=== PATIENT | female | born 1945 | race Caucasian/White ===

== ENCOUNTER 2022-11-03 12:59 | Outpatient (OUT) | payer MEDICARE, SELFPAY ==
--- NOTE | 2022-11-03 16:26 | MISC_ITS ---
CONSULTATION DATE: ??11/03/2022 TO:? Heaven CalderonVICKIE CHIEF COMPLAINT:? Includes left lower back pain. HISTORY:? She reports the pain as being 5-7/10 pain, sharp in character, increased with activities such as standing, walking and performing transitioning maneuvers.? She feels most comfortable in the semi-recumbent position.? She denies any change in bowel and bladder habits or new sensorimotor changes in the lower extremities.? EXAMINATION:? Notable for patient having no clinical radiculopathy or myelopathy involving the lower extremities.? Patient had severe pain with lumbar facet joint loading maneuvers on the left side at L2-3 and L3-4, with associated myofascial spasm of the lumbar paravertebral muscles. IMPRESSION:? Our impression is patient appears to have chronic pain secondary to lumbosacral spondylosis with facet joint loading pain clinically, left greater than right, at L2-3, L3-4; post laminectomy syndrome and lastly myofascial spasm.? RECOMMENDATIONS:? I have recommended a diagnostic left sided L2-3, L3-4 facet joint injection.? Proceed with lumbar spine films, flexion/extension views to evaluate the integrity of the fusion construct.? Placed on baclofen 10 mg pills, half to one b.i.d. for myofascial spasm.? I have asked her to discontinue Lyrica secondary to ineffectiveness. As part of providing excellent, safe, comprehensive care, the following was completed at our patient's visit: 1. A medication reconciliation and review to ensure accurate knowledge of current/active medications, including asking our patients to inform us about any fgcw-pzk-ydoxzfy medications or herbal remedies/nutritional supplements/alternative remedies. 2. A review to specifically ensure our patients have had annual screening for: elevated body mass index (BMI, see intake chart for exact total), tobacco use, screening for depression, and screening for unhealthy alcohol use.? When screening is concerning, patients are provided with education and the specific recommendation to discuss the concerning health issue and treatment options with their primary care provider. BRANDON
== END 2022-11-03 13:00 ==
PROVIDERS: PCP Nurse Practitioner Family; Visit Provider Anesthesiology Pain Medicine
DX: M96.1 Postlaminectomy syndrome, not elsewhere classified (principal); Z98.1 Arthrodesis status; M51.36 Other intervertebral disc degeneration, lumbar region; M54.50 Low back pain, unspecified; M47.815 Spondylosis without myelopathy or radiculopathy, thoracolumbar region; G89.29 Other chronic pain
CPT/HCPCS: 72110; G0463

== ENCOUNTER 2022-11-03 13:56 | Outpatient (OUT) | payer MEDICARE, SELFPAY ==
--- NOTE | 2022-11-03 14:12 | XR_ITS ---
The [address] [address] Patient Name: SAUL GUTIÉRREZ MRN: [id number] date: 1945 Sex: F Assigned Patient Location: [facility] Current Patient Location: [facility] Accession/Order Number: [id number] Exam Date: 11/03/2022 14:15 Report Date: 11/04/2022 06:38 At the request of: MILIND OGDEN Procedure: XR lumbar spine min 4V EXAMINATION: XR lumbar spine min 4V HISTORY: Post Lami Syndrome ; chronic low back pain COMPARISON: CT abdomen pelvis 05/17/2022 min FINDINGS: BONES: Slight left convex curvature lumbar spine. Posterior mechanical fusion L3-4. Mild grade 1 anterolisthesis of L2 on 3, L3 on 4, L4 on 5. No significant change in alignment during flexion and extension. Moderate degenerative facet arthropathy L4-5, L5-S1. DISC SPACES: Moderate narrowing L2-3 through L4-5. Marked narrowing L5-S1. Intervertebral disc spacer L3-4. PARASPINOUS: Negative. No paraspinous abnormality is seen. OTHER: Negative. IMPRESSION: 1. Stable L3-4 posterior fusion without evidence of hardware failure. 2. Multilevel mild grade 1 anterior listhesis without appreciable change during flexion and extension. 3. Multilevel moderate marked degenerative disc disease; not appreciably changed. Electronically authenticated by: OSWALDO NUGENT Date: 11/04/2022 06:38
== END 2022-11-03 13:57 ==
PROVIDERS: PCP Nurse Practitioner Family; Visit Provider Anesthesiology Pain Medicine
DX: M96.1 Postlaminectomy syndrome, not elsewhere classified (principal); Z98.1 Arthrodesis status; M51.36 Other intervertebral disc degeneration, lumbar region
CPT/HCPCS: 72110

== ENCOUNTER 2022-11-24 07:23 | Day surgery (SDC) | payer MEDICARE, SELFPAY ==
[2022-11-24 07:45] VITALS: BP 131/78; PULSE 67; RESP 16; TEMP 36.2
--- NOTE | 2022-11-24 08:20 | W.PM.PROCNOT ---
Date of procedure: 11/24/22 Procedure: Left Lumbar 2/3 & 4/5 facet injection Preop diagnosis includes pain secondary to lumbar spondylosis, Postop diagnosis same Under fluoroscopic guidance Solution injected: 2milliliters Marcaine 0.25% Anesthesia :none Immediate complications none Time out process compliant After informed consent obtained from the patient placed in the Prone proposition . area was prepped and draped in a sterile fashion using betadine. 25 gauge spinal needle inserted over each of the above mentioned target areas . [place] were directed towards the target under fluoroscopic guidance . after encountering each of the targets , no indication of intravascular intraneuronal or intrathecal needle tip placement. Then 0 .5 to 1 Milliliter was injected at each level. [place] removed postoperatively. patient transferred to recovery in stable condition to be discharged home after meeting criteria Surgeon: Jeramie Roberts
[2022-11-24 08:46] VITALS: RESP 20
[2022-11-24] MEDS: BUPIVACAINE HCL 0.25% PF 25 MG/10 ML VIAL 4 ML INJ (08:47)
[2022-11-24 08:48] VITALS: BP 146/78; PULSE 76; O2SAT 96
[2022-11-24 08:49] VITALS: BP 144/65; PULSE 68; O2SAT 95
== END 2022-11-24 08:54 | disposition home or self-care (01) ==
PROVIDERS: PCP Nurse Practitioner Family; Visit Provider Anesthesiology Pain Medicine
DX: M47.816 Spondylosis without myelopathy or radiculopathy, lumbar region (principal)
CPT/HCPCS: 64493; 64494

== ENCOUNTER 2022-12-02 09:21 | Outpatient (OUT) | payer MEDICARE, SELFPAY ==
[2022-12-02 10:35] LABS: Anion Gap 14.7; BUN Creatinine Ratio 35.6; Calcium 9.1 mg/dL (8.5-10.1); Carbon Dioxide 21.7 mmol/L (21.0-32.0); Chloride 109 mmol/L (98-107); Estimated GFR (African America 46 (>=60); Estimated GFR (Non-African Ame 38 (>=60); Glucose 105 mg/dL (74-106); Potassium 4.4 mmol/L (3.5-5.1); Sodium 141 mmol/L (136-145)
== END 2022-12-02 09:22 | disposition home or self-care (01) ==
LOC: LAB 09:23
PROVIDERS: PCP Nurse Practitioner Family; Visit Provider Internal Medicine Interventional Cardiology
DX: I50.20 Unspecified systolic (congestive) heart failure (principal)
CPT/HCPCS: 36415; 80048

== ENCOUNTER 2022-12-10 11:26 | Outpatient (OUT) | payer MEDICARE, SELFPAY ==
--- NOTE | 2022-12-10 11:54 | PM.CN ---
Consult Note: HPI Data of Consult Patient: known to practice within the last 3 years Consult date: 12/10/22 Requesting Physician: JOSE BRAR NP Primary Care Provider: FIDELINA STALEY Consult Narrative Narrative: Here for f/u to left lumbar MBB L2,3,4 done 11/24/22. She received 80% relief of pain with increased fx for several hours post procedure. She would like to proceed with second MBB of same area. Pain is low back worse with standing and sitting. No new sensorimotor or bowel or bladder issues. No adverse med SE. Medications assist patient to be able to complete ADLs. No radicular sx. cc:: CC: JOSE BRAR NP Review of Systems ROS Status of ROS 10 or more systems reviewed and unremarkable except as noted in history and below Musculoskeletal Reports: back pain PFSH PFSH Medical History (Updated 12/10/22 @ 12:03 by JOSE BRAR NP) Surgical History Meds Home Medications and Allergies Home Medications Medication Instructions Recorded Confirmed Type acetaminophen 500 mg oral powder 1,000 mg PO Q6H 11/03/22 11/03/22 History packet baclofen 10 mg tablet 10 mg PO BID 11/03/22 11/03/22 History cholecalciferol (vitamin D3) 125 5,000 unit PO DAILY 11/03/22 11/03/22 History mcg (5,000 unit) capsule diclofenac sodium 50 mg 50 mg PO DAILY 11/03/22 11/03/22 History tablet,delayed release furosemide 40 mg tablet (Lasix) 40 mg PO BID 11/03/22 11/03/22 History krill 2 cap PO DAILY 11/03/22 11/03/22 History uiu-cz7-miy-yal-yc5-cpz-astax 1,500 mg-165 mg-67.5 mg capsule losartan 25 mg tablet 25 mg PO DAILY 11/03/22 11/03/22 History metoprolol succinate 25 mg 12.5 mg PO BID 11/03/22 11/03/22 History tablet,extended release 24 hr multivitamin 1 tab PO DAILY 11/03/22 11/03/22 History oxycodone-acetaminophen 5 mg-325 1 tab PO TID 11/03/22 11/03/22 History mg tablet (Percocet) pantoprazole 40 mg tablet,delayed 40 mg PO BID 11/03/22 11/03/22 History release (Protonix) pramipexole 1 mg tablet (Mirapex) 1 mg PO DAILY 11/03/22 11/03/22 History trazodone 50 mg tablet 50 mg PO DAILY 11/03/22 11/03/22 History vitamin B complex 1 cap PO DAILY 11/03/22 11/03/22 History Allergies Allergy/AdvReac Type Severity Reaction Status Date / Time codeine Allergy Mild Hives Verified 11/03/22 13:36 Exam Constitutional Documenting provider has reviewed patient's vital signs: yes Common normals: no apparent distress, oriented x3, no limitations, healthy appearing, alert and well nourished Orientation/consciousness: Yes awake, Yes oriented to person, Yes oriented to place and Yes oriented to time HENMT Common normals: normocephalic and moist oral mucous membranes Respiratory Common normals: normal respiratory effort, no retractions and no use of accessory muscles Effort & inspection: able to speak in complete sentences and symmetric chest movement Back & Pelvis Lumbar spine/lower back: normal to inspection, ROM limited, pain with ROM, paraspinal muscle tenderness, paraspinal muscle spasm and straight leg raise negative bilaterally Other: muscle strength 4/5 bilat LE with intact sensation positve facet loading left Extremity Common normals: normal to inspection, normal capillary refill and no pedal edema Assessment and Plan Assessment and Plan (1) Lumbar spondylosis: (2) Muscle spasm: Plan schedule repeat left lumbar MBB L2,3,4 under fluoroscopy
== END 2022-12-10 11:27 | disposition home or self-care (01) ==
LOC: PM 11:27
PROVIDERS: PCP Nurse Practitioner Family; Visit Provider Nurse Practitioner
DX: M47.816 Spondylosis without myelopathy or radiculopathy, lumbar region (principal); M62.838 Other muscle spasm
CPT/HCPCS: G0463

== ENCOUNTER 2022-12-15 07:28 | Outpatient (OUT) | payer MEDICARE, SELFPAY ==
--- NOTE | 2022-12-15 | PCN_ITS ---
CARDIAC STRESS TEST Requesting Physician:? Procedure Date:? 12/15/2022 This is a Lexiscan stress test performed at the [facility] on 12/15/2022.? Informed consent was obtained.? The patient was attached to electrocardiographic monitoring.? Baseline vital signs were obtained.? Lexiscan 0.4 mg was infused intravenously followed by administration of Cardiolite.? The patient then went on to obtain myocardial perfusion images. Resting heart rate was 69 BPM and maximum heart rate was 88 BPM. Resting blood pressure was 124/68 and maximum blood pressure was 124/68. Resting ECG showed atrial fibrillation with evidence of left bundle branch block. ECG following infusion of Lexiscan showed atrial fibrillation with left bundle branch block and occasional PVCs. SUMMARY OF THE FINDINGS: 1.? Uninterpretable stress test from an electrocardiographic perspective due to the presence of left bundle branch block.? 2.? Presence of atrial fibrillation throughout the test. 3.? Myocardial perfusion images will be reported separately. OSIELD
--- NOTE | 2022-12-15 07:45 | NM_ITS ---
Patient: SAUL GUTIÉRREZ Exam Date: 12/15/2022 : 1945 Gender:F Ordering : DR JRESON PANIAGUA M.D. Admission #: [id number] Family : DR. Jeramie Roberts . Order #: [id number] CLICK HERE TO VIEW EXAM RADIOLOGY REPORT PROCEDURE: NM WINTER PERF SPECT REST STR COMPARISON: None. INDICATIONS: Palpitations, atrial fibrillation TECHNIQUE: Exam Description: Stress/Rest one day protocol gated SPECT Rest Imagin.8 mCi Tc-99m Cardiolite IV on 12/15/2022 Stress Imaging 30.7 mCi Tc-99m Cardiolite IV on 12/15/2022 Exercise Protocol: 0.4 mg Lexiscan given IV Heart Rate (bpm): Rest: 69 Max: 88 PMHR: 61 Blood Pressure: Rest: 124/68 Max: 124/68 Symptoms: Rest and peak stress ECG findings were equivocal and the exercise portion of the study was Equivocal per attending physician Dr. Maurice . For more details please see separate cardiac stress test report. FINDINGS: QUALITY OF STUDY: Good. PERFUSION DEFECT: LOCATION: Basal anterior. Mid-anterior. Apical inferior. [place]. SIZE: Medium (3-4 segments). SEVERITY: Severe. TYPE: Mixed. WALL MOTION: Moderate hypokinesis: LV SIZE: Normal. 94 mL. TID / TCD: None; 0.9 LVEF: Abnormal. Calculated EF 35%. SUMMARY: Myocardial perfusion imaging study has ABNORMAL findings. CONCLUSION: 1. Moderate sized area of moderate to severe perfusion abnormality in the anterior wall, LAD distribution demonstrating partial redistribution. Partial reversible ischemia is suspected and further evaluation is recommended 2. 3. Low left ventricular ejection fraction of 35% 4. Equivocal exercise test Dictated by: Patrick Bravo MD on 12/16/2022 at 09:39 Approved by: Patrick Bravo MD on 12/16/2022 at 10:06
[2022-12-15] MEDS: REGADENOSON 0.4 MG/5 ML SYRINGE IV (09:33)
== END 2022-12-15 07:29 | disposition home or self-care (01) ==
LOC: NM 07:28
PROVIDERS: PCP Nurse Practitioner Family; Visit Provider Internal Medicine Interventional Cardiology
DX: I50.20 Unspecified systolic (congestive) heart failure (principal); I48.91 Unspecified atrial fibrillation; I44.7 Left bundle-branch block, unspecified; R00.2 Palpitations; R06.02 Shortness of breath
CPT/HCPCS: 78452; 93017; A9500; J2785

== ENCOUNTER 2022-12-15 11:05 | Outpatient (OUT) | payer MEDICARE, SELFPAY ==
[2022-12-15 11:43] LABS: Anion Gap 11.1; BUN Creatinine Ratio 23.3; Calcium 9.1 mg/dL (8.5-10.1); Carbon Dioxide 26.5 mmol/L (21.0-32.0); Chloride 110 mmol/L (98-107); Estimated GFR (African America 41 (>=60); Estimated GFR (Non-African Ame 34 (>=60); Glucose 100 mg/dL (74-106); Potassium 4.6 mmol/L (3.5-5.1); Sodium 143 mmol/L (136-145)
== END 2022-12-15 11:06 | disposition home or self-care (01) ==
LOC: LAB 11:07
PROVIDERS: PCP Nurse Practitioner Family; Visit Provider Internal Medicine Interventional Cardiology
DX: I11.0 Hypertensive heart disease with heart failure (principal); I50.9 Heart failure, unspecified
CPT/HCPCS: 36415; 80048

== ENCOUNTER 2022-12-24 09:24 | Outpatient (OUT) | payer MEDICARE, SELFPAY ==
[2022-12-24 10:17] LABS: BUN Creatinine Ratio 30.3; Calcium 9.1 mg/dL (8.5-10.1); Carbon Dioxide 23.4 mmol/L (21.0-32.0); Chloride 109 mmol/L (98-107); Estimated GFR (African America 47 (>=60); Estimated GFR (Non-African Ame 39 (>=60); Glucose 99 mg/dL (74-106); Potassium 4.4 mmol/L (3.5-5.1); Sodium 141 mmol/L (136-145)
== END 2022-12-24 09:25 | disposition home or self-care (01) ==
PROVIDERS: PCP Nurse Practitioner Family; Visit Provider Internal Medicine Interventional Cardiology
DX: I50.20 Unspecified systolic (congestive) heart failure (principal)
CPT/HCPCS: 36415; 80048

== ENCOUNTER 2023-02-02 06:57 | Day surgery (SDC) | payer MEDICARE, SELFPAY ==
[2023-02-02 07:26] VITALS: BP 95/60; PULSE 72; RESP 16; TEMP 36.2; O2SAT 98
[2023-02-02 08:00] VITALS: PULSE 63; RESP 18; O2SAT 94
[2023-02-02] MEDS: BUPIVACAINE HCL 0.25% PF 25 MG/10 ML VIAL INJ (08:00)
[2023-02-02 08:01] VITALS: BP 92/62
[2023-02-02 08:03] VITALS: BP 94/52; PULSE 70; RESP 18; O2SAT 93
--- NOTE | 2023-02-02 09:04 | P.ON_ITS ---
Date of procedure: 02/02/23 Pre-op diagnosis: lumbar spondylosis Post-op diagnosis: same as pre-op Procedure: Left lumbar 2/3, 4/5 facet injection Under fluoroscopic guidance Solution injected: 2millilitersMarcaine 0.25% Anesthesia :none Immediate complications none Time out process compliant After informed consent obtained from the patient placed in the Prone proposition . area was prepped and draped in a sterile fashion using betadine. 25 gauge spinal needle inserted over each of the above mentioned target areas . [place] were directed towards the target under fluoroscopic guidance . after encountering each of the targets , no indication of intravascular intraneuronal or intrathecal needle tip placement. Then 0 .5 to 1 Milliliter was injected at each level. [place] removed postoperatively. patient transferred to recovery in stable condition to be discharged home after meeting criteria Anesthesia: MAC Surgeon: Jeramie Roberts Condition: stable
== END 2023-02-02 08:08 | disposition home or self-care (01) ==
PROVIDERS: PCP Nurse Practitioner Family; Visit Provider Anesthesiology Pain Medicine
DX: M47.816 Spondylosis without myelopathy or radiculopathy, lumbar region (principal)
CPT/HCPCS: 64493; 64494

== ENCOUNTER 2023-02-11 08:39 | Outpatient (OUT) | payer MEDICARE, SELFPAY ==
--- NOTE | 2023-02-11 08:49 | P.CN_ITS ---
Consult Note: HPI Data of Consult Patient: known to practice within the last 3 years Requesting Physician: JOSE BRAR NP Primary Care Provider: FIDELINA STALEY Consult Narrative Reason for consult: procedure f/u Narrative: Radha Cornell a pleasant 77 year old female presents to office for evaluation of chronic low back pain. Recently underwent Left lumbar 2/3, 4/5 facet injection #2 with >80% functional improvement and pain relief immediately following and for hours after the procedure. Today rating pain 3/10 in left lower back. Alberto rodriguez would like to discuss thermal RFA under fluoroscopy. cc:: CC: JOSE BRAR NP Review of Systems ROS Status of ROS 10 or more systems reviewed and unremarkable except as noted in history and below Musculoskeletal Reports: back pain PFSH PFSH Medical History Surgical History Meds Home Medications and Allergies Home Medications Medication Instructions Recorded Confirmed Type acetaminophen 500 mg oral powder 1,000 mg PO Q6H 11/03/22 02/02/23 History packet baclofen 10 mg tablet 10 mg PO BID 11/03/22 02/02/23 History cholecalciferol (vitamin D3) 125 5,000 unit PO DAILY 11/03/22 02/02/23 History mcg (5,000 unit) capsule diclofenac sodium 50 mg 50 mg PO DAILY 11/03/22 02/02/23 History tablet,delayed release furosemide 40 mg tablet (Lasix) 40 mg PO BID 11/03/22 02/02/23 History krill 2 cap PO DAILY 11/03/22 02/02/23 History fsn-yo2-utj-omx-cl2-prl-astax 1,500 mg-165 mg-67.5 mg capsule losartan 25 mg tablet 25 mg PO DAILY 11/03/22 02/02/23 History metoprolol succinate 25 mg 12.5 mg PO BID 11/03/22 02/02/23 History tablet,extended release 24 hr multivitamin 1 tab PO DAILY 11/03/22 02/02/23 History oxycodone-acetaminophen 5 mg-325 1 tab PO TID 11/03/22 02/02/23 History mg tablet (Percocet) pantoprazole 40 mg tablet,delayed 40 mg PO BID 11/03/22 02/02/23 History release (Protonix) pramipexole 1 mg tablet (Mirapex) 1 mg PO DAILY 11/03/22 02/02/23 History trazodone 50 mg tablet 50 mg PO DAILY 11/03/22 02/02/23 History vitamin B complex 1 cap PO DAILY 11/03/22 02/02/23 History oxycodone-acetaminophen 5 mg-325 1 tab PO TID PRN pain #90 tabs 01/08/23 02/02/23 Rx mg tablet (Percocet) naloxone 4 mg/actuation nasal 4 mg intranasal Q3M PRN opioid 02/11/23 Rx spray (Narcan) overdose #2 ea oxycodone-acetaminophen 5 mg-325 1 tab PO TID PRN pain #90 tabs 02/11/23 Rx mg tablet (Percocet) Allergies Allergy/AdvReac Type Severity Reaction Status Date / Time codeine Allergy Mild Hives Verified 11/03/22 13:36 Exam Constitutional Documenting provider has reviewed patient's vital signs: yes Common normals: no apparent distress, oriented x3, healthy appearing, alert and well nourished General appearance: cooperative HENAR Common normals: normocephalic, hearing grossly normal bilaterally and moist oral mucous membranes Head and scalp: normocephalic Eye Common normals: PERRL Pupil: PERRL Neck & C-Spine Common normals: full ROM General: normal visual inspection Chest Common normals: inspection of chest normal Respiratory Common normals: normal respiratory effort, no retractions and no use of accessory muscles Back & Pelvis Lumbar spine/lower back: ROM limited, pain with ROM and straight leg raise negative bilaterally Other: positive facet loading left predominately axial low back pain without radiculopathy Extremity Common normals: normal to inspection and full ROM Neuro Common normals: oriented x3, CN's II-XII intact bilaterally, moves all extremities, no focal motor deficits, no sensory deficits noted, deep tendon reflexes 2+ bilaterally and gait normal Sensorium/orientation: alert Motor exam: strength 5/5 throughout and no movement abnormalities noted Psych Common normals: mental status grossly normal, thought process normal, cooperative, affect normal, speech normal and activity/motor behavior normal Speech: normal speech Thought process: normal thought process Results Additional Findings Additional findings: I have checked an OARRS report on this patient today and there are no aberrancies noted in the prescribing history.?? A drug screen was completed and reviewed within the last year, and if there has not been a drug screen completed we ordered one today to monitor higher risk, state monitored pain medication use. As part of providing excellent, safe, comprehensive care, the following was completed at our patient's visit: 1. A medication reconciliation and review to ensure accurate knowledge of current/active medications, including asking our patients to inform us about any rxnh-kxo-epiywmw medications or herbal remedies/nutritional supplements/alternative remedies. 2. A review to specifically ensure our patients have had annual screening for: elevated body mass index (BMI), tobacco use, screening for depression, and screening for unhealthy alcohol use. When screening is concerning, patients are provided with education and the specific recommendation to discuss the concerning health issue and treatment options with their primary care provider. Assessment and Plan Assessment and Plan (1) Lumbar spondylosis: Assessment and Plan: The patient has had over 3 months of moderate to severe low back pain with functional impairment and inadequate response to conservative care including NSAIDS (unless there are contraindication such as concurrent blood thinners), multiple oral or topical pain medications, and home exercise program/physical therapy.? Patient has completed >6 weeks of guided home exercise program and/or formal physical therapy program without relief of their symptoms.? I have reviewed the imaging of the lumbar spine and no red flags were identified.? The imaging reveals radiographic findings consistent with lumbar facet arthropathy The Oswestry Disability Index was completed, and the patient scored a 56%.? The patient noted the following:?? moderate pain, can only lift very light weights, pain prevents her from walking more than 0.5 miles, pain prevents her from sitting more than 30 minutes, pain prevents her from standing more than 30 minutes, pain interferes with sleep and social life. We discussed the risks and benefits of the procedure with the patient ?The procedure will be completed with fluoroscopic guidance.? (2) Muscle spasm: (3) Chronic prescription opiate use: Assessment and Plan: I feel these medications are improving the patient's quality of life and allow them to tolerate activities of daily living as well as participate in recreational activity.? The patient does not report intolerable side effects. The patient is NOT opioid naive and non-pharmacologic and non-opioid treatment has failed to significantly relieve the patient's pain and improve functionality. The patient has a diagnosis that is related to a somatic or visceral pain etiology. ? ?? I reviewed with the patient the potential risks and side effects with the use of? opioid medications including but not limited to respiratory depression,? sedation, and even . I verified the patient has access to naloxone should? these effects occur. I advised the patient to avoid the use of any other? sedation substances including alcohol, THC, and benzodiazepines while? taking opioid medications due to the risk of compounding side effects and? detrimental outcomes. I reviewed the [employer], pain treatment agreement, urine? drug screen, and opioid start talking forms. The patient was advised to let? their family know they had Naloxone in case they would need to administer? the medication.? Plan yearly CHAPERONE reviewed and signed UDS updated today proceed with thermal RFA at Left lumbar 2/3, 4/5 under fluoroscopy with IV sedation as previously tolerated with other RFAs in the past refill and continue percocet 5-325 TID PRN, discussed taking BID-TID as pain improves as a result of the procedure narcan discussed and prescribed continue current medication regimen, tolerating well without side effects f/u 1 month after
== END 2023-02-11 08:40 | disposition home or self-care (01) ==
PROVIDERS: PCP Nurse Practitioner Family; Visit Provider Nurse Practitioner
DX: M47.816 Spondylosis without myelopathy or radiculopathy, lumbar region (principal); M62.838 Other muscle spasm; Z79.891 Long term (current) use of opiate analgesic
CPT/HCPCS: G0463

== ENCOUNTER 2023-03-16 10:59 | Day surgery (SDC) | payer MEDICARE, SELFPAY ==
[2023-03-16 12:17] VITALS: BP 116/74; PULSE 70; RESP 16; TEMP 36; O2SAT 98
[2023-03-16] MEDS: 0.9 % SODIUM CHLORIDE 500 ML IV (12:23)
[2023-03-16] MEDS: BUPIVACAINE HCL 0.25% PF 25 MG/10 ML VIAL 4 ML INJ (13:35)
[2023-03-16] MEDS: METHYLPREDNISOLONE ACETATE 40 MG/ML VIAL INJ (13:36)
[2023-03-16] MEDS: LIDOCAINE HCL 2% 400 MG/20 ML MDV 10 ML INJ (13:36)
--- NOTE | 2023-03-16 13:50 | W.PM.PROCNOT ---
Date of procedure: 03/16/23 Pre-op diagnosis: Lumbar Spondylosis Post-op diagnosis: same as pre-op Procedure: Left Lumbar 2/3, 4/5 Radiofrequency ablation Under fluoroscopic guidance Rhizotomy was created using radio frequency ablation at 80?C for 90 seconds 1 to 2 lesions created at each site. Post lesioning injection of 2 mL each of 0.25% Marcaine and 2% lidocaine with Depo-Medrol 40mg. 0.5 to 1 mL injected at each site IV in place yes If Intravenous fluids: NS at KVO Anesthesia local 2% lidocaine for Anesthesia Other: MAC Timeout process compliant After informed consent obtained.Patient brought to the procedure room placed in the prone position skin overlying the area was prepped and draped in a sterile fashion using betadine. 25 gauge needle was used to create a skin wheal over each of the targeted areas utilizing 2% lidocaine. A rhizotomy needle with a 10 mm active tip was inserted over each of the anesthetized areas and directed towards each of the medial branches accomplished under fluoroscopic guidance. after encountering the same we had positive sensory stimulation, negative motor stimulation was noted. lesions were then created. Post lesioning, steroid solution was injected needles removed. Patient was transferred to recovery room in stable condition to be discharged home after meeting criteria. Anesthesia: MAC Surgeon: Jeramie Roberts Condition: stable
[2023-03-16 13:51] VITALS: BP 99/64; PULSE 71; RESP 16; TEMP 36.8; O2SAT 98
[2023-03-16 13:56] VITALS: BP 104/55; PULSE 67; RESP 16; TEMP 36.8; O2SAT 97
== END 2023-03-16 14:13 | disposition home or self-care (01) ==
LOC: SURGOUT 11:00
PROVIDERS: PCP Nurse Practitioner Family; Visit Provider Anesthesiology Pain Medicine
DX: M47.816 Spondylosis without myelopathy or radiculopathy, lumbar region (principal)
CPT/HCPCS: 64635; 64636; J1030; J2704

== ENCOUNTER 2023-04-15 08:52 | Outpatient (OUT) | payer MEDICARE, SELFPAY ==
--- NOTE | 2023-04-15 08:30 | NM_ITS ---
[address] [address] Patient Name: SAUL GUTIÉRREZ MRN: [id number] date: 1945 Sex: F Assigned Patient Location: [place] Current Patient Location: [place] Accession/Order Number: [id number] Exam Date: 04/15/2023 08:45 Report Date: 04/15/2023 11:02 At the request of: JERSON PANIAGUA Procedure: ND muga EXAMINATION: ND muga HISTORY: HEART FAILURE WITH REDUCED EJECTION FRACTION COMPARISON: No relevant comparison available. TECHNIQUE: After obtaining the patient's consent, Tc-99m pertechnetate labeled autologous red blood cells were injected intravenously using the in vivo method. Planar wall motion imaging was performed, followed by quantitative analysis and left ventricular ejection fraction determination. FINDINGS: WALL MOTION: Diffuse hypokinesis. Left ventricular ejection fraction calculated to be 32% VENTRICLES: Prominent size OTHER: 556 beats accepted. 400 beats rejected. Heart rate 68 bpm ND/ND muga IMPRESSION: Low left ventricular ejection fraction of 32% Electronically authenticated by: YVES JOHNSON Date: 04/15/2023 11:02
== END 2023-04-15 08:53 | disposition home or self-care (01) ==
LOC: NM 08:53
PROVIDERS: PCP Nurse Practitioner Family; Visit Provider Internal Medicine Interventional Cardiology
DX: I50.20 Unspecified systolic (congestive) heart failure (principal); I50.21 Acute systolic (congestive) heart failure
CPT/HCPCS: 78472; A9560

== ENCOUNTER 2023-04-29 07:53 | Outpatient (OUT) | payer MEDICARE, SELFPAY ==
--- NOTE | 2023-04-29 08:06 | PM.CN ---
Consult Note: HPI Data of Consult Patient: known to practice within the last 3 years Requesting Physician: Carmen Ramey NP Primary Care Provider: FIDELINA STALEY Consult Narrative Reason for consult: RFA f/u Narrative: Radha Cornell a pleasant 77 year old female presents for evaluation and management of chronic low back pain. Recently underwent Left Lumbar 2/3, 4/5 Radiofrequency ablation, noticing 30% improvement in symptoms at this time now noticing more pain over left superior gluteal nerve. Pain today 5/10 ache cc:: CC: Carmen Ramey NP Review of Systems ROS Status of ROS 10 or more systems reviewed and unremarkable except as noted in history and below PFSH [facility] Medical History Acid reflux ?K21.9 - Gastro-esophageal reflux disease without esophagitis (ICD-10) Anemia ?D64.9 - Anemia, unspecified (ICD-10) Atrial fibrillation ?I48.91 - Unspecified atrial fibrillation (ICD-10) Bruising ?T14.8XXA - Other injury of unspecified body region, initial encounter (ICD-10) Fibromyalgia ?M79.7 - Fibromyalgia (ICD-10) Heartburn ?R12 - Heartburn (ICD-10) Low back pain ?M54.50 - Low back pain, unspecified (ICD-10) Neck pain ?M54.2 - Cervicalgia (ICD-10) Rectocele ?N81.6 - Rectocele (ICD-10) Sleep apnea ?G47.30 - Sleep apnea, unspecified (ICD-10) Upper back pain ?M54.9 - Dorsalgia, unspecified (ICD-10) Surgical History H/O heart surgery ?Z98.890 - Other specified postprocedural states (ICD-10) H/O: hysterectomy ?Z90.710 - Acquired absence of both cervix and uterus (ICD-10) History of bariatric surgery ?Z98.84 - Bariatric surgery status (ICD-10) Hx of cholecystectomy ?Z90.49 - Acquired absence of other specified parts of digestive tract (ICD-10) S/P lumbar spine operation ?Z98.890 - Other specified postprocedural states (ICD-10) S/P shoulder surgery ?Z98.890 - Other specified postprocedural states (ICD-10) Meds Home Medications and Allergies Home Medications Medication Instructions Recorded Confirmed Type acetaminophen 500 mg oral powder 1,000 mg PO Q6H 11/03/22 03/16/23 History packet baclofen 10 mg tablet 10 mg PO BID 11/03/22 03/16/23 History cholecalciferol (vitamin D3) 125 5,000 unit PO DAILY 11/03/22 03/16/23 History mcg (5,000 unit) capsule diclofenac sodium 50 mg 50 mg PO DAILY 11/03/22 03/16/23 History tablet,delayed release furosemide 40 mg tablet (Lasix) 40 mg PO BID 11/03/22 03/16/23 History krill 2 cap PO DAILY 11/03/22 03/16/23 History [id number]-astax 1,500 mg-165 mg-67.5 mg capsule losartan 25 mg tablet 25 mg PO DAILY 11/03/22 03/16/23 History metoprolol succinate 25 mg 12.5 mg PO BID 11/03/22 03/16/23 History tablet,extended release 24 hr multivitamin 1 tab PO DAILY 11/03/22 03/16/23 History oxycodone-acetaminophen 5 mg-325 1 tab PO TID 11/03/22 03/16/23 History mg tablet (Percocet) pantoprazole 40 mg tablet,delayed 40 mg PO BID 11/03/22 03/16/23 History release (Protonix) pramipexole 1 mg tablet (Mirapex) 1 mg PO DAILY 11/03/22 03/16/23 History trazodone 50 mg tablet 50 mg PO DAILY 11/03/22 03/16/23 History vitamin B complex 1 cap PO DAILY 11/03/22 03/16/23 History oxycodone-acetaminophen 5 mg-325 1 tab PO TID PRN pain #90 tabs 01/08/23 03/16/23 Rx mg tablet (Percocet) naloxone 4 mg/actuation nasal 4 mg intranasal Q3M PRN opioid 02/11/23 03/16/23 Rx spray (Narcan) overdose #2 ea oxycodone-acetaminophen 5 mg-325 1 tab PO TID PRN pain #90 tabs 09/14/23 10/17/23 Rx mg tablet (Percocet) oxycodone-acetaminophen 5 mg-325 1 tab PO TID PRN pain #90 tabs 03/17/23 Rx mg tablet (Percocet) oxycodone-acetaminophen 5 mg-325 1 tab PO TID PRN pain #90 tabs 04/21/23 Rx mg tablet (Percocet) Allergies Allergy/AdvReac Type Severity Reaction Status Date / Time codeine Allergy Mild Hives Verified 03/16/23 12:14 Exam Constitutional Documenting provider has reviewed patient's vital signs: yes Common normals: no apparent distress, oriented x3, healthy appearing, alert and well nourished General appearance: cooperative HENMT Common normals: normocephalic, hearing grossly normal bilaterally and moist oral mucous membranes Head and scalp: normocephalic Eye Common normals: PERRL Pupil: PERRL Neck & C-Spine Common normals: full ROM General: normal visual inspection Chest Common normals: inspection of chest normal Respiratory Common normals: normal respiratory effort, no retractions and no use of accessory muscles Back & Pelvis Lumbar spine/lower back: ROM limited, pain with ROM and straight leg raise negative bilaterally Other: positive facet loading negative tender to touch and pain with activity and when laying on left side over area marked below positive fabers to left, pain with [place] and thigh thrust Back image (female): 1. Extremity Common normals: normal to inspection and full ROM Neuro Common normals: oriented x3, CN's II-XII intact bilaterally, moves all extremities, no focal motor deficits, no sensory deficits noted and deep tendon reflexes 2+ bilaterally Sensorium/orientation: alert Motor exam: strength 5/5 throughout and no movement abnormalities noted Psych Common normals: mental status grossly normal, thought process normal, cooperative, affect normal, speech normal and activity/motor behavior normal Speech: normal speech Thought process: normal thought process Results Additional Findings Additional findings: I have checked an [place] report on this patient today and there are no aberrancies noted in the prescribing history.?? A drug screen was completed and reviewed within the last year, and if there has not been a drug screen completed we ordered one today to monitor higher risk, state monitored pain medication use. As part of providing excellent, safe, comprehensive care, the following was completed at our patient's visit: 1. A medication reconciliation and review to ensure accurate knowledge of current/active medications, including asking our patients to inform us about any [id number] medications or herbal remedies/nutritional supplements/alternative remedies. 2. A review to specifically ensure our patients have had annual screening for: elevated body mass index (BMI), tobacco use, screening for depression, and screening for unhealthy alcohol use. When screening is concerning, patients are provided with education and the specific recommendation to discuss the concerning health issue and treatment options with their primary care provider. Assessment and Plan Assessment and Plan (1) Lumbar spondylosis: (2) Muscle spasm: (3) Chronic prescription opiate use: (4) Unspecified mononeuropathy of left lower limb: Assessment and Plan: consider left superior gluteal nerve block working towards thermal RFA for left superior gluteal neuritis if pain persists Plan continue current medications, can take baclofen 5-10mg BID PRN narcan previously prescribed and discussed f/u 3 months
== END 2023-04-29 07:54 | disposition home or self-care (01) ==
LOC: PM 07:53
PROVIDERS: PCP Nurse Practitioner Family; Visit Provider Nurse Practitioner
DX: M47.816 Spondylosis without myelopathy or radiculopathy, lumbar region (principal); M62.838 Other muscle spasm; Z79.891 Long term (current) use of opiate analgesic; G57.92 Unspecified mononeuropathy of left lower limb
CPT/HCPCS: G0463

== ENCOUNTER 2023-06-28 11:09 | Outpatient (OUT) | payer MEDICARE, SELFPAY ==
--- OUTSIDE RECORDS SUMMARY | 2023-06-28 11:13 | XMS_ITS | CCD ---
Author Name Unknown Address [address] [place] [address] Organization [facility] Care Team Providers Care Check Processor Name Role Phone JOHNSON ., DR JAYLON Ruelas Admitting Unavailable ORNELAS ., DR JAYLON Ruelas Attending Unavailable LUÍS, HEAVEN Primary Care Unavailable ORNELAS ., DR JAYLON Ruelas Consulting Unavailable MICHELINE MOLINA Consulting Unavailable ORNELAS ., DR JAYLON Ruelas Admitting Unavailable ORNELAS ., DR JAYLON Ruelas Attending Unavailable [facility], [facility] Primary Care Unavailable RODRIGUEZ ., SABRINA Consulting Unavailable ORNELAS ., DR JAYLON Ruelas Admitting Unavailable ORNELAS ., DR JAYLON Ruelas Attending Unavailable [facility], HEAVEN Primary Care Unavailable RODRIGUEZ ., SABRINA Consulting Unavailable LUÍS, HEAVEN Primary Care Unavailable LAKSHMIPATHY ., NARENDRANATH Admitting Charity vailable LAKSHMIPATHY ., NARENDRANATH Attending Charity vailable LAKSHMIPATHY ., NARENDRANATH Consulting Charity vailable LAKSHMIPATHY ., NARENDRANATH Admitting Charity vailable LAKSHMIPATHY ., NARENDRANATH Attending Charity vailable [facility], HEAVEN Primary Care Unavailable LUÍS, HEAVEN Admitting Unavailable LUÍS, HEAVEN Attending Unavailable LUÍS, HEAVEN Primary Care Unavailable DR SHAR VALENZUELA Consulting Unavailable LUÍS, HEAVEN Consulting Unavailable LUÍS, HEAVEN Primary Care Unavailable DAREK ., KEILY Admitting Unavailable DAREK ., KEILY Attending Unavailable DAREK Salmon, KEILY Consulting Unavailable KELSIE DEL ANGEL Consulting Unavailable VIRGIL FOLEY Attending Unavailable BIRD SHOEMAKER Attending Unavailable BIRD SHOEMAKER Attending Unavailable ELTAHAWY, EHAB Referring Unavailable ELTAHAWY, EHAB Attending Unavailable EL[place]HAWY, EHAB Admitting Unavailable ELTAHAWY, EHAB Attending Unavailable [place]WY, EHAB Attending Unavailable Luís IMPORT/EXPORT AGENT-MID LEVEL PRACTITIONER, Heaven S Primary Care Provider Allergies Allergy Classification Reported Allergen(s) Allergy Type Date of Onset Reaction(s) Facility (2 sources) Codeine; Translations: [CODEINE] Drug Allergy 06-06-2014 [facility] Repository (2 sources) Lisinopril; Translations: [LISINOPRIL] Drug Allergy 10-19-2014 [facility] Repository (1 source) Codeine Drug Allergy 06-06-[address] [facility] Medications Current Medications Medication Drug Class(es) Dates Sig (Normalized) Sig (Original) acetaminophen 325 mg / oxyCODONE hydrochloride 5 mg oral tablet (1 source) Opioid Agonist take 1 tablet by mouth every four hours as needed for pain oxyCODONE-acetamino phen (PERCOCET) 5-325 mg per tablet Take 1 tablet by mouth every 4 (four) hours as needed for pain. 0 Active b complex vitamins capsule (1 source) take 1 capsule by mouth in the morning b complex vitamins capsule Take 1 capsule by mouth in the morning. 0 Active Calcium Carbonate (1 source) calcium carbonat e (CALCIUM 500 ORAL) Take by mouth daily. 0 Active cholecalciferol 0.125 mg oral tablet (1 source) Vitamin D cholecalciferol, vitamin D3, 5,000 units tablet 1 tablet (5,000 Units total) in the morning. 0 Active diclofenac sodium 50 mg delayed release oral tablet (1 source) Nonsteroidal Anti-inflammatory Drug take 1 tablet by mouth in the morning diclofenac (VOLTAREN) 50 mg EC tablet Take 1 tablet (50 mg total) by mouth in the morning. 0 Active ferrous sulfate 325 mg oral tablet (1 source) take 1 tablet by mouth once daily at breakfast ferrous sulfate 325 (65 FE) mg tablet Take 1 tablet (325 mg total) by mouth daily with breakfast. 0 Active folic acid/multivit-min/lut ein (CENTRUM SILVER ORAL) (1 source) take 1 tablet by mouth once daily folic acid/multivit-min/l utein (CENTRUM SILVER ORAL) Take 1 tablet by mouth daily. 0 Active furosemide 40 mg oral tablet (2 sources) Loop Diuretic Start: 03-18-2023 End: 06-08-2023 take 1 tablet by mouth once daily furosemide (LASIX) 40 mg tablet Take 1 tablet (40 mg total) by mouth daily. PT NEEDS APPT AND LABS FOR FURTHER REFILLS 30 tablet 1 06/08/2023 Active lactobacillus acidophilus [id number] unt oral capsule (1 source) take 1 tablet by mouth once daily Lactobacillus acidophilus 10 billion cell capsule Take 1 tablet by mouth daily. 0 Active 24 hr metoprolol succinate 50 mg extended release oral tablet (1 source) beta-Adrenergic Minnie Start: 04-28-2023 take 1 tablet by mouth every twenty-four hours in the morning metoprolol succinate XL (TOPROL XL) 50 mg 24 hr tablet TAKE 1 TABLET (50 MG TOTAL) BY MOUTH IN THE MORNING. 90 tablet 0 04/28/2023 Active pantoprazole 40 mg oral granules (1 source) Proton Pump Inhibitor take 1 dose by mouth in the morning pantoprazole (PROTONIX) [address] for susp in packet Take 1 packet (40 mg total) by mouth in the morning. 0 Active pramipexole dihydrochloride 1 mg oral tablet (1 source) Nonergot Dopamine Agonist take 1.5 tablets by mouth in the morning pramipexole (MIRAPEX) 1 mg tablet Take 1.5 tablets (1.5 mg total) by mouth in the morning. 0 Active pregabalin 50 mg oral capsule (1 source) Start: 04-27-2022 pregabalin (LYRICA) 50 mg capsule 1 capsule (50 mg total) once daily at bedtime. 0 04/27/2022 Active spironolactone 25 mg oral tablet (1 source) Aldosterone Antagonist Start: 06-15-2022 take 1 tablet by mouth in the morning spironolactone (ALDACTONE) 25 mg tablet Indications: Chronic systolic CHF (congestive heart failure) ([facility]) Take 1 tablet (25 mg total) by mouth in the morning. 90 tablet 3 06/15/2022 Active sucralfate 1000 mg oral tablet (1 source) Aluminum Complex take 1 tablet by mouth at bedtime sucralfate (CARAFATE) 1 gram tablet Take 1 tablet (1 g total) by mouth in the morning and 1 tablet (1 g total) before bedtime. 0 Active traZODone hydrochloride 50 mg oral tablet (1 source) Serotonin Reuptake Inhibitor take 3 tablets by mouth once daily as needed traZODone (DESYREL) 50 mg tablet Take 3 tablets (150 mg total) by mouth nightly as needed. 0 Active ubidecarenone 100 mg oral capsule (1 source) take 1 capsule by mouth once in the morning coenzyme Q10 100 mg capsule Take 1 capsule (100 mg total) by mouth in the morning. 0 Active valsartan 40 mg oral tablet (1 source) Angiotensin 2 Receptor Minnie Start: 08-10-2022 take 0.5 tablet by mouth in the morning valsartan (DIOVAN) 40 mg tablet Take 0.5 tablets (20 mg total) by mouth in the morning. 45 tablet 3 08/10/2022 Active Problems Active Problems Problem Classification Problem Date Documented Da te Episodic/Chronic Anxiety disorders (1 source) Anxiety; Translations: [Anxiety disorder, unspecified] Onset: 06-05-2022 06-05-2022 Chronic Cardiac dysrhythmias (5 sources) Unspecified atrial fibrillation; Translations: [Persistent atrial fibrillation] Onset: 06-06-2014 Resolved: 10-11-2020 10-11-2020 Chronic Conduction disorders (2 sources) Left bundle branch block; Translations: [Left bundle-branch block, unspecified] Onset: 07-13-2014 Resolved: 02-24-2018 10-11-2020 Chronic Congestive heart failure; nonhypertensive (6 sources) Acute systolic (congestive) heart failure; Translations: [Unspecified systolic (congestive) heart failure] Onset: 08-25-2018 Chronic Deficiency and other anemia (1 source) Anemia, unspecified; Translations: [ANEMIA UNSPECIFIED] Onset: 09-26-2022 Episodic Diabetes mellitus without complication (1 source) Other abnormal glucose; Translations: [OTHER ABNORMAL GLUCOSE] Onset: 09-26-2022 Episodic Essential hypertension (6 sources) Essential (primary) hypertension; Translations: [Essential hypertension] Onset: 02-18-2022 Chronic Other circulatory disease (1 source) Presence of other cardiac implants and grafts; Translations: [Other specified cardiac device in situ] Onset: 11-03-2018 10-11-2020 Chronic Other hereditary and degenerative nervous system conditions (1 source) Restless legs; Translations: [Restless legs syndrome] Onset: 06-05-2022 06-05-2022 Chronic Other nervous system disorders (5 sources) Other chronic pain; Translations: [OTHER CHRONIC PAIN] Onset: 06-09-2022 Chronic Other nutritional; endocrine; and metabolic disorders (1 source) Obesity; Translations: [Obesity, unspecified] Onset: 10-11-2020 10-11-2020 Chronic Other nutritional; endocrine; and metabolic disorders (1 source) Body mass index 30+ - obesity; Translations: [Body mass index (BMI) 34.0-34.9, adult] Onset: 02-18-2022 02-18-2022 Chronic Darleen-; endo-; and myocarditis; cardiomyopathy (except that caused by tuberculosis or sexually transmitted disease) (4 sources) Dilated cardiomyopathy; Translations: [Cardiomyopathy] Onset: 06-06-2014 Resolved: 08-25-2018 Chronic Residual codes; unclassified (1 source) Sleep apnea, unspecified; Translations: [SLEEP APNEA UNSPECIFIED] Onset: 05-19-2022 Chronic Residual codes; unclassified (1 source) Obstructive sleep apnea of adult; Translations: [Obstructive sleep apnea (adult) (pediatric)] Onset: 07-02-2016 10-11-2020 Chronic Spondylosis; intervertebral disc disorders; other back problems (7 sources) Other spondylosis with radiculopathy, lumbar region; Translations: [Other intervertebral disc degeneration, lumbar region] Onset: 11-04-2021 Chronic Unclassified (1 source) LOW BACK PAIN, UNSPECIFIED; Translations: [LOW BACK PAIN, UNSPECIFIED] Onset: 11-06-2021 Unclassified (2 sources) Longstanding persistent atrial fibrillation; Translations: [Longstanding persistent atrial fibrillation] Onset: 01-25-2023 Unclassified (2 sources) Permanent atrial fibrillation; Translations: [Permanent atrial fibrillation] Onset: 01-18-2023 Past or Other Problems Problem Classification Problem Date Documented Da te Episodic/Chronic Abdominal hernia (2 sources) Ventral hernia without obstruction or gangrene; Translations: [Diaphragmatic hernia without obstruction or gangrene] Onset: 05-19-2022 Episodic Abdominal pain (4 sources) Unspecified abdominal pain; Translations: [UNSPECIFIED ABDOMINAL PAIN] Onset: 05-17-2022 Episodic Cardiac dysrhythmias (1 source) Bradycardia; Translations: [Bradycardia, unspecified] Resolved: 08-25-2018 08-25-2018 Episodic Malaise and fatigue (1 source) Fatigue; Translations: [Other fatigue] Onset: 11-03-2018 Resolved: 10-11-2020 10-11-2020 Episodic Other aftercare (1 source) Other mcfp (current) drug therapy; Translations: [OTH PHARMACEUTICAL OFFICER CURRENT DRUG THERAPY] Onset: 05-19-2022 Episodic Other connective tissue disease (1 source) Fibromyalgia; Translations: [FIBROMYALGIA] Onset: 05-19-2022 Episodic Other connective tissue disease (4 sources) Other muscle spasm; Translations: [OTHER MUSCLE SPASM] Onset: 12-24-2021 Episodic Other gastrointestinal disorders (1 source) Bariatric surgery status; Translations: [BARIATRIC SURGERY STATUS] Onset: 05-19-2022 Episodic Other lower respiratory disease (2 sources) Dyspnea; Translations: [Shortness of breath] Onset: 07-02-2016 Resolved: 08-25-2018 08-25-2018 Episodic Other screening for suspected conditions (not mental disorders or infectious disease) (3 sources) Encounter for screening mammogram for malignant neoplasm of breast; Translations: [Abnormal result of other cardiovascular function study] Onset: 09-26-2022 Episodic Residual codes; unclassified (1 source) Acquired absence of other specified parts of digestive tract; Translations: [ACQ ABSENCE OTH PART DIGESTV TRACT] Onset: 05-19-2022 Episodic Spondylosis; intervertebral disc disorders; other back problems (5 sources) Intervertebral disc disorders with radiculopathy, lumbar region; Translations: [Spinal stenosis, lumbar region without neurogenic claudication] Onset: 03-26-2022 Episodic Results Test Name Value Interpretation Reference Range Facility Office Visiton 05-18-2023 Follow-up visit [id number] GutiérrezSaul 1945 F Date Provider Department Center 05/18/2023 [place] Family History Problem Relation Age of Onset Heart failure Father Family Status - Relation Status Age at Father Level of Service:10761 [place] OFFICE/OUTPATIENT ESTABLISHED MOD MDM 30 MIN (GC) Normal [facility] Office Visiton 03-23-2023 Follow-up visit [id number] Saul Gutiérrez 1945 F Date Provider Department Center 03/23/2023 [place] Family History Problem Relation Age of Onset Heart failure Father Family Status - Relation Status Age at Father Level of Service:72215 [place] OFFICE/OUTPATIENT NEW MODERATE MDM 45-59 MINUTES Normal [facility] Office Visiton 01-25-2023 Follow-up visit [id number] Saul Gutiérrez 1945 Date Provider Department Center 01/25/2023 Nneka6-VIRGIL FOLEY MAGNUS [place] Family History Problem Relation Age of Onset Heart failure Father Family Status - Relation Status Age at Father Level of Service:87476 [place] OFFICE/OUTPATIENT ESTABLISHED MOD MDM 30-39 MIN Normal [facility] Office Visiton 01-18-2023 Follow-up visit [id number] [place] 1945 Date Provider Department Center 01/18/2023 271-MATT JEFFERSONevue Valorie Family History Problem Relation Age of Onset Heart failure Father Family Status - Relation Status Age at Father Level of Service:08251 [place] OFFICE/OUTPATIENT ESTABLISHED MOD MDM 30-39 MIN Normal [facility] ANETono 01-05-2023 ANES Attestation signed by Matt Jefferson MD at 01/05/2023 9:33 AM Matt Jefferson MD, MPH, [facility], [facility] Interventional Cardiology Pager Email: [email or web address] Patient: Saul Gutiérrez Procedure Information Date/Time: 01/05/23 0930 Procedure: Coronary angiography (Left) Location: [facility] ORTHODONTIC TECHNICIAN ASSISTANT 3 / [facility] (Cath) Providers: Matt Jefferson MD Clinical information reviewed: Tobacco Allergies Meds Med Hx Surg Hx OB Status Fam Hx Physical Exam Airway Mallampati: III Cardiovascular Rhythm: regular Rate: normal Dental Pulmonary Breath sounds clear to auscultation Abdominal Abdomen: soft Anesthesia Plan ASA 3 other (Conscious Sedation ) intravenous induction Anesthetic plan and risks discussed with patient. Use of blood products discussed with patient who consented to blood products. Plan discussed with attending. Additional Equipment Requests Normal [facility] CBCon 01-05-2023 Erythrocyte distribution width (RBC) [Ratio] 14.8 % Normal 11.5-15.0 [facility] Comment on above: Performed By: #### L [id number] ####[facility] ([facility])[address] [place] [address] ERYTHROCYTE MEAN CORPUSCULAR HEMOGLOBIN CONCENTRATION (G/DL) BY AUTOMATED 31.4 g/dL Low 32.0-35.0 [facility] Comment on above: Performed By: #### L [id number] ####[facility] ([facility])[address] [place] [address] Hematocrit (Bld) [Volume fraction] 42.0 % Normal 36.0-48.0 [facility] Comment on above: Performed By: #### L [id number] ####[facility] ([facility])[address] [place] [address] Hemoglobin (Bld) [Mass/Vol] 13.2 g/dL Normal 12.0-15.0 [facility] Comment on above: Performed By: #### L [id number] ####[facility] ([facility])[address] [place] [address] MCH (RBC) [Entitic mass] 30.3 pg Normal 27.0-33.0 [facility] Comment on above: Performed By: #### L [id number] ####[facility] ([facility])[address] [place] [address] MCV (RBC) [Entitic vol] 96.3 fL Normal 82.0-98.0 [facility] Comment on above: Performed By: #### L [id number] ####[facility] ([facility])[address] [place] [address] PLATELETS (10*3/UL) IN BLOOD AUTOMATED COUNT 231 10*3/uL Normal 150-400 [facility] Comment on above: Performed By: #### L [id number] ####[facility] ([facility])[address] [place] [address] RBC (Bld) [#/Vol] 4.36 10*6/uL Normal 3.80-5.00 [facility] Comment on above: Performed By: #### L [id number] ####[facility] ([facility])[address] [place] [address] WBC (Bld) [#/Vol] 8.83 10*3/uL Normal 4.00-10.60 [facility] Comment on above: Performed By: #### L [id number] ####[facility] ([facility])[address] [place] [address] HP 01-05-2023 HP Attestation signed by Matt Jefferson MD at 01/05/2023 9:33 AM By using the attestations below, the signing clinician agrees that I have read and verify that the documentation has been personally reviewed by me and ensure that the documentation accurately reflects the encounter. GC: I personally saw this patient on the day of the encounter, performed the [place] portion(s) of the service and participated in the management and confirm the resident's documentation. Please note there may be an additional personal documentation from me. Matt Jefferson MD, MPH, [facility], [facility] Interventional Cardiology Pager Email: [email or web address] History Of Present Illness Saul Gutiérrez is a 77 y.o. female with history of Afib, CKD III, nonischemic cardiomyopathy, with new drop of EF from 40-45% to 35% presenting for coronary angiography. Patient was evaluated in office in October 2022 for second opinion. She was referred for stress test which was reportedly positive (done in [facility]). Patient reports exertional shortness of breath and palpitation but no chest pain. She had cardiac catheterization in 2013 that revealed no significant stenoses. Past Medical History She has a past medical history of Abnormal ECG, Arrhythmia, Atrial fibrillation (CMS/HCC), CHF (congestive heart failure) (CMS/HCC), Hypertension, and Sleep apnea. Surgical History She has a past surgical history that includes Hernia repair (05/2022). Social History She reports that she has never smoked. She has never used smokeless tobacco. She reports that she does not drink alcohol. No history on file for drug use. Allergies Codeine and Lisinopril Medications Medications Prior to Admission Medication Sig Dispense Refill Last Dose aspirin 81 mg EC tablet Take 81 mg by mouth 3 (three) times a week. Past Week baclofen (Lioresal) 10 mg tablet Take 10 mg by mouth in the morning, at noon, and at bedtime. 01/04/2023 coenzyme Q-10 100 mg capsule Take 100 mg by mouth in the morning. 01/04/2023 diclofenac (Voltaren) 50 mg EC tablet Take 50 mg by mouth in the morning. 01/04/2023 empagliflozin (Jardiance) 25 mg Take 1 tablet (25 mg) by mouth in the morning. 30 tablet 11 01/04/2023 furosemide (Lasix) 40 mg tablet Take 40 mg by mouth in the morning. 01/04/2023 losartan (Cozaar) 25 mg tablet Take 1 tablet (25 mg) by mouth in the morning. 90 tablet 3 01/04/2023 metoprolol succinate XL (Toprol-XL) 50 mg 24 hr tablet Take 50 mg by mouth in the morning. 01/04/2023 oxyCODONE-acetaminop hen (Percocet) 5-325 mg tablet Take 1 tablet by mouth if needed in the morning, at noon, and at bedtime for moderate pain (4-7 pain score). Past Week pantoprazole (ProtoNix) 40 mg packet Take 40 mg by mouth in the morning. 01/04/2023 pramipexole (Mirapex) 1 mg tablet Take 1.5 mg by mouth in the morning. 01/04/2023 spironolactone (Aldactone) 25 mg tablet Take 25 mg by mouth in the morning. 01/04/2023 sucralfate (Carafate) 1 gram tablet Take 1 g by mouth in the morning, at noon, in the evening, and at bedtime. 01/04/2023 traZODone (Desyrel) 50 mg tablet Take 50 mg by mouth at bedtime. 01/04/2023 VITAMIN B COMPLEX ORAL Take 1 capsule by mouth in the morning. 01/04/2023 sacubitriL-valsartan (Entresto) 24-26 mg tablet Take 1 tablet by mouth in the morning and at bedtime. 180 tablet 3 Review of Systems 8 point ROS is negative except as mentioned. Physical Exam Vitals reviewed. Constitutional: General: She is not in acute distress. Appearance: Normal appearance. She is obese. HENT: Head: Normocephalic and atraumatic. Cardiovascular: Rate and Rhythm: Normal rate. Pulses: Normal pulses. Pulmonary: Effort: Pulmonary effort is normal. No respiratory distress. Neurological: Mental Status: She is alert and oriented to person, place, and time. Last Recorded Vitals Blood pressure 110/59, pulse 74, resp. rate 16, SpO2 100 %. Relevant Results HB 13.2 Cupola Tapper Helper 1.32 Assessment/Plan Principal Problem: Abnormal cardiovascular stress test 1- Abnormal Stress test 2- HFrEF with new reduction of EF (40-45% down to 35%) 3- History of NICM 4- Normal coronary angio in 2013 5- Exertional Dyspnea Plan to proceed with coronary angiography today. Normal [facility] NURSNOTEon 01-05-2023 NURSNOTE RN educated pt on d/c instructions. RN encouraged pt to voice any questions or concerns. Pt verbalizes no questions or concerns at this time. Pt was wheeled off of unit with all of belongings. Normal [facility] Orders Onlyon 12-18-2022 Orders Only [id number] Saul Gutiérrez 1945 F Provider Department Center 12/18/2022 928-CARIDAD LOVE CARD [facility] Family History Problem Relation Age of Onset Heart failure Father Family Status - Relation Status Age at Father Normal [facility] Office Visiton 11-23-2022 Follow-up visit [id number] Saul Gutiérrez 1945 F Date Provider Department Center 11/23/2022 271-MATT JEFFERSON CARD [facility] Family History Problem Relation Age of Onset Heart failure Father Family Status - Relation Status Age at Father Level of Service:[address]34 [place] OFFICE/OUTPATIENT [facility] MDM 60-74 MINUTES Normal [facility] INSULINon 09-23-2022 Insulin 7.9 uIU/mL Normal 2.6-24.9 [facility] Comment on above: Performed By: #### I NSULIN ####[facility] [address] [place] [address]Dr. Novalilliana Dior CBC AUTO DIFFon 09-22-2022 BASO # 0.0 103/ul Normal 0.0-0.1 [facility] Comment on above: Performed By: #### C BC ####[facility] [address] [place] [address]Dr. Novalilliana Dior Basophils/100 WBC (Bld) 0.4 % Normal 0.2-2.0 [facility] Comment on above: Performed By: #### C BC ####[facility] [address] [place] [address]Dr. Novalilliana Dior EO # 0.6 103/ul Normal 0.0-0.7 [facility] Comment on above: Performed By: #### C BC ####[facility] [address] [place] [address]Dr. Novalilliana Dior Eosinophils/100 WBC (Bld) 6.6 % Normal 0.9-7.0 [facility] Comment on above: Performed By: #### C BC ####[facility] [address] [place] [address]Dr. Ravin Dior Erythrocyte distribution width (RBC) [Ratio] 16.2 % Critically high 11.0-15.0 [facility] Comment on above: Performed By: #### C BC ####[facility] [address] [place] [address]Dr. Ravin Dior Hematocrit (Bld) [Volume fraction] 43.3 % Normal 36.0-48.0 [facility] Comment on above: Performed By: #### C BC ####[facility] [address] [place], [place] [address]Dr. Ravin Dior Hemoglobin (Bld) [Mass/Vol] 13.4 g/dL Normal 12.0-16.0 [facility] Comment on above: Performed By: #### C BC ####[facility] [address] [place], [place] [address]Dr. Ravin Dior IG # 0.05 10e3/ul Critically high 0.00-0.03 [facility] Comment on above: Performed By: #### C BC ####[facility] [address] [place], [place] [address]Dr. Ravin Dior IG % 0.5 % Normal 0.0-0.5 [facility] Comment on above: Performed By: #### C BC ####[facility] [address] [place], [place] [address]Dr. Ravin Dior LYMPH # 2.1 103/ul Normal 1.2-3.8 [facility] Comment on above: Performed By: #### C BC ####[facility] [address] [place], [place] [address]Dr. Ravin Dior Lymphocytes/100 WBC (Bld) 23.1 % Normal 20.5-60.0 [facility] Comment on above: Performed By: #### C BC ####[facility] [address] [place], [place] [address]Dr. Ravin Dior MANUAL DIFF REQ NO Normal [facility] Comment on above: Performed By: #### C BC ####[facility] [address] [place] [address]Dr. Ravin Dior MCH (RBC) [Entitic mass] 29.5 pg Normal 26.7-34.0 [facility] Comment on above: Performed By: #### C BC ####[facility] [address] [place] [address]Dr. Ravin Dior MCHC (RBC) [Mass/Vol] 30.9 g/dL Normal 29.9-35.2 [facility] Comment on above: Performed By: #### C BC ####[facility] [address] [place], [place] [address]Dr. Ravin Dior MCV (RBC) [Entitic vol] 95.4 fL Normal 81.0-99.0 [facility] Comment on above: Performed By: #### C BC ####[facility] [address]sl[address] [place], [place] [address]Dr. Ravin Ovi MONO # 0.5 103/ul Normal 0.3-0.8 [facility] Comment on above: Performed By: #### C BC ####[facility] Rim[address] [place], [place] [address]Dr. Ravin Ovi Monocytes/100 WBC (Bld) 5.8 % Normal 1.7-12.0 [facility] Comment on above: Performed By: #### C BC ####[facility] [address]uwkps[address] [place], [place] [address]Dr. Ravin Dior NEUT # 5.8 103/ul Normal 1.4-6.5 [facility] Comment on above: Performed By: #### C BC ####[facility] [address]ft[address]prlb[address] [place], [place] [address]Dr. Ravin Ovi Neutrophils/100 WBC (Bld) 63.6 % Normal 43.0-75.0 [facility] Comment on above: Performed By: #### C BC ####[facility] Xeracevcbm[address] [place], [place] [address]Dr. Ravin Ovi Platelet mean volume (Bld) [Entitic vol] 10.7 fL Normal 9.5-13.5 [facility] Comment on above: Performed By: #### C BC ####[facility] [address] [place], [place] [address]Zz. Ravin Dior PLT 223 103/ul Normal 150-450 [facility] Comment on above: Performed By: #### C BC ####[facility] [address] [place] [id number]. Ravin Dior RBC 4.54 106/ul Normal 4.20-5.40 [facility] Comment on above: Performed By: #### C BC ####[facility] [address]bcep40[address] [place] [address]Dr. Ravin Dior WBC 9.2 103/ul Normal 4.0-11.0 [facility] Comment on above: Performed By: #### C BC ####[facility] Z[address]hq[address] [place] [address]Dr. Ravin Dior FREE THYROXINE INDEX T7on FTI 2.44 Normal 1.30-4.50 [facility] Comment on above: Performed By: #### C MP, T7, TSH, LIPID #### [facility] [address] [place] [address] [address] Ravin Dior T3U 33.0 % Normal 30.0-39.0 [facility] Comment on above: Performed By: #### C MP, T7, TSH, LIPID #### [facility] [address] [address] [address] Ravin Dior T4 [Mass/Vol] 7.40 ug/dL Normal 4.80-13.90 [facility] Comment on above: Performed By: #### C MP, T7, TSH, LIPID #### [facility] [address] [place] [address] [address] Ravin Dior GLYCOHEMOGLOBIN A1Con 2022 ADA RECOMMENDATION SEE BELOW Normal [facility] Comment on above: Result Comment: ADA RECOMMENDED LIMIT 4.0 - 6.0 ADA THERAPEUTIC TARGET < 7.0 ACTION SUGGESTED > 7.0 Performed By: #### A 1C ####[facility] [address] [place] [address]Dr. Ravin Dior Glucose [Mass/Vol] 105 mg/dL Normal [facility] Comment on above: Performed By: #### A 1C ####[facility] [address]ffncn[address] [place] [address]Dr. Ravin Dior HbA1c (Bld) [Mass fraction] 5.3 % Normal 4.5-6.2 [facility] Comment on above: Performed By: #### A 1C ####[facility] [address]diau[address] [place] [address]Dr. Ravin Dior IRONon 09-22-2022 Iron [Mass/Vol] 81.0 ug/dL Normal 50.0-170.0 [facility] Comment on above: Performed By: #### I SEAMUS ####[facility] [address] [place] [address]Dr. Ravin Dior LIPID PROFILEon 09-22-2022 CHOL-HDL RATIO NORM SEE BELOW Normal [facility] Comment on above: Result Comment: 3.3 - 4.4 LOW RISK 4.4 - 7.1 AVERAGE RISK 7.1 - 11.0 MODERATE RISK >11.0 HIGH RISK Performed By: #### C MP, T7, TSH, LIPID ####[facility] [address]jm[address] [place] [address]Dr. Ravin Dior Cholesterol [Mass/Vol] 159 mg/dL Normal <=200 [facility] Comment on above: Performed By: #### C MP, T7, TSH, LIPID ####[facility] [address]rbrgs[address] [place] [address]Dr. Ravin Dior Cholesterol in HDL [Mass/Vol] 47 mg/dL Normal 40-60 [facility] Comment on above: Performed By: #### C MP, T7, TSH, LIPID ####[facility] [address] [place] [address]Dr. Ravin Dior Cholesterol in LDL [Mass/Vol] 96.4 mg/dL Normal [facility] Comment on above: Performed By: #### C MP, T7, TSH, LIPID ####[facility] [address]qya[address] [place] [address]Dr. Ravin Ovi Cholesterol.total/Cho lesterol in HDL [Mass ratio] 3.4 {ratio} Normal [facility] Comment on above: Performed By: #### C MP, T7, TSH, LIPID ####[facility] [address] [place] [address]Dr. Ravin Dior HDL NORMAL > or = 60 mg/dl - LOW CARDIOVASCULAR RISK <40 mg/dl - HIGH CARDIOVASCULAR RISK Normal [facility] Comment on above: Performed By: #### C MP, T7, TSH, LIPID ####[facility] Q[address]zrs[address] [place] [address]Dr. Ravin Dior LDL CALC NORMAL SEE BELOW Normal [facility] Comment on above: Result Comment: <100 mg/dl OPTIMAL 100 - 129 mg/dl NEAR OR ABOVE OPTIMAL 130 - 159 mg/dl BORDERLINE HIGH 160 - 189 mg/dl HIGH >190 mg/dl VERY HIGH Performed By: #### C MP, T7, TSH, LIPID ####[facility] [address]skhgj[address] [place] [id number]. Ravin Dior Triglyceride [Mass/Vol] 78 mg/dL Normal <=150 [facility] Comment on above: Performed By: #### C MP, T7, TSH, LIPID ####[facility] Xir[address]umaq[address] [place] [address]Dr. Ravin Dior VLDL CALC 15.6 mg/dL Normal [facility] Comment on above: Performed By: #### C MP, T7, TSH, LIPID ####[facility] [address] [place] [id number]. Ravin Dior MG MAMM SCREEN 3D NIKOS CADon 09-22-2022 MG MAMM SCREEN 3D NIKOS CAD Patient: SAUL GUTIÉRREZ Exam Date: 09/22/2022 : 1945 Gender:F Ordering : [facility] Admission #: [id number] Family : Order #: [id number] CLICK HERE TO VIEW EXAM RADIOLOGY REPORT PROCEDURE: MAMMOGRAM SCREENING 3D BILATERAL CAD COMPARISON: MG MAMM SCREEN 3D NIKOS CAD, 08/28/2021. MG MAMM SCREEN NIKOS W CAD, 07/29/2020. MG MAMM SCREEN NIKOS W CAD, 11/09/2019. MG MAMM SCREEN NIKOS W CAD, 06/08/2018. INDICATIONS: Screening mammography Calculator Name NCI Breast Cancer Risk Assessment Tool 5 Year Breast Cancer Risk 1.30% Lifetime Breast Cancer Risk 2.40% Personal Breast Cancer No Personal Ovarian Cancer No Treatments None Family Cancers None LOCATION: [facility] BREAST COMPOSITION: Almost entirely fatty. FINDINGS: DIAGNOSTIC CATEGORY 1--NEGATIVE. RIGHT BREAST: No significant suspicious finding. No significant change has occurred. LEFT BREAST: No significant suspicious finding. No significant change has occurred. RECOMMENDATIONS: ROUTINE MAMMOGRAM AND CLINICAL EVALUATION IN 12 MONTHS. PLEASE NOTE: A NORMAL MAMMOGRAM DOES NOT EXCLUDE THE POSSIBILITY OF BREAST CANCER. A CLINICALLY SUSPICIOUS PALPABLE LUMP SHOULD BE BIOPSIED. Dictated by: Shar Valenzuela M.D. on 09/22/2022 at 17:00 Approved by: Shar Valenzuela M.D. on 09/22/2022 at 17:02 Normal [facility] PROF 14(COMP METB)on 09-22- 023 Albumin [Mass/Vol] 3.3 g/dL Critically low 3.4-5.0 [facility] Comment on above: Performed By: #### C MP, T7, TSH, LIPID #### [facility] [address] [address] [address] Ravin Dior Albumin/Globulin [Mass ratio] 0.7 {ratio} Normal [facility] Comment on above: Performed By: #### C MP, T7, TSH, LIPID #### [facility] [address] [place] [address] [address] Ravin Dior ALP [Catalytic activity/Vol] 207 U/L Critically high 46-116 [facility] Comment on above: Performed By: #### C MP, T7, TSH, LIPID #### [facility] [address] [place] [address] [address] Ravin Dior ALT [Catalytic activity/Vol] 47 U/L Normal 14-59 [facility] Comment on above: Performed By: #### C MP, T7, TSH, LIPID #### [facility] [address] [place] [address] [address] Ravin Dior Anion gap [Moles/Vol] 11.5 mmol/L Normal [facility] Comment on above: Performed By: #### C MP, T7, TSH, LIPID #### [facility] [address] [place] [address] [address] Ravin Dior AST [Catalytic activity/Vol] 35 U/L Normal 15-37 [facility] Comment on above: Performed By: #### C MP, T7, TSH, LIPID #### [facility] [address] [place] [address] [address] Ravin Dior Bilirubin [Mass/Vol] 0.6 mg/dL Normal 0.2-1.0 [facility] Comment on above: Performed By: #### C MP, T7, TSH, LIPID #### [facility] [address] [place] [address] [address] Ravin Dior Calcium [Mass/Vol] 9.2 mg/dL Normal 8.5-10.1 [facility] Comment on above: Performed By: #### C MP, T7, TSH, LIPID #### [facility] [address] [place] [address] Dr. Ravin Dior Chloride [Moles/Vol] 109 mmol/L Critically high 98-107 [facility] Comment on above: Performed By: #### C MP, T7, TSH, LIPID #### [facility] [address] [place] [address] Dr. Ravin Dior CO2 [Moles/Vol] 27.7 mmol/L Normal 21.0-32.0 [facility] Comment on above: Performed By: #### C MP, T7, TSH, LIPID #### [facility] [address] [place] [address] Dr. Ravin Dior Creatinine [Mass/Vol] 0.94 mg/dL Normal 0.55-1.02 [facility] Comment on above: Performed By: #### C MP, T7, TSH, LIPID #### [facility] [address] [place] [address] Dr. Ravin Dior EGFR-AF SUDANESE >60 Normal >=60 [facility] Comment on above: Performed By: #### C MP, T7, TSH, LIPID #### [facility] [address] [place] [address] Dr. Ravin Dior EGFR-NON AF SUDANESE 58 mL/min/1.73m2 Critically low >=60 [facility] Comment on above: Performed By: #### C MP, T7, TSH, LIPID #### [facility] [address] [place] [address] [address] Ravin Dior Globulin (S) [Mass/Vol] 4.7 g/dL Normal [facility] Comment on above: Performed By: #### C MP, T7, TSH, LIPID #### [facility] [address] [place] [address] [address] Ravin Dior Glucose [Mass/Vol] 95 mg/dL Normal 74-106 [facility] Comment on above: Performed By: #### C MP, T7, TSH, LIPID #### [facility] [address] [place] [address] Dr. Ravin Dior Potassium [Moles/Vol] 4.2 mmol/L Normal 3.5-5.1 [facility] Comment on above: Performed By: #### C MP, T7, TSH, LIPID #### [facility] [address] [place] [address] Dr. Ravin Dior Protein [Mass/Vol] 8.0 g/dL Normal 6.4-8.2 [facility] Comment on above: Performed By: #### C MP, T7, TSH, LIPID #### [facility] [address] [place] [address] Dr. Ravin Dior Sodium [Moles/Vol] 144 mmol/L Normal 136-145 [facility] Comment on above: Performed By: #### C MP, T7, TSH, LIPID #### [facility] [address] [place] [address] Dr. Ravin Dior Urea nitrogen [Mass/Vol] 21.0 mg/dL Critically high 7.0-18.0 [facility] Comment on above: Performed By: #### C MP, T7, TSH, LIPID #### [facility] [address] [place] [address] Dr. Ravin Dior Urea nitrogen/Creatinine [Mass ratio] 22.3 mg/mg Normal [facility] Comment on above: Performed By: #### C MP, T7, TSH, LIPID #### [facility] [address] [place], [place] [address] Dr. Ravin Dior TSHon 09-22-2022 TSH 2.085 uIU/mL Normal 0.358-3.740 [facility] Comment on above: Performed By: #### C MP, T7, TSH, LIPID #### [facility] [address] [place], [place] [address] ABD/PELVIS WO CONon 06-06 CT ABD/PELVIS WO CON Begin Addendum #1 Addendum requested for measurements of the hernias. 1. Superior most ventral supraumbilical midline fat containing hernia with defect measuring 2.3 x 1.4 cm with fat-containing sac measuring approximately 7.9 x 9.3 cm -Contains mild stranding within the sac 2. Inferior most edge supraumbilical midline fat-containing hernia with defect measuring 1.3 x 0.9 cm with fat-containing sac measuring approximately 4.3 x 4.6 cm 3. Fat-containing umbilical hernia with defect measuring 1.8 x 0.9 cm with fat-containing sac measuring approximately 2.1 x 4.3 cm (extending inferior to the umbilicus) Original Report EXAMINATION: CT ABD/PELVIS WO CON, 05/17/2022 7:58 AM MST HISTORY: pain COMPARISON: 07/11/2014. TECHNIQUE: CT scan of the abdomen and pelvis was performed without IV contrast. CT dose reduction technique was used, including Automated Exposure Control. 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 Tubes/lines/drains: None. CHEST: Lungs: Clear. Cardiac and vascular: No cardiomegaly or significant pericardial effusion. ABDOMEN: Liver: Calcified granulomata. Gallbladder and Biliary Tree: Cholecystectomy. No ductal dilatation. Spleen: Calcified granulomata. Pancreas: Fatty atrophy more so affecting the head/uncinate. Adrenal Glands: Right adrenal 6 cm nodule normal left adrenal gland, unchanged. Normal left adrenal gland. Kidneys, Ureters, Bladder: Bilateral renal atrophy. No urolithiasis. No hydronephrosis or hydroureterosis. Unremarkable bladder. Gastrointestinal: Gastric bypass with small hiatal hernia. Left colonic diverticulosis. No mural thickening or inflammatory changes. No dilated loops of small or large bowel. Normal appendix. Reproductive organ(s): Presumed hysterectomy. Lymphatic: No concerning retroperitoneal, mesenteric, or inguinal adenopathy. Vessels: Mild atherosclerotic calcifications. BONES AND SOFT TISSUE: Bones: No acute fracture. No concerning osseous lesions. L3-L4 posterior spinal fixation and discectomy. Additional moderate to severe degenerative changes above and below the surgical levels. Soft Tissue: At least 3 fat-containing ventral hernias, largest sac measuring up to 7.9 cm (defect measuring 2 cm) within the supraumbilical abdominal wall, which also contains mild stranding. IMPRESSION: 1. No acute intra-abdominal/pelv ic findings. 2. Three fat-containing ventral hernias with mild stranding within the sac of the largest most superior hernia. Normal [facility] CBC AUTO DIFFon 05-17-2022 BASO # 0.0 103/ul Normal 0.0-0.1 [facility] Comment on above: Performed By: #### C BC ####[facility] [address] [place] [address]Dr. Ravin Dior Basophils/100 WBC (Bld) 0.2 % Normal 0.2-2.0 [facility] Comment on above: Performed By: #### C BC ####[facility] [address] [place], [place] [address]DrViky Dior EO # 0.1 103/ul Normal 0.0-0.7 [facility] Comment on above: Performed By: #### C BC ####[facility] [address]pdfps[address] [place] [address]DrViky Dior Eosinophils/100 WBC (Bld) 1.4 % Normal 0.9-7.0 [facility] Comment on above: Performed By: #### C BC ####[facility] [address] [place], [place] [address]DrViky Dior Erythrocyte distribution width (RBC) [Ratio] 13.7 % Normal 11.0-15.0 [facility] Comment on above: Performed By: #### C BC ####[facility] S[address] [place], [place] [address]DrViky Dior Hematocrit (Bld) [Volume fraction] 44.4 % Normal 36.0-48.0 [facility] Comment on above: Performed By: #### C BC ####[facility] [address]fw[address] [place] [address]DrViky Dior Hemoglobin (Bld) [Mass/Vol] 14.7 g/dL Normal 12.0-16.0 [facility] Comment on above: Performed By: #### C BC ####[facility] [address] [place] [address]DrViky Dior IG # 0.05 10e3/ul Critically high 0.00-0.03 [facility] Comment on above: Performed By: #### C BC ####[facility] [address] [place], [place] [address]DrViky Dior IG % 0.5 % Normal 0.0-0.5 [facility] Comment on above: Performed By: #### C BC ####[facility] [address]mj[address] [place], [place] [address]DrViky Dior LYMPH # 1.7 103/ul Normal 1.2-3.8 [facility] Comment on above: Performed By: #### C BC ####[facility] [address]zo[address] [place], [place] [address]DrViky Dior Lymphocytes/100 WBC (Bld) 17.1 % Critically low 20.5-60.0 [facility] Comment on above: Performed By: #### C BC ####[facility] [address]dtv[address] [place], [place] [address]DrViky Dior MANUAL DIFF REQ NO Normal [facility] Comment on above: Performed By: #### C BC ####[facility] Kr[address]xq[address] [place] [address]DrViky Dior MCH (RBC) [Entitic mass] 30.7 pg Normal 26.7-34.0 [facility] Comment on above: Performed By: #### C BC ####[facility] [address]mjvbma26[address] [place] [address]DrViky Dior MCHC (RBC) [Mass/Vol] 33.1 g/dL Normal 29.9-35.2 [facility] Comment on above: Performed By: #### C BC ####[facility] [address]es[address]fxuym[address] [place] [address]DrViky Dior MCV (RBC) [Entitic vol] 92.7 fL Normal 81.0-99.0 [facility] Comment on above: Performed By: #### C BC ####[facility] K[address]hlpxy[address] [place] [address]DrViky Dior MONO # 0.6 103/ul Normal 0.3-0.8 [facility] Comment on above: Performed By: #### C BC ####[facility] F[address]mxfafkr65[address] [place] [address]DrViky Dior Monocytes/100 WBC (Bld) 5.7 % Normal 1.7-12.0 [facility] Comment on above: Performed By: #### C BC ####[facility] Hzkwvkdzkz[address] [place], [place] [address]DrViky Dior NEUT # 7.7 103/ul Critically high 1.4-6.5 [facility] Comment on above: Performed By: #### C BC ####[facility] [address]fk[address] [place], [place] [address]DrViky Dior Neutrophils/100 WBC (Bld) 75.1 % Critically high 43.0-75.0 [facility] Comment on above: Performed By: #### C BC ####[facility] [address]ffuwmd[address] [place], [place] [address]DrViky Dior Platelet mean volume (Bld) [Entitic vol] 10.4 fL Normal 9.5-13.5 [facility] Comment on above: Performed By: #### C BC ####[facility] [address] [place], [place] [id number] Dior PLT 294 103/ul Normal 150-450 [facility] Comment on above: Performed By: #### C BC ####[facility] [address] [place], [place] [id number] Dior RBC 4.79 106/ul Normal 4.20-5.40 [facility] Comment on above: Performed By: #### C BC ####[facility] [address] [place] [address]Dr. Ravin Dior WBC 10.2 103/ul Normal 4.0-11.0 [facility] Comment on above: Performed By: #### C BC ####[facility] [address]yrgds[address] [place] [address]Dr. Ravin Dior ER URINE PROFILEon 2 Bilirubin Ql (U) Negative Normal NEGATIVE [facility] Comment on above: Performed By: #### Tammy RUR, UMICRO #### [facility] [address] [place] [address] Dr. Ravin Dior Clarity (U) CLEAR Normal CLEAR [facility] Comment on above: Performed By: #### Tammy SOUTH, UMICRO #### [facility] [address] [place] [address] Dr. Ravin Dior Color (U) LT. YELLOW Normal YELLOW [facility] Comment on above: Performed By: #### Tammy SOUTH UMICRO #### [facility] [address] [place] [address] [address] Ravin PARKER A micrscopic examination will be performed if indicated. Normal [facility] Comment on above: Performed By: #### Tammy SOUTH UMICRO #### [facility] [address] [place] [address] Dr. Ravin Dior Glucose Ql (U) Negative Normal NEGATIVE [facility] Comment on above: Performed By: #### Tammy RUR, UMICRO #### [facility] [address] [place] [address] [address] Ravin Dior Hemoglobin Ql (U) Negative Normal NEGATIVE [facility] Comment on above: Performed By: #### Tammy SOTUH UMICRO #### [facility] [address] [place] [address] [address] Ravin Dior Ketones Ql (U) TRACE Abnormal NEGATIVE [facility] Comment on above: Performed By: #### Tammy JORDANR UMICRO #### [facility] [address] [place] [address] Dr. Ravin Dior LEUKOCYTES SMALL Abnormal NEGATIVE [facility] Comment on above: Performed By: #### ALDA KAUFFMAN #### [facility] [address] [place] [address] Dr. Ravin Dior Nitrite Ql (U) Negative Normal NEGATIVE [facility] Comment on above: Performed By: #### ALDA KAUFFMAN #### [facility] [address] [place] [address] Dr. Ravin Dior pH (U) 6.0 [pH] Normal 5-9 [facility] Comment on above: Performed By: #### ALDA KAUFFMAN #### [facility] [address] [place] [address] Dr. Ravin Dior SPEC GRAVITY 1.010 Normal 1.005-<=1.025 [facility] Comment on above: Performed By: #### ALDA KAUFFMAN #### [facility] [address] [place] [address] Dr. Ravin Dior UA PROTEIN Negative Normal NEGATIVE/ TRACE [facility] Comment on above: Performed By: #### ALDA KAUFFMAN #### [facility] [address] [place] [address] Dr. Ravin Dior UR MICRO IND INDICATED Normal [facility] Comment on above: Performed By: #### ALDA KAUFFMAN #### [facility] [address] [place] [address] Dr. Ravin Dior Urobilinogen Qn (U) 0.2 {Chandler'U}/dL Normal 0.2 - 1. 0 [facility] Comment on above: Performed By: #### ALDA KAUFFMAN #### [facility] [address] [place] [address] Dr. Ravin Dior LACTATE/LACTIC ACIDon 2021 Lactate [Moles/Vol] 1.3 mmol/L Normal 0.4-1.9 [facility] Comment on above: Performed By: #### L ACT ####[facility] [address] [place], [place] [address]YnDr. Ravin Dior LIPASEon 05-17-2022 Lipase [Catalytic activity/Vol] 63.0 U/L Critically low 73.0-393.0 [facility] Comment on above: Performed By: #### C MP, LIPA #### [facility] [address] [place] [address] [address] Raivn Dior PROF 14(COMP METB)on 022 Albumin [Mass/Vol] 3.4 g/dL Normal 3.4-5.0 [facility] Comment on above: Performed By: #### C MP, LIPA #### [facility] [address] [place] [address] [address] Ravin Dior Albumin/Globulin [Mass ratio] 0.8 {ratio} Normal [facility] Comment on above: Performed By: #### C MP, LIPA #### [facility] [address] [place] [address] [address] Ravin Dior ALP [Catalytic activity/Vol] 143 U/L Critically high 46-116 [facility] Comment on above: Performed By: #### C MP, LIPA #### [facility] [address] [place] [address] [address] Ravin Dior ALT [Catalytic activity/Vol] 29 U/L Normal 14-59 [facility] Comment on above: Performed By: #### C MP, LIPA #### [facility] [address] [place] [address] [address] Ravin Dior Anion gap [Moles/Vol] 7.6 mmol/L Normal [facility] Comment on above: Performed By: #### C MP, LIPA #### [facility] [address] [place] [address] [address] Ravin Dior AST [Catalytic activity/Vol] 39 U/L Critically high 15-37 [facility] Comment on above: Performed By: #### C MP, LIPA #### [facility] [address] [place] [address] Dr. Ravin Dior Bilirubin [Mass/Vol] 0.7 mg/dL Normal 0.2-1.0 [facility] Comment on above: Performed By: #### C MP, LIPA #### [facility] [address] [place] [address] Dr. Ravin Dior Calcium [Mass/Vol] 9.1 mg/dL Normal 8.5-10.1 [facility] Comment on above: Performed By: #### C MP, LIPA #### [facility] [address] [place] [address] Dr. Ravin Dior Chloride [Moles/Vol] 102 mmol/L Normal 98-107 [facility] Comment on above: Performed By: #### C MP, LIPA #### [facility] [address] [place] [address] Dr. Ravin Dior CO2 [Moles/Vol] 31.1 mmol/L Normal 21.0-32.0 [facility] Comment on above: Performed By: #### C MP, LIPA #### [facility] [address] [place] [address] Dr. Ravin Dior Creatinine [Mass/Vol] 0.88 mg/dL Normal 0.55-1.02 [facility] Comment on above: Performed By: #### C MP, LIPA #### [facility] [address] [place] [address] Dr. Ravin Dior EGFR-AF SUDANESE >60 Normal >=60 [facility] Comment on above: Performed By: #### C MP, LIPA #### [facility] [address] [place] [address] Dr. Ravin Dior EGFR-NON AF SUDANESE >60 Normal >=60 [facility] Comment on above: Performed By: #### C MP, LIPA #### [facility] [address] [place] [address] Dr. Ravin Dior Globulin (S) [Mass/Vol] 4.5 g/dL Normal [facility] Comment on above: Performed By: #### C MP, LIPA #### [facility] [address] [place] [address] Dr. Ravin Dior Glucose [Mass/Vol] 100 mg/dL Normal 74-106 [facility] Comment on above: Performed By: #### C MP, LIPA #### [facility] [address] [place] [address] Dr. Ravin Dior Potassium [Moles/Vol] 3.7 mmol/L Normal 3.5-5.1 [facility] Comment on above: Performed By: #### C MP, LIPA #### [facility] [address] [place] [address] Dr. Ravin Dior Protein [Mass/Vol] 7.9 g/dL Normal 6.4-8.2 [facility] Comment on above: Performed By: #### C ROGELIO, LIPA #### [facility] [address] [place] [address] Dr. Ravin Dior Sodium [Moles/Vol] 137 mmol/L Normal 136-145 [facility] Comment on above: Performed By: #### C ROGELIO, LIPA #### [facility] [address] [place] [address] Dr. Ravin Dior Urea nitrogen [Mass/Vol] 12.0 mg/dL Normal 7.0-18.0 [facility] Comment on above: Performed By: #### C ROGELIO, LIPA #### [facility] [address] [place] [address] Dr. Ravin Dior Urea nitrogen/Creatinine [Mass ratio] 13.6 mg/mg Normal [facility] Comment on above: Performed By: #### C ROGELIO, LIPA #### [facility] [address] [place] [address] Dr. Ravin Dior URINE MICROSCOPIC ONLYon BACTERIA NONE SEEN Normal NONE SEEN [facility] Comment on above: Performed By: #### DENY KAUFFMANRO #### [facility] [address] [place] [address] Dr. Ravin Dior Bacteria identified Cx Nom (U) NOT INDICATED Normal [facility] Comment on above: Performed By: #### Tammy SOUTH UMICRO #### [facility] [address] [place] [address] Dr. Ravin Dior CAST NONE SEEN Normal NONE SEEN [facility] Comment on above: Performed By: #### E RUR, UMICRO #### [facility] [address] [address] [address] Ravin Dior Crystals LM Nom (Urine sed) NONE SEEN Normal NONE SEEN [facility] Comment on above: Performed By: #### E RUR, UMICRO #### [facility] [address] [address] [address] Ravin Dior Epithelial cells LM Ql (Urine sed) FEW Abnormal NONE SEEN /RARE [facility] Comment on above: Performed By: #### E RUR, UMICRO #### [facility] [address] [address] [address] Ravin Dior MUCOUS NONE SEEN Normal NONE SEEN [facility] Comment on above: Performed By: #### E RUR, UMICRO #### [facility] [address] [address] [address] Ravin Dior RBC NONE SEEN Abnormal 0-2 [facility] Comment on above: Performed By: #### E RUR, UMICRO #### [facility] [address] [address] [address] Ravin Dior WBC 0-2 Abnormal NONE SEEN [facility] Comment on above: Performed By: #### E RUR, UMICRO #### [facility] [address] [address] [address] Ravin Dior Ambulatory Clinical Summaryo n 07-24-2020 Ambulatory Clinical Summary {[id number] Normal [facility] Gastroenterology Office/Clin ic Noteon 07-24-2020 Gastroenterology Office/Clinic Note Chief Complaint 1 year follow up History of Present Illness This is a 75 year old female who presents today for follow up, Anastomotic ulcer, prescribed Carafate BID and decreased Protonix to daily, denies any abdominal pain Heartburn, occasionally Intestinal bacterial overgrowth, bloating and gas, 3-4 times a week, previously treated for SIBO with good response Constipation, uses as needed Percocet, on fiber and PRN stool softener, daily BM. Resolved. Colon polyp, repeat colonoscopy due 12/2023 Review of Systems Constitutional: no fever, no chills, no sweats, no weakness. ENMT: no ear pain, no sore throat, no congestion, no hoarseness. Respiratory: No shortness of breath , no cough, no orthopnea, no wheezing. Cardiovascular: no chest pain, no palpitations, no edema. Gastrointestinal: as in the HPI Musculoskeletal: no back pain, no trauma. Neurologic: no headache, no dizziness, no numbness, no weakness. Physical Exam Vitals & Measurements T: 36.3 ?C (Temporal Artery) HR: 77(Peripheral) RR: 14 BP: 120/72 HT: 165 cm HT: 165.0 cm WT: 95.9 kg WT: 95.9 kg BMI: 35.22 General: Well developed, well nourished, in no acute distress Eyes: extraocular movements intact. Non-Icteric Pulmonary/Respirator y: No cough noted during interview. Normal Respiratory efforts Abdomen: No abdominal distension Extremity: No clubbing, cyanosis, edema, or deformity in the exposed areas of the upper and lower extremities. Normal ROM. Neurologic: Grossly normal, no gross focal deficits Assessment/Plan 1. Anastomotic ulcer (K28.9: Gastrojejunal ulcer, unspecified as acute or chronic, without hemorrhage or perforation) Resolved EGD 12/2018 Refill Carafate twice daily Trial of cut down on Pantoprazole to 20 mg QD 2. Intestinal bacterial overgrowth (K63.89: Other specified diseases of intestine) Flagyl and Align Ordered: bifidobacterium infantis, 4 mg = 1 cap(s), Oral, Daily, Take after completing the Antibiotics course, # 28 cap(s), Refills(s) 0, Pharmacy: [facility]/pharmacy #[id number], 165, cm, 07/24/20 12:03:00 EST, Height/Length Dosing, 95.9, kg, 07/24/20 12:03:00 EST, Weight Dosing metronidazole, 250 mg = 1 tab(s), Oral, TID, X 7 day(s), # 21 tab(s), Refills(s) 0, Pharmacy: [facility]/pharmacy #[id number], 165, cm, 07/24/20 12:03:00 EST, Height/Length Dosing, 95.9, kg, 07/24/20 12:03:00 EST, Weight Dosing 3. Constipation (K59.00: Constipation, unspecified) On Percocet, with overflow, responding to Metamucil and PRN stool softener. Negative colon biopsies Refill Metamucil Ordered: psyllium, 1,050 mg = 2 cap(s), Oral, Daily, Take 2 hour apart from the other medications with at least 8 ounces of water, # 160 cap(s), Refills(s) 1, Pharmacy: [facility]/pharmacy #[id number], 165, cm, 07/24/20 12:03:00 EST, Height/Length Dosing, 95.9, kg, 07/24/20 12:03:... Orders: pantoprazole, 40 mg = 2 tab(s), Oral, Daily, X 90 day(s), # 180 tab(s), Refills(s) 3, Pharmacy: [facility]/pharmacy #[id number], 165, cm, 07/24/20 12:03:00 EST, Height/Length Dosing, 95.9, kg, 07/24/20 12:03:00 EST, Weight Dosing Follow-up With When Contact Information Taylor Mccauley MD, Isabelle In 12 months [address], [place] [address]- Additional Instructions: Problem List/Past Medical History Ongoing Anastomotic ulcer Arthritis Atrial fibrillation Back pain, chronic Cataracts, both eyes Constipation Diverticulosis Fibromyalgia Gallstone Heartburn Hemorrhoids History of stomach ulcers HTN (hypertension) Intestinal bacterial overgrowth Osteoporosis Historical No qualifying data Procedure/Surgical History back surgery, Cholecystectomy, Colonoscopy, Gastric bypass, Hysterectomy, RD procedure, Tubal ligation. Medications Align 4 mg oral capsule, 4 mg= 1 cap(s), Oral, Daily baclofen 10 mg Tab, 10 mg= 1 tab(s), Oral, Bedtime Carafate, Oral, QIDACHS Co Q-10, Oral, Daily ferrous sulfate, Oral Flagyl 250 mg Tab, 250 mg= 1 tab(s), Oral, TID losartan 25 mg Tab, 25 mg= 1 tab(s), Oral, Daily Metamucil 525 mg oral capsule, 1050 mg= 2 cap(s), Oral, Daily, 1 refills metoprolol 25 mg ER Tab, 25 mg= 1 tab(s), Oral, Daily Multi Vitamin+ pantoprazole 20 mg Oral EC Tab, 40 mg= 2 tab(s), Oral, Daily, 3 refills Percocet 325 mg-5 mg Tab, 1 tab(s), Oral, q4hr, PRN pramipexole, Oral traZODONE 50 mg Tab, 50 mg= 1 tab(s), Oral, TID vitamin A Vitamin C, Daily Vitamin D, Oral, Daily Zinc, Oral, Daily Allergies codeine (unknown) Social History Alcohol - Denies Alcohol Use, 12/16/2018 Exercise - Occasional exercise, 12/16/2018 Other Xpilfjfu-5-0 cups blair;y, 12/16/2018 Substance Abuse - Denies Substance Abuse, 12/16/2018 Tobacco Never (less than 100 in lifetime) Tobacco Use:., 07/24/2020 Never (less than 100 in lifetime) Tobacco Use:. Never Smokeless Tobacco Use:., 02/01/[address] [facility] Comment on above: Result Comment: Elec tronically Signed By: Taylor Mccauley MD, Isabelle\.br\Date and Time Signed: 07/24/20 13:13 EST Auth for Release of Medical Recordson 02-09-2020 Auth for Release of Medical Records [id number] #1.00CD:[address] [facility] Patient Letter FTon 2019 Patient Letter [facility] [place] [place] January 24, 2020 SAUL GUTIÉRREZ [address] [place] [address] SAUL GUTIÉRREZ 1945 Dear Saul, This is a reminder that you are due for an appointment with Dr. Garland or Dr. Mccauley. Please call [facility] at [phone] to schedule an appointment at your earliest convenience. 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 Work Phone: [facility] Comment on above: Med Refill Start: 05-18-2023 End: 05-18-2023 ambulatory [facility] Start: 03-23-2023 End: 03-26-2023 ambulatory [facility] Start: 01-25-2023 End: 01-25-2023 ambulatory VIRGIL [facility] Start: 01-18-2023 End: 01-18-2023 ambulatory [facility] Start: 01-05-2023 End: 01-05-2023 ambulatory [facility] Start: 11-23-2022 End: 11-23-2022 ambulatory [facility] Start: 09-22-2022 End: 09-23-2022 ambulatory HEAVEN STALEY Facility:[facility] Start: 07-23-2022 End: 07-24-2022 ambulatory HEAVEN STALEY Facility:[facility] Start: 05-17-2022 End: 05-17-2022 ambulatory HEAVEN STALEY Facility:[facility] Start: 03-26-2022 End: 03-27-[address] JAYLON ORNELAS . Facility:[facility] Start: 12-24-2021 End: 12-25-[address] JAYLON ORNELAS . Facility:[facility] Start: 11-04-2021 End: 11-04-[address] JAYLON ORNELAS . Facility:[facility] Plan of Treatment Date Care Activity Detail Author Start: 08-25-2023 Adult BMI Screening Adult BMI Screen ing [facility] Start: 08-25-2023 Tobacco Screening Tobacco Screening [facility] Start: 01-29-2023 COVID-19 Vaccine ( season) COVID-19 Vaccine ( season) [facility] Start: 01-29-2023 Influenza vaccination Influenza Vacc ine [facility] Start: 11-03-2022 ambulatory Ambulatory Facility:[facility] Start: 2010 Fall Risk Screening Fall Risk Screen ing [facility] Start: 1995 Administration of varicella zoster vaccine Zoster (Shingles) Vaccine (1 of 2) [facility] Start: 1964 DTaP,Tdap and Td Vac cines (1 - Tdap) DTaP,Tdap and Td Vaccines (1 - Tdap) [facility] Start: 1963 Adult BMI Follow Up Plan Adult BMI Follow Up Plan [facility] Start: 1957 Depression Screening Depression Scre ening [facility] Start: 1945 Medicare Annual Well ness Visit Medicare [facility] Well[facility] End: 06-08-2024 Basic metabolic 2000 panel - Serum or Plasma Basic Metabolic Panel Lab Routine Essential hypertension 1 Occurrences starting 06/08/2023 until 06/08/2024 [facility] Work Phone: Comment on above: 1 Occurrences starti ng 06/08/2023 until 06/08/2024 Immunizations Immunization Date Immunization Notes Care Provider Tutu rehman 05-08-2021 influenza virus vaccine, unspecified formulation Mac Erwin IMPORT/EXPORT AGENT-MID LEVEL PRACTITIONER [facility] Payers Date Payer Category Payer Medicare HU[employer]NA MEDICARE HU[employer] MEDICARE - [place] RESIDENT [id number] 2013-Present [phone] [address] [address] [place] [address] [id number] 1959 Medicare [id number] 1945 Unknown [id number] 1945 Unknown [id number] 1945 Unknown [id number] 1945 Unknown [id number] 1945 Unknown [id number] 1945 Unknown [id number] 1945 Unknown [id number] Social History Date Type Detail Facility Start: 05-26-2022 [facility] tobacco [facility] Start: 05-26-2022 Tobacco use and exposure Smoke less tobacco non-user 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 Start: 07-04-2020 End: 08-24-2022 History of Social function [facility] Start: 07-04-2020 End: 08-24-2022 Tobacco use panel [facility] Housing Instability Unknown [facility] Start: 1945 Sex Assigned At Not on file [facility] Medical Equipment Procedure Code Equipment Code Equipment Origin al Text Equipment Identifier Dates Mesh [id number] 3d Rect Plstr Clgn Symbotex 2 Sd Comp Mfl Babsr Rpl [id number] - Sna - [id number] Start: 06-30-2022 Dev Clsr 30fr Watchman 30mm - [id number] Start: 10-28-2018 Clinical Notes 12-24-2021 to 05-18-2023 Note Date & Type Note Facility 05-18-2023 Note [facility] Consult Note Reason for visit: Afib 05/18/23 Patient here for follow up muga scan per Dr. Jefferson. She denies chest pain, SOB, palpitations, and lightheadedness. MUGA scan is reportedly 32%. she is on optimal guideline directed medical therapy with beta-blockers, SGLT2 inhibitors, aldosterone blockers. she is not on RONDA inhibitor due to the fact that her blood pressure is on the lower side. 03/23/23 HPI: Saul Gutiérrez is a 77 y.o. year old with past medical history of HFrEF with EF of 35% as per an echocardiogram in May 2022, nonobstructive coronary artery disease as per cath on 01/05/2023 who previously had undergone a Watchman procedure in 2019 due to GI bleed. She was previously seen by [facility] cardiology. She was initially seen by Dr. CHUA for recent and had undergone a stress test that was positive and subsequently had a follow-up cardiac catheterization that revealed nonobstructive CAD. As well as a history of A-fib was concerned she has been known to have A-fib for quite some time and had previously been cardioverted twice with subsequent recurrence. as per the notes the longest time she has been in sinus rhythm is a year. She was seen by Virgil ADAMS in January 25, 2023 for A-fib and at that time a discussion regarding sinus rhythm maintenance with ablation was entertained but considered a poor candidate as she could not tolerate anticoagulation. Patient here for follow up event monitor and afib management per Virgil Foley DNP. She will be scheduled for muga scan per Dr. Jefferson next month. Says after her evening meal her stomach rolls and rolls and just sits there and she gets nauseous and throws up. She takes Jardiance in the morning and thinks it may be from that. Says at the end of the day her left thumb is very sore s/p heart cath. Left radial approach was used. Event monitor that was placed for 30 days notes that she is in chronic atrial fibrillation ventricular rate ranges anywhere from 50 on the lower side to a max of 100 -110bpm on the higher side. No significant AV blocks or VT seen. occasional PVCs were noted PMH: Past Medical History: Diagnosis Date Abnormal ECG Arrhythmia Atrial fibrillation (CMS/HCC) CHF (congestive heart failure) (CMS/HCC) Hypertension Sleep apnea PSH: Past Surgical History: Procedure Laterality Date HERNIA REPAIR 05/2022 SH: Social Determinants of Health Tobacco Use: Low Risk (12/28/2022) Patient History Smoking Tobacco Use: Never Smokeless Tobacco Use: Never Passive Exposure: Not on file Alcohol Use: Not on file Financial Resource Strain: Not on file Food Insecurity: Not on file Transportation Needs: Not on file Physical Activity: Not on file Stress: Not on file Social Connections: Not on file Intimate Partner Violence: Not on file Depression: Not on file Housing Stability: Not on file Allergies: Allergies Allergen Reactions Codeine Other reaction(s): Intolerance-unknown Lisinopril Other reaction(s): Dry cough Weight: 90.7kg Visit Vitals BP 112/70 (BP Location: Left arm, Patient Position: Sitting) Pulse 63 Ht 1.651 m (5' 5 ) Wt 90.7 kg (200 lb) SpO2 (!) 82% BMI 33.28 kg/m??? OB Status Postmenopausal Smoking Status Never BSA 2.04 m??? Meds: Current Outpatient Medications on File Prior to Visit Medication Sig Dispense Refill aspirin 81 mg EC tablet Take 81 mg by mouth 3 (three) times a week. baclofen (Lioresal) 10 mg tablet Take 10 mg by mouth in the morning, at noon, and at bedtime. coenzyme Q-10 100 mg capsule Take 100 mg by mouth in the morning. diclofenac (Voltaren) 50 mg EC tablet Take 50 mg by mouth if needed. empagliflozin (Jardiance) 25 mg Take 1 tablet (25 mg) by mouth in the morning. 30 tablet 11 furosemide (Lasix) 40 mg tablet Take 40 mg by mouth in the morning. losartan (Cozaar) 25 mg tablet Take 1 tablet (25 mg) by mouth in the morning. 90 tablet 3 metoprolol succinate XL (Toprol-XL) 50 mg 24 hr tablet Take 50 mg by mouth in the morning. oxyCODONE-acetaminophen (Percocet) 5-325 mg tablet Take 1 tablet by mouth if needed in the morning, at noon, and at bedtime for moderate pain (4-7 pain score). pantoprazole (ProtoNix) 40 mg packet Take 40 mg by mouth in the morning. pramipexole (Mirapex) 1 mg tablet Take 1.5 mg by mouth in the morning. spironolactone (Aldactone) 25 mg tablet Take 25 mg by mouth in the morning. sucralfate (Carafate) 1 gram tablet Take 1 g by mouth in the morning, at noon, in the evening, and at bedtime. traZODone (Desyrel) 50 mg tablet Take 50 mg by mouth at bedtime. VITAMIN B COMPLEX ORAL Take 1 capsule by mouth in the morning. No current facility-administered medications on file prior to visit. ROS: Review of Systems Musculoskeletal: Positive for arthritis, back pain and joint pain. All other systems reviewed and are negative. Physical Exam: Constitutional General Appearance: well-nourished, we (more content not included)... [facility] 03-23-2023 Note [facility] Consult Note Reason for visit: Afib HPI: Saul Gutiérrez is a 77 y.o. year old with past medical history of HFrEF with EF of 35% as per an echocardiogram in May 2022, nonobstructive coronary artery disease as per cath on 01/05/2023 who previously had undergone a Watchman procedure in 2019 due to GI bleed. She was previously seen by [facility] cardiology. She was initially seen by Dr. CHUA for recent and had undergone a stress test that was positive and subsequently had a follow-up cardiac catheterization that revealed nonobstructive CAD. As well as a history of A-fib was concerned she has been known to have A-fib for quite some time and had previously been cardioverted twice with subsequent recurrence. as per the notes the longest time she has been in sinus rhythm is a year. She was seen by Virgil ADAMS in January 25, 2023 for A-fib and at that time a discussion regarding sinus rhythm maintenance with ablation was entertained but considered a poor candidate as she could not tolerate anticoagulation. Patient here for follow up event monitor and afib management per Virgil Foley DNP. She will be scheduled for muga scan per Dr. Jefferson next month. Says after her evening meal her stomach rolls and rolls and just sits there and she gets nauseous and throws up. She takes Jardiance in the morning and thinks it may be from that. Says at the end of the day her left thumb is very sore s/p heart cath. Left radial approach was used. Event monitor that was placed for 30 days notes that she is in chronic atrial fibrillation ventricular rate ranges anywhere from 50 on the lower side to a max of 100 -110bpm on the higher side. No significant AV blocks or VT seen. occasional PVCs were noted PMH: Past Medical History: Diagnosis Date Abnormal ECG Arrhythmia Atrial fibrillation (CMS/HCC) CHF (congestive heart failure) (CMS/HCC) Hypertension Sleep apnea PSH: Past Surgical History: Procedure Laterality Date HERNIA REPAIR 05/2022 SH: Social Determinants of Health Tobacco Use: Low Risk (12/28/2022) Patient History Smoking Tobacco Use: Never Smokeless Tobacco Use: Never Passive Exposure: Not on file Alcohol Use: Not on file Financial Resource Strain: Not on file Food Insecurity: Not on file Transportation Needs: Not on file Physical Activity: Not on file Stress: Not on file Social Connections: Not on file Intimate Partner Violence: Not on file Depression: Not on file Housing Stability: Not on file Allergies: Allergies Allergen Reactions Codeine Other reaction(s): Intolerance-unknown Lisinopril Other reaction(s): Dry cough Weight: 91.2kg Visit Vitals Pulse 57 Ht 1.651 m (5' 5 ) Wt 91.2 kg (201 lb) SpO2 98% BMI 33.45 kg/m??? OB Status Postmenopausal Smoking Status Never BSA 2.05 m??? Meds: Current Outpatient Medications on File Prior to Visit Medication Sig Dispense Refill aspirin 81 mg EC tablet Take 81 mg by mouth 3 (three) times a week. baclofen (Lioresal) 10 mg tablet Take 10 mg by mouth in the morning, at noon, and at bedtime. coenzyme Q-10 100 mg capsule Take 100 mg by mouth in the morning. diclofenac (Voltaren) 50 mg EC tablet Take 50 mg by mouth in the morning. empagliflozin (Jardiance) 25 mg Take 1 tablet (25 mg) by mouth in the morning. 30 tablet 11 furosemide (Lasix) 40 mg tablet Take 40 mg by mouth in the morning. losartan (Cozaar) 25 mg tablet Take 1 tablet (25 mg) by mouth in the morning. 90 tablet 3 metoprolol succinate XL (Toprol-XL) 50 mg 24 hr tablet Take 50 mg by mouth in the morning. oxyCODONE-acetaminophen (Percocet) 5-325 mg tablet Take 1 tablet by mouth if needed in the morning, at noon, and at bedtime for moderate pain (4-7 pain score). pantoprazole (ProtoNix) 40 mg packet Take 40 mg by mouth in the morning. pramipexole (Mirapex) 1 mg tablet Take 1.5 mg by mouth in the morning. spironolactone (Aldactone) 25 mg tablet Take 25 mg by mouth in the morning. sucralfate (Carafate) 1 gram tablet Take 1 g by mouth in the morning, at noon, in the evening, and at bedtime. traZODone (Desyrel) 50 mg tablet Take 50 mg by mouth at bedtime. VITAMIN B COMPLEX ORAL Take 1 capsule by mouth in the morning. No current facility-administered medications on file prior to visit. ROS: Review of Systems Cardiovascular: Positive for dyspnea on exertion and palpitations ( sometimes, not often ). Gastrointestinal: Positive for nausea and vomiting. All other systems reviewed and are negative. Physical Exam: Constitutional General Appearance: well-nourished, well-developed, appears stated age Level of Distress: comfortable Psychiatric Mental Status: alert, normal affect Orientation: oriented to time, place, and person Insight: good judgement Eyes Lids and Conjunctivae: non-injected, no xanthelasma ENMT Ears: no lesions on external ear Nose: no lesions on external nose Oropharynx: no cyanosis, no (more content not included)... [facility] 02-04-2023 Note -s/p watchmen 2019[id number] for age x2, gender, hypertension, CHF, on aspirin s/p watchmen -she is in afib, rate is controlled - given longstanding history of A-fib and slow VR as well as having a Watchman device, we will do 30-day monitor to evaluate for RVR - at this time we will hold off on antiarrhythmic or cardioversion given that she is only on aspirin despite having Watchman due to unclear risk of stroke [facility] 02-04-2023 Note -will need BiV ICD if ICD indica halie [facility] 02-04-2023 Note -stable, [facility] 02-04-2023 Note -NYHA II, NICM, HFrE F EF 35%, pending MUGA scan in 2-3 months to reassess EF for ICD -nonobstruc cors 12/2022 -ct gdmt -she appears euvolemic and compensated [facility] 02-04-2023 Note -adv compliance with cpap [facility] 01-25-2023 Note [facility] Consult Note Reason for visit: new to EP, afib HPI: Saul Gutiérrez is a 77 y.o. year old with past medical history of Chronic HFrEF EF 35% per echo 05/2022, nonobstructive coronary arteries per cath 01/05/2023, chronic MORIN which is recently worsened, Watchman procedure 2019 due to high risk bleed related to GI bleed She was referred by Dr. Jefferson for her A-fib. She was following [facility] and self-referred to [facility] cardiology for second opinion. She recently underwent a stress test which was positive and then had a heart catheterization which showed nonobstructive coronary arteries. Patient is in A-fib for several years. She has been cardioverted at least twice which were only temporarily successful. The longest she has maintained sinus rhythm is a year. She has been experiencing worse MORIN is concerned about her A-fib. I discussed with her it appears her A-fib is not gone into rapid rate and given her longstanding history of A-fib we should consider a 30-day monitor to watch for RVR. Given her history of a Watchman device and intolerance of anticoagulation we are very limited to intervention due to risk of stroke with cardioversion whether chemical or electrical. We also discussed that she may not be a good candidate for an A-fib ablation if she cannot tolerate anticoagulation for minimum 3 months post ablation. Echo 05/2022 shows LA severely dilated Labs 12/24/2022 sodium 141, K4.4, BUN 40, creatinine 1.32, GFR 39 ECG/01/20 A-fib rate controlled PMH: Past Medical History: Diagnosis Date Abnormal ECG Arrhythmia Atrial fibrillation ([facility]/HCC) CHF (congestive heart failure) ([facility]) Hypertension Sleep apnea PSH: Past Surgical History: Procedure Laterality Date HERNIA REPAIR 05/2022 SH: Social Determinants of Health Tobacco Use: Low Risk (12/28/2022) Patient History Smoking Tobacco Use: Never Smokeless Tobacco Use: Never Passive Exposure: Not on file Alcohol Use: Not on file Financial Resource Strain: Not on file Food Insecurity: Not on file Transportation Needs: Not on file Physical Activity: Not on file Stress: Not on file Social Connections: Not on file Intimate Partner Violence: Not on file Depression: Not on file Housing Stability: Not on file Allergies: Allergies Allergen Reactions Codeine Other reaction(s): Intolerance-unknown Lisinopril Other reaction(s): Dry cough Weight: 86.6kg Visit Vitals BP 108/69 (BP Location: Left arm, Patient Position: Sitting) Pulse 67 Ht 1.651 m (5' 5 ) Wt 86.6 kg (191 lb) SpO2 97% BMI 31.78 kg/m??? OB Status Postmenopausal Smoking Status Never BSA 1.99 m??? Meds: Current Outpatient Medications on File Prior to Visit Medication Sig Dispense Refill aspirin 81 mg EC tablet Take 81 mg by mouth 3 (three) times a week. baclofen (Lioresal) 10 mg tablet Take 10 mg by mouth in the morning, at noon, and at bedtime. coenzyme Q-10 100 mg capsule Take 100 mg by mouth in the morning. diclofenac (Voltaren) 50 mg EC tablet Take 50 mg by mouth in the morning. empagliflozin (Jardiance) 25 mg Take 1 tablet (25 mg) by mouth in the morning. 30 tablet 11 furosemide (Lasix) 40 mg tablet Take 40 mg by mouth in the morning. losartan (Cozaar) 25 mg tablet Take 1 tablet (25 mg) by mouth in the morning. 90 tablet 3 metoprolol succinate XL (Toprol-XL) 50 mg 24 hr tablet Take 50 mg by mouth in the morning. oxyCODONE-acetaminophen (Percocet) 5-325 mg tablet Take 1 tablet by mouth if needed in the morning, at noon, and at bedtime for moderate pain (4-7 pain score). pantoprazole (ProtoNix) 40 mg packet Take 40 mg by mouth in the morning. pramipexole (Mirapex) 1 mg tablet Take 1.5 mg by mouth in the morning. spironolactone (Aldactone) 25 mg tablet Take 25 mg by mouth in the morning. sucralfate (Carafate) 1 gram tablet Take 1 g by mouth in the morning, at noon, in the evening, and at bedtime. traZODone (Desyrel) 50 mg tablet Take 50 mg by mouth at bedtime. VITAMIN B COMPLEX ORAL Take 1 capsule by mouth in the morning. No current facility-administered medications on file prior to visit. ROS: Cardio Basic Cardiovascular Symptoms: no lightheadedness, no leg edema, no syncope, no orthopnea, no PND, no claudication, Constitutional Constitutional: no fever, no night sweats, no significant weight gain, no significant weight loss, no exercise intolerance Eyes Eyes: no dry eyes, no irritation, no vision change ENMT Ears: no difficulty hearing, no ear pain Nose: no frequent nosebleeds, Mouth/Throat: no sore throat, no bleeding gums, no snoring, no dry mouth, no mouth ulcers, no oral abnormalities, no teeth problems Respiratory Respiratory: no cough, no wheezing, no coughing up blood, no sleep apnea Musculoskeletal Musculoskeletal: no muscle aches, no muscle weakness, joint pain+, no back pain, no swelling in the extremities Integumentary Skin no rash, no ulcer, (more content not included)... [facility] 01-25-2023 Note Patient here to disc uss possible afib ablation per Dr. Jefferson. She will be scheduled for muga scan in Mar 2023. Review of Systems Cardiovascular: Positive for dyspnea on exertion. All other systems reviewed and are negative. [facility] 01-18-2023 Note [facility] Note Chief Complaint: Patient here for follow up heart cath on 01/05/2023. HPI: Saul Gutiérrez is a 77 y.o. female With a history of heart failure with reduced ejection fraction; she is here in follow-up after recent cardiac catheterization. She seems to be doing well. She continues to have exertional shortness of breath. She denies chest pain. She had some mild tenderness over the left wrist after the procedure and bruising but this has improved. Cardiology ROS: Review of Systems Cardiovascular: Positive for chest pain (with exertion), dyspnea on exertion and palpitations. Respiratory: Positive for shortness of breath. All other systems reviewed and are negative. Past Medical History She has a past medical history of Abnormal ECG, Arrhythmia, Atrial fibrillation (CMS/HCC), CHF (congestive heart failure) (CMS/HCC), Hypertension, and Sleep apnea. Surgical History She has a past surgical history that includes Hernia repair (05/2022). Social History She reports that she has never smoked. She has never used smokeless tobacco. She reports that she does not drink alcohol. No history on file for drug use. Family History Family History Problem Relation Name Age of Onset Heart failure Father Allergies Codeine and Lisinopril Medications Current Outpatient Medications: aspirin 81 mg EC tablet, Take 81 mg by mouth 3 (three) times a week., Disp: , Rfl: baclofen (Lioresal) 10 mg tablet, Take 10 mg by mouth in the morning, at noon, and at bedtime., Disp: , Rfl: coenzyme Q-10 100 mg capsule, Take 100 mg by mouth in the morning., Disp: , Rfl: diclofenac (Voltaren) 50 mg EC tablet, Take 50 mg by mouth in the morning., Disp: , Rfl: empagliflozin (Jardiance) 25 mg, Take 1 tablet (25 mg) by mouth in the morning., Disp: 30 tablet, Rfl: 11 furosemide (Lasix) 40 mg tablet, Take 40 mg by mouth in the morning., Disp: , Rfl: losartan (Cozaar) 25 mg tablet, Take 1 tablet (25 mg) by mouth in the morning., Disp: 90 tablet, Rfl: 3 metoprolol succinate XL (Toprol-XL) 50 mg 24 hr tablet, Take 50 mg by mouth in the morning., Disp: , Rfl: oxyCODONE-acetaminophen (Percocet) 5-325 mg tablet, Take 1 tablet by mouth if needed in the morning, at noon, and at bedtime for moderate pain (4-7 pain score)., Disp: , Rfl: pantoprazole (ProtoNix) 40 mg packet, Take 40 mg by mouth in the morning., Disp: , Rfl: pramipexole (Mirapex) 1 mg tablet, Take 1.5 mg by mouth in the morning., Disp: , Rfl: spironolactone (Aldactone) 25 mg tablet, Take 25 mg by mouth in the morning., Disp: , Rfl: sucralfate (Carafate) 1 gram tablet, Take 1 g by mouth in the morning, at noon, in the evening, and at bedtime., Disp: , Rfl: traZODone (Desyrel) 50 mg tablet, Take 50 mg by mouth at bedtime., Disp: , Rfl: VITAMIN B COMPLEX ORAL, Take 1 capsule by mouth in the morning., Disp: , Rfl: Last Recorded Vitals BP 100/60 (BP Location: Left arm, Patient Position: Sitting) Pulse 68 Ht 1.651 m (5' 5 ) Wt 86.6 kg (191 lb) SpO2 99% BMI 31.78 kg/m??? Physical Examination: GENERAL: alert and oriented x3, well developed, in no acute distress. HEAD: atraumatic, normocephalic. EYES: TENA, EOMI. NECK: trachea midline, no JVD present, no carotid bruits present. CARDIAC: S1, S2 present. Irregular. No murmur, rubs, or gallops. RESPIRATORY: CTAB, no increased effort of breathing, no rales, rhonchi, or wheezing. ABDOMEN: soft, nontender, nondistended. EXTREMITIES: no lower extremity edema, peripheral pulses are 2+ bilaterally. No rash/skin discoloration present. NEURO: strength/sensation equal and symmetric in bilateral upper and lower extremities. PSYCH: appropriate mood, affect, and judgement. Investigations: Conclusion Cardiovascular Laboratory Report FINAL IMPRESSIONS: 1. Nonobstructive coronary arteries angiographically 2. Moderately reduced global left ventricular systolic function by noninvasive imaging RECOMMENDATIONS: 1. Aggressive cardiovascular factor modification 2. Optimal medical therapy for nonischemic cardiomyopathy; continue beta-minnie, angiotensin receptor minnie (as an ARNI was financially prohibitive), spironolactone and an SGLT2 inhibitor if affordable 3. The patient will need a MUGA scan in 90 days to evaluate her ejection fraction; if 35% or less will refer for possible implantable cardioverter defibrillator 4. In the interim, will refer to our electrophysiology colleagues for consideration of atrial fibrillation ablation given reduced ejection fraction and heart failure with reduced ejection fraction 5. Follow-up with Dr. Jefferson in the next 2 to 3 weeks Assessment: Chronic heart failure with reduced ejection fraction (HFrEF), recent worsening EF 35% by TTE 06/08/22 Nonischemic cardiomyopathy Normal coronaries by [facility] 2013 and 2022 Mitral regurgitation, moderate by TTE 05/2022 Persistent atrial fibrillation s/p repeat ca (more content not included)... [facility] 01-05-2023 Note Cardiovascular Labor atory Report FINAL IMPRESSIONS: Nonobstructive coronary arteries angiographically Moderately reduced global left ventricular systolic function by noninvasive imaging RECOMMENDATIONS: Aggressive cardiovascular factor modification Optimal medical therapy for nonischemic cardiomyopathy; continue beta-minnie, angiotensin receptor minnie (as an ARNI was financially prohibitive), spironolactone and an SGLT2 inhibitor if affordable The patient will need a MUGA scan in 90 days to evaluate her ejection fraction; if 35% or less will refer for possible implantable cardioverter defibrillator In the interim, will refer to our electrophysiology colleagues for consideration of atrial fibrillation ablation given reduced ejection fraction and heart failure with reduced ejection fraction Follow-up with Dr. Jefferson in the next 2 to 3 weeks PROCEDURES: Ultrasound-guided access to the left radial artery, bilateral selective coronary angiography via a left radial approach METHODS: After risks, benefits, and alternatives were explained, written informed consent was obtained. The patient was prepped and draped in usual sterile fashion over the left wrist. Local infiltration anesthesia was achieved of the left wrist. Using a micropuncture kit, access to the left radial artery was obtained. A 6 [place] glide sheath was inserted without difficulty. Bilateral selective coronary angiography was performed using JR 4.0 and JL 4.0 catheters. After reviewing the images, it was elected to conclude the procedure. The catheters were removed. The radial sheath was removed with application of a TR band per protocol to achieve optimal hemostasis. FINDINGS: Hemodynamics: AO 117/63 [91] LEFT VENTRICULOGRAPHY: This was not performed. Ejection fraction is 35% by noninvasive stress test. CORONARY ARTERIES: Left main coronary artery: This arises from the left coronary cusp, it bifurcates into the left anterior descending and left circumflex coronary arteries. It is free of significant stenosis. Left anterior descending coronary artery: This is angiographically nonobstructive. There is caliber reduction in the mid to distal portion of the vessel after giving rise to a long first diagonal. No discrete stenoses are seen. Left circumflex coronary artery: This is a dominant vessel giving rise to the posterior descending and posterolateral branches. It is angiographically nonobstructive. Right coronary artery: This arises from the right coronary cusp, it is a nondominant vessel that is nonobstructive. INDICATIONS: Newly reduced ejection fraction, heart failure with reduced ejection fraction [facility] 11-23-2022 Note [facility] Card[facility] Note Chief Complaint: Complains of shortness of breath, worse with exertion and heart fluttering at rest. HX of afib. HPI: Saul Gutiérrez is a 77 y.o. female presents for a second opinion. Currently seeing cardiology in [facility] she sees someone different at every visit and isn't very happy. Complains of shortness of breath, worse with exertion and heart fluttering at rest. HX of afib. The patient has had a longstanding history of atrial fibrillation; she underwent cardioversion at least twice. This was temporarily successful. The longest she was in sinus rhythm was a year. She was also on medications. She has not on the gone an ablation in the past. She had cardiac catheterization in 2013 that revealed no significant stenoses. Her ejection fraction has fluctuated between 40 to 45% and was most recently 35% by echocardiography. She has chronic shortness of breath that is worsened for the past month or so. She denies unintentional weight gain. She has had no orthopnea, paroxysmal external dyspnea or lower extremity edema. She denies significant chest pain. Cardiology ROS: Review of Systems Cardiovascular: Positive for chest pain (on occasion), dyspnea on exertion and palpitations. Respiratory: Positive for shortness of breath. All other systems reviewed and are negative. Past Medical History She has a past medical history of Abnormal ECG, Arrhythmia, Atrial fibrillation (CMS/HCC), CHF (congestive heart failure) (CMS/HCC), Hypertension, and Sleep apnea. Surgical History She has no past surgical history on file. Social History She has no history on file for tobacco use, alcohol use, and drug use. Family History No family history on file. Allergies Codeine and Lisinopril Medications No current outpatient medications on file. Last Recorded Vitals BP 132/78 (BP Location: Left arm, Patient Position: Sitting, BP Cuff Size: Adult) Pulse 57 Ht 1.651 m (5' 5 ) Wt 93.9 kg (207 lb) SpO2 96% BMI 34.45 kg/m??? Physical Examination: GENERAL: alert and oriented x3, well developed, in no acute distress. HEAD: atraumatic, normocephalic. EYES: TENA, EOMI. NECK: trachea midline, no JVD present, no carotid bruits present. CARDIAC: S1, S2 present. RRR. No murmur, rubs, or gallops. RESPIRATORY: CTAB, no increased effort of breathing, no rales, rhonchi, or wheezing. ABDOMEN: soft, nontender, nondistended. EXTREMITIES: no lower extremity edema, peripheral pulses are 2+ bilaterally. No rash/skin discoloration present. NEURO: strength/sensation equal and symmetric in bilateral upper and lower extremities. PSYCH: appropriate mood, affect, and judgement. Investigations Echo complete W/O contrast Order: [id number] Narrative Left Ventricle: Systolic function is moderately decreased with an ejection fraction of 35% visually. Global hypokinesis. Left Ventricle Left ventricle is moderately dilated. There is borderline increased wall thickness/hypertrophy. Systolic function is moderately decreased with an ejection fraction of 35% visually. The quantitative EF by 2D Arshad biplane is 36%. See wall score diagram for wall motion abnormalities. Unable to assess diastolic function due to atrial fibrillation/flutter. Lateral E' is 4.46 cm/s. Medial E' is 2.94 cm/s. Right Ventricle Right ventricular size appears normal. The right ventricular basal diameter is 29.0 mm. Systolic function is moderately reduced. Left Atrium Left atrium volume index is severely increased. The left atrial volume index is 66.2 mL/m2. Watchman left atrial appendage closure device 12/15/2018. Right Atrium Right atrium is mildly dilated. The right atrial area is 19.7 cm2. IVC/SVC The right atrial pressure is estimated at 8 mmHg. IVC appears dilated with increased right atrial pressure. There is partial collapse with deep inspiration. Mitral Valve The leaflets are mildly thickened. There is mild posterior annular calcification. There is moderate regurgitation with a posteriorly directed jet. There is no evidence of mitral valve stenosis. Tricuspid Valve The leaflets are mildly thickened. There is mild to moderate regurgitation. The tricuspid valve regurgitation jet is central. There is no evidence of tricuspid valve stenosis. The right ventricular systolic pressure is mildly elevated. RVSP calculated at 38 mmHg. RVSP is based on RA pressure of 8 mmHg. There is mild pulmonary hypertension. Aortic Valve The aortic valve is trileaflet. There is mild sclerosis. There is trace to mild regurgitation with centrally directed jet. Normal flow descending aorta. There is no evidence of aortic valve stenosis. Pulmonic Valve The pulmonic valve was not well visualized. There is trace regurgitation. There is no evidence of pulmonic valve stenosis. Ascending Aorta The aortic root is normal in size. Pericardium There is no pericardial effus (more content not included)... [facility] 07-23-2022 Note PAIN MANAGEMENT CONS ULTATION CONSULTATION DATE: 07/23/2022 TO: Larisa Staley CHIEF COMPLAINT: Left hip pain, left buttock pain. HISTORY OF PRESENT ILLNESS: She returns today complaining of 5-7/10 pain, sharp in nature, increased with activities such as standing, walking, performing transitioning maneuvers. Denied any change in bowel or bladder habits or new sensorimotor changes in the lower extremities. She recently underwent umbilical hernia surgery and reports she is recovery nicely from the same. EXAM: Her exam is notable for patient having no clinical radiculopathy or myelopathy involving the lower extremities. Patient did have dysesthesia and hypoesthesia along the distribution of the left iliohypogastric nerve. She also had tenderness along the left SI joint with equivocally positive left sided Gaenslen's maneuver, pelvic compression test and Monty's test. She had a moderate amount of myofascial spasm of the lumbar paravertebral muscles. IMPRESSION: Patient with chronic pain left iliohypogastric nerve, including the lateral branch; question the lateral cutaneous branch, as well as #2 left SI joint dysfunction and myofascial spasm. RECOMMENDATIONS: I have recommended she continue with the baclofen as prescribed. She is stable on her current dose of Percocet, the 5 mg t.i.d.; Lyrica 50 mg at h.s. I have asked her to continue with the same. Since she is stable, I have recommended to have her return to the office in three months' time or sooner if needed. [facility] 03-26-2022 Note CONSULTATION CONSULTATION DATE: 03/26/2022 This is a pleasant 76-year-old female who returns to the clinic status post right gluteal trigger point and three-month follow-up for chronic lower back pain. She was last seen on 12/24/2021 when she received a gluteal trigger point injection and she was afforded approximately 30% relief. The patient does have an old spinal canal stenosis. She consistently has bilateral lower extremity radicular pain and reports that after sitting for a long period of time, that she does have leg weakness. She feels it has been progressive. She has had multiple procedures in the past and has normally had long-term success with epidurals. Her last epidural which was completed on 12/24/2020 gave her short-term relief for a couple of days only. Activities such as housework, lifting, physical activity and ADLs aggravate her pain. She does use heat and ice intermittently which is helpful. Medications include Baclofen 10 mg q.h.s., Percocet 5/325 t.i.d., trazadone 50 mg q.h.s. and the multivitamin regimen. She also complains of bilateral leg cramps mainly through the night but occasionally throughout the day. She is on Mirapex 1 mg a day and takes 400 mg of magnesium daily. REVIEW OF SYSTEMS, PAST MEDICAL HISTORY, ALLERGIES AND IMAGES: Have been reviewed and noted in the chart. PHYSICAL EXAM: VITAL SIGNS: Blood pressure 126/77, heart rate is 75, temperature is 96.8. Height is 5'5 , weighs 96.7 kg. GENERAL APPEARANCE: Pleasant, appropriate, in no acute distress. BACK: Range of motion is functional lateral rotation and flexion/extension. Paravertebral muscles are non-spasmodic but taut. Kasey's point nontender bilaterally with negative Aubrey's and compression test. MUSCULOSKELETAL: Muscle atrophy noted bilateral lower extremities. She does not use an assistive device to ambulate. She walks with a steady, antalgic gait. Muscle weakness noted bilaterally to anterior tibialis. Extensors are intact. NEUROLOGICAL: Diffuse polyneuropathy bilateral lower extremities. Blunted patellar and Achilles reflexes. DIAGNOSIS: Lumbar spinal canal stenosis, lumbar spondylosis, lumbar degenerative disease and lumbar radiculitis. PLAN: We will trial Lyrica 50 mg q.h.s. I did instruct her to please call the clinic in two weeks' time to report efficacy and to see if adjustment is needed. She is to increase her magnesium to 800 mg q.h.s. She is to continue with her vitamin regimen as well. Will see her in three months' time unless otherwise indicated. The patient agrees with the plan of care. [facility] 12-24-2021 Note CONSULTATION PROCEDURE DATE: 12/24/2021 PREOPERATIVE DIAGNOSIS: Right gluteal spasm. POSTOPERATIVE DIAGNOSIS: Right gluteal spasm. PROCEDURE: Right gluteal trigger point injection. Subsequent to obtaining informed consent, the patient was placed in the upright standing forward flexion position. Alcohol prep was used to sterilize the site. A 25 gauge needle with 0.125% Marcaine and 40 mg of Kenalog was placed inside the trigger zone. Negative heme. Medication was injected in a fan-like pattern. The patient tolerated the procedure well with no complications. [facility] 12-24-2021 Note CONSULTATION CONSULTATION DATE: 12/24/2021 HISTORY OF PRESENT ILLNESS: This is a pleasant, 76-year-old female returning to the clinic status post RFA of left lumbar L3, L4, L5, which was completed on 11/04/2021. The patient states she received approximately 50-60% relief. Approximately three weeks ago, patient had an incident where she was standing at a desk and turned to the right and felt a sharp shooting pain and a pull that went down her right buttock to her leg. She has seen a chiropractor a couple times since then, which gave her just slight relief. She does report her pain is 7-8/10 today, which is dull and achy, in that region only. Activities that aggravate that pain are lifting, bending, stairs and physical activity. She does take Percocet 5/325 t.i.d., trazodone and she uses Voltaren gel. She does, today, have some numbness and tingling to the right leg that does not go below the knee. Patient's REVIEW OF SYSTEMS / PAST MEDICAL HISTORY / ALLERGIES and IMAGES have been reviewed and they are noted on the chart. PHYSICAL EXAM: VITAL SIGNS: Blood pressure is 123/76. Heart rate is 64. Temperature is 97.1. She is 5'5 and weighs 209 pounds. GENERAL APPEARANCE: Pleasant, appropriate, no acute distress, but uncomfortable in the chair. FOCUSED EXAM - BACK: Range of motion is functional in lateral rotation and flexion/extension. Reproduction of patient's pain pattern to right posterior gluteal muscle compression. Trigger point identified, positive jump response. MUSCULOSKELETAL: Motor is intact, 4/5 bilaterally. Patient does walk with a stable gait. Does not use an assistive device. NEUROLOGICAL: Patchy hypoesthesia noted along L4, L5 dermatome to the level of the knee to the right leg. +2 bilateral patellar reflexes. IMPRESSION: Right gluteal spasm, lumbar spondylosis, lumbar degenerative disc disease. PLAN: She will receive a right gluteal trigger point injection in the office today, which she does consent to. It was discussed to continue with her heat rub and stretches were shown in the office. Nutrition was stressed. Patient will be seen in the clinic in three months' time, unless otherwise indicated. [facility] Evaluation note Diagnosis Essential hypertension- Primary Unspecified essential hypertension documented in this encounter [facility] SystemInstructionsNot on filedocumented in this encounter [facility] Summary Purpose Family History No Family History Records FoundNo Family History Records FoundNo Family History Records Found Advance Directives No Advanced Directives Records FoundNo Advanced Directives Records FoundNo Advanced Directives Records Found Additional Source Comments INFORMATION SOURCE (unrecogn ized section and content) DATE CREATED AUTHOR 07/25/2020 [facility] DATE CREATED AUTHOR AUTHOR'S ORGANIZ ATION 10/12/2022 [facility] DATE CREATED AUTHOR AUTHOR'S ORGANIZ ATION 05/19/2023 [facility] Reason for Visit (unrecogniz ed section and content) Reason Comments Med Refill Care Teams (unrecognized sec tion and content) Check Processor Relationship Specialty Start Date End Date Heaven Staley APRN-VICKIE [address] [facility] [id number] PCP - General Family Medicine 10/30/21 FOR RECORDS PERTAINING TO PATIENTS WHO ARE OR HAVE BEEN ENROLLED IN A CHEMICAL DEPENDENCY/SUBSTANCEABUSE PROGRAM, SOME INFORMATION MAY BE OMITTED. This clinical summary was aggregated from multiple sources. Caution should be exercised in using it in the provision of clinical care. This summary normalizes information from multiple sources, and as a consequence, information in this document may materially change the coding, format and clinical context of patient data. In addition, data may be omitted in some cases. CLINICAL DECISIONS SHOULD BE BASED ON THE PRIMARY CLINICAL RECORDS. [employer] provides no warranty or guarantee of the accuracy or completeness of information in this document.
[2023-06-28 11:32] LABS: Basophils Percent Auto 0.4 % (0.2-2.0); Eosinophils Absolute Auto 0.3 10^3/uL (0.0-0.7); Hematocrit 43.1 % (36.0-48.0); Hemoglobin 13.5 g/dL (12.0-16.0); Immature Granulocytes Abs Auto 0.05 10^3/uL (0.00-0.03); Immature Granulocytes Pct Auto 0.5 % (0.0-0.5); Lymphocytes Absolute Auto 2.3 10^3/uL (1.2-3.8); Lymphocytes Percent Auto 22.3 % (20.5-60.0); Mean Corpuscular HGB Conc 31.3 g/dL (29.9-35.2); Mean Corpuscular Hemoglobin 31.3 pg (26.7-34.0); Mean Platelet Volume 10.8 fL (9.5-13.5); Monocytes Absolute Auto 0.6 10^3/uL (0.3-0.8); Monocytes Percent Auto 5.3 % (1.7-12.0); Neutrophils Absolute Auto 7.2 10^3/uL (1.4-6.5); Neutrophils Percent Auto 68.5 % (43.0-75.0); Platelet Count 277 10^3/uL (150-450); Red Blood Count 4.31 10^6/uL (4.20-5.40); Red Cell Distribution Width 13.9 % (11.0-15.0); White Blood Count 10.5 10^3/uL (4.0-11.0)
[2023-06-28 12:18] LABS: Alanine Aminotransferase 34 U/L (14-59); Albumin Globulin Ratio 0.8; Albumin Level 3.4 g/dL (3.4-5.0); Alkaline Phosphatase 181 U/L (46-116); Anion Gap 12.4; Aspartate Amino Transferase 25 U/L (15-37); BUN Creatinine Ratio 24.1; Bilirubin Total 0.5 mg/dL (0.2-1.0); Calcium 9.1 mg/dL (8.5-10.1); Carbon Dioxide 26.7 mmol/L (21.0-32.0); Chloride 108 mmol/L (98-107); Estimated GFR (African America 42 (>=60); Estimated GFR (Non-African Ame 35 (>=60); Globulin 4.4 g/dL; Glucose 100 mg/dL (74-106); Potassium 5.1 mmol/L (3.5-5.1); Sodium 142 mmol/L (136-145); Total Protein 7.8 g/dL (6.4-8.2)
== END 2023-06-28 11:10 | disposition home or self-care (01) ==
LOC: LAB 11:10
PROVIDERS: PCP Nurse Practitioner Family; Visit Provider Internal Medicine Cardiovascular Disease
DX: I42.0 Dilated cardiomyopathy (principal)
CPT/HCPCS: 36415; 80053; 85025

== ENCOUNTER 2023-07-06 11:09 | Outpatient (OUT) | payer MEDICARE, SELFPAY ==
--- NOTE | 2023-07-06 11:15 | XR_ITS ---
The [address] [address] Patient Name: SAUL GUTIÉRREZ MRN: [id number] date: 1945 Sex: F Assigned Patient Location: [facility] Current Patient Location: [facility] Accession/Order Number: [id number] Exam Date: 07/06/2023 11:25 Report Date: 07/06/2023 11:46 At the request of: [employer] Procedure: XR chest 2V EXAM: XR chest 2V HISTORY: dilated Cardiomyopathy I42.0 COMPARISON: None. TECHNIQUE: PA and lateral views of the chest. FINDINGS: The cardiomediastinal silhouette is enlarged. Left-sided cardiac pacemaker with atrial and ventricular leads. No focal consolidation is identified. There is no pneumothorax. No pleural effusion is noted. The osseous structures are intact. XR/XR chest 2V IMPRESSION: Cardiomegaly. Electronically authenticated by: YARITZA MOREL Date: 07/06/2023 11:46
== END 2023-07-06 11:10 | disposition home or self-care (01) ==
LOC: RAD 11:11
PROVIDERS: PCP Nurse Practitioner Family; Visit Provider Internal Medicine Cardiovascular Disease
DX: I42.0 Dilated cardiomyopathy (principal)
CPT/HCPCS: 71046

== ENCOUNTER 2023-07-28 07:44 | Outpatient (OUT) | payer MEDICARE, SELFPAY ==
--- OUTSIDE RECORDS SUMMARY | 2023-07-28 07:47 | XMS_ITS | CCD ---
Author Name Unknown Address [address] [place] [address] Organization [facility] Care Team Providers Care Mill Helper Name Role Phone JOHNSON ., DR JAYLON Ruelas Admitting Unavailable ORNELAS ., DR JAYLON Ruelas Attending [facility]available [facility] Unavailable ORNELAS ., DR JAYLON Ruelas Consulting Unavailable MICHELINE MOLINA Consulting Unavailable ORNELAS ., DR JAYLON Ruelas Admitting Unavailable ORNELAS ., DR JAYLON Ruelas Attending Unavailable [facility] Primary Care Unavailable RODRIGUEZ ., SABRINA Consulting Unavailable ORNELAS ., DR JAYLON Ruelas Admitting Unavailable ORNELAS ., DR JAYLON Ruelas Attending Unavailable [facility] Primary Care Unavailable RODRIGUEZ ., SABRINA Consulting Unavailable [facility] Primary Care Unavailable LAKSHMIPATHY ., NARENDRANATH Admitting Charity vailable LAKSHMIPATHY ., NARENDRANATH Attending Charity vailable LAKSHMIPATHY ., NARENDRANATH Consulting Charity vailable LAKSHMIPATHY ., NARENDRANATH Admitting Charity vailable LAKSHMIPATHY ., NARENDRANATH Attending Charity vailable [facility] Primary Care Unavailable LUÍS, HEAVEN Admitting Unavailable LUÍS HEAVEN Attending Unavailable [facility] Primary Care Unavailable DR OSWALDO VALENZUELA Consulting Unavailable HEAVEN STALEY Consulting Unavailable [facility] Primary Care Unavailable DAREK Salmon, KEILY Admitting Unavailable KEILY DO Attending Unavailable KEILY DO Consulting Unavailable KELSIE DEL ANGEL Consulting Unavailable Heaven Steven Primary Care Provider MATT JEFFERSON Attending Unavailable ROBERT MADDEN Referring Unavailable MATT JEFFERSON Admitting Unavailable MATT JEFFERSON Attending Unavailable ROBERT MADDEN Admitting Unavailable ROBERT MADDEN Attending Unavailable ROBERT MADDEN Referring Unavailable ROBERT MADDEN Attending Unavailable ROBERT MADDEN Attending Unavailable ADELAIDA RIZO Attending Unavailable MATT JEFFERSON Attending Unavailable VIRGIL FOLEY Attending Unavailable SIVA Referring Unavailable Allergies Allergy Classification Reported Allergen(s) Allergy Type Date of Onset Reaction(s) Facility (2 sources) Codeine; Translations: [CODEINE] Drug Allergy 06-06-2014 [facility] Repository (1 source) Codeine Drug Allergy 06-06-2014 [facility] (2 sources) Lisinopril; Translations: [LISINOPRIL] Drug Allergy 10-19-2014 [facility] Medications Current Medications Medication Drug Class(es) [...] 30 tablet 1 06/08/2023 Active lactobacillus acidophilus [id number] unt oral capsule (1 source) take 1 tablet by mouth once daily Lactobacillus acidophilus 10 billion cell capsule Take 1 tablet by mouth daily. 0 Active 24 hr metoprolol succinate 50 mg extended release oral tablet (1 source) beta-Adrenergic Андрей Start: 04-28-2023 take 1 tablet by mouth [...] Indications: Chronic systolic CHF (congestive heart failure) ([facility]) Take 1 tablet (25 mg total) by [...] oral tablet (1 source) Angiotensin 2 Receptor Андрей Start: 08-10-2022 take 0.5 tablet by mouth [...] 06-06-2014 Resolved: 10-11-2020 10-11-2020 Chronic Conduction disorders (4 sources) Left bundle branch block; Translations: [Left bundle-branch block, unspecified] Onset: 07-13-2014 Resolved: 02-24-2018 10-11-2020 Chronic Congestive heart failure; nonhypertensive (6 sources) Chronic systolic heart failure; Translations: [Chronic systolic (congestive) heart failure] Onset: 08-25-2018 10-11-2020 Chronic Deficiency and other anemia (1 source) Anemia, unspecified; Translations: [ANEMIA UNSPECIFIED] Onset: 09-26-2022 Episodic Diabetes mellitus without complication (1 source) Other abnormal glucose; Translations: [OTHER ABNORMAL GLUCOSE] Onset: 09-26-2022 Episodic Essential hypertension (6 sources) Essential (primary) hypertension; Translations: [Essential hypertension] Onset: 02-18-2022 Chronic Other circulatory disease (3 sources) Presence of other cardiac implants and grafts; Translations: [Other specified cardiac device in situ] Onset: 11-03-2018 10-11-2020 Chronic Other hereditary and degenerative nervous system conditions (1 source) Restless legs; Translations: [Restless legs syndrome] Onset: 06-05-2022 06-05-2022 Chronic Other nervous system disorders (5 sources) Other chronic pain; Translations: [OTHER CHRONIC PAIN] Onset: 11-06-2021 Chronic Other nutritional; endocrine; and metabolic disorders (1 source) Obesity; Translations: [Obesity, unspecified] Onset: 10-11-2020 10-11-2020 Chronic Other nutritional; endocrine; and metabolic disorders (1 source) Body mass index 30+ - obesity; Translations: [Body mass index (BMI) 34.0-34.9, adult] Onset: 02-18-2022 02-18-2022 Chronic Darleen-; endo-; and myocarditis; cardiomyopathy (except that caused by tuberculosis or sexually transmitted disease) (4 sources) Cardiomyopathy; Translations: [Other cardiomyopathies] Onset: 06-06-2014 Resolved: 08-25-2018 10-11-2020 Chronic Residual codes; unclassified (1 source) Sleep [...] PAIN, UNSPECIFIED] Onset: 11-06-2021 Unclassified (2 sources) Other persistent atrial fibrillation; Translations: [Other persistent atrial fibrillation] Onset: 07-14-2023 Unclassified (2 sources) Longstanding persistent atrial fibrillation; Translations: [Longstanding persistent atrial fibrillation] Onset: 03-23-2023 Unclassified (2 sources) Permanent atrial fibrillation; Translations: [...] 10-11-2020 Episodic Other aftercare (1 source) Other intermission coordinator (current) drug therapy; Translations: [OTH SKILLED NURSING CURRENT DRUG THERAPY] Onset: 05-19-2022 Episodic Other [...] Value Interpretation Reference Range Facility Office Visiton 07-14-2023 Follow-up visit [id number] Radha Gutiérrez 1945 F Date Provider Department Center 07/14/2023 ADELAIDA VALENCIA Family History Problem Relation Age of Onset Heart failure Father Family Status - Relation Status Age at Father Level of Service:05705 [place] POSTOP FOLLOW UP VISIT RELATED TO ORIGINAL PX Normal [facility] HPon 07-05-2023 [facility] Electrophysiology Consult Note Reason for visit: Afib [...] is on the lower side. 03/23/23 HPI: Radha Gutiérrez is a 77 y.o. year old with past medical history of HFrEF with EF of 35% as per an echocardiogram in May 2022, nonobstructive coronary artery disease as per cath on 01/05/2023 who previously had undergone a Watchman procedure in 2019 due to GI bleed. She was previously seen by [facility] cardiology. She was initially seen by Dr. [...] 50 mg by mouth in the morning. oxyCODONE-acetaminoph en (Percocet) 5-325 mg tablet Take 1 tablet [...] Appearance: well-nourished, we (more content not included)... [facility] NURSNOTEon 07-05-2023 NURSNOTE RN educated pt on d/ c instructions. RN encouraged pt to voice any questions or concerns. Pt verbalizes no questions or concerns at this time. Pt was wheeled off of unit with all of belongings. [facility] NURSNOTE CHG wipes and betadine nasal swabs completed. [facility] Orders Onlyon 07-05-2023 Orders Only [id number] Radha Gutiérrez 1945 F Date Provider Department Center 07/05/2023 ELENA ATWOOD [facility] VASC LAB [place] HeartVAS Family History Problem Relation Age of Onset Heart failure Father Family Status - Relation Status Age at Father [facility] Office Visiton 05-18-2023 Follow-up visit [id number] Radha Gutiérrez 1945 Provider Department Center 05/18/2023 ROBERT GEE Family History Problem Relation Age of Onset Heart failure Father Family Status - Relation Status Age at Father Level of Service:97062 [place] OFFICE/OUTPATIENT ESTABLISHED MOD MDM 30 MIN (GC) [facility] Office Visiton 03-23-2023 Follow-up visit [id number] Radha Gutiérrez 1945 F Date Provider Department Center 03/23/2023 ROBERT GEE Family History Problem Relation Age of Onset Heart failure Father Family Status - Relation Status Age at Father Level of Service:10794 [place] OFFICE/OUTPATIENT NEW MODERATE MDM 45-59 MINUTES Normal [facility] Office Visiton 01-25-2023 Follow-up visit [id number] Radha Gutiérrez 1945 Provider Department Center 01/25/2023 Nneka6-NALLELY FOLEYNY RAQUEL MAGNUS [place] Family History Problem Relation Age of Onset Heart failure Father Family Status - Relation Status Age at Father Level of Service:65606 [place] OFFICE/OUTPATIENT ESTABLISHED MOD MDM 30-39 MIN Normal [facility] Office Visiton 01-18-2023 Follow-up visit [id number] Radha Gutiérrez 1945 Provider Department Center 01/18/2023 271-MATT JEFFERSON Family History Problem Relation Age of Onset Heart failure Father Family Status - Relation Status Age at Father Level of Service:47836 [place] OFFICE/OUTPATIENT ESTABLISHED MOD MDM 30-39 MIN Normal [facility] Marlene 01-05-2023 ANES - Attestation signed by Matt Jefferson MD at 01/05/2023 9:33 AM Matt Jefferson MD, MPH, [facility], PSYCHI[facility]IC, [facility] Interventional Cardiology Pager Email: [email or web address] Patient: Radha Gutiérrez Procedure Information Date/Time: 01/05/2330 Procedure: Coronary angiography (Left) Location: [facility] ACREAGE REPORTER 3 / [facility] VASCULAR LAB (Cath) Providers: Matt Jefferson [...] discussed with attending. Additional Equipment Requests Normal [facility] CBCon 01-05-2023 Erythrocyte distribution width (RBC) [Ratio] 14.8 % Normal 11.5-15.0 [facility] Comment on above: Performed By: #### L [id number] ####[facility] ([facility])[address] [place] [address] ERYTHROCYTE MEAN CORPUSCULAR HEMOGLOBIN CONCENTRATION (G/DL) BY AUTOMATED 31.4 g/dL Low 32.0-35.0 [facility] Comment on above: Performed By: #### L [id number] ####[facility] ([facility])[address] [place] [address] Hematocrit (Bld) [Volume fraction] 42.0 % Normal 36.0-48.0 [facility] Comment on above: Performed By: #### L [id number] ####[facility] ([facility])[address] [place] [address] Hemoglobin (Bld) [Mass/Vol] 13.2 g/dL Normal 12.0-15.0 [facility] Comment on above: Performed By: #### L [id number] ####[facility] ([facility])[address] [place] [address] MCH (RBC) [Entitic mass] 30.3 pg Normal 27.0-33.0 [facility] Comment on above: Performed By: #### L [id number] ####[facility] ([employer])[address] [place] [address] MCV (RBC) [Entitic vol] 96.3 fL Normal 82.0-98.0 [facility] Comment on above: Performed By: #### L [id number] ####[facility] ([facility] [place] [address] PLATELETS (10*3/UL) IN BLOOD AUTOMATED COUNT 231 10*3/uL Normal 150-400 [facility] Comment on above: Performed By: #### L [id number] ####[facility] ([facility])[address] [place] [address] RBC (Bld) [#/Vol] 4.36 10*6/uL Normal 3.80-5.00 [facility] Comment on above: Performed By: #### L [id number] ####[facility] ([facility])[address] [place] [address] WBC (Bld) [#/Vol] 8.83 10*3/uL Normal 4.00-10.60 [facility] Comment on above: Performed By: #### L [id number] ####[facility] ([facility])[address] [place] [address] HPon 01-05-2023 HP - Attestation signed by Matt Jefferson MD at [...] documentation from me. Matt Jefferson MD, MPH, [facility], [facility] Interventional Cardiology Pager Email: [email or web address] History Of Present Illness Radha Gutiérrez is a 77 y.o. female with history of Afib, CKD III, nonischemic cardiomyopathy, with new drop of EF from 40-45% to 35% presenting for coronary angiography. Patient was evaluated in office in October 2022 for second opinion. She was referred for stress test which was reportedly positive (done in [facility] Patient reports exertional shortness of breath and [...] mg by mouth in the morning. 01/04/2023 oxyCODONE-acetaminoph en (Percocet) 5-325 mg tablet Take 1 tablet [...] SpO2 100 %. Relevant Results HB 13.2 Executive Candidate Developer 1.32 Assessment/Plan Principal Problem: Abnormal cardiovascular stress test 1- Abnormal Stress test 2- HFrEF with new reduction of EF (40-45% down to 35%) 3- History of NICM 4- Normal coronary angio in 2013 5- Exertional Dyspnea Plan to proceed with coronary angiography today. Normal [facility] NURSNOTEon 01-05-2023 RENETTA RN educated pt on d/ c instructions. RN encouraged pt to voice any questions or concerns. Pt verbalizes no questions or concerns at this time. Pt was wheeled off of unit with all of belongings. Normal [facility] Orders Onlyon 12-18-2022 Orders Only [id number] Radha Gutiérrez 1945 Provider Department Center 12/18/2022 928-CARIDAD LOVE CARD [facility] Family History Problem Relation Age of Onset Heart failure Father Family Status - Relation Status Age at Father Normal [facility] Office Visiton 11-23-2022 Follow-up visit [id number] Radha Gutiérrez 1945 Provider Department Center 11/23/2022 271-PEGGYShelleyMATT CARD [facility] Family History Problem Relation Age of Onset Heart failure Father Family Status - Relation Status Age at Father Level of Service:24887 [place] OFFICE/OUTPATIENT [facility] MDM 60-74 MINUTES Normal [facility] INSULINon 09-23-2022 Insulin 7.9 uIU/mL Normal 2.6-24.9 [facility] Comment on above: Performed By: #### I NSULIN ####[facility] [address] [place], [place] [address]Dr. Novalilliana Dior CBC AUTO DIFFon 09-22-2022 BASO # 0.0 103/ul Normal 0.0-0.1 [facility] Comment on above: Performed By: #### C BC ####[facility] [address] [place] [address]Dr. Ravin Dior Basophils/100 WBC (Bld) 0.4 % Normal 0.2-2.0 [facility] Comment on above: Performed By: #### C BC ####[facility] [address] [place] [address]Dr. Ravin iDor EO # 0.6 103/ul Normal 0.0-0.7 [facility] Comment on above: Performed By: #### C BC ####[facility] [address] [place], [place] [address]Dr. Novalilliana Dior Eosinophils/100 WBC (Bld) 6.6 % Normal 0.9-7.0 [facility] Comment on above: Performed By: #### C BC ####[facility] [address] [place] [address]Dr. Ravin Dior Erythrocyte distribution width (RBC) [Ratio] 16.2 % Critically high 11.0-15.0 [facility] Comment on above: Performed By: #### C BC ####[facility] [address] [place], [place] [address]Dr. Ravin Dior Hematocrit (Bld) [Volume fraction] 43.3 % Normal 36.0-48.0 [facility] Comment on above: Performed By: #### C BC ####[facility] [address] [place], [place] [address]Dr. Ravin Dior Hemoglobin (Bld) [Mass/Vol] 13.4 g/dL Normal 12.0-16.0 [facility] Comment on above: Performed By: #### C BC ####[facility] [address] [place], [place] [address]Dr. Ravin Dior IG # 0.05 10e3/ul Critically high 0.00-0.03 [facility] Comment on above: Performed By: #### C BC ####[facility] [address] [place], [place] [address]Dr. Ravin Dior IG % 0.5 % Normal 0.0-0.5 [facility] Comment on above: Performed By: #### C BC ####[facility] [address] [place], [place] [address]Dr. Ravin Dior LYMPH # 2.1 103/ul Normal 1.2-3.8 [facility] Comment on above: Performed By: #### C BC ####[facility] [address] [place], [place] [address]Dr. Ravin Dior Lymphocytes/100 WBC (Bld) 23.1 % Normal 20.5-60.0 [facility] Comment on above: Performed By: #### C BC ####[facility] [address] [place], [place] [address]Dr. Ravin Dior MANUAL DIFF REQ NO Normal [facility] Comment on above: Performed By: #### C BC ####[facility] [address] [place] [id number]. Ravin Dior MCH (RBC) [Entitic mass] 29.5 pg Normal 26.7-34.0 [facility] Comment on above: Performed By: #### C BC ####[facility] [address] [place] [id number]. Ravin Dior MCHC (RBC) [Mass/Vol] 30.9 g/dL Normal 29.9-35.2 [facility] Comment on above: Performed By: #### C BC ####[facility] [address] [place] [id number]. Ravin Ovi MCV (RBC) [Entitic vol] 95.4 fL Normal 81.0-99.0 [facility] Comment on above: Performed By: #### C BC ####[facility] [address] [place], [place] [address]Dr. Ravin Dior MONO # 0.5 103/ul Normal 0.3-0.8 [facility] Comment on above: Performed By: #### C BC ####[facility] [address] [place], [place] [address]Dr. Novalilliana Dior Monocytes/100 WBC (Bld) 5.8 % Normal 1.7-12.0 [facility] Comment on above: Performed By: #### C BC ####[facility] [address] [place], [place] [address]Dr. Ravin Dior NEUT # 5.8 103/ul Normal 1.4-6.5 [facility] Comment on above: Performed By: #### C BC ####[facility] [address] [place], [place] [id number]. Ravin Dior Neutrophils/100 WBC (Bld) 63.6 % Normal 43.0-75.0 [facility] Comment on above: Performed By: #### C BC ####[facility] [address] [place], [place] [address]Dr. Ravin Dior Platelet mean volume (Bld) [Entitic vol] 10.7 fL Normal 9.5-13.5 [facility] Comment on above: Performed By: #### C BC ####[facility] [address] [place], [place] [address]Gr. Ravin Dior PLT 223 103/ul Normal 150-450 [facility] Comment on above: Performed By: #### C BC ####[facility] [address] [place], [place] [address]Bc. Ravin Dior RBC 4.54 106/ul Normal 4.20-5.40 [facility] Comment on above: Performed By: #### C BC ####[facility] [address] [place], [place] [address]Mr. Ravin Dior WBC 9.2 103/ul Normal 4.0-11.0 [facility] Comment on above: Performed By: #### C BC ####[facility] [address] [place] [id number]. Ravin Dior FREE THYROXINE INDEX T7on FTI 2.44 Normal 1.30-4.50 [facility] Comment on above: Performed By: #### C MP, T7, TSH, LIPID #### [facility] [address] [place] [address] [address] Ravin Dior T3U 33.0 % Normal 30.0-39.0 [facility] Comment on above: Performed By: #### C MP, T7, TSH, LIPID #### [facility] [address] [place], [place] [address] Dr. Ravin Dior T4 [Mass/Vol] 7.40 ug/dL Normal 4.80-13.90 [facility] Comment on above: Performed By: #### C MP, T7, TSH, LIPID #### [facility] [address] [place] [address] [address] Ravin Dior GLYCOHEMOGLOBIN A1Con 2022 ADA RECOMMENDATION SEE BELOW Normal [facility] Comment on above: Result Comment: ADA RECOMMENDED LIMIT 4.0 - 6.0 ADA THERAPEUTIC TARGET < 7.0 ACTION SUGGESTED > 7.0 Performed By: #### A 1C ####[facility] [address] [place] [address]Dr. Ravin Dior Glucose [Mass/Vol] 105 mg/dL Normal [facility] Comment on above: Performed By: #### A 1C ####[facility] [address] [place] [id number]. Ravin Dior HbA1c (Bld) [Mass fraction] 5.3 % Normal 4.5-6.2 [facility] Comment on above: Performed By: #### A 1C ####[facility] [address] [place] [id number]. Ravin Dior IRONon 09-22-2022 Iron [Mass/Vol] 81.0 ug/dL Normal 50.0-170.0 [facility] Comment on above: Performed By: #### I SEAMUS ####[facility] [address] [place], [place] [address]Dr. Ravin Dior LIPID PROFILEon 09-22-2022 CHOL-HDL RATIO NORM SEE BELOW Normal [facility] Comment on above: Result Comment: 3.3 - 4.4 LOW RISK 4.4 - 7.1 AVERAGE RISK 7.1 - 11.0 MODERATE RISK >11.0 HIGH RISK Performed By: #### C MP, T7, TSH, LIPID ####[facility] [address] [place] [address]Dr. Ravin Dior Cholesterol [Mass/Vol] 159 mg/dL Normal <=200 [facility] Comment on above: Performed By: #### C MP, T7, TSH, LIPID ####[facility] [address] [place] [id number]. Ravin Dior Cholesterol in HDL [Mass/Vol] 47 mg/dL Normal 40-60 [facility] Comment on above: Performed By: #### C MP, T7, TSH, LIPID ####[facility] [address] [place] [id number]. Ravin Dior Cholesterol in LDL [Mass/Vol] 96.4 mg/dL Normal [facility] Comment on above: Performed By: #### C MP, T7, TSH, LIPID ####[facility] [address] [place] [id number]. Ravin Ovi Cholesterol.total/Cho lesterol in HDL [Mass ratio] 3.4 {ratio} Normal [facility] Comment on above: Performed By: #### C MP, T7, TSH, LIPID ####[facility] [address] [place] [id number]. Ravin Dior HDL NORMAL > or = 60 mg/dl - LO W CARDIOVASCULAR RISK <40 mg/dl - HIGH CARDIOVASCULAR RISK Normal [facility] Comment on above: Performed By: #### C MP, T7, TSH, LIPID ####[facility] [address] [place] [id number]. Ravin Dior LDL CALC NORMAL SEE BELOW Normal [facility] Comment on above: Result Comment: <100 mg/dl OPTIMAL 100 - 129 mg/dl NEAR OR ABOVE OPTIMAL 130 - 159 mg/dl BORDERLINE HIGH 160 - 189 mg/dl HIGH >190 mg/dl VERY HIGH Performed By: #### C MP, T7, TSH, LIPID ####[facility] [address] [place] [address]Dr. Ravin Dior Triglyceride [Mass/Vol] 78 mg/dL Normal <=150 [facility] Comment on above: Performed By: #### C MP, T7, TSH, LIPID ####[facility] [address] [place] [address]Dr. Ravin Dior VLDL CALC 15.6 mg/dL Normal [facility] Comment on above: Performed By: #### C MP, T7, TSH, LIPID ####[facility] [address] [place] [id number]. Ravin Dior MG MAMM SCREEN 3D NIKOS CADon 09-22-2022 MG MAMM SCREEN 3D NIKOS CAD Patient: RADHA GUTIÉRREZ Exam Date: 09/22/2022 : 1945 Gender:F Ordering : [facility] Admission #: [id number] Family : Order #: [id number] CLICK HERE TO VIEW EXAM RADIOLOGY REPORT [...] No Treatments None Family Cancers None LOCATION: [facility] BREAST COMPOSITION: Almost entirely fatty. FINDINGS: [...] PALPABLE LUMP SHOULD BE BIOPSIED. Dictated by: Oswaldo Valenzuela M.D. on 09/22/2022 at 17:00 Approved by: Oswaldo Valenzuela M.D. on 09/22/2022 at 17:02 Normal [facility] PROF 14(COMP METB)on 09-22- 023 Albumin [Mass/Vol] 3.3 g/dL Critically low 3.4-5.0 [facility] Comment on above: Performed By: #### C MP, T7, TSH, LIPID #### [facility] [address] [place] [address] [address] Ravin Dior Albumin/Globulin [Mass ratio] 0.7 {ratio} Normal [facility] Comment on above: Performed By: #### C MP, T7, TSH, LIPID #### [facility] [address] [place] [address] [address] Ravin Dior ALP [Catalytic activity/Vol] 207 U/L Critically high 46-116 [facility] Comment on above: Performed By: #### C MP, T7, TSH, LIPID #### [facility] [address] [place], [place] [address] Dr. Ravin Dior ALT [Catalytic activity/Vol] 47 U/L Normal 14-59 [facility] Comment on above: Performed By: #### C MP, T7, TSH, LIPID #### [facility] [address] [place] [address] [address] Ravin Dior Anion gap [Moles/Vol] 11.5 mmol/L Normal [facility] Comment on above: Performed By: #### C MP, T7, TSH, LIPID #### [facility] [address] [address] [address] Ravin Dior AST [Catalytic activity/Vol] 35 U/L Normal 15-37 [facility] Comment on above: Performed By: #### C MP, T7, TSH, LIPID #### [facility] [address] [address] [address] Ravin Dior Bilirubin [Mass/Vol] 0.6 mg/dL Normal 0.2-1.0 [facility] Comment on above: Performed By: #### C MP, T7, TSH, LIPID #### [facility] [address] [address] [address] Ravin Dior Calcium [Mass/Vol] 9.2 mg/dL Normal 8.5-10.1 [facility] Comment on above: Performed By: #### C MP, T7, TSH, LIPID #### [facility] [address] [address] [address] Ravin Dior Chloride [Moles/Vol] 109 mmol/L Critically high 98-107 [facility] Comment on above: Performed By: #### C MP, T7, TSH, LIPID #### [facility] [address] [place] [address] Dr. Ravin Dior CO2 [Moles/Vol] 27.7 mmol/L Normal 21.0-32.0 [facility] Comment on above: Performed By: #### C MP, T7, TSH, LIPID #### [facility] [address] [address] [address] Ravin Dior Creatinine [Mass/Vol] 0.94 mg/dL Normal 0.55-1.02 [facility] Comment on above: Performed By: #### C MP, T7, TSH, LIPID #### [facility] [address] [place] [address] Dr. Ravin Dior EGFR-AF ZAMBIAN >60 Normal >=60 [facility] Comment on above: Performed By: #### C MP, T7, TSH, LIPID #### [facility] [address] [place] [address] Dr. Ravin Dior EGFR-NON AF ZAMBIAN 58 mL/min/1.73m2 Critically low >=60 [facility] Comment on above: Performed By: #### C MP, T7, TSH, LIPID #### [facility] [address] [place] [address] Dr. Ravin Dior Globulin (S) [Mass/Vol] 4.7 g/dL Normal [facility] Comment on above: Performed By: #### C MP, T7, TSH, LIPID #### [facility] [address] [place] [address] Dr. Ravin Dior Glucose [Mass/Vol] 95 mg/dL Normal 74-106 [facility] Comment on above: Performed By: #### C MP, T7, TSH, LIPID #### [facility] [address] [place] [address] Dr. Ravin Dior Potassium [Moles/Vol] 4.2 mmol/L Normal 3.5-5.1 [facility] Comment on above: Performed By: #### C MP, T7, TSH, LIPID #### [facility] [address] [place] [address] Dr. Ravin Dior Protein [Mass/Vol] 8.0 g/dL Normal 6.4-8.2 [facility] Comment on above: Performed By: #### C MP, T7, TSH, LIPID #### [facility] [address] [place] [address] Dr. Ravin Dior Sodium [Moles/Vol] 144 mmol/L Normal 136-145 [facility] Comment on above: Performed By: #### C MP, T7, TSH, LIPID #### [facility] [address] [place] [address] Dr. Ravin Doir Urea nitrogen [Mass/Vol] 21.0 mg/dL Critically high 7.0-18.0 [facility] Comment on above: Performed By: #### C MP, T7, TSH, LIPID #### [facility] [address] [place] [address] Dr. Ravin Dior Urea nitrogen/Creatinine [Mass ratio] 22.3 mg/mg Normal [facility] Comment on above: Performed By: #### C MP, T7, TSH, LIPID #### [facility] [address] [place], [place] [address] Dr. Ravin Dior TSHon 09-22-2022 TSH 2.085 uIU/mL Normal 0.358-3.740 [facility] Comment on above: Performed By: #### C MP, T7, TSH, LIPID #### [facility] [id number] Ravin Dior CT ABD/PELVIS WO CONon [...] was used, including Automated Exposure Control. FINDINGS: Butt [place]yer: No pertinent findings, which are not already [...] contains mild stranding. IMPRESSION: 1. No acute intra-abdominal/pelvi c findings. 2. Three fat-containing ventral hernias with mild stranding within the sac of the largest most superior hernia. Normal [facility] CBC AUTO DIFFon 05-17-2022 BASO # 0.0 103/ul Normal 0.0-0.1 [facility] Comment on above: Performed By: #### C BC ####[facility] [address] [address]DrViky Dior Basophils/100 WBC (Bld) 0.2 % Normal 0.2-2.0 [facility] Comment on above: Performed By: #### C BC ####[facility] [address] [place], [place] [address]DrViky Dior EO # 0.1 103/ul Normal 0.0-0.7 [facility] Comment on above: Performed By: #### C BC ####[facility] [address] [address]DrViky Dior Eosinophils/100 WBC (Bld) 1.4 % Normal 0.9-7.0 [facility] Comment on above: Performed By: #### C BC ####[facility] [address] [address]DrViky Dior Erythrocyte distribution width (RBC) [Ratio] 13.7 % Normal 11.0-15.0 [facility] Comment on above: Performed By: #### C BC ####[facility] [address] [place], [place] [address]Dr. Ravin Dior Hematocrit (Bld) [Volume fraction] 44.4 % Normal 36.0-48.0 [facility] Comment on above: Performed By: #### C BC ####[facility] [address] [address]Dr. Ravin Dior Hemoglobin (Bld) [Mass/Vol] 14.7 g/dL Normal 12.0-16.0 [facility] Comment on above: Performed By: #### C BC ####[facility] [address] [address]Dr. Ravin Dior IG # 0.05 10e3/ul Critically high 0.00-0.03 [facility] Comment on above: Performed By: #### C BC ####[facility] [address] [address]Dr. Ravin Dior IG % 0.5 % Normal 0.0-0.5 [facility] Comment on above: Performed By: #### C BC ####[facility] [address] [place], [place] [address]Dr. Ravin Dior LYMPH # 1.7 103/ul Normal 1.2-3.8 [facility] Comment on above: Performed By: #### C BC ####[facility] [address] [place], [place] [address]DrViky Dior Lymphocytes/100 WBC (Bld) 17.1 % Critically low 20.5-60.0 [facility] Comment on above: Performed By: #### C BC ####[facility] [address] [address]DrViky Dior MANUAL DIFF REQ NO Normal [facility] Comment on above: Performed By: #### C BC ####[facility] [address] [address]Dr. Ravin Dior MCH (RBC) [Entitic mass] 30.7 pg Normal 26.7-34.0 [facility] Comment on above: Performed By: #### C BC ####[facility] [address] [address]Dr. Ravin Dior MCHC (RBC) [Mass/Vol] 33.1 g/dL Normal 29.9-35.2 [facility] Comment on above: Performed By: #### C BC ####[facility] [address] [id number] Bhattlilliana Ovi MCV (RBC) [Entitic vol] 92.7 fL Normal 81.0-99.0 [facility] Comment on above: Performed By: #### C BC ####[facility] [address] [place], [place] [address]DrViky Dior MONO # 0.6 103/ul Normal 0.3-0.8 [facility] Comment on above: Performed By: #### C BC ####[facility] [address] [place], [place] [address]DrViky Dior Monocytes/100 WBC (Bld) 5.7 % Normal 1.7-12.0 [facility] Comment on above: Performed By: #### C BC ####[facility] [address] [place], [place] [address]Dr. Ravin Dior NEUT # 7.7 103/ul Critically high 1.4-6.5 [facility] Comment on above: Performed By: #### C BC ####[facility] [address] [place], [place] [address]Dr. Ravin Dior Neutrophils/100 WBC (Bld) 75.1 % Critically high 43.0-75.0 [facility] Comment on above: Performed By: #### C BC ####[facility] [address] [place], [place] [address]Dr. Ravin Dior Platelet mean volume (Bld) [Entitic vol] 10.4 fL Normal 9.5-13.5 [facility] Comment on above: Performed By: #### C BC ####[facility] [address] [place], [place] [address]DrViky Dior PLT 294 103/ul Normal 150-450 [facility] Comment on above: Performed By: #### C BC ####[facility] [address] [place], [place] [id number] Dior RBC 4.79 106/ul Normal 4.20-5.40 [facility] Comment on above: Performed By: #### C BC ####[facility] [address] [address]Dr. Ravin Dior WBC 10.2 103/ul Normal 4.0-11.0 [facility] Comment on above: Performed By: #### C BC ####[facility] [address] [address]Dr. Ravin Dior ER URINE PROFILEon 2 Bilirubin Ql (U) Negative Normal NEGATIVE [facility] Comment on above: Performed By: #### Tammy SOUTH UMICRO #### [facility] [address] [place] [address] Dr. Ravin Dior Clarity (U) CLEAR Normal CLEAR [facility] Comment on above: Performed By: #### Tammy SOUTH UMICRO #### [facility] [address] [place] [address] Dr. Ravin Dior Color (U) LT. YELLOW Normal YELLOW [facility] Comment on above: Performed By: #### Tammy SOUTH UMICRO #### [facility] [address] [place] [address] Dr. Ravin PARKER A micrscopic examination will be performed if indicated. Normal [facility] Comment on above: Performed By: #### Tammy SOUTH UMICRO #### [facility] [address] [place] [address] Dr. Ravin Dior Glucose Ql (U) Negative Normal NEGATIVE The [facility] Comment on above: Performed By: #### Tammy SOUTH UMICRO #### [facility] [address] [place] [address] Dr. Ravin Dior Hemoglobin Ql (U) Negative Normal NEGATIVE [facility] Comment on above: Performed By: #### Tammy SOUTH UMICRO #### [facility] [address] [place] [address] Dr. Ravin Dior Ketones Ql (U) TRACE Abnormal NEGATIVE [facility] Comment on above: Performed By: #### ALDA KAUFFMAN #### [facility] [address] [place] [address] Dr. Ravin Dior LEUKOCYTES SMALL Abnormal NEGATIVE [facility] Comment on above: Performed By: #### DENY KAUFFMANRO #### [facility] [address] [place] [address] Dr. Ravin Dior Nitrite Ql (U) Negative Normal NEGATIVE [facility] Comment on above: Performed By: #### DENY KAUFFMANRO #### [facility] [address] [place] [address] Dr. Ravin Dior pH (U) 6.0 [pH] Normal 5-9 [facility] Comment on above: Performed By: #### DENY KAUFFMANRO #### [facility] [address] [place] [address] Dr. Ravin Dior SPEC GRAVITY 1.010 Normal 1.005-<=1.025 [facility] Comment on above: Performed By: #### DENY KAUFFMANRO #### [facility] [address] [place] [address] Dr. Ravin Dior UA PROTEIN Negative Normal NEGATIVE/ TRACE [facility] Comment on above: Performed By: #### ALDA KAUFFMAN #### [facility] [address] [place] [address] Dr. Ravin Dior UR MICRO IND INDICATED Normal [facility] Comment on above: Performed By: #### DENY KAUFFMANRO #### [facility] [address] [place] [address] Dr. Ravin Dior Urobilinogen Qn (U) 0.2 {Chandler'U}/dL Normal 0.2 - 1. 0 [facility] Comment on above: Performed By: #### DENY KAUFFMANRO #### [facility] [address] [place] [address] Dr. Ravin Dior LACTATE/LACTIC ACIDon 2021 Lactate [Moles/Vol] 1.3 mmol/L Normal 0.4-1.9 [facility] Comment on above: Performed By: #### L NICOLLE ####[facility] [address] [place], [place] [address]BzDr. Ravin Dior LIPASEon 05-17-2022 Lipase [Catalytic activity/Vol] 63.0 U/L Critically low 73.0-393.0 [facility] Comment on above: Performed By: #### C MP, LIPA #### [facility] [address] [address] [address] Ravin Dior PROF 14(COMP METB)on 022 Albumin [Mass/Vol] 3.4 g/dL Normal 3.4-5.0 [facility] Comment on above: Performed By: #### C MP, LIPA #### [facility] [address] [address] [address] Ravin Dior Albumin/Globulin [Mass ratio] 0.8 {ratio} Normal [facility] Comment on above: Performed By: #### C MP, LIPA #### [facility] [address] [place] [address] Dr. Raivn Dior ALP [Catalytic activity/Vol] 143 U/L Critically high 46-116 [facility] Comment on above: Performed By: #### C MP, LIPA #### [facility] [address] [address] [address] Ravin Dior ALT [Catalytic activity/Vol] 29 U/L Normal 14-59 [facility] Comment on above: Performed By: #### C MP, LIPA #### [facility] [address] [address] [address] Ravin Dior Anion gap [Moles/Vol] 7.6 mmol/L Normal [facility] Comment on above: Performed By: #### C MP, LIPA #### [facility] [address] [place] [address] Dr. Ravin Dior AST [Catalytic activity/Vol] 39 U/L Critically high 15-37 [facility] Comment on above: Performed By: #### C MP, LIPA #### [facility] [address] [address] [address] Ravin Dior Bilirubin [Mass/Vol] 0.7 mg/dL Normal 0.2-1.0 [facility] Comment on above: Performed By: #### C MP, LIPA #### [facility] [address] [place] [address] Dr. Ravin Dior Calcium [Mass/Vol] 9.1 mg/dL Normal 8.5-10.1 [facility] Comment on above: Performed By: #### C MP, LIPA #### [facility] [address] [place] [address] Dr. Ravin Dior Chloride [Moles/Vol] 102 mmol/L Normal 98-107 [facility] Comment on above: Performed By: #### C MP, LIPA #### [facility] [address] [place] [address] Dr. Ravin Dior CO2 [Moles/Vol] 31.1 mmol/L Normal 21.0-32.0 [facility] Comment on above: Performed By: #### C MP, LIPA #### [facility] [address] [place] [address] Dr. Ravin Dior Creatinine [Mass/Vol] 0.88 mg/dL Normal 0.55-1.02 [facility] Comment on above: Performed By: #### C MP, LIPA #### [facility] [address] [place] [address] Dr. Ravin Dior EGFR-AF ZAMBIAN >60 Normal >=60 [facility] Comment on above: Performed By: #### C MP, LIPA #### [facility] [address] [place] [address] Dr. Ravin Dior EGFR-NON AF ZAMBIAN >60 Normal >=60 [facility] Comment on above: Performed By: #### C MP, LIPA #### [facility] [address] [place] [address] Dr. Ravin Dior Globulin (S) [Mass/Vol] 4.5 g/dL Normal [facility] Comment on above: Performed By: #### C MP, LIPA #### [facility] [address] [place] [address] Dr. Ravin Dior Glucose [Mass/Vol] 100 mg/dL Normal 74-106 [facility] Comment on above: Performed By: #### C ROGELIO, LIPA #### [facility] [address] [place] [address] Dr. Ravin Dior Potassium [Moles/Vol] 3.7 mmol/L Normal 3.5-5.1 [facility] Comment on above: Performed By: #### C ROGELIO, LIPA #### [facility] [address] [place] [address] Dr. Ravin Dior Protein [Mass/Vol] 7.9 g/dL Normal 6.4-8.2 [facility] Comment on above: Performed By: #### C ROGELIO, LIPA #### [facility] [address] [place] [address] Dr. Ravin Dior Sodium [Moles/Vol] 137 mmol/L Normal 136-145 [facility] Comment on above: Performed By: #### C ROGELIO, LIPA #### [facility] [address] [place] [address] Dr. Ravin Dior Urea nitrogen [Mass/Vol] 12.0 mg/dL Normal 7.0-18.0 [facility] Comment on above: Performed By: #### C ROGELIO, LIPA #### [facility] [address] [place] [address] Dr. Ravin Dior Urea nitrogen/Creatinine [Mass ratio] 13.6 mg/mg Normal [facility] Comment on above: Performed By: #### C ROGELIO, LIPA #### [facility] [address] [place] [address] Dr. Ravin Dior URINE MICROSCOPIC ONLYon BACTERIA NONE SEEN Normal NONE SEEN [facility] Comment on above: Performed By: #### ALDA KAUFFMAN #### [facility] [address] [place] [address] Dr. Ravin Dior Bacteria identified Cx Nom (U) NOT INDICATED Normal [facility] Comment on above: Performed By: #### ALDA KAUFFMAN #### [facility] [address] [place] [address] Dr. Ravin Dior CAST NONE SEEN Normal NONE SEEN [facility] Comment on above: Performed By: #### E RUR, UMICRO #### [facility] [address] [place] [address] Dr. Ravin Dior Crystals LM Nom (Urine sed) NONE SEEN Normal NONE SEEN [facility] Comment on above: Performed By: #### E RUR, UMICRO #### [facility] [address] [place] [address] Dr. Ravin Dior Epithelial cells LM Ql (Urine sed) FEW Abnormal NONE SEEN /RARE [facility] Comment on above: Performed By: #### E RUR, UMICRO #### [facility] [address] [place] [address] Dr. Ravin Dior MUCOUS NONE SEEN Normal NONE SEEN [facility] Comment on above: Performed By: #### E RUR, UMICRO #### [facility] [address] [place] [address] Dr. Ravin Dior RBC NONE SEEN Abnormal 0-2 [facility] Comment on above: Performed By: #### E RUR, UMICRO #### [facility] [address] [place] [address] Dr. Ravin Dior WBC 0-2 Abnormal NONE SEEN [facility] Comment on above: Performed By: #### E RUR, UMICRO #### [facility] [address] [place] [address] Dr. Ravin Dior Ambulatory Clinical Summaryo n 07-24-2020 Ambulatory Clinical Summary {[id number] Normal [facility] Gastroenterology Office/Clin ic Noteon 07-24-2020 Gastroenterology Office/Clinic [...] acute distress Eyes: extraocular movements intact. Non-Icteric Pulmonary/Respiratory : No cough noted during interview. Normal Respiratory [...] course, # 28 cap(s), Refills(s) 0, Pharmacy: [facility]/pharmacy #[id number], 165, cm, 07/24/20 12:03:00 EST, Height/Length Dosing, 95.9, kg, 07/24/20 12:03:00 EST, Weight Dosing metronidazole, 250 mg = 1 tab(s), Oral, TID, X 7 day(s), # 21 tab(s), Refills(s) 0, Pharmacy: [facility]/pharmacy #[id number], 165, cm, 07/24/20 12:03:00 EST, Height/Length [...] water, # 160 cap(s), Refills(s) 1, Pharmacy: [facility]/pharmacy #[id number], 165, cm, 07/24/20 12:03:00 EST, Height/Length Dosing, 95.9, kg, 07/24/20 12:03:... Orders: pantoprazole, 40 mg = 2 tab(s), Oral, Daily, X 90 day(s), # 180 tab(s), Refills(s) 3, Pharmacy: [facility]/pharmacy #[id number], 165, cm, 07/24/20 12:03:00 EST, Height/Length Dosing, 95.9, kg, 07/24/20 12:03:00 EST, Weight Dosing Follow-up With When Contact Information Isabelle Ramirez MD In 12 months [address], [place] [address]- Additional Instructions: Problem List/Past Medical [...] 12/16/2018 Exercise - Occasional exercise, 12/16/2018 Other Slprltsv-8-4 cups blair;y, 12/16/2018 Substance Abuse - Denies Substance Abuse, 12/16/2018 Tobacco Never (less than 100 in lifetime) Tobacco Use:., 07/24/2020 Never (less than 100 in lifetime) Tobacco Use:. Never Smokeless Tobacco Use:., 02/01/2019 [facility] Comment on above: Result Comment: Elec tronically Signed By: Taylor Mccauley MD, Isabelle\.br\Date and Time Signed: 07/24/20 13:13 EST Auth for Release of Medical Recordson 02-09-2020 Auth for Release of Medical Records [id number] [facility] Patient Letter FTon 2019 Patient Letter [facility] January 24, 2020 RADHA GUTIÉRREZ [address] [place] [address] RADHA GUTIÉRREZ 1945 Dear Radha, This is a reminder that you are due for an appointment with Dr. Garland or Dr. Mccauley. Please call [facility] at [phone] to schedule an appointment at your earliest convenience. Thank you, [facility] Encounters Encounter Date Encounter Type Care Provider Facility Start: 07-14-2023 End: 07-14-2023 ambulatory ADELAIDA RIZO [facility] Start: 07-05-2023 ambulatory ROBERT MADDEN [facility] Start: 07-05-2023 End: 07-05-[address] 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 Start: 03-23-2023 End: 03-26-[address] [facility] Start: 01-25-2023 End: 01-25-2023 ambulatory [facility] Start: 01-18-2023 End: 01-18-2023 ambulatory [facility] Start: 01-05-2023 End: 01-05-2023 ambulatory [facility] Start: 11-23-2022 End: 11-23-2022 ambulatory [facility] Start: 09-22-2022 End: 09-23-2022 ambulatory HEAVEN [...] Adult BMI Screening Adult BMI Screen ing [facility] Start: 08-25-2023 Tobacco Screening Tobacco Screening [facility] Start: 01-29-2023 COVID-19 Vaccine ( season) COVID-19 Vaccine () [facility] Start: 01-29-2023 Influenza vaccination Influenza Vacc ine [facility] Start: 11-03-2022 ambulatory Ambulatory Facility:H 1 Start: 2010 Fall Risk Screening Fall Risk Screen ing [facility] Start: 1995 Administration of varicella zoster vaccine Zoster (Shingles) [facility] 2[facility]: 1964 DTaP,Tdap and Td Vac cines (1 - Tdap) DTaP,Tdap and Td Vaccines (1 - Tdap) [facility] Start: 1963 Adult BMI Follow Up Plan Adult BMI Follow Up Plan [facility] Start: 1957 Depression Screening [facility]ing [facility] Start: 1945 Medicare Annual Well ness Visit Medicare Annual Wellness Visit [facility] End: 06-08-2024 Basic metabolic 2000 panel - Serum or Plasma Basic Metabolic Panel Lab Routine Essential hypertension 1 Occurrences starting 06/08/2023 until 06/08/2024 [employer] Work Phone: Comment on above: 1 Occurrences starti ng 06/08/2023 until 06/08/2024 Immunizations Immunization Date Immunization Notes Care Provider Tutu rehman 05-08-2021 influenza virus vaccine, unspecified formulation 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 Payers Date Payer Category Payer Medicare [employer] MEDICARE [employer] [place] [id number] 2013-Present [id number] [place] [id number] 1959 Medicare [id number] 1945 Unknown [id number] 1945 Unknown [id number] 1945 Unknown [id number] 1945 Unknown [id number] 1945 Unknown [id number] 1945 Unknown [id number] 1945 Unknown [id number] Social History Date Type Detail Facility Start: 05-26-2022 Tobacco smoking stat [facility] Never smoked tobacco [facility] Start: 05-26-2022 Tobacco use and exposure Smoke less tobacco non-user [facility] Start: 08-24-2022 Alcohol intake Current non-dr vat skimmer of alcohol (finding) [facility] Start: 07-04-2020 End: 08-24-2022 History of Social function [facility] Start: 07-04-2020 End: 08-24-2022 Tobacco use panel [facility] Housing Instability Unknown [facility] Start: 1945 Sex Assigned At Not on file P [facility] Medical Equipment Procedure Code Equipment Code Equipment Origin al Text Equipment Identifier Dates Mesh [id number] 3d Rect Plstr Clgn Symbotex 2 Sd Comp Mfl Babsr Rpl [id number] - Sna - [id number] Start: 06-30-2022 Dev Clsr 30fr Watchman 30mm - [id number] Start: 10-28-2018 Clinical Notes 12-24-2021 to 07-14-2023 Note Date & Type Note Facility 07-14-2023 Note stable [facility] 07-14-2023 Note Patient here for wou nd check s/p BiV ICD implant on 07/05/[address] Madden. [facility] 07-14-2023 Note UTP CARDIOLOGY PROGR ESS NOTE HPI: Radha Gutiérrez is a 77 y.o. female here for 1 week wound/ incision evaluation Previous HPI 05/18/23 Patient here for follow up muga scan per Dr. Jefferson. She denies chest pain, SOB, palpitations, and lightheadedness. MUGA scan is reportedly 32%. she is on optimal guideline directed medical therapy with beta-blockers, SGLT2 inhibitors, aldosterone blockers. she is not on RONDA inhibitor due to the fact that her blood pressure is on the lower side. 03/23/23 HPI: Radha Gutiérrez is a 77 y.o. year old with past medical history of HFrEF with EF of 35% as per an echocardiogram in May 2022, nonobstructive coronary artery disease as per cath on 01/05/2023 who previously had undergone a Watchman procedure in 2019 due to GI bleed. She was previously seen by [facility] cardiology. She was initially seen by Dr. [...] or VT seen. occasional PVCs were noted Visit Vitals OB Status Postmenopausal Smoking Status Never Allergies Allergen Reactions Codeine Other reaction(s): Intolerance-unknown Lisinopril Other reaction(s): Dry cough Medications: Current Outpatient Medications on File Prior to [...] Take 50 mg by mouth if needed. doxycycline (Vibramycin) 100 mg capsule Take 1 capsule (100 mg) by mouth in the morning and at bedtime for 10 days. Take with at least 8 ounces (large glass) of water, do not lie down for 30 minutes after 20 capsule 0 empagliflozin (Jardiance) 25 mg Take 1 tablet [...] facility-administered medications on file prior to visit. Physical Exam: Constitutional: Appearance: Normal appearance. Without apparent distress HENT: Head: Normocephalic and atraumatic. Nose: Nose normal. Mouth/Throat: Mouth: Mucous membranes are moist. Eyes: Extraocular Movements: Extraocular movements intact. Conjunctiva/sclera: Conjunctivae normal. Neck: Vascular: No JVD. Cardiovascular: Rate and Rhythm: Normal rate and regular rhythm. Pulses: Heart sounds: Normal heart sounds, S1 normal and S2 normal. Pulmonary: Effort: Pulmonary effort is normal. Breath sounds: Normal breath sounds. Musculoskeletal: Right lower leg: No edema. Left lower leg: No edema. Skin: General: Skin is warm and dry. Site well approximated and healing well No s/s of infection or hematoma, + ecchymosis noted Capillary Refill: Capillary refill takes less than 2 seconds. Neurological: General: No (more content not included)... [facility] 07-14-2023 Note Site well approximat ed and healing well No s/s of infection or hematoma, + ecchymosis noted [facility] 07-14-2023 Note -[id number] for age x2, gender, hypertension, CHF, on aspirin s/p watchmen Continue meds as prescribed [facility] 07-05-2023 Note LAB RN-D IMPLANT PROCED URE NOTE DATE OF PROCEDURE: 07/05/2023 PERFORMING PHYSICIAN: Dr. 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 Implantation of Biventricular ICD ([employer]). 2. U/S venous access 3. Coronary sinus venogram 4. Conscious sedation 5. Fluroscopy INDICATIONS: Ischemic cardiomyopathy LBBB Chronic AF PROCEDURAL SEDATION: Versed and Fentanyl. Moderate sedation was administered by the sedation nurse under my supervision and noted in the CVL log. Intraprocedural face to face sedation time: 104min. Monitoring: Cardiac telemetry, Blood pressure, continuous pulse oxymetry. FLUROSCOPY: 10.3minutes/ 64 mGy. EBL: 25cc SPECIMEN REMOVED: None INDICATION: 77year old with past medical history of HFrEF with EF of 35% as per an echocardiogram in May 2022, nonobstructive coronary artery disease as per cath on 01/05/2023 who previously had undergone a Watchman procedure in 2019 due to GI bleed. [facility] She was initially seen by Dr. CHUA and had undergone a stress test that was positive and a follow-up cardiac catheterization that revealed nonobstructive CAD. She has been known to have A-fib for quite some time and had previously been cardioverted twice with subsequent recurrence. As per the notes the longest time she has been in sinus rhythm is a year. She was seen by Virgil ADAMS in January 25, 2023 for A-fib and at that time a discussion regarding sinus rhythm maintenance with ablation was entertained but considered a poor candidate as she could not tolerate anticoagulation due to GI bleed. Event monitor that was placed for 30 days notes that she is in chronic atrial fibrillation ventricular rate ranges anywhere from 50 on the lower side to a max of 100 -110bpm on the higher side. She has come for BiV ICD with the intent of AV node ablation for RVR. PROCEDURAL DETAILS: Patient was brought to the EP lab in the post absorptive state. A procedural pause was performed identifying the patient, the precedure to be performed and the site of implant. The left chest was prepped and draped in the usual sterile fashion. Preoperative antibiotics IV was administered. Patient was placed in trendelenberg position and ultrasound was used to evaluate the patency of left axillary vein. Left axillary venous access was obtained on 2 occasions using seldinger technique using a 5 Qatari micropunture needle and exchanged for 0.034 wire. I decided to proceed with opening of the pocket. Localinfiltration of 1% Lidocaine was performed and an incision was created in the left upper chest. Dissection was then performed using cautery down. An active fixation [employer] ICD lead was then delivered through the 8F sheath to the right ventricle. After confirmation of lead position on orthogonal views (BECK and SHANNEN) to confirm position in the septal aspect, the screw was activated. After confirmation of good sensing parameters, injury pattern and pacing thresholds, 10V pacing was done and no diaphragmatic stimulation was noted. It was then secured in the pocket using three 1-0 Silk sutures. I then proceeded to perform the LV lead placement. A [place] sheath was advanced into the RV over the wire. The dilator was then removed and EZ steer EP catheter was then advanced. With manipulation, EP catheter could be advanced into CS body and following which the outer sheath was advanced into the CS body. Amplatz wire was used for maintaining support. Thereafter, coronary sinus venogram was performed using a Swanz-Josse catheter, which revealed a nice lateral branch and a larger posterolateral branch. I decided to target the lateral branch. The 0.014 wire was placed via a 90degree inner cannula and the lead tracked into the lateral vein. It was clear that the more distal, there was diaphragm stimulation and proximal ones had poor thresholds. so I positioned the lead in such a way that I could get the good captured in the LV1 as well as LV2 pole. Once the guiding sheaths were removed, the lead was secured in the pocket using three 0- Silk sutures. The leads were then attached to a [employer] LAB RN-D device with atrial ort capped and the leads tug tested. Pocket hemostasis was secured and it was then copiously and vigorously irrigated with antiobiotic solution. The leads were wrapped under the device and the device was placed in the pocket and the device tacked to the underlying muscle. The pocket was closed in layers: subcutaneous layer using 2-0 Vicryl and skin using 3-0 Monocryl. Occlusive dressing was placed on top. Lead parameters were then rechecked through the device as noted below. The patient was returned to the short stay room for post procedural observation. No immediate procedural complications were noted. The QRS was noted on BiV pacing (LV2-3) was 106ms. POST PROCEDURE EXAM: Patient was hemodynamically (more content not included)... [facility] 07-05-2023 Note Patient: Radha mcghee Procedure Information Date/Time: 07/05/23 1400 Procedure: Implant ICD - biventricular Location: [facility] ACREAGE REPORTER 1 EP / [facility] HV VASCULAR LAB (Cath) Providers: Robert Madden MD Clinical information reviewed: Allergies Meds Physical Exam Airway Mallampati: II TM distance: >3 FB Neck ROM: full Cardiovascular Dental Pulmonary Abdominal Anesthesia Plan ASA 2 CSE Anesthetic plan and risks discussed with patient. Use of blood products discussed with patient who. Additional Equipment Requests [facility] 05-18-2023 Note MI Electrophysiology Consult Note Reason for visit: Afib [...] is on the lower side. 03/23/23 HPI: Radha Gutiérrez is a 77 y.o. year old with past medical history of HFrEF with EF of 35% as per an echocardiogram in May 2022, nonobstructive coronary artery disease as per cath on 01/05/2023 who previously had undergone a Watchman procedure in 2019 due to GI bleed. She was previously seen by [facility] cardiology. She was initially seen by Dr. [...] Appearance: well-nourished, we (more content not included)... [facility] 03-23-2023 Note MI Electrophysiology Consult Note Reason for visit: Afib HPI: Radha Gutiérrez is a 77 y.o. year old with past medical history of HFrEF with EF of 35% as per an echocardiogram in May 2022, nonobstructive coronary artery disease as per cath on 01/05/2023 who previously had undergone a Watchman procedure in 2019 due to GI bleed. [facility] She was initially seen by Dr. [...] no cyanosis, no (more content not included)... [facility] 02-04-2023 Note [facility] watchmen 2019[id number] for age x2, gender, hypertension, CHF, [...] Watchman due to unclear risk of stroke [facility] 02-04-2023 Note -will need BiV ICD if ICD indica halie [facility] 02-04-2023 Note -stable, ct [facility] 02-04-2023 Note -NYHA II, NICM, HFrE F EF 35%, pending MUGA scan in 2-3 months to reassess EF for ICD -nonobstruc cors 12/2022 -ct gdmt -she appears euvolemic and compensated [facility] 02-04-2023 Note [facility] [place] Electrophysiology Consult Note Reason for visit: new to EP, afib HPI: Radha Gutiérrez is a 77 y.o. year old with past medical history of Chronic HFrEF EF 35% per echo 05/2022, nonobstructive coronary arteries per cath 01/05/2023, chronic MORIN which is recently worsened, Watchman procedure 2019 due to high risk bleed related to GI bleed She was referred by Dr. Jefferson for her A-fib. She was following [facility] and self-referred to [facility] cardiology for second opinion. She recently [...] K4.4, BUN 40, creatinine 1.32, GFR 39 A-fib rate controlled PMH: Past Medical History: [...] rash, no ulcer, (more content not included)... [facility] 01-25-2023 Note Patient here to disc uss possible afib ablation per Dr. Jefferson. She will be scheduled for muga scan in Mar 2023. Review of Systems Cardiovascular: Positive for dyspnea on exertion. All other systems reviewed and are negative. [facility] 01-18-2023 Note [facility] Cardiology Clinic Note Chief Complaint: Patient here for follow up heart cath on 01/05/2023. HPI: Radha Gutiérrez is a 77 y.o. female With [...] Optimal medical therapy for nonischemic cardiomyopathy; continue beta-андрей, angiotensin receptor андрей (as an ARNI was financially prohibitive), spironolactone [...] TTE 06/08/22 Nonischemic cardiomyopathy Normal coronaries by [facility] 2013 and 2022 Mitral regurgitation, moderate by TTE 05/2022 Persistent atrial fibrillation s/p repeat ca (more content not included)... [facility] 01-05-2023 Note Cardiovascular Labor atory Report FINAL IMPRESSIONS: Nonobstructive coronary arteries angiographically Moderately reduced global left ventricular systolic function by noninvasive imaging RECOMMENDATIONS: Aggressive cardiovascular factor modification Optimal medical therapy for nonischemic cardiomyopathy; continue beta-андрей, angiotensin receptor андрей (as an ARNI was financially prohibitive), spironolactone [...] left radial artery was obtained. A 6 Qatari glide sheath was inserted without difficulty. Bilateral [...] fraction, heart failure with reduced ejection fraction [facility] 11-23-2022 Note [facility] Cardiology Clinic Note Chief Complaint: Complains of shortness of breath, worse with exertion and heart fluttering at rest. HX of afib. HPI: Radha Gutiérrez is a 77 y.o. female presents for a second opinion. Currently seeing cardiology in [place], states she sees someone different at every visit [...] the past. She had cardiac catheterization in 2014 that revealed no significant stenoses. Her ejection [...] judgement. Investigations Echo complete W/O contrast Order: [id number] Narrative Left Ventricle: Systolic function is moderately [...] no pericardial effus (more content not included)... [facility] 07-23-2022 Note PAIN MANAGEMENT CONS ULTATION [...] months' time or sooner if needed. [facility] 03-26-2022 Note CONSULTATION CONSULTATION DATE: 03/26/2022 [...] agrees with the plan of care. [facility] 12-24-2021 Note CONSULTATION PROCEDURE DATE: 12/24/2021 [...] the procedure well with no complications. [facility] 12-24-2021 Note CONSULTATION CONSULTATION DATE: 12/24/2021 [...] three months' time, unless otherwise indicated. [facility] Evaluation note Diagnosis Essential hypertension- Primary Unspecified essential hypertension documented in this encounter [facility] [employer] SystemInstructionsNot on filedocumented in this encounter [facility] Summary Purpose Family History No Family History Records FoundNo Family History Records FoundNo Family History Records Found Advance Directives No Advanced Directives Records FoundNo Advanced Directives Records FoundNo Advanced Directives Records Found Additional Source Comments INFORMATION SOURCE (unrecogn ized section and content) DATE CREATED AUTHOR 07/25/2020 [facility] DATE CREATED AUTHOR AUTHOR'S ORGANIZ ATION 10/12/2022 [facility] DATE CREATED AUTHOR AUTHOR'S ORGANIZ ATION 07/15/2023 [facility] Reason for Visit (unrecogniz ed section and content) Reason Comments Med Refill Care Teams (unrecognized sec tion and content) Mill Helper Relationship Specialty Start Date End Date Heaven Staley, FINANCE ADMIN-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 [address] [facility]. provides no warranty or guarantee of the accuracy or completeness of information in this document.
--- NOTE | 2023-07-28 08:16 | P.CN_ITS ---
Consult Note: HPI Data of Consult Patient: known to practice within the last 3 years Requesting Physician: Carmen Ramey NP Primary Care Provider: FIDELINA STALEY Consult Narrative Reason for consult: RFA f/u Narrative: Radha Cornell a pleasant 77 year old female presents for evaluation and management of chronic low back pain. Recently underwent Left Lumbar 2/3, 4/5 Radiofrequency ablation, noticing <500% improvement in symptoms at this time now noticing more pain over left superior gluteal nerve and pain radiating down left leg following l5/s1. Pain today 5/10 ache which numbness tingling of left leg increased with all activity and decreased with lying down and heat. cc:: CC: Carmen Ramey NP Review of Systems ROS Status of ROS 10 or more systems reviewed and unremark able except as noted in history and below Musculoskeletal Reports: back pain PFSH PFSH Medical History Rectocele ?N81.6 - Rectocele (ICD-10) Bruising ?T14.8XXA - Other injury of unspecified body region, initial encounter (ICD- 10) Anemia ?D64.9 - Anemia, unspecified (ICD-10) Upper back pain ?M54.9 - Dorsalgia, unspecified (ICD-10) Neck pain ?M54.2 - Cervicalgia (ICD-10) Low back pain ?M54.50 - Low back pain, unspecified (ICD-10) Fibromyalgia ?M79.7 - Fibromyalgia (ICD-10) Heartburn ?R12 - Heartburn (ICD-10) Acid reflux ?K21.9 - Gastro-esophageal reflux disease without esophagitis (ICD-10) Sleep apnea ?G47.30 - Sleep apnea, unspecified (ICD-10) Atrial fibrillation ?I48.91 - Unspecified atrial fibrillation (ICD-10) Surgical History S/P lumbar spine operation ?Z98.890 - Other specified postprocedural states (ICD-10) S/P shoulder surgery ?Z98.890 - Other specified postprocedural states (ICD-10) History of bariatric surgery ?Z98.84 - Bariatric surgery status (ICD-10) H/O heart surgery ?Z98.890 - Other specified postprocedural states (ICD-10) H/O: hysterectomy ?Z90.710 - Acquired absence of both cervix and uterus (ICD-10) Hx of cholecystectomy ?Z90.49 - Acquired absence of other specified parts of digestive tract (ICD- 10) Meds Home Medications and Allergies Home Medications Medication Instructions Recorded Confirmed Type acetaminophen 500 mg oral powder 1,000 mg PO Q6H 11/03/22 03/16/23 History packet baclofen 10 mg tablet 10 mg PO BID 11/03/22 03/16/23 History cholecalciferol (vitamin D3) 125 5,000 unit PO DAILY 11/03/22 03/16/23 History mcg (5,000 unit) capsule diclofenac sodium 50 mg 50 mg PO DAILY 11/03/22 03/16/23 History tablet,delayed release furosemide 40 mg tablet (Lasix) 40 mg PO BID 11/03/22 03/16/23 History krill 2 cap PO DAILY 11/03/22 03/16/23 History [id number] 1,500 mg-165 mg-67.5 mg capsule losartan 25 mg tablet 25 mg PO DAILY 11/03/22 03/16/23 History metoprolol succinate 25 mg 12.5 mg PO BID 11/03/22 03/16/23 History tablet,extended release 24 hr multivitamin 1 tab PO DAILY 11/03/22 03/16/23 History oxycodone-acetaminophen 5 mg-325 1 tab PO TID 11/03/22 03/16/23 History mg tablet (Percocet) pantoprazole 40 mg tablet,delayed 40 mg PO BID 11/03/22 03/16/23 History release (Protonix) pramipexole 1 mg tablet (Mirapex) 1 mg PO DAILY 11/03/22 03/16/23 History trazodone 50 mg tablet 50 mg PO DAILY 11/03/22 03/16/23 History vitamin B complex 1 cap PO DAILY 11/03/22 03/16/23 History oxycodone-acetaminophen 5 mg-325 1 tab PO TID PRN pain #90 tabs 01/08/23 03/16/23 Rx mg tablet (Percocet) naloxone 4 mg/actuation nasal 4 mg intranasal Q3M PRN opioid 02/11/23 03/16/23 Rx spray (Narcan) overdose #2 ea oxycodone-acetaminophen 5 mg-325 1 tab PO TID PRN pain #90 tabs 02/11/23 03/16/23 Rx mg tablet (Percocet) oxycodone-acetaminophen 5 mg-325 1 tab PO TID PRN pain #90 tabs 03/17/23 Rx mg tablet (Percocet) oxycodone-acetaminophen 5 mg-325 1 tab PO TID PRN pain #90 tabs 04/21/23 Rx mg tablet (Percocet) oxycodone-acetaminophen 5 mg-325 1 tab PO TID PRN pain #90 tabs 05/28/23 Rx mg tablet (Percocet) oxycodone-acetaminophen 5 mg-325 1 tab PO TID PRN pain #90 tabs 07/05/23 Rx mg tablet (Percocet) Allergies Allergy/AdvReac Type Severity Reaction Status Date / Time codeine Allergy Mild Hives Verified 03/16/23 12:14 Exam Constitutional Documenting provider has reviewed patient's vital signs: yes Common normals: no apparent distress, oriented x3, healthy appearing, alert and well nourished General appearance: cooperative [facility] Common normals: normocephalic, hearing grossly normal bilaterally and moist oral mucous membranes Head and scalp: normocephalic Eye Common normals: PERRL Pupil: PERRL Neck & C-Spine Common normals: full ROM General: normal visual inspection Chest Common normals: inspection of chest normal Respiratory Common normals: normal respiratory effort, no retractions and no use of accessory muscles Back & Pelvis Lumbar spine/lower back: ROM limited, pain with ROM and straight leg raise positive left Other: facet loading negative tender to touch and pain with activity over left superior gluteal nerve positive fabers to left, pain with [place] and thigh thrust pain following l5/s1 dermatomal pattern on left, decreased sensation noted Extremity Common normals: normal to inspection and full ROM Neuro Common normals: oriented x3, CN's II-XII intact bilaterally, moves all extremities, no focal motor deficits, no sensory deficits noted and deep tendon reflexes 2+ bilaterally Sensorium/orientation: alert Motor exam: strength 5/5 throughout and no movement abnormalities noted Psych Common normals: mental status grossly normal, thought process normal, cooperative, affect normal, speech normal and activity/motor behavior normal Speech: normal speech Thought process: normal thought process Results Additional Findings Additional findings: I have checked an [place] report on this patient today and there are no aberrancies noted in the prescribing history.?? A drug screen was completed and reviewed within the last year, and if there has not been a drug screen completed we ordered one today to monitor higher risk, state monitored pain medication use. As part of providing excellent, safe, comprehensive care, the following was completed at our patient's visit: 1. A medication reconciliation and review to ensure accurate knowledge of current/active medications, including asking our patients to inform us about any [id number] medications or herbal remedies/nutritional supplements/alternative remedies. 2. A review to specifically ensure our patients have had annual screening for: elevated body mass index (BMI), tobacco use, screening for depression, and screening for unhealthy alcohol use. When screening is concerning, patients are provided with education and the specific recommendation to discuss the concernin g health issue and treatment options with their primary care provider. Assessment and Plan Assessment and Plan (1) Lumbar spondylosis: (2) Muscle spasm: (3) Chronic prescription opiate use: Assessment and Plan: I feel these medications are improving the patient's quality of life and allow them to tolerate activities of daily living as well as participate in recreational activity.? The patient does not report intolerable side effects. The patient is NOT opioid naive and non-pharmacologic and non-opioid treatment has failed to significantly relieve the patient's pain and improve functionality. The patient has a diagnosis that is related to a somatic or visceral pain etiology. ? ?? I reviewed with the patient the potential risks and side effects with the use of? opioid medications including but not limited to respiratory depression,? sedation, and even . I verified the patient has access to naloxone should? these effects occur. I advised the patient to avoid the use of any other? sedation substances including alcohol, THC, and benzodiazepines while? taking opioid medications due to the risk of compounding side effects and? detrimental outcomes. I reviewed the [employer], pain treatment agreement, urine? drug screen, and opioid start talking forms. The patient was advised to let? their family know they had Naloxone in case they would need to administer? the medication.? ?? A drug screen was completed within the last year, and no aberrancies were noted regarding their use of controlled substances. The patient understands they are subject to the terms and conditions of the pain contract that they have signed. ? ?? I have checked an [place]AR[place] report on this patient today and there are no aberrancies noted in the prescribing history.? (4) Unspecified mononeuropathy of left lower limb: Assessment and Plan: consider left superior gluteal nerve block working towards thermal RFA for left superior gluteal neuritis if pain persists (5) Post laminectomy syndrome: (6) Lumbar radiculopathy: Assessment and Plan: caudal thuy discussed, defer at this time Plan continue current medications, can take baclofen 5-10mg BID PRN narcan previously prescribed and discussed continue f/u with cardiology, recently had defibrillator placed f/u 3 months
== END 2023-07-28 07:45 | disposition home or self-care (01) ==
PROVIDERS: PCP Nurse Practitioner Family; Visit Provider Nurse Practitioner
DX: M47.816 Spondylosis without myelopathy or radiculopathy, lumbar region (principal); M62.838 Other muscle spasm; Z79.891 Long term (current) use of opiate analgesic; G57.92 Unspecified mononeuropathy of left lower limb; M96.1 Postlaminectomy syndrome, not elsewhere classified; M54.16 Radiculopathy, lumbar region
CPT/HCPCS: G0463

== ENCOUNTER 2023-10-22 11:34 | Outpatient (OUT) | payer MEDICARE, SELFPAY ==
--- OUTSIDE RECORDS SUMMARY | 2023-10-22 11:46 | XMS_ITS | CCD ---
Author Organization [facility] Care Team Providers Care Dowel Maker Name Role Phone JOHNSON ., DR JAYLON Ruelas Admitting Unavailable ORNELAS ., DR JAYLON Ruelas Attending Unavailable [facility] Care Unavailable ORNELAS ., DR JAYLON Ruelas Consulting Unavailable MICHELINE MOLINA Consulting Unavailable ORNELAS ., DR JAYLON Ruelas Admitting Unavailable ORNELAS ., DR JAYLON Ruelas Attending Unavailable [facility] Primary Care Unavailable RODRIGUEZ ., SABRINA Consulting Unavailable ORNELAS ., DR JAYLON Ruelas Admitting Unavailable ORNELAS ., DR JAYLON Ruelas Attending Unavailable [facility] Primary Care Unavailable RODRIGUEZ ., SABRINA Consulting Unavailable [facility] Primary Care Unavailable LAKSHMIPATHY ., NARENDRANATH Admitting Charity vailable LAKSHMIPATHY ., NARENDRANATH Attending Charity vailable LAKSHMIPATHY ., NARENDRANATH Consulting Charity vailable LAKSHMIPATHY ., NARENDRANATH Admitting Charity vailable LAKSHMIPATHY ., NARENDRANATH Attending Charity vailable [facility] Primary Care Unavailable LUÍS, HEAVEN Admitting Unavailable HEAVEN STALEY Attending Unavailable [facility] Primary Care Unavailable DR SHAR VALENZUELA Consulting Unavailable [facility] Consulting Unavailable [facility], [facility] Primary Care Unavailable DAREK ., KEILY Admitting Unavailable DAREK ., KEILY Attending Unavailable DESIRE DOID Consulting Unavailable KELSIE DEL ANGEL Consulting Unavailable [facility] Primary Care Provider ROBERT MADDEN Admitting Unavailable ROBERT MADDEN Attending Unavailable SIVA, MATT Attending Unavailable VIRGIL FOLEY Attending Unavailable ROBERT MADDEN Attending Unavailable ROBERT MADDEN Referring Unavailable SIVA, EH Attending Unavailable ROBERT MADDEN Referring Unavailable SIVA Referring Unavailable ROBERT MADDEN Attending Unavailable ADELAIDA RIZO Attending Unavailable ROBERT MADDEN Referring Unavailable SIVA Admitting Unavailable MATT JEFFERSON Attending Unavailable Allergies Allergy Classification Reported Allergen(s) Allergy Type Date of Onset Reaction(s) Facility (2 sources) Codeine; Translations: [CODEINE] Drug Allergy 06-06-2014 [facility] Repository (1 source) Codeine Drug Allergy 06-06-2014 [facility] (2 sources) Lisinopril; Translations: [LISINOPRIL] Drug Allergy 10-19-2014 [facility] Medications Current Medications Medication Drug Class(es) Dates [...] 30 tablet 1 06/08/2023 Active lactobacillus acidophilus [id number] unt oral capsule (1 source) take 1 [...] Indications: Chronic systolic CHF (congestive heart failure) ([facility]) Take 1 tablet (25 mg total) by [...] 10-11-2020 Episodic Other aftercare (1 source) 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; Translations: [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 THERAPY] Onset: 05-19-2022 Episodic Other [...] Test Name Value Interpretation Reference Range Facility Orders Onlyon 08-27-2023 Orders Only [id number] Saul Gutiérrez 1945 F Date Provider Department Center 08/27/2023 LEATHA BAHENA MAGNUS [place] Family History Problem Relation Age of Onset Heart failure Father Family Status - Relation Status Age at Father Normal [facility] Office Visiton 07-14-2023 Follow-up visit [id number] Saul Gutiérrez 1945 F Date Provider Department Center 07/14/2023 ADELAIDA VALENCIA CARD [facility] Family History Problem Relation Age of Onset Heart failure Father Family Status - Relation Status Age at Father Level of Service:49090 [place] POSTOP FOLLOW UP VISIT RELATED TO ORIGINAL PX Normal [facility] HPon 07-05-2023 [facility] Electrophysiology Consult Note Reason for visit: Afib [...] GI bleed. She was previously seen by [facility] cardiology. She was initially seen by Dr. [...] Appearance: well-nourished, we (more content not included)... [facility] NURSNOTEon 07-05-2023 NURSNOTE RN educated pt on d/ c instructions. RN encouraged pt to voice any questions or concerns. Pt verbalizes no questions or concerns at this time. Pt was wheeled off of unit with all of belongings. [facility] NURSNOTE CHG wipes and betadine nasal swabs completed. [facility] Orders Onlyon 07-05-2023 Orders Only [id number] Saul Gutiérrez 1945 F Date Provider Department Center 07/05/2023 ELENA ATWOOD [facility] LAB [place] HeartVAS Family History Problem Relation Age of Onset Heart failure Father Family Status - Relation Status Age at Father [facility] Office Visiton 05-18-2023 Follow-up visit [id number] Saul Gutiérrez 1945 F Date Provider Department Center 05/18/2023 ROBERT GEE MAGNUS [place] Family History Problem Relation Age of Onset Heart failure Father Family Status - Relation Status Age at Father Level of Service:85182 [place] OFFICE/OUTPATIENT ESTABLISHED MOD MDM 30 MIN (GC) [facility] Office Visiton 03-23-2023 Follow-up visit [id number] Saul Gutiérrez 1945 Provider Department Center 03/23/2023 AntoniettaROBERT SHELBY CARD [facility] Family History Problem Relation Age of Onset Heart failure Father Family Status - Relation Status Age at Father Level of Service:88256 [place] OFFICE/OUTPATIENT NEW MODERATE MDM 45-59 MINUTES Normal [facility] Office Visiton 01-25-2023 Follow-up visit [id number] Saul Gutiérrez 1945 Provider Department Center 01/25/2023 JAMELTITAAiadn VIRGIL CARD [facility] Family History Problem Relation Age of Onset Heart failure Father Family Status - Relation Status Age at Father Level of Service:68047 [place] OFFICE/OUTPATIENT ESTABLISHED MOD MDM 30-39 MIN Normal [facility] Office Visiton 01-18-2023 Follow-up visit [id number] Saul Gutiérrez 1945 Provider Department Center 01/18/2023 MATT BARRERA MAGNUS [facility] Family History Problem Relation Age of Onset Heart failure Father Family Status - Relation Status Age at Father Level of Service:31859 [place] OFFICE/OUTPATIENT ESTABLISHED MOD MDM 30-39 MIN Normal [facility] Marlene 01-05-2023 ANES - Attestation signed by Matt Jefferson MD at 01/05/2023 9:33 AM Matt Jefferson MD, MPH, FACC, [facility], [facility] Interventional Cardiology Pager Email: [email or web address] Patient: Saul Gutiérrez Procedure Information Date/Time: 01/05/23929 Procedure: Coronary angiography (Left) Location: [facility] ANALYSIS SPECIALIST 3 / [facility] VASCULAR [facility] (Cath) Providers: Matt Jefferson [...] discussed with attending. Additional Equipment Requests Normal [facility] CBCon 01-05-2023 Erythrocyte distribution width (RBC) [Ratio] 14.8 % Normal 11.5-15.0 [facility] Comment on above: Performed By: #### L [id number] ####[facility] ([employer])[address] [place] [address] ERYTHROCYTE MEAN CORPUSCULAR HEMOGLOBIN CONCENTRATION (G/DL) BY AUTOMATED 31.4 g/dL Low 32.0-35.0 [facility] Comment on above: Performed By: #### L [id number] ####[facility] ([employer])[address] [place] [address] Hematocrit (Bld) [Volume fraction] 42.0 % Normal 36.0-48.0 [facility] Comment on above: Performed By: #### L [id number] ####[facility] ([employer])[address] [place] [address] Hemoglobin (Bld) [Mass/Vol] 13.2 g/dL Normal 12.0-15.0 [facility] Comment on above: Performed By: #### L [id number] ####[facility] ([employer])[address] [place] [address] MCH (RBC) [Entitic mass] 30.3 pg Normal 27.0-33.0 [facility] Comment on above: Performed By: #### L [id number] ####[facility] (BEAKER)[address] [place] [address] MCV (RBC) [Entitic vol] 96.3 fL Normal 82.0-98.0 [facility] Comment on above: Performed By: #### L [id number] ####[facility] ([facility] [place] [address] PLATELETS (10*3/UL) IN BLOOD AUTOMATED COUNT 231 10*3/uL Normal 150-400 [facility] Comment on above: Performed By: #### L [id number] ####[facility] ([facility])[address] [place] [address] RBC (Bld) [#/Vol] 4.36 10*6/uL Normal 3.80-5.00 [facility] Comment on above: Performed By: #### L [id number] ####[facility] ([facility])[address] [place] [address] WBC (Bld) [#/Vol] 8.83 10*3/uL Normal 4.00-10.60 [facility] Comment on above: Performed By: #### L [id number] ####[facility] ([facility])[address] [place] [address] HPon 01-05-2023 - Attestation signed by Matt Jefferson MD [...] documentation from me. Matt Jefferson MD, MPH, [facility], [facility], [facility] Interventional Cardiology Pager Email: [email or web address] History Of Present Illness Saul Gutiérrez is a 77 y.o. female with history of Afib, CKD III, nonischemic cardiomyopathy, with new drop of EF from 40-45% to 35% presenting for coronary angiography. Patient was evaluated in office in October 2022 for second opinion. She was referred for stress test which was reportedly positive (done in [facility]). Patient reports exertional shortness of breath and [...] SpO2 100 %. Relevant Results HB 13.2 [employer] 1.32 Assessment/Plan Principal Problem: Abnormal cardiovascular stress test 1- Abnormal Stress test 2- HFrEF with new reduction of EF (40-45% down to 35%) 3- History of NICM 4- Normal coronary angio in 2013 5- Exertional Dyspnea Plan to proceed with coronary angiography today. [facility] NURSNOTEon 01-05-2023 NURSNOTE RN educated pt on d/ c instructions. RN encouraged pt to voice any questions or concerns. Pt verbalizes no questions or concerns at this time. Pt was wheeled off of unit with all of belongings. [facility] Orders Onlyon 12-18-2022 Orders Only [id number] Saul Gutiérrez 1945 F Date Provider Department Center 12/18/2022 928-CARIDAD LOVE CARD [facility] Family History Problem Relation Age of Onset Heart failure Father Family Status - Relation Status Age at Father [facility] Office Visiton 11-23-2022 Follow-up visit [id number] Saul Gutiérrez 1945 Provider Department Center 11/23/2022 271-MATT JEFFERSON CARD [facility] Family History Problem Relation Age of Onset Heart failure Father Family Status - Relation Status Age at Father Level of Service:09731 [place] OFFICE/OUTPATIENT NEW HIGH MDM 60-74 MINUTES [facility] INSULINon 09-23-2022 Insulin 7.9 uIU/mL Normal 2.6-24.9 [facility] Comment on above: Performed By: #### I NSULIN ####[facility] [address] [place] [address]Dr. Ravin Dior CBC AUTO DIFFon 09-22-2022 BASO # 0.0 103/ul Normal 0.0-0.1 [facility] Comment on above: Performed By: #### C BC ####[facility] [address] [place] [address]Dr. Ravin Dior Basophils/100 WBC (Bld) 0.4 % Normal 0.2-2.0 [facility] Comment on above: Performed By: #### C BC ####[facility] [address] [place] [address]Dr. Ravin Dior EO # 0.6 103/ul Normal 0.0-0.7 [facility] Comment on above: Performed By: #### C BC ####[facility] [address] [place] [address]Dr. Ravin Dior Eosinophils/100 WBC (Bld) 6.6 % Normal 0.9-7.0 [facility] Comment on above: Performed By: #### C BC ####[facility] [address] [place] [address]Dr. Ravin Dior Erythrocyte distribution width (RBC) [Ratio] 16.2 % Critically high 11.0-15.0 [facility] Comment on above: Performed By: #### C BC ####[facility] [address] [place], [place] [address]Dr. Ravin Dior Hematocrit (Bld) [Volume fraction] 43.3 % Normal 36.0-48.0 [facility] Comment on above: Performed By: #### C BC ####[facility] [address] [place], [place] [address]Dr. Ravin Dior Hemoglobin (Bld) [Mass/Vol] 13.4 g/dL Normal 12.0-16.0 [facility] Comment on above: Performed By: #### C BC ####[facility] [address] [place], [place] [address]Dr. Ravin Dior IG # 0.05 10e3/ul Critically high 0.00-0.03 [facility] Comment on above: Performed By: #### C BC ####[facility] [address] [place], [place] [address]Dr. Ravin Dior IG % 0.5 % Normal 0.0-0.5 [facility] Comment on above: Performed By: #### C BC ####[facility] [address] [place], [place] [address]Dr. Ravin Dior LYMPH # 2.1 103/ul Normal 1.2-3.8 [facility] Comment on above: Performed By: #### C BC ####[facility] [address] [place], [place] [address]Dr. Ravin Dior Lymphocytes/100 WBC (Bld) 23.1 % Normal 20.5-60.0 [facility] Comment on above: Performed By: #### C BC ####[facility] [address] [place] [id number]. Ravin Dior MANUAL DIFF REQ NO Normal [facility] Comment on above: Performed By: #### C BC ####[facility] [address] [place] [phone]. Ravin Dior MCH (RBC) [Entitic mass] 29.5 pg Normal 26.7-34.0 [facility] Comment on above: Performed By: #### C BC ####[facility] [address] [place] [id number]. Ravin Dior MCHC (RBC) [Mass/Vol] 30.9 g/dL Normal 29.9-35.2 [facility] Comment on above: Performed By: #### C BC ####[facility] [address] [place], [place] [address]Dr. Ravin Dior MCV (RBC) [Entitic vol] 95.4 fL Normal 81.0-99.0 [facility] Comment on above: Performed By: #### C BC ####[facility] [address] [place], [place] [address]Dr. Ravin Dior MONO # 0.5 103/ul Normal 0.3-0.8 [facility] Comment on above: Performed By: #### C BC ####[facility] [address] [place], [place] [address]Dr. Ravin Dior Monocytes/100 WBC (Bld) 5.8 % Normal 1.7-12.0 [facility] Comment on above: Performed By: #### C BC ####[facility] [address] [place], [place] [address]Dr. Ravin Dior NEUT # 5.8 103/ul Normal 1.4-6.5 [facility] Comment on above: Performed By: #### C BC ####[facility] [address] [place], [place] [address]Dr. Ravin Dior Neutrophils/100 WBC (Bld) 63.6 % Normal 43.0-75.0 [facility] Comment on above: Performed By: #### C BC ####[facility] [address] [place], [place] [address]Fz. Ravin Dior Platelet mean volume (Bld) [Entitic vol] 10.7 fL Normal 9.5-13.5 [facility] Comment on above: Performed By: #### C BC ####[facility] [address] [place] [phone]. Ravin Dior PLT 223 103/ul Normal 150-450 [facility] Comment on above: Performed By: #### C BC ####[facility] [address] [place] [phone]. Ravin Dior RBC 4.54 106/ul Normal 4.20-5.40 [facility] Comment on above: Performed By: #### C BC ####[facility] [address] [place] [phone]. Ravin Dior WBC 9.2 103/ul Normal 4.0-11.0 [facility] Comment on above: Performed By: #### C BC ####[facility] [address] [place] [phone] Dior FREE THYROXINE INDEX T7on FTI 2.44 Normal 1.30-4.50 [facility] Comment on above: Performed By: #### C MP, T7, TSH, LIPID #### [facility] [address] [place] [address] [address] Ravin Dior T3U 33.0 % Normal 30.0-39.0 [facility] Comment on above: Performed By: #### C MP, T7, TSH, LIPID #### [facility] [address] [place], [place] [address] Dr. Ravin Dior T4 [Mass/Vol] 7.40 ug/dL Normal 4.80-13.90 [facility] Comment on above: Performed By: #### C MP, T7, TSH, LIPID #### [facility] [address] [place] [id number] Ravin Dior GLYCOHEMOGLOBIN A1Con 2022 ADA RECOMMENDATION SEE BELOW Normal [facility] Comment on above: Result Comment: ADA RECOMMENDED LIMIT 4.0 - 6.0 ADA THERAPEUTIC TARGET < 7.0 ACTION SUGGESTED > 7.0 Performed By: #### A 1C ####[facility] [address] [place] [address]Dr. Ravin Dior Glucose [Mass/Vol] 105 mg/dL Normal [facility] Comment on above: Performed By: #### A 1C ####[facility] [address] [place], [place] [address]Dr. Ravin Dior HbA1c (Bld) [Mass fraction] 5.3 % Normal 4.5-6.2 [facility] Comment on above: Performed By: #### A 1C ####[facility] [address] [place], [place] [address]Dr. Ravin Dior IRONon 09-22-2022 Iron [Mass/Vol] 81.0 ug/dL Normal 50.0-170.0 [facility] Comment on above: Performed By: #### I SEAMUS ####[facility] [address] [place], [place] [address]Dr. Ravin Dior LIPID PROFILEon 09-22-2022 CHOL-HDL RATIO NORM SEE BELOW Normal [facility] Comment on above: Result Comment: 3.3 - 4.4 LOW RISK 4.4 - 7.1 AVERAGE RISK 7.1 - 11.0 MODERATE RISK >11.0 HIGH RISK Performed By: #### C MP, T7, TSH, LIPID ####[facility] [address] [place], [place] [address]Dr. Ravin Dior Cholesterol [Mass/Vol] 159 mg/dL Normal <=200 [facility] Comment on above: Performed By: #### C MP, T7, TSH, LIPID ####[facility] [address] [place] [address]Dr. Ravin Dior Cholesterol in HDL [Mass/Vol] 47 mg/dL Normal 40-60 [facility] Comment on above: Performed By: #### C MP, T7, TSH, LIPID ####[facility] [address] [place] [address]Dr. Yililliana Dior Cholesterol in LDL [Mass/Vol] 96.4 mg/dL Normal [facility] Comment on above: Performed By: #### C MP, T7, TSH, LIPID ####[facility] [address] [place] [phone]. Ravin Dior Cholesterol.total/Cho lesterol in HDL [Mass ratio] 3.4 {ratio} Normal [facility] Comment on above: Performed By: #### C MP, T7, TSH, LIPID ####[facility] [address] [place] [phone]. Ravin Dior HDL NORMAL > or = 60 mg/dl - LO W CARDIOVASCULAR RISK <40 mg/dl - HIGH CARDIOVASCULAR RISK Normal [facility] Comment on above: Performed By: #### C MP, T7, TSH, LIPID ####[facility] [address] [place] [address]Dr. Ravin Dior LDL CALC NORMAL SEE BELOW Normal [facility] Comment on above: Result Comment: <100 mg/dl OPTIMAL 100 - 129 mg/dl NEAR OR ABOVE OPTIMAL 130 - 159 mg/dl BORDERLINE HIGH 160 - 189 mg/dl HIGH >190 mg/dl VERY HIGH Performed By: #### C MP, T7, TSH, LIPID ####[facility] [address] [place] [address]Dr. Ravin Dior Triglyceride [Mass/Vol] 78 mg/dL Normal <=150 [facility] Comment on above: Performed By: #### C MP, T7, TSH, LIPID ####[facility] [address] [place] [phone]. Ravin Dior VLDL CALC 15.6 mg/dL Normal [facility] Comment on above: Performed By: #### C MP, T7, TSH, LIPID ####[facility] [address] [place] [phone]. Ravin Dior MG MAMM SCREEN 3D NIKOS CADon 09-22-2022 MG MAMM SCREEN 3D NIKOS CAD Patient: SAUL GUTIÉRREZ Exam Date: 09/22/2022 : 1945 Gender:F [facility]ing : [facility] Admission #: [id number] Family : Order #: [id number] CLICK HERE TO VIEW EXAM RADIOLOGY REPORT [...] No Treatments None Family Cancers None LOCATION: [facility] BREAST COMPOSITION: Almost entirely fatty. FINDINGS: DIAGNOSTIC [...] Valenzuela M.D. on 09/22/2022 at 17:02 Normal [facility] PROF 14(COMP METB)on 09-22- 023 Albumin [Mass/Vol] 3.3 g/dL Critically low 3.4-5.[address] [facility] Comment on above: Performed By: #### C MP, T7, TSH, LIPID #### [facility] [address] [place] [address] [address] Ravin Dior Albumin/Globulin [Mass ratio] 0.7 {ratio} Normal [facility] Comment on above: Performed By: #### C MP, T7, TSH, LIPID #### [facility] [address] [place], [place] [address] Dr. Ravin Dior ALP [Catalytic activity/Vol] 207 U/L Critically high 46-116 [facility] Comment on above: Performed By: #### C MP, T7, TSH, LIPID #### [facility] [address] [place], [place] [address] Dr. Ravin Dior ALT [Catalytic activity/Vol] 47 U/L Normal 14-59 [facility] Comment on above: Performed By: #### C MP, T7, TSH, LIPID #### [facility] [address] [place] [address] [address] Ravin Dior Anion gap [Moles/Vol] 11.5 mmol/L Normal Th [facility] Comment on above: Performed By: #### C MP, T7, TSH, LIPID #### [facility] [address] [place] [address] [address] Ravin Dior AST [Catalytic activity/Vol] 35 U/L Normal 15-37 [facility] Comment on above: Performed By: #### C MP, T7, TSH, LIPID #### [facility] [address] [place] [address] [address] Ravin Dior Bilirubin [Mass/Vol] 0.6 mg/dL Normal 0.2-1.0 [facility] Comment on above: Performed By: #### C MP, T7, TSH, LIPID #### [facility] [address] [place] [address] Dr. Ravin Dior Calcium [Mass/Vol] 9.2 mg/dL Normal 8.5-10.1 [facility] Comment on above: Performed By: #### C MP, T7, TSH, LIPID #### [facility] [address] [address] [address] Ravin Dior Chloride [Moles/Vol] 109 mmol/L Critically high 98-107 [facility] Comment on above: Performed By: #### C MP, T7, TSH, LIPID #### [facility] [address] [place] [address] [address] Ravin Dior CO2 [Moles/Vol] 27.7 mmol/L Normal 21.0-32.0 [facility] Comment on above: Performed By: #### C MP, T7, TSH, LIPID #### [facility] [address] [address] [address] Ravin Dior Creatinine [Mass/Vol] 0.94 mg/dL Normal 0.55-1.02 [facility] Comment on above: Performed By: #### C MP, T7, TSH, LIPID #### [facility] [address] [place] [address] [address] Ravin Dior EGFR-AF MALDIVIAN >60 Normal >=60 [facility] Comment on above: Performed By: #### C MP, T7, TSH, LIPID #### [facility] [address] [place] [address] [address] Ravin Dior EGFR-NON AF MALDIVIAN 58 mL/min/1.73m2 Critically low >=60 [facility] Comment on above: Performed By: #### C MP, T7, TSH, LIPID #### [facility] [address] [place] [address] Dr. Ravin Dior Globulin (S) [Mass/Vol] 4.7 g/dL Normal [facility] Comment on above: Performed By: #### C MP, T7, TSH, LIPID #### [facility] [address] [place] [address] Dr. Ravin Dior Glucose [Mass/Vol] 95 mg/dL Normal 74-106 [facility] Comment on above: Performed By: #### C MP, T7, TSH, LIPID #### [facility] [address] [place] [address] Dr. Ravin Dior Potassium [Moles/Vol] 4.2 mmol/L Normal 3.5-5.1 [facility] Comment on above: Performed By: #### C MP, T7, TSH, LIPID #### [facility] [address] [place] [address] Dr. Ravin Dior Protein [Mass/Vol] 8.0 g/dL Normal 6.4-8.2 [facility] Comment on above: Performed By: #### C MP, T7, TSH, LIPID #### [facility] [address] [place] [address] Dr. Rvain Dior Sodium [Moles/Vol] 144 mmol/L Normal 136-145 [facility] Comment on above: Performed By: #### C MP, T7, TSH, LIPID #### [facility] [address] [place] [address] Dr. Ravin Dior Urea nitrogen [Mass/Vol] 21.0 mg/dL Critically high 7.0-18.0 [facility] Comment on above: Performed By: #### C MP, T7, TSH, LIPID #### [facility] [address], [place] [address] Dr. Ravin Dior Urea nitrogen/Creatinine [Mass ratio] 22.3 mg/mg Normal [facility] Comment on above: Performed By: #### C MP, T7, TSH, LIPID #### [facility] [address] [address] [address] Ravin Dior TSHon 09-22-2022 TSH 2.085 uIU/mL Normal 0.358-3.740 [facility] Comment on above: Performed By: #### C MP, T7, TSH, LIPID #### [facility] [address] ABD/PELVIS WO CONon [...] was used, including Automated Exposure Control. FINDINGS: Garment Inspector: No pertinent findings, which are not already [...] the largest most superior hernia. Normal [facility] CBC AUTO DIFFon 05-17-2022 BASO # 0.0 103/ul Normal 0.0-0.1 [facility] Comment on above: Performed By: #### C BC ####[facility] [address] [address]Dr. Ravin Dior Basophils/100 WBC (Bld) 0.2 % Normal 0.2-2.0 [facility] Comment on above: Performed By: #### C BC ####[facility] [address] [address]Dr. Ravin Dior EO # 0.1 103/ul Normal 0.0-0.7 [facility] Comment on above: Performed By: #### C BC ####[facility] [address] [id number]. Ravin Dior Eosinophils/100 WBC (Bld) 1.4 % Normal 0.9-7.0 [facility] Comment on above: Performed By: #### C BC ####[facility] [address] [id number]. Ravin Dior Erythrocyte distribution width (RBC) [Ratio] 13.7 % Normal 11.0-15.0 [facility] Comment on above: Performed By: #### C BC ####[facility] [address] [address]Dr. Ravin Dior Hematocrit (Bld) [Volume fraction] 44.4 % Normal 36.0-48.0 [facility] Comment on above: Performed By: #### C BC ####[facility] [address] [address]Dr. Ravin Dior Hemoglobin (Bld) [Mass/Vol] 14.7 g/dL Normal 12.0-16.0 [facility] Comment on above: Performed By: #### C BC ####[facility] [address] [address]Dr. Ravin Dior IG # 0.05 10e3/ul Critically high 0.00-0.03 [facility] Comment on above: Performed By: #### C BC ####[facility] [address] [place], [place] [address]Dr. Novalilliana Dior IG % 0.5 % Normal 0.0-0.5 [facility] Comment on above: Performed By: #### C BC ####[facility] [address] [address]Dr. Novalilliana Dior LYMPH # 1.7 103/ul Normal 1.2-3.8 [facility] Comment on above: Performed By: #### C BC ####[facility] [address] [place], [place] [address]Dr. Novalilliana Dior Lymphocytes/100 WBC (Bld) 17.1 % Critically low 20.5-60.0 [facility] Comment on above: Performed By: #### C BC ####[facility] [address] [place], [place] [address]Dr. Ravin Dior MANUAL DIFF REQ NO Normal [facility] Comment on above: Performed By: #### C BC ####[facility] [address] [address]Dr. Ravin Dior MCH (RBC) [Entitic mass] 30.7 pg Normal 26.7-34.0 [facility] Comment on above: Performed By: #### C BC ####[facility] [address] [id number]. Ravin Dior MCHC (RBC) [Mass/Vol] 33.1 g/dL Normal 29.9-35.2 [facility] Comment on above: Performed By: #### C BC ####[facility] [address] [id number]. Ravin Dior MCV (RBC) [Entitic vol] 92.7 fL Normal 81.0-99.0 [facility] Comment on above: Performed By: #### C BC ####[facility] [address] [place], [place] [address]DrViky Ravin Dior MONO # 0.6 103/ul Normal 0.3-0.8 [facility] Comment on above: Performed By: #### C BC ####[facility] [address] [place], [place] [address]Dr. Ravin Dior Monocytes/100 WBC (Bld) 5.7 % Normal 1.7-12.0 [facility] Comment on above: Performed By: #### C BC ####[facility] [address] [place], [place] [address]Dr. Ravin Dior NEUT # 7.7 103/ul Critically high 1.4-6.5 [facility] Comment on above: Performed By: #### C BC ####[facility] [address] [place], [place] [address]DrViky Ravin Ovi Neutrophils/100 WBC (Bld) 75.1 % Critically high 43.0-75.0 [facility] Comment on above: Performed By: #### C BC ####[facility] [address] [place], [place] [id number]. Ravin Dior Platelet mean volume (Bld) [Entitic vol] 10.4 fL Normal 9.5-13.5 [facility] Comment on above: Performed By: #### C BC ####[facility] [address] [id number]. Ravin Dior PLT 294 103/ul Normal 150-450 [facility] Comment on above: Performed By: #### C BC ####[facility] [address] [address]Dr. Novalilliana Dior RBC 4.79 106/ul Normal 4.20-5.40 [facility] Comment on above: Performed By: #### C BC ####[facility] [address] [address]Dr. Ravin Dior WBC 10.2 103/ul Normal 4.0-11.0 [facility] Comment on above: Performed By: #### C BC ####[facility] [address] [address]DrViky Dior ER URINE PROFILEon 2 Bilirubin Ql (U) Negative Normal NEGATIVE [facility] Comment on above: Performed By: #### DENY KAUFFMANRO #### [facility] [address] [place] [address] Dr. Ravin Dior Clarity (U) CLEAR Normal CLEAR [facility] Comment on above: Performed By: #### DENY KAUFFMANRO #### [facility] [address] [place] [address] Dr. Ravin Dior Color (U) LT. YELLOW Normal YELLOW [facility] Comment on above: Performed By: #### DENY KAUFFMANRO #### [facility] [address] [place] [address] Dr. Ravin PARKER A micrscopic examination will be performed if indicated. Normal [facility] Comment on above: Performed By: #### DENY KAUFFMANRO #### [facility] [address] [place] [address] Dr. Ravin Dior Glucose Ql (U) Negative Normal NEGATIVE [facility] Comment on above: Performed By: #### DENY KAUFFMANRO #### [facility] [address] [place] [address] Dr. Ravin Dior Hemoglobin Ql (U) Negative Normal NEGATIVE [facility] Comment on above: Performed By: #### Tammy SOUTH UMICRO #### [facility] [address] [address] [address] Ravin Dior Ketones Ql (U) TRACE Abnormal NEGATIVE [facility] Comment on above: Performed By: #### Tammy SOUTH UMICRO #### [facility] [address] [place] [address] Dr. Ravin Dior LEUKOCYTES SMALL Abnormal NEGATIVE [facility] Comment on above: Performed By: #### Tammy SOUTH UMICRO #### [facility] [address] [address] [address] Ravin Dior Nitrite Ql (U) Negative Normal NEGATIVE [facility] Comment on above: Performed By: #### Tammy SOUTH UMICRO #### [facility] [address] [place] [address] Dr. Ravin Dior pH (U) 6.0 [pH] Normal 5-9 [facility] Comment on above: Performed By: #### Tammy SOUTH UMICRO #### [facility] [address] [place] [address] Dr. Ravin Dior SPEC GRAVITY 1.010 Normal 1.005-<=1.025 [facility] Comment on above: Performed By: #### Tammy SOUTH UMICRO #### [facility] [address] [place] [address] Dr. Ravin Dior UA PROTEIN Negative Normal NEGATIVE/ TRACE [facility] Comment on above: Performed By: #### Tammy SOUTH UMICRO #### [facility] [address] [place] [address] Dr. Ravin Dior UR MICRO IND INDICATED Normal [facility] Comment on above: Performed By: #### Tammy SOUTH UMICRO #### [facility] [address] [place] [address] Dr. Ravin Dior Urobilinogen Qn (U) 0.2 {Chandler'U}/dL Normal 0.2 - 1. 0 [facility] Comment on above: Performed By: #### Tammy SOUTH UMICRO #### [facility] [address] [address] [address] Ravin Dior LACTATE/LACTIC ACIDon 2021 Lactate [Moles/Vol] 1.3 mmol/L Normal 0.4-1.9 [facility] Comment on above: Performed By: #### L ACT ####[facility] [address] [address]Dr. Ravin Dior LIPASEon 05-17-2022 Lipase [Catalytic activity/Vol] 63.0 U/L Critically low 73.0-393.0 [facility] Comment on above: Performed By: #### C MP, LIPA #### [facility] [address] [address] [address] Ravin Dior PROF 14(COMP METB)on 022 Albumin [Mass/Vol] 3.4 g/dL Normal 3.4-5.0 [facility] Comment on above: Performed By: #### C MP, LIPA #### [facility] [address] [place] [address] Dr. Ravin Dior Albumin/Globulin [Mass ratio] 0.8 {ratio} Normal [facility] Comment on above: Performed By: #### C MP, LIPA #### [facility] [address] [place] [address] Dr. Ravin Dior ALP [Catalytic activity/Vol] 143 U/L Critically high 46-116 [facility] Comment on above: Performed By: #### C MP, LIPA #### [facility] [address] [address] [address] Ravin Dior ALT [Catalytic activity/Vol] 29 U/L Normal 14-59 [facility] Comment on above: Performed By: #### C MP, LIPA #### [facility] [address] [place] [address] Dr. Ravin Dior Anion gap [Moles/Vol] 7.6 mmol/L Normal [facility] Comment on above: Performed By: #### C MP, LIPA #### [facility] [address] [place] [address] Dr. Ravin Dior AST [Catalytic activity/Vol] 39 U/L Critically high 15-37 [facility] Comment on above: Performed By: #### C MP, LIPA #### [facility] [address] [place] [address] Dr. Ravin Dior Bilirubin [Mass/Vol] 0.7 mg/dL Normal 0.2-1.0 [facility] Comment on above: Performed By: #### C MP, LIPA #### [facility] [address] [place] [address] Dr. Ravin Dior Calcium [Mass/Vol] 9.1 mg/dL Normal 8.5-10.1 [facility] Comment on above: Performed By: #### C MP, LIPA #### [facility] [address] [place] [address] Dr. Ravin Dior Chloride [Moles/Vol] 102 mmol/L Normal 98-107 [facility] Comment on above: Performed By: #### C MP, LIPA #### [facility] [address] [place] [address] Dr. Ravin Dior CO2 [Moles/Vol] 31.1 mmol/L Normal 21.0-32.0 [facility] Comment on above: Performed By: #### C MP, LIPA #### [facility] [address] [place] [address] Dr. Ravin Dior Creatinine [Mass/Vol] 0.88 mg/dL Normal 0.55-1.02 [facility] Comment on above: Performed By: #### C MP, LIPA #### [facility] [address] [place] [address] Dr. Ravin Dior EGFR-AF MALDIVIAN >60 Normal >=60 [facility] Comment on above: Performed By: #### C MP, LIPA #### [facility] [address] [place] [address] Dr. Ravin Dior EGFR-NON AF MALDIVIAN >60 Normal >=60 [facility] Comment on above: Performed By: #### C MP, LIPA #### [facility] [address] [place] [address] Dr. Ravin Dior Globulin (S) [Mass/Vol] 4.5 g/dL Normal [facility] Comment on above: Performed By: #### C MP, LIPA #### [facility] [address] [place] [address] Dr. Ravin Dior Glucose [Mass/Vol] 100 mg/dL Normal 74-106 [facility] Comment on above: Performed By: #### C MP, LIPA #### [facility] [address] [place] [address] Dr. Ravin Dior Potassium [Moles/Vol] 3.7 mmol/L Normal 3.5-5.1 [facility] Comment on above: Performed By: #### C MP, LIPA #### [facility] [address] [place] [address] Dr. Ravin Dior Protein [Mass/Vol] 7.9 g/dL Normal 6.4-8.2 [facility] Comment on above: Performed By: #### C MP, LIPA #### [facility] [address] [place] [address] Dr. Ravin Dior Sodium [Moles/Vol] 137 mmol/L Normal 136-145 [facility] Comment on above: Performed By: #### C ROGELIO, LIPA #### [facility] [address] [place] [address] Dr. Ravin Dior Urea nitrogen [Mass/Vol] 12.0 mg/dL Normal 7.0-18.0 [facility] Comment on above: Performed By: #### C MP, LIPA #### [facility] [address] [place] [address] Dr. Ravin Dior Urea nitrogen/Creatinine [Mass ratio] 13.6 mg/mg Normal [facility] Comment on above: Performed By: #### C MP, LIPA #### [facility] [address] [place] [address] Dr. Ravin Dior URINE MICROSCOPIC ONLYon BACTERIA NONE SEEN Normal NONE SEEN [facility] Comment on above: Performed By: #### ALDA KAUFFMAN #### [facility] [address] [place], [place] [id number] Dr. Ravin Dior Bacteria identified Cx Nom (U) NOT INDICATED Normal [facility] Comment on above: Performed By: #### E NIKKIR, UMICRO #### [facility] [address] [place] [address] Dr. Ravin Dior CAST NONE SEEN Normal NONE SEEN [facility] Comment on above: Performed By: #### E RUR, UMICRO #### [facility] [address] [place] [address] Dr. Ravin Dior Crystals LM Nom (Urine sed) NONE SEEN Normal NONE SEEN [facility] Comment on above: Performed By: #### E RUR, UMICRO #### [facility] [address] [place] [address] Dr. Ravin Dior Epithelial cells LM Ql (Urine sed) FEW Abnormal NONE SEEN /RARE [facility] Comment on above: Performed By: #### E BRANNON, UMICRO #### [facility] [address] [place] [address] Dr. Ravin Dior MUCOUS NONE SEEN Normal NONE SEEN [facility] Comment on above: Performed By: #### Tammy SOUTH, UMICRO #### [facility] [address] [place] [address] Dr. Ravin Dior RBC NONE SEEN Abnormal 0-2 [facility] Comment on above: Performed By: #### E BRANNON, UMICRO #### [facility] [address] [place] [address] Dr. Ravin Dior WBC 0-2 Abnormal NONE SEEN [facility] Comment on above: Performed By: #### E NIKKIR, UMICRO #### [facility] [address] [place] [address] Dr. Ravin Dior Ambulatory Clinical Summaryo n 07-24-2020 Ambulatory Clinical Summary {[id number] Normal [facility] Gastroenterology Office/Clin ic Noteon 07-24-2020 Gastroenterology [...] course, # 28 cap(s), Refills(s) 0, Pharmacy: [id number], 165, cm, 07/24/20 12:03:00 EST, Height/Length Dosing, 95.9, kg, 07/24/20 12:03:00 EST, Weight Dosing metronidazole, 250 mg = 1 tab(s), Oral, TID, X 7 day(s), # 21 tab(s), Refills(s) 0, [id number], 165, cm, 07/24/20 12:03:00 EST, Height/Length [...] water, # 160 cap(s), Refills(s) 1, [id number], 165, cm, 07/24/20 12:03:00 EST, Height/Length Dosing, 95.9, kg, 07/24/20 12:03:... Orders: pantoprazole, 40 mg = 2 tab(s), Oral, Daily, X 90 day(s), # 180 tab(s), Refills(s) 3, [id number], 165, cm, 07/24/20 12:03:00 EST, Height/Length Dosing, 95.9, kg, 07/24/20 12:03:00 EST, Weight Dosing Follow-up With When Contact Information Isabelle Ramirez MD In 12 months [address], [place] [address]- Additional Instructions: Problem List/Past Medical [...] 12/16/2018 Exercise - Occasional exercise, 12/16/2018 Other Iwvtthtv-6-5 cups blair;y, 12/16/2018 Substance Abuse - Denies Substance Abuse, 12/16/2018 Tobacco Never (less than 100 in lifetime) Tobacco Use:., 07/24/2020 Never (less than 100 in lifetime) Tobacco Use:. Never Smokeless Tobacco Use:., 02/01/2019 [facility] Comment on above: Result Comment: Elec tronically Signed By: Taylor Mccauley MD, Isabelle\.br\Date and Time Signed: 07/24/20 13:13 EST Auth for Release of Medical Recordson 02-09-2020 Auth for Release of Medical Records [id number] [facility] Patient Letter [facility] January 24, 2020 [place] [address] SAUL GUTIÉRREZ 1945 Dear Saul, This is a reminder that you are due for an appointment with Dr. Garland or Dr. Mccauley. Please call [facility] at [phone] to schedule an appointment at your earliest convenience. Thank you, [facility] Encounters Encounter Date Encounter Type Care Provider Facility Start: 08-10-2023 End: 08-10-2023 ambulatory [facility] Start: 07-14-2023 End: [facility]: 07-05-2023 ambulatory [facility] Start: 07-05-2023 End: 07-05-2023 ambulatory [facility] Start: 06-05-2023 Refill Mac Lujan sser VENEER SLICING MACHINE OPERATOR-BIOMEDICAL INSTRUMENT TECHNICIAN Work Phone: [facility] Comment on above: Med Refill Start: 05-18-2023 End: 05-18-2023 ambulatory [facility] Start: 03-23-2023 End: 03-26-2023 ambulatory [facility] Start: 01-25-2023 End: 01-25-2023 ambulatory [facility] Start: 01-18-2023 End: 01-18-2023 ambulatory [facility] Start: 01-05-2023 End: 01-05-2023 ambulatory [facility] Start: 11-23-2022 End: 11-23-2022 ambulatory [facility] Start: 09-22-2022 End: 09-23-2022 ambulatory HEAVEN STALEY [...] Adult BMI Screening Adult BMI Screen ing [facility] Start: 08-25-2023 Tobacco Screening Tobacco Screening [facility] Start: 01-29-2023 COVID-19 Vaccine ( season) COVID-19 Vaccine ( season) [facility] Start: 01-29-2023 Influenza vaccination Influenza Vacc ine [facility] Start: 11-03-2022 ambulatory Ambulatory Facility:H 1 Start: 2010 Fall Risk Screening Fall Risk Screen ing [facility] Start: 1995 Administration of varicella zoster vaccine Zoster (Shingles) Vaccine (1 of 2) [facility] Start: 1964 DTaP,Tdap and Td Vac cines (1 - Tdap) DTaP,Tdap and Td Vaccines (1 - Tdap) [facility] Start: 1963 Adult BMI Follow Up Plan Adult BMI Follow Up Plan [facility] Start: 1957 Depression Screening Depression Scre ening [facility] Start: 1945 Medicare Annual Well ness Visit Medicare Annual Wellness Visit [facility] End: 06-08-2024 Basic metabolic 2000 panel - Serum or Plasma Basic Metabolic Panel Lab Routine Essential hypertension 1 Occurrences starting 06/08/2023 until 06/08/2024 [facility] Work Phone: Comment on above: 1 Occurrences starti ng 06/08/2023 until 06/08/2024 Immunizations Immunization Date Immunization Notes Care Provider Tutu rehman 05-08-2021 influenza virus vaccine, unspecified formulation Mac Erwin VENEER SLICING MACHINE OPERATOR-BIOMEDICAL INSTRUMENT TECHNICIAN Work Phone: [facility] Payers Date Payer Category Payer Medicare [employer] MEDICARE [place] [id number] 2013-Present [phone] [address] [address] [place] [address] [id number] 1959 Medicare [id number] 1945 Unknown [id number] 1945 Unknown [id number] 1945 Unknown [id number] 1945 Unknown [id number] 1945 Unknown [id number] 1945 Unknown [id number] 1945 Unknown [id number] Social History Date Type Detail Facility Start: 05-26-2022 Tobacco smoking stat [facility] Never smoked tobacco [facility] Start: 05-26-2022 Tobacco use and exposure Smoke less tobacco non-user [facility] Start: 08-24-2022 Alcohol intake 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 (finding) [facility] Start: 07-04-2020 End: 08-24-2022 History of Social function [facility] Start: 07-04-2020 End: 08-24-2022 Tobacco use panel [facility] Housing Instability Unknown [facility] Start: 1945 Sex Assigned At Not on file P [facility] Medical Equipment Procedure Code Equipment Code Equipment Origin al Text Equipment Identifier Dates Mesh [id number] 3d Rect Plstr Clgn Symbotex 2 Sd Comp Mfl Babsr Rpl [id number] - Sna - [id number] Start: 06-30-2022 Dev Clsr 30fr Watchman 30mm - [id number] Start: 10-28-2018 Clinical Notes 12-24-2021 to 08-27-2023 Note Date & Type Note Facility 08-27-[address] [facility] 07-14-[address] [facility] 07-14-2023 Note Patient here for wou nd check s/p BiV ICD implant on 07/05/[address] Madden. [facility] 07-14-2023 Note [facility] CARDIOLOGY PROGR ESS NOTE HPI: Saul Gutiérrez is a 77 y.o. female here [...] GI bleed. She was previously seen by [facility] cardiology. She was initially seen by Dr. [...] Neurological: General: No (more content not included)... [facility] 07-14-2023 Note Site well approximat ed and healing well No s/s of infection or hematoma, + ecchymosis noted [facility] 07-14-2023 Note -[id number] at [facility] 5 for age x2, gender, hypertension, CHF, on aspirin s/p watchmen Continue meds as prescribed [facility] 07-05-2023 Note DIRECTOR OF STATE-D IMPLANT PROCED URE NOTE DATE OF PROCEDURE: 07/05/2023 PERFORMING PHYSICIAN: Dr. Robert Madden DEVELOPMENTAL ELECTRONICS ASSEMBLER: TOÑA CONSENT: Patient LOCATION: [facility] PROCEDURE PERFORMED: 1. Implantation of Biventricular ICD ([employer]). 2. U/S venous access 3. Coronary [...] GI bleed. She was previously seen by [facility] cardiology. She was initially seen by Dr. [...] occasions using seldinger technique using a 5 Sami micropunture needle and exchanged for 0.034 wire. I decided to proceed with opening of the pocket. Localinfiltration of 1% Lidocaine was performed and an incision was created in the left upper chest. Dissection was then performed using cautery down. An active fixation [employer] ICD lead was then delivered through the 8F sheath to the right ventricle. After confirmation of lead position on orthogonal views (BECK and KAZAKH) to confirm position in the septal aspect, the screw was activated. After confirmation of good sensing parameters, injury pattern and pacing thresholds, 10V pacing was done and no diaphragmatic stimulation was noted. It was then secured in the pocket using three 1-0 Silk sutures. I then proceeded to perform the LV lead placement. A [place] sheath was advanced into the RV over [...] The leads were then attached to a COM DEV DIRECTOR OF STATE-D device with atrial ort capped and the [...] Patient was hemodynamically (more content not included)... [facility] 07-05-2023 Note Patient: Saul mcghee Procedure Information Date/Time: 07/05/23 1400 Procedure: Implant ICD - biventricular Location: [facility] ANALYSIS SPECIALIST 1 EP / [facility] VASCULAR LAB (Cath) Providers: Robert Madden MD Clinical information reviewed: Allergies Meds Physical Exam Airway Mallampati: II TM distance: >3 FB Neck ROM: full Cardiovascular Dental Pulmonary Abdominal Anesthesia Plan ASA 2 CSE Anesthetic plan and risks discussed with patient. Use of blood products discussed with patient who. Additional Equipment Requests [facility] 05-18-2023 Note [place] Electrophysiology Consult Note Reason for visit: Afib [...] GI bleed. She was previously seen by [facility] cardiology. She was initially seen by Dr. [...] Appearance: well-nourished, we (more content not included)... [facility] 03-23-2023 Note [place] Electrophysiology Consult Note Reason for visit: Afib HPI: Saul Gutiérrez is a 77 y.o. year old with past medical history of HFrEF with EF of 35% as per an echocardiogram in May 2022, nonobstructive coronary artery disease as per cath on 01/05/2023 who previously had undergone a Watchman procedure in 2019 due to GI bleed. She was previously seen by [facility] cardiology. She was initially seen by Dr. [...] no cyanosis, no (more content not included)... [facility] 02-04-2023 Note -s/p watchmen 2019[facility] -[id number] at [facility] 5 for age x2, gender, hypertension, [...] Watchman due to unclear risk of stroke [facility] 02-04-2023 Note -will need BiV ICD if ICD indica halie [facility] 02-04-2023 Note -stable, ct medications [facility] 02-04-2023 Note -NYHA II, NICM, HFrE F EF 35%, pending MUGA scan in 2-3 months to reassess EF for ICD -nonobstruc cors 12/2022 -ct gdmt -she appears euvolemic and compensated [facility] 02-04-2023 Note -adv compliance with cpap [facility] 01-25-2023 Note [place] Electrophysiology Consult Note [...] was following [facility] and self-referred to [facility] cardiology for second opinion. She recently underwent [...] rash, no ulcer, (more content not included)... [facility] 01-25-2023 Note Patient here to disc uss possible afib ablation per Dr. Jefferson. She will be scheduled for muga scan in Mar 2023. Review of Systems Cardiovascular: Positive for dyspnea on exertion. All other systems reviewed and are negative. [facility] 01-18-2023 Note [facility] Cardiology Clinic Note Chief Complaint: Patient [...] TTE 06/08/22 Nonischemic cardiomyopathy Normal coronaries by [facility] 2013 and 2022 Mitral regurgitation, moderate by TTE 05/2022 Persistent atrial fibrillation s/p repeat ca (more content not included)... [facility] 01-05-2023 Note Cardiovascular Labor atory [...] left radial artery was obtained. A 6 Sami glide sheath was inserted without difficulty. Bilateral [...] fraction, heart failure with reduced ejection fraction [facility] 11-23-2022 Note [facility] Cardiology Clinic Note Chief Complaint: Complains of shortness of breath, worse with exertion and heart fluttering at rest. HX of afib. HPI: Saul Gutiérrez is a 77 y.o. female presents for a second opinion. Currently seeing cardiology in [place], [facility] she sees someone different at every visit [...] judgement. Investigations Echo complete W/O contrast Order: [id number] Narrative Left Ventricle: Systolic function is moderately [...] no pericardial effus (more content not included)... [facility] 07-23-2022 Note PAIN MANAGEMENT CONS [...] months' time or sooner if needed. [facility] 03-26-2022 Note CONSULTATION CONSULTATION DATE: 03/26/2022 This [...] agrees with the plan of care. [facility] 12-24-2021 Note CONSULTATION PROCEDURE DATE: 12/24/2021 PREOPERATIVE [...] the procedure well with no complications. [facility] 12-24-2021 Note CONSULTATION CONSULTATION DATE: 12/24/2021 HISTORY [...] three months' time, unless otherwise indicated. [facility] Evaluation note Diagnosis Essential hypertension- Primary Unspecified essential hypertension documented in this encounter [facility]ubble[facility] Media SystemInstructionsNot on filedocumented in this encounter [facility] [employer] Summary Purpose Family History No Family History Records FoundNo Family History Records FoundNo Family History Records Found Advance Directives No Advanced Directives Records FoundNo Advanced Directives Records FoundNo Advanced Directives Records Found Additional Source Comments INFORMATION SOURCE (unrecogn ized section and content) DATE CREATED AUTHOR 07/25/2020 [facility] DATE CREATED AUTHOR AUTHOR'S ORGANIZ ATION 10/12/2022 [facility] DATE CREATED AUTHOR AUTHOR'S ORGANIZ ATION 09/09/[address] [facility] Reason for Visit (unrecogniz ed section and content) Reason Comments Med Refill Care Teams (unrecognized sec tion and content) Dow[employer] Maker Relationship Specialty Start Date End Date Heaven Staley, VENEER SLICING MACHINE OPERATOR-BIOMEDICAL INSTRUMENT TECHNICIAN [address] [place] [id number] PCP - General Family Medicine 10/30/21 FOR [...] BE BASED ON THE PRIMARY CLINICAL RECORDS. [facility] [facility]. provides no warranty or guarantee of the accuracy or completeness of information in this document.
[2023-10-22 11:55] LABS: Basophils Absolute Auto 0.1 10^3/uL (0.0-0.1); Basophils Percent Auto 0.5 % (0.2-2.0); Eosinophils Absolute Auto 0.4 10^3/uL (0.0-0.7); Eosinophils Percent Auto 3.2 % (0.9-7.0); Hematocrit 38.5 % (36.0-48.0); Hemoglobin 12.1 g/dL (12.0-16.0); Immature Granulocytes Abs Auto 0.03 10^3/uL (0.00-0.03); Immature Granulocytes Pct Auto 0.3 % (0.0-0.5); Lymphocytes Absolute Auto 2.1 10^3/uL (1.2-3.8); Lymphocytes Percent Auto 18.9 % (20.5-60.0); Mean Corpuscular HGB Conc 31.4 g/dL (29.9-35.2); Mean Corpuscular Volume 98.7 fL (81.0-99.0); Mean Platelet Volume 10.6 fL (9.5-13.5); Monocytes Absolute Auto 0.6 10^3/uL (0.3-0.8); Neutrophils Percent Auto 72.1 % (43.0-75.0); Platelet Count 240 10^3/uL (150-450); Red Cell Distribution Width 14.2 % (11.0-15.0)
[2023-10-22 14:09] LABS: Anion Gap 16.3; Calcium 9.5 mg/dL (8.5-10.1); Carbon Dioxide 22.2 mmol/L (21.0-32.0); Chloride 107 mmol/L (98-107); Estimated GFR (African America 38 (>=60); Estimated GFR (Non-African Ame 31 (>=60); Glucose 82 mg/dL (74-106); Potassium 4.5 mmol/L (3.5-5.1); Sodium 141 mmol/L (136-145)
[2023-10-22 14:19] LABS: BUN Creatinine Ratio 31.3
== END 2023-10-22 11:35 | disposition home or self-care (01) ==
LOC: LAB 11:37
PROVIDERS: PCP Nurse Practitioner Family; Visit Provider Internal Medicine Cardiovascular Disease
DX: I48.0 Paroxysmal atrial fibrillation (principal)
CPT/HCPCS: 36415; 80048; 85025

== ENCOUNTER 2023-10-27 08:21 | Outpatient (OUT) | payer MEDICARE, SELFPAY ==
--- OUTSIDE RECORDS SUMMARY | 2023-10-27 08:36 | XMS_ITS | CCD ---
Author Organization [facility] Care Team Providers Care Silk Winding Machine Operator Name Role Phone JOHNSON ., DR JAYLON Ruelas Admitting Unavailable ORNELAS ., DR JAYLON Ruelas Attending [facility]available [facility] Care Unavailable ORNELAS ., DR JAYLON Ruelas Consulting Unavailable MICHELINE MOLINA Consulting Unavailable ORNELAS ., DR JAYLON Ruelas Admitting Unavailable ORNELAS ., DR JAYLON Ruelas Attending Unavailable [facility] Primary Care Unavailable RODRIGUEZ ., SABRINA Consulting Unavailable ORNELAS ., DR JAYLON Ruelas Admitting Unavailable ORNELAS ., DR JAYLON Ruelas Attending Unavailable [facility] Primary Care Unavailable RODRIGUEZ ., SABRINA Consulting Unavailable [facility] Primary Care Unavailable LAKSHMIPATHY ., NARENDRANATH Admitting Charity vailable LAKSHMIPATHY ., NARENDRANATH Attending Charity vailable LAKSHMIPATHY ., NARENDRANATH Consulting Charity vailable LAKSHMIPATHY ., NARENDRANATH Admitting Charity vailable LAKSHMIPATHY ., NARENDRANATH Attending Charity vailable [facility] Primary Care Unavailable LUÍS, HEAVEN Admitting Unavailable HEAVEN STALEY Attending Unavailable [facility] Primary Care Unavailable DR SHAR VALENZUELA Consulting Unavailable LUÍS, HEAVEN Consulting Unavailable [facility] Primary Care Unavailable DAREK ., KEILY Admitting Unavailable DAREK ., KEILY Attending Unavailable DAREK ., KEILY Consulting Unavailable EKLSIE DEL ANGEL Consulting Unavailable Heaven Steven Primary Care Provider ROBERT MADDEN Admitting Unavailable ROBERT MADDEN Attending Unavailable ADELAIDA RIZO Attending Unavailable ROBERT MADDEN Attending Unavailable ROBERT MADDEN Attending Unavailable ROBERT MADDEN Referring Unavailable EL[facility]WY, EHAB Attending Unavailable ROBERT MADDEN Referring Unavailable [facility] Referring Unavailable VIRGIL FOLEY Attending Unavailable [facility] Attending Unavailable ROBERT MADDEN Referring Unavailable [facility] Admitting Unavailable [facility] Attending Unavailable Allergies Allergy Classification Reported Allergen(s) Allergy Type Date of Onset Reaction(s) Facility (2 sources) Codeine; Translations: [CODEINE] Drug Allergy 06-06-2014 [facility] Repository (1 source) Codeine Drug Allergy 06-06-2014 [facility] (2 sources) Lisinopril; Translations: [LISINOPRIL] Drug Allergy 10-19-2014 [facility] Medications Current Medications Medication Drug Class(es) [...] 30 tablet 1 06/08/2023 Active lactobacillus acidophilus [id number] unt oral capsule (1 source) take 1 [...] Indications: Chronic systolic CHF (congestive heart failure) ([facility]) Take 1 tablet (25 mg total) by [...] 10-11-2020 Episodic Other aftercare (1 source) Other half-way (current) drug therapy; Translations: [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 THERAPY] Onset: 05-19-2022 Episodic Other [...] Value Interpretation Reference Range Facility Orders Onlyon 10-22-2023 Orders Only [id number] Saul Gutiérrez 1945 F Date Provider Department Center 10/22/2023 DEMOND RAMOS [facility] Family History Problem Relation Age of Onset Heart failure Father Family Status - Relation Status Age at Father Normal [facility] Orders Onlyon 08-27-2023 Orders Only [id number] Saul Gutiérrez 1945 F Date Provider Department Center 08/27/2023 LEATHA BAHENA [facility] Family History Problem Relation Age of Onset Heart failure Father Family Status - Relation Status Age at Father Normal [facility] Office Visiton 07-14-2023 Follow-up visit [id number] Saul Gutiérrez 1945 F Date Provider Department Center 07/14/2023 Jonna-ADELAIDA RIZO MAGNUS [place] Family History Problem Relation Age of Onset Heart failure Father Family Status - Relation Status Age at Father Level of Service:26837 [place] POSTOP FOLLOW UP VISIT RELATED TO ORIGINAL PX [facility] HPon 07-05-[address] [facility] Electrophysiology Consult Note Reason for visit: Afib 05/18/23 Patient here for follow up muga scan per Dr. Paniagua. She denies chest pain, SOB, palpitations, and [...] GI bleed. [facility]. [facility] [...] be scheduled for muga scan per Dr. Paniagua next month. Says after her evening meal [...] Appearance: well-nourished, we (more content not included)... [facility] NURSNOTEon 07-05-2023 NURSNOTE RN educated pt on d/ c instructions. RN encouraged pt to voice any questions or concerns. Pt verbalizes no questions or concerns at this time. Pt was wheeled off of unit with all of belongings. [facility] NURSNOTE CHG wipes and betadine nasal swabs completed. [facility] Orders Onlyon 07-05-2023 Orders Only [id number] Saul Gutiérrez 1945 F Date Provider Department Center 07/05/2023 ELENA ATWOOD [facility] Family History Problem Relation Age of Onset Heart failure Father Family Status - Relation Status Age at Father [facility] Office Visiton 05-18-2023 Follow-up visit [id number] Saul Gutiérrez 1945 F Date Provider Department Center 05/18/2023 ROBERT GEE BH [facility] Family History Problem Relation Age of Onset Heart failure Father Family Status - Relation Status Age at Father Level of Service:92797 [place] OFFICE/OUTPATIENT ESTABLISHED MOD MDM 30 MIN (GC) Normal [facility] Office Visiton 03-23-2023 Follow-up visit [id number] Saul Gutiérrez 1945 F Date Provider Department Center 03/23/2023 Antonietta-ROBERT MADDEN CARD [facility] Family History Problem Relation Age of Onset Heart failure Father Family Status - Relation Status Age at Father Level of Service:71566 [place] OFFICE/OUTPATIENT NEW MODERATE MDM 45-59 MINUTES Normal [facility] Office Visiton 01-25-2023 Follow-up visit [id number] Saul Gutiérrez 1945 Provider Department Center 01/25/2023 VIRGIL RODNEY [facility] Family History Problem Relation Age of Onset Heart failure Father Family Status - Relation Status Age at Father Level of Service:19424 [place] OFFICE/OUTPATIENT ESTABLISHED MOD MDM 30-39 MIN Normal [facility] Office Visiton 01-18-2023 Follow-up visit [id number] Saul Gutiérrez 1945 Provider Department Center 01/18/2023 MATT BARRERA [facility] Family History Problem Relation Age of Onset Heart failure Father Family Status - Relation Status Age at Father Level of Service:24558 [place] OFFICE/OUTPATIENT ESTABLISHED MOD MDM 30-39 MIN Normal [facility] Marlene 01-05-2023 ANES - Attestation signed by Matt Paniagua MD at 01/05/2023 9:33 AM Matt Paniagua MD, MPH, FACC, [facility], [facility] Interventional Cardiology Pager Email: [email or web address] Patient: Saul Gutiérrez Procedure Information Date/Time: 01/05/23929 Procedure: Coronary angiography (Left) Location: [facility] DOCUMENT CLERK 3 / [facility] (Cath) Providers: Matt Paniagua MD Clinical information reviewed: Tobacco Allergies Meds [...] discussed with attending. Additional Equipment Requests Normal [facility] CBCon 01-05-2023 Erythrocyte distribution width (RBC) [Ratio] 14.8 % Normal 11.5-15.0 [facility] Comment on above: Performed By: #### L [id number] ####[facility] ([facility])[address] [place] [address] ERYTHROCYTE MEAN CORPUSCULAR HEMOGLOBIN CONCENTRATION (G/DL) BY AUTOMATED 31.4 g/dL Low 32.0-35.0 [facility] Comment on above: Performed By: #### L [id number] ####[facility] ([facility])[address] [place] [address] Hematocrit (Bld) [Volume fraction] 42.0 % Normal 36.0-48.0 [facility] Comment on above: Performed By: #### L [id number] ####[facility] ([facility])[address] [place] [address] Hemoglobin (Bld) [Mass/Vol] 13.2 g/dL Normal 12.0-15.0 [facility] Comment on above: Performed By: #### L [id number] ####[facility] ([facility])[address] [place] [address] MCH (RBC) [Entitic mass] 30.3 pg Normal 27.0-33.0 [facility] Comment on above: Performed By: #### L [id number] ####[facility] ([facility])[address] [place] [address] MCV (RBC) [Entitic vol] 96.3 fL Normal 82.0-98.0 [facility] Comment on above: Performed By: #### L [id number] ####[facility] ([facility])[address] [place] [address] PLATELETS (10*3/UL) IN BLOOD AUTOMATED COUNT 231 10*3/uL Normal 150-400 [facility] Comment on above: Performed By: #### L [id number] ####[facility] ([facility])[address] [place] [address] RBC (Bld) [#/Vol] 4.36 10*6/uL Normal 3.80-5.00 [facility] Comment on above: Performed By: #### L [id number] ####[facility] ([facility])[address], [place] [address] WBC (Bld) [#/Vol] 8.83 10*3/uL Normal 4.00-10.60 [facility] Comment on above: Performed By: #### L [id number] ####[facility] ([facility])[address] [place] [address] [facility] 01-05-2023 - Attestation signed by Matt Paniagua MD at 01/05/2023 9:33 AM By using [...] an additional personal documentation from me. Matt Paniagua MD, MPH, [facility], [facility], [facility] Interventional Cardiology Pager Email: [email or web address] History Of Present Illness Saul Gutiérrez is a 77 y.o. female with history of Afib, CKD III, nonischemic cardiomyopathy, with new drop of EF from 40-45% to 35% presenting for coronary angiography. Patient was evaluated in office in October 2022 for second opinion. She was referred for stress test which was reportedly positive (done in [facility]). Patient reports exertional shortness of breath and [...] SpO2 100 %. Relevant Results HB 13.2 Sanitarian Inspector 1.32 Assessment/Plan Principal Problem: Abnormal cardiovascular stress test 1- Abnormal Stress test 2- HFrEF with new reduction of EF (40-45% down to 35%) 3- History of NICM 4- Normal coronary angio in 2013 5- Exertional Dyspnea Plan to proceed with coronary angiography today. [facility] NURSNOTEon 01-05-2023 NURSNOTE RN educated pt on d/ c instructions. RN encouraged pt to voice any questions or concerns. Pt verbalizes no questions or concerns at this time. Pt was wheeled off of unit with all of belongings. [facility] Orders Onlyon 12-18-2022 Orders Only [id number] Sual Gutiérrez 1945 Provider Department Center 12/18/2022 928-CARIDAD LOVE MAGNUS [facility] Family History Problem Relation Age of Onset Heart failure Father Family Status - Relation Status Age at Father [facility] Office Visiton 11-23-2022 Follow-up visit [id number] Saul Gutiérrez Barry 1945 F Provider Department Center 11/23/2022 271-MATT PANIAGUA [facility] Family History Problem Relation Age of Onset Heart failure Father Family Status - Relation Status Age at Father Level of Service:97080 [place] OFFICE/OUTPATIENT NEW HIGH MDM 60-74 MINUTES [facility] INSULINon 09-23-2022 Insulin 7.9 uIU/mL Normal 2.6-24.9 [facility] Comment on above: Performed By: #### I NSULIN ####[facility] [address] [place] [address]Dr. Ravin Dior CBC AUTO DIFFon 09-22-2022 BASO # 0.0 103/ul Normal 0.0-0.1 [facility] Comment on above: Performed By: #### C BC ####[facility] [address] [place] [address]Dr. Ravin Dior Basophils/100 WBC (Bld) 0.4 % Normal 0.2-2.0 [facility] Comment on above: Performed By: #### C BC ####[facility] [address] [place] [id number]. Ravin Dior EO # 0.6 103/ul Normal 0.0-0.7 [facility] Comment on above: Performed By: #### C BC ####[facility] [address] [place] [address]Dr. Ravin Dior Eosinophils/100 WBC (Bld) 6.6 % Normal 0.9-7.0 [facility] Comment on above: Performed By: #### C BC ####[facility] [address] [place] [address]Dr. Ravin Dior Erythrocyte distribution width (RBC) [Ratio] 16.2 % Critically high 11.0-15.0 [facility] Comment on above: Performed By: #### C BC ####[facility] [address] [place], [place] [address]Dr. Ravin Dior Hematocrit (Bld) [Volume fraction] 43.3 % Normal 36.0-48.0 [facility] Comment on above: Performed By: #### C BC ####[facility] [address] [place], [place] [address]Dr. Ravin Dior Hemoglobin (Bld) [Mass/Vol] 13.4 g/dL Normal 12.0-16.0 [facility] Comment on above: Performed By: #### C BC ####[facility] [address] [place], [place] [address]Dr. Ravin Dior IG # 0.05 10e3/ul Critically high 0.00-0.03 [facility] Comment on above: Performed By: #### C BC ####[facility] [address] [place], [place] [address]Dr. Ravin Dior IG % 0.5 % Normal 0.0-0.5 [facility] Comment on above: Performed By: #### C BC ####[facility] [address] [place], [place] [address]Dr. Novalilliana Dior LYMPH # 2.1 103/ul Normal 1.2-3.8 [facility] Comment on above: Performed By: #### C BC ####[facility] [address] [place] [id number]. Ravin Dior Lymphocytes/100 WBC (Bld) 23.1 % Normal 20.5-60.0 [facility] Comment on above: Performed By: #### C BC ####[facility] [address] [place] [id number]. Ravin Dior MANUAL DIFF REQ NO Normal [facility] Comment on above: Performed By: #### C BC ####[facility] [address] [place] [id number]. Ravin Dior MCH (RBC) [Entitic mass] 29.5 pg Normal 26.7-34.0 [facility] Comment on above: Performed By: #### C BC ####[facility] [address] [place] [address]Dr. Ravin Dior MCHC (RBC) [Mass/Vol] 30.9 g/dL Normal 29.9-35.2 [facility] Comment on above: Performed By: #### C BC ####[facility] [address] [place] [phone]. Ravin Dior MCV (RBC) [Entitic vol] 95.4 fL Normal 81.0-99.0 [facility] Comment on above: Performed By: #### C BC ####[facility] [address] [place], [place] [address]Dr. Ravin Dior MONO # 0.5 103/ul Normal 0.3-0.8 [facility] Comment on above: Performed By: #### C BC ####[facility] [address] [place] [id number]. Ravin Dior Monocytes/100 WBC (Bld) 5.8 % Normal 1.7-12.0 [facility] Comment on above: Performed By: #### C BC ####[facility] [address] [place], [place] [address]Dr. Ravin Dior NEUT # 5.8 103/ul Normal 1.4-6.5 [facility] Comment on above: Performed By: #### C BC ####[facility] [address] [place] [id number]. Ravin Dior Neutrophils/100 WBC (Bld) 63.6 % Normal 43.0-75.0 [facility] Comment on above: Performed By: #### C BC ####[facility] [address] [place] [phone]. Ravin Dior Platelet mean volume (Bld) [Entitic vol] 10.7 fL Normal 9.5-13.5 [facility] Comment on above: Performed By: #### C BC ####[facility] [address] [place] [id number]. Ravin Dior PLT 223 103/ul Normal 150-450 [facility] Comment on above: Performed By: #### C BC ####[facility] [address] [place] [id number]. Ravin Dior RBC 4.54 106/ul Normal 4.20-5.40 [facility] Comment on above: Performed By: #### C BC ####[facility] [address] [place] [id number]. Ravin Dior WBC 9.2 103/ul Normal 4.0-11.0 [facility] Comment on above: Performed By: #### C BC ####[facility] [address] [place] [phone]. Ravin Dior FREE THYROXINE INDEX T7on FTI 2.44 Normal 1.30-4.50 [facility] Comment on above: Performed By: #### C MP, T7, TSH, LIPID #### [facility] [address] [place] [address] [address] Ravin Dior T3U 33.0 % Normal 30.0-39.0 [facility] Comment on above: Performed By: #### C MP, T7, TSH, LIPID #### [facility] [address] [place] [address] [address] Ravin Dior T4 [Mass/Vol] 7.40 ug/dL Normal 4.80-13.90 [facility] Comment on above: Performed By: #### C MP, T7, TSH, LIPID #### [facility] [address] [place], [place] [address] Dr. Ravin Dior GLYCOHEMOGLOBIN A1Con 2022 ADA RECOMMENDATION SEE BELOW Normal [facility] Comment on above: Result Comment: ADA RECOMMENDED LIMIT 4.0 - 6.0 ADA THERAPEUTIC TARGET < 7.0 ACTION SUGGESTED > 7.0 Performed By: #### A 1C ####[facility] [address] [place] [address]Dr. Ravin Dior Glucose [Mass/Vol] 105 mg/dL Normal [facility] Comment on above: Performed By: #### A 1C ####[facility] [address] [place] [address]DrViky Dior HbA1c (Bld) [Mass fraction] 5.3 % Normal 4.5-6.2 [facility] Comment on above: Performed By: #### A 1C ####[facility] [address] [place] [address]DrViky Dior IRONon 09-22-2022 Iron [Mass/Vol] 81.0 ug/dL Normal 50.0-170.0 [facility] Comment on above: Performed By: #### I SEAMUS ####[facility] [address] [place] [address]DrViky Dior LIPID PROFILEon 09-22-2022 CHOL-HDL RATIO NORM SEE BELOW Normal [facility] Comment on above: Result Comment: 3.3 - 4.4 LOW RISK 4.4 - 7.1 AVERAGE RISK 7.1 - 11.0 MODERATE RISK >11.0 HIGH RISK Performed By: #### C MP, T7, TSH, LIPID ####[facility] [address] [place] [address]DrViky Dior Cholesterol [Mass/Vol] 159 mg/dL Normal <=200 [facility] Comment on above: Performed By: #### C MP, T7, TSH, LIPID ####[facility] [address] [place] [address]DrViky Dior Cholesterol in HDL [Mass/Vol] 47 mg/dL Normal 40-60 [facility] Comment on above: Performed By: #### C MP, T7, TSH, LIPID ####[facility] [address] [place] [phone]. Ravin Dior Cholesterol in LDL [Mass/Vol] 96.4 mg/dL Normal [facility] Comment on above: Performed By: #### C MP, T7, TSH, LIPID ####[facility] [address] [place] [phone]. Ravin Dior Cholesterol.total/Cho lesterol in HDL [Mass ratio] 3.4 {ratio} Normal [facility] Comment on above: Performed By: #### C MP, T7, TSH, LIPID ####[facility] [address] [place] [address]Dr. Ravin Dior HDL NORMAL > or = 60 mg/dl - LO W CARDIOVASCULAR RISK <40 mg/dl - HIGH CARDIOVASCULAR RISK Normal [facility] Comment on above: Performed By: #### C MP, T7, TSH, LIPID ####[facility] [address] [place] [address]Dr. Ravin Dior LDL CALC NORMAL SEE BELOW Normal [facility] Comment on above: Result Comment: <100 mg/dl OPTIMAL 100 - 129 mg/dl NEAR OR ABOVE OPTIMAL 130 - 159 mg/dl BORDERLINE HIGH 160 - 189 mg/dl HIGH >190 mg/dl VERY HIGH Performed By: #### C MP, T7, TSH, LIPID ####[facility] [address] [place] [address]Dr. Ravin Dior Triglyceride [Mass/Vol] 78 mg/dL Normal <=150 [facility] Comment on above: Performed By: #### C MP, T7, TSH, LIPID ####[facility] [address] [place] [address]Dr. Ravin Dior VLDL CALC 15.6 mg/dL Normal [facility] Comment on above: Performed By: #### C MP, T7, TSH, LIPID ####[facility] [address] [place] [phone]. Ravin Dior MG MAMM SCREEN 3D NIKOS CADon 09-22-2022 MG MAMM SCREEN 3D NIKOS CAD Patient: SAUL GUTIÉRREZ Exam Date: 09/22/2022 : 1945 Gender:F Ordering : HEAVEN STALEY [facility] Admission #: [id number] Family : Order #: [id number] CLICK HERE TO VIEW EXAM RADIOLOGY REPORT [...] Treatments None Family Cancers None LOCATION: [facility] BREAST COMPOSITION: Almost entirely fatty. FINDINGS: [...] Valenzuela M.D. on 09/22/2022 at 17:02 Normal [facility] PROF 14(COMP METB)on 023 Albumin [Mass/Vol] 3.3 g/dL Critically low 3.4-5.0 Th [facility] Comment on above: Performed By: #### C MP, T7, TSH, LIPID #### [facility] [address], [place] [address] Dr. Ravin Dior Albumin/Globulin [Mass ratio] 0.7 {ratio} Normal [facility] Comment on above: Performed By: #### C MP, T7, TSH, LIPID #### [facility] [address] [place], [place] [address] Dr. Ravin Dior ALP [Catalytic activity/Vol] 207 U/L Critically high 46-116 [facility] Comment on above: Performed By: #### C MP, T7, TSH, LIPID #### [facility] [address] [place] [address] [address] Ravin Dior ALT [Catalytic activity/Vol] 47 U/L Normal 14-59 [facility] Comment on above: Performed By: #### C MP, T7, TSH, LIPID #### [facility] [address] [place] [address] [address] Ravin Dior Anion gap [Moles/Vol] 11.5 mmol/L Normal Th [facility] Comment on above: Performed By: #### C MP, T7, TSH, LIPID #### [facility] [address] [place] [address] Dr. Ravin Dior AST [Catalytic activity/Vol] 35 U/L Normal 15-37 [facility] Comment on above: Performed By: #### C MP, T7, TSH, LIPID #### [facility] [address] [place] [address] Dr. Ravin Dior Bilirubin [Mass/Vol] 0.6 mg/dL Normal 0.2-1.0 [facility] Comment on above: Performed By: #### C MP, T7, TSH, LIPID #### [facility] [address] [place] [address] Dr. Ravin Dior Calcium [Mass/Vol] 9.2 mg/dL Normal 8.5-10.1 [facility] Comment on above: Performed By: #### C MP, T7, TSH, LIPID #### [facility] [address] [place] [address] Dr. Ravin Dior Chloride [Moles/Vol] 109 mmol/L Critically high 98-107 [facility] Comment on above: Performed By: #### C MP, T7, TSH, LIPID #### [facility] [address] [place] [address] Dr. Ravin Dior CO2 [Moles/Vol] 27.7 mmol/L Normal 21.0-32.0 [facility] Comment on above: Performed By: #### C MP, T7, TSH, LIPID #### [facility] [address] [place], [place] [id number] Dr. Ravin Dior Creatinine [Mass/Vol] 0.94 mg/dL Normal 0.55-1.02 [facility] Comment on above: Performed By: #### C MP, T7, TSH, LIPID #### [facility] [address] [place] [address] Dr. Ravin Dior EGFR-AF SINGAPOREAN >60 Normal >=60 [facility] Comment on above: Performed By: #### C MP, T7, TSH, LIPID #### [facility] [address] [place] [address] Dr. Ravin Dior EGFR-NON AF SINGAPOREAN 58 mL/min/1.73m2 Critically low >=60 [facility] Comment on above: Performed By: #### C MP, T7, TSH, LIPID #### [facility] [address] [place] [address] Dr. Ravin Dior Globulin (S) [Mass/Vol] 4.7 g/dL Normal [facility] Comment on above: Performed By: #### C MP, T7, TSH, LIPID #### [facility] [address] [place] [address] Dr. Ravin Dior Glucose [Mass/Vol] 95 mg/dL Normal 74-106 [facility] Comment on above: Performed By: #### C MP, T7, TSH, LIPID #### [facility] [address] [place] [address] Dr. Ravin Dior Potassium [Moles/Vol] 4.2 mmol/L Normal 3.5-5.1 [facility] Comment on above: Performed By: #### C MP, T7, TSH, LIPID #### [facility] [address] [place] [address] Dr. Ravin Dior Protein [Mass/Vol] 8.0 g/dL Normal 6.4-8.2 [facility] Comment on above: Performed By: #### C MP, T7, TSH, LIPID #### [facility] [address] [place] [address] Dr. Ravin Dior Sodium [Moles/Vol] 144 mmol/L Normal 136-145 [facility] Comment on above: Performed By: #### C MP, T7, TSH, LIPID #### [facility] [address] [address] [address] Ravin Dior Urea nitrogen [Mass/Vol] 21.0 mg/dL Critically high 7.0-18.0 [facility] Comment on above: Performed By: #### C MP, T7, TSH, LIPID #### [facility] [address] [address] [address] Ravin Dior Urea nitrogen/Creatinine [Mass ratio] 22.3 mg/mg Normal [facility] Comment on above: Performed By: #### C MP, T7, TSH, LIPID #### [facility] [address] [address] [address] Ravin Dior TSHon 09-22-2022 TSH 2.085 uIU/mL Normal 0.358-3.740 [facility] Comment on above: Performed By: #### C MP, T7, TSH, LIPID #### [facility] [address] [address] [address] ABD/PELVIS WO CONon [...] was used, including Automated Exposure Control. FINDINGS: Doughnut Fryer: No pertinent findings, which are not already [...] the largest most superior hernia. Normal [facility] CBC AUTO DIFFon 05-17-2022 BASO # 0.0 103/ul Normal 0.0-0.1 [facility] Comment on above: Performed By: #### C BC ####[facility] [address] [address]Dr. Ravin Dior Basophils/100 WBC (Bld) 0.2 % Normal 0.2-2.0 [facility] Comment on above: Performed By: #### C BC ####[facility] [address] [id number] Dior EO # 0.1 103/ul Normal 0.0-0.7 [facility] Comment on above: Performed By: #### C BC ####[facility] [address] [address]Dr. Ravin Dior Eosinophils/100 WBC (Bld) 1.4 % Normal 0.9-7.0 [facility] Comment on above: Performed By: #### C BC ####[facility] [address] [address]Dr. Ravin Dior Erythrocyte distribution width (RBC) [Ratio] 13.7 % Normal 11.0-15.0 [facility] Comment on above: Performed By: #### C BC ####[facility] [address] [place], [place] [address]Dr. Ravin Dior Hematocrit (Bld) [Volume fraction] 44.4 % Normal 36.0-48.0 [facility] Comment on above: Performed By: #### C BC ####[facility] [address] [place], [place] [address]Dr. Ravin Dior Hemoglobin (Bld) [Mass/Vol] 14.7 g/dL Normal 12.0-16.0 [facility] Comment on above: Performed By: #### C BC ####[facility] [address] [place], [place] [address]Dr. Ravin Dior IG # 0.05 10e3/ul Critically high 0.00-0.03 [facility] Comment on above: Performed By: #### C BC ####[facility] [address] [place], [place] [address]Dr. Ravin Dior IG % 0.5 % Normal 0.0-0.5 [facility] Comment on above: Performed By: #### C BC ####[facility] [address] [place], [place] [address]Dr. Ravin Dior LYMPH # 1.7 103/ul Normal 1.2-3.8 [facility] Comment on above: Performed By: #### C BC ####[facility] [address] [place], [place] [address]Dr. Ravin Dior Lymphocytes/100 WBC (Bld) 17.1 % Critically low 20.5-60.0 [facility] Comment on above: Performed By: #### C BC ####[facility] [address] [address]Dr. Ravin Ovi MANUAL DIFF REQ NO Normal [facility] Comment on above: Performed By: #### C BC ####[facility] [address] [address]Dr. Ravin Dior MCH (RBC) [Entitic mass] 30.7 pg Normal 26.7-34.0 [facility] Comment on above: Performed By: #### C BC ####[facility] [address] [address]Dr. Ravin Ovi MCHC (RBC) [Mass/Vol] 33.1 g/dL Normal 29.9-35.2 [facility] Comment on above: Performed By: #### C BC ####[facility] [address] [address]Dr. Ravin Ovi MCV (RBC) [Entitic vol] 92.7 fL Normal 81.0-99.0 [facility] Comment on above: Performed By: #### C BC ####[facility] [address] [place], [place] [address]Dr. Ravin Ovi MONO # 0.6 103/ul Normal 0.3-0.8 [facility] Comment on above: Performed By: #### C BC ####[facility] [address] [place], [place] [address]Dr. Novalilliana Dior Monocytes/100 WBC (Bld) 5.7 % Normal 1.7-12.0 [facility] Comment on above: Performed By: #### C BC ####[facility] [address] [address]Dr. Novalilliana Ovi NEUT # 7.7 103/ul Critically high 1.4-6.5 [facility] Comment on above: Performed By: #### C BC ####[facility] [address] [place], [place] [address]Dr. Ravin Dior Neutrophils/100 WBC (Bld) 75.1 % Critically high 43.0-75.0 [facility] Comment on above: Performed By: #### C BC ####[facility] [address] [address]Dr. Ravin Dior Platelet mean volume (Bld) [Entitic vol] 10.4 fL Normal 9.5-13.5 [facility] Comment on above: Performed By: #### C BC ####[facility] [address] [address]Dr. Ravin Dior PLT 294 103/ul Normal 150-450 [facility] Comment on above: Performed By: #### C BC ####[facility] [address] [address]Dr. Ravin Dior RBC 4.79 106/ul Normal 4.20-5.40 [facility] Comment on above: Performed By: #### C BC ####[facility] [address] [place], [place] [address]Dr. Ravin Dior WBC 10.2 103/ul Normal 4.0-11.0 [facility] Comment on above: Performed By: #### C BC ####[facility] [address] [place], [place] [address]DrViky Dior ER URINE PROFILEon 2 Bilirubin Ql (U) Negative Normal NEGATIVE [facility] Comment on above: Performed By: #### DENY KAUFFMANRO #### [facility] [address] [place] [address] Dr. Ravin Dior Clarity (U) CLEAR Normal CLEAR [facility] Comment on above: Performed By: #### DENY KAUFFMANRO #### [facility] [address] [place] [address] Dr. Ravin Dior Color (U) LT. YELLOW Normal YELLOW [facility] Comment on above: Performed By: #### DENY KAUFFMANRO #### [facility] [address] [place] [address] Dr. Ravin PARKER A micrscopic examination will be performed if indicated. Normal [facility] Comment on above: Performed By: #### DENY KAUFFMANRO #### [facility] [address] [place] [address] Dr. Ravin Dior Glucose Ql (U) Negative Normal NEGATIVE [facility] Comment on above: Performed By: #### Tammy SOUTH UMICRO #### [facility] [address] [place] [address] Dr. Ravin Dior Hemoglobin Ql (U) Negative Normal NEGATIVE [facility] Comment on above: Performed By: #### Tammy SOUTH UMICRO #### [facility] [address] [address] [address] Ravin Dior Ketones Ql (U) TRACE Abnormal NEGATIVE [facility] Comment on above: Performed By: #### Tammy SOUTH UMICRO #### [facility] [address] [place] [address] Dr. Ravin Dior LEUKOCYTES SMALL Abnormal NEGATIVE [facility] Comment on above: Performed By: #### Tammy SOUTH UMICRO #### [facility] [address] [place] [address] Dr. aRvin Dior Nitrite Ql (U) Negative Normal NEGATIVE [facility] Comment on above: Performed By: #### Tammy SOUTH UMICRO #### [facility] [address] [place] [address] Dr. Ravin Dior pH (U) 6.0 [pH] Normal 5-9 [facility] Comment on above: Performed By: #### Tammy SOUTH UMICRO #### [facility] [address] [place] [address] Dr. Ravin Dior SPEC GRAVITY 1.010 Normal 1.005-<=1.025 [facility] Comment on above: Performed By: #### Tammy SOUTH UMICRO #### [facility] [address] [place] [address] Dr. Ravin Dior UA PROTEIN Negative Normal NEGATIVE/ TRACE [facility] Comment on above: Performed By: #### Tammy SOUTH UMICRO #### [facility] [address] [place] [address] Dr. Ravin Dior UR MICRO IND INDICATED Normal [facility] Comment on above: Performed By: #### Tammy SOUTH UMICRO #### [facility] [address] [place] [address] Dr. Ravin Dior Urobilinogen Qn (U) 0.2 {Chandler'U}/dL Normal 0.2 - 1. 0 [facility] Comment on above: Performed By: #### E ALDA SOUTH #### [facility] [address] [address] [address] Ravin Dior LACTATE/LACTIC ACIDon 2021 Lactate [Moles/Vol] 1.3 mmol/L Normal 0.4-1.9 [facility] Comment on above: Performed By: #### L ACT ####[facility] [address] [address]Dr. Ravin Dior LIPASEon 05-17-2022 Lipase [Catalytic activity/Vol] 63.0 U/L Critically low 73.0-393.0 [facility] Comment on above: Performed By: #### C MP, LIPA #### [facility] [address] [place] [address] Dr. Ravin Dior PROF 14(COMP METB)on 022 Albumin [Mass/Vol] 3.4 g/dL Normal 3.4-5.0 [facility] Comment on above: Performed By: #### C MP, LIPA #### [facility] [address] [place] [address] Dr. Ravin Dior Albumin/Globulin [Mass ratio] 0.8 {ratio} Normal [facility] Comment on above: Performed By: #### C MP, LIPA #### [facility] [address] [address] [address] Ravin Dior ALP [Catalytic activity/Vol] 143 U/L Critically high 46-116 [facility] Comment on above: Performed By: #### C MP, LIPA #### [facility] [address] [place] [address] Dr. Ravin Dior ALT [Catalytic activity/Vol] 29 U/L Normal 14-59 [facility] Comment on above: Performed By: #### C MP, LIPA #### [facility] [address] [place] [address] Dr. Ravin Dior Anion gap [Moles/Vol] 7.6 mmol/L Normal [facility] Comment on above: Performed By: #### C MP, LIPA #### [facility] [address] [place] [address] Dr. Ravin Dior AST [Catalytic activity/Vol] 39 U/L Critically high 15-37 [facility] Comment on above: Performed By: #### C MP, LIPA #### [facility] [address] [place] [address] Dr. Ravin Dior Bilirubin [Mass/Vol] 0.7 mg/dL Normal 0.2-1.0 [facility] Comment on above: Performed By: #### C MP, LIPA #### [facility] [address] [place] [address] Dr. Ravin Dior Calcium [Mass/Vol] 9.1 mg/dL Normal 8.5-10.1 [facility] Comment on above: Performed By: #### C MP, LIPA #### [facility] [address] [place] [address] Dr. Ravin Dior Chloride [Moles/Vol] 102 mmol/L Normal 98-107 [facility] Comment on above: Performed By: #### C MP, LIPA #### [facility] [address] [place] [address] Dr. Ravin Dior CO2 [Moles/Vol] 31.1 mmol/L Normal 21.0-32.0 [facility] Comment on above: Performed By: #### C MP, LIPA #### [facility] [address] [place] [address] Dr. Ravin Dior Creatinine [Mass/Vol] 0.88 mg/dL Normal 0.55-1.02 [facility] Comment on above: Performed By: #### C MP, LIPA #### [facility] [address] [place] [address] Dr. Ravin Dior EGFR-AF SINGAPOREAN >60 Normal >=60 [facility] Comment on above: Performed By: #### C MP, LIPA #### [facility] [address] [place] [address] Dr. Ravin Dior EGFR-NON AF SINGAPOREAN >60 Normal >=60 [facility] Comment on above: Performed By: #### C MP, LIPA #### [facility] [address] [place] [address] Dr. Ravin Dior Globulin (S) [Mass/Vol] 4.5 g/dL Normal [facility] Comment on above: Performed By: #### C MP, LIPA #### [facility] [address] [place] [address] Dr. Ravin Dior Glucose [Mass/Vol] 100 mg/dL Normal 74-106 [facility] Comment on above: Performed By: #### C MP, LIPA #### [facility] [address] [place] [address] Dr. Ravin Dior Potassium [Moles/Vol] 3.7 mmol/L Normal 3.5-5.1 [facility] Comment on above: Performed By: #### C MP, LIPA #### [facility] [address] [place] [address] Dr. Ravin Dior Protein [Mass/Vol] 7.9 g/dL Normal 6.4-8.2 [facility] Comment on above: Performed By: #### C MP, LIPA #### [facility] [address] [place] [address] Dr. Ravin Dior Sodium [Moles/Vol] 137 mmol/L Normal 136-145 [facility] Comment on above: Performed By: #### C MP, LIPA #### [facility] [address] [place] [address] Dr. Ravin Dior Urea nitrogen [Mass/Vol] 12.0 mg/dL Normal 7.0-18.0 [facility] Comment on above: Performed By: #### C MP, LIPA #### [facility] [address] [place] [address] Dr. Ravin Dior Urea nitrogen/Creatinine [Mass ratio] 13.6 mg/mg Normal [facility] Comment on above: Performed By: #### C MP, LIPA #### [facility] [address] [place] [address] Dr. Ravin Dior URINE MICROSCOPIC ONLYon BACTERIA NONE SEEN Normal NONE SEEN [facility] Comment on above: Performed By: #### Tammy SOUTH UMICRO #### [facility] [address] [place] [address] Dr. Ravin Dior Bacteria identified Cx Nom (U) NOT INDICATED Normal [facility] Comment on above: Performed By: #### Tammy SOUTH UMICRO #### [facility] [address] [place] [address] Dr. Ravin Dior CAST NONE SEEN Normal NONE SEEN [facility] Comment on above: Performed By: #### Tammy SOUTH UMICRO #### [facility] [address] [place] [address] Dr. Ravin Dior Crystals LM Nom (Urine sed) NONE SEEN Normal NONE SEEN [facility] Comment on above: Performed By: #### Tammy SOUTH UMICRO #### [facility] [address] [place] [address] Dr. Ravin Dior Epithelial cells LM Ql (Urine sed) FEW Abnormal NONE SEEN /RARE [facility] Comment on above: Performed By: #### Tammy SOUTH UMICRO #### [facility] [address] [place] [address] Dr. Ravin Dior MUCOUS NONE SEEN Normal NONE SEEN [facility] Comment on above: Performed By: #### Tammy SOUTH UMICRO #### [facility] [address] [place] [address] Dr. Ravin Dior RBC NONE SEEN Abnormal 0-2 [facility] Comment on above: Performed By: #### Tammy SOUTH UMICRO #### [facility] [address] [place] [address] Dr. Ravin Dior WBC 0-2 Abnormal NONE SEEN [facility] Comment on above: Performed By: #### Tammy SOUTH UMICRO #### [facility] [address] [place] [address] Dr. Ravin Dior Ambulatory Clinical Summaryo n 07-24-2020 Ambulatory Clinical Summary {[id number] Normal [facility] Gastroenterology Office/Clin ic Noteon 07-24-2020 Gastroenterology Office/Clinic [...] course, # 28 cap(s), Refills(s) 0, [id number], 165, cm, 07/24/20 12:03:00 EST, Height/Length Dosing, 95.9, kg, 07/24/20 12:03:00 EST, Weight Dosing metronidazole, 250 mg = 1 tab(s), Oral, TID, X 7 day(s), # 21 tab(s), Refills(s) 0, [id number], 165, cm, 07/24/20 12:03:00 EST, Height/Length [...] water, # 160 cap(s), Refills(s) 1, Pharmacy: [facility]/pharmacy #[id number], 165, cm, 07/24/20 12:03:00 EST, Height/Length Dosing, 95.9, kg, 07/24/20 12:03:... Orders: pantoprazole, 40 mg = 2 tab(s), Oral, Daily, X 90 day(s), # 180 tab(s), Refills(s) 3, [id number], 165, cm, 07/24/20 12:03:00 EST, Height/Length Dosing, 95.9, kg, 07/24/20 12:03:00 EST, Weight Dosing Follow-up With When Contact Information Isabelle Ramirez MD In 12 months [address] [place] [address]- Additional Instructions: Problem List/Past Medical [...] 12/16/2018 Exercise - Occasional exercise, 12/16/2018 Other Sqfxwnoh-0-2 cups blair;y, 12/16/2018 Substance Abuse - Denies Substance Abuse, 12/16/2018 Tobacco Never (less than 100 in lifetime) Tobacco Use:., 07/24/2020 Never (less than 100 in lifetime) Tobacco Use:. Never Smokeless Tobacco Use:., 02/01/2019 [facility] Comment on above: Result Comment: Elec tronically Signed By: Taylor Mccauley MD, Isabelle\.br\Date and Time Signed: 07/24/20 13:13 EST Auth for Release of Medical Recordson 02-09-2020 Auth for Release of Medical Records [id number]:[id number] [facility] Patient Letter FTon 2019 Patient Letter [facility] January 24, 2020 SAUL GUTIÉRREZ [address] [place] [address] SAUL GUTIÉRREZ 1945 Dear Saul, This is a reminder that you are due for an appointment with Dr. Garland or Dr. Mccauley. Please call [facility] at [phone] to schedule an appointment at your earliest convenience. 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 Phone: [facility] Comment on above: Med Refill Start: 05-18-2023 End: 05-18-2023 ambulatory [facility] Start: 03-23-2023 End: 03-26-2023 ambulatory [facility] Start: 01-25-2023 End: 01-25-2023 ambulatory [facility] Start: 01-18-2023 End: 01-18-2023 ambulatory [facility] Start: 01-05-2023 End: 01-05-2023 ambulatory [facility] Start: 11-23-2022 End: 11-23-2022 ambulatory [facility] Start: 09-22-2022 End: 09-23-2022 ambulatory HEAVEN STALEY Facility:H1 Start: 07-23-2022 End: 07-24-2022 ambulatory HEAVEN STALEY Facility:[facility]1 Start: 05-17-2022 End: 05-17-2022 ambulatory HEAVEN STALEY Facility:[facility]1 Start: 03-26-2022 End: 03-27-[address] JAYLON ORNELAS . Facility:[facility] Start: 12-24-2021 End: 12-25-[address] JAYLON ORNELAS . Facility:[facility] Start: 11-04-2021 End: 11-04-[address] JAYLON ORNELAS . Facility: Plan of Treatment Date Care Activity Detail Author Start: 08-25-2023 Adult BMI Screening [facility] Start: 08-25-2023 Tobacco Screening Tobacco Screening [facility] Start: 01-29-2023 COVID-19 Vaccine ( season) COVID-19 Vaccine ( season) [facility] Start: 01-29-2023 Influenza vaccination Influenza Vacc ine [facility] [facility] Start: 11-03-2022 ambulatory Ambulatory Facility:H 1 Start: 2010 Fall Risk Screening Fall Risk Screen ing [facility] [employer] [facility] Start: 1995 Administration of varicella zoster vaccine Zoster (Shingles) Vaccine (1 of 2) [facility] Start: 1964 DTaP,Tdap and Td Vac cines (1 - Tdap) DTaP,Tdap and Td Vaccines (1 - Tdap) [facility] Start: 1963 Adult BMI Follow Up Plan Adult BMI Follow Up Plan [facility] Start: 1957 Depression Screening [facility]ing [facility] Start: 1945 Medicare Annual Well ness Visit Medicare Annual Wellness Visit [facility] End: 06-08-2024 Basic metabolic 2000 panel - Serum or Plasma Basic Metabolic Panel Lab Routine Essential hypertension 1 Occurrences starting 06/08/2023 until 06/08/2024 [facility]: Comment on above: 1 Occurrences starti ng 06/08/2023 until 06/08/2024 Immunizations Immunization Date Immunization Notes Care Provider Tutu rehman 05-08-2021 influenza virus vaccine, unspecified formulation Mac Erwin APRN-ROAD TRAIN DRIVER Work Phone: [facility] Payers Date Payer Category Payer Medicare HUMANA MEDICARE [place] [id number] 2013-Present [phone] [address] [place] [id number] 1959 Medicare [id number] 1945 Unknown [id number] 1945 Unknown [id number] 1945 Unknown [id number] 1945 Unknown [id number] 1945 Unknown [id number] 1945 Unknown [id number] 1945 Unknown [id number] Social History Date Type Detail Facility Start: 05-26-2022 Tobacco smoking stat [facility] Never smoked tobacco [facility] Start: 05-26-2022 Tobacco use and exposure Smoke less tobacco non-user [facility] Start: 08-24-2022 Alcohol intake 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) [facility] Start: 07-04-2020 End: 08-24-2022 History of Social function [facility] Start: 07-04-2020 End: 08-24-2022 Tobacco use panel [facility] Housing Instability Unknown [facility] Start: 1945 Sex Assigned At Not on file P [facility] Medical Equipment Procedure Code Equipment Code Equipment Origin al Text Equipment Identifier Dates Mesh [id number] 3d Rect Plstr Clgn Symbotex 2 Sd Comp Mfl Babsr Rpl [id number] - Sna - [id number] Start: 06-30-2022 Dev Clsr 30fr Watchman 30mm - [id number] Start: 10-28-2018 Clinical Notes 12-24-2021 to 08-27-2023 Note Date & Type Note Facility 08-27-2023 Note ca [facility] 07-14-2023 Note stable [facility] 07-14-2023 Note Patient here for wou nd check s/p BiV ICD implant on 07/05/[address] Madden. [facility] 07-14-2023 Note UTP CARDIOLOGY PROGR ESS NOTE HPI: Saul Gutiérrez is a 77 y.o. female here for 1 week wound/ incision evaluation Previous HPI 05/18/23 Patient here for follow up muga scan per Dr. Paniagua. She denies chest pain, SOB, palpitations, and [...] GI bleed. She was previously seen by [facility] cardiology. She was initially seen by Dr. [...] be scheduled for muga scan per Dr. Paniagua next month. Says after her evening meal [...] Neurological: General: No (more content not included)... [facility] 07-14-2023 Note Site well approximat ed and healing well No s/s of infection or hematoma, + ecchymosis noted [facility] 07-14-2023 Note -[id number] at [facility] 5 for age x2, gender, hypertension, CHF, on aspirin s/p watchmen Continue meds as prescribed [facility] 07-05-2023 Note DRILL RUNNER-D IMPLANT PROCED URE NOTE DATE OF PROCEDURE: 07/05/2023 PERFORMING PHYSICIAN: Dr. Robert Madden APPLICATION TECHNICIAN: TOÑA CONSENT: Patient LOCATION: [facility] PROCEDURE PERFORMED: 1. Implantation of Biventricular ICD ([employer]). 2. U/S venous access 3. Coronary [...] GI bleed. She was previously seen by [facility] cardiology. She was initially seen by Dr. [...] occasions using seldinger technique using a 5 [place] micropunture needle and exchanged for 0.034 wire. I decided to proceed with opening of the pocket. Localinfiltration of 1% Lidocaine was performed and an incision was created in the left upper chest. Dissection was then performed using cautery down. An active fixation [employer] ICD lead was then delivered through the 8F sheath to the right ventricle. After confirmation of lead position on orthogonal views (BECK and SENEGALESE) to confirm position in the septal aspect, the screw was activated. After confirmation of good sensing parameters, injury pattern and pacing thresholds, 10V pacing was done and no diaphragmatic stimulation was noted. It was then secured in the pocket using three 1-0 Silk sutures. I then proceeded to perform the LV lead placement. A Ida sheath was advanced into the RV over [...] The leads were then attached to a [employer] DRILL RUNNER-D device with atrial ort capped and the [...] Patient was hemodynamically (more content not included)... [facility] 07-05-2023 Note Patient: Saul mcghee Procedure Information Date/Time: 07/05/23 1400 Procedure: Implant ICD - biventricular Location: [facility] DOCUMENT CLERK 1 EP / [facility] VASCULAR [facility] (Cath) Providers: Robert Madden MD Clinical information reviewed: Allergies Meds Physical Exam Airway Mallampati: II TM distance: >3 FB Neck ROM: full Cardiovascular Dental Pulmonary Abdominal Anesthesia Plan ASA 2 CSE Anesthetic plan and risks discussed with patient. Use of blood products discussed with patient who. Additional Equipment Requests [facility] 05-18-2023 Note PA Electrophysiology Consult Note Reason for visit: Afib 05/18/23 Patient here for follow up muga scan per Dr. Paniagua. She denies chest pain, SOB, palpitations, and [...] GI bleed. She was previously seen by [facility] cardiology. She was initially seen by Dr. [...] be scheduled for muga scan per Dr. Paniagua next month. Says after her evening meal [...] Appearance: well-nourished, we (more content not included)... [facility] 03-23-2023 Note [facility] Electrophysiology Consult Note [...] GI bleed. [facility] She was initially seen by [...] be scheduled for muga scan per Dr. Paniagua next month. Says after her evening meal [...] no cyanosis, no (more content not included)... [facility] 02-04-2023 Note -s/p watchmen 2019[facility] -[id number] at [facility] for age x2, gender, hypertension, [...] Watchman due to unclear risk of stroke [facility] 02-04-2023 Note -will need BiV ICD if ICD indica halie [facility] 02-04-2023 Note -stable, ct medications [facility] 02-04-2023 Note -NYHA II, NICM, HFrE F EF 35%, pending MUGA scan in 2-3 months to reassess EF for ICD -nonobstruc cors 12/2022 -ct gdmt -she appears euvolemic and compensated [facility] 02-04-2023 Note -adv compliance with cpap Kush anthony [facility] 01-25-2023 Note [facility] Electrophysiology Consult Note Reason for visit: new to EP, afib HPI: Saul Gutiérrez is a 77 y.o. year old with past medical history of Chronic HFrEF EF 35% per echo 05/2022, nonobstructive coronary arteries per cath 01/05/2023, chronic MORIN which is recently worsened, Watchman procedure 2018 due to high risk bleed related to GI bleed She was referred by Dr. Paniagua for her A-fib. [facility] to [facility] cardiology for second opinion. She recently underwent [...] rash, no ulcer, (more content not included)... [facility] 01-25-2023 Note Patient here to disc uss possible afib ablation per Dr. Paniagua. She will be scheduled for muga scan in Mar 2023. Review of Systems Cardiovascular: Positive for dyspnea on exertion. All other systems reviewed and are negative. [facility] 01-18-2023 Note [facility] Chief Complaint: Patient here [...] reduced ejection fraction 5. Follow-up with Dr. Paniagua in the next 2 to 3 weeks Assessment: Chronic heart failure with reduced ejection fraction (HFrEF), recent worsening EF 35% by TTE 06/08/22 Nonischemic cardiomyopathy Normal coronaries by [facility] 2013 and 2022 Mitral regurgitation, moderate by TTE 05/2022 Persistent atrial fibrillation s/p repeat ca (more content not included)... [facility] 01-05-2023 Note Cardiovascular Labor atory Report [...] with reduced ejection fraction Follow-up with Dr. Paniagua in the next 2 to 3 weeks [...] left radial artery was obtained. A 6 [place] glide sheath was inserted without difficulty. Bilateral [...] fraction, heart failure with reduced ejection fraction [facility] 11-23-2022 Note [facility] Note Chief Complaint: Complains of shortness of breath, worse with exertion and heart fluttering at rest. HX of afib. HPI: Saul Gutiérrez is a 77 y.o. female presents for a second opinion. Currently seeing cardiology in [place] she sees someone different at every [...] judgement. Investigations Echo complete W/O contrast Order: [id number] Narrative Left Ventricle: Systolic function is moderately [...] no pericardial effus (more content not included)... [facility] 07-23-2022 Note PAIN MANAGEMENT CONS ULTATION CONSULTATION DATE: 07/23/2022 TO: Larisa Luís CHIEF COMPLAINT: Left hip pain, left buttock [...] months' time or sooner if needed. [facility] 03-26-2022 Note CONSULTATION CONSULTATION DATE: 03/26/2022 [...] agrees with the plan of care. [facility] 12-24-2021 Note CONSULTATION PROCEDURE DATE: 12/24/2021 [...] the procedure well with no complications. [facility] 12-24-2021 Note CONSULTATION CONSULTATION DATE: 12/24/2021 [...] three months' time, unless otherwise indicated. [facility] Evaluation note Diagnosis Essential hypertension- Primary Unspecified essential hypertension documented in this encounter [employer] SystemInstructionsNot on filedocumented in this encounter [facility] Summary Purpose Family History No Family History Records FoundNo Family History Records FoundNo Family History Records Found Advance Directives No Advanced Directives Records FoundNo Advanced Directives Records FoundNo Advanced Directives Records Found Additional Source Comments INFORMATION SOURCE (unrecogn ized section and content) DATE CREATED AUTHOR 07/25/2020 [facility] DATE CREATED AUTHOR AUTHOR'S ORGANIZ ATION 10/12/2022 [facility] DATE CREATED AUTHOR AUTHOR'S ORGANIZ ATION 10/25/2023 [facility] Reason for Visit (unrecogniz ed section and content) Reason Comments Med Refill Care Teams (unrecognized sec tion and content) Sil[employer] 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 [employer] [facility]. provides no warranty or guarantee of the accuracy or completeness of information in this document.
--- NOTE | 2023-10-27 08:43 | P.CN_ITS ---
Consult Note: HPI Data of Consult Patient: known to practice within the last 3 years Requesting Physician: Carmen Ramey NP Primary Care Provider: FIDELINA STALEY Consult Narrative Reason for consult: f/u Narrative: Radha Cornell a pleasant 78 year old female presents for evaluation and management of chronic low back pain. Recently underwent Left Lumbar 2/3, 4/5 Radiofrequency ablation, noticing <50% improvement in symptoms at this time now noticing more pain over left superior gluteal nerve and pain radiating down left leg following l5/s1. Pain today 8/10 ache which numbness tingling of bilateral legs, left greater than right, increased with all activity and decreased with lying down and heat. Patient has found benefit to current medication regimen without side effects. cc:: CC: Carmen Ramey NP Review of Systems ROS Status of ROS 10 or more systems reviewed and unremark able except as noted in history and below Musculoskeletal Reports: back pain PFSH PFSH Medical History Rectocele ?N81.6 - Rectocele (ICD-10) Bruising ?T14.8XXA - Other injury of unspecified body region, initial encounter (ICD- 10) Anemia ?D64.9 - Anemia, unspecified (ICD-10) Upper back pain ?M54.9 - Dorsalgia, unspecified (ICD-10) Neck pain ?M54.2 - Cervicalgia (ICD-10) Low back pain ?M54.50 - Low back pain, unspecified (ICD-10) Fibromyalgia ?M79.7 - Fibromyalgia (ICD-10) Heartburn ?R12 - Heartburn (ICD-10) Acid reflux ?K21.9 - Gastro-esophageal reflux disease without esophagitis (ICD-10) Sleep apnea ?G47.30 - Sleep apnea, unspecified (ICD-10) Atrial fibrillation ?I48.91 - Unspecified atrial fibrillation (ICD-10) Surgical History S/P lumbar spine operation ?Z98.890 - Other specified postprocedural states (ICD-10) S/P shoulder surgery ?Z98.890 - Other specified postprocedural states (ICD-10) History of bariatric surgery ?Z98.84 - Bariatric surgery status (ICD-10) H/O heart surgery ?Z98.890 - Other specified postprocedural states (ICD-10) H/O: hysterectomy ?Z90.710 - Acquired absence of both cervix and uterus (ICD-10) Hx of cholecystectomy ?Z90.49 - Acquired absence of other specified parts of digestive tract (ICD- 10) Meds Home Medications and Allergies Home Medications ?Medication ?Instructions ?Recorded ?Confirmed ?Type baclofen 10 mg tablet 10 mg PO BID 11/03/22 03/16/23 History cholecalciferol (vitamin D3) 125 5,000 unit PO DAILY 11/03/22 03/16/23 History mcg (5,000 unit) capsule furosemide 40 mg tablet (Lasix) 40 mg PO BID 11/03/22 03/16/23 History krill 2 cap PO DAILY 11/03/22 03/16/23 History ced-wg9-mzw-kyf-tr0-fra-astax 1,500 mg-165 mg-67.5 mg capsule losartan 25 mg tablet 25 mg PO DAILY 11/03/22 03/16/23 History metoprolol succinate 25 mg 12.5 mg PO BID 11/03/22 03/16/23 History tablet,extended release 24 hr multivitamin 1 tab PO DAILY 11/03/22 03/16/23 History pantoprazole 40 mg tablet,delayed 40 mg PO BID 11/03/22 03/16/23 History release (Protonix) pramipexole 1 mg tablet (Mirapex) 1 mg PO DAILY 11/03/22 03/16/23 History trazodone 50 mg tablet 50 mg PO DAILY 11/03/22 03/16/23 History vitamin B complex 1 cap PO DAILY 11/03/22 03/16/23 History naloxone 4 mg/actuation nasal 4 mg intranasal Q3M PRN opioid 02/11/23 03/16/23 Rx spray (Narcan) overdose #2 ea baclofen 10 mg tablet 10 mg PO BID PRN muscle spasm #60 07/28/23 Rx tabs empagliflozin 25 mg tablet 25 mg PO DAILY 07/28/23 07/28/23 History (Jardiance) oxycodone-acetaminophen 5 mg-325 1 tab PO TID PRN pain #90 tabs 07/28/23 Rx mg tablet (Percocet) oxycodone-acetaminophen 5 mg-325 1 tab PO TID PRN pain #90 tabs 09/09/23 Rx mg tablet (Percocet) oxycodone-acetaminophen 5 mg-325 1 tab PO TID PRN pain #90 tabs 10/12/23 Rx mg tablet (Percocet) Allergies Allergy/AdvReac Type Severity Reaction Status Date / Time codeine Allergy Mild Hives Verified 03/16/23 12:14 Exam Constitutional Documenting provider has reviewed patient's vital signs: yes Common normals: no apparent distress, oriented x3, healthy appearing, alert and well nourished General appearance: cooperative HENMT Common normals: normocephalic, hearing grossly normal bilaterally and moist oral mucous membranes Head and scalp: normocephalic Eye Common normals: PERRL Pupil: PERRL Neck & C-Spine Common normals: full ROM General: normal visual inspection Chest Common normals: inspection of chest normal Respiratory Common normals: normal respiratory effort, no retractions and no use of accessory muscles Back & Pelvis Lumbar spine/lower back: ROM limited, pain with ROM and straight leg raise positive left Other: facet loading negative tender to touch and pain with activity over left superior gluteal nerve positive fabers to left, pain with gaenslen and thigh thrust pain following l4/5 l5/s1 dermatomal pattern on left, decreased sensation noted Extremity Common normals: normal to inspection and full ROM Neuro Common normals: oriented x3, CN's II-XII intact bilaterally, moves all extremities, no focal motor deficits, no sensory deficits noted and deep tendon reflexes 2+ bilaterally Sensorium/orientation: alert Motor exam: strength 5/5 throughout and no movement abnormalities noted Psych Common normals: mental status grossly normal, thought process normal, cooperative, affect normal, speech normal and activity/motor behavior normal Speech: normal speech Thought process: normal thought process Results Additional Findings Additional findings: If on a controlled substance or opioids, I have checked an OARRS report on this patient and there are no aberrancies noted in the prescribing history.??If on a controlled substance or opioid a drug screen was completed and reviewed within the last year, and if there has not been a drug screen completed we ordered one today to monitor higher risk, state monitored pain medication use. As part of providing excellent, safe, comprehensive care, the following was completed at our patient's visit: 1. A medication reconciliation and review to ensure accurate knowledge of current/active medications, including asking our patients to inform us about any mfyq-twn-wzftqjf medications or herbal remedies/nutritional supplements /alternative remedies. 2. A review to specifically ensure our patients have had annual screening for screening for depression, screening for tobacco use, and screening for unhealthy alcohol use. For concerning screenings had a discussion with the patient, provided patient education, and recommended follow-up with primary care provider when appropriate. If patient noted with a risk of falling, they received education on strength, gait, and balance training to prevent future risk of falling. Assessment and Plan Assessment and Plan (1) Lumbar radiculopathy: (2) Post laminectomy syndrome: (3) Lumbar spondylosis: (4) Muscle spasm: (5) Chronic prescription opiate use: Assessment and Plan: I feel these medications are improving the patient's quality of life and allow them to tolerate activities of daily living as well as participate in recreational activity.? The patient does not report intolerable side effects. The patient is NOT opioid naive and non-pharmacologic and non-opioid treatment has failed to significantly relieve the patient's pain and improve functionalit y. The patient has a diagnosis that is related to a somatic or visceral pain etiology. ? ?? I reviewed with the patient the potential risks and side effects with the use of? opioid medications including but not limited to respiratory depression,? sedation, and even . I verified the patient has access to naloxone should? these effects occur. I advised the patient to avoid the use of any other? sedation substances including alcohol, THC, and benzodiazepines while? taking opioid medications due to the risk of compounding side effects and? detrimental outcomes. I reviewed the SHEET COMBINING OPERATOR, pain treatment agreement, urine? drug screen, and opioid start talking forms. The patient was advised to let? their family know they had Naloxone in case they would need to administer? the medication.? ?? A drug screen was completed within the last year, and no aberrancies were noted regarding their use of controlled substances. The patient understands they are subject to the terms and conditions of the pain contract that they have signed. ? ?? I have checked an OARRS report on this patient today and there are no aberrancies noted in the prescribing history.? (6) Unspecified mononeuropathy of left lower limb: Assessment and Plan: consider left superior gluteal nerve block working towards thermal RFA for left superior gluteal neuritis if pain persists Plan caudal thuy under fluoroscopy, risks vs benefits reviewed restart pregabalin 50 mg HS, previously found benefit continue current medications, can take baclofen 5-10mg BID PRN narcan previously prescribed and discussed continue f/u with cardiology, recently had defibrillator placed f/u 2 weeks after THUY
== END 2023-10-27 08:22 | disposition home or self-care (01) ==
LOC: PM 08:23
PROVIDERS: PCP Nurse Practitioner Family; Visit Provider Nurse Practitioner
DX: M54.16 Radiculopathy, lumbar region (principal); M96.1 Postlaminectomy syndrome, not elsewhere classified; M47.816 Spondylosis without myelopathy or radiculopathy, lumbar region; M62.838 Other muscle spasm; Z79.891 Long term (current) use of opiate analgesic
CPT/HCPCS: G0463

== ENCOUNTER 2023-12-14 09:47 | Day surgery (SDC) | payer MEDICARE, SELFPAY ==
[2023-12-14 10:27] VITALS: BP 114/75; PULSE 54; TEMP 36.2; O2SAT 100
[2023-12-14 11:16] VITALS: BP 114/57; BP 119/60; PULSE 78; PULSE 80; O2SAT 91; O2SAT 92
[2023-12-14] MEDS: 0.9 % SODIUM CHLORIDE 10 ML SYRINGE - SALINE FLUSH 2 ML INJ (11:19)
[2023-12-14] MEDS: METHYLPREDNISOLONE ACETATE 80 MG/ML VIAL INJ (11:20)
[2023-12-14] MEDS: LIDOCAINE HCL 2% 400 MG/20 ML MDV INJ (11:20)
[2023-12-14] MEDS: BUPIVACAINE HCL 0.25% PF 25 MG/10 ML VIAL 2 ML INJ (11:20)
[2023-12-14] MEDS: IOHEXOL 240 MG/ML - 10 ML VIAL 36 MG IV (11:20)
--- NOTE | 2023-12-14 11:36 | W.PM.PROCNOT ---
Date of procedure: 12/14/23 Pre-op diagnosis: Lumbar radiculopathy Post-op diagnosis: same as pre-op Procedure: Caudal Epidural Steroid Injection With catheter advancement Pre-operative diagnosis includes Radiculopathy, Postoperative diagnosis same, Under fluoroscopic guidance Solution used for the injection is Marcaine 0.25% Depo-Medrol 80 mg total of 5ml Omnipaque 3cc,3ml total, 1ml was used for injection to confirm needle tip placement and catheter tip placement within the epidural space. catheter was removed with the tip intact. Anesthesia: local anesthesia using 2% lidocaine, total no more than 5 mL. Timeout process compliant After obtaining informed consent .the patient was brought to the procedure room .placed in the prone position . the area was prepped and draped in a sterile fashion utilizing betadine. 25 gauge needle was used to create a skin wheal over the sacral hiatus identified under fluoroscopy. 17 gauge touhy needle was inserted over the anesthetized area and directed to the [place] hiatus under fluoroscopic guidance. after piercing the sacrococcygeal ligament. Confirmation of needle tip placement within the epidural space was accomplished with injection of contrast solution in AP and Lateral views. Epidural catheter was advanced to the L5 level .catheter placement confirmed with injection of contrast solution . the steroid solution was then injected .needle and catheter was removed post procedurally. patient transferred to recovery area in stable condition. Discharged home after meeting criteria. Anesthesia: Local Surgeon: Jeramie Roberts Condition: stable
== END 2023-12-14 11:22 | disposition home or self-care (01) ==
LOC: SURGOUT 09:48
PROVIDERS: PCP Nurse Practitioner Family; Visit Provider Anesthesiology Pain Medicine
DX: M54.16 Radiculopathy, lumbar region (principal)
CPT/HCPCS: 62323; J0665; J1010; Q9966

== ENCOUNTER 2023-12-20 11:23 | Outpatient (OUT) | payer MEDICARE, SELFPAY ==
--- OUTSIDE RECORDS SUMMARY | 2023-12-20 11:48 | XMS_ITS | CCD ---
Author Organization [facility] Care Team Providers Care Financial Services Assistant Name Role Phone JOHNSON ., DR JAYLON Ruelas Admitting Unavailable ORNELAS ., DR JAYLON Ruelas Attending [facility]available [facility] Care Unavailable ORNELAS ., DR JAYLON Ruelas Consulting Unavailable MICHELINE MOLINA Consulting Unavailable ORNELAS ., DR JAYLON Ruelas Admitting Unavailable ORNELAS ., DR JAYLON Ruelas Attending Unavailable [facility] Primary Care Unavailable RODRIGUEZ ., SABRINA Consulting Unavailable ORNELAS ., DR JAYLON Ruelas Admitting Unavailable ORNELAS ., DR JAYLON Ruelas Attending Unavailable [facility] Primary Care Unavailable RODRIGUEZ ., SABRINA Consulting Unavailable [facility] Primary Care Unavailable LAKSHMIPATHY ., NARENDRANATH Admitting Charity vailable LAKSHMIPATHY ., NARENDRANATH Attending Charity vailable LAKSHMIPATHY ., NARENDRANATH Consulting Charity vailable LAKSHMIPATHY ., NARENDRANATH Admitting Charity vailable LAKSHMIPATHY ., NARENDRANATH Attending Charity vailable [facility] Primary Care Unavailable LUÍS, HEAVEN Admitting Unavailable LUÍS, HEAVEN Attending Unavailable [facility] Primary Care Unavailable DR OSWALDO VALENZUELA Consulting Unavailable LUÍS, HEAVEN Consulting Unavailable [facility] Primary Care Unavailable DAREK ., KEILY Admitting Unavailable DAREK ., KEILY Attending Unavailable DAREK ., KEILY Consulting Unavailable KELSIE DEL ANGEL Consulting Unavailable Luís [facility] Primary Care Provider OSWALDO GARCÍA Attending Unavailable ROBERT MADDEN Attending Unavailable ROBERT MADDEN Referring Unavailable ROBERT MADDEN Referring Unavailable DIANA, SHAYY Referring Unavailable ROBERT MADDEN Referring Unavailable ROBERT MADDEN Referring Unavailable DIANA, SHAYY Referring Unavailable ROBERT MADDEN Admitting Unavailable ROBERT MADDEN Attending Unavailable ROBERT MADDEN Referring Unavailable ROBERT MADDEN Referring Unavailable ADELAIDA RIZO Attending Unavailable [facility] Referring Unavailable ROBERT MADDEN Referring Unavailable ADELAIDA RIZO Attending Unavailable ROBERT MADDEN Attending Unavailable ROBERT MADDEN Referring Unavailable [facility] Attending Unavailable NALLELY FOLEYNY Attending Unavailable ROBERT MADDEN Referring Unavailable ROBERT MADDEN Admitting Unavailable ROBERT MADDEN Attending Unavailable [facility] Admitting Unavailable [facility] Attending Unavailable Allergies Allergy Classification Reported Allergen(s) Allergy Type Date of Onset Reaction(s) Facility (2 sources) Codeine; Translations: [CODEINE] Drug Allergy 06-06-2014 [facility] Repository (1 source) Codeine Drug Allergy 06-06-2014 [facility] (2 sources) Lisinopril; Translations: [LISINOPRIL] Drug Allergy 10-19-2014 [facility] (1 source) pregabalin; Translations: [PREGABALIN] Drug Allergy 12-01-2023 [facility] Repository Medications Current Medications Medication Drug Class(es) Dates [...] 30 tablet 1 06/08/2023 Active lactobacillus acidophilus [id number] unt oral capsule (1 source) take 1 [...] Indications: Chronic systolic CHF (congestive heart failure) (CMS-HCC) Take 1 tablet (25 mg total) by [...] unspecified] Onset: 06-05-2022 06-05-2022 Chronic Cardiac dysrhythmias (7 sources) Unspecified atrial fibrillation; Translations: [Persistent atrial [...] fibrillation; Translations: [Other persistent atrial fibrillation] Onset: 12-01-2023 Unclassified (2 sources) Longstanding persistent atrial fibrillation; [...] 10-11-2020 Episodic Other aftercare (1 source) 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 HPon 11-01-2023 [facility] Electrophysiology Consult Note Reason for visit: Afib 11/01/23 Pt here for AVN ablation. She underwent biv ICD on 07/05/23 05/18/23 Patient here for follow up muga scan per Dr. Jefferson. She denies chest pain, SOB, palpitations, and lightheadedness. MUGA scan is reportedly 32%. she is on optimal guideline directed medical therapy with beta-blockers, SGLT2 inhibitors, aldosterone blockers. she is not on RONDA inhibitor due to the fact that her blood pressure is on the lower side. 03/23/23 HPI: Radha Gutiérrez is a 78 y.o. year old with past medical history of HFrEF with EF of 35% as per an echocardiogram in May 2022, nonobstructive coronary artery disease as per cath on 01/05/2023 who previously had undergone a Watchman procedure in 2019 due to GI bleed. She was previously seen by [facility] cardiology. She was initially seen by [...] Determinants of Health Tobacco Use: Low Risk (10/22/2023) Patient History Smoking Tobacco Use: Never Smokeless Tobacco Use: Never Passive Exposure: Not on file Alcohol Use: Not on file Financial Resource Strain: Not on file Food Insecurity: Not on file Transportation Needs: Not on file Physical Activity: Not on file Stress: Not on file Social Connections: Not on file Intimate Partner Violence: Unknown (07/23/2023) [place] Safety & Environment Fear of Current or Ex-Partner: Not on file Emotionally Abused: Not on file Physically Abused: Not on file Sexually Abused: Not on file Physically or Sexually Abused: Not on file Depression: Not on file Housing Stability: Not on file Utilities: Not on file Allergies: Allergies Allergen Reactions Codeine Other reaction(s): Intolerance-unknown Lisinopril Other reaction(s): Dry cough Weight: 90.7kg Visit Vitals BP 103/67 Pulse 80 Resp 15 Ht 1.651 m (5' 5 ) Wt 81.6 kg (180 lb) SpO2 100% BMI 29.95 kg/m??? OB Status Postmenopausal Smoking Status Never BSA 1.93 m??? Meds: No current facility-administered medications on file prior to encounter. Current Outpatient Medications on File Prior to Encounter Medication Sig Dispense Refill aspirin 81 mg EC tablet Take 81 mg by mouth 3 (three) times a week. baclofen (Lioresal) 10 mg tablet Take 10 mg by mouth in the morning, at noon, and at bedtime. coenzyme Q-10 100 mg capsule Take 100 mg by mouth in the morning. diclofenac (Voltaren) 50 mg EC tablet Take 50 mg by mouth if needed. furosemide (Lasix) 40 mg tablet Take 1 tablet (40 mg) by mouth once daily as directed. 90 tablet 3 losartan (Cozaar) 25 mg tablet Take 1 [...] 1.5 mg by mouth in the morning. pregabalin (Lyrica) 50 mg capsule Take 50 mg by mouth at bedtime. spironolactone (Aldactone) 25 mg tablet Take 1 tablet (25 mg) by mouth once daily as directed. 90 tablet 3 sucralfate (Carafate) 1 gram tablet Take 1 g by mouth in the morning, at noon, in the evening, and at bedtime. traZODone (Desyrel) 50 mg tab (more content not included)... [facility] NURSNOTEon 11-01-2023 NURSNOTE RN educated pt on d/ c instructions. RN encouraged pt to voice any questions or concerns. Pt verbalizes no questions or concerns at this time. [facility] Orders Onlyon 10-22-2023 Orders Only [id number] Radha Gutiérrez 1945 F Date Provider Department Center 10/22/2023 Haider-DEMOND BERG [facility] [place] [facility] Family History Problem Relation Age of Onset Heart failure Father Family Status - Relation Status Age at Father [facility] Orders Onlyon 08-27-2023 Orders Only [id number] Radha Gutiérrez 1945 F Date Provider Department Center 08/27/2023 Anupama-LEATHA BORDEN Family History Problem Relation Age of Onset Heart failure Father Family Status - Relation Status Age at Father [facility] Office Visiton 07-14-2023 Follow-up visit [id number] Radha Gutiérrez 1945 Date Provider Department Center 07/14/2023 ADELAIDA VALENCIA [facility] Family History Problem Relation Age of Onset Heart failure Father Family Status - Relation Status Age at Father Level of Service:48137 [place] POSTOP FOLLOW UP VISIT RELATED TO ORIGINAL PX Normal [facility] HPon 07-05-2023 [facility] Electrophysiology Consult Note Reason for visit: [...] GI bleed. She was previously seen by [facility] cardiology. She was initially seen by [...] Appearance: well-nourished, we (more content not included)... [facility] NURSNOTEon 07-05-2023 NURSNOTE RN educated pt on d/ c instructions. RN encouraged pt to voice any questions or concerns. Pt verbalizes no questions or concerns at this time. Pt was wheeled off of unit with all of belongings. [facility] NURSNOTE CHG wipes and betadine nasal swabs completed. [facility] Orders Onlyon 07-05-2023 Orders Only [id number] Radha Gutiérrez 1945 Date Provider Department Center 07/05/2023 ELENA ATWOOD [facility] [place] HeartVAS Family History Problem Relation Age of Onset Heart failure Father Family Status - Relation Status Age at Father [facility] Office Visiton 05-18-2023 Follow-up visit [id number] Radha Gutiérrez 1945 Date Provider Department Center 05/18/2023 Antonietta-ROBERT MADDEN [facility] Family History Problem Relation Age of Onset Heart failure Father Family Status - Relation Status Age at Father Level of Service:74312 [place] OFFICE/OUTPATIENT ESTABLISHED MOD MDM 30 MIN (GC) [facility] Office Visiton 03-23-2023 Follow-up visit [id number] Radha Gutiérrez 1945 Provider Department Center 03/23/2023 AntoniettaROBERT SHELBY [facility] Family History Problem Relation Age of Onset Heart failure Father Family Status - Relation Status Age at Father Level of Service:14937 [place] OFFICE/OUTPATIENT NEW MODERATE MDM 45-[address] [facility] Office Visiton 01-25-2023 Follow-up visit [id number] Radha Gutiérrez 1945 Provider Department Center 01/25/2023 Star-RUDDYNATHANIEL VIRGIL [facility] Family History Problem Relation Age of Onset Heart failure Father Family Status - Relation Status Age at Father Level of Service:72234 [place] OFFICE/OUTPATIENT ESTABLISHED MOD MDM 30-[address] [facility] Office Visiton 01-18-2023 Follow-up visit [id number] Radha Gutiérrez 1945 Provider Department Center 01/18/2023 MATT BARRERA [facility] Family History Problem Relation Age of Onset Heart failure Father Family Status - Relation Status Age at Father Level of Service:02756 [place] OFFICE/OUTPATIENT ESTABLISHED MOD MDM 30-[address] [facility] Marlene 01-05-2023 ANES - Attestation signed by Matt Jefferson MD at 01/05/2023 9:33 AM Matt Jefferson MD, MPH, [facility], [facility], [facility] Interventional Cardiology Pager Email: [email or web address] Patient: Radha Gutiérrez Procedure Information Date/Time: 01/05/23929 Procedure: Coronary angiography (Left) Location: [facility] / [facility] (Cath) Providers: Matt Jefferson MD [...] discussed with attending. Additional Equipment Requests Normal [facility] CBCon 01-05-2023 Erythrocyte distribution width (RBC) [Ratio] 14.8 % Normal 11.5-15.0 [facility] Comment on above: Performed By: #### L [id number] ####[facility] (AKER)[address] [place] [address] ERYTHROCYTE MEAN CORPUSCULAR HEMOGLOBIN CONCENTRATION (G/DL) BY AUTOMATED 31.4 g/dL Low 32.0-35.0 [facility] Comment on above: Performed By: #### L [id number] ####[facility] (BEAKER)[address] [place] [address] Hematocrit (Bld) [Volume fraction] 42.0 % Normal 36.0-48.0 [facility] Comment on above: Performed By: #### L [id number] ####[facility] (BEAKER)[address] [place] [address] Hemoglobin (Bld) [Mass/Vol] 13.2 g/dL Normal 12.0-15.0 [facility] Comment on above: Performed By: #### L [id number] ####[facility] (BEAKER)[address] [place] [address] MCH (RBC) [Entitic mass] 30.3 pg Normal 27.0-33.0 [facility] Comment on above: Performed By: #### L [id number] ####[facility] (BEAKER)[address] [place] [address] MCV (RBC) [Entitic vol] 96.3 fL Normal 82.0-98.0 [facility] Comment on above: Performed By: #### L [id number] ####[facility] ([facility] [place] [address] PLATELETS (10*3/UL) IN BLOOD AUTOMATED COUNT 231 10*3/uL Normal 150-400 [facility] Comment on above: Performed By: #### L [id number] ####[facility] ([facility])[address] [place] [address] RBC (Bld) [#/Vol] 4.36 10*6/uL Normal 3.80-5.00 [facility] Comment on above: Performed By: #### L [id number] ####[facility] ([facility])[address] [place] [address] WBC (Bld) [#/Vol] 8.83 10*3/uL Normal 4.00-10.60 [facility] Comment on above: Performed By: #### L [id number] ####[facility] ([facility])[address] [place] [address] HPon 01-05-2023 HP - Attestation signed by [...] documentation from me. Matt Jefferson MD, MPH, [facility], [facility], [facility] Interventional Cardiology Pager Email: [email or web address] History Of Present Illness Radha Gutiérrez is a 77 y.o. female with history of Afib, CKD III, nonischemic cardiomyopathy, with new drop of EF from 40-45% to 35% presenting for coronary angiography. Patient was evaluated in office in October 2022 for second opinion. She was referred for stress test which was reportedly positive (done in [facility]). Patient reports exertional shortness of breath [...] SpO2 100 %. Relevant Results HB 13.2 Schedule Announcer 1.32 Assessment/Plan Principal Problem: Abnormal cardiovascular stress test 1- Abnormal Stress test 2- HFrEF with new reduction of EF (40-45% down to 35%) 3- History of NICM 4- Normal coronary angio in 2013 5- Exertional Dyspnea Plan to proceed with coronary angiography today. [facility] NURSNOTEon 01-05-2023 NURSNOTE RN educated pt on d/ c instructions. RN encouraged pt to voice any questions or concerns. Pt verbalizes no questions or concerns at this time. Pt was wheeled off of unit with all of belongings. [facility] INSULINon 09-23-2022 Insulin 7.9 uIU/mL Normal 2.6-24.9 [facility] Comment on above: Performed By: #### I NSULIN ####[facility] [address] [place], [place] [address]DrViky Dior CBC AUTO DIFFon 09-22-2022 BASO # 0.0 103/ul Normal 0.0-0.1 [facility] Comment on above: Performed By: #### C BC ####[facility] Xcx[address] [place], [place] [address]DrViky Dior Basophils/100 WBC (Bld) 0.4 % Normal 0.2-2.0 [facility] Comment on above: Performed By: #### C BC ####[facility] Q[address] [place], [place] [address]DrViky Dior EO # 0.6 103/ul Normal 0.0-0.7 [facility] Comment on above: Performed By: #### C BC ####[facility] Idusdqghsx[address] [place], [place] [address]DrViky Dior Eosinophils/100 WBC (Bld) 6.6 % Normal 0.9-7.0 [facility] Comment on above: Performed By: #### C BC ####[facility] Ouddiayigh[address] [place], [place] [address]DrViky Dior Erythrocyte distribution width (RBC) [Ratio] 16.2 % Critically high 11.0-15.0 [facility] Comment on above: Performed By: #### C BC ####[facility] [address] [place], [place] [address]DrViky Dior Hematocrit (Bld) [Volume fraction] 43.3 % Normal 36.0-48.0 [facility] Comment on above: Performed By: #### C BC ####[facility] [address] [place] [address]DrViky Ravin Ovi Hemoglobin (Bld) [Mass/Vol] 13.4 g/dL Normal 12.0-16.0 [facility] Comment on above: Performed By: #### C BC ####[facility] Veui[address]ux[address] [place], [place] [address]DrViky Dior IG # 0.05 10e3/ul Critically high 0.00-0.03 [facility] Comment on above: Performed By: #### C BC ####[facility] Jrqftdvdmw[address] [place], [place] [address]DrViky Dior IG % 0.5 % Normal 0.0-0.5 [facility] Comment on above: Performed By: #### C BC ####[facility] Ru[address]inom[address] [place], [place] [address]DrViky Dior LYMPH # 2.1 103/ul Normal 1.2-3.8 [facility] Comment on above: Performed By: #### C BC ####[facility] J[address]ypyzqze[address] [place], [place] [address]DrViky Dior Lymphocytes/100 WBC (Bld) 23.1 % Normal 20.5-60.0 [facility] Comment on above: Performed By: #### C BC ####[facility] Mkyrmpwayw[address] [place], [place] [address]DrViky Dior MANUAL DIFF REQ NO Normal [facility] Comment on above: Performed By: #### C BC ####[facility] C[address]xw[address]kwp[address] [place], [place] [address]DrViky Dior MCH (RBC) [Entitic mass] 29.5 pg Normal 26.7-34.0 [facility] Comment on above: Performed By: #### C BC ####[facility] Rpbhirhtwr[address] [place], [place] [address]DrViky Dior MCHC (RBC) [Mass/Vol] 30.9 g/dL Normal 29.9-35.2 [facility] Comment on above: Performed By: #### C BC ####[facility] [address] [place] [address]DrViky Novalilliana Dior MCV (RBC) [Entitic vol] 95.4 fL Normal 81.0-99.0 [facility] Comment on above: Performed By: #### C BC ####[facility] [address] [place], [place] [address]DrViky Dior MONO # 0.5 103/ul Normal 0.3-0.8 [facility] Comment on above: Performed By: #### C BC ####[facility] Izkix[address]pms[address] [place], [place] [address]DrViky Dior Monocytes/100 WBC (Bld) 5.8 % Normal 1.7-12.0 [facility] Comment on above: Performed By: #### C BC ####[facility] Yvq[address] [place], [place] [address]DrViky Dior NEUT # 5.8 103/ul Normal 1.4-6.5 [facility] Comment on above: Performed By: #### C BC ####[facility] K[address] [place], [place] [address]DrViky Dior Neutrophils/100 WBC (Bld) 63.6 % Normal 43.0-75.0 [facility] Comment on above: Performed By: #### C BC ####[facility] Rud[address]ib[address] [place], [place] [address]DrViky Dior Platelet mean volume (Bld) [Entitic vol] 10.7 fL Normal 9.5-13.5 [facility] Comment on above: Performed By: #### C BC ####[facility] [address] [place], [place] [address]DrViky Dior PLT 223 103/ul Normal 150-450 [facility] Comment on above: Performed By: #### C BC ####[facility] [address] [place], [place] [address]Dr. Ravin Dior RBC 4.54 106/ul Normal 4.20-5.40 [facility] Comment on above: Performed By: #### C BC ####[facility] [address] [place] [address]Dr. Ravin Dior WBC 9.2 103/ul Normal 4.0-11.0 [facility] Comment on above: Performed By: #### C BC ####[facility] [address] [place] [address]Dr. Ravin Dior FREE THYROXINE INDEX T7on FTI 2.44 Normal 1.30-4.50 [facility] Comment on above: Performed By: #### C MP, T7, TSH, LIPID #### [facility] [address] [place] [address] [address] Ravin Dior T3U 33.0 % Normal 30.0-39.0 [facility] Comment on above: Performed By: #### C MP, T7, TSH, LIPID #### [facility] [address] [address] [address] Ravin Dior T4 [Mass/Vol] 7.40 ug/dL Normal 4.80-13.90 [facility] Comment on above: Performed By: #### C MP, T7, TSH, LIPID #### [facility] [address] [address] [address] Ravin Dior GLYCOHEMOGLOBIN A1Con 2022 ADA RECOMMENDATION SEE BELOW Normal [facility] Comment on above: Result Comment: ADA RECOMMENDED LIMIT 4.0 - 6.0 ADA THERAPEUTIC TARGET < 7.0 ACTION SUGGESTED > 7.0 Performed By: #### A 1C ####[facility] [address] [place] [address]Dr. Ravin Dior Glucose [Mass/Vol] 105 mg/dL Normal [facility] Comment on above: Performed By: #### A 1C ####[facility] [address] [place] [address]Dr. Ravin Dior HbA1c (Bld) [Mass fraction] 5.3 % Normal 4.5-6.2 [facility] Comment on above: Performed By: #### A 1C ####[facility] [address] [place] [id number]. Ravin Dior IRONon 09-22-2022 Iron [Mass/Vol] 81.0 ug/dL Normal 50.0-170.0 [facility] Comment on above: Performed By: #### I SEAMUS ####[facility] [address] [place] [id number]. Ravin Dior LIPID PROFILEon 09-22-2022 CHOL-HDL RATIO NORM SEE BELOW Normal [facility] Comment on above: Result Comment: 3.3 - 4.4 LOW RISK 4.4 - 7.1 AVERAGE RISK 7.1 - 11.0 MODERATE RISK >11.0 HIGH RISK Performed By: #### C MP, T7, TSH, LIPID ####[facility] [address] [place] [address]Dr. Ravin Dior Cholesterol [Mass/Vol] 159 mg/dL Normal <=200 [facility] Comment on above: Performed By: #### C MP, T7, TSH, LIPID ####[facility] [address] [place] [id number]. Ravin Dior Cholesterol in HDL [Mass/Vol] 47 mg/dL Normal 40-60 [facility] Comment on above: Performed By: #### C MP, T7, TSH, LIPID ####[facility] [address] [place] [id number]. Ravin Dior Cholesterol in LDL [Mass/Vol] 96.4 mg/dL Normal [facility] Comment on above: Performed By: #### C MP, T7, TSH, LIPID ####[facility] [address] [place] [id number]. Ravin Dior Cholesterol.total/Cho lesterol in HDL [Mass ratio] 3.4 {ratio} Normal [facility] Comment on above: Performed By: #### C MP, T7, TSH, LIPID ####[facility] [address] [place] [id number]. Ravin Dior HDL NORMAL > or = 60 mg/dl - LO W CARDIOVASCULAR RISK <40 mg/dl - HIGH CARDIOVASCULAR RISK Normal [facility] Comment on above: Performed By: #### C MP, T7, TSH, LIPID ####[facility] [address] [place], [place] [address]Ws. Ravin Dior LDL CALC NORMAL SEE BELOW Normal [facility] Comment on above: Result Comment: <100 mg/dl OPTIMAL 100 - 129 mg/dl NEAR OR ABOVE OPTIMAL 130 - 159 mg/dl BORDERLINE HIGH 160 - 189 mg/dl HIGH >190 mg/dl VERY HIGH Performed By: #### C MP, T7, TSH, LIPID ####[facility] [address] [place], [place] [address]Xh. Ravin Dior Triglyceride [Mass/Vol] 78 mg/dL Normal <=150 [facility] Comment on above: Performed By: #### C MP, T7, TSH, LIPID ####[facility] [address] [place], [place] [address]Aq. Ravin Dior VLDL CALC 15.6 mg/dL Normal [facility] Comment on above: Performed By: #### C MP, T7, TSH, LIPID ####[facility] [address] [place], [place] [address]Re. Ravin Ovi MG MAMM SCREEN 3D NIKOS CADon 09-22-2022 MG MAMM SCREEN 3D NIKOS CAD Patient: RADHA GUTIÉRREZ Exam Date: 09/22/2022 : 1945 Gender:F Ordering : [facility] Admission #: [id number] Family : Order #: [id number] CLICK HERE TO VIEW EXAM RADIOLOGY REPORT [...] Treatments None Family Cancers None LOCATION: The [facility] BREAST COMPOSITION: Almost entirely fatty. FINDINGS: [...] Valenzuela M.D. on 09/22/2022 at 17:02 Normal [facility] PROF 14(COMP METB)on 09-22- 023 Albumin [Mass/Vol] 3.3 g/dL Critically low 3.4-5.0 [facility] Comment on above: Performed By: #### C MP, T7, TSH, LIPID #### [facility] [address] [address] [address] Ravin Dior Albumin/Globulin [Mass ratio] 0.7 {ratio} Normal [facility] Comment on above: Performed By: #### C MP, T7, TSH, LIPID #### [facility] [address] [address] [address] Ravin Dior ALP [Catalytic activity/Vol] 207 U/L Critically high 46-116 [facility] Comment on above: Performed By: #### C MP, T7, TSH, LIPID #### [facility] [address] [address] [address] Ravin Dior ALT [Catalytic activity/Vol] 47 U/L Normal 14-59 [facility] Comment on above: Performed By: #### C MP, T7, TSH, LIPID #### [facility] [address] [address] [address] Ravin Dior Anion gap [Moles/Vol] 11.5 mmol/L Normal [facility] Comment on above: Performed By: #### C MP, T7, TSH, LIPID #### [facility] [address] [address] [address] Ravin Dior AST [Catalytic activity/Vol] 35 U/L Normal 15-37 [facility] Comment on above: Performed By: #### C MP, T7, TSH, LIPID #### [facility] [address] [place], [place] [id number] Dr. Ravin Dior Bilirubin [Mass/Vol] 0.6 mg/dL Normal 0.2-1.0 [facility] Comment on above: Performed By: #### C MP, T7, TSH, LIPID #### [facility] [address] [address] [address] Ravin Dior Calcium [Mass/Vol] 9.2 mg/dL Normal 8.5-10.1 [facility] Comment on above: Performed By: #### C MP, T7, TSH, LIPID #### [facility] [address] [address] [address] Ravin Dior Chloride [Moles/Vol] 109 mmol/L Critically high 98-107 [facility] Comment on above: Performed By: #### C MP, T7, TSH, LIPID #### [facility] [address] [place] [address] Dr. Ravin Dior CO2 [Moles/Vol] 27.7 mmol/L Normal 21.0-32.0 [facility] Comment on above: Performed By: #### C MP, T7, TSH, LIPID #### [facility] [address] [address] [address] Ravin Dior Creatinine [Mass/Vol] 0.94 mg/dL Normal 0.55-1.02 [facility] Comment on above: Performed By: #### C MP, T7, TSH, LIPID #### [facility] [address] [address] [address] Ravin Dior EGFR-AF MAURITANIAN >60 Normal >=60 [facility] Comment on above: Performed By: #### C MP, T7, TSH, LIPID #### [facility] [address] [address] [address] Ravin Dior EGFR-NON AF MAURITANIAN 58 mL/min/1.73m2 Critically low >=60 [facility] Comment on above: Performed By: #### C MP, T7, TSH, LIPID #### [facility] [address] [address] [address] Ravin Dior Globulin (S) [Mass/Vol] 4.7 g/dL Normal [facility] Comment on above: Performed By: #### C MP, T7, TSH, LIPID #### [facility] [address] [address] [address] Ravin Dior Glucose [Mass/Vol] 95 mg/dL Normal 74-106 [facility] Comment on above: Performed By: #### C MP, T7, TSH, LIPID #### [facility] [address] [address] [address] Ravin Dior Potassium [Moles/Vol] 4.2 mmol/L Normal 3.5-5.1 [facility] Comment on above: Performed By: #### C MP, T7, TSH, LIPID #### [facility] [address] [place] [address] Dr. Ravin Dior Protein [Mass/Vol] 8.0 g/dL Normal 6.4-8.2 [facility] Comment on above: Performed By: #### C MP, T7, TSH, LIPID #### [facility] [address] [place] [address] Dr. Ravin Dior Sodium [Moles/Vol] 144 mmol/L Normal 136-145 [facility] Comment on above: Performed By: #### C MP, T7, TSH, LIPID #### [facility] [address] [place] [address] Dr. Ravin Dior Urea nitrogen [Mass/Vol] 21.0 mg/dL Critically high 7.0-18.0 [facility] Comment on above: Performed By: #### C MP, T7, TSH, LIPID #### [facility] [address] [place] [address] Dr. Ravin Dior Urea nitrogen/Creatinine [Mass ratio] 22.3 mg/mg Normal [facility] Comment on above: Performed By: #### C MP, T7, TSH, LIPID #### [facility] [address] [place] [address] Dr. Ravin Dior TSHon 09-22-2022 TSH 2.085 uIU/mL Normal 0.358-3.740 The [facility] Comment on above: Performed By: #### C MP, T7, TSH, LIPID #### [facility] [address] [address] [address] ABD/PELVIS WO CONon [...] was used, including Automated Exposure Control. FINDINGS: [employer] Supervisor: No pertinent findings, which are not already [...] the largest most superior hernia. Normal [facility] CBC AUTO DIFFon 05-17-2022 BASO # 0.0 103/ul Normal 0.0-0.1 [facility] Comment on above: Performed By: #### C BC ####[facility] [address] [address]Dr. Ravin Dior Basophils/100 WBC (Bld) 0.2 % Normal 0.2-2.0 [facility] Comment on above: Performed By: #### C BC ####[facility] [address] [place], [place] [address]Dr. Ravin Dior EO # 0.1 103/ul Normal 0.0-0.7 [facility] Comment on above: Performed By: #### C BC ####[facility] [address] [place], [place] [address]Dr. Ravin Dior Eosinophils/100 WBC (Bld) 1.4 % Normal 0.9-7.0 [facility] Comment on above: Performed By: #### C BC ####[facility] [address] [place], [place] [address]Dr. Ravin Dior Erythrocyte distribution width (RBC) [Ratio] 13.7 % Normal 11.0-15.0 [facility] Comment on above: Performed By: #### C BC ####[facility] [address] [place], [place] [address]Dr. Ravin Dior Hematocrit (Bld) [Volume fraction] 44.4 % Normal 36.0-48.0 [facility] Comment on above: Performed By: #### C BC ####[facility] [address] [place], [place] [address]Dr. Ravin Dior Hemoglobin (Bld) [Mass/Vol] 14.7 g/dL Normal 12.0-16.0 [facility] Comment on above: Performed By: #### C BC ####[facility] [address] [id number]. Ravin Dior IG # 0.05 10e3/ul Critically high 0.00-0.03 [facility] Comment on above: Performed By: #### C BC ####[facility] [address] [id number]. Ravin Dior IG % 0.5 % Normal 0.0-0.5 [facility] Comment on above: Performed By: #### C BC ####[facility] [address] [address]Dr. Ravin Dior LYMPH # 1.7 103/ul Normal 1.2-3.8 [facility] Comment on above: Performed By: #### C BC ####[facility] [address] [address]Dr. Ravin Dior Lymphocytes/100 WBC (Bld) 17.1 % Critically low 20.5-60.0 [facility] Comment on above: Performed By: #### C BC ####[facility] [address] [address]Dr. Ravin Dior MANUAL DIFF REQ NO Normal [facility] Comment on above: Performed By: #### C BC ####[facility] [address] [id number]. Ravin Dior MCH (RBC) [Entitic mass] 30.7 pg Normal 26.7-34.0 [facility] Comment on above: Performed By: #### C BC ####[facility] [address] [id number]. Ravin Dior MCHC (RBC) [Mass/Vol] 33.1 g/dL Normal 29.9-35.2 [facility] Comment on above: Performed By: #### C BC ####[facility] [address] [address]Dr. Ravin Dior MCV (RBC) [Entitic vol] 92.7 fL Normal 81.0-99.0 [facility] Comment on above: Performed By: #### C BC ####[facility] [address] [id number]. Ravin Dior MONO # 0.6 103/ul Normal 0.3-0.8 [facility] Comment on above: Performed By: #### C BC ####[facility] [address] [id number]. Ravin Dior Monocytes/100 WBC (Bld) 5.7 % Normal 1.7-12.0 [facility] Comment on above: Performed By: #### C BC ####[facility] [address] [id number]. Ravin Dior NEUT # 7.7 103/ul Critically high 1.4-6.5 [facility] Comment on above: Performed By: #### C BC ####[facility] [address] [address]Dr. Ravin Dior Neutrophils/100 WBC (Bld) 75.1 % Critically high 43.0-75.0 [facility] Comment on above: Performed By: #### C BC ####[facility] Rd[address] [place], [place] [address]Dr. Ravin Dior Platelet mean volume (Bld) [Entitic vol] 10.4 fL Normal 9.5-13.5 [facility] Comment on above: Performed By: #### C BC ####[facility] [address] [id number]. Ravin Dior PLT 294 103/ul Normal 150-450 [facility] Comment on above: Performed By: #### C BC ####[facility] [address] [place], [place] [address]Dr. Ravin Dior RBC 4.79 106/ul Normal 4.20-5.40 [facility] Comment on above: Performed By: #### C BC ####[facility] [address] [id number]. Ravin Dior WBC 10.2 103/ul Normal 4.0-11.0 [facility] Comment on above: Performed By: #### C BC ####[facility] [address] [address]Dr. Ravin Dior ER URINE PROFILEon 2 Bilirubin Ql (U) Negative Normal NEGATIVE [facility] Comment on above: Performed By: #### Tammy SOUTH UMICRO #### [facility] [address] [address] [address] Ravin Dior Clarity (U) CLEAR Normal CLEAR [facility] Comment on above: Performed By: #### Tammy SOUTH UMICRO #### [facility] [address] [address] [address] Ravin Dior Color (U) LT. YELLOW Normal YELLOW [facility] Comment on above: Performed By: #### DENY KAUFFMANRO #### [facility] [address] [place] [address] Dr. Ravin PARKER A micrscopic examination will be performed if indicated. Normal [facility] Comment on above: Performed By: #### JAZ KAUFFMANICRO #### [facility] [address] [address] [address] Ravin Dior Glucose Ql (U) Negative Normal NEGATIVE [facility] Comment on above: Performed By: #### DENY KAUFFMANRO #### [facility] [address] [place] [address] Dr. Ravin Dior Hemoglobin Ql (U) Negative Normal NEGATIVE [facility] Comment on above: Performed By: #### JAZ KAUFFMANICRO #### [facility] [address] [address] [address] Ravin Dior Ketones Ql (U) TRACE Abnormal NEGATIVE [facility] Comment on above: Performed By: #### DENY KAUFFMANRO #### [facility] [address] [place] [address] Dr. Ravin Dior LEUKOCYTES SMALL Abnormal NEGATIVE [facility] Comment on above: Performed By: #### JAZ KAUFFMANICRO #### [facility] [address] [address] [address] Ravin Dior Nitrite Ql (U) Negative Normal NEGATIVE [facility] Comment on above: Performed By: #### E RUR, UMICRO #### [facility] [address] [address] [address] Ravin Dior pH (U) 6.0 [pH] Normal 5-9 [facility] Comment on above: Performed By: #### E BRANNON, UMICRO #### [facility] [address] [address] [address] Ravin Dior SPEC GRAVITY 1.010 Normal 1.005-<=1.025 [facility] Comment on above: Performed By: #### E RUR, UMICRO #### [facility] [address] [place] [address] Dr. Ravin Dior UA PROTEIN Negative Normal NEGATIVE/ TRACE [facility] Comment on above: Performed By: #### E BRANNON, UMICRO #### [facility] [address] [place] [address] Dr. Ravin Dior UR MICRO IND INDICATED Normal [facility] Comment on above: Performed By: #### E BRANNON, UMICRO #### [facility] [address] [place] [address] Dr. Ravin Dior Urobilinogen Qn (U) 0.2 {Chandler'U}/dL Normal 0.2 - 1. 0 [facility] Comment on above: Performed By: #### E BRANNON, UMICRO #### [facility] [address] [place] [address] Dr. Ravin Dior LACTATE/LACTIC ACIDon 2021 Lactate [Moles/Vol] 1.3 mmol/L Normal 0.4-1.9 [facility] Comment on above: Performed By: #### L ACT ####[facility] [address] [place], [place] [address]Dr. Ravin Dior LIPASEon 05-17-2022 Lipase [Catalytic activity/Vol] 63.0 U/L Critically low 73.0-393.0 [facility] Comment on above: Performed By: #### C MP, LIPA #### [facility] [address] [address] [address] Ravin Dior PROF 14(COMP METB)on 022 Albumin [Mass/Vol] 3.4 g/dL Normal 3.4-5.0 [facility] Comment on above: Performed By: #### C MP, LIPA #### [facility] [address] [place] [address] Dr. Ravin Dior Albumin/Globulin [Mass ratio] 0.8 {ratio} Normal [facility] Comment on above: Performed By: #### C MP, LIPA #### [facility] [address] [place] [address] Dr. Ravin Dior ALP [Catalytic activity/Vol] 143 U/L Critically high 46-116 [facility] Comment on above: Performed By: #### C MP, LIPA #### [facility] [address] [place] [address] Dr. Ravin Dior ALT [Catalytic activity/Vol] 29 U/L Normal 14-59 [facility] Comment on above: Performed By: #### C MP, LIPA #### [facility] [address] [place] [address] Dr. Ravin Dior Anion gap [Moles/Vol] 7.6 mmol/L Normal [facility] Comment on above: Performed By: #### C MP, LIPA #### [facility] [address] [place] [address] Dr. aRvin Dior AST [Catalytic activity/Vol] 39 U/L Critically high 15-37 [facility] Comment on above: Performed By: #### C MP, LIPA #### [facility] [address] [place] [address] Dr. Ravin Dior Bilirubin [Mass/Vol] 0.7 mg/dL Normal 0.2-1.0 [facility] Comment on above: Performed By: #### C MP, LIPA #### [facility] [address] [place] [address] Dr. Ravin Dior Calcium [Mass/Vol] 9.1 mg/dL Normal 8.5-10.1 [facility] Comment on above: Performed By: #### C MP, LIPA #### [facility] [address] [address] [address] Ravin Dior Chloride [Moles/Vol] 102 mmol/L Normal 98-107 [facility] Comment on above: Performed By: #### C MP, LIPA #### [facility] [address] [address] [address] Ravin Dior CO2 [Moles/Vol] 31.1 mmol/L Normal 21.0-32.0 [facility] Comment on above: Performed By: #### C MP, LIPA #### [facility] [address] [address] [address] Ravin Dior Creatinine [Mass/Vol] 0.88 mg/dL Normal 0.55-1.02 [facility] Comment on above: Performed By: #### C MP, LIPA #### [facility] [address] [address] [address] Ravin Dior EGFR-AF MAURITANIAN >60 Normal >=60 [facility] Comment on above: Performed By: #### C MP, LIPA #### [facility] [address] [address] [address] Ravin Dior EGFR-NON AF MAURITANIAN >60 Normal >=60 [facility] Comment on above: Performed By: #### C MP, LIPA #### [facility] [address] [address] [address] Ravin Dior Globulin (S) [Mass/Vol] 4.5 g/dL Normal [facility] Comment on above: Performed By: #### C MP, LIPA #### [facility] [address] [address] [address] Ravin Dior Glucose [Mass/Vol] 100 mg/dL Normal 74-106 [facility] Comment on above: Performed By: #### C MP, LIPA #### [facility] [address] [address] [address] Ravin Dior Potassium [Moles/Vol] 3.7 mmol/L Normal 3.5-5.1 [facility] Comment on above: Performed By: #### C MP, LIPA #### [facility] [address] [address] [address] Ravin Dior Protein [Mass/Vol] 7.9 g/dL Normal 6.4-8.2 [facility] Comment on above: Performed By: #### C MP, LIPA #### [facility] [address] [place] [address] Dr. Ravin Dior Sodium [Moles/Vol] 137 mmol/L Normal 136-145 [facility] Comment on above: Performed By: #### C MP, LIPA #### [facility] [address] [place] [address] Dr. Ravin Dior Urea nitrogen [Mass/Vol] 12.0 mg/dL Normal 7.0-18.0 [facility] Comment on above: Performed By: #### C MP, LIPA #### [facility] [address] [place] [address] Dr. Ravin Dior Urea nitrogen/Creatinine [Mass ratio] 13.6 mg/mg Normal [facility] Comment on above: Performed By: #### C MP, LIPA #### [facility] [address] [place] [address] Dr. Ravin Dior URINE MICROSCOPIC ONLYon BACTERIA NONE SEEN Normal NONE SEEN [facility] Comment on above: Performed By: #### Tammy SOUTH UMICRO #### [facility] [address] [place] [address] Dr. Ravin Dior Bacteria identified Cx Nom (U) NOT INDICATED Normal [facility] Comment on above: Performed By: #### E RUNavin, UMICRO #### [facility] [address] [place] [address] Dr. Ravin Dior CAST NONE SEEN Normal NONE SEEN [facility] Comment on above: Performed By: #### E BRANNON UMICRO #### [facility] [address] [place] [address] Dr. Ravin Dior Crystals LM Nom (Urine sed) NONE SEEN Normal NONE SEEN [facility] Comment on above: Performed By: #### Tammy SOUTH UMICRO #### [facility] [address] [address] [address] Ravin Dior Epithelial cells LM Ql (Urine sed) FEW Abnormal NONE SEEN /RARE [facility] Comment on above: Performed By: #### E RUR, UMICRO #### [facility] [address] [address] [address] Ravin Dior MUCOUS NONE SEEN Normal NONE SEEN [facility] Comment on above: Performed By: #### E RUR, UMICRO #### [facility] [address] [address] [address] Ravin Dior RBC NONE SEEN Abnormal 0-2 [facility] Comment on above: Performed By: #### E RUR, UMICRO #### [facility] [address] [address] [address] Ravin Dior WBC 0-2 Abnormal NONE SEEN [facility] Comment on above: Performed By: #### E RUR, UMICRO #### [facility] [address] [address] [address] Ravin Dior Ambulatory Clinical Summaryo n 07-24-2020 Ambulatory Clinical Summary {[id number] Normal [facility] Gastroenterology Office/Clin ic Noteon 07-24-2020 Gastroenterology [...] course, # 28 cap(s), Refills(s) 0, Pharmacy: [facility]/pharmacy #[id number], 165, cm, 07/24/20 12:03:00 EST, Height/Length Dosing, 95.9, kg, 07/24/20 12:03:00 EST, Weight Dosing metronidazole, 250 mg = 1 tab(s), Oral, TID, X 7 day(s), # 21 tab(s), Refills(s) 0, Pharmacy: [facility]/pharmacy #[id number], 165, cm, 07/24/20 12:03:00 EST, Height/Length [...] water, # 160 cap(s), Refills(s) 1, Pharmacy: [facility]/pharmacy #[id number], 165, cm, 07/24/20 12:03:00 EST, Height/Length Dosing, 95.9, kg, 07/24/20 12:03:... Orders: pantoprazole, 40 mg = 2 tab(s), Oral, Daily, X 90 day(s), # 180 tab(s), Refills(s) 3, Pharmacy: [facility]/pharmacy #[id number], 165, cm, 07/24/20 12:03:00 EST, Height/Length Dosing, 95.9, kg, 07/24/20 12:03:00 EST, Weight Dosing Follow-up With When Contact Information Isabelle Ramirez MD In 12 months [address], [place] [address]- Additional Instructions: Problem List/Past Medical History Ongoing [...] 12/16/2018 Exercise - Occasional exercise, 12/16/2018 Other Lghkwrqn-0-6 cups blair;y, 12/16/2018 Substance Abuse - Denies Substance Abuse, 12/16/2018 Tobacco Never (less than 100 in lifetime) Tobacco Use:., 07/24/2020 Never (less than 100 in lifetime) Tobacco Use:. Never Smokeless Tobacco Use:., 02/01/2019 [facility] Comment on above: Result Comment: Elec tronically Signed By: Taylor Mccauley MD, Isabelle\.br\Date and Time Signed: 07/24/20 13:13 EST Auth for Release of Medical Recordson 02-09-2020 Auth for Release of Medical Records [id number] [facility] Patient Letter FTon 2019 Patient Letter [facility] January 24, 2020 RADHA GUTIÉRREZ [address] [place] [address] RADHA GUTIÉRREZ 1945 Dear Radha, This is a reminder that you are due for an appointment with Dr. Garland or Dr. Mccauley. Please call [facility] at [phone] to schedule an appointment at your earliest convenience. Thank you, [facility] Encounters Encounter Date Encounter Type Care Provider Facility Start: 12-16-2023 ambulatory ROBERT [facility] Start: 12-01-2023 End: 12-01-[address] [facility] Start: 11-25-[address] [facility] Start: 11-25-2023 Encounter for preprocedural cardiovascular examination SHAYY ORTIZ [facility] Start: 11-24-2023 ambulatory [facility] Start: 11-23-2023 ambulatory [facility] Start: 11-11-2023 End: 11-11-2023 ambulatory OSWALDO GARCÍA Not Available Start: 11-01-2023 ambulatory [facility] Start: 11-01-2023 End: 11-01-2023 ambulatory [facility] Start: 08-10-2023 End: 08-10-2023 ambulatory [facility] Start: 07-14-2023 End: 07-14-[address] [facility] Start: 07-05-2023 ambulatory [facility] Start: 07-05-2023 End: 07-05-2023 ambulatory [facility] Start: 06-05-2023 Refill Mac Lujan sser [employer] Work Phone: [facility] Comment on above: Med Refill Start: 05-18-2023 End: 05-18-2023 ambulatory [facility] Start: 03-23-2023 End: 03-26-2023 ambulatory [facility] Start: 01-25-2023 End: 01-25-2023 ambulatory VIRGIL [facility] Start: 01-18-2023 End: 01-18-2023 ambulatory [facility] Start: 01-05-2023 End: 01-05-2023 ambulatory [facility] Start: 09-22-2022 End: 09-23-2022 ambulatory HEAVEN [...] Adult BMI Screening [facility] Start: 08-25-2023 Tobacco Screening [facility] Start: 01-29-2023 COVID-19 Vaccine ( season) COVID-19 Vaccine ( season) [facility] Start: 01-29-2023 Influenza vaccination Influenza Vacc ine [facility] Start: 11-03-2022 ambulatory Ambulatory Facility:H 1 Start: 2010 Fall Risk Screening Fall [facility] Start: 1995 Administration of varicella zoster vaccine Zoster (Shingles) Vaccine (1 of 2) [facility] Start: 1964 DTaP,Tdap and Td Vac cines (1 - Tdap) DTaP,Tdap and Td Vaccines (1 - Tdap) [facility] Start: 1963 Adult BMI Follow Up Plan Adult BMI Follow Up Plan [facility] Start: 1957 Depression Screening Depression [facility]ing [facility] Start: 1945 Medicare Annual Well ness Visit Medicare Annual Wellness [facility] End: 06-08-2024 Basic metabolic 2000 panel - Serum or Plasma Basic Metabolic Panel Lab Routine Essential hypertension 1 Occurrences starting 06/08/2023 until 06/08/2024 [employer] Work Phone: Comment on above: 1 Occurrences starti ng 06/08/2023 until 06/08/2024 Immunizations Immunization Date Immunization Notes Care Provider Tutu rehman 05-08-2021 influenza virus vaccine, unspecified formulation Mac Erwin [employer] [facility] Payers Date Payer Category Payer Medicare HU[employer] MEDICARE [place] [id number] 2013-Present [phone] [address] [address] [place] [address] [id number] 1959 Medicare [id number] 1945 Unknown [id number] 1945 Unknown [id number] 1945 Unknown [id number] 1945 Unknown [id number] 1945 Unknown [id number] 1945 Unknown [id number] 1945 Unknown [id number] 1945 Unknown [id number] 9 Social History Date Type Detail Facility Start: 05-26-2022 Tobacco smoking stat [facility] Never smoked tobacco [facility] Start: 05-26-2022 Tobacco use and exposure Smoke less tobacco non-user [facility] Start: 08-24-2022 Alcohol intake Current non-dr misdraw hand of alcohol (finding) [facility] Start: 07-04-2020 End: 08-24-2022 History of Social function [facility] Start: 07-04-2020 End: 08-24-2022 Tobacco use panel [facility] Housing Instability Unknown [facility] Start: 1945 Sex Assigned At Not on file P [facility] Medical Equipment Procedure Code Equipment Code Equipment Origin al Text Equipment Identifier Dates Mesh [id number] 3d Rect Plstr Clgn Symbotex 2 Sd Comp Mfl Babsr Rpl [id number] - Sna - [id number] Start: 06-30-2022 Dev Clsr 30fr Watchman 30mm - [id number] Start: 05-31-2019 Clinical Notes 12-24-2021 to 12-01-2023 Note Date & Type Note Facility 12-01-2023 Note Currently pt is doin g quite well s/p recent AV node ablation Remains V paced with BI-V AICd [facility] 12-01-2023 Note No anticoagulation currently [facility] 12-01-2023 Note [facility]TP CARDIOLOGY PROGR ESS NOTE HPI: Radha Gutiérrez is a 78 y.o. female here for F/U ablation HPI 78 yo female presents today s/p recent AV node ablation. She underwent biv ICD on 07/05/[address] Madden. Patient here for follow up AV node ablation performed on 11/01/[address] Madden. She denies chest pain, SOB, palpitations, and lightheadedness/syncope. Denied chest pain, SOB, Palpitations, fever/chills, N/v/D Overall states she feels well since ablation C/O Sciatic nerve/back pain and has upcoming appointment for that soon. Review of Systems Musculoskeletal: Positive for arthritis and back pain. All other systems reviewed and are negative. 11/01/23 Update 05/18/23 Patient here for follow up muga scan per Dr. Jefferson. She denies chest pain, SOB, palpitations, and lightheadedness. MUGA scan is reportedly 32%. she is on optimal guideline directed medical therapy with beta-blockers, SGLT2 inhibitors, aldosterone blockers. she is not on RONDA inhibitor due to the fact that her blood pressure is on the lower side. 03/23/23 HPI: Radha Gutiérrez is a 78 y.o. year old with past medical history of HFrEF with EF of 35% as per an echocardiogram in May 2022, nonobstructive coronary artery disease as per cath on 01/05/2023 who previously had undergone a Watchman procedure in 2019 due to GI bleed. She was previously seen by [facility] cardiology. She was initially seen by [...] seen. occasional PVCs were noted Visit Vitals BP 114/70 (BP Location: Right arm, Patient Position: Sitting) Pulse 80 Ht 1.651 m (5' 5 ) Wt 83 kg (183 lb) SpO2 97% BMI 30.45 kg/m??? OB Status Postmenopausal Smoking Status Never BSA 1.95 m??? Allergies Allergen Reactions Codeine Other reaction(s): Intolerance-unknown Lisinopril Other reaction(s): Dry cough Lyrica [Pregabalin] Other Medications: Current Outpatient Medications on File Prior [...] Take 50 mg by mouth if needed. furosemide (Lasix) 40 mg tablet Take 1 tablet (40 mg) by mouth once daily as directed. 90 tablet 3 losartan (Cozaar) 25 mg tablet TAKE 1 TABLET BY MOUTH EVERY DAY IN THE MORNING 90 tablet 3 metoprolol succinate XL (Toprol-XL) [...] morning. spironolactone (Aldactone) 25 mg tablet Take 1 tablet (25 mg) by mouth once daily as directed. 90 tablet 3 sucralfate (Carafate) 1 gram tablet Take 1 g by mouth in the morning, at noon, in the evening, and at bedtime. traZODone (Desyrel) 50 mg tablet Take 50 mg by mouth at bedtime. VITAMIN B COMPLEX ORAL Take 1 capsule by mouth in the morning. pregabalin (Lyrica) 50 mg capsule Take 50 mg by mouth at bedtime. No current facility-administered medications on file prior to visit. Physical Exam: Constitutional: Appearance: Normal appearance. Without apparent distress HENT: Head: Normocephalic and atraumatic. Nose: Nose normal. Mouth/Throat: Mouth: Mucous membranes are moist. Eyes: Extraocular Movements: Extraocular movements intact. Conjunctiva/sclera: Conjunctivae normal. (more content not included)... [facility] 12-01-2023 Note Patient here for fol low up AV node ablation performed on 11/01/[address] Madden. She denies chest pain, SOB, palpitations, and lightheadedness/syncope. Review of Systems Musculoskeletal: Positive for arthritis and back pain. All other systems reviewed and are negative. [facility] 11-01-2023 Note AV NODE ABLATION PRO CEDURE REPORT DATE OF PROCEDURE: 11/01/2023 PERFORMING PHYSICIAN: Dr. Robert Madden WHEEL GRINDER: TOÑA CONSENT: Patient NAME OF THE PROCEDURE: AV node ablation LOCATION: EP Lab INDICATIONS FOR PROCEDURE: 1. Atrial fibrillation with RVR. PROCEDURAL SEDATION: Versed and Fentanyl. Moderate sedation was administered by the sedation nurse under my supervision and noted in the CVL log. Intraprocedural face to face sedation time: 19 min. Monitoring: Cardiac telemetry, Blood pressure, continuous pulse oxymetry. FLUROSCOPY: NA EBL: 5cc SPECIMEN REMOVED: None PROCEDURE PERFORMED: 1. Comprehensive EP study. 2. Pre and post ablation device testing. 3. AV node ablation. 4. U/S guided venous access INDICATIONS: 78year old with past medical history of HFrEF with EF of 35% as per an echocardiogram in May 2022, nonobstructive coronary artery disease as per cath on 01/05/2023 who previously had undergone a Watchman procedure in 2019 due to GI bleed. She was previously seen by [facility] cardiology. She was initially seen by [...] 100 -110bpm on the higher side. She underwent BiV ICD implant and now has come for AV node ablation. PROCEDURAL DETAILS: The patient was brought to the electrophysiology laboratory and continuous electrocardiographic monitoring was instituted. After a procedural pause identifying the patient, the procedure I decided to proceed following administration of antibiotics. Patient was placed in supine position. The right groin was prepped and draped. Using ultrasound guidance, the right femoral vein was identified and noted to be patent and image stored. Venous access was obtained and a short 8F sheath was placed in the right femoral vein. Irrigated 4mm thermoccol ablation catheter was then advanced to the His location. HV was 57s. At this point, I decided to just proceed with AV node ablation. The catheter was advanced to His location. His area was tagged. The catheter was advanced to the His location. I went on to perform ablation at 40watts. The catheter was flexed and ablation was performed leading to a complete heart block with ventricular pacing at 41bpm. At this time, I decided to stop the ablation. The device was re-programmed and thresholds were noted to have unchanged. The device was programmed VVIR at 80 beats per minute. Sheaths and catheters were removed and hemostasis was achieved. POST PROCEDURE EXAM: Patient was hemodynamically stable. COMPLICATIONS: None. IMPRESSION: 1. Successful AV Node ablation. 2. Device thresholds pre and post ablation. RECOMMENDATIONS: 1. No heavy lifting for 1 week. 2. Follow up in EP clinic in 1 month. 3. Continue anticoagulation. Robert Madden MD Cardiac Electrophysiology. [facility] 11-01-2023 Note Patient: Radha mcghee Procedure Information Date/Time: 11/01/23 0830 Procedure: AV node ablation Location: [facility] SNA[facility]ER DRIV[facility] HORSES 1 EP / [facility] HV VASCULAR LAB (Cath) Providers: Robert Madden MD Clinical information reviewed: Tobacco Allergies Meds Med Hx Surg Hx OB Status Fam Hx Physical Exam Airway Mallampati: II TM distance: >3 FB Neck ROM: full Cardiovascular Dental Pulmonary Abdominal Anesthesia Plan ASA 2 CSE Anesthetic plan and risks discussed with patient. Use of blood products discussed with patient who. Additional Equipment Requests [facility] 11-01-2023 Note SD Electrophysiology Consult Note Reason for visit: Afib 11/01/23 Pt here for AVN ablation. She underwent biv ICD on 07/05/23 05/18/23 Patient here for follow up muga scan per Dr. Jefferson. She denies chest pain, SOB, palpitations, and lightheadedness. MUGA scan is reportedly 32%. she is on optimal guideline directed medical therapy with beta-blockers, SGLT2 inhibitors, aldosterone blockers. she is not on RONDA inhibitor due to the fact that her blood pressure is on the lower side. 03/23/23 HPI: Radha Gutiérrez is a 78 y.o. year old with past medical history of HFrEF with EF of 35% as per an echocardiogram in May 2022, nonobstructive coronary artery disease as per cath on 01/05/2023 who previously had undergone a Watchman procedure in 2019 due to GI bleed. [facility] She was initially seen [...] Determinants of Health Tobacco Use: Low Risk (10/22/2023) Patient History Smoking Tobacco Use: Never Smokeless Tobacco Use: Never Passive Exposure: Not on file Alcohol Use: Not on file Financial Resource Strain: Not on file Food Insecurity: Not on file Transportation Needs: Not on file Physical Activity: Not on file Stress: Not on file Social Connections: Not on file Intimate Partner Violence: Unknown (07/23/2023) SD Safety & Environment Fear of Current or Ex-Partner: Not on file Emotionally Abused: Not on file Physically Abused: Not on file Sexually Abused: Not on file Physically or Sexually Abused: Not on file Depression: Not on file Housing Stability: Not on file Utilities: Not on file Allergies: Allergies Allergen Reactions Codeine Other reaction(s): Intolerance-unknown Lisinopril Other reaction(s): Dry cough Weight: 90.7kg Visit Vitals BP 101/80 Pulse 62 Resp 17 Ht 1.651 m (5' 5 ) Wt 81.6 kg (180 lb) SpO2 100% BMI 29.95 kg/m??? OB Status Postmenopausal Smoking Status Never BSA 1.93 m??? Meds: No current facility-administered medications on file prior to encounter. Current Outpatient Medications on File Prior to Encounter Medication Sig Dispense Refill aspirin 81 mg EC tablet Take 81 mg by mouth 3 (three) times a week. baclofen (Lioresal) 10 mg tablet Take 10 mg by mouth in the morning, at noon, and at bedtime. coenzyme Q-10 100 mg capsule Take 100 mg by mouth in the morning. diclofenac (Voltaren) 50 mg EC tablet Take 50 mg by mouth if needed. furosemide (Lasix) 40 mg tablet Take 1 tablet (40 mg) by mouth once daily as directed. 90 tablet 3 losartan (Cozaar) 25 mg tablet Take 1 [...] 1.5 mg by mouth in the morning. pregabalin (Lyrica) 50 mg capsule Take 50 mg by mouth at bedtime. spironolactone (Aldactone) 25 mg tablet Take 1 tablet (25 mg) by mouth once daily as directed. 90 tablet 3 sucralfate (Carafate) 1 gram tablet Take 1 g by mouth in the morning, at noon, in the evening, and at bedtime. traZODone (Desyrel) 50 mg tab (more content not included)... [facility] 08-27-2023 Note ca [facility] 07-14-2023 Note stable [facility] 07-14-2023 Note Patient here for wou nd check s/p BiV ICD implant on 07/05/[address] [facility] 07-14-2023 Note UTP CARDIOLOGY PROGR ESS NOTE HPI: Radha Gutiérrez is a 77 y.o. female here for 1 week wound/ incision evaluation Previous HPI 12/19/23 Patient here for follow up muga scan [...] GI bleed. She was previously seen by [facility] cardiology. She was initially seen by [...] Neurological: General: No (more content not included)... [facility] 07-14-2023 Note Site well approximat ed and healing well No s/s of infection or hematoma, + ecchymosis noted [facility] 07-14-2023 Note -[id number] at [address] 5 for age x2, gender, hypertension, CHF, on aspirin s/p watchmen Continue meds as prescribed [facility] 07-05-2023 Note TELETYPEWRITER INSTALLER-D IMPLANT PROCED URE NOTE DATE OF PROCEDURE: 07/05/2023 PERFORMING PHYSICIAN: Dr. Robert Madden WHEEL GRINDER: NA CONSENT: Patient LOCATION: [facility] PROCEDURE PERFORMED: 1. Implantation of Biventricular ICD ([employer]). 2. U/S venous access 3. Coronary [...] GI bleed. She was previously seen by [facility] cardiology. She was initially seen by [...] occasions using seldinger technique using a 5 Indonesian micropunture needle and exchanged for 0.034 wire. I decided to proceed with opening of the pocket. Localinfiltration of 1% Lidocaine was performed and an incision was created in the left upper chest. Dissection was then performed using cautery down. An active fixation [employer] ICD lead was then delivered through [...] to perform the LV lead placement. A Pocahontas sheath was advanced into the RV over [...] The leads were then attached to a [employer] TELETYPEWRITER INSTALLER-D device with atrial ort capped and the [...] Patient was hemodynamically (more content not included)... [facility] 07-05-2023 Note Patient: Radha mcghee Procedure Information Date/Time: 07/05/23 1400 Procedure: Implant ICD - biventricular Location: [facility] SNAKER DRIV[facility] HORSES 1 EP / [facility] (Cath) Providers: Robert Madden MD Clinical information reviewed: Allergies Meds Physical Exam Airway Mallampati: II TM distance: >3 FB Neck ROM: full Cardiovascular Dental Pulmonary Abdominal Anesthesia Plan ASA 2 CSE Anesthetic plan and risks discussed with patient. Use of blood products discussed with patient who. Additional Equipment Requests [facility] 05-18-2023 Note SD Electrophysiology Consult Note Reason for visit: Afib [...] GI bleed. She was previously seen by [facility] cardiology. She was initially seen by [...] Appearance: well-nourished, we (more content not included)... [facility] 03-23-2023 Note [place] Electrophysiology Consult Note [...] GI bleed. She was previously seen by [facility] cardiology. She was initially seen by [...] no cyanosis, no (more content not included)... [facility] 02-04-2023 Note -s/[facility] watchmen 2019[facility] -[id number] at [facility] 5 for age x2, gender, hypertension, [...] Watchman due to unclear risk of stroke [facility] 02-04-2023 Note -will need BiV ICD if ICD indica halie [facility] 02-04-2023 Note -stable, [facility] 02-04-2023 Note -NYHA II, NICM, HFrE F EF 35%, pending MUGA scan in 2-3 months to reassess EF for ICD -nonobstruc cors 12/2022 -ct gdmt -she appears euvolemic and compensated [facility] 02-04-2023 Note -adv compliance with cpap Kush anthony [facility] 01-25-2023 Note Patient here to disc uss possible afib ablation per Dr. Jefferson. She will be scheduled for muga scan in Mar 2023. Review of Systems Cardiovascular: Positive for dyspnea on exertion. All other systems reviewed and are negative. [facility] 01-25-2023 Note [facility] Electrophysiology Consult Note Reason for visit: new to SAADIA, ariadne HPI: Radha Gutiérrez is a 77 y.o. year old with past medical history of Chronic HFrEF EF 35% per echo 05/2022, nonobstructive coronary arteries per cath 01/05/2023, chronic MORIN which is recently worsened, Watchman procedure 2018 due to high risk bleed related to GI bleed She was referred by Dr. Jefferson for her A-fib. She was following [facility] and self-referred to [facility] cardiology for second opinion. She recently [...] rash, no ulcer, (more content not included)... [facility] 01-18-2023 Note [facility] Clinic Note Chief Complaint: Patient [...] TTE 06/08/22 Nonischemic cardiomyopathy Normal coronaries by [facility] 2013 and 2022 Mitral regurgitation, moderate by TTE 05/2022 Persistent atrial fibrillation s/p repeat ca (more content not included)... [facility] 01-05-2023 Note Cardiovascular Labor atory Report [...] left radial artery was obtained. A 6 Indonesian glide sheath was inserted without difficulty. Bilateral [...] fraction, heart failure with reduced ejection fraction [facility] 07-23-2022 Note PAIN MANAGEMENT CONS ULTATION [...] months' time or sooner if needed. [facility] 03-26-2022 Note CONSULTATION CONSULTATION DATE: [...] agrees with the plan of care. [facility] 12-24-2021 Note CONSULTATION PROCEDURE DATE: [...] the procedure well with no complications. [facility] 12-24-2021 Note CONSULTATION CONSULTATION DATE: [...] three months' time, unless otherwise indicated. [facility] Evaluation note Diagnosis Essential hypertension- Primary Unspecified essential hypertension documented in this encounter [facility] SystemInstructionsNot on filedocumented in this encounter [facility] Summary Purpose Family History No Family History Records FoundNo Family History Records FoundNo Family History Records FoundNo Family History Records Found Advance Directives No Advanced Directives Records FoundNo Advanced Directives Records FoundNo Advanced Directives Records FoundNo Advanced Directives Records Found Additional Source Comments INFORMATION SOURCE (unrecogn ized section and content) DATE CREATED AUTHOR 07/25/2020 Travis Cordova [facility] DATE CREATED AUTHOR AUTHOR'S ORGANIZ ATION 10/12/2022 [facility] DATE CREATED AUTHOR AUTHOR'S ORGANIZ ATION 11/12/2023 [facility] EPIC DATE CREATED AUTHOR AUTHOR'S ORGANIZ ATION 12/19/2023 [facility] Reason for Visit (unrecogniz ed section and content) Reason Comments Med Refill Care Teams (unrecognized sec tion and content) Financial Services Assistant Relationship Specialty Start Date End Date Heaven Staley, JIG AND FIXTURE BUILDER-LABORER RAGS [address] [facility] [place] [address] PCP - General Family Medicine 10/30/21 FOR [...] BE BASED ON THE PRIMARY CLINICAL RECORDS. [employer]. provides no warranty or guarantee of the accuracy or completeness of information in this document.
== END 2023-12-20 11:24 | disposition home or self-care (01) ==
LOC: LAB 11:26
PROVIDERS: PCP Nurse Practitioner Family; Visit Provider Psychiatry & Neurology Neurology
DX: R20.2 Paresthesia of skin (principal); G25.81 Restless legs syndrome
CPT/HCPCS: 36415; 82728

== ENCOUNTER 2023-12-23 08:26 | Outpatient (OUT) | payer MEDICARE, SELFPAY ==
--- NOTE | 2023-12-23 08:32 | P.CN_ITS ---
Consult Note: HPI Data of Consult Patient: known to practice within the last 3 years Requesting Physician: Carmen Ramey NP Primary Care Provider: FIDELINA STALEY Consult Narrative Reason for consult: f/u Narrative: Radha Cornell a pleasant 78 year old female presents for evaluation and management of chronic low back pain. Pain today 10/10 ache which numbness tingling of bilateral legs, left greater than right, increased with all activity and decreased with lying down and heat. Patient has found mild benefit to current medication regimen, however she had to stop pregabalin 50mg due to drowsiness brain fog and severe shaking. No recent advanced imaging available. Recent caudal FARIBA providing no relief. cc:: CC: Carmen Ramey NP Review of Systems ROS Status of ROS 10 or more systems reviewed and unremark able except as noted in history and below Musculoskeletal Reports: back pain and extremity pain PFSH PFSH Medical History Rectocele ?N81.6 - Rectocele (ICD-10) Bruising ?T14.8XXA - Other injury of unspecified body region, initial encounter (ICD- 10) Anemia ?D64.9 - Anemia, unspecified (ICD-10) Upper back pain ?M54.9 - Dorsalgia, unspecified (ICD-10) Neck pain ?M54.2 - Cervicalgia (ICD-10) Low back pain ?M54.50 - Low back pain, unspecified (ICD-10) Fibromyalgia ?M79.7 - Fibromyalgia (ICD-10) Heartburn ?R12 - Heartburn (ICD-10) Acid reflux ?K21.9 - Gastro-esophageal reflux disease without esophagitis (ICD-10) Sleep apnea ?G47.30 - Sleep apnea, unspecified (ICD-10) Atrial fibrillation ?I48.91 - Unspecified atrial fibrillation (ICD-10) Surgical History S/P lumbar spine operation ?Z98.890 - Other specified postprocedural states (ICD-10) S/P shoulder surgery ?Z98.890 - Other specified postprocedural states (ICD-10) History of bariatric surgery ?Z98.84 - Bariatric surgery status (ICD-10) H/O heart surgery ?Z98.890 - Other specified postprocedural states (ICD-10) H/O: hysterectomy ?Z90.710 - Acquired absence of both cervix and uterus (ICD-10) Hx of cholecystectomy ?Z90.49 - Acquired absence of other specified parts of digestive tract (ICD- 10) Meds Home Medications and Allergies Home Medications ?Medication ?Instructions ?Recorded ?Confirmed ?Type cholecalciferol (vitamin D3) 125 5,000 unit PO DAILY 11/03/22 12/14/23 History mcg (5,000 unit) capsule furosemide 40 mg tablet (Lasix) 40 mg PO BID 11/03/22 12/14/23 History krill 2 cap PO DAILY 11/03/22 12/14/23 History cqy-ab0-evz-wmp-xo3-adk-astax 1,500 mg-165 mg-67.5 mg capsule losartan 25 mg tablet 25 mg PO DAILY 11/03/22 12/14/23 History metoprolol succinate 25 mg 12.5 mg PO BID 11/03/22 12/14/23 History tablet,extended release 24 hr multivitamin 1 tab PO DAILY 11/03/22 12/14/23 History pantoprazole 40 mg tablet,delayed 40 mg PO BID 11/03/22 12/14/23 History release (Protonix) pramipexole 1 mg tablet (Mirapex) 1 mg PO DAILY 11/03/22 12/14/23 History trazodone 50 mg tablet 50 mg PO DAILY 11/03/22 12/14/23 History vitamin B complex 1 cap PO DAILY 11/03/22 12/14/23 History naloxone 4 mg/actuation nasal 4 mg intranasal Q3M PRN opioid 02/11/23 12/14/23 Rx spray (Narcan) overdose #2 ea baclofen 10 mg tablet 10 mg PO BID PRN muscle spasm #60 07/28/23 12/14/23 Rx tabs oxycodone-acetaminophen 5 mg-325 1 tab PO TID PRN pain #90 tabs 09/09/23 12/14/23 Rx mg tablet (Percocet) pregabalin 50 mg capsule (Lyrica) 50 mg PO DAILY 10/27/23 12/14/23 History oxycodone-acetaminophen 5 mg-325 1 tab PO TID PRN pain #90 tabs 11/15/23 12/14/23 Rx mg tablet (Percocet) baclofen 10 mg tablet See Rx Instructions .Route 12/15/23 Rx .COMPLEX #60 tabs oxycodone-acetaminophen 5 mg-325 1 tab PO TID PRN pain #90 tabs 12/15/23 Rx mg tablet (Percocet) Allergies Allergy/AdvReac Type Severity Reaction Status Date / Time codeine Allergy Mild Hives Verified 12/14/23 10:23 pregabalin [From Lyrica] Allergy Shakiness Verified 12/14/23 10:23 Exam Constitutional Documenting provider has reviewed patient's vital signs: yes Common normals: no apparent distress, oriented x3, healthy appearing, alert and well nourished General appearance: cooperative HENMT Common normals: normocephalic, hearing grossly normal bilaterally and moist oral mucous membranes Head and scalp: normocephalic Eye Common normals: PERRL Pupil: PERRL Neck & C-Spine Common normals: full ROM General: normal visual inspection Chest Common normals: inspection of chest normal Respiratory Common normals: normal respiratory effort, no retractions and no use of accessory muscles Back & Pelvis Lumbar spine/lower back: ROM limited, pain with ROM and straight leg raise positive left Other: facet loading negative tender to touch and pain with activity over left superior gluteal nerve positive fabers to left, pain with gaenslen and thigh thrust pain following l4/5 l5/s1 dermatomal pattern on left, decreased sensation noted Extremity Common normals: normal to inspection and full ROM Neuro Common normals: oriented x3, CN's II-XII intact bilaterally, moves all extremities, no focal motor deficits, no sensory deficits noted and deep tendon reflexes 2+ bilaterally Sensorium/orientation: alert Motor exam: strength 5/5 throughout and no movement abnormalities noted Psych Common normals: mental status grossly normal, thought process normal, cooperative, affect normal, speech normal and activity/motor behavior normal Speech: normal speech Thought process: normal thought process Results Additional Findings Additional findings: If on a controlled substance or opioids, I have checked an [place] report on this patient and there are no aberrancies noted in the prescribing history.??If on a controlled substance or opioid a drug screen was completed and reviewed within the last year, and if there has not been a drug screen completed we ordered one today to monitor higher risk, state monitored pain medication use. As part of providing excellent, safe, comprehensive care, the following was completed at our patient's visit: 1. A medication reconciliation and review to ensure accurate knowledge of current/active medications, including asking our patients to inform us about any [id number] medications or herbal remedies/nutritional supplements/alternative remedies. 2. A review to specifically ensure our patients have had annual screening for screening for depression, screening for tobacco use, and screening for unhealthy alcohol use. For concerning screenings had a discussion with the patient, provided patient education, and recommended follow-up with primary care provider when appropriate. If patient noted with a risk of falling, they received education on strength, gait, and balance training to prevent future risk of falling. Assessment and Plan Assessment and Plan (1) Lumbar radiculopathy: (2) Post laminectomy syndrome: (3) Lumbar spondylosis: (4) Muscle spasm: (5) Chronic prescription opiate use: Assessment and Plan: I feel these medications are improving the patient's quality of life and allow them to tolerate activities of daily living as well as participate in recreational activity.? The patient does not report intolerable side effects. The patient is NOT opioid naive and non-pharmacologic and non-opioid treatment has failed to significantly relieve the patient's pain and improve functionality. The patient has a diagnosis that is related to a somatic or visceral pain etiology. ? ?? I reviewed with the patient the potential risks and side effects with the use of? opioid medications including but not limited to respiratory depression,? sedation, and even . I verified the patient has access to naloxone should? these effects occur. I advised the patient to avoid the use of any other? sedation substances including alcohol, THC, and benzodiazepines while? taking opioid medications due to the risk of compounding side effects and? detrimental outcomes. I reviewed the SUSTAINABLE DESIGN COORDINATOR, pain treatment agreement, urine? drug screen, and opioid start talking forms. The patient was advised to let? their family know they had Naloxone in case they would need to administer? the medication.? ?? A drug screen was completed within the last year, and no aberrancies were noted regarding their use of controlled substances. The patient understands they are subject to the terms and conditions of the pain contract that they have signed. ? ?? I have checked an [place] report on this patient today and there are no aberrancies noted in the prescribing history.? (6) Unspecified mononeuropathy of left lower limb: Assessment and Plan: consider left superior gluteal nerve block working towards thermal RFA for left superior gluteal neuritis if pain persists Plan update CT of lumbar spine stopped pregabalin, start zonegran 50mg HS. risks vs benefits reviewed continue current medications, can take baclofen 5-10mg BID PRN narcan previously prescribed and discussed continue f/u with cardiology, pacemaker f/u to review CT
--- OUTSIDE RECORDS SUMMARY | 2023-12-23 08:32 | XMS_ITS ---
Patient Summarization (C-CDA 2.1 CCD) Created on: December 23, 2023 RADHA GUTIÉRREZ : 1945 Sex: Female Author Organization Sample organization Care Team Providers Care Leather Sprayer Name Role Phone JOHNSON ., DR JAYLON Ruelas Admitting Unavailable ORNELAS ., DR JAYLON Ruelas Attending Unavailable [facility] Primary Care Unavailable ORNELAS ., DR JAYLON Ruelas Consulting Unavailable MICHELINE MOLINA Consulting Unavailable ORNELAS ., DR JAYLON Ruelas Admitting Unavailable ORNELAS ., DR JAYLON Ruelas Attending Unavailable [facility] Care Unavailable RODRIGUEZ ., SABRINA Consulting Unavailable ORNELAS ., DR JAYLON Ruelas Admitting Unavailable ORNELAS ., DR JAYLON Ruelas Attending Unavailable [facility] Primary Care Unavailable RODRIGUEZ ., SABRINA Consulting Unavailable [facility] Primary Care Unavailable LAKSHMIPATHY ., NARENDRANATH Admitting Charity vailable LAKSHMIPATHY ., NARENDRANATH Attending Charity vailable LAKSHMIPATHY ., NARENDRANATH Consulting Charity vailable LAKSHMIPATHY ., NARENDRANATH Admitting Charity vailable LAKSHMIPATHY ., NARENDRANATH Attending Charity vailable [facility] Primary Care Unavailable [facility] Admitting Unavailable LUÍS, HEAVEN Attending Unavailable [facility] Primary Care Unavailable DR OSWALDO VALENZUELA Consulting Unavailable LUÍS, HEAVEN Consulting Unavailable [facility] Primary Care Unavailable DAREK ., KEILY Admitting Unavailable DAREK ., KELIY Attending Unavailable DAREK ., KEILY Consulting Unavailable KELSIE DEL ANGEL Consulting Unavailable [facility] Steven Primary Care Provider ROBERT MADDEN Attending Unavailable ROBERT MADDEN Referring Unavailable ROBERT MADDEN Referring Unavailable DIANA, SHAYY Referring Unavailable ROBERT MADDEN Referring Unavailable ROBERT MADDEN Referring Unavailable DIANA, SHAYY Referring Unavailable ROBERT MADDEN Admitting Unavailable ROBERT MADDEN Attending Unavailable ROBERT MADDEN Referring Unavailable ROBERT MADDEN Referring Unavailable ADELAIDA RIZO Attending Unavailable [facility]AB Referring Unavailable NAVID, ROBERT Referring Unavailable ADELAIDA RIZO Attending Unavailable NAVID, ROBERT Attending Unavailable NAVID, ROBERT Referring Unavailable ELTAHAWY, EHAB Attending Unavailable VIRGIL FOLEY Attending Unavailable NAVID, ROBERT Referring Unavailable NAVID, ROBERT Admitting Unavailable NAVID, ROBERT Attending Unavailable ELTAHAWY, EHAB Admitting Unavailable [facility], EHAB Attending Unavailable OSWALDO GARCÍA Attending Unavailable SANDIE PAGE Attending Unavailable HEAVEN STALEY Referring Unavailable Allergies Allergy Classification Reported Allergen(s) Allergy Type Date of Onset Reaction(s) Facility (2 sources) Codeine; Translations: [CODEINE] Drug Allergy 06-06-2014 [facility] (1 source) Codeine Drug Allergy 06-06-2014 [facility] (2 sources) Lisinopril; Translations: [LISINOPRIL] Drug Allergy 10-19-2014 [facility] (1 source) pregabalin; Translations: [PREGABALIN] Drug Allergy 12-01-2023 [facility] Encounters Encounter Date Encounter Type Care Provider Facility Start: 12-20-2023 End: 12-20-2023 ambulatory SANDIE PAGE Not Available Start: 12-16-2023 ambulatory ROBETR [facility] Start: 12-01-2023 End: 12-01-2023 ambulatory ADELAIDA RIZO [facility] Start: 11-25-2023 ambulatory [facility] Start: 11-25-2023 Encounter for preprocedural cardiovascular examination [facility] Start: 11-24-2023 ambulatory [facility] Start: 11-23-2023 ambulatory [facility] Start: 11-11-2023 End: 11-11-2023 ambulatory OSWALDO GARCÍA Not Available Start: 11-01-2023 ambulatory [facility] Start: 11-01-2023 End: 11-01-2023 ambulatory [facility] Start: 08-10-2023 End: 08-10-2023 ambulatory [facility] Start: 07-14-2023 End: 07-14-2023 ambulatory ADELAIDA RIZO [facility] Start: 07-05-2023 ambulatory [facility] Start: 07-05-2023 End: 07-05-2023 ambulatory [facility] Start: 06-05-2023 Refill Mac 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 Comment on above: Med Refill Start: 05-18-2023 End: 05-18-2023 ambulatory [facility] Start: 03-23-2023 End: 03-26-2023 ambulatory [facility] Start: 01-25-2023 End: 01-25-2023 ambulatory [facility] Start: 01-18-2023 End: 01-18-2023 ambulatory [facility] Start: 01-05-2023 End: 01-05-2023 ambulatory [facility] Start: 09-22-2022 End: 09-23-2022 ambulatory HEAVEN STALEY Facility:H1 Start: 07-23-2022 End: 07-24-2022 ambulatory HEAVEN STALEY Facility:[facility] Start: 05-17-2022 End: 05-17-2022 ambulatory HEAVEN STALEY Facility:[facility] Start: 03-26-2022 End: 03-27-[address] JAYLON ORNELAS . Facility:[facility] Start: 12-24-2021 End: 12-25-[address] JAYLON ORNELAS . Facility:[facility] Start: 11-04-2021 End: 11-04-[address] JAYLON ORNELAS . Facility:[facility]1 Medical Equipment Procedure Code Equipment Code Equipment Origin al Text Equipment Identifier Dates Mesh [id number] 3d Rect Plstr Clgn Symbotex 2 Sd Comp Mfl Babsr Rpl [id number] - Sna - [id number] Start: 06-30-2022 Dev Clsr 30fr Watchman 30mm - [id number] Start: 10-28-2018 Immunizations Immunization Date Immunization Notes Care Provider Tutu rehman 05-08-2021 influenza virus vaccine, unspecified formulation Mac Erwin APRN-VICKIE Work Phone: [employer] Medications Current Medications Medication Drug Class(es) Dates [...] 30 tablet 1 06/08/2023 Active lactobacillus acidophilus [id number] unt oral capsule (1 source) take 1 [...] Indications: Chronic systolic CHF (congestive heart failure) ([facility]) Take 1 tablet (25 mg total) [...] the morning. 45 tablet 3 08/10/2022 Active Payers Date Payer Category Payer Medicare HUMANA MEDICARE HUMANA MEDICARE - [place] [id number] 2013-Present [phone] [address] [address] [place] [address] [id number] 1959 Medicare [id number] 1945 Unknown [id number] 1945 Unknown [id number] 1945 Unknown [id number] 1945 Unknown [id number] 1945 Unknown [id number] 1945 Unknown [id number] 1945 Unknown [id number] 1945 Unknown [id number] 9 1945 Unknown [id number] 9 Plan of Treatment Date Care Activity Detail Author Start: 08-25-2023 Adult BMI Screening Adult BMI Screen [facility] Start: 08-25-2023 Tobacco Screening Tobacco Screening [facility] Start: 01-29-2023 COVID-19 Vaccine ( season) COVID-19 Vaccine () [facility] Start: 01-29-2023 Influenza vaccination Influenza Vacc ine [facility] Start: 11-03-2022 ambulatory Ambulatory Facility:H 1 Start: 2010 Fall Risk Screening Fall Risk Screen ing [facility] Start: 1995 Administration of varicella zoster vaccine Zoster (Shingles) Vaccine (1 of 2) [facility] Start: 1964 DTaP,Tdap and Td Vac cines (1 - Tdap) DTaP,Tdap and Td Vaccines (1 - Tdap) [facility] Start: 1963 Adult BMI Follow Up Plan Adult BMI Follow Up Plan [facility] Start: 1957 Depression Screening Depression Scre ening [facility] Start: 1945 Medicare Annual Well ness Visit Medicare Annual Wellness Visit [facility] End: 06-08-2024 Basic metabolic 2000 panel - Serum or Plasma Basic Metabolic Panel Lab Routine Essential hypertension 1 Occurrences starting 06/08/2023 until 06/08/2024 [facility] Work Phone: Comment on above: 1 Occurrences starti ng 06/08/2023 until 06/08/2024 Problems Active Problems Problem Classification Problem Date [...] 10-11-2020 Episodic Other aftercare (1 source) Other senior care (current) drug therapy; Translations: [OTH RESIDENTIAL CURRENT DRUG THERAPY] Onset: 05-19-2022 Episodic Other [...] Range Facility Office Visiton 12-01-2023 Follow-up visit [id number] Radha Gutiérrez 1945 F Date Provider Department Center 12/01/2023 Jonna-ADELAIDA RIZO [facility] Family History Problem Relation Age of Onset Heart failure Father Family Status - Relation Status Age at Father Level of Service:61796 [place] POSTOP FOLLOW UP VISIT RELATED TO ORIGINAL PX Normal [facility] HPon 11-01-2023 [facility] Electrophysiology Consult Note Reason for visit: [...] GI bleed. [facility] She was initially seen by Dr. [...] on file Intimate Partner Violence: Unknown (07/23/2023) [place] Fear of Current or [...] 50 mg tab (more content not included)... [facility] NURSNOTEwill 11-01-2023 NURSNOTE RN educated pt on d/ c instructions. RN encouraged pt to voice any questions or concerns. Pt verbalizes no questions or concerns at this time. Normal [facility] Orders Onlyon 10-22-2023 Orders Only [id number] Radha Gutiérrez 1945 F Date Provider Department Center 10/22/2023 DEMOND RAMOS [facility] [place] [facility] Family History Problem Relation Age of Onset Heart failure Father Family Status - Relation Status Age at Father Normal [facility] Orders Onlyon 08-27-2023 Orders Only [id number] Radha Gutiérrez 1945 F Date Provider Department Center 08/27/2023 LEATHA BAHENA MAGNUS [place] Family History Problem Relation Age of Onset Heart failure Father Family Status - Relation Status Age at Father [facility] Office Visiton 07-14-2023 Follow-up visit [id number] Radha Gutiérrez 1945 F Date Provider Department Center 07/14/2023 JonnaHenriettaADELAIDA RIZO MAGNUS [place] Family History Problem Relation Age of Onset Heart failure Father Family Status - Relation Status Age at Father Level of Service:80381 [place] POSTOP FOLLOW UP VISIT RELATED TO ORIGINAL PX [facility] HPon 07-05-2023 [facility] Electrophysiology Consult Note Reason for visit: [...] GI bleed. [facility] was [facility]. She was initially seen by Dr. [...] Appearance: well-nourished, we (more content not included)... [facility] NURSNOTEon 07-05-2023 NURSNOTE CHG wipes and betadine nasal swabs completed. [facility] NURSNOTE RN educated pt on d/ c instructions. RN encouraged pt to voice any questions or concerns. Pt verbalizes no questions or concerns at this time. Pt was wheeled off of unit with all of belongings. [facility] Orders Onlyon 07-05-2023 Orders Only [id number] Radha Gutiérrez 1945 F Date Provider Department Center 07/05/2023 ELENA ATWOOD [facility] [place] [facility] Family History Problem Relation Age of Onset Heart failure Father Family Status - Relation Status Age at Father [facility] Office Visiton 05-18-2023 Follow-up visit [id number] Radha Gutiérrez 1945 F Date Provider Department Center 05/18/2023 MonyNAVIDROBERT LAFLEUR [facility] Family History Problem Relation Age of Onset Heart failure Father Family Status - Relation Status Age at Father Level of Service:83232 [place] OFFICE/OUTPATIENT ESTABLISHED MOD MDM 30 MIN (GC) Normal [facility] Office Visiton 03-23-2023 Follow-up visit [id number] Radha Gutiérrez 1945 Provider Department Center 03/23/2023 ROBERT GEE [facility] Family History Problem Relation Age of Onset Heart failure Father Family Status - Relation Status Age at Father Level of Service:49941 [place] OFFICE/OUTPATIENT NEW MODERATE MDM 45-59 MINUTES Normal [facility] Office Visiton 01-25-2023 Follow-up visit [id number] Radha Gutiérrez 1945 Provider Department Center 01/25/2023 VIRGIL RODNEY MAGNUS [facility] Family History Problem Relation Age of Onset Heart failure Father Family Status - Relation Status Age at Father Level of Service:74266 [place] OFFICE/OUTPATIENT ESTABLISHED MOD MDM 30-39 MIN Normal [facility] Office Visiton 01-18-2023 Follow-up visit [id number] Radha Gutiérrez 1945 Provider Department Center 01/18/2023 MATT BARRERA RAQUEL [facility] Family History Problem Relation Age of Onset Heart failure Father Family Status - Relation Status Age at Father Level of Service:66761 [place] OFFICE/OUTPATIENT ESTABLISHED MOD MDM 30-39 MIN Normal [facility] Marlene 01-05-2023 ANES - Attestation signed by Matt Jefferson MD at 01/05/2023 9:33 AM Matt Jefferson MD, MPH, FACC, [facility], FSVM Interventional Cardiology Pager Email: [email or web address] Patient: Radha Gutiérrez Procedure Information Date/Time: 01/05/23929 Procedure: Coronary angiography (Left) Location: [facility] FABRICATION SUPERVISOR 3 / [facility] (Cath) Providers: Matt Jefferson [...] discussed with attending. Additional Equipment Requests Normal [facility] CBCon 01-05-2023 Erythrocyte distribution width (RBC) [Ratio] 14.8 % Normal 11.5-15.0 [facility] Comment on above: Performed By: #### L [id number] ####[facility] (BEAKER)[address] [place] [address] ERYTHROCYTE MEAN CORPUSCULAR HEMOGLOBIN CONCENTRATION (G/DL) BY AUTOMATED 31.4 g/dL Low 32.0-35.0 [facility] Comment on above: Performed By: #### L [id number] ####[facility] (BEAKER)[address] [place] [address] Hematocrit (Bld) [Volume fraction] 42.0 % Normal 36.0-48.0 [facility] Comment on above: Performed By: #### L [id number] ####[facility] (BEAKER)[address] [place] [address] Hemoglobin (Bld) [Mass/Vol] 13.2 g/dL Normal 12.0-15.0 [facility] Comment on above: Performed By: #### L [id number] ####[facility] (BEAKER)[address] [place] [address] MCH (RBC) [Entitic mass] 30.3 pg Normal 27.0-33.0 [facility] Comment on above: Performed By: #### L [id number] ####[facility] ([facility])[address] [place] [address] MCV (RBC) [Entitic vol] 96.3 fL Normal 82.0-98.0 [facility] Comment on above: Performed By: #### L [id number] ####[facility] ([facility])[address] [place] [address] PLATELETS (10*3/UL) IN BLOOD AUTOMATED COUNT 231 10*3/uL Normal 150-400 [facility] Comment on above: Performed By: #### L [id number] ####[facility] ([facility])[address] [place] [address] RBC (Bld) [#/Vol] 4.36 10*6/uL Normal 3.80-5.00 [facility] Comment on above: Performed By: #### L [id number] ####[facility] ([facility])[address] [place] [address] WBC (Bld) [#/Vol] 8.83 10*3/uL Normal 4.00-10.60 [facility] Comment on above: Performed By: #### L [id number] ####[facility] ([facility])[address] [place] [address] HPon 01-05-2023 HP - Attestation signed by [...] documentation from me. Matt Jefferson MD, MPH, [facility], [facility], [facility] Interventional Cardiology Pager Email: [email or web address] History Of Present Illness Radha Gutiérrez is a 77 y.o. female with history of Afib, CKD III, nonischemic cardiomyopathy, with new drop of EF from 40-45% to 35% presenting for coronary angiography. Patient was evaluated in office in October 2022 for second opinion. She was referred for stress test which was reportedly positive (done in [facility]). Patient reports exertional shortness of breath and [...] SpO2 100 %. 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 Normal [facility] NURSNOTEon 01-05-2023 NURSNOTE RN educated pt on d/ c instructions. RN encouraged pt to voice any questions or concerns. Pt verbalizes no questions or concerns at this time. Pt was wheeled off of unit with all of belongings. Normal [facility] INSULINon 09-23-2022 Insulin 7.9 uIU/mL Normal 2.6-24.9 [facility] Comment on above: Performed By: #### I NSULIN ####[facility] [address] [place], [place] [address]DrViky Dior CBC AUTO DIFFon 09-22-2022 BASO # 0.0 103/ul Normal 0.0-0.1 [facility] Comment on above: Performed By: #### C BC ####[facility] [address] [place], [place] [address]Dr. Ravin Dior Basophils/100 WBC (Bld) 0.4 % Normal 0.2-2.0 [facility] Comment on above: Performed By: #### C BC ####[facility] [address] [place], [place] [address]Dr. Ravin Dior EO # 0.6 103/ul Normal 0.0-0.7 [facility] Comment on above: Performed By: #### C BC ####[facility] [address] [place], [place] [address]DrViky Dior Eosinophils/100 WBC (Bld) 6.6 % Normal 0.9-7.0 [facility] Comment on above: Performed By: #### C BC ####[facility] [address] [place], [place] [address]DrViky Dior Erythrocyte distribution width (RBC) [Ratio] 16.2 % Critically high 11.0-15.0 [facility] Comment on above: Performed By: #### C BC ####[facility] [address] [place] [address]Dr. Ravin Dior Hematocrit (Bld) [Volume fraction] 43.3 % Normal 36.0-48.0 [facility] Comment on above: Performed By: #### C BC ####[facility] [address] [place], [place] [address]Dr. Ravin Dior Hemoglobin (Bld) [Mass/Vol] 13.4 g/dL Normal 12.0-16.0 [facility] Comment on above: Performed By: #### C BC ####[facility] [address] [place], [place] [address]Dr. Novalilliana Dior IG # 0.05 10e3/ul Critically high 0.00-0.03 [facility] Comment on above: Performed By: #### C BC ####[facility] [address] [place], [place] [address]Dr. Ravin Dior IG % 0.5 % Normal 0.0-0.5 [facility] Comment on above: Performed By: #### C BC ####[facility] [address] [place], [place] [address]Dr. Ravin Ovi LYMPH # 2.1 103/ul Normal 1.2-3.8 [facility] Comment on above: Performed By: #### C BC ####[facility] [address] [place], [place] [address]Dr. Ravin Ovi Lymphocytes/100 WBC (Bld) 23.1 % Normal 20.5-60.0 [facility] Comment on above: Performed By: #### C BC ####[facility] [address] [place], [place] [address]Dr. Novalilliana Dior MANUAL DIFF REQ NO Normal [facility] Comment on above: Performed By: #### C BC ####[facility] [address] [place], [place] [address]Dr. Ravin Dior MCH (RBC) [Entitic mass] 29.5 pg Normal 26.7-34.0 [facility] Comment on above: Performed By: #### C BC ####[facility] [address] [place] [address]Dr. Ravin Dior MCHC (RBC) [Mass/Vol] 30.9 g/dL Normal 29.9-35.2 [facility] Comment on above: Performed By: #### C BC ####[facility] [address] [place], [place] [address]Dr. Ravin Ovi MCV (RBC) [Entitic vol] 95.4 fL Normal 81.0-99.0 [facility] Comment on above: Performed By: #### C BC ####[facility] [address] [place], [place] [address]Dr. Ravin Dior MONO # 0.5 103/ul Normal 0.3-0.8 [facility] Comment on above: Performed By: #### C BC ####[facility] [address] [place], [place] [address]Dr. Ravin Dior Monocytes/100 WBC (Bld) 5.8 % Normal 1.7-12.0 [facility] Comment on above: Performed By: #### C BC ####[facility] [address] [place], [place] [address]Dr. Novalilliana Dior NEUT # 5.8 103/ul Normal 1.4-6.5 [facility] Comment on above: Performed By: #### C BC ####[facility] [address] [place], [place] [address]Dr. Ravin Dior Neutrophils/100 WBC (Bld) 63.6 % Normal 43.0-75.0 [facility] Comment on above: Performed By: #### C BC ####[facility] [address] [place], [place] [address]Dr. Ravin Dior Platelet mean volume (Bld) [Entitic vol] 10.7 fL Normal 9.5-13.5 [facility] Comment on above: Performed By: #### C BC ####[facility] [address] [place] [address]Bo. Ravin Dior PLT 223 103/ul Normal 150-450 [facility] Comment on above: Performed By: #### C BC ####[facility] [address] [place] [address]Dr. Ravin Doir RBC 4.54 106/ul Normal 4.20-5.40 [facility] Comment on above: Performed By: #### C BC ####[facility] [address] [place] [address]Dr. Ravin Dior WBC 9.2 103/ul Normal 4.0-11.0 [facility] Comment on above: Performed By: #### C BC ####[facility] [address] [place] [address]DrViky Dior FREE THYROXINE INDEX T7on FTI 2.44 Normal 1.30-4.50 [facility] Comment on above: Performed By: #### C MP, T7, TSH, LIPID #### [facility] [address] [place] [address] [address] Ravin Dior T3U 33.0 % Normal 30.0-39.0 [facility] Comment on above: Performed By: #### C MP, T7, TSH, LIPID #### [facility] [address] [place] [address] [address] Ravin Dior T4 [Mass/Vol] 7.40 ug/dL Normal 4.80-13.90 [facility] Comment on above: Performed By: #### C MP, T7, TSH, LIPID #### [facility] [address] [place] [address] [address] Ravin Dior GLYCOHEMOGLOBIN A1Con 2022 ADA RECOMMENDATION SEE BELOW Normal [facility] Comment on above: Result Comment: ADA RECOMMENDED LIMIT 4.0 - 6.0 ADA THERAPEUTIC TARGET < 7.0 ACTION SUGGESTED > 7.0 Performed By: #### A 1C ####[facility] [address] [place] [address]Dr. Ravin Dior Glucose [Mass/Vol] 105 mg/dL Normal [facility] Comment on above: Performed By: #### A 1C ####[facility] [address] [place] [id number]. Ravin Dior HbA1c (Bld) [Mass fraction] 5.3 % Normal 4.5-6.2 [facility] Comment on above: Performed By: #### A 1C ####[facility] [address] [place] [id number]. Ravin Dior IRONon 09-22-2022 Iron [Mass/Vol] 81.0 ug/dL Normal 50.0-170.[address] [facility] Comment on above: Performed By: #### I SEAMUS ####[facility] [address] [place] [id number]. Ravin Dior LIPID PROFILEon 09-22-2022 CHOL-HDL RATIO NORM SEE BELOW Normal [facility] Comment on above: Result Comment: 3.3 - 4.4 LOW RISK 4.4 - 7.1 AVERAGE RISK 7.1 - 11.0 MODERATE RISK >11.0 HIGH RISK Performed By: #### C MP, T7, TSH, LIPID ####[facility] [address] [place] [id number]. Ravin Dior Cholesterol [Mass/Vol] 159 mg/dL Normal <=200 [facility] Comment on above: Performed By: #### C MP, T7, TSH, LIPID ####[facility] [address] [place] [id number]. Ravin Dior Cholesterol in HDL [Mass/Vol] 47 mg/dL Normal 40-60 [facility] Comment on above: Performed By: #### C MP, T7, TSH, LIPID ####[facility] [address] [place] [id number]. Ravin Dior Cholesterol in LDL [Mass/Vol] 96.4 mg/dL Normal [facility] Comment on above: Performed By: #### C MP, T7, TSH, LIPID ####[facility] [address] [place] [id number]. Ravin Dior Cholesterol.total/Cho lesterol in HDL [Mass ratio] 3.4 {ratio} Normal [facility] Comment on above: Performed By: #### C MP, T7, TSH, LIPID ####[facility] [address] [place] [id number]. Ravin Dior HDL NORMAL > or = 60 mg/dl - LO W CARDIOVASCULAR RISK <40 mg/dl - HIGH CARDIOVASCULAR RISK Normal [facility] Comment on above: Performed By: #### C MP, T7, TSH, LIPID ####[facility] [address] [place] [id number]. Ravin Dior LDL CALC NORMAL SEE BELOW Normal [facility] Comment on above: Result Comment: <100 mg/dl OPTIMAL 100 - 129 mg/dl NEAR OR ABOVE OPTIMAL 130 - 159 mg/dl BORDERLINE HIGH 160 - 189 mg/dl HIGH >190 mg/dl VERY HIGH Performed By: #### C MP, T7, TSH, LIPID ####[facility] [id number] [place] [id number]. Ravin Dior Triglyceride [Mass/Vol] 78 mg/dL Normal <=150 [facility] Comment on above: Performed By: #### C MP, T7, TSH, LIPID ####[facility] [address] [id number]. Ravin Dior VLDL CALC 15.6 mg/dL Normal [facility] Comment on above: Performed By: #### C MP, T7, TSH, LIPID ####[facility] [address] [id number]. Ravin Dior MG MAMM SCREEN 3D NIKOS CADon 09-22-2022 MG MAMM SCREEN 3D NIKOS CAD Patient: RADHA GUTIÉRREZ Exam Date: 09/22/2022 : 1945 Gender:F Ordering : [facility] Admission #: [id number] Family : Order #: [id number] CLICK HERE TO VIEW EXAM RADIOLOGY REPORT [...] Treatments None Family Cancers None LOCATION: [facility] BREAST COMPOSITION: Almost entirely fatty. FINDINGS: DIAGNOSTIC [...] Valenzuela M.D. on 09/22/2022 at 17:02 Normal [facility] PROF 14(COMP METB)on 023 Albumin [Mass/Vol] 3.3 g/dL Critically low 3.4-5.0 [facility] Comment on above: Performed By: #### C MP, T7, TSH, LIPID #### [facility] [address] [address] [address] Ravin Dior Albumin/Globulin [Mass ratio] 0.7 {ratio} Normal [facility] Comment on above: Performed By: #### C MP, T7, TSH, LIPID #### [facility] [address] [address] [address] Ravin Dior ALP [Catalytic activity/Vol] 207 U/L Critically high 46-116 [facility] Comment on above: Performed By: #### C MP, T7, TSH, LIPID #### [facility] [address] [address] [address] Ravin Dior ALT [Catalytic activity/Vol] 47 U/L Normal 14-59 [facility] Comment on above: Performed By: #### C MP, T7, TSH, LIPID #### [facility] [address] [address] [address] Ravin Dior Anion gap [Moles/Vol] 11.5 mmol/L Normal [facility] Comment on above: Performed By: #### C MP, T7, TSH, LIPID #### [facility] [address] [address] [address] Ravin Dior AST [Catalytic activity/Vol] 35 U/L Normal 15-37 [facility] Comment on above: Performed By: #### C MP, T7, TSH, LIPID #### [facility] [address] [address] [address] Ravin Dior Bilirubin [Mass/Vol] 0.6 mg/dL Normal 0.2-1.0 [facility] Comment on above: Performed By: #### C MP, T7, TSH, LIPID #### [facility] [address] [address] [address] Ravin Dior Calcium [Mass/Vol] 9.2 mg/dL Normal 8.5-10.1 [facility] Comment on above: Performed By: #### C MP, T7, TSH, LIPID #### [facility] [address] [place] [address] Dr. Ravin Dior Chloride [Moles/Vol] 109 mmol/L Critically high 98-107 [facility] Comment on above: Performed By: #### C MP, T7, TSH, LIPID #### [facility] [address] [address] [address] Ravin Dior CO2 [Moles/Vol] 27.7 mmol/L Normal 21.0-32.[address] [facility] Comment on above: Performed By: #### C MP, T7, TSH, LIPID #### [facility] [address] [address] [address] Ravin Dior Creatinine [Mass/Vol] 0.94 mg/dL Normal 0.55-1.02 [facility] Comment on above: Performed By: #### C MP, T7, TSH, LIPID #### [facility] [address] [address] [address] Ravin Dior EGFR-AF MARSHALLESE >60 Normal >=[address] [facility] Comment on above: Performed By: #### C MP, T7, TSH, LIPID #### [facility] [address] [address] [address] Ravin Dior EGFR-NON AF MARSHALLESE 58 mL/min/1.73m2 Critically low >=60 [facility] Comment on above: Performed By: #### C MP, T7, TSH, LIPID #### [facility] [address] [address] [address] Ravin Dior Globulin (S) [Mass/Vol] 4.7 g/dL Normal [facility] Comment on above: Performed By: #### C MP, T7, TSH, LIPID #### [facility] [address] [address] [address] Ravin Dior Glucose [Mass/Vol] 95 mg/dL Normal 74-106 [facility] Comment on above: Performed By: #### C MP, T7, TSH, LIPID #### [facility] [address] [place] [address] Dr. Ravin Dior Potassium [Moles/Vol] 4.2 mmol/L Normal 3.5-5.1 [facility] Comment on above: Performed By: #### C MP, T7, TSH, LIPID #### [facility] [address] [place] [address] Dr. Ravin Dior Protein [Mass/Vol] 8.0 g/dL Normal 6.4-8.2 [facility] Comment on above: Performed By: #### C MP, T7, TSH, LIPID #### [facility] [address] [place] [address] Dr. Ravin Dior Sodium [Moles/Vol] 144 mmol/L Normal 136-145 [facility] Comment on above: Performed By: #### C MP, T7, TSH, LIPID #### [facility] [address] [place] [address] Dr. Ravin Dior Urea nitrogen [Mass/Vol] 21.0 mg/dL Critically high 7.0-18.0 [facility] Comment on above: Performed By: #### C MP, T7, TSH, LIPID #### [facility] [address] [place] [address] Dr. Ravin Dior Urea nitrogen/Creatinine [Mass ratio] 22.3 mg/mg Normal [facility] Comment on above: Performed By: #### C MP, T7, TSH, LIPID #### [facility] [address] [place], [place] [address] Dr. Ravin Dior TSHon 09-22-2022 TSH 2.085 uIU/mL Normal 0.358-3.740 [facility] Comment on above: Performed By: #### C MP, T7, TSH, LIPID #### [facility] [address] [place], [place] [address] ABD/PELVIS WO CONon [...] was used, including Automated Exposure Control. 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 Normal [facility] CBC AUTO DIFFon 05-17-2022 BASO # 0.0 103/ul Normal 0.0-0.1 [facility] Comment on above: Performed By: #### C BC ####[facility] [address] [place] [address]DrViky Dior Basophils/100 WBC (Bld) 0.2 % Normal 0.2-2.0 [facility] Comment on above: Performed By: #### C BC ####[facility] [address] [place] [address]DrViky Dior EO # 0.1 103/ul Normal 0.0-0.7 [facility] Comment on above: Performed By: #### C BC ####[facility] [address] [place] [id number] Dior Eosinophils/100 WBC (Bld) 1.4 % Normal 0.9-7.0 [facility] Comment on above: Performed By: #### C BC ####[facility] [address] [place] [id number] Dior Erythrocyte distribution width (RBC) [Ratio] 13.7 % Normal 11.0-15.0 [facility] Comment on above: Performed By: #### C BC ####[facility] [address] [place], [place] [address]DrViky Dior Hematocrit (Bld) [Volume fraction] 44.4 % Normal 36.0-48.0 [facility] Comment on above: Performed By: #### C BC ####[facility] [address] [place] [address]Dr. Ravin Dior Hemoglobin (Bld) [Mass/Vol] 14.7 g/dL Normal 12.0-16.0 [facility] Comment on above: Performed By: #### C BC ####[facility] [address] [place] [address]Dr. Ravin Dior IG # 0.05 10e3/ul Critically high 0.00-0.03 [facility] Comment on above: Performed By: #### C BC ####[facility] [address] [place] [address]Dr. Ravin Dior IG % 0.5 % Normal 0.0-0.5 [facility] Comment on above: Performed By: #### C BC ####[facility] [address] [place], [place] [address]Dr. Ravin Dior LYMPH # 1.7 103/ul Normal 1.2-3.8 [facility] Comment on above: Performed By: #### C BC ####[facility] [address] [place], [place] [address]Dr. Ravin Dior Lymphocytes/100 WBC (Bld) 17.1 % Critically low 20.5-60.0 [facility] Comment on above: Performed By: #### C BC ####[facility] [address] [place] [address]Dr. Ravin Dior MANUAL DIFF REQ NO Normal [facility] Comment on above: Performed By: #### C BC ####[facility] [address] [place] [address]Dr. Ravin Dior MCH (RBC) [Entitic mass] 30.7 pg Normal 26.7-34.0 [facility] Comment on above: Performed By: #### C BC ####[facility] [address] [place] [address]Dr. Ravin Dior MCHC (RBC) [Mass/Vol] 33.1 g/dL Normal 29.9-35.2 [facility] Comment on above: Performed By: #### C BC ####[facility] [address] [place] [id number]. Ravin Dior MCV (RBC) [Entitic vol] 92.7 fL Normal 81.0-99.0 [facility] Comment on above: Performed By: #### C BC ####[facility] [address] [place] [id number]. Ravin Dior MONO # 0.6 103/ul Normal 0.3-0.8 [facility] Comment on above: Performed By: #### C BC ####[facility] [address] [place] [id number]. Ravin Ovi Monocytes/100 WBC (Bld) 5.7 % Normal 1.7-12.0 [facility] Comment on above: Performed By: #### C BC ####[facility] [address] [place], [place] [address]Dr. Ravin Dior NEUT # 7.7 103/ul Critically high 1.4-6.[address] [facility] Comment on above: Performed By: #### C BC ####[facility] [address] [place], [place] [address]Dr. Ravin Ovi Neutrophils/100 WBC (Bld) 75.1 % Critically high 43.0-75.0 [facility] Comment on above: Performed By: #### C BC ####[facility] [address] [place] [id number]. Ravin Ovi Platelet mean volume (Bld) [Entitic vol] 10.4 fL Normal 9.5-13.5 [facility] Comment on above: Performed By: #### C BC ####[facility] [address] [place] [id number]. Novalilliana Ovi PLT 294 103/ul Normal 150-450 [facility] Comment on above: Performed By: #### C BC ####[facility] [address] [place] [id number]. Ravin Dior RBC 4.79 106/ul Normal 4.20-5.40 [facility] Comment on above: Performed By: #### C BC ####[facility] [address] [place] [address]Dr. Ravin Dior WBC 10.2 103/ul Normal 4.0-11.0 [facility] Comment on above: Performed By: #### C BC ####[facility] [address] [place] [address]Dr. Ravin Dior ER URINE PROFILEon 2 Bilirubin Ql (U) Negative Normal NEGATIVE [facility] Comment on above: Performed By: #### Tammy SOUTH UMICRO #### [facility] [address] [place] [address] Dr. Ravin Dior Clarity (U) CLEAR Normal CLEAR [facility] Comment on above: Performed By: #### Tammy SOUTH UMICRO #### [facility] [address] [place] [address] Dr. Ravin Dior Color (U) LT. YELLOW Normal YELLOW [facility] Comment on above: Performed By: #### Tammy SOUTH UMICRO #### [facility] [address] [place] [address] Dr. Ravin PARKER A micrscopic examination will be performed if indicated. Normal [facility] Comment on above: Performed By: #### Tammy SOUTH UMICRO #### [facility] [address] [place] [address] Dr. Ravin Dior Glucose Ql (U) Negative Normal NEGATIVE [facility] Comment on above: Performed By: #### Tammy SOUTH UMICRO #### [facility] [address] [place] [address] Dr. Ravin Dior Hemoglobin Ql (U) Negative Normal NEGATIVE The [facility] Comment on above: Performed By: #### Tammy SOUTH UMICRO #### [facility] [address] [place] [address] Dr. Ravin Dior Ketones Ql (U) TRACE Abnormal NEGATIVE [facility] Comment on above: Performed By: #### Tammy SOUTH UMICRO #### [facility] [address] [place] [address] Dr. Ravin Dior LEUKOCYTES SMALL Abnormal NEGATIVE [facility] Comment on above: Performed By: #### Tammy SOUTH UMICRO #### [facility] [address] [place] [address] Dr. Ravin Dior Nitrite Ql (U) Negative Normal NEGATIVE [facility] Comment on above: Performed By: #### Tammy SOUTH UMICRO #### [facility] [address] [place] [address] Dr. Ravin Dior pH (U) 6.0 [pH] Normal 5-9 [facility] Comment on above: Performed By: #### Tammy SOUTH UMICRO #### [facility] [address] [place] [address] Dr. Ravin Dior SPEC GRAVITY 1.010 Normal 1.005-<=1.[address] [facility] Comment on above: Performed By: #### Tammy SOUTH UMICRO #### [facility] [address] [place] [address] Dr. Ravin Dior UA PROTEIN Negative Normal NEGATIVE/ TRACE [facility] Comment on above: Performed By: #### Tammy SOUTH UMICRO #### [facility] [address] [place] [address] Dr. Ravin Dior UR MICRO IND INDICATED Normal [facility] Comment on above: Performed By: #### Tammy SOUTH UMICRO #### [facility] [address] [place] [address] Dr. Ravin Dior Urobilinogen Qn (U) 0.2 {Chandler'U}/dL Normal 0.2 - 1. 0 [facility] Comment on above: Performed By: #### Tammy SOUTH UMICRO #### [facility] [address] [place] [address] Dr. Ravin Dior LACTATE/LACTIC ACIDon 2021 Lactate [Moles/Vol] 1.3 mmol/L Normal 0.4-1.9 [facility] Comment on above: Performed By: #### L ACT ####[facility] [address] [place], [place] [address]Dr. Ravin Dior LIPASEon 05-17-2022 Lipase [Catalytic activity/Vol] 63.0 U/L Critically low 73.0-393.0 [facility] Comment on above: Performed By: #### C MP, LIPA #### [facility] [address] [address] [address] Ravin Dior PROF 14(COMP METB)on 022 Albumin [Mass/Vol] 3.4 g/dL Normal 3.4-5.0 [facility] Comment on above: Performed By: #### C MP, LIPA #### [facility] [address] [address] [address] Ravin Dior Albumin/Globulin [Mass ratio] 0.8 {ratio} Normal [facility] Comment on above: Performed By: #### C MP, LIPA #### [facility] [address] [address] [address] Ravin Dior ALP [Catalytic activity/Vol] 143 U/L Critically high 46-116 [facility] Comment on above: Performed By: #### C MP, LIPA #### [facility] [address] [address] [address] Ravin Dior ALT [Catalytic activity/Vol] 29 U/L Normal 14-59 [facility] Comment on above: Performed By: #### C MP, LIPA #### [facility] [address] [address] [address] Ravin Dior Anion gap [Moles/Vol] 7.6 mmol/L Normal [facility] Comment on above: Performed By: #### C MP, LIPA #### [facility] [address] [address] [address] Ravin Dior AST [Catalytic activity/Vol] 39 U/L Critically high 15-37 [facility] Comment on above: Performed By: #### C MP, LIPA #### [facility] [address] [address] [address] Ravin Dior Bilirubin [Mass/Vol] 0.7 mg/dL Normal 0.2-1.0 [facility] Comment on above: Performed By: #### C MP, LIPA #### [facility] [address] [address] [address] Ravin Dior Calcium [Mass/Vol] 9.1 mg/dL Normal 8.5-10.1 [facility] Comment on above: Performed By: #### C MP, LIPA #### [facility] [address] [place] [address] Dr. Ravin Dior Chloride [Moles/Vol] 102 mmol/L Normal 98-107 [facility] Comment on above: Performed By: #### C MP, LIPA #### [facility] [address] [address] [address] Ravin Dior CO2 [Moles/Vol] 31.1 mmol/L Normal 21.0-32.0 [facility] Comment on above: Performed By: #### C MP, LIPA #### [facility] [address] [place] [address] Dr. Ravin Dior Creatinine [Mass/Vol] 0.88 mg/dL Normal 0.55-1.02 [facility] Comment on above: Performed By: #### C MP, LIPA #### [facility] [address] [place] [address] Dr. Ravin Dior EGFR-AF MARSHALLESE >60 Normal >=60 [facility] Comment on above: Performed By: #### C MP, LIPA #### [facility] [address] [place] [address] Dr. Ravin Dior EGFR-NON AF MARSHALLESE >60 Normal >=60 [facility] Comment on above: Performed By: #### C MP, LIPA #### [facility] [address] [place] [address] Dr. Ravin Dior Globulin (S) [Mass/Vol] 4.5 g/dL Normal [facility] Comment on above: Performed By: #### C MP, LIPA #### [facility] [address] [place] [address] Dr. Ravin Dior Glucose [Mass/Vol] 100 mg/dL Normal 74-106 [facility] Comment on above: Performed By: #### C MP, LIPA #### [facility] [address] [place] [address] Dr. Ravin Dior Potassium [Moles/Vol] 3.7 mmol/L Normal 3.5-5.1 [facility] Comment on above: Performed By: #### C MP, LIPA #### [facility] [address] [place] [address] Dr. Ravin Dior Protein [Mass/Vol] 7.9 g/dL Normal 6.4-8.2 [facility] Comment on above: Performed By: #### C MP, LIPA #### [facility] [address] [place] [address] Dr. Ravin Dior Sodium [Moles/Vol] 137 mmol/L Normal 136-145 [facility] Comment on above: Performed By: #### C MP, LIPA #### [facility] [address] [place] [address] Dr. Ravin Dior Urea nitrogen [Mass/Vol] 12.0 mg/dL Normal 7.0-18.0 [facility] Comment on above: Performed By: #### C MP, LIPA #### [facility] [address] [place] [address] Dr. Ravin Dior Urea nitrogen/Creatinine [Mass ratio] 13.6 mg/mg Normal [facility] Comment on above: Performed By: #### C MP, LIPA #### [facility] [address] [place] [address] Dr. Ravin Dior URINE MICROSCOPIC ONLYon BACTERIA NONE SEEN Normal NONE SEEN [facility] Comment on above: Performed By: #### Tammy SOUTH UMICRO #### [facility] [address] [place] [address] Dr. Ravin Dior Bacteria identified Cx Nom (U) NOT INDICATED Normal [facility] Comment on above: Performed By: #### E BRANNON UMICRO #### [facility] [address] [place] [address] Dr. Ravin Dior CAST NONE SEEN Normal NONE SEEN [facility] Comment on above: Performed By: #### E JAZ SOUTHICRO #### [facility] [address] [address] [address] Ravin Dior Crystals LM Nom (Urine sed) NONE SEEN Normal NONE SEEN [facility] Comment on above: Performed By: #### E RUR, UMICRO #### [facility] [address] [address] [address] Ravin Dior Epithelial cells LM Ql (Urine sed) FEW Abnormal NONE SEEN /RARE [facility] Comment on above: Performed By: #### E RUR, UMICRO #### [facility] [address] [address] [address] Ravin Dior MUCOUS NONE SEEN Normal NONE SEEN [facility] Comment on above: Performed By: #### E RUR, UMICRO #### [facility] [address] [address] [address] Ravin Dior RBC NONE SEEN Abnormal 0-2 [facility] Comment on above: Performed By: #### E RUR, UMICRO #### [facility] [address] [address] [address] Ravin Dior WBC 0-2 Abnormal NONE SEEN [facility] Comment on above: Performed By: #### E RUR, UMICRO #### [facility] [address] [address] [address] Ravin Dior Ambulatory Clinical Summaryo n 07-24-2020 Ambulatory Clinical Summary {[id number]}[id number] Normal [facility] Gastroenterology Office/Clin ic Noteon 07-24-2020 Gastroenterology [...] course, # 28 cap(s), Refills(s) 0, Pharmacy: [facility]/pharmacy #[id number], 165, cm, 07/24/20 12:03:00 EST, Height/Length Dosing, 95.9, kg, 07/24/20 12:03:00 EST, Weight Dosing metronidazole, 250 mg = 1 tab(s), Oral, TID, X 7 day(s), # 21 tab(s), Refills(s) 0, Pharmacy: [facility]/pharmacy #[id number], 165, cm, 07/24/20 12:03:00 EST, [...] water, # 160 cap(s), Refills(s) 1, Pharmacy: [facility]/pharmacy #[id number], 165, cm, 07/24/20 12:03:00 EST, Height/Length Dosing, 95.9, kg, 07/24/20 12:03:... Orders: pantoprazole, 40 mg = 2 tab(s), Oral, Daily, X 90 day(s), # 180 tab(s), Refills(s) 3, Pharmacy: [facility]/pharmacy #[id number], 165, cm, 07/24/20 12:03:00 EST, Height/Length Dosing, 95.9, kg, 07/24/20 12:03:00 EST, Weight Dosing Follow-up With When Contact Information Isabelle Ramirez MD In 12 months [address], [place] [address]- Additional Instructions: Problem List/Past Medical [...] 12/16/2018 Exercise - Occasional exercise, 12/16/2018 Other Vnvhkkoa-2-3 cups blair;y, 12/16/2018 Substance Abuse - Denies Substance Abuse, 12/16/2018 Tobacco Never (less than 100 in lifetime) Tobacco Use:., 07/24/2020 Never (less than 100 in lifetime) Tobacco Use:. Never Smokeless Tobacco Use:., 02/01/2019 [facility] Comment on above: Result Comment: Elec tronically Signed By: Taylor Mccauley MD, Isabelle\.br\Date and Time Signed: 07/24/20 13:13 EST Auth for Release of Medical Recordson 02-09-2020 Auth for Release of Medical Records [id number] [facility] Patient Letter FTon 2019 Patient Letter [facility] January 24, 2020 RADHA GUTIÉRREZ [address] [place] [address] RADHA GUTIÉRREZ 1945 Dear Radha, This is a reminder that you are due for an appointment with Dr. Garland or Dr. Mccauley. Please call [facility] at [phone] to schedule an appointment at your earliest convenience. 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) [facility] Start: 07-04-2020 End: 08-24-2022 History of Social function [facility] Start: 07-04-2020 End: 08-24-2022 Tobacco use panel [facility] Start: 12-27-2022 Tobacco smoking stat us ILIS Never smoked tobacco [facility] Start: 05-26-2022 Tobacco use and exposure Smoke less tobacco non-user [facility] Start: 1945 Sex Assigned At Not on file P [facility] Housing Instability Unknown [facility] Clinical Notes 12-24-2021 to 12-01-2023 Note Date & Type Note Facility 12-01-2023 Note Currently pt is doin g quite well s/p recent AV node ablation Remains V paced with BI-V AICd [facility] 12-01-2023 Note No anticoagulation currently [facility] 12-01-2023 Note [facility]TP CARDIOLOGY PROGR ESS NOTE [...] GI bleed. She was previously seen by [facility] cardiology. She was initially seen by Dr. [...] Conjunctiva/sclera: Conjunctivae normal. (more content not included)... [facility] 12-01-2023 Note Patient here for fol low up AV node ablation performed on 11/01/[address] Madden. She denies chest pain, SOB, palpitations, and lightheadedness/syncope. Review of Systems Musculoskeletal: Positive for arthritis and back pain. All other systems reviewed and are negative. [facility] 11-01-2023 Note AV NODE ABLATION PRO CEDURE REPORT DATE OF PROCEDURE: 11/01/2023 PERFORMING PHYSICIAN: Dr. Robert Madden KNOTTING MACHINE OPERATOR: TOÑA CONSENT: Patient NAME OF THE PROCEDURE: [...] GI bleed. She was previously seen by [facility] cardiology. She was initially seen by Dr. [...] Continue anticoagulation. Robert Madden MD Cardiac Electrophysiology. [facility] 11-01-2023 Note Patient: Radha mcghee Procedure Information Date/Time: 11/01/23829 Procedure: AV node ablation Location: [facility] FABRICATION SUPERVISOR 1 EP / [facility] (Cath) Providers: Robert Madden MD Clinical information reviewed: Tobacco Allergies Meds Med Hx Surg Hx OB Status Fam Hx Physical Exam Airway Mallampati: II TM distance: >3 FB Neck ROM: full Cardiovascular Dental Pulmonary Abdominal Anesthesia Plan ASA 2 CSE Anesthetic plan and risks discussed with patient. Use of blood products discussed with patient who. Additional Equipment Requests [facility] 11-01-2023 Note [place] Electrophys[facility] Consult Note Reason for visit: Afib [...] GI bleed. [facility] She was initially seen by Dr. [...] on file Intimate Partner Violence: Unknown (07/23/2023) [place] [employer] [facility] Fear of Current or [...] 50 mg tab (more content not included)... [facility] 08-27-2023 Note ca [facility] 07-14-2023 Note stable [facility] 07-14-2023 Note Patient here for wou nd check s/p BiV ICD implant on 07/05/[address] Madden. [facility] 07-14-2023 Note [facility]TP CARDIOLOGY PROGR ESS NOTE [...] GI bleed. She was previously seen by [facility] cardiology. She was initially seen by Dr. [...] Neurological: General: No (more content not included)... [facility] 07-14-2023 Note Site well approximat ed and healing well No s/s of infection or hematoma, + ecchymosis noted [facility] 07-14-2023 Note -[id number] at [facility] [facility] for age x2, gender, hypertension, CHF, on aspirin s/p watchmen Continue meds as prescribed [facility] 07-05-2023 Note ACCIDENT REPORT CLERK-D IMPLANT PROCED URE NOTE DATE OF PROCEDURE: 07/05/2023 PERFORMING PHYSICIAN: Dr. Robert Madden KNOTTING MACHINE OPERATOR: TOÑA CONSENT: Patient LOCATION: [place] [place] PROCEDURE PERFORMED: 1. Implantation of Biventricular ICD ([employer]). 2. U/S venous access 3. Coronary [...] GI bleed. She was previously seen by [facility] cardiology. She was initially seen by Dr. [...] occasions using seldinger technique using a 5 Martiniquais micropunture needle and exchanged for 0.034 wire. I decided to proceed with opening of the pocket. Localinfiltration of 1% Lidocaine was performed and an incision was created in the left upper chest. Dissection was then performed using cautery down. An active fixation [employer] ICD lead was then delivered through [...] to perform the LV lead placement. A [place] sheath was advanced into the RV over [...] The leads were then attached to a [employer] ACCIDENT REPORT CLERK-D device with atrial ort capped and the [...] Patient was hemodynamically (more content not included)... [facility] 07-05-2023 Note Patient: Radha mcghee Procedure Information Date/Time: 07/05/23 1400 Procedure: Implant ICD - biventricular Location: [facility]ABRICATION SUPERVISOR 1 EP / [facility] (Cath) Providers: Robert Madden MD Clinical information reviewed: Allergies Meds Physical Exam Airway Mallampati: II TM distance: >3 FB Neck ROM: full Cardiovascular Dental Pulmonary Abdominal Anesthesia Plan ASA 2 CSE Anesthetic plan and risks discussed with patient. Use of blood products discussed with patient who. Additional Equipment Requests [facility] 05-18-2023 Note [place] [facility] Consult Note Reason for visit: Afib [...] GI bleed. She was previously seen by [facility] cardiology. She was initially seen by Dr. [...] Appearance: well-nourished, we (more content not included)... [facility] 03-23-2023 Note [place] [facility] Consult Note Reason for visit: Afib HPI: Radha Gutiérrez is a 77 y.o. year old with past medical history of HFrEF with EF of 35% as per an echocardiogram in May 2022, nonobstructive coronary artery disease as per cath on 01/05/2023 who previously had undergone a Watchman procedure in 2019 due to GI bleed. She was previously seen by [facility] cardiology. She was initially seen by Dr. [...] no cyanosis, no (more content not included)... [facility] 02-04-2023 Note -s/p watchmen 2019[facility] -[id number] at [facility] age x2, gender, hypertension, CHF, [...] Watchman due to unclear risk of stroke [facility] 02-04-2023 Note -will need BiV ICD if ICD indica halie [facility] 02-04-2023 Note -stable, ct medications [facility] 02-04-2023 Note -NYHA II, NICM, HFrE F EF 35%, pending MUGA scan in 2-3 months to reassess EF for ICD -nonobstruc cors 12/2022 -ct gdmt -she appears euvolemic and compensated [facility] 02-04-2023 Note -adv compliance with cpap Kush anthony [facility] 01-25-2023 Note Patient here to disc uss possible afib ablation per Dr. Jefferson. She will be scheduled for muga scan in Mar 2023. Review of Systems Cardiovascular: Positive for dyspnea on exertion. All other systems reviewed and are negative. [facility] 01-25-2023 Note [place] [facility] Consult Note Reason [...] Jefferson for her A-fib. [facility] self[facility]referred to [facility] cardiology for second opinion. She recently [...] rash, no ulcer, (more content not included)... [facility] 01-18-2023 Note [facility] Card[facility] Clinic Note Chief Complaint: Patient [...] TTE 06/08/22 Nonischemic cardiomyopathy Normal coronaries by [facility] 2013 and 2022 Mitral regurgitation, moderate by TTE 05/2022 Persistent atrial fibrillation s/p repeat ca (more content not included)... [facility] 01-05-2023 Note Cardiovascular Labor atory Report FINAL [...] left radial artery was obtained. A 6 Martiniquais glide sheath was inserted without difficulty. Bilateral [...] fraction, heart failure with reduced ejection fraction [facility] 07-23-2022 Note PAIN MANAGEMENT CONS ULTATION CONSULTATION [...] months' time or sooner if needed. [facility] 03-26-2022 Note CONSULTATION CONSULTATION DATE: 03/26/2022 This [...] agrees with the plan of care. [facility] 12-24-2021 Note CONSULTATION PROCEDURE DATE: 12/24/2021 PREOPERATIVE [...] the procedure well with no complications. [facility] 12-24-2021 Note CONSULTATION CONSULTATION DATE: 12/24/2021 HISTORY [...] three months' time, unless otherwise indicated. [facility] Evaluation note Diagnosis Essential hypertension- Primary Unspecified essential hypertension [facility] filed[facility] Summary Purpose Family History No Family History Records FoundNo Family History Records FoundNo Family History Records FoundNo Family History Records Found Advance Directives No Advanced Directives Records FoundNo Advanced Directives Records FoundNo Advanced Directives Records FoundNo Advanced Directives Records Found Additional Source Comments INFORMATION SOURCE (unrecogn ized section and content) DATE CREATED AUTHOR 07/25/2020 [facility] DATE CREATED AUTHOR AUTHOR'S ORGANIZ ATION 10/12/2022 [facility] DATE CREATED AUTHOR AUTHOR'S ORGANIZ ATION 12/19/2023 [facility] DATE CREATED AUTHOR AUTHOR'S ORGANIZ ATION 12/22/2023 [facility] Specialists EPIC Reason for Visit (unrecogniz ed section and content) Reason Comments Med Refill Care Teams (unrecognized sec tion and content) Leather Sprayer Relationship Specialty Start Date End Date Heaven Staley, GREEN HOUSE MANAGER-LIBRARY MANAGER [address] [place] [id number] PCP - General Family Medicine 10/30/21 FOR [...] BE BASED ON THE PRIMARY CLINICAL RECORDS. [facility] APR [facility]. provides no warranty or guarantee of the accuracy or completeness of information in this document.
== END 2023-12-23 08:27 | disposition home or self-care (01) ==
PROVIDERS: PCP Nurse Practitioner Family; Visit Provider Nurse Practitioner
DX: M54.16 Radiculopathy, lumbar region (principal); M96.1 Postlaminectomy syndrome, not elsewhere classified; M47.816 Spondylosis without myelopathy or radiculopathy, lumbar region; M62.838 Other muscle spasm; Z79.891 Long term (current) use of opiate analgesic
CPT/HCPCS: G0463

== ENCOUNTER 2023-12-27 13:14 | Outpatient (OUT) | payer MEDICARE, SELFPAY ==
--- NOTE | 2023-12-27 13:22 | CT_ITS ---
[address] [address] Patient Name: SAUL GUTIÉRREZ MRN: [id number] date: 1945 Sex: F Assigned Patient Location: CT Current Patient Location: Accession/Order Number: [id number] Exam Date: 12/27/2023 13:30 Report Date: 12/28/2023 08:53 At the request of: KURTIS ESPOSITO Procedure: CT lumbar spine wo con EXAMINATION: CT lumbar spine wo con HISTORY: lumbar stenosis with neuroclaudication COMPARISON: No relevant comparison available. TECHNIQUE: Axial, Coronal, and Sagittal CT images were created without I.V. contrast material. Dose reduction techniques were achieved by using automated exposure control and/or adjustment of mA and/or kV according to patient size and/or use of iterative reconstruction technique. FINDINGS: PARASPINAL AREA: Normal with no visible mass. Mild vascular calcifications BONES: 5 mm anterolisthesis of L4 in relation L5. Posterior decompression bilateral transpedicular fusion L3-L4 with no mechanical failure. Moderate diffuse degenerative spondylosis and facet osteoarthropathy DISC LEVELS: 12-L1: No significant disc/facet abnormality, spinal stenosis, or foraminal stenosis. L1-L2: No significant disc/facet abnormality, spinal stenosis, or foraminal stenosis. L2-L3: Moderate to severe disc space narrowing with endplate sclerosis and vacuum disc. Mild diffuse disc/osteophyte complex and facet osteoarthropathy. Moderate right foraminal stenosis. No central canal or left foraminal stenosis L3-L4: Bilateral transpedicular fusion. Anterior body spacer. No central or foraminal stenosis L4-L5: Bilateral transpedicular fusion. 5 mm anterolisthesis of L4 on L5. Severe disc space narrowing with endplate sclerosis and vacuum disc. Moderate diffuse disc/osteophyte complex. No central canal stenosis. Moderate bilateral foraminal stenosis L5-S1: Disc collapse with endplate sclerosis and vacuum disc. Bilateral facet osteoarthropathy. No central canal stenosis or right foraminal stenosis. Moderate narrowing of the left neural foramen CT/CT lumbar spine wo con IMPRESSION: Degenerative changes with posterior L3-L4 fusion Multilevel foraminal stenosis detailed above Electronically authenticated by: YVES JOHNSON Date: 12/28/2023 08:53
--- OUTSIDE RECORDS SUMMARY | 2023-12-27 13:32 | XMS_ITS | CCD ---
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 Role Phone JOHNSON ., DR JAYLON Ruelas Admitting Unavailable ORNELAS ., DR JAYLON Ruelas Attending [facility]available [facility] Primary Care Unavailable ORNELAS ., DR JAYLON Ruelas Consulting Unavailable MICHELINE MOLINA Consulting Unavailable ORNELAS ., DR JAYLON Ruelas Admitting Unavailable ORNELAS ., DR JAYLON Ruelas Attending Unavailable [facility] Primary Care Unavailable RODRIGUEZ ., SABRINA Consulting Unavailable ORNELAS ., DR JAYLON Ruelas Admitting Unavailable ORNELAS ., DR JAYLON Ruelas Attending Unavailable [facility] Primary Care Unavailable RODRIGUEZ ., SABRINA Consulting Unavailable [facility] Primary Care Unavailable LAKSHMIPATHY ., NARENDRANATH Admitting Charity vailable LAKSHMIPATHY ., NARENDRANATH Attending Charity vailable LAKSHMIPATHY ., NARENDRANATH Consulting Charity vailable LAKSHMIPATHY ., NARENDRANATH Admitting Charity vailable LAKSHMIPATHY ., NARENDRANATH Attending Charity vailable [facility] Primary Care Unavailable LUÍS, HEAVEN Admitting Unavailable LUÍS, HEAVEN Attending Unavailable [facility] Primary Care Unavailable DR OSWALDO VALENZUELA Consulting Unavailable LUÍS, HEAVEN Consulting Unavailable [facility] Primary Care Unavailable DAREK ., [...] MADDEN Referring Unavailable ROBERT MADDEN Referring Unavailable DARRIUS, ADELAIDA Attending Unavailable [facility]AB Referring Unavailable ROBERT MADDEN Referring Unavailable ADELAIDA RIZO Attending Unavailable ROBERT MADDEN Attending Unavailable ROBERT MADDEN Referring Unavailable ELTAHAWY, EHAB Attending Unavailable VIRGIL FOLEY Attending Unavailable ROBERT MADDEN Referring Unavailable ROBERT MADDEN Admitting Unavailable ROBERT MADDEN Attending Unavailable ELTAHAWY, EHAB Admitting Unavailable [facility]AB Attending Unavailable OSWALDO GARCÍA Attending Unavailable SANDIE PAGE Attending Unavailable HEAVEN STALEY Referring Unavailable Allergies Allergy Classification Reported Allergen(s) Allergy Type Date of Onset Reaction(s) Facility (2 sources) Codeine; Translations: [CODEINE] Drug Allergy 06-06-2014 [facility] (1 source) Codeine Drug Allergy 06-06-2014 [facility] (2 sources) Lisinopril; Translations: [LISINOPRIL] Drug Allergy 10-19-2014 [facility] (1 source) pregabalin; Translations: [PREGABALIN] Drug Allergy 12-01-2023 [facility] Rep[facility] Medications Current Medications Medication Drug [...] 30 tablet 1 06/08/2023 Active lactobacillus acidophilus [id number] unt oral capsule (1 source) take 1 [...] Indications: Chronic systolic CHF (congestive heart failure) ([facility]) Take 1 tablet (25 mg total) [...] 10-11-2020 Episodic Other aftercare (1 source) Other fdc (current) drug therapy; Translations: [OTH ALF CURRENT DRUG THERAPY] Onset: 05-19-2022 Episodic Other [...] Range Facility Office Visiton 12-01-2023 Follow-up visit [id number] Radha Gutiérrez 1945 F Date Provider Department Center 12/01/2023 Jonna-DARRIUSADELAIDA Ruelas CARD [facility] Family History Problem Relation Age of Onset Heart failure Father Family Status - Relation Status Age at Father Level of Service:04748 [place] POSTOP FOLLOW UP VISIT RELATED TO ORIGINAL PX Normal [facility] HPon 11-01-2023 [facility] Electrophysiology Consult Note Reason for [...] [facility]. [facility] [...] on file Intimate Partner Violence: Unknown (07/23/2023) ID Safety & Environment Fear of Current or [...] 50 mg tab (more content not included)... [facility] NURSNOTEon 11-01-2023 NURSNOTE RN educated pt on d/ c instructions. RN encouraged pt to voice any questions or concerns. Pt verbalizes no questions or concerns at this time. [facility] Orders Onlyon 10-22-2023 Orders Only [id number] Radha Gutiérrez 1945 F Date Provider Department Center 10/22/2023 DEMOND [facility]OS [facility] Family History Problem Relation Age of Onset Heart failure Father Family Status - Relation Status Age at Father [facility] Orders Onlyon 08-27-2023 Orders Only [id number] Radha Gutiérrez 1945 Date Provider Department Center 08/27/2023 LEATHA BAHENA MAGNUS [place] Family History Problem Relation Age of Onset Heart failure Father Family Status - Relation Status Age at Father [facility] Office Visiton 07-14-2023 Follow-up visit [id number] Radha Gutiérrez 1945 F Date Provider Department Center 07/14/2023 BRIDGETADELAIDA Ruelas CARD [facility] Family History Problem Relation Age of Onset Heart failure Father Family Status - Relation Status Age at Father Level of Service:21145 MT POSTOP FOLLOW UP VISIT RELATED TO ORIGINAL PX Normal [facility] HPon 07-05-2023 [facility] Electrophysiology Consult Note Reason for [...] [facility]. She was [facility] seen by [...] Appearance: well-nourished, we (more content not included)... [facility] NURSNOTEon 07-05-2023 NURSNOTE RN educated pt on d/ c instructions. RN encouraged pt to voice any questions or concerns. Pt verbalizes no questions or concerns at this time. Pt was wheeled off of unit with all of belongings. [facility] NURSNOTE CHG wipes and betadine nasal swabs completed. [facility] Orders Onlyon 07-05-2023 Orders Only [id number] Radha Gutiérrez 1945 Provider Department Center 07/05/2023 ELENA ATWOOD [facility] Family History Problem Relation Age of Onset Heart failure Father Family Status - Relation Status Age at Father [facility] Office Visiton 05-18-2023 Follow-up visit [id number] Radha Gutiérrez 1945 Date Provider Department Center 05/18/2023 241-ROBERT MADDEN [facility] Family History Problem Relation Age of Onset Heart failure Father Family Status - Relation Status Age at Father Level of Service:42613 MT OFFICE/OUTPATIENT ESTABLISHED MOD MDM 30 MIN (GC) Normal [facility] Office Visiton 03-23-2023 Follow-up visit [id number] Radha Gutiérrez 1945 Provider Department Center 03/23/2023 Antonietta-NAVIDROBERT Cherry MAGNUS [facility] Family History Problem Relation Age of Onset Heart failure Father Family Status - Relation Status Age at Father Level of Service:33085 MT OFFICE/OUTPATIENT NEW MODERATE MDM 45-59 MINUTES Normal [facility] Office Visiton 01-25-2023 Follow-up visit [id number] Radha Gutiérrez 1945 Provider Department Center 01/25/2023 1596-VIRGIL FOLEY MAGNUS [facility] Family History Problem Relation Age of Onset Heart failure Father Family Status - Relation Status Age at Father Level of Service:72172 MT OFFICE/OUTPATIENT ESTABLISHED MOD MDM 30-39 MIN Normal [facility] Office Visiton 01-18-2023 Follow-up visit [id number] Radha Gutiérrez 1945 Provider Department [place] 01/18/2023 [facility] Family History Problem Relation Age of Onset Heart failure Father Family Status - Relation Status Age at Father Level of Service:45353 MT OFFICE/OUTPATIENT ESTABLISHED MOD MDM 30-39 MIN Normal [facility] Marlene 01-05-2023 ANES - Attestation signed by Matt Jefferson MD at 01/05/2023 9:33 AM Matt Jefferson MD, MPH, FACC, [facility] Interventional Cardiology Pager Email: [email or web address] Patient: Radha Gutiérrez Procedure Information Date/Time: 01/05/23929 Procedure: Coronary angiography (Left) Location: [facility] [address] / [facility] VASCULAR LAB (Cath) Providers: Matt Jefferson [...] with attending. Additional Equipment Requests Normal [facility] CBCon 01-05-2023 Erythrocyte distribution width (RBC) [Ratio] 14.8 % Normal 11.5-15.0 [facility] Comment on above: Performed By: #### L [id number] ####[facility] LAB (BEAKER)[address] [facility] [place] [id number] ERYTHROCYTE MEAN CORPUSCULAR HEMOGLOBIN CONCENTRATION (G/DL) BY AUTOMATED 31.4 g/dL Low 32.0-35.0 [facility] Comment on above: Performed By: #### L [id number] ####[facility] (BEAKER)[address] [place] [place] [id number] Hematocrit (Bld) [Volume fraction] 42.0 % Normal 36.0-48.0 [facility] Comment on above: Performed By: #### L [id number] ####[facility] (BEAKER)[address] [place] [address] Hemoglobin (Bld) [Mass/Vol] 13.2 g/dL Normal 12.0-15.0 [facility] Comment on above: Performed By: #### L [id number] ####[facility] (BEAKER)[address] [place] [place] [address] MCH (RBC) [Entitic mass] 30.3 pg Normal 27.0-33.0 [facility] Comment on above: Performed By: #### L [id number] ####[facility] ([facility])[address] [place] [id number] MCV (RBC) [Entitic vol] 96.3 fL Normal 82.0-98.0 [facility] Comment on above: Performed By: #### L [id number] ####[facility] ([facility])[address] [place] [id number] PLATELETS (10*3/UL) IN BLOOD AUTOMATED COUNT 231 10*3/uL Normal 150-400 [facility] Comment on above: Performed By: #### L [id number] ####[facility] ([facility])[address] [place] [id number] RBC (Bld) [#/Vol] 4.36 10*6/uL Normal 3.80-5.00 [facility] Comment on above: Performed By: #### L [id number] ####[facility] ([facility])[address] [place] [id number] WBC (Bld) [#/Vol] 8.83 10*3/uL Normal 4.00-10.60 [facility] Comment on above: Performed By: #### L [id number] ####[facility] ([facility])[address] [place] [id number] HPon 01-05-2023 HP - Attestation signed by [...] documentation from me. Matt Jefferson MD, MPH, [facility], [facility], [facility] Interventional Cardiology Pager Email: [email or web address] History Of Present Illness Radha Gutiérrez is a 77 y.o. female with history of Afib, CKD III, nonischemic cardiomyopathy, with new drop of EF from 40-45% to 35% presenting for coronary angiography. Patient was evaluated in office in October 2022 for second opinion. She was referred for stress test which was reportedly positive (done in [facility]). Patient reports exertional shortness of breath [...] SpO2 100 %. 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 Normal [facility] NURSNOTEon 01-05-2023 NURSNOTE RN educated pt on d/ c instructions. RN encouraged pt to voice any questions or concerns. Pt verbalizes no questions or concerns at this time. Pt was wheeled off of unit with all of belongings. Normal [facility] INSULINon 09-23-2022 Insulin 7.9 uIU/mL Normal 2.6-24.9 [facility] Comment on above: Performed By: #### I NSULIN ####[facility] [address] [place], [place] [address]Dr. Ravin Dior CBC AUTO DIFFon 09-22-2022 BASO # 0.0 103/ul Normal 0.0-0.1 [facility] Comment on above: Performed By: #### C BC ####[facility] [address] [place], [place] [address]Dr. Ravin Dior Basophils/100 WBC (Bld) 0.4 % Normal 0.2-2.0 [facility] Comment on above: Performed By: #### C BC ####[facility] [address] [place], [place] [address]Dr. Ravin Dior EO # 0.6 103/ul Normal 0.0-0.7 [facility] Comment on above: Performed By: #### C BC ####[facility] [address] [place], [place] [address]Dr. Ravin Dior Eosinophils/100 WBC (Bld) 6.6 % Normal 0.9-7.0 [facility] Comment on above: Performed By: #### C BC ####[facility] [address] [place], [place] [address]Dr. Ravin Dior Erythrocyte distribution width (RBC) [Ratio] 16.2 % Critically high 11.0-15.0 [facility] Comment on above: Performed By: #### C BC ####[facility] [address] [place] [address]Dr. Ravin Dior Hematocrit (Bld) [Volume fraction] 43.3 % Normal 36.0-48.0 [facility] Comment on above: Performed By: #### C BC ####[facility] [address] [place] [address]Dr. Ravin Dior Hemoglobin (Bld) [Mass/Vol] 13.4 g/dL Normal 12.0-16.0 [facility] Comment on above: Performed By: #### C BC ####[facility] [address] [place] [address]Dr. Ravin vOi IG # 0.05 10e3/ul Critically high 0.00-0.03 [facility] Comment on above: Performed By: #### C BC ####[facility] [address] [place] [address]Dr. Ravin Dior IG % 0.5 % Normal 0.0-0.5 [facility] Comment on above: Performed By: #### C BC ####[facility] [address] [place] [address]Dr. Ravin Ovi LYMPH # 2.1 103/ul Normal 1.2-3.8 [facility] Comment on above: Performed By: #### C BC ####[facility] [address] [place] [address]Dr. Novalilliana Dior Lymphocytes/100 WBC (Bld) 23.1 % Normal 20.5-60.0 [facility] Comment on above: Performed By: #### C BC ####[facility] [address] [place] [address]Dr. Novalilliana Dior MANUAL DIFF REQ NO Normal [facility] Comment on above: Performed By: #### C BC ####[facility] [address] [place] [address]Dr. Ravin Ovi MCH (RBC) [Entitic mass] 29.5 pg Normal 26.7-34.0 [facility] Comment on above: Performed By: #### C BC ####[facility] [address] [place], [place] [address]Dr. Ravin Dior MCHC (RBC) [Mass/Vol] 30.9 g/dL Normal 29.9-35.2 [facility] Comment on above: Performed By: #### C BC ####[facility] [address] [place] [address]Dr. Ravin Dior MCV (RBC) [Entitic vol] 95.4 fL Normal 81.0-99.0 [facility] Comment on above: Performed By: #### C BC ####[facility] [address] [place] [address]Dr. Ravin Ovi MONO # 0.5 103/ul Normal 0.3-0.8 [facility] Comment on above: Performed By: #### C BC ####[facility] [address] [place] [address]Dr. Ravin Dior Monocytes/100 WBC (Bld) 5.8 % Normal 1.7-12.0 [facility] Comment on above: Performed By: #### C BC ####[facility] [address] [place] [address]Dr. Ravin Ovi NEUT # 5.8 103/ul Normal 1.4-6.5 [facility] Comment on above: Performed By: #### C BC ####[facility] [address] [place] [address]Dr. Ravin Ovi Neutrophils/100 WBC (Bld) 63.6 % Normal 43.0-75.0 [facility] Comment on above: Performed By: #### C BC ####[facility] [address] [place] [address]Dr. Ravin Ovi Platelet mean volume (Bld) [Entitic vol] 10.7 fL Normal 9.5-13.5 [facility] Comment on above: Performed By: #### C BC ####[facility] [address] [place] [address]Dr. Novalilliana Ovi PLT 223 103/ul Normal 150-450 [facility] Comment on above: Performed By: #### C BC ####[facility] [address] [place] [address]DrViky Dior RBC 4.54 106/ul Normal 4.20-5.40 [facility] Comment on above: Performed By: #### C BC ####[facility] [address] [place] [address]DrViky Dior WBC 9.2 103/ul Normal 4.0-11.0 [facility] Comment on above: Performed By: #### C BC ####[facility] [address] [place] [address]Dr. Ravin Dior FREE THYROXINE INDEX T7on FTI 2.44 Normal 1.30-4.50 [facility] Comment on above: Performed By: #### C MP, T7, TSH, LIPID #### [facility] Laboratory [address] [address] [address] Ravin Dior T3U 33.0 % Normal 30.0-39.0 [facility] Comment on above: Performed By: #### C MP, T7, TSH, LIPID #### [facility] Laboratory [address] [address] [address] Ravin Dior T4 [Mass/Vol] 7.40 ug/dL Normal 4.80-13.90 [facility] Comment on above: Performed By: #### C MP, T7, TSH, LIPID #### [facility] Laboratory [address] [address] [address] Ravin Dior GLYCOHEMOGLOBIN A1Con 2022 ADA RECOMMENDATION SEE BELOW Normal [facility] Comment on above: Result Comment: ADA RECOMMENDED LIMIT 4.0 - 6.0 ADA THERAPEUTIC TARGET < 7.0 ACTION SUGGESTED > 7.0 Performed By: #### A 1C ####[facility] [address] [place] [address]Dr. Ravin Dior Glucose [Mass/Vol] 105 mg/dL Normal [facility] Comment on above: Performed By: #### A 1C ####[facility] [address] [place] [address]Dr. Ravin Dior HbA1c (Bld) [Mass fraction] 5.3 % Normal 4.5-6.2 [facility] Comment on above: Performed By: #### A 1C ####[facility] [address] [place] [address]Dr. Ravin Dior IRONon 09-22-2022 Iron [Mass/Vol] 81.0 ug/dL Normal 50.0-170.0 [facility] Comment on above: Performed By: #### I SEAMUS ####[facility] [address] [place] [address]Dr. Ravin Dior LIPID PROFILEon 09-22-2022 CHOL-HDL RATIO NORM SEE BELOW Normal [facility] Comment on above: Result Comment: 3.3 - 4.4 LOW RISK 4.4 - 7.1 AVERAGE RISK 7.1 - 11.0 MODERATE RISK >11.0 HIGH RISK Performed By: #### C MP, T7, TSH, LIPID ####[facility] [address] [place] [address]Dr. Ravin Dior Cholesterol [Mass/Vol] 159 mg/dL Normal <=200 [facility] Comment on above: Performed By: #### C MP, T7, TSH, LIPID ####[facility] [address] [place] [address]Dr. Ravin Dior Cholesterol in HDL [Mass/Vol] 47 mg/dL Normal 40-60 [facility] Comment on above: Performed By: #### C MP, T7, TSH, LIPID ####[facility] [address] [place] [address]Dr. Ravin Dior Cholesterol in LDL [Mass/Vol] 96.4 mg/dL Normal [facility] Comment on above: Performed By: #### C MP, T7, TSH, LIPID ####[facility] [address] [place] [address]Dr. Ravin Dior Cholesterol.total/Cho lesterol in HDL [Mass ratio] 3.4 {ratio} Normal [facility] Comment on above: Performed By: #### C MP, T7, TSH, LIPID ####[facility] [address] [place] [address]Dr. Ravin Dior HDL NORMAL > or = 60 mg/dl - LO W CARDIOVASCULAR RISK <40 mg/dl - HIGH CARDIOVASCULAR RISK Normal [facility] Comment on above: Performed By: #### C MP, T7, TSH, LIPID ####[facility] [address] [place], [place] [address]Jm. Ravin Dior LDL CALC NORMAL SEE BELOW Normal [facility] Comment on above: Result Comment: <100 mg/dl OPTIMAL 100 - 129 mg/dl NEAR OR ABOVE OPTIMAL 130 - 159 mg/dl BORDERLINE HIGH 160 - 189 mg/dl HIGH >190 mg/dl VERY HIGH Performed By: #### C MP, T7, TSH, LIPID ####[facility] [address] [place], [place] [address]In. Ravin Dior Triglyceride [Mass/Vol] 78 mg/dL Normal <=150 [facility] Comment on above: Performed By: #### C MP, T7, TSH, LIPID ####[facility] [address] [place], [place] [address]No. Ravin Dior VLDL CALC 15.6 mg/dL Normal [facility] Comment on above: Performed By: #### C MP, T7, TSH, LIPID ####[facility] [address] [place], [place] [address]Nx. Ravin Dior MG MAMM SCREEN 3D NIKOS CADon 09-22-2022 MG MAMM SCREEN 3D NIKOS CAD Patient: RADHA GUTIÉRREZ Exam Date: 09/22/2022 : 1945 Gender:F Ordering : HEAVEN STALEY [facility] Admission #: [id number] Family : Order #: [id number] CLICK HERE TO VIEW EXAM RADIOLOGY REPORT [...] Treatments None Family Cancers None LOCATION: [facility] BREAST COMPOSITION: Almost entirely fatty. FINDINGS: DIAGNOSTIC [...] Valenzuela M.D. on 09/22/2022 at 17:02 Normal [facility] PROF 14(COMP METB)on 023 Albumin [Mass/Vol] 3.3 g/dL Critically low 3.4-5.0 [facility] Comment on above: Performed By: #### C MP, T7, TSH, LIPID #### [facility] Laboratory [address] [address] [address] Ravin Dior Albumin/Globulin [Mass ratio] 0.7 {ratio} Normal [facility] Comment on above: Performed By: #### C MP, T7, TSH, LIPID #### [facility] [facility] [address] [address] [address] Ravin Dior ALP [Catalytic activity/Vol] 207 U/L Critically high 46-116 [facility] Comment on above: Performed By: #### C MP, T7, TSH, LIPID #### [facility] [address] [address] [address] Ravin Dior ALT [Catalytic activity/Vol] 47 U/L Normal 14-59 [facility] Comment on above: Performed By: #### C MP, T7, TSH, LIPID #### [facility] [address] [address] [address] Ravin Dior Anion gap [Moles/Vol] 11.5 mmol/L Normal [facility] Comment on above: Performed By: #### C MP, T7, TSH, LIPID #### [facility] [address] [address] [address] Ravin Dior AST [Catalytic activity/Vol] 35 U/L Normal 15-37 [facility] Comment on above: Performed By: #### C MP, T7, TSH, LIPID #### [facility] [address] [address] [address] Ravin Dior Bilirubin [Mass/Vol] 0.6 mg/dL Normal 0.2-1.0 [facility] Comment on above: Performed By: #### C MP, T7, TSH, LIPID #### [facility] [address] [place] [address] Dr. Ravin Dior Calcium [Mass/Vol] 9.2 mg/dL Normal 8.5-10.1 [facility] Comment on above: Performed By: #### C MP, T7, TSH, LIPID #### [facility] [address] [place] [address] Dr. Ravin Dior Chloride [Moles/Vol] 109 mmol/L Critically high 98-107 [facility] Comment on above: Performed By: #### C MP, T7, TSH, LIPID #### [facility] [address] [place] [address] Dr. Ravin Dior CO2 [Moles/Vol] 27.7 mmol/L Normal 21.0-32.[address] [facility] Comment on above: Performed By: #### C MP, T7, TSH, LIPID #### [facility] [address] [place] [address] Dr. Ravin Dior Creatinine [Mass/Vol] 0.94 mg/dL Normal 0.55-1.02 [facility] Comment on above: Performed By: #### C MP, T7, TSH, LIPID #### [facility] [address] [place] [address] Dr. Ravin Dior EGFR-AF [facility] >60 Normal >=[address] [facility] Comment on above: Performed By: #### C MP, T7, TSH, LIPID #### [facility] [address] [place] [address] Dr. Ravin Dior EGFR-NON AF [facility] 58 mL/min/1.73m2 Critically low >=60 [facility] Comment on above: Performed By: #### C MP, T7, TSH, LIPID #### [facility] [address] [place] [address] Dr. Ravin Dior Globulin (S) [Mass/Vol] 4.7 g/dL Normal [facility] Comment on above: Performed By: #### C MP, T7, TSH, LIPID #### [facility] [address] [address] [address] Ravin Dior Glucose [Mass/Vol] 95 mg/dL Normal 74-106 [facility] Comment on above: Performed By: #### C MP, T7, TSH, LIPID #### [facility] [address] [address] [address] Ravin Dior Potassium [Moles/Vol] 4.2 mmol/L Normal 3.5-5.1 [facility] Comment on above: Performed By: #### C MP, T7, TSH, LIPID #### [facility] [address] [place] [address] Dr. Ravin Dior Protein [Mass/Vol] 8.0 g/dL Normal 6.4-8.2 [facility] Comment on above: Performed By: #### C MP, T7, TSH, LIPID #### [facility] [address] [place] [address] Dr. Ravin Dior Sodium [Moles/Vol] 144 mmol/L Normal 136-145 [facility] Comment on above: Performed By: #### C MP, T7, TSH, LIPID #### [facility] [address] [place] [address] Dr. Ravin Dior Urea nitrogen [Mass/Vol] 21.0 mg/dL Critically high 7.0-18.0 [facility] Comment on above: Performed By: #### C MP, T7, TSH, LIPID #### [facility] [address] [place] [address] Dr. Ravin Dior Urea nitrogen/Creatinine [Mass ratio] 22.3 mg/mg Normal [facility] Comment on above: Performed By: #### C MP, T7, TSH, LIPID #### [facility] [address] [address] [address] Ravin Dior TSHon 09-22-2022 TSH 2.085 uIU/mL Normal 0.358-3.740 [facility] Comment on above: Performed By: #### C MP, T7, TSH, LIPID #### [facility] [address] [address] [address] ABD/PELVIS WO CONon [...] was used, including Automated Exposure Control. FINDINGS: Director Of Field Service: No pertinent findings, which are not already [...] the largest most superior hernia. Normal [facility] CBC AUTO DIFFon 05-17-2022 BASO # 0.0 103/ul Normal 0.0-0.1 [facility] Comment on above: Performed By: #### C BC ####[facility] [address] [place], [place] [address]Dr. Ravin Dior Basophils/100 WBC (Bld) 0.2 % Normal 0.2-2.0 [facility] Comment on above: Performed By: #### C BC ####[facility] [address] [place], [place] [address]Dr. Ravin Dior EO # 0.1 103/ul Normal 0.0-0.7 [facility] Comment on above: Performed By: #### C BC ####[facility] [address] [place], [place] [address]Dr. Ravin Dior Eosinophils/100 WBC (Bld) 1.4 % Normal 0.9-7.0 [facility] Comment on above: Performed By: #### C BC ####[facility] [address] [place], [place] [address]Dr. Ravin Dior Erythrocyte distribution width (RBC) [Ratio] 13.7 % Normal 11.0-15.0 [facility] Comment on above: Performed By: #### C BC ####[facility] [address] [place], [place] [address]Dr. Ravin Dior Hematocrit (Bld) [Volume fraction] 44.4 % Normal 36.0-48.0 [facility] Comment on above: Performed By: #### C BC ####[facility] [address] [place], [place] [address]Dr. Ravin Dior Hemoglobin (Bld) [Mass/Vol] 14.7 g/dL Normal 12.0-16.0 [facility] Comment on above: Performed By: #### C BC ####[facility] [address] [address]DrViky Dior IG # 0.05 10e3/ul Critically high 0.00-0.03 [facility] Comment on above: Performed By: #### C BC ####[facility] [address] [address]DrViky Dior IG % 0.5 % Normal 0.0-0.5 [facility] Comment on above: Performed By: #### C BC ####[facility] [address] [address]DrViky Dior LYMPH # 1.7 103/ul Normal 1.2-3.8 [facility] Comment on above: Performed By: #### C BC ####[facility] [address] [address]DrViky Dior Lymphocytes/100 WBC (Bld) 17.1 % Critically low 20.5-60.0 [facility] Comment on above: Performed By: #### C BC ####[facility] [address] [address]DrViky Dior MANUAL DIFF REQ NO Normal [facility] Comment on above: Performed By: #### C BC ####[facility] [address] [address]DrViky Dior MCH (RBC) [Entitic mass] 30.7 pg Normal 26.7-34.0 [facility] Comment on above: Performed By: #### C BC ####[facility] [address] [id number] Dior MCHC (RBC) [Mass/Vol] 33.1 g/dL Normal 29.9-35.2 [facility] Comment on above: Performed By: #### C BC ####[facility] [address] [id number] Dior MCV (RBC) [Entitic vol] 92.7 fL Normal 81.0-99.0 [facility] Comment on above: Performed By: #### C BC ####[facility] [address] [id number]. Ravin Dior MONO # 0.6 103/ul Normal 0.3-0.8 [facility] Comment on above: Performed By: #### C BC ####[facility] [address] [id number]. Ravin Ovi Monocytes/100 WBC (Bld) 5.7 % Normal 1.7-12.0 [facility] Comment on above: Performed By: #### C BC ####[facility] [address] [address]Dr. Ravin Dior NEUT # 7.7 103/ul Critically high 1.4-6.5 [facility] Comment on above: Performed By: #### C BC ####[facility] [address] [address]Dr. Ravin Dior Neutrophils/100 WBC (Bld) 75.1 % Critically high 43.0-75.0 [facility] Comment on above: Performed By: #### C BC ####[facility] [address] [place], [place] [address]Dr. Ravin Dior Platelet mean volume (Bld) [Entitic vol] 10.4 fL Normal 9.5-13.5 [facility] Comment on above: Performed By: #### C BC ####[facility] [address] [id number]. Ravin Dior PLT 294 103/ul Normal 150-450 [facility] Comment on above: Performed By: #### C BC ####[facility] [address] [id number]. Novalilliana Ovi RBC 4.79 106/ul Normal 4.20-5.40 [facility] Comment on above: Performed By: #### C BC ####[facility] [address] [id number]. Novalilliana Ovi WBC 10.2 103/ul Normal 4.0-11.0 The [facility] Comment on above: Performed By: #### C BC ####[facility] [address] [address]Dr. Ravin Dior ER URINE PROFILEon 2 Bilirubin Ql (U) Negative Normal NEGATIVE [facility] Comment on above: Performed By: #### Tammy SOUTH UMICRO #### [facility] [address] [address] [address] Ravin Dior Clarity (U) CLEAR Normal CLEAR [facility] Comment on above: Performed By: #### Tammy SOUTH UMICRO #### [facility] [address] [address] [address] Ravin Dior Color (U) LT. YELLOW Normal YELLOW [facility] Comment on above: Performed By: #### Tammy SOUTH UMICRO #### [facility] [address] [place] [address] Dr. Ravin PARKER A micrscopic examination will be performed if indicated. Normal [facility] Comment on above: Performed By: #### Tammy SOUTH UMICRO #### [facility] [address] [place] [address] Dr. Ravin Dior Glucose Ql (U) Negative Normal NEGATIVE [facility] Comment on above: Performed By: #### Tammy SOUTH UMICRO #### [facility] [address] [place] [address] Dr. Ravin Dior Hemoglobin Ql (U) Negative Normal NEGATIVE [facility] Comment on above: Performed By: #### Tammy SOUTH UMICRO #### [facility] [address] [address] [address] Ravin Dior Ketones Ql (U) TRACE Abnormal NEGATIVE [facility] Comment on above: Performed By: #### Tammy SOUTH UMICRO #### [facility] [address] [place] [address] Dr. Ravin Dior LEUKOCYTES SMALL Abnormal NEGATIVE [facility] Comment on above: Performed By: #### Tammy SOUTH UMICRO #### [facility] [address] [address] [address] Ravin Dior Nitrite Ql (U) Negative Normal NEGATIVE [facility] Comment on above: Performed By: #### ALDA KAUFFMAN #### [facility] [address] [place] [address] Dr. Ravin Dior pH (U) 6.0 [pH] Normal 5-9 [facility] Comment on above: Performed By: #### DENY KAUFFMANRO #### [facility] [address] [address] [address] Ravin Dior SPEC GRAVITY 1.010 Normal 1.005-<=1.025 [facility] Comment on above: Performed By: #### ALDA KAUFFMAN #### [facility] [address] [place] [address] Dr. Ravin Dior UA PROTEIN Negative Normal NEGATIVE/ TRACE [facility] Comment on above: Performed By: #### ALDA KAUFFMAN #### [facility] [address] [place] [address] Dr. Ravin Dior UR MICRO IND INDICATED Normal [facility] Comment on above: Performed By: #### DENY KAUFFMANRO #### [facility] [address] [place] [address] Dr. Ravin Dior Urobilinogen Qn (U) 0.2 {Chandler'U}/dL Normal 0.2 - 1. 0 [facility] Comment on above: Performed By: #### DENY KAUFFMANRO #### [facility] [address] [place] [address] Dr. Ravin Dior LACTATE/LACTIC ACIDon 2021 Lactate [Moles/Vol] 1.3 mmol/L Normal 0.4-1.9 [facility] Comment on above: Performed By: #### L ACT ####[facility] [address] [address]Dr. Ravin Dior LIPASEon 05-17-2022 Lipase [Catalytic activity/Vol] 63.0 U/L Critically low 73.0-393.0 [facility] Comment on above: Performed By: #### C MP, LIPA #### [facility] [address] [address] [address] Ravin Dior PROF 14(COMP METB)on 022 Albumin [Mass/Vol] 3.4 g/dL Normal 3.4-5.0 [facility] Comment on above: Performed By: #### C MP, LIPA #### [facility] [address] [address] [address] Ravin Dior Albumin/Globulin [Mass ratio] 0.8 {ratio} Normal [facility] Comment on above: Performed By: #### C MP, LIPA #### [facility] [address] [address] [address] Ravin Dior ALP [Catalytic activity/Vol] 143 U/L Critically high 46-116 [facility] Comment on above: Performed By: #### C MP, LIPA #### [facility] [address] [address] [address] Ravin Dior ALT [Catalytic activity/Vol] 29 U/L Normal 14-59 [facility] Comment on above: Performed By: #### C MP, LIPA #### [facility] [address] [address] [address] Ravin Dior Anion gap [Moles/Vol] 7.6 mmol/L Normal [facility] Comment on above: Performed By: #### C MP, LIPA #### [facility] [address] [address] [address] Ravin Dior AST [Catalytic activity/Vol] 39 U/L Critically high 15-37 [facility] Comment on above: Performed By: #### C MP, LIPA #### [facility] [address] [address] [address] Ravin Dior Bilirubin [Mass/Vol] 0.7 mg/dL Normal 0.2-1.0 [facility] Comment on above: Performed By: #### C MP, LIPA #### [facility] [address] [address] [address] Ravin Dior Calcium [Mass/Vol] 9.1 mg/dL Normal 8.5-10.1 [facility] Comment on above: Performed By: #### C MP, LIPA #### [facility] [address] [address] [address] Ravin Dior Chloride [Moles/Vol] 102 mmol/L Normal 98-107 [facility] Comment on above: Performed By: #### C MP, LIPA #### [facility] [address] [address] [address] Ravin Dior CO2 [Moles/Vol] 31.1 mmol/L Normal 21.0-32.0 [facility] Comment on above: Performed By: #### C MP, LIPA #### [facility] [address] [address] [address] Ravin Dior Creatinine [Mass/Vol] 0.88 mg/dL Normal 0.55-1.02 [facility] Comment on above: Performed By: #### C MP, LIPA #### [facility] [address] [place] [address] Dr. Ravin Dior EGFR-AF [facility] >60 Normal >=[address] [facility] Comment on above: Performed By: #### C MP, LIPA #### [facility] [address] [place] [address] Dr. Ravni Dior EGFR-NON AF [facility] >60 Normal >=60 [facility] Comment on above: Performed By: #### C MP, LIPA #### [facility] [address] [address] [address] Ravin Dior Globulin (S) [Mass/Vol] 4.5 g/dL Normal [facility] Comment on above: Performed By: #### C MP, LIPA #### [facility] [address] [address] [address] Ravin Dior Glucose [Mass/Vol] 100 mg/dL Normal 74-106 [facility] Comment on above: Performed By: #### C MP, LIPA #### [facility] [address] [place] [address] Dr. Ravin Dior Potassium [Moles/Vol] 3.7 mmol/L Normal 3.5-5.1 [facility] Comment on above: Performed By: #### C MP, LIPA #### [facility] [address] [place] [address] Dr. Ravin Dior Protein [Mass/Vol] 7.9 g/dL Normal 6.4-8.2 [facility] Comment on above: Performed By: #### C MP, LIPA #### [facility] [address] [place] [address] Dr. Ravin Dior Sodium [Moles/Vol] 137 mmol/L Normal 136-145 [facility] Comment on above: Performed By: #### C MP, LIPA #### [facility] [address] [place] [address] Dr. Ravin Dior Urea nitrogen [Mass/Vol] 12.0 mg/dL Normal 7.0-18.0 [facility] Comment on above: Performed By: #### C ROGELIO, LIPA #### [facility] [address] [place] [address] Dr. Ravin Dior Urea nitrogen/Creatinine [Mass ratio] 13.6 mg/mg Normal [facility] Comment on above: Performed By: #### C ROGELIO, LIPA #### [facility] [address] [place] [address] Dr. Ravin Dior URINE MICROSCOPIC ONLYon BACTERIA NONE SEEN Normal NONE SEEN [facility] Comment on above: Performed By: #### Tammy SOUTH UMICRO #### [facility] [address] [place] [address] Dr. Ravin Dior Bacteria identified Cx Nom (U) NOT INDICATED Normal [facility] Comment on above: Performed By: #### Tammy SOUTH UMICRO #### [facility] [address] [place] [address] Dr. Ravin Dior CAST NONE SEEN Normal NONE SEEN [facility] Comment on above: Performed By: #### E BRANNON UMICRO #### [facility] [address] [place] [address] Dr. Ravin Dior Crystals LM Nom (Urine sed) NONE SEEN Normal NONE SEEN [facility] Comment on above: Performed By: #### E RUR, UMICRO #### [facility] [address] [address] [address] Ravin Dior Epithelial cells LM Ql (Urine sed) FEW Abnormal NONE SEEN /RARE [facility] Comment on above: Performed By: #### E RUR, UMICRO #### [facility] [address] [address] [address] Ravin Dior MUCOUS NONE SEEN Normal NONE SEEN [facility] Comment on above: Performed By: #### E RUR, UMICRO #### [facility] [address] [address] [address] Ravin Dior RBC NONE SEEN Abnormal 0-2 [facility] Comment on above: Performed By: #### E RUR, UMICRO #### [facility] [address] [address] [address] Ravin Dior WBC 0-2 Abnormal NONE SEEN [facility] Comment on above: Performed By: #### E RUR, UMICRO #### [facility] [address] [address] [address] Ravin Dior Ambulatory Clinical Summaryo n 07-24-2020 Ambulatory Clinical Summary {[id number]}CD:[id number] Normal [facility] Gastroenterology Office/Clin ic Noteon 07-24-2020 Gastroenterology Office/Clinic [...] course, # 28 cap(s), Refills(s) 0, Pharmacy: [facility]/pharmacy #[id number], 165, cm, 07/24/20 12:03:00 EST, Height/Length Dosing, 95.9, kg, 07/24/20 12:03:00 EST, Weight Dosing metronidazole, 250 mg = 1 tab(s), Oral, TID, X 7 day(s), # 21 tab(s), Refills(s) 0, Pharmacy: [facility]/pharmacy #[id number], 165, cm, 07/24/20 12:03:00 EST, [...] water, # 160 cap(s), Refills(s) 1, Pharmacy: [facility]/pharmacy #[id number], 165, cm, 07/24/20 12:03:00 EST, Height/Length Dosing, 95.9, kg, 07/24/20 12:03:... Orders: pantoprazole, 40 mg = 2 tab(s), Oral, Daily, X 90 day(s), # 180 tab(s), Refills(s) 3, Pharmacy: [facility]/pharmacy #[id number], 165, cm, 07/24/20 12:03:00 EST, Height/Length Dosing, 95.9, kg, 07/24/20 12:03:00 EST, Weight Dosing Follow-up With When Contact Information Isabelle Ramirez MD In 12 months [address], [place] [address]- Additional Instructions: Problem List/Past Medical [...] 12/16/2018 Exercise - Occasional exercise, 12/16/2018 Other Tkmjpqwr-8-7 cups blair;y, 12/16/2018 Substance Abuse - Denies Substance Abuse, 12/16/2018 Tobacco Never (less than 100 in lifetime) Tobacco Use:., 07/24/2020 Never (less than 100 in lifetime) Tobacco Use:. Never Smokeless Tobacco Use:., 02/01/2019 [facility] Comment on above: Result Comment: Elec tronically Signed By: Taylor Mccauley MD, Isabelle\.br\Date and Time Signed: 07/24/20 13:13 EST Auth for Release of Medical Recordson 02-09-2020 Auth for Release of Medical Records [id number] [facility] Patient Letter FTon 2019 Patient Letter [facility] January 24, 2020 RADHA GUTIÉRREZ [address] [place] [address] RADHA GUTIÉRREZ 1945 Dear Radha, This is a reminder that you are due for an appointment with Dr. Garland or Dr. Mccauley. Please call [facility] at [phone] to schedule an appointment at your earliest convenience. Thank you, [facility] Encounters Encounter Date Encounter Type Care Provider Facility Start: 12-20-2023 End: 12-20-2023 ambulatory SANDIE PAGE Not Available Start: 12-16-2023 ambulatory ROBERT [facility] Start: 12-01-2023 End: 12-01-2023 ambulatory ADELAIDA RIZO [facility] Start: 11-25-2023 ambulatory SHAYY [facility] Start: 11-25-2023 Encounter for preprocedural cardiovascular examination SHAYY [facility] Start: 11-24-2023 ambulatory ROBERT [facility] Start: 11-23-2023 ambulatory [facility] Start: 11-11-2023 End: 11-11-2023 ambulatory OSWALDO ELIZALDEHA Not Available Start: 11-01-2023 ambulatory [facility] Start: 11-01-2023 End: 11-01-2023 ambulatory [facility] Start: 08-10-2023 End: 08-10-2023 ambulatory [facility] Start: 07-14-2023 End: 07-14-2023 ambulatory ADELAIDA [facility] Start: 07-05-2023 ambulatory [facility] Start: 07-05-2023 End: 07-05-2023 ambulatory [facility] Start: 06-05-2023 Refill Mac Lujan sser LAND MOBILE RADIO TECHNICIAN-CHAINSTITCH HEMMER Work Phone: [facility] Comment on above: Med Refill Start: 05-18-2023 End: 05-18-2023 ambulatory [facility] Start: 03-23-2023 End: 03-26-2023 ambulatory [facility] Start: 01-25-2023 End: 01-25-2023 ambulatory VIRGIL [facility] Start: 01-18-2023 End: 01-18-2023 ambulatory [facility] Start: 01-05-2023 End: 01-05-2023 ambulatory [facility] Start: 09-22-2022 End: 09-23-2022 ambulatory HEAVEN STALEY Facility:[facility]1 Start: 07-23-2022 End: 07-24-2022 ambulatory HEAVEN STALEY Facility:[facility] Start: 05-17-2022 End: 05-17-2022 ambulatory HEAVEN STALEY Facility:[facility] Start: 03-26-2022 End: 03-27-[address] JAYLON Salmon Facility:[facility] Start: 12-24-2021 End: 12-25-[address] JAYLON ORNELAS . Facility:[facility] Start: 11-04-2021 End: 11-04-[address] JAYLON ORNELAS . Facility: Plan of Treatment Date Care Activity Detail Author Start: 08-25-2023 Adult BMI Screening Adult BMI Screen ing [facility] [employer] [facility] Start: 08-25-2023 Tobacco Screening Tobacco Screening [facility] Start: 01-29-2023 COVID-19 Vaccine ( season) COVID-19 Vaccine ( season) [facility] [employer] [facility] Start: 01-29-2023 Influenza vaccination Influenza Vacc ine [facility] Start: 11-03-2022 ambulatory Ambulatory Facility:H 1 Start: 2010 Fall Risk Screening Fall Risk Screen ing [facility] [employer] [facility] Start: 1995 Administration of varicella zoster vaccine Zoster (Shingles) Vaccine (1 of 2) [facility] [employer] Start: 1964 DTaP,Tdap and Td Vac cines (1 - Tdap) DTaP,Tdap and Td Vaccines (1 - Tdap) [facility] Start: 1963 Adult BMI Follow Up Plan Adult BMI Follow Up Plan [facility] [employer] [facility] Start: 1957 Depression Screening Depression Scre ening [facility] [employer] [facility] Start: 1945 Medicare Annual Well ness Visit Medicare Annual Wellness Visit [facility] [employer] [facility] End: 06-08-2024 Basic metabolic 2000 panel - Serum or Plasma Basic Metabolic Panel Lab Routine Essential hypertension 1 Occurrences starting 06/08/2023 until 06/08/2024 [facility] Work Phone: Comment on above: 1 Occurrences starti ng 06/08/2023 until 06/08/2024 Immunizations Immunization Date Immunization Notes Care Provider Fa sherie 05-08-2021 influenza virus vaccine, unspecified formulation Mac Erwin LAND MOBILE RADIO TECHNICIAN-CHAINSTITCH HEMMER Work Phone: [facility] [employer] [facility] Payers Date Payer Category Payer Medicare HUMANA MEDICARE HU[employer]NA MEDICARE - ID RESIDENT [id number] 2013-Present [phone] [place] [id number] 1959 Medicare [id number] 1945 Unknown [id number] 1945 Unknown [id number] 1945 Unknown [id number] 1945 Unknown [id number] 1945 Unknown [id number] 1945 Unknown [id number] 1945 Unknown [id number] 1945 Unknown [id number] 9 1945 Unknown [id number] 9 Social History Date Type Detail Facility Start: 05-26-2022 Tobacco smoking stat [facility] Never smoked tobacco [facility] Start: 05-26-2022 Tobacco use and exposure Smoke less tobacco non-user [facility] Start: 08-24-2022 Alcohol intake 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 Medical Equipment Procedure Code Equipment Code Equipment Origin al Text Equipment Identifier Dates Mesh [id number] 3d Rect Plstr Clgn Symbotex 2 Sd Comp Mfl Babsr Rpl [id number] - [facility] - [id number] Start: 06-30-2022 Dev Clsr 30fr Watchman 30mm - [id number] Start: 10-28-2018 Clinical Notes 12-24-2021 to 12-01-2023 Note Date & Type Note Facility 12-01-2023 Note Currently pt is doin g quite well s/p recent AV node ablation Remains V paced with BI-V AICd [facility] 12-01-2023 Note No anticoagulation currently [facility] 12-01-2023 Note UTP CARDIOLOGY PROGR ESS [...] GI bleed. She was previously seen by [facility] cardiology. She was initially seen by [...] Conjunctivae normal. (more content not included)... [facility] 12-01-2023 Note Patient here for fol low up AV node ablation performed on 11/01/[address] Madden. She denies chest pain, SOB, palpitations, and lightheadedness/syncope. Review of Systems Musculoskeletal: Positive for arthritis and back pain. All other systems reviewed and are negative. [facility] 11-01-2023 Note AV NODE ABLATION PRO CEDURE REPORT DATE OF PROCEDURE: 11/01/2023 PERFORMING PHYSICIAN: Dr. Robert Madden NON CLINICAL ADVISOR: TOÑA CONSENT: Patient NAME OF THE PROCEDURE: [...] GI bleed. She was previously seen by [facility] cardiology. She was initially seen by [...] anticoagulation. Robert Madden MD Cardiac Electrophysiology. [facility] 11-01-2023 Note Patient: Radha mcghee Procedure Information Date/Time: 11/01/23829 Procedure: AV node ablation Location: [facility] 1 EP / [facility] (Cath) [...] with patient who. Additional Equipment Requests [facility] 11-01-2023 Note ID Electrophysiology Consult Note Reason for visit: Afib [...] [facility]. [facility] [...] on file Intimate Partner Violence: Unknown (07/23/2023) ID Safety & Environment Fear of Current or [...] mg tab (more content not included)... [facility] 08-27-2023 Note ca [facility] 07-14-2023 Note stable [facility] 07-14-2023 Note Patient here for wou nd check s/p BiV ICD implant on 07/05/[address] Madden. [facility] 07-14-2023 Note UTP CARDIOLOGY PROGR ESS [...] GI bleed. She was previously seen by [facility] cardiology. She was initially seen by [...] General: No (more content not included)... [facility] 07-14-2023 Note Site well approximat ed and healing well No s/s of infection or hematoma, + ecchymosis noted [facility] 07-14-2023 Note -[id number] at [facility] 5 for age x2, gender, hypertension, CHF, on aspirin s/p watchmen Continue meds as prescribed [facility] 07-05-2023 Note PIPE LINE GAUGER-D IMPLANT PROCED URE NOTE DATE OF PROCEDURE: 07/05/2023 PERFORMING PHYSICIAN: Dr. Robert Madden NON CLINICAL ADVISOR: TOÑA CONSENT: Patient LOCATION: Insurance Service Representative PROCEDURE PERFORMED: 1. Implantation of Biventricular ICD ([employer]). 2. U/S venous access 3. Coronary [...] GI bleed. She was previously seen by [facility] cardiology. She was initially seen by [...] occasions using seldinger technique using a 5 English micropunture needle and exchanged for 0.034 wire. I decided to proceed with opening of the pocket. Localinfiltration of 1% Lidocaine was performed and an incision was created in the left upper chest. Dissection was then performed using cautery down. An active fixation [employer] ICD lead was then delivered through [...] to perform the LV lead placement. A [place] sheath was advanced into the RV over [...] The leads were then attached to a [employer] PIPE LINE GAUGER-D device with atrial ort capped and the [...] was hemodynamically (more content not included)... [facility] 07-05-2023 Note Patient: Radha mcghee Procedure Information Date/Time: 07/05/23 1400 Procedure: Implant ICD - biventricular Location: [facility] 1 EP / [facility] VASCULAR LAB (Cath) Providers: Robert Madden MD Clinical information reviewed: Allergies Meds Physical Exam Airway Mallampati: II TM distance: >3 FB Neck ROM: full Cardiovascular Dental Pulmonary Abdominal Anesthesia Plan ASA 2 CSE Anesthetic plan and risks discussed with patient. Use of blood products discussed with patient who. Additional Equipment Requests [facility] 05-18-2023 Note ID Electrophysiology Consult Note Reason for visit: Afib [...] GI bleed. She was previously seen by [facility] cardiology. She was initially seen by [...] well-nourished, we (more content not included)... [facility] 03-23-2023 Note ID Electrophysiology Consult Note Reason for visit: Afib HPI: Radha Gutiérrez is a 77 y.o. year old with past medical history of HFrEF with EF of 35% as per an echocardiogram in May 2022, nonobstructive coronary artery disease as per cath on 01/05/2023 who previously had undergone a Watchman procedure in 2019 due to GI bleed. She was previously seen by [facility] cardiology. She was initially seen by [...] cyanosis, no (more content not included)... [facility] 02-04-2023 Note -s/p watchmen 2019[facility] Note -[id number] at [facility] 5 for age x2, gender, hypertension, CHF, [...] due to unclear risk of stroke [facility] 02-04-2023 Note -will need BiV ICD if ICD indica halie [facility] 02-04-2023 [facility] Note -NYHA II, NICM, HFrE F EF 35%, pending MUGA scan in 2-3 months to reassess EF for ICD -nonobstruc cors 12/2022 -ct gdmt -she appears euvolemic and compensated [facility] 02-04-2023 Note -adv compliance with cpap Kush masseyzenon [facility] 01-25-2023 Note Patient here to disc uss possible afib ablation per Dr. Jefferson. She will be scheduled for muga scan in Mar 2023. Review of Systems Cardiovascular: Positive for dyspnea on exertion. All other systems reviewed and are negative. [facility] 01-25-2023 Note [facility] Electrophysiology Consult Note [...] Jefferson for her A-fib. She was following [facility] and self-referred to [facility] cardiology for second opinion. She recently [...] no ulcer, (more content not included)... [facility] 01-18-2023 Note [facility] Note Chief Complaint: Patient here [...] TTE 06/08/22 Nonischemic cardiomyopathy Normal coronaries by [facility] 2013 and 2022 Mitral regurgitation, moderate by TTE 05/2022 Persistent atrial fibrillation s/p repeat ca (more content not included)... [facility] 01-05-2023 Note Cardiovascular Labor atory Report [...] left radial artery was obtained. A 6 English glide sheath was inserted without difficulty. Bilateral [...] heart failure with reduced ejection fraction [facility] 07-23-2022 Note PAIN MANAGEMENT CONS ULTATION [...] months' time or sooner if needed. [facility] 03-26-2022 Note CONSULTATION CONSULTATION DATE: 03/26/2022 This [...] agrees with the plan of care. [facility] 12-24-2021 Note CONSULTATION PROCEDURE DATE: 12/24/2021 PREOPERATIVE [...] the procedure well with no complications. [facility] 12-24-2021 Note CONSULTATION CONSULTATION DATE: 12/24/2021 HISTORY [...] three months' time, unless otherwise indicated. [facility] Evaluation note Diagnosis Essential hypertension- Primary Unspecified essential hypertension documented in this encounter [facility] System[facility]ructionsNot on filedocumented in this encounter [facility] Summary Purpose Family History No Family History Records FoundNo Family History Records FoundNo Family History Records FoundNo Family History Records Found Advance Directives No Advanced Directives Records FoundNo Advanced Directives Records FoundNo Advanced Directives Records FoundNo Advanced Directives Records Found Additional Source Comments INFORMATION SOURCE (unrecogn ized section and content) DATE CREATED AUTHOR 07/25/2020 [facility] DATE CREATED AUTHOR AUTHOR'S ORGANIZ ATION 10/12/2022 [facility] DATE CREATED AUTHOR AUTHOR'S ORGANIZ ATION 12/19/2023 [facility] DATE CREATED AUTHOR AUTHOR'S ORGANIZ ATION 12/22/2023 [facility] d[facility] Specialists EPIC Reason for Visit (unrecogniz ed section and content) Reason Comments Med Refill Care Teams (unrecognized sec tion and content) 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 [facility]. provides no warranty or guarantee of the accuracy or completeness of information in this document.
== END 2023-12-27 13:15 | disposition home or self-care (01) ==
LOC: CT 13:16
PROVIDERS: PCP Nurse Practitioner Family; Visit Provider Nurse Practitioner
DX: M48.062 Spinal stenosis, lumbar region with neurogenic claudication (principal); M51.36 Other intervertebral disc degeneration, lumbar region
CPT/HCPCS: 72131

== ENCOUNTER 2024-01-13 07:33 | Outpatient (OUT) | payer MEDICARE, SELFPAY ==
--- OUTSIDE RECORDS SUMMARY | 2024-01-13 07:37 | XMS_ITS | CCD ---
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 Primary Care Unavailable RODRIGUEZ ., SABRINA Consulting Unavailable ORNELAS ., DR JAYLON Ruelas Admitting Unavailable ORNELAS ., DR JAYLON Ruelas Attending Unavailable [facility] Care Unavailable RODRIGUEZ ., SABRINA Consulting Unavailable [facility] Primary Care Unavailable LAKSHMIPATHY ., NARENDRANATH Admitting Charity vailable LAKSHMIPATHY ., NARENDRANATH Attending Charity vailable LAKSHMIPATHY ., NARENDRANATH Consulting Charity vailable LAKSHMIPATHY ., NARENDRANATH Admitting Charity vailable LAKSHMIPATHY ., NARENDRANATH Attending Charity vailable [facility] Primary Care Unavailable LUÍS, HEAVEN Admitting Unavailable HEAVEN STALEY Attending Unavailable [facility] Primary Care Unavailable DR SHAR VALENZUELA Consulting Unavailable LUÍS, HEAVEN Consulting Unavailable [facility] Primary Care Unavailable DAREK ., KEILY Admitting Unavailable DAREK ., KEILY Attending Unavailable DAREK ., KEILY Consulting Unavailable KELSIE DEL ANGEL Consulting Unavailable Heaven Steven Primary Care Provider ROBERT MADDEN Attending Unavailable SHAYY ORTIZ Referring Unavailable ROBERT MADDEN Referring Unavailable ROBERT MADDEN Referring Unavailable ROBERT MADDEN Referring Unavailable ROBERT MADDEN Referring Unavailable ROBERT MADDEN Referring Unavailable ROBERT MADDEN Admitting Unavailable ROBERT MADDEN Attending Unavailable ROBERT MADDEN Referring Unavailable ROBERT MADDEN Admitting Unavailable NAVID, ROBERT Attending Unavailable ROBERT MADDEN Referring Unavailable HSAYY ORTIZ Referring Unavailable VIRGIL FOLEY Attending Unavailable JERSON JEFFERSON Attending Unavailable ROBERT MADDEN Referring Unavailable ADELAIDA RIZO Attending Unavailable ROBERT MADDEN Attending Unavailable ADELAIDA RIZO Attending Unavailable ROBERT MADDEN Referring Unavailable ROBERT MADDEN Referring Unavailable SHAR GARCÍA Attending Unavailable SANDIE PAGE Attending Unavailable HEAVEN STALEY Referring Unavailable SANDIE PAGE Attending Unavailable Allergies Allergy Classification Reported Allergen(s) Allergy Type Date of Onset Reaction(s) Facility (2 sources) Codeine; Translations: [CODEINE] Drug Allergy 06-06-2014 [facility] Repository (1 source) Codeine Drug Allergy 06-06-2014 [facility] (2 sources) Lisinopril; Translations: [LISINOPRIL] Drug Allergy 10-19-2014 [facility] (1 source) pregabalin; Translations: [PREGABALIN] Drug Allergy 12-01-2023 [facility] Repository Medications Current Medications Medication Drug [...] 30 tablet 1 06/08/2023 Active lactobacillus acidophilus [id number] unt oral capsule (1 source) take 1 [...] heart failure) ([facility]) Take 1 tablet (25 mg total) by [...] (BMI) 34.0-34.9, adult] Onset: 02-18-2022 02-18-2022 Chronic Other screening for suspected conditions (not mental disorders or infectious disease) (1 source) Encounter for screening mammogram for malignant neoplasm of breast; Translations: [ENC SCR MAMMO MALIG NEOPLASM BREAST] Onset: 09-26-2022 Episodic Darleen-; endo-; and myocarditis; cardiomyopathy (except that [...] senior care (current) drug therapy; Translations: [OTH SENIOR CARE MANAGER CURRENT DRUG THERAPY] Onset: 05-19-2022 Episodic [...] breath] Onset: 07-02-2016 Resolved: 08-25-2018 08-25-2018 Episodic Residual codes; unclassified (1 source) Acquired [...] Range Facility Office Visiton 12-01-2023 Follow-up visit [id number] Saul Gutiérrez 1945 F Date Provider Department Center 12/01/2023 [facility] VALENCIA [facility] Family History Problem Relation Age of Onset Heart failure Father Family Status - Relation Status Age at Father Level of Service:58890 [place] POSTOP FOLLOW UP VISIT RELATED TO ORIGINAL PX Normal [facility] HPon 11-01-2023 [facility] Electrophysiology Consult Note Reason for visit: [...] side. 03/23/23 HPI: Saul Gutiérrez is a 78 y.o. year old with past medical history of HFrEF with EF of 35% as per an echocardiogram in May 2022, nonobstructive coronary artery disease as per cath on 01/05/2023 who previously had undergone a Watchman procedure in 2019 due to GI bleed. She was previously seen by [facility] cardiology. She was initially seen by [...] on file Intimate Partner Violence: Unknown (07/23/2023) [place] Safety & Environment Fear of Current or [...] 50 mg tab (more content not included)... Normal [facility] NURSNOTEon 11-01-2023 NURSNOTE RN educated pt on d/ c instructions. RN encouraged pt to voice any questions or concerns. Pt verbalizes no questions or concerns at this time. Normal [facility] Orders Onlyon 10-22-2023 Orders Only [id number] Saul Gutiérrez 1945 F Date Provider Department Center 10/22/2023 DEMOND RAMOS [facility] [place] [facility] Family History Problem Relation Age of Onset Heart failure Father Family Status - Relation Status Age at Father [facility] Orders Onlyon 08-27-2023 Orders Only [id number] Saul Gutiérrez 1945 F Date Provider Department Center 08/27/2023 LEATHA BAHENA Family History Problem Relation Age of Onset Heart failure Father Family Status - Relation Status Age at Father Normal [facility] Office Visiton 07-14-2023 Follow-up visit [id number] Saul Gutiérrez 1945 F Date Provider Department Center 07/14/2023 ADELAIDA VALENCIA MAGNUS [facility] Family History Problem Relation Age of Onset Heart failure Father Family Status - Relation Status Age at Father Level of Service:37097 [place] POSTOP FOLLOW UP VISIT RELATED TO ORIGINAL PX Normal [facility] HPon 07-05-2023 [facility] Electrophysiology Consult Note Reason for visit: [...] GI bleed. She was previously seen by [facility] cardiology. She was initially seen by [...] Appearance: well-nourished, we (more content not included)... [facility] NURSNOTEon 07-05-2023 NURSNOTE RN educated pt on d/ c instructions. RN encouraged pt to voice any questions or concerns. Pt verbalizes no questions or concerns at this time. Pt was wheeled off of unit with all of belongings. [facility] NURSNOTE CHG wipes and betadine nasal swabs completed. [facility] Orders Onlyon 07-05-2023 Orders Only [id number] Saul Gutirérez 1945 Provider Department Center 07/05/2023 ELENA ATWOOD [facility] [place] [facility] Family History Problem Relation Age of Onset Heart failure Father Family Status - Relation Status Age at Father [facility] Office Visiton 05-18-2023 Follow-up visit [id number] Saul Gutiérrez 1945 Provider Department Center 05/18/2023 Antonietta-ROBERT MADDEN MAGNUS [place] Family History Problem Relation Age of Onset Heart failure Father Family Status - Relation Status Age at Father Level of Service:27146 [place] OFFICE/OUTPATIENT ESTABLISHED MOD MDM 30 MIN (GC) [facility] Office Visiton 03-23-2023 Follow-up visit [id number] Saul Gutiérrez 1945 F Date Provider Department Center 03/23/2023 AntoniettaROBERT SHELBY CARD [facility] Family History Problem Relation Age of Onset Heart failure Father Family Status - Relation Status Age at Father Level of Service:45484 [place] OFFICE/OUTPATIENT NEW MODERATE MDM 45-59 MINUTES Normal [facility] Office Visiton 01-25-2023 Follow-up visit [id number] Saul Gutiérrez 1945 F Date Provider Department Center 01/25/2023 Nneka6-VIRGIL FOLEY CARD [facility] Family History Problem Relation Age of Onset Heart failure Father Family Status - Relation Status Age at Father Level of Service:26043 [place] OFFICE/OUTPATIENT ESTABLISHED MOD MDM 30-39 MIN Normal [facility] Office Visiton 01-18-2023 Follow-up visit [id number] Saul Gutiérrez 1945 F Date Provider Department Center 01/18/2023 271-JERSON JEFFERSON CARD [facility] Family History Problem Relation Age of Onset Heart failure Father Family Status - Relation Status Age at Father Level of Service:23786 [place] OFFICE/OUTPATIENT ESTABLISHED MOD MDM 30-39 MIN Normal [facility] INSULINon 09-23-2022 Insulin 7.9 uIU/mL Normal 2.6-24.9 [facility] Comment on above: Performed By: #### I NSULIN ####[facility] [address] [address]Dr. Ravin Dior CBC AUTO DIFFon 09-22-2022 BASO # 0.0 103/ul Normal 0.0-0.1 [facility] Comment on above: Performed By: #### C BC ####[facility] [address] [address]DrViky Dior Basophils/100 WBC (Bld) 0.4 % Normal 0.2-2.0 [facility] Comment on above: Performed By: #### C BC ####[facility] [address] [address]Dr. Ravin Dior EO # 0.6 103/ul Normal 0.0-0.7 [facility] Comment on above: Performed By: #### C BC ####[facility] [address] [address]Dr. Ravin Ovi Eosinophils/100 WBC (Bld) 6.6 % Normal 0.9-7.0 [facility] Comment on above: Performed By: #### C BC ####[facility] [address] [place], [place] [address]Dr. Ravin Ovi Erythrocyte distribution width (RBC) [Ratio] 16.2 % Critically high 11.0-15.0 [facility] Comment on above: Performed By: #### C BC ####[facility] [address] [place], [place] [address]Dr. Novalilliana Dior Hematocrit (Bld) [Volume fraction] 43.3 % Normal 36.0-48.0 [facility] Comment on above: Performed By: #### C BC ####[facility] [address] [place], [place] [address]Dr. Ravin Ovi Hemoglobin (Bld) [Mass/Vol] 13.4 g/dL Normal 12.0-16.0 [facility] Comment on above: Performed By: #### C BC ####[facility] [address] [place], [place] [address]Dr. Ravin Dior IG # 0.05 10e3/ul Critically high 0.00-0.[address] [facility] Comment on above: Performed By: #### C BC ####[facility] [address] [place], [place] [address]Dr. Ravin Dior IG % 0.5 % Normal 0.0-0.5 [facility] Comment on above: Performed By: #### C BC ####[facility] G[address] [place], [place] [address]DrViky Dior LYMPH # 2.1 103/ul Normal 1.2-3.8 [facility] Comment on above: Performed By: #### C BC ####[facility] Cqortvb[address]bz[address] [place], [place] [address]Dr. Ravin Dior Lymphocytes/100 WBC (Bld) 23.1 % Normal 20.5-60.0 [facility] Comment on above: Performed By: #### C BC ####[facility] [address] [address]DrViky Dior MANUAL DIFF REQ NO Normal [facility] Comment on above: Performed By: #### C BC ####[facility] [address] [address]Dr. Ravin Dior MCH (RBC) [Entitic mass] 29.5 pg Normal 26.7-34.0 [facility] Comment on above: Performed By: #### C BC ####[facility] H[address] [place], [place] [address]Dr. Ravin Dior MCHC (RBC) [Mass/Vol] 30.9 g/dL Normal 29.9-35.2 [facility] Comment on above: Performed By: #### C BC ####[facility] [address] [place], [place] [address]Dr. Ravin Dior MCV (RBC) [Entitic vol] 95.4 fL Normal 81.0-99.0 [facility] Comment on above: Performed By: #### C BC ####[facility] [address] [place], [place] [address]DrViky Dior MONO # 0.5 103/ul Normal 0.3-0.8 [facility] Comment on above: Performed By: #### C BC ####[facility] [address] [place], [place] [address]Dr. Ravin Dior Monocytes/100 WBC (Bld) 5.8 % Normal 1.7-12.0 [facility] Comment on above: Performed By: #### C BC ####[facility] [address] [place], [place] [address]DrViky Dior NEUT # 5.8 103/ul Normal 1.4-6.5 [facility] Comment on above: Performed By: #### C BC ####[facility] [address] [place], [place] [address]DrViky Dior Neutrophils/100 WBC (Bld) 63.6 % Normal 43.0-75.0 [facility] Comment on above: Performed By: #### C BC ####[facility] [address] [place] [id number] Ravin Dior Platelet mean volume (Bld) [Entitic vol] 10.7 fL Normal 9.5-13.5 [facility] Comment on above: Performed By: #### C BC ####[facility] [address] [id number]. Ravin Ovi PLT 223 103/ul Normal 150-450 [facility] Comment on above: Performed By: #### C BC ####[facility] [address] [id number] Ravin Ovi RBC 4.54 106/ul Normal 4.20-5.40 [facility] Comment on above: Performed By: #### C BC ####[facility] [address] [place] [id number] Ravin Ovi WBC 9.2 103/ul Normal 4.0-11.0 [facility] Comment on above: Performed By: #### C BC ####[facility] [address] [place] [id number]. Bhattlilliana Ovi FREE THYROXINE INDEX T7on FTI 2.44 Normal 1.30-4.50 [facility] Comment on above: Performed By: #### C MP, T7, TSH, LIPID #### [facility] [address] [address] [address] Ravin Dior T3U 33.0 % Normal 30.0-39.0 [facility] Comment on above: Performed By: #### C MP, T7, TSH, LIPID #### [facility] [address] [address] [address] Ravin Dior T4 [Mass/Vol] 7.40 ug/dL Normal 4.80-13.90 [facility] Comment on above: Performed By: #### C MP, T7, TSH, LIPID #### [facility] [address] [address] [address] Ravin Dior GLYCOHEMOGLOBIN A1Con 2022 ADA RECOMMENDATION SEE BELOW Normal [facility] Comment on above: Result Comment: ADA RECOMMENDED LIMIT 4.0 - 6.0 ADA THERAPEUTIC TARGET < 7.0 ACTION SUGGESTED > 7.0 Performed By: #### A 1C ####[facility] [address] [address]Dr. Ravin Dior Glucose [Mass/Vol] 105 mg/dL Normal [facility] Comment on above: Performed By: #### A 1C ####[facility] [address] [address]Dr. Ravin Dior HbA1c (Bld) [Mass fraction] 5.3 % Normal 4.5-6.2 [facility] Comment on above: Performed By: #### A 1C ####[facility] [address] [address]Dr. Ravin Dior IRONon 09-22-2022 Iron [Mass/Vol] 81.0 ug/dL Normal 50.0-170.0 [facility] Comment on above: Performed By: #### I SEAMUS ####[facility] [address] [address]Dr. Ravin Dior LIPID PROFILEon 09-22-2022 CHOL-HDL RATIO NORM SEE BELOW Normal [facility] Comment on above: Result Comment: 3.3 - 4.4 LOW RISK 4.4 - 7.1 AVERAGE RISK 7.1 - 11.0 MODERATE RISK >11.0 HIGH RISK Performed By: #### C MP, T7, TSH, LIPID ####[facility] [address] [address]Dr. Ravin Dior Cholesterol [Mass/Vol] 159 mg/dL Normal <=200 [facility] Comment on above: Performed By: #### C MP, T7, TSH, LIPID ####[facility] [address] [id number]. Ravin Dior Cholesterol in HDL [Mass/Vol] 47 mg/dL Normal 40-60 [facility] Comment on above: Performed By: #### C MP, T7, TSH, LIPID ####[facility] [address] [place] [id number]. Ravin Dior Cholesterol in LDL [Mass/Vol] 96.4 mg/dL Normal [facility] Comment on above: Performed By: #### C MP, T7, TSH, LIPID ####[facility] [address] [id number]. Ravin Dior Cholesterol.total/Cho lesterol in HDL [Mass ratio] 3.4 {ratio} Normal [facility] Comment on above: Performed By: #### C MP, T7, TSH, LIPID ####[facility] [address] [id number]. Ravin Dior HDL NORMAL > or = 60 mg/dl - LO W CARDIOVASCULAR RISK <40 mg/dl - HIGH CARDIOVASCULAR RISK Normal [facility] Comment on above: Performed By: #### C MP, T7, TSH, LIPID ####[facility] [address] [address]Dr. Ravin Dior LDL CALC NORMAL SEE BELOW Normal [facility] Comment on above: Result Comment: <100 mg/dl OPTIMAL 100 - 129 mg/dl NEAR OR ABOVE OPTIMAL 130 - 159 mg/dl BORDERLINE HIGH 160 - 189 mg/dl HIGH >190 mg/dl VERY HIGH Performed By: #### C MP, T7, TSH, LIPID ####[facility] [address] [place] [id number]. Ravin Dior Triglyceride [Mass/Vol] 78 mg/dL Normal <=150 [facility] Comment on above: Performed By: #### C MP, T7, TSH, LIPID ####[facility] [address] [place] [id number]. Ravin Dior VLDL CALC 15.6 mg/dL Normal [facility] Comment on above: Performed By: #### C MP, T7, TSH, LIPID ####[facility] [address] [place] [id number]. Ravin Dior MG MAMM SCREEN 3D NIKOS CADon 09-22-2022 MG MAMM SCREEN 3D NIKOS CAD Patient: SAUL GUTIÉRREZViky Exam Date: 09/22/2022 : 1945 Gender:F Ordering : HEAVEN STALEY [facility] Admission #: [id number] Family : Order #: [id number] CLICK HERE TO VIEW EXAM RADIOLOGY REPORT [...] Treatments None Family Cancers None LOCATION: [facility] BREAST COMPOSITION: Almost entirely fatty. [...] Valenzuela M.D. on 09/22/2022 at 17:02 Normal [facility] PROF 14(COMP METB)on 023 Albumin [Mass/Vol] 3.3 g/dL Critically low 3.4-5.0 Th e [facility] Comment on above: Performed By: #### C MP, T7, TSH, LIPID #### [facility] [address] [address] [address] Ravin Dior Albumin/Globulin [Mass ratio] 0.7 {ratio} Normal [facility] Comment on above: Performed By: #### C MP, T7, TSH, LIPID #### [facility] [address] [address] [address] Ravin Dior ALP [Catalytic activity/Vol] 207 U/L Critically high 46-116 [facility] Comment on above: Performed By: #### C MP, T7, TSH, LIPID #### [facility] [address] [address] [address] Ravin Dior ALT [Catalytic activity/Vol] 47 U/L Normal 14-59 [facility] Comment on above: Performed By: #### C MP, T7, TSH, LIPID #### [facility] [address] [address] [address] Ravin Dior Anion gap [Moles/Vol] 11.5 mmol/L Normal [facility] Comment on above: Performed By: #### C MP, T7, TSH, LIPID #### [facility] [address] [place] [address] Dr. Ravin Dior AST [Catalytic activity/Vol] 35 U/L Normal 15-37 [facility] Comment on above: Performed By: #### C MP, T7, TSH, LIPID #### [facility] [address] [place] [address] Dr. Ravin Dior Bilirubin [Mass/Vol] 0.6 mg/dL Normal 0.2-1.0 [facility] Comment on above: Performed By: #### C MP, T7, TSH, LIPID #### [facility] [address] [place] [address] Dr. Ravin Dior Calcium [Mass/Vol] 9.2 mg/dL Normal 8.5-10.1 [facility] Comment on above: Performed By: #### C MP, T7, TSH, LIPID #### [facility] [address] [place] [address] Dr. Ravin Dior Chloride [Moles/Vol] 109 mmol/L Critically high 98-107 [facility] Comment on above: Performed By: #### C MP, T7, TSH, LIPID #### [facility] [address] [place] [address] Dr. Ravin Dior CO2 [Moles/Vol] 27.7 mmol/L Normal 21.0-32.0 [facility] Comment on above: Performed By: #### C MP, T7, TSH, LIPID #### [facility] [address] [place] [address] Dr. Ravin Dior Creatinine [Mass/Vol] 0.94 mg/dL Normal 0.55-1.02 [facility] Comment on above: Performed By: #### C MP, T7, TSH, LIPID #### [facility] [address] [address] [address] Ravin Dior EGFR-AF [place] >60 Normal >=60 [facility] Comment on above: Performed By: #### C MP, T7, TSH, LIPID #### [facility] [address] [address] [address] Ravin Dior EGFR-NON AF [place] 58 mL/min/1.73m2 Critically low >=60 [facility] Comment on above: Performed By: #### C MP, T7, TSH, LIPID #### [facility] [address] [address] [address] Ravin Dior Globulin (S) [Mass/Vol] 4.7 g/dL Normal [facility] Comment on above: Performed By: #### C MP, T7, TSH, LIPID #### [facility] [address] [place] [address] Dr. Ravin Dior Glucose [Mass/Vol] 95 mg/dL Normal 74-106 [facility] Comment on above: Performed By: #### C MP, T7, TSH, LIPID #### [facility] [address] [place] [address] Dr. Ravin Dior Potassium [Moles/Vol] 4.2 mmol/L Normal 3.5-5.1 [facility] Comment on above: Performed By: #### C MP, T7, TSH, LIPID #### [facility] [address] [place] [address] Dr. Ravin Dior Protein [Mass/Vol] 8.0 g/dL Normal 6.4-8.2 [facility] Comment on above: Performed By: #### C MP, T7, TSH, LIPID #### [facility] [address] [place] [address] Dr. Ravin Dior Sodium [Moles/Vol] 144 mmol/L Normal 136-145 [facility] Comment on above: Performed By: #### C MP, T7, TSH, LIPID #### [facility] [address] [place] [address] Dr. Ravin Dior Urea nitrogen [Mass/Vol] 21.0 mg/dL Critically high 7.0-18.0 [facility] Comment on above: Performed By: #### C MP, T7, TSH, LIPID #### [facility] [address] [address] [address] Ravin Dior Urea nitrogen/Creatinine [Mass ratio] 22.3 mg/mg Normal [facility] Comment on above: Performed By: #### C MP, T7, TSH, LIPID #### [facility] [address] [address] [address] Ravin Dior TSHon 09-22-2022 TSH 2.085 uIU/mL Normal 0.358-3.740 [facility] Comment on above: Performed By: #### C MP, T7, TSH, LIPID #### [facility] [address] [address] [address] ABD/PELVIS WO CONon [...] was used, including Automated Exposure Control. FINDINGS: Machine Stuffer: No pertinent findings, which are not already [...] the largest most superior hernia. Normal [facility] CBC AUTO DIFFon 05-17-2022 BASO # 0.0 103/ul Normal 0.0-0.1 [facility] Comment on above: Performed By: #### C BC ####[facility] [address] [id number]. Ravin Dior Basophils/100 WBC (Bld) 0.2 % Normal 0.2-2.0 [facility] Comment on above: Performed By: #### C BC ####[facility] [address] [place], [place] [address]ZfViky Dior EO # 0.1 103/ul Normal 0.0-0.7 [facility] [facility] Comment on above: Performed By: #### C BC ####[facility] [address] [place], [place] [address]EjViky Dior Eosinophils/100 WBC (Bld) 1.4 % Normal 0.9-7.0 [facility] Comment on above: Performed By: #### C BC ####[facility] [address] [place] [address]Dr. Ravin Dior Erythrocyte distribution width (RBC) [Ratio] 13.7 % Normal 11.0-15.0 [facility] Comment on above: Performed By: #### C BC ####[facility] [address] [place] [address]Dr. Ravin Dior Hematocrit (Bld) [Volume fraction] 44.4 % Normal 36.0-48.0 [facility] Comment on above: Performed By: #### C BC ####[facility] Os[address] [place], [place] [address]Dr. Ravin Dior Hemoglobin (Bld) [Mass/Vol] 14.7 g/dL Normal 12.0-16.0 [facility] Comment on above: Performed By: #### C BC ####[facility] B[address] [place], [place] [address]Dr. Ravin Dior IG # 0.05 10e3/ul Critically high 0.00-0.03 [facility] Comment on above: Performed By: #### C BC ####[facility] Il[address] [place], [place] [address]Dr. Ravin Dior IG % 0.5 % Normal 0.0-0.5 [facility] Comment on above: Performed By: #### C BC ####[facility] [address] [place], [place] [address]Dr. Ravin Dior LYMPH # 1.7 103/ul Normal 1.2-3.8 [facility] Comment on above: Performed By: #### C BC ####[facility] Vtor[address] [place], [place] [address]Dr. Ravin Dior Lymphocytes/100 WBC (Bld) 17.1 % Critically low 20.5-60.0 [facility] Comment on above: Performed By: #### C BC ####[facility] Y[address] [place], [place] [address]Dr. Ravin Dior MANUAL DIFF REQ NO Normal [facility] Comment on above: Performed By: #### C BC ####[facility] [address] [place] [id number]. Ravin Ovi MCH (RBC) [Entitic mass] 30.7 pg Normal 26.7-34.0 [facility] Comment on above: Performed By: #### C BC ####[facility] [address] [place] [id number]. Ravin Ovi MCHC (RBC) [Mass/Vol] 33.1 g/dL Normal 29.9-35.2 [facility] Comment on above: Performed By: #### C BC ####[facility] [address] [place] [address]Dr. Novalilliana Dior MCV (RBC) [Entitic vol] 92.7 fL Normal 81.0-99.0 [facility] Comment on above: Performed By: #### C BC ####[facility] K[address] [place], [place] [address]Dr. Ravin Dior MONO # 0.6 103/ul Normal 0.3-0.8 [facility] Comment on above: Performed By: #### C BC ####[facility] [address] [place] [address]Dr. Ravin Dior Monocytes/100 WBC (Bld) 5.7 % Normal 1.7-12.0 [facility] Comment on above: Performed By: #### C BC ####[facility] [address] [place], [place] [address]Dr. Ravin Dior NEUT # 7.7 103/ul Critically high 1.4-6.5 [facility] Comment on above: Performed By: #### C BC ####[facility] [address] [place], [place] [id number]. Ravin Dior Neutrophils/100 WBC (Bld) 75.1 % Critically high 43.0-75.0 [facility] Comment on above: Performed By: #### C BC ####[facility] [address] [place] [id number]. Ravin Dior Platelet mean volume (Bld) [Entitic vol] 10.4 fL Normal 9.5-13.5 [facility] Comment on above: Performed By: #### C BC ####[facility] [address] [place] [address]Dr. Ravni Dior PLT 294 103/ul Normal 150-450 [facility] Comment on above: Performed By: #### C BC ####[facility] [address] [place] [address]Dr. Ravin Dior RBC 4.79 106/ul Normal 4.20-5.40 [facility] Comment on above: Performed By: #### C BC ####[facility] [address] [place] [address]Dr. Ravin Dior WBC 10.2 103/ul Normal 4.0-11.0 [facility] Comment on above: Performed By: #### C BC ####[facility] [address] [place] [address]Dr. Ravin Dior ER URINE PROFILEon 2 Bilirubin Ql (U) Negative Normal NEGATIVE [facility] Comment on above: Performed By: #### DENY KAUFFMANRO #### [facility] [address] [place] [address] Dr. Ravin Dior Clarity (U) CLEAR Normal CLEAR [facility] Comment on above: Performed By: #### Tammy SOUTH UMICRO #### [facility] [address] [place] [address] Dr. Ravin Dior Color (U) LT. YELLOW Normal YELLOW [facility] Comment on above: Performed By: #### Tammy SOUTH UMICRO #### [facility] [address] [place] [address] Dr. Ravin PARKER A micrscopic examination will be performed if indicated. Normal [facility] Comment on above: Performed By: #### JAZ KAUFFMANICRO #### [facility] [address] [place] [address] Dr. Ravin Dior Glucose Ql (U) Negative Normal NEGATIVE [facility] Comment on above: Performed By: #### JAZ KAUFFMANICRO #### [facility] [address] [place] [address] Dr. Ravin Dior Hemoglobin Ql (U) Negative Normal NEGATIVE [facility] Comment on above: Performed By: #### DENY KAUFFMANRO #### [facility] [address] [place] [address] Dr. Ravin Dior Ketones Ql (U) TRACE Abnormal NEGATIVE [facility] Comment on above: Performed By: #### Tammy SOUTH UMICRO #### [facility] [address] [place] [address] Dr. Ravin Dior LEUKOCYTES SMALL Abnormal NEGATIVE [facility] Comment on above: Performed By: #### JAZ KAUFFMANICRO #### [facility] [address] [place] [address] Dr. Ravin Dior Nitrite Ql (U) Negative Normal NEGATIVE [facility] Comment on above: Performed By: #### DENY KAUFFMANRO #### [facility] [address] [place] [address] Dr. Ravin Dior pH (U) 6.0 [pH] Normal 5-9 [facility] Comment on above: Performed By: #### DENY KAUFFMANRO #### [facility] [address] [place] [address] Dr. Ravin Dior SPEC GRAVITY 1.010 Normal 1.005-<=1.025 [facility] Comment on above: Performed By: #### JAZ KAUFFMANICRO #### [facility] [address] [place] [address] Dr. Ravin Dior UA PROTEIN Negative Normal NEGATIVE/ TRACE [facility] Comment on above: Performed By: #### JAZ KAUFFMANICRO #### [facility] [address] [place] [address] Dr. Ravin Dior UR MICRO IND INDICATED Normal [facility] Comment on above: Performed By: #### Tammy SOUTH UMICRO #### [facility] [address] [place] [address] Dr. Ravin Dior Urobilinogen Qn (U) 0.2 {Chandler'U}/dL Normal 0.2 - 1. 0 [facility] Comment on above: Performed By: #### E ALDA SOUTH #### [facility] [address] [address] [address] Ravin Dior LACTATE/LACTIC ACIDon 2021 Lactate [Moles/Vol] 1.3 mmol/L Normal 0.4-1.9 [facility] Comment on above: Performed By: #### L ACT ####[facility] [address] [place] [address]Dr. Ravin Dior LIPASEon 05-17-2022 Lipase [Catalytic activity/Vol] 63.0 U/L Critically low 73.0-393.0 [facility] Comment on above: Performed By: #### C MP, LIPA #### [facility] [address] [place] [address] Dr. Ravin Dior PROF 14(COMP METB)on 022 Albumin [Mass/Vol] 3.4 g/dL Normal 3.4-5.0 [facility] Comment on above: Performed By: #### C MP, LIPA #### [facility] [address] [address] [address] Ravin Dior Albumin/Globulin [Mass ratio] 0.8 {ratio} Normal [facility] Comment on above: Performed By: #### C MP, LIPA #### [facility] [address] [place] [address] Dr. Ravin Dior ALP [Catalytic activity/Vol] 143 U/L Critically high 46-116 [facility] Comment on above: Performed By: #### C MP, LIPA #### [facility] [address] [address] [address] Ravin Dior ALT [Catalytic activity/Vol] 29 U/L Normal 14-59 [facility] Comment on above: Performed By: #### C MP, LIPA #### [facility] [address] [address] [address] Ravin Dior Anion gap [Moles/Vol] 7.6 mmol/L Normal [facility] Comment on above: Performed By: #### C MP, LIPA #### [facility] [address] [address] [address] Ravin Dior AST [Catalytic activity/Vol] 39 U/L Critically high 15-37 [facility] Comment on above: Performed By: #### C MP, LIPA #### [facility] [address] [address] [address] Ravin Dior Bilirubin [Mass/Vol] 0.7 mg/dL Normal 0.2-1.0 [facility] Comment on above: Performed By: #### C MP, LIPA #### [facility] [address] [address] [address] Ravin Dior Calcium [Mass/Vol] 9.1 mg/dL Normal 8.5-10.1 [facility] Comment on above: Performed By: #### C MP, LIPA #### [facility] [address] [place] [address] Dr. Ravin Dior Chloride [Moles/Vol] 102 mmol/L Normal 98-107 [facility] Comment on above: Performed By: #### C MP, LIPA #### [facility] [address] [address] [address] Ravin Dior CO2 [Moles/Vol] 31.1 mmol/L Normal 21.0-32.0 [facility] Comment on above: Performed By: #### C MP, LIPA #### [facility] [address] [address] [address] Ravin Dior Creatinine [Mass/Vol] 0.88 mg/dL Normal 0.55-1.02 [facility] Comment on above: Performed By: #### C MP, LIPA #### [facility] [address] [address] [address] Ravin Dior EGFR-AF [place]IZ[place] >60 Normal >=[address] [facility] Comment on above: Performed By: #### C MP, LIPA #### [facility] [address] [address] [address] Ravin Dior EGFR-NON AF [place]IZ[place] >60 Normal >=60 [facility] Comment on above: Performed By: #### C MP, LIPA #### [facility] [address] [address] [address] Ravin Dior Globulin (S) [Mass/Vol] 4.5 g/dL Normal [facility] Comment on above: Performed By: #### C MP, LIPA #### [facility] [address] [address] [address] Ravin Dior Glucose [Mass/Vol] 100 mg/dL Normal 74-106 [facility] Comment on above: Performed By: #### C MP, LIPA #### [facility] [address] [place] [address] Dr. Ravin Dior Potassium [Moles/Vol] 3.7 mmol/L Normal 3.5-5.1 [facility] Comment on above: Performed By: #### C MP, LIPA #### [facility] [address] [place] [address] Dr. Ravin Dior Protein [Mass/Vol] 7.9 g/dL Normal 6.4-8.2 [facility] Comment on above: Performed By: #### C MP, LIPA #### [facility] [address] [place] [address] Dr. Ravin Dior Sodium [Moles/Vol] 137 mmol/L Normal 136-145 [facility] Comment on above: Performed By: #### C MP, LIPA #### [facility] [address] [place] [address] Dr. Ravin Dior Urea nitrogen [Mass/Vol] 12.0 mg/dL Normal 7.0-18.0 [facility] Comment on above: Performed By: #### C MP, LIPA #### [facility] [address] [place] [address] Dr. Ravin Dior Urea nitrogen/Creatinine [Mass ratio] 13.6 mg/mg Normal [facility] Comment on above: Performed By: #### C MP, LIPA #### [facility] [address] [place] [address] Dr. Ravin Dior URINE MICROSCOPIC ONLYon BACTERIA NONE SEEN Normal NONE SEEN [facility] Comment on above: Performed By: #### Tammy SOUTH UMICRO #### [facility] [address] [place] [address] Dr. Ravin Dior Bacteria identified Cx Nom (U) NOT INDICATED Normal [facility] Comment on above: Performed By: #### E BRANNON, UMICRO #### [facility] [address] [place] [address] Dr. Ravin Dior CAST NONE SEEN Normal NONE SEEN [facility] Comment on above: Performed By: #### E BRANNON, UMICRO #### [facility] [address] [place] [address] Dr. Ravin Dior Crystals LM Nom (Urine sed) NONE SEEN Normal NONE SEEN [facility] Comment on above: Performed By: #### Tammy SOUTH UMICRO #### [facility] [address] [place] [address] Dr. Ravin Dior Epithelial cells LM Ql (Urine sed) FEW Abnormal NONE SEEN /RARE [facility] Comment on above: Performed By: #### Tammy SOUTH UMICRO #### [facility] [address] [place] [address] Dr. Ravin Dior MUCOUS NONE SEEN Normal NONE SEEN [facility] Comment on above: Performed By: #### Tammy SOUTH UMICRO #### [facility] [address] [place] [address] Dr. Ravin Dior RBC NONE SEEN Abnormal 0-2 [facility] Comment on above: Performed By: #### Tammy SOUTH UMICRO #### [facility] [address] [place] [address] Dr. Ravin Dior WBC 0-2 Abnormal NONE SEEN [facility] Comment on above: Performed By: #### Tammy SOUTH UMICRO #### [facility] [address] [place] [address] Dr. Ravin Dior Ambulatory Clinical Summaryo n 07-24-2020 Ambulatory Clinical Summary {[id number] Normal [facility] Gastroenterology Office/Clin ic Noteon 07-24-2020 Gastroenterology [...] course, # 28 cap(s), Refills(s) 0, Pharmacy: [facility]/pharmacy #[id number], 165, cm, 07/24/20 12:03:00 EST, Height/Length Dosing, 95.9, kg, 07/24/20 12:03:00 EST, Weight Dosing metronidazole, 250 mg = 1 tab(s), Oral, TID, X 7 day(s), # 21 tab(s), Refills(s) 0, [id number], 165, cm, 07/24/20 12:03:00 EST, Height/Length [...] water, # 160 cap(s), Refills(s) 1, [id number], 165, cm, 07/24/20 12:03:00 EST, Height/Length Dosing, 95.9, kg, 07/24/20 12:03:... Orders: pantoprazole, 40 mg = 2 tab(s), Oral, Daily, X 90 day(s), # 180 tab(s), Refills(s) 3, [id number], 165, cm, 07/24/20 12:03:00 EST, Height/Length Dosing, 95.9, kg, 07/24/20 12:03:00 EST, Weight Dosing Follow-up With When Contact Information Isabelle Ramirez MD In 12 months [address] [place] [address]- Additional Instructions: Problem List/Past Medical [...] 12/16/2018 Exercise - Occasional exercise, 12/16/2018 Other Zuhduzxm-0-5 cups blair;y, 12/16/2018 Substance Abuse - Denies Substance Abuse, 12/16/2018 Tobacco Never (less than 100 in lifetime) Tobacco Use:., 07/24/2020 Never (less than 100 in lifetime) Tobacco Use:. Never Smokeless Tobacco Use:., 02/01/2019 [facility] Comment on above: Result Comment: Elec tronically Signed By: Taylor Mccauley MD, Isabelle\.br\Date and Time Signed: 07/24/20 13:13 EST Auth for Release of Medical Recordson 02-09-2020 Auth for Release of Medical Records [id number]:127 [facility] Patient Letter FTon 2019 Patient Letter [facility] January 24, 2020 SAUL GUT[place] [address] SAUL GUTIÉRREZ 1945 Dear Saul, This is a reminder that you are due for an appointment with Dr. Garland or Dr. Mccauley. Please call [facility] at [phone] to schedule an appointment at your earliest convenience. Thank you, [facility] Normal [facility] Encounters Encounter Date Encounter Type Care Provider Facility Start: 01-11-2024 End: 01-11-2024 ambulatory SANDIE PAGE Not Available Start: 01-05-2024 ambulatory [facility] Start: 12-20-2023 End: 12-20-2023 ambulatory SANDIE PAGE Not Available Start: 12-16-2023 ambulatory [facility] Start: 12-01-2023 End: 12-01-2023 ambulatory [facility] Start: 11-25-2023 ambulatory [facility] Start: 11-25-2023 Encounter for preprocedural cardiovascular examination [facility] Start: 11-24-2023 ambulatory [facility] Start: 11-23-2023 ambulatory [facility] Start: 11-11-2023 End: 11-11-2023 ambulatory SHAR GARCÍA Not Available Start: 11-01-2023 ambulatory [facility] Start: 11-01-2023 End: 11-01-2023 ambulatory [facility] Start: 08-10-2023 End: 08-10-2023 ambulatory [facility] Start: 07-14-2023 End: 07-14-2023 ambulatory [facility] Start: 07-05-2023 ambulatory [facility] Start: 07-05-2023 End: 07-05-2023 ambulatory [facility] Start: 06-05-2023 Refill Mac 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 [employer] Work Phone: [facility] Comment on above: Med Refill Start: 05-18-2023 End: 05-18-2023 ambulatory [facility] Start: 03-23-2023 End: 03-26-2023 ambulatory ROBERT MADDEN [facility] Start: 01-25-2023 End: 01-25-2023 ambulatory VIRGIL FOLEY [facility] Start: 01-18-2023 End: 01-18-2023 ambulatory JERSON JEFFERSON [facility] Start: 09-22-2022 End: 09-23-2022 ambulatory HEAVEN STALEY Facility:[facility] Start: 07-23-2022 End: 07-24-2022 ambulatory HEAVEN KELLYMER Facility:[facility] Start: 05-17-2022 End: 05-17-2022 ambulatory HEAVEN STALEY Facility:[facility] Start: 03-26-2022 End: 03-27-[address] JAYLON ORNELAS . Facility:[facility] Start: 12-24-2021 End: 12-25-[address] JAYLON ORNELAS . Facility:[facility] Start: 11-04-2021 End: 11-04-[address] JAYLON ORNELAS . Facility:[facility] Plan of Treatment Date Care Activity Detail Author Start: 08-25-2023 Adult BMI Screening Adult BMI Screen ing [facility] Flare Code [facility] Start: 08-25-2023 Tobacco Screening Tobacco Screening [facility] Flare Code [facility] Start: 01-29-2023 COVID-19 Vaccine ( season) COVID-19 Vaccine ( season) [facility] Start: 01-29-2023 Influenza vaccination Influenza Vacc ine [facility] Start: 11-03-2022 ambulatory Ambulatory Facility:H 1 Start: 2010 Fall Risk Screening Fall Risk Screen ing [facility] Flare Code [facility] Start: 1995 Administration of varicella zoster vaccine Zoster (Shingles) Vaccine (1 of 2) [facility] Start: 1964 DTaP,Tdap and Td Vac cines (1 - Tdap) DTaP,Tdap and Td Vaccines (1 - Tdap) [facility] Flare Code [facility] Start: 1963 Adult BMI Follow Up Plan [facility] Start: 1957 Depression Screening [facility] Scre [facility] Start: 1945 Medicare Annual Well ness Visit Medicare Annual Wellness Visit [facility] Flare Code [facility] End: 06-08-2024 Basic metabolic 2000 panel - Serum or Plasma Basic Metabolic Panel Lab Routine Essential hypertension 1 Occurrences starting 06/08/2023 until 06/08/2024 [facility]: Comment on above: 1 Occurrences starti ng 06/08/2023 until 06/08/2024 Immunizations Immunization Date Immunization Notes Care Provider Fa sherie 05-08-2021 influenza virus vaccine, unspecified formulation Mac Erwin 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 [facility] Payers Date Payer Category Payer Medicare HU[employer] MEDICARE [place]IC[place] RES[place] [id number] 2013-Present [phone] [place] [id number] 1959 Medicare [id number] 1945 Unknown [id number] 1945 Unknown [id number] 1945 Unknown [id number] 1945 Unknown [id number] 1945 Unknown [id number] 1945 Unknown [id number] 1945 Unknown [id number] 1945 Unknown [id number] 9 1945 Unknown [id number] 9 1945 Unknown [id number] 9 Social History Date Type Detail Facility Start: 05-26-2022 Tobacco smoking stat [email or web address]IS Never smoked tobacco [facility] Start: 05-26-2022 Tobacco use and exposure Smoke less tobacco non-user [facility] Start: 08-24-2022 Alcohol intake 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 alcohol (finding) [facility] Start: 07-04-2020 End: 08-24-2022 History of Social function [facility] Start: 07-04-2020 End: 08-24-2022 Tobacco use panel [facility] Housing Instability Unknown [facility] Start: 1945 Sex Assigned At Not on file P [facility] Medical Equipment Procedure Code Equipment Code Equipment Origin al Text Equipment Identifier Dates Mesh [id number] 3d Rect Plstr Clgn Symbotex 2 Sd Comp Mfl Babsr Rpl [id number] - Sna - [id number] Start: 06-30-2022 Dev Clsr 30fr Watchman 30mm - [id number] Start: 10-28-2018 Clinical Notes 12-24-2021 to 12-01-2023 Note Date & Type Note Facility 12-01-2023 Note Currently pt is doin g quite well s/p recent AV node ablation Remains V paced with BI-V AICd [facility] 12-01-2023 Note No anticoagulation currently [facility] 12-01-2023 Note [facility]TP CARDIOLOGY PROGR ESS NOTE HPI: Saul Gutiérrez is a 78 y.o. female here [...] side. 03/23/23 HPI: Saul Gutiérrez is a 78 y.o. year old with past medical history of HFrEF with EF of 35% as per an echocardiogram in May 2022, nonobstructive coronary artery disease as per cath on 01/05/2023 who previously had undergone a Watchman procedure in 2019 due to GI bleed. She was previously seen by [facility] cardiology. She was initially seen by [...] be scheduled for muga scan per Dr. Jefefrson next month. Says after her evening meal [...] Conjunctiva/sclera: Conjunctivae normal. (more content not included)... [facility] 12-01-2023 Note Patient here for fol low up AV node ablation performed on 11/01/[address] Madden. She denies chest pain, SOB, palpitations, and lightheadedness/syncope. Review of Systems Musculoskeletal: Positive for arthritis and back pain. All other systems reviewed and are negative. [facility] 11-01-2023 Note AV NODE ABLATION PRO CEDURE REPORT DATE OF PROCEDURE: 11/01/2023 PERFORMING PHYSICIAN: Dr. Robert Madden PRESS CLIPPINGS CUTTER AND PASTER: TOÑA CONSENT: Patient NAME OF THE PROCEDURE: [...] She was previously seen by [facility]. She was initially seen by Dr. [...] Continue anticoagulation. Robert Madden MD Cardiac Electrophysiology. [facility] 11-01-2023 Note Patient: Saul mcghee Procedure Information Date/Time: 11/01/23829 Procedure: AV node ablation Location: [facility] TAG MAKER 1 EP / [facility] (Cath) Providers: Robert Madden MD Clinical information reviewed: Tobacco Allergies Meds Med Hx Surg Hx OB Status Fam Hx Physical Exam Airway Mallampati: II TM distance: >3 FB Neck ROM: full Cardiovascular Dental Pulmonary Abdominal Anesthesia Plan ASA 2 CSE Anesthetic plan and risks discussed with patient. Use of blood products discussed with patient who. Additional Equipment Requests [facility] 11-01-2023 Note [place] Electrophysiology Consult Note Reason for visit: Afib [...] side. 03/23/23 HPI: Saul Gutiérrez is a 78 y.o. year old with past medical history of HFrEF with EF of 35% as per an echocardiogram in May 2022, nonobstructive coronary artery disease as per cath on 01/05/2023 who previously had undergone a Watchman procedure in 2019 due to GI bleed. She was previously seen by [facility] cardiology. She was initially seen by [...] on file Intimate Partner Violence: Unknown (07/23/2023) [place] Safety & Environment Fear of Current or [...] 50 mg tab (more content not included)... [facility] 08-27-2023 Note ca [facility] 07-14-2023 Note stable [facility] 07-14-2023 Note Patient here for wou nd check s/p BiV ICD implant on 07/05/[address] Madden. [facility] 07-14-2023 Note [facility] CARDIOLOGY PROGR ESS [...] GI bleed. She was previously seen by [facility] cardiology. She was initially seen by [...] Neurological: General: No (more content not included)... [facility] 07-14-2023 Note Site well approximat ed and healing well No s/s of infection or hematoma, + ecchymosis noted [facility] 07-14-2023 Note -[id number] at [address] for age x2, gender, hypertension, CHF, on aspirin s/p watchmen Continue meds as prescribed [facility] 07-05-2023 Note MANAGER INVESTIGATIONS-D IMPLANT PROCED URE NOTE DATE OF PROCEDURE: 07/05/2023 PERFORMING PHYSICIAN: Dr. Robert Madden PRESS CLIPPINGS CUTTER AND PASTER: TOÑA CONSENT: Patient LOCATION: Copy Chief PROCEDURE PERFORMED: 1. Implantation of Biventricular ICD ([employer]). 2. U/S venous access 3. Coronary [...] GI bleed. She was previously seen by [facility] cardiology. She was initially seen by [...] occasions using seldinger technique using a 5 Nepalese micropunture needle and exchanged for 0.034 wire. I decided to proceed with opening of the pocket. Localinfiltration of 1% Lidocaine was performed and an incision was created in the left upper chest. Dissection was then performed using cautery down. An active fixation [employer] ICD lead was then delivered through the 8F sheath to the right ventricle. After confirmation of lead position on orthogonal views (BECK and YORUBA) to confirm position in the septal aspect, the screw was activated. After confirmation of good sensing parameters, injury pattern and pacing thresholds, 10V pacing was done and no diaphragmatic stimulation was noted. It was then secured in the pocket using three 1-0 Silk sutures. I then proceeded to perform the LV lead placement. A [place] sheath was advanced into the RV over [...] The leads were then attached to a [employer] MANAGER INVESTIGATIONS-D device with atrial ort capped and the [...] Patient was hemodynamically (more content not included)... [facility] 07-05-2023 Note Patient: Saul mcghee Procedure Information Date/Time: 07/05/23 1400 Procedure: Implant ICD - biventricular Location: [facility] TAG MAKER 1 EP / [facility] VASCULAR LAB (Cath) Providers: Robert Madden MD Clinical information reviewed: Allergies Meds Physical Exam Airway Mallampati: II TM distance: >3 FB Neck ROM: full Cardiovascular Dental Pulmonary Abdominal Anesthesia Plan ASA 2 CSE Anesthetic plan and risks discussed with patient. Use of blood products discussed with patient who. Additional Equipment Requests [facility] 05-18-2023 Note [place] Electrophysiology Consult Note Reason for visit: Afib [...] [facility] She was initially seen by Dr. [...] Appearance: well-nourished, we (more content not included)... [facility] 03-23-2023 Note [place] Electrophysiology Consult Note [...] GI bleed. She was previously seen by [facility] cardiology. She was initially seen by Dr. [...] no cyanosis, no (more content not included)... [facility] 02-04-2023 Note -s/p watchmen 2019, [facility] aspirin [facility] 02-04-2023 Note -[id number] at [address] for age x2, [...] Watchman due to unclear risk of stroke [facility] 02-04-2023 Note -will need BiV ICD if ICD indica halie [facility] 02-04-2023 Note -stable, ct medications [facility] 02-04-2023 Note -NYHA II, NICM, HFrE F EF 35%, pending MUGA scan in 2-3 months to reassess EF for ICD -nonobstruc cors 12/2022 -ct gdmt -she appears euvolemic and compensated [facility] 02-04-2023 Note -adv compliance with cpap [facility] 01-25-2023 Note [place] Electrophysiology Consult Note [...] was following [facility] and self-referred to [facility]ology for second opinion. She recently underwent [...] K4.4, BUN 40, creatinine 1.32, GFR 39 /01/20 A-fib rate controlled PMH: Past Medical History: [...] rash, no ulcer, (more content not included)... [facility] 01-25-2023 Note Patient here to disc uss possible afib ablation per Dr. Jefferson. She will be scheduled for muga scan in Mar 2023. Review of Systems Cardiovascular: Positive for dyspnea on exertion. All other systems reviewed and are negative. [facility] 01-18-2023 Note [facility] Note Chief Complaint: Patient here [...] TTE 06/08/22 Nonischemic cardiomyopathy Normal coronaries by [facility] 2013 and 2022 Mitral regurgitation, moderate by TTE 05/2022 Persistent atrial fibrillation s/p repeat ca (more content not included)... [facility] 07-23-2022 Note PAIN MANAGEMENT CONS ULTATION [...] months' time or sooner if needed. [facility] 03-26-2022 Note CONSULTATION CONSULTATION DATE: [...] agrees with the plan of care. [facility] 12-24-2021 Note CONSULTATION PROCEDURE DATE: [...] the procedure well with no complications. [facility] 12-24-2021 Note CONSULTATION CONSULTATION DATE: [...] three months' time, unless otherwise indicated. [facility] Evaluation note Diagnosis Essential hypertension- Primary Unspecified essential hypertension documented in this encounter [facility] Flare Code SystemInstructionsNot on filedocumented in this encounter [facility] System Summary Purpose Family History No Family History Records FoundNo Family History Records FoundNo Family History Records FoundNo Family History Records Found Advance Directives No Advanced Directives Records FoundNo Advanced Directives Records FoundNo Advanced Directives Records FoundNo Advanced Directives Records Found Additional Source Comments INFORMATION SOURCE (unrecogn ized section and content) DATE CREATED AUTHOR 07/25/2020 Travis Cordova [facility] DATE CREATED AUTHOR AUTHOR'S ORGANIZ ATION 10/12/2022 [facility] DATE CREATED AUTHOR AUTHOR'S ORGANIZ ATION 01/07/2024 [facility] DATE CREATED AUTHOR AUTHOR'S ORGANIZ ATION 01/12/2024 [facility] dical Specialists EPIC Reason for Visit (unrecogniz ed section and content) Reason Comments Med Refill Care Teams (unrecognized sec tion and content) Concrete Saw Operator Relationship Specialty Start Date End Date Heaven Staley, 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 STONE GRADER [address] [facility] [place] [address] PCP - General Family Medicine 10/30/21 FOR [...] BE BASED ON THE PRIMARY CLINICAL RECORDS. [facility], [facility]. provides no warranty or guarantee of the accuracy or completeness of information in this document.
--- NOTE | 2024-01-13 07:53 | P.CN_ITS ---
Consult Note: HPI Data of Consult Patient: known to practice within the last 3 years Requesting Physician: Carmen Ramey NP Primary Care Provider: FIDELINA STALEY Consult Narrative Reason for consult: f/u Narrative: Radha Cornell a pleasant 78 year old female presents for evaluation and management of chronic low back pain. Pain today 10/10 ache which numbness tingling of left leg, increased with all activity and decreased with lying down and heat. Patient has found mild benefit to current medication regimen, did not start zonegran due to concerns of side effects. Recent caudal FARIBA providing no relief. Lumbar CT completed and consistent with L4-5 listhesis with moderate multilevel degenerative changes. cc:: CC: Carmen Ramey NP Review of Systems ROS Status of ROS 10 or more systems reviewed and unremark able except as noted in history and below Musculoskeletal Reports: back pain and extremity pain PFSH PFSH Medical History Rectocele ?N81.6 - Rectocele (ICD-10) Bruising ?T14.8XXA - Other injury of unspecified body region, initial encounter (ICD- 10) Anemia ?D64.9 - Anemia, unspecified (ICD-10) Upper back pain ?M54.9 - Dorsalgia, unspecified (ICD-10) Neck pain ?M54.2 - Cervicalgia (ICD-10) Low back pain ?M54.50 - Low back pain, unspecified (ICD-10) Fibromyalgia ?M79.7 - Fibromyalgia (ICD-10) Heartburn ?R12 - Heartburn (ICD-10) Acid reflux ?K21.9 - Gastro-esophageal reflux disease without esophagitis (ICD-10) Sleep apnea ?G47.30 - Sleep apnea, unspecified (ICD-10) Atrial fibrillation ?I48.91 - Unspecified atrial fibrillation (ICD-10) Surgical History S/P lumbar spine operation ?Z98.890 - Other specified postprocedural states (ICD-10) S/P shoulder surgery ?Z98.890 - Other specified postprocedural states (ICD-10) History of bariatric surgery ?Z98.84 - Bariatric surgery status (ICD-10) H/O heart surgery ?Z98.890 - Other specified postprocedural states (ICD-10) H/O: hysterectomy ?Z90.710 - Acquired absence of both cervix and uterus (ICD-10) Hx of cholecystectomy ?Z90.49 - Acquired absence of other specified parts of digestive tract (ICD- 10) Meds Home Medications and Allergies Home Medications ?Medication ?Instructions ?Recorded ?Confirmed ?Type cholecalciferol (vitamin D3) 125 5,000 unit PO DAILY 11/03/22 12/14/23 History mcg (5,000 unit) capsule furosemide 40 mg tablet (Lasix) 40 mg PO BID 11/03/22 12/14/23 History krill 2 cap PO DAILY 11/03/22 12/14/23 History gic-ev1-fem-zav-mp3-sxc-astax 1,500 mg-165 mg-67.5 mg capsule losartan 25 mg tablet 25 mg PO DAILY 11/03/22 12/14/23 History metoprolol succinate 25 mg 12.5 mg PO BID 11/03/22 12/14/23 History tablet,extended release 24 hr multivitamin 1 tab PO DAILY 11/03/22 12/14/23 History pantoprazole 40 mg tablet,delayed 40 mg PO BID 11/03/22 12/14/23 History release (Protonix) pramipexole 1 mg tablet (Mirapex) 1 mg PO DAILY 11/03/22 12/14/23 History trazodone 50 mg tablet 50 mg PO DAILY 11/03/22 12/14/23 History vitamin B complex 1 cap PO DAILY 11/03/22 12/14/23 History naloxone 4 mg/actuation nasal 4 mg intranasal Q3M PRN opioid 02/11/23 12/14/23 Rx spray (Narcan) overdose #2 ea baclofen 10 mg tablet 10 mg PO BID PRN muscle spasm #60 07/28/23 12/14/23 Rx tabs oxycodone-acetaminophen 5 mg-325 1 tab PO TID PRN pain #90 tabs 12/15/23 Rx mg tablet (Percocet) zonisamide 50 mg capsule 50 mg PO DAILY #30 caps 12/23/23 Rx Allergies Allergy/AdvReac Type Severity Reaction Status Date / Time codeine Allergy Mild Hives Verified 12/14/23 10:23 pregabalin [From Lyrica] Allergy Shakiness Verified 12/14/23 10:23 Exam Constitutional Documenting provider has reviewed patient's vital signs: yes Common normals: no apparent distress, oriented x3, healthy appearing, alert and well nourished General appearance: cooperative HENMT Common normals: normocephalic, hearing grossly normal bilaterally and moist oral mucous membranes Head and scalp: normocephalic Eye Common normals: PERRL Pupil: PERRL Neck & C-Spine Common normals: full ROM General: normal visual inspection Chest Common normals: inspection of chest normal Respiratory Common normals: normal respiratory effort, no retractions and no use of accessory muscles Back & Pelvis Lumbar spine/lower back: ROM limited, pain with ROM and straight leg raise positive left Other: facet loading negative tender to touch and pain with activity over left superior gluteal nerve positive fabers to left, pain with gaenslen and thigh thrust pain following l4/5 l5/s1 dermatomal pattern on left, decreased sensation noted Extremity Common normals: normal to inspection and full ROM Neuro Common normals: oriented x3, CN's II-XII intact bilaterally, moves all extremities, no focal motor deficits, no sensory deficits noted and deep tendon reflexes 2+ bilaterally Sensorium/orientation: alert Motor exam: no movement abnormalities noted and strength abnormal (4/5 in BLE) Psych Common normals: mental status grossly normal, thought process normal, cooperative, affect normal, speech normal and activity/motor behavior normal Speech: normal speech Thought process: normal thought process Results Additional Findings Additional findings: If on a controlled substance or opioids, I have checked an [place]ARRS report on this patient and there are no aberrancies noted in the prescribing history.??If on a controlled substance or opioid a drug screen was completed and reviewed within the last year, and if there has not been a drug screen completed we ordered one today to monitor higher risk, state monitored pain medication use. As part of providing excellent, safe, comprehensive care, the following was completed at our patient's visit: 1. A medication reconciliation and review to ensure accurate knowledge of current/active medications, including asking our patients to inform us about any [id number] medications or herbal remedies/nutritional supplements/alternative remedies. 2. A review to specifically ensure our patients have had annual screening for screening for depression, screening for tobacco use, and screening for unhealthy alcohol use. For concerning screenings had a discussion with the patient, provided patient education, and recommended follow-up with primary care provider when appropriate. If patient noted with a risk of falling, they received education on strength, gait, and balance training to prevent future risk of falling. Assessment and Plan Assessment and Plan (1) Lumbar radiculopathy: (2) Lumbar spine instability: (3) Failed back syndrome: (4) Lumbar spondylosis: (5) Muscle spasm: (6) Chronic prescription opiate use: Assessment and Plan: I feel these medications are improving the patient's quality of life and allow them to tolerate activities of daily living as well as participate in recreational activity.? The patient does not report intolerable side effects. The patient is NOT opioid naive and non-pharmacologic and non-opioid treatment has failed to significantly relieve the patient's pain and improve functionality. The patient has a diagnosis that is related to a somatic or visceral pain etiology. ? ?? I reviewed with the patient the potential risks and side effects with the use of? opioid medications including but not limited to respiratory depression,? sedation, and even . I verified the patient has access to naloxone should? these effects occur. I advised the patient to avoid the use of any other? sedation substances including alcohol, THC, and benzodiazepines while? taking opioid medications due to the risk of compounding side effects and? detrimental outcomes. I reviewed the DEPUTY CORONER INVESTIGATOR, pain treatment agreement, urine? drug screen, and opioid start talking forms. The patient was advised to let? their family know they had Naloxone in case they would need to administer? the medication.? ?? A drug screen was completed within the last year, and no aberrancies were noted regarding their use of controlled substances. The patient understands they are subject to the terms and conditions of the pain contract that they have signed. ? ?? I have checked an OARRS report on this patient today and there are no aberrancies noted in the prescribing history.? (7) Status post lumbar spinal fusion: Plan defer L4/5 or L5/S1 FARIBA at this time, refer to Dr Ramírez for evaluation continue current medications, can take baclofen 5-10mg BID PRN narcan previously prescribed and discussed continue f/u with cardiology, pacemaker f/u after NS consult. can consider alternative FARIBA if nonsurgical
== END 2024-01-13 07:34 | disposition home or self-care (01) ==
LOC: PM 07:34
PROVIDERS: PCP Nurse Practitioner Family; Visit Provider Nurse Practitioner
DX: M54.16 Radiculopathy, lumbar region (principal); M53.2X6 Spinal instabilities, lumbar region; M96.1 Postlaminectomy syndrome, not elsewhere classified; M47.816 Spondylosis without myelopathy or radiculopathy, lumbar region; M62.838 Other muscle spasm; Z79.891 Long term (current) use of opiate analgesic; M43.26 Fusion of spine, lumbar region
CPT/HCPCS: G0463

== ENCOUNTER 2024-02-10 13:22 | Outpatient (OUT) | payer MEDICARE, SELFPAY ==
--- NOTE | 2024-02-10 | XR_ITS ---
The [address] [address] Patient Name: SAUL GUTIÉRREZ MRN: [id number] date: 1945 Sex: F Assigned Patient Location: [facility] Current Patient Location: Accession/Order Number: [id number] Exam Date: 02/10/2024 13:30 Report Date: 02/12/2024 07:55 At the request of: AVANI BURROWS Procedure: XR lumbar spine min 4V EXAMINATION: XR lumbar spine min 4V HISTORY: LUMBAR SPINE PAIN COMPARISON: XR lumbar spine 11/03/2022 FINDINGS: BONES: Mechanical fusion L3-L4 via bilateral pedicle screws and rods; no appreciable hardware fracture loosening. Grade 1 anterior listhesis of L4 on 5; no change in alignment during flexion and extension. Mild left convex curvature lumbar spine. Multilevel moderate degenerative facet arthropathy. DISC SPACES: Intervertebral disc spacer L3-L4. Moderate narrowing L2-L3, L4-L5. Marked narrowing L5-S1. PARASPINOUS: Negative. No paraspinous abnormality is seen. OTHER: Negative. XR/XR lumbar spine min 4V IMPRESSION: 1. Stable surgical changes without evidence of hardware failure or change in alignment. 2. Grade 1 anterior listhesis of L4 on 5; slightly progressed compared to prior study. 3. Multilevel degenerative disc disease and facet arthropathy detailed above. Electronically authenticated by: OSWALDO NUGENT Date: 02/12/2024 07:55
== END 2024-02-10 13:23 | disposition home or self-care (01) ==
LOC: RAD 13:22
PROVIDERS: PCP Nurse Practitioner Family; Visit Provider Orthopaedic Surgery Orthopaedic Surgery of the Spine
DX: M54.50 Low back pain, unspecified (principal); Z98.890 Other specified postprocedural states; M51.36 Other intervertebral disc degeneration, lumbar region
CPT/HCPCS: 72110

== ENCOUNTER 2024-02-17 07:47 | Outpatient (OUT) | payer MEDICARE, SELFPAY ==
--- OUTSIDE RECORDS SUMMARY | 2024-02-17 07:50 | XMS_ITS | CCD ---
Author Organization [facility] Care Team Providers Care Flight Nurse Name Role Phone JOHNSON ., DR JAYLON Ruelas Admitting Unavailable ORNELAS ., DR JAYLON Ruelas Attending Unavailable LUÍS HEAVEN Primary Care Unavailable ORNELAS ., DR JAYLON Ruelas Consulting Unavailable MICHELINE MOLINA Consulting Unavailable ORNELAS ., DR JAYLON Ruelas Admitting Unavailable ORNELAS ., DR JAYLON Ruelas Attending Unavailable [facility] Primary Care Unavailable RODRIGUEZ ., SABRINA Consulting Unavailable ORNELAS ., DR JAYLON Ruelas Admitting Unavailable ORNELAS ., DR JAYLON Ruelas Attending Unavailable [facility] Primary Care Unavailable RODRIGUEZ ., SABRINA Consulting Unavailable [facility] Primary Care Unavailable LAKSHMIPATHY ., NARENDRANATH Admitting Charity vailable LAKSHMIPATHY ., NARENDRANATH Attending Charity vailable LAKSHMIPATHY ., NARENDRANATH Consulting Charity vailable LAKSHMIPATHY ., NARENDRANATH Admitting Charity vailable LAKSHMIPATHY ., NARENDRANATH Attending Charity vailable [facility] Primary Care Unavailable LUÍS, HEAVEN Admitting Unavailable HEAVEN STALEY Attending Unavailable [facility] Care Unavailable DR SHAR VALENZUELA Consulting Unavailable LUÍS, HEAVEN Consulting Unavailable [facility] Primary Care Unavailable DAREK ., KEILY Admitting Unavailable DAREK ., KEILY Attending Unavailable DAREK ., KEILY Consulting Unavailable KELSIE DEL ANGEL Consulting Unavailable Luís [facility] Primary Care Provider SHAR GARCÍA Attending Unavailable SANDIE PAGE Attending Unavailable HEAVEN STALEY Referring Unavailable SANDIE PAGE Attending Unavailable CARIDAD GARNER Attending Unavailable ROBERT MADDEN Referring Unavailable ROBERT MADDEN Referring Unavailable ROBERT MADDEN Referring Unavailable ROBERT MADDEN Referring Unavailable ROBERT MADDEN Referring Unavailable ROBERT MADDEN Referring Unavailable NAVID, ROBERT Referring Unavailable NAVID, ROBERT Referring Unavailable NAVID, ROBERT Referring Unavailable DARRIUS, ADELAIDA Attending Unavailable DIANA, SHAYY Referring Unavailable NAVID, ROBERT Referring Unavailable DARRIUS, ADELAIDA Attending Unavailable NAVID, ROBERT Attending Unavailable NAVID, ROBERT Attending Unavailable DIANA, SHAYY Referring Unavailable NAVID, ROBERT Referring Unavailable NAVID, ROBERT Admitting Unavailable NAVID, ROBERT Attending Unavailable NAVID, ROBERT Referring Unavailable NAVID, ROBERT Admitting Unavailable NAVID, ROBERT Attending Unavailable Allergies Allergy Classification Reported Allergen(s) Allergy Type Date of Onset Reaction(s) Facility (2 sources) Codeine; Translations: [CODEINE] Drug Allergy 06-06-2014 [facility] Repository (1 source) Codeine Drug Allergy 06-06-2014 [facility] (2 sources) Lisinopril; Translations: [LISINOPRIL] Drug Allergy 10-19-2014 [facility] (1 source) pregabalin; Translations: [PREGABALIN] Drug Allergy 12-01-[address] [facility] Repository Medications Current Medications Medication Drug [...] 30 tablet 1 06/08/2023 Active lactobacillus acidophilus [id number] unt oral capsule (1 source) take 1 [...] Indications: Chronic systolic CHF (congestive heart failure) ([facility]) Take 1 tablet (25 mg total) by [...] 06-06-2014 Resolved: 10-11-2020 10-11-2020 Chronic Conduction disorders (6 sources) Left bundle branch block; Translations: [Left bundle-branch block, unspecified] Onset: 07-13-2014 Resolved: 02-24-2018 10-11-2020 Chronic Congestive heart failure; nonhypertensive (2 sources) Chronic systolic heart failure; Translations: [Chronic [...] Translations: [Longstanding persistent atrial fibrillation] Onset: 03-23-2023 Past or Other Problems Problem Classification Problem [...] 10-11-2020 Episodic Other aftercare (1 source) Other group home (current) drug therapy; Translations: [OTH CARE HOME CURRENT DRUG THERAPY] Onset: 05-19-2022 Episodic Other [...] Test Name Value Interpretation Reference Range Facility 36on 02-11-2024 36 Tried to contact patient and she has no set up. Will try again on Wednesday morning. [facility] Documentationon 02-11-2024 Documentation [id number] Saul Gutiérrez 1945 F Date Provider Department Center 02/11/2024 ADELAIDA VALENCIA MAGNUS Gonzales Family History Problem Relation Age of Onset Heart failure Father Family Status - Relation Status Age at Father [facility] 36on 02-08-2024 36 Patient had her device checked today in the office. She stopped by my desk to see if she was ever supposed to resume Jardiance. She says it was stopped because it was giving her stomach issues, but that her PCP didn't think it was from Jardiance. She wants to know if she should resume it. She doesn't have an apt with Dr. Madden until 03/21. Please advise. Thanks. [facility] Telephoneon 02-08-2024 Telephone [id number] Saul Gutiérrez 1945 F Date Provider Department Center 02/08/2024 Jarrett-CARIDAD LOVE Family History Problem Relation Age of Onset Heart failure Father Family Status - Relation Status Age at Father [facility] Office Visiton 12-01-2023 Follow-up visit [id number] Saul Gutiérrez 1945 F Date Provider Department Center 12/01/2023 ADELAIDA VALENCIA MAGNUS Eugene Family History Problem Relation Age of Onset Heart failure Father Family Status - Relation Status Age at Father Level of Service:02426 [place] POSTOP FOLLOW UP VISIT RELATED TO ORIGINAL PX [facility] HPon [facility] Consult Note Reason for visit: Afib [...] GI bleed. She was previously seen by [facility] cardiology. She was initially seen by Dr. [...] is a year. She was seen by Angel ADAMS in January 25, 2023 for A-fib and at that time a discussion regarding sinus rhythm maintenance with ablation was entertained but considered a poor candidate as she could not tolerate anticoagulation. Patient here for follow up event monitor and afib management per Angel Foley DNP. She will be scheduled for [...] on file Intimate Partner Violence: Unknown (07/23/2023) [place] Safety & Environment Fear of Current or [...] 50 mg tab (more content not included)... [facility] NURSNOTEon 11-01-2023 NURSNOTE RN educated pt on d/ c instructions. RN encouraged pt to voice any questions or concerns. Pt verbalizes no questions or concerns at this time. [facility] Orders Onlyon 10-22-2023 Orders Only [id number] Saul Gutiérrez 1945 F Date Provider Department Center 10/22/2023 DEMOND RAMOS [facility] [place] [facility] Family History Problem Relation Age of Onset Heart failure Father Family Status - Relation Status Age at Father [facility] Orders Onlyon 08-27-2023 Orders Only [id number] Saul Gutiérrez 1945 F Date Provider Department Center 08/27/2023 LEATHA BAHENA MAGNUS [facility] Family History Problem Relation Age of Onset Heart failure Father Family Status - Relation Status Age at Father [facility] Office Visiton 07-14-2023 Follow-up visit [id number] Saul Gutiérrez 1945 F Date Provider Department Center 07/14/2023 ADELAIDA VALENCIA MAGNUS [facility] Family History Problem Relation Age of Onset Heart failure Father Family Status - Relation Status Age at Father Level of Service:35926 [place] POSTOP FOLLOW UP VISIT RELATED TO ORIGINAL PX [facility] HPon 07-05-2023 [facility] Elect[facility] Consult Note Reason for visit: Afib [...] GI bleed. She was previously seen by [facility] cardiology. She was initially seen by Dr. [...] is a year. She was seen by Angel ADAMS in January 25, 2023 for A-fib and at that time a discussion regarding sinus rhythm maintenance with ablation was entertained but considered a poor candidate as she could not tolerate anticoagulation. Patient here for follow up event monitor and afib management per Angel Foley DNP. She will be scheduled for [...] Appearance: well-nourished, we (more content not included)... Normal [facility] NURSNOTEon 07-05-2023 NURSNOTE RN educated pt on d/ c instructions. RN encouraged pt to voice any questions or concerns. Pt verbalizes no questions or concerns at this time. Pt was wheeled off of unit with all of belongings. Normal [facility] NURSNOTE CHG wipes and betadine nasal swabs completed. [facility] Orders Onlyon 07-05-2023 Orders Only [id number] Saul Gutiérrez 1945 Provider Department Center 07/05/2023 ELENA ATWOOD [facility] [place] Heart[facility] Family History Problem Relation Age of Onset Heart failure Father Family Status - Relation Status Age at Father [facility] Office Visiton 05-18-2023 Follow-up visit [id number] Saul Gutiérrez 1945 Provider Department Center 05/18/2023 ROBERT GEE Family History Problem Relation Age of Onset Heart failure Father Family Status - Relation Status Age at Father Level of Service:59263 MA OFFICE/OUTPATIENT ESTABLISHED MOD MDM 30 MIN (GC) [facility] Office Visiton 03-23-2023 Follow-up visit [id number] Saul Gutiérrez 1945 Provider Department Center 03/23/2023 ROBERT GEE Family History Problem Relation Age of Onset Heart failure Father Family Status - Relation Status Age at Father Level of Service:23959 MA OFFICE/OUTPATIENT NEW MODERATE MDM 45-59 MINUTES [facility] INSULINon 09-23-2022 Insulin 7.9 uIU/mL Normal 2.6-24.9 [facility] Comment on above: Performed By: #### I NSULIN ####[facility] [address] [place], [place] [address]FlViky Ravin Ovi CBC AUTO DIFFon 09-22-2022 BASO # 0.0 103/ul Normal 0.0-0.1 [facility] Comment on above: Performed By: #### C BC ####[facility] [address] [place] [id number]. Ravin Dior Basophils/100 WBC (Bld) 0.4 % Normal 0.2-2.0 [facility] Comment on above: Performed By: #### C BC ####[facility] [address] [place] [id number]. Ravin Dior EO # 0.6 103/ul Normal 0.0-0.7 [facility] Comment on above: Performed By: #### C BC ####[facility] [address] [place], [place] [address]Dr. Ravin Dior Eosinophils/100 WBC (Bld) 6.6 % Normal 0.9-7.0 The [facility] Comment on above: Performed By: #### C BC ####[facility] [address] [place], [place] [address]Dr. Ravin Dior Erythrocyte distribution width (RBC) [Ratio] 16.2 % Critically high 11.0-15.0 [facility] Comment on above: Performed By: #### C BC ####[facility] [address] [place] [id number]. Ravin Dior Hematocrit (Bld) [Volume fraction] 43.3 % Normal 36.0-48.0 [facility] Comment on above: Performed By: #### C BC ####[facility] [address] [place] [id number]. Ravin Dior Hemoglobin (Bld) [Mass/Vol] 13.4 g/dL Normal 12.0-16.0 [facility] Comment on above: Performed By: #### C BC ####[facility] [address] [place] [id number]. Ravin Dior IG # 0.05 10e3/ul Critically high 0.00-0.03 [facility] Comment on above: Performed By: #### C BC ####[facility] [address] [place], [place] [id number]. Ravin Dior IG % 0.5 % Normal 0.0-0.5 [facility] Comment on above: Performed By: #### C BC ####[facility] [address] [place] [address]Dr. Ravin Ovi LYMPH # 2.1 103/ul Normal 1.2-3.8 [facility] Comment on above: Performed By: #### C BC ####[facility] [address] [place] [id number]. Ravin Ovi Lymphocytes/100 WBC (Bld) 23.1 % Normal 20.5-60.0 [facility] Comment on above: Performed By: #### C BC ####[facility] [address] [place] [id number]. Novalilliana Dior MANUAL DIFF REQ NO Normal [facility] Comment on above: Performed By: #### C BC ####[facility] [address] [place] [id number]. Ravin Ovi MCH (RBC) [Entitic mass] 29.5 pg Normal 26.7-34.0 [facility] Comment on above: Performed By: #### C BC ####[facility] [address] [place] [address]Dr. Ravin Dior MCHC (RBC) [Mass/Vol] 30.9 g/dL Normal 29.9-35.2 [facility] Comment on above: Performed By: #### C BC ####[facility] [address] [place] [address]Dr. Ravin Ovi MCV (RBC) [Entitic vol] 95.4 fL Normal 81.0-99.0 [facility] Comment on above: Performed By: #### C BC ####[facility] [address] [place] [address]Dr. Ravin Ovi MONO # 0.5 103/ul Normal 0.3-0.8 [facility] Comment on above: Performed By: #### C BC ####[facility] [address] [place] [address]Dr. Ravin Ovi Monocytes/100 WBC (Bld) 5.8 % Normal 1.7-12.0 [facility] Comment on above: Performed By: #### C BC ####[facility] [address] [place], [place] [address]Yl. Ravin Dior NEUT # 5.8 103/ul Normal 1.4-6.5 The [facility] Comment on above: Performed By: #### C BC ####[facility] [address]jbflb[address] [place] [id number]. Ravin Ovi Neutrophils/100 WBC (Bld) 63.6 % Normal 43.0-75.0 [facility] Comment on above: Performed By: #### C BC ####[facility] [address] [place] [id number]. Ravin Dior Platelet mean volume (Bld) [Entitic vol] 10.7 fL Normal 9.5-13.5 [facility] Comment on above: Performed By: #### C BC ####[facility] [address] [place] [id number]. Ravin Dior PLT 223 103/ul Normal 150-450 [facility] Comment on above: Performed By: #### C BC ####[facility] [address] [place] [id number]. Novalilliana Dior RBC 4.54 106/ul Normal 4.20-5.40 [facility] Comment on above: Performed By: #### C BC ####[facility] [address] [place] [address]Dr. Ravin Ovi WBC 9.2 103/ul Normal 4.0-11.0 The [facility] Comment on above: Performed By: #### C BC ####[facility] [address] [place] [id number] Novalilliana Dior FREE THYROXINE INDEX T7on FTI 2.44 Normal 1.30-4.50 [facility] Comment on above: Performed By: #### C MP, T7, TSH, LIPID #### [facility] Laboratory [address] [place], [place] [address] Dr. Ravin Dior T3U 33.0 % Normal 30.0-39.0 [facility] Comment on above: Performed By: #### C MP, T7, TSH, LIPID #### [facility] Laboratory [address] [place] [id number] [address]. Ravin Dior T4 [Mass/Vol] 7.40 ug/dL Normal 4.80-13.90 [facility] Comment on above: Performed By: #### C MP, T7, TSH, LIPID #### [facility] [address] [place], [place] [address] Dr. Ravin Dior GLYCOHEMOGLOBIN A1Con 2022 ADA RECOMMENDATION SEE BELOW Normal [facility] Comment on above: Result Comment: ADA RECOMMENDED LIMIT 4.0 - 6.0 ADA THERAPEUTIC TARGET < 7.0 ACTION SUGGESTED > 7.0 Performed By: #### A 1C ####[facility] [address] [place] [address]Dr. Ravin Dior Glucose [Mass/Vol] 105 mg/dL Normal [facility] Comment on above: Performed By: #### A 1C ####[facility] [address] [place] [address]Dr. Ravin Dior HbA1c (Bld) [Mass fraction] 5.3 % Normal 4.5-6.2 [facility] Comment on above: Performed By: #### A 1C ####[facility] [address] [place] [address]Dr. Ravin Dior IRONon 09-22-2022 Iron [Mass/Vol] 81.0 ug/dL Normal 50.0-170.0 [facility] Comment on above: Performed By: #### I SEAMUS ####[facility] [address] [place], [place] [address]DrViky Dior LIPID PROFILEon 09-22-2022 CHOL-HDL RATIO NORM SEE BELOW Normal [facility] Comment on above: Result Comment: 3.3 - 4.4 LOW RISK 4.4 - 7.1 AVERAGE RISK 7.1 - 11.0 MODERATE RISK >11.0 HIGH RISK Performed By: #### C MP, T7, TSH, LIPID ####[facility] [address] [place] [address]DrViky Dior Cholesterol [Mass/Vol] 159 mg/dL Normal <=200 [facility] Comment on above: Performed By: #### C MP, T7, TSH, LIPID ####[facility] [address] [place] [id number]. Ravin Dior Cholesterol in HDL [Mass/Vol] 47 mg/dL Normal 40-60 [facility] Comment on above: Performed By: #### C MP, T7, TSH, LIPID ####[facility] [address] [place] [id number]. Ravin Dior Cholesterol in LDL [Mass/Vol] 96.4 mg/dL Normal [facility] Comment on above: Performed By: #### C MP, T7, TSH, LIPID ####[facility] [address] [place] [id number]. Ravin Dior Cholesterol.total/Cho lesterol in HDL [Mass ratio] 3.4 {ratio} Normal [facility] Comment on above: Performed By: #### C MP, T7, TSH, LIPID ####[facility] [address] [place] [address]Dr. Ravin Dior HDL NORMAL > or = 60 mg/dl - LO W CARDIOVASCULAR RISK <40 mg/dl - HIGH CARDIOVASCULAR RISK Normal [facility] Comment on above: Performed By: #### C MP, T7, TSH, LIPID ####[facility] [address] [place] [address]Dr. Ravin Dior LDL CALC NORMAL SEE BELOW Normal [facility] Comment on above: Result Comment: <100 mg/dl OPTIMAL 100 - 129 mg/dl NEAR OR ABOVE OPTIMAL 130 - 159 mg/dl BORDERLINE HIGH 160 - 189 mg/dl HIGH >190 mg/dl VERY HIGH Performed By: #### C MP, T7, TSH, LIPID ####[facility] [address] [place] [id number]. Ravin Dior Triglyceride [Mass/Vol] 78 mg/dL Normal <=150 [facility] Comment on above: Performed By: #### C MP, T7, TSH, LIPID ####[facility] [address] [place] [id number]. Ravin Dior VLDL CALC 15.6 mg/dL Normal [facility] Comment on above: Performed By: #### C MP, T7, TSH, LIPID ####[facility] [address] [place], [place] [address]YqDr. Ravin Dior MG MAMM SCREEN 3D NIKOS CADon 09-22-2022 MG MAMM SCREEN 3D NIKOS CAD Patient: SAUL GUTIÉRREZ Exam Date: 09/22/2022 : 1945 Gender:F Ordering : HEAVEN STALEY [facility] Admission #: [id number] Family : Order #: [id number] CLICK HERE TO VIEW EXAM RADIOLOGY REPORT [...] Treatments None Family Cancers None LOCATION: The [facility] BREAST COMPOSITION: Almost entirely fatty. [...] Valenzuela M.D. on 09/22/2022 at 17:02 Normal [facility] PROF 14(COMP METB)on 09-22- 023 Albumin [Mass/Vol] 3.3 g/dL Critically low 3.4-5.0 Th e [facility] Comment on above: Performed By: #### C MP, T7, TSH, LIPID #### [facility] Laboratory [address] [place], [place] [address] Dr. Ravin Dior Albumin/Globulin [Mass ratio] 0.7 {ratio} Normal [facility] Comment on above: Performed By: #### C MP, T7, TSH, LIPID #### [facility] [address] [place] [address] [address] Ravin Dior ALP [Catalytic activity/Vol] 207 U/L Critically high 46-116 [facility] Comment on above: Performed By: #### C MP, T7, TSH, LIPID #### [facility] [address] [place] [address] [address] Ravin Dior ALT [Catalytic activity/Vol] 47 U/L Normal 14-59 [facility] Comment on above: Performed By: #### C MP, T7, TSH, LIPID #### [facility] [address] [place] [address] [address] Ravin Dior Anion gap [Moles/Vol] 11.5 mmol/L Normal [facility] Comment on above: Performed By: #### C MP, T7, TSH, LIPID #### [facility] [address] [place] [address] Dr. Ravin Dior AST [Catalytic activity/Vol] 35 U/L Normal 15-37 [facility] Comment on above: Performed By: #### C MP, T7, TSH, LIPID #### [facility] [address] [place] [address] [address] Ravin Dior Bilirubin [Mass/Vol] 0.6 mg/dL Normal 0.2-1.0 [facility] Comment on above: Performed By: #### C MP, T7, TSH, LIPID #### [facility] [address] [place] [address] [address] Ravin Dior Calcium [Mass/Vol] 9.2 mg/dL Normal 8.5-10.1 [facility] Comment on above: Performed By: #### C MP, T7, TSH, LIPID #### [facility] [address] [place] [address] [address] Ravin Dior Chloride [Moles/Vol] 109 mmol/L Critically high 98-107 [facility] Comment on above: Performed By: #### C MP, T7, TSH, LIPID #### [facility] [address] [place] [address] [address] Ravin Dior CO2 [Moles/Vol] 27.7 mmol/L Normal 21.0-32.0 [facility] Comment on above: Performed By: #### C MP, T7, TSH, LIPID #### [facility] [address] [place] [address] Dr. Ravin Dior Creatinine [Mass/Vol] 0.94 mg/dL Normal 0.55-1.02 The [facility] Comment on above: Performed By: #### C MP, T7, TSH, LIPID #### [facility] [address] [place] [address] Dr. Ravin Dior EGFR-AF CITIZEN [place] >60 Normal >=60 [facility] Comment on above: Performed By: #### C MP, T7, TSH, LIPID #### [facility] [address] [place] [address] Dr. Ravin Dior EGFR-NON AF CITIZEN OF [place] 58 mL/min/1.73m2 Critically low >=60 [facility] Comment on above: Performed By: #### C MP, T7, TSH, LIPID #### [facility] [address] [place] [address] Dr. Ravin Dior Globulin (S) [Mass/Vol] 4.7 g/dL Normal [facility] Comment on above: Performed By: #### C MP, T7, TSH, LIPID #### [facility] [address] [place] [address] Dr. Ravin Dior Glucose [Mass/Vol] 95 mg/dL Normal 74-106 [facility] Comment on above: Performed By: #### C MP, T7, TSH, LIPID #### [facility] [address] [place] [address] Dr. Ravin Dior Potassium [Moles/Vol] 4.2 mmol/L Normal 3.5-5.1 The [facility] Comment on above: Performed By: #### C MP, T7, TSH, LIPID #### [facility] [address] [place] [address] Dr. Ravin Dior Protein [Mass/Vol] 8.0 g/dL Normal 6.4-8.2 [facility] Comment on above: Performed By: #### C MP, T7, TSH, LIPID #### [facility] [address] [place] [address] [address] Ravin Dior Sodium [Moles/Vol] 144 mmol/L Normal 136-145 [facility] Comment on above: Performed By: #### C MP, T7, TSH, LIPID #### [facility] [address] [place] [address] [address] Ravin Dior Urea nitrogen [Mass/Vol] 21.0 mg/dL Critically high 7.0-18.0 [facility] Comment on above: Performed By: #### C MP, T7, TSH, LIPID #### [facility] [address] [address] [address] Ravin Dior Urea nitrogen/Creatinine [Mass ratio] 22.3 mg/mg Normal [facility] Comment on above: Performed By: #### C MP, T7, TSH, LIPID #### [facility] [address] [address] [address] Ravin Dior TSHon 09-22-2022 TSH 2.085 uIU/mL Normal 0.358-3.740 [facility] Comment on above: Performed By: #### C MP, T7, TSH, LIPID #### [facility] [address] [address] ABD/PELVIS WO CONon [...] was used, including Automated Exposure Control. FINDINGS: Transplanter Orchid: No pertinent findings, which are not already [...] the largest most superior hernia. Normal The [facility] CBC AUTO DIFFon 05-17-2022 BASO # 0.0 103/ul Normal 0.0-0.1 [facility] Comment on above: Performed By: #### C BC ####[facility] [address] [place], [place] [address]OyViky Dior Basophils/100 WBC (Bld) 0.2 % Normal 0.2-2.0 [facility] Comment on above: Performed By: #### C BC ####[facility] [address] [place], [place] [address]BvViky Dior EO # 0.1 103/ul Normal 0.0-0.7 [facility] Comment on above: Performed By: #### C BC ####[facility] [address] [address]Dr. Ravin Ovi Eosinophils/100 WBC (Bld) 1.4 % Normal 0.9-7.0 [facility] Comment on above: Performed By: #### C BC ####[facility] K[address] [place], [place] [address]Dr. Ravin Dior Erythrocyte distribution width (RBC) [Ratio] 13.7 % Normal 11.0-15.0 [facility] Comment on above: Performed By: #### C BC ####[facility] [address] [place], [place] [address]Dr. Ravin Dior Hematocrit (Bld) [Volume fraction] 44.4 % Normal 36.0-48.0 [facility] Comment on above: Performed By: #### C BC ####[facility] [address] [place], [place] [address]Dr. Ravin Dior Hemoglobin (Bld) [Mass/Vol] 14.7 g/dL Normal 12.0-16.0 The [facility] Comment on above: Performed By: #### C BC ####[facility] [address] [place], [place] [address]Dr. Ravin Dior IG # 0.05 10e3/ul Critically high 0.00-0.03 [facility] Comment on above: Performed By: #### C BC ####[facility] [address] [place], [place] [address]Dr. Ravin Dior IG % 0.5 % Normal 0.0-0.5 The [facility] Comment on above: Performed By: #### C BC ####[facility] [address] [place], [place] [address]DrViky Dior LYMPH # 1.7 103/ul Normal 1.2-3.8 [facility] Comment on above: Performed By: #### C BC ####[facility] [address] [place], [place] [address]Dr. Ravin Dior Lymphocytes/100 WBC (Bld) 17.1 % Critically low 20.5-60.0 [facility] Comment on above: Performed By: #### C BC ####[facility] [address] [address]DrViky Dior MANUAL DIFF REQ NO Normal The [facility] Comment on above: Performed By: #### C BC ####[facility] [address] [address]Dr. Ravin Dior MCH (RBC) [Entitic mass] 30.7 pg Normal 26.7-34.0 [facility] Comment on above: Performed By: #### C BC ####[facility] [address] [place], [place] [address]DrViky Dior MCHC (RBC) [Mass/Vol] 33.1 g/dL Normal 29.9-35.2 The [facility] Comment on above: Performed By: #### C BC ####[facility] [address] [place], [place] [address]DrViky Dior MCV (RBC) [Entitic vol] 92.7 fL Normal 81.0-99.0 The [facility] Comment on above: Performed By: #### C BC ####[facility] [address] [place], [place] [address]DrViky Dior MONO # 0.6 103/ul Normal 0.3-0.8 [facility] Comment on above: Performed By: #### C BC ####[facility] [address] [place], [place] [address]DrViky Dior Monocytes/100 WBC (Bld) 5.7 % Normal 1.7-12.0 The [facility] Comment on above: Performed By: #### C BC ####[facility] [address] [place], [place] [address]DrViky Dior NEUT # 7.7 103/ul Critically high 1.4-6.5 The [facility] Comment on above: Performed By: #### C BC ####[facility] Y[address] [place], [place] [address]DrViky Dior Neutrophils/100 WBC (Bld) 75.1 % Critically high 43.0-75.0 [facility] Comment on above: Performed By: #### C BC ####[facility] [address] [address]DrViky Dior Platelet mean volume (Bld) [Entitic vol] 10.4 fL Normal 9.5-13.5 [facility] Comment on above: Performed By: #### C BC ####[facility] [address] [place], [place] [address]Dr. Ravin Dior PLT 294 103/ul Normal 150-450 The [facility] Comment on above: Performed By: #### C BC ####[facility] Z[address] [place], [place] [address]Dr. Ravin Dior RBC 4.79 106/ul Normal 4.20-5.40 [facility] Comment on above: Performed By: #### C BC ####[facility] [address] [place], [place] [address]DrViky Dior WBC 10.2 103/ul Normal 4.0-11.0 [facility] Comment on above: Performed By: #### C BC ####[facility] [address] [place], [place] [address]Dr. Ravin Dior ER URINE PROFILEon 2 Bilirubin Ql (U) Negative Normal NEGATIVE The [facility] Comment on above: Performed By: #### DENY KAUFFMANRO #### [facility] [address] [place] [address] Dr. Ravin Dior Clarity (U) CLEAR Normal CLEAR The [facility] Comment on above: Performed By: #### DENY KAUFFMANRO #### [facility] [address] [place] [address] Dr. Ravin Dior Color (U) LT. YELLOW Normal YELLOW The [facility] Comment on above: Performed By: #### JAZ KAUFFMANICRO #### [facility] [address] [place] [address] Dr. Ravin Dior ERUAHD A micrscopic examination will be performed if indicated. Normal The [facility] Comment on above: Performed By: #### DENY KAUFFMANRO #### [facility] [address] [place] [address] Dr. Ravin Dior Glucose Ql (U) Negative Normal NEGATIVE [facility] Comment on above: Performed By: #### DENY KAUFFMANRO #### [facility] [address] [place] [address] Dr. Ravin Dior Hemoglobin Ql (U) Negative Normal NEGATIVE [facility] Comment on above: Performed By: #### Tammy SOUTH UMICRO #### [facility] [address] [place] [address] Dr. Ravin Dior Ketones Ql (U) TRACE Abnormal NEGATIVE [facility] Comment on above: Performed By: #### Tammy SOUTH UMICRO #### [facility] [address] [place] [address] Dr. Ravin Dior LEUKOCYTES SMALL Abnormal NEGATIVE [facility] Comment on above: Performed By: #### DENY KAUFFMANRO #### [facility] [address] [place] [address] Dr. Ravin Dior Nitrite Ql (U) Negative Normal NEGATIVE The [facility] Comment on above: Performed By: #### DENY KAUFFMANRO #### [facility] [address] [place] [address] Dr. Ravin Dior pH (U) 6.0 [pH] Normal 5-9 [facility] Comment on above: Performed By: #### DENY KAUFFMANRO #### [facility] [address] [place] [address] Dr. Ravin Dior SPEC GRAVITY 1.010 Normal 1.005-<=1.025 The [facility] Comment on above: Performed By: #### DENY KAUFFMANRO #### [facility] [address] [place] [address] Dr. Ravin Dior UA PROTEIN Negative Normal NEGATIVE/ TRACE The [facility] Comment on above: Performed By: #### DENY KAUFFMANRO #### [facility] [address] [place] [address] Dr. Ravin Dior UR MICRO IND INDICATED Normal [facility] Comment on above: Performed By: #### E JAZ SOUTHICRO #### [facility] [address] [address] [address] Ravin Dior Urobilinogen Qn (U) 0.2 {Chandler'U}/dL Normal 0.2 - 1. 0 The [facility] Comment on above: Performed By: #### E DENY SOUTHRO #### [facility] [address] [address] [address] Ravin Dior LACTATE/LACTIC ACIDon 2021 Lactate [Moles/Vol] 1.3 mmol/L Normal 0.4-1.9 [facility] Comment on above: Performed By: #### L ACT ####[facility] [address] [address]Dr. Ravin Dior LIPASEon 05-17-2022 Lipase [Catalytic activity/Vol] 63.0 U/L Critically low 73.0-393.0 [facility] Comment on above: Performed By: #### C MP, LIPA #### [facility] [address] [address] [address] Ravin Dior PROF 14(COMP METB)on 022 Albumin [Mass/Vol] 3.4 g/dL Normal 3.4-5.0 [facility] Comment on above: Performed By: #### C MP, LIPA #### [facility] [address] [place] [address] Dr. Ravin Dior Albumin/Globulin [Mass ratio] 0.8 {ratio} Normal [facility] Comment on above: Performed By: #### C MP, LIPA #### [facility] [address] [address] [address] Ravin Dior ALP [Catalytic activity/Vol] 143 U/L Critically high 46-116 [facility] Comment on above: Performed By: #### C MP, LIPA #### [facility] [address] [address] [address] Ravin Dior ALT [Catalytic activity/Vol] 29 U/L Normal 14-59 The [facility] Comment on above: Performed By: #### C MP, LIPA #### [facility] [address] [address] [address] Ravin Dior Anion gap [Moles/Vol] 7.6 mmol/L Normal [facility] Comment on above: Performed By: #### C MP, LIPA #### [facility] [address] [place] [address] Dr. Ravin Dior AST [Catalytic activity/Vol] 39 U/L Critically high 15-37 [facility] Comment on above: Performed By: #### C MP, LIPA #### [facility] [address] [place] [address] Dr. Ravin Dior Bilirubin [Mass/Vol] 0.7 mg/dL Normal 0.2-1.0 [facility] Comment on above: Performed By: #### C MP, LIPA #### [facility] [address] [place] [address] Dr. Ravin Dior Calcium [Mass/Vol] 9.1 mg/dL Normal 8.5-10.1 [facility] Comment on above: Performed By: #### C MP, LIPA #### [facility] [address] [place] [address] Dr. Ravin Dior Chloride [Moles/Vol] 102 mmol/L Normal 98-107 [facility] Comment on above: Performed By: #### C MP, LIPA #### [facility] [address] [place] [address] Dr. Ravin Dior CO2 [Moles/Vol] 31.1 mmol/L Normal 21.0-32.0 [facility] Comment on above: Performed By: #### C MP, LIPA #### [facility] [address] [place] [address] Dr. Ravin Dior Creatinine [Mass/Vol] 0.88 mg/dL Normal 0.55-1.02 [facility] Comment on above: Performed By: #### C MP, LIPA #### [facility] [address] [place] [address] Dr. Ravin Dior EGFR-AF CITIZEN OF [place] >60 Normal >=60 [facility] Comment on above: Performed By: #### C MP, LIPA #### [facility] [address] [place] [address] Dr. Ravin Dior EGFR-NON AF CITIZEN OF [place] >60 Normal >=60 [facility] Comment on above: Performed By: #### C MP, LIPA #### [facility] [address] [address] [address] Ravin Dior Globulin (S) [Mass/Vol] 4.5 g/dL Normal [facility] Comment on above: Performed By: #### C MP, LIPA #### [facility] [address] [place] [address] Dr. Ravin Dior Glucose [Mass/Vol] 100 mg/dL Normal 74-106 [facility] Comment on above: Performed By: #### C MP, LIPA #### [facility] [address] [place] [address] Dr. Ravin Dior Potassium [Moles/Vol] 3.7 mmol/L Normal 3.5-5.1 [facility] Comment on above: Performed By: #### C MP, LIPA #### [facility] [address] [place] [address] Dr. Ravin Dior Protein [Mass/Vol] 7.9 g/dL Normal 6.4-8.2 [facility] Comment on above: Performed By: #### C MP, LIPA #### [facility] [address] [place] [address] Dr. Ravin Dior Sodium [Moles/Vol] 137 mmol/L Normal 136-145 [facility] Comment on above: Performed By: #### C MP, LIPA #### [facility] [address] [place] [address] Dr. Ravin Dior Urea nitrogen [Mass/Vol] 12.0 mg/dL Normal 7.0-18.0 [facility] Comment on above: Performed By: #### C MP, LIPA #### [facility] [address] [place] [address] Dr. Ravin Dior Urea nitrogen/Creatinine [Mass ratio] 13.6 mg/mg Normal [facility] Comment on above: Performed By: #### C MP LIPA #### [facility] [address] [place] [address] Dr. Ravin Dior URINE MICROSCOPIC ONLYon BACTERIA NONE SEEN Normal NONE SEEN The [facility] Comment on above: Performed By: #### E RUR, UMICRO #### [facility] [address] [place] [address] Dr. Ravin Dior Bacteria identified Cx Nom (U) NOT INDICATED Normal [facility] Comment on above: Performed By: #### E RUR, UMICRO #### [facility] [address] [place] [address] Dr. Ravin Dior CAST NONE SEEN Normal NONE SEEN The [facility] Comment on above: Performed By: #### E RUR, UMICRO #### [facility] [address] [place] [address] Dr. Ravin Dior Crystals LM Nom (Urine sed) NONE SEEN Normal NONE SEEN The [facility] Comment on above: Performed By: #### E RUR, UMICRO #### [facility] [address] [place] [address] Dr. Ravin Dior Epithelial cells LM Ql (Urine sed) FEW Abnormal NONE SEEN /RARE The [facility] Comment on above: Performed By: #### E RUR, UMICRO #### [facility] [address] [place] [address] Dr. Ravin Dior MUCOUS NONE SEEN Normal NONE SEEN The [facility] Comment on above: Performed By: #### E RUR, UMICRO #### [facility] [address] [place] [address] Dr. Ravin Dior RBC NONE SEEN Abnormal 0-2 [facility] Comment on above: Performed By: #### E RUR, UMICRO #### [facility] [address] [place] [address] Dr. Ravin Dior WBC 0-2 Abnormal NONE SEEN The [facility] Comment on above: Performed By: #### E RUR, UMICRO #### [facility] [address] [address] [address] Ravin Dior Ambulatory Clinical Summaryo n 07-24-2020 Ambulatory Clinical Summary {[id number] Normal [facility] Gastroenterology Office/Clin ic Noteon 07-24-2020 [...] course, # 28 cap(s), Refills(s) 0, Pharmacy: [facility]/pharmacy #[id number], 165, cm, 07/24/20 12:03:00 EST, Height/Length Dosing, 95.9, kg, 07/24/20 12:03:00 EST, Weight Dosing metronidazole, 250 mg = 1 tab(s), Oral, TID, X 7 day(s), # 21 tab(s), Refills(s) 0, Pharmacy: [facility]/pharmacy #[id number], 165, cm, 07/24/20 12:03:00 [...] water, # 160 cap(s), Refills(s) 1, Pharmacy: [facility]/pharmacy #[id number], 165, cm, 07/24/20 12:03:00 EST, Height/Length Dosing, 95.9, kg, 07/24/20 12:03:... Orders: pantoprazole, 40 mg = 2 tab(s), Oral, Daily, X 90 day(s), # 180 tab(s), Refills(s) 3, Pharmacy: [facility]/pharmacy #[id number], 165, cm, 07/24/20 12:03:00 EST, Height/Length Dosing, 95.9, kg, 07/24/20 12:03:00 EST, Weight Dosing Follow-up With When Contact Information Isabelle Ramirez MD In 12 months [address] [address]- Additional Instructions: Problem List/Past Medical [...] 12/16/2018 Exercise - Occasional exercise, 12/16/2018 Other Qfuplkox-5-4 cups blair;y, 12/16/2018 Substance Abuse - Denies Substance Abuse, 12/16/2018 Tobacco Never (less than 100 in lifetime) Tobacco Use:., 07/24/2020 Never (less than 100 in lifetime) Tobacco Use:. Never Smokeless Tobacco Use:., 02/01/2019 [facility] Comment on above: Result Comment: Elec tronically Signed By: Taylor Mccauley MD, Isabelle\.bernie\Date and Time Signed: 07/24/20 13:13 EST Auth for Release of Medical Recordson 02-09-2020 Auth for Release of Medical Records [id number] [facility] January 24, 2020 SAUL GUTIÉRREZ [address] [place] [address] SAUL GUTIÉRREZ 1945 Dear Saul, This is a reminder that you are due for an appointment with Dr. Garland or Dr. Mccauley. Please call [facility] at [phone] to schedule an appointment at your earliest convenience. Thank you, [facility] Encounters Encounter Date Encounter Type Care Provider Facility Start: 02-08-2024 End: 02-08-2024 ambulatory [facility] Start: 01-18-2024 ambulatory [facility] Start: 01-17-2024 End: 01-17-2024 ambulatory CARIDAD GARNER Not Available Start: 01-11-2024 End: 01-11-2024 ambulatory SANDIE PAGE Not Available Start: 01-05-2024 ambulatory [facility] Start: 12-20-2023 End: 12-20-2023 ambulatory SANDIE PAGE Not Available Start: 12-16-2023 ambulatory [facility] Start: 12-01-2023 End: 12-01-2023 ambulatory ADELAIDA RIZO [facility] Start: 11-25-2023 ambulatory SHAYY ORTIZ [facility] Start: 11-24-2023 ambulatory [facility] Start: 11-23-2023 ambulatory [facility] Start: 11-23-2023 Encounter for preprocedural cardiovascular examination [facility] Start: 11-11-2023 End: 11-11-2023 ambulatory SHAR GARCÍA Not Available Start: 11-01-2023 ambulatory [facility] Start: 11-01-2023 End: 11-01-2023 ambulatory [facility] Start: 08-10-2023 End: 08-10-2023 ambulatory [facility] Start: 07-14-2023 End: 07-14-2023 ambulatory ADELAIDA RIZO [facility] Start: 07-05-2023 ambulatory [facility] Start: 07-05-2023 End: 07-05-2023 ambulatory [facility] Start: 06-05-2023 Refill Mac Lujan sser BUSINESS LAW INSTRUCTOR-ROTARY DRILLER Work Phone: [facility] Comment on above: Med Refill Start: 05-18-2023 End: 05-18-2023 ambulatory [facility] Start: 03-23-2023 End: 03-26-2023 ambulatory [facility] Start: 09-22-2022 End: 09-23-2022 ambulatory HEAVEN STALEY [...] Adult BMI Screening Adult BMI Screen ing [facility] Start: 08-25-2023 Tobacco Screening Tobacco Screening [facility] Start: 01-29-2023 COVID-19 Vaccine ( season) COVID-19 Vaccine ( season) [facility] Start: 01-29-2023 Influenza vaccination Influenza Vacc ine [facility] Start: 11-03-2022 ambulatory Ambulatory Facility:H 1 Start: 2010 Fall Risk Screening Fall Risk Screen ing [facility] Start: 1995 Administration of varicella zoster vaccine Zoster (Shingles) Vaccine (1 of 2) [facility] Start: 1964 DTaP,Tdap and Td Vac cines (1 - Tdap) DTaP,Tdap and Td Vaccines (1 - Tdap) [facility] Start: 1963 Adult BMI Follow Up Plan Adult BMI Follow Up Plan [facility] Start: 1957 Depression Screening Depression Scre laura [facility] Start: 1945 Medicare Annual Well ness Visit Medicare Annual Wellness Visit [facility] End: 06-08-2024 Basic metabolic 2000 panel - Serum or Plasma Basic Metabolic Panel Lab Routine Essential hypertension 1 Occurrences starting 06/08/2023 until 06/08/2024 [employer] Work Phone: Comment on above: 1 Occurrences starti ng 06/08/2023 until 06/08/2024 Immunizations Immunization Date Immunization Notes Care Provider Tutu rehman 05-08-2021 influenza virus vaccine, unspecified formulation Mac Erwin BUSINESS LAW INSTRUCTOR-ROTARY DRILLER [facility] Payers Date Payer Category Payer Medicare [employer] MEDICARE [employer] [id number] 2013-Present [phone] [address] [address] [place] [address] [id number] 1959 Medicare [id number] 1945 Unknown [id number] 1945 Unknown [id number] 1945 Unknown [id number] 1945 Unknown [id number] 1945 Unknown [id number] 1945 Unknown [id number] 1945 Unknown [id number] 1945 Unknown [id number] 9 1945 Unknown [id number] 9 1945 Unknown [id number] 9 1945 Unknown [id number] 9 Social History Date Type Detail Facility Start: 05-26-2022 Tobacco smoking stat [facility] Never smoked tobacco [facility] Start: 05-26-2022 Tobacco use and exposure Smoke less tobacco non-user [facility] Start: 08-24-2022 Alcohol intake Current non-dr division chief of alcohol (finding) [facility] Start: 07-04-2020 End: 08-24-2022 History of Social function [facility] Start: 07-04-2020 End: 08-24-2022 Tobacco use panel [facility] Housing Instability Unknown [facility] Start: 1945 Sex Assigned At Not on file P [facility] Medical Equipment Procedure Code Equipment Code Equipment Origin al Text Equipment Identifier Dates Mesh [id number] 3d Rect Plstr Clgn Symbotex 2 Sd Comp Mfl Babsr Rpl [id number] - Sna - [id number] Start: 06-30-2022 Dev Clsr 30fr Watchman 30mm - [id number] Start: 10-28-2018 Clinical Notes 12-24-2021 to 02-14-2024 Note Date & Type Note Facility 02-14-2024 Note [facility]= [facility] 02-11-2024 Note RCRI= 2 points Class III Risk 10.1 % 30-day risk of , NM, or cardiac arrest From a cardiac perspective pt may proceed with planned surgery, she is a moderate risk for a moderate risk orthopedic surgery. She may hold Aspirin 5-7 days prior and resume post op. Please monitor hemodynamics carefully and prevent any major fluid shifts. Adelaida Darrius [facility] Cardiology Available 7a-5pm via [employer] Chat Pager [phone] [facility] 12-01-2023 Note Currently pt is doin g quite well s/p recent AV node ablation Remains V paced with BI-V AICd [facility] 12-01-2023 Note [facility] UTP CARDIOLOGY PROGR ESS [...] GI bleed. [facility] She was initially seen [...] is a year. She was seen by Angel ADAMS in January 25, 2023 for A-fib and at that time a discussion regarding sinus rhythm maintenance with ablation was entertained but considered a poor candidate as she could not tolerate anticoagulation. Patient here for follow up event monitor and afib management per Angel Foley DNP. She will be scheduled for [...] normal. (more content not included)... [facility] 12-01-2023 Note Patient here for fol low up AV node ablation performed on 11/01/[address] Madden. She denies chest pain, SOB, palpitations, and lightheadedness/syncope. Review of Systems Musculoskeletal: Positive for arthritis and back pain. All other systems reviewed and are negative. [facility] 11-01-2023 Note AV NODE ABLATION PRO CEDURE REPORT DATE OF PROCEDURE: 11/01/2023 PERFORMING PHYSICIAN: Dr. Robert Madden CORK MIXER: TOÑA CONSENT: Patient NAME OF THE PROCEDURE: [...] GI bleed. She was previously seen by [facility] cardiology. She was initially seen by Dr. [...] is a year. She was seen by Angel ADAMS in January 25, 2023 for A-fib [...] Robert Madden MD Cardiac Electrophysiology. [facility] 11-01-2023 Note Patient: Saul mcghee Procedure Information Date/Time: 11/01/23829 Procedure: AV node ablation Location: [facility] 1 EP / [facility] HV VASCULAR LAB (Cath) [...] patient who. Additional Equipment Requests [facility] 11-01-2023 Note SC Electrophysiology Consult Note Reason for visit: Afib [...] GI bleed. [facility] She was initially seen [...] is a year. She was seen by Angel ADAMS in January 25, 2023 for A-fib and at that time a discussion regarding sinus rhythm maintenance with ablation was entertained but considered a poor candidate as she could not tolerate anticoagulation. Patient here for follow up event monitor and afib management per Angel Foley DNP. She will be scheduled for [...] on file Intimate Partner Violence: Unknown (07/23/2023) [place] Safety & Environment Fear of Current or [...] tab (more content not included)... [facility] 08-27-2023 Note ca [facility] 07-14-2023 Note stable [facility] 07-14-2023 Note Patient here for wou nd check s/p BiV ICD implant on 07/05/[address] Madden. [facility] 07-14-2023 Note UTP CARDIOLOGY PROGR ESS [...] GI bleed. She was previously seen by [facility] cardiology. She was initially seen by Dr. [...] is a year. She was seen by Angel ADAMS in January 25, 2023 for A-fib and at that time a discussion regarding sinus rhythm maintenance with ablation was entertained but considered a poor candidate as she could not tolerate anticoagulation. Patient here for follow up event monitor and afib management per Angel Foley DNP. She will be scheduled for [...] No (more content not included)... [facility] 07-14-2023 Note Site well approximat ed and healing well No s/s of infection or hematoma, + ecchymosis noted [facility] 07-14-2023 Note -[id number] at [facility] 5 for age x2, gender, hypertension, CHF, on aspirin s/p watchmen Continue meds as prescribed [facility] 07-05-2023 Note BRASS PLATER-D IMPLANT PROCED URE NOTE DATE OF PROCEDURE: 07/05/2023 PERFORMING PHYSICIAN: Dr. Robert Madden CORK MIXER: TOÑA CONSENT: Patient LOCATION: [employer] PROCEDURE PERFORMED: 1. Implantation of Biventricular ICD ([employer]). 2. U/S venous access 3. Coronary [...] GI bleed. She was [facility]. She was initially seen by Dr. [...] is a year. She was seen by Angel ADAMS in January 25, 2023 for A-fib [...] occasions using seldinger technique using a 5 Latvian micropunture needle and exchanged for 0.034 wire. I decided to proceed with opening of the pocket. Localinfiltration of 1% Lidocaine was performed and an incision was created in the left upper chest. Dissection was then performed using cautery down. An active fixation [employer] ICD lead was then delivered through the 8F sheath to the right ventricle. After confirmation of lead position on orthogonal views (BECK and TRISTANIAN) to confirm position in the septal aspect, [...] The leads were then attached to a [employer] BRASS PLATER-D device with atrial ort capped and the [...] hemodynamically (more content not included)... [facility] 07-05-2023 Note Patient: Saul mcghee Procedure Information Date/Time: 07/05/23 1400 Procedure: Implant ICD - biventricular Location: [facility] / [facility] HV VASCULAR LAB (Cath) Providers: Robert Madden MD Clinical information reviewed: Allergies Meds Physical Exam Airway Mallampati: II TM distance: >3 FB Neck ROM: full Cardiovascular Dental Pulmonary Abdominal Anesthesia Plan ASA 2 CSE Anesthetic plan and risks discussed with patient. Use of blood products discussed with patient who. Additional Equipment Requests [facility] 05-18-2023 Note SC Electrophysiology Consult Note Reason for visit: Afib [...] GI bleed. She was previously seen by [facility] cardiology. She was initially seen by Dr. [...] is a year. She was seen by Angel ADAMS in January 25, 2023 for A-fib and at that time a discussion regarding sinus rhythm maintenance with ablation was entertained but considered a poor candidate as she could not tolerate anticoagulation. Patient here for follow up event monitor and afib management per Angel Foley DNP. She will be scheduled for [...] we (more content not included)... [facility] 03-23-2023 Note SC Electrophysiology Consult Note Reason for visit: Afib HPI: Saul Gutiérrez is a 77 y.o. year old with past medical history of HFrEF with EF of 35% as per an echocardiogram in May 2022, nonobstructive coronary artery disease as per cath on 01/05/2023 who previously had undergone a Watchman procedure in 2019 due to GI bleed. She was previously seen by [facility] cardiology. She was initially seen by Dr. [...] is a year. She was seen by Angel ADAMS in January 25, 2023 for A-fib and at that time a discussion regarding sinus rhythm maintenance with ablation was entertained but considered a poor candidate as she could not tolerate anticoagulation. Patient here for follow up event monitor and afib management per Angel Foley DNP. She will be scheduled for [...] no (more content not included)... [facility] 07-23-2022 Note PAIN MANAGEMENT CONS ULTATION [...] months' time or sooner if needed. [facility] 03-26-2022 Note CONSULTATION CONSULTATION DATE: [...] agrees with the plan of care. [facility] 12-24-2021 Note CONSULTATION PROCEDURE DATE: [...] the procedure well with no complications. [facility] 12-24-2021 Note CONSULTATION CONSULTATION DATE: [...] three months' time, unless otherwise indicated. [facility] Evaluation note Diagnosis Essential hypertension- Primary Unspecified essential hypertension documented in this encounter [facility] filed[facility] in [facility] encounter [facility] Summary Purpose Family History No Family History Records FoundNo Family History Records FoundNo Family History Records FoundNo Family History Records Found Advance Directives No Advanced Directives Records FoundNo Advanced Directives Records FoundNo Advanced Directives Records FoundNo Advanced Directives Records Found Additional Source Comments INFORMATION SOURCE (unrecogn ized section and content) DATE CREATED AUTHOR 07/25/2020 Travis Cordova [facility] DATE CREATED AUTHOR AUTHOR'S ORGANIZ ATION 10/12/2022 [facility] DATE CREATED AUTHOR AUTHOR'S ORGANIZ ATION 01/17/2024 [facility] EPIC DATE CREATED AUTHOR AUTHOR'S ORGANIZ ATION 02/16/2024 [facility] Reason for Visit (unrecogniz ed section and content) Reason Comments Med Refill Care Teams (unrecognized sec tion and content) Flight Nurse Relationship Specialty Start Date End Date Heaven Staley, BUSINESS LAW INSTRUCTOR-ROTARY DRILLER [address] [place] [address] PCP - General Family Medicine 10/30/21 FOR [...] BE BASED ON THE PRIMARY CLINICAL RECORDS. [employer] provides no warranty or guarantee of the accuracy or completeness of information in this document.
--- NOTE | 2024-02-17 08:13 | PM.CN ---
Consult Note: HPI Data of Consult Patient: known to practice within the last 3 years Requesting Physician: Carmen Ramey NP Primary Care Provider: FIDELINA STALEY Consult Narrative Reason for consult: f/u Narrative: Radha Cornell a pleasant 78 year old female presents for evaluation and management of chronic low back pain. Pain today 8/10 ache which numbness tingling of left leg, increased with all activity and decreased with lying down and heat. Patient has found mild benefit to current medication regimen, did not start zonegran due to concerns of side effects. Recent caudal FARIBA providing no relief. Lumbar CT completed and consistent with L4-5 listhesis with moderate multilevel degenerative changes. Following with ETHAN Ramírez, upcoming additional level fusion february 27. cc:: CC: Carmen Ramey NP Review of Systems ROS Status of ROS 10 or more systems reviewed and unremarkable except as noted in history and below Musculoskeletal Reports: back pain and extremity pain PFSH PFSH Medical History Rectocele ?N81.6 - Rectocele (ICD-10) Bruising ?T14.8XXA - Other injury of unspecified body region, initial encounter (ICD-10) Anemia ?D64.9 - Anemia, unspecified (ICD-10) Upper back pain ?M54.9 - Dorsalgia, unspecified (ICD-10) Neck pain ?M54.2 - Cervicalgia (ICD-10) Low back pain ?M54.50 - Low back pain, unspecified (ICD-10) Fibromyalgia ?M79.7 - Fibromyalgia (ICD-10) Heartburn ?R12 - Heartburn (ICD-10) Acid reflux ?K21.9 - Gastro-esophageal reflux disease without esophagitis (ICD-10) Sleep apnea ?G47.30 - Sleep apnea, unspecified (ICD-10) Atrial fibrillation ?I48.91 - Unspecified atrial fibrillation (ICD-10) Surgical History S/P lumbar spine operation ?Z98.890 - Other specified postprocedural states (ICD-10) S/P shoulder surgery ?Z98.890 - Other specified postprocedural states (ICD-10) History of bariatric surgery ?Z98.84 - Bariatric surgery status (ICD-10) H/O heart surgery ?Z98.890 - Other specified postprocedural states (ICD-10) H/O: hysterectomy ?Z90.710 - Acquired absence of both cervix and uterus (ICD-10) Hx of cholecystectomy ?Z90.49 - Acquired absence of other specified parts of digestive tract (ICD-10) Meds Home Medications and Allergies Home Medications ?Medication ?Instructions ?Recorded ?Confirmed ?Type cholecalciferol (vitamin D3) 125 5,000 unit PO DAILY 11/03/22 12/14/23 History mcg (5,000 unit) capsule furosemide 40 mg tablet (Lasix) 40 mg PO BID 11/03/22 12/14/23 History krill 2 cap PO DAILY 11/03/22 12/14/23 History [id number]-[id number]-eri-icu-mj7-lyy-astax 1,500 mg-165 mg-67.5 mg capsule losartan 25 mg tablet 25 mg PO DAILY 11/03/22 12/14/23 History metoprolol succinate 25 mg 12.5 mg PO BID 11/03/22 12/14/23 History tablet,extended release 24 hr multivitamin 1 tab PO DAILY 11/03/22 12/14/23 History pantoprazole 40 mg tablet,delayed 40 mg PO BID 11/03/22 12/14/23 History release (Protonix) pramipexole 1 mg tablet (Mirapex) 1 mg PO DAILY 11/03/22 12/14/23 History trazodone 50 mg tablet 50 mg PO DAILY 11/03/22 12/14/23 History vitamin B complex 1 cap PO DAILY 11/03/22 12/14/23 History naloxone 4 mg/actuation nasal 4 mg intranasal Q3M PRN opioid 02/11/23 12/14/23 Rx spray (Narcan) overdose #2 ea baclofen 10 mg tablet 10 mg PO BID PRN muscle spasm #60 07/28/23 12/14/23 Rx tabs oxycodone-acetaminophen 5 mg-325 1 tab PO TID PRN pain #90 tabs 12/15/23 Rx mg tablet (Percocet) zonisamide 50 mg capsule 50 mg PO DAILY #30 caps 12/23/23 Rx oxycodone-acetaminophen 5 mg-325 1 tab PO TID PRN pain #90 tabs 01/19/24 Rx mg tablet (Percocet) oxycodone-acetaminophen 5 mg-325 1 tab PO TID PRN pain #90 tabs 02/14/24 Rx mg tablet (Percocet) Allergies Allergy/AdvReac Type Severity Reaction Status Date / Time codeine Allergy Mild Hives Verified 12/14/23 10:23 pregabalin [From Lyrica] Allergy Shakiness Verified 12/14/23 10:23 Exam Constitutional Documenting provider has reviewed patient's vital signs: yes Common normals: no apparent distress, oriented x3, healthy appearing, alert and well nourished General appearance: cooperative HENNV Common normals: normocephalic, hearing grossly normal bilaterally and moist oral mucous membranes Head and scalp: normocephalic Eye Common normals: PERRL Pupil: PERRL Neck & C-Spine Common normals: full ROM General: normal visual inspection Chest Common normals: inspection of chest normal Respiratory Common normals: normal respiratory effort, no retractions and no use of accessory muscles Back & Pelvis Lumbar spine/lower back: ROM limited, pain with ROM and straight leg raise positive left Other: facet loading negative tender to touch and pain with activity over left superior gluteal nerve positive fabers to left, pain with gaenslen and thigh thrust pain following l4/5 l5/s1 dermatomal pattern on left, decreased sensation noted Extremity Common normals: normal to inspection and full ROM Neuro Common normals: oriented x3, CN's II-XII intact bilaterally, moves all extremities, no focal motor deficits, no sensory deficits noted and deep tendon reflexes 2+ bilaterally Sensorium/orientation: alert Motor exam: strength 5/5 throughout and no movement abnormalities noted Psych Common normals: mental status grossly normal, thought process normal, cooperative, affect normal, speech normal and activity/motor behavior normal Speech: normal speech Thought process: normal thought process Results Additional Findings Additional findings: If on a controlled substance or opioids, I have checked an [place]ARRS report on this patient and there are no aberrancies noted in the prescribing history.??If on a controlled substance or opioid a drug screen was completed and reviewed within the last year, and if there has not been a drug screen completed we ordered one today to monitor higher risk, state monitored pain medication use. As part of providing excellent, safe, comprehensive care, the following was completed at our patient's visit: 1. A medication reconciliation and review to ensure accurate knowledge of current/active medications, including asking our patients to inform us about any ujgk-qke-firtehj medications or herbal remedies/nutritional supplements/alternative remedies. 2. A review to specifically ensure our patients have had annual screening for screening for depression, screening for tobacco use, and screening for unhealthy alcohol use. For concerning screenings had a discussion with the patient, provided patient education, and recommended follow-up with primary care provider when appropriate. If patient noted with a risk of falling, they received education on strength, gait, and balance training to prevent future risk of falling. Assessment and Plan Assessment and Plan (1) Lumbar radiculopathy: (2) Lumbar spine instability: (3) Failed back syndrome: (4) Lumbar spondylosis: (5) Muscle spasm: (6) Chronic prescription opiate use: Assessment and Plan: I feel these medications are improving the patient's quality of life and allow them to tolerate activities of daily living as well as participate in recreational activity.? The patient does not report intolerable side effects. The patient is NOT opioid naive and non-pharmacologic and non-opioid treatment has failed to significantly relieve the patient's pain and improve functionality. The patient has a diagnosis that is related to a somatic or visceral pain etiology. ? ?? I reviewed with the patient the potential risks and side effects with the use of? opioid medications including but not limited to respiratory depression,? sedation, and even . I verified the patient has access to naloxone should? these effects occur. I advised the patient to avoid the use of any other? sedation substances including alcohol, THC, and benzodiazepines while? taking opioid medications due to the risk of compounding side effects and? detrimental outcomes. I reviewed the [facility], pain treatment agreement, urine? drug screen, and opioid start talking forms. The patient was advised to let? their family know they had Naloxone in case they would need to administer? the medication.? ?? A drug screen was completed within the last year, and no aberrancies were noted regarding their use of controlled substances. The patient understands they are subject to the terms and conditions of the pain contract that they have signed. ? ?? I have checked an OARRS report on this patient today and there are no aberrancies noted in the prescribing history.? (7) Status post lumbar spinal fusion: Plan continue f/u with Dr Ramírez, we discussed post-op pain medication to be managed by Dr Ramírez and she can call to resume her medications when released continue current medications, can take baclofen 5-10mg BID PRN narcan discussed and prescribed update UDS today continue f/u with cardiology, pacemaker f/u 3 months, sooner if needed
== END 2024-02-17 07:48 | disposition home or self-care (01) ==
LOC: PM 07:47
PROVIDERS: PCP Nurse Practitioner Family; Visit Provider Nurse Practitioner
DX: M47.26 Other spondylosis with radiculopathy, lumbar region (principal); M62.838 Other muscle spasm; Z79.891 Long term (current) use of opiate analgesic; M96.1 Postlaminectomy syndrome, not elsewhere classified; M53.2X9 Spinal instabilities, site unspecified
CPT/HCPCS: G0463

== ENCOUNTER 2024-02-18 09:59 | Outpatient (OUT) | payer MEDICARE, SELFPAY ==
--- NOTE | 2024-02-18 | ECG_ITS ---
[facility] Test Date: 2024-02-18 Pat Name: SAUL GUTIÉRREZ Department: Room: - Gender: Female Space [employer] Faculty Member: : 1945 Requested By: Order Number: [id number] Reading MD: JAMIE PAPPAS Measurements Intervals [place] Rate: 80 P: CT: QRS: 91 QRSD: 124 T: 91 QT: 424 QTc: 489 Interpretive Statements ELECTRONIC VENTRICULAR PACEMAKER ABNORMAL RHYTHM ECG Compared to ECG 04/20/2018 16:36:54 Atrial fibrillation no longer present Myocardial infarct finding no longer present Electronically Signed On 02-18-2024 18:35:22 EDT by JAMIE PAPPAS
--- OUTSIDE RECORDS SUMMARY | 2024-02-18 10:19 | XMS_ITS | CCD ---
Author Organization [facility] Care Team Providers Care Front Desk Manager Name Role Phone JOHNSON ., DR JAYLON Ruelas Admitting Unavailable ORNELAS ., DR JAYLON Ruelas Attending Unavailable LUÍS HEAVEN Primary Care Unavailable ORNELAS ., DR JAYLON Ruelas Consulting Unavailable MICHELINE MOLINA Consulting Unavailable ORNELAS ., DR JAYLON Ruelas Admitting Unavailable ORNELAS ., DR JAYLON Ruelas Attending Unavailable [facility] Primary Care Unavailable RODRIGUEZ ., SABRINA Consulting Unavailable ORNELAS ., DR JAYLON Ruelas Admitting Unavailable ORNELAS ., DR JAYLON Ruelas Attending Unavailable [facility] Primary Care Unavailable RODRIGUEZ ., SABRINA Consulting Unavailable [facility] Primary Care Unavailable LAKSHMIPATHY ., NARENDRANATH Admitting Charity vailable LAKSHMIPATHY ., NARENDRANATH Attending Charity vailable LAKSHMIPATHY ., NARENDRANATH Consulting Charity vailable LAKSHMIPATHY ., NARENDRANATH Admitting Charity vailable LAKSHMIPATHY ., NARENDRANATH Attending Charity vailable [facility] Primary Care Unavailable LUÍS, HEAVEN Admitting Unavailable HEAVEN STALEY Attending Unavailable [facility] Primary Care Unavailable DR SHAR VALENZUELA Consulting Unavailable LUÍS, HEAVEN Consulting Unavailable [facility] Primary Care Unavailable DAREK ., KEILY Admitting [...] sources) Codeine; Translations: [CODEINE] Drug Allergy 06-06-2014 [facility] Repository (1 source) Codeine Drug Allergy 06-06-2014 [facility] (2 sources) Lisinopril; Translations: [LISINOPRIL] Drug Allergy 10-19-2014 [facility] (1 source) pregabalin; Translations: [PREGABALIN] Drug Allergy [...] 30 tablet 1 06/08/2023 Active lactobacillus acidophilus [id number] unt oral capsule (1 source) take 1 [...] Indications: Chronic systolic CHF (congestive heart failure) ([facility]) Take 1 tablet (25 mg total) by [...] 10-11-2020 Episodic Other aftercare (1 source) Other prison (current) drug therapy; Translations: [OTH [facility] CURRENT DRUG THERAPY] Onset: 05-19-2022 Episodic Other [...] Will try again on Wednesday morning. [facility] Documentationon 02-11-2024 Documentation [id number] Saul Gutiérrez 1945 F Date Provider Department Center 02/11/2024 ADELAIDA VALENCIA MAGNUS Gonzales Family History Problem Relation Age of Onset Heart failure Father Family Status - Relation Status Age at Father [facility] 36on 02-08-2024 36 Patient had her [...] Madden until 03/21. Please advise. Thanks. [facility] Telephoneon 02-08-2024 Telephone [id number] Saul Gutiérrez 1945 F Date Provider Department Center 02/08/2024 Jarrett-CARIDAD LOVE Family History Problem Relation Age of Onset Heart failure Father Family Status - Relation Status Age at Father [facility] Office Visiton 12-01-2023 Follow-up visit [id number] Saul Gutiérrez 1945 F Date Provider Department Center 12/01/2023 ADELAIDA VALENCIA MAGNUS Eugene Family History Problem Relation Age of Onset Heart failure Father Family Status - Relation Status Age at Father Level of Service:42403 OR POSTOP FOLLOW UP VISIT RELATED TO ORIGINAL PX [facility] HPon 11-01-2023 [facility] Electrophysiology Consult Note Reason for [...] GI bleed. She was previously seen by [facility] cardiology. She was initially seen by Dr. [...] on file Intimate Partner Violence: Unknown (07/23/2023) [place] Safety & Environment Fear of Current or [...] mg tab (more content not included)... [facility] NURSNOTEon 11-01-2023 NURSNOTE RN educated pt on d/ c instructions. RN encouraged pt to voice any questions or concerns. Pt verbalizes no questions or concerns at this time. [facility] Orders Onlyon 10-22-2023 Orders Only [id number] Saul Gutiérrez 1945 F Date Provider Department Center 10/22/2023 DEMOND RAMOS [facility] HeartVAS Family History Problem Relation Age of Onset Heart failure Father Family Status - Relation Status Age at Father [facility] Orders Onlyon 08-27-2023 Orders Only [id number] Saul Gutiérrez 1945 F Date Provider Department Center 08/27/2023 LEATHA BAHENA MAGNUS [facility] Family History Problem Relation Age of Onset Heart failure Father Family Status - Relation Status Age at Father [facility] Office Visiton 07-14-2023 Follow-up visit [id number] Saul Gutiérrez 1945 F Date Provider Department Center 07/14/2023 ADELAIDA VALENCIA MAGNUS [facility] Family History Problem Relation Age of Onset Heart failure Father Family Status - Relation Status Age at Father Level of Service:60154 OR POSTOP FOLLOW UP VISIT RELATED TO ORIGINAL PX [facility] HPon 07-05-2023 [facility] Electrophysiology Consult Note Reason for [...] GI bleed. She was previously seen by [facility] cardiology. She was initially seen by Dr. [...] we (more content not included)... Normal [facility] NURSNOTEon 07-05-2023 NURSNOTE RN educated pt on d/ c instructions. RN encouraged pt to voice any questions or concerns. Pt verbalizes no questions or concerns at this time. Pt was wheeled off of unit with all of belongings. Normal [facility] NURSNOTE CHG wipes and betadine nasal swabs completed. [facility] Orders Onlyon 07-05-2023 Orders Only [id number] Saul Gutiérrez 1945 Provider Department Center 07/05/2023 ELENA ATWOOD [facility] [place] HeartVAS Family History Problem Relation Age of Onset Heart failure Father Family Status - Relation Status Age at Father [facility] Office Visiton 05-18-2023 Follow-up visit [id number] Saul Gutiérrez 1945 Provider Department Center 05/18/2023 ROBERT GEE Family History Problem Relation Age of Onset Heart failure Father Family Status - Relation Status Age at Father Level of Service:36932 OR OFFICE/OUTPATIENT ESTABLISHED MOD MDM 30 MIN (GC) [facility] Office Visiton 03-23-2023 Follow-up visit [id number] Saul Gutiérrez 1945 Provider Department Center 03/23/2023 ROBERT GEE Family History Problem Relation Age of Onset Heart failure Father Family Status - Relation Status Age at Father Level of Service:79409 OR OFFICE/OUTPATIENT NEW MODERATE MDM 45-59 MINUTES [facility] INSULINon 09-23-2022 Insulin 7.9 uIU/mL Normal 2.6-24.9 [facility] Comment on above: Performed By: #### I NSULIN ####[facility] T[address] [place], [place] [address]HwViky Ravin vOi CBC AUTO DIFFon 09-22-2022 BASO # 0.0 103/ul Normal 0.0-0.1 [facility] Comment on above: Performed By: #### C BC ####[facility] [address] [place] [id number]. Ravin Dior Basophils/100 WBC (Bld) 0.4 % Normal 0.2-2.0 [facility] Comment on above: Performed By: #### C BC ####[facility] C[address] [place] [id number]. Ravin Dior EO # 0.6 103/ul Normal 0.0-0.7 [facility] Comment on above: Performed By: #### C BC ####[facility] [address] [place], [place] [address]Dr. Ravin Dior Eosinophils/100 WBC (Bld) 6.6 % Normal 0.9-7.0 [facility] Comment on above: Performed By: #### C BC ####[facility] Qnhs[address] [place], [place] [address]Dr. Ravin Dior Erythrocyte distribution width (RBC) [Ratio] 16.2 % Critically high 11.0-15.0 [facility] Comment on above: Performed By: #### C BC ####[facility] Bxlsxzpfbu[address] [place] [id number]. Ravin Dior Hematocrit (Bld) [Volume fraction] 43.3 % Normal 36.0-48.0 [facility] Comment on above: Performed By: #### C BC ####[facility] Aehmmwkgft64[address] [place] [id number]. Ravin Dior Hemoglobin (Bld) [Mass/Vol] 13.4 g/dL Normal 12.0-16.0 [facility] Comment on above: Performed By: #### C BC ####[facility] Uexzgt[address]ubt[address] [place] [id number]. Ravin Dior IG # 0.05 10e3/ul Critically high 0.00-0.[address] [facility] Comment on above: Performed By: #### C BC ####[facility] [address] [place], [place] [address]Dr. Ravin Dior IG % 0.5 % Normal 0.0-0.5 [facility] Comment on above: Performed By: #### C BC ####[facility] X[address]wjt[address] [place] [address]Dr. Ravin Ovi LYMPH # 2.1 103/ul Normal 1.2-3.8 [facility] Comment on above: Performed By: #### C BC ####[facility] Sivdlxcisd[address] [place] [address]Dr. Ravin Ovi Lymphocytes/100 WBC (Bld) 23.1 % Normal 20.5-60.0 [facility] Comment on above: Performed By: #### C BC ####[facility] Wnddxotbnp1389 [place] [id number]. Novalilliana Dior MANUAL DIFF REQ NO Normal [facility] Comment on above: Performed By: #### C BC ####[facility] Ffjceuhsgm[address] [place] [id number]. Ravin Ovi MCH (RBC) [Entitic mass] 29.5 pg Normal 26.7-34.0 [facility] Comment on above: Performed By: #### C BC ####[facility] Ncqrbck[address]c35[address] [place] [id number]. Ravin Dior MCHC (RBC) [Mass/Vol] 30.9 g/dL Normal 29.9-35.2 [facility] Comment on above: Performed By: #### C BC ####[facility] [address] [place] [address]Dr. Ravin Ovi MCV (RBC) [Entitic vol] 95.4 fL Normal 81.0-99.0 [facility] Comment on above: Performed By: #### C BC ####[facility] [address]rbyrh[address] [place] [id number]. Ravin Ovi MONO # 0.5 103/ul Normal 0.3-0.8 [facility] Comment on above: Performed By: #### C BC ####[facility] Vewvtdgrxj18[address] [place] [address]Dr. Ravin Ovi Monocytes/100 WBC (Bld) 5.8 % Normal 1.7-12.0 [facility] Comment on above: Performed By: #### C BC ####[facility] [address] [place], [place] [address]Oc. Ravin Dior NEUT # 5.8 103/ul Normal 1.4-6.5 [facility] Comment on above: Performed By: #### C BC ####[facility] [address]wr[address] [place] [id number]. Ravin Ovi Neutrophils/100 WBC (Bld) 63.6 % Normal 43.0-75.0 [facility] Comment on above: Performed By: #### C BC ####[facility] [address] [place] [id number]. Ravin Dior Platelet mean volume (Bld) [Entitic vol] 10.7 fL Normal 9.5-13.5 [facility] Comment on above: Performed By: #### C BC ####[facility] [address] [place] [id number]. Ravin Dior PLT 223 103/ul Normal 150-450 [facility] Comment on above: Performed By: #### C BC ####[facility] Is[address] [place] [id number]. Novalilliana Dior RBC 4.54 106/ul Normal 4.20-5.40 [facility] Comment on above: Performed By: #### C BC ####[facility] Udxloxbe[address] [place] [id number]. Ravin Ovi WBC 9.2 103/ul Normal 4.0-11.0 [facility] Comment on above: Performed By: #### C BC ####[facility] Ujswyyhibp[address] [place] [id number] Novalilliana Dior FREE THYROXINE INDEX T7on FTI 2.44 Normal 1.30-4.50 [facility] Comment on above: Performed By: #### C MP, T7, TSH, LIPID #### [facility] [address] [place], [place] [address] Dr. Ravin Dior T3U 33.0 % Normal 30.0-39.0 [facility] Comment on above: Performed By: #### C MP, T7, TSH, LIPID #### [facility] [address] [place] [id number] [address] Ravin Dior T4 [Mass/Vol] 7.40 ug/dL Normal 4.80-13.90 [facility] Comment on above: Performed By: #### C MP, T7, TSH, LIPID #### [facility] [address] [place], [place] [address] Dr. Ravin Dior GLYCOHEMOGLOBIN A1Con 2022 ADA RECOMMENDATION SEE BELOW Normal [facility] Comment on above: Result Comment: ADA RECOMMENDED LIMIT 4.0 - 6.0 ADA THERAPEUTIC TARGET < 7.0 ACTION SUGGESTED > 7.0 Performed By: #### A 1C ####[facility] [address] [place] [address]Dr. Ravin Dior Glucose [Mass/Vol] 105 mg/dL Normal [facility] Comment on above: Performed By: #### A 1C ####[facility] [address] [place] [address]Dr. Ravin Dior HbA1c (Bld) [Mass fraction] 5.3 % Normal 4.5-6.2 [facility] Comment on above: Performed By: #### A 1C ####[facility] [address] [place] [address]Dr. Ravin Dior IRONon 09-22-2022 Iron [Mass/Vol] 81.0 ug/dL Normal 50.0-170.0 [facility] Comment on above: Performed By: #### I SEAMUS ####[facility] [address] [place], [place] [address]DrViky Dior LIPID PROFILEon 09-22-2022 CHOL-HDL RATIO NORM SEE BELOW Normal [facility] Comment on above: Result Comment: 3.3 - 4.4 LOW RISK 4.4 - 7.1 AVERAGE RISK 7.1 - 11.0 MODERATE RISK >11.0 HIGH RISK Performed By: #### C MP, T7, TSH, LIPID ####[facility] [address] [place] [address]DrViky Dior Cholesterol [Mass/Vol] 159 mg/dL Normal <=200 [facility] Comment on above: Performed By: #### C MP, T7, TSH, LIPID ####[facility] Vbffeqtyat[address] [place] [id number]. Ravin Dior Cholesterol in HDL [Mass/Vol] 47 mg/dL Normal 40-60 [facility] Comment on above: Performed By: #### C MP, T7, TSH, LIPID ####[facility] [address]kg[address] [place] [id number]. Ravin Dior Cholesterol in LDL [Mass/Vol] 96.4 mg/dL Normal [facility] Comment on above: Performed By: #### C MP, T7, TSH, LIPID ####[facility] [address]fr[address]xcj[address] [place] [id number]. Ravin Dior Cholesterol.total/Cho lesterol in HDL [Mass ratio] 3.4 {ratio} Normal [facility] Comment on above: Performed By: #### C MP, T7, TSH, LIPID ####[facility] [address] [place] [address]Dr. Ravin Dior HDL NORMAL > or = 60 mg/dl - LO W CARDIOVASCULAR RISK <40 mg/dl - HIGH CARDIOVASCULAR RISK Normal [facility] Comment on above: Performed By: #### C MP, T7, TSH, LIPID ####[facility] [address] [place] [address]Dr. Ravin Dior LDL CALC NORMAL SEE BELOW Normal [facility] Comment on above: Result Comment: <100 mg/dl OPTIMAL 100 - 129 mg/dl NEAR OR ABOVE OPTIMAL 130 - 159 mg/dl BORDERLINE HIGH 160 - 189 mg/dl HIGH >190 mg/dl VERY HIGH Performed By: #### C MP, T7, TSH, LIPID ####[facility] [address] [place] [id number]. Ravin Dior Triglyceride [Mass/Vol] 78 mg/dL Normal <=150 [facility] Comment on above: Performed By: #### C MP, T7, TSH, LIPID ####[facility] [address] [place] [id number]. Ravin Dior VLDL CALC 15.6 mg/dL Normal [facility] Comment on above: Performed By: #### C MP, T7, TSH, LIPID ####[facility] [address] [place], [place] [address]Dr. Ravin Dior MG MAMM SCREEN 3D NIKOS CADon 09-22-2022 MG MAMM SCREEN 3D NIKOS CAD Patient: SAUL GUTIÉRREZ Exam Date: 09/22/2022 : 1945 Gender:F Ordering : HEAVEN STALEY [facility] Admission #: [id number] Family : Order #: [id number] CLICK HERE TO VIEW EXAM RADIOLOGY REPORT [...] Treatments None Family Cancers None LOCATION: [facility] BREAST COMPOSITION: Almost entirely fatty. FINDINGS: [...] Valenzuela M.D. on 09/22/2022 at 17:02 Normal [facility] PROF 14(COMP METB)on 09-22- 023 Albumin [Mass/Vol] 3.3 g/dL Critically low 3.4-5.0 [facility] Comment on above: Performed By: #### C MP, T7, TSH, LIPID #### [facility] [address] [place], [place] [address] Dr. Ravin Dior Albumin/Globulin [Mass ratio] 0.7 {ratio} Normal [facility] Comment on above: Performed By: #### C MP, T7, TSH, LIPID #### [facility] [address] [place] [address] [address] Ravin Dior ALP [Catalytic activity/Vol] 207 U/L Critically high 46-116 [facility] Comment on above: Performed By: #### C MP, T7, TSH, LIPID #### [facility] [address] [place] [address] [address] Ravin Dior ALT [Catalytic activity/Vol] 47 U/L Normal 14-59 [facility] Comment on above: Performed By: #### C MP, T7, TSH, LIPID #### [facility] [address] [place] [address] [address] Ravin Dior Anion gap [Moles/Vol] 11.5 mmol/L Normal [facility] Comment on above: Performed By: #### C MP, T7, TSH, LIPID #### [facility] [address] [place] [address] Dr. Ravin Dior AST [Catalytic activity/Vol] 35 U/L Normal 15-37 [facility] Comment on above: Performed By: #### C MP, T7, TSH, LIPID #### [facility] [address] [place] [address] [address] Ravin Dior Bilirubin [Mass/Vol] 0.6 mg/dL Normal 0.2-1.0 [facility] Comment on above: Performed By: #### C MP, T7, TSH, LIPID #### [facility] [address] [place] [address] [address] Ravin Dior Calcium [Mass/Vol] 9.2 mg/dL Normal 8.5-10.1 [facility] Comment on above: Performed By: #### C MP, T7, TSH, LIPID #### [facility] [address] [place] [address] [address] Ravin Dior Chloride [Moles/Vol] 109 mmol/L Critically high 98-107 [facility] Comment on above: Performed By: #### C MP, T7, TSH, LIPID #### [facility] [address] [place] [address] [address] Ravin Dior CO2 [Moles/Vol] 27.7 mmol/L Normal 21.0-32.0 [facility] Comment on above: Performed By: #### C MP, T7, TSH, LIPID #### [facility] [address] [place] [address] Dr. Ravin Dior Creatinine [Mass/Vol] 0.94 mg/dL Normal 0.55-1.02 [facility] Comment on above: Performed By: #### C MP, T7, TSH, LIPID #### [facility] [address] [place] [address] Dr. Ravin Dior EGFR-AF P[place] >60 Normal >=60 [facility] Comment on above: Performed By: #### C MP, T7, TSH, LIPID #### [facility] [address] [place] [address] Dr. Ravin Dior EGFR-NON AF [place] 58 mL/min/1.73m2 Critically low >=60 [facility] Comment on above: Performed By: #### C MP, T7, TSH, LIPID #### [facility] [address] [place] [address] Dr. Ravin Dior Globulin (S) [Mass/Vol] 4.7 g/dL Normal [facility] Comment on above: Performed By: #### C MP, T7, TSH, LIPID #### [facility] [address] [place] [address] Dr. Ravin Dior Glucose [Mass/Vol] 95 mg/dL Normal 74-106 [facility] Comment on above: Performed By: #### C MP, T7, TSH, LIPID #### [facility] [address] [place] [address] Dr. Ravin Dior Potassium [Moles/Vol] 4.2 mmol/L Normal 3.5-5.1 [facility] Comment on above: Performed By: #### C MP, T7, TSH, LIPID #### [facility] [address] [place] [address] Dr. Ravin Dior Protein [Mass/Vol] 8.0 g/dL Normal 6.4-8.2 [facility] Comment on above: Performed By: #### C MP, T7, TSH, LIPID #### [facility] [address] [place] [address] [address] Ravin Dior Sodium [Moles/Vol] 144 mmol/L Normal 136-145 [facility] Comment on above: Performed By: #### C MP, T7, TSH, LIPID #### [facility] [address] [place] [address] [address] Ravin Dior Urea nitrogen [Mass/Vol] 21.0 mg/dL Critically high 7.0-18.0 [facility] Comment on above: Performed By: #### C MP, T7, TSH, LIPID #### [facility] [address] [place] [address] [address] Ravin Dior Urea nitrogen/Creatinine [Mass ratio] 22.3 mg/mg Normal [facility] Comment on above: Performed By: #### C MP, T7, TSH, LIPID #### [facility] [address] [place] [address] [address] Ravin Dior TSHon 09-22-2022 TSH 2.085 uIU/mL Normal 0.358-3.740 [facility] Comment on above: Performed By: #### C MP, T7, TSH, LIPID #### [facility] [address] [place] [address] [address] ABD/PELVIS WO CONon [...] was used, including Automated Exposure Control. FINDINGS: Commissary Assistant: No pertinent findings, which are not already [...] the largest most superior hernia. Normal [facility] CBC AUTO DIFFon 05-17-2022 BASO # 0.0 103/ul Normal 0.0-0.1 [facility] Comment on above: Performed By: #### C BC ####[facility] [address] [place], [place] [address]XaViky Dior Basophils/100 WBC (Bld) 0.2 % Normal 0.2-2.0 [facility] Comment on above: Performed By: #### C BC ####[facility] [address] [place], [place] [address]BeViky Dior EO # 0.1 103/ul Normal 0.0-0.7 [facility] Comment on above: Performed By: #### C BC ####[facility] [address] [place] [address]Dr. Ravin Ovi Eosinophils/100 WBC (Bld) 1.4 % Normal 0.9-7.0 [facility] Comment on above: Performed By: #### C BC ####[facility] [address] [place], [place] [address]Dr. Ravin Dior Erythrocyte distribution width (RBC) [Ratio] 13.7 % Normal 11.0-15.0 [facility] Comment on above: Performed By: #### C BC ####[facility] [address] [place], [place] [address]Dr. Ravin Dior Hematocrit (Bld) [Volume fraction] 44.4 % Normal 36.0-48.0 [facility] Comment on above: Performed By: #### C BC ####[facility] [address] [place], [place] [address]Dr. Ravin Dior Hemoglobin (Bld) [Mass/Vol] 14.7 g/dL Normal 12.0-16.0 [facility] Comment on above: Performed By: #### C BC ####[facility] Ep[address]oreux[address] [place], [place] [address]Dr. Ravin Dior IG # 0.05 10e3/ul Critically high 0.00-0.[address] [facility] Comment on above: Performed By: #### C BC ####[facility] [address] [place], [place] [address]Dr. Ravin Dior IG % 0.5 % Normal 0.0-0.5 [facility] Comment on above: Performed By: #### C BC ####[facility] [address] [place], [place] [address]DrViky Dior LYMPH # 1.7 103/ul Normal 1.2-3.8 [facility] Comment on above: Performed By: #### C BC ####[facility] [address] [place], [place] [address]Dr. Ravin Dior Lymphocytes/100 WBC (Bld) 17.1 % Critically low 20.5-60.0 [facility] Comment on above: Performed By: #### C BC ####[facility] [address] [place] [address]DrViky Dior MANUAL DIFF REQ NO Normal [facility] Comment on above: Performed By: #### C BC ####[facility] Qrx[address]jksp[address] [place] [address]Dr. Ravin Dior MCH (RBC) [Entitic mass] 30.7 pg Normal 26.7-34.0 [facility] Comment on above: Performed By: #### C BC ####[facility] [address] [place], [place] [address]DrViky Dior MCHC (RBC) [Mass/Vol] 33.1 g/dL Normal 29.9-35.2 [facility] Comment on above: Performed By: #### C BC ####[facility] [address]ids[address] [place], [place] [address]DrViky Dior MCV (RBC) [Entitic vol] 92.7 fL Normal 81.0-99.0 [facility] Comment on above: Performed By: #### C BC ####[facility] [address] [place], [place] [address]DrViky Dior MONO # 0.6 103/ul Normal 0.3-0.8 [facility] Comment on above: Performed By: #### C BC ####[facility] [address] [place], [place] [address]DrViky Dior Monocytes/100 WBC (Bld) 5.7 % Normal 1.7-12.0 [facility] Comment on above: Performed By: #### C BC ####[facility] [address] [place], [place] [address]DrViky Dior NEUT # 7.7 103/ul Critically high 1.4-6.5 [facility] Comment on above: Performed By: #### C BC ####[facility] L[address] [place], [place] [address]DrViky Dior Neutrophils/100 WBC (Bld) 75.1 % Critically high 43.0-75.0 [facility] Comment on above: Performed By: #### C BC ####[facility] [address] [address]DrViky Dior Platelet mean volume (Bld) [Entitic vol] 10.4 fL Normal 9.5-13.5 [facility] Comment on above: Performed By: #### C BC ####[facility] Nivtrs[address] [place], [place] [address]Dr. Ravin Dior PLT 294 103/ul Normal 150-450 [facility] Comment on above: Performed By: #### C BC ####[facility] Euekej[address] [place], [place] [address]Dr. Ravin Dior RBC 4.79 106/ul Normal 4.20-5.40 [facility] Comment on above: Performed By: #### C BC ####[facility] Q[address] [place], [place] [address]DrViky Dior WBC 10.2 103/ul Normal 4.0-11.0 [facility] Comment on above: Performed By: #### C BC ####[facility] I[address] [place], [place] [address]Dr. Ravin Dior ER URINE PROFILEon 2 Bilirubin Ql (U) Negative Normal NEGATIVE [facility] Comment on above: Performed By: #### DENY KAUFFMANRO #### [facility] [address] [place] [address] Dr. Ravin Dior Clarity (U) CLEAR Normal CLEAR [facility] Comment on above: Performed By: #### DENY KAUFFMANRO #### [facility] [address] [place] [address] Dr. Ravin Dior Color (U) LT. YELLOW Normal YELLOW [facility] Comment on above: Performed By: #### JAZ KAUFFMANICRO #### [facility] [address] [place] [address] Dr. Ravin Dior ERUAHD A micrscopic examination will be performed if indicated. Normal [facility] Comment on above: Performed By: #### DENY KAUFFMANRO #### [facility] [address] [place] [address] Dr. Ravin Dior Glucose Ql (U) Negative Normal NEGATIVE [facility] Comment on above: Performed By: #### DENY KAUFFMANRO #### [facility] [address] [place] [address] Dr. Ravin Dior Hemoglobin Ql (U) Negative Normal NEGATIVE [facility] Comment on above: Performed By: #### Tammy SOUTH UMICRO #### [facility] [address] [place] [address] Dr. Ravin Dior Ketones Ql (U) TRACE Abnormal NEGATIVE [facility] Comment on above: Performed By: #### Tammy SOUTH UMICRO #### [facility] [address] [place] [address] Dr. Ravin Dior LEUKOCYTES SMALL Abnormal NEGATIVE [facility] Comment on above: Performed By: #### DENY KAUFFMANRO #### [facility] [address] [place] [address] Dr. Ravin Dior Nitrite Ql (U) Negative Normal NEGATIVE [facility] Comment on above: Performed By: #### DENY KAUFFMANRO #### [facility] [address] [place] [address] Dr. Ravin Dior pH (U) 6.0 [pH] Normal 5-9 [facility] Comment on above: Performed By: #### DENY KAUFFMANRO #### [facility] [address] [place] [address] Dr. Ravin Dior SPEC GRAVITY 1.010 Normal 1.005-<=1.025 [facility] Comment on above: Performed By: #### DENY KAUFFMANRO #### [facility] [address] [place] [address] Dr. Ravin Dior UA PROTEIN Negative Normal NEGATIVE/ TRACE [facility] Comment on above: Performed By: #### DENY KAUFFMANRO #### [facility] [address] [place] [address] Dr. Ravin Dior UR MICRO IND INDICATED Normal [facility] Comment on above: Performed By: #### E JAZ SOUTHICRO #### [facility] [address] [address] [address] Ravin Dior Urobilinogen Qn (U) 0.2 {Chandler'U}/dL Normal 0.2 - 1. 0 [facility] Comment on above: Performed By: #### E DENY SOUTHRO #### [facility] [address] [address] [address] Ravin Dior LACTATE/LACTIC ACIDon 2021 Lactate [Moles/Vol] 1.3 mmol/L Normal 0.4-1.9 [facility] Comment on above: Performed By: #### L ACT ####[facility] [address] [address]Dr. Ravin Dior LIPASEon 05-17-2022 Lipase [Catalytic activity/Vol] 63.0 U/L Critically low 73.0-393.0 [facility] Comment on above: Performed By: #### C MP, LIPA #### [facility] [address] [address] [address] Ravin Dior PROF 14(COMP METB)on 022 Albumin [Mass/Vol] 3.4 g/dL Normal 3.4-5.0 [facility] Comment on above: Performed By: #### C MP, LIPA #### [facility] [address] [place] [address] Dr. Ravin Dior Albumin/Globulin [Mass ratio] 0.8 {ratio} Normal [facility] Comment on above: Performed By: #### C MP, LIPA #### [facility] [address] [address] [address] Ravin Dior ALP [Catalytic activity/Vol] 143 U/L Critically high 46-116 [facility] Comment on above: Performed By: #### C MP, LIPA #### [facility] [address] [address] [address] Ravin Dior ALT [Catalytic activity/Vol] 29 U/L Normal 14-59 [facility] Comment on above: Performed By: #### C MP, LIPA #### [facility] [address] [address] [address] Ravin Dior Anion gap [Moles/Vol] 7.6 mmol/L Normal [facility] Comment on above: Performed By: #### C MP, LIPA #### [facility] [address] [place] [address] Dr. Ravin Dior AST [Catalytic activity/Vol] 39 U/L Critically high 15-37 [facility] Comment on above: Performed By: #### C MP, LIPA #### [facility] [address] [place] [address] Dr. Ravin Dior Bilirubin [Mass/Vol] 0.7 mg/dL Normal 0.2-1.0 [facility] Comment on above: Performed By: #### C MP, LIPA #### [facility] [address] [place] [address] Dr. Ravin Dior Calcium [Mass/Vol] 9.1 mg/dL Normal 8.5-10.1 [facility] Comment on above: Performed By: #### C MP, LIPA #### [facility] [address] [place] [address] Dr. Ravin Dior Chloride [Moles/Vol] 102 mmol/L Normal 98-107 [facility] Comment on above: Performed By: #### C MP, LIPA #### [facility] [address] [place] [address] Dr. Ravin Dior CO2 [Moles/Vol] 31.1 mmol/L Normal 21.0-32.0 [facility] Comment on above: Performed By: #### C MP, LIPA #### [facility] [address] [place] [address] Dr. Ravin Dior Creatinine [Mass/Vol] 0.88 mg/dL Normal 0.55-1.02 [facility] Comment on above: Performed By: #### C MP, LIPA #### [facility] [address] [place] [address] Dr. Ravin Dior EGFR-AF [place] >60 Normal >=60 [facility] Comment on above: Performed By: #### C MP, LIPA #### [facility] [address] [place] [address] Dr. Ravin Dior EGFR-NON AF [place] >60 Normal >=60 [facility] Comment on above: Performed By: #### C MP, LIPA #### [facility] [address] [address] [address] Ravin Dior Globulin (S) [Mass/Vol] 4.5 g/dL Normal [facility] Comment on above: Performed By: #### C MP, LIPA #### [facility] [address] [place] [address] Dr. Ravin Dior Glucose [Mass/Vol] 100 mg/dL Normal 74-106 [facility] Comment on above: Performed By: #### C MP, LIPA #### [facility] [address] [place] [address] Dr. Ravin Dior Potassium [Moles/Vol] 3.7 mmol/L Normal 3.5-5.1 [facility] Comment on above: Performed By: #### C MP, LIPA #### [facility] [address] [place] [address] Dr. Ravin Dior Protein [Mass/Vol] 7.9 g/dL Normal 6.4-8.2 [facility] Comment on above: Performed By: #### C MP, LIPA #### [facility] [address] [place] [address] Dr. Ravin Dior Sodium [Moles/Vol] 137 mmol/L Normal 136-145 [facility] Comment on above: Performed By: #### C MP, LIPA #### [facility] [address] [place] [address] Dr. Ravin Dior Urea nitrogen [Mass/Vol] 12.0 mg/dL Normal 7.0-18.0 [facility] Comment on above: Performed By: #### C MP, LIPA #### [facility] [address] [place] [address] Dr. Ravin Dior Urea nitrogen/Creatinine [Mass ratio] 13.6 mg/mg Normal [facility] Comment on above: Performed By: #### C MP LIPA #### [facility] [address] [place] [address] Dr. Ravin Dior URINE MICROSCOPIC ONLYon BACTERIA NONE SEEN Normal NONE SEEN [facility] Comment on above: Performed By: #### E RUR, UMICRO #### [facility] [address] [place] [address] Dr. Ravin Dior Bacteria identified Cx Nom (U) NOT INDICATED Normal [facility] Comment on above: Performed By: #### E RUR, UMICRO #### [facility] [address] [place] [address] Dr. Ravin Dior CAST NONE SEEN Normal NONE SEEN [facility] Comment on above: Performed By: #### E RUR, UMICRO #### [facility] [address] [place] [address] Dr. Ravin Dior Crystals LM Nom (Urine sed) NONE SEEN Normal NONE SEEN [facility] Comment on above: Performed By: #### E RUR, UMICRO #### [facility] [address] [place] [address] Dr. Ravin Dior Epithelial cells LM Ql (Urine sed) FEW Abnormal NONE SEEN /RARE [facility] Comment on above: Performed By: #### E RUR, UMICRO #### [facility] [address] [place] [address] Dr. Ravin Dior MUCOUS NONE SEEN Normal NONE SEEN [facility] Comment on above: Performed By: #### E RUR, UMICRO #### [facility] [address] [place] [address] Dr. Ravin Dior RBC NONE SEEN Abnormal 0-2 [facility] Comment on above: Performed By: #### E RUR, UMICRO #### [facility] [address] [place] [address] Dr. Ravin Dior WBC 0-2 Abnormal NONE SEEN [facility] Comment on above: Performed By: #### E RUR, UMICRO #### [facility] [address] [address] [address] Ravin Dior Ambulatory Clinical Summaryo n 07-24-2020 Ambulatory Clinical Summary {[id number] Normal [facility] G[facility]ology Office/Clin ic Noteon 07-24-2020 Gastroenterology Office/Clinic [...] course, # 28 cap(s), Refills(s) 0, Pharmacy: [facility]/pharmacy #[id number], 165, cm, 07/24/20 12:03:00 EST, Height/Length Dosing, 95.9, kg, 07/24/20 12:03:00 EST, Weight Dosing metronidazole, 250 mg = 1 tab(s), Oral, TID, X 7 day(s), # 21 tab(s), Refills(s) 0, Pharmacy: [facility]/pharmacy #[id number], 165, cm, 07/24/20 12:03:00 EST, Height/Length [...] water, # 160 cap(s), Refills(s) 1, Pharmacy: [facility]/pharmacy #[id number], 165, cm, 07/24/20 12:03:00 EST, Height/Length Dosing, 95.9, kg, 07/24/20 12:03:... Orders: pantoprazole, 40 mg = 2 tab(s), Oral, Daily, X 90 day(s), # 180 tab(s), Refills(s) 3, Pharmacy: [facility]/pharmacy #[id number], 165, cm, 07/24/20 12:03:00 EST, Height/Length Dosing, 95.9, kg, 07/24/20 12:03:00 EST, Weight Dosing Follow-up With When Contact Information Isabelle Ramirez MD In 12 months [address] [place] [address]- Additional Instructions: Problem List/Past Medical [...] 12/16/2018 Exercise - Occasional exercise, 12/16/2018 Other Mbpxhlpz-3-7 cups blair;y, 12/16/2018 Substance Abuse - Denies Substance Abuse, 12/16/2018 Tobacco Never (less than 100 in lifetime) Tobacco Use:., 07/24/2020 Never (less than 100 in lifetime) Tobacco Use:. Never Smokeless Tobacco Use:., 02/01/2019 [facility] Comment on above: Result Comment: Elec tronically Signed By: Taylor Mccauley MD, Isabelle\.bernie\Date and Time Signed: 07/24/20 13:13 EST Auth for Release of Medical Recordson 02-09-2020 Auth for Release of Medical Records [id number]:[id number] [facility] January 24, 2020 SAUL GUTIÉRREZ [address] [place] [address] SAUL GUTIÉRREZ 1945 Dear Saul, This is a reminder that you are due for an appointment with Dr. Garland or Dr. Mccauley. Please call [facility] at [phone] to schedule an appointment at your earliest convenience. Thank you, [facility] Encounters Encounter Date Encounter Type Care Provider Facility Start: 02-08-2024 End: 02-08-2024 ambulatory [facility] Start: 01-18-2024 ambulatory [facility] Start: 01-17-2024 End: 01-17-2024 ambulatory CARIDAD GARNER Not Available Start: 01-11-2024 End: 01-11-2024 ambulatory SANDIE PAGE Not Available Start: 01-05-2024 ambulatory [facility] Start: 12-20-2023 End: 12-20-2023 ambulatory SANDIE PAGE Not Available Start: 12-16-2023 ambulatory [facility] Start: 12-01-2023 End: 12-01-2023 ambulatory ADELAIDA RIZO [facility] Start: 11-25-2023 ambulatory SHAYY ORTIZ [facility] Start: 11-24-2023 ambulatory [facility] Start: 11-23-2023 ambulatory [facility] Start: 11-23-2023 Encounter for preprocedural cardiovascular examination [facility] Start: 11-11-2023 End: 11-11-2023 ambulatory SHAR GARCÍA Not Available Start: 11-01-2023 ambulatory [facility] Start: 11-01-2023 End: 11-01-2023 ambulatory [facility] Start: 08-10-2023 End: 08-10-2023 ambulatory [facility] Start: 07-14-2023 End: 07-14-2023 ambulatory ADELAIDA RIZO [facility] Start: 07-05-2023 ambulatory [facility] Start: 07-05-2023 End: 07-05-2023 ambulatory [facility] Start: 06-05-2023 Refill Mac Lujan sser STRIPPING MACHINE OPERATOR-MDS COORDINATOR Work Phone: [facility] Comment on above: Med Refill Start: 05-18-2023 End: 05-18-2023 ambulatory [facility] Start: 03-23-2023 End: 03-26-2023 ambulatory [facility] Start: 09-22-2022 End: 09-23-2022 ambulatory HEAVEN STALEY [...] Adult BMI Screening Adult BMI Screen ing [facility] Start: 08-25-2023 Tobacco Screening Tobacco Screening [facility] Start: 01-29-2023 COVID-19 Vaccine ( season) COVID-19 Vaccine ( season) [facility] Start: 01-29-2023 Influenza vaccination Influenza Vacc ine [facility] Start: 11-03-2022 ambulatory Ambulatory Facility:H 1 Start: 2010 Fall Risk Screening Fall Risk Screen ing [facility] Start: 1995 Administration of varicella zoster vaccine Zoster (Shingles) Vaccine (1 of 2) [facility] Start: 1964 DTaP,Tdap and Td Vac cines (1 - Tdap) DTaP,Tdap and Td Vaccines (1 - Tdap) [facility] Start: 1963 Adult BMI Follow Up Plan Adult BMI Follow Up Plan [facility] Start: 1957 Depression Screening Depression Scre laura [facility] Start: 1945 Medicare Annual Well ness Visit Medicare Annual Wellness Visit [facility] End: 06-08-2024 Basic metabolic 2000 panel - Serum or Plasma Basic Metabolic Panel Lab Routine Essential hypertension 1 Occurrences starting 06/08/2023 until 06/08/2024 [employer] Work Phone: Comment on above: 1 Occurrences starti ng 06/08/2023 until 06/08/2024 Immunizations Immunization Date Immunization Notes Care Provider Tutu rehman 05-08-2021 influenza virus vaccine, unspecified formulation Mac Erwin STRIPPING MACHINE OPERATOR-MDS COORDINATOR [facility] Payers Date Payer Category Payer Medicare [employer] MEDICARE [place] [id number] 2013-Present [phone] [address] [address] [place] [address] [id number] 1959 Medicare [id number] 1945 Unknown [id number] 1945 Unknown [id number] 1945 Unknown [id number] 1945 Unknown [id number] 1945 Unknown [id number] 1945 Unknown [id number] 1945 Unknown [id number] 1945 Unknown [id number] [id number] 9 1945 Unknown [id number] [id number] 9 1945 Unknown [id number] [id number] 9 1945 Unknown [id number] 9 Social History Date Type Detail Facility Start: 05-26-2022 Tobacco smoking stat [facility] Never smoked tobacco [facility] Start: 05-26-2022 Tobacco use and exposure Smoke less tobacco non-user [facility] Start: 08-24-2022 Alcohol intake Current non-dr communications lead of alcohol (finding) [facility] Start: 07-04-2020 End: 08-24-2022 History of Social function [facility] Start: 07-04-2020 End: 08-24-2022 Tobacco use panel [facility] Housing Instability Unknown [facility] Start: 1945 Sex Assigned At Not on file [facility] Medical Equipment Procedure Code Equipment Code Equipment Origin al Text Equipment Identifier Dates Mesh [id number] 3d Rect Plstr Clgn Symbotex 2 Sd Comp Mfl Babsr Rpl [id number] - Sna - [id number] Start: 06-30-2022 Dev Clsr 30fr Watchman 30mm - [id number] Start: 10-28-2018 Clinical Notes 12-24-2021 to 02-14-2024 Note Date & Type Note Facility 02-14-2024 Note [facility] 02-11-2024 Note RCRI= 2 points Class III Risk 10.1 % 30-day risk of , CA, or cardiac arrest From a cardiac perspective pt may proceed with planned surgery, she is a moderate risk for a moderate risk orthopedic surgery. She may hold Aspirin 5-7 days prior and resume post op. Please monitor hemodynamics carefully and prevent any major fluid shifts. Adelaida Darrius [facility] Cardiology Available 7a-5pm via [employer] Chat Pager [phone] [facility] 12-01-2023 Note Currently pt is doin g quite well s/p recent AV node ablation Remains V paced with BI-V AICd [facility] 12-01-2023 Note [facility] CARDIOLOGY PROGR [...] [facility] She was initially seen [...] PROCEDURE: 11/01/2023 PERFORMING PHYSICIAN: Dr. Robert Madden COSTUME TECHNICIAN: TOÑA CONSENT: Patient NAME OF THE PROCEDURE: [...] GI bleed. She was previously seen by [facility] cardiology. She was initially seen by Dr. [...] Cardiac Electrophysiology. [facility] 11-01-2023 Note Patient: Saul mcghee Procedure Information Date/Time: 11/01/23829 Procedure: AV node ablation Location: [facility] FILL MANAGER 1 EP / [facility] HV VASCULAR LAB (Cath) Providers: [...] Additional Equipment Requests [facility] 11-01-2023 Note [place] Electrophysiology Consult Note Reason for visit: Afib [...] [facility]. She was initially seen [...] on file Intimate Partner Violence: Unknown (07/23/2023) [place] Safety & Environment Fear of Current or [...] not included)... [facility] 08-27-2023 Note ca [facility] 07-14-2023 Note stable [facility] 07-14-2023 Note Patient here for wou [...] GI bleed. She was previously seen by [facility] cardiology. She was initially seen by Dr. [...] + ecchymosis noted [facility] 07-14-2023 Note -[id number] 5 for age x2, gender, hypertension, CHF, on aspirin s/p watchmen Continue meds as prescribed [facility] 07-05-2023 Note CHEMICAL INSPECTOR-D IMPLANT PROCED URE NOTE DATE OF PROCEDURE: 07/05/2023 PERFORMING PHYSICIAN: Dr. Robert Madden COSTUME TECHNICIAN: TOÑA CONSENT: Patient LOCATION: [facility] PROCEDURE PERFORMED: 1. Implantation of Biventricular ICD ([employer]). 2. U/S venous access 3. Coronary [...] [facility]. She was initially seen [...] occasions using seldinger technique using a 5 Armenian micropunture needle and exchanged for 0.034 wire. I decided to proceed with opening of the pocket. Localinfiltration of 1% Lidocaine was performed and an incision was created in the left upper chest. Dissection was then performed using cautery down. An active fixation [employer] ICD lead was then delivered through the 8F sheath to the right ventricle. After confirmation of lead position on orthogonal views (BECK and [place]) to confirm position in the septal aspect, [...] The leads were then attached to a [employer] CHEMICAL INSPECTOR-D device with atrial ort capped and the [...] not included)... [facility] 07-05-2023 Note Patient: Saul mcghee Procedure Information Date/Time: 07/05/23 1400 Procedure: Implant ICD - biventricular Location: [facility] FILL MANAGER 1 / [facility] HV VASCULAR LAB (Cath) Providers: Robert Madden MD Clinical information reviewed: Allergies Meds Physical Exam Airway Mallampati: II TM distance: >3 FB Neck ROM: full Cardiovascular Dental Pulmonary Abdominal Anesthesia Plan ASA 2 CSE Anesthetic plan and risks discussed with patient. Use of blood products discussed with patient who. Additional Equipment Requests [facility] 05-18-2023 Note MA Electrophysiology Consult Note Reason for visit: Afib [...] GI bleed. She was previously seen by [facility] cardiology. She was initially seen by Dr. [...] content not included)... [facility] 03-23-2023 Note MA Electrophysiology Consult Note Reason for visit: Afib HPI: Saul Gutiérrez is a 77 y.o. year old with past medical history of HFrEF with EF of 35% as per an echocardiogram in May 2022, nonobstructive coronary artery disease as per cath on 01/05/2023 who previously had undergone a Watchman procedure in 2019 due to GI bleed. She was previously seen by [facility] cardiology. She was initially seen by Dr. [...] no (more content not included)... [facility] 07-23-2022 Note PAIN MANAGEMENT CONS [...] months' time or sooner if needed. [facility] 03-26-2022 Note CONSULTATION CONSULTATION DATE: 03/26/2022 [...] agrees with the plan of care. [facility] 12-24-2021 Note CONSULTATION PROCEDURE DATE: 12/24/2021 [...] the procedure well with no complications. [facility] 12-24-2021 Note CONSULTATION CONSULTATION DATE: 12/24/2021 [...] three months' time, unless otherwise indicated. [facility] Evaluation note Diagnosis Essential hypertension- Primary Unspecified essential hypertension documented [facility] this encounter [facility] filed[facility] Summary Purpose Family History No Family History Records FoundNo Family History Records FoundNo Family History Records FoundNo Family History Records Found Advance Directives No Advanced Directives Records FoundNo Advanced Directives Records FoundNo Advanced Directives Records FoundNo Advanced Directives Records Found Additional Source Comments INFORMATION SOURCE (unrecogn ized section and content) DATE CREATED AUTHOR 07/25/2020 Travis Cordova [facility] DATE CREATED AUTHOR AUTHOR'S ORGANIZ ATION [facility]/12/2022 [facility] DATE CREATED AUTHOR AUTHOR'S ORGANIZ ATION 01/17/2024 [facility] EPIC DATE CREATED AUTHOR AUTHOR'S ORGANIZ ATION 02/16/2024 [facility] Reason for Visit (unrecogniz ed section and content) Reason Comments Med Refill Care Teams (unrecognized sec tion and content) Front Desk Manager Relationship Specialty Start Date End Date Heaven Staley, STRIPPING MACHINE OPERATOR-MDS COORDINATOR [address] [address] PCP - General Family Medicine 10/30/21 FOR [...] BE BASED ON THE PRIMARY CLINICAL RECORDS. [employer] provides no warranty or guarantee of the accuracy or completeness of information in this document.
--- NOTE | 2024-02-18 10:35 | XR_ITS ---
The [address] [address] Patient Name: SAUL GUTIÉRREZ MRN: [id number] date: 1945 Sex: F Assigned Patient Location: LAB Current Patient Location: LAB Accession/Order Number: [id number] Exam Date: 02/18/2024 10:23 Report Date: 02/21/2024 08:30 At the request of: RAUDEL SANCHEZ Procedure: XR chest 2V EXAM: XR chest 2V HISTORY: Lumbar pain. M54.50. COMPARISON: 07/06/2023. TECHNIQUE: 2 views. FINDINGS: Redemonstration of cardiac pacemaker. Lungs are clear. No focal infiltrates are seen. Continued mild cardiomegaly. XR/XR chest 2V IMPRESSION: Stable examination. No acute findings. Electronically authenticated by: Jean-Pierre WEINER Date: 02/21/2024 08:30
[2024-02-18 10:58] LABS: Basophils Percent Auto 0.4 % (0.2-2.0); Eosinophils Absolute Auto 0.3 10^3/uL (0.0-0.7); Eosinophils Percent Auto 3.5 % (0.9-7.0); Hematocrit 36.1 % (36.0-48.0); Immature Granulocytes Abs Auto 0.03 10^3/uL (0.00-0.03); Immature Granulocytes Pct Auto 0.3 % (0.0-0.5); Lymphocytes Absolute Auto 2.3 10^3/uL (1.2-3.8); Lymphocytes Percent Auto 25.6 % (20.5-60.0); Mean Corpuscular HGB Conc 30.5 g/dL (29.9-35.2); Mean Corpuscular Hemoglobin 31.3 pg (26.7-34.0); Mean Corpuscular Volume 102.8 fL (81.0-99.0); Mean Platelet Volume 10.5 fL (9.5-13.5); Monocytes Absolute Auto 0.5 10^3/uL (0.3-0.8); Monocytes Percent Auto 5.7 % (1.7-12.0); Neutrophils Absolute Auto 5.8 10^3/uL (1.4-6.5); Neutrophils Percent Auto 64.5 % (43.0-75.0); Platelet Count 213 10^3/uL (150-450); Red Blood Count 3.51 10^6/uL (4.20-5.40); Red Cell Distribution Width 13.9 % (11.0-15.0); White Blood Count 9.1 10^3/uL (4.0-11.0)
[2024-02-18 11:44] LABS: Partial Thromboplastin Time 25.6 sec (22.3-36.2); Prothrombin Time 10.6 sec (9.0-11.6)
[2024-02-18 13:14] LABS: Anion Gap 12.5; BUN Creatinine Ratio 35.8; Calcium 9.3 mg/dL (8.5-10.1); Carbon Dioxide 25.3 mmol/L (21.0-32.0); Chloride 110 mmol/L (98-107); Estimated GFR (African America 37 (>=60); Estimated GFR (Non-African Ame 31 (>=60); Glucose 98 mg/dL (74-106); Potassium 5.8 mmol/L (3.5-5.1); Sodium 142 mmol/L (136-145)
== END 2024-02-18 10:00 | disposition home or self-care (01) ==
LOC: LAB 10:05
PROVIDERS: PCP Nurse Practitioner Family; Visit Provider Physician Assistant
DX: Z01.812 Encounter for preprocedural laboratory examination (principal); M54.50 Low back pain, unspecified; I10 Essential (primary) hypertension
CPT/HCPCS: 36415; 71046; 80048; 85025; 85610; 85730; 87081; 93005

== ENCOUNTER 2024-02-22 08:20 | Outpatient (OUT) | payer MEDICARE, SELFPAY ==
--- OUTSIDE RECORDS SUMMARY | 2024-02-22 08:31 | XMS_ITS | CCD ---
Author Organization [facility] Care Team Providers Care Sales Branch Manager Name Role Phone JOHNSON ., DR [...] Care Unavailable RODRIGUEZ ., SABRINA Consulting Unavailable [facility] Primary Care Unavailable LAKSHMIPATHY ., NARENDRANATH Admitting Charity vailable LAKSHMIPATHY ., NARENDRANATH Attending Charity vailable LAKSHMIPATHY ., NARENDRANATH Consulting Charity vailable LAKSHMIPATHY ., NARENDRANATH Admitting Charity vailable LAKSHMIPATHY ., NARENDRANATH Attending Charity vailable [facility] Primary Care Unavailable LUÍS, HEAVEN Admitting Unavailable HEAVEN STALEY Attending Unavailable [facility] Care Unavailable DR SHAR VALENZUELA Consulting Unavailable LUÍS, HEAVEN Consulting Unavailable [facility] Primary Care Unavailable DAREK ., KEILY [...] sources) Codeine; Translations: [CODEINE] Drug Allergy 06-06-2014 [facility] Repository (1 source) Codeine Drug Allergy 06-06-2014 [facility] (2 sources) Lisinopril; Translations: [LISINOPRIL] Drug Allergy 10-19-2014 [facility] (1 source) pregabalin; Translations: [PREGABALIN] Drug Allergy 12-01-2023 [facility] Repository Medications Current Medications Medication Drug [...] 30 tablet 1 06/08/2023 Active lactobacillus acidophilus [id number] unt oral capsule (1 source) take 1 [...] Indications: Chronic systolic CHF (congestive heart failure) ([facility]) Take 1 tablet (25 mg total) by [...] Other mcfp (current) drug therapy; Translations: [OTH SHELTER CURRENT DRUG THERAPY] Onset: 05-19-2022 Episodic Other [...] up. Will try again on Wednesday morning. [facility] Documentationon 02-11-2024 Documentation [id number] Saul Gutiérrez 1945 F Date Provider Department Center 02/11/2024 ADELAIDA VALENCIA MAGNUS Gonzales Family History Problem Relation Age of Onset Heart failure Father Family Status - Relation Status Age at Father [facility] 36on 02-08-2024 36 Patient had her device [...] Dr. Madden until 03/21. Please advise. Thanks. [facility] Telephoneon 02-08-2024 Telephone [id number] Saul Gutiérrez 1945 F Date Provider Department Center 02/08/2024 Jarrett-CARIDAD LOVE Family History Problem Relation Age of Onset Heart failure Father Family Status - Relation Status Age at Father [facility] Office Visiton 12-01-2023 Follow-up visit [id number] Saul Gutiérrez 1945 F Date Provider Department Center 12/01/2023 ADELAIDA VALENCIA MAGNUS Eugene Family History Problem Relation Age of Onset Heart failure Father Family Status - Relation Status Age at Father Level of Service:89779 ID POSTOP FOLLOW UP VISIT RELATED TO ORIGINAL PX [facility] HPon 11-01-2023 [facility] Electrophysiology Consult Note Reason for visit: [...] GI bleed. She was previously seen by [facility] cardiology. She was initially seen by [...] on file Intimate Partner Violence: Unknown (07/23/2023) [place] Safety & Environment Fear of Current or [...] 50 mg tab (more content not included)... [facility] NURSNOTEon 11-01-2023 NURSNOTE RN educated pt on d/ c instructions. RN encouraged pt to voice any questions or concerns. Pt verbalizes no questions or concerns at this time. [facility] Orders Onlyon 10-22-2023 Orders Only [id number] Saul Gutiérrez 1945 F Date Provider Department Center 10/22/2023 DEMOND RAMOS [facility] [place] HeartVAS Family History Problem Relation Age of Onset Heart failure Father Family Status - Relation Status Age at Father [facility] Orders Onlyon 08-27-2023 Orders Only [id number] Saul Gutiérrez 1945 F Date Provider Department Center 08/27/2023 LEATHA BAHENA MAGNUS [facility] Family History Problem Relation Age of Onset Heart failure Father Family Status - Relation Status Age at Father [facility] Office Visiton 07-14-2023 Follow-up visit [id number] Saul Gutiérrez 1945 F Date Provider Department Center 07/14/2023 ADELAIDA VALENCIA MAGNUS [facility] Family History Problem Relation Age of Onset Heart failure Father Family Status - Relation Status Age at Father Level of Service:[id number] ID POSTOP FOLLOW UP VISIT RELATED TO ORIGINAL PX [facility] HPon 07-05-2023 [facility] Electrophysiology Consult Note Reason for visit: [...] GI bleed. She was previously seen by [facility] cardiology. She was initially seen by [...] well-nourished, we (more content not included)... Normal [facility] NURSNOTEon 07-05-2023 NURSNOTE RN educated pt on d/ c instructions. RN encouraged pt to voice any questions or concerns. Pt verbalizes no questions or concerns at this time. Pt was wheeled off of unit with all of belongings. Normal [facility] NURSNOTE CHG wipes and betadine nasal swabs completed. [facility] Orders Onlyon 07-05-2023 Orders Only [id number] Saul Gutiérrez 1945 Provider Department Center 07/05/2023 ELENA ATWOOD [facility] [place] HeartVAS Family History Problem Relation Age of Onset Heart failure Father Family Status - Relation Status Age at Father [facility] Office Visiton 05-18-2023 Follow-up visit [id number] Saul Gutiérrez 1945 Provider Department Center 05/18/2023 ROBERT GEE Family History Problem Relation Age of Onset Heart failure Father Family Status - Relation Status Age at Father Level of Service:[id number] ID OFFICE/OUTPATIENT ESTABLISHED MOD MDM 30 MIN (GC) [facility] Office Visiton 03-23-2023 Follow-up visit [id number] Saul Gutiérrez 1945 Provider Department Center 03/23/2023 ROBERT GEE Family History Problem Relation Age of Onset Heart failure Father Family Status - Relation Status Age at Father Level of Service:82286 ID OFFICE/OUTPATIENT NEW MODERATE MDM 45-59 MINUTES [facility] INSULINon 09-23-2022 Insulin 7.9 uIU/mL Normal 2.6-24.9 [facility] Comment on above: Performed By: #### I NSULIN ####[facility] [address] [place], [place] [address]HfViky Ravin Ovi CBC AUTO DIFFon 09-22-2022 BASO # 0.0 103/ul Normal 0.0-0.1 [facility] Comment on above: Performed By: #### C BC ####[facility] [address]sc[address]fm[address] [place] [id number]. Ravin Dior Basophils/100 WBC (Bld) 0.4 % Normal 0.2-2.0 [facility] Comment on above: Performed By: #### C BC ####[facility] Enlpcukpyp[address] [place] [id number]. Ravin Dior EO # 0.6 103/ul Normal 0.0-0.7 [facility] Comment on above: Performed By: #### C BC ####[facility] Gvcct[address] [place], [place] [address]Dr. Ravin Dior Eosinophils/100 WBC (Bld) 6.6 % Normal 0.9-7.0 [facility] Comment on above: Performed By: #### C BC ####[facility] Qrce[address] [place], [place] [address]Dr. Ravin Dior Erythrocyte distribution width (RBC) [Ratio] 16.2 % Critically high 11.0-15.0 [facility] Comment on above: Performed By: #### C BC ####[facility] Tdphuxankd[address] [place] [id number]. Ravin Dior Hematocrit (Bld) [Volume fraction] 43.3 % Normal 36.0-48.0 [facility] Comment on above: Performed By: #### C BC ####[facility] Dmfxfdhfvb[address] [place] [id number]. Ravin Dior Hemoglobin (Bld) [Mass/Vol] 13.4 g/dL Normal 12.0-16.0 [facility] Comment on above: Performed By: #### C BC ####[facility] H[address]spyxf[address] [place] [id number]. Ravin Dior IG # 0.05 10e3/ul Critically high 0.00-0.03 [facility] Comment on above: Performed By: #### C BC ####[facility] X[address] [place], [place] [address]Dr. Ravin Dior IG % 0.5 % Normal 0.0-0.5 [facility] Comment on above: Performed By: #### C BC ####[facility] [address]ugkbi[address]ru[address] [place] [id number]. Ravin Ovi LYMPH # 2.1 103/ul Normal 1.2-3.8 [facility] Comment on above: Performed By: #### C BC ####[facility] Mkfexdwpjx07[address] [place] [id number]. Ravin Ovi Lymphocytes/100 WBC (Bld) 23.1 % Normal 20.5-60.0 [facility] Comment on above: Performed By: #### C BC ####[facility] Tvfaicuobo[address] [place] [id number]. Novalilliana Dior MANUAL DIFF REQ NO Normal [facility] Comment on above: Performed By: #### C BC ####[facility] Ieiszooeea[address] [place] [id number]. Ravin Ovi MCH (RBC) [Entitic mass] 29.5 pg Normal 26.7-34.0 [facility] Comment on above: Performed By: #### C BC ####[facility] Abjeqikuda[address] [place] [id number]. Ravin Dior MCHC (RBC) [Mass/Vol] 30.9 g/dL Normal 29.9-35.2 [facility] Comment on above: Performed By: #### C BC ####[facility] [address]pfnfhfpdw[address] [place] [id number]. Ravin Ovi MCV (RBC) [Entitic vol] 95.4 fL Normal 81.0-99.0 [facility] Comment on above: Performed By: #### C BC ####[facility] Cktnfoqzmo[address] [place] [id number]. Ravin Ovi MONO # 0.5 103/ul Normal 0.3-0.8 [facility] Comment on above: Performed By: #### C BC ####[facility] Nqbiofhman[address] [place] [id number]. Ravin Ovi Monocytes/100 WBC (Bld) 5.8 % Normal 1.7-12.0 [facility] Comment on above: Performed By: #### C BC ####[facility] [address] [place], [place] [address]Bl. Ravin Dior NEUT # 5.8 103/ul Normal 1.4-6.5 [facility] Comment on above: Performed By: #### C BC ####[facility] [address]kgdgr[address] [place] [id number]. Ravin Ovi Neutrophils/100 WBC (Bld) 63.6 % Normal 43.0-75.0 [facility] Comment on above: Performed By: #### C BC ####[facility] Chve[address]rtv[address] [place] [id number]. Ravin Dior Platelet mean volume (Bld) [Entitic vol] 10.7 fL Normal 9.5-13.5 [facility] Comment on above: Performed By: #### C BC ####[facility] Yxpaxgrhvh[address] [place] [id number]. Ravin Dior PLT 223 103/ul Normal 150-450 [facility] Comment on above: Performed By: #### C BC ####[facility] Hgwdnczusz[address] [place] [id number]. Novalilliana Dior RBC 4.54 106/ul Normal 4.20-5.40 [facility] Comment on above: Performed By: #### C BC ####[facility] Xyadnscixm[address] [place] [id number]. Ravin Ovi WBC 9.2 103/ul Normal 4.0-11.0 [facility] Comment on above: Performed By: #### C BC ####[facility] [address]yqb[address]hewc[address] [place] [id number] Novalilliana Dior FREE THYROXINE INDEX T7on FTI 2.44 Normal 1.30-4.50 [facility] Comment on above: Performed By: #### C MP, T7, TSH, LIPID #### [facility] [address] [place], [place] [address] Dr. Ravin Dior T3U 33.0 % Normal 30.0-39.0 [facility] Comment on above: Performed By: #### C MP, T7, TSH, LIPID #### [facility] [address] [place] [id number] Ravin Dior T4 [Mass/Vol] 7.40 ug/dL Normal 4.80-13.90 [facility] Comment on above: Performed By: #### C MP, T7, TSH, LIPID #### [facility] [address] [place], [place] [address] Dr. Ravin Dior GLYCOHEMOGLOBIN A1Con 2022 ADA RECOMMENDATION SEE BELOW Normal [facility] Comment on above: Result Comment: ADA RECOMMENDED LIMIT 4.0 - 6.0 ADA THERAPEUTIC TARGET < 7.0 ACTION SUGGESTED > 7.0 Performed By: #### A 1C ####[facility] [address] [place] [address]Dr. Ravin Dior Glucose [Mass/Vol] 105 mg/dL Normal [facility] Comment on above: Performed By: #### A 1C ####[facility] [address]osxpss[address] [place] [address]Dr. Ravin Dior HbA1c (Bld) [Mass fraction] 5.3 % Normal 4.5-6.2 [facility] Comment on above: Performed By: #### A 1C ####[facility] [address] [place] [address]Dr. Ravin Dior IRONon 09-22-2022 Iron [Mass/Vol] 81.0 ug/dL Normal 50.0-170.0 [facility] Comment on above: Performed By: #### I SEAMUS ####[facility] [address] [place], [place] [address]DrViky Dior LIPID PROFILEon 09-22-2022 CHOL-HDL RATIO NORM SEE BELOW Normal [facility] Comment on above: Result Comment: 3.3 - 4.4 LOW RISK 4.4 - 7.1 AVERAGE RISK 7.1 - 11.0 MODERATE RISK >11.0 HIGH RISK Performed By: #### C MP, T7, TSH, LIPID ####[facility] [address]zhf[address] [place] [address]DrViky Dior Cholesterol [Mass/Vol] 159 mg/dL Normal <=200 [facility] Comment on above: Performed By: #### C MP, T7, TSH, LIPID ####[facility] [address]maiwcwx[address] [place] [id number]. Ravin Dior Cholesterol in HDL [Mass/Vol] 47 mg/dL Normal 40-60 [facility] Comment on above: Performed By: #### C MP, T7, TSH, LIPID ####[facility] [address]jtmh[address] [place] [id number]. Ravin Dior Cholesterol in LDL [Mass/Vol] 96.4 mg/dL Normal [facility] Comment on above: Performed By: #### C MP, T7, TSH, LIPID ####[facility] Sbuv[address]bsf[address] [place] [id number]. Ravin Dior Cholesterol.total/Cho lesterol in HDL [Mass ratio] 3.4 {ratio} Normal [facility] Comment on above: Performed By: #### C MP, T7, TSH, LIPID ####[facility] [address] [place] [address]Dr. Ravin Dior HDL NORMAL > or = 60 mg/dl - LO W CARDIOVASCULAR RISK <40 mg/dl - HIGH CARDIOVASCULAR RISK Normal [facility] Comment on above: Performed By: #### C MP, T7, TSH, LIPID ####[facility] [address] [place] [address]Dr. Ravin Dior LDL CALC NORMAL SEE BELOW Normal [facility] Comment on above: Result Comment: <100 mg/dl OPTIMAL 100 - 129 mg/dl NEAR OR ABOVE OPTIMAL 130 - 159 mg/dl BORDERLINE HIGH 160 - 189 mg/dl HIGH >190 mg/dl VERY HIGH Performed By: #### C MP, T7, TSH, LIPID ####[facility] [address]chze[address] [place] [id number]. Ravin Dior Triglyceride [Mass/Vol] 78 mg/dL Normal <=150 [facility] Comment on above: Performed By: #### C MP, T7, TSH, LIPID ####[facility] [address]lieph[address] [place] [id number]. Ravin Dior VLDL CALC 15.6 mg/dL Normal [facility] Comment on above: Performed By: #### C MP, T7, TSH, LIPID ####[facility] Z[address] [place], [place] [address]JwDr. Ravin Dior MG MAMM SCREEN 3D NIKOS CADon 09-22-2022 MG MAMM SCREEN 3D NIKOS CAD Patient: SAUL GUTIÉRREZ Exam Date: 09/22/2022 : 1945 Gender:F Ordering : HEAVEN STALEY [facility] Admission #: [id number] Family : Order #: [id number] CLICK HERE TO VIEW EXAM RADIOLOGY REPORT [...] Treatments None Family Cancers None LOCATION: The [facility] BREAST COMPOSITION: Almost entirely fatty. [...] Valenzuela M.D. on 09/22/2022 at 17:02 Normal [facility] PROF 14(COMP METB)on 09-22- 023 Albumin [Mass/Vol] 3.3 g/dL Critically low 3.4-5.0 Th e [facility] Comment on above: Performed By: #### C MP, T7, TSH, LIPID #### [facility] [address] [place], [place] [address] Dr. Ravin Dior Albumin/Globulin [Mass ratio] 0.7 {ratio} Normal [facility] Comment on above: Performed By: #### C MP, T7, TSH, LIPID #### [facility] [address] [place] [address] [address] Ravin Dior ALP [Catalytic activity/Vol] 207 U/L Critically high 46-116 [facility] Comment on above: Performed By: #### C MP, T7, TSH, LIPID #### [facility] [address] [place] [address] [address] Ravin Dior ALT [Catalytic activity/Vol] 47 U/L Normal 14-59 [facility] Comment on above: Performed By: #### C MP, T7, TSH, LIPID #### [facility] [address] [place] [address] [address] Ravin Dior Anion gap [Moles/Vol] 11.5 mmol/L Normal [facility] Comment on above: Performed By: #### C MP, T7, TSH, LIPID #### [facility] [address] [place] [address] Dr. Ravin Dior AST [Catalytic activity/Vol] 35 U/L Normal 15-37 [facility] Comment on above: Performed By: #### C MP, T7, TSH, LIPID #### [facility] [address] [place] [address] [address] Ravin Dior Bilirubin [Mass/Vol] 0.6 mg/dL Normal 0.2-1.0 [facility] Comment on above: Performed By: #### C MP, T7, TSH, LIPID #### [facility] [address] [place] [address] [address] Ravin Dior Calcium [Mass/Vol] 9.2 mg/dL Normal 8.5-10.1 [facility] Comment on above: Performed By: #### C MP, T7, TSH, LIPID #### [facility] [address] [place] [address] [address] Ravin Dior Chloride [Moles/Vol] 109 mmol/L Critically high 98-107 [facility] Comment on above: Performed By: #### C MP, T7, TSH, LIPID #### [facility] [address] [place] [address] [address] Ravin Dior CO2 [Moles/Vol] 27.7 mmol/L Normal 21.0-32.0 [facility] Comment on above: Performed By: #### C MP, T7, TSH, LIPID #### [facility] [address] [place] [address] Dr. Ravin Dior Creatinine [Mass/Vol] 0.94 mg/dL Normal 0.55-1.02 [facility] Comment on above: Performed By: #### C MP, T7, TSH, LIPID #### [facility] [address] [place] [address] Dr. Ravin Dior EGFR-AF MACEDONIAN >60 Normal >=60 [facility] Comment on above: Performed By: #### C MP, T7, TSH, LIPID #### [facility] [address] [place] [address] Dr. Ravin Dior EGFR-NON AF MACEDONIAN 58 mL/min/1.73m2 Critically low >=60 [facility] Comment on above: Performed By: #### C MP, T7, TSH, LIPID #### [facility] [address] [place] [address] Dr. Ravin Dior Globulin (S) [Mass/Vol] 4.7 g/dL Normal [facility] Comment on above: Performed By: #### C MP, T7, TSH, LIPID #### [facility] [address] [place] [address] Dr. Ravin Dior Glucose [Mass/Vol] 95 mg/dL Normal 74-106 [facility] Comment on above: Performed By: #### C MP, T7, TSH, LIPID #### [facility] [address] [place] [address] Dr. Ravin Dior Potassium [Moles/Vol] 4.2 mmol/L Normal 3.5-5.1 [facility] Comment on above: Performed By: #### C MP, T7, TSH, LIPID #### [facility] [address] [place] [address] Dr. Ravin Dior Protein [Mass/Vol] 8.0 g/dL Normal 6.4-8.2 [facility] Comment on above: Performed By: #### C MP, T7, TSH, LIPID #### [facility] [address] [place] [address] [address] Ravin Dior Sodium [Moles/Vol] 144 mmol/L Normal 136-145 [facility] Comment on above: Performed By: #### C MP, T7, TSH, LIPID #### [facility] [address] [place] [address] [address] Ravin Dior Urea nitrogen [Mass/Vol] 21.0 mg/dL Critically high 7.0-18.0 [facility] Comment on above: Performed By: #### C MP, T7, TSH, LIPID #### [facility] [address] [place] [address] [address] Ravin Dior Urea nitrogen/Creatinine [Mass ratio] 22.3 mg/mg Normal [facility] Comment on above: Performed By: #### C MP, T7, TSH, LIPID #### [facility] [address] [place] [address] [address] Ravin Dior TSHon 09-22-2022 TSH 2.085 uIU/mL Normal 0.358-3.740 [facility] Comment on above: Performed By: #### C MP, T7, TSH, LIPID #### [facility] [address] [place] [address] ABD/PELVIS WO CONon [...] was used, including Automated Exposure Control. FINDINGS: Cut Off Tender Glass: No pertinent findings, which are not already [...] the largest most superior hernia. Normal The [facility] CBC AUTO DIFFon 05-17-2022 BASO # 0.0 103/ul Normal 0.0-0.1 [facility] Comment on above: Performed By: #### C BC ####[facility] [address] [place], [place] [address]CpViky Dior Basophils/100 WBC (Bld) 0.2 % Normal 0.2-2.0 [facility] Comment on above: Performed By: #### C BC ####[facility] [address] [place], [place] [address]KsViky Dior EO # 0.1 103/ul Normal 0.0-0.7 [facility] Comment on above: Performed By: #### C BC ####[facility] [address]rt[address] [place] [address]Dr. Ravin Ovi Eosinophils/100 WBC (Bld) 1.4 % Normal 0.9-7.0 [facility] Comment on above: Performed By: #### C BC ####[facility] [address]we[address] [place], [place] [address]Dr. Ravin Dior Erythrocyte distribution width (RBC) [Ratio] 13.7 % Normal 11.0-15.0 [facility] Comment on above: Performed By: #### C BC ####[facility] [address] [place], [place] [address]Dr. Ravin Dior Hematocrit (Bld) [Volume fraction] 44.4 % Normal 36.0-48.0 [facility] Comment on above: Performed By: #### C BC ####[facility] [address] [place], [place] [address]Dr. Ravin Dior Hemoglobin (Bld) [Mass/Vol] 14.7 g/dL Normal 12.0-16.0 [facility] Comment on above: Performed By: #### C BC ####[facility] [address] [place], [place] [address]Dr. Ravin Dior IG # 0.05 10e3/ul Critically high 0.00-0.03 [facility] Comment on above: Performed By: #### C BC ####[facility] [address] [place], [place] [address]Dr. Ravin Dior IG % 0.5 % Normal 0.0-0.5 [facility] Comment on above: Performed By: #### C BC ####[facility] [address] [place], [place] [address]DrViky Dior LYMPH # 1.7 103/ul Normal 1.2-3.8 [facility] Comment on above: Performed By: #### C BC ####[facility] [address] [place], [place] [address]Dr. Ravin Dior Lymphocytes/100 WBC (Bld) 17.1 % Critically low 20.5-60.0 [facility] Comment on above: Performed By: #### C BC ####[facility] [address]gbx[address] [place] [address]DrViky Dior MANUAL DIFF REQ NO Normal [facility] Comment on above: Performed By: #### C BC ####[facility] [address]tht[address]uj[address] [place] [address]Dr. Ravin Dior MCH (RBC) [Entitic mass] 30.7 pg Normal 26.7-34.0 [facility] Comment on above: Performed By: #### C BC ####[facility] [address]fx[address] [place], [place] [address]DrViky Dior MCHC (RBC) [Mass/Vol] 33.1 g/dL Normal 29.9-35.2 [facility] Comment on above: Performed By: #### C BC ####[facility] [address]uz[address] [place], [place] [address]DrViky Dior MCV (RBC) [Entitic vol] 92.7 fL Normal 81.0-99.0 [facility] Comment on above: Performed By: #### C BC ####[facility] [address] [place], [place] [address]DrViky Dior MONO # 0.6 103/ul Normal 0.3-0.8 [facility] Comment on above: Performed By: #### C BC ####[facility] M[address] [place], [place] [address]DrViky Dior Monocytes/100 WBC (Bld) 5.7 % Normal 1.7-12.0 The [facility] Comment on above: Performed By: #### C BC ####[facility] [address] [place], [place] [address]DrViky Dior NEUT # 7.7 103/ul Critically high 1.4-6.[address] [facility] Comment on above: Performed By: #### C BC ####[facility] O[address] [place], [place] [address]DrViky Dior Neutrophils/100 WBC (Bld) 75.1 % Critically high 43.0-75.0 [facility] Comment on above: Performed By: #### C BC ####[facility] [address] [address]DrViky Dior Platelet mean volume (Bld) [Entitic vol] 10.4 fL Normal 9.5-13.5 [facility] Comment on above: Performed By: #### C BC ####[facility] [address] [place], [place] [address]Dr. Ravin Dior PLT 294 103/ul Normal 150-450 [facility] Comment on above: Performed By: #### C BC ####[facility] P[address] [place], [place] [address]Dr. Ravin Dior RBC 4.79 106/ul Normal 4.20-5.40 [facility] Comment on above: Performed By: #### C BC ####[facility] [address] [place], [place] [address]DrViky Dior WBC 10.2 103/ul Normal 4.0-11.0 [facility] Comment on above: Performed By: #### C BC ####[facility] L[address]rg[address] [place], [place] [address]Dr. Ravin Dior ER URINE PROFILEon 2 Bilirubin Ql (U) Negative Normal NEGATIVE The [facility] Comment on above: Performed By: #### DENY KAUFFMANRO #### [facility] [address] [place] [address] Dr. Ravin Dior Clarity (U) CLEAR Normal CLEAR The [facility] Comment on above: Performed By: #### DENY KAUFFMANRO #### [facility] [address] [place] [address] Dr. Ravin Dior Color (U) LT. YELLOW Normal YELLOW The [facility] Comment on above: Performed By: #### JAZ KAUFFMANICRO #### [facility] [address] [place] [address] Dr. Ravin Dior ERUAHD A micrscopic examination will be performed if indicated. Normal The [facility] Comment on above: Performed By: #### DENY KAUFFMANRO #### [facility] [address] [place] [address] Dr. Ravin Dior Glucose Ql (U) Negative Normal NEGATIVE [facility] Comment on above: Performed By: #### DENY KAUFFMANRO #### [facility] [address] [place] [address] Dr. Ravin Dior Hemoglobin Ql (U) Negative Normal NEGATIVE [facility] Comment on above: Performed By: #### Tammy SOUTH UMICRO #### [facility] [address] [place] [address] Dr. Ravin Dior Ketones Ql (U) TRACE Abnormal NEGATIVE [facility] Comment on above: Performed By: #### Tammy SOUTH UMICRO #### [facility] [address] [place] [address] Dr. Ravin Dior LEUKOCYTES SMALL Abnormal NEGATIVE [facility] Comment on above: Performed By: #### DENY KAUFFMANRO #### [facility] [address] [place] [address] Dr. Ravin Dior Nitrite Ql (U) Negative Normal NEGATIVE [facility] Comment on above: Performed By: #### DENY KAUFFMANRO #### [facility] [address] [place] [address] Dr. Ravin Dior pH (U) 6.0 [pH] Normal 5-9 [facility] Comment on above: Performed By: #### DENY KAUFFMANRO #### [facility] [address] [place] [address] Dr. Ravin Dior SPEC GRAVITY 1.010 Normal 1.005-<=1.[address] [facility] Comment on above: Performed By: #### DENY KAUFFMANRO #### [facility] [address] [place] [address] Dr. Ravin iDor UA PROTEIN Negative Normal NEGATIVE/ TRACE The [facility] Comment on above: Performed By: #### DENY KAUFFMANRO #### [facility] [address] [place] [address] Dr. Ravin Dior UR MICRO IND INDICATED Normal [facility] Comment on above: Performed By: #### E JAZ SOUTHICRO #### [facility] [address] [address] [address] Ravin Dior Urobilinogen Qn (U) 0.2 {Chandler'U}/dL Normal 0.2 - 1. 0 The [facility] Comment on above: Performed By: #### E DENY SOUTHRO #### [facility] [address] [address] [address] Ravin Dior LACTATE/LACTIC ACIDon 2021 Lactate [Moles/Vol] 1.3 mmol/L Normal 0.4-1.9 [facility] Comment on above: Performed By: #### L ACT ####[facility] [address] [address]Dr. Ravin Dior LIPASEon 05-17-2022 Lipase [Catalytic activity/Vol] 63.0 U/L Critically low 73.0-393.0 [facility] Comment on above: Performed By: #### C MP, LIPA #### [facility] [address] [address] [address] Ravin Dior PROF 14(COMP METB)on 022 Albumin [Mass/Vol] 3.4 g/dL Normal 3.4-5.0 [facility] Comment on above: Performed By: #### C MP, LIPA #### [facility] [address] [place] [address] Dr. Ravin Dior Albumin/Globulin [Mass ratio] 0.8 {ratio} Normal [facility] Comment on above: Performed By: #### C MP, LIPA #### [facility] [address] [address] [address] Ravin Dior ALP [Catalytic activity/Vol] 143 U/L Critically high 46-116 [facility] Comment on above: Performed By: #### C MP, LIPA #### [facility] [address] [address] [address] Ravin Dior ALT [Catalytic activity/Vol] 29 U/L Normal 14-59 [facility] Comment on above: Performed By: #### C MP, LIPA #### [facility] [address] [address] [address] Ravin Dior Anion gap [Moles/Vol] 7.6 mmol/L Normal [facility] Comment on above: Performed By: #### C MP, LIPA #### [facility] [address] [place] [address] Dr. Ravin Dior AST [Catalytic activity/Vol] 39 U/L Critically high 15-37 [facility] Comment on above: Performed By: #### C MP, LIPA #### [facility] [address] [place] [address] Dr. Ravin Dior Bilirubin [Mass/Vol] 0.7 mg/dL Normal 0.2-1.0 [facility] Comment on above: Performed By: #### C MP, LIPA #### [facility] [address] [place] [address] Dr. Ravin Dior Calcium [Mass/Vol] 9.1 mg/dL Normal 8.5-10.1 [facility] Comment on above: Performed By: #### C MP, LIPA #### [facility] [address] [place] [address] Dr. Ravin Dior Chloride [Moles/Vol] 102 mmol/L Normal 98-107 [facility] Comment on above: Performed By: #### C MP, LIPA #### [facility] [address] [place] [address] Dr. Ravin Dior CO2 [Moles/Vol] 31.1 mmol/L Normal 21.0-32.0 [facility] Comment on above: Performed By: #### C MP, LIPA #### [facility] [address] [place] [address] Dr. Ravin Dior Creatinine [Mass/Vol] 0.88 mg/dL Normal 0.55-1.02 [facility] Comment on above: Performed By: #### C MP, LIPA #### [facility] [address] [place] [address] Dr. Ravin Dior EGFR-AF MACEDONIAN >60 Normal >=60 [facility] Comment on above: Performed By: #### C MP, LIPA #### [facility] [address] [place] [address] Dr. Ravin Dior EGFR-NON AF MACEDONIAN >60 Normal >=60 [facility] Comment on above: Performed By: #### C MP, LIPA #### [facility] [address] [address] [address] Ravin Dior Globulin (S) [Mass/Vol] 4.5 g/dL Normal [facility] Comment on above: Performed By: #### C MP, LIPA #### [facility] [address] [place] [address] Dr. Ravin Dior Glucose [Mass/Vol] 100 mg/dL Normal 74-106 [facility] Comment on above: Performed By: #### C MP, LIPA #### [facility] [address] [place] [address] Dr. Ravin Dior Potassium [Moles/Vol] 3.7 mmol/L Normal 3.5-5.1 [facility] Comment on above: Performed By: #### C MP, LIPA #### [facility] [address] [place] [address] Dr. Ravin Dior Protein [Mass/Vol] 7.9 g/dL Normal 6.4-8.2 [facility] Comment on above: Performed By: #### C MP, LIPA #### [facility] [address] [place] [address] Dr. Ravin Dior Sodium [Moles/Vol] 137 mmol/L Normal 136-145 [facility] Comment on above: Performed By: #### C MP, LIPA #### [facility] [address] [place] [address] Dr. Ravin Dior Urea nitrogen [Mass/Vol] 12.0 mg/dL Normal 7.0-18.0 [facility] Comment on above: Performed By: #### C MP, LIPA #### [facility] [address] [place] [address] Dr. Ravin Dior Urea nitrogen/Creatinine [Mass ratio] 13.6 mg/mg Normal [facility] Comment on above: Performed By: #### C MP LIPA #### [facility] [address] [place] [address] Dr. Ravin Dior URINE MICROSCOPIC ONLYon BACTERIA NONE SEEN Normal NONE SEEN [facility] Comment on above: Performed By: #### E RUR, UMICRO #### [facility] [address] [place] [address] Dr. Ravin Dior Bacteria identified Cx Nom (U) NOT INDICATED Normal [facility] Comment on above: Performed By: #### E RUR, UMICRO #### [facility] [address] [place] [address] Dr. Ravin Dior CAST NONE SEEN Normal NONE SEEN [facility] Comment on above: Performed By: #### E RUR, UMICRO #### [facility] [address] [place] [address] Dr. Ravin Dior Crystals LM Nom (Urine sed) NONE SEEN Normal NONE SEEN [facility] Comment on above: Performed By: #### E RUR, UMICRO #### [facility] [address] [place] [address] Dr. Ravin Dior Epithelial cells LM Ql (Urine sed) FEW Abnormal NONE SEEN /RARE [facility] Comment on above: Performed By: #### E RUR, UMICRO #### [facility] [address] [place] [address] Dr. Ravin Dior MUCOUS NONE SEEN Normal NONE SEEN [facility] Comment on above: Performed By: #### E RUR, UMICRO #### [facility] [address] [place] [address] Dr. Ravin Dior RBC NONE SEEN Abnormal 0-2 [facility] Comment on above: Performed By: #### E RUR, UMICRO #### [facility] [address] [place] [address] Dr. Ravin Dior WBC 0-2 Abnormal NONE SEEN [facility] Comment on above: Performed By: #### E RUR, UMICRO #### [facility] [address] [address] [address] Ravin Dior Ambulatory Clinical Summaryo n 07-24-2020 Ambulatory Clinical Summary {[id number] Normal [facility] Gastroenterology Office/Clin ic Noteon 07-24-2020 Gastroenterology [...] course, # 28 cap(s), Refills(s) 0, Pharmacy: [facility]/pharmacy #[id number], 165, cm, 07/24/20 12:03:00 EST, Height/Length Dosing, 95.9, kg, 07/24/20 12:03:00 EST, Weight Dosing metronidazole, 250 mg = 1 tab(s), Oral, TID, X 7 day(s), # 21 tab(s), Refills(s) 0, Pharmacy: [facility]/pharmacy #[id number], 165, cm, 07/24/20 12:03:00 [...] water, # 160 cap(s), Refills(s) 1, Pharmacy: [facility]/pharmacy #[id number], 165, cm, 07/24/20 12:03:00 EST, Height/Length Dosing, 95.9, kg, 07/24/20 12:03:... Orders: pantoprazole, 40 mg = 2 tab(s), Oral, Daily, X 90 day(s), # 180 tab(s), Refills(s) 3, Pharmacy: [facility]/pharmacy #[id number], 165, cm, 07/24/20 12:03:00 EST, Height/Length Dosing, 95.9, kg, 07/24/20 12:03:00 EST, Weight Dosing Follow-up With When Contact Information Isabelle Ramirez MD In 12 months [address] [place] [address]- Additional Instructions: Problem List/Past Medical [...] 12/16/2018 Exercise - Occasional exercise, 12/16/2018 Other Ofirbszp-5-8 cups blair;y, 12/16/2018 Substance Abuse - Denies Substance Abuse, 12/16/2018 Tobacco Never (less than 100 in lifetime) Tobacco Use:., 07/24/2020 Never (less than 100 in lifetime) Tobacco Use:. Never Smokeless Tobacco Use:., 02/01/2019 [facility] Comment on above: Result Comment: Elec tronically Signed By: Taylor Mccauley MD, Isabelle\.bernie\Date and Time Signed: 07/24/20 13:13 EST Auth for Release of Medical Recordson 02-09-2020 Auth for Release of Medical Records [id number] [facility] January 24, 2020 SAUL GUTIÉRREZ [address] [place] [address] SAUL GUTIÉRREZ 1945 Dear Saul, This is a reminder that you are due for an appointment with Dr. Garland or Dr. Mccauley. Please call [facility] at [phone] to schedule an appointment at your earliest convenience. Thank you, [facility] Encounters Encounter Date Encounter Type Care Provider Facility Start: 02-08-2024 End: 02-08-2024 ambulatory [facility] Start: 01-18-2024 ambulatory [facility] Start: 01-17-2024 End: 01-17-2024 ambulatory CARIDAD GARNER Not Available Start: 01-11-2024 End: 01-11-2024 ambulatory SANDIE PAGE Not Available Start: 01-05-2024 ambulatory [facility] Start: 12-20-2023 End: 12-20-2023 ambulatory SANDIE PAGE Not Available Start: 12-16-2023 ambulatory [facility] Start: 12-01-2023 End: 12-01-2023 ambulatory ADELAIDA RIZO [facility] Start: 11-25-2023 ambulatory SHAYY ORTIZ [facility] Start: 11-24-2023 ambulatory [facility] Start: 11-23-2023 ambulatory [facility] Start: 11-23-2023 Encounter for preprocedural cardiovascular examination [facility] Start: 11-11-2023 End: 11-11-2023 ambulatory SHAR GARCÍA Not Available Start: 11-01-2023 ambulatory [facility] Start: 11-01-2023 End: 11-01-2023 ambulatory [facility] Start: 08-10-2023 End: 08-10-2023 ambulatory [facility] Start: 07-14-2023 End: 07-14-2023 ambulatory ADELAIDA RIZO [facility] Start: 07-05-2023 ambulatory [facility] Start: 07-05-2023 End: 07-05-2023 ambulatory [facility] Start: 06-05-2023 Refill 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: [facility] Comment on above: Med Refill Start: 05-18-2023 End: 05-18-2023 ambulatory [facility] Start: 03-23-2023 End: 03-26-2023 ambulatory [facility] Start: 09-22-2022 End: 09-23-2022 ambulatory [...] Adult BMI Screening Adult BMI Screen ing [facility] Start: 08-25-2023 Tobacco Screening Tobacco Screening [facility] Start: 01-29-2023 COVID-19 Vaccine ( season) COVID-19 Vaccine ( season) [facility] Start: 01-29-2023 Influenza vaccination Influenza Vacc ine [facility] Start: 11-03-2022 ambulatory Ambulatory Facility:H 1 Start: 2010 Fall Risk Screening Fall Risk Screen ing [facility] Start: 1995 Administration of varicella zoster vaccine Zoster (Shingles) Vaccine (1 of 2) [facility] Start: 1964 DTaP,Tdap and Td Vac cines (1 - Tdap) DTaP,Tdap and Td Vaccines (1 - Tdap) [facility] Start: 1963 Adult BMI Follow Up Plan Adult BMI Follow Up Plan [facility] Start: 1957 Depression Screening Depression Scre laura [facility] Start: 1945 Medicare Annual Well ness Visit Medicare Annual Wellness Visit [facility] End: 06-08-2024 Basic metabolic 2000 panel - Serum or Plasma Basic Metabolic Panel Lab Routine Essential hypertension 1 Occurrences starting 06/08/2023 until 06/08/2024 [employer] Work Phone: Comment on above: 1 Occurrences starti ng 06/08/2023 until 06/08/2024 Immunizations Immunization Date Immunization Notes Care Provider Tutu rehman 05-08-2021 influenza virus vaccine, unspecified formulation Mac Erwin 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 [facility] Payers Date Payer Category Payer Medicare HU[employer]NA MEDICARE [place] [id number] 2013-Present [phone] [address] [address] [place] [address] [id number] 1959 Medicare [id number] 1945 Unknown [id number] 1945 Unknown [id number] 1945 Unknown [id number] 1945 Unknown [id number] 1945 Unknown [id number] 1945 Unknown [id number] 1945 Unknown [id number] 1945 Unknown [id number] [id number] 9 1945 Unknown [id number] [id number] 9 1945 Unknown [id number] [id number] 9 1945 Unknown [id number] 9 Social History Date Type Detail Facility Start: 05-26-2022 Tobacco smoking stat [facility] Never smoked tobacco [facility] Start: 05-26-2022 Tobacco use and exposure Smoke less tobacco non-user [facility] Start: 08-24-2022 Alcohol intake 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 (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) [facility] Start: 07-04-2020 End: 08-24-2022 History of Social function [facility] Start: 07-04-2020 End: 08-24-2022 Tobacco use panel [facility] Housing Instability Unknown [facility] Start: 1945 Sex Assigned At Not on file P [facility] Medical Equipment Procedure Code Equipment Code Equipment Origin al Text Equipment Identifier Dates Mesh [id number] 3d Rect Plstr Clgn Symbotex 2 Sd Comp Mfl Babsr Rpl [id number] - Sna - [id number] Start: 06-30-2022 Dev Clsr 30fr Watchman 30mm - [id number] Start: 10-28-2018 Clinical Notes 12-24-2021 to 02-14-2024 Note Date & Type Note Facility 02-14-2024 Note [facility]= [facility] 02-11-2024 Note RCRI= 2 points Class III Risk 10.1 % 30-day risk of , [place], or cardiac arrest From a cardiac perspective pt may proceed with planned surgery, she is a moderate risk for a moderate risk orthopedic surgery. She may hold Aspirin 5-7 days prior and resume post op. Please monitor hemodynamics carefully and prevent any major fluid shifts. Adelaida Darrius [facility] Cardiology Available 7a-5pm via [employer] Chat Pager [phone] [facility] 12-01-2023 Note Currently pt is doin g quite well s/p recent AV node ablation Remains V paced with BI-V AICd [facility] 12-01-2023 Note No anticoagulation [facility] Note [facility]TP CARDIOLOGY PROGR [...] [facility] She was initially seen by [...] Conjunctiva/sclera: Conjunctivae normal. (more content not included)... [facility] 12-01-2023 Note Patient here for fol low up AV node ablation performed on 11/01/[address] Madden. She denies chest pain, SOB, palpitations, and lightheadedness/syncope. Review of Systems Musculoskeletal: Positive for arthritis and back pain. All other systems reviewed and are negative. [facility] 11-01-2023 Note AV NODE ABLATION PRO CEDURE REPORT DATE OF PROCEDURE: 11/01/2023 PERFORMING PHYSICIAN: Dr. Robert Madden CARE DIRECTOR: TOÑA CONSENT: Patient NAME OF THE PROCEDURE: [...] GI bleed. She was previously seen by [facility] cardiology. She was initially seen by [...] Continue anticoagulation. Robert Madden MD Cardiac Electrophysiology. [facility] 11-01-2023 Note Patient: Saul mcghee Procedure Information Date/Time: 11/01/23829 Procedure: AV node ablation Location: [facility] 1 EP / [facility] HV VASCULAR LAB (Cath) Providers: Robert Madden MD Clinical information reviewed: Tobacco Allergies Meds Med Hx Surg Hx OB Status Fam Hx Physical Exam Airway Mallampati: II TM distance: >3 FB Neck ROM: full Cardiovascular Dental Pulmonary Abdominal Anesthesia Plan ASA 2 CSE Anesthetic plan and risks discussed with patient. Use of blood products discussed with patient who. Additional Equipment Requests [facility] 11-01-2023 Note [place] Electrophysiology Consult Note Reason for visit: Afib [...] [facility]. She was initially seen by [...] on file Intimate Partner Violence: Unknown (07/23/2023) [place] Safety & Environment Fear of Current or [...] 50 mg tab (more content not included)... [facility] 08-27-2023 Note ca [facility] 07-14-2023 Note stable [facility] 07-14-2023 Note Patient here for wou nd check s/p BiV ICD implant on 07/05/[address] Madden. [facility] 07-14-2023 Note UTP CARDIOLOGY PROGR ESS [...] GI bleed. She was previously seen by [facility] cardiology. She was initially seen by [...] Neurological: General: No (more content not included)... [facility] 07-14-2023 Note Site well approximat ed and healing well No s/s of infection or hematoma, + ecchymosis noted [facility] 07-14-2023 Note -[id number] at [facility] 5 for age x2, gender, hypertension, CHF, on aspirin s/p watchmen Continue meds as prescribed [facility] 07-05-2023 Note [employer]IST-D IMPLANT PROCED URE NOTE DATE OF PROCEDURE: 07/05/2023 PERFORMING PHYSICIAN: Dr. 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 Implantation of Biventricular ICD ([employer]). 2. U/S venous access 3. Coronary [...] [facility]. She was initially seen by Dr. [...] occasions using seldinger technique using a 5 Amharic micropunture needle and exchanged for 0.034 wire. I decided to proceed with opening of the pocket. Localinfiltration of 1% Lidocaine was performed and an incision was created in the left upper chest. Dissection was then performed using cautery down. An active fixation [employer] ICD lead was then delivered through the 8F sheath to the right ventricle. After confirmation of lead position on orthogonal views (BECK and KYRGYZ) to confirm position in the septal aspect, [...] The leads were then attached to a [employer] WAGE AND SALARY SPECIALIST-D device with atrial ort capped and the [...] Patient was hemodynamically (more content not included)... [facility] 07-05-2023 Note Patient: Saul [email or web address] Procedure Information Date/Time: 07/05/23 1400 Procedure: Implant ICD - biventricular Location: [facility] [address] / [facility] HV VASCULAR LAB (Cath) Providers: Robert Madden MD Clinical information reviewed: Allergies Meds Physical Exam Airway Mallampati: II TM distance: >3 FB Neck ROM: full Cardiovascular Dental Pulmonary Abdominal Anesthesia Plan ASA 2 CSE Anesthetic plan and risks discussed with patient. Use of blood products discussed with patient who. Additional Equipment Requests [facility] 05-18-2023 Note [place] Electrophysiology Consult Note Reason for visit: Afib [...] GI bleed. She was previously seen by [facility] cardiology. She was initially seen by [...] Appearance: well-nourished, we (more content not included)... [facility] 03-23-2023 Note [place] Electrophysiology Consult Note Reason for visit: Afib HPI: Saul Gutiérrez is a 77 y.o. year old with past medical history of HFrEF with EF of 35% as per an echocardiogram in May 2022, nonobstructive coronary artery disease as per cath on 01/05/2023 who previously had undergone a Watchman procedure in 2019 due to GI bleed. She was previously seen by [facility] cardiology. She was initially seen by [...] no cyanosis, no (more content not included)... [facility] 07-23-2022 Note PAIN MANAGEMENT CONS ULTATION CONSULTATION DATE: 07/23/2022 TO: Larias Staley CHIEF COMPLAINT: Left hip pain, left [...] months' time or sooner if needed. [facility] 03-26-2022 Note CONSULTATION CONSULTATION DATE: [...] agrees with the plan of care. [facility] 12-24-2021 Note CONSULTATION PROCEDURE DATE: [...] the procedure well with no complications. [facility] 12-24-2021 Note CONSULTATION CONSULTATION DATE: [...] three months' time, unless otherwise indicated. [facility] Evaluation note Diagnosis Essential hypertension- Primary Unspecified essential hypertension [facility] filed[facility] Summary Purpose Family History No Family History Records FoundNo Family History Records FoundNo Family History Records FoundNo Family History Records Found Advance Directives No Advanced Directives Records FoundNo Advanced Directives Records FoundNo Advanced Directives Records FoundNo Advanced Directives Records Found Additional Source Comments INFORMATION SOURCE (unrecogn ized section and content) DATE CREATED AUTHOR 07/25/[address] 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 [employer] provides no warranty or guarantee of the accuracy or completeness of information in this document.
== END 2024-02-22 08:21 | disposition home or self-care (01) ==
LOC: LAB 08:23
PROVIDERS: PCP Nurse Practitioner Family; Visit Provider Physician Assistant
DX: M54.50 Low back pain, unspecified (principal)
CPT/HCPCS: 36415; 80323

== ENCOUNTER 2024-02-22 08:32 | Outpatient (OUT) | payer MEDICARE, SELFPAY ==
--- OUTSIDE RECORDS SUMMARY | 2024-02-22 08:37 | XMS_ITS | CCD ---
Author Organization [facility] Care Team Providers Care Director Of Rehabilitation And Wellness Name Role Phone JOHNSON ., DR JAYLON [...] vailable LAKSHMIPATHY ., NARENDRANATH Attending Charity vailable [facility], [facility] Primary Care Unavailable LUÍS, HEAVEN Admitting Unavailable HEAVEN STALEY Attending [facility] Care Unavailable DR SHAR [...] sources) Codeine; Translations: [CODEINE] Drug Allergy 06-06-2014 [facility] Repository (1 source) Codeine Drug Allergy 06-06-2014 [facility] (2 sources) Lisinopril; Translations: [LISINOPRIL] Drug Allergy 10-19-2014 [facility] (1 source) pregabalin; Translations: [PREGABALIN] Drug Allergy 12-01-2023 [facility] Repository Medications Current Medications Medication Drug [...] 30 tablet 1 06/08/2023 Active lactobacillus acidophilus [id number] unt oral capsule (1 source) take 1 [...] Indications: Chronic systolic CHF (congestive heart failure) ([facility]) Take 1 tablet (25 mg total) [...] 10-11-2020 Episodic Other aftercare (1 source) Other intermediate (current) drug therapy; Translations: [OTH HALF-WAY CURRENT DRUG THERAPY] Onset: 05-19-2022 Episodic Other [...] up. Will try again on Wednesday morning. [facility] Documentationon 02-11-2024 Documentation [id number] Saul Gutiérrez 1945 F Date Provider Department Center 02/11/2024 ADELAIDA VALENCIA MAGNUS Gonzales Family History Problem Relation Age of Onset Heart failure Father Family Status - Relation Status Age at Father [facility] 36on 02-08-2024 36 Patient had [...] Dr. Madden until 03/21. Please advise. Thanks. [facility] Telephoneon 02-08-2024 Telephone [id number] Saul Gutiérrez 1945 F Date Provider Department Center 02/08/2024 Jarrett-CARIDAD LOVE Family History Problem Relation Age of Onset Heart failure Father Family Status - Relation Status Age at Father [facility] Office Visiton 12-01-2023 Follow-up visit [id number] Saul Gutiérrez 1945 F Date Provider Department Center 12/01/2023 ADELAIDA VALENCIA MAGNUS [place] Family History Problem Relation Age of Onset Heart failure Father Family Status - Relation Status Age at Father Level of Service:25229 HI POSTOP FOLLOW UP VISIT RELATED TO ORIGINAL PX [facility] HPon 11-01-2023 [facility] Electrophysiology Consult Note Reason for visit: [...] She was previously seen by [facility] cardiology. She was initially seen by [...] on file Intimate Partner Violence: Unknown (07/23/2023) [facility] Fear of Current or [...] 50 mg tab (more content not included)... [facility] NURSNOTEon 11-01-2023 NURSNOTE RN educated pt on d/ c instructions. RN encouraged pt to voice any questions or concerns. Pt verbalizes no questions or concerns at this time. [facility] Orders Onlyon 10-22-2023 Orders Only [id number] Saul Gutiérrez 1945 F Date Provider Department Center 10/22/2023 DEMOND RAMOS [facility] Family History Problem Relation Age of Onset Heart failure Father Family Status - Relation Status Age at Father [facility] Orders Onlyon 08-27-2023 Orders Only [id number] Saul Gutiérrez 1945 F Date Provider Department Center 08/27/2023 LEATHA BAHENA MAGNUS [facility] Family History Problem Relation Age of Onset Heart failure Father Family Status - Relation Status Age at Father [facility] Office Visiton 07-14-2023 Follow-up visit [id number] Saul Gutiérrez 1945 F Date Provider Department Center 07/14/2023 ADELAIDA VALENCIA MAGNUS [facility] Family History Problem Relation Age of Onset Heart failure Father Family Status - Relation Status Age at Father Level of Service:94341 HI POSTOP FOLLOW UP VISIT RELATED TO ORIGINAL PX [facility] HPon 07-05-2023 [facility] Electrophysiology Consult Note Reason for visit: [...] She was previously seen by [facility] cardiology. She was initially seen by [...] well-nourished, we (more content not included)... Normal [facility] NURSNOTEon 07-05-2023 NURSNOTE RN educated pt on d/ c instructions. RN encouraged pt to voice any questions or concerns. Pt verbalizes no questions or concerns at this time. Pt was wheeled off of unit with all of belongings. Normal [facility] NURSNOTE CHG wipes and betadine nasal swabs completed. [facility] Orders Onlyon 07-05-2023 Orders Only [id number] Saul Gutiérrez 1945 Provider Department Center 07/05/2023 ELENA ATWOOD [facility] Family History Problem Relation Age of Onset Heart failure Father Family Status - Relation Status Age at Father [facility] Office Visiton 05-18-2023 Follow-up visit [id number] Saul Gutiérrez 1945 Provider Department Center 05/18/2023 ROBERT GEE Family History Problem Relation Age of Onset Heart failure Father Family Status - Relation Status Age at Father Level of Service:48227 HI OFFICE/OUTPATIENT ESTABLISHED MOD MDM 30 MIN (GC) [facility] Office Visiton 03-23-2023 Follow-up visit [id number] Saul Gutiérrez 1945 Provider Department Center 03/23/2023 ROBERT GEE Family History Problem Relation Age of Onset Heart failure Father Family Status - Relation Status Age at Father Level of Service:38790 HI OFFICE/OUTPATIENT NEW MODERATE MDM 45-59 MINUTES [facility] INSULINon 09-23-2022 Insulin 7.9 uIU/mL Normal 2.6-24.9 [facility] Comment on above: Performed By: #### I NSULIN ####[facility] [address] [place], [place] [address]VdViky Ravin Ovi CBC AUTO DIFFon 09-22-2022 BASO # 0.0 103/ul Normal 0.0-0.1 [facility] Comment on above: Performed By: #### C BC ####[facility] [address] [place] [id number]. Ravin Dior Basophils/100 WBC (Bld) 0.4 % Normal 0.2-2.0 [facility] Comment on above: Performed By: #### C BC ####[facility] [address] [place] [id number]. Ravin Dior EO # 0.6 103/ul Normal 0.0-0.7 [facility] Comment on above: Performed By: #### C BC ####[facility] [address] [place], [place] [address]Dr. Ravin Dior Eosinophils/100 WBC (Bld) 6.6 % Normal 0.9-7.0 [facility] Comment on above: Performed By: #### C BC ####[facility] Jjbfe[address] [place], [place] [address]Dr. Ravin Dior Erythrocyte distribution width (RBC) [Ratio] 16.2 % Critically high 11.0-15.0 [facility] Comment on above: Performed By: #### C BC ####[facility] [address]kndp[address] [place] [id number]. Ravin Dior Hematocrit (Bld) [Volume fraction] 43.3 % Normal 36.0-48.0 [facility] Comment on above: Performed By: #### C BC ####[facility] [address] [place] [id number]. Ravin Dior Hemoglobin (Bld) [Mass/Vol] 13.4 g/dL Normal 12.0-16.0 [facility] Comment on above: Performed By: #### C BC ####[facility] [address] [place] [id number]. Ravin Dior IG # 0.05 10e3/ul Critically high 0.00-0.03 [facility] Comment on above: Performed By: #### C BC ####[facility] [address] [place], [place] [address]Dr. Ravin Dior IG % 0.5 % Normal 0.0-0.5 [facility] Comment on above: Performed By: #### C BC ####[facility] [address] [place] [id number]. Ravin Ovi LYMPH # 2.1 103/ul Normal 1.2-3.8 [facility] Comment on above: Performed By: #### C BC ####[facility] [address] [place] [id number]. Ravin Ovi Lymphocytes/100 WBC (Bld) 23.1 % Normal 20.5-60.0 [facility] Comment on above: Performed By: #### C BC ####[facility] [address]fs[address] [place] [id number]. Novalilliana Dior MANUAL DIFF REQ NO Normal [facility] Comment on above: Performed By: #### C BC ####[facility] [address]jx[address] [place] [id number]. Ravin Ovi MCH (RBC) [Entitic mass] 29.5 pg Normal 26.7-34.0 [facility] Comment on above: Performed By: #### C BC ####[facility] [address] [place] [id number]. Ravin Dior MCHC (RBC) [Mass/Vol] 30.9 g/dL Normal 29.9-35.2 [facility] Comment on above: Performed By: #### C BC ####[facility] [address] [place] [id number]. Ravin Ovi MCV (RBC) [Entitic vol] 95.4 fL Normal 81.0-99.0 [facility] Comment on above: Performed By: #### C BC ####[facility] [address] [place] [id number]. Ravin Ovi MONO # 0.5 103/ul Normal 0.3-0.8 [facility] Comment on above: Performed By: #### C BC ####[facility] [address]nx[address] [place] [id number]. Ravin Ovi Monocytes/100 WBC (Bld) 5.8 % Normal 1.7-12.0 [facility] Comment on above: Performed By: #### C BC ####[facility] [address] [place], [place] [address]Ks. Ravin Dior NEUT # 5.8 103/ul Normal 1.4-6.5 [facility] Comment on above: Performed By: #### C BC ####[facility] [address] [place] [phone]. Ravin Ovi Neutrophils/100 WBC (Bld) 63.6 % Normal 43.0-75.0 [facility] Comment on above: Performed By: #### C BC ####[facility] [address] [place] [phone]. Ravin Dior Platelet mean volume (Bld) [Entitic vol] 10.7 fL Normal 9.5-13.5 [facility] Comment on above: Performed By: #### C BC ####[facility] [address] [place] [id number]. Ravin Dior PLT 223 103/ul Normal 150-450 [facility] Comment on above: Performed By: #### C BC ####[facility] [address]tila[address] [place] [id number]. Novalilliana Dior RBC 4.54 106/ul Normal 4.20-5.40 [facility] Comment on above: Performed By: #### C BC ####[facility] [address] [place] [id number]. Ravin Ovi WBC 9.2 103/ul Normal 4.0-11.0 [facility] Comment on above: Performed By: #### C BC ####[facility] [address] [place] [phone] Novalilliana Dior FREE THYROXINE INDEX T7on FTI 2.44 Normal 1.30-4.50 [facility] Comment on above: Performed By: #### C MP, T7, TSH, LIPID #### [facility] [address] [place], [place] [address] Dr. Ravin Dior T3U 33.0 % Normal 30.0-39.0 [facility] Comment on above: Performed By: #### C MP, T7, TSH, LIPID #### [facility] [address] [place] [id number] [address] Ravin Dior T4 [Mass/Vol] 7.40 ug/dL Normal 4.80-13.90 [facility] Comment on above: Performed By: #### C MP, T7, TSH, LIPID #### [facility] [address] [place], [place] [address] Dr. Ravin Dior GLYCOHEMOGLOBIN A1Con 2022 ADA RECOMMENDATION SEE BELOW Normal [facility] Comment on above: Result Comment: ADA RECOMMENDED LIMIT 4.0 - 6.0 ADA THERAPEUTIC TARGET < 7.0 ACTION SUGGESTED > 7.0 Performed By: #### A 1C ####[facility] [address] [place] [address]Dr. Ravin Dior Glucose [Mass/Vol] 105 mg/dL Normal [facility] Comment on above: Performed By: #### A 1C ####[facility] [address] [place] [address]Dr. Ravin Dior HbA1c (Bld) [Mass fraction] 5.3 % Normal 4.5-6.2 [facility] Comment on above: Performed By: #### A 1C ####[facility] [address] [place] [address]Dr. Ravin Dior IRONon 09-22-2022 Iron [Mass/Vol] 81.0 ug/dL Normal 50.0-170.0 [facility] Comment on above: Performed By: #### I SEAMUS ####[facility] [address] [place] [address] [place], [place] [address]DrViky Dior LIPID PROFILEon 09-22-2022 CHOL-HDL RATIO NORM SEE BELOW Normal [facility] Comment on above: Result Comment: 3.3 - 4.4 LOW RISK 4.4 - 7.1 AVERAGE RISK 7.1 - 11.0 MODERATE RISK >11.0 HIGH RISK Performed By: #### C MP, T7, TSH, LIPID ####[facility] [address] [place] [address]DrViky Dior Cholesterol [Mass/Vol] 159 mg/dL Normal <=200 [facility] Comment on above: Performed By: #### C MP, T7, TSH, LIPID ####[facility] [address] [place] [phone]. Ravin Dior Cholesterol in HDL [Mass/Vol] 47 mg/dL Normal 40-60 [facility] Comment on above: Performed By: #### C MP, T7, TSH, LIPID ####[facility] [address] [place] [phone]. Ravin Dior Cholesterol in LDL [Mass/Vol] 96.4 mg/dL Normal [facility] Comment on above: Performed By: #### C MP, T7, TSH, LIPID ####[facility] [address] [place] [phone]. Ravin Dior Cholesterol.total/Cho lesterol in HDL [Mass ratio] 3.4 {ratio} Normal [facility] Comment on above: Performed By: #### C MP, T7, TSH, LIPID ####[facility] [address] [place] [address]Dr. Ravin Dior HDL NORMAL > or = 60 mg/dl - LO W CARDIOVASCULAR RISK <40 mg/dl - HIGH CARDIOVASCULAR RISK Normal [facility] Comment on above: Performed By: #### C MP, T7, TSH, LIPID ####[facility] [address] [place] [address]Dr. Ravin Dior LDL CALC NORMAL SEE BELOW Normal [facility] Comment on above: Result Comment: <100 mg/dl OPTIMAL 100 - 129 mg/dl NEAR OR ABOVE OPTIMAL 130 - 159 mg/dl BORDERLINE HIGH 160 - 189 mg/dl HIGH >190 mg/dl VERY HIGH Performed By: #### C MP, T7, TSH, LIPID ####[facility] [address] [place] [phone]. Ravin Dior Triglyceride [Mass/Vol] 78 mg/dL Normal <=150 [facility] Comment on above: Performed By: #### C MP, T7, TSH, LIPID ####[facility] [address] [place] [phone]. Ravin Dior VLDL CALC 15.6 mg/dL Normal [facility] Comment on above: Performed By: #### C MP, T7, TSH, LIPID ####[facility] [address] [place], [place] [address]Dr. Ravin Dior MG MAMM SCREEN 3D NIKOS CADon 09-22-2022 MG MAMM SCREEN 3D NIKOS CAD Patient: SAUL GUTIÉRREZ Exam Date: 09/22/2022 : 1945 Gender:F Ordering : [facility]EN [facility] Admission #: [id number] Family : Order #: [id number] CLICK HERE TO VIEW EXAM RADIOLOGY REPORT [...] Treatments None Family Cancers None LOCATION: [facility] BREAST COMPOSITION: Almost entirely fatty. FINDINGS: [...] Valenzuela M.D. on 09/22/2022 at 17:02 Normal [facility] PROF 14(COMP METB)on 09-22- 023 Albumin [Mass/Vol] 3.3 g/dL Critically low 3.4-5.0 [facility] Comment on above: Performed By: #### C MP, T7, TSH, LIPID #### [facility] [address] [place], [place] [address] Dr. Ravin Dior Albumin/Globulin [Mass ratio] 0.7 {ratio} Normal [facility] Comment on above: Performed By: #### C MP, T7, TSH, LIPID #### [facility] [address] [place] [address] [address] Ravin Dior ALP [Catalytic activity/Vol] 207 U/L Critically high 46-116 [facility] Comment on above: Performed By: #### C MP, T7, TSH, LIPID #### [facility] [address] [place] [address] [address] Ravin Dior ALT [Catalytic activity/Vol] 47 U/L Normal 14-59 [facility] Comment on above: Performed By: #### C MP, T7, TSH, LIPID #### [facility] [address] [place] [address] [address] Ravin Dior Anion gap [Moles/Vol] 11.5 mmol/L Normal [facility] Comment on above: Performed By: #### C MP, T7, TSH, LIPID #### [facility] [address] [place] [address] Dr. Ravin Dior AST [Catalytic activity/Vol] 35 U/L Normal 15-37 [facility] Comment on above: Performed By: #### C MP, T7, TSH, LIPID #### [facility] [address] [place] [address] [address] Ravin Dior Bilirubin [Mass/Vol] 0.6 mg/dL Normal 0.2-1.0 [facility] Comment on above: Performed By: #### C MP, T7, TSH, LIPID #### [facility] [address] [place] [address] [address] Ravin Dior Calcium [Mass/Vol] 9.2 mg/dL Normal 8.5-10.1 [facility] Comment on above: Performed By: #### C MP, T7, TSH, LIPID #### [facility] [address] [place] [address] [address] Ravin Dior Chloride [Moles/Vol] 109 mmol/L Critically high 98-107 [facility] Comment on above: Performed By: #### C MP, T7, TSH, LIPID #### [facility] [address] [place] [address] [address] Ravin Dior CO2 [Moles/Vol] 27.7 mmol/L Normal 21.0-32.0 [facility] Comment on above: Performed By: #### C MP, T7, TSH, LIPID #### [facility] [address] [place] [address] Dr. Ravin Dior Creatinine [Mass/Vol] 0.94 mg/dL Normal 0.55-1.02 [facility] Comment on above: Performed By: #### C MP, T7, TSH, LIPID #### [facility] [address] [place] [address] Dr. Ravin Dior EGFR-AF ANGOLAN >60 Normal >=60 [facility] Comment on above: Performed By: #### C MP, T7, TSH, LIPID #### [facility] [address] [place] [address] Dr. Ravin Dior EGFR-NON AF ANGOLAN 58 mL/min/1.73m2 Critically low >=60 [facility] Comment on above: Performed By: #### C MP, T7, TSH, LIPID #### [facility] [address] [place] [address] Dr. Ravin Dior Globulin (S) [Mass/Vol] 4.7 g/dL Normal [facility] Comment on above: Performed By: #### C MP, T7, TSH, LIPID #### [facility] [address] [place] [address] Dr. Ravin Dior Glucose [Mass/Vol] 95 mg/dL Normal 74-106 [facility] Comment on above: Performed By: #### C MP, T7, TSH, LIPID #### [facility] [address] [place] [address] Dr. Ravin Dior Potassium [Moles/Vol] 4.2 mmol/L Normal 3.5-5.1 [facility] Comment on above: Performed By: #### C MP, T7, TSH, LIPID #### [facility] [address] [place] [address] Dr. Ravin Dior Protein [Mass/Vol] 8.0 g/dL Normal 6.4-8.2 [facility] Comment on above: Performed By: #### C MP, T7, TSH, LIPID #### [facility] [address] [place] [address] [address] Ravin Dior Sodium [Moles/Vol] 144 mmol/L Normal 136-145 [facility] Comment on above: Performed By: #### C MP, T7, TSH, LIPID #### [facility] [address] [place] [address] [address] Ravin Dior Urea nitrogen [Mass/Vol] 21.0 mg/dL Critically high 7.0-18.0 [facility] Comment on above: Performed By: #### C MP, T7, TSH, LIPID #### [facility] [address] [place] [address] [address] Ravin Dior Urea nitrogen/Creatinine [Mass ratio] 22.3 mg/mg Normal [facility] Comment on above: Performed By: #### C MP, T7, TSH, LIPID #### [facility] [address] [place] [address] [address] Ravin Dior TSHon 09-22-2022 TSH 2.085 uIU/mL Normal 0.358-3.740 [facility] Comment on above: Performed By: #### C MP, T7, TSH, LIPID #### [facility] [address] [place] [address] ABD/PELVIS WO CONon [...] was used, including Automated Exposure Control. FINDINGS: Cook Supervisor: No pertinent findings, which are not [...] the largest most superior hernia. Normal [facility] CBC AUTO DIFFon 05-17-2022 BASO # 0.0 103/ul Normal 0.0-0.1 [facility] Comment on above: Performed By: #### C BC ####[facility] [address] [place], [place] [address]QdViky Dior Basophils/100 WBC (Bld) 0.2 % Normal 0.2-2.0 [facility] Comment on above: Performed By: #### C BC ####[facility] [address] [place], [place] [address]HlViky Dior EO # 0.1 103/ul Normal 0.0-0.7 [facility] Comment on above: Performed By: #### C BC ####[facility] [address] [place] [address]Dr. Ravin Ovi Eosinophils/100 WBC (Bld) 1.4 % Normal 0.9-7.0 [facility] Comment on above: Performed By: #### C BC ####[facility] [address] [place], [place] [address]Dr. Ravin Dior Erythrocyte distribution width (RBC) [Ratio] 13.7 % Normal 11.0-15.0 [facility] Comment on above: Performed By: #### C BC ####[facility] [address] [place], [place] [address]Dr. Ravin Dior Hematocrit (Bld) [Volume fraction] 44.4 % Normal 36.0-48.0 [facility] Comment on above: Performed By: #### C BC ####[facility] [address] [place], [place] [address]Dr. Ravin Dior Hemoglobin (Bld) [Mass/Vol] 14.7 g/dL Normal 12.0-16.0 [facility] Comment on above: Performed By: #### C BC ####[facility] [address] [place], [place] [address]Dr. Ravin Dior IG # 0.05 10e3/ul Critically high 0.00-0.03 [facility] Comment on above: Performed By: #### C BC ####[facility] [address] [place], [place] [address]Dr. Ravin Dior IG % 0.5 % Normal 0.0-0.5 [facility] Comment on above: Performed By: #### C BC ####[facility] [address] [place], [place] [address]DrViky Dior LYMPH # 1.7 103/ul Normal 1.2-3.8 [facility] Comment on above: Performed By: #### C BC ####[facility] [address] [place], [place] [address]Dr. Ravin Dior Lymphocytes/100 WBC (Bld) 17.1 % Critically low 20.5-60.0 [facility] Comment on above: Performed By: #### C BC ####[facility] [address] [place] [address]DrViky Dior MANUAL DIFF REQ NO Normal [facility] Comment on above: Performed By: #### C BC ####[facility] [address] [place] [address]Dr. Ravin Dior MCH (RBC) [Entitic mass] 30.7 pg Normal 26.7-34.0 [facility] Comment on above: Performed By: #### C BC ####[facility] [address] [place], [place] [address]DrViky Dior MCHC (RBC) [Mass/Vol] 33.1 g/dL Normal 29.9-35.2 [facility] Comment on above: Performed By: #### C BC ####[facility] [address] [place], [place] [address]DrViky Dior MCV (RBC) [Entitic vol] 92.7 fL Normal 81.0-99.0 [facility] Comment on above: Performed By: #### C BC ####[facility] [address] [place], [place] [address]DrViky Dior MONO # 0.6 103/ul Normal 0.3-0.8 [facility] Comment on above: Performed By: #### C BC ####[facility] [address] [place], [place] [address]DrViky Dior Monocytes/100 WBC (Bld) 5.7 % Normal 1.7-12.0 [facility] Comment on above: Performed By: #### C BC ####[facility] [address] [place], [place] [address]DrViky Dior NEUT # 7.7 103/ul Critically high 1.4-6.5 [facility] Comment on above: Performed By: #### C BC ####[facility] [address] [place], [place] [address]DrViky Dior Neutrophils/100 WBC (Bld) 75.1 % Critically high 43.0-75.0 [facility] Comment on above: Performed By: #### C BC ####[facility] [address] [place] [address]DrViky Dior Platelet mean volume (Bld) [Entitic vol] 10.4 fL Normal 9.5-13.5 [facility] Comment on above: Performed By: #### C BC ####[facility] [address] [place], [place] [address]Dr. Ravin Dior PLT 294 103/ul Normal 150-450 [facility] Comment on above: Performed By: #### C BC ####[facility] [address] [place], [place] [address]Dr. Ravin Dior RBC 4.79 106/ul Normal 4.20-5.40 [facility] Comment on above: Performed By: #### C BC ####[facility] [address]xs[address] [place], [place] [address]DrViky Dior WBC 10.2 103/ul Normal 4.0-11.0 [facility] Comment on above: Performed By: #### C BC ####[facility] [address] [place], [place] [address]Dr. Ravin Dior ER URINE PROFILEon 2 Bilirubin Ql (U) Negative Normal NEGATIVE [facility] Comment on above: Performed By: #### DENY KAUFFMANRO #### [facility] [address] [place] [address] Dr. Ravin Dior Clarity (U) CLEAR Normal CLEAR [facility] Comment on above: Performed By: #### DENY KAUFFMANRO #### [facility] [address] [place] [address] Dr. Ravin Dior Color (U) LT. YELLOW Normal YELLOW [facility] Comment on above: Performed By: #### JAZ KAUFFMANICRO #### [facility] [address] [place] [address] Dr. Ravin Dior ERUAHD A micrscopic examination will be performed if indicated. Normal [facility] Comment on above: Performed By: #### DENY KAUFFMANRO #### [facility] [address] [place] [address] Dr. Ravin Dior Glucose Ql (U) Negative Normal NEGATIVE [facility] Comment on above: Performed By: #### DENY KAUFFMANRO #### [facility] [address] [place] [address] Dr. Ravin Dior Hemoglobin Ql (U) Negative Normal NEGATIVE [facility] Comment on above: Performed By: #### Tammy SUOTH UMICRO #### [facility] [address] [place] [address] Dr. Ravin Dior Ketones Ql (U) TRACE Abnormal NEGATIVE [facility] Comment on above: Performed By: #### Tammy SOUTH UMICRO #### [facility] [address] [place] [address] Dr. Ravin Dior LEUKOCYTES SMALL Abnormal NEGATIVE [facility] Comment on above: Performed By: #### DENY KAUFFMANRO #### [facility] [address] [place] [address] Dr. Ravin Dior Nitrite Ql (U) Negative Normal NEGATIVE [facility] Comment on above: Performed By: #### DENY KAUFFMANRO #### [facility] [address] [place] [address] Dr. Ravin Dior pH (U) 6.0 [pH] Normal 5-9 [facility] Comment on above: Performed By: #### DENY KAUFFMANRO #### [facility] [address] [place] [address] Dr. Ravin Dior SPEC GRAVITY 1.010 Normal 1.005-<=1.025 [facility] Comment on above: Performed By: #### DENY KAUFFMANRO #### [facility] [address] [place] [address] Dr. Ravin Dior UA PROTEIN Negative Normal NEGATIVE/ TRACE [facility] Comment on above: Performed By: #### DENY KAUFFMANRO #### [facility] [address] [place] [address] Dr. Ravin Dior UR MICRO IND INDICATED Normal [facility] Comment on above: Performed By: #### E JAZ SOUTHICRO #### [facility] [address] [address] [address] Ravin Dior Urobilinogen Qn (U) 0.2 {Chandler'U}/dL Normal 0.2 - 1. 0 [facility] Comment on above: Performed By: #### E DENY SOUTHRO #### [facility] [address] [address] [address] Ravin Dior LACTATE/LACTIC ACIDon 2021 Lactate [Moles/Vol] 1.3 mmol/L Normal 0.4-1.9 [facility] Comment on above: Performed By: #### L ACT ####[facility] [id number] [address]Dr. Ravin Dior LIPASEon 05-17-2022 Lipase [Catalytic activity/Vol] 63.0 U/L Critically low 73.0-393.0 [facility] Comment on above: Performed By: #### C MP, LIPA #### [facility] [address] [address] [address] Ravin Dior PROF 14(COMP METB)on 022 Albumin [Mass/Vol] 3.4 g/dL Normal 3.4-5.0 [facility] Comment on above: Performed By: #### C MP, LIPA #### [facility] [address] [place] [address] Dr. Ravin Dior Albumin/Globulin [Mass ratio] 0.8 {ratio} Normal [facility] Comment on above: Performed By: #### C MP, LIPA #### [facility] [address] [address] [address] Ravin Dior ALP [Catalytic activity/Vol] 143 U/L Critically high 46-116 [facility] Comment on above: Performed By: #### C MP, LIPA #### [facility] [address] [address] [address] Ravin Dior ALT [Catalytic activity/Vol] 29 U/L Normal 14-59 [facility] Comment on above: Performed By: #### C MP, LIPA #### [facility] [address] [address] [address] Ravin Dior Anion gap [Moles/Vol] 7.6 mmol/L Normal [facility] Comment on above: Performed By: #### C MP, LIPA #### [facility] [address] [place] [address] Dr. Ravin Dior AST [Catalytic activity/Vol] 39 U/L Critically high 15-37 [facility] Comment on above: Performed By: #### C MP, LIPA #### [facility] [address] [place] [address] Dr. Ravin Dior Bilirubin [Mass/Vol] 0.7 mg/dL Normal 0.2-1.0 [facility] Comment on above: Performed By: #### C MP, LIPA #### [facility] [address] [place] [address] Dr. Ravin Dior Calcium [Mass/Vol] 9.1 mg/dL Normal 8.5-10.1 [facility] Comment on above: Performed By: #### C MP, LIPA #### [facility] [address] [place] [address] Dr. Ravin Dior Chloride [Moles/Vol] 102 mmol/L Normal 98-107 [facility] Comment on above: Performed By: #### C MP, LIPA #### [facility] [address] [place] [address] Dr. Ravin Dior CO2 [Moles/Vol] 31.1 mmol/L Normal 21.0-32.0 [facility] Comment on above: Performed By: #### C MP, LIPA #### [facility] [address] [place] [address] Dr. Ravin Dior Creatinine [Mass/Vol] 0.88 mg/dL Normal 0.55-1.02 [facility] Comment on above: Performed By: #### C MP, LIPA #### [facility] [address] [place] [address] Dr. Ravin Dior EGFR-AF ANGOLAN >60 Normal >=60 [facility] Comment on above: Performed By: #### C MP, LIPA #### [facility] [address] [place] [address] Dr. Ravin Dior EGFR-NON AF ANGOLAN >60 Normal >=60 [facility] Comment on above: Performed By: #### C MP, LIPA #### [facility] [address] [address] [address] Ravin Dior Globulin (S) [Mass/Vol] 4.5 g/dL Normal [facility] Comment on above: Performed By: #### C MP, LIPA #### [facility] [address] [place] [address] Dr. Ravin Dior Glucose [Mass/Vol] 100 mg/dL Normal 74-106 [facility] Comment on above: Performed By: #### C MP, LIPA #### [facility] [address] [place] [address] Dr. Ravin Dior Potassium [Moles/Vol] 3.7 mmol/L Normal 3.5-5.1 [facility] Comment on above: Performed By: #### C MP, LIPA #### [facility] [address] [place] [address] Dr. Ravin Dior Protein [Mass/Vol] 7.9 g/dL Normal 6.4-8.2 [facility] Comment on above: Performed By: #### C MP, LIPA #### [facility] [address] [place] [address] Dr. Ravin Dior Sodium [Moles/Vol] 137 mmol/L Normal 136-145 [facility] Comment on above: Performed By: #### C MP, LIPA #### [facility] [address] [place] [address] Dr. Ravin Dior Urea nitrogen [Mass/Vol] 12.0 mg/dL Normal 7.0-18.0 [facility] Comment on above: Performed By: #### C MP, LIPA #### [facility] [address] [place] [address] Dr. Ravin Dior Urea nitrogen/Creatinine [Mass ratio] 13.6 mg/mg Normal [facility] Comment on above: Performed By: #### C MP LIPA #### [facility] [address] [place] [address] Dr. Ravin Dior URINE MICROSCOPIC ONLYon BACTERIA NONE SEEN Normal NONE SEEN [facility] Comment on above: Performed By: #### E RUR, UMICRO #### [facility] [address] [place] [address] Dr. Ravin Dior Bacteria identified Cx Nom (U) NOT INDICATED Normal [facility] Comment on above: Performed By: #### E RUR, UMICRO #### [facility] [address] [place] [address] Dr. Ravin Dior CAST NONE SEEN Normal NONE SEEN [facility] Comment on above: Performed By: #### E RUR, UMICRO #### [facility] [address] [place] [address] Dr. Ravin Dior Crystals LM Nom (Urine sed) NONE SEEN Normal NONE SEEN [facility] Comment on above: Performed By: #### E RUR, UMICRO #### [facility] [address] [place] [address] Dr. Ravin Dior Epithelial cells LM Ql (Urine sed) FEW Abnormal NONE SEEN /RARE [facility] Comment on above: Performed By: #### E RUR, UMICRO #### [facility] [address] [place] [address] Dr. Ravin Dior MUCOUS NONE SEEN Normal NONE SEEN [facility] Comment on above: Performed By: #### E RUR, UMICRO #### [facility] [address] [place] [address] Dr. Ravin Dior RBC NONE SEEN Abnormal 0-2 [facility] Comment on above: Performed By: #### E RUR, UMICRO #### [facility] [address] [place] [address] Dr. Ravin Dior WBC 0-2 Abnormal NONE SEEN [facility] Comment on above: Performed By: #### E RUR, UMICRO #### [facility] [address] [address] [address] Ravin Dior Ambulatory Clinical Summaryo n 07-24-2020 Ambulatory Clinical Summary {[id number] Normal Travis [facility] G[facility]ology Office/Clin ic Noteon 07-24-2020 Gastroenterology Office/Clinic [...] # 28 cap(s), Refills(s) 0, Pharmacy: [facility]/pharmacy #[id number], 165, cm, 07/24/20 12:03:00 EST, Height/Length Dosing, 95.9, kg, 07/24/20 12:03:00 EST, Weight Dosing metronidazole, 250 mg = 1 tab(s), Oral, TID, X 7 day(s), # 21 tab(s), Refills(s) 0, Pharmacy: [facility]/pharmacy #[id number], 165, cm, 07/24/20 12:03:00 EST, [...] # 160 cap(s), Refills(s) 1, Pharmacy: [facility]/pharmacy #[id number], 165, cm, 07/24/20 12:03:00 EST, Height/Length Dosing, 95.9, kg, 07/24/20 12:03:... Orders: pantoprazole, 40 mg = 2 tab(s), Oral, Daily, X 90 day(s), # 180 tab(s), Refills(s) 3, Pharmacy: [facility]/pharmacy #[id number], 165, cm, 07/24/20 12:03:00 EST, Height/Length Dosing, 95.9, kg, 07/24/20 12:03:00 EST, Weight Dosing Follow-up With When Contact Information Isabelle Ramirez MD In 12 months [address] [place] [address]- Additional Instructions: Problem List/Past Medical [...] 12/16/2018 Exercise - Occasional exercise, 12/16/2018 Other Vujbtmlj-1-4 cups blair;y, 12/16/2018 Substance Abuse - Denies Substance Abuse, 12/16/2018 Tobacco Never (less than 100 in lifetime) Tobacco Use:., 07/24/2020 Never (less than 100 in lifetime) Tobacco Use:. Never Smokeless Tobacco Use:., 02/01/2019 [facility] Comment on above: Result Comment: Elec tronically Signed By: [place] Mccauley MD, Isabelle\.benrie\Date and Time Signed: 07/24/20 13:13 EST Auth for Release of Medical Recordson 02-09-2020 Auth for Release of Medical Records [id number]:127 [facility] January 24, 2020 SAUL GUTIÉRREZ [address] [place] [address] SAUL GUTIÉRREZ 1945 Dear Saul, This is a reminder that you are due for an appointment with Dr. Garland or Dr. Mccauley. Please call [facility] at [phone] to schedule an appointment at your earliest convenience. Thank you, [facility] Encounters Encounter Date Encounter Type Care Provider Facility Start: 02-08-2024 End: 02-08-2024 ambulatory [facility] Start: 01-18-2024 ambulatory [facility] Start: 01-17-2024 End: 01-17-2024 ambulatory CARIDAD GARNER Not Available Start: 01-11-2024 End: 01-11-2024 ambulatory SANDIE PAGE Not Available Start: 01-05-2024 ambulatory [facility] Start: 12-20-2023 End: 12-20-2023 ambulatory SANDIE PAGE Not Available Start: 12-16-2023 ambulatory [facility] Start: 12-01-2023 End: 12-01-2023 ambulatory ADELAIDA RIZO [facility] Start: 11-25-2023 ambulatory SHAYY ORTIZ [facility] Start: 11-24-2023 ambulatory [facility] Start: 11-23-2023 ambulatory [facility] Start: 11-23-2023 Encounter for preprocedural cardiovascular examination [facility] Start: 11-11-2023 End: 11-11-2023 ambulatory SHAR GARCÍA Not Available Start: 11-01-2023 ambulatory [facility] Start: 11-01-2023 End: 11-01-2023 ambulatory [facility] Start: 08-10-2023 End: 08-10-2023 ambulatory [facility] Start: 07-14-2023 End: 07-14-2023 ambulatory ADELAIDA RIZO [facility] Start: 07-05-2023 ambulatory [facility] Start: 07-05-2023 End: 07-05-2023 ambulatory [facility] Start: 06-05-2023 Refill Mac Lujan sser GAMING ASSOCIATE-GEOSPATIAL TECHNOLOGIST Work Phone: [facility] Comment on above: Med Refill Start: 05-18-2023 End: 05-18-2023 ambulatory [facility] Start: 03-23-2023 End: 03-26-2023 ambulatory [facility] Start: 09-22-2022 End: 09-23-2022 ambulatory HEAVEN [...] Adult BMI Screening Adult BMI Screen ing [facility] Start: 08-25-2023 Tobacco Screening Tobacco Screening [facility] Start: 01-29-2023 COVID-19 Vaccine ( season) COVID-19 Vaccine ( season) [facility] Start: 01-29-2023 Influenza vaccination Influenza Vacc ine [facility] Start: 11-03-2022 ambulatory Ambulatory Facility:H 1 Start: 2010 Fall Risk Screening Fall Risk Screen ing [facility] Start: 1995 Administration of varicella zoster vaccine Zoster (Shingles) Vaccine (1 of 2) [facility] Start: 1964 DTaP,Tdap and Td Vac cines (1 - Tdap) DTaP,Tdap and Td Vaccines (1 - Tdap) [employer] Start: 1963 Adult BMI Follow Up Plan Adult BMI Follow Up Plan [employer] Start: 1957 Depression Screening Depression Scre laura [employer] Start: 1945 Medicare Annual Well ness Visit Medicare Annual Wellness Visit [employer] End: 06-08-2024 Basic metabolic 2000 panel - Serum or Plasma Basic Metabolic Panel Lab Routine Essential hypertension 1 Occurrences starting 06/08/2023 until 06/08/2024 [employer] Work Phone: Comment on above: 1 Occurrences starti ng 06/08/2023 until 06/08/2024 Immunizations Immunization Date Immunization Notes Care Provider Tutu rehman 05-08-2021 influenza virus vaccine, unspecified formulation Mac Erwin GAMING ASSOCIATE-GEOSPATIAL TECHNOLOGIST [facility] Payers Date Payer Category Payer Medicare HUMANA MEDICARE HU[place] [id number] 2013-Present [phone] [address] [address] [place] [address] [id number] 1959 Medicare [id number] 1945 Unknown [id number] 1945 Unknown [id number] 1945 Unknown [id number] 1945 Unknown [id number] 1945 Unknown [id number] 1945 Unknown [id number] 1945 Unknown [id number] 1945 Unknown [id number] [id number] 9 1945 Unknown [id number] [id number] 9 1945 Unknown [id number] 9 1945 Unknown [id number] 9 Social History Date Type Detail Facility Start: 05-26-2022 Tobacco smoking stat [facility] Never smoked tobacco [facility] Start: 05-26-2022 Tobacco use and exposure Smoke less tobacco non-user [facility] Start: 08-24-2022 Alcohol intake 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) [facility] Start: 07-04-2020 End: 08-24-2022 History of Social function [facility] Start: 07-04-2020 End: 08-24-2022 Tobacco use panel [facility] Housing Instability Unknown [facility] Start: 1945 Sex Assigned At Not on file [facility] Medical Equipment Procedure Code Equipment Code Equipment Origin al Text Equipment Identifier Dates Mesh [id number] 3d Rect Plstr Clgn Symbotex 2 Sd Comp Mfl Babsr Rpl [id number] - Sna - [id number] Start: 06-30-2022 Dev Clsr 30fr Watchman 30mm - [id number] Start: 10-28-2018 Clinical Notes 12-24-2021 to 02-14-2024 Note Date & Type Note Facility 02-14-2024 Note [facility]= [facility] 02-11-2024 Note RCRI= 2 points Class III Risk 10.1 % 30-day risk of , AL, or cardiac arrest From a cardiac perspective pt may proceed with planned surgery, she is a moderate risk for a moderate risk orthopedic surgery. She may hold Aspirin 5-7 days prior and resume post op. Please monitor hemodynamics carefully and prevent any major fluid shifts. Adelaida Darrius [facility] Cardiology Available 7a-5pm via [employer] Chat Pager [phone] [facility] 12-01-2023 Note Currently pt is doin g quite well s/p recent AV node ablation Remains V paced with BI-V AICd [facility] 12-01-2023 Note [facility]TP CARDIOLOGY PROGR ESS [...] [facility]. She was initially seen by Dr. [...] Conjunctiva/sclera: Conjunctivae normal. (more content not included)... [facility] 12-01-2023 Note Patient here for fol low up AV node ablation performed on 11/01/[address] Madden. She denies chest pain, SOB, palpitations, and lightheadedness/syncope. Review of Systems Musculoskeletal: Positive for arthritis and back pain. All other systems reviewed and are negative. [facility] 11-01-2023 Note AV NODE ABLATION PRO CEDURE REPORT DATE OF PROCEDURE: 11/01/2023 PERFORMING PHYSICIAN: Dr. Robert Madden SHOE DRESSER: TOÑA CONSENT: Patient NAME OF THE PROCEDURE: [...] She was previously seen by [facility] cardiology. She was initially seen by [...] Continue anticoagulation. Robert Madden MD Cardiac Electrophysiology. [facility] 11-01-2023 Note Patient: Saul mcghee Procedure Information Date/Time: 11/01/23829 Procedure: AV node ablation Location: [facility] PROFESSOR OF RELIGION 1 EP / [facility] HV VASCULAR LAB (Cath) Providers: Robert Madden MD Clinical information reviewed: Tobacco Allergies Meds Med Hx Surg Hx OB Status Fam Hx Physical Exam Airway Mallampati: II TM distance: >3 FB Neck ROM: full Cardiovascular Dental Pulmonary Abdominal Anesthesia Plan ASA 2 CSE Anesthetic plan and risks discussed with patient. Use of blood products discussed with patient who. Additional Equipment Requests [facility] 11-01-2023 Note [facility] Consult Note Reason for visit: Afib [...] [facility] She was initially seen by Dr. [...] on file Intimate Partner Violence: Unknown (07/23/2023) [facility] Fear of Current or [...] 50 mg tab (more content not included)... [facility] 08-27-2023 Note ca [facility] 07-14-2023 Note stable [facility] 07-14-2023 Note Patient here for wou nd check s/p BiV ICD implant on 07/05/[address] Madden. [facility] 07-14-2023 Note UTP CARDIOLOGY PROGR ESS [...] She was previously seen by [facility] cardiology. She was initially seen by [...] Neurological: General: No (more content not included)... [facility] 07-14-2023 Note Site well approximat ed and healing well No s/s of infection or hematoma, + ecchymosis noted [facility] 07-14-2023 Note -[id number]-K[facility] at [facility] 5 for age x2, gender, hypertension, CHF, on aspirin s/p watchmen Continue meds as prescribed [facility] 07-05-2023 Note REAL ESTATE ASSISTANT-D IMPLANT PROCED URE NOTE DATE OF PROCEDURE: 07/05/2023 PERFORMING PHYSICIAN: Dr. Robert Madden SHOE DRESSER: TOÑA CONSENT: Patient LOCATION: [employer] PROCEDURE PERFORMED: 1. Implantation of Biventricular ICD ([employer]). 2. U/S venous access 3. Coronary [...] [facility]. She was initially seen by Dr. [...] occasions using seldinger technique using a 5 Greek micropunture needle and exchanged for 0.034 wire. I decided to proceed with opening of the pocket. Localinfiltration of 1% Lidocaine was performed and an incision was created in the left upper chest. Dissection was then performed using cautery down. An active fixation [employer] ICD lead was then delivered through the 8F sheath to the right ventricle. After confirmation of lead position on orthogonal views (BECK and SLOVENIAN) to confirm position in the septal aspect, [...] The leads were then attached to a [employer] REAL ESTATE ASSISTANT-D device with atrial ort capped and the [...] Patient was hemodynamically (more content not included)... [facility] 07-05-2023 Note Patient: Saul mcghee Procedure Information Date/Time: 07/05/23 1400 Procedure: Implant ICD - biventricular Location: [facility] PROFESSOR OF RELIGION 1 / [facility] HV VASCULAR LAB (Cath) Providers: Robert Madden MD Clinical information reviewed: Allergies Meds Physical Exam Airway Mallampati: II TM distance: >3 FB Neck ROM: full Cardiovascular Dental Pulmonary Abdominal Anesthesia Plan ASA 2 CSE Anesthetic plan and risks discussed with patient. Use of blood products discussed with patient who. Additional Equipment Requests [facility] 05-18-2023 Note [facility] Consult Note Reason for visit: Afib [...] She was previously seen by [facility] cardiology. She was initially seen by [...] Appearance: well-nourished, we (more content not included)... [facility] 03-23-2023 Note [facility] Consult Note Reason for visit: Afib HPI: Saul Gutiérrez is a 77 y.o. year old with past medical history of HFrEF with EF of 35% as per an echocardiogram in May 2022, nonobstructive coronary artery disease as per cath on 01/05/2023 who previously had undergone a Watchman procedure in 2019 due to GI bleed. She was previously seen by [facility] cardiology. She was initially seen by [...] no cyanosis, no (more content not included)... [facility] 07-23-2022 Note PAIN MANAGEMENT CONS ULTATION [...] months' time or sooner if needed. [facility] 03-26-2022 Note CONSULTATION CONSULTATION DATE: 03/26/2022 [...] agrees with the plan of care. [facility] 12-24-2021 Note CONSULTATION PROCEDURE DATE: 12/24/2021 [...] the procedure well with no complications. [facility] 12-24-2021 Note CONSULTATION CONSULTATION DATE: 12/24/2021 [...] three months' time, unless otherwise indicated. [facility] Evaluation note Diagnosis Essential hypertension- Primary Unspecified essential hypertension documented [facility] this encounter [facility] filed[facility] in [facility] Summary Purpose Family History No Family History Records FoundNo Family History Records FoundNo Family History Records FoundNo Family History Records Found Advance Directives No Advanced Directives Records FoundNo Advanced Directives Records FoundNo Advanced Directives Records FoundNo Advanced Directives Records Found Additional Source Comments INFORMATION SOURCE (unrecogn ized section and content) DATE CREATED AUTHOR 07/25/2020 Travis Cordova [facility] DATE CREATED AUTHOR AUTHOR'S ORGANIZ ATION [facility]/12/2022 [facility] DATE CREATED AUTHOR AUTHOR'S ORGANIZ ATION 01/17/2024 [facility] EPIC DATE CREATED AUTHOR AUTHOR'S ORGANIZ ATION 02/16/2024 [facility] Reason for Visit (unrecogniz ed section and content) Reason Comments Med Refill Care Teams (unrecognized sec tion and content) Director Of Rehabilitation And Wellness Relationship Specialty Start Date End Date Heaven Staley, GAMING ASSOCIATE-GEOSPATIAL TECHNOLOGIST [address] [place] [id number] PCP - General Family Medicine 10/30/21 FOR [...] BE BASED ON THE PRIMARY CLINICAL RECORDS. [employer] provides no warranty or guarantee of the accuracy or completeness of information in this document.
[2024-02-22 09:18] LABS: Alanine Aminotransferase 26 U/L (14-59); Albumin Globulin Ratio 0.9; Albumin Level 3.2 g/dL (3.4-5.0); Alkaline Phosphatase 117 U/L (46-116); Anion Gap 10.6; Aspartate Amino Transferase 20 U/L (15-37); BUN Creatinine Ratio 34.6; Bilirubin Total 0.6 mg/dL (0.2-1.0); Calcium 8.9 mg/dL (8.5-10.1); Chloride 108 mmol/L (98-107); Estimated GFR (African America 37 (>=60); Estimated GFR (Non-African Ame 31 (>=60); Globulin 3.6 g/dL; Glucose 84 mg/dL (74-106); Potassium 4.6 mmol/L (3.5-5.1); Sodium 141 mmol/L (136-145); Total Protein 6.8 g/dL (6.4-8.2)
== END 2024-02-22 08:33 | disposition home or self-care (01) ==
LOC: LAB 08:33
PROVIDERS: PCP Nurse Practitioner Family; Visit Provider Nurse Practitioner Family
DX: M54.50 Low back pain, unspecified (principal); N28.9 Disorder of kidney and ureter, unspecified
CPT/HCPCS: 36415; 80053; 80323

== ENCOUNTER 2024-04-03 07:47 | Outpatient (OUT) | payer MEDICARE, SELFPAY ==
--- NOTE | 2024-04-03 08:35 | CA_ITS ---
Patient Name: SAUL GUTIÉRREZ MR#: [id number] : 1945 Exam Date: 04/03/2024 Ordering Doctor: BIRD SHOEMAKER ECHOCARDIOGRAM REPORT PROCEDURE: CA ECHO DOPPLER COMPLETE INDICATIONS: Atrial fibrillation/flutter I48.19 COMPARISON: None. DESCRIPTION: COMPLETE ECHOCARDIOGRAM Real-time transthoracic echocardiography with 2D, M-mode, spectral and color flow Doppler performed. QUALITY: Technical quality was good. LEFT VENTRICLE: Normal chamber size. Mild concentric left ventricular hypertrophy. Left ventricular ejection fraction is lower limits of normal. LV EF: Ejection fraction is estimated at 50 to 55%. DIASTOLIC: Not adequately assessed due to heart rhythm. ATRIAL SEPTUM: LEFT ATRIUM: Severe dilatation. RIGHT ATRIUM: Moderate dilatation. RIGHT VENTRICLE: Normal chamber size. Normal right ventricular systolic function. Pacer wire present. TRICUSPID VALVE: Normal mobility and thickness. No stenosis with trivial regurgitation. No evidence of pulmonary hypertension. RVSP 33 mmHg MITRAL VALVE: Normal mobility and thickness. No evidence of mitral valve stenosis. Mild mitral annular calcification. Mild mitral regurgitation. AORTIC VALVE: Normal trileaflet appearance. Mildly calcified aortic valve. Normal leaflet mobility. No evidence of aortic valve stenosis. Trivial aortic regurgitation. AORTIC ROOT: Normal diameter and appearance. Mild dilatation of the ascending aorta measuring 3.8 cm. PULMONIC VALVE: Normal thickness and mobility. No stenosis. No regurgitation. PERICARDIUM: No evidence of pericardial effusion. IVC: Collapses with inspirations. Normal size. PLEURA: CONCLUSION: 1. Mild concentric left regular hypertrophy with low normal systolic function. LVEF is estimated at 50 to 55%. 2. The right ventricle is normal in size and systolic function. 3. Moderate severe biatrial dilatation. 4. Mild mitral regurgitation. 5. Normal right-sided pressures. 6. Mildly dilated ascending aorta. Adult Echocardiography Procedure Report Left Ventricle LVEDD (3.7 - 5.6 cm): 4.79 cm LVESD (2.2 - 4.0 cm): 4.06 cm LVIVS thickness (0.6 - 1.2 cm): 1.17 cm LVPW thickness (0.5 - 1.0 cm): 1.21 cm e': 0.09 m/s E - e': 11.98 LVOT Max Gradient: 1.93 mm[Hg], 2.18 mm[Hg] LVOT Area (cm2): 0.72 m/s Peak Velocity (LVOT): 0.70 m/s, 0.74 m/s Mean Velocity (LVOT): 0.57 m/s LVOT Diameter 2.13 cm Left Ventricular Ejection Fraction: 50-55 % Left Atrium LA Volume Index (2D A2C): 83.81 ml/m2 Left Atrium Systolic Dimension: 4.95 cm Mitral Valve Mitral Valve E-Wave Peak Velocity: 1.10 m/s Right Ventricle RV Internal Diastolic Dimension: 4.10 cm Aorta AO Root Diam: 3.62 cm Ascending Ao Diam: 3.77 cm Aortic Valve AoV Area (Peak Rob): 1.99 cm2, 1.93 cm2 AoV Area (VTI): 1.89 cm2, 2.01 cm2 Peak Velocity(Antegrade Flow): 1.29 m/s Peak Gradient(Antegrade Flow): 6.64 mm[Hg] Mean Velocity(Antegrade Flow): 0.86 m/s Mean Gradient(Antegrade Flow): 3.39 mm[Hg] Velocity Time Integral: 30.85 cm Tricuspid Valve Peak Velocity (Regurgitant Flow): 2.18 m/s, 2.67 m/s, 2.74 m/s Pulmonic Valve Mean Gradient: 1.99 mm[Hg] Mean Velocity: 0.65 m/s Peak Velocity: 1.09 m/s Peak Gradient: 4.74 mm[Hg] Right Atrium Right Atrium Systolic Pressure: 79.46 ml, 79.46 ml Dictated by: Óscar Maurice M.D. on 04/04/2024 at 18:35 Approved by: Óscar Maurice M.D. on 04/04/2024 at 18:39
== END 2024-04-03 07:48 | disposition home or self-care (01) ==
LOC: CARD 07:48
PROVIDERS: PCP Nurse Practitioner Family; Visit Provider Internal Medicine Cardiovascular Disease
DX: I48.19 Other persistent atrial fibrillation (principal)
CPT/HCPCS: 93306; 93356

== ENCOUNTER 2024-04-14 10:15 | Outpatient (OUT) | payer MEDICARE, SELFPAY ==
--- NOTE | 2024-04-14 | XR_ITS ---
The [address] [address] Patient Name: SAUL GUTIÉRREZ MRN: [id number] date: 1945 Sex: F Assigned Patient Location: Current Patient Location: Accession/Order Number: [id number] Exam Date: 04/14/2024 10:17 Report Date: 04/18/2024 09:12 At the request of: AVANI BURROWS Procedure: XR lumbar spine 2-3V EXAMINATION: XR lumbar spine 2-3V HISTORY: LUMBAR SPINE PAIN COMPARISON: XR lumbar spine 02/10/2024 FINDINGS: BONES: Mechanical fusion of L3-S1 via bilateral pedicle screws and rods; no appreciable hardware fracture loosening. Posterior decompression L3, L4, and L5. Minimal left convex curvature. No significant anterior-posterior listhesis. DISC SPACES: Moderate narrowing and intervertebral disc spacer L3-4. Moderate narrowing L4-5. Marked narrowing L5-S1. PARASPINOUS: Negative. No paraspinous abnormality is seen. OTHER: Negative. XR/XR lumbar spine 2-3V IMPRESSION: 1. Surgical revision since prior study with posterior mechanical fusion L3-S1. No appreciable hardware failure. 2. Multilevel degenerative changes; grossly stable. Electronically authenticated by: OSWALDO NUGENT Date: 04/18/2024 09:12
--- OUTSIDE RECORDS SUMMARY | 2024-04-14 10:39 | XMS_ITS | CCD ---
Author Organization [facility] CliniSynd Care Team Providers Care Pecan Cleaner Name Role Phone JOHNSON ., DR JAYLON Ruelas Admitting Unavailable ORNELAS ., DR JAYLON Ruelas Attending Unavailable LUÍS, HEAVEN Primary Care Unavailable ORNELAS ., DR JAYLON Ruelas Consulting Unavailable MICHELINE MOLINA Consulting Unavailable JONHSON ., DR JAYLON Ruelas Admitting Unavailable ORNELAS ., DR JAYLON Ruelas Attending Unavailable [facility] Primary Care Unavailable RODRIGUEZ ., SABRINA Consulting Unavailable ORNELAS ., DR JAYLON Ruelas Admitting Unavailable ORNELAS ., DR JAYLON Ruelas Attending Unavailable [facility] Primary Care Unavailable RODRIGUEZ ., SABRINA Consulting Unavailable [facility] Primary Care Unavailable LAKSHMIPATHY ., NARENDRANATH Admitting Charity vailable LAKSHMIPATHY ., NARENDRANATH Attending Charity vailable LAKSHMIPATHY ., NARENDRANATH Consulting Charity vailable LAKSHMIPATHY ., NARENDRANATH Admitting Charity vailable LAKSHMIPATHY ., NARENDRANATH Attending Charity vailable [facility] Primary Care Unavailable LUÍS, HEAVEN Admitting Unavailable LUÍS, HEAVEN Attending Unavailable [facility] Primary Care Unavailable DR SHAR VALENZUELA Consulting Unavailable LUÍS, HEAVEN Consulting Unavailable [facility] Primary Care Unavailable DAREK ., KEILY Admitting Unavailable DAREK ., KEILY Attending Unavailable DAREK ., KEILY Consulting Unavailable KELSIE DEL ANGEL Consulting Unavailable Luís BURGER-Heaven JOHNSTON Primary Care Provider SHAR GARCÍA Attending Unavailable SANDIE PAGE Attending Unavailable HEAVEN STALEY Referring Unavailable SANDIE PAGE Attending Unavailable CARIDAD GARNER Attending Unavailable ROBERT MADDEN Referring Unavailable ROBERT MADDEN Attending Unavailable ROBERT MADDEN Admitting Unavailable SHAYY ORTIZ Referring Unavailable ROBERT MADDEN Referring Unavailable ROBERT MADDEN Referring Unavailable ROBERT MADDEN Referring Unavailable NAVID, ROBERT Referring Unavailable NAVID, ROBERT Referring Unavailable NAVID, ROBERT Attending Unavailable NAVID, ROBERT Admitting Unavailable NAVID, ROBERT Referring Unavailable NAVID, ROBERT Attending Unavailable NAVID, ROBERT Attending Unavailable DARRIUS, ADELAIDA Attending Unavailable NAVID, ROBERT Referring Unavailable NAVID, ROBERT Referring Unavailable NAVID, ROBERT Referring Unavailable NAVID, ROBERT Referring Unavailable DARRIUS, ADELAIDA Attending Unavailable DIANA, SHAYY Referring Unavailable NAVID, ROBERT Referring Unavailable NAVID, ROBERT Referring Unavailable NAVID, ROBERT Referring Unavailable Allergies Allergy Classification Reported Allergen(s) Allergy Type Date of Onset Reaction(s) Facility (2 sources) Codeine; Translations: [CODEINE] Drug Allergy 06-06-2014 [facility] Repository (1 source) Codeine Drug Allergy 06-06-2014 [facility] (2 sources) Lisinopril; Translations: [LISINOPRIL] Drug Allergy 10-19-2014 [facility] (1 source) pregabalin; Translations: [PREGABALIN] Drug Allergy 12-01-2023 [facility] Repository Medications Current Medications Medication Drug [...] 30 tablet 1 06/08/2023 Active lactobacillus acidophilus [id number] unt oral capsule (1 source) take 1 [...] Translations: [Other persistent atrial fibrillation] Onset: 12-01-2023 Past or Other Problems Problem Classification Problem [...] 10-11-2020 Episodic Other aftercare (1 source) 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 Will try again on Wednesday morning. [facility] Documentationon 02-11-2024 Documentation [id number] Saul Gutiérrez 1945 F Date Provider Department Center 02/11/2024 ADELAIDA VALENCIA MAGNUS [place] Family History Problem Relation Age of Onset Heart failure Father Family Status - Relation Status Age at Father [facility] 36on 02-08-2024 36 Patient had her [...] until 03/21. Please advise. Thanks. [facility] Telephoneon 02-08-2024 Telephone [id number] Saul Gutiérrez 1945 F Date Provider Department [place] 02/08/2024 CARIDAD HENAO MAGNUS [place] Family History Problem Relation Age of Onset Heart failure Father Family Status - Relation Status Age at Father [facility] Office Visiton 12-01-2023 Follow-up visit [id number] Saul Gutiérrez 1945 Date Provider Department Center 12/01/2023 ADELAIDA VALENCIA Family History Problem Relation Age of Onset Heart failure Father Family Status - Relation Status Age at Father Level of Service:49390 SD POSTOP FOLLOW UP VISIT RELATED TO ORIGINAL PX [facility] HPon 11-01-2023 [facility] Electrophysiology Consult Note Reason for visit: [...] GI bleed. She was previously seen by [facility] cardiology. She was initially seen by [...] on file Intimate Partner Violence: Unknown (07/23/2023) [place] Safety & Environment Fear of Current or [...] tab (more content not included)... [facility] NURSNOTEon 11-01-2023 NURSNOTE RN educated pt on d/ c instructions. RN encouraged pt to voice any questions or concerns. Pt verbalizes no questions or concerns at this time. [facility] Orders Onlyon 10-22-2023 Orders Only [id number] Saul Gutiérrez 1945 F Date Provider Department Center 10/22/2023 DEMOND RAMOS [facility] [place] [facility] Family History Problem Relation Age of Onset Heart failure Father Family Status - Relation Status Age at Father [facility] Orders Onlyon 08-27-2023 Orders Only [id number] Saul Gutiérrez 1945 F Date Provider Department Center 08/27/2023 LEATHA BAHENA MAGNUS [place] Family History Problem Relation Age of Onset Heart failure Father Family Status - Relation Status Age at Father [facility] Office Visiton 07-14-2023 Follow-up visit [id number] Saul Gutiérrez 1945 F Date Provider Department Center 07/14/2023 ADELAIDA VALENCIA [facility] Family History Problem Relation Age of Onset Heart failure Father Family Status - Relation Status Age at Father Level of Service:19726 [place] POSTOP FOLLOW UP VISIT RELATED TO ORIGINAL PX [facility] HPon 07-05-2023 [facility] Electrophysiology Consult Note Reason for visit: [...] GI bleed. [facility] She was initially seen by Dr. [...] Appearance: well-nourished, we (more content not included)... [facility] NURSNOTEon 07-05-2023 NURSNOTE RN educated pt on d/ c instructions. RN encouraged pt to voice any questions or concerns. Pt verbalizes no questions or concerns at this time. Pt was wheeled off of unit with all of belongings. [facility] NURSNOTE CHG wipes and betadine nasal swabs completed. [facility] Orders Onlyon 07-05-2023 Orders Only [id number] Saul Gutiérrez 1945 F Date Provider Department Center 07/05/2023 ELENA ATWOOD [facility] [place] [facility] Family History Problem Relation Age of Onset Heart failure Father Family Status - Relation Status Age at Father [facility] Office Visiton 05-18-2023 Follow-up visit [id number] Saul Gutiérrez 1945 F Provider Department Center 05/18/2023 [facility] Family History Problem Relation Age of Onset Heart failure Father Family Status - Relation Status Age at Father Level of Service:66744 SD OFFICE/OUTPATIENT ESTABLISHED MOD MDM 30 MIN (GC) [facility] INSULINon 09-23-2022 Insulin 7.9 uIU/mL Normal 2.6-24.9 [facility] Comment on above: Performed By: #### I NSULIN ####[facility] [address] [place] [address]DrViky Dior CBC AUTO DIFFon 09-22-2022 BASO # 0.0 103/ul Normal 0.0-0.1 [facility] Comment on above: Performed By: #### C BC ####[facility] [address] [place] [address]DrViky Dior Basophils/100 WBC (Bld) 0.4 % Normal 0.2-2.0 [facility] Comment on above: Performed By: #### C BC ####[facility] [address] [place], [place] [address]DrViky Dior EO # 0.6 103/ul Normal 0.0-0.7 [facility] Comment on above: Performed By: #### C BC ####[facility] [address] [place], [place] [address]Dr. Ravin Dior Eosinophils/100 WBC (Bld) 6.6 % Normal 0.9-7.0 [facility] Comment on above: Performed By: #### C BC ####[facility] [address] [place], [place] [address]Dr. Ravin Dior Erythrocyte distribution width (RBC) [Ratio] 16.2 % Critically high 11.0-15.0 [facility] Comment on above: Performed By: #### C BC ####[facility] [address] [place], [place] [address]Dr. Ravin Dior Hematocrit (Bld) [Volume fraction] 43.3 % Normal 36.0-48.0 [facility] Comment on above: Performed By: #### C BC ####[facility] [address] [place], [place] [address]Dr. Ravin Dior Hemoglobin (Bld) [Mass/Vol] 13.4 g/dL Normal 12.0-16.0 [facility] Comment on above: Performed By: #### C BC ####[facility] [address] [place], [place] [address]DrViky Dior IG # 0.05 10e3/ul Critically high 0.00-0.03 [facility] Comment on above: Performed By: #### C BC ####[facility] [address] [place], [place] [address]Dr. Ravin Dior IG % 0.5 % Normal 0.0-0.5 [facility] Comment on above: Performed By: #### C BC ####[facility] [address] [place], [place] [address]Dr. Ravin Dior LYMPH # 2.1 103/ul Normal 1.2-3.8 [facility] Comment on above: Performed By: #### C BC ####[facility] [address] [place] [address]DrViky Dior Lymphocytes/100 WBC (Bld) 23.1 % Normal 20.5-60.0 [facility] Comment on above: Performed By: #### C BC ####[facility] C[address] [place], [place] [address]DrViky Dior MANUAL DIFF REQ NO Normal [facility] Comment on above: Performed By: #### C BC ####[facility] [address] [place], [place] [address]DrViky Dior MCH (RBC) [Entitic mass] 29.5 pg Normal 26.7-34.0 [facility] Comment on above: Performed By: #### C BC ####[facility] [address] [place], [place] [address]Dr. Ravin Dior MCHC (RBC) [Mass/Vol] 30.9 g/dL Normal 29.9-35.2 [facility] Comment on above: Performed By: #### C BC ####[facility] [address] [place], [place] [address]DrViky Dior MCV (RBC) [Entitic vol] 95.4 fL Normal 81.0-99.0 [facility] Comment on above: Performed By: #### C BC ####[facility] [address] [place], [place] [address]DrViky Dior MONO # 0.5 103/ul Normal 0.3-0.8 [facility] Comment on above: Performed By: #### C BC ####[facility] [address] [place], [place] [address]DrViky Dior Monocytes/100 WBC (Bld) 5.8 % Normal 1.7-12.0 [facility] Comment on above: Performed By: #### C BC ####[facility] [address] [place], [place] [address]DrViky Dior NEUT # 5.8 103/ul Normal 1.4-6.5 [facility] Comment on above: Performed By: #### C BC ####[facility] [address] [place] [address]Dr. Ravin Dior Neutrophils/100 WBC (Bld) 63.6 % Normal 43.0-75.0 [facility] Comment on above: Performed By: #### C BC ####[facility] [address] [place] [address]Dr. Ravin Dior Platelet mean volume (Bld) [Entitic vol] 10.7 fL Normal 9.5-13.5 [facility] Comment on above: Performed By: #### C BC ####[facility] [address] [place] [address]DrViky Dior PLT 223 103/ul Normal 150-450 [facility] Comment on above: Performed By: #### C BC ####[facility] [address] [place] [address]DrViky Dior RBC 4.54 106/ul Normal 4.20-5.40 [facility] Comment on above: Performed By: #### C BC ####[facility] [address] [place] [address]DrViky Dior WBC 9.2 103/ul Normal 4.0-11.0 [facility] Comment on above: Performed By: #### C BC ####[facility] [address] [place] [address]DrViky Dior FREE THYROXINE INDEX T7on FTI 2.44 Normal 1.30-4.50 [facility] Comment on above: Performed By: #### C MP, T7, TSH, LIPID #### [facility] [address] [place] [address] [address] Ravin Dior T3U 33.0 % Normal 30.0-39.0 [facility] Comment on above: Performed By: #### C MP, T7, TSH, LIPID #### [facility] [address] [place] [address] [address] Ravin Dior T4 [Mass/Vol] 7.40 ug/dL Normal 4.80-13.90 [facility] Comment on above: Performed By: #### C MP, T7, TSH, LIPID #### [facility] [address] [place], [place] [address] Dr. Ravin Dior GLYCOHEMOGLOBIN A1Con 2022 ADA RECOMMENDATION SEE BELOW Normal [facility] Comment on above: Result Comment: ADA RECOMMENDED LIMIT 4.0 - 6.0 ADA THERAPEUTIC TARGET < 7.0 ACTION SUGGESTED > 7.0 Performed By: #### A 1C ####[facility] [address] [place] [id number]. Ravin Dior Glucose [Mass/Vol] 105 mg/dL Normal [facility] Comment on above: Performed By: #### A 1C ####[facility] [address] [place] [address]DrViky Dior HbA1c (Bld) [Mass fraction] 5.3 % Normal 4.5-6.2 [facility] Comment on above: Performed By: #### A 1C ####[facility] [address] [place] [id number] Dior IRONon 09-22-2022 Iron [Mass/Vol] 81.0 ug/dL Normal 50.0-170.0 [facility] Comment on above: Performed By: #### I SEAMUS ####[facility] [address] [place] [address]DrViky Dior LIPID PROFILEon 09-22-2022 CHOL-HDL RATIO NORM SEE BELOW Normal [facility] Comment on above: Result Comment: 3.3 - 4.4 LOW RISK 4.4 - 7.1 AVERAGE RISK 7.1 - 11.0 MODERATE RISK >11.0 HIGH RISK Performed By: #### C MP, T7, TSH, LIPID ####[facility] [address] [place] [id number]. Ravin Dior Cholesterol [Mass/Vol] 159 mg/dL Normal <=200 [facility] Comment on above: Performed By: #### C MP, T7, TSH, LIPID ####[facility] [address] [place] [id number]. Ravin Dior Cholesterol in HDL [Mass/Vol] 47 mg/dL Normal 40-60 [facility] Comment on above: Performed By: #### C MP, T7, TSH, LIPID ####[facility] [address] [place], [place] [address]Hs. Ravin Dior Cholesterol in LDL [Mass/Vol] 96.4 mg/dL Normal [facility] Comment on above: Performed By: #### C MP, T7, TSH, LIPID ####[facility] [address] [place], [place] [address]Jb. Ravin Dior Cholesterol.total/Cho lesterol in HDL [Mass ratio] 3.4 {ratio} Normal [facility] Comment on above: Performed By: #### C MP, T7, TSH, LIPID ####[facility] [address] [place] [id number]. Novalilliana Dior HDL NORMAL > or = 60 mg/dl - LO W CARDIOVASCULAR RISK <40 mg/dl - HIGH CARDIOVASCULAR RISK Normal [facility] Comment on above: Performed By: #### C MP, T7, TSH, LIPID ####[facility] [address] [place] [id number]. Ravin Dior LDL CALC NORMAL SEE BELOW Normal [facility] Comment on above: Result Comment: <100 mg/dl OPTIMAL 100 - 129 mg/dl NEAR OR ABOVE OPTIMAL 130 - 159 mg/dl BORDERLINE HIGH 160 - 189 mg/dl HIGH >190 mg/dl VERY HIGH Performed By: #### C MP, T7, TSH, LIPID ####[facility] [address] [place] [id number]. Ravin Dior Triglyceride [Mass/Vol] 78 mg/dL Normal <=150 [facility] Comment on above: Performed By: #### C MP, T7, TSH, LIPID ####[facility] [address] [place] [id number]. Ravin Dior VLDL CALC 15.6 mg/dL Normal [facility] Comment on above: Performed By: #### C MP, T7, TSH, LIPID ####[facility] [address] [place], [place] [address]MvDr. Ravin Dior MG MAMM SCREEN 3D NIKOS CADon 09-22-2022 MG MAMM SCREEN 3D NIKOS CAD Patient: SAUL GUTIÉRREZ Exam Date: 09/22/2022 : 1945 Gender:F Ordering : [facility] Admission #: [id number] Family : Order #: [id number] CLICK HERE TO VIEW EXAM RADIOLOGY REPORT [...] Treatments None Family Cancers None LOCATION: [facility] BREAST COMPOSITION: Almost entirely fatty. [...] Valenzuela M.D. on 09/22/2022 at 17:02 Normal [facility] PROF 14(COMP METB)on 023 Albumin [Mass/Vol] 3.3 g/dL Critically low 3.4-5.0 [facility] Comment on above: Performed By: #### C MP, T7, TSH, LIPID #### [facility] [address] [place] [address] [address] Ravin Dior Albumin/Globulin [Mass ratio] 0.7 {ratio} Normal [facility] Comment on above: Performed By: #### C MP, T7, TSH, LIPID #### [facility] [address] [place] [address] [address] Ravin Dior ALP [Catalytic activity/Vol] 207 U/L Critically high 46-116 [facility] Comment on above: Performed By: #### C MP, T7, TSH, LIPID #### [facility] [address] [place] [address] Dr. Ravin Dior ALT [Catalytic activity/Vol] 47 U/L Normal 14-59 [facility] Comment on above: Performed By: #### C MP, T7, TSH, LIPID #### [facility] [address] [place] [address] [address] Ravin Dior Anion gap [Moles/Vol] 11.5 mmol/L Normal [facility] Comment on above: Performed By: #### C MP, T7, TSH, LIPID #### [facility] [address] [place] [address] Dr. Ravin Dior AST [Catalytic activity/Vol] 35 U/L Normal 15-37 [facility] Comment on above: Performed By: #### C MP, T7, TSH, LIPID #### [facility] [address] [place] [address] Dr. Ravin Dior Bilirubin [Mass/Vol] 0.6 mg/dL Normal 0.2-1.0 [facility] Comment on above: Performed By: #### C MP, T7, TSH, LIPID #### [facility] [address] [place] [address] Dr. Ravin Dior Calcium [Mass/Vol] 9.2 mg/dL Normal 8.5-10.1 [facility] Comment on above: Performed By: #### C MP, T7, TSH, LIPID #### [facility] [address] [place] [address] Dr. Ravin Dior Chloride [Moles/Vol] 109 mmol/L Critically high 98-107 [facility] Comment on above: Performed By: #### C MP, T7, TSH, LIPID #### [facility] [address] [place] [address] Dr. Ravin Dior CO2 [Moles/Vol] 27.7 mmol/L Normal 21.0-32.0 [facility] Comment on above: Performed By: #### C MP, T7, TSH, LIPID #### [facility] [address] [place] [address] [address] Ravin Dior Creatinine [Mass/Vol] 0.94 mg/dL Normal 0.55-1.02 [facility] Comment on above: Performed By: #### C MP, T7, TSH, LIPID #### [facility] [address] [place] [address] Dr. Ravin Dior EGFR-AF CROATIAN >60 Normal >=60 [facility] Comment on above: Performed By: #### C MP, T7, TSH, LIPID #### [facility] [address] [place] [address] Dr. Ravin Dior EGFR-NON AF CROATIAN 58 mL/min/1.73m2 Critically low >=60 [facility] Comment on above: Performed By: #### C MP, T7, TSH, LIPID #### [facility] [address] [place] [address] Dr. Ravin Dior Globulin (S) [Mass/Vol] 4.7 g/dL Normal [facility] Comment on above: Performed By: #### C MP, T7, TSH, LIPID #### [facility] [address] [place] [address] Dr. Ravin Dior Glucose [Mass/Vol] 95 mg/dL Normal 74-106 [facility] Comment on above: Performed By: #### C MP, T7, TSH, LIPID #### [facility] [address] [place] [address] [address] Ravin Dior Potassium [Moles/Vol] 4.2 mmol/L Normal 3.5-5.1 [facility] Comment on above: Performed By: #### C MP, T7, TSH, LIPID #### [facility] [address] [place] [address] [address] Ravin Dior Protein [Mass/Vol] 8.0 g/dL Normal 6.4-8.2 [facility] Comment on above: Performed By: #### C MP, T7, TSH, LIPID #### [facility] [address] [place] [address] Dr. Ravin Dior Sodium [Moles/Vol] 144 mmol/L Normal 136-145 [facility] Comment on above: Performed By: #### C MP, T7, TSH, LIPID #### [facility] [address] [address] [address] Ravin Dior Urea nitrogen [Mass/Vol] 21.0 mg/dL Critically high 7.0-18.0 [facility] Comment on above: Performed By: #### C MP, T7, TSH, LIPID #### [facility] [address] [place] [address] [address] Ravin Dior Urea nitrogen/Creatinine [Mass ratio] 22.3 mg/mg Normal [facility] Comment on above: Performed By: #### C MP, T7, TSH, LIPID #### [facility] [address] [place] [address] [address] Ravin Dior TSHon 09-22-2022 TSH 2.085 uIU/mL Normal 0.358-3.740 [facility] Comment on above: Performed By: #### C MP, T7, TSH, LIPID #### [facility] [address] [address] ABD/PELVIS WO CONon [...] was used, including Automated Exposure Control. FINDINGS: Beer Merchant: No pertinent findings, which are not already [...] the largest most superior hernia. Normal [facility] CBC AUTO DIFFon 05-17-2022 BASO # 0.0 103/ul Normal 0.0-0.1 [facility] Comment on above: Performed By: #### C BC ####[facility] [address] [place], [place] [address]Mn. Ravin Dior Basophils/100 WBC (Bld) 0.2 % Normal 0.2-2.0 [facility] Comment on above: Performed By: #### C BC ####[facility] [address] [place], [place] [address]XwViky Dior EO # 0.1 103/ul Normal 0.0-0.7 [facility] Comment on above: Performed By: #### C BC ####[facility] [address] [place] [id number]. Ravin Dior Eosinophils/100 WBC (Bld) 1.4 % Normal 0.9-7.0 [facility] Comment on above: Performed By: #### C BC ####[facility] [address] [place] [address]Dr. Ravin Dior Erythrocyte distribution width (RBC) [Ratio] 13.7 % Normal 11.0-15.0 [facility] Comment on above: Performed By: #### C BC ####[facility] [address] [place], [place] [address]Dr. Ravin Dior Hematocrit (Bld) [Volume fraction] 44.4 % Normal 36.0-48.0 [facility] Comment on above: Performed By: #### C BC ####[facility] [address] [place], [place] [address]Dr. Ravin Dior Hemoglobin (Bld) [Mass/Vol] 14.7 g/dL Normal 12.0-16.0 [facility] Comment on above: Performed By: #### C BC ####[facility] [address] [place], [place] [address]Dr. Ravin Dior IG # 0.05 10e3/ul Critically high 0.00-0.03 [facility] [facility] Comment on above: Performed By: #### C BC ####[facility] [address] [place], [place] [address]Dr. Ravin Dior IG % 0.5 % Normal 0.0-0.5 [facility] Comment on above: Performed By: #### C BC ####[facility] [address] [place], [place] [address]Dr. Ravin Dior LYMPH # 1.7 103/ul Normal 1.2-3.8 [facility] Comment on above: Performed By: #### C BC ####[facility] K[address] [place], [place] [address]Dr. Ravin Dior Lymphocytes/100 WBC (Bld) 17.1 % Critically low 20.5-60.0 [facility] Comment on above: Performed By: #### C BC ####[facility] [address] [id number]. Ravin Dior MANUAL DIFF REQ NO Normal [facility] Comment on above: Performed By: #### C BC ####[facility] [address] [id number]. Ravin Ovi MCH (RBC) [Entitic mass] 30.7 pg Normal 26.7-34.0 [facility] Comment on above: Performed By: #### C BC ####[facility] [address] [id number]. Ravin Ovi MCHC (RBC) [Mass/Vol] 33.1 g/dL Normal 29.9-35.2 [facility] Comment on above: Performed By: #### C BC ####[facility] [address] [place], [place] [address]Dr. Ravin Dior MCV (RBC) [Entitic vol] 92.7 fL Normal 81.0-99.0 [facility] Comment on above: Performed By: #### C BC ####[facility] [address] [place], [place] [address]Dr. Ravin Ovi MONO # 0.6 103/ul Normal 0.3-0.8 [facility] Comment on above: Performed By: #### C BC ####[facility] [address] [address] [address]Dr. Ravin Dior Monocytes/100 WBC (Bld) 5.7 % Normal 1.7-12.0 [facility] Comment on above: Performed By: #### C BC ####[facility] [address] [place], [place] [id number]. Ravin Dior NEUT # 7.7 103/ul Critically high 1.4-6.5 [facility] Comment on above: Performed By: #### C BC ####[facility] [address] [place], [place] [id number]. Ravin Dior Neutrophils/100 WBC (Bld) 75.1 % Critically high 43.0-75.0 [facility] Comment on above: Performed By: #### C BC ####[facility] [address] [address]Dr. Ravin Dior Platelet mean volume (Bld) [Entitic vol] 10.4 fL Normal 9.5-13.5 [facility] Comment on above: Performed By: #### C BC ####[facility] [address] [address]Dr. Ravin Dior PLT 294 103/ul Normal 150-450 [facility] Comment on above: Performed By: #### C BC ####[facility] [address] [address]Dr. Ravin Dior RBC 4.79 106/ul Normal 4.20-5.40 [facility] Comment on above: Performed By: #### C BC ####[facility] [address] [address]Dr. Ravin Dior WBC 10.2 103/ul Normal 4.0-11.0 [facility] Comment on above: Performed By: #### C BC ####[facility] [address] [address]Dr. Ravin Dior ER URINE PROFILEon 2 Bilirubin Ql (U) Negative Normal NEGATIVE [facility] Comment on above: Performed By: #### DENY KAUFFMANRO #### [facility] [address] [place] [address] Dr. Ravin Dior Clarity (U) CLEAR Normal CLEAR [facility] Comment on above: Performed By: #### DENY KAUFFMANRO #### [facility] [address] [place] [address] Dr. Ravin Dior Color (U) LT. YELLOW Normal YELLOW [facility] Comment on above: Performed By: #### DENY KAUFFMANRO #### [facility] [address] [place] [address] Dr. Ravin PARKER A micrscopic examination will be performed if indicated. Normal [facility] Comment on above: Performed By: #### DENY KAUFFMANRO #### [facility] [address] [place] [address] Dr. Ravin Dior Glucose Ql (U) Negative Normal NEGATIVE [facility] Comment on above: Performed By: #### Tammy SOUTH UMICRO #### [facility] [address] [place] [address] Dr. Ravin Dior Hemoglobin Ql (U) Negative Normal NEGATIVE [facility] Comment on above: Performed By: #### Tammy SOUTH UMICRO #### [facility] [address] [place] [address] Dr. Ravin Dior Ketones Ql (U) TRACE Abnormal NEGATIVE [facility] Comment on above: Performed By: #### Tammy SOUTH UMICRO #### [facility] [address] [place] [address] Dr. Ravin Dior LEUKOCYTES SMALL Abnormal NEGATIVE [facility] Comment on above: Performed By: #### Tammy SOUTH UMICRO #### [facility] [address] [place] [address] Dr. Ravin Dior Nitrite Ql (U) Negative Normal NEGATIVE [facility] Comment on above: Performed By: #### Tammy SOUTH UMICRO #### [facility] [address] [place] [address] Dr. Ravin Dior pH (U) 6.0 [pH] Normal 5-9 [facility] Comment on above: Performed By: #### Tammy SOUTH UMICRO #### [facility] [address] [place] [address] Dr. Ravin Dior SPEC GRAVITY 1.010 Normal 1.005-<=1.025 [facility] Comment on above: Performed By: #### Tammy SOUTH UMICRO #### [facility] [address] [place] [address] Dr. Ravin Dior UA PROTEIN Negative Normal NEGATIVE/ TRACE [facility] Comment on above: Performed By: #### Tammy SOUTH UMICRO #### [facility] [address] [place] [address] Dr. Ravin Dior UR MICRO IND INDICATED Normal [facility] Comment on above: Performed By: #### E DENY SOUTHRO #### [facility] [address] [address] [address] Ravin Dior Urobilinogen Qn (U) 0.2 {Chandler'U}/dL Normal 0.2 - 1. 0 [facility] Comment on above: Performed By: #### E DENY SOUTHRO #### [facility] [address] [address] [address] Ravin Dior LACTATE/LACTIC ACIDon 2021 Lactate [Moles/Vol] 1.3 mmol/L Normal 0.4-1.9 [facility] Comment on above: Performed By: #### L ACT ####[facility] [address] [address]Dr. Ravin Dior LIPASEon 05-17-2022 Lipase [Catalytic activity/Vol] 63.0 U/L Critically low 73.0-393.0 [facility] Comment on above: Performed By: #### C MP, LIPA #### [facility] [address] [address] [address] Ravin Dior PROF 14(COMP METB)on 022 Albumin [Mass/Vol] 3.4 g/dL Normal 3.4-5.0 [facility] Comment on above: Performed By: #### C MP, LIPA #### [facility] [address] [address] [address] Ravin Dior Albumin/Globulin [Mass ratio] 0.8 {ratio} Normal [facility] Comment on above: Performed By: #### C MP, LIPA #### [facility] [address] [address] [address] Ravin Dior ALP [Catalytic activity/Vol] 143 U/L Critically high 46-116 [facility] Comment on above: Performed By: #### C MP, LIPA #### [facility] [address] [address] [address] Ravin Dior ALT [Catalytic activity/Vol] 29 U/L Normal 14-59 [facility] Comment on above: Performed By: #### C MP, LIPA #### [facility] [address] [address] [address] Ravin Dior Anion gap [Moles/Vol] 7.6 mmol/L Normal [facility] Comment on above: Performed By: #### C MP, LIPA #### [facility] [address] [address] [address] Ravin Dior AST [Catalytic activity/Vol] 39 U/L Critically high 15-37 [facility] Comment on above: Performed By: #### C MP, LIPA #### [facility] [address] [place] [address] Dr. Ravin Dior Bilirubin [Mass/Vol] 0.7 mg/dL Normal 0.2-1.0 [facility] Comment on above: Performed By: #### C MP, LIPA #### [facility] [address] [place] [address] Dr. Ravin Dior Calcium [Mass/Vol] 9.1 mg/dL Normal 8.5-10.1 [facility] Comment on above: Performed By: #### C MP, LIPA #### [facility] [address] [place] [address] Dr. Ravin Dior Chloride [Moles/Vol] 102 mmol/L Normal 98-107 [facility] Comment on above: Performed By: #### C MP, LIPA #### [facility] [address] [place] [address] Dr. Ravin Dior CO2 [Moles/Vol] 31.1 mmol/L Normal 21.0-32.0 [facility] Comment on above: Performed By: #### C MP, LIPA #### [facility] [address] [place] [address] Dr. Ravin Dior Creatinine [Mass/Vol] 0.88 mg/dL Normal 0.55-1.02 [facility] Comment on above: Performed By: #### C MP, LIPA #### [facility] [address] [address] [address] Ravin Dior EGFR-AF CROATIAN >60 Normal >=60 [facility] Comment on above: Performed By: #### C MP, LIPA #### [facility] [address] [address] [address] Ravin Dior EGFR-NON AF CROATIAN >60 Normal >=60 [facility] Comment on above: Performed By: #### C MP, LIPA #### [facility] [address] [address] [address] Ravin Dior Globulin (S) [Mass/Vol] 4.5 g/dL Normal [facility] Comment on above: Performed By: #### C MP, LIPA #### [facility] [address] [place] [address] Dr. Ravin Dior Glucose [Mass/Vol] 100 mg/dL Normal 74-106 [facility] Comment on above: Performed By: #### C MP, LIPA #### [facility] [address] [place] [address] Dr. Ravin Dior Potassium [Moles/Vol] 3.7 mmol/L Normal 3.5-5.1 [facility] Comment on above: Performed By: #### C MP, LIPA #### [facility] [address] [place] [address] Dr. Ravin Dior Protein [Mass/Vol] 7.9 g/dL Normal 6.4-8.2 [facility] Comment on above: Performed By: #### C MP, LIPA #### [facility] [address] [place] [address] Dr. Ravin Dior Sodium [Moles/Vol] 137 mmol/L Normal 136-145 [facility] Comment on above: Performed By: #### C MP, LIPA #### [facility] [address] [place] [address] Dr. Ravin Dior Urea nitrogen [Mass/Vol] 12.0 mg/dL Normal 7.0-18.0 [facility] Comment on above: Performed By: #### C MP, LIPA #### [facility] [address] [place] [address] Dr. Ravin Dior Urea nitrogen/Creatinine [Mass ratio] 13.6 mg/mg Normal [facility] Comment on above: Performed By: #### C MP, LIPA #### [facility] [address] [place] [address] Dr. Ravin Dior URINE MICROSCOPIC ONLYon BACTERIA NONE SEEN Normal NONE SEEN [facility] Comment on above: Performed By: #### E RUR, UMICRO #### [facility] [address] [place] [address] Dr. Ravin Dior Bacteria identified Cx Nom (U) NOT INDICATED Normal [facility] Comment on above: Performed By: #### E RUR, UMICRO #### [facility] [address] [place] [address] Dr. Ravin Dior CAST NONE SEEN Normal NONE SEEN [facility] Comment on above: Performed By: #### E BRANNON, UMICRO #### [facility] [address] [place] [address] Dr. Ravin Dior Crystals LM Nom (Urine sed) NONE SEEN Normal NONE SEEN [facility] Comment on above: Performed By: #### E BRANNON UMICRO #### [facility] [address] [place] [address] Dr. Ravin Dior Epithelial cells LM Ql (Urine sed) FEW Abnormal NONE SEEN /RARE [facility] Comment on above: Performed By: #### Tammy SOUTH UMICRO #### [facility] [address] [place] [address] Dr. Ravin Dior MUCOUS NONE SEEN Normal NONE SEEN [facility] Comment on above: Performed By: #### Tammy SOUTH UMICRO #### [facility] [address] [place] [address] Dr. Ravin Dior RBC NONE SEEN Abnormal 0-2 [facility] Comment on above: Performed By: #### Tammy SOUTH UMICRO #### [facility] [address] [place] [address] Dr. Ravin Dior WBC 0-2 Abnormal NONE SEEN [facility] Comment on above: Performed By: #### Tammy SOUTH, UMICRO #### [facility] [address] [place] [address] Dr. Ravin Dior Ambulatory Clinical Summaryo n 07-24-2020 Ambulatory Clinical Summary {[id number] Normal [facility] Gastroenterology Office/Clin ic Noteon 07-24-2020 Gastroenterology [...] course, # 28 cap(s), Refills(s) 0, [id number], 165, cm, 07/24/20 12:03:00 EST, Height/Length Dosing, 95.9, kg, 07/24/20 12:03:00 EST, Weight Dosing metronidazole, 250 mg = 1 tab(s), Oral, TID, X 7 day(s), # 21 tab(s), Refills(s) 0, [id number], 165, cm, 07/24/20 12:03:00 EST, [...] water, # 160 cap(s), Refills(s) 1, [id number], 165, cm, 07/24/20 12:03:00 EST, Height/Length Dosing, 95.9, kg, 07/24/20 12:03:... Orders: pantoprazole, 40 mg = 2 tab(s), Oral, Daily, X 90 day(s), # 180 tab(s), Refills(s) 3, [id number], 165, cm, 07/24/20 12:03:00 EST, Height/Length Dosing, 95.9, kg, 07/24/20 12:03:00 EST, Weight Dosing Follow-up With When Contact Information Isabelle Ramirez MD In 12 months [address] [place] [address]- Additional Instructions: Problem List/Past Medical [...] 12/16/2018 Exercise - Occasional exercise, 12/16/2018 Other Hodfjqzd-2-8 cups blair;y, 12/16/2018 Substance Abuse - Denies Substance Abuse, 12/16/2018 Tobacco Never (less than 100 in lifetime) Tobacco Use:., 07/24/2020 Never (less than 100 in lifetime) Tobacco Use:. Never Smokeless Tobacco Use:., 02/01/2019 [facility] Comment on above: Result Comment: Elec tronically Signed By: Taylor Mccauley MD, Isabelle\.bernie\Date and Time Signed: 07/24/20 13:13 EST Auth for Release of Medical Recordson 02-09-2020 Auth for Release of Medical Records [id number]:[id number] [facility] Patient Letter FTon 2019 Patient Letter [facility] January 24, [address] [place] [address] SAUL GUTIÉRREZ 1945 Dear Saul, This is a reminder that you are due for an appointment with Dr. Garland or Dr. Mccauley. Please call [facility] at [phone] to schedule an appointment at your earliest convenience. Thank you, [facility] Normal [facility] Encounters Encounter Date Encounter Type Care Provider Facility Start: 03-27-2024 ambulatory [facility] Start: 03-21-2024 End: 03-21-2024 ambulatory [facility] Start: 03-17-2024 ambulatory [facility] Start: 02-08-2024 End: 02-08-2024 ambulatory [facility] Start: 01-18-2024 ambulatory [facility] Start: 01-17-2024 End: 01-17-2024 ambulatory CARIDAD GARNER Not Available Start: 01-11-2024 End: 01-11-2024 ambulatory SANDIE PAEG Not Available Start: 01-05-2024 ambulatory [facility] Start: 12-20-2023 End: 12-20-2023 ambulatory SANDIE PAGE Not Available Start: 12-16-2023 ambulatory [facility] Start: 12-01-2023 End: 12-01-2023 ambulatory ADELAIDA RIZO [facility] Start: 11-25-2023 Encounter for preprocedural cardiovascular examination SHAYY [facility] Start: 11-25-2023 ambulatory SHAYY [facility] Start: 11-24-2023 ambulatory [facility] Start: 11-23-2023 ambulatory [facility] Start: 11-11-2023 End: 11-11-2023 ambulatory SHAR GARCÍA Not Available Start: 11-01-2023 ambulatory [facility] Start: 11-01-2023 End: 11-01-2023 ambulatory [facility] Start: 08-10-2023 End: 08-10-2023 ambulatory [facility] Start: 07-14-2023 End: 07-14-2023 ambulatory ADELAIDA RIZO [facility] Start: 07-05-2023 ambulatory [facility] Start: 07-05-2023 End: 07-05-2023 ambulatory [facility] Start: 06-05-2023 Refill Mac Velásquezvelvet sser [employer] Work Phone: [facility] Comment on above: Med Refill Start: 05-18-2023 End: 05-18-2023 ambulatory [facility] Start: 09-22-2022 End: 09-23-2022 ambulatory [...] Adult BMI Screening Adult BMI Screen ing [facility] Start: 08-25-2023 Tobacco Screening Tobacco Screening [facility] Start: 01-29-2023 COVID-19 Vaccine ( season) COVID-19 Vaccine ( season) [facility] Start: 01-29-2023 Influenza vaccination Influenza Vacc ine [facility] Start: 11-03-2022 ambulatory Ambulatory Facility:H 1 Start: 2010 Fall Risk Screening Fall Risk Screen ing [facility] Start: 1995 Administration of varicella zoster vaccine Zoster (Shingles) Vaccine (1 of 2) [facility] Start: 1964 DTaP,Tdap and Td Vac cines (1 - Tdap) DTaP,Tdap and Td Vaccines (1 - Tdap) [facility] Start: 1963 Adult BMI Follow Up Plan [facility] Start: 1957 Depression Screening [facility]ing [facility] Start: 1945 Medicare Annual Well ness Visit Medicare Annual Wellness Visit [facility] End: 06-08-2024 Basic metabolic 2000 panel - Serum or Plasma Basic Metabolic Panel Lab Routine Essential hypertension 1 Occurrences starting 06/08/2023 until 06/08/2024 [facility] Work Phone: Comment on above: 1 Occurrences starti ng 06/08/2023 until 06/08/2024 Immunizations Immunization Date Immunization Notes Care Provider Tutu rehman 05-08-2021 influenza virus vaccine, unspecified formulation Mac Erwin [employer] [facility] Phone[facility] Payers Date Payer Category Payer Medicare [employer] MEDICARE [place] [id number] 2013-Present [phone] [address] [address] [place] [address] [id number] 1959 Medicare [id number] 1945 Unknown [id number] 1945 Unknown [id number] 1945 Unknown [id number] 1945 Unknown [id number] 1945 Unknown [id number] 1945 Unknown [id number] 1945 Unknown [id number] 1945 Unknown [id number] 9 1945 Unknown [id number] 9 1945 Unknown [id number] 9 1945 Unknown [id number] 9 Social History Date Type Detail Facility Start: 05-26-2022 Tobacco smoking stat [facility] Never smoked tobacco [facility] Start: 05-26-2022 Tobacco use and exposure Smoke less tobacco non-user [facility] Start: 08-24-2022 Alcohol intake 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 (finding) [facility] Start: 07-04-2020 End: 08-24-2022 History of Social function [facility] Start: 07-04-2020 End: 08-24-2022 Tobacco use panel [facility] Housing Instability Unknown [facility] Start: 1945 Sex Assigned At Not on file P [facility] Medical Equipment Procedure Code Equipment Code Equipment Origin al Text Equipment Identifier Dates Mesh [id number] 3d Rect Plstr Clgn Symbotex 2 Sd Comp Mfl Babsr Rpl [id number] - Sna - [id number] Start: 06-30-2022 Dev Clsr 30fr Watchman 30mm - [id number] Start: 10-28-2018 Clinical Notes 12-24-2021 to 03-21-2024 Note Date & Type Note Facility 03-21-2024 Note [facility] Consult Note Reason for visit: Afib 03/21/24 Patient here for 3 mo follow up persistent afib, CHF, and hypertension. She is now 4 mo s/p AV node ablation. She is 3 weeks s/p back surgery. She's been off of aspirin since surgery, and is supposed to resume in another 3 weeks. Has felt less fatigue since device changes. Denies chest pain, SOB, and palpitations. EKG: Afib with V pacing 11/01/23 Pt here for AVN ablation. She [...] GI bleed. She was previously seen by [facility] cardiology. She was initially seen by [...] on file Intimate Partner Violence: Unknown (07/23/2023) [place] Safety & Environment Fear of Current or Ex-Partner: Not on file Emotionally Abused: Not on file Physically Abused: Not on file Sexually Abused: Not on file Physically or Sexually Abused: Not on file Depression: Not on file Housing Stability: Not on file Utilities: Not on file Allergies: Allergies Allergen Reactions Codeine Other reaction(s): Intolerance-unknown Lisinopril Other reaction(s): Dry cough Lyrica [Pregabalin] Other Weight: 90.7kg Visit Vitals BP 120/72 (BP Location: Left arm, Patient Position: Sitting) Pulse 82 Ht 1.651 m (5' 5 ) Wt 82.6 kg (182 lb) SpO2 97% BMI 30.29 kg/m??? OB Status Postmenopausal Smoking Status Never BSA 1.95 m??? Meds: Current Outpatient Medications on File Prior to Visit Medication Sig Dispense Refill baclofen (Lioresal) 10 mg tablet Take 10 [...] the morning. spironolactone (Aldactone) 25 mg tablet Ta (more content not included)... [facility] 02-14-2024 Note This report has been cancelled. [facility] 02-11-2024 Note RCRI= 2 points Class III Risk 10.1 % 30-day risk of , [place], or cardiac arrest From a cardiac perspective pt may proceed with planned surgery, she is a moderate risk for a moderate risk orthopedic surgery. She may hold Aspirin 5-7 days prior and resume post op. Please monitor hemodynamics carefully and prevent any major fluid shifts. Adelaida Rizo [facility] Card[facility] Available 7a-5pm via [employer] Chat Pager [phone] [facility] 12-01-2023 Note Currently pt is doin g quite well s/p recent AV node ablation Remains V paced with BI-V AICd [facility] 12-01-2023 Note No anticoagulation currently [facility] 12-01-2023 Note Patient here for fol low up AV node ablation performed on 11/01/[address] Madden. She denies chest pain, SOB, palpitations, and lightheadedness/syncope. Review of Systems Musculoskeletal: Positive for arthritis and back pain. All other systems reviewed and are negative. [facility] 12-01-2023 Note [facility] CARDIOLOGY PROGR ESS [...] GI bleed. She was previously seen by [facility] cardiology. She was initially seen by [...] normal. (more content not included)... [facility] 11-01-2023 Note AV NODE ABLATION PRO CEDURE REPORT DATE OF PROCEDURE: 11/01/2023 PERFORMING PHYSICIAN: Dr. Robert Madden OIL WELL DIRECTIONAL SURVEYOR: TOÑA CONSENT: Patient NAME OF THE PROCEDURE: [...] GI bleed. She was previously seen by [facility] cardiology. She was initially seen by [...] Robert Madden MD Cardiac Electrophysiology. [facility] 11-01-2023 Note Patient: Saul mcghee Procedure Information Date/Time: 11/01/23 0830 Procedure: AV node ablation Location: [facility] 1 EP / [facility] (Cath) Providers: Robert Madden MD Clinical information reviewed: Tobacco Allergies Meds Med Hx Surg Hx OB Status Fam Hx Physical Exam Airway Mallampati: II TM distance: >3 FB Neck ROM: full Cardiovascular Dental Pulmonary Abdominal Anesthesia Plan ASA 2 CSE Anesthetic plan and risks discussed with patient. Use of blood products discussed with patient who. Additional Equipment Requests [facility] 11-01-2023 Note [place] Electrophysiology Consult Note Reason for [...] GI bleed. She was previously seen by [facility] cardiology. She was initially seen by [...] on file Intimate Partner Violence: Unknown (07/23/2023) [place] Safety & Environment Fear of Current or [...] tab (more content not included)... [facility] 08-27-2023 Note ca [facility] 07-14-2023 Note stable [facility] 07-14-2023 Note UTP CARDIOLOGY PROGR ESS [...] GI bleed. She was previously seen by [facility] cardiology. She was initially seen by [...] No (more content not included)... [facility] 07-14-2023 Note Patient here for wou nd check s/p BiV ICD implant on 07/05/[address] Madden. [facility] 07-14-2023 Note Site well approximat ed and healing well No s/s of infection or hematoma, + ecchymosis noted [facility] 07-14-2023 Note -[id number] at [address] 5 for age x2, gender, hypertension, CHF, on aspirin s/p watchmen Continue meds as prescribed [facility] 07-05-2023 Note HYDRAULIC SPECIALIST-D IMPLANT PROCED URE NOTE DATE OF PROCEDURE: 07/05/2023 PERFORMING PHYSICIAN: Dr. 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 Implantation of Biventricular ICD ([employer]). 2. U/S venous access 3. Coronary [...] GI bleed. She was previously seen by [facility] cardiology. She was initially seen by [...] occasions using seldinger technique using a 5 German micropunture needle and exchanged for 0.034 wire. I decided to proceed with opening of the pocket. Localinfiltration of 1% Lidocaine was performed and an incision was created in the left upper chest. Dissection was then performed using cautery down. An active fixation [employer] ICD lead was then delivered through the 8F sheath to the right ventricle. After confirmation of lead position on orthogonal views (BECK and WOLOF) to confirm position in the septal aspect, the screw was activated. After confirmation of good sensing parameters, injury pattern and pacing thresholds, 10V pacing was done and no diaphragmatic stimulation was noted. It was then secured in the pocket using three 1-0 Silk sutures. I then proceeded to perform the LV lead placement. A Brockway sheath was advanced into the RV over [...] The leads were then attached to a [employer] HYDRAULIC SPECIALIST-D device with atrial ort capped and [...] hemodynamically (more content not included)... [facility] 07-05-2023 Note Patient: Saul mcghee Procedure Information Date/Time: 07/05/23 1400 Procedure: Implant ICD - biventricular Location: [facility] 1 / [facility] (Cath) Providers: Robert Madden MD Clinical information reviewed: Allergies Meds Physical Exam Airway Mallampati: II TM distance: >3 FB Neck ROM: full Cardiovascular Dental Pulmonary Abdominal Anesthesia Plan ASA 2 CSE Anesthetic plan and risks discussed with patient. Use of blood products discussed with patient who. Additional Equipment Requests [facility] 05-18-2023 Note [place] Electrophysiology Consult Note [...] GI bleed. [facility] She was initially seen by Dr. [...] we (more content not included)... [facility] 07-23-2022 Note PAIN MANAGEMENT CONS ULTATION [...] months' time or sooner if needed. [facility] 03-26-2022 Note CONSULTATION CONSULTATION DATE: [...] agrees with the plan of care. [facility] 12-24-2021 Note CONSULTATION PROCEDURE DATE: [...] the procedure well with no complications. [facility] 12-24-2021 Note CONSULTATION CONSULTATION DATE: [...] three months' time, unless otherwise indicated. [facility] Evaluation note Diagnosis Essential hypertension- Primary Unspecified essential hypertension documented [facility] this encounter [facility] filed[facility] in [facility] Summary Purpose Family History No Family History Records FoundNo Family History Records FoundNo Family History Records FoundNo Family History Records Found Advance Directives No Advanced Directives Records FoundNo Advanced Directives Records FoundNo Advanced Directives Records FoundNo Advanced Directives Records Found Additional Source Comments INFORMATION SOURCE (unrecogn ized section and content) DATE CREATED AUTHOR 07/25/[address] [facility] DATE CREATED AUTHOR AUTHOR'S ORGANIZ ATION 10/12/2022 [facility] DATE CREATED AUTHOR AUTHOR'S ORGANIZ ATION 01/17/2024 [facility] DATE CREATED AUTHOR AUTHOR'S ORGANIZ ATION 03/29/2024 [facility] Reason for Visit (unrecogniz ed section and content) Reason Comments Med Refill Care Teams (unrecognized sec tion and content) Pecan Cleaner Relationship Specialty Start Date End Date Heaven Staley, TAO-VICKIE [address] [address] PCP - General Family Medicine 10/30/21 FOR [...] BE BASED ON THE PRIMARY CLINICAL RECORDS. [employer] [facility]. provides no warranty or guarantee of the accuracy or completeness of information in this document.
== END 2024-04-14 10:16 | disposition home or self-care (01) ==
LOC: EC 10:15
PROVIDERS: PCP Nurse Practitioner Family; Visit Provider Orthopaedic Surgery Orthopaedic Surgery of the Spine
DX: M54.50 Low back pain, unspecified (principal); M43.26 Fusion of spine, lumbar region
CPT/HCPCS: 72100

== ENCOUNTER 2024-05-17 09:07 | Outpatient (OUT) | payer MEDICARE, SELFPAY ==
--- NOTE | 2024-05-17 09:17 | PM.CN ---
Consult Note: HPI Data of Consult Patient: known to practice within the last 3 years Requesting Physician: Carmen Ramey NP Primary Care Provider: FIDELINA STALEY Consult Narrative Reason for consult: f/u Narrative: Radha Cornell a pleasant 78 year old female presents for evaluation and management of chronic low back pain. Pain today 4/10 ache increased with all activity and decreased with lying down and heat. Patient has found moderate benefit to current medication regimen, did not start zonegran due to concerns of side effects. Recently underwent L3-S1 fusion and decompression at L3,4,[address] Ramírez with significant improvement ongoing. cc:: CC: Carmen Ramey NP Review of Systems ROS Status of ROS 10 or more systems reviewed and unremarkable except as noted in history and below Musculoskeletal Reports: back pain PFSH PFSH Medical History Rectocele ?N81.6 - Rectocele (ICD-10) Bruising ?T14.8XXA - Other injury of unspecified body region, initial encounter (ICD-10) Anemia ?D64.9 - Anemia, unspecified (ICD-10) Upper back pain ?M54.9 - Dorsalgia, unspecified (ICD-10) Neck pain ?M54.2 - Cervicalgia (ICD-10) Low back pain ?M54.50 - Low back pain, unspecified (ICD-10) Fibromyalgia ?M79.7 - Fibromyalgia (ICD-10) Heartburn ?R12 - Heartburn (ICD-10) Acid reflux ?K21.9 - Gastro-esophageal reflux disease without esophagitis (ICD-10) Sleep apnea ?G47.30 - Sleep apnea, unspecified (ICD-10) Atrial fibrillation ?I48.91 - Unspecified atrial fibrillation (ICD-10) Surgical History S/P lumbar spine operation ?Z98.890 - Other specified postprocedural states (ICD-10) S/P shoulder surgery ?Z98.890 - Other specified postprocedural states (ICD-10) History of bariatric surgery ?Z98.84 - Bariatric surgery status (ICD-10) H/O heart surgery ?Z98.890 - Other specified postprocedural states (ICD-10) H/O: hysterectomy ?Z90.710 - Acquired absence of both cervix and uterus (ICD-10) Hx of cholecystectomy ?Z90.49 - Acquired absence of other specified parts of digestive tract (ICD-10) Meds Home Medications and Allergies Home Medications ?Medication ?Instructions ?Recorded ?Confirmed ?Type cholecalciferol (vitamin D3) 125 5,000 unit PO DAILY 11/03/22 12/14/23 History mcg (5,000 unit) capsule furosemide 40 mg tablet (Lasix) 40 mg PO BID 11/03/22 12/14/23 History krill 2 cap PO DAILY 11/03/22 12/14/23 History sxo-un3-nuu-zuo-le2-ubz-astax 1,500 mg-165 mg-67.5 mg capsule losartan 25 mg tablet 25 mg PO DAILY 11/03/22 12/14/23 History metoprolol succinate 25 mg 12.5 mg PO BID 11/03/22 12/14/23 History tablet,extended release 24 hr multivitamin 1 tab PO DAILY 11/03/22 12/14/23 History pantoprazole 40 mg tablet,delayed 40 mg PO BID 11/03/22 12/14/23 History release (Protonix) pramipexole 1 mg tablet (Mirapex) 1 mg PO DAILY 11/03/22 12/14/23 History trazodone 50 mg tablet 50 mg PO DAILY 11/03/22 12/14/23 History vitamin B complex 1 cap PO DAILY 11/03/22 12/14/23 History naloxone 4 mg/actuation nasal 4 mg intranasal Q3M PRN opioid 02/11/23 12/14/23 Rx spray (Narcan) overdose #2 ea baclofen 10 mg tablet 10 mg PO BID PRN muscle spasm #60 07/28/23 12/14/23 Rx tabs oxycodone-acetaminophen 5 mg-325 1 tab PO TID PRN pain #90 tabs 12/15/23 Rx mg tablet (Percocet) zonisamide 50 mg capsule 50 mg PO DAILY #30 caps 12/23/23 Rx oxycodone-acetaminophen 5 mg-325 1 tab PO TID PRN pain #90 tabs 01/19/24 Rx mg tablet (Percocet) oxycodone-acetaminophen 5 mg-325 1 tab PO TID PRN pain #90 tabs 02/14/24 Rx mg tablet (Percocet) oxycodone-acetaminophen 5 mg-325 1 tab PO TID PRN pain #90 tabs 03/24/24 Rx mg tablet (Percocet) oxycodone-acetaminophen 5 mg-325 1 tab PO TID PRN pain #90 tabs 04/25/24 Rx mg tablet (Percocet) Allergies Allergy/AdvReac Type Severity Reaction Status Date / Time codeine Allergy Mild Hives Verified 12/14/23 10:23 pregabalin (From Lyrica) Allergy Shakiness Verified 12/14/23 10:23 Exam Constitutional Documenting provider has reviewed patient's vital signs: yes Common normals: no apparent distress, oriented x3, healthy appearing, alert and well nourished General appearance: cooperative HENMT Common normals: normocephalic, hearing grossly normal bilaterally and moist oral mucous membranes Head and scalp: normocephalic Eye Common normals: PERRL Pupil: PERRL Neck & C-Spine Common normals: full ROM General: normal visual inspection Chest Common normals: inspection of chest normal Respiratory Common normals: normal respiratory effort, no retractions and no use of accessory muscles Back & Pelvis Lumbar spine/lower back: ROM limited, pain with ROM and straight leg raise negative bilaterally Other: facet loading negative tender to touch and pain with activity over left superior gluteal nerve positive fabers to left, pain with gaenslen and thigh thrust Extremity Common normals: normal to inspection and full ROM Neuro Common normals: oriented x3, CN's II-XII intact bilaterally, moves all extremities, no focal motor deficits, no sensory deficits noted and deep tendon reflexes 2+ bilaterally Sensorium/orientation: alert Motor exam: strength 5/5 throughout and no movement abnormalities noted Psych Common normals: mental status grossly normal, thought process normal, cooperative, affect normal, speech normal and activity/motor behavior normal Speech: normal speech Thought process: normal thought process Results Additional Findings Additional findings: If on a controlled substance or opioids, I have checked an OARRS report on this patient and there are no aberrancies noted in the prescribing history.??If on a controlled substance or opioid a drug screen was completed and reviewed within the last year, and if there has not been a drug screen completed we ordered one today to monitor higher risk, state monitored pain medication use. As part of providing excellent, safe, comprehensive care, the following was completed at our patient's visit: 1. A medication reconciliation and review to ensure accurate knowledge of current/active medications, including asking our patients to inform us about any eaiv-lhu-woewkwj medications or herbal remedies/nutritional supplements/alternative remedies. 2. A review to specifically ensure our patients have had annual screening for screening for depression, screening for tobacco use, and screening for unhealthy alcohol use. For concerning screenings had a discussion with the patient, provided patient education, and recommended follow-up with primary care provider when appropriate. If patient noted with a risk of falling, they received education on strength, gait, and balance training to prevent future risk of falling. Assessment and Plan Assessment and Plan (1) Lumbar radiculopathy: (2) Lumbar spine instability: (3) Failed back syndrome: (4) Lumbar spondylosis: (5) Muscle spasm: (6) Chronic prescription opiate use: Assessment and Plan: I feel these medications are improving the patient's quality of life and allow them to tolerate activities of daily living as well as participate in recreational activity.? The patient does not report intolerable side effects. The patient is NOT opioid naive and non-pharmacologic and non-opioid treatment has failed to significantly relieve the patient's pain and improve functionality. The patient has a diagnosis that is related to a somatic or visceral pain etiology. ? ?? I reviewed with the patient the potential risks and side effects with the use of? opioid medications including but not limited to respiratory depression,? sedation, and even . I verified the patient has access to naloxone should? these effects occur. I advised the patient to avoid the use of any other? sedation substances including alcohol, THC, and benzodiazepines while? taking opioid medications due to the risk of compounding side effects and? detrimental outcomes. 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 drug screen, and opioid start talking forms. The patient was advised to let? their family know they had Naloxone in case they would need to administer? the medication.? ?? A drug screen was completed within the last year, and no aberrancies were noted regarding their use of controlled substances. The patient understands they are subject to the terms and conditions of the pain contract that they have signed. ? ?? I have checked an OARRS report on this patient today and there are no aberrancies noted in the prescribing history.? (7) Status post lumbar spinal fusion: Plan decrease percocet 5-325mg BID-TID PRN 75/month next fill, risks vs benefits reviewed continue baclofen 5-10mg BID PRN pain/spasms continue PT and f/u with NS as planned continue f/u with cardiology, pacemaker f/u 3 months, sooner if needed
== END 2024-05-17 09:08 | disposition home or self-care (01) ==
LOC: PM 09:07
PROVIDERS: PCP Nurse Practitioner Family; Visit Provider Nurse Practitioner
DX: M54.16 Radiculopathy, lumbar region (principal); M53.2X6 Spinal instabilities, lumbar region; M96.1 Postlaminectomy syndrome, not elsewhere classified; M47.816 Spondylosis without myelopathy or radiculopathy, lumbar region; M62.838 Other muscle spasm; Z79.891 Long term (current) use of opiate analgesic
CPT/HCPCS: G0463

== ENCOUNTER 2024-06-02 10:13 | Outpatient (OUT) | payer MEDICARE, SELFPAY ==
--- NOTE | 2024-06-02 | XR_ITS ---
The [address] [address] Patient Name: SAUL GUTIÉRREZ MRN: [id number] date: 1945 Sex: F Assigned Patient Location: Current Patient Location: Accession/Order Number: [id number] Exam Date: 06/02/2024 10:14 Report Date: 06/05/2024 07:18 At the request of: AVANI BURROWS Procedure: XR lumbar spine 2-3V EXAMINATION: XR lumbar spine 2-3V HISTORY: LUMBAR SPINE PAIN COMPARISON: 04/14/2024 FINDINGS: BONES: Normal alignment with no acute fracture or spondylolisthesis. Posterior decompression bilateral transpedicular fusion L3-S1. Mild to moderate spondylosis and facet osteoarthropathy DISC SPACES: Multilevel disc space narrowing PARASPINOUS: Negative. No paraspinous abnormality is seen. OTHER: Negative. XR/XR lumbar spine 2-3V IMPRESSION: Degenerative and postsurgical changes. Electronically authenticated by: YVES JOHNSON Date: 06/05/2024 07:18
--- OUTSIDE RECORDS SUMMARY | 2024-06-02 10:18 | XMS_ITS | CCD ---
Author Organization [facility] Care Team Providers Care Electromechanical Inspector Name Role Phone JOHNSON ., DR JAYLON Ruelas Admitting Unavailable ORNELAS ., DR JAYLON Ruelas Attending Unavailable LUÍS, HEAVEN Primary Care Unavailable ORNELAS ., DR JAYLON Ruelas Consulting Unavailable MICHELINE MOLINA Consulting Unavailable ORNELAS ., DR JAYLON Ruelas Admitting Unavailable ORNELAS ., DR JAYLON Ruelas Attending Unavailable [facility] Primary Care Unavailable RODRIGUEZ ., SABRINA Consulting Unavailable ORNELAS ., DR JAYLON Ruelas Admitting Unavailable ORNELAS ., DR JAYLON Ruelas Attending Unavailable [facility] Primary Care Unavailable RODRIGUEZ ., SABRINA Consulting Unavailable [facility] Primary Care Unavailable LAKSHMIPATHY ., NARENDRANATH Admitting Charity vailable LAKSHMIPATHY ., NARENDRANATH Attending Charity vailable LAKSHMIPATHY ., NARENDRANATH Consulting Charity vailable LAKSHMIPATHY ., NARENDRANATH Admitting Charity vailable LAKSHMIPATHY ., NARENDRANATH Attending Charity vailable [facility] Primary Care Unavailable LUÍS, HEAVEN Admitting Unavailable LUÍS, HEAVEN Attending Unavailable [facility] Primary Care Unavailable DR SHAR VALENZUELA Consulting Unavailable LUÍS, HEAVEN Consulting Unavailable [facility] Primary Care Unavailable DAREK ., KEILY Admitting Unavailable DAREK ., KEILY Attending Unavailable DAREK ., KEILY Consulting Unavailable KELSIE DEL ANGEL Consulting Unavailable Luís POCKET SETTER-Heaven JOHNSTON S Primary Care Provider SHAR GARCÍA Attending Unavailable SANDIE PAGE Attending Unavailable HEAVEN STALEY Referring Unavailable SANDIE PAGE Attending Unavailable CARIDAD GARNER Attending Unavailable ROBERT MADDEN Attending Unavailable ROBERT MADDEN Admitting Unavailable ROBERT MADDEN Attending Unavailable ROBERT MADDEN Admitting Unavailable ROBERT MADDEN Referring Unavailable SHAYY ORTIZ Referring Unavailable NAVID, ROBERT Referring Unavailable NAVID, ROBERT Referring Unavailable DIANA, SHAYY Referring Unavailable NAVID, ROBERT Referring Unavailable NAVID, ROBERT Referring Unavailable NAVID, ROBERT Attending Unavailable DARRIUS, ADELAIDA Attending Unavailable DARRIUS, ADELAIDA Attending Unavailable NAVID, [...] Codeine; Translations: [CODEINE] Drug Allergy 06-06-2014 [facility] Repository (1 source) Codeine Drug Allergy 06-06-2014 [facility] (2 sources) Lisinopril; Translations: [LISINOPRIL] Drug Allergy 10-19-2014 [facility] (1 source) pregabalin; Translations: [PREGABALIN] Drug Allergy 12-01-2023 [facility] Repository Medications Current Medications Medication Drug Class(es) [...] 30 tablet 1 06/08/2023 Active lactobacillus acidophilus [id number] unt oral capsule (1 source) take 1 [...] Indications: Chronic systolic CHF (congestive heart failure) ([facility]) Take 1 tablet (25 mg total) by [...] 10-11-2020 Episodic Other aftercare (1 source) Other ocean transportation intermediary (current) drug therapy; Translations: [OTH INSTRUMENTATION MANAGER CURRENT DRUG THERAPY] Onset: 05-19-2022 Episodic [...] Range Facility Office Visiton 03-21-2024 Follow-up visit [id number] Saul Gutiérrez 1945 F Date Provider Department Center 03/21/2024 ROBERT GEE MAGNUS [place] Family History Problem Relation Age of Onset Heart failure Father Family Status - Relation Status Age at Father Level of Service:27632 [place] OFFICE/OUTPATIENT ESTABLISHED LOW MDM 20 MIN [facility] 36on 02-11-2024 36 Tried to contact patient and she has no VM set up. Will try again on Wednesday morning. [facility] Documentationon 02-11-2024 Documentation [id number] Saul Gutiérrez 1945 F Date Provider Department [place] 02/11/2024 ADELAIDA VALENCIA MAGNUS [facility] Family History Problem Relation Age of Onset Heart failure Father Family Status - Relation Status Age at Father [facility] 36on 02-08-2024 36 Patient had her [...] Dr. Madden until 03/21. Please advise. Thanks. [facility] Telephoneon 02-08-2024 Telephone [id number] Saul Gutiérrez 1945 Provider Department [place] 02/08/2024 Aletha-CARIDAD LOVE MAGNUS [place] Family History Problem Relation Age of Onset Heart failure Father Family Status - Relation Status Age at Father [facility] Office Visiton 12-01-2023 Follow-up visit [id number] Saul Gutiérrez 1945 Date Provider Department [place] 12/01/2023 ADELAIDA VALENCIA MAGNUS [place] Family History Problem Relation Age of Onset Heart failure Father Family Status - Relation Status Age at Father Level of Service:45970 NM POSTOP FOLLOW UP VISIT RELATED TO ORIGINAL PX [facility] HPon 11-01-2023 [facility] Electrophysiology Consult Note Reason for visit: Afib 11/01/23 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 She was previously seen by [facility] cardiology. She was initially seen by Dr. [...] on file Intimate Partner Violence: Unknown (07/23/2023) [place] Safety & Environment Fear of Current or [...] 50 mg tab (more content not included)... [facility] NURSNOTEon 11-01-2023 NURSNOTE RN educated pt on d/ c instructions. RN encouraged pt to voice any questions or concerns. Pt verbalizes no questions or concerns at this time. [facility] Orders Onlyon 10-22-2023 Orders Only [id number] Saul Gutiérrez 1945 F [facility] Provider Department Center 10/22/2023 DEMODN RAMOS [facility] [place] [facility] Family History Problem Relation Age of Onset Heart failure Father Family Status - Relation Status Age at Father [facility] Orders Onlyon 08-27-2023 Orders Only [id number] Saul Gutiérrez 1945 F Date Provider Department Center 08/27/2023 LEATHA BAHENA [facility] Family History Problem Relation Age of Onset Heart failure Father Family Status - Relation Status Age at Father [facility] Office Visiton 07-14-2023 Follow-up visit [id number] Saul Gutiérrez 1945 F Date Provider Department Center 07/14/2023 ADELADIA VALENCIA [facility]ARD [facility] Family History Problem Relation Age of Onset Heart failure Father Family Status - Relation Status Age at Father Level of Service:13176 [place] POSTOP FOLLOW UP VISIT RELATED TO ORIGINAL PX [facility] HPon 07-05-2023 [facility] Electrophysiology Consult Note Reason for [...] bleed. She was previously seen by [facility] cardiology. She was initially seen by Dr. [...] Appearance: well-nourished, we (more content not included)... [facility] NURSNOTEon 07-05-2023 NURSNOTE RN educated pt on d/ c instructions. RN encouraged pt to voice any questions or concerns. Pt verbalizes no questions or concerns at this time. Pt was wheeled off of unit with all of belongings. [facility] NURSNOTE CHG wipes and betadine nasal swabs completed. [facility] Orders Onlyon 07-05-2023 Orders Only [id number] Saul Gutiérrez 1945 F Date Provider Department Center 07/05/2023 ELENA ATWOOD [facility] [place] [facility] Family History Problem Relation Age of Onset Heart failure Father Family Status - Relation Status Age at Father [facility] INSULINon 09-23-2022 Insulin 7.9 uIU/mL Normal 2.6-24.9 [facility] Comment on above: Performed By: #### I NSULIN ####[facility] [address] [place], [place] [address]Dr. Ravin Dior CBC AUTO DIFFon 09-22-2022 BASO # 0.0 103/ul Normal 0.0-0.1 [facility] Comment on above: Performed By: #### C BC ####[facility] [address] [place] [address]DrViky Dior Basophils/100 WBC (Bld) 0.4 % Normal 0.2-2.0 [facility] Comment on above: Performed By: #### C BC ####[facility] Tg[address] [place], [place] [address]DrViky Dior EO # 0.6 103/ul Normal 0.0-0.7 [facility] Comment on above: Performed By: #### C BC ####[facility] L[address] [place], [place] [address]Dr. Ravin Ovi Eosinophils/100 WBC (Bld) 6.6 % Normal 0.9-7.0 [facility] Comment on above: Performed By: #### C BC ####[facility] [address] [place], [place] [address]Dr. Ravin Dior Erythrocyte distribution width (RBC) [Ratio] 16.2 % Critically high 11.0-15.0 [facility] Comment on above: Performed By: #### C BC ####[facility] Of[address] [place], [place] [address]Dr. Ravin Dior Hematocrit (Bld) [Volume fraction] 43.3 % Normal 36.0-48.0 [facility] Comment on above: Performed By: #### C BC ####[facility] [address] [place], [place] [address]Dr. Ravin Dior Hemoglobin (Bld) [Mass/Vol] 13.4 g/dL Normal 12.0-16.0 [facility] Comment on above: Performed By: #### C BC ####[facility] [address] [place], [place] [address]Dr. Ravin Dior IG # 0.05 10e3/ul Critically high 0.00-0.[address] [facility] Comment on above: Performed By: #### C BC ####[facility] [address] [place], [place] [address]Dr. Ravin Dior IG % 0.5 % Normal 0.0-0.5 [facility] Comment on above: Performed By: #### C BC ####[facility] [address] [place], [place] [address]Dr. Ravin Dior LYMPH # 2.1 103/ul Normal 1.2-3.8 [facility] Comment on above: Performed By: #### C BC ####[facility] [address] [place], [place] [address]Dr. Ravin Dior Lymphocytes/100 WBC (Bld) 23.1 % Normal 20.5-60.0 [facility] Comment on above: Performed By: #### C BC ####[facility] [address] [place] [address]DrViky Dior MANUAL DIFF REQ NO Normal [facility] Comment on above: Performed By: #### C BC ####[facility] [address] [place] [address]Dr. Ravin Dior MCH (RBC) [Entitic mass] 29.5 pg Normal 26.7-34.0 [facility] Comment on above: Performed By: #### C BC ####[facility] [address] [place], [place] [address]Dr. Ravin Dior MCHC (RBC) [Mass/Vol] 30.9 g/dL Normal 29.9-35.2 [facility] Comment on above: Performed By: #### C BC ####[facility] E[address] [place], [place] [address]DrViky Dior MCV (RBC) [Entitic vol] 95.4 fL Normal 81.0-99.0 [facility] Comment on above: Performed By: #### C BC ####[facility] [address] [place], [place] [address]DrViky Dior MONO # 0.5 103/ul Normal 0.3-0.8 [facility] Comment on above: Performed By: #### C BC ####[facility] [address] [place], [place] [address]DrViky Dior Monocytes/100 WBC (Bld) 5.8 % Normal 1.7-12.0 [facility] Comment on above: Performed By: #### C BC ####[facility] Ol[address] [place], [place] [address]DrViky Dior NEUT # 5.8 103/ul Normal 1.4-6.5 [facility] Comment on above: Performed By: #### C BC ####[facility] [address] [place], [place] [address]DrViky Dior Neutrophils/100 WBC (Bld) 63.6 % Normal 43.0-75.0 [facility] Comment on above: Performed By: #### C BC ####[facility] [address] [place] [address]Dr. Ravin Dior Platelet mean volume (Bld) [Entitic vol] 10.7 fL Normal 9.5-13.5 [facility] Comment on above: Performed By: #### C BC ####[facility] [address] [place] [address]DrViky Dior PLT 223 103/ul Normal 150-450 [facility] Comment on above: Performed By: #### C BC ####[facility] [address] [place] [address]DrViky Dior RBC 4.54 106/ul Normal 4.20-5.40 [facility] Comment on above: Performed By: #### C BC ####[facility] [address] [place] [address]DrViky Dior WBC 9.2 103/ul Normal 4.0-11.0 [facility] Comment on above: Performed By: #### C BC ####[facility] [address] [place] [address]Dr. Ravin Dior FREE THYROXINE INDEX T7on FTI 2.44 Normal 1.30-4.50 [facility] Comment on above: Performed By: #### C MP, T7, TSH, LIPID #### [facility] [address] [place] [address] [address] Ravin Dior T3U 33.0 % Normal 30.0-39.0 [facility] Comment on above: Performed By: #### C MP, T7, TSH, LIPID #### [facility] [address] [address] [address] Ravin Dior T4 [Mass/Vol] 7.40 ug/dL Normal 4.80-13.90 [facility] Comment on above: Performed By: #### C MP, T7, TSH, LIPID #### [facility] [address] [place] [address] Dr. Ravin Dior GLYCOHEMOGLOBIN A1Con 2022 ADA RECOMMENDATION SEE BELOW Normal [facility] Comment on above: Result Comment: ADA RECOMMENDED LIMIT 4.0 - 6.0 ADA THERAPEUTIC TARGET < 7.0 ACTION SUGGESTED > 7.0 Performed By: #### A 1C ####[facility] [address] [place] [address]Dr. Ravin Dior Glucose [Mass/Vol] 105 mg/dL Normal [facility] Comment on above: Performed By: #### A 1C ####[facility] [address] [place], [place] [address]Dr. Ravin Dior HbA1c (Bld) [Mass fraction] 5.3 % Normal 4.5-6.2 [facility] Comment on above: Performed By: #### A 1C ####[facility] [address] [place], [place] [address]DrViky Diro IRONon 09-22-2022 Iron [Mass/Vol] 81.0 ug/dL Normal 50.0-170.0 [facility] Comment on above: Performed By: #### I SEAMUS ####[facility] [address] [place], [place] [address]Dr. Ravin Dior LIPID PROFILEon 09-22-2022 CHOL-HDL RATIO NORM SEE BELOW Normal [facility] Comment on above: Result Comment: 3.3 - 4.4 LOW RISK 4.4 - 7.1 AVERAGE RISK 7.1 - 11.0 MODERATE RISK >11.0 HIGH RISK Performed By: #### C MP, T7, TSH, LIPID ####[facility] [address] [place] [address]Dr. Ravin Dior Cholesterol [Mass/Vol] 159 mg/dL Normal <=200 [facility] Comment on above: Performed By: #### C MP, T7, TSH, LIPID ####[facility] [address] [place] [address]Dr. Ravin Dior Cholesterol in HDL [Mass/Vol] 47 mg/dL Normal 40-60 [facility] Comment on above: Performed By: #### C MP, T7, TSH, LIPID ####[facility] [address] [place] [id number]. Ravin Dior Cholesterol in LDL [Mass/Vol] 96.4 mg/dL Normal [facility] Comment on above: Performed By: #### C MP, T7, TSH, LIPID ####[facility] [address] [place], [place] [address]Sr. Ravin Dior Cholesterol.total/Cho lesterol in HDL [Mass ratio] 3.4 {ratio} Normal [facility] Comment on above: Performed By: #### C MP, T7, TSH, LIPID ####[facility] [address] [place] [id number]. Ravin Dior HDL NORMAL > or = 60 mg/dl - LO W CARDIOVASCULAR RISK <40 mg/dl - HIGH CARDIOVASCULAR RISK Normal [facility] Comment on above: Performed By: #### C MP, T7, TSH, LIPID ####[facility] [address] [place] [address]Dr. Ravin Dior LDL CALC NORMAL SEE BELOW Normal [facility] Comment on above: Result Comment: <100 mg/dl OPTIMAL 100 - 129 mg/dl NEAR OR ABOVE OPTIMAL 130 - 159 mg/dl BORDERLINE HIGH 160 - 189 mg/dl HIGH >190 mg/dl VERY HIGH Performed By: #### C MP, T7, TSH, LIPID ####[facility] [address] [place] [id number]. Ravin Dior Triglyceride [Mass/Vol] 78 mg/dL Normal <=150 [facility] Comment on above: Performed By: #### C MP, T7, TSH, LIPID ####[facility] [address] [place] [id number]. Ravin Dior VLDL CALC 15.6 mg/dL Normal [facility] Comment on above: Performed By: #### C MP, T7, TSH, LIPID ####[facility] [address] [place] [id number]. Ravin Dior MG MAMM SCREEN 3D NIKOS CADon 09-22-2022 MG MAMM SCREEN 3D NIKOS CAD Patient: SAUL GUTIÉRREZ Exam Date: 09/22/2022 : 1945 Gender:F Ordering : HEAVEN STALEY [facility] Admission #: [id number] Family : Order #: [id number] CLICK HERE TO VIEW EXAM RADIOLOGY REPORT [...] Treatments None Family Cancers None LOCATION: [facility] BREAST COMPOSITION: Almost entirely fatty. FINDINGS: DIAGNOSTIC [...] Valenzuela M.D. on 09/22/2022 at 17:02 Normal [facility] PROF 14(COMP METB)on 023 Albumin [Mass/Vol] 3.3 g/dL Critically low 3.4-5.0 [facility] Comment on above: Performed By: #### C MP, T7, TSH, LIPID #### [facility] [address] [address] [address] Ravin Dior Albumin/Globulin [Mass ratio] 0.7 {ratio} Normal [facility] Comment on above: Performed By: #### C MP, T7, TSH, LIPID #### [facility] [address] [address] [address] Ravin Dior ALP [Catalytic activity/Vol] 207 U/L Critically high 46-116 [facility] Comment on above: Performed By: #### C MP, T7, TSH, LIPID #### [facility] [address] [address] [address] Ravin Dior ALT [Catalytic activity/Vol] 47 U/L Normal 14-59 [facility] Comment on above: Performed By: #### C MP, T7, TSH, LIPID #### [facility] [address] [address] [address] Ravin Dior Anion gap [Moles/Vol] 11.5 mmol/L Normal [facility] Comment on above: Performed By: #### C MP, T7, TSH, LIPID #### [facility] [address] [address] [address] Ravin Dior AST [Catalytic activity/Vol] 35 U/L Normal 15-37 [facility] Comment on above: Performed By: #### C MP, T7, TSH, LIPID #### [facility] [address] [place] [address] Dr. Ravin Dior Bilirubin [Mass/Vol] 0.6 mg/dL Normal 0.2-1.0 [facility] Comment on above: Performed By: #### C MP, T7, TSH, LIPID #### [facility] [address] [place] [address] Dr. Ravin Dior Calcium [Mass/Vol] 9.2 mg/dL Normal 8.5-10.1 [facility] Comment on above: Performed By: #### C MP, T7, TSH, LIPID #### [facility] [address] [place] [address] Dr. Ravin Dior Chloride [Moles/Vol] 109 mmol/L Critically high 98-107 [facility] Comment on above: Performed By: #### C MP, T7, TSH, LIPID #### [facility] [address] [place] [address] Dr. Ravin Dior CO2 [Moles/Vol] 27.7 mmol/L Normal 21.0-32.0 [facility] Comment on above: Performed By: #### C MP, T7, TSH, LIPID #### [facility] [address] [place] [address] Dr. Ravin Dior Creatinine [Mass/Vol] 0.94 mg/dL Normal 0.55-1.02 [facility] Comment on above: Performed By: #### C MP, T7, TSH, LIPID #### [facility] [address] [address] [address] Ravin Dior EGFR-AF JAPANESE >60 Normal >=60 [facility] Comment on above: Performed By: #### C MP, T7, TSH, LIPID #### [facility] [address] [address] [address] Ravin Dior EGFR-NON AF JAPANESE 58 mL/min/1.73m2 Critically low >=60 [facility] Comment on above: Performed By: #### C MP, T7, TSH, LIPID #### [facility] [address] [place] [address] Dr. Ravin Dior Globulin (S) [Mass/Vol] 4.7 g/dL Normal [facility] Comment on above: Performed By: #### C MP, T7, TSH, LIPID #### [facility] [address] [place] [address] Dr. Ravin Dior Glucose [Mass/Vol] 95 mg/dL Normal 74-106 [facility] Comment on above: Performed By: #### C MP, T7, TSH, LIPID #### [facility] [address] [place] [address] Dr. Ravin Dior Potassium [Moles/Vol] 4.2 mmol/L Normal 3.5-5.1 [facility] Comment on above: Performed By: #### C MP, T7, TSH, LIPID #### [facility] [address] [place] [address] Dr. Ravin Dior Protein [Mass/Vol] 8.0 g/dL Normal 6.4-8.2 [facility] Comment on above: Performed By: #### C MP, T7, TSH, LIPID #### [facility] [address] [place] [address] Dr. Ravin Dior Sodium [Moles/Vol] 144 mmol/L Normal 136-145 [facility] Comment on above: Performed By: #### C MP, T7, TSH, LIPID #### [facility] [address] [place] [address] Dr. Ravin Dior Urea nitrogen [Mass/Vol] 21.0 mg/dL Critically high 7.0-18.0 [facility] Comment on above: Performed By: #### C MP, T7, TSH, LIPID #### [facility] [address] [place], [place] [address] Dr. Ravin Dior Urea nitrogen/Creatinine [Mass ratio] 22.3 mg/mg Normal [facility] Comment on above: Performed By: #### C MP, T7, TSH, LIPID #### [facility] [address] [place], [place] [address] Dr. Ravin Dior TSHon 09-22-2022 TSH 2.085 uIU/mL Normal 0.358-3.740 [facility] Comment on above: Performed By: #### C MP, T7, TSH, LIPID #### [facility] [address] [place], [place] [address] ABD/PELVIS WO CONon [...] was used, including Automated Exposure Control. FINDINGS: Accessibility Lift Technician: No pertinent findings, which are not already [...] the largest most superior hernia. Normal [facility] CBC AUTO DIFFon 05-17-2022 BASO # 0.0 103/ul Normal 0.0-0.1 [facility] Comment on above: Performed By: #### C BC ####[facility] [address] [place] [id number]. Ravin Dior Basophils/100 WBC (Bld) 0.2 % Normal 0.2-2.0 [facility] Comment on above: Performed By: #### C BC ####[facility] [address] [place], [place] [address]So. Ravin Dior EO # 0.1 103/ul Normal 0.0-0.7 [facility] Comment on above: Performed By: #### C BC ####[facility] [address] [place] [id number]. Ravin Dior Eosinophils/100 WBC (Bld) 1.4 % Normal 0.9-7.0 [facility] Comment on above: Performed By: #### C BC ####[facility] [address] [place] [address]Dr. Ravin Dior Erythrocyte distribution width (RBC) [Ratio] 13.7 % Normal 11.0-15.0 [facility] Comment on above: Performed By: #### C BC ####[facility] [address] [place] [address]Dr. Ravin Dior Hematocrit (Bld) [Volume fraction] 44.4 % Normal 36.0-48.0 [facility] Comment on above: Performed By: #### C BC ####[facility] [address] [place], [place] [address]Dr. Ravin Dior Hemoglobin (Bld) [Mass/Vol] 14.7 g/dL Normal 12.0-16.0 [facility] Comment on above: Performed By: #### C BC ####[facility] [address] [place], [place] [address]Dr. Ravin Dior IG # 0.05 10e3/ul Critically high 0.00-0.[address] [facility] Comment on above: Performed By: #### C BC ####[facility] Kxagnmssiq[address] [place], [place] [address]Dr. Ravin Dior IG % 0.5 % Normal 0.0-0.5 [facility] Comment on above: Performed By: #### C BC ####[facility] Nuq[address] [place], [place] [address]Dr. Ravin Dior LYMPH # 1.7 103/ul Normal 1.2-3.8 [facility] Comment on above: Performed By: #### C BC ####[facility] Xetazw[address] [place], [place] [address]Dr. Ravin Dior Lymphocytes/100 WBC (Bld) 17.1 % Critically low 20.5-60.0 [facility] Comment on above: Performed By: #### C BC ####[facility] Zylxb[address] [place], [place] [address]Dr. Ravin Dior MANUAL DIFF REQ NO Normal [facility] Comment on above: Performed By: #### C BC ####[facility] [address] [place] [id number]. Ravin Ovi MCH (RBC) [Entitic mass] 30.7 pg Normal 26.7-34.0 [facility] Comment on above: Performed By: #### C BC ####[facility] [address] [place] [id number]. Ravin Ovi MCHC (RBC) [Mass/Vol] 33.1 g/dL Normal 29.9-35.2 [facility] Comment on above: Performed By: #### C BC ####[facility] [address] [place] [id number]. Ravin Ovi MCV (RBC) [Entitic vol] 92.7 fL Normal 81.0-99.0 [facility] Comment on above: Performed By: #### C BC ####[facility] Vln[address]ij[address] [place], [place] [address]Dr. Ravin Dior MONO # 0.6 103/ul Normal 0.3-0.8 [facility] Comment on above: Performed By: #### C BC ####[facility] [address] [place] [address]Dr. Ravin Dior Monocytes/100 WBC (Bld) 5.7 % Normal 1.7-12.0 [facility] Comment on above: Performed By: #### C BC ####[facility] Powazcov[address] [place], [place] [address]Dr. Ravin Dior NEUT # 7.7 103/ul Critically high 1.4-6.5 [facility] Comment on above: Performed By: #### C BC ####[facility] [address] [place] [id number]. Ravin Dior Neutrophils/100 WBC (Bld) 75.1 % Critically high 43.0-75.0 [facility] Comment on above: Performed By: #### C BC ####[facility] [address] [place], [place] [address]Dr. Ravin Dior Platelet mean volume (Bld) [Entitic vol] 10.4 fL Normal 9.5-13.5 [facility] Comment on above: Performed By: #### C BC ####[facility] [address] [place] [address]Dr. Ravin Dior PLT 294 103/ul Normal 150-450 [facility] Comment on above: Performed By: #### C BC ####[facility] [address] [place] [address]Dr. Ravin Dior RBC 4.79 106/ul Normal 4.20-5.40 [facility] Comment on above: Performed By: #### C BC ####[facility] [address] [place] [address]Dr. Ravin Dior WBC 10.2 103/ul Normal 4.0-11.0 [facility] Comment on above: Performed By: #### C BC ####[facility] [address] [place] [address]Dr. Ravin Dior ER URINE PROFILEon 2 Bilirubin Ql (U) Negative Normal NEGATIVE [facility] Comment on above: Performed By: #### DENY KAUFFMANRO #### [facility] [address] [place] [address] Dr. Ravin Dior Clarity (U) CLEAR Normal CLEAR [facility] Comment on above: Performed By: #### DENY KAUFFMANRO #### [facility] [address] [place] [address] Dr. Ravin Dior Color (U) LT. YELLOW Normal YELLOW [facility] Comment on above: Performed By: #### DENY KAUFFMANRO #### [facility] [address] [place] [address] Dr. Ravin PARKER A micrscopic examination will be performed if indicated. Normal [facility] Comment on above: Performed By: #### DENY KAUFFMANRO #### [facility] [address] [place] [address] Dr. Ravin Dior Glucose Ql (U) Negative Normal NEGATIVE [facility] Comment on above: Performed By: #### DENY KAUFFMANRO #### [facility] [address] [place] [address] Dr. Ravin Dior Hemoglobin Ql (U) Negative Normal NEGATIVE [facility] Comment on above: Performed By: #### Tammy SOUTH UMICRO #### [facility] [address] [place] [address] Dr. Ravin Dior Ketones Ql (U) TRACE Abnormal NEGATIVE [facility] Comment on above: Performed By: #### Tammy SOUTH UMICRO #### [facility] [address] [place] [address] Dr. Ravin Dior LEUKOCYTES SMALL Abnormal NEGATIVE [facility] Comment on above: Performed By: #### Tammy SOUTH UMICRO #### [facility] [address] [place] [address] Dr. Ravin Dior Nitrite Ql (U) Negative Normal NEGATIVE [facility] Comment on above: Performed By: #### Tammy SOUTH UMICRO #### [facility] [address] [place] [address] Dr. Ravin Dior pH (U) 6.0 [pH] Normal 5-9 [facility] Comment on above: Performed By: #### Tammy SOUTH UMICRO #### [facility] [address] [place] [address] Dr. Ravin Dior SPEC GRAVITY 1.010 Normal 1.005-<=1.025 [facility] Comment on above: Performed By: #### Tammy SOUTH UMICRO #### [facility] [address] [place] [address] Dr. Ravin Dior UA PROTEIN Negative Normal NEGATIVE/ TRACE [facility] Comment on above: Performed By: #### Tammy SOUTH UMICRO #### [facility] [address] [place] [address] Dr. Ravin Dior UR MICRO IND INDICATED Normal [facility] Comment on above: Performed By: #### Tammy SOUTH UMICRO #### [facility] [address] [place] [address] Dr. Ravin Dior Urobilinogen Qn (U) 0.2 {Chandler'U}/dL Normal 0.2 - 1. 0 [facility] Comment on above: Performed By: #### E RUDENY HoldenRO #### [facility] [address] [address] [address] Ravin Dior LACTATE/LACTIC ACIDon 2021 Lactate [Moles/Vol] 1.3 mmol/L Normal 0.4-1.9 [facility] Comment on above: Performed By: #### L ACT ####[facility] [address] [place] [address]Dr. Ravin Dior LIPASEon 05-17-2022 Lipase [Catalytic activity/Vol] 63.0 U/L Critically low 73.0-393.0 [facility] Comment on above: Performed By: #### C MP, LIPA #### [facility] [address] [address] [address] Ravin Dior PROF 14(COMP METB)on 022 Albumin [Mass/Vol] 3.4 g/dL Normal 3.4-5.0 [facility] Comment on above: Performed By: #### C MP, LIPA #### [facility] [address] [address] [address] Ravin Dior Albumin/Globulin [Mass ratio] 0.8 {ratio} Normal [facility] Comment on above: Performed By: #### C MP, LIPA #### [facility] [address] [address] [address] Ravin Dior ALP [Catalytic activity/Vol] 143 U/L Critically high 46-116 [facility] Comment on above: Performed By: #### C MP, LIPA #### [facility] [address] [address] [address] Ravin Dior ALT [Catalytic activity/Vol] 29 U/L Normal 14-59 [facility] Comment on above: Performed By: #### C MP, LIPA #### [facility] [address] [address] [address] Ravin Dior Anion gap [Moles/Vol] 7.6 mmol/L Normal [facility] Comment on above: Performed By: #### C MP, LIPA #### [facility] [address] [address] [address] Ravin Dior AST [Catalytic activity/Vol] 39 U/L Critically high 15-37 [facility] Comment on above: Performed By: #### C MP, LIPA #### [facility] [address] [address] [address] Ravin Dior Bilirubin [Mass/Vol] 0.7 mg/dL Normal 0.2-1.0 [facility] Comment on above: Performed By: #### C MP, LIPA #### [facility] [address] [address] [address] Ravin Dior Calcium [Mass/Vol] 9.1 mg/dL Normal 8.5-10.1 [facility] Comment on above: Performed By: #### C MP, LIPA #### [facility] [address] [place] [address] Dr. Ravin Dior Chloride [Moles/Vol] 102 mmol/L Normal 98-107 [facility] Comment on above: Performed By: #### C MP, LIPA #### [facility] [address] [address] [address] Ravin Dior CO2 [Moles/Vol] 31.1 mmol/L Normal 21.0-32.0 [facility] Comment on above: Performed By: #### C MP, LIPA #### [facility] [address] [place] [address] Dr. Ravin Dior Creatinine [Mass/Vol] 0.88 mg/dL Normal 0.55-1.02 [facility] Comment on above: Performed By: #### C MP, LIPA #### [facility] [address] [place] [address] Dr. Ravin Dior EGFR-AF JAPANESE >60 Normal >=60 [facility] Comment on above: Performed By: #### C MP, LIPA #### [facility] [address] [place] [address] Dr. Ravin Dior EGFR-NON AF JAPANESE >60 Normal >=60 [facility] Comment on above: Performed By: #### C MP, LIPA #### [facility] [address] [place] [address] Dr. Ravin Dior Globulin (S) [Mass/Vol] 4.5 g/dL Normal [facility] Comment on above: Performed By: #### C MP, LIPA #### [facility] [address] [place] [address] Dr. Ravin Dior Glucose [Mass/Vol] 100 mg/dL Normal 74-106 [facility] Comment on above: Performed By: #### C MP, LIPA #### [facility] [address] [place] [address] Dr. Ravin Dior Potassium [Moles/Vol] 3.7 mmol/L Normal 3.5-5.1 [facility] Comment on above: Performed By: #### C MP, LIPA #### [facility] [address] [place] [address] Dr. Ravin Dior Protein [Mass/Vol] 7.9 g/dL Normal 6.4-8.2 [facility] Comment on above: Performed By: #### C MP, LIPA #### [facility] [address] [place] [address] Dr. Ravin Dior Sodium [Moles/Vol] 137 mmol/L Normal 136-145 [facility] Comment on above: Performed By: #### C MP, LIPA #### [facility] [address] [place] [address] Dr. Ravin Dior Urea nitrogen [Mass/Vol] 12.0 mg/dL Normal 7.0-18.0 [facility] Comment on above: Performed By: #### C MP, LIPA #### [facility] [address] [place] [address] Dr. Ravin Dior Urea nitrogen/Creatinine [Mass ratio] 13.6 mg/mg Normal [facility] Comment on above: Performed By: #### C MP, LIPA #### [facility] [address] [place] [address] Dr. Ravin Dior URINE MICROSCOPIC ONLYon BACTERIA NONE SEEN Normal NONE SEEN [facility] Comment on above: Performed By: #### E BRANNON UMICRO #### [facility] [address] [place] [address] Dr. Ravin Dior Bacteria identified Cx Nom (U) NOT INDICATED Normal [facility] Comment on above: Performed By: #### Tammy SOUTH UMICRO #### [facility] [address] [place] [address] Dr. Ravin Dior CAST NONE SEEN Normal NONE SEEN [facility] Comment on above: Performed By: #### Tammy SOUTH UMICRO #### [facility] [address] [place] [address] Dr. Ravin Dior Crystals LM Nom (Urine sed) NONE SEEN Normal NONE SEEN [facility] Comment on above: Performed By: #### Tammy SOUTH UMICRO #### [facility] [address] [place] [address] Dr. Ravin Dior Epithelial cells LM Ql (Urine sed) FEW Abnormal NONE SEEN /RARE [facility] Comment on above: Performed By: #### Tammy SOUTH UMICRO #### [facility] [address] [place] [address] Dr. Ravin Dior MUCOUS NONE SEEN Normal NONE SEEN [facility] Comment on above: Performed By: #### Tammy SOUTH UMICRO #### [facility] [address] [place] [address] Dr. Ravin Dior RBC NONE SEEN Abnormal 0-2 [facility] Comment on above: Performed By: #### Tammy SOUTH UMICRO #### [facility] [address] [place] [address] Dr. Ravin Dior WBC 0-2 Abnormal NONE SEEN [facility] Comment on above: Performed By: #### Tammy SOUTH UMICRO #### [facility] [address] [place] [address] Dr. Ravin Dior Ambulatory Clinical Summaryo n 07-24-2020 Ambulatory Clinical Summary {[id number] Normal [facility] Gastroenterology Office/Clin ic Noteon 07-24-2020 Gastroenterology [...] course, # 28 cap(s), Refills(s) 0, Pharmacy: [facility]/pharmacy #[id number], 165, cm, 07/24/20 12:03:00 EST, Height/Length Dosing, 95.9, kg, 07/24/20 12:03:00 EST, Weight Dosing metronidazole, 250 mg = 1 tab(s), Oral, TID, X 7 day(s), # 21 tab(s), Refills(s) 0, [id number], 165, cm, 07/24/20 12:03:00 EST, [...] water, # 160 cap(s), Refills(s) 1, [id number], 165, cm, 07/24/20 12:03:00 EST, Height/Length Dosing, 95.9, kg, 07/24/20 12:03:... Orders: pantoprazole, 40 mg = 2 tab(s), Oral, Daily, X 90 day(s), # 180 tab(s), Refills(s) 3, [id number], 165, cm, 07/24/20 12:03:00 EST, Height/Length Dosing, 95.9, kg, 07/24/20 12:03:00 EST, Weight Dosing Follow-up With When Contact Information Isabelle Ramirez MD In 12 months [address] [place] [address]- Additional Instructions: Problem List/Past Medical [...] 12/16/2018 Exercise - Occasional exercise, 12/16/2018 Other Ootxjekj-5-9 cups blair;y, 12/16/2018 Substance Abuse - Denies [...] 02-09-2020 Auth for Release of Medical Records [id number]:[id number] [facility] Patient Letter FTon 2019 Patient Letter [facility] January 24, 2020 SAUL [place] [address] SAUL GUTIÉRREZ 1945 Dear Saul, This is a reminder that you are due for an appointment with Dr. Garland or Dr. Mccauley. Please call [facility] at [phone] to schedule an appointment at your earliest convenience. Thank you, [facility] Encounters Encounter Date Encounter Type Care Provider Facility Start: 05-22-2024 ambulatory [facility] Start: 05-18-2024 ambulatory [facility] Start: 05-16-2024 ambulatory [facility] Start: 05-15-2024 ambulatory [facility] Start: 05-04-2024 ambulatory [facility] Start: 04-20-2024 ambulatory [facility] Start: 03-27-2024 ambulatory [facility] Start: 03-21-2024 End: 03-21-2024 ambulatory [facility] Start: 03-17-2024 ambulatory [facility] Start: 02-08-2024 End: 02-08-2024 ambulatory [facility] Start: 01-18-2024 ambulatory [facility] Start: 01-18-2024 Encounter for preprocedural cardiovascular examination [facility] Start: 01-17-2024 End: 01-17-2024 ambulatory CARIDAD GARNER Not Available Start: 01-11-2024 End: 01-11-2024 ambulatory SANDIE PAGE Not Available Start: 01-05-2024 ambulatory [facility] Start: 12-20-2023 End: 12-20-2023 ambulatory SANDIE PAGE Not Available Start: 12-16-2023 ambulatory [facility] Start: 12-01-2023 End: 12-01-2023 ambulatory ADELAIDA RIZO [facility] Start: 11-25-2023 ambulatory SHAYY ORTIZ [facility] Start: 11-24-2023 ambulatory [facility] Start: 11-23-2023 ambulatory [facility] Start: 11-11-2023 End: 11-11-2023 ambulatory SHAR RAQUEL Not Available Start: 11-01-2023 ambulatory [facility] Start: 11-01-2023 End: 11-01-2023 ambulatory [facility] Start: 08-10-2023 End: 08-10-2023 ambulatory [facility] Start: 07-14-2023 End: 07-14-2023 ambulatory ADELAIDA RIZO [facility] Start: 07-05-2023 ambulatory [facility] Start: 07-05-2023 End: 07-05-2023 ambulatory [facility] Start: 06-05-2023 Refill Mac Lujan sser 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 Phone: [facility] Comment on above: Med Refill Start: 09-22-2022 End: 09-23-2022 ambulatory HEAVEN STALEY [...] BMI Screening Adult BMI Screen ing [facility] Start: 08-25-2023 Tobacco Screening Tobacco Screening [facility] Start: 01-29-2023 COVID-19 Vaccine ( season) COVID-19 Vaccine ( season) [facility] Start: 01-29-2023 Influenza vaccination Influenza Vacc ine [facility] Start: 11-03-2022 ambulatory Ambulatory Facility:H 1 Start: 2010 Fall Risk Screening Fall Risk Screen ing [facility] Start: 1995 Administration of varicella zoster vaccine Zoster (Shingles) [facility]: 1964 DTaP,Tdap and Td Vac cines (1 - Tdap) DTaP,Tdap and Td Vaccines (1 - Tdap) [facility] Start: 1963 Adult BMI Follow Up Plan Adult BMI Follow Up Plan [facility] Start: 1957 Depression Screening Depression Scre ening [facility] Start: 1945 Medicare Annual Well ness Visit Medicare Annual Wellness Visit [facility] End: 06-08-2024 Basic metabolic 2000 panel - Serum or Plasma Basic Metabolic Panel Lab Routine Essential hypertension 1 Occurrences starting 06/08/2023 until 06/08/2024 [facility] Work Phone: Comment on above: 1 Occurrences starti ng 06/08/2023 until 06/08/2024 Immunizations Immunization Date Immunization Notes Care Provider Tutu rehman 05-08-2021 influenza virus vaccine, unspecified formulation Mac Erwin 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 Phone: [facility] [employer] Payers Date Payer Category Payer Medicare [employer] MEDICARE [place] [id number] 2013-Present [id number] [place] [id number] 1959 Medicare [id number] 1945 Unknown [id number] 1945 Unknown [id number] 1945 Unknown [id number] 1945 Unknown [id number] 1945 Unknown [id number] [id number] 1945 Unknown [id number] 1945 Unknown [id number] 1945 Unknown [id number] [id number] 9 1945 Unknown [id number] [id number] 9 1945 Unknown [id number] 9 1945 Unknown [id number] 9 Social History Date Type Detail Facility Start: 05-26-2022 Tobacco smoking stat [facility] Never smoked tobacco [facility] Start: 05-26-2022 Tobacco use and exposure Smoke less tobacco non-user [facility] Start: 08-24-2022 Alcohol intake 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 (finding) [facility] Start: 07-04-2020 End: 08-24-2022 History of Social function [facility] Start: 07-04-2020 End: 08-24-2022 Tobacco use panel [facility] Housing Instability Unknown [facility] Start: 1945 Sex Assigned At Not on file [facility] Medical Equipment Procedure Code Equipment Code Equipment Origin al Text Equipment Identifier Dates Mesh [id number] 3d Rect Plstr Clgn Symbotex 2 Sd Comp Mfl Babsr Rpl [id number] - Sna - [id number] Start: 06-30-2022 Dev Clsr 30fr Watchman 30mm - [id number] Start: 10-28-2018 Clinical Notes 12-24-2021 to [...] bleed. She was previously seen by [facility] cardiology. She was initially seen by Dr. [...] on file Intimate Partner Violence: Unknown (07/23/2023) [place] [employer] [place] Fear of Current or [...] mg tablet Ta (more content not included)... [facility] 02-14-2024 Note This report has been cancelled. [facility] 02-11-2024 Note RCRI= 2 points Class III Risk 10.1 % 30-day risk of , [place], or cardiac arrest From a cardiac perspective pt may proceed with planned surgery, she is a moderate risk for a moderate risk orthopedic surgery. She may hold Aspirin 5-7 days prior and resume post op. Please monitor hemodynamics carefully and prevent any major fluid shifts. Adelaida Rizo [facility] Cardiology Available 7a-5pm via Private Outlet Chat Pager [phone] [facility] 12-01-2023 Note Currently pt is doin g quite well s/p recent AV node ablation Remains V paced with BI-V AICd [facility] 12-01-2023 Note [facility] Patient here for fol low up AV node ablation performed on 11/01/[address] Madden. She denies chest pain, SOB, palpitations, and lightheadedness/syncope. Review of Systems Musculoskeletal: Positive for arthritis and back pain. All other systems reviewed and are negative. [facility] 12-01-2023 Note [facility] CARDIOLOGY PROGR ESS NOTE [...] bleed. She was previously seen by [facility] cardiology. She was initially seen by Dr. [...] Conjunctiva/sclera: Conjunctivae normal. (more content not included)... [facility] 11-01-2023 Note AV NODE ABLATION PRO CEDURE REPORT DATE OF PROCEDURE: 11/01/2023 PERFORMING PHYSICIAN: Dr. Robert Madden SERVICE SPECIALIST: TOÑA CONSENT: Patient NAME OF THE PROCEDURE: [...] [facility] bleed. [facility] [...] Continue anticoagulation. Robert Madden MD Cardiac Electrophysiology. 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 Use of blood products discussed with patient who. Additional Equipment Requests [facility] 11-01-2023 Note [place] Electrophysiology Consult Note Reason for visit: Afib [...] bleed. She was previously seen by [facility] cardiology. She was initially seen by Dr. [...] on file Intimate Partner Violence: Unknown (07/23/2023) [place] Safety & Environment Fear of Current or [...] 50 mg tab (more content not included)... [facility] 08-27-2023 Note ca [facility] 07-14-2023 Note stable [facility] 07-14-2023 Note UTP CARDIOLOGY PROGR ESS [...] bleed. She was previously seen by [facility] cardiology. She was initially seen by Dr. [...] Neurological: General: No (more content not included)... [facility] 07-14-2023 Note Patient here for wou nd check s/p BiV ICD implant on 07/05/[address] Madden. [facility] 07-14-2023 Note Site well approximat ed and healing well No s/s of infection or hematoma, + ecchymosis noted [facility] 07-14-2023 Note -[id number] at [address] 5 for age x2, gender, hypertension, CHF, on aspirin s/p watchmen Continue meds as prescribed [facility] 07-05-2023 Note SUPERINTENDENT PLANT-D IMPLANT PROCED URE NOTE DATE OF PROCEDURE: 07/05/2023 PERFORMING PHYSICIAN: Dr. Robert Madden SERVICE SPECIALIST: TOÑA CONSENT: Patient LOCATION: Contact Center Team Lead PROCEDURE PERFORMED: 1. Implantation of Biventricular ICD ([employer]). 2. U/S venous access 3. Coronary [...] bleed. She was previously seen by [facility] cardiology. She was initially seen by Dr. [...] occasions using seldinger technique using a 5 [place] micropunture needle and exchanged for 0.034 wire. I decided to proceed with opening of the pocket. Localinfiltration of 1% Lidocaine was performed and an incision was created in the left upper chest. Dissection was then performed using cautery down. An active fixation [employer] ICD lead was then delivered through the 8F sheath to the right ventricle. After confirmation of lead position on orthogonal views (BECK and BHUTANESE) to confirm position in the septal aspect, the screw was activated. After confirmation of good sensing parameters, injury pattern and pacing thresholds, 10V pacing was done and no diaphragmatic stimulation was noted. It was then secured in the pocket using three 1-0 Silk sutures. I then proceeded to perform the LV lead placement. A [place] sheath was advanced into the RV over [...] The leads were then attached to a [employer] SUPERINTENDENT PLANT-D device with atrial ort capped and the [...] Patient was hemodynamically (more content not included)... 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 Use of blood products discussed with patient who. Additional Equipment Requests [facility] 07-23-2022 Note PAIN MANAGEMENT CONS ULTATION CONSULTATION [...] months' time or sooner if needed. [facility] 03-26-2022 Note CONSULTATION CONSULTATION DATE: 03/26/2022 This [...] agrees with the plan of care. [facility] 12-24-2021 Note CONSULTATION PROCEDURE DATE: 12/24/2021 PREOPERATIVE [...] the procedure well with no complications. [facility] 12-24-2021 Note CONSULTATION CONSULTATION DATE: 12/24/2021 HISTORY [...] three months' time, unless otherwise indicated. [facility] Evaluation note Diagnosis Essential hypertension- Primary Unspecified essential hypertension documented in this encounter [employer] SystemInstructionsNot on filedocumented in this encounter [facility] Summary Purpose Family History No Family History Records FoundNo Family History Records FoundNo Family History Records FoundNo Family History Records Found Advance Directives No Advanced Directives Records FoundNo Advanced Directives Records FoundNo Advanced Directives Records FoundNo Advanced Directives Records Found Additional Source Comments INFORMATION SOURCE (unrecogn ized section and content) DATE CREATED AUTHOR 07/25/2020 Travis Cordova [facility] DATE CREATED AUTHOR AUTHOR'S ORGANIZ ATION 10/12/[address] [facility] DATE CREATED AUTHOR AUTHOR'S ORGANIZ ATION 01/17/2024 [facility] DATE CREATED AUTHOR AUTHOR'S ORGANIZ ATION 05/24/2024 [facility] Reason for Visit (unrecogniz ed section and content) Reason Comments Med Refill Care Teams (unrecognized sec tion and content) Electromechanical Inspector Relationship Specialty Start Date End Date Heaven Staley, POCKET SETTER-CAREER REPRESENTATIVE [address] [facility], [place] [address] PCP - General Family Medicine 10/30/21 FOR [...] BE BASED ON THE PRIMARY CLINICAL RECORDS. [facility]. provides no warranty or guarantee of the accuracy or completeness of information in this document.
== END 2024-06-02 10:14 | disposition home or self-care (01) ==
LOC: EC 10:14
PROVIDERS: PCP Nurse Practitioner Family; Visit Provider Orthopaedic Surgery Orthopaedic Surgery of the Spine
DX: M54.50 Low back pain, unspecified (principal); M43.27 Fusion of spine, lumbosacral region
CPT/HCPCS: 72100

== ENCOUNTER 2024-08-10 09:00 | Outpatient (OUT) | payer MEDICARE, SELFPAY ==
--- OUTSIDE RECORDS SUMMARY | 2024-08-10 09:17 | XMS_ITS | CCD ---
Author Organization [facility] CliniSynd Care Team Providers Care Catering And Events Manager Name Role Phone JOHNSON ., DR JAYLON Ruelas Admitting Unavailable ORNELAS ., DR JAYLON Ruelas Attending Unavailable [facility] Primary Care Unavailable ORNELAS ., DR JAYLON Ruelas Consulting Unavailable MICHELINE MOLINA Consulting Unavailable JOHNSON ., DR JAYLON Ruelas Admitting Unavailable ORNELAS ., DR JAYLON Ruelas Attending Unavailable [facility] Primary Care Unavailable RODRIGUEZ ., SABRINA Consulting Unavailable ORNELAS ., DR JAYLON Ruelas Admitting Unavailable ORNELAS ., DR JAYLON Ruelas Attending Unavailable [facility] Primary Care Unavailable RODRIGUEZ ., SABRINA Consulting Unavailable [facility] Primary Care Unavailable LAKSHMIPATHY ., NARENDRANATH Admitting Charity vailable LAKSHMIPATHY ., NARENDRANATH Attending Charity vailable LAKSHMIPATHY ., NARENDRANATH Consulting Charity vailable LAKSHMIPATHY ., NARENDRANATH Admitting Charity vailable LAKSHMIPATHY ., NARENDRANATH Attending Charity vailable [facility] Primary Care Unavailable LUÍS, HEAVEN Admitting Unavailable HEAVEN STALEY Attending [facility]available [facility] Care Unavailable DR SHAR VALENZUELA Consulting Unavailable HEAVEN STALEY Consulting Unavailable [facility] Primary Care Unavailable DAREK ., KEILY Admitting Unavailable DAREK ., KEILY Attending Unavailable DAREK ., KEILY Consulting Unavailable KELSIE DEL ANGEL Consulting Unavailable SHAR GARCÍA Attending Unavailable SANDIE PAGE Attending Unavailable HEAEVN STALEY Referring Unavailable SANDIE PAGE Attending Unavailable CARIDAD GARNER Attending Unavailable Heaven Steven Primary Care Provider ROBERT MADDEN Referring Unavailable ROBERT MADDEN Referring Unavailable ROBERT MADDEN Referring Unavailable ROBERT MADDEN Referring Unavailable ROBERT MADDEN Referring Unavailable ROBERT MADDEN Referring Unavailable ROBERT MADDEN Referring Unavailable NAVID, ROBERT Admitting Unavailable NAVID, [...] SHAYY Referring Unavailable NAVID, ROBERT Referring Unavailable Allergies Allergy Classification Reported Allergen(s) Allergy Type Date of Onset Reaction(s) Facility (3 sources) Codeine; Translations: [CODEINE] Drug Allergy 06-06-2014 [facility] Repository (5 sources) Codeine Drug Allergy 06-06-2014 [facility] (6 sources) Lisinopril; Translations: [LISINOPRIL] Drug Allergy 10-19-2014 [facility] (2 sources) pregabalin; Translations: [PREGABALIN] Drug Allergy 12-01-2023 [facility] Repository Medications Current Medications Medication Drug Class(es) Dates Sig (Normalized) Sig (Original) acetaminophen 325 mg / oxyCODONE hydrochloride 5 mg oral tablet (6 sources) Opioid Agonist Start: 07-27-2024 take 1 tablet by mouth every eight hours as needed Oxycodone-Acetami nophen (Percocet) 5-325 mg tablet Active 1 TAB PO Every 8 hours as needed July 27, 2024 12:00am take 1 tablet by amanda th every four hours as needed for pain oxyCODONE-acetaminophen (PERCOCET) 5-325 mg per tablet Take 1 tablet by mouth every 4 (four) hours as needed for pain. Active b complex vitamins capsule (5 sources) take 1 capsule by mo uth in the morning b complex vitamins capsule Take 1 capsule by mouth in the morning. Active take 1 capsule by mouth in the m orning b complex vitamins capsule Take 1 capsule by mouth in the morning. 0 Active baclofen 10 mg oral tablet (1 source) gamma-Aminobutyric Acid-ergic Agonist Start: 07-27-2024 take 1 tablet by mouth once daily at bedtime Baclofen 10 mg tablet Active 10 MG PO Daily at bedtime July 27, 2024 12:00am Calcium Carbonate (5 sources) calcium carbonate (CALCIUM 500 ORAL) Take by mouth daily. Active calcium carbonat e (CALCIUM 500 ORAL) Take by mouth daily. 0 Active Calcium Carbonate 260 mg calcium (648 mg) tablet (1 source) Start: 07-27-2024 take 1 tablet by mouth once daily Calcium Carbonate 260 mg calcium (648 mg) tablet Active 500 MG PO Daily July 27, 2024 12:00am cholecalciferol 0.025 mg oral capsule (6 sources) Vitamin D Start: 07-27-2024 take 1 capsule by mouth once daily Cholecalciferol (Vitamin D3) 25 mcg (1,000 unit) capsule Active 25 MCG PO Daily July 27, 2024 12:00am cholecalciferol, vitamin D3, 5,000 units tablet 1 tablet (5,000 Units total) in the morning. Active diclofenac sodium 50 mg delayed release oral tablet (5 sources) Nonsteroidal Anti-inflammatory Drug take 1 tablet by mouth in the morning diclofenac (VOLTAREN) 50 mg EC tablet Take 1 tablet (50 mg total) by mouth in the morning. Active ferrous sulfate (6 sources) Start: 07-27-19 25 Ferrous Sulfate 325 mg (65 mg iron)/5 mL solution Active MG PO July 27, 2024 12:00am take 1 tablet by amanda th once daily at breakfast ferrous sulfate 325 (65 FE) mg tablet Ta ke 1 tablet (325 mg total) by mouth daily with breakfast. Active folic acid/multivit-min/lute in (CENTRUM SILVER ORAL) (5 sources) take 1 tablet by mouth once daily folic acid/multivit-min/lutein (CENTRUM SILVER ORAL) Take 1 tablet by mouth daily. Active take 1 tablet by mouth once blair y folic acid/multivit-min/lutein (CENTRUM SILVER ORAL) Take 1 tablet by mouth daily. 0 Active furosemide 40 mg oral tablet (7 sources) Loop Diuretic Start: 07-27-2024 take 1 tablet by mouth once daily Furosemide 40 mg tablet Active 40 MG PO Daily July 27, 2024 12:00am Start: 03-18-2023 End: 06-08-2023 take 1 tablet by mouth once daily furosemide (LASIX) 40 mg tablet Take 1 tablet (40 mg total) by mouth daily. PT NEEDS APPT AND LABS FOR FURTHER REFILLS 30 tablet 1 06/08/2023 Active lactobacillus acidophilus [id number] unt oral capsule (5 sources) take 1 tablet by mouth once daily Lactobacillus acidophilus 10 billion cell capsule Take 1 tablet by mouth daily. Active losartan potassium 25 mg oral tablet (1 source) Angiotensin 2 Receptor Minnie Start: 07-27-19 take 1 tablet by mouth once daily Losartan 25 mg tablet Active 25 MG PO Daily July 27, 2024 12:00am 24 hr metoprolol succinate 50 mg extended release oral tablet (8 sources) beta-Adrenergic Minnie Start: 07-27-19 take 1 tablet by mouth once daily Metoprolol Succinate 50 mg tablet extended release 24 hr Active 50 MG PO Daily July 27, 2024 12:00am Start: 09-10-2023 take 1 tablet by amanda th every twenty-four hours in the morning metoprolol succinate XL (TOPROL XL) 50 mg 24 hr tablet TAKE 1 TABLET (50 MG TOTAL) BY MOUTH IN THE MORNING 90 tablet 09/10/2023 Active Start: 04-28-2023 End: 12-06-2023 take 1 tablet by mouth every twenty-four hours in the morning metoprolol succinate XL (TOPROL XL) 50 mg 24 hr tablet Take 1 tablet (50 mg total) by mouth in the morning. 90 tablet 12/06/2023 Active Multivitamin (Daily Multi-Vitamin) tablet (1 source) Start: 07-27-2024 take 1 tablet by mouth once daily Multivitamin (Daily Multi-Vitamin) tablet Active 1 TAB PO Daily July 27, 2024 12:00am pantoprazole 40 mg delayed release oral tablet (6 sources) Proton Pump Inhibitor Start: 07-27-2024 take 1 tablet by mouth once daily Pantoprazole (Protonix) 40 mg tablet,delayed release (DR/EC) Active 40 MG PO Daily July 27, 2024 12:00am take 1 dose by mouth in the morn ing pantoprazole (PROTONIX) [address] for susp in packet Take 1 packet (40 mg total) by mouth in the morning. Active 24 hr pramipexole dihydrochloride 1.5 mg extended release oral tablet (6 sources) Nonergot Dopamine Agonist Start: 07-27-2024 take 1 tablet by mouth once daily at bedtime Pramipexole (Mirapex Er) 1.5 mg tablet extended release 24 hr Active 1.5 MG PO Daily at bedtime July 27, 2024 12:00am take 1.5 tablets by mouth in the morning pramipexole (MIRAPEX) 1 mg tablet Take 1.5 tablets (1.5 mg total) by mouth in the morning. Active pregabalin 50 mg oral capsule (5 sources) Start: 04-27-2022 pregabalin (LYRICA) 50 mg capsule 1 capsule (50 mg total) once daily at bedtime. 04/27/2022 Active spironolactone 25 mg oral tablet (7 sources) Aldosterone Antagonist Start: 07-27-2024 take 1 tablet by mouth once daily Spironolactone 25 mg tablet Active 25 MG PO Daily July 27, 2024 12:00am Start: 06-15-2022 End: 06-15-2023 take 1 tablet by mouth in the morning spironolactone (ALDACTONE) 25 mg tablet Indications: Chronic systolic CHF (congestive heart failure) ([facility]) Take 1 tablet (25 mg total) by mouth in the morning. Need labs and appt for more refills. 90 tablet 06/15/2023 Active sucralfate 1000 mg oral tablet (6 sources) Aluminum Complex Start: 07-27-2024 take 1 tablet by mouth four times daily as needed Sucralfate (Carafate) 1 gram tablet Active 1 GM PO Four times daily as needed July 27, 2024 12:00am take 1 tablet by mouth at bedtim e sucralfate (CARAFATE) 1 gram tablet Take 1 tablet (1 g total) by mouth in the morning and 1 tablet (1 g total) before bedtime. Active traZODone hydrochloride 150 mg oral tablet (6 sources) Serotonin Reuptake Inhibitor Start: 07-27-2024 take 1 tablet by mouth once daily at bedtime as needed Trazodone 150 mg tablet Active 150 MG PO Daily at bedtime as needed July 27, 2024 12:00am take 3 tablets by mo ut once daily as needed traZODone (DESYREL) 50 mg tablet Take 3 tablets (150 mg total) by mouth nightly as needed. Active ubidecarenone 100 mg oral capsule (6 sources) Start: 07-27-2024 take 10 capsules by mouth once daily Coenzyme Q10 100 mg capsule Active 100 MG PO Daily July 27, 2024 12:00am take 1 capsule by mo uth once in the morning coenzyme Q10 100 mg capsule Take 1 capsu le (100 mg total) by mouth in the morning. Active valsartan 40 mg oral tablet (5 sources) Angiotensin 2 Receptor Minnie Start: 08-10-2022 take 0.5 tablet by mouth in the morning valsartan (DIOVAN) 40 mg tablet Take 0.5 tablets (20 mg total) by mouth in the morning. 45 tablet 3 08/10/2022 Active vitamin k1 5 mg oral tablet (1 source) Warfarin Reversal Agent, Vitamin K Start: 07-27-2024 take 1 tablet by mouth once daily Phytonadione (Vitamin K1) 5 mg tablet Active 5 MG PO Daily July 27, 2024 12:00am Problems Active Problems Problem Classification Problem Date Documented Da te Episodic/Chronic Anxiety disorders (5 sources) Anxiety; Translations: [Anxiety disorder, unspecified] Onset: 06-05-2022 06-05-2022 Chronic Cardiac dysrhythmias (20 sources) Unspecified atrial fibrillation; Translations: [Persistent atrial fibrillation] Onset: 06-06-2014 Resolved: 10-11-2020 10-11-2020 Chronic Chronic kidney disease (2 sources) Chronic kidney disease stage 3; Translations: [Stage 3 chronic kidney disease] 07-27-2024 Chronic Conduction disorders (14 sources) Left bundle branch block; Translations: [Left bundle-branch block, unspecified] Onset: 07-13-2014 Resolved: 02-24-2018 10-11-2020 Chronic Congestive heart failure; nonhypertensive (13 sources) Chronic systolic heart failure; Translations: [Chronic systolic (congestive) heart failure] Onset: 08-25-2018 10-11-2020 Chronic Deficiency and other anemia (1 source) Anemia, unspecified; Translations: [ANEMIA UNSPECIFIED] Onset: 09-26-2022 Episodic Diabetes mellitus without complication (1 source) Other abnormal glucose; Translations: [OTHER ABNORMAL GLUCOSE] Onset: 09-26-2022 Episodic Disorders of lipid metabolism (2 sources) Hyperlipidemia; Translations: [Hyperlipidemia, unspecified] 07-27-2024 Chronic Essential hypertension (10 sources) Essential (primary) hypertension; Translations: [Essential hypertension] Onset: 02-18-2022 Chronic Hypertension with complications and secondary hypertension (2 sources) Chronic kidney disease due to hypertension; Translations: [Hypertensive chronic kidney disease with stage 1 through stage 4 chronic kidney disease, or unspecified chronic kidney disease] 07-27-2024 Chronic Nutritional deficiencies (2 sources) Iron deficiency; Translations: [Iron deficiency] 07-27-2024 Episodic Other circulatory disease (7 sources) Presence of other cardiac implants and grafts; Translations: [Other specified cardiac device in situ] Onset: 11-03-2018 10-11-2020 Chronic Other hereditary and degenerative nervous system conditions (5 sources) Restless legs; Translations: [Restless legs syndrome] Onset: 06-05-2022 06-05-2022 Chronic Other nervous system disorders (5 sources) Other chronic pain; Translations: [OTHER CHRONIC PAIN] Onset: 11-06-2021 Chronic Other nutritional; endocrine; and metabolic disorders (5 sources) Obesity; Translations: [Obesity, unspecified] Onset: 10-11-2020 10-11-2020 Chronic Other nutritional; endocrine; and metabolic disorders (5 sources) Body mass index 30+ - obesity; Translations: [Body mass index (BMI) 34.0-34.9, adult] Onset: 02-18-2022 02-18-2022 Chronic Other screening for suspected conditions (not mental disorders or infectious disease) (1 source) Encounter for screening mammogram for malignant neoplasm of breast; Translations: [ENC SCR MAMMO MALIG NEOPLASM BREAST] Onset: 09-26-2022 Episodic Darleen-; endo-; and myocarditis; cardiomyopathy (except that caused by tuberculosis or sexually transmitted disease) (10 sources) Cardiomyopathy; Translations: [Other cardiomyopathies] Onset: 06-06-2014 Resolved: 08-25-2018 10-11-2020 Chronic Residual codes; unclassified (1 source) Sleep apnea, unspecified; Translations: [SLEEP APNEA UNSPECIFIED] Onset: 05-19-2022 Chronic Residual codes; unclassified (5 sources) Obstructive sleep apnea of adult; Translations: [Obstructive [...] ABDOMINAL PAIN] Onset: 05-17-2022 Episodic Cardiac dysrhythmias (5 sources) Bradycardia; Translations: [Bradycardia, unspecified] Resolved: 08-25-2018 08-25-2018 Episodic Malaise and fatigue (5 sources) Fatigue; Translations: [Other fatigue] Onset: 11-03-2018 Resolved: 10-11-2020 10-11-2020 Episodic Other aftercare (1 source) Other fpc (current) drug therapy; Translations: [OTH SUPERVISOR FILLING AND PACKING CURRENT DRUG THERAPY] Onset: 05-19-2022 Episodic Other connective tissue disease (1 source) Fibromyalgia; Translations: [FIBROMYALGIA] Onset: 05-19-2022 Episodic Other connective tissue disease (4 sources) Other muscle spasm; Translations: [OTHER MUSCLE SPASM] Onset: 12-24-2021 Episodic Other gastrointestinal disorders (1 source) Bariatric surgery status; Translations: [BARIATRIC SURGERY STATUS] Onset: 05-19-2022 Episodic Other lower respiratory disease (10 sources) Dyspnea; Translations: [Shortness of breath] Onset: [...] [facility] Office Visiton 03-21-2024 Follow-up visit [id number] Saul Gutiérrez 1945 F Date Provider Department Center 03/21/2024 ROBERT GEE MAGNUS [place] Family History Problem Relation Age of Onset Heart failure Father Family Status - Relation Status Age at Father Level of Service:[id number] [place] OFFICE/OUTPATIENT ESTABLISHED LOW MDM 20 MIN [facility] 36on 02-11-2024 36 Tried to contact patient and she has no VM set up. Will try again on Wednesday. [facility] Documentationon 02-11-2024 Documentation [id number] Saul Gutiérrez 1945 F Date Provider Department [place] 02/11/2024 ADELAIDA VALENCIA Family History Problem Relation Age of Onset Heart failure Father Family Status - Relation Status Age at Father [facility] 36on 02-08-2024 36 Patient had her [...] Dr. Madden until 03/21. Please advise. Thanks. [facility] Telephoneon 02-08-2024 Telephone [id number] Saul Gutiérrez 1945 Date Provider Department [place] 02/08/2024 CARIDAD HENAO MAGNUS [place] Family History Problem Relation Age of Onset Heart failure Father Family Status - Relation Status Age at Father [facility] Office Visiton 12-01-2023 Follow-up visit [id number] Saul Gutiérrez 1945 F Date Provider Department Center 12/01/2023 ADELAIDA VALENCIA Family History Problem Relation Age of Onset Heart failure Father Family Status - Relation Status Age at Father Level of Service:[id number] [place] POSTOP FOLLOW UP VISIT RELATED TO ORIGINAL PX [facility] HPon 11-01-2023 [facility] Electrophysiology Consult Note Reason for visit: [...] was previously seen by [facility] cardiology. She was initially seen by [...] Atrial fibrillation (CMS/HCC) CHF (congestive heart failure) ([facility]) Hypertension Sleep apnea PSH: Past Surgical History: [...] on file Intimate Partner Violence: Unknown (07/23/2023) [place] Safety & Environment Fear of Current or [...] 50 mg tab (more content not included)... [facility] NURSNOTEon 11-01-2023 NURSNOTE RN educated pt on d/ c instructions. RN encouraged pt to voice any questions or concerns. Pt verbalizes no questions or concerns at this time. [facility] Orders Onlyon 10-22-2023 Orders Only [id number] Saul Gutiérrez 1945 F Date Provider Department Center 10/22/2023 [facility] Family History Problem Relation Age of Onset Heart failure Father Family Status - Relation Status Age at Father Normal [facility] Orders Onlyon 08-27-2023 Orders Only [id number] Saul Gutiérrez 1945 F Date Provider Department Center 08/27/2023 LEATHA BAHENA MAGNUS [facility] Family History Problem Relation Age of Onset Heart failure Father Family Status - Relation Status Age at Father Normal [facility] INSULINon 09-23-2022 Insulin 7.9 uIU/mL Normal 2.6-24.9 [facility] Comment on above: Performed By: #### I NSULIN ####[facility] [address] [place], [place] [address]PkViky Ravin Dior CBC AUTO DIFFon 09-22-2022 BASO # 0.0 103/ul Normal 0.0-0.1 [facility] Comment on above: Performed By: #### C BC ####[facility] [address] [place] [address]Dr. Ravin Dior Basophils/100 WBC (Bld) 0.4 % Normal 0.2-2.0 [facility] Comment on above: Performed By: #### C BC ####[facility] [address] [place] [address]Dr. Ravin Dior EO # 0.6 103/ul Normal 0.0-0.7 [facility] Comment on above: Performed By: #### C BC ####[facility] [address] [place] [address]Dr. Ravin Dior Eosinophils/100 WBC (Bld) 6.6 % Normal 0.9-7.0 [facility] Comment on above: Performed By: #### C BC ####[facility] [address] [place], [place] [address]Dr. Ravin Dior Erythrocyte distribution width (RBC) [Ratio] 16.2 % Critically high 11.0-15.0 [facility] Comment on above: Performed By: #### C BC ####[facility] [address] [place], [place] [address]Dr. Ravin Dior Hematocrit (Bld) [Volume fraction] 43.3 % Normal 36.0-48.0 [facility] Comment on above: Performed By: #### C BC ####[facility] [address] [place], [place] [address]Dr. Ravin Dior Hemoglobin (Bld) [Mass/Vol] 13.4 g/dL Normal 12.0-16.0 [facility] Comment on above: Performed By: #### C BC ####[facility] [address] [place] [address]Dr. Ravin Dior IG # 0.05 10e3/ul Critically high 0.00-0.03 [facility] Comment on above: Performed By: #### C BC ####[facility] [address] [place] [id number]. Ravin Dior IG % 0.5 % Normal 0.0-0.5 [facility] Comment on above: Performed By: #### C BC ####[facility] [address] [place] [id number]. Ravin Ovi LYMPH # 2.1 103/ul Normal 1.2-3.8 [facility] Comment on above: Performed By: #### C BC ####[facility] [address] [place] [id number]. Ravin Ovi Lymphocytes/100 WBC (Bld) 23.1 % Normal 20.5-60.0 [facility] Comment on above: Performed By: #### C BC ####[facility] [address] [place] [id number]. Ravin Ovi MANUAL DIFF REQ NO Normal [facility] Comment on above: Performed By: #### C BC ####[facility] [address] [place] [id number]. Ravin Ovi MCH (RBC) [Entitic mass] 29.5 pg Normal 26.7-34.0 [facility] Comment on above: Performed By: #### C BC ####[facility] [address] [place] [address]Dr. Ravin Dior MCHC (RBC) [Mass/Vol] 30.9 g/dL Normal 29.9-35.2 [facility] Comment on above: Performed By: #### C BC ####[facility] [address] [place] [id number]. Ravin Ovi MCV (RBC) [Entitic vol] 95.4 fL Normal 81.0-99.0 [facility] Comment on above: Performed By: #### C BC ####[facility] [address] [place] [id number]. Ravin Ovi MONO # 0.5 103/ul Normal 0.3-0.8 [facility] Comment on above: Performed By: #### C BC ####[facility] [address] [place] [address]Dr. Ravin Ovi Monocytes/100 WBC (Bld) 5.8 % Normal 1.7-12.0 [facility] Comment on above: Performed By: #### C BC ####[facility] [address] [place] [id number]. Ravin Dior NEUT # 5.8 103/ul Normal 1.4-6.5 [facility] Comment on above: Performed By: #### C BC ####[facility] [address] [place] [id number]. Ravin Ovi Neutrophils/100 WBC (Bld) 63.6 % Normal 43.0-75.0 [facility] Comment on above: Performed By: #### C BC ####[facility] [address] [place] [id number]. Ravin Ovi Platelet mean volume (Bld) [Entitic vol] 10.7 fL Normal 9.5-13.5 [facility] Comment on above: Performed By: #### C BC ####[facility] [address] [place] [id number]. Ravni iDor PLT 223 103/ul Normal 150-450 [facility] Comment on above: Performed By: #### C BC ####[facility] [address] [place] [id number]. Novalilliana Dior RBC 4.54 106/ul Normal 4.20-5.40 [facility] Comment on above: Performed By: #### C BC ####[facility] [address] [place] [id number]. Ravin Ovi WBC 9.2 103/ul Normal 4.0-11.0 [facility] Comment on above: Performed By: #### C BC ####[facility] [address] [place] [id number]. Ravin Ovi FREE THYROXINE INDEX T7on FTI 2.44 Normal 1.30-4.50 [facility] Comment on above: Performed By: #### C MP, T7, TSH, LIPID #### [facility] [address] [place] [id number] [address] Ravin Dior T3U 33.0 % Normal 30.0-39.0 [facility] Comment on above: Performed By: #### C MP, T7, TSH, LIPID #### [facility] [address] [place], [place] [address] Dr. Ravin Dior T4 [Mass/Vol] 7.40 ug/dL Normal 4.80-13.90 [facility] Comment on above: Performed By: #### C MP, T7, TSH, LIPID #### [facility] [address] [place], [place] [address] Dr. Ravin Dior GLYCOHEMOGLOBIN A1Con 2022 ADA RECOMMENDATION SEE BELOW Normal [facility] Comment on above: Result Comment: ADA RECOMMENDED LIMIT 4.0 - 6.0 ADA THERAPEUTIC TARGET < 7.0 ACTION SUGGESTED > 7.0 Performed By: #### A 1C ####[facility] [address] [place] [address]DrViky Dior Glucose [Mass/Vol] 105 mg/dL Normal [facility] Comment on above: Performed By: #### A 1C ####[facility] [address] [place] [address]DrViky Dior HbA1c (Bld) [Mass fraction] 5.3 % Normal 4.5-6.2 [facility] Comment on above: Performed By: #### A 1C ####[facility] [address] [place] [address]Dr. Ravin Dior IRONon 09-22-2022 Iron [Mass/Vol] 81.0 ug/dL Normal 50.0-170.0 [facility] Comment on above: Performed By: #### I SEAMUS ####[facility] [address] [place] [address]DrViky Dior LIPID PROFILEon 09-22-2022 CHOL-HDL RATIO NORM SEE BELOW Normal [facility] Comment on above: Result Comment: 3.3 - 4.4 LOW RISK 4.4 - 7.1 AVERAGE RISK 7.1 - 11.0 MODERATE RISK >11.0 HIGH RISK Performed By: #### C MP, T7, TSH, LIPID ####[facility] [address] [place] [id number] Dior Cholesterol [Mass/Vol] 159 mg/dL Normal <=200 [facility] Comment on above: Performed By: #### C MP, T7, TSH, LIPID ####[facility] [address] [place] [id number]. Ravin Dior Cholesterol in HDL [Mass/Vol] 47 mg/dL Normal 40-60 [facility] Comment on above: Performed By: #### C MP, T7, TSH, LIPID ####[facility] [address] [place] [id number]. Ravin Dior Cholesterol in LDL [Mass/Vol] 96.4 mg/dL Normal [facility] Comment on above: Performed By: #### C MP, T7, TSH, LIPID ####[facility] [address] [place] [id number]. Ravin Dior Cholesterol.total/Cho lesterol in HDL [Mass ratio] 3.4 {ratio} Normal [facility] Comment on above: Performed By: #### C MP, T7, TSH, LIPID ####[facility] [address] [place] [address]Dr. Ravin Dior HDL NORMAL > or = 60 mg/dl - LO W CARDIOVASCULAR RISK <40 mg/dl - HIGH CARDIOVASCULAR RISK Normal [facility] Comment on above: Performed By: #### C MP, T7, TSH, LIPID ####[facility] [address] [place] [address]Dr. Ravin Dior LDL CALC NORMAL SEE BELOW Normal [facility] Comment on above: Result Comment: <100 mg/dl OPTIMAL 100 - 129 mg/dl NEAR OR ABOVE OPTIMAL 130 - 159 mg/dl BORDERLINE HIGH 160 - 189 mg/dl HIGH >190 mg/dl VERY HIGH Performed By: #### C MP, T7, TSH, LIPID ####[facility] [address] [place] [id number]. Ravin Dior Triglyceride [Mass/Vol] 78 mg/dL Normal <=150 [facility] Comment on above: Performed By: #### C MP, T7, TSH, LIPID ####[facility] [address] [place] [id number]. Novalilliana Dior VLDL CALC 15.6 mg/dL Normal [facility] Comment on above: Performed By: #### C MP, T7, TSH, LIPID ####[facility] [address] [place], [place] [address]WlDr. Ravin Dior MG MAMM SCREEN 3D NIKOS CADon 09-22-2022 MG MAMM SCREEN 3D NIKOS CAD Patient: SAUL GUTIÉRREZ Exam Date: 09/22/2022 : 1945 Gender:F Ordering : [facility] STALEY [facility] Admission #: [id number] Family : Order #: [id number] CLICK HERE TO VIEW EXAM RADIOLOGY REPORT [...] Treatments None Family Cancers None LOCATION: [facility] BREAST COMPOSITION: Almost entirely fatty. FINDINGS: DIAGNOSTIC [...] on 09/22/2022 at 17:02 Normal [facility] PROF 14(COMP METB)on 023 Albumin [Mass/Vol] 3.3 g/dL Critically low 3.4-5.0 Th e [facility] Comment on above: Performed By: #### C MP, T7, TSH, LIPID #### [facility] Laboratory [address] [place], [place] [address] Dr. Ravin Dior Albumin/Globulin [Mass ratio] 0.7 {ratio} Normal [facility] Comment on above: Performed By: #### C MP, T7, TSH, LIPID #### [facility] Laboratory [address] [place] [address] [address] Ravin Dior ALP [Catalytic activity/Vol] 207 U/L Critically high 46-116 [facility] Comment on above: Performed By: #### C MP, T7, TSH, LIPID #### [facility] Laboratory [address] [place] [address] [address] Ravin Dior ALT [Catalytic activity/Vol] 47 U/L Normal 14-59 [facility] Comment on above: Performed By: #### C MP, T7, TSH, LIPID #### [facility] [address] [place] [address] [address] Ravin Dior Anion gap [Moles/Vol] 11.5 mmol/L Normal [facility] Comment on above: Performed By: #### C MP, T7, TSH, LIPID #### [facility] Laboratory [address] [place] [address] Dr. Ravin Dior AST [Catalytic activity/Vol] 35 U/L Normal 15-37 [facility] Comment on above: Performed By: #### C MP, T7, TSH, LIPID #### [facility] Laboratory [address] [place] [address] [address] Ravin Dior Bilirubin [Mass/Vol] 0.6 mg/dL Normal 0.2-1.0 [facility] Comment on above: Performed By: #### C MP, T7, TSH, LIPID #### [facility] [address] [place] [address] [address] Ravin Dior Calcium [Mass/Vol] 9.2 mg/dL Normal 8.5-10.1 [facility] Comment on above: Performed By: #### C MP, T7, TSH, LIPID #### [facility] Laboratory [address] [place] [address] [address] Ravin Dior Chloride [Moles/Vol] 109 mmol/L Critically high 98-107 [facility] Comment on above: Performed By: #### C MP, T7, TSH, LIPID #### [facility] Laboratory [address] [place] [address] [address] Ravin Dior CO2 [Moles/Vol] 27.7 mmol/L Normal 21.0-32.0 [facility] Comment on above: Performed By: #### C MP, T7, TSH, LIPID #### [facility] Laboratory [address] [place] [address] Dr. Ravin Dior Creatinine [Mass/Vol] 0.94 mg/dL Normal 0.55-1.02 [facility] Comment on above: Performed By: #### C MP, T7, TSH, LIPID #### [facility] Laboratory [address] [place] [address] Dr. Ravin Dior EGFR-AF SOUTH AFRICAN >60 Normal >=60 [facility] Comment on above: Performed By: #### C MP, T7, TSH, LIPID #### [facility] Laboratory [address] [place] [address] Dr. Ravin Dior EGFR-NON AF SOUTH AFRICAN 58 mL/min/1.73m2 Critically low >=60 [facility] Comment on above: Performed By: #### C MP, T7, TSH, LIPID #### [facility] Laboratory [address] [place] [address] Dr. Ravin Dior Globulin (S) [Mass/Vol] 4.7 g/dL Normal [facility] Comment on above: Performed By: #### C MP, T7, TSH, LIPID #### [facility] Laboratory [address] [place] [address] Dr. Ravin Dior Glucose [Mass/Vol] 95 mg/dL Normal 74-106 [facility] Comment on above: Performed By: #### C MP, T7, TSH, LIPID #### [facility] Laboratory [address] [place] [address] Dr. Ravin Dior Potassium [Moles/Vol] 4.2 mmol/L Normal 3.5-5.1 [facility] Comment on above: Performed By: #### C MP, T7, TSH, LIPID #### [facility] Laboratory [address] [place] [address] Dr. Ravin Dior Protein [Mass/Vol] 8.0 g/dL Normal 6.4-8.2 [facility] Comment on above: Performed By: #### C MP, T7, TSH, LIPID #### [facility] Laboratory [address] [place] [address] [address] Ravin Dior Sodium [Moles/Vol] 144 mmol/L Normal 136-145 [facility] Comment on above: Performed By: #### C MP, T7, TSH, LIPID #### [facility] [address] [place] [address] [address] Ravin Dior Urea nitrogen [Mass/Vol] 21.0 mg/dL Critically high 7.0-18.0 [facility] Comment on above: Performed By: #### C MP, T7, TSH, LIPID #### [facility] [address] [place] [address] [address] Ravin Dior Urea nitrogen/Creatinine [Mass ratio] 22.3 mg/mg Normal [facility] Comment on above: Performed By: #### C MP, T7, TSH, LIPID #### [facility] [address] [place] [address] [address] Ravin Dior TSHon 09-22-2022 TSH 2.085 uIU/mL Normal 0.358-3.740 [facility] Comment on above: Performed By: #### C MP, T7, TSH, LIPID #### [facility] [address] [place] [address] [address] ABD/PELVIS WO CONon [...] was used, including Automated Exposure Control. FINDINGS: Pipelines Supervisor: No pertinent findings, which are not [...] the largest most superior hernia. Normal [facility] CBC AUTO DIFFon 05-17-2022 BASO # 0.0 103/ul Normal 0.0-0.1 [facility] Comment on above: Performed By: #### C BC ####[facility] [address] [place], [place] [address]LvViky Dior Basophils/100 WBC (Bld) 0.2 % Normal 0.2-2.0 [facility] Comment on above: Performed By: #### C BC ####[facility] [address] [place], [place] [address]WmViky Dior EO # 0.1 103/ul Normal 0.0-0.7 [facility] Comment on above: Performed By: #### C BC ####[facility] [address] [place] [address]Dr. Ravin Dior Eosinophils/100 WBC (Bld) 1.4 % Normal 0.9-7.0 [facility] Comment on above: Performed By: #### C BC ####[facility] [address] [place], [place] [address]Dr. Ravin Dior Erythrocyte distribution width (RBC) [Ratio] 13.7 % Normal 11.0-15.0 [facility] Comment on above: Performed By: #### C BC ####[facility] [address] [place], [place] [address]Dr. Ravin Dior Hematocrit (Bld) [Volume fraction] 44.4 % Normal 36.0-48.0 [facility] Comment on above: Performed By: #### C BC ####[facility] [address] [place], [place] [address]Dr. Ravin Dior Hemoglobin (Bld) [Mass/Vol] 14.7 g/dL Normal 12.0-16.0 [facility] Comment on above: Performed By: #### C BC ####[facility] [address] [place], [place] [address]Dr. Ravin Dior IG # 0.05 10e3/ul Critically high 0.00-0.03 [facility] Comment on above: Performed By: #### C BC ####[facility] [address] [place], [place] [address]Dr. Ravin Dior IG % 0.5 % Normal 0.0-0.5 [facility] Comment on above: Performed By: #### C BC ####[facility] [address] [place], [place] [address]DrViky Ravin Ovi LYMPH # 1.7 103/ul Normal 1.2-3.8 [facility] Comment on above: Performed By: #### C BC ####[facility] [address] [place], [place] [address]Dr. Ravin Ovi Lymphocytes/100 WBC (Bld) 17.1 % Critically low 20.5-60.0 [facility] Comment on above: Performed By: #### C BC ####[facility] [address] [place] [address]DrViky Dior MANUAL DIFF REQ NO Normal [facility] Comment on above: Performed By: #### C BC ####[facility] [address] [place] [id number]. Ravin Dior MCH (RBC) [Entitic mass] 30.7 pg Normal 26.7-34.0 [facility] Comment on above: Performed By: #### C BC ####[facility] [address] [place] [address]Dr. Ravin Dior MCHC (RBC) [Mass/Vol] 33.1 g/dL Normal 29.9-35.2 [facility] Comment on above: Performed By: #### C BC ####[facility] [address] [place], [place] [address]DrViky Dior MCV (RBC) [Entitic vol] 92.7 fL Normal 81.0-99.0 [facility] Comment on above: Performed By: #### C BC ####[facility] [address] [place], [place] [address]DrViky Dior MONO # 0.6 103/ul Normal 0.3-0.8 [facility] Comment on above: Performed By: #### C BC ####[facility] [address] [place], [place] [address]DrViky Dior Monocytes/100 WBC (Bld) 5.7 % Normal 1.7-12.0 [facility] Comment on above: Performed By: #### C BC ####[facility] [address] [place], [place] [address]DrViky Dior NEUT # 7.7 103/ul Critically high 1.4-6.5 [facility] Comment on above: Performed By: #### C BC ####[facility] [address] [place], [place] [address]DrViky Dior Neutrophils/100 WBC (Bld) 75.1 % Critically high 43.0-75.0 [facility] Comment on above: Performed By: #### C BC ####[facility] [address] [place] [address]Dr. Ravin Dior Platelet mean volume (Bld) [Entitic vol] 10.4 fL Normal 9.5-13.5 [facility] Comment on above: Performed By: #### C BC ####[facility] [address] [place], [place] [address]Dr. Ravin Dior PLT 294 103/ul Normal 150-450 [facility] Comment on above: Performed By: #### C BC ####[facility] [address] [place], [place] [address]Dr. Ravin Dior RBC 4.79 106/ul Normal 4.20-5.40 [facility] Comment on above: Performed By: #### C BC ####[facility] [address] [place], [place] [address]Dr. Ravin Dior WBC 10.2 103/ul Normal 4.0-11.0 [facility] Comment on above: Performed By: #### C BC ####[facility] [address] [place], [place] [address]DrViky Dior ER URINE PROFILEon 2 Bilirubin Ql (U) Negative Normal NEGATIVE [facility] Comment on above: Performed By: #### Tammy SOUTH ICRO #### [facility] Laboratory [address] [place] [address] Dr. Ravin Dior Clarity (U) CLEAR Normal CLEAR [facility] Comment on above: Performed By: #### Tammy SOUTH UMICRO #### [facility] Laboratory [address] [place] [address] Dr. Ravin Dior Color (U) LT. YELLOW Normal YELLOW [facility] Comment on above: Performed By: #### Tammy SOUTH UMICRO #### [facility] Laboratory [address] [place] [address] Dr. Ravin Dior ERUAHD A micrscopic examination will be performed if indicated. Normal [facility] Comment on above: Performed By: #### E RUR, UMICRO #### [facility] Laboratory [address] [place] [address] Dr. Ravin Dior Glucose Ql (U) Negative Normal NEGATIVE [facility] Comment on above: Performed By: #### Tammy SOUTH UMICRO #### [facility] Laboratory [address] [place] [address] Dr. Ravin Dior Hemoglobin Ql (U) Negative Normal NEGATIVE [facility] Comment on above: Performed By: #### Tammy SOUTH UMICRO #### [facility] Laboratory [address] [place] [address] Dr. Ravin Dior Ketones Ql (U) TRACE Abnormal NEGATIVE [facility] Comment on above: Performed By: #### JAZ KAUFFMANICRO #### [facility] Laboratory [address] [place] [address] Dr. Ravin Dior LEUKOCYTES SMALL Abnormal NEGATIVE [facility] Comment on above: Performed By: #### DENY KAUFFMANRO #### [facility] Laboratory [address] [place] [address] Dr. Ravin Dior Nitrite Ql (U) Negative Normal NEGATIVE [facility] Comment on above: Performed By: #### DENY KAUFFMANRO #### [facility] Laboratory [address] [place] [address] Dr. Ravin Dior pH (U) 6.0 [pH] Normal 5-9 [facility] Comment on above: Performed By: #### DENY KAUFFMANRO #### [facility] Laboratory [address] [place] [address] Dr. Ravin Dior SPEC GRAVITY 1.010 Normal 1.005-<=1.025 [facility] Comment on above: Performed By: #### JAZ KAUFFMANICRO #### [facility] Laboratory [address] [place] [address] Dr. Ravin Dior UA PROTEIN Negative Normal NEGATIVE/ TRACE [facility] Comment on above: Performed By: #### JAZ KAUFFMANICRO #### [facility] Laboratory [address] [place] [address] Dr. Ravin Dior UR MICRO IND INDICATED Normal [facility] Comment on above: Performed By: #### E BRANNON, UMICRO #### [facility] [address] [place] [address] [address] Ravin Dior Urobilinogen Qn (U) 0.2 {Chandler'U}/dL Normal 0.2 - 1. 0 [facility] Comment on above: Performed By: #### E DENY SOUTHRO #### [facility] Laboratory [address] [place] [address] [address] Ravin Dior LACTATE/LACTIC ACIDon 2021 Lactate [Moles/Vol] 1.3 mmol/L Normal 0.4-1.9 [facility] Comment on above: Performed By: #### L ACT ####[facility] [address] [place] [address]Dr. Ravin Dior LIPASEon 05-17-2022 Lipase [Catalytic activity/Vol] 63.0 U/L Critically low 73.0-393.0 [facility] Comment on above: Performed By: #### C MP, LIPA #### [facility] Laboratory [address] [place] [address] Dr. Ravin Dior PROF 14(COMP METB)on 022 Albumin [Mass/Vol] 3.4 g/dL Normal 3.4-5.0 [facility] Comment on above: Performed By: #### C MP, LIPA #### [facility] Laboratory [address] [place] [address] Dr. Ravin Dior Albumin/Globulin [Mass ratio] 0.8 {ratio} Normal [facility] Comment on above: Performed By: #### C MP, LIPA #### [facility] [address] [place] [address] [address] Ravin Dior ALP [Catalytic activity/Vol] 143 U/L Critically high 46-116 [facility] Comment on above: Performed By: #### C MP, LIPA #### [facility] [address] [place] [address] [address] Ravin Dior ALT [Catalytic activity/Vol] 29 U/L Normal 14-59 [facility] Comment on above: Performed By: #### C MP, LIPA #### [facility] [address] [place] [address] [address] Ravin Dior Anion gap [Moles/Vol] 7.6 mmol/L Normal [facility] Comment on above: Performed By: #### C MP, LIPA #### [facility] [address] [place] [address] [address] Ravin Dior AST [Catalytic activity/Vol] 39 U/L Critically high 15-37 [facility] Comment on above: Performed By: #### C MP, LIPA #### [facility] [address] [place] [address] [address] Ravin Dior Bilirubin [Mass/Vol] 0.7 mg/dL Normal 0.2-1.0 [facility] Comment on above: Performed By: #### C MP, LIPA #### [facility] [address] [place] [address] [address] Ravin Dior Calcium [Mass/Vol] 9.1 mg/dL Normal 8.5-10.1 [facility] Comment on above: Performed By: #### C MP, LIPA #### [facility] [address] [place] [address] [address] Ravin Dior Chloride [Moles/Vol] 102 mmol/L Normal 98-107 [facility] Comment on above: Performed By: #### C MP, LIPA #### [facility] [address] [place] [address] [address] Ravin Dior CO2 [Moles/Vol] 31.1 mmol/L Normal 21.0-32.0 [facility] Comment on above: Performed By: #### C MP, LIPA #### [facility] [address] [place] [address] [address] Ravin Dior Creatinine [Mass/Vol] 0.88 mg/dL Normal 0.55-1.02 [facility] Comment on above: Performed By: #### C MP, LIPA #### [facility] [address] [place] [address] [address] Ravin Dior EGFR-AF SOUTH AFRICAN >60 Normal >=60 [facility] Comment on above: Performed By: #### C MP, LIPA #### [facility] [address] [place] [address] [address] Ravin Dior EGFR-NON AF SOU[place] AFRICAN >60 Normal >=60 [facility] Comment on above: Performed By: #### C MP, LIPA #### [facility] [address] [place] [address] [address] Ravin Dior Globulin (S) [Mass/Vol] 4.5 g/dL Normal [facility] Comment on above: Performed By: #### C MP, LIPA #### [facility] [address] [place] [address] [address] Ravin Dior Glucose [Mass/Vol] 100 mg/dL Normal 74-106 [facility] Comment on above: Performed By: #### C MP, LIPA #### [facility] Laboratory [address] [place] [address] Dr. Ravin Dior Potassium [Moles/Vol] 3.7 mmol/L Normal 3.5-5.1 [facility] Comment on above: Performed By: #### C MP, LIPA #### [facility] [address] [place] [address] [address] Ravin Dior Protein [Mass/Vol] 7.9 g/dL Normal 6.4-8.2 [facility] Comment on above: Performed By: #### C MP, LIPA #### [facility] [address] [place] [address] [address] Ravin Dior Sodium [Moles/Vol] 137 mmol/L Normal 136-145 [facility] Comment on above: Performed By: #### C MP, LIPA #### [facility] [address] [place] [address] [address] Ravin Dior Urea nitrogen [Mass/Vol] 12.0 mg/dL Normal 7.0-18.0 [facility] Comment on above: Performed By: #### C MP, LIPA #### [facility] [address] [address] [address] Ravin Dior Urea nitrogen/Creatinine [Mass ratio] 13.6 mg/mg Normal [facility] Comment on above: Performed By: #### C MP, LIPA #### [facility] [address] [place] [address] Dr. Ravin Dior URINE MICROSCOPIC ONLYon BACTERIA NONE SEEN Normal NONE SEEN [facility] Comment on above: Performed By: #### E RUR, UMICRO #### [facility] [address] [place] [address] Dr. Ravin Dior Bacteria identified Cx Nom (U) NOT INDICATED Normal [facility] Comment on above: Performed By: #### E RUR, UMICRO #### [facility] [address] [place] [address] Dr. Ravin Dior CAST NONE SEEN Normal NONE SEEN [facility] Comment on above: Performed By: #### E RUR, UMICRO #### [facility] [address] [place] [address] Dr. Ravin Dior Crystals LM Nom (Urine sed) NONE SEEN Normal NONE SEEN [facility] Comment on above: Performed By: #### E RUR, UMICRO #### [facility] [address] [place] [address] Dr. Ravin Dior Epithelial cells LM Ql (Urine sed) FEW Abnormal NONE SEEN /RARE [facility] Comment on above: Performed By: #### E RUR, UMICRO #### [facility] [address] [place] [address] Dr. Ravin Dior MUCOUS NONE SEEN Normal NONE SEEN [facility] Comment on above: Performed By: #### E RUR, UMICRO #### [facility] [address] [place] [address] Dr. Ravin Dior RBC NONE SEEN Abnormal 0-2 [facility] Comment on above: Performed By: #### E RUR, UMICRO #### [facility] [address] [place] [address] Dr. Ravin Dior WBC 0-2 Abnormal NONE SEEN [facility] Comment on above: Performed By: #### E RUR, UMICRO #### [facility] [address] [address] [address] Ravin Dior Ambulatory Clinical Summaryo n 07-24-2020 Ambulatory Clinical Summary {[id number]}CD:[id number] Normal [facility] [...] course, # 28 cap(s), Refills(s) 0, Pharmacy: [facility]/pharmacy #[id number], 165, cm, 07/24/20 12:03:00 EST, Height/Length Dosing, 95.9, kg, 07/24/20 12:03:00 EST, Weight Dosing metronidazole, 250 mg = 1 tab(s), Oral, TID, X 7 day(s), # 21 tab(s), Refills(s) 0, Pharmacy: [facility]/pharmacy #[id number], 165, cm, 07/24/20 12:03:00 EST, [...] water, # 160 cap(s), Refills(s) 1, Pharmacy: [facility]/pharmacy #[id number], 165, cm, 07/24/20 12:03:00 EST, Height/Length Dosing, 95.9, kg, 07/24/20 12:03:... Orders: pantoprazole, 40 mg = 2 tab(s), Oral, Daily, X 90 day(s), # 180 tab(s), Refills(s) 3, Pharmacy: [facility]/pharmacy #[id number], 165, cm, 07/24/20 12:03:00 EST, Height/Length Dosing, 95.9, kg, 07/24/20 12:03:00 EST, Weight Dosing Follow-up With When Contact Information Isabelle Ramirez MD In 12 months [address] [place] [address]- Additional Instructions: Problem List/Past Medical History Ongoing [...] 12/16/2018 Exercise - Occasional exercise, 12/16/2018 Other Ehyjyyzv-4-7 cups blair;y, 12/16/2018 Substance Abuse - Denies Substance Abuse, 12/16/2018 Tobacco Never (less than 100 in lifetime) Tobacco Use:., 07/24/2020 Never (less than 100 in lifetime) Tobacco Use:. Never Smokeless Tobacco Use:., 02/01/2019 [facility] Comment on above: Result Comment: Elec tronically Signed By: Taylor Mccauley MD, Isabelle\.bernie\Date and Time Signed: 07/24/20 13:13 EST Auth for Release of Medical Recordson 02-09-2020 Auth for Release of Medical Records [id number]:127 [facility] [address] [facility] January 24, 2020 SAUL GUTIÉRREZ [address] [place] [address] SAUL GUTIÉRREZ 1945 Dear Saul, This is a reminder that you are due for an appointment with Dr. Garland or Dr. Mccauley. Please call [facility] at [phone] to schedule an appointment at your earliest convenience. Thank you, [facility] Vital Signs Date Time Vital Sign Value Performing Clinician Chuckie osborne 07-27-2024 10:30-0500 Diastolic blood pressure 68 mm[Hg] [facility] 07-27-2024 10:30-0500 Systolic blood pressure 96 mm[Hg] [facility] 07-27-2024 10:13-0500 Body height 165.1 cm [facility] 07-27-2024 10:13-0500 Body mass index (BMI) [Ratio] 31.3 kg/m2 [facility] 07-27-2024 10:13-0500 Body weight 85.33 kg [facility] 07-27-2024 10:13-0500 Heart rate 85 /min [facility] 07-27-2024 10:13-0500 Respiratory rate 16 /min [facility] 07-27-2024 10:13-0500 SaO2% (BldA) [Mass fraction] 98 % [facility] Encounters Encounter Date Encounter Type Care Provider Facility Start: 07-27-2024 End: 07-27-2024 ambulatory [facility] Work Phone: Start: 07-27-2024 End: 07-27-2024 Patient encounter procedure [facility] Ne[facility] Kevin Work Phone: Start: 07-11-2024 ambulatory [facility] Start: 06-15-2024 ambulatory [facility] Start: 05-22-2024 ambulatory [facility] Start: 05-18-2024 ambulatory [facility] Start: 05-16-2024 ambulatory [facility] Start: 05-15-2024 ambulatory [facility] Start: 05-04-2024 ambulatory [facility] Start: 05-04-2024 Encounter for preprocedural cardiovascular examination [facility] Start: 04-20-2024 ambulatory [facility] Start: 03-27-2024 ambulatory [facility] Start: 03-21-2024 End: 03-21-2024 ambulatory [facility] Start: 03-17-2024 ambulatory [facility] Start: 02-08-2024 End: 02-08-2024 ambulatory [facility] Start: 01-18-2024 ambulatory [facility] Start: 01-17-2024 End: 01-17-2024 ambulatory CARIDAD GARNER Not Available Start: 01-11-2024 End: 01-11-2024 ambulatory SANDIE PAGE Not Available Start: 01-05-2024 ambulatory [facility] Start: 12-28-2023 End: 12-28-2023 Telephone encounter [facility] Start: 12-20-2023 End: 12-20-2023 ambulatory SANDIE PAGE Not Available Start: 12-16-2023 ambulatory [facility] Start: 12-06-2023 End: 12-06-2023 Refill Sonia Tenorio RN [facility] Comment on above: Med Refill Start: 12-01-2023 End: 12-01-2023 ambulatory ADELAIDA RIZO [facility] Start: 11-25-2023 ambulatory SHAYY ORTIZ [facility] Start: 11-24-2023 ambulatory [facility] Start: 11-23-2023 ambulatory [facility] Start: 11-11-2023 End: 11-11-2023 ambulatory SHAR GARCÍA Not Available Start: 11-01-2023 ambulatory [facility] Start: 11-01-2023 End: 11-01-2023 ambulatory [facility] Start: 09-10-2023 End: 09-10-2023 Refill Mac Yaima [employer] Work Phone: [facility] Comment on above: Med Refill Start: 08-10-2023 End: 08-10-2023 ambulatory [facility] Start: 06-11-2023 Refill Mike means MD Work Phone: [facility] Comment on above: Med Refill Start: 06-05-2023 Refill Mac Velásquezvelvet horne [employer] Work Phone: [facility] Comment on [...] Treatment Date Care Activity Detail Author Start: 01-30-2024 Influenza vaccination Influenza Vacc ine [facility] Start: 08-25-2023 Adult BMI Screening Adult BMI Screen ing [facility] Start: 08-25-2023 Tobacco Screening Tobacco Screening [facility] Start: 01-29-2023 COVID-19 Vaccine ( season) COVID-19 Vaccine ( season) [facility] Start: 01-29-2023 Influenza vaccination Influenza Vacc ine [facility] Start: 11-03-2022 ambulatory Ambulatory Facility:H 1 Start: 2010 Fall Risk Screening [facility] Start: 1995 Administration of varicella zoster vaccine Zoster (Shingles) [facility]: 1964 DTaP,Tdap and Td Vac cines (1 - Tdap) DTaP,Tdap and Td Vaccines (1 - Tdap) [facility] Start: 1963 Adult BMI Follow Up Plan [facility] Start: 1957 [facility] Start: 1945 Medicare Annual Well ness Visit Medicare [facility] Well[facility] End: 06-08-2024 Basic metabolic 2000 panel - Serum or Plasma Basic Metabolic Panel Lab Routine Essential hypertension 1 Occurrences starting 06/08/2023 until 06/08/2024 [facility] Work Phone: Comment on above: 1 Occurrences starti ng 06/08/2023 until 06/08/2024 Renal function 2000 panel - Serum or Plasma [facility] US Kidney - [facility] Immunizations Immunization Date Immunization Notes Care Provider Fa cility 05-08-2021 influenza virus vaccine, unspecified formulation Mac Erwin [employer] Work Phone: [facility] [employer] [facility] Payers Date Payer Category Payer Medicare [employer] MEDICARE [place] [id number] 2013-Present [phone] [address] [address] [place] [address] [id number] 1959 Medicare [id number] 1945 Unknown [id number] 1945 Unknown [id number] 1945 Unknown [id number] 1945 Unknown [id number] 1945 Unknown [id number] 1945 Unknown [id number] 1945 Unknown [id number] 1945 Unknown [id number] 1945 Unknown [id number] 1945 Unknown [id number] 1945 Unknown [id number] Medicare Medicare [id number] Social History Date Type Detail Facility Start: 05-26-2022 End: 07-27-2024 Tobacco smoking status NHIS Never smoked tobacco [facility] Start: 05-26-2022 Tobacco use and exposure Smoke less tobacco non-user [facility] Start: 08-24-2022 Alcohol intake 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) [facility] Start: 07-04-2020 End: 08-24-2022 History of Social function [facility] Start: 07-04-2020 End: 08-24-2022 Tobacco use panel [facility] Housing Instability Unknown [facility] Start: 1945 Sex Assigned At Not on file P [facility] Start: 07-27-2024 Sex Female (finding) [facility] Start: 1945 Sex Assigned At Female F [facility] Medical Equipment Procedure Code Equipment Code Equipment Origin al Text Equipment Identifier Dates Mesh [id number] 3d Rect Plstr Clgn Symbotex 2 Sd Comp Mfl Babsr Rpl [id number] - [facility] - [id number] Start: 06-30-2022 Dev Clsr 30fr Watchman 30mm - [id number] Start: 10-28-2018 Clinical Notes 12-24-2021 to 03-21-2024 Telephone Encounter - Vera Spears - 12/28/2023 9:01 AM EDTTelephone Encounter - Vera Spears - 12/28/2023 9:01 AM EDTTelephone Encounter - Sonia Tenorio RN - 12/06/2023 10:37 AM EDT Note Date & Type Note Facility 03-21-2024 [...] GI bleed. [facility]. She was [facility] seen [...] on file Intimate Partner Violence: Unknown (07/23/2023) [place] Safety & [place] Fear of Current or [...] mg tablet Ta (more content not included)... [facility] 02-14-2024 Note This report has been cancelled. [facility] 02-11-2024 Note RCRI= 2 points Class III Risk 10.1 % 30-day risk of , [place], or cardiac arrest From a cardiac perspective pt may proceed with planned surgery, she is a moderate risk for a moderate risk orthopedic surgery. She may hold Aspirin 5-7 days prior and resume post op. Please monitor hemodynamics carefully and prevent any major fluid shifts. Adelaida Rizo [facility] Available 7a-5pm via [employer] Chat Pager [phone] [facility] 12-28-2023 Miscellaneous Notes Rec'd letter from patient stating that she no longer sees [facility], uses a doctor in [place]. documented in this encounter [facility] 12-28-2023 Telephone encounter Note Rec'd letter from patient stating that she no longer sees [facility], uses a doctor in [place]. [facility] 12-06-2023 Miscellaneous Notes Last OV 06/15/22.slm T/C to pt to sched [facility] f/u appt. No answer and mailbox is full. documented in this encounter [facility] 12-06-2023 Telephone encounter Note Last OV 06/15/22.slm [facility] 12-06-2023 Telephone encounter Note T/C to pt to sched [facility] f/u appt. No answer and mailbox is full. [facility] 12-01-2023 Note Currently pt is doin g quite well s/p recent AV node ablation Remains V paced with BI-V AICd [facility] 12-01-2023 Note No anticoagulation currently [facility] 12-01-2023 Note Patient here for fol low up AV node ablation performed on 11/01/[address] Madden. She denies chest pain, SOB, palpitations, and lightheadedness/syncope. Review of Systems Musculoskeletal: Positive for arthritis and back pain. All other systems reviewed and are negative. [facility] 12-01-2023 Note [facility] CARDIOLOGY PROGR [...] was previously seen by [facility] cardiology. She was initially seen by [...] Conjunctiva/sclera: Conjunctivae normal. (more content not included)... [facility] 11-01-2023 Note AV NODE ABLATION PRO CEDURE REPORT DATE OF PROCEDURE: 11/01/2023 PERFORMING PHYSICIAN: Dr. Robert Madden SUPERVISOR FILLING AND PACKING: TOÑA CONSENT: Patient NAME OF THE PROCEDURE: [...] GI bleed. [facility] She was initially seen [...] Continue anticoagulation. Robert Madden MD Cardiac Electrophysiology. [facility] 11-01-2023 Note Patient: Saul mcghee Procedure Information Date/Time: 11/01/23 0830 Procedure: AV node ablation Location: [facility] OIL PUMPER 1 EP / [facility] (Cath) Providers: Robert Madden MD Clinical information reviewed: Tobacco Allergies Meds Med Hx Surg Hx OB Status Fam Hx Physical Exam Airway Mallampati: II TM distance: >3 FB Neck ROM: full Cardiovascular Dental Pulmonary Abdominal Anesthesia Plan ASA 2 CSE Anesthetic plan and risks discussed with patient. Use of blood products discussed with patient who. Additional Equipment Requests [facility] 11-01-2023 Note [facility] Electrophysiology Consult Note Reason for [...] was previously seen by [facility] cardiology. She was initially seen by [...] on file Intimate Partner Violence: Unknown (07/23/2023) [place] Safety [place] Fear of Current or [...] 50 mg tab (more content not included)... [facility] 09-10-2023 Miscellaneous Notes Please sign and route if you agree. Thank you HODAN 06/22/22 Pt needs annual appt schedule please, thank you. Letter mailed. LMOM for the patient to call and schedule their next appointment with [facility]. documented in this encounter [facility] 09-10-2023 Telephone encounter Note Please sign and route if you agree. Thank you HODAN 06/22/22 Pt needs annual appt schedule please, thank you. Letter mailed. [facility] 09-10-2023 Telephone encounter Note LMOM for the patient to call and schedule their next appointment with [facility]. [facility] 08-27-2023 Note ca [facility] 06-11-2023 Miscellaneous Notes Last OV 06/15/22, sent to [facility] front office specialist for yearly visit to be scheduled. CMP 06/22/22. BMP ordered from refill encounter 06/08/23. Letter has been mailed, but will attempt to send letter via [facility] as last login was 05/07/23. documented in this encounter [facility] 06-11-2023 Telephone encounter Note Last OV 06/15/22, sent to [facility] front office specialist for yearly visit to be scheduled. CMP 06/22/22. BMP ordered from refill encounter 06/08/23. Letter has been mailed, but will attempt to send letter via [facility] as last login was 05/07/23. [facility] 07-23-2022 Note PAIN MANAGEMENT CONS ULTATION CONSULTATION [...] months' time or sooner if needed. [facility] 03-26-2022 Note CONSULTATION CONSULTATION DATE: 03/26/2022 This [...] agrees with the plan of care. [facility] 12-24-2021 Note CONSULTATION PROCEDURE DATE: 12/24/2021 PREOPERATIVE [...] the procedure well with no complications. [facility] 12-24-2021 Note CONSULTATION CONSULTATION DATE: 12/24/2021 HISTORY [...] three months' time, unless otherwise indicated. [facility] Evaluation note Diagnosis Essential hypertension- Primary Unspecified essential hypertension [facility] Chronic systolic CHF (congestive heart failure) ([facility] Diagnosis Onset Date Resolution Status Admit Date Atrial fibrillation acute Febru sahil 2024 10:10am Chronic systolic (congestive ) heart failure acute July 27, 025 10:10am CKD (chronic kidney disease) stage 3, GFR 30-59 ml/min acute Februa ry 2024 10:10am Hyperlipidemia acute July 022024 10:10am Hypertensive chronic kidney disease with stage 1 through stage 4 chronic ki acute July 10:10am Iron deficiency acute July 27, 2024 10:10am [facility] Work Phone: InstructionsNot on filedocumented in this encounter [facility] filed[facility]ed [facility] filedocumented in this encounter [facility] filedocumented in this encounter [facility] Summary Purpose Family History No Family History Records FoundNo Family History Records FoundNo Family History Records FoundNo Family History Records Found Advance Directives Advance Directive Response Recorded Date/ Time Advance Directives Yes March 31, 2024 9:48am Chief Complaint and Reason for Visit Chief Complaint Admit Date RENAL CKD 3 July 27, 2024 10:10am Reason for Visit Admit Date Atrial fibrillation July 27, 2024 10:10am Chronic systolic (congestive) heart fail ure July 27, 2024 10:10am CKD (chronic kidney disease) stage 3, GF R 30-59 ml/min July 27, 2024 10:10am Hyperlipidemia July 27, 2024 10:10am Hypertensive chronic kidney disease with stage 1 through stage 4 chronic ki July 27, 2024 10:10am Iron deficiency July 27, 2024 10:10am Additional Source Comments INFORMATION SOURCE (unrecogn ized section and content) DATE CREATED AUTHOR 07/25/2020 [facility] DATE CREATED AUTHOR AUTHOR'S ORGANIZ ATION 10/12/2022 [facility] DATE CREATED AUTHOR AUTHOR'S ORGANIZ ATION 01/17/2024 [facility] EPIC DATE CREATED AUTHOR AUTHOR'S ORGANIZ ATION 07/17/2024 [facility] Reason for Visit (unrecogniz ed section and content) Reason Comments Med Refill Reason Onset Date Comments Med Refill 12/06/2023 Care Teams (unrecognized sec tion and content) Catering And Events Manager Relationship Specialty Start Date End Date Heaven Staley APRN-CNP [address] [facility] [place] [address] PCP - General Family Medicine 10/30/21 Catering And Events Manager Relationship Specialty Start Date End Date Heaven Staley APRN-CNP [address] [facility] [place] [address] PCP - General Family Medicine 10/30/21 Catering And Events Manager Relationship Specialty Start Date End Date Heaven Staley APRN-CNP [address] [facility] [place] [address] PCP - General Family Medicine 10/30/21 Catering And Events Manager Relationship Specialty Start Date End Date Heaven Staley APRN-CNP [address] [facility] [place] [address] PCP - General Family Medicine 10/30/21 Team Status: Active Member Role Status Dates WANDA Rich Primary Care Provider Active Team Status: Inactive Member Role Status Dates Juliana Landeros MD Attending Provider Active Start : July 27, 2024 End: July 27, 2024 WANDA Rich Primary Care Pr kirsten, Referring Provider Active Start: July 27, 2024 End: July 27, 2024 Goals (unrecognized section and content) Goals may be documented in a n alternate section FOR RECORDS PERTAINING TO PATIENTS WHO ARE [...] BE BASED ON THE PRIMARY CLINICAL RECORDS. [facility] [employer], [facility]. provides no warranty or guarantee of the accuracy or completeness of information in this document.
--- NOTE | 2024-08-10 09:28 | P.CN_ITS ---
Consult Note: HPI Data of Consult Patient: known to practice within the last 3 years Requesting Physician: Carmen Ramey NP Primary Care Provider: FIDELINA STALEY Consult Narrative Reason for consult: f/u Narrative: Radha Cornell a pleasant 79 year old female presents for evaluation and management of chronic low back pain. Pain today 6/10 ache increased with all activity and decreased with lying down and heat. Patient has found moderate benefit to current medication regimen. January 2024 underwent L3-S1 fusion and decompression at L3,4,[address] Ramírez with significant improvement ongoing. Patient continues to have moderate to severe low back and bilateral leg pain impacting sleep, social life, ADLS, and ability to stand and walk. RENATO 42%. Pt is optimistic her pain will continue to improve post surgical intervention. denies falls or injury since last visit. continues to utilize cane. cc:: CC: Carmen Ramey NP Review of Systems ROS Status of ROS 10 or more systems reviewed and unremark able except as noted in history and below Musculoskeletal Reports: back pain PFSH PFSH Medical History Rectocele ?N81.6 - Rectocele (ICD-10) Bruising ?T14.8XXA - Other injury of unspecified body region, initial encounter (ICD- 10) Anemia ?D64.9 - Anemia, unspecified (ICD-10) Upper back pain ?M54.9 - Dorsalgia, unspecified (ICD-10) Neck pain ?M54.2 - Cervicalgia (ICD-10) Low back pain ?M54.50 - Low back pain, unspecified (ICD-10) Fibromyalgia ?M79.7 - Fibromyalgia (ICD-10) Heartburn ?R12 - Heartburn (ICD-10) Acid reflux ?K21.9 - Gastro-esophageal reflux disease without esophagitis (ICD-10) Sleep apnea ?G47.30 - Sleep apnea, unspecified (ICD-10) Atrial fibrillation ?I48.91 - Unspecified atrial fibrillation (ICD-10) Surgical History S/P lumbar spine operation ?Z98.890 - Other specified postprocedural states (ICD-10) S/P shoulder surgery ?Z98.890 - Other specified postprocedural states (ICD-10) History of bariatric surgery ?Z98.84 - Bariatric surgery status (ICD-10) H/O heart surgery ?Z98.890 - Other specified postprocedural states (ICD-10) H/O: hysterectomy ?Z90.710 - Acquired absence of both cervix and uterus (ICD-10) Hx of cholecystectomy ?Z90.49 - Acquired absence of other specified parts of digestive tract (ICD- 10) Meds Home Medications and Allergies Home Medications ?Medication ?Instructions ?Recorded ?Confirmed ?Type cholecalciferol (vitamin D3) 125 5,000 unit PO DAILY 11/03/22 12/14/23 History mcg (5,000 unit) capsule furosemide 40 mg tablet (Lasix) 40 mg PO BID 11/03/22 12/14/23 History krill 2 cap PO DAILY 11/03/22 12/14/23 History yuu-tz1-gwb-rep-rv2-qyk-astax 1,500 mg-165 mg-67.5 mg capsule losartan 25 mg tablet 25 mg PO DAILY 11/03/22 12/14/23 History metoprolol succinate 25 mg 12.5 mg PO BID 11/03/22 12/14/23 History tablet,extended release 24 hr multivitamin 1 tab PO DAILY 11/03/22 12/14/23 History pantoprazole 40 mg tablet,delayed 40 mg PO BID 11/03/22 12/14/23 History release (Protonix) pramipexole 1 mg tablet (Mirapex) 1 mg PO DAILY 11/03/22 12/14/23 History trazodone 50 mg tablet 50 mg PO DAILY 11/03/22 12/14/23 History vitamin B complex 1 cap PO DAILY 11/03/22 12/14/23 History naloxone 4 mg/actuation nasal 4 mg intranasal Q3M PRN opioid 02/11/23 12/14/23 Rx spray (Narcan) overdose #2 ea baclofen 10 mg tablet 10 mg PO BID PRN muscle spasm #60 07/28/23 12/14/23 Rx tabs oxycodone-acetaminophen 5 mg-325 1 tab PO TID PRN pain #90 tabs 12/15/23 Rx mg tablet (Percocet) zonisamide 50 mg capsule 50 mg PO DAILY #30 caps 12/23/23 Rx oxycodone-acetaminophen 5 mg-325 1 tab PO TID PRN pain #90 tabs 01/19/24 Rx mg tablet (Percocet) oxycodone-acetaminophen 5 mg-325 1 tab PO TID PRN pain #90 tabs 02/14/24 Rx mg tablet (Percocet) oxycodone-acetaminophen 5 mg-325 1 tab PO TID PRN pain #90 tabs 03/24/24 Rx mg tablet (Percocet) oxycodone-acetaminophen 5 mg-325 1 tab PO TID PRN pain #90 tabs 04/25/24 Rx mg tablet (Percocet) oxycodone-acetaminophen 5 mg-325 See Rx Instructions .Route 05/30/24 Rx mg tablet (Percocet) .COMPLEX PRN pain #75 tabs oxycodone-acetaminophen 5 mg-325 See Rx Instructions .Route 07/04/24 Rx mg tablet (Percocet) .COMPLEX PRN pain #75 tabs oxycodone-acetaminophen 5 mg-325 See Rx Instructions .Route 08/04/24 Rx mg tablet (Percocet) .COMPLEX PRN pain #75 tabs Allergies Allergy/AdvReac Type Severity Reaction Status Date / Time codeine Allergy Mild Hives Verified 12/14/23 10:23 pregabalin (From Lyrica) Allergy Shakiness Verified 12/14/23 10:23 Exam Constitutional Documenting provider has reviewed patient's vital signs: yes Common normals: no apparent distress, oriented x3, healthy appearing, alert and well nourished General appearance: cooperative [facility] Common normals: normocephalic, hearing grossly normal bilaterally and moist oral mucous membranes Head and scalp: normocephalic Eye Common normals: PERRL Pupil: PERRL Neck & C-Spine Common normals: full ROM General: normal visual inspection Chest Common normals: inspection of chest normal Respiratory Common normals: normal respiratory effort, no retractions and no use of accessory muscles Back & Pelvis Lumbar spine/lower back: ROM limited, pain with ROM, straight leg raise positive right and straight leg raise positive left Other: decreased sensation bilateral L4,5,S1 Extremity Common normals: normal to inspection and full ROM Neuro Common normals: oriented x3, CN's II-XII intact bilaterally, moves all extremities, no focal motor deficits, no sensory deficits noted and deep tendon reflexes 2+ bilaterally Sensorium/orientation: alert Gait (neuro): assistive device used cane Motor exam: strength 5/5 throughout and no movement abnormalities noted Psych Common normals: mental status grossly normal, thought process normal, cooperative, affect normal, speech normal and activity/motor behavior normal Speech: normal speech Thought process: normal thought process Results Additional Findings Additional findings: If on a controlled substance or opioids, I have checked an [place]AR[place] report on this patient and there are no aberrancies noted in the prescribing history.??If on a controlled substance or opioid a drug screen was completed and reviewed within the last year, and if there has not been a drug screen completed we ordered one today to monitor higher risk, state monitored pain medication use. As part of providing excellent, safe, comprehensive care, the following was completed at our patient's visit: 1. A medication reconciliation and review to ensure accurate knowledge of current/active medications, including asking our patients to inform us about any uyar-vwz-tmvzxzj medications or herbal remedies/nutritional supple ments/alternative remedies. 2. A review to specifically ensure our patients have had annual screening for screening for depression, screening for tobacco use, and screening for unhealthy alcohol use. For concerning screenings had a discussion with the patient, provided patient education, and recommended follow-up with primary care provider when appropriate. If patient noted with a risk of falling, they received education on strength, gait, and balance training to prevent future risk of falling. Assessment and Plan Assessment and Plan (1) Lumbar radiculopathy: (2) Failed back syndrome: (3) Lumbar spondylosis: (4) Muscle spasm: (5) Chronic prescription opiate use: Assessment and Plan: I feel these medications are improving the patient's quality of life and allow them to tolerate activities of daily living as well as participate in recreational activity.? The patient does not report intolerable side effects. The patient is NOT opioid naive and non-pharmacologic and non-opioid treatment has failed to significantly relieve the patient's pain and improve functionalit y. The patient has a diagnosis that is related to a somatic or visceral pain etiology. ? ?? I reviewed with the patient the potential risks and side effects with the use of? opioid medications including but not limited to respiratory depression,? sedation, and even . I verified the patient has access to naloxone should? these effects occur. I advised the patient to avoid the use of any other? sedation substances including alcohol, THC, and benzodiazepines while? taking opioid medications due to the risk of compounding side effects and? detrimental outcomes. I reviewed the CLASS[employer], pain treatment agreement, urine? drug screen, and opioid start talking forms. The patient was advised to let? their family know they had Naloxone in case they would need to administer? the medication.? ?? A drug screen was completed within the last year, and no aberrancies were noted regarding their use of controlled substances. The patient understands they are subject to the terms and conditions of the pain contract that they have signed. ? ?? I have checked an [place]ARRS report on this patient today and there are no aberrancies noted in the prescribing history.? (6) Status post lumbar spinal fusion: Plan briefly discussed [employer] spinal cord stimulation trial for future consideration as pt continues to have moderate to severe neuropathic pain and low back pain continue percocet 5-325mg BID-TID PRN 75/month next fill, risks vs benefits reviewed continue baclofen 5-10mg BID PRN pain/spasms continue HEP as tolerated and f/u with NS as planned continue f/u with cardiology, pacemaker f/u 3 months, sooner if needed
== END 2024-08-10 09:01 | disposition home or self-care (01) ==
LOC: PM 09:01
PROVIDERS: PCP Nurse Practitioner Family; Visit Provider Nurse Practitioner
DX: M54.16 Radiculopathy, lumbar region (principal); M96.1 Postlaminectomy syndrome, not elsewhere classified; M47.816 Spondylosis without myelopathy or radiculopathy, lumbar region; M62.838 Other muscle spasm; Z79.891 Long term (current) use of opiate analgesic; M43.26 Fusion of spine, lumbar region
CPT/HCPCS: G0463

== ENCOUNTER 2024-08-18 08:52 | Outpatient (OUT) | payer MEDICARE, SELFPAY ==
[2024-08-18 09:38] LABS: Hematocrit 35.1 % (36.0-48.0); Hemoglobin 10.9 g/dL (12.0-16.0); Mean Corpuscular HGB Conc 31.1 g/dL (29.9-35.2); Mean Corpuscular Hemoglobin 27.4 pg (26.7-34.0); Mean Corpuscular Volume 88.2 fL (81.0-99.0); Mean Platelet Volume 10.4 fL (9.5-13.5); Platelet Count 254 10^3/uL (150-450); Red Blood Count 3.98 10^6/uL (4.20-5.40); Red Cell Distribution Width 16.1 % (11.0-15.0); White Blood Count 9.1 10^3/uL (4.0-11.0)
[2024-08-18 09:49] LABS: Creatinine Urine Random 36.44 mg/dL (20.00-300.00); Total Protein Urine Random <6.0 mg/dL (<=11.9)
[2024-08-18 09:58] LABS: Bilirubin Urine NEGATIVE (NEGATIVE); Blood Urine NEGATIVE (NEGATIVE); Clarity Urine CLEAR (CLEAR); Color Urine LT. YELLOW (YELLOW); Glucose Urine UA 250 mg/dL (NEGATIVE); Ketones Urine NEGATIVE (NEGATIVE); Leukocyte Esterase Urine NEGATIVE (NEGATIVE); Nitrite Urine NEGATIVE (NEGATIVE); Protein Urine NEGATIVE (NEG/TRACE); Urobilinogen Urine 0.2 EU/dL (0.2-1.0); pH Urine 5.5 (5.0-9.0)
[2024-08-18 10:12] LABS: Bacteria Urine TRACE #/HPF (NONE SEEN); Crystals Seen? None Seen #/HPF (None Seen); Mucus Urine NONE SEEN (NONE SEEN); RBC Urine 0-2 #/HPF (0-2); Squamous Epithelial Cell Urine FEW #/LPF (NONE/RARE); WBC Urine NONE SEEN #/HPF (NONE SEEN)
[2024-08-18 10:13] LABS: Cast Seen? NONE SEEN #/LPF (NONE SEEN)
[2024-08-18 10:14] LABS: Albumin Level 3.4 g/dL (3.4-5.0); Anion Gap 10.2; BUN Creatinine Ratio 26.5; Carbon Dioxide 26.5 mmol/L (21.0-32.0); Chloride 108 mmol/L (98-107); Estimated GFR (African America 45 (>=60 mL/min/1.73m^2); Estimated GFR (Non-African Ame 38 (>=60 mL/min/1.73m^2); Glucose 96 mg/dL (74-106); Magnesium 2.4 mg/dL (1.8-2.4); Phosphorus 3.7 mg/dL (2.6-4.7); Potassium 4.7 mmol/L (3.5-5.1); Sodium 140 mmol/L (136-145); Uric Acid 6.5 mg/dL (2.6-6.0)
[2024-08-18 10:25] LABS: Percent Iron Saturation 19.7 %
[2024-08-20 11:08] LABS: PTH, Intact 106 pg/mL (15-65)
== END 2024-08-18 08:53 | disposition home or self-care (01) ==
PROVIDERS: PCP Nurse Practitioner Family; Visit Provider Internal Medicine
DX: I50.22 Chronic systolic (congestive) heart failure (principal); E78.5 Hyperlipidemia, unspecified; I48.91 Unspecified atrial fibrillation; I12.9 Hypertensive chronic kidney disease with stage 1 through stage 4 chronic kidney disease, or unspecified chronic kidney disease; N18.30 Chronic kidney disease, stage 3 unspecified; E61.1 Iron deficiency
CPT/HCPCS: 36415; 80069; 81001; 82306; 82570; 82728; 83540; 83550; 83735; 83970; 84156; 84550; 85027

== ENCOUNTER 2024-09-01 10:59 | Outpatient (OUT) | payer MEDICARE, SELFPAY ==
--- NOTE | 2024-09-01 | XR_ITS ---
The [address] [address] Patient Name: SAUL GUTIÉRREZ MRN: [id number] date: 1945 Sex: F Assigned Patient Location: Current Patient Location: [place] Accession/Order Number: [id number] Exam Date: 09/01/2024 12:21 Report Date: 09/01/2024 12:24 At the request of: AVANI BURROWS MD Procedure: XR lumbar spine min 4V LUMBAR SPINE WITH FLEXION AND EXTENSION VIEWS - 4 views: CLINICAL HISTORY: BACK PAIN M54.50 Follow-up after lumbar surgery. COMPARISON: 06/02/2024 Standing AP as well as lateral views in neutral, flexion and extension were obtained. There is osteopenia. 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 There is prior laminectomy and fusion with posterior rods and pedicle screws extending from L3 through S1. An interbody fusion device is again seen at L3-4. The hardware appears intact and unchanged from the prior. There is still approximately 4 mm of anterolisthesis of L4 and L5. There is also minor anterolisthesis of L3 on L4. Alignment does not change significantly with flexion or extension. Multilevel disc space narrowing is again seen. There is endplate spurring and some facet hypertrophy. The SI joints are intact. No paraspinal soft tissue abnormalities are noted. XR/XR lumbar spine min 4V IMPRESSION: OSTEOPENIA, SCOLIOSIS, POSTOPERATIVE AND DEGENERATIVE CHANGES, SIMILAR TO THE PRIOR. Impression dictated by: Adelaida Davis M.D.09/01/2024 12:24 PM Dictation Location: [place] [address] Electronically authenticated by: [id number] Y Date: 09/01/2024 12:24
== END 2024-09-01 11:00 | disposition home or self-care (01) ==
LOC: EC 10:59
PROVIDERS: PCP Nurse Practitioner Family; Visit Provider Orthopaedic Surgery Orthopaedic Surgery of the Spine
DX: M54.50 Low back pain, unspecified (principal); M51.369 Other intervertebral disc degeneration, lumbar region without mention of lumbar back pain or lower extremity pain
CPT/HCPCS: 72110

== ENCOUNTER 2024-09-11 09:51 | Outpatient (OUT) | payer MEDICARE, SELFPAY ==
--- OUTSIDE RECORDS SUMMARY | 2024-09-11 10:12 | XMS_ITS | CCD ---
Author Organization [facility] Care Team Providers Care Senior Marketing Specialist Name Role Phone JOHNSON ., DR JAYLON Ruelas Admitting Unavailable ORNELAS ., DR JAYLON Ruelas Attending Unavailable [facility] Unavailable ORNELAS ., DR JAYLON Ruelas Consulting Unavailable MICHELINE MOLINA Consulting Unavailable JOHNSON ., DR JAYLON Ruelas Admitting Unavailable ORNELAS ., DR JAYLON Ruelas Attending Unavailable [facility] Primary Care Unavailable RODRIGUEZ ., SABRINA Consulting Unavailable ORNELAS ., DR JAYLON Ruelas Admitting Unavailable ORNELAS ., DR JAYLON Ruelas Attending Unavailable [facility] Primary Care Unavailable RODRIGUEZ ., SABRINA Consulting Unavailable [facility] Primary Care Unavailable LAKSHMIPATHY ., NARENDRANATH Admitting Charity vailable LAKSHMIPATHY ., NARENDRANATH Attending Charity vailable LAKSHMIPATHY ., NARENDRANATH Consulting Charity vailable LAKSHMIPATHY ., NARENDRANATH Admitting Charity vailable LAKSHMIPATHY ., NARENDRANATH Attending Charity vailable [facility] Primary Care Unavailable LUÍS, HEAVEN Admitting Unavailable HEAVEN STALEY Attending Unavailable [facility] Primary Care Unavailable DR OSWALDO VALENZUELA Consulting Unavailable HEAVEN STALEY Consulting Unavailable [facility], [facility] Primary Care Unavailable DAREK .KEILY Admitting Unavailable DAREK ., KEILY Attending Unavailable DAREK ., KEILY Consulting Unavailable KELSIE DEL ANGEL Consulting Unavailable OSWALDO GARCÍA Attending Unavailable SANDIE PAGE Attending Unavailable HEAVEN SATLEY Referring Unavailable SANDIE PAGE Attending Unavailable CARIDAD GARNER Attending Unavailable Heaven Steven Primary Care Provider ROBERT MADDEN Referring Unavailable ROBERT MADDEN Admitting Unavailable ROBERT MADDEN Attending Unavailable ROBERT MADDEN Referring Unavailable ROBERT MADDEN Referring Unavailable NAVID, ROBERT Referring Unavailable DIANA, SHAYY Referring Unavailable NAVID, ROBERT Referring Unavailable NAVID, ROBERT Referring Unavailable NAVID, ROBERT Referring Unavailable NAVID, ROBERT Referring Unavailable DARRIUS, TOYA Attending Unavailable DANIEL, DANII Attending Unavailable NAVID, ROBERT Referring Unavailable NAVID, [...] ROBERT Referring Unavailable DIANA, SHAYY Referring Unavailable Allergies Allergy Classification Reported Allergen(s) Allergy Type Date of Onset Reaction(s) Facility (3 sources) Codeine; Translations: [CODEINE] Drug Allergy 06-06-2014 [facility] Repository (5 sources) Codeine Drug Allergy 06-06-2014 [facility] (6 sources) Lisinopril; Translations: [LISINOPRIL] Drug [facility] pregabalin; Translations: [PREGABALIN] Drug Allergy 12-01-2023 [facility] Medications Current Medications Medication Drug Class(es) [...] 30 tablet 1 06/08/2023 Active lactobacillus acidophilus [id number] unt oral capsule (5 sources) take 1 [...] Indications: Chronic systolic CHF (congestive heart failure) ([facility]) Take 1 tablet (25 mg total) by [...] 2024 12:00am take 1 capsule by mo ut once in the morning coenzyme Q10 100 [...] Active Problems Problem Classification Problem Date Documented Date Episodic/Chronic Anxiety disorders (5 sources) Anxiety; Translations: [...] 02-24-2018 10-11-2020 Chronic Congestive heart failure; nonhypertensive (15 sources) Chronic systolic heart failure; Translations: [Chronic systolic (congestive) heart failure] Onset: 08-25-2018 10-11-2020 Chronic Coronary atherosclerosis and other heart disease (2 sources) Atherosclerotic heart disease of [place] coronary artery without angina pectoris; Translations: [Atherosclerotic heart disease of [place] coronary artery without angina pectoris] Onset: 08-18-2024 Chronic Deficiency and other anemia (1 source) Anemia, unspecified; Translations: [ANEMIA UNSPECIFIED] Onset: 09-26-2022 Episodic Diabetes mellitus without complication (1 source) Other abnormal glucose; Translations: [OTHER ABNORMAL GLUCOSE] Onset: 09-26-2022 Episodic Disorders of lipid metabolism (4 sources) Hyperlipidemia; Translations: [Hyperlipidemia, unspecified] Onset: 08-18-2024 07-27-2024 Chronic Essential hypertension (12 sources) Essential (primary) hypertension; Translations: [Essential hypertension] [...] caused by tuberculosis or sexually transmitted disease) (12 sources) Cardiomyopathy; Translations: [Other cardiomyopathies] Onset: 06-06-2014 [...] fibrillation; Translations: [Longstanding persistent atrial fibrillation] Onset: 08-18-2024 Unclassified (2 sources) Other persistent atrial fibrillation; [...] Episodic Other aftercare (1 source) Other senior living (current) drug therapy; Translations: [OTH SNF CURRENT DRUG THERAPY] Onset: 05-19-2022 Episodic Other [...] Value Interpretation Reference Range Facility Office Visiton 08-18-2024 Follow-up visit [id number] Radha Gutiérrez 1945 F Date Provider Department Center 08/18/2024 [id number] FREEDMAN MAGNUS [facility] Family History Problem Relation Age of Onset Heart failure Father Family Status - Relation Status Age at Father Level of Service:45334 ND OFFICE/OUTPATIENT ESTABLISHED LOW MDM 20 MIN [facility] Office Visiton 03-21-2024 Follow-up visit [id number] Radha Gutiérrez 1945 F Date Provider Department Center 03/21/2024 ROBERT GEE MAGNUS [facility] Family History Problem Relation Age of Onset Heart failure Father Family Status - Relation Status Age at Father Level of Service:95916 ND OFFICE/OUTPATIENT ESTABLISHED LOW MDM 20 MIN [facility] 36on 02-11-2024 36 Tried to contact patient and she has no VM set up. Will try again on Wednesday. [facility] Documentationon 02-11-2024 Documentation [id number] Radha Gutiérrez 1945 Provider Department Center 02/11/2024 TOYA VALENCIA Viky Family History Problem Relation Age of Onset Heart failure Father Family Status - Relation Status Age at Father [facility] 36on 02-08-2024 36 Patient had her [...] Dr. Madden until 03/21. Please advise. Thanks. [facility] Telephoneon 02-08-2024 Telephone [id number] Radha Gutiérrez 1945 F Date Provider Department Center 02/08/2024 928-CARIDAD LOVE MAGNUS [facility] Family History Problem Relation Age of Onset Heart failure Father Family Status - Relation Status Age at Father [facility] Office Visiton 12-01-2023 Follow-up visit [id number] Radha Gutiérrez 1945 F Date Provider Department Center 12/01/2023 120-DARRIUS TOYA MAGNUS [facility] Family History Problem Relation Age of Onset Heart failure Father Family Status - Relation Status Age at Father Level of Service:47317 ND POSTOP FOLLOW UP VISIT RELATED TO ORIGINAL PX [facility] HPon [facility]01[facility]2023 [facility] on file Intimate Partner Violence: Unknown (07/23/2023) [place] Safety & Environment Fear of Current or [...] 50 mg tab (more content not included)... [facility] NURSNOTEon 11-01-2023 NURSNOTE RN educated pt on d/ c instructions. RN encouraged pt to voice any questions or concerns. Pt verbalizes no questions or concerns at this time. [facility] Orders Onlyon 10-22-2023 Orders Only [id number] Radha Gutiérrez 1945 F Date Provider Department Center 10/22/2023 DEMOND RAMOS [facility] [place] [facility] Family History Problem Relation Age of Onset Heart failure Father Family Status - Relation Status Age at Father [facility] Orders Onlyon 08-27-2023 Orders Only [id number] Radha Gutiérrez 1945 F Date Provider Department Center 08/27/2023 LEATHA BAHENA [place] Valorie Family History Problem Relation Age of Onset Heart failure Father Family Status - Relation Status Age at Father Normal [facility] INSULINon 09-23-2022 Insulin 7.9 uIU/mL Normal 2.6-24.9 [facility] Comment on above: Performed By: #### I NSULIN ####[facility] [address] [place], [place] [address]Dr. Ravin Dior CBC AUTO DIFFon 09-22-2022 BASO # 0.0 103/ul Normal 0.0-0.1 [facility] Comment on above: Performed By: #### C BC ####[facility] M[address] [place], [place] [address]Dr. Ravin Dior Basophils/100 WBC (Bld) 0.4 % Normal 0.2-2.0 [facility] Comment on above: Performed By: #### C BC ####[facility] [address] [place], [place] [address]Dr. Ravin Dior EO # 0.6 103/ul Normal 0.0-0.7 [facility] Comment on above: Performed By: #### C BC ####[facility] [address] [place], [place] [address]Dr. Ravin Dior Eosinophils/100 WBC (Bld) 6.6 % Normal 0.9-7.[address] [facility] Comment on above: Performed By: #### C BC ####[facility] [address] [place], [place] [address]Dr. Ravin Dior Erythrocyte distribution width (RBC) [Ratio] 16.2 % Critically high 11.0-15.[address] [facility] Comment on above: Performed By: #### C BC ####[facility] F[address] [place], [place] [address]Dr. Ravin Dior Hematocrit (Bld) [Volume fraction] 43.3 % Normal 36.0-48.[address] [facility] Comment on above: Performed By: #### C BC ####[facility] [address] [place] [id number]. Ravin Dior Hemoglobin (Bld) [Mass/Vol] 13.4 g/dL Normal 12.0-16.0 [facility] Comment on above: Performed By: #### C BC ####[facility] [address] [place] [id number]. Ravin Ovi IG # 0.05 10e3/ul Critically high 0.00-0.03 [facility] Comment on above: Performed By: #### C BC ####[facility] [address] [place] [id number]. Novalilliana Dior IG % 0.5 % Normal 0.0-0.5 [facility] Comment on above: Performed By: #### C BC ####[facility] [address] [place] [address]Dr. Ravin Dior LYMPH # 2.1 103/ul Normal 1.2-3.[address] [facility] Comment on above: Performed By: #### C BC ####[facility] [address] [place] [id number]. Novalilliana Dior Lymphocytes/100 WBC (Bld) 23.1 % Normal 20.5-60.0 [facility] Comment on above: Performed By: #### C BC ####[facility] [address] [place] [id number]. Ravin Dior MANUAL DIFF REQ NO Normal [facility] Comment on above: Performed By: #### C BC ####[facility] [address] [place] [id number]. Ravin Ovi MCH (RBC) [Entitic mass] 29.5 pg Normal 26.7-34.[address] [facility] Comment on above: Performed By: #### C BC ####[facility] [address] [place] [id number]. Novalilliana Dior MCHC (RBC) [Mass/Vol] 30.9 g/dL Normal 29.9-35.2 [facility] Comment on above: Performed By: #### C BC ####[facility] [address] [place] [id number]. Ravin Dior MCV (RBC) [Entitic vol] 95.4 fL Normal 81.0-99.[address] [facility] Comment on above: Performed By: #### C BC ####[facility] [address] [place] [id number]. Ravin Dior MONO # 0.5 103/ul Normal 0.3-0.[address] [facility] Comment on above: Performed By: #### C BC ####[facility] [address] [place] [id number]. Ravin Ovi Monocytes/100 WBC (Bld) 5.8 % Normal 1.7-12.[address] [facility] Comment on above: Performed By: #### C BC ####[facility] [address] [place], [place] [id number]. Ravin Dior NEUT # 5.8 103/ul Normal 1.4-6.[address] [facility] Comment on above: Performed By: #### C BC ####[facility] C[address] [place], [place] [id number]. Ravin Ovi Neutrophils/100 WBC (Bld) 63.6 % Normal 43.0-75.[address] [facility] Comment on above: Performed By: #### C BC ####[facility] [address] [place], [place] [id number]. Ravin Ovi Platelet mean volume (Bld) [Entitic vol] 10.7 fL Normal 9.5-13.[address] [facility] Comment on above: Performed By: #### C BC ####[facility] [address] [place], [place] [id number]. Ravin Ovi PLT 223 103/ul Normal 150-[address] [facility] Comment on above: Performed By: #### C BC ####[facility] [address] [place] [id number]. Ravin Dior RBC 4.54 106/ul Normal 4.20-5.[address] [facility] Comment on above: Performed By: #### C BC ####[facility] [address] [place] [id number] Dior WBC 9.2 103/ul Normal 4.0-11.0 [facility] Comment on above: Performed By: #### C BC ####[facility] [address] [place] [phone] Dior FREE THYROXINE INDEX T7on FTI 2.44 Normal 1.30-4.50 [facility] Comment on above: Performed By: #### C MP, T7, TSH, LIPID #### [facility] [address] [place] [address] [address] Ravin Dior T3U 33.0 % Normal 30.0-39.0 [facility] Comment on above: Performed By: #### C MP, T7, TSH, LIPID #### [facility] [address] [address] [address] Ravin Dior T4 [Mass/Vol] 7.40 ug/dL Normal 4.80-13.90 [facility] Comment on above: Performed By: #### C MP, T7, TSH, LIPID #### [facility] [address] [address] [address] Ravin Dior GLYCOHEMOGLOBIN A1Con 2022 ADA RECOMMENDATION SEE BELOW Normal [facility] Comment on above: Result Comment: ADA RECOMMENDED LIMIT 4.0 - 6.0 ADA THERAPEUTIC TARGET < 7.0 ACTION SUGGESTED > 7.0 Performed By: #### A 1C ####[facility] [address] [place] [address]DrViky Dior Glucose [Mass/Vol] 105 mg/dL Normal [facility] Comment on above: Performed By: #### A 1C ####[facility] [address] [place] [address]Dr. Ravin Dior HbA1c (Bld) [Mass fraction] 5.3 % Normal 4.5-6.2 [facility] Comment on above: Performed By: #### A 1C ####[facility] [address] [place] [address]Dr. Ravin Dior IRONon 09-22-2022 Iron [Mass/Vol] 81.0 ug/dL Normal 50.0-170.0 [facility] Comment on above: Performed By: #### I SEAMUS ####[facility] [address] [place] [address]Dr. Ravin Dior LIPID PROFILEon 09-22-2022 CHOL-HDL RATIO NORM SEE BELOW Normal [facility] Comment on above: Result Comment: 3.3 - 4.4 LOW RISK 4.4 - 7.1 AVERAGE RISK 7.1 - 11.0 MODERATE RISK >11.0 HIGH RISK Performed By: #### C MP, T7, TSH, LIPID ####[facility] [address] [place] [address]Dr. Ravin Dior Cholesterol [Mass/Vol] 159 mg/dL Normal <=200 [facility] Comment on above: Performed By: #### C MP, T7, TSH, LIPID ####[facility] [address] [place] [address]Dr. Ravin Dior Cholesterol in HDL [Mass/Vol] 47 mg/dL Normal 40-60 [facility] Comment on above: Performed By: #### C MP, T7, TSH, LIPID ####[facility] [address] [place] [address]Dr. Ravin Dior Cholesterol in LDL [Mass/Vol] 96.4 mg/dL Normal [facility] Comment on above: Performed By: #### C MP, T7, TSH, LIPID ####[facility] [address] [place] [address]Dr. Ravin Dior Cholesterol.total/Cho lesterol in HDL [Mass ratio] 3.4 {ratio} Normal [facility] Comment on above: Performed By: #### C MP, T7, TSH, LIPID ####[facility] [address] [place] [phone]. Ravin Dior HDL NORMAL > or = 60 mg/dl - LO W CARDIOVASCULAR RISK <40 mg/dl - HIGH CARDIOVASCULAR RISK Normal [facility] Comment on above: Performed By: #### C MP, T7, TSH, LIPID ####[facility] [address] [place], [place] [address]Es. Ravin Dior LDL CALC NORMAL SEE BELOW Normal [facility] Comment on above: Result Comment: <100 mg/dl OPTIMAL 100 - 129 mg/dl NEAR OR ABOVE OPTIMAL 130 - 159 mg/dl BORDERLINE HIGH 160 - 189 mg/dl HIGH >190 mg/dl VERY HIGH Performed By: #### C MP, T7, TSH, LIPID ####[facility] [address] [place], [place] [address]Qf. Ravin Ovi Triglyceride [Mass/Vol] 78 mg/dL Normal <=150 [facility] Comment on above: Performed By: #### C MP, T7, TSH, LIPID ####[facility] [address] [place], [place] [address]Un. Ravin Dior VLDL CALC 15.6 mg/dL Normal [facility] Comment on above: Performed By: #### C MP, T7, TSH, LIPID ####[facility] [address] [place], [place] [address]Kc. Ravin Dior MG MAMM SCREEN 3D NIKOS CADon 09-22-2022 MG MAMM SCREEN 3D NIKOS CAD Patient: RADHA GUTIÉRREZ Exam Date: 09/22/2022 : 1945 Gender:F Ordering : [facility]Y [facility] Admission #: [id number] Family : Order #: [id number] CLICK HERE TO VIEW EXAM RADIOLOGY REPORT [...] Treatments None Family Cancers None LOCATION: [facility] BREAST COMPOSITION: Almost entirely fatty. [...] Valenzuela M.D. on 09/22/2022 at 17:02 Normal [facility] PROF 14(COMP METB)on 023 Albumin [Mass/Vol] 3.3 g/dL Critically low 3.4-5.0 [facility] Comment on above: Performed By: #### C MP, T7, TSH, LIPID #### [facility] [address] [address] [address] Ravin Dior Albumin/Globulin [Mass ratio] 0.7 {ratio} Normal [facility] Comment on above: Performed By: #### C MP, T7, TSH, LIPID #### [facility] [address] [address] [address] Ravin Dior ALP [Catalytic activity/Vol] 207 U/L Critically high 46-116 [facility] Comment on above: Performed By: #### C MP, T7, TSH, LIPID #### [facility] [address] [address] [address] Ravin Dior ALT [Catalytic activity/Vol] 47 U/L Normal 14-59 [facility] Comment on above: Performed By: #### C MP, T7, TSH, LIPID #### [facility] [address] [place] [address] [address] Ravin Dior Anion gap [Moles/Vol] 11.5 mmol/L Normal [facility] Comment on above: Performed By: #### C MP, T7, TSH, LIPID #### [facility] [address] [place] [address] [address] Ravin Dior AST [Catalytic activity/Vol] 35 U/L Normal 15-37 [facility] Comment on above: Performed By: #### C MP, T7, TSH, LIPID #### [facility] [address] [address] [address] Ravin Dior Bilirubin [Mass/Vol] 0.6 mg/dL Normal 0.2-1.0 [facility] Comment on above: Performed By: #### C MP, T7, TSH, LIPID #### [facility] [address] [place] [address] Dr. Ravin Dior Calcium [Mass/Vol] 9.2 mg/dL Normal 8.5-10.1 [facility] Comment on above: Performed By: #### C MP, T7, TSH, LIPID #### [facility] [address] [place] [address] Dr. Ravin Dior Chloride [Moles/Vol] 109 mmol/L Critically high 98-[address] [facility] Comment on above: Performed By: #### C MP, T7, TSH, LIPID #### [facility] [address] [place] [address] Dr. Ravin Dior CO2 [Moles/Vol] 27.7 mmol/L Normal 21.0-32.0 [facility] Comment on above: Performed By: #### C MP, T7, TSH, LIPID #### [facility] [address] [place] [address] Dr. Ravin Dior Creatinine [Mass/Vol] 0.94 mg/dL Normal 0.55-1.02 [facility] Comment on above: Performed By: #### C MP, T7, TSH, LIPID #### [facility] [address] [place] [address] Dr. Ravin Dior EGFR-AF TOGOLESE >60 Normal >=60 [facility] Comment on above: Performed By: #### C MP, T7, TSH, LIPID #### [facility] [address] [place] [address] Dr. Ravin Dior EGFR-NON AF TOGOLESE 58 mL/min/1.73m2 Critically low >=[address] [facility] Comment on above: Performed By: #### C MP, T7, TSH, LIPID #### [facility] [address] [place] [address] Dr. Ravin Dior Globulin (S) [Mass/Vol] 4.7 g/dL Normal [facility] Comment on above: Performed By: #### C MP, T7, TSH, LIPID #### [facility] [address] [address] [address] Ravin Dior Glucose [Mass/Vol] 95 mg/dL Normal 74-106 [facility] Comment on above: Performed By: #### C MP, T7, TSH, LIPID #### [facility] [address] [place] [address] [address] Ravin Dior Potassium [Moles/Vol] 4.2 mmol/L Normal 3.5-5.1 [facility] Comment on above: Performed By: #### C MP, T7, TSH, LIPID #### [facility] [address] [place] [address] [address] Ravin Dior Protein [Mass/Vol] 8.0 g/dL Normal 6.4-8.2 [facility] Comment on above: Performed By: #### C MP, T7, TSH, LIPID #### [facility] [address] [place] [address] Dr. Ravin Dior Sodium [Moles/Vol] 144 mmol/L Normal 136-145 [facility] Comment on above: Performed By: #### C MP, T7, TSH, LIPID #### [facility] [address] [address] [address] Ravin Dior Urea nitrogen [Mass/Vol] 21.0 mg/dL Critically high 7.0-18.0 [facility] Comment on above: Performed By: #### C MP, T7, TSH, LIPID #### [facility] [address] [place] [address] [address] Ravin Dior Urea nitrogen/Creatinine [Mass ratio] 22.3 mg/mg Normal [facility] Comment on above: Performed By: #### C MP, T7, TSH, LIPID #### [facility] [address] [address] [address] Ravin Dior TSHon 09-22-2022 TSH 2.085 uIU/mL Normal 0.358-3.740 [facility] Comment on above: Performed By: #### C MP, T7, TSH, LIPID #### [facility] [address] [place] [address] ABD/PELVIS WO CONon [...] was used, including Automated Exposure Control. FINDINGS: Operater: No pertinent findings, which are not already [...] the largest most superior hernia. Normal [facility] CBC AUTO DIFFon 05-17-2022 BASO # 0.0 103/ul Normal 0.0-0.[address] [facility] Comment on above: Performed By: #### C BC ####[facility] [address] [place] [address]Dr. Ravin Dior Basophils/100 WBC (Bld) 0.2 % Normal 0.2-2.[address] [facility] Comment on above: Performed By: #### C BC ####[facility] [address] [place], [place] [address]Dr. Ravin Dior EO # 0.1 103/ul Normal 0.0-0.[address] [facility] Comment on above: Performed By: #### C BC ####[facility] [address] [place], [place] [address]Dr. Ravin Dior Eosinophils/100 WBC (Bld) 1.4 % Normal 0.9-7.[address] [facility] Comment on above: Performed By: #### C BC ####[facility] [address] [place], [place] [address]Dr. Ravin Dior Erythrocyte distribution width (RBC) [Ratio] 13.7 % Normal 11.0-15.[address] [facility] Comment on above: Performed By: #### C BC ####[facility] [address] [place], [place] [address]Dr. Ravin Dior Hematocrit (Bld) [Volume fraction] 44.4 % Normal 36.0-48.[address] [facility] Comment on above: Performed By: #### C BC ####[facility] [address] [place], [place] [address]Dr. Ravin Dior Hemoglobin (Bld) [Mass/Vol] 14.7 g/dL Normal 12.0-16.[address] [facility] Comment on above: Performed By: #### C BC ####[facility] [address] [place] [id number]. Ravin Dior IG # 0.05 10e3/ul Critically high 0.00-0.03 [facility] Comment on above: Performed By: #### C BC ####[facility] [address] [place] [address]Dr. Ravin Ovi IG % 0.5 % Normal 0.0-0.[address] [facility] Comment on above: Performed By: #### C BC ####[facility] [address] [place] [address]Dr. Ravin Ovi LYMPH # 1.7 103/ul Normal 1.2-3.[address] [facility] Comment on above: Performed By: #### C BC ####[facility] [address] [place] [address]Dr. Novalilliana Dior Lymphocytes/100 WBC (Bld) 17.1 % Critically low 20.5-60.[address] [facility] Comment on above: Performed By: #### C BC ####[facility] [address] [place] [address]Dr. Novalilliana Dior MANUAL DIFF REQ NO Normal [facility] Comment on above: Performed By: #### C BC ####[facility] [address] [place] [address]Dr. Ravin Dior MCH (RBC) [Entitic mass] 30.7 pg Normal 26.7-34.[address] [facility] Comment on above: Performed By: #### C BC ####[facility] [address] [place] [address]Dr. Ravin Dior MCHC (RBC) [Mass/Vol] 33.1 g/dL Normal 29.9-35.[address] [facility] Comment on above: Performed By: #### C BC ####[facility] [address] [place] [address]Dr. Ravin Dior MCV (RBC) [Entitic vol] 92.7 fL Normal 81.0-99.[address] [facility] Comment on above: Performed By: #### C BC ####[facility] [address] [place] [id number]. Ravin Dior MONO # 0.6 103/ul Normal 0.3-0.[address] [facility] Comment on above: Performed By: #### C BC ####[facility] [address] [place] [address]Dr. Ravin Dior Monocytes/100 WBC (Bld) 5.7 % Normal 1.7-12.[address] [facility] Comment on above: Performed By: #### C BC ####[facility] [address] [place], [place] [address]Dr. Ravin Dior NEUT # 7.7 103/ul Critically high 1.4-6.5 [facility] Comment on above: Performed By: #### C BC ####[facility] [address] [place], [place] [address]Dr. Ravin Dior Neutrophils/100 WBC (Bld) 75.1 % Critically high 43.0-75.[address] [facility] Comment on above: Performed By: #### C BC ####[facility] [address] [place], [place] [address]Dr. Ravin Dior Platelet mean volume (Bld) [Entitic vol] 10.4 fL Normal 9.5-13.[address] [facility] Comment on above: Performed By: #### C BC ####[facility] [address] [place], [place] [address]Dr. Ravin Dior PLT 294 103/ul Normal 150-[address] [facility] Comment on above: Performed By: #### C BC ####[facility] [address] [place], [place] [address]Dr. Ravin Dior RBC 4.79 106/ul Normal 4.20-5.[address] [facility] Comment on above: Performed By: #### C BC ####[facility] [address] [place], [place] [address]Dr. Ravin Dior WBC 10.2 103/ul Normal 4.0-11.[address] [facility] Comment on above: Performed By: #### C BC ####[facility] [address] [place], [place] [address]Dr. Ravin Dior ER URINE PROFILEon 2 Bilirubin Ql (U) Negative Normal NEGATIVE [facility] Comment on above: Performed By: #### Tammy SOUTH UMICRO #### [facility] [address] [place] [address] Dr. Ravin Dior Clarity (U) CLEAR Normal CLEAR [facility] Comment on above: Performed By: #### Tammy SOUTH UMICRO #### [facility] [address] [place] [address] Dr. Ravin Dior Color (U) LT. YELLOW Normal YELLOW [facility] Comment on above: Performed By: #### Tammy SOUTH UMICRO #### [facility] [address] [place] [address] Dr. Ravin PARKER A micrscopic examination will be performed if indicated. Normal [facility] Comment on above: Performed By: #### Tammy SOUTH UMICRO #### [facility] [address] [place] [address] Dr. Ravin Dior Glucose Ql (U) Negative Normal NEGATIVE [facility] Comment on above: Performed By: #### Tammy SOUTH UMICRO #### [facility] [address] [place] [address] Dr. Ravin Dior Hemoglobin Ql (U) Negative Normal NEGATIVE [facility] Comment on above: Performed By: #### Tammy SOUTH UMICRO #### [facility] [address] [place] [address] Dr. Ravin Dior Ketones Ql (U) TRACE Abnormal NEGATIVE [facility] Comment on above: Performed By: #### Tammy SOUTH UMICRO #### [facility] [address] [place] [address] Dr. Ravin Dior LEUKOCYTES SMALL Abnormal NEGATIVE [facility] Comment on above: Performed By: #### Tammy SOUTH UMICRO #### [facility] [address] [place] [address] Dr. Ravin Dior Nitrite Ql (U) Negative Normal NEGATIVE [facility] Comment on above: Performed By: #### Tammy RUR UMICRO #### [facility] [address] [address] [address] Ravin Dior pH (U) 6.0 [pH] Normal 5-9 [facility] Comment on above: Performed By: #### DENY KAUFFMANRO #### [facility] [address] [address] [address] Ravin Dior SPEC GRAVITY 1.010 Normal 1.005-<=1.025 [facility] Comment on above: Performed By: #### DENY KAUFFMANRO #### [facility] [address] [place] [address] [address] Ravin Dior UA PROTEIN Negative Normal NEGATIVE/ TRACE [facility] Comment on above: Performed By: #### DENY KAUFFMANRO #### [facility] [address] [place] [address] [address] Ravin Dior UR MICRO IND INDICATED Normal [facility] Comment on above: Performed By: #### DENY KAUFFMANRO #### [facility] [address] [address] [address] Ravin Dior Urobilinogen Qn (U) 0.2 {Chandler'U}/dL Normal 0.2 - 1. 0 [facility] Comment on above: Performed By: #### DENY KAUFFMANRO #### [facility] [address] [address] [address] Ravin Dior LACTATE/LACTIC ACIDon 2021 Lactate [Moles/Vol] 1.3 mmol/L Normal 0.4-1.9 [facility] Comment on above: Performed By: #### L ACT ####[facility] [address] [place] [address]Dr. Ravin Dior LIPASEon 05-17-2022 Lipase [Catalytic activity/Vol] 63.0 U/L Critically low 73.0-393.0 [facility] Comment on above: Performed By: #### C MP, LIPA #### [facility] [address] [address] [address] Ravin Dior PROF 14(COMP METB)on 12-18-2 022 Albumin [Mass/Vol] 3.4 g/dL Normal 3.4-5.0 [facility] Comment on above: Performed By: #### C MP, LIPA #### [facility] [address] [address] [address] Ravin Dior Albumin/Globulin [Mass ratio] 0.8 {ratio} Normal [facility] Comment on above: Performed By: #### C MP, LIPA #### [facility] [address] [address] [address] Ravin Dior ALP [Catalytic activity/Vol] 143 U/L Critically high 46-116 [facility] Comment on above: Performed By: #### C ROGELIO, LIPA #### [facility] [address] [place] [address] Dr. Ravin Dior ALT [Catalytic activity/Vol] 29 U/L Normal 14-59 [facility] Comment on above: Performed By: #### C MP, LIPA #### [facility] [address] [place] [address] [address] Ravin Dior Anion gap [Moles/Vol] 7.6 mmol/L Normal [facility] Comment on above: Performed By: #### C ROGELIO, LIPA #### [facility] [address] [place] [address] [address] Ravin Dior AST [Catalytic activity/Vol] 39 U/L Critically high 15-37 [facility] Comment on above: Performed By: #### C MP, LIPA #### [facility] [address] [address] [address] Ravin Dior Bilirubin [Mass/Vol] 0.7 mg/dL Normal 0.2-1.0 [facility] Comment on above: Performed By: #### C MP, LIPA #### [facility] [address] [address] [address] Ravin Dior Calcium [Mass/Vol] 9.1 mg/dL Normal 8.5-10.1 [facility] Comment on above: Performed By: #### C MP, LIPA #### [facility] [address] [place] [address] Dr. Ravin Dior Chloride [Moles/Vol] 102 mmol/L Normal 98-107 [facility] Comment on above: Performed By: #### C MP, LIPA #### [facility] [address] [place] [address] Dr. Ravin Dior CO2 [Moles/Vol] 31.1 mmol/L Normal 21.0-32.0 [facility] Comment on above: Performed By: #### C MP, LIPA #### [facility] [address] [place] [address] Dr. Ravin Dior Creatinine [Mass/Vol] 0.88 mg/dL Normal 0.55-1.02 [facility] Comment on above: Performed By: #### C MP, LIPA #### [facility] [address] [place] [address] Dr. Ravin Dior EGFR-AF TOGOLESE >60 Normal >=60 [facility] Comment on above: Performed By: #### C MP, LIPA #### [facility] [address] [place] [address] Dr. Ravin Dior EGFR-NON AF TOGOLESE >60 Normal >=60 [facility] Comment on above: Performed By: #### C MP, LIPA #### [facility] [address] [place] [address] Dr. Ravin Dior Globulin (S) [Mass/Vol] 4.5 g/dL Normal [facility] Comment on above: Performed By: #### C MP, LIPA #### [facility] [address] [place] [address] Dr. Ravin Dior Glucose [Mass/Vol] 100 mg/dL Normal 74-106 [facility] Comment on above: Performed By: #### C MP, LIPA #### [facility] [address] [place] [address] Dr. Ravin Dior Potassium [Moles/Vol] 3.7 mmol/L Normal 3.5-5.1 [facility] Comment on above: Performed By: #### C MP, LIPA #### [facility] [address] [place] [address] Dr. Ravin Dior Protein [Mass/Vol] 7.9 g/dL Normal 6.4-8.2 [facility] Comment on above: Performed By: #### C ROGELIO, LIPA #### [facility] [address] [place] [address] Dr. Ravin Dior Sodium [Moles/Vol] 137 mmol/L Normal 136-145 [facility] Comment on above: Performed By: #### C ROGELIO, LIPA #### [facility] [address] [place] [address] Dr. Ravin Dior Urea nitrogen [Mass/Vol] 12.0 mg/dL Normal 7.0-18.0 [facility] Comment on above: Performed By: #### C ROGELIO, LIPA #### [facility] [address] [place] [address] Dr. Ravin Dior Urea nitrogen/Creatinine [Mass ratio] 13.6 mg/mg Normal [facility] Comment on above: Performed By: #### C ROGELIO, LIPA #### [facility] [address] [place] [address] Dr. Ravin Dior URINE MICROSCOPIC ONLYon BACTERIA NONE SEEN Normal NONE SEEN [facility] Comment on above: Performed By: #### JAZ KAUFFMANICRO #### [facility] [address] [place] [address] Dr. Ravin Dior Bacteria identified Cx Nom (U) NOT INDICATED Normal [facility] Comment on above: Performed By: #### Tammy SOUTH UMICRO #### [facility] [address] [place] [address] Dr. Ravin Dior CAST NONE SEEN Normal NONE SEEN [facility] Comment on above: Performed By: #### Tammy SOUTH UMICRO #### [facility] [address] [place] [address] Dr. Ravin Dior Crystals LM Nom (Urine sed) NONE SEEN Normal NONE SEEN [facility] Comment on above: Performed By: #### Tammy SOUTH UMICRO #### [facility] [address] [place] [address] Dr. Ravin Dior Epithelial cells LM Ql (Urine sed) FEW Abnormal NONE SEEN /RARE [facility] Comment on above: Performed By: #### E RUR, UMICRO #### [facility] [address] [place] [address] [address] Ravin Dior MUCOUS NONE SEEN Normal NONE SEEN [facility] Comment on above: Performed By: #### E RUR, UMICRO #### [facility] [address] [place], [place] [address] Dr. Ravin Dior RBC NONE SEEN Abnormal 0-[address] [facility] Comment on above: Performed By: #### E RUR, UMICRO #### [facility] [address] [place], [place] [address] Dr. Ravin Dior WBC 0-2 Abnormal NONE SEEN [facility] Comment on above: Performed By: #### E RUR, UMICRO #### [facility] [address] [place], [place] [address] Dr. Ravin Dior Ambulatory Clinical Summaryo n 07-24-2020 Ambulatory Clinical Summary {[id number] Normal [facility] [place] [facility] Gastroenterology Office/Clin ic Noteon 07-24-2020 [...] course, # 28 cap(s), Refills(s) 0, Pharmacy: [facility]/pharmacy #[id number], 165, cm, 07/24/20 12:03:00 EST, Height/Length Dosing, 95.9, kg, 07/24/20 12:03:00 EST, Weight Dosing metronidazole, 250 mg = 1 tab(s), Oral, TID, X 7 day(s), # 21 tab(s), Refills(s) 0, Pharmacy: [facility]/pharmacy #[id number], 165, cm, 07/24/20 12:03:00 EST, [...] # 160 cap(s), Refills(s) 1, Pharmacy: [facility]/pharmacy #[id number], 165, cm, 07/24/20 12:03:00 EST, Height/Length Dosing, 95.9, kg, 07/24/20 12:03:... Orders: pantoprazole, 40 mg = 2 tab(s), Oral, Daily, X 90 day(s), # 180 tab(s), Refills(s) 3, Pharmacy: [facility]/pharmacy #[id number], 165, cm, 07/24/20 12:03:00 EST, Height/Length Dosing, 95.9, kg, 07/24/20 12:03:00 EST, Weight Dosing Follow-up With When Contact Information Isabelle Ramirez MD In 12 months [address], [place] [address]- Additional Instructions: Problem List/Past Medical [...] 12/16/2018 Exercise - Occasional exercise, 12/16/2018 Other Fjoluwwb-8-8 cups blair;y, 12/16/2018 Substance Abuse - Denies Substance Abuse, 12/16/2018 Tobacco Never (less than 100 in lifetime) Tobacco Use:., 07/24/2020 Never (less than 100 in lifetime) Tobacco Use:. Never Smokeless Tobacco Use:., 02/01/2019 [facility] Comment on above: Result Comment: Elec tronically Signed By: Taylor Mccauley MD, Isabelle\.bernie\Date and Time Signed: 07/24/20 13:13 EST Auth for Release of Medical Recordson 02-09-2020 Auth for Release of Medical Records [id number]:127 [facility] Patient Letter FTon 2019 Patient Letter [facility] 24, [place] RADHA GUTIÉRREZ [address] [place] [address] RADHA GUTIÉRREZ 1945 Dear Radha, This is a reminder that you are due for an appointment with Dr. Garland or Dr. Mccauley. Please call [facility] at [phone] to schedule an appointment at your earliest convenience. Thank you, [facility] Vital Signs Date Time Vital Sign Value Performing Clinician Chuckie osborne 07-27-2024 10:30-0500 Diastolic blood pressure 68 mm[Hg] [facility] 07-27-2024 10:30-0500 Systolic blood pressure 96 mm[Hg] [facility] 07-27-2024 10:13-0500 Body height 165.1 cm [facility] 07-27-2024 10:13-0500 Body mass index (BMI) [Ratio] 31.3 kg/m2 [facility] 07-27-2024 10:13-0500 Body weight 85.33 kg [facility] 07-27-2024 10:13-0500 Heart rate 85 /min [facility] 07-27-2024 10:13-0500 Respiratory rate 16 /min [facility] 07-27-2024 10:13-0500 SaO2% (BldA) [Mass fraction] 98 % [facility] Encounters Encounter Date Encounter Type Care Provider Facility Start: 08-18-2024 End: 08-18-2024 ambulatory DANII SANCHEZ [facility] Start: 08-15-2024 ambulatory [facility] Start: 08-14-2024 End: 08-14-2024 ambulatory [facility] Start: 08-09-2024 ambulatory [facility] Start: 07-27-2024 End: 07-27-2024 ambulatory [facility] Work Phone: Start: 07-27-2024 End: 07-27-2024 Patient encounter procedure [facility] Kevin Work Phone: Start: 07-11-2024 ambulatory [facility] Start: 06-15-2024 ambulatory [facility] Start: 05-22-2024 ambulatory [facility] Start: 05-18-2024 ambulatory [facility] Start: 05-16-2024 ambulatory [facility] Start: 05-15-2024 ambulatory [facility] Start: 05-04-2024 ambulatory [facility] Start: 04-20-2024 ambulatory [facility] Start: 03-27-2024 ambulatory [facility] Start: 03-21-2024 End: 03-21-2024 ambulatory [facility] Start: 03-17-2024 ambulatory [facility] Start: 02-08-2024 End: 02-08-2024 ambulatory [facility] Start: 01-18-2024 ambulatory [facility] Start: 01-17-2024 End: 01-17-2024 ambulatory CARIDAD PASCUAL Not Available Start: 01-11-2024 End: 01-11-2024 ambulatory SANDIE PAGE Not Available Start: 01-05-2024 ambulatory [facility] Start: 12-28-2023 End: 12-28-2023 Telephone encounter Vera Spears [facility] Start: 12-20-2023 End: 12-20-2023 ambulatory SANDIE PAGE Not Available Start: 12-16-2023 ambulatory [facility] Start: 12-06-2023 End: 12-06-2023 Refill Sonia Tenorio RN [facility] Comment on above: Med Refill Start: 12-01-2023 End: 12-01-2023 ambulatory TOYA RIZO [facility] Start: 11-25-2023 ambulatory SHAYY ORTIZ [facility] Start: 11-24-2023 ambulatory [facility] Start: 11-24-2023 Encounter for preprocedural cardiovascular examination [facility] Start: 11-23-2023 ambulatory [facility] Start: 11-11-2023 End: 11-11-2023 ambulatory OSWALDO GARCÍA Not Available Start: 11-01-2023 ambulatory [facility] Start: 11-01-2023 End: 11-01-2023 ambulatory [facility] Start: 09-10-2023 End: 09-10-2023 Refill Mischenisa Erwin [employer] Work Phone: [facility] Comment on above: Med Refill Start: 06-11-2023 Refill Mike means MD Work Phone: [facility] Comment on above: Med Refill Start: 06-05-2023 Refill Mischell Le horne [employer] Work Phone: [facility] Comment on above: Med Refill Start: 09-22-2022 End: 09-23-2022 ambulatory HEAVEN Hagen:[facility] Start: 07-23-2022 End: 07-24-2022 ambulatory HEAVEN STALEY Facility:[facility] Start: 05-17-2022 End: 05-17-2022 ambulatory HEAVEN STALEY Facility:[facility] Start: 03-26-2022 End: 03-27-[address] JAYLON ORNELAS . Facility:[facility] Start: 12-24-2021 End: 12-25-[address] JAYLON ORNELAS . Facility:[facility] Start: 11-04-2021 End: 11-04-[address] JAYLON ORNELAS . Facility:[facility] Plan of Treatment Date Care Activity Detail Author Start: 01-30-2024 Influenza vaccination Influenza Vacc ine [facility] Start: 08-25-2023 Adult BMI Screening Adult BMI Screen ing [facility] Start: 08-25-2023 Tobacco Screening Tobacco Screening [facility] Start: 01-29-2023 COVID-19 Vaccine ( season) COVID-19 Vaccine () [facility] Start: 01-29-2023 Influenza vaccination Influenza Vacc ine [facility] Start: 11-03-2022 ambulatory Ambulatory Facility:H 1 Start: 2010 Fall Risk Screening Fall Risk Screen ing [facility] Start: 1995 Administration of varicella zoster vaccine Zoster (Shingles) Vaccine (1 of 2) [facility] Start: 1964 DTaP,Tdap and Td Vac cines (1 - Tdap) DTaP,Tdap and Td Vaccines (1 - Tdap) [facility] Start: 1963 Adult BMI Follow Up Plan Adult BMI Follow Up Plan [facility] Start: 1957 Depression Screening Depression Scre ening [facility] Start: 1945 Medicare Annual Well ness Visit Medicare Annual Wellness Visit [facility] [employer] [facility] End: 06-08-2024 Basic metabolic 2000 panel - Serum or Plasma Basic Metabolic Panel Lab Routine Essential hypertension 1 Occurrences starting 06/08/2023 until 06/08/2024 [facility]: Comment on above: 1 Occurrences starti ng 06/08/2023 until 06/08/2024 Renal function 2000 panel - Serum or Plasma [facility] US Kidney - bilateral [facility] Immunizations Immunization Date Immunization Notes Care Provider Tutu rehman 05-08-2021 influenza virus vaccine, unspecified formulation Mac Erwin [employer] ATT[employer] Work Phone: [employer] Payers Date Payer Category Payer Medicare [employer] MEDICARE [place] [id number] 2013-Present [phone] [address] [address] [place] [address] [id number] 1959 Medicare [id number] 1945 Unknown [id number] 1945 Unknown [id number] 1945 Unknown [id number] 1945 Unknown [id number] 1945 Unknown [id number] 1945 Unknown [id number] [id number] 1945 Unknown [id number] [id number] 1945 Unknown [id number] [id number] 1945 Unknown [id number] [id number] 1945 Unknown [id number] 1945 Unknown [id number] Medicare Medicare [id number] Social History Date Type Detail Facility Start: 05-26-2022 End: 07-27-2024 Tobacco smoking status NHIS Never smoked tobacco [facility] Start: 05-26-2022 Tobacco use and exposure Smoke less tobacco non-user [facility] Start: 08-24-2022 Alcohol intake 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) [facility] Start: 07-04-2020 End: 08-24-2022 History of Social function [facility] Start: 07-04-2020 End: 08-24-2022 Tobacco use panel [facility] Housing Instability Unknown [facility] [place] Start: 1945 Sex Assigned At Not on file P [facility] Start: 07-27-2024 Sex Female (finding) [facility] Start: 1945 Sex Assigned At Female F [facility] Medical Equipment Procedure Code Equipment Code Equipment Origin al Text Equipment Identifier Dates Mesh [id number] 3d Rect Plstr Clgn Symbotex 2 Sd Comp Mfl Babsr Rpl [id number] - Sna - [id number] Start: 06-30-2022 Dev Clsr 30fr Watchman 30mm - [id number] Start: 10-28-2018 Clinical Notes 12-24-2021 to 08-18-2024 Telephone Encounter - Vera Spears - 12/28/2023 9:01 AM EDTTelephone Encounter - Vera Spears - 12/28/2023 9:01 AM EDTTelephone Encounter - Sonia Tenorio RN - 12/06/2023 10:37 AM EDT Note Date & Type Note Facility 08-18-2024 Note SUBJECTIVE Reason for Visit: Radha Gutiérrez is a 79 y.o. year old female patient being seen for follow-up visit. HPI: Radha Gutiérrez is a 79 y.o. year old female with past medical history of persistent A-fib, CHF, hypertension, Watchman device successfully placed by Dr. Hines 2019, implantation of Biventricular ICD ([employer]) 07/05/2023, status post AV node ablation 11/01/[address] Madden. 08/18/2024 office visit: The patient was seen and evaluated in the office today. Overall, she reports feeling well. Abnormal kidney function was incidentally noted on presurgical labs for a planned back surgery, including a potassium of 5.8 and creatinine of 1.62. She has since established care with a cripple cutter, whom she saw for the first time three weeks ago, and had follow-up labs drawn prior to this visit. She denies chest pain, shortness of breath, palpitations, lightheadedness, or dizziness 03/21/2024 office visit (Dr. Madden): Patient here for 3 mo follow up persistent afib, CHF, and hypertension. She is now 4 mo s/p AV node ablation. She is 3 weeks s/p back surgery. She's been off of aspirin since surgery, and is supposed to resume in another 3 weeks. Has felt less fatigue since device changes. Denies chest pain, SOB, and palpitations. 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) CHF (congestive heart failure) (CMS/HCC) Left bundle branch block (LBBB) Obstructive sleep apnea syndrome in adult Persistent atrial fibrillation (CMS/HCC) Presence of Watchman left atrial appendage closure device RLS (restless legs syndrome) Sinoatrial node dysfunction (CMS/HCC) Abnormal cardiovascular stress test Dilated cardiomyopathy (CMS/HCC) Presence of biventricular AICD Paroxysmal atrial fibrillation (CMS/HCC) Paresthesia Sciatica Hx of atrioventricular node ablation DDD (degenerative disc disease), lumbar Pre-operative cardiovascular examination Abnormal findings on diagnostic imaging of heart and coronary circulation Acquired spondylolisthesis Allergic rhinitis Arthritis Arthrodesis status Cataract of both eyes Chronic back pain Encounter for other orthopedic aftercare Folliculitis Gastroesophageal reflux disease Heartburn Hemorrhoids History of gastric ulcer Hypertension Insomnia Lumbar radiculopathy Osteoporosis Overweight Presence of other cardiac implants and grafts Sleep apnea Spinal stenosis of lumbar region Stage 3 chronic kidney disease (CMS/HCC) Ventral hernia family history includes Heart failure in her father. Social History Tobacco Use Smoking status: Never Smokeless tobacco: Never Substance Use Topics Alcohol use: Never OBJECTIVE Visit Vitals BP 116/70 (BP Location: Right arm, Patient Position: Sitting) Pulse 70 Ht 1.651 m (5' 5 ) Wt 86.2 kg (190 lb) SpO2 96% BMI 31.62 kg/m??? OB Status Postmenopausal Smoking Status Never BSA 1.99 m??? Physical Exam Constitutional: General Appearance: well-developed, appears stated age. Level of Distress: no acute distress. Neck: Jugular Veins: normal jugular venous pressure. Lungs: Auscultation: no rales or rhonchi and normal breath sounds. Cardiovascular: Rate And Rhythm: regular Heart Sounds: normal S1 and s2; Systolic Murmur: not heard. Diastolic Murmur: not heard. Extremities: no edema Peripheral Pulses: Pulses: full and equal in all extremities except if noted. Abdomen: Inspection and Palpation: non distended or tender and soft. Musculoskeletal: Inspection: no joint tenderness or swelling. Neurologic: Gait: normal gait. Psychiatric: Mental Status: alert and normal affect. Skin: Inspection and Palpation: warm and dry. Allergies: Allergies Allergen Reactions Codeine Other reaction(s): Intolerance-unknown Lisinopril Other reaction(s): Dry cough Lyrica [Pregabalin] Other Outpatient Medications: Current Outpatient Medications Medication Instructions aspirin 81 mg, oral, 3 times weekly baclofen (LIORESAL) 10 mg, oral, 3 times daily coenzyme Q-10 100 mg, oral, Daily diclofenac (VOLTAREN) 50 mg, oral, As needed furosemide (LASIX) 40 mg, oral, Once Daily losartan (COZAAR) 25 mg, Every morning metoprolol succinate XL (TOPROL-XL) 50 mg, oral, Daily oxyCODONE-acetaminophen (Percocet) 5-325 mg tablet 1 tablet, oral, 3 times daily PRN pantoprazole (PROTONIX) 40 mg, oral, Daily pramipexole (MIRAPEX) 1.5 mg, oral, Daily pregabalin (LYRICA) 50 mg, oral, Nightly sp (more content not included)... [facility] 03-21-2024 Note NM Electrophysiology Consult Note Reason for visit: Afib [...] GI bleed. [facility] She was initially seen by [...] on file Intimate Partner Violence: Unknown (07/23/2023) NM Safety & Environment Fear of Current or [...] mg tablet Ta (more content not included)... [facility] 02-14-2024 Note This report has been cancelled. [facility] 02-11-2024 Note RCRI= 2 points Class III Risk 10.1 % 30-day risk of , IA, or cardiac arrest From a cardiac perspective pt may proceed with planned surgery, she is a moderate risk for a moderate risk orthopedic surgery. She may hold Aspirin 5-7 days prior and resume post op. Please monitor hemodynamics carefully and prevent any major fluid shifts. Toya SULTANA [place] Cardiology Available 7a-5pm via [employer] Chat Pager [phone] [facility] 12-28-2023 Miscellaneous Notes Rec'd letter from patient stating that she no longer sees [facility], uses a doctor in [place]. documented in this encounter [facility] 12-28-2023 Telephone encounter Note Rec'd letter from patient stating that she no longer sees [facility], uses a doctor in [place]. [facility] 12-06-2023 Miscellaneous Notes Last OV 06/15/22.slm T/C to pt to sched [facility] f/u appt. No answer and mailbox is full. documented in this encounter [facility] 12-06-2023 Telephone encounter Note Last OV 06/15/22.slm [facility] 12-06-2023 Telephone encounter Note T/C to pt to sched [facility] f/u appt. No answer and mailbox is full. [facility] 12-01-2023 Note Currently pt is doin g quite well s/p recent AV node ablation Remains V paced with BI-V AICd [facility] 12-01-2023 Note No anticoagulation currently [facility] 12-01-2023 Note Patient here for fol low up AV node ablation performed on 11/01/[address] Madden. She denies chest pain, SOB, palpitations, and lightheadedness/syncope. Review of Systems Musculoskeletal: Positive for arthritis and back pain. All other systems reviewed and are negative. [facility] 12-01-2023 Note [facility] CARDIOLOGY PROGR [...] GI bleed. She was previously seen by [facility] cardiology. She was initially seen [...] Conjunctiva/sclera: Conjunctivae normal. (more content not included)... [facility] 11-01-2023 Note AV NODE ABLATION PRO CEDURE REPORT DATE OF PROCEDURE: 11/01/2023 PERFORMING PHYSICIAN: Dr. Robert Madden WATER TRUCK DRIVER: TOÑA CONSENT: Patient NAME OF THE PROCEDURE: [...] GI bleed. She was previously seen by [facility] cardiology. She was initially seen [...] Continue anticoagulation. Robert Madden MD Cardiac Electrophysiology. [facility] 11-01-2023 Note Patient: Radha mcghee Procedure Information Date/Time: 11/01/23829 Procedure: AV node ablation Location: [facility] 1 EP / [facility] (Cath) Providers: Robert Madden MD Clinical information reviewed: Tobacco Allergies Meds Med Hx Surg Hx OB Status Fam Hx Physical Exam Airway Mallampati: II TM distance: >3 FB Neck ROM: full Cardiovascular Dental Pulmonary Abdominal Anesthesia Plan ASA 2 CSE Anesthetic plan and risks discussed with patient. Use of blood products discussed with patient who. Additional Equipment Requests [facility] 11-01-2023 Note NM Electrophysiology Consult Note Reason for visit: Afib [...] GI bleed. She was previously seen by [facility] cardiology. She was initially seen [...] on file Intimate Partner Violence: Unknown (07/23/2023) NM Safety & Environment Fear of Current or [...] 50 mg tab (more content not included)... [facility] 09-10-2023 Miscellaneous Notes Please sign and route if you agree. Thank you HODAN 06/22/22 Pt needs annual appt schedule please, thank you. Letter mailed. LMOM for the patient to call and schedule their next appointment with [facility]. documented in this encounter [facility] 09-10-2023 Telephone encounter Note Please sign and route if you agree. Thank you HODAN 06/22/22 Pt needs annual appt schedule please, thank you. Letter mailed. [facility] 09-10-2023 Telephone encounter Note LMOM for the patient to call and schedule their next appointment with [facility] 08-27-2023 Note ca [facility] 06-11-2023 Miscellaneous Notes Last OV 06/15/22, sent to [facility] commercial front load operator for yearly visit to be scheduled. CMP 06/22/22. BMP ordered from refill encounter 06/08/23. Letter has been mailed, but will attempt to send letter via as last login was 05/07/23. 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 CMP 06/22/22. BMP ordered from refill encounter 06/08/23. Letter has been mailed, but will attempt to send letter via as last login was 05/07/23. [facility] 07-23-2022 Note PAIN MANAGEMENT CONS ULTATION CONSULTATION [...] sided Gaenslen's maneuver, pelvic compression test and Mnoty's test. She had a moderate amount of [...] months' time or sooner if needed. [facility] 03-26-2022 Note CONSULTATION CONSULTATION DATE: [...] agrees with the plan of care. [facility] 12-24-2021 Note CONSULTATION PROCEDURE DATE: [...] the procedure well with no complications. [facility] 12-24-2021 Note CONSULTATION CONSULTATION DATE: [...] three months' time, unless otherwise indicated. [facility] Evaluation note Diagnosis Essential hypertension- Primary Unspecified essential hypertension documented [facility] Diagnosis Chronic systolic CHF (congestive heart failure) ([facility]) [facility]* Diagnosis Onset Date Resolution Status [...] Iron deficiency acute July 27, 2024 10:10am [facility] Work Phone: InstructionsNot on filedocumented in this encounter [facility]Not on filedocumented in this encounter [facility] SystemInstructionsNot on filedocumented in this encounter [facility] SystemInstructionsNot on filedocumented in this encounter [facility] Summary Purpose Family History No Family History Records FoundNo Family History Records FoundNo Family History Records FoundNo Family History Records Found Advance Directives No Advanced Directives Records Found Advance Directive Response Recorded Date/ Time Advance [...] content) DATE CREATED AUTHOR 07/25/2020 [facility] DATE CREATED AUTHOR AUTHOR'S ORGANIZ ATION 10/12/2022 [facility] [place] [facility] DATE CREATED AUTHOR AUTHOR'S ORGANIZ ATION 01/17/2024 [facility] EPIC DATE CREATED AUTHOR AUTHOR'S ORGANIZ ATION 08/20/2024 [facility] Reason for Visit (unrecogniz ed section and content) Reason Comments Med Refill Reason Onset Date Comments Med Refill 12/06/2023 Care Teams (unrecognized sec tion and content) Senior Marketing Specialist Relationship Specialty Start Date End Date Heaven Staley APRN-CNP [address] [facility], [place] [address] PCP - General Family Medicine 10/30/21 Senior Marketing Specialist Relationship Specialty Start Date End Date Heaven Staley APRN-CNP [address] [facility], [place] [address] PCP - General Family Medicine 10/30/21 Senior Marketing Specialist Relationship Specialty Start Date End Date Heaven Staley APRN-CNP [address] [place] [address] PCP - General Family Medicine 10/30/21 Senior Marketing Specialist Relationship Specialty Start Date End Date Heaven Staley APRN-CNP [address] [place] [address] PCP - General Family Medicine 10/30/21 Team Status: Active Member Role Status Dates WANDA Rich Primary Care Provider Active Team Status: Inactive Member Role Status Dates Juliana Landeros MD Attending Provider Active Start : July 27, 2024 End: July 27, 2024 WANDA Rich Primary Care Pr ovider, Referring Provider Active Start: July 27, 2024 [...] BE BASED ON THE PRIMARY CLINICAL RECORDS. [employer] provides no warranty or guarantee of the accuracy or completeness of information in this document.
[2024-09-11 11:16] LABS: Chol HDL Ratio 2.3; Cholesterol 125 mg/dL (<=200); HDL Cholesterol 54 mg/dL (40-60); LDL Cholesterol Calculated 57.8 mg/dL; Triglycerides 66 mg/dL (<=150); VLDL CHOLESTEROL 13.2 mg/dL
== END 2024-09-11 09:52 | disposition home or self-care (01) ==
LOC: LAB 09:57
PROVIDERS: PCP Nurse Practitioner Family
DX: E78.2 Mixed hyperlipidemia (principal)
CPT/HCPCS: 36415; 80061

== ENCOUNTER 2024-09-11 10:01 | Outpatient (OUT) | payer MEDICARE, SELFPAY ==
--- NOTE | 2024-09-11 10:06 | US_ITS ---
The [address] [address] Patient Name: SAUL GUTIÉRREZ MRN: [id number] date: 1945 Sex: F Assigned Patient Location: [place] Current Patient Location: [place] Accession/Order Number: [id number] Exam Date: 09/11/2024 11:20 Report Date: 09/11/2024 11:30 At the request of: TREVOR TIMMONS Procedure: US renal BI BILATERAL RENAL AND BLADDER ULTRASOUND CLINICAL HISTORY: Stage 3 Chronic Kidney Disease, Hypertensive Renal Disease COMPARISON: CT 06/16/2022 Estimation of renal size is approximately 10.7 cm on the right and 10.2 cm on the left. No shadowing calculi or hydronephrosis are identified. There are cysts bilaterally, largest at the upper pole on the right measuring 18 x 16 x 16 mm. There is no perinephric fluid. The urinary bladder is partially distended with a volume of 98 mL. No contour or intraluminal abnormalities are seen. US/US renal BI IMPRESSION: SMALL RENAL CYSTS. NO OBSTRUCTIVE UROPATHY. Impression dictated by: Adelaida Davis M.D.09/11/2024 11:30 AM Dictation Location: [place] [address] Electronically authenticated by: [id number] Y Date: 09/11/2024 11:30
== END 2024-09-11 10:02 | disposition home or self-care (01) ==
LOC: US 10:01
PROVIDERS: PCP Nurse Practitioner Family; Visit Provider Internal Medicine
DX: I50.22 Chronic systolic (congestive) heart failure (principal); E78.5 Hyperlipidemia, unspecified; I48.91 Unspecified atrial fibrillation; I12.9 Hypertensive chronic kidney disease with stage 1 through stage 4 chronic kidney disease, or unspecified chronic kidney disease; N18.30 Chronic kidney disease, stage 3 unspecified; N28.9 Disorder of kidney and ureter, unspecified
CPT/HCPCS: 76775

== ENCOUNTER 2024-09-25 09:35 | Outpatient (OUT) | payer MEDICARE, SELFPAY ==
--- NOTE | 2024-09-25 09:40 | MM_ITS ---
Patient Name: SAUL GUTIÉRREZ MR#: [id number] : 1945 Exam Date: 09/25/2024 Ordering Doctor: FIDELINA STALEY CNP RADIOLOGY REPORT PROCEDURE: MM TOMOSYNTHESIS SCREENING BI COMPARISON: MG MAMM SCREEN 3D NIKOS CAD, 09/22/2022. MG MAMM SCREEN 3D NIKOS CAD, 08/28/2021. MG MAMM SCREEN NIKOS W CAD, 07/29/2020. MG MAMM SCREEN NIKOS W CAD, 06/08/2018. INDICATIONS: Screening Calculator Name NCI Breast Cancer Risk Assessment Tool 5 Year Breast Cancer Risk 1.20% Lifetime Breast Cancer Risk 2.00% Personal Breast Cancer No Personal Ovarian Cancer No Treatments None Family Cancers None LOCATION: [facility] BREAST COMPOSITION: The breasts are almost entirely fatty. FINDINGS: DIAGNOSTIC CATEGORY 1--NEGATIVE. RIGHT BREAST: No significant suspicious finding. LEFT BREAST: No significant suspicious finding. RECOMMENDATIONS: ROUTINE MAMMOGRAM AND CLINICAL EVALUATION IN 12 MONTHS. PLEASE NOTE: A NORMAL MAMMOGRAM DOES NOT EXCLUDE THE POSSIBILITY OF BREAST CANCER. A CLINICALLY SUSPICIOUS PALPABLE LUMP SHOULD BE BIOPSIED. Dictated by: Clifton Barber DO on 09/25/2024 at 16:49 Approved by: Clifton Barber DO on 09/25/2024 at 16:52
== END 2024-09-25 09:36 | disposition home or self-care (01) ==
LOC: RAD 09:36
PROVIDERS: PCP Nurse Practitioner Family; Visit Provider Nurse Practitioner Family
DX: Z12.31 Encounter for screening mammogram for malignant neoplasm of breast (principal); M81.0 Age-related osteoporosis without current pathological fracture; M85.80 Other specified disorders of bone density and structure, unspecified site
CPT/HCPCS: 77063; 77067; 77080

== ENCOUNTER 2024-10-09 08:26 | Outpatient (OUT) | payer MEDICARE, SELFPAY ==
--- OUTSIDE RECORDS SUMMARY | 2024-10-09 08:40 | XMS_ITS | CCD ---
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 Role Phone JOHNSON ., DR JAYLON Ruelas Admitting Unavailable ORNELAS ., DR JAYLON Ruelas Attending Unavailable LUÍS, HEAVEN Primary Care Unavailable ORNELAS ., DR JAYLON Ruelas Consulting Unavailable MICHELINE MOLINA Consulting Unavailable ORNELAS ., DR JAYLON Ruelas Admitting Unavailable ORNELAS ., DR JAYLON Ruelas Attending Unavailable [facility] Primary Care Unavailable RODRIGUEZ ., SABRINA Consulting Unavailable ORNELAS ., DR JAYLON Ruelas Admitting Unavailable ORNELAS ., DR JAYLON Ruelas Attending Unavailable [facility] Primary Care Unavailable RODRIGUEZ ., SABRINA Consulting Unavailable [facility] Primary Care Unavailable LAKSHMIPATHY ., NARENDRANATH Admitting Charity vailable LAKSHMIPATHY ., NARENDRANATH Attending Charity vailable LAKSHMIPATHY ., NARENDRANATH Consulting Charity vailable LAKSHMIPATHY ., NARENDRANATH Admitting Charity vailable LAKSHMIPATHY ., NARENDRANATH Attending Charity vailable [facility] Primary Care Unavailable LUÍS, HEAVEN Admitting Unavailable HEAVEN STALEY Attending [facility]available [facility] Primary Care Unavailable DR OSWALDO VALENZUELA Consulting Unavailable HEAVEN STALEY Consulting Unavailable LUÍS, [facility] Primary Care Unavailable DAREK .KEILY Admitting Unavailable DAREK ., KEILY Attending Unavailable DAREK ., KEILY Consulting Unavailable KELSIE DEL ANGEL Consulting Unavailable OSWALDO GARCÍA Attending Unavailable SANDIE PAGE Attending Unavailable HEAVEN STALEY Referring Unavailable SANDIE PAGE Attending Unavailable CARIDAD GARNER Attending Unavailable Heaven Steven Primary Care Provider SHAYY ORTIZ Referring Unavailable ROBERT MADDEN Referring Unavailable ROBERT MADDEN Admitting Unavailable ROBERT MADDEN Attending Unavailable ROBERT AMDDEN Referring Unavailable NAVID, ROBERT Referring Unavailable NAVID, [...] sources) Codeine; Translations: [CODEINE] Drug Allergy 06-06-2014 [facility] (5 sources) Codeine Drug Allergy 06-06-2014 [facility] (6 sources) Lisinopril; Translations: [LISINOPRIL] Drug Allergy 10-19-2014 [facility] (2 sources) pregabalin; Translations: [PREGABALIN] Drug Allergy 12-01-2023 [facility] Medications Current Medications Medication Drug Class(es) [...] 30 tablet 1 06/08/2023 Active lactobacillus acidophilus [id number] unt oral capsule (5 sources) take 1 [...] 27, 2024 12:00am take 3 tablets by [facility] once daily as needed traZODone (DESYREL) 50 mg tablet Take 3 tablets (150 mg total) by mouth nightly as needed. 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 Office Visiton 03-21-2024 Follow-up visit [id number] Radha Gutiérrez 1945 Provider Department Center 03/21/2024 ROBERT GEE MAGNUS Herrera [facility] Family History Problem Relation Age of Onset Heart failure Father Family Status - Relation Status Age at Father Level of Service:73408 [place] OFFICE/OUTPATIENT ESTABLISHED LOW MDM [address] [facility] 36on 02-11-2024 36 Tried to contact patient and she has no VM set up. Will try again on Wednesday morning. [facility] Documentationon 02-11-2024 Documentation [id number] Radha Gutiérrez 1945 Provider Department Center 02/11/2024 TOYA VALENCIA MAGNUS Scott . Family History Problem Relation Age of Onset Heart failure Father Family Status - Relation Status Age at Father [facility] 36on 02-08-2024 36 Patient had her [...] Dr. Madden until 03/21. Please advise. Thanks. [facility] Telephoneon 02-08-2024 Telephone [id number] Radha Gutiérrez 1945 F Date Provider Department Center 02/08/2024 928-CARIDAD LOVE MAGNUS [facility] Family History Problem Relation Age of Onset Heart failure Father Family Status - Relation Status Age at Father [facility] Office Visiton 12-01-2023 Follow-up visit [id number] Radha Gutiérrez 1945 F Date Provider Department Center 12/01/2023 120-DARRIUSTOYA Ruelas MAGNUS [facility] Family History Problem Relation Age of Onset Heart failure Father Family Status - Relation Status Age at Father Level of Service:41238 [place] POSTOP FOLLOW UP VISIT RELATED TO ORIGINAL PX [facility] HPon 11-01-2023 [facility] Electrophysiology Consult Note Reason for visit: [...] [facility] She was initially seen by [...] a year. She was seen by [facility] in January 25, 2023 for A-fib and [...] on file Intimate Partner Violence: Unknown (07/23/2023) [place] Safety & Environment Fear of Current or [...] mg tab (more content not included)... Normal [facility] NURSNOTEon 11-01-2023 NURSNOTTammy RN educated pt on d/ c instructions. RN encouraged pt to voice any questions or concerns. Pt verbalizes no questions or concerns at this time. Normal [facility] Orders Onlyon 10-22-2023 Orders Only [id number] Radha Gutiérrez 1945 F Date Provider Department Center 10/22/2023 DEMOND RAM[facility] Family History Problem Relation Age of Onset Heart failure Father Family Status - Relation Status Age at Father Normal [facility] INSULINon 09-23-2022 Insulin 7.9 uIU/mL Normal 2.6-24.9 [facility] Comment on above: Performed By: #### I NSULIN ####[facility] [address] [place] [address]Dr. Ravin Dior CBC AUTO DIFFon 09-22-2022 BASO # 0.0 103/ul Normal 0.0-0.1 [facility] Comment on above: Performed By: #### C BC ####[facility] [address] [place], [place] [address]Dr. Ravin Dior Basophils/100 WBC (Bld) 0.4 % Normal 0.2-2.0 [facility] Comment on above: Performed By: #### C BC ####[facility] [address] [place], [place] [address]Dr. Ravin Dior EO # 0.6 103/ul Normal 0.0-0.7 [facility] Comment on above: Performed By: #### C BC ####[facility] Os[address] [place], [place] [address]Dr. Ravin Dior Eosinophils/100 WBC (Bld) 6.6 % Normal 0.9-7.0 [facility] Comment on above: Performed By: #### C BC ####[facility] Lingwktcic[address] [place], [place] [address]Dr. Ravin Dior Erythrocyte distribution width (RBC) [Ratio] 16.2 % Critically high 11.0-15.0 [facility] Comment on above: Performed By: #### C BC ####[facility] Qygtkfvqfr[address] [place], [place] [address]Dr. Ravin Dior Hematocrit (Bld) [Volume fraction] 43.3 % Normal 36.0-48.0 [facility] Comment on above: Performed By: #### C BC ####[facility] R[address] [place], [place] [address]Dr. Ravin Dior Hemoglobin (Bld) [Mass/Vol] 13.4 g/dL Normal 12.0-16.0 [facility] Comment on above: Performed By: #### C BC ####[facility] [address] [place] [address]Dr. Ravin Dior IG # 0.05 10e3/ul Critically high 0.00-0.03 [facility] Comment on above: Performed By: #### C BC ####[facility] [address] [place] [address]Dr. Novalilliana Dior IG % 0.5 % Normal 0.0-0.5 [facility] Comment on above: Performed By: #### C BC ####[facility] [address] [place] [address]Dr. Ravin Dior LYMPH # 2.1 103/ul Normal 1.2-3.8 [facility] Comment on above: Performed By: #### C BC ####[facility] [address] [place] [address]Dr. Ravin Dior Lymphocytes/100 WBC (Bld) 23.1 % Normal 20.5-60.0 [facility] Comment on above: Performed By: #### C BC ####[facility] [address] [place] [address]Dr. Novalilliana Dior MANUAL DIFF REQ NO Normal [facility] Comment on above: Performed By: #### C BC ####[facility] [address] [place] [address]Dr. Novalilliana Dior MCH (RBC) [Entitic mass] 29.5 pg Normal 26.7-34.0 [facility] Comment on above: Performed By: #### C BC ####[facility] [address] [place] [address]Dr. Ravin Ovi MCHC (RBC) [Mass/Vol] 30.9 g/dL Normal 29.9-35.2 [facility] Comment on above: Performed By: #### C BC ####[facility] [address] [place] [address]Dr. Novalilliana Dior MCV (RBC) [Entitic vol] 95.4 fL Normal 81.0-99.0 [facility] Comment on above: Performed By: #### C BC ####[facility] [address] [place] [address]Dr. Ravin Dior MONO # 0.5 103/ul Normal 0.3-0.8 [facility] Comment on above: Performed By: #### C BC ####[facility] [address]fs[address] [place] [address]Dr. Ravin Dior Monocytes/100 WBC (Bld) 5.8 % Normal 1.7-12.0 [facility] Comment on above: Performed By: #### C BC ####[facility] [address] [place] [address]Dr. Ravin Dior NEUT # 5.8 103/ul Normal 1.4-6.5 [facility] Comment on above: Performed By: #### C BC ####[facility] [address] [place], [place] [address]Dr. Ravin Dior Neutrophils/100 WBC (Bld) 63.6 % Normal 43.0-75.0 [facility] Comment on above: Performed By: #### C BC ####[facility] K[address] [place], [place] [address]Dr. Ravin Dior Platelet mean volume (Bld) [Entitic vol] 10.7 fL Normal 9.5-13.5 [facility] Comment on above: Performed By: #### C BC ####[facility] [address] [place], [place] [address]Dr. Ravin Dior PLT 223 103/ul Normal 150-450 [facility] Comment on above: Performed By: #### C BC ####[facility] [address] [place], [place] [address]Dr. Ravin Dior RBC 4.54 106/ul Normal 4.20-5.40 [facility] Comment on above: Performed By: #### C BC ####[facility] [address] [place] [address]Dr. Ravin Dior WBC 9.2 103/ul Normal 4.0-11.0 [facility] Comment on above: Performed By: #### C BC ####[facility] [address] [place] [id number]. Ravin Dior FREE THYROXINE INDEX T7on FTI 2.44 Normal 1.30-4.50 [facility] Comment on above: Performed By: #### C MP, T7, TSH, LIPID #### [facility] [address] [place] [address] [address] Ravin Dior T3U 33.0 % Normal 30.0-39.0 [facility] Comment on above: Performed By: #### C MP, T7, TSH, LIPID #### [facility] [address] [address] [address] Ravin Dior T4 [Mass/Vol] 7.40 ug/dL Normal 4.80-13.90 [facility] Comment on above: Performed By: #### C MP, T7, TSH, LIPID #### [facility] [address] [address] [address] Ravin Dior GLYCOHEMOGLOBIN A1Con 2022 ADA RECOMMENDATION SEE BELOW Normal [facility] Comment on above: Result Comment: ADA RECOMMENDED LIMIT 4.0 - 6.0 ADA THERAPEUTIC TARGET < 7.0 ACTION SUGGESTED > 7.0 Performed By: #### A 1C ####[facility] [address] [place] [address]DrViky Dior Glucose [Mass/Vol] 105 mg/dL Normal [facility] Comment on above: Performed By: #### A 1C ####[facility] [address] [place] [address]Dr. Ravin Dior HbA1c (Bld) [Mass fraction] 5.3 % Normal 4.5-6.2 [facility] Comment on above: Performed By: #### A 1C ####[facility] [address] [place] [address]Dr. Ravin Dior IRONon 09-22-2022 Iron [Mass/Vol] 81.0 ug/dL Normal 50.0-170.0 [facility] Comment on above: Performed By: #### I SEAMUS ####[facility] [address] [place] [address]Dr. Bhattlan Dior LIPID PROFILEon 09-22-2022 CHOL-HDL RATIO NORM SEE BELOW Normal [facility] Comment on above: Result Comment: 3.3 - 4.4 LOW RISK 4.4 - 7.1 AVERAGE RISK 7.1 - 11.0 MODERATE RISK >11.0 HIGH RISK Performed By: #### C MP, T7, TSH, LIPID ####[facility] [address] [place] [address]Dr. Novalilliana Dior Cholesterol [Mass/Vol] 159 mg/dL Normal <=200 [facility] Comment on above: Performed By: #### C MP, T7, TSH, LIPID ####[facility] [address] [place] [address]Dr. Ravin Dior Cholesterol in HDL [Mass/Vol] 47 mg/dL Normal 40-60 [facility] Comment on above: Performed By: #### C MP, T7, TSH, LIPID ####[facility] [address] [place] [address]Dr. Ravin Dior Cholesterol in LDL [Mass/Vol] 96.4 mg/dL Normal [facility] Comment on above: Performed By: #### C MP, T7, TSH, LIPID ####[facility] [address] [place] [address]Dr. Ravin Dior Cholesterol.total/Cho lesterol in HDL [Mass ratio] 3.4 {ratio} Normal [facility] Comment on above: Performed By: #### C MP, T7, TSH, LIPID ####[facility] [address] [place] [phone]. Novalilliana Dior HDL NORMAL > or = 60 mg/dl - LO W CARDIOVASCULAR RISK <40 mg/dl - HIGH CARDIOVASCULAR RISK Normal [facility] Comment on above: Performed By: #### C MP, T7, TSH, LIPID ####[facility] [address] [place] [id number]. Novalilliana Dior LDL CALC NORMAL SEE BELOW Normal [facility] Comment on above: Result Comment: <100 mg/dl OPTIMAL 100 - 129 mg/dl NEAR OR ABOVE OPTIMAL 130 - 159 mg/dl BORDERLINE HIGH 160 - 189 mg/dl HIGH >190 mg/dl VERY HIGH Performed By: #### C MP, T7, TSH, LIPID ####[facility] [address] [place], [place] [address]Bk. Ravin Dior Triglyceride [Mass/Vol] 78 mg/dL Normal <=150 [facility] Comment on above: Performed By: #### C MP, T7, TSH, LIPID ####[facility] [address] [place], [place] [address]Gi. Ravin Dior VLDL CALC 15.6 mg/dL Normal [facility] Comment on above: Performed By: #### C MP, T7, TSH, LIPID ####[facility] [address] [place], [place] [address]Eq. Ravin Dior MG MAMM SCREEN 3D NIKOS CADon 09-22-2022 MG MAMM SCREEN 3D NIKOS CAD Patient: RADHA GUTIÉRREZ Exam Date: 09/22/2022 : 1945 Gender:F Ordering : [facility] Admission #: [id number] Family : Order #: [id number] CLICK HERE TO VIEW EXAM RADIOLOGY REPORT [...] Treatments None Family Cancers None LOCATION: The [facility] BREAST COMPOSITION: Almost entirely fatty. FINDINGS: [...] Valenzuela M.D. on 09/22/2022 at 17:02 Normal [facility] PROF 14(COMP METB)on 023 Albumin [Mass/Vol] 3.3 g/dL Critically low 3.4-5.0 [facility] Comment on above: Performed By: #### C MP, T7, TSH, LIPID #### [facility] [address] [address] [address] Ravin Dior Albumin/Globulin [Mass ratio] 0.7 {ratio} Normal [facility] Comment on above: Performed By: #### C MP, T7, TSH, LIPID #### [facility] [address] [place] [address] [address] Ravin Dior ALP [Catalytic activity/Vol] 207 U/L Critically high 46-116 [facility] Comment on above: Performed By: #### C MP, T7, TSH, LIPID #### [facility] [address] [place] [address] Dr. Ravin Dior ALT [Catalytic activity/Vol] 47 U/L Normal 14-59 [facility] Comment on above: Performed By: #### C MP, T7, TSH, LIPID #### [facility] [address] [address] [address] Ravin iDor Anion gap [Moles/Vol] 11.5 mmol/L Normal [facility] Comment on above: Performed By: #### C MP, T7, TSH, LIPID #### [facility] [address] [address] [address] Ravin Dior AST [Catalytic activity/Vol] 35 U/L Normal 15-37 [facility] Comment on above: Performed By: #### C MP, T7, TSH, LIPID #### [facility] [address] [address] [address] Ravin Dior Bilirubin [Mass/Vol] 0.6 mg/dL Normal 0.2-1.0 [facility] Comment on above: Performed By: #### C MP, T7, TSH, LIPID #### [facility] [address] [address] [address] Ravin Dior Calcium [Mass/Vol] 9.2 mg/dL Normal 8.5-10.1 [facility] Comment on above: Performed By: #### C MP, T7, TSH, LIPID #### [facility] [address] [address] [address] Ravin Dior Chloride [Moles/Vol] 109 mmol/L Critically high 98-107 [facility] Comment on above: Performed By: #### C MP, T7, TSH, LIPID #### [facility] [address] [place] [address] Dr. Ravin Dior CO2 [Moles/Vol] 27.7 mmol/L Normal 21.0-32.0 [facility] Comment on above: Performed By: #### C MP, T7, TSH, LIPID #### [facility] [address] [place] [address] Dr. Ravin Dior Creatinine [Mass/Vol] 0.94 mg/dL Normal 0.55-1.02 [facility] Comment on above: Performed By: #### C MP, T7, TSH, LIPID #### [facility] [address] [place] [address] Dr. Ravin Dior EGFR-AF VENEZUELAN >60 Normal >=60 [facility] Comment on above: Performed By: #### C MP, T7, TSH, LIPID #### [facility] [address] [place] [address] Dr. Ravin Dior EGFR-NON AF VENEZUELAN 58 mL/min/1.73m2 Critically low >=60 [facility] Comment on above: Performed By: #### C MP, T7, TSH, LIPID #### [facility] [address] [place] [address] Dr. Ravin Dior Globulin (S) [Mass/Vol] 4.7 g/dL Normal [facility] Comment on above: Performed By: #### C MP, T7, TSH, LIPID #### [facility] [address] [place] [address] Dr. Ravin Dior Glucose [Mass/Vol] 95 mg/dL Normal 74-106 [facility] Comment on above: Performed By: #### C MP, T7, TSH, LIPID #### [facility] [address] [place] [address] Dr. Ravin Dior Potassium [Moles/Vol] 4.2 mmol/L Normal 3.5-5.1 [facility] Comment on above: Performed By: #### C MP, T7, TSH, LIPID #### [facility] [address] [place] [address] Dr. Ravin Dior Protein [Mass/Vol] 8.0 g/dL Normal 6.4-8.2 [facility] Comment on above: Performed By: #### C MP, T7, TSH, LIPID #### [facility] [address] [place] [address] Dr. Ravin Dior Sodium [Moles/Vol] 144 mmol/L Normal 136-145 [facility] Comment on above: Performed By: #### C MP, T7, TSH, LIPID #### [facility] [address] [place] [address] Dr. Ravin Dior Urea nitrogen [Mass/Vol] 21.0 mg/dL Critically high 7.0-18.0 [facility] Comment on above: Performed By: #### C MP, T7, TSH, LIPID #### [facility] [address] [place] [address] Dr. Ravin Dior Urea nitrogen/Creatinine [Mass ratio] 22.3 mg/mg Normal [facility] Comment on above: Performed By: #### C MP, T7, TSH, LIPID #### [facility] [address] [place] [address] Dr. Ravin Dior TSHon 09-22-2022 TSH 2.085 uIU/mL Normal 0.358-3.740 [facility] Comment on above: Performed By: #### C MP, T7, TSH, LIPID #### [facility] [address] [place] [address] ABD/PELVIS WO CONon [...] was used, including Automated Exposure Control. 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 Normal [facility] CBC AUTO DIFFon 05-17-2022 BASO # 0.0 103/ul Normal 0.0-0.1 [facility] Comment on above: Performed By: #### C BC ####[facility] [address] [place] [address]Dr. Ravin Dior Basophils/100 WBC (Bld) 0.2 % Normal 0.2-2.0 [facility] Comment on above: Performed By: #### C BC ####[facility] [address] [place] [address]Dr. Ravin Dior EO # 0.1 103/ul Normal 0.0-0.7 [facility] Comment on above: Performed By: #### C BC ####[facility] [address] [place], [place] [address]Dr. Ravin Dior Eosinophils/100 WBC (Bld) 1.4 % Normal 0.9-7.0 [facility] Comment on above: Performed By: #### C BC ####[facility] [address] [place], [place] [address]Dr. Ravin Dior Erythrocyte distribution width (RBC) [Ratio] 13.7 % Normal 11.0-15.0 [facility] Comment on above: Performed By: #### C BC ####[facility] [address] [place], [place] [address]Dr. Ravin Dior Hematocrit (Bld) [Volume fraction] 44.4 % Normal 36.0-48.0 [facility] Comment on above: Performed By: #### C BC ####[facility] [address] [place], [place] [address]Dr. Ravin Dior Hemoglobin (Bld) [Mass/Vol] 14.7 g/dL Normal 12.0-16.0 [facility] Comment on above: Performed By: #### C BC ####[facility] [address] [place], [place] [address]Dr. Ravin Dior IG # 0.05 10e3/ul Critically high 0.00-0.03 [facility] Comment on above: Performed By: #### C BC ####[facility] [address] [place], [place] [address]Dr. Ravin Dior IG % 0.5 % Normal 0.0-0.5 [facility] Comment on above: Performed By: #### C BC ####[facility] [address] [place] [address]DrViky Dior LYMPH # 1.7 103/ul Normal 1.2-3.8 [facility] Comment on above: Performed By: #### C BC ####[facility] [address] [place] [address]DrViky Dior Lymphocytes/100 WBC (Bld) 17.1 % Critically low 20.5-60.0 [facility] Comment on above: Performed By: #### C BC ####[facility] [address] [place], [place] [address]DrViky Dior MANUAL DIFF REQ NO Normal [facility] Comment on above: Performed By: #### C BC ####[facility] [address] [place], [place] [address]Dr. Ravin Dior MCH (RBC) [Entitic mass] 30.7 pg Normal 26.7-34.0 [facility] Comment on above: Performed By: #### C BC ####[facility] [address] [place], [place] [address]DrViky Dior MCHC (RBC) [Mass/Vol] 33.1 g/dL Normal 29.9-35.2 [facility] Comment on above: Performed By: #### C BC ####[facility] [address]fw[address] [place], [place] [address]DrViky Dior MCV (RBC) [Entitic vol] 92.7 fL Normal 81.0-99.0 [facility] Comment on above: Performed By: #### C BC ####[facility] [address]jxnw[address] [place], [place] [address]DrViky Dior MONO # 0.6 103/ul Normal 0.3-0.8 [facility] Comment on above: Performed By: #### C BC ####[facility] [address]vmnrp[address] [place], [place] [address]DrViky Dior Monocytes/100 WBC (Bld) 5.7 % Normal 1.7-12.0 [facility] Comment on above: Performed By: #### C BC ####[facility] [address] [place] [address]Dr. Novalilliana Dior NEUT # 7.7 103/ul Critically high 1.4-6.5 [facility] Comment on above: Performed By: #### C BC ####[facility] [address] [place] [address]Dr. Ravin Dior Neutrophils/100 WBC (Bld) 75.1 % Critically high 43.0-75.0 [facility] Comment on above: Performed By: #### C BC ####[facility] [id number] [place] [address]DrViky Dior Platelet mean volume (Bld) [Entitic vol] 10.4 fL Normal 9.5-13.5 The [facility] Comment on above: Performed By: #### C BC ####[facility] [address] [place] [address]Dr. Ravin Dior PLT 294 103/ul Normal 150-450 The [facility] Comment on above: Performed By: #### C BC ####[facility] [id number] [place] [id number] Dior RBC 4.79 106/ul Normal 4.20-5.40 The [facility] Comment on above: Performed By: #### C BC ####[facility] [id number] [place] [id number] Dior WBC 10.2 103/ul Normal 4.0-11.0 The [facility] Comment on above: Performed By: #### C BC ####[facility] [address] [place] [id number]. Ravin Dior ER URINE PROFILEon 2 Bilirubin Ql (U) Negative Normal NEGATIVE The [facility] Comment on above: Performed By: #### E ALDA SOUTH #### [facility] [id number] Ravin Dior Clarity (U) CLEAR Normal CLEAR The [facility] Comment on above: Performed By: #### Tammy SOUTH UMICRO #### [facility] [address] [place] [address] Dr. Ravin Dior Color (U) LT. YELLOW Normal YELLOW The [facility] Comment on above: Performed By: #### Tammy SOUTH UMICRO #### [facility] [address] [place] [address] Dr. Ravin PARKER A micrscopic examination will be performed if indicated. Normal The [facility] Comment on above: Performed By: #### Tammy SOUTH UMICRO #### [facility] [address] [place] [address] Dr. Ravin Dior Glucose Ql (U) Negative Normal NEGATIVE The [facility] Comment on above: Performed By: #### Tammy SOUTH UMICRO #### [facility] [address] [place] [address] Dr. Ravin Dior Hemoglobin Ql (U) Negative Normal NEGATIVE [facility] Comment on above: Performed By: #### Tammy SOUTH UMICRO #### [facility] [address] [place] [address] Dr. Ravin Dior Ketones Ql (U) TRACE Abnormal NEGATIVE The [facility] Comment on above: Performed By: #### Tammy SOUTH UMICRO #### [facility] [address] [place] [address] Dr. Ravin Dior LEUKOCYTES SMALL Abnormal NEGATIVE The [facility] Comment on above: Performed By: #### Tammy SOUTH UMICRO #### [facility] [address] [place] [address] Dr. Ravin Dior Nitrite Ql (U) Negative Normal NEGATIVE The [facility] Comment on above: Performed By: #### Tammy SOUTH UMICRO #### [facility] [address] [place] [address] Dr. Ravin Dior pH (U) 6.0 [pH] Normal 5-9 The [facility] Comment on above: Performed By: #### Tammy SOUTH UMICRO #### [facility] [address] [place] [address] Dr. Ravin Dior SPEC GRAVITY 1.010 Normal 1.005-<=1.025 The [facility] Comment on above: Performed By: #### ALDA KAUFFMAN #### [facility] [address] [place] [address] Dr. Ravin Dior UA PROTEIN Negative Normal NEGATIVE/ TRACE The [facility] Comment on above: Performed By: #### DENY KAUFFMANRO #### [facility] [address] [place] [address] Dr. Ravin Dior UR MICRO IND INDICATED Normal [facility] Comment on above: Performed By: #### DENY KAUFFMANRO #### [facility] [address] [place] [address] Dr. Ravin Dior Urobilinogen Qn (U) 0.2 {Chandler'U}/dL Normal 0.2 - 1. 0 [facility] Comment on above: Performed By: #### DENY KAUFFMANRO #### [facility] [address] [place] [address] Dr. Ravin Dior LACTATE/LACTIC ACIDon 2021 Lactate [Moles/Vol] 1.3 mmol/L Normal 0.4-1.9 [facility] Comment on above: Performed By: #### L ACT ####[facility] [address] [address]Dr. Ravin Dior LIPASEon 05-17-2022 Lipase [Catalytic activity/Vol] 63.0 U/L Critically low 73.0-393.0 [facility] Comment on above: Performed By: #### C MP, LIPA #### [facility] [address] [place] [address] Dr. Ravin Dior PROF 14(COMP METB)on 022 Albumin [Mass/Vol] 3.4 g/dL Normal 3.4-5.0 [facility] Comment on above: Performed By: #### C MP, LIPA #### [facility] [address] [place] [address] Dr. Ravin Dior Albumin/Globulin [Mass ratio] 0.8 {ratio} Normal [facility] Comment on above: Performed By: #### C MP, LIPA #### [facility] [address] [address] [address] Ravin Dior ALP [Catalytic activity/Vol] 143 U/L Critically high 46-116 [facility] Comment on above: Performed By: #### C MP, LIPA #### [facility] [address] [address] [address] Ravin Dior ALT [Catalytic activity/Vol] 29 U/L Normal 14-59 [facility] Comment on above: Performed By: #### C MP, LIPA #### [facility] [address] [place] [address] Dr. Ravin Dior Anion gap [Moles/Vol] 7.6 mmol/L Normal [facility] Comment on above: Performed By: #### C MP, LIPA #### [facility] [address] [place] [address] Dr. Ravin Dior AST [Catalytic activity/Vol] 39 U/L Critically high 15-37 [facility] Comment on above: Performed By: #### C MP, LIPA #### [facility] [address] [place] [address] Dr. Ravin Dior Bilirubin [Mass/Vol] 0.7 mg/dL Normal 0.2-1.0 [facility] Comment on above: Performed By: #### C MP, LIPA #### [facility] [address] [place] [address] Dr. Ravin Dior Calcium [Mass/Vol] 9.1 mg/dL Normal 8.5-10.1 [facility] Comment on above: Performed By: #### C MP, LIPA #### [facility] [address] [place] [address] Dr. Ravin Dior Chloride [Moles/Vol] 102 mmol/L Normal 98-107 [facility] Comment on above: Performed By: #### C MP, LIPA #### [facility] [address] [place] [address] Dr. Ravin Dior CO2 [Moles/Vol] 31.1 mmol/L Normal 21.0-32.0 [facility] Comment on above: Performed By: #### C MP, LIPA #### [facility] [address] [place] [address] Dr. Ravin Dior Creatinine [Mass/Vol] 0.88 mg/dL Normal 0.55-1.02 The [facility] Comment on above: Performed By: #### C MP, LIPA #### [facility] [address] [address] [address] Ravin Dior EGFR-AF VENEZUELAN >60 Normal >=60 [facility] Comment on above: Performed By: #### C MP, LIPA #### [facility] [address] [place] [address] Dr. Ravin Dior EGFR-NON AF VENEZUELAN >60 Normal >=60 [facility] Comment on above: Performed By: #### C MP, LIPA #### [facility] [address] [place] [address] Dr. Ravin Dior Globulin (S) [Mass/Vol] 4.5 g/dL Normal [facility] Comment on above: Performed By: #### C MP, LIPA #### [facility] [address] [place] [address] Dr. Ravin Dior Glucose [Mass/Vol] 100 mg/dL Normal 74-106 [facility] Comment on above: Performed By: #### C MP, LIPA #### [facility] [address] [place] [address] Dr. Ravin Dior Potassium [Moles/Vol] 3.7 mmol/L Normal 3.5-5.1 The [facility] Comment on above: Performed By: #### C MP, LIPA #### [facility] [address] [place] [address] Dr. Ravin Dior Protein [Mass/Vol] 7.9 g/dL Normal 6.4-8.2 [facility] Comment on above: Performed By: #### C MP, LIPA #### [facility] [address] [place] [address] Dr. Ravin Dior Sodium [Moles/Vol] 137 mmol/L Normal 136-145 [facility] Comment on above: Performed By: #### C ROGELIO, LIPA #### [facility] [address] [place] [address] Dr. Ravin Dior Urea nitrogen [Mass/Vol] 12.0 mg/dL Normal 7.0-18.0 [facility] Comment on above: Performed By: #### C ROGELIO, LIPA #### [facility] [address] [place] [address] Dr. Ravin Dior Urea nitrogen/Creatinine [Mass ratio] 13.6 mg/mg Normal [facility] Comment on above: Performed By: #### C ROGELIO, LIPA #### [facility] [address] [place] [address] Dr. Ravin Dior URINE MICROSCOPIC ONLYon BACTERIA NONE SEEN Normal NONE SEEN [facility] Comment on above: Performed By: #### Tammy SOUTH UMICRO #### [facility] [address] [place] [address] Dr. Ravin Dior Bacteria identified Cx Nom (U) NOT INDICATED Normal [facility] Comment on above: Performed By: #### Tammy SOUTH UMICRO #### [facility] [address] [place] [address] Dr. Ravin Dior CAST NONE SEEN Normal NONE SEEN [facility] Comment on above: Performed By: #### Tammy SOUTH UMICRO #### [facility] [address] [place] [address] Dr. Ravin Dior Crystals LM Nom (Urine sed) NONE SEEN Normal NONE SEEN The [facility] Comment on above: Performed By: #### Tammy SOUTH, UMICRO #### [facility] [address] [place] [address] Dr. Ravin Dior Epithelial cells LM Ql (Urine sed) FEW Abnormal NONE SEEN /RARE The [facility] Comment on above: Performed By: #### E BRANNON, UMICRO #### [facility] [address] [place] [address] Dr. Ravin Dior MUCOUS NONE SEEN Normal NONE SEEN The [facility] Comment on above: Performed By: #### E RUR, UMICRO #### [facility] [address], [place] [address] Dr. Ravin Dior RBC NONE SEEN Abnormal 0-2 The [facility] Comment on above: Performed By: #### E RUR, UMICRO #### [facility] [address], [place] [address] Dr. Ravin Dior WBC 0-2 Abnormal NONE SEEN The [facility] Comment on above: Performed By: #### E RUR, UMICRO #### [facility] [address], [place] [address] Dr. Ravin Dior Ambulatory Clinical Summaryo n 07-24-2020 Ambulatory Clinical Summary {[id number] Normal [facility] Gastroenterology Office/Clin ic Noteon 07-24-2020 [...] course, # 28 cap(s), Refills(s) 0, Pharmacy: [facility]/pharmacy #[id number], 165, cm, 07/24/20 12:03:00 EST, Height/Length Dosing, 95.9, kg, 07/24/20 12:03:00 EST, Weight Dosing metronidazole, 250 mg = 1 tab(s), Oral, TID, X 7 day(s), # 21 tab(s), Refills(s) 0, Pharmacy: [facility]/pharmacy #[id number], 165, cm, 07/24/20 12:03:00 EST, Height/Length [...] water, # 160 cap(s), Refills(s) 1, Pharmacy: [facility]/pharmacy #[id number], 165, cm, 07/24/20 12:03:00 EST, Height/Length Dosing, 95.9, kg, 07/24/20 12:03:... Orders: pantoprazole, 40 mg = 2 tab(s), Oral, Daily, X 90 day(s), # 180 tab(s), Refills(s) 3, Pharmacy: [facility]/pharmacy #[id number], 165, cm, 07/24/20 12:03:00 EST, Height/Length Dosing, 95.9, kg, 07/24/20 12:03:00 EST, Weight Dosing Follow-up With When Contact Information Taylor Mccauley MD, Isabelle In 12 months [address], [place] [address]- Additional Instructions: Problem List/Past Medical History Ongoing [...] 12/16/2018 Exercise - Occasional exercise, 12/16/2018 Other Jjegwgfk-4-2 cups blair;y, 12/16/2018 Substance Abuse - Denies Substance Abuse, 12/16/2018 Tobacco Never (less than 100 in lifetime) Tobacco Use:., 07/24/2020 Never (less than 100 in lifetime) Tobacco Use:. Never Smokeless Tobacco Use:., 02/01/2019 [facility] Comment on above: Result Comment: Elec tronically Signed By: Taylor Mccauley MD, Isabelle\.bernie\Date and Time Signed: 07/24/20 13:13 EST Auth for Release of Medical Recordson 02-09-2020 Auth for Release of Medical Records [id number]:127 [facility] Patient Letter FTon 2019 Patient [place] [facility] [place] RADHA GUTIÉRREZ [address] [place] [address] RADHA GUTIÉRREZ 1945 Dear Radha, This is a reminder that you are due for an appointment with Dr. Garland or Dr. Mccauley. Please call [facility] at [phone] to schedule an appointment at your earliest convenience. Thank you, [facility] Vital Signs Date Time Vital Sign Value Performing Clinician Faci lity 07-27-2024 10:30-0500 Diastolic blood pressure 68 mm[Hg] [facility] 07-27-2024 10:30-0500 Systolic blood pressure 96 mm[Hg] [facility] 07-27-2024 10:13-0500 Body height 165.1 cm [facility] 07-27-2024 10:13-0500 Body mass index (BMI) [Ratio] 31.3 kg/m2 [facility] 07-27-2024 10:13-0500 Body weight 85.33 kg [facility] 07-27-2024 10:13-0500 Heart rate 85 /min [facility] 07-27-2024 10:13-0500 Respiratory rate 16 /min [facility] 07-27-2024 10:13-0500 SaO2% (BldA) [Mass fraction] 98 % [facility] Encounters Encounter Date Encounter Type Care Provider Facility Start: 09-11-2024 [facility] Start: 08-18-2024 End: 08-18-2024 ambulatory DANII SANCHEZ [facility] Start: 08-15-[address] [facility] Start: 08-14-2024 End: 08-14-[address] [facility] Start: 08-09-[address] [facility] Start: 07-27-2024 End: 07-27-2024 ambulatory [facility] Work Phone: Start: 07-27-2024 End: 07-27-2024 Patient encounter procedure [facility] Physician [facility] Neph[facility] Kevin Work Phone: Start: 07-11-[address] [facility] Start: 06-15-[address] [facility] Start: 05-22-[address] [facility] Start: 05-18-[address] [facility] Start: 05-16-[address] [facility] Start: 05-15-[address] [facility] Start: 05-04-[address] [facility] Start: 04-20-[address] [facility] Start: 03-27-[address] [facility] Start: 03-21-2024 End: 03-21-[address] [facility] Start: 03-17-[address] [facility] Start: 02-08-2024 End: 02-08-[address] [facility] Start: 01-18-[address] [facility] Start: 01-17-2024 End: 01-17-2024 ambulatory CARIDAD GARNER Not Available Start: 01-11-2024 End: 01-11-2024 ambulatory SANDIE PAGE Not Available Start: 01-05-[address] [facility] Start: 12-28-2023 End: 12-28-2023 Telephone encounter Vera Spears [facility] Start: 12-20-2023 End: 12-20-2023 ambulatory SANDIE PAGE Not Available Start: 12-16-[address] [facility] Start: 12-06-2023 End: 12-06-2023 Refill Sonia Tenorio RN [facility] Comment on above: Med Refill Start: 12-01-2023 End: 12-01-2023 ambulatory TOYA RIZO [facility] Start: 11-25-2023 ambulatory [facility] Start: 11-25-2023 Encounter for preprocedural cardiovascular examination [facility] Start: 11-24-[address] [facility] Start: 11-23-[address] [facility] Start: 11-11-2023 End: 11-11-2023 ambulatory OSWALDO GARCÍA Not Available Start: 11-01-[address] [facility] Start: 11-01-2023 End: 11-01-[address] [facility] Start: 09-10-2023 End: 09-10-2023 Refill Mac Erwin [employer] Work Phone: [facility] Comment on above: Med Refill Start: 06-11-2023 Refill Mike means MD Work Phone: [facility] Comment on above: Med Refill Start: 06-05-2023 Refill Mischell Le horne [employer] Work Phone: [facility] Comment on [...] Start: 01-30-2024 Influenza vaccination Influenza Vacc ine [facility] Start: 08-25-2023 Adult BMI Screening Adult [...] DTaP,Tdap and Td Vaccines (1 - Tdap) [facility] Start: 1963 Adult BMI Follow Up Plan Adult BMI Follow Up Plan [facility] Start: 1957 Depression Screening Depression Scre ening [facility] Start: 1945 Medicare Annual Well ness Visit Medicare Annual Wellness Visit [facility] End: 06-08-2024 Basic metabolic 2000 panel - Serum or Plasma Basic Metabolic Panel Lab Routine Essential hypertension 1 Occurrences starting 06/08/2023 until 06/08/2024 [facility]: Comment on above: 1 Occurrences starti ng 06/08/2023 until 06/08/2024 Renal function 2000 panel - Serum or Plasma [facility] Immunizations Immunization Date Immunization Notes Care Provider Fa cility 05-08-2021 influenza virus vaccine, unspecified formulation Mac Erwin [employer] Work Phone: [employer] Payers Date Payer Category Payer Medicare [employer] MEDICARE [place] [id number] 2013-Present [phone] [address] [address] [place] [address] [id number] 1959 Medicare [id number] 1945 Unknown [id number] 1945 Unknown [id number] 1945 Unknown [id number] 1945 Unknown [id number] 1945 Unknown [id number] 1945 Unknown [id number] 1945 Unknown [id number] 1945 Unknown [id number] 1945 Unknown [id number] 1945 Unknown [id number] 1945 Unknown [id number] Medicare Medicare [id number] Social History Date Type Detail Facility Start: 05-26-2022 End: 07-27-2024 Tobacco smoking status NHIS Never smoked tobacco [facility] Start: 05-26-2022 Tobacco use and exposure Smoke less tobacco non-user [facility] Start: 08-24-2022 Alcohol intake Current non-dr pulverizer feeder of alcohol (finding) [facility] Start: 07-04-2020 End: 08-24-2022 History of Social function [facility] Start: 07-04-2020 End: 08-24-2022 Tobacco use panel [facility] Housing Instability Unknown [facility] Start: 1945 Sex Assigned At Not on file [facility] Start: 07-27-2024 Sex Female (finding) [facility] Start: 1945 Sex Assigned At Female F [facility] Medical Equipment Procedure Code Equipment Code Equipment Origin al Text Equipment Identifier Dates Mesh [id number] 3d Rect Plstr Clgn Symbotex 2 Sd Comp Mfl Babsr Rpl [id number] - Sna - [id number] Start: 06-30-2022 Dev Clsr 30fr Watchman 30mm - [id number] Start: 10-28-2018 Clinical Notes 12-24-2021 to [...] Dr. Hines 2019, implantation of Biventricular ICD ([employer]) 07/05/2023, status post AV node ablation 11/01/[address] Madden. 08/18/2024 office visit: The patient was seen and evaluated in the office today. Overall, she reports feeling well. Abnormal kidney function was incidentally noted on presurgical labs for a planned back surgery, including a potassium of 5.8 and creatinine of 1.62. She has since established care with a brief writer, whom she saw for the first time [...] oral, Nightly sp (more content not included)... [facility] 03-21-2024 Note [place] Electrophysiology Consult Note Reason [...] GI bleed. She was previously seen by [facility] cardiology. She was initially seen by Dr. [...] on file Intimate Partner Violence: Unknown (07/23/2023) [place] Safety & [place] Fear of Current or [...] mg tablet Ta (more content not included)... [facility] 02-14-2024 Note This report has been cancelled. [facility] 02-11-2024 Note RCRI= 2 points Class III Risk 10.1 % 30-day risk of , [place], or cardiac arrest From a cardiac perspective pt may proceed with planned surgery, she is a moderate risk for a moderate risk orthopedic surgery. She may hold Aspirin 5-7 days prior and resume post op. Please monitor hemodynamics carefully and prevent any major fluid shifts. Toya Rizo [facility] Cardiology Available 7a-5pm via [employer] Chat Pager [phone] [facility] 12-28-2023 Miscellaneous Notes Rec'd letter from patient stating that she no longer sees [facility], uses a doctor in [place]. documented in this encounter [facility] 12-28-2023 Telephone encounter Note Rec'd letter from patient stating that she no longer sees [facility], uses a doctor in [place]. [facility] 12-06-2023 Miscellaneous Notes Last OV 06/15/22.slm T/C to pt to sched [facility] f/u appt. No answer and mailbox is full. documented in this encounter [facility] 12-06-2023 Telephone encounter Note Last OV 06/15/22.slm [facility] 12-06-2023 Telephone encounter Note T/C to pt to sched [facility] f/u appt. No answer and mailbox is full. [facility] 12-01-2023 Note Currently pt is doin g quite well s/p recent AV node ablation Remains V paced with BI-V AICd [facility] 12-01-2023 Note No anticoagulation currently [facility] Note Patient here for fol low up AV node ablation performed on 11/01/[address] Madden. She denies chest pain, SOB, palpitations, and lightheadedness/syncope. Review of Systems Musculoskeletal: Positive for arthritis and back pain. All other systems reviewed and are negative. [facility] 12-01-2023 Note [facility] CARDIOLOGY [...] GI bleed. She was previously seen by [facility] cardiology. She was initially seen by Dr. [...] Conjunctiva/sclera: Conjunctivae normal. (more content not included)... [facility] 11-01-2023 Note AV NODE ABLATION PRO CEDURE REPORT DATE OF PROCEDURE: 11/01/2023 PERFORMING PHYSICIAN: Dr. Robert Madden WOOD MILLER: TOÑA CONSENT: Patient NAME OF THE PROCEDURE: [...] GI bleed. She was previously seen by [facility] cardiology. She was initially seen by Dr. [...] Continue anticoagulation. Robert Madden MD Cardiac Electrophysiology. [facility] 11-01-2023 Note Patient: Radha mcghee Procedure Information Date/Time: 11/01/2330 Procedure: AV node ablation Location: [facility] LICENSED SURVEYOR 1 EP / [facility] (Cath) Providers: Robert Madden MD Clinical information reviewed: Tobacco Allergies Meds Med Hx Surg Hx OB Status Fam Hx Physical Exam Airway Mallampati: II TM distance: >3 FB Neck ROM: full Cardiovascular Dental Pulmonary Abdominal Anesthesia Plan ASA 2 CSE Anesthetic plan and risks discussed with patient. Use of blood products discussed with patient who. Additional Equipment Requests [facility] 11-01-2023 Note [place] Electrophysiology Consult Note Reason for visit: Afib [...] GI bleed. She was previously seen by [facility] cardiology. She was initially seen by Dr. [...] is a year. She was seen by [facility] in January 25, 2023 for A-fib [...] on file Intimate Partner Violence: Unknown (07/23/2023) [place] Safety [place] Fear of Current or [...] 50 mg tab (more content not included)... [facility] 09-10-2023 Miscellaneous Notes Please sign and route if you agree. Thank you HODAN 06/22/22 Pt needs annual appt schedule please, thank you. Letter mailed. LMOM for the patient to call and schedule their next appointment with [facility]. documented in this encounter [facility] 09-10-2023 Telephone encounter Note Please sign and route if you agree. Thank you HODAN 06/22/22 Pt needs annual appt schedule please, thank you. Letter mailed. [facility] 09-10-2023 Telephone encounter Note LMOM for the patient to call and schedule their next appointment with [facility]. [facility] 06-11-2023 Miscellaneous Notes Last OV 06/15/22, sent to [facility] front desk lead for yearly visit to be scheduled. CMP 06/22/22. BMP ordered from refill encounter 06/08/23. Letter has been mailed, but will attempt to send letter via as last login was 05/07/23. documented in this encounter [facility] 06-11-2023 Telephone encounter Note Last OV 06/15/22, sent to [facility] front desk lead for yearly visit to be scheduled. CMP 06/22/22. BMP ordered from refill encounter 06/08/23. Letter has been mailed, but will attempt to send letter via as last login was 05/07/23. [facility] 07-23-2022 Note PAIN MANAGEMENT CONS ULTATION [...] months' time or sooner if needed. The [facility] 03-26-2022 Note CONSULTATION CONSULTATION DATE: 03/26/2022 [...] agrees with the plan of care. The [facility] 12-24-2021 Note CONSULTATION PROCEDURE DATE: 12/24/2021 [...] the procedure well with no complications. The [facility] 12-24-2021 Note CONSULTATION CONSULTATION DATE: 12/24/2021 [...] three months' time, unless otherwise indicated. The [facility] Evaluation note Diagnosis Essential hypertension- Primary Unspecified essential hypertension documented in this encounter [facility] Diagnosis Chronic systolic CHF (congestive heart failure) ([facility]) documented [facility] this encounter [facility] Diagnosis Onset Date Resolution Status Admit Date Atrial fibrillation acute Febru sahil 2024 10:10am Chronic systolic (congestive ) heart failure acute July 27, 10:10am CKD (chronic kidney disease) stage 3, GFR 30-59 ml/min acute Februa ry 2024 10:10am Hyperlipidemia acute July 022024 10:10am Hypertensive chronic kidney disease with stage 1 through stage 4 chronic ki acute July 10:10am Iron deficiency acute July 27, 2024 10:10am [facility] Work Phone: InstructionsNot on filedocumented in this encounter [facility] on filedocumented in this encounter [facility] System[facility]ructions[facility] on filedocumented in this encounter [facility] filedocumented in this encounter [facility] [...] DATE CREATED AUTHOR 07/25/2020 [facility] DATE CREATED AUTHOR AUTHOR'S ORGANIZ ATION 10/12/2022 [facility] DATE CREATED AUTHOR AUTHOR'S ORGANIZ ATION 01/17/2024 [facility] EPIC DATE CREATED AUTHOR AUTHOR'S ORGANIZ ATION 09/17/2024 [facility] Reason for Visit (unrecogniz ed section and content) Reason Comments Med Refill Reason Onset Date Comments Med Refill 12/06/2023 Care Teams (unrecognized sec tion and content) Garage Laborer Relationship Specialty Start Date End Date Heaven Staley APRN-CNP [address] [facility], [place] [id number] PCP - General Family Medicine 10/30/21 Garage Laborer Relationship Specialty Start Date End Date Heaven Staley APRN-CNP [address] [facility], [place] [address] PCP - General Family Medicine 10/30/21 Garage Laborer Relationship Specialty Start Date End Date Heaven Staley APRN-BOX CUTTER [address] [facility], [place] [address] PCP - General Family Medicine 10/30/21 Garage Laborer Relationship Specialty Start Date End Date Heaven Staley APRN-CNP [address] [facility] [facility], [place] [address] PCP - General Family Medicine 10/30/21 Team Status: Active Member Role Status Dates JAZLYN RichC Primary Care Provider Active Team Status: Inactive Member Role Status Dates Juliana Landeros MD Attending Provider Active Start : July 27, 2024 End: July 27, 2024 WANDA Rich Primary Care Pr rafaeler, Referring Provider Active Start: July 27, 2024 [...] BE BASED ON THE PRIMARY CLINICAL RECORDS. [employer] provides no warranty or guarantee of the accuracy or completeness of information in this document.
[2024-10-09 09:02] LABS: Hematocrit 35.4 % (36.0-48.0); Hemoglobin 11.1 g/dL (12.0-16.0); Mean Corpuscular HGB Conc 31.4 g/dL (29.9-35.2); Mean Corpuscular Hemoglobin 27.8 pg (26.7-34.0); Mean Corpuscular Volume 88.5 fL (81.0-99.0); Platelet Count 272 10^3/uL (150-450); Red Cell Distribution Width 15.2 % (11.0-15.0); White Blood Count 10.1 10^3/uL (4.0-11.0)
[2024-10-09 09:13] LABS: Creatinine Urine Random 82.53 mg/dL (20.00-300.00); Protein Creatinine Ratio Urine 0.19; Total Protein Urine Random 15.7 mg/dL (<=11.9)
[2024-10-09 09:15] LABS: Albumin Level 3.2 g/dL (3.4-5.0); Anion Gap 10.2; BUN Creatinine Ratio 22.6; Calcium 8.9 mg/dL (8.5-10.1); Carbon Dioxide 28.4 mmol/L (21.0-32.0); Chloride 105 mmol/L (98-107); Estimated GFR (African America 47 (>=60 mL/min/1.73m^2); Estimated GFR (Non-African Ame 38 (>=60 mL/min/1.73m^2); Glucose 85 mg/dL (74-106); Magnesium 2.1 mg/dL (1.8-2.4); Phosphorus 3.9 mg/dL (2.6-4.7); Potassium 4.6 mmol/L (3.5-5.1); Sodium 139 mmol/L (136-145); Uric Acid 6.1 mg/dL (2.6-6.0)
[2024-10-09 09:28] LABS: Bilirubin Urine NEGATIVE (NEGATIVE); Blood Urine NEGATIVE (NEGATIVE); Clarity Urine CLEAR (CLEAR); Color Urine YELLOW (YELLOW); Glucose Urine UA 500 mg/dL (NEGATIVE); Ketones Urine NEGATIVE (NEGATIVE); Leukocyte Esterase Urine NEGATIVE (NEGATIVE); Nitrite Urine NEGATIVE (NEGATIVE); Protein Urine NEGATIVE (NEG/TRACE); Specific Gravity Urine 1.015 (1.005-1.025); Urobilinogen Urine 0.2 EU/dL (0.2-1.0)
[2024-10-09 09:38] LABS: Percent Iron Saturation 8.8 %
[2024-10-09 09:42] LABS: Bacteria Urine NONE SEEN #/HPF (NONE SEEN); Cast Seen? NONE SEEN #/LPF (NONE SEEN); Crystals Seen? None Seen #/HPF (None Seen); Mucus Urine NONE SEEN (NONE SEEN); RBC Urine 0-2 #/HPF (0-2); Squamous Epithelial Cell Urine RARE #/LPF (NONE/RARE); WBC Urine 0-2 #/HPF (NONE SEEN)
[2024-10-10 12:08] LABS: PTH, Intact 76 pg/mL (15-65)
== END 2024-10-09 08:27 | disposition home or self-care (01) ==
LOC: LAB 08:36
PROVIDERS: PCP Nurse Practitioner Family; Visit Provider Internal Medicine
DX: E78.5 Hyperlipidemia, unspecified (principal); I50.22 Chronic systolic (congestive) heart failure; I48.91 Unspecified atrial fibrillation; I12.9 Hypertensive chronic kidney disease with stage 1 through stage 4 chronic kidney disease, or unspecified chronic kidney disease; N18.30 Chronic kidney disease, stage 3 unspecified; E61.1 Iron deficiency
CPT/HCPCS: 36415; 80069; 81001; 82306; 82570; 82728; 83540; 83550; 83735; 83970; 84156; 84550; 85027

== ENCOUNTER 2024-11-09 09:13 | Outpatient (OUT) | payer MEDICARE, SELFPAY ==
--- NOTE | 2024-11-09 09:53 | P.CN_ITS ---
Consult Note: HPI Data of Consult Patient: known to practice within the last 3 years Requesting Physician: Carmen Ramey NP Primary Care Provider: FIDELINA STALEY Consult Narrative Reason for consult: f/u Narrative: Radha Cornell a pleasant 79 year old female presents for evaluation and management of chronic low back pain and neck pain. Pain today 4/10 ache increased with all activity and decreased with lying down and heat. Patient has found moderate benefit to current medication regimen. January 2024 underwent L3-S1 fusion and decompression at L3,4,[address] Ramírez with significant improvement ongoing. Patient continues to have moderate to severe low back and right leg pain impacting sleep, social life, ADLS, and ability to stand and walk. RENATO 52%. denies falls or injury since last visit. continues to utilize cane. since last visit has noted increased neck and radicular pain to RUE. cc:: CC: Carmen Ramey NP Review of Systems ROS Status of ROS 10 or more systems reviewed and unremark able except as noted in history and below [facility] Medical History Rectocele ?N81.6 - Rectocele (ICD-10) Bruising ?T14.8XXA - Other injury of unspecified body region, initial encounter (ICD- 10) Anemia ?D64.9 - Anemia, unspecified (ICD-10) Upper back pain ?M54.9 - Dorsalgia, unspecified (ICD-10) Neck pain ?M54.2 - Cervicalgia (ICD-10) Low back pain ?M54.50 - Low back pain, unspecified (ICD-10) Fibromyalgia ?M79.7 - Fibromyalgia (ICD-10) Heartburn ?R12 - Heartburn (ICD-10) Acid reflux ?K21.9 - Gastro-esophageal reflux disease without esophagitis (ICD-10) Sleep apnea ?G47.30 - Sleep apnea, unspecified (ICD-10) Atrial fibrillation ?I48.91 - Unspecified atrial fibrillation (ICD-10) Surgical History S/P lumbar spine operation ?Z98.890 - Other specified postprocedural states (ICD-10) S/P shoulder surgery ?Z98.890 - Other specified postprocedural states (ICD-10) History of bariatric surgery ?Z98.84 - Bariatric surgery status (ICD-10) H/O heart surgery ?Z98.890 - Other specified postprocedural states (ICD-10) H/O: hysterectomy ?Z90.710 - Acquired absence of both cervix and uterus (ICD-10) Hx of cholecystectomy ?Z90.49 - Acquired absence of other specified parts of digestive tract (ICD- 10) Meds Home Medications and Allergies Home Medications ?Medication ?Instructions ?Recorded ?Confirmed ?Type cholecalciferol (vitamin D3) 125 5,000 unit PO DAILY 0 11/03/22 12/14/23 History mcg (5,000 unit) capsule furosemide 40 mg tablet (Lasix) 40 mg PO BID 11/03/22 12/14/23 History krill 2 cap PO DAILY 11/03/2211/28 History bqi-jv4-ifb-kdy-mg6-qya-astax 1,500 mg-165 mg-67.5 mg capsule losartan 25 mg tablet 25 mg PO DAILY 11/03/2211/28 History metoprolol succinate 25 mg 12.5 mg PO BID 11/03/22 History tablet,extended release 24 hr multivitamin 1 tab PO DAILY 11/03/2211/28 History pantoprazole 40 mg tablet,delayed 40 mg PO BID 3 12/14/23 History release (Protonix) pramipexole 1 mg tablet (Mirapex) 1 mg PO DAILY 12/14/23 History trazodone 50 mg tablet 50 mg PO DAILY 11/03/2211/28 History vitamin B complex 1 cap PO DAILY 11/03/2211/28 History naloxone 4 mg/actuation nasal 4 mg intranasal Q3M PRN opioid 02/11/23 12/14/23 Rx spray (Narcan) overdose #2 ea baclofen 10 mg tablet 10 mg PO BID PRN muscle spas m #60 07/28/23 12/14/23 Rx tabs zonisamide 50 mg capsule 50 mg PO DAILY #30 caps 11/29 10/21 Rx oxycodone-acetaminophen 5 mg-325 See Rx Instructions . Route 09/07/24 Rx mg tablet (Percocet) .COMPLEX PRN pain #75 tabs oxycodone-acetaminophen 5 mg-325 1 tab PO .BID-TID PRN pain #75 tabs 10/11/24 Rx mg tablet (Percocet) Allergies Allergy/AdvReac Type Severity Reaction Status Date / Time codeine Allergy Mild Hives Verified 12/14/23 10:23 pregabalin (From Lyrica) Allergy Shakiness Verified 12/14/23 10:23 Exam Constitutional Documenting provider has reviewed patient's vital signs: yes Common normals: no apparent distress, oriented x3, healthy appearing, alert and well nourished General appearance: cooperative [facility] Common normals: normocephalic, hearing grossly normal bilaterally and moist oral mucous membranes Head and scalp: normocephalic Eye Common normals: PERRL Pupil: PERRL Neck & C-Spine Common normals: full ROM General: normal visual inspection Cervical spine: cervical ROM abnormal, pain with cervical ROM and cervical spine tenderness Other: positive spurlings, decreased sensation right C5,6,7 strength 4/5 in RUE and 5/5 in LUE Chest Common normals: inspection of chest normal Respiratory Common normals: normal respiratory effort, no retractions and no use of accessory muscles Back & Pelvis Lumbar spine/lower back: ROM limited, pain with ROM and straight leg raise positive right; no lumbar spinal tenderness and straight leg raise negative left Sacroiliac joints: SI joint(s) abnormal Other: right sij positive angelo(patricks), gaenslens, thigh thrust, compression test decreased sensation right L4,5,S1 strength 4/5 in RLE and 5/5 in LLE Neuro Common normals: oriented x3 Sensorium/orientation: alert Psych Common normals: mental status grossly normal, thought process normal, cooperative, affect normal, speech normal and activity/motor behavior normal Speech: normal speech Thought process: normal thought process Results Additional Findings Additional findings: If on a controlled substance or opioids, I have checked an [place] report on this patient and there are no aberrancies noted in the prescribing history.??If on a controlled substance or opioid a drug screen was completed and reviewed within the last year, and if there has not been a drug screen completed we ordered one today to monitor higher risk, state monitored pain medication use. As part of providing excellent, safe, comprehensive care, the following was completed at our patient's visit: 1. A medication reconciliation and review to ensure accurate knowledge of current/active medications, including asking our patients to inform us about any [id number] medications or herbal remedies/nutritional supplements/alternative remedies. 2. A review to specifically ensure our patients have had annual screening for screening for depression, screening for tobacco use, and screening for unhealthy alcohol use. For concerning screenings had a discussion with the patient, provided patient education, and recommended follow-up with primary care provider when appropriate. If patient noted with a risk of falling, they received education on strength, gait, and balance training to prevent future risk of falling. Portions of this note may have been carried over from the previous visit and updated as appropriate. Please note this office utilizes paper charting in addition to the electronic medical record. A list of current medications, vitals, and PMH is available there as the clinical staff outside of myself do not have access to [employer] charting during the clinic day operations. As part of providing quality comprehensive care the current medications, vitals, and PMH were reviewed in the paper chart. Assessment and Plan Assessment and Plan (1) Lumbar stenosis with neurogenic claudication: Assessment and Plan: The patient has had over 3 months of moderate to severe low back and RLE pain with functional impairment and inadequate response to conservative care including NSAIDS (unless there are contraindication such as concurrent blood thinners), multiple oral or topical pain medications, and home exercise program/physical therapy.? Patient has completed >6 weeks of guided home exercise program and/or formal physical therapy program without relief of their symptoms.? We discussed the risks and benefits of the procedure with the patient, and we are NOT planning on using sedation as outlined in the guidelines from Medicare unless there is a documented reason that sedation would be strongly recommended.?? ?The procedure will be completed with fluoroscopic guidance.? (2) Cervical radiculopathy: (3) Failed back syndrome: (4) Status post lumbar spinal fusion: (5) Lumbar radiculopathy: (6) Chronic prescription opiate use: (7) Muscle spasm: (8) Lumbar spondylosis: Plan update cervical xray to assess chronic pain and radiculopathy, consider cervical CT if pain persists right L4-5 L5-S1 TFESI under fluoroscopy for lumbar stenosis with NC, risks vs benefits reviewed continue HEP as tolerated continue current medications, risks vs benefits reviewed f/u 2 weeks after TFESI, consider right SIJ injection if symptoms persist
== END 2024-11-09 09:14 | disposition home or self-care (01) ==
PROVIDERS: PCP Nurse Practitioner Family; Visit Provider Nurse Practitioner
DX: M48.062 Spinal stenosis, lumbar region with neurogenic claudication (principal); M54.12 Radiculopathy, cervical region; M96.1 Postlaminectomy syndrome, not elsewhere classified; M43.26 Fusion of spine, lumbar region; M54.16 Radiculopathy, lumbar region; Z79.891 Long term (current) use of opiate analgesic; M47.816 Spondylosis without myelopathy or radiculopathy, lumbar region; M62.838 Other muscle spasm
CPT/HCPCS: G0463

== ENCOUNTER 2024-11-13 09:26 | Outpatient (OUT) | payer MEDICARE, SELFPAY ==
--- NOTE | 2024-11-13 09:43 | XR_ITS ---
The [address] [address] Patient Name: SAUL GUTIÉRREZ MRN: [id number] date: 1945 Sex: F Assigned Patient Location: [facility] Current Patient Location: [facility] Accession/Order Number: [id number] Exam Date: 11/13/2024 10:22 Report Date: 11/13/2024 10:27 At the request of: KURTIS ESPOSITO NP Procedure: XR cervical spine 5V CERVICAL SPINE - 5 views: CLINICAL HISTORY: Right neck pain and arm numbness AP, lateral, both oblique and odontoid views were obtained. There is osteopenia. There is straightening of the normal cervical curvature. No acute compression fractures are seen. There is slight anterolisthesis of C2 on C3 and 3 mm of anterolisthesis of C3 on C4. Mild disc space narrowing is present at C3-4, moderate at C4-5 and severe at C5-6 and C6-7. There is endplate sclerosis at C5-6. Endplate spurring is present throughout and there is also facet disease. There is potential moderate bony foraminal encroachment at C3-4 and mild to moderate at C4-5 and C5-6 on the left. On the right, there is moderate bony foraminal encroachment at C5-6. The atlantoaxial relationship is maintained. There is no prevertebral soft tissue swelling. XR/XR cervical spine 5V IMPRESSION: OSTEOPENIA. LOSS OF NORMAL CERVICAL CURVATURE AND MULTILEVEL DEGENERATIVE CHANGES. Impression dictated by: Adelaida Davis M.D. 11/13/2024 10:27 AM Dictation Location: [place] [address] Electronically authenticated by: [id number] Y Date: 11/13/2024 10:27
--- OUTSIDE RECORDS SUMMARY | 2024-11-13 09:51 | XMS_ITS | CCD ---
Author Organization [facility] Care Team Providers Care Bobcat Operator Name Role Phone JOHNSON ., DR JAYLON Ruelas Admitting Unavailable ORNELAS ., DR JAYLON Ruelas Attending Unavailable LUÍS, HEAVEN Primary Care Unavailable ORNELAS ., DR JAYLON Ruelas Consulting Unavailable MICHELINE MOLINA Consulting Unavailable ORNELAS ., DR JAYLON Ruelas Admitting Unavailable ORNELAS ., DR JAYLON Ruelas Attending Unavailable [facility] Primary Care Unavailable RODRIGUEZ ., SABRINA Consulting Unavailable ORNELAS ., DR JAYLON Ruelas Admitting Unavailable ORNELAS ., DR JAYLON Ruelas Attending Unavailable [facility] Primary Care Unavailable RODRIGUEZ ., SABRINA Consulting Unavailable [facility] Primary Care Unavailable LAKSHMIPATHY ., NARENDRANATH Admitting Charity vailable LAKSHMIPATHY ., NARENDRANATH Attending Charity vailable LAKSHMIPATHY ., NARENDRANATH Consulting Charity vailable LAKSHMIPATHY ., NARENDRANATH Admitting Charity vailable LAKSHMIPATHY ., NARENDRANATH Attending Charity vailable [facility], [facility] Primary Care Unavailable LUÍS, HEAVEN Admitting Unavailable HEAVEN STALEY Attending Unavailable [facility] Care Unavailable DR OSWALDO VALENZUELA Consulting Unavailable HEAVEN STALEY Consulting Unavailable LUÍS, HEAVEN Primary Care Unavailable DAREK .KEILY Admitting Unavailable DAREK ., KEILY Attending Unavailable DAREK ., KEILY Consulting Unavailable KELSIE DEL ANGEL Consulting Unavailable OSWALDO GARCÍA Attending Unavailable SANDIE PAGE Attending Unavailable HEAVEN STALEY Referring Unavailable SANDIE PAGE Attending Unavailable CARIDAD GARNER Attending Unavailable Heaven Steven Primary Care Provider SHAYY ORTIZ Referring Unavailable ROBERT MADDEN Admitting Unavailable ROBERT MADDEN Attending Unavailable ROBERT MADDEN Referring Unavailable ROBERT MADDEN Referring Unavailable NAVID, ORBERT Referring Unavailable NAVID, ROBERT Referring Unavailable NAVID, ROBERT Referring Unavailable NAVID, ROBERT Referring Unavailable NAVID, ROBERT Referring Unavailable NAVID, ROBERT Referring Unavailable NAVID, ROBERT Referring Unavailable NAVID, ROBERT Referring Unavailable NAVID, ROBERT Referring Unavailable DANIEL, DANII Attending Unavailable DARRIUS, TOYA Attending Unavailable NAVID, ROBERT Referring Unavailable NAVID, [...] Allergy Type Date of Onset Reaction(s) Facility (4 sources) Codeine; Translations: [CODEINE] Drug Allergy 06-06-2014 [facility] (5 sources) Codeine [facility] Lisinopril; Translations: [LISINOPRIL] [facility] pregabalin; Translations: [PREGABALIN] Drug Allergy 12-01-2023 [facility] Medications Current Medications Medication Drug Class(es) Dates Sig (Normalized) Sig (Original) acetaminophen 325 mg / oxyCODONE hydrochloride 5 mg oral tablet (7 sources) Opioid Agonist Start: 07-27-2024 take 1 tablet by mouth every eight hours as needed Oxycodone-Acetami nophen (Percocet) 5-325 mg tablet Active 1 TAB PO Every 8 hours as needed July 27, 2024 1:00am take 1 tablet by amanda th every [...] 0 Active baclofen 10 mg oral tablet (2 sources) gamma-Aminobutyric Acid-ergic Agonist Start: 07-27-2024 take 1 tablet by mouth once daily at bedtime Baclofen 10 mg tablet Active 10 MG PO Daily at bedtime July 27, 2024 1:00am Calcium Carbonate (5 sources) calcium carbonate (CALCIUM 500 ORAL) Take by mouth daily. Active calcium carbonat e (CALCIUM 500 ORAL) Take by mouth daily. 0 Active Calcium Carbonate 260 mg calcium (648 mg) tablet (2 sources) Start: 07-27-2024 take 1 tablet by mouth once daily Calcium Carbonate 260 mg calcium (648 mg) tablet Active 500 MG PO Daily July 27, 2024 1:00am Start: 07-27-2024 take 1 tablet by amanda th once daily Calcium Carbonate 260 mg calcium (648 mg) tablet Active 500 MG PO Daily July 27, 2024 12:00am cholecalciferol 0.025 mg oral capsule (7 sources) Vitamin D Start: 07-27-2024 take 1 capsule by mouth once daily Cholecalciferol (Vitamin D3) 25 mcg (1,000 unit) capsule Active 25 MCG PO Daily July 27, 2024 1:00am cholecalciferol, vitamin D3, 5,000 units tablet 1 tablet (5,000 Units total) in the morning. Active diclofenac sodium 50 mg delayed release oral tablet (5 sources) Nonsteroidal Anti-inflammatory Drug take 1 tablet by mouth in the morning diclofenac (VOLTAREN) 50 mg EC tablet Take 1 tablet (50 mg total) by mouth in the morning. Active ferrous sulfate 325 mg delayed release oral tablet (9 sources) Start: 10-20-19 take 1 tablet by mouth once daily Ferrous Sulfate 325 mg (65 mg iron) tablet,delayed release (DR/EC) Active 325 MG PO Daily October 19, 2024 12:00am Start: 10-19-2024 take 1 tablet by amanda th every other day Ferrous Sulfate 325 mg (65 mg iron) tablet Active 325 MG PO .QOD 45 October 19, 2024 12:00am Start: 07-27-2024 End: 10-19-2024 Ferrous Sulfate 325 mg (65 m g iron)/5 mL solution Discontinued MG PO July 27, 2024 1:00am October 19, 2024 1:18pm Start: 07-27-2024 Ferrous Sulfat e 325 mg (65 mg iron)/5 mL solution [...] 0 Active furosemide 40 mg oral tablet (8 sources) Loop Diuretic Start: 07-27-2024 take 1 tablet by mouth once daily Furosemide 40 mg tablet Active 40 MG PO Daily July 27, 2024 1:00am Start: 03-18-2023 End: 06-08-2023 take 1 tablet by mouth once daily furosemide (LASIX) 40 mg tablet Take 1 tablet (40 mg total) by mouth daily. PT NEEDS APPT AND LABS FOR FURTHER REFILLS 30 tablet 1 06/08/2023 Active lactobacillus acidophilus [id number] unt oral capsule (5 sources) take 1 tablet by mouth once daily Lactobacillus acidophilus 10 billion cell capsule Take 1 tablet by mouth daily. Active losartan potassium 25 mg oral tablet (2 sources) Angiotensin 2 Receptor Minnie Start: 07-27-19 25 take 1 tablet by mouth once daily Losartan 25 mg tablet Active 25 MG PO Daily July 27, 2024 1:00am 24 hr metoprolol succinate 50 mg extended release oral tablet (9 sources) beta-Adrenergic Minnie Start: 07-27-19 25 take 1 tablet by mouth once daily Metoprolol Succinate 50 mg tablet extended release 24 hr Active 50 MG PO Daily July 27, 2024 1:00am Start: 09-10-2023 take 1 tablet by amanda [...] tablet 12/06/2023 Active Multivitamin (Daily Multi-Vitamin) tablet (2 sources) Start: 07-27-2024 take 1 tablet by mouth once daily Multivitamin (Daily Multi-Vitamin) tablet Active 1 TAB PO Daily July 27, 2024 1:00am Start: 07-27-2024 take 1 tablet by amanda th once daily Multivitamin (Daily Multi-Vitamin) tablet Active 1 TAB PO Daily July 27, 2024 12:00am pantoprazole 40 mg delayed release oral tablet (7 sources) Proton Pump Inhibitor Start: 07-27-2024 take 1 tablet by mouth once daily Pantoprazole (Protonix) 40 mg tablet,delayed release (DR/EC) Active 40 MG PO Daily July 27, 2024 1:00am take 1 dose by mouth in the morn ing pantoprazole (PROTONIX) [address] for susp in packet Take 1 packet (40 mg total) by mouth in the morning. Active 24 hr pramipexole dihydrochloride 1.5 mg extended release oral tablet (7 sources) Nonergot Dopamine Agonist Start: 07-27-2024 take 1 tablet by mouth once daily at bedtime Pramipexole (Mirapex Er) 1.5 mg tablet extended release 24 hr Active 1.5 MG PO Daily at bedtime July 27, 2024 1:00am take 1.5 tablets by mouth in the morning pramipexole (MIRAPEX) 1 mg tablet Take 1.5 tablets (1.5 mg total) by mouth in the morning. Active pregabalin 50 mg oral capsule (5 sources) Start: 04-27-2022 pregabalin (LYRICA) 50 mg capsule 1 capsule (50 mg total) once daily at bedtime. 04/27/2022 Active spironolactone 25 mg oral tablet (8 sources) Aldosterone Antagonist Start: 07-27-2024 take 1 tablet by mouth once daily Spironolactone 25 mg tablet Active 25 MG PO Daily July 27, 2024 1:00am Start: 06-15-2022 End: 06-15-2023 take 1 tablet by mouth in the morning spironolactone (ALDACTONE) 25 mg tablet Indications: Chronic systolic CHF (congestive heart failure) ([facility]) Take 1 tablet (25 mg total) by mouth in the morning. Need labs and appt for more refills. 90 tablet 06/15/2023 Active sucralfate 1000 mg oral tablet (7 sources) Aluminum Complex Start: 07-27-2024 take 1 tablet by mouth four times daily as needed Sucralfate (Carafate) 1 gram tablet Active 1 GM PO Four times daily as needed July 27, 2024 1:00am take 1 tablet by mouth at bedtim e sucralfate (CARAFATE) 1 gram tablet Take 1 tablet (1 g total) by mouth in the morning and 1 tablet (1 g total) before bedtime. Active traZODone hydrochloride 150 mg oral tablet (7 sources) Serotonin Reuptake Inhibitor Start: 07-27-2024 take 1 tablet by mouth once daily at bedtime as needed Trazodone 150 mg tablet Active 150 MG PO Daily at bedtime as needed July 27, 2024 1:00am take 3 tablets by mo uth once daily as needed traZODone (DESYREL) 50 mg tablet Take 3 tablets (150 mg total) by mouth nightly as needed. Active ubidecarenone 100 mg oral capsule (7 sources) Start: 07-27-2024 take 10 capsules by mouth once daily Coenzyme Q10 100 mg capsule Active 100 MG PO Daily July 27, 2024 1:00am take 1 capsule by mo uth once [...] Active vitamin k1 5 mg oral tablet (2 sources) Warfarin Reversal Agent, Vitamin K Start: 07-27-2024 take 1 tablet by mouth once daily Phytonadione (Vitamin K1) 5 mg tablet Active 5 MG PO Daily July 27, 2024 1:00am Problems Active Problems Problem Classification Problem Date Documented Date Episodic/Chronic Anxiety disorders (5 sources) Anxiety; Translations: [Anxiety disorder, unspecified] Onset: 06-05-2022 06-05-2022 Chronic Cardiac dysrhythmias (20 sources) Unspecified atrial fibrillation; Translations: [Persistent atrial fibrillation] Onset: 06-06-2014 Resolved: 10-11-2020 10-11-2020 Chronic Chronic kidney disease (4 sources) Chronic kidney disease stage 3; Translations: [Stage 3 chronic kidney disease] 07-27-2024 Chronic Conduction disorders (14 sources) Left bundle branch block; Translations: [Left bundle-branch block, unspecified] Onset: 07-13-2014 Resolved: 02-24-2018 10-11-2020 Chronic Congestive heart failure; nonhypertensive (17 sources) Chronic systolic heart failure; Translations: [Chronic systolic (congestive) heart failure] Onset: 08-25-2018 10-11-2020 Chronic Coronary atherosclerosis and other heart disease (2 sources) Atherosclerotic heart disease of [place] coronary artery without angina pectoris; Translations: [Atherosclerotic heart disease of [place] coronary artery without angina pectoris] Onset: 08-18-2024 Chronic Deficiency and other anemia (1 source) Anemia, unspecified; Translations: [ANEMIA UNSPECIFIED] Onset: 09-26-2022 Episodic Diabetes mellitus without complication (1 source) Other abnormal glucose; Translations: [OTHER ABNORMAL GLUCOSE] Onset: 09-26-2022 Episodic Disorders of lipid metabolism (6 sources) Hyperlipidemia; Translations: [Hyperlipidemia, unspecified] Onset: 08-18-2024 07-27-2024 Chronic Essential hypertension (12 sources) Essential (primary) hypertension; Translations: [Essential hypertension] Onset: 02-18-2022 Chronic Hypertension with complications and secondary hypertension (4 sources) Chronic kidney disease due to hypertension; Translations: [Hypertensive chronic kidney disease with stage 1 through stage 4 chronic kidney disease, or unspecified chronic kidney disease] 07-27-2024 Chronic Nutritional deficiencies (4 sources) Iron deficiency; Translations: [Iron deficiency] 07-27-2024 [...] 10-11-2020 Episodic Other aftercare (1 source) Other residential (current) drug therapy; Translations: [OTH HALF-WAY CURRENT [...] Test Name Value Interpretation Reference Range Facility Erythrocyte distribution wid th Auto (RBC) [Ratio]on 10-09-2024 Erythrocyte distribution width (RBC) [Ratio] Erythrocyte distribution width [Ratio] by Automated count High 11.0-15.0 [facility] Estimated glomerular filtrat ion rate (GFR) non- Americanon 10-09-2024 GFR/1.73 sq M.predicted among non-blacks MDRD (S/P/Bld) [Vol rate/Area] Estimated glomerular filtration rate (GFR) non- Low >=60 mL/min/1.73m 2 [facility] Hematocrit Auto (Bld) [Volum e fraction]on 10-09-2024 Hematocrit (Bld) [Volume fraction] Hematocrit [Volume Fraction] of Blood by Automated count Low 36.0-48.0 [facility] Hemoglobin [Mass/volume] in Bloodon 10-09-2024 Hemoglobin (Bld) [Mass/Vol] Hemoglobin [Mass/volume] in Blood Low 12.0-16.0 [facility] Iron binding capacity [Mass/ volume] in Serum or Plasmaon 10-09-2024 Iron binding capacity [Mass/Vol] Iron binding capacity [Mass/volume] in Serum or Plasma 250.0-450.0 [facility] Iron saturation [Mass Fracti on] in Serum or Plasmaon 10-09-2024 Iron saturation [Mass fraction] Iron saturation [Mass Fraction] in Serum or Plasma [facility] Laboratory - Chemistry and C hemistry - challengeon 10-09-2024 Albumin [Mass/Vol] 3.2 g/dL Low 3.4-5.0 [facility] Calcium [Mass/Vol] 8.9 mg/dL 8.5-10.1 [facility] Chloride [Moles/Vol] 105 mmol/L 98-107 [facility] CO2 [Moles/Vol] 28.4 mmol/L 21.0-32.[address] [facility] Creatinine [Mass/Vol] 1.33 mg/dL High 0.55-1.02 [facility] Ferritin [Mass/Vol] 13.0 ng/mL 8.0-252.0 [facility] GFR/1.73 sq M.predicted MDRD (S/P/Bld) [Vol rate/Area] 47 mL/min/{1.73_m2} Low >=60 mL/min/1.73m 2 [facility] Glucose [Mass/Vol] 85 mg/dL 74-106 [facility] Iron [Mass/Vol] 33.0 ug/dL Low 50.0-170.0 [facility] Magnesium [Mass/Vol] 2.1 mg/dL 1.8-2.4 [facility] Potassium [Moles/Vol] 4.6 mmol/L 3.5-5.1 [facility] Sodium [Moles/Vol] 139 mmol/L 136-145 [facility] Urate [Mass/Vol] 6.1 mg/dL High 2.6-6.[address] [facility] Urea nitrogen [Mass/Vol] 30.0 mg/dL High 7.0-18.0 [facility] Urea nitrogen/Creatinine [Mass ratio] 22.6 mg/mg [facility] Laboratory - Urinalysison Protein (U) [Mass/Vol] 15.7 mg/dL High <=11.9 [facility] Leukocytes [#/volume] correc halie for nucleated erythrocytes in Blood by Automated counon 10-09-2024 WBC corrected for nucl RBC Auto (Bld) [#/Vol] Leukocytes [#/volume] corrected for nucleated erythrocytes in Blood by Automated coun 4.0-11.0 [facility] MCH Auto (RBC) [Entitic mass ]on 10-09-2024 MCH (RBC) [Entitic mass] MCH [Entitic mass] by Automated count 26.7-34.0 [facility] MCHC Auto (RBC) [Mass/Vol]on 10-09-2024 MCHC (RBC) [Mass/Vol] MCHC [Mass/volume] by Automated count 29.9-35.2 [facility] MCV Auto (RBC) [Entitic vol] on 10-09-2024 MCV (RBC) [Entitic vol] MCV [Entitic volume] by Automated count 81.0-99.0 [facility] No Panel Informationon 10-09 25-Hydroxy Vitamin D Total 46.5 ng/mL [facility] Comment on above: <20 ng/mL Vit D defi cient20-<30 ng/mL Vit D [id number] ng/mL Vit D sufficient>100 ng/mL Potential Toxicity Parathyroid Hormone (Intact) 76 pg/mL Abnormal 15-65 [facility] Comment on above: Performed at: [address] [id number] Director: Ra Gonzalez PhD, Phone: [phone] Phosphorus Level 3.9 mg/dL 2.6-4.[address] [facility] Urine Random Creatinine 82.53 mg/dL 20.00-300.00 [facility] Platelet mean volume Auto (B ld) [Entitic vol]on 10-09-2024 Platelet mean volume (Bld) [Entitic vol] Platelet mean volume [Entitic volume] in Blood by Automated count 9.5-13.5 [facility] Platelets Auto (Bld) [#/Vol] on 10-09-2024 Platelets (Bld) [#/Vol] Platelets [#/volume] in Blood by Automated count 150-450 [facility] RBC Auto (Bld) [#/Vol]on RBC (Bld) [#/Vol] Erythrocytes [#/volume] in Blood by Automated count Low 4.20-5.40 [facility] Serum or plasma anion gap de terminationon 10-09-2024 Anion gap [Moles/Vol] Serum or plasma an ion gap determination [facility] Urine protein/creatinine rat ioon 10-09-2024 Protein/Creatinine (U) [Ratio] Urine protein/creatinine ratio [facility] Erythrocyte distribution wid th Auto (RBC) [Ratio]on 08-18-2024 Erythrocyte distribution width (RBC) [Ratio] Erythrocyte distribution width [Ratio] by Automated count High 11.0-15.0 [facility] Estimated glomerular filtrat ion rate (GFR) non- Americanon 08-18-2024 GFR/1.73 sq M.predicted among non-blacks MDRD (S/P/Bld) [Vol rate/Area] Estimated glomerular filtration rate (GFR) non- Low >=60 mL/min/1.73m 2 [facility] Hematocrit Auto (Bld) [Volum e fraction]on 08-18-2024 Hematocrit (Bld) [Volume fraction] Hematocrit [Volume Fraction] of Blood by Automated count Low 36.0-48.0 [facility] Hemoglobin [Mass/volume] in Bloodon 08-18-2024 Hemoglobin (Bld) [Mass/Vol] Hemoglobin [Mass/volume] in Blood Low 12.0-16.0 [facility] Iron binding capacity [Mass/ volume] in Serum or Plasmaon 08-18-2024 Iron binding capacity [Mass/Vol] Iron binding capacity [Mass/volume] in Serum or Plasma 250.0-450.0 [facility] Iron saturation [Mass Fracti on] in Serum or Plasmaon 08-18-2024 Iron saturation [Mass fraction] Iron saturation [Mass Fraction] in Serum or Plasma [facility] Laboratory - Chemistry and C hemistry - challengeon 08-18-2024 Albumin [Mass/Vol] 3.4 g/dL 3.4-5.0 [facility] Calcium [Mass/Vol] 9.0 mg/dL 8.5-10.1 [facility] Chloride [Moles/Vol] 108 mmol/L High 98-107 [facility] CO2 [Moles/Vol] 26.5 mmol/L 21.0-32.[address] [facility] Creatinine [Mass/Vol] 1.36 mg/dL High 0.55-1.02 [facility] Ferritin [Mass/Vol] 17.0 ng/mL 8.0-252.0 [facility] GFR/1.73 sq M.predicted MDRD (S/P/Bld) [Vol rate/Area] 45 mL/min/{1.73_m2} Low >=60 mL/min/1.73m 2 [facility] Glucose [Mass/Vol] 96 mg/dL 74-106 [facility] Iron [Mass/Vol] 71.0 ug/dL 50.0-170.0 [facility] Magnesium [Mass/Vol] 2.4 mg/dL 1.8-2.4 [facility] Potassium [Moles/Vol] 4.7 mmol/L 3.5-5.1 [facility] Sodium [Moles/Vol] 140 mmol/L 136-145 [facility] Urate [Mass/Vol] 6.5 mg/dL High 2.6-6.[address] [facility] Urea nitrogen [Mass/Vol] 36.0 mg/dL High 7.0-18.0 [facility] Urea nitrogen/Creatinine [Mass ratio] 26.5 mg/mg [facility] Leukocytes [#/volume] correc halie for nucleated erythrocytes in Blood by Automated counon 08-18-2024 WBC corrected for nucl RBC Auto (Bld) [#/Vol] Leukocytes [#/volume] corrected for nucleated erythrocytes in Blood by Automated coun 4.0-11.0 [facility] MCH Auto (RBC) [Entitic mass ]on 08-18-2024 MCH (RBC) [Entitic mass] MCH [Entitic mass] by Automated count 26.7-34.0 [facility] MCHC Auto (RBC) [Mass/Vol]on 08-18-2024 MCHC (RBC) [Mass/Vol] MCHC [Mass/volume] by Automated count 29.9-35.2 [facility] MCV Auto (RBC) [Entitic vol] on 08-18-2024 MCV (RBC) [Entitic vol] MCV [Entitic volume] by Automated count 81.0-99.0 [facility] No Panel Informationon 08-18 25-Hydroxy Vitamin D Total 45.3 ng/mL [facility] Comment on above: <20 ng/mL Vit D defi cient20-<30 ng/mL Vit D [id number] ng/mL Vit D sufficient>100 ng/mL Potential Toxicity Parathyroid Hormone (Intact) 106 pg/mL Abnormal 15-65 [facility] Comment on above: Performed at: [facility] [address] [id number] Director: Ra Gonzalez PhD, Phone: [phone] Phosphorus Level 3.7 mg/dL 2.6-4.[address] [facility] Urine Random Creatinine 36.44 mg/dL 20.00-300.00 [facility] Urine Random Total Protein <6.0 mg/dL <=11.9 [facility] Office Visiton 08-18-2024 Follow-up visit [id number] Radha Gutiérrez 1945 F Date Provider Department Center 08/18/2024 [id number] FREEDMAN MAGNUS [place] Family History Problem Relation Age of Onset Heart failure Father Family Status - Relation Status Age at Father Level of Service:68507 [place] OFFICE/OUTPATIENT ESTABLISHED LOW MDM 20 MIN Normal [facility] Platelet mean volume Auto (B ld) [Entitic vol]on 08-18-2024 Platelet mean volume (Bld) [Entitic vol] Platelet mean volume [Entitic volume] in Blood by Automated count 9.5-13.5 [facility] Platelets Auto (Bld) [#/Vol] on 08-18-2024 Platelets (Bld) [#/Vol] Platelets [#/volume] in Blood by Automated count 150-450 [facility] RBC Auto (Bld) [#/Vol]on RBC (Bld) [#/Vol] Erythrocytes [#/volume] in Blood by Automated count Low 4.20-5.40 [facility] Serum or plasma anion gap de terminationon 08-18-2024 Anion gap [Moles/Vol] Serum or plasma an ion gap determination [facility] Office Visiton 03-21-2024 Follow-up visit [id number] Radha Gutiérrez 1945 F Date Provider Department [place] 03/21/2024 ROBERT GEE Family History Problem Relation Age of Onset Heart failure Father Family Status - Relation Status Age at Father Level of Service:26239 [place] OFFICE/OUTPATIENT ESTABLISHED LOW MDM 20 MIN [facility] 36on 02-11-2024 36 Tried to contact patient and she has no VM set up. Will try again on Wednesday morning. [facility] Documentationon 02-11-2024 Documentation [id number] Radha Gutiérrez 1945 Provider Department [place] 02/11/2024 TOYA VALENCIA Viky Family History Problem Relation Age of Onset Heart failure Father Family Status - Relation Status Age at Father [facility] 36on 02-08-2024 36 Patient had her device [...] Dr. Madden until 03/21. Please advise. Thanks. [facility] Telephoneon 02-08-2024 Telephone [id number] Radha Gutiérrez 1945 F Date Provider Department Center 02/08/2024 [id number], CARIDAD BH CARD [facility] Family History Problem Relation Age of Onset Heart failure Father Family Status - Relation Status Age at Father [facility] Office [place] 12-01-2023 Follow-up visit [id number] Radha Gutiérrez 1945 F Date Provider Department Center 12/01/2023 JonnaTOYA HUBBARD [facility] Family History Problem Relation Age of Onset Heart failure Father Family Status - Relation Status Age at Father Level of Service:29866 [place] POSTOP FOLLOW UP VISIT RELATED TO ORIGINAL PX [facility] HPon 11-01-2023 [facility] Electrophysiology Consult Note Reason for visit: Afib [...] GI bleed. [facility] [...] on file Intimate Partner Violence: Unknown (07/23/2023) [place] Safety & Environment Fear of Current or [...] mg tab (more content not included)... Normal [facility] NURSNOTEon 11-01-2023 NURSNOTE RN educated pt on d/ c instructions. RN encouraged pt to voice any questions or concerns. Pt verbalizes no questions or concerns at this time. Normal [facility] INSULINon 09-23-2022 Insulin 7.9 uIU/mL Normal 2.6-24.9 [facility] Comment on above: Performed By: #### I NSULIN ####[facility] [address] [place], [place] [address]Dr. Ravin Dior CBC AUTO DIFFon 09-22-2022 BASO # 0.0 103/ul Normal 0.0-0.1 [facility] Comment on above: Performed By: #### C BC ####[facility] [id number] [address]DrViky Dior Basophils/100 WBC (Bld) 0.4 % Normal 0.2-2.0 [facility] Comment on above: Performed By: #### C BC ####[facility] [id number] [address]Dr. Ravin Dior EO # 0.6 103/ul Normal 0.0-0.7 [facility] Comment on above: Performed By: #### C BC ####[facility] [id number] [place], [place] [address]Dr. Ravin Dior Eosinophils/100 WBC (Bld) 6.6 % Normal 0.9-7.0 [facility] Comment on above: Performed By: #### C BC ####[facility] [facility] [address] [place], [place] [address]Dr. Ravin Dior Erythrocyte distribution width (RBC) [Ratio] 16.2 % Critically high 11.0-15.0 [facility] Comment on above: Performed By: #### C BC ####[facility] [address] [place], [place] [address]Dr. Ravin Dior Hematocrit (Bld) [Volume fraction] 43.3 % Normal 36.0-48.0 [facility] Comment on above: Performed By: #### C BC ####[facility] [address] [place], [place] [address]Dr. Ravin Dior Hemoglobin (Bld) [Mass/Vol] 13.4 g/dL Normal 12.0-16.0 [facility] Comment on above: Performed By: #### C BC ####[facility] [address] [place], [place] [address]Dr. Ravin Dior IG # 0.05 10e3/ul Critically high 0.00-0.03 [facility] Comment on above: Performed By: #### C BC ####[facility] [address] [place], [place] [address]Dr. Ravin Dior IG % 0.5 % Normal 0.0-0.5 [facility] Comment on above: Performed By: #### C BC ####[facility] [address] [place], [place] [id number]. Ravin Dior LYMPH # 2.1 103/ul Normal 1.2-3.8 [facility] Comment on above: Performed By: #### C BC ####[facility] [address] [place] [address]Dr. Ravin Dior Lymphocytes/100 WBC (Bld) 23.1 % Normal 20.5-60.0 [facility] Comment on above: Performed By: #### C BC ####[facility] [address] [place] [address]Dr. Ravin Dior MANUAL DIFF REQ NO Normal [facility] Comment on above: Performed By: #### C BC ####[facility] [address] [place] [address]Dr. Ravin Dior MCH (RBC) [Entitic mass] 29.5 pg Normal 26.7-34.0 [facility] Comment on above: Performed By: #### C BC ####[facility] [address] [place], [place] [address]Dr. Novalilliana Dior MCHC (RBC) [Mass/Vol] 30.9 g/dL Normal 29.9-35.2 [facility] Comment on above: Performed By: #### C BC ####[facility] [address] [place], [place] [address]Dr. Ravin Dior MCV (RBC) [Entitic vol] 95.4 fL Normal 81.0-99.0 [facility] Comment on above: Performed By: #### C BC ####[facility] [address] [place] [address]Dr. Ravin Dior MONO # 0.5 103/ul Normal 0.3-0.8 [facility] Comment on above: Performed By: #### C BC ####[facility] [address] [place], [place] [address]Dr. Ravin Dior Monocytes/100 WBC (Bld) 5.8 % Normal 1.7-12.0 [facility] Comment on above: Performed By: #### C BC ####[facility] [address] [place], [place] [address]Dr. Novalilliana Ovi NEUT # 5.8 103/ul Normal 1.4-6.5 [facility] Comment on above: Performed By: #### C BC ####[facility] [address] [place] [address]Dr. Ravin Ovi Neutrophils/100 WBC (Bld) 63.6 % Normal 43.0-75.0 [facility] Comment on above: Performed By: #### C BC ####[facility] [address] [place] [address]Dr. Novalilliana Ovi Platelet mean volume (Bld) [Entitic vol] 10.7 fL Normal 9.5-13.5 [facility] Comment on above: Performed By: #### C BC ####[facility] [address] [place] [address]DrViky Dior PLT 223 103/ul Normal 150-450 [facility] Comment on above: Performed By: #### C BC ####[facility] [address] [place] [address]Dr. Ravin Dior RBC 4.54 106/ul Normal 4.20-5.40 [facility] Comment on above: Performed By: #### C BC ####[facility] [address] [place] [address]DrViky Dior WBC 9.2 103/ul Normal 4.0-11.0 [facility] Comment on above: Performed By: #### C BC ####[facility] [address] [place] [address]DrViky Dior FREE THYROXINE INDEX T7on FTI 2.44 Normal 1.30-4.50 [facility] Comment on above: Performed By: #### C MP, T7, TSH, LIPID #### [facility] [address] [place] [address] [address] Ravin Dior T3U 33.0 % Normal 30.0-39.0 [facility] Comment on above: Performed By: #### C MP, T7, TSH, LIPID #### [facility] [address] [address] [address] Ravin Dior T4 [Mass/Vol] 7.40 ug/dL Normal 4.80-13.90 [facility] Comment on above: Performed By: #### C MP, T7, TSH, LIPID #### [facility] [address] [place], [place] [address] Dr. Ravin Dior GLYCOHEMOGLOBIN A1Con 2022 ADA RECOMMENDATION SEE BELOW Normal [facility] Comment on above: Result Comment: ADA RECOMMENDED LIMIT 4.0 - 6.0 ADA THERAPEUTIC TARGET < 7.0 ACTION SUGGESTED > 7.0 Performed By: #### A 1C ####[facility] [address] [place] [address]DrViky Dior Glucose [Mass/Vol] 105 mg/dL Normal [facility] Comment on above: Performed By: #### A 1C ####[facility] [address] [place] [address]DrViky Dior HbA1c (Bld) [Mass fraction] 5.3 % Normal 4.5-6.2 [facility] Comment on above: Performed By: #### A 1C ####[facility] [address] [place] [id number] Dior IRONon 09-22-2022 Iron [Mass/Vol] 81.0 ug/dL Normal 50.0-170.0 [facility] Comment on above: Performed By: #### I SEAMUS ####[facility] [address] [place] [address]DrViky Dior LIPID PROFILEon 09-22-2022 CHOL-HDL RATIO NORM SEE BELOW Normal [facility] Comment on above: Result Comment: 3.3 - 4.4 LOW RISK 4.4 - 7.1 AVERAGE RISK 7.1 - 11.0 MODERATE RISK >11.0 HIGH RISK Performed By: #### C MP, T7, TSH, LIPID ####[facility] [address] [place] [id number] Dior Cholesterol [Mass/Vol] 159 mg/dL Normal <=200 [facility] Comment on above: Performed By: #### C MP, T7, TSH, LIPID ####[facility] [address] [place], [place] [address]Ez. Ravin Dior Cholesterol in HDL [Mass/Vol] 47 mg/dL Normal 40-60 [facility] Comment on above: Performed By: #### C MP, T7, TSH, LIPID ####[facility] [address] [place] [id number]. Ravin Dior Cholesterol in LDL [Mass/Vol] 96.4 mg/dL Normal [facility] Comment on above: Performed By: #### C MP, T7, TSH, LIPID ####[facility] [address] [place] [id number]. Ravin Dior Cholesterol.total/Cho lesterol in HDL [Mass ratio] 3.4 {ratio} Normal [facility] Comment on above: Performed By: #### C MP, T7, TSH, LIPID ####[facility] [address] [place] [id number]. Ravin Dior HDL NORMAL > or = 60 mg/dl - LO W CARDIOVASCULAR RISK <40 mg/dl - HIGH CARDIOVASCULAR RISK Normal [facility] Comment on above: Performed By: #### C MP, T7, TSH, LIPID ####[facility] [address] [place] [address]Dr. Ravin Dior LDL CALC NORMAL SEE BELOW Normal [facility] Comment on above: Result Comment: <100 mg/dl OPTIMAL 100 - 129 mg/dl NEAR OR ABOVE OPTIMAL 130 - 159 mg/dl BORDERLINE HIGH 160 - 189 mg/dl HIGH >190 mg/dl VERY HIGH Performed By: #### C MP, T7, TSH, LIPID ####[facility] [address] [place] [id number]. Ravin Dior Triglyceride [Mass/Vol] 78 mg/dL Normal <=150 [facility] Comment on above: Performed By: #### C MP, T7, TSH, LIPID ####[facility] [address] [place] [phone]. Ravin Dior VLDL CALC 15.6 mg/dL Normal [facility] Comment on above: Performed By: #### C MP, T7, TSH, LIPID ####[facility] [address] [place], [place] [address]VtDr. Ravin Dior MG MAMM SCREEN 3D NIKOS CADon 09-22-2022 MG MAMM SCREEN 3D NIKOS CAD Patient: RADHA GUTIÉRREZ Exam Date: 09/22/2022 : 1945 Gender:F Ordering : HEAVEN STALEY [facility] Admission #: [id number] Family : Order #: [id number] CLICK HERE TO VIEW EXAM RADIOLOGY REPORT [...] Treatments None Family Cancers None LOCATION: [facility] BREAST COMPOSITION: Almost entirely fatty. FINDINGS: DIAGNOSTIC [...] Valenzuela M.D. on 09/22/2022 at 17:02 Normal [facility] PROF 14(COMP METB)on 023 Albumin [Mass/Vol] 3.3 g/dL Critically low 3.4-5.0 Th e [facility] Comment on above: Performed By: #### C MP, T7, TSH, LIPID #### [facility] [address] [place] [address] [address] Ravin Dior Albumin/Globulin [Mass ratio] 0.7 {ratio} Normal [facility] Comment on above: Performed By: #### C MP, T7, TSH, LIPID #### [facility] [address] [place] [address] [address] Ravin Dior ALP [Catalytic activity/Vol] 207 U/L Critically high 46-116 [facility] Comment on above: Performed By: #### C MP, T7, TSH, LIPID #### [facility] [address] [place] [address] [address] Ravin Dior ALT [Catalytic activity/Vol] 47 U/L Normal 14-59 [facility] Comment on above: Performed By: #### C MP, T7, TSH, LIPID #### [facility] [address] [place] [address] Dr. Ravin Dior Anion gap [Moles/Vol] 11.5 mmol/L Normal [facility] Comment on above: Performed By: #### C MP, T7, TSH, LIPID #### [facility] [address] [place] [address] Dr. Ravin Dior AST [Catalytic activity/Vol] 35 U/L Normal 15-37 [facility] Comment on above: Performed By: #### C MP, T7, TSH, LIPID #### [facility] [address] [place] [address] Dr. Ravin Dior Bilirubin [Mass/Vol] 0.6 mg/dL Normal 0.2-1.0 [facility] Comment on above: Performed By: #### C MP, T7, TSH, LIPID #### [facility] [address] [place] [address] Dr. Ravin Dior Calcium [Mass/Vol] 9.2 mg/dL Normal 8.5-10.1 [facility] Comment on above: Performed By: #### C MP, T7, TSH, LIPID #### [facility] [address] [place] [address] Dr. Ravin Dior Chloride [Moles/Vol] 109 mmol/L Critically high 98-107 [facility] Comment on above: Performed By: #### C MP, T7, TSH, LIPID #### [facility] [address] [place] [address] [address] Ravin Dior CO2 [Moles/Vol] 27.7 mmol/L Normal 21.0-32.0 [facility] Comment on above: Performed By: #### C MP, T7, TSH, LIPID #### [facility] [address] [place] [address] [address] Ravin Dior Creatinine [Mass/Vol] 0.94 mg/dL Normal 0.55-1.02 [facility] Comment on above: Performed By: #### C MP, T7, TSH, LIPID #### [facility] [address] [place] [address] Dr. Ravin Dior EGFR-AF DUTCH >60 Normal >=60 [facility] Comment on above: Performed By: #### C MP, T7, TSH, LIPID #### [facility] [address] [place] [address] Dr. Ravin Dior EGFR-NON AF DUTCH 58 mL/min/1.73m2 Critically low >=60 [facility] Comment on above: Performed By: #### C MP, T7, TSH, LIPID #### [facility] [address] [place] [address] Dr. Ravin Dior Globulin (S) [Mass/Vol] 4.7 g/dL Normal [facility] Comment on above: Performed By: #### C MP, T7, TSH, LIPID #### [facility] [address] [place] [address] Dr. Ravin Dior Glucose [Mass/Vol] 95 mg/dL Normal 74-106 [facility] Comment on above: Performed By: #### C MP, T7, TSH, LIPID #### [facility] [address] [place] [address] Dr. Ravin Dior Potassium [Moles/Vol] 4.2 mmol/L Normal 3.5-5.1 [facility] Comment on above: Performed By: #### C MP, T7, TSH, LIPID #### [facility] [address] [place] [address] Dr. Ravin Dior Protein [Mass/Vol] 8.0 g/dL Normal 6.4-8.2 [facility] Comment on above: Performed By: #### C MP, T7, TSH, LIPID #### [facility] [address] [place] [address] Dr. Ravin Dior Sodium [Moles/Vol] 144 mmol/L Normal 136-145 [facility] Comment on above: Performed By: #### C MP, T7, TSH, LIPID #### [facility] [address] [place] [address] [address] Ravin Dior Urea nitrogen [Mass/Vol] 21.0 mg/dL Critically high 7.0-18.0 [facility] Comment on above: Performed By: #### C MP, T7, TSH, LIPID #### [facility] [address] [place] [address] [address] Ravin Dior Urea nitrogen/Creatinine [Mass ratio] 22.3 mg/mg Normal [facility] Comment on above: Performed By: #### C MP, T7, TSH, LIPID #### [facility] [address] [place] [address] [address] Ravin Dior TSHon 09-22-2022 TSH 2.085 uIU/mL Normal 0.358-3.740 [facility] Comment on above: Performed By: #### C MP, T7, TSH, LIPID #### [facility] [address] [place] [address] ABD/PELVIS WO CONon [...] was used, including Automated Exposure Control. FINDINGS: Deployment Specialist: No pertinent findings, which are not already [...] the largest most superior hernia. Normal [facility] CBC AUTO DIFFon 05-17-2022 BASO # 0.0 103/ul Normal 0.0-0.1 [facility] Comment on above: Performed By: #### C BC ####[facility] [address] [place], [place] [address]YpViky Dior Basophils/100 WBC (Bld) 0.2 % Normal 0.2-2.0 [facility] Comment on above: Performed By: #### C BC ####[facility] [address] [place], [place] [address]MrViky Dior EO # 0.1 103/ul Normal 0.0-0.7 [facility] Comment on above: Performed By: #### C BC ####[facility] [address] [place] [id number]. Ravin Dior Eosinophils/100 WBC (Bld) 1.4 % Normal 0.9-7.0 [facility] Comment on above: Performed By: #### C BC ####[facility] [address] [place] [address]Dr. Ravin Dior Erythrocyte distribution width (RBC) [Ratio] 13.7 % Normal 11.0-15.0 [facility] Comment on above: Performed By: #### C BC ####[facility] [address] [place], [place] [address]Dr. Ravin Dior Hematocrit (Bld) [Volume fraction] 44.4 % Normal 36.0-48.0 [facility] Comment on above: Performed By: #### C BC ####[facility] [address] [place], [place] [address]Dr. Ravin Dior Hemoglobin (Bld) [Mass/Vol] 14.7 g/dL Normal 12.0-16.0 [facility] Comment on above: Performed By: #### C BC ####[facility] [address] [place], [place] [address]Dr. Ravin Dior IG # 0.05 10e3/ul Critically high 0.00-0.03 [facility] Comment on above: Performed By: #### C BC ####[facility] [address] [place], [place] [address]Dr. Ravin Dior IG % 0.5 % Normal 0.0-0.5 [facility] Comment on above: Performed By: #### C BC ####[facility] [address] [place], [place] [address]Dr. Ravin Dior LYMPH # 1.7 103/ul Normal 1.2-3.8 [facility] Comment on above: Performed By: #### C BC ####[facility] [address] [place], [place] [address]Dr. Ravin Dior Lymphocytes/100 WBC (Bld) 17.1 % Critically low 20.5-60.0 [facility] Comment on above: Performed By: #### C BC ####[facility] [address] [place] [address]Dr. Ravin Dior MANUAL DIFF REQ NO Normal [facility] Comment on above: Performed By: #### C BC ####[facility] [address] [place] [id number]. Ravin Dior MCH (RBC) [Entitic mass] 30.7 pg Normal 26.7-34.0 [facility] Comment on above: Performed By: #### C BC ####[facility] [address] [place] [address]Dr. Ravin Dior MCHC (RBC) [Mass/Vol] 33.1 g/dL Normal 29.9-35.2 [facility] Comment on above: Performed By: #### C BC ####[facility] [address] [place], [place] [address]Dr. Ravin Dior MCV (RBC) [Entitic vol] 92.7 fL Normal 81.0-99.0 [facility] Comment on above: Performed By: #### C BC ####[facility] [address] [place], [place] [address]Dr. Ravin Dior MONO # 0.6 103/ul Normal 0.3-0.8 [facility] Comment on above: Performed By: #### C BC ####[facility] [address] [place] [address]Dr. Ravin Dior Monocytes/100 WBC (Bld) 5.7 % Normal 1.7-12.0 [facility] Comment on above: Performed By: #### C BC ####[facility] [address] [place], [place] [address]DrViky Dior NEUT # 7.7 103/ul Critically high 1.4-6.5 [facility] Comment on above: Performed By: #### C BC ####[facility] [address] [place] [address]Dr. Ravin Dior Neutrophils/100 WBC (Bld) 75.1 % Critically high 43.0-75.0 [facility] Comment on above: Performed By: #### C BC ####[facility] [address] [place] [address]Dr. Ravin Dior Platelet mean volume (Bld) [Entitic vol] 10.4 fL Normal 9.5-13.5 [facility] Comment on above: Performed By: #### C BC ####[facility] [address] [place] [address]Dr. Ravin Dior PLT 294 103/ul Normal 150-450 [facility] Comment on above: Performed By: #### C BC ####[facility] [address] [place] [address]Dr. Ravin Dior RBC 4.79 106/ul Normal 4.20-5.40 [facility] Comment on above: Performed By: #### C BC ####[facility] [address] [place] [address]Dr. Ravin Dior WBC 10.2 103/ul Normal 4.0-11.0 [facility] Comment on above: Performed By: #### C BC ####[facility] [address] [place], [place] [address]DrViky Dior ER URINE PROFILEon 2 Bilirubin Ql (U) Negative Normal NEGATIVE [facility] Comment on above: Performed By: #### DENY KAUFFMANRO #### [facility] [address] [place] [address] Dr. Ravin Dior Clarity (U) CLEAR Normal CLEAR [facility] Comment on above: Performed By: #### DENY KAUFFMANRO #### [facility] [address] [place] [address] Dr. Ravin Dior Color (U) LT. YELLOW Normal YELLOW [facility] Comment on above: Performed By: #### DENY KAUFFMANRO #### [facility] [address] [place] [address] Dr. Ravin PARKER A micrscopic examination will be performed if indicated. Normal [facility] Comment on above: Performed By: #### DENY KAUFFMANRO #### [facility] [address] [place] [address] Dr. Ravin Dior Glucose Ql (U) Negative Normal NEGATIVE [facility] Comment on above: Performed By: #### DENY KAUFFMANRO #### [facility] [address] [place] [address] Dr. Ravin Dior Hemoglobin Ql (U) Negative Normal NEGATIVE [facility] Comment on above: Performed By: #### DENY KAUFFMANRO #### [facility] [address] [place] [address] Dr. Ravin Dior Ketones Ql (U) TRACE Abnormal NEGATIVE [facility] Comment on above: Performed By: #### DENY KAUFFMANRO #### [facility] [address] [place] [address] Dr. Ravin Dior LEUKOCYTES SMALL Abnormal NEGATIVE [facility] Comment on above: Performed By: #### DENY KAUFFMANRO #### [facility] [address] [place] [address] Dr. Ravin Dior Nitrite Ql (U) Negative Normal NEGATIVE [facility] Comment on above: Performed By: #### DENY KAUFFMANRO #### [facility] [address] [place] [address] Dr. Ravin Dior pH (U) 6.0 [pH] Normal 5-9 [facility] Comment on above: Performed By: #### DENY KAUFFMANRO #### [facility] [address] [place] [address] Dr. Ravin Dior SPEC GRAVITY 1.010 Normal 1.005-<=1.025 [facility] Comment on above: Performed By: #### DENY KAUFFMANRO #### [facility] [address] [place] [address] Dr. Ravin Dior UA PROTEIN Negative Normal NEGATIVE/ TRACE [facility] Comment on above: Performed By: #### DENY KAUFFMANRO #### [facility] [address] [place] [address] Dr. Ravin Dior UR MICRO IND INDICATED Normal [facility] Comment on above: Performed By: #### E DENY SOUTHRO #### [facility] [address] [place] [address] [address] Ravin Dior Urobilinogen Qn (U) 0.2 {Chandler'U}/dL Normal 0.2 - 1. 0 [facility] Comment on above: Performed By: #### DENY KAUFFMANRO #### [facility] [address] [place] [address] [address] Ravin Dior LACTATE/LACTIC ACIDon 2021 Lactate [Moles/Vol] 1.3 mmol/L Normal 0.4-1.[address] [facility] Comment on above: Performed By: #### L ACT ####[facility] [address] [place] [address]Dr. Ravin Dior LIPASEon 05-17-2022 Lipase [Catalytic activity/Vol] 63.0 U/L Critically low 73.0-393.0 [facility] Comment on above: Performed By: #### C MP, LIPA #### [facility] [address] [place] [address] [address] Ravin Dior PROF 14(COMP METB)on 022 Albumin [Mass/Vol] 3.4 g/dL Normal 3.4-5.0 [facility] Comment on above: Performed By: #### C MP, LIPA #### [facility] [address] [place] [address] [address] Ravin Dior Albumin/Globulin [Mass ratio] 0.8 {ratio} Normal [facility] Comment on above: Performed By: #### C MP, LIPA #### [facility] [address] [place] [address] [address] Ravin Dior ALP [Catalytic activity/Vol] 143 U/L Critically high 46-116 [facility] Comment on above: Performed By: #### C MP, LIPA #### [facility] [address] [place] [address] [address] Ravin Dior ALT [Catalytic activity/Vol] 29 U/L Normal 14-59 [facility] Comment on above: Performed By: #### C MP, LIPA #### [facility] [address] [place] [address] [address] Ravin Dior Anion gap [Moles/Vol] 7.6 mmol/L Normal [facility] Comment on above: Performed By: #### C MP, LIPA #### [facility] [address] [place] [address] [address] Ravin Dior AST [Catalytic activity/Vol] 39 U/L Critically high 15-37 [facility] Comment on above: Performed By: #### C MP, LIPA #### [facility] [address] [place] [address] [address] Ravin Dior Bilirubin [Mass/Vol] 0.7 mg/dL Normal 0.2-1.0 [facility] Comment on above: Performed By: #### C MP, LIPA #### [facility] [address] [place] [address] Dr. Ravin Dior Calcium [Mass/Vol] 9.1 mg/dL Normal 8.5-10.1 [facility] Comment on above: Performed By: #### C MP, LIPA #### [facility] [address] [place] [address] [address] Ravin Dior Chloride [Moles/Vol] 102 mmol/L Normal 98-107 [facility] Comment on above: Performed By: #### C MP, LIPA #### [facility] [address] [place] [address] [address] Ravin Dior CO2 [Moles/Vol] 31.1 mmol/L Normal 21.0-32.0 [facility] Comment on above: Performed By: #### C MP, LIPA #### [facility] [address] [place] [address] [address] Ravin Dior Creatinine [Mass/Vol] 0.88 mg/dL Normal 0.55-1.02 [facility] Comment on above: Performed By: #### C MP, LIPA #### [facility] [address] [place] [address] [address] Ravin Dior EGFR-AF DUTCH >60 Normal >=60 [facility] Comment on above: Performed By: #### C MP, LIPA #### [facility] [address] [place] [address] [address] Ravin Dior EGFR-NON AF DUTCH >60 Normal >=60 [facility] Comment on above: Performed By: #### C MP, LIPA #### [facility] [address] [place] [address] [address] Ravin Dior Globulin (S) [Mass/Vol] 4.5 g/dL Normal [facility] Comment on above: Performed By: #### C MP, LIPA #### [facility] [address] [place] [address] [address] Ravin Dior Glucose [Mass/Vol] 100 mg/dL Normal 74-106 [facility] Comment on above: Performed By: #### C MP, LIPA #### [facility] [address] [place] [address] [address] Ravin Dior Potassium [Moles/Vol] 3.7 mmol/L Normal 3.5-5.1 [facility] Comment on above: Performed By: #### C MP, LIPA #### [facility] [address] [address] [address] Ravin Dior Protein [Mass/Vol] 7.9 g/dL Normal 6.4-8.2 [facility] Comment on above: Performed By: #### C MP, LIPA #### [facility] [address] [address] [address] Ravin Dior Sodium [Moles/Vol] 137 mmol/L Normal 136-145 [facility] Comment on above: Performed By: #### C MP, LIPA #### [facility] [address] [address] [address] Ravin Dior Urea nitrogen [Mass/Vol] 12.0 mg/dL Normal 7.0-18.0 [facility] Comment on above: Performed By: #### C MP, LIPA #### [facility] [address] [address] [address] Ravin Dior Urea nitrogen/Creatinine [Mass ratio] 13.6 mg/mg Normal [facility] Comment on above: Performed By: #### C MP, LIPA #### [facility] [address] [address] [address] Ravin Dior URINE MICROSCOPIC ONLYon BACTERIA NONE SEEN Normal NONE SEEN [facility] Comment on above: Performed By: #### E RUR, UMICRO #### [facility] [address] [place] [address] Dr. Ravin Dior Bacteria identified Cx Nom (U) NOT INDICATED Normal [facility] Comment on above: Performed By: #### E RUR, UMICRO #### [facility] [address] [place] [address] Dr. Ravin Dior CAST NONE SEEN Normal NONE SEEN [facility] Comment on above: Performed By: #### E RUR, UMICRO #### [facility] [address] [place] [address] Dr. Ravin Dior Crystals LM Nom (Urine sed) NONE SEEN Normal NONE SEEN [facility] Comment on above: Performed By: #### E RUR, UMICRO #### [facility] [address] [place] [address] Dr. Ravin Dior Epithelial cells LM Ql (Urine sed) FEW Abnormal NONE SEEN /RARE [facility] Comment on above: Performed By: #### E RUR, UMICRO #### [facility] [address] [place] [address] Dr. Ravin Dior MUCOUS NONE SEEN Normal NONE SEEN [facility] Comment on above: Performed By: #### E RUR, UMICRO #### [facility] [address] [place] [address] Dr. Ravin Dior RBC NONE SEEN Abnormal 0-2 [facility] Comment on above: Performed By: #### E RUR, UMICRO #### [facility] [address] [place] [address] Dr. Ravin Dior WBC 0-2 Abnormal NONE SEEN [facility] Comment on above: Performed By: #### E RUR, UMICRO #### [facility] [address] [place] [address] Dr. Ravin Dior Ambulatory Clinical Summaryo n 07-24-2020 Ambulatory Clinical Summary {[id number] Normal [facility] Gastroenterology Office/Clin ic Noteon 07-24-2020 [...] course, # 28 cap(s), Refills(s) 0, [id number], 165, cm, 07/24/20 12:03:00 EST, Height/Length Dosing, 95.9, kg, 07/24/20 12:03:00 EST, Weight Dosing metronidazole, 250 mg = 1 tab(s), Oral, TID, X 7 day(s), # 21 tab(s), Refills(s) 0, Pharmacy: [facility]/pharmacy #[id number], 165, cm, 07/24/20 [...] water, # 160 cap(s), Refills(s) 1, Pharmacy: [facility]/pharmacy #[id number], 165, cm, 07/24/20 12:03:00 EST, Height/Length Dosing, 95.9, kg, 07/24/20 12:03:... Orders: pantoprazole, 40 mg = 2 tab(s), Oral, Daily, X 90 day(s), # 180 tab(s), Refills(s) 3, Pharmacy: [facility]/pharmacy #[id number], 165, cm, 07/24/20 12:03:00 EST, Height/Length Dosing, 95.9, kg, 07/24/20 12:03:00 EST, Weight Dosing Follow-up With When Contact Information Isabelle Ramirez MD In 12 months [address] [address]- Additional Instructions: Problem List/Past Medical [...] 12/16/2018 Exercise - Occasional exercise, 12/16/2018 Other Pkpktcnn-3-4 cups blair;y, 12/16/2018 Substance Abuse - Denies Substance Abuse, 12/16/2018 Tobacco Never (less than 100 in lifetime) Tobacco Use:., 07/24/2020 Never (less than 100 in lifetime) Tobacco Use:. Never Smokeless Tobacco Use:., 02/01/2019 [facility] Comment on above: Result Comment: Elec tronically Signed By: Taylor Mccauley MD, Isabelle\.br\Date and Time Signed: 07/24/20 13:13 EST Auth for Release of Medical Recordson 02-09-2020 Auth for Release of Medical Records [id number] [facility] Patient Letter FTon 2019 Patient Letter [facility] January 24, 2020 RADHA GUTIÉRREZ [address] [place] [address] BROCKRADHA 1945 Dear Radha, This is a reminder that you are due for an appointment with Dr. Garland or Dr. Mccauley. Please call [facility] at [phone] to schedule an appointment at your earliest convenience. Thank you, [facility] Normal [facility] Vital Signs Date Time Vital Sign Value Performing Clinician Chuckie osborne 10-19-2024 13:15-0400 Body height 165.1 cm [facility] 10-19-2024 13:15-0400 Body mass index (BMI) [Ratio] 32.3 kg/m2 [facility] 10-19-2024 13:15-0400 Body temperature 97.5 [degF] [facility] 10-19-2024 13:15-0400 Body weight 88.11 kg [facility] 10-19-2024 13:15-0400 Diastolic blood pressure 64 mm[Hg] [facility] 10-19-2024 13:15-0400 Heart rate 75 /min [facility] 10-19-2024 13:15-0400 Respiratory rate 18 /min [facility] 10-19-2024 13:15-0400 SaO2% (BldA) [Mass fraction] 97 % [facility] 10-19-2024 13:15-0400 Systolic blood pressure 99 mm[Hg] [facility] 07-27-2024 10:30-0500 Diastolic blood pressure 68 mm[Hg] [facility] 07-27-2024 10:30-0500 Systolic blood pressure 96 mm[Hg] [facility] 07-27-2024 10:13-0500 Body height 165.1 cm [facility] 07-27-2024 10:13-0500 Body mass index (BMI) [Ratio] 31.3 kg/m2 [facility] 07-27-2024 10:13-0500 Body weight 85.33 kg [facility] 07-27-2024 10:13-0500 Heart rate 85 /min [facility] 07-27-2024 10:13-0500 Respiratory rate 16 /min [facility] 07-27-2024 10:13-0500 SaO2% (BldA) [Mass fraction] 98 % [facility] Encounters Encounter Date Encounter Type Care Provider Facility Start: 10-20-2024 ambulatory [facility] Start: 10-19-2024 End: 10-19-2024 ambulatory [facility] Work Phone: Start: 10-19-2024 End: 10-19-2024 Patient encounter procedure [facility] Work Phone: Start: 10-09-2024 Non-patient / Non-visit [facility] Work Phone: Start: 09-11-2024 ambulatory [facility] Start: 08-18-2024 End: 08-18-2024 [facility] Start: 08-18-2024 Non-patient / Non-visit [facility] Work Phone: Start: 08-15-2024 ambulatory [facility] Start: 08-14-2024 End: 08-14-2024 ambulatory [facility] Start: 08-09-2024 ambulatory [facility] Start: 07-27-2024 End: 07-27-2024 ambulatory [facility] Work Phone: Start: 07-27-2024 End: 07-27-2024 Patient encounter procedure [facility] Kevin Work Phone: Start: 07-11-2024 ambulatory [facility] Start: 06-15-2024 ambulatory [facility] Start: 05-22-2024 ambulatory [facility] Start: 05-18-2024 ambulatory [facility] Start: 05-16-2024 ambulatory [facility] Start: 05-15-2024 ambulatory [facility] Start: 05-04-2024 ambulatory [facility] Start: 04-20-2024 ambulatory [facility] Start: 03-27-2024 ambulatory [facility] Start: 03-21-2024 End: 03-21-2024 ambulatory [facility] Start: 03-17-2024 ambulatory [facility] Start: 02-08-2024 End: 02-08-2024 ambulatory [facility] Start: 01-18-2024 ambulatory [facility] Start: 01-17-2024 End: 01-17-2024 ambulatory CARIDAD GARNER Not Available Start: 01-11-2024 End: 01-11-2024 ambulatory SANDIE PAGE Not Available Start: 01-05-2024 ambulatory [facility] Start: 12-28-2023 End: 12-28-2023 Telephone encounter [facility] Start: 12-20-2023 End: 12-20-2023 ambulatory SANDIE PAGE Not Available Start: 12-16-2023 ambulatory [facility] Start: 12-06-2023 End: 12-06-2023 Refill Sonia Tenorio RN [facility] Comment on above: Med Refill Start: 12-01-2023 End: 12-01-2023 ambulatory TOYA RIZO [facility] Start: 11-25-[address] [facility] Start: 11-25-2023 Encounter for preprocedural cardiovascular examination 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 Work Phone: [facility] Comment on above: Med Refill Start: 06-11-2023 Refill Mike means MD Work Phone: [facility] Comment on above: Med Refill Start: 06-05-2023 Refill Vickitej horne 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 Work Phone: [facility] Comment on above: Med Refill [...] Start: 01-30-2024 Influenza vaccination Influenza Vacc ine [facility] Start: 08-25-2023 Adult BMI Screening Adult BMI Screen ing [facility] Start: 08-25-2023 Tobacco Screening Tobacco Screening [facility] Start: 01-29-2023 COVID-19 Vaccine ( season) COVID-19 Vaccine ( season) [facility] Start: 01-29-2023 Influenza vaccination Influenza Vacc ine [facility] Start: 11-03-2022 ambulatory Ambulatory Facility:H 1 Start: 2010 Fall Risk Screening Fall Risk Screen ing [facility] Start: 1995 Administration of varicella zoster vaccine Zoster (Shingles) [facility] Start: 1964 DTaP,Tdap and Td Vac cines (1 - Tdap) DTaP,Tdap and Td Vaccines (1 - Tdap) [facility] Start: 1963 Adult BMI Follow Up Plan Adult BMI Follow Up Plan [facility] Start: 1957 Depression Screening [facility] Start: 1945 Medicare Annual Well ness Visit Medicare Annual Wellness Visit [facility] End: 06-08-2024 Basic metabolic 2000 panel - Serum or Plasma Basic Metabolic Panel Lab Routine Essential hypertension 1 Occurrences starting 06/08/2023 until 06/08/2024 [facility] [employer] [facility] Work Phone: Comment on above: 1 Occurrences starti ng 06/08/2023 until 06/08/2024 Renal function 1999 panel - Serum or Plasma [facility] Renal function 1999 panel - Serum or Plasma [facility] US Kidney - bilateral Firela nds [facility] Immunizations Immunization Date Immunization Notes Care Provider Fa sherie 05-08-2021 influenza virus vaccine, unspecified formulation Mac Erwin APRN-VICKIE Work Phone: [facility] Payers Date Payer Category Payer Medicare [employer] MEDICARE [place] [id number] 2013-Present [phone] [address] [address] [place] [address] [id number] 1959 Medicare [id number] 1945 Unknown [id number] 1945 Unknown [id number] 1945 Unknown [id number] 1945 Unknown [id number] 1945 Unknown [id number] 1945 Unknown [id number] 1945 Unknown [id number] 1945 Unknown [id number] 1945 Unknown [id number] 1945 Unknown [id number] 1945 Unknown [id number] Medicare Medicare [id number] Social History Date Type Detail Facility Start: 05-26-2022 End: 10-19-2024 Tobacco smoking status NHIS Never smoked tobacco [facility] Start: 05-26-2022 Tobacco use and exposure Smoke less tobacco non-user [facility] Start: 08-24-2022 Alcohol intake Current non-dr ham boner of alcohol (finding) [facility] Start: 07-04-2020 End: 08-24-2022 History of Social function [facility] Start: 07-04-2020 End: 08-24-2022 Tobacco use panel [facility] Housing Instability Unknown [facility] Start: 1945 Sex Assigned At Not on file P [facility] Start: 07-27-2024 End: 10-19-2024 Sex Female (finding) [facility] Start: 1945 Sex Assigned At Female F [facility] Medical Equipment Procedure Code Equipment Code Equipment Origin al Text Equipment Identifier Dates Mesh [id number] 3d Rect Plstr Clgn Symbotex 2 Sd Comp Mfl Babsr Rpl [id number] - [facility] - [id number] Start: 06-30-2022 Dev Clsr 30fr Watchman 30mm - [id number] Start: 10-28-2018 Clinical Notes 12-24-2021 to [...] Watchman device successfully placed by Dr. Hines 2018, implantation of Biventricular ICD ([employer]) 07/05/2023, status post AV node ablation 11/01/[address] Madden. 08/18/2024 office visit: The patient was seen and evaluated in the office today. Overall, she reports feeling well. Abnormal kidney function was incidentally noted on presurgical labs for a planned back surgery, including a potassium of 5.8 and creatinine of 1.62. 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 [facility] 03-21-2024 Note [place] Electrophysiology Consult Note Reason for visit: Afib [...] on file Intimate Partner Violence: Unknown (07/23/2023) [place] Safety & Environment Fear of Current or [...] mg tablet Ta (more content not included)... [facility] 02-14-2024 Note This report has been cancelled. [facility] 02-11-2024 Note RCRI= 2 points Class III Risk 10.1 % 30-day risk of , [place], or cardiac arrest From a cardiac perspective pt may proceed with planned surgery, she is a moderate risk for a moderate risk orthopedic surgery. She may hold Aspirin 5-7 days prior and resume post op. Please monitor hemodynamics carefully and prevent any major fluid shifts. Toya Rizo [facility] Card[facility] Available 7a-5pm via [employer] Chat Pager [phone] [facility] 12-28-2023 Miscellaneous Notes Rec'd letter from patient stating that she no longer sees [facility], uses a doctor in [place]. documented in this encounter [facility] 12-28-2023 Telephone encounter Note Rec'd letter from patient stating that she no longer sees [facility], uses a doctor in [place]. [facility] 12-06-2023 Miscellaneous Notes Last OV 06/15/22.slm T/C to pt to sched [facility] f/u appt. No answer and mailbox is full. documented in this encounter [facility] 12-06-2023 Telephone encounter Note Last OV 06/15/22.slm [facility] 12-06-2023 Telephone encounter Note T/C to pt to sched [facility] f/u appt. No answer and mailbox is full. [facility] 12-01-2023 Note Currently pt is doin g quite well s/p recent AV node ablation Remains V paced with BI-V AICd [facility] 12-01-2023 Note No anticoagulation currently Uni [facility] 12-01-2023 Note Patient here for fol low up AV node ablation performed on 11/01/[address] Madden. She denies chest pain, SOB, palpitations, and lightheadedness/syncope. Review of Systems Musculoskeletal: Positive for arthritis and back pain. All other systems reviewed and are negative. [facility] 12-01-2023 Note UTP CARDIOLOGY PROGR ESS [...] GI bleed. [facility] She was initially seen by Dr. [...] Conjunctiva/sclera: Conjunctivae normal. (more content not included)... [facility] 11-01-2023 Note AV NODE ABLATION PRO CEDURE REPORT DATE OF PROCEDURE: 11/01/2023 PERFORMING PHYSICIAN: Dr. Robert Madden TRUSS DESIGNER: NA CONSENT: Patient NAME OF THE PROCEDURE: AV [...] Continue anticoagulation. Robert Madden MD Cardiac Electrophysiology. [facility] 11-01-2023 Note Patient: Radha mcghee Procedure Information Date/Time: 11/01/23829 Procedure: AV node ablation Location: [facility] OPHTHALMOLOGIST 1 EP / [facility] HV VASCULAR LAB (Cath) Providers: Robert Madden MD Clinical information reviewed: Tobacco Allergies Meds Med Hx Surg Hx OB Status Fam Hx Physical Exam Airway Mallampati: II TM distance: >3 FB Neck ROM: full Cardiovascular Dental Pulmonary Abdominal Anesthesia Plan ASA 2 CSE Anesthetic plan and risks discussed with patient. Use of blood products discussed with patient who. Additional Equipment Requests [facility] 11-01-2023 Note [place] Electrophysiology Consult Note Reason for visit: Afib [...] GI bleed. [facility] She was initially seen by [...] on file Intimate Partner Violence: Unknown (07/23/2023) [place] Safety & Environment Fear of Current or [...] 50 mg tab (more content not included)... [facility] 09-10-2023 Miscellaneous Notes Please sign and route if you agree. Thank you HODAN 06/22/22 Pt needs annual appt schedule please, thank you. Letter mailed. LMOM for the patient to call and schedule their next appointment with [facility]. documented in this encounter [facility] 09-10-2023 Telephone encounter Note Please sign and route if you agree. Thank you HODAN 06/22/22 Pt needs annual appt schedule please, thank you. Letter mailed. [facility] 09-10-2023 Telephone encounter Note LMOM for the patient to call and schedule their next appointment with [facility]. [facility] 06-11-2023 Miscellaneous Notes Last OV 06/15/22, sent to [facility] front maker lockstitch for yearly visit to be scheduled. CMP 06/22/22. BMP ordered from refill encounter 06/08/23. Letter has been mailed, but will attempt to send letter via [facility] as last login was 05/07/23. documented in this encounter [facility] 06-11-2023 Telephone encounter Note Last OV 06/15/22, sent to [facility] front maker lockstitch for yearly visit to be scheduled. CMP 06/22/22. BMP ordered from refill encounter 06/08/23. Letter has been mailed, but will attempt to send letter via [facility] as last login was 05/07/23. [facility] 07-23-2022 Note PAIN MANAGEMENT CONS ULTATION CONSULTATION [...] months' time or sooner if needed. [facility] 03-26-2022 Note CONSULTATION CONSULTATION DATE: 03/26/2022 This [...] agrees with the plan of care. [facility] 12-24-2021 Note CONSULTATION PROCEDURE DATE: 12/24/2021 PREOPERATIVE [...] the procedure well with no complications. [facility] 12-24-2021 Note CONSULTATION CONSULTATION DATE: 12/24/2021 HISTORY [...] three months' time, unless otherwise indicated. [facility] Evaluation note Diagnosis Essential hypertension- Primary Unspecified essential hypertension [facility] Diagnosis Chronic systolic CHF (congestive heart failure) ([facility] documented in this [facility]* Diagnosis Onset Date Resolution Status Admit Date Atrial fibrillation acute Febru sahil 2024 10:10am Chronic systolic (congestive ) heart failure acute July 27, 2 025 10:10am CKD (chronic kidney disease) stage 3, GFR 30-59 ml/min acute Februa ry 2024 10:10am Hyperlipidemia acute July 022024 10:10am Hypertensive chronic kidney disease with stage 1 through stage 4 chronic ki acute July 10:10am Iron deficiency acute July 27, 2024 10:10am [facility] Work Phone: Evaluation note* Diagnosis Onset Date Resolution Status Admit Date Atrial fibrillation acute September 292024 12:46pm Chronic systolic (congestive ) heart failure acute October 19, 2024 1 2:46pm CKD (chronic kidney disease) stage 3, GFR 30-59 ml/min acute October 192024 12:46pm Hyperlipidemia acute October 19, 2024 12:46pm Hypertensive chronic kidney disease with stage 1 through stage 4 chronic ki acute October 19 12:46pm Iron deficiency acute October 19, 2024 12:46pm [facility] Work Phone: InstructionsNot on filedocumented in this encounter [facility] filedocumented in this encounter [facility] on filedocumented in this encounter [facility] on filedocumented in this encounter [facility] Summary Purpose Family History No Family History Records FoundNo Family History Records FoundNo Family History Records FoundNo Family History Records Found Advance Directives No Advanced Directives Records Found Advance Directive Response Recorded Date/ Time Advance Directives Yes March 31, 2024 9:48am Advance Directive Response Recorded Date/ Time Advance Directives Yes March 31, 2024 10:48am Chief Complaint and Reason for Visit Chief [...] 10:10am Iron deficiency July 27, 2024 10:10am Chief Complaint Admit Date renal 2 month f/u October 19, 2024 12:46 pm Reason for Visit Admit Date Atrial fibrillation October 19, 2024 12:46 pm Chronic systolic (congestive) heart fail ure October 19, 2024 12:46pm CKD (chronic kidney disease) stage 3, GF R 30-59 ml/min October 19, 2024 12:46pm Hyperlipidemia October 19, 2024 12:46 pm Hypertensive chronic kidney disease with stage 1 through stage 4 chronic ki October 19, 2024 12:46pm Iron deficiency October 19, 2024 12:46 pm Additional Source Comments INFORMATION SOURCE (unrecogn ized section and content) DATE CREATED AUTHOR 07/25/2020 [facility] DATE CREATED AUTHOR AUTHOR'S ORGANIZ ATION 10/12/2022 [facility] DATE CREATED AUTHOR AUTHOR'S ORGANIZ ATION 01/17/2024 [facility] EPIC DATE CREATED AUTHOR AUTHOR'S ORGANIZ ATION 10/26/2024 [facility] Reason for Visit (unrecogniz ed section and content) Reason Comments Med Refill Reason Onset Date Comments Med Refill 12/06/2023 Care Teams (unrecognized sec tion and content) Team Status: Active Member Role Status Dates WANDA Rich Primary Care Provider Active Team Status: Active Member Role Status Dates WANDA Rich Primary Care Provider Active Start: August 18, 2024 Juliana Landeros MD Attending Provider Active Start : August 18, 2024 Team Status: Active Member Role Status Dates WANDA Rich Primary Care Provider Active Start: October 09, 2024 Juliana Landeros MD Attending Provider Active Start : October 09, 2024 Team Status: Inactive Member Role Status Dates WANDA Rich Primary Care Provider Active Start: October 19, 2024 End: October 19, 2024 Juliana Landeros MD Attending Provider Active Start : October 19, 2024 End: October 19, 2024 Bobcat Operator Relationship Specialty Start Date End Date Heaven Staley APRN-CNP [facility] [place] [address] PCP - General Family Medicine 10/30/21 Bobcat Operator Relationship Specialty Start Date End Date Heaven Staley APRN-CNP [address] [facility] [place] [address] PCP - General Family Medicine 10/30/21 Bobcat Operator Relationship Specialty Start Date End Date Heaven Staley APRN-CNP [address] [facility], [place] [address] PCP - General Family Medicine 10/30/21 Bobcat Operator Relationship Specialty Start Date End Date Heaven Staley APRN-CNP [address] [facility], [place] [address] PCP - General Family Medicine 10/30/21 Team Status: Inactive Member Role Status Dates Juliana Landeros MD Attending Provider Active Start : July 27, 2024 End: July 27, 2024 Heaven Staley NP-C Primary Care Pr kirsten, Referring Provider Active [...] BE BASED ON THE PRIMARY CLINICAL RECORDS. [employer] [facility] provides no warranty or guarantee of the accuracy or completeness of information in this document.
== END 2024-11-13 09:27 | disposition home or self-care (01) ==
PROVIDERS: PCP Nurse Practitioner Family; Visit Provider Nurse Practitioner
DX: M47.812 Spondylosis without myelopathy or radiculopathy, cervical region (principal); M50.30 Other cervical disc degeneration, unspecified cervical region
CPT/HCPCS: 72050

== ENCOUNTER 2024-11-20 06:17 | Day surgery (SDC) | payer MEDICARE, SELFPAY ==
--- OUTSIDE RECORDS SUMMARY | 2024-11-20 06:21 | XMS_ITS | CCD ---
Author Organization [facility] Care Team Providers Care Patient Intake Coordinator Name Role Phone JOHNSON ., DR JAYLON Ruelas Admitting Unavailable ORNELAS ., DR JAYLON Ruelas Attending Unavailable LUÍS, HEAVEN Primary Care Unavailable ORNELAS ., DR JAYLON Ruelas Consulting Unavailable MICHELINE MOLINA Consulting Unavailable ORNELAS ., DR JAYLON Ruelas Admitting Unavailable ORNELAS ., DR JAYLON Ruelas Attending Unavailable [facility] Primary Care Unavailable RODRIGUEZ ., SABRINA Consulting Unavailable ORNELAS ., DR JAYLON Ruelas Admitting Unavailable ORNELAS ., DR JAYLON Ruelas Attending Unavailable [facility] Primary Care Unavailable RODRIGUEZ ., SABRINA Consulting Unavailable [facility] Primary Care Unavailable LAKSHMIPATHY ., NARENDRANATH Admitting Charity vailable LAKSHMIPATHY ., NARENDRANATH Attending Charity vailable LAKSHMIPATHY ., NARENDRANATH Consulting Charity vailable LAKSHMIPATHY ., NARENDRANATH Admitting Charity vailable LAKSHMIPATHY ., NARENDRANATH Attending Charity vailable [facility] Primary Care Unavailable LUÍS, HEAVEN Admitting Unavailable HEAVEN STALEY Attending Unavailable [facility] Primary Care Unavailable DR OSWALDO VALENZUELA [...] Referring Unavailable NAVID, ROBERT Referring Unavailable NAVID, ROEBRT Referring Unavailable NAVID, ROBERT Referring Unavailable NAVID, ROBERT Referring Unavailable NAVID, ROBERT Referring Unavailable DANIEL, DANII Attending Unavailable DARRIUS, TOAY Attending Unavailable NAVID, ROBERT Referring Unavailable NAVID, [...] sources) Codeine; Translations: [CODEINE] Drug Allergy 06-06-2014 [facility] Repository (5 sources) Codeine Drug Allergy 06-06-[address] [facility] (6 sources) Lisinopril; Translations: [LISINOPRIL] Drug Allergy 10-19-[address] [facility] (3 sources) pregabalin; Translations: [PREGABALIN] Drug Allergy 12-01-2023 [facility] Medications Current Medications Medication Drug Class(es) Dates [...] 30 tablet 1 06/08/2023 Active lactobacillus acidophilus [id number] unt oral capsule (5 sources) take 1 [...] Indications: Chronic systolic CHF (congestive heart failure) ([facility]) Take 1 tablet (25 mg total) [...] disease (2 sources) Atherosclerotic heart disease of [place] coronary artery without angina pectoris; Translations: [Atherosclerotic heart disease of [place] coronary artery without angina pectoris] Onset: 08-18-2024 [...] 10-11-2020 Episodic Other aftercare (1 source) Other correction (current) drug therapy; Translations: [OTH LONG-TERM CURRENT DRUG THERAPY] Onset: 05-19-2022 Episodic Other [...] width [Ratio] by Automated count High 11.0-15.0 [facility] Estimated glomerular filtrat ion rate (GFR) non- Americanon 10-09-2024 GFR/1.73 sq M.predicted among non-blacks MDRD (S/P/Bld) [Vol rate/Area] Estimated glomerular filtration rate (GFR) non- Low >=60 mL/min/1.73m 2 [facility] Hematocrit Auto (Bld) [Volum e fraction]on 10-09-2024 Hematocrit (Bld) [Volume fraction] Hematocrit [Volume Fraction] of Blood by Automated count Low 36.0-48.0 [facility] Hemoglobin [Mass/volume] in Bloodon 10-09-2024 Hemoglobin (Bld) [Mass/Vol] Hemoglobin [Mass/volume] in Blood Low 12.0-16.0 [facility] Iron binding capacity [Mass/ volume] in Serum or Plasmaon 10-09-2024 Iron binding capacity [Mass/Vol] Iron binding capacity [Mass/volume] in Serum or Plasma 250.0-450.0 [facility] Iron saturation [Mass Fracti on] in Serum or Plasmaon 10-09-2024 Iron saturation [Mass fraction] Iron saturation [Mass Fraction] in Serum or Plasma [facility] Laboratory - Chemistry and C hemistry - challengeon 10-09-2024 Albumin [Mass/Vol] 3.2 g/dL Low 3.4-5.0 [facility] Calcium [Mass/Vol] 8.9 mg/dL 8.5-10.1 [facility] Chloride [Moles/Vol] 105 mmol/L 98-107 [facility] CO2 [Moles/Vol] 28.4 mmol/L 21.0-32.0 [facility] Creatinine [Mass/Vol] 1.33 mg/dL High 0.55-1.02 [facility] Ferritin [Mass/Vol] 13.0 ng/mL 8.0-252.0 [facility] GFR/1.73 sq M.predicted MDRD (S/P/Bld) [Vol rate/Area] 47 mL/min/{1.73_m2} Low >=60 mL/min/1.73m 2 [facility] Glucose [Mass/Vol] 85 mg/dL 74-106 [facility] Iron [Mass/Vol] 33.0 ug/dL Low 50.0-170.0 [facility] Magnesium [Mass/Vol] 2.1 mg/dL 1.8-2.4 [facility] Potassium [Moles/Vol] 4.6 mmol/L 3.5-5.1 [facility] Sodium [Moles/Vol] 139 mmol/L 136-145 [facility] Urate [Mass/Vol] 6.1 mg/dL High 2.6-6.0 [facility] Urea nitrogen [Mass/Vol] 30.0 mg/dL High 7.0-18.0 [facility] Urea nitrogen/Creatinine [Mass ratio] 22.6 mg/mg [facility] Laboratory - Urinalysison Protein (U) [Mass/Vol] 15.7 mg/dL High <=11.9 [facility] Leukocytes [#/volume] correc halie for nucleated erythrocytes in Blood by Automated counon 10-09-2024 WBC corrected for nucl RBC Auto (Bld) [#/Vol] Leukocytes [#/volume] corrected for nucleated erythrocytes in Blood by Automated coun 4.0-11.0 [facility] MCH Auto (RBC) [Entitic mass ]on 10-09-2024 MCH (RBC) [Entitic mass] MCH [Entitic mass] by Automated count 26.7-34.0 [facility] MCHC Auto (RBC) [Mass/Vol]on 10-09-2024 MCHC (RBC) [Mass/Vol] MCHC [Mass/volume] by Automated count 29.9-35.2 [facility] MCV Auto (RBC) [Entitic vol] on 10-09-2024 MCV (RBC) [Entitic vol] MCV [Entitic volume] by Automated count 81.0-99.0 [facility] No Panel Informationon 10-09 25-Hydroxy Vitamin D Total 46.5 ng/mL [facility] Comment on above: <20 ng/mL Vit D defi cient20-<30 ng/mL Vit D inekphfexijc22-016 ng/mL Vit D sufficient>100 ng/mL Potential Toxicity Parathyroid Hormone (Intact) 76 pg/mL Abnormal 15-65 [facility] Comment on above: Performed at: [address] [id number] Director: Ra Gonzalez PhD, Phone: [phone] Phosphorus Level 3.9 mg/dL 2.6-4.7 [facility] Urine Random Creatinine 82.53 mg/dL 20.00-300.00 [facility] Platelet mean volume Auto (B ld) [Entitic vol]on 10-09-2024 Platelet mean volume (Bld) [Entitic vol] Platelet mean volume [Entitic volume] in Blood by Automated count 9.5-13.5 [facility] Platelets Auto (Bld) [#/Vol] on 10-09-2024 Platelets (Bld) [#/Vol] Platelets [#/volume] in Blood by Automated count 150-450 [facility] RBC Auto (Bld) [#/Vol]on RBC (Bld) [#/Vol] Erythrocytes [#/volume] in Blood by Automated count Low 4.20-5.40 [facility] Serum or plasma anion gap de terminationon 10-09-2024 Anion gap [Moles/Vol] Serum or plasma an ion gap determination [facility] Urine protein/creatinine rat ioon 10-09-2024 Protein/Creatinine (U) [Ratio] Urine protein/creatinine ratio [facility] Erythrocyte distribution wid th Auto (RBC) [Ratio]on 08-18-2024 Erythrocyte distribution width (RBC) [Ratio] Erythrocyte distribution width [Ratio] by Automated count High 11.0-15.0 [facility] Estimated glomerular filtrat ion rate (GFR) non- Americanon 08-18-2024 GFR/1.73 sq M.predicted among non-blacks MDRD (S/P/Bld) [Vol rate/Area] Estimated glomerular filtration rate (GFR) non- Low >=60 mL/min/1.73m 2 [facility] Hematocrit Auto (Bld) [Volum e fraction]on 08-18-2024 Hematocrit (Bld) [Volume fraction] Hematocrit [Volume Fraction] of Blood by Automated count Low 36.0-48.0 [facility] Hemoglobin [Mass/volume] in Bloodon 08-18-2024 Hemoglobin (Bld) [Mass/Vol] Hemoglobin [Mass/volume] in Blood Low 12.0-16.0 [facility] Iron binding capacity [Mass/ volume] in Serum or Plasmaon 08-18-2024 Iron binding capacity [Mass/Vol] Iron binding capacity [Mass/volume] in Serum or Plasma 250.0-450.0 [facility] Iron saturation [Mass Fracti on] in Serum or Plasmaon 08-18-2024 Iron saturation [Mass fraction] Iron saturation [Mass Fraction] in Serum or Plasma [facility] Laboratory - Chemistry and C hemistry - challengeon 08-18-2024 Albumin [Mass/Vol] 3.4 g/dL 3.4-5.0 [facility] Calcium [Mass/Vol] 9.0 mg/dL 8.5-10.1 [facility] Chloride [Moles/Vol] 108 mmol/L High 98-107 [facility] CO2 [Moles/Vol] 26.5 mmol/L 21.0-32.0 [facility] Creatinine [Mass/Vol] 1.36 mg/dL High 0.55-1.02 [facility] Ferritin [Mass/Vol] 17.0 ng/mL 8.0-252.0 [facility] GFR/1.73 sq M.predicted MDRD (S/P/Bld) [Vol rate/Area] 45 mL/min/{1.73_m2} Low >=60 mL/min/1.73m 2 [facility] Glucose [Mass/Vol] 96 mg/dL 74-106 [facility] Iron [Mass/Vol] 71.0 ug/dL 50.0-170.0 [facility] Magnesium [Mass/Vol] 2.4 mg/dL 1.8-2.4 [facility] Potassium [Moles/Vol] 4.7 mmol/L 3.5-5.1 [facility] Sodium [Moles/Vol] 140 mmol/L 136-145 [facility] Urate [Mass/Vol] 6.5 mg/dL High 2.6-6.0 [facility] Urea nitrogen [Mass/Vol] 36.0 mg/dL High 7.0-18.0 [facility] Urea nitrogen/Creatinine [Mass ratio] 26.5 mg/mg [facility] Leukocytes [#/volume] correc halie for nucleated erythrocytes in Blood by Automated counon 08-18-2024 WBC corrected for nucl RBC Auto (Bld) [#/Vol] Leukocytes [#/volume] corrected for nucleated erythrocytes in Blood by Automated coun 4.0-11.0 [facility] MCH Auto (RBC) [Entitic mass ]on 08-18-2024 MCH (RBC) [Entitic mass] MCH [Entitic mass] by Automated count 26.7-34.0 [facility] MCHC Auto (RBC) [Mass/Vol]on 08-18-2024 MCHC (RBC) [Mass/Vol] MCHC [Mass/volume] by Automated count 29.9-35.2 [facility] MCV Auto (RBC) [Entitic vol] on 08-18-2024 MCV (RBC) [Entitic vol] MCV [Entitic volume] by Automated count 81.0-99.0 [facility] No Panel Informationon 08-18 25-Hydroxy Vitamin D Total 45.3 ng/mL [facility] Comment on above: <20 ng/mL Vit D defi cient20-<30 ng/mL Vit D xgqpiaqmlmco02-985 ng/mL Vit D sufficient>100 ng/mL Potential Toxicity Parathyroid Hormone (Intact) 106 pg/mL Abnormal 15-65 [facility] Comment on above: Performed at: [facility] [address] [id number] Director: Ra Gonzalez PhD, Phone: [phone] Phosphorus Level 3.7 mg/dL 2.6-4.7 [facility] Urine Random Creatinine 36.44 mg/dL 20.00-300.00 [facility] Urine Random Total Protein <6.0 mg/dL <=11.9 [facility] Office Visiton 08-18-2024 Follow-up visit [id number] Radha Gutiérrez 1945 F Date Provider Department Center 08/18/2024 [id number] FREEDMAN MAGNUS [place] Family History Problem Relation Age of Onset Heart failure Father Family Status - Relation Status Age at Father Level of Service:85364 SD OFFICE/OUTPATIENT ESTABLISHED LOW MDM 20 MIN Normal [facility] Platelet mean volume Auto (B ld) [Entitic vol]on 08-18-2024 Platelet mean volume (Bld) [Entitic vol] Platelet mean volume [Entitic volume] in Blood by Automated count 9.5-13.5 [facility] Platelets Auto (Bld) [#/Vol] on 08-18-2024 Platelets (Bld) [#/Vol] Platelets [#/volume] in Blood by Automated count 150-450 [facility] RBC Auto (Bld) [#/Vol]on RBC (Bld) [#/Vol] Erythrocytes [#/volume] in Blood by Automated count Low 4.20-5.40 [facility] Serum or plasma anion gap de terminationon 08-18-2024 Anion gap [Moles/Vol] Serum or plasma an ion gap determination [facility] Office Visiton 03-21-2024 Follow-up visit [id number] Radha Gutiérrez 1945 F Date Provider Department [place] 03/21/2024 ROBERT GEE Family History Problem Relation Age of Onset Heart failure Father Family Status - Relation Status Age at Father Level of Service:03138 SD OFFICE/OUTPATIENT ESTABLISHED LOW MDM 20 MIN [facility] 36on 02-11-2024 36 Tried to contact patient and she has no VM set up. Will try again on Wednesday morning. [facility] Documentationon 02-11-2024 Documentation [id number] Radha Gutiérrez 1945 Provider Department [place] 02/11/2024 TOYA VALENCIA Viky Family History Problem Relation Age of Onset Heart failure Father Family Status - Relation Status Age at Father [facility] 36on 02-08-2024 36 Patient had her [...] Dr. Madden until 03/21. Please advise. Thanks. [facility] Telephoneon 02-08-2024 Telephone [id number] Radha Gutiérrez 1945 F Date Provider Department Center 02/08/2024 [id number], CARIDAD BH CARD [facility] Family History Problem Relation Age of Onset Heart failure Father Family Status - Relation Status Age at Father [facility] Office Visiton 12-01-2023 Follow-up visit [id number] Radha Gutiérrez 1945 F Date Provider Department Center 12/01/2023 [facility] Family History Problem Relation Age of Onset Heart failure Father Family Status - Relation Status Age at Father Level of Service:88798 SD POSTOP FOLLOW UP VISIT RELATED TO ORIGINAL PX [facility] HPon 11-01-2023 [facility] Electrophysiology Consult Note Reason for [...] [facility] bleed. [facility] [...] mg tab (more content not included)... Normal [facility] NURSNOTEon 11-01-2023 NURSNOTE RN educated pt on d/ c instructions. RN encouraged pt to voice any questions or concerns. Pt verbalizes no questions or concerns at this time. Normal [facility] INSULINon 09-23-2022 Insulin 7.9 uIU/mL Normal 2.6-24.[address] [facility] Comment on above: Performed By: #### I NSULIN ####[facility] [address] [place], [place] [address]Dr. Ravin Dior CBC AUTO DIFFon 09-22-2022 BASO # 0.0 103/ul Normal 0.0-0.[address] [facility] Comment on above: Performed By: #### C BC ####[facility] [address] [place] [address]DrViky Dior Basophils/100 WBC (Bld) 0.4 % Normal 0.2-2.0 [facility] Comment on above: Performed By: #### C BC ####[facility] [address] [place] [address]Dr. Ravin Dior EO # 0.6 103/ul Normal 0.0-0.7 [facility] Comment on above: Performed By: #### C BC ####[facility] [address] [place], [place] [address]Dr. Ravin Dior Eosinophils/100 WBC (Bld) 6.6 % Normal 0.9-7.0 [facility] Comment on above: Performed By: #### C BC ####[facility] I[address] [place], [place] [address]Dr. Ravin Dior Erythrocyte distribution width (RBC) [Ratio] 16.2 % Critically high 11.0-15.[address] [facility] Comment on above: Performed By: #### C BC ####[facility] Tipmxdoyji[address] [place], [place] [address]Dr. Ravin Dior Hematocrit (Bld) [Volume fraction] 43.3 % Normal 36.0-48.0 [facility] Comment on above: Performed By: #### C BC ####[facility] [address] [place], [place] [address]Dr. Ravin Dior Hemoglobin (Bld) [Mass/Vol] 13.4 g/dL Normal 12.0-16.0 [facility] Comment on above: Performed By: #### C BC ####[facility] [address] [place], [place] [address]Dr. Ravin Dior IG # 0.05 10e3/ul Critically high 0.00-0.03 [facility] Comment on above: Performed By: #### C BC ####[facility] W[address]co[address] [place], [place] [address]Dr. Ravin Dior IG % 0.5 % Normal 0.0-0.5 [facility] Comment on above: Performed By: #### C BC ####[facility] [address] [place], [place] [address]Dr. Ravin Dior LYMPH # 2.1 103/ul Normal 1.2-3.8 [facility] Comment on above: Performed By: #### C BC ####[facility] [address] [place] [address]Dr. Ravin Dior Lymphocytes/100 WBC (Bld) 23.1 % Normal 20.5-60.0 [facility] Comment on above: Performed By: #### C BC ####[facility] [address] [place] [address]Dr. Ravin Dior MANUAL DIFF REQ NO Normal [facility] Comment on above: Performed By: #### C BC ####[facility] [address] [place] [address]Dr. Ravin Dior MCH (RBC) [Entitic mass] 29.5 pg Normal 26.7-34.0 [facility] Comment on above: Performed By: #### C BC ####[facility] Hom[address]wvn[address] [place], [place] [address]Dr. Novalilliana Dior MCHC (RBC) [Mass/Vol] 30.9 g/dL Normal 29.9-35.2 [facility] Comment on above: Performed By: #### C BC ####[facility] [address] [place], [place] [address]Dr. Ravin Dior MCV (RBC) [Entitic vol] 95.4 fL Normal 81.0-99.0 [facility] Comment on above: Performed By: #### C BC ####[facility] [address] [place] [address]Dr. Ravin Dior MONO # 0.5 103/ul Normal 0.3-0.8 [facility] Comment on above: Performed By: #### C BC ####[facility] I[address] [place], [place] [address]Dr. Ravin Dior Monocytes/100 WBC (Bld) 5.8 % Normal 1.7-12.0 [facility] Comment on above: Performed By: #### C BC ####[facility] Cov[address]ouju[address] [place], [place] [address]Dr. Novalilliana Ovi NEUT # 5.8 103/ul Normal 1.4-6.5 [facility] Comment on above: Performed By: #### C BC ####[facility] [address] [place] [address]Dr. Ravin Ovi Neutrophils/100 WBC (Bld) 63.6 % Normal 43.0-75.0 [facility] Comment on above: Performed By: #### C BC ####[facility] [address] [place] [address]Dr. Novalilliana Ovi Platelet mean volume (Bld) [Entitic vol] 10.7 fL Normal 9.5-13.5 [facility] Comment on above: Performed By: #### C BC ####[facility] [address] [place] [address]DrViky Dior PLT 223 103/ul Normal 150-450 [facility] Comment on above: Performed By: #### C BC ####[facility] [address] [place] [address]Dr. Ravin Dior RBC 4.54 106/ul Normal 4.20-5.40 [facility] Comment on above: Performed By: #### C BC ####[facility] [address] [place] [address]DrViky Dior WBC 9.2 103/ul Normal 4.0-11.0 [facility] Comment on above: Performed By: #### C BC ####[facility] [address] [place] [address]DrViky Dior FREE THYROXINE INDEX T7on FTI 2.44 Normal 1.30-4.50 [facility] Comment on above: Performed By: #### C MP, T7, TSH, LIPID #### [facility] [address] [place] [address] [address] Ravin Dior T3U 33.0 % Normal 30.0-39.0 [facility] Comment on above: Performed By: #### C MP, T7, TSH, LIPID #### [facility] [address] [place] [address] [address] Ravin Dior T4 [Mass/Vol] 7.40 ug/dL Normal 4.80-13.90 [facility] Comment on above: Performed By: #### C MP, T7, TSH, LIPID #### [facility] [address] [place], [place] [address] Dr. Ravin Dior GLYCOHEMOGLOBIN A1Con 2022 ADA RECOMMENDATION SEE BELOW Normal [facility] Comment on above: Result Comment: ADA RECOMMENDED LIMIT 4.0 - 6.0 ADA THERAPEUTIC TARGET < 7.0 ACTION SUGGESTED > 7.0 Performed By: #### A 1C ####[facility] [address] [place] [address]DrViky Dior Glucose [Mass/Vol] 105 mg/dL Normal [facility] Comment on above: Performed By: #### A 1C ####[facility] [address] [place] [address]DrViky Dior HbA1c (Bld) [Mass fraction] 5.3 % Normal 4.5-6.[address] [facility] Comment on above: Performed By: #### A 1C ####[facility] [address] [place] [id number] Dior IRONon 09-22-2022 Iron [Mass/Vol] 81.0 ug/dL Normal 50.0-170.0 [facility] Comment on above: Performed By: #### I SEAMUS ####[facility] [address] [place] [address]DrViky Dior LIPID PROFILEon 09-22-2022 CHOL-HDL RATIO NORM SEE BELOW Normal [facility] Comment on above: Result Comment: 3.3 - 4.4 LOW RISK 4.4 - 7.1 AVERAGE RISK 7.1 - 11.0 MODERATE RISK >11.0 HIGH RISK Performed By: #### C MP, T7, TSH, LIPID ####[facility] [address] [place] [id number] Dior Cholesterol [Mass/Vol] 159 mg/dL Normal <=[address] [facility] Comment on above: Performed By: #### C MP, T7, TSH, LIPID ####[facility] [address] [place], [place] [address]Pn. Ravin Dior Cholesterol in HDL [Mass/Vol] 47 mg/dL Normal 40-60 [facility] Comment on above: Performed By: #### C MP, T7, TSH, LIPID ####[facility] [address] [place] [id number]. Ravin Dior Cholesterol in LDL [Mass/Vol] 96.4 mg/dL Normal [facility] Comment on above: Performed By: #### C MP, T7, TSH, LIPID ####[facility] [address] [place] [id number]. Ravin Dior Cholesterol.total/Cho lesterol in HDL [Mass ratio] 3.4 {ratio} Normal [facility] Comment on above: Performed By: #### C MP, T7, TSH, LIPID ####[facility] [address] [place] [id number]. Ravin Dior HDL NORMAL > or = 60 mg/dl - LO W CARDIOVASCULAR RISK <40 mg/dl - HIGH CARDIOVASCULAR RISK Normal [facility] Comment on above: Performed By: #### C MP, T7, TSH, LIPID ####[facility] [address] [place] [address]Dr. Ravin Dior LDL CALC NORMAL SEE BELOW Normal [facility] Comment on above: Result Comment: <100 mg/dl OPTIMAL 100 - 129 mg/dl NEAR OR ABOVE OPTIMAL 130 - 159 mg/dl BORDERLINE HIGH 160 - 189 mg/dl HIGH >190 mg/dl VERY HIGH Performed By: #### C MP, T7, TSH, LIPID ####[facility] [address] [place] [id number]. Ravin Dior Triglyceride [Mass/Vol] 78 mg/dL Normal <=150 [facility] Comment on above: Performed By: #### C MP, T7, TSH, LIPID ####[facility] [address] [place] [id number]. Ravin Dior VLDL CALC 15.6 mg/dL Normal [facility] Comment on above: Performed By: #### C MP, T7, TSH, LIPID ####[facility] [address] [place], [place] [address]UbDr. Ravin Dior MG MAMM SCREEN 3D NIKOS CADon 09-22-2022 MG MAMM SCREEN 3D NIKOS CAD Patient: RADHA GUTIÉRREZ Exam Date: 09/22/2022 : 1945 Gender:F Ordering : [facility] ST[facility]Y [facility] Admission #: [id number] Family : Order #: [id number] CLICK HERE TO VIEW EXAM RADIOLOGY REPORT [...] Treatments None Family Cancers None LOCATION: [facility] BREAST COMPOSITION: Almost entirely fatty. [...] Valenzuela M.D. on 09/22/2022 at 17:[address] [facility] PROF 14(COMP METB)on 023 Albumin [Mass/Vol] 3.3 g/dL Critically low 3.4-5.0 [facility] Comment on above: Performed By: #### C MP, T7, TSH, LIPID #### [facility] [address] [place] [address] [address] Ravin Dior Albumin/Globulin [Mass ratio] 0.7 {ratio} Normal [facility] Comment on above: Performed By: #### C MP, T7, TSH, LIPID #### [facility] [address] [place] [address] [address] Ravin Dior ALP [Catalytic activity/Vol] 207 U/L Critically high 46-[address] [facility] Comment on above: Performed By: #### C MP, T7, TSH, LIPID #### [facility] [address] [address] [address] Ravin Dior ALT [Catalytic activity/Vol] 47 U/L Normal 14-[address] [facility] Comment on above: Performed By: #### C MP, T7, TSH, LIPID #### [facility] [address] [place] [address] Dr. Ravin Dior Anion gap [Moles/Vol] 11.5 mmol/L Normal [facility] Comment on above: Performed By: #### C MP, T7, TSH, LIPID #### [facility] [address] [place] [address] Dr. Ravin Dior AST [Catalytic activity/Vol] 35 U/L Normal 15-[address] [facility] Comment on above: Performed By: #### C MP, T7, TSH, LIPID #### [facility] [address] [place] [address] Dr. Ravin Dior Bilirubin [Mass/Vol] 0.6 mg/dL Normal 0.2-1.[address] [facility] Comment on above: Performed By: #### C MP, T7, TSH, LIPID #### [facility] [address] [place] [address] Dr. Ravin Dior Calcium [Mass/Vol] 9.2 mg/dL Normal 8.5-10.1 [facility] Comment on above: Performed By: #### C MP, T7, TSH, LIPID #### [facility] [address] [place] [address] Dr. Ravin Dior Chloride [Moles/Vol] 109 mmol/L Critically high 98-[address] [facility] Comment on above: Performed By: #### C MP, T7, TSH, LIPID #### [facility] [address] [address] [address] Ravin Dior CO2 [Moles/Vol] 27.7 mmol/L Normal 21.0-32.0 [facility] Comment on above: Performed By: #### C MP, T7, TSH, LIPID #### [facility] [address] [address] [address] Ravin Dior Creatinine [Mass/Vol] 0.94 mg/dL Normal 0.55-1.[address] [facility] Comment on above: Performed By: #### C MP, T7, TSH, LIPID #### [facility] [address] [place] [address] Dr. Ravin Dior EGFR-AF SIERRA LEONEAN >60 Normal >=60 [facility] Comment on above: Performed By: #### C MP, T7, TSH, LIPID #### [facility] [address] [place] [address] Dr. Ravin Dior EGFR-NON AF SIERRA LEONEAN 58 mL/min/1.73m2 Critically low >=[address] [facility] Comment on above: Performed By: #### C MP, T7, TSH, LIPID #### [facility] [address] [place] [address] Dr. Ravin Dior Globulin (S) [Mass/Vol] 4.7 g/dL Normal [facility] Comment on above: Performed By: #### C MP, T7, TSH, LIPID #### [facility] [address] [place] [address] Dr. Ravin iDor Glucose [Mass/Vol] 95 mg/dL Normal 74-106 [facility] Comment on above: Performed By: #### C MP, T7, TSH, LIPID #### [facility] [address] [place] [address] Dr. Ravin Dior Potassium [Moles/Vol] 4.2 mmol/L Normal 3.5-5.[address] [facility] Comment on above: Performed By: #### C MP, T7, TSH, LIPID #### [facility] [address] [place] [address] Dr. Ravin Dior Protein [Mass/Vol] 8.0 g/dL Normal 6.4-8.2 [facility] Comment on above: Performed By: #### C MP, T7, TSH, LIPID #### [facility] [address] [place] [address] Dr. Ravin Dior Sodium [Moles/Vol] 144 mmol/L Normal 136-145 [facility] Comment on above: Performed By: #### C MP, T7, TSH, LIPID #### [facility] [address] [address] [address] Ravin Dior Urea nitrogen [Mass/Vol] 21.0 mg/dL Critically high 7.0-18.[address] [facility] Comment on above: Performed By: #### C MP, T7, TSH, LIPID #### [facility] [address] [address] [address] Ravin Dior Urea nitrogen/Creatinine [Mass ratio] 22.3 mg/mg Normal [facility] Comment on above: Performed By: #### C MP, T7, TSH, LIPID #### [facility] [address] [address] [address] Ravin Dior TSHon 09-22-2022 TSH 2.085 uIU/mL Normal 0.358-3.740 [facility] Comment on above: Performed By: #### C MP, T7, TSH, LIPID #### [facility] [address] [address] ABD/PELVIS WO CONon [...] was used, including Automated Exposure Control. FINDINGS: Slot Router: No pertinent findings, which are not already [...] the largest most superior hernia. Normal [facility] CBC AUTO DIFFon 05-17-2022 BASO # 0.0 103/ul Normal 0.0-0.1 [facility] Comment on above: Performed By: #### C BC ####[facility] [address] [place], [place] [address]TwViky Dior Basophils/100 WBC (Bld) 0.2 % Normal 0.2-2.0 [facility] Comment on above: Performed By: #### C BC ####[facility] [address] [place], [place] [address]UhViky Dior EO # 0.1 103/ul Normal 0.0-0.7 [facility] Comment on above: Performed By: #### C BC ####[facility] [address] [id number]. Ravin Dior Eosinophils/100 WBC (Bld) 1.4 % Normal 0.9-7.0 [facility] Comment on above: Performed By: #### C BC ####[facility] [address] [address]Dr. Ravin Dior Erythrocyte distribution width (RBC) [Ratio] 13.7 % Normal 11.0-15.[address] [facility] Comment on above: Performed By: #### C BC ####[facility] [address] [place], [place] [address]Dr. Ravin Dior Hematocrit (Bld) [Volume fraction] 44.4 % Normal 36.0-48.[address] [facility] Comment on above: Performed By: #### C BC ####[facility] [address] [place], [place] [address]Dr. Ravin Dior Hemoglobin (Bld) [Mass/Vol] 14.7 g/dL Normal 12.0-16.[address] [facility] Comment on above: Performed By: #### C BC ####[facility] [address] [place], [place] [address]Dr. Ravin Dior IG # 0.05 10e3/ul Critically high 0.00-0.03 [facility] Comment on above: Performed By: #### C BC ####[facility] [address] [place], [place] [address]Dr. Ravin Dior IG % 0.5 % Normal 0.0-0.5 [facility] Comment on above: Performed By: #### C BC ####[facility] [address] [place], [place] [address]Dr. Ravin Dior LYMPH # 1.7 103/ul Normal 1.2-3.8 [facility] Comment on above: Performed By: #### C BC ####[facility] [address] [place], [place] [address]Dr. Ravin Dior Lymphocytes/100 WBC (Bld) 17.1 % Critically low 20.5-60.0 [facility] Comment on above: Performed By: #### C BC ####[facility] [address] [address]Dr. Ravin Dior MANUAL DIFF REQ NO Normal [facility] Comment on above: Performed By: #### C BC ####[facility] [address] [id number]. Ravin Dior MCH (RBC) [Entitic mass] 30.7 pg Normal 26.7-34.[address] [facility] Comment on above: Performed By: #### C BC ####[facility] [address] [address]Dr. Ravin Dior MCHC (RBC) [Mass/Vol] 33.1 g/dL Normal 29.9-35.2 [facility] Comment on above: Performed By: #### C BC ####[facility] [address] [place], [place] [address]Dr. Ravin Dior MCV (RBC) [Entitic vol] 92.7 fL Normal 81.0-99.[address] [facility] Comment on above: Performed By: #### C BC ####[facility] [address] [place], [place] [address]Dr. Ravin Dior MONO # 0.6 103/ul Normal 0.3-0.8 [facility] Comment on above: Performed By: #### C BC ####[facility] [address] [address]Dr. Ravin Dior Monocytes/100 WBC (Bld) 5.7 % Normal 1.7-12.0 [facility] Comment on above: Performed By: #### C BC ####[facility] [address] [place], [place] [address]DrViky Dior NEUT # 7.7 103/ul Critically high 1.4-6.5 [facility] Comment on above: Performed By: #### C BC ####[facility] [address] [address]Dr. Ravin Dior Neutrophils/100 WBC (Bld) 75.1 % Critically high 43.0-75.0 [facility] Comment on above: Performed By: #### C BC ####[facility] [address] [address]Dr. Ravin Dior Platelet mean volume (Bld) [Entitic vol] 10.4 fL Normal 9.5-13.[address] [facility] Comment on above: Performed By: #### C BC ####[facility] [address] [address]Dr. Ravin Dior PLT 294 103/ul Normal 150-[address] [facility] Comment on above: Performed By: #### C BC ####[facility] [address] [address]Dr. Ravin Dior RBC 4.79 106/ul Normal 4.20-5.[address] [facility] Comment on above: Performed By: #### C BC ####[facility] [address] [address]Dr. Ravin Dior WBC 10.2 103/ul Normal 4.0-11.[address] [facility] Comment on above: Performed By: #### C BC ####[facility] [address] [place], [place] [address]DrViky Dior ER URINE PROFILEon 2 Bilirubin Ql (U) Negative Normal NEGATIVE [facility] Comment on above: Performed By: #### DENY KAUFFMANRO #### [facility] [address] [place] [address] Dr. Ravin Dior Clarity (U) CLEAR Normal CLEAR [facility] Comment on above: Performed By: #### DENY KAUFFMANRO #### [facility] [address] [place] [address] Dr. Ravin Dior Color (U) LT. YELLOW Normal YELLOW [facility] Comment on above: Performed By: #### DENY KAUFFMANRO #### [facility] [address] [place] [address] Dr. Ravin PARKER A micrscopic examination will be performed if indicated. Normal [facility] Comment on above: Performed By: #### DENY KAUFFMANRO #### [facility] [address] [place] [address] Dr. Ravin Dior Glucose Ql (U) Negative Normal NEGATIVE [facility] Comment on above: Performed By: #### DENY KAUFFMANRO #### [facility] [address] [place] [address] Dr. Ravin Dior Hemoglobin Ql (U) Negative Normal NEGATIVE [facility] Comment on above: Performed By: #### DENY KAUFFMANRO #### [facility] [address] [place] [address] Dr. Ravin Dior Ketones Ql (U) TRACE Abnormal NEGATIVE [facility] Comment on above: Performed By: #### DENY KAUFFMANRO #### [facility] [address] [place] [address] Dr. Ravin Dior LEUKOCYTES SMALL Abnormal NEGATIVE [facility] Comment on above: Performed By: #### DENY KAUFFMANRO #### [facility] [address] [place] [address] Dr. Ravin Dior Nitrite Ql (U) Negative Normal NEGATIVE [facility] Comment on above: Performed By: #### DENY KAUFFMANRO #### [facility] [address] [place] [address] Dr. Ravin Dior pH (U) 6.0 [pH] Normal 5-[address] [facility] Comment on above: Performed By: #### DENY KAUFFMANRO #### [facility] [address] [place] [address] Dr. Ravin Dior SPEC GRAVITY 1.010 Normal 1.005-<=1.025 [facility] Comment on above: Performed By: #### DENY KAUFFMANRO #### [facility] [address] [place] [address] Dr. Ravin Dior UA PROTEIN Negative Normal NEGATIVE/ TRACE [facility] Comment on above: Performed By: #### DENY KAUFFMANRO #### [facility] [address] [place] [address] Dr. Ravin Dior UR MICRO IND INDICATED Normal [facility] Comment on above: Performed By: #### E DENY SOUTHRO #### [facility] [address] [address] [address] Ravin Dior Urobilinogen Qn (U) 0.2 {Chandler'U}/dL Normal 0.2 - 1. [address] [facility] Comment on above: Performed By: #### DENY KAUFFMANRO #### [facility] [address] [address] [address] Ravin Dior LACTATE/LACTIC ACIDon 2021 Lactate [Moles/Vol] 1.3 mmol/L Normal 0.4-1.9 [facility] Comment on above: Performed By: #### L ACT ####[facility] [address] [address]Dr. Ravin Dior LIPASEon 05-17-2022 Lipase [Catalytic activity/Vol] 63.0 U/L Critically low 73.0-393.[address] [facility] Comment on above: Performed By: #### C MP, LIPA #### [facility] [address] [address] [address] Ravin Dior PROF 14(COMP METB)on 022 Albumin [Mass/Vol] 3.4 g/dL Normal 3.4-5.0 [facility] Comment on above: Performed By: #### C MP, LIPA #### [facility] [address] [address] [address] Ravin Dior Albumin/Globulin [Mass ratio] 0.8 {ratio} Normal [facility] Comment on above: Performed By: #### C MP, LIPA #### [facility] [address] [address] [address] Ravin Dior ALP [Catalytic activity/Vol] 143 U/L Critically high 46-116 [facility] Comment on above: Performed By: #### C MP, LIPA #### [facility] [address] [address] [address] Ravin Dior ALT [Catalytic activity/Vol] 29 U/L Normal 14-59 [facility] Comment on above: Performed By: #### C MP, LIPA #### [facility] [address] [address] [address] Ravin Dior Anion gap [Moles/Vol] 7.6 mmol/L Normal [facility] Comment on above: Performed By: #### C MP, LIPA #### [facility] [address] [address] [address] Ravin Dior AST [Catalytic activity/Vol] 39 U/L Critically high 15-[address] [facility] Comment on above: Performed By: #### C MP, LIPA #### [facility] [address] [address] [address] Ravin Dior Bilirubin [Mass/Vol] 0.7 mg/dL Normal 0.2-1.[address] [facility] Comment on above: Performed By: #### C MP, LIPA #### [facility] [address] [place] [address] Dr. Ravin Dior Calcium [Mass/Vol] 9.1 mg/dL Normal 8.5-10.1 [facility] Comment on above: Performed By: #### C MP, LIPA #### [facility] [address] [address] [address] Ravin Dior Chloride [Moles/Vol] 102 mmol/L Normal 98-[address] [facility] Comment on above: Performed By: #### C MP, LIPA #### [facility] [address] [address] [address] Ravin Dior CO2 [Moles/Vol] 31.1 mmol/L Normal 21.0-32.0 [facility] Comment on above: Performed By: #### C MP, LIPA #### [facility] [address] [address] [address] Ravin Dior Creatinine [Mass/Vol] 0.88 mg/dL Normal 0.55-1.[address] [facility] Comment on above: Performed By: #### C MP, LIPA #### [facility] [address] [address] [address] Ravin Dior EGFR-AF SIERRA LEONEAN >60 Normal >=60 [facility] Comment on above: Performed By: #### C MP, LIPA #### [facility] [address] [address] [address] Ravin Dior EGFR-NON AF SIERRA LEONEAN >60 Normal >=[address] [facility] Comment on above: Performed By: #### C MP, LIPA #### [facility] [address] [address] [address] Ravin Dior Globulin (S) [Mass/Vol] 4.5 g/dL Normal [facility] Comment on above: Performed By: #### C MP, LIPA #### [facility] [address] [address] [address] Ravin Dior Glucose [Mass/Vol] 100 mg/dL Normal 74-106 [facility] Comment on above: Performed By: #### C MP, LIPA #### [facility] [address] [address] [address] Ravin Dior Potassium [Moles/Vol] 3.7 mmol/L Normal 3.5-5.[address] [facility] Comment on above: Performed By: #### C MP, LIPA #### [facility] [address] [address] [address] Ravin Dior Protein [Mass/Vol] 7.9 g/dL Normal 6.4-8.2 [facility] Comment on above: Performed By: #### C MP, LIPA #### [facility] [address] [address] [address] Ravin Dior Sodium [Moles/Vol] 137 mmol/L Normal 136-145 [facility] Comment on above: Performed By: #### C MP, LIPA #### [facility] [address] [address] [address] Ravin Dior Urea nitrogen [Mass/Vol] 12.0 mg/dL Normal 7.0-18.[address] [facility] Comment on above: Performed By: #### C MP, LIPA #### [facility] [address] [address] [address] Ravin Dior Urea nitrogen/Creatinine [Mass ratio] 13.6 mg/mg Normal [facility] Comment on above: Performed By: #### C MP, LIPA #### [facility] [address] [address] [address] Ravin Dior URINE MICROSCOPIC ONLYon BACTERIA NONE SEEN Normal NONE SEEN [facility] Comment on above: Performed By: #### E RUR, UMICRO #### [facility] [address] [place] [address] Dr. Ravin Dior Bacteria identified Cx Nom (U) NOT INDICATED Normal [facility] Comment on above: Performed By: #### E RUR, UMICRO #### [facility] [address] [place] [address] Dr. Ravin Dior CAST NONE SEEN Normal NONE SEEN [facility] Comment on above: Performed By: #### E RUR, UMICRO #### [facility] [address] [place] [address] Dr. Ravin Dior Crystals LM Nom (Urine sed) NONE SEEN Normal NONE SEEN [facility] Comment on above: Performed By: #### E RUR, UMICRO #### [facility] [address] [place] [address] Dr. Ravin Dior Epithelial cells LM Ql (Urine sed) FEW Abnormal NONE SEEN /RARE [facility] Comment on above: Performed By: #### E RUR, UMICRO #### [facility] [address] [place] [address] Dr. Ravin Dior MUCOUS NONE SEEN Normal NONE SEEN [facility] Comment on above: Performed By: #### E RUR, UMICRO #### [facility] [address] [place] [address] Dr. Ravin Dior RBC NONE SEEN Abnormal 0-2 [facility] Comment on above: Performed By: #### E RUR, UMICRO #### [facility] [address] [place] [address] Dr. Ravin Dior WBC 0-2 Abnormal NONE SEEN [facility] Comment on above: Performed By: #### E RUR, UMICRO #### [facility] [address] [place] [address] Dr. Ravin Dior Ambulatory Clinical Summaryo n 07-24-2020 Ambulatory Clinical Summary {[id number] Normal Travis [facility] Gastroenterology Office/Clin ic Noteon 07-24-2020 Gastroenterology [...] course, # 28 cap(s), Refills(s) 0, [id number], 165, cm, 07/24/20 12:03:00 EST, Height/Length Dosing, 95.9, kg, 07/24/20 12:03:00 EST, Weight Dosing metronidazole, 250 mg = 1 tab(s), Oral, TID, X 7 day(s), # 21 tab(s), Refills(s) 0, Pharmacy: [facility]/pharmacy #[id number], 165, cm, 07/24/20 12:03:00 EST, Height/Length [...] water, # 160 cap(s), Refills(s) 1, Pharmacy: [facility]/pharmacy #[id number], 165, cm, 07/24/20 12:03:00 EST, Height/Length Dosing, 95.9, kg, 07/24/20 12:03:... Orders: pantoprazole, 40 mg = 2 tab(s), Oral, Daily, X 90 day(s), # 180 tab(s), Refills(s) 3, Pharmacy: [facility]/pharmacy #[id number], 165, cm, 07/24/20 12:03:00 EST, Height/Length Dosing, 95.9, kg, 07/24/20 12:03:00 EST, Weight Dosing Follow-up With When Contact Information Isabelle Ramirez MD In 12 months [address] [place] [address]- Additional Instructions: Problem List/Past Medical [...] 12/16/2018 Exercise - Occasional exercise, 12/16/2018 Other Bnwosdyw-9-2 cups blair;y, 12/16/2018 Substance Abuse - Denies Substance Abuse, 12/16/2018 Tobacco Never (less than 100 in lifetime) Tobacco Use:., 07/24/2020 Never (less than 100 in lifetime) Tobacco Use:. Never Smokeless Tobacco Use:., 02/01/2019 [facility] Comment on above: Result Comment: Elec tronically Signed By: Taylor Mccauley MD, Isabelle\.br\Date and Time Signed: 07/24/20 13:13 EST Auth for Release of Medical Recordson 02-09-2020 Auth for Release of Medical Records [id number] [facility] Patient Letter FTon 2019 Patient Letter [facility] January 24, 2020 RADHA GUTIÉRREZ [address] [place] [address] BROCKRADHA 1945 Dear Radha, This is a reminder that you are due for an appointment with Dr. Garland or Dr. Mccauley. Please call [facility] at [phone] to schedule an appointment at your earliest convenience. Thank you, [facility] Normal [facility] Vital Signs Date Time Vital Sign Value Performing Clinician Chuckie osborne 10-19-2024 13:15-0400 Body height 165.1 cm [facility] 10-19-2024 13:15-0400 Body mass index (BMI) [Ratio] 32.3 kg/m2 [facility] 10-19-2024 13:15-0400 Body temperature 97.5 [degF] [facility] 10-19-2024 13:15-0400 Body weight 88.11 kg [facility] 10-19-2024 13:15-0400 Diastolic blood pressure 64 mm[Hg] [facility] 10-19-2024 13:15-0400 Heart rate 75 /min [facility] 10-19-2024 13:15-0400 Respiratory rate 18 /min [facility] 10-19-2024 13:15-0400 SaO2% (BldA) [Mass fraction] 97 % [facility] 10-19-2024 13:15-0400 Systolic blood pressure 99 mm[Hg] [facility] 07-27-2024 10:30-0500 Diastolic blood pressure 68 mm[Hg] [facility] 07-27-2024 10:30-0500 Systolic blood pressure 96 mm[Hg] [facility] 07-27-2024 10:13-0500 Body height 165.1 cm [facility] 07-27-2024 10:13-0500 Body mass index (BMI) [Ratio] 31.3 kg/m2 [facility] 07-27-2024 10:13-0500 Body weight 85.33 kg [facility] 07-27-2024 10:13-0500 Heart rate 85 /min [facility] 07-27-2024 10:13-0500 Respiratory rate 16 /min [facility] 07-27-2024 10:13-0500 SaO2% (BldA) [Mass fraction] 98 % [facility] Encounters Encounter Date Encounter Type Care Provider Facility Start: 10-20-2024 ambulatory [facility] Start: 10-19-2024 End: 10-19-2024 ambulatory [facility] Work Phone: Start: 10-19-2024 End: 10-19-2024 Patient encounter procedure [facility] Work Phone: Start: 10-09-2024 Non-patient / Non-visit [facility] Work Phone: Start: 09-11-2024 ambulatory [facility] Start: 08-18-2024 End: 08[facility]18[facility]20[facility] Start: 08-18-2024 Non-patient / Non-visit [facility] Work Phone: Start: 08-15-2024 ambulatory [facility] Start: 08-14-2024 End: 08-14-2024 ambulatory [facility] Start: 08-09-2024 ambulatory [facility] Start: 07-27-2024 End: 07-27-2024 ambulatory [facility] Work Phone: Start: 07-27-2024 End: 07-27-2024 Patient encounter procedure [facility] Nephrology Kevin Work Phone: Start: 07-11-2024 ambulatory [facility] Start: 06-15-2024 ambulatory [facility] Start: 05-22-2024 ambulatory [facility] Start: 05-18-2024 ambulatory [facility] Start: 05-16-2024 ambulatory [facility] Start: 05-15-2024 ambulatory [facility] Start: 05-04-2024 ambulatory [facility] Start: 04-20-2024 ambulatory [facility] Start: 03-27-2024 ambulatory [facility] Start: 03-21-2024 End: 03-21-2024 ambulatory [facility] Start: 03-17-2024 ambulatory [facility] Start: 02-08-2024 End: 02-08-2024 ambulatory [facility] Start: 01-18-2024 ambulatory [facility] Start: 01-17-2024 End: 01-17-2024 ambulatory CARIDAD GARNER Not Available Start: 01-11-2024 End: 01-11-2024 ambulatory SANDIE PAGE Not Available Start: 01-05-2024 ambulatory [facility] Start: 12-28-2023 End: 12-28-2023 Telephone encounter [facility] Start: 12-20-2023 End: 12-20-2023 ambulatory SANDIE PAGE Not Available Start: 12-16-2023 ambulatory [facility] Start: 12-06-2023 End: 12-06-2023 Refill Sonia Tenorio RN [facility] Comment on above: Med Refill Start: 12-01-2023 End: 12-01-2023 ambulatory TYOA RIZO [facility] Start: 11-25-2023 ambulatory [facility] Start: 11-25-2023 Encounter for preprocedural cardiovascular examination [facility] Start: 11-24-2023 ambulatory [facility] Start: 11-23-2023 ambulatory [facility] Start: 11-11-2023 End: 11-11-2023 ambulatory OSWALDO GARCÍA Not Available Start: 11-01-2023 ambulatory [facility] Start: 11-01-2023 End: 11-01-2023 ambulatory [facility] Start: 09-10-2023 End: 09-10-2023 Refill Katelynnnisa Erwin DIRECTOR STERILE PROCESSING-LOGISTICS ASSOCIATE Work Phone: [facility] Comment on above: Med Refill Start: 06-11-2023 Refill Mike means MD Work Phone: [facility] Comment on above: Med Refill Start: 06-05-2023 Refill Vickitej horne DIRECTOR STERILE PROCESSING-LOGISTICS ASSOCIATE Work Phone: [facility] Comment on above: Med Refill Start: 09-22-2022 End: 09-23-2022 ambulatory HEAVEN STALEY Facility:[facility]1 Start: 07-23-2022 End: 07-24-2022 ambulatory HEAVEN STLAEY Facility:[facility] Start: 05-17-2022 End: 05-17-2022 ambulatory HEAVEN STALEY Facility:[facility] Start: 03-26-2022 End: 03-27-[address] JAYLON ORNELAS . Facility:[facility] Start: 12-24-2021 End: 12-25-[address] JAYLON ORNELAS . Facility:[facility] Start: 11-04-2021 End: 11-04-[address] JAYLON ORNELAS . Facility:[facility] Plan of Treatment Date Care Activity Detail Author Start: 01-30-2024 Influenza vaccination Influenza Vacc ine [facility] Start: 08-25-2023 Adult BMI Screening Adult BMI Screen ing [facility] Start: 08-25-2023 Tobacco Screening Tobacco Screening [facility] Start: 01-29-2023 COVID-19 Vaccine ( season) COVID-19 Vaccine ( season) [facility] Start: 01-29-2023 Influenza vaccination Influenza Vacc ine [facility] Start: 11-03-2022 ambulatory Ambulatory Facility:H 1 Start: 2010 Fall Risk Screening Fall Risk Screen ing [facility] Start: 1995 Administration of varicella zoster vaccine Zoster (Shingles) Vaccine (1 of 2) [facility] Start: 1964 DTaP,Tdap and Td Vac cines (1 - Tdap) DTaP,Tdap and Td Vaccines (1 - Tdap) [facility] Start: 1963 Adult BMI Follow Up Plan Adult BMI Follow Up Plan [facility] Start: 1957 Depression Screening Depression Scre ening [facility] Start: 1945 Medicare Annual Well ness Visit Medicare Annual Wellness Visit [facility] [employer] End: 06-08-2024 Basic metabolic 2000 panel - Serum or Plasma Basic Metabolic Panel Lab Routine Essential hypertension 1 Occurrences starting 06/08/2023 until 06/08/2024 [facility] Work Phone: Comment on above: 1 Occurrences starti ng 06/08/2023 until 06/08/2024 Renal function 1999 panel - Serum or Plasma [facility] Renal function 1999 panel - Serum or Plasma [facility] US Kidney - bilateral Firela nds [facility] Immunizations Immunization Date Immunization Notes Care Provider Fa sherie 05-08-2021 influenza virus vaccine, unspecified formulation Mac Erwin APRN-VICKIE Work Phone: [facility] Payers Date Payer Category Payer Medicare HUMANA MEDICARE HUMANA MEDICARE - [place] RESIDENT [id number] 2013-Present [phone] [address] [address] [place] [address] [id number] 1959 Medicare [id number] 1945 Unknown [id number] 1945 Unknown [id number] 1945 Unknown [id number] 1945 Unknown [id number] 1945 Unknown [id number] 1945 Unknown [id number] 1945 Unknown [id number] 1945 Unknown [id number] 1945 Unknown [id number] [id number] 1945 Unknown [id number] 1945 Unknown [id number] Medicare Medicare [id number] Social History Date Type Detail Facility Start: 05-26-2022 End: 10-19-2024 Tobacco smoking status NHIS Never smoked tobacco [facility] Start: 05-26-2022 Tobacco use and exposure Smoke less tobacco non-user [facility] Start: 08-24-2022 Alcohol intake 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 (finding) [facility] Start: 07-04-2020 End: 08-24-2022 History of Social function [facility] Start: 07-04-2020 End: 08-24-2022 Tobacco use panel [facility] Housing Instability Unknown [facility] Start: 1945 Sex Assigned At Not on file [facility] Start: 07-27-2024 End: 10-19-2024 Sex Female (finding) [facility] Start: 1945 Sex Assigned At Female [facility] Medical Equipment Procedure Code Equipment Code Equipment Origin al Text Equipment Identifier Dates Mesh [id number] 3d Rect Plstr Clgn Symbotex 2 Sd Comp Mfl Babsr Rpl [id number] - [facility] - [id number] Start: 06-30-2022 Dev Clsr 30fr Watchman 30mm - [id number] Start: 10-28-2018 Clinical Notes 12-24-2021 to [...] Dr. Hines 2018, implantation of Biventricular ICD ([employer]) 07/05/2023, status post AV node ablation 11/01/[address] Madden. 08/18/2024 office visit: The patient was seen and evaluated in the office today. Overall, she reports feeling well. Abnormal kidney function was incidentally noted on presurgical labs for a planned back surgery, including a potassium of 5.8 and creatinine of 1.62. She has since established care with a deportation examiner, whom she saw for the first time [...] oral, Nightly sp (more content not included)... [facility] 03-21-2024 Note [place] Electrophysiology Consult Note Reason for [...] GI bleed. She was previously seen by [facility] cardiology. She was initially seen [...] mg tablet Ta (more content not included)... [facility] 02-14-2024 Note This report has been cancelled. [facility] 02-11-2024 Note RCRI= 2 points Class III Risk 10.1 % 30-day risk of , MT, or cardiac arrest From a cardiac perspective pt may proceed with planned surgery, she is a moderate risk for a moderate risk orthopedic surgery. She may hold Aspirin 5-7 days prior and resume post op. Please monitor hemodynamics carefully and prevent any major fluid shifts. Toya Rizo [facility] Cardiology Available 7a-5pm via [employer] Chat Pager [phone] [facility] 12-28-2023 Miscellaneous Notes Rec'd letter from patient stating that she no longer sees [facility], uses a doctor in [place]. documented in this encounter [facility] 12-28-2023 Telephone encounter Note Rec'd letter from patient stating that she no longer sees [facility], uses a doctor in [place]. [facility] 12-06-2023 Miscellaneous Notes Last OV 06/15/22.slm T/C to pt to sched [facility] f/u appt. No answer and mailbox is full. documented in this encounter [facility] 12-06-2023 Telephone encounter Note Last OV 06/15/22.slm [facility] 12-06-2023 Telephone encounter Note T/C to pt to sched [facility] f/u appt. No answer and mailbox is full. [facility] 12-01-2023 Note Currently pt is doin g quite well s/p recent AV node ablation Remains V paced with BI-V AICd [facility] 12-01-2023 Note No anticoagulation currently [facility] 12-01-2023 Note Patient here for fol low up AV node ablation performed on 11/01/[address] Madden. She denies chest pain, SOB, palpitations, and lightheadedness/syncope. Review of Systems Musculoskeletal: Positive for arthritis and back pain. All other systems reviewed and are negative. [facility] 12-01-2023 Note [facility] CARDIOLOGY PROGR [...] GI bleed. [facility] She was initially seen by [...] Conjunctiva/sclera: Conjunctivae normal. (more content not included)... [facility] 11-01-2023 Note AV NODE ABLATION PRO CEDURE REPORT DATE OF PROCEDURE: 11/01/2023 PERFORMING PHYSICIAN: Dr. Robert Madden POWER MACHINE OPERATOR: NA CONSENT: Patient NAME OF THE PROCEDURE: [...] GI bleed. She was previously seen by [facility] cardiology. She was initially seen [...] Continue anticoagulation. Robert Madden MD Cardiac Electrophysiology. [facility] 11-01-2023 Note Patient: Radha mcghee Procedure Information Date/Time: 11/01/23829 Procedure: AV node ablation Location: [facility] BUL[facility]PECT[facility] 1 EP / [facility] HV VASCULAR LAB (Cath) Providers: Robert Madden MD Clinical information reviewed: Tobacco Allergies Meds Med Hx Surg Hx OB Status Fam Hx Physical Exam Airway Mallampati: II TM distance: >3 FB Neck ROM: full Cardiovascular Dental Pulmonary Abdominal Anesthesia Plan ASA 2 CSE Anesthetic plan and risks discussed with patient. Use of blood products discussed with patient who. Additional Equipment Requests [facility] 11-01-2023 Note [place] Electrophysiology Consult Note Reason [...] GI bleed. [facility] She was initially seen by [...] 50 mg tab (more content not included)... [facility] 09-10-2023 Miscellaneous Notes Please sign and route if you agree. Thank you HODAN 06/22/22 Pt needs annual appt schedule please, thank you. Letter mailed. LMOM for the patient to call and schedule their next appointment with [facility]. documented in this encounter [facility] 09-10-2023 Telephone encounter Note Please sign and route if you agree. Thank you HODAN 06/22/22 Pt needs annual appt schedule please, thank you. Letter mailed. [facility] 09-10-2023 Telephone encounter Note LMOM for the patient to call and schedule their next appointment with [facility]. [facility] 06-11-2023 Miscellaneous Notes Last OV 06/15/22, sent to [facility] motel front desk attendant for yearly visit to be scheduled. CMP 06/22/22. BMP ordered from refill encounter 06/08/23. Letter has been mailed, but will attempt to send letter via MC as last login was 05/07/23. documented in this encounter [facility] 06-11-2023 Telephone encounter Note Last OV 06/15/22, sent to [facility] motel front desk attendant for yearly visit to be scheduled. CMP 06/22/22. BMP ordered from refill encounter 06/08/23. Letter has been mailed, but will attempt to send letter via [facility] as last login was 05/07/23. [facility] 07-23-2022 Note PAIN MANAGEMENT CONS ULTATION [...] months' time or sooner if needed. [facility] 03-26-2022 Note CONSULTATION CONSULTATION DATE: [...] agrees with the plan of care. [facility] 12-24-2021 Note CONSULTATION PROCEDURE DATE: [...] the procedure well with no complications. [facility] 12-24-2021 Note CONSULTATION CONSULTATION DATE: [...] three months' time, unless otherwise indicated. [facility] Evaluation note Diagnosis Essential hypertension- Primary Unspecified essential hypertension [facility] Diagnosis Chronic systolic CHF (congestive heart failure) ([facility] Diagnosis Onset Date Resolution [...] Iron deficiency acute July 27, 2024 10:10am [facility] Work Phone: Evaluation note* Diagnosis Onset Date [...] Iron deficiency acute October 19, 2024 12:46pm [facility] Work Phone: InstructionsNot on filedocumented in this encounter [facility] filed[facility]ed in this [facility] on filedocumented in [facility] encounter [facility] on filedocumented in [facility] encounter [facility] Summary Purpose Family History No [...] and content) DATE CREATED AUTHOR 07/25/2020 [facility] DATE CREATED AUTHOR AUTHOR'S ORGANIZ ATION 10/12/2022 [facility] DATE CREATED AUTHOR AUTHOR'S ORGANIZ ATION 01/17/2024 [facility] EPIC DATE CREATED AUTHOR AUTHOR'S ORGANIZ ATION 10/26/2024 [facility] Reason for Visit (unrecogniz ed section [...] October 19, 2024 End: October 19, 2024 Patient Intake Coordinator Relationship Specialty Start Date End Date Heaven Staley APRN-CNP [facility] [place] [address] PCP - General Family Medicine 10/30/21 Patient Intake Coordinator Relationship Specialty Start Date End Date Heaven Staley APRN-CNP [address] [facility] [place] [address] PCP - General Family Medicine 10/30/21 Patient Intake Coordinator Relationship Specialty Start Date End Date Heaven Staley APRN-CNP [address] [facility] [place] [address] PCP - General Family Medicine 10/30/21 Patient Intake Coordinator Relationship Specialty Start Date End Date Heaven Staley APRN-CNP [address] [facility] [place] [address] PCP - General Family Medicine 10/30/21 Team [...] BE BASED ON THE PRIMARY CLINICAL RECORDS. [employer] [facility]. provides no warranty or guarantee of the accuracy or completeness of information in this document.
[2024-11-20 06:51] VITALS: BP 104/69; PULSE 68; TEMP 36.2; O2SAT 98
[2024-11-20] MEDS: 0.9 % SODIUM CHLORIDE 10 ML SYRINGE - SALINE FLUSH INJ (07:30)
[2024-11-20] MEDS: IOHEXOL 240 MG/ML - 10 ML VIAL INJ (07:31)
[2024-11-20] MEDS: LIDOCAINE HCL 2% 400 MG/20 ML MDV 3 ML INJ (07:31)
[2024-11-20] MEDS: BUPIVACAINE HCL 0.25% PF 25 MG/10 ML VIAL INJ (07:31)
[2024-11-20] MEDS: METHYLPREDNISOLONE ACETATE 80 MG/ML VIAL INJ (07:32)
[2024-11-20 07:33] VITALS: BP 116/60; BP 117/69; PULSE 70; O2SAT 97
--- NOTE | 2024-11-20 07:35 | P.ON_ITS ---
Date of procedure: 11/20/24 Pre-op diagnosis: Pain due to lumbar stenosis with neurogenic claudication Post-op diagnosis: same as pre-op Procedure: Procedure: Right L4-5, L5-S1 transforaminal epidural steroid injection Medications: Bupivacaine 0.25% 2cc, lidocaine 2% 1cc, depomedrol 80mg The patient was seen and examined in the preoperative holding area.? Informed consent was obtained and placed on the chart.? Patient was brought to the medical procedure unit and placed in the prone position where a timeout was completed verifying the correct patient, procedure site, position, and planned special equipment using sterile aseptic technique.? Under direct fluoroscopic visualization a 25-gauge Quincke tipped spinal needle was advanced to the designated neural foramen where contrast dye was injected to show adequate spread.? The needle was inserted at level right L4-5. There was no evidence of vascular or adverse uptake.? Epidural spread was appreciated.? The above- mentioned injectate was then placed in a 1.5 mL aliquot preceded by negative aspiration.? The needle was removed. The needle was inserted and the procedure repeated at level right L5-S1.? The surgery site was covered.? Patient was taken to the postprocedural recovery area and monitored for an appropriate length of time before found suitable for discharge in the accompaniment of a responsible adult. Anesthesia: Local Surgeon: Florina Devlin Pathology: none sent Condition: stable Disposition: no change
== END 2024-11-20 07:38 | disposition home or self-care (01) ==
LOC: SURGOUT 06:18
PROVIDERS: PCP Nurse Practitioner Family; Visit Provider Anesthesiology
DX: M54.50 Low back pain, unspecified (principal); M48.062 Spinal stenosis, lumbar region with neurogenic claudication
CPT/HCPCS: 64483; 64484; J0665; J1010; Q9966

== ENCOUNTER 2024-11-30 08:19 | Outpatient (OUT) | payer MEDICARE, SELFPAY ==
--- OUTSIDE RECORDS SUMMARY | 2024-09-06 05:14 | XMS_ITS ---
Author Organization The [facility] [place] Address [address] [place] [address] Care Team Providers Care Lumite Injector Name Role Phone Heaven Calderon Primary Care Provider REASON FOR VISIT Mammogram Encounters Encounter Location Date Provider Diagnosis [facility] [address] [place] [address] 09/06/2024 Heaven Calderon Plan Of Treatment No Information Progress Notes * Radha GUTIÉRREZ GDOB:[birth year] (79 yo F)Acc No.[id number]:09/06/2024 Patient: Matthias Radha BUCIO :1945 A ge:79 Y S ex:Female Address:[address], [place], [address] * true * Date: Generated for Breana robles/Bogdan/eTransmitting on: 0 11/30/2024 08:21 AM EDT
--- OUTSIDE RECORDS SUMMARY | 2024-09-26 04:49 | XMS_ITS ---
Author Organization [facility] [place] Address [address] [place] [address] Care Team Providers Care Vocational Rehabilitation Consultant Name Role Phone Heaven Calderon Primary Care Provider REASON FOR VISIT review mammogram Encounters Encounter Location Date Provider Diagnosis [facility] [address] [place] [address] 09/26/2024 Heaven Calderon Plan Of Treatment No Information Progress Notes * Radha GUTIÉRREZ GDOB:[birth year] (79 yo F)Acc No.[id number]:09/26/2024 Patient: Matthias Radha BUCIO :1945 A ge:79 Y S ex:Female Address:[address], [facility] [address] * true * Date: Generated for Breana robles/Bogdan/eTransmitting on: 11/30/2024 08:21 AM EDT
--- OUTSIDE RECORDS SUMMARY | 2024-10-02 10:26 | XMS_ITS ---
Author Organization [facility] [place] Address [address] [place] [address] Care Team Providers Care Director Of Golf Name Role Phone Heaven Calderon Primary Care Provider [phone] REASON FOR VISIT Review DEXA- LMTCB Encounters Encounter Location Date Provider Diagnosis [facility] [address] [place] [address] 10/02/2024 Heaven Calderon Plan Of Treatment No Information Progress Notes * Radha GUTIÉRREZ GDOB:[birth year] (79 yo F)Acc No.[id number]:10/02/2024 Patient: Matthias BUCIO Radha Barry :1945 A ge:79 Y S ex:Female Address:[address] [place], [address] Subjective: * Chief Complaints: * R eview DEXA- LMTCB * Medical History: * Surgical History: * Hospitalization/Major Diagno stic Procedure: * Medications: Objective: * Vitals: * Physical Examination: Assessment: Plan: * Treatment: * Procedure Codes: * true * Date: Generated for Printi ng/Faxing/eTransmitting on: 11/30/2024 08:21 AM EDT
--- OUTSIDE RECORDS SUMMARY | 2024-11-30 08:21 | XMS_ITS | Encounter Summary ---
Author Organization [employer] Address [id number] [address] [place] [address] Care Team Providers Care Clerk Secretary Name Role Phone Heaven Calderon Jessenia BURGER-MOLD DESIGN ENGINEER Primary Care Provider Reason for Visit * Reason Onset Date Comments Med Refill Med Refill 06/26/2019 Encounter Details Date Type Department Care Team (Late st Contact Info) Description 06/17/2019 Refill [facility] [address] [place] [id number] Phi Limon MD [address] [place] [address] Med Refill; Med Refill Social History Tobacco Use Types Packs/Day Years Used Date Smoking Tobacco: Never Smokeless Tobacco: Never Alcohol Use Standard Drinks/Week Comments No 0 (1 standard drink = 0.6 oz pur e alcohol) Childcare Answer Date Recorded Childcare Unknown 10/28/2018 Employment Answer Date Recorded Employment Unknown 10/28/2018 Comments No Sex and Gender Information Value Date Recorded Sex Assigned at Not on file Legal Sex Female 12:14 PM EDT Gender Identity Not on file Sexual Orientation Not on file documented as of this encounter Miscellaneous Notes * Telephone Encounter - Kristin Billingsley RN - 06/17/2019 9:39 AM EST LMOM about labs needed for further furosemide refills. Kristin Billingsley RN 06/22/19 [id number] documented in this encounter Plan of Treatment Not on file documented as of this encounter Results * (ABNORMAL) Magnesium (06/26/2019 11:00 AM EST) Magnesium 1.7(L) 1.8 - 2.6 mg/dL 06/26/2019 4:48 PM EST [facility] Serum / Unknown 06/26/2019 1 1:00 AM EST 06/26/2019 11:01 AM EST us Apple Packer RN LAB BLOOD ORDERABLES Final Res ult [facility] [address] [facility] [place] [address] documented in this encounter Visit Diagnoses Diagnosis oysterman current use of diuretic- Primary documented in this encounter Care Teams Clerk Secretary Relationship Specialty Start Date End Date Heaven Calderon, BUGGY RUNNER-MOLD DESIGN ENGINEER [address] [place] [address] PCP - General Family Medicine 10/30/21 documented as of this encounter
--- OUTSIDE RECORDS SUMMARY | 2024-11-30 08:22 | XMS_ITS | Encounter Summary ---
Author Organization [facility] Address [id number] [address] [place] [address] Care Team Providers Care Try Out Person Name Role Phone Heaven Calderon APRN-LABORER BRUSH CLEARING Primary Care Provider Reason for Visit * Reason Comments Med Refill Encounter Details Date Type Department Care Team (Late st Contact Info) Description 07/29/2023 Refill [facility] [address] [place] [phone] Demarcus De La Paz PA-C [address] [place] [id number] Med Refill Social History Tobacco Use Types Packs/Day Years Used Date Smoking Tobacco: Never Smokeless Tobacco: Never Alcohol Use Standard Drinks/Week Comments No 0 (1 standard drink = 0.6 oz pur e alcohol) Childcare Answer Date Recorded Childcare Unknown 10/28/2018 Employment Answer Date Recorded Employment Unknown 10/28/2018 Hunger Screening Answer Date Recorded Within the past 12 months we worried whether our food would run out before we got money to buy more. Never True 08/24/2022 Food Insecurity - Inability Not on file 07/30 Purpose - Life Answer Date Recorded Purpose and direction in life Unknown Comments No Sex and Gender Information Value Date Recorded Sex Assigned at Not on file Legal Sex Female 12:14 PM EDT Gender Identity Not on file Sexual Orientation Not on file documented as of this encounter Plan of Treatment Not on file documented as of this encounter Visit Diagnoses Not on filedocumented in this encounter Care Teams Try Out Person Relationship Specialty Start Date End Date Heaven Calderon, MIMEOGRAPH OPERATOR-LABORER [employer] [address] [place] [phone] PCP - General Family Medicine 10/30/21 documented as of this encounter
--- OUTSIDE RECORDS SUMMARY | 2024-11-30 08:22 | XMS_ITS | Encounter Summary ---
Author Organization [facility] Address [address] [place] [address] Care Team Providers Care Hopper Operator Name Role Phone Heaven Calderon VICKIE Primary Care Provider [phone] Encounter Details Date Type Department Care Team (Late st Contact Info) Description 10/10/2024 Orders Only [facility] [address] [place] [address] Erlin Lyn MD [address] [place] [address] Social History Tobacco Use Types Packs/Day Years Used Date Smoking Tobacco: Never Smokeless Tobacco: Never Alcohol Use Standard Drinks/Week Comments Never 0 (1 standard drink = 0.6 oz pur e alcohol) [place] Safety & Environment Answer Date Rec orded Fear of Current or Ex-Partner Not on file Emotionally Abused Not on file 07/23/2023 Physically Abused Not on file 07/23/2023 Sexually Abused Not on file 07/23/2023 Physically or Sexually Abused Not on file Comments No Sex and Gender Information Value Date Recorded Sex Assigned at Female 11/01/2023 6:52 AM EDT Legal Sex Female 11:59 AM EDT Gender Identity Female 11/01/2023 6:52 AM EDT Sexual Orientation Heterosexual or Straight 07/2023 6:52 AM EDT documented as of this encounter Plan of Treatment Not on file documented as of this encounter Procedures Procedure Name Priority Date/Time Associated Diagnosis Comments CARDIAC DEVICE CHECK - REMOTE - ICD Routine 10/10/2024 12:00 AM EDT documented in this encounter Results * Cardiac device check - Remote ICD (10/10/2024 12:00 AM EDT) Anatomical Region Laterality Modality Other 10/10/2024 Erlin Lyn MD CV IMPLANTABLE CARDIAC DEVICE PROCEDURES Final Result documented in this encounter Visit Diagnoses Not on filedocumented in this encounter Care Teams Hopper Operator Relationship Specialty Start Date End Date Heaven Calderon CNP [address] [place] [address], [place] [address] PCP - General Family Medicine 05/18/23 documented as of this encounter
--- OUTSIDE RECORDS SUMMARY | 2024-11-30 08:22 | XMS_ITS | Encounter Summary ---
Author Organization CRAiLAR tem Address [facility]-[id number] [address] [place] [address] Care Team Providers Care Vfx Artist Name Role Phone Heaven Calderon APRN-HOLLOW TILE PARTITION ERECTOR Primary Care Provider Encounter Details Date Type Department Care Team (Late st Contact Info) Description 06/17/2022 Telephone [facility] [address] [place] [phone] Kathy Joyce RMA Social History Tobacco Use Types Packs/Day Years Used Date Smoking Tobacco: Never Smokeless Tobacco: Never Alcohol Use Standard Drinks/Week Comments No 0 (1 standard drink = 0.6 oz pur e alcohol) Childcare Answer Date Recorded Childcare Unknown 10/28/2018 Employment Answer Date Recorded Employment Unknown 10/28/2018 Purpose - Life Answer Date Recorded Purpose and direction in life Unknown Comments No Sex and Gender Information Value Date Recorded Sex Assigned at Not on file Legal Sex Female 12:14 PM EDT Gender Identity Not on file Sexual Orientation Not on file COVID-19 Exposure Response Date Recorded In the last month, have you been in contact with someone who was confirmed or suspected to have Coronavirus / COVID-19? No / Unsure 06/15/2022 9:26 AM EST documented as of this encounter Miscellaneous Notes * Telephone Encounter - MIKE Prieto - 06/17/2022 12:47 PM EST I called Radha and left a message to call the office to schedule her surgery - Davinci ventral hernia repair. We have the medical clearance and the order has been placed so we can move forward. documented in this encounter Plan of Treatment Not on file documented as of this encounter Visit Diagnoses Not on filedocumented in this encounter Care Teams Vfx Artist Relationship Specialty Start Date End Date Heaven Calderon APRN-VICKIE [address] [place] [address] PCP - General Family Medicine 10/30/21 documented as of this encounter
--- OUTSIDE RECORDS SUMMARY | 2024-11-30 08:22 | XMS_ITS | Clinical Summary ---
Author Organization St[employer] tem Address [id number] [address] [place] [address] Care Team Providers Care Engine Generator Assembler Name Role Phone Heaven Calderon APRN-FACILITIES ENGINEERING MANAGER Primary Care Provider Allergies Active Allergy Reactions Criticality Noted Date Comments Codeine 06/06/2014 Other reaction(s): Intolerance-unknown Lisinopril 10/19/2014 Other reaction(s): Dry cough Medications ferrous sulfate 325 (65 FE) mg tablet Take 1 tablet (325 mg total) by mouth daily with breakfast. Active pantoprazole (PROTONIX) [address] for susp in packet Take 1 packet (40 mg total) by mouth in the morning. Active pramipexole (MIRAPEX) 1 mg tablet Take 1.5 tablets (1.5 mg total) by mouth in the morning. Active cholecalciferol, vitamin D3, 5,000 units tablet 1 tablet (5,000 Units total) in the morning. Active oxyCODONE-acetam inophen (PERCOCET) 5-325 mg per tablet Take 1 tablet by mouth every 4 (four) hours as needed for pain. Active sucralfate (CARAFATE) 1 gram tablet Take 1 tablet (1 g total) by mouth in the morning and 1 tablet (1 g total) before bedtime. Active traZODone (DESYREL) 50 mg tablet Take 3 tablets (150 mg total) by mouth nightly as needed. Active Lactobacillus acidophilus 10 billion cell capsule Take 1 tablet by mouth daily. Active folic acid/multivit-mi n/lutein (CENTRUM SILVER ORAL) Take 1 tablet by mouth daily. Active coenzyme Q10 100 mg capsule Take 1 capsule (100 mg total) by mouth in the morning. Active calcium carbonate (CALCIUM 500 ORAL) Take by mouth daily. Active b complex vitamins capsule Take 1 capsule by mouth in the morning. Active diclofenac (VOLTAREN) 50 mg EC tablet Take 1 tablet (50 mg total) by mouth in the morning. Active pregabalin (LYRICA) 50 mg capsule 1 capsule (50 mg total) once daily at bedtime. 04/27/2022 Active valsartan (DIOVAN) 40 mg tablet Take 0.5 tablets (20 mg total) by mouth in the morning. 45 tablet 3 08/10/2022 Active furosemide (LASIX) 40 mg tablet Take 1 tablet (40 mg total) by mouth daily. PT NEEDS APPT AND LABS FOR FURTHER REFILLS 30 tablet 1 06/08/2023 Active spironolactone (ALDACTONE) 25 mg tabletIndication s:Chronic systolic CHF (congestive heart failure) ([facility]) Take 1 tablet (25 mg total) by mouth in the morning. Need labs and appt for more refills. 90 tablet 06/15/2023 Active metoprolol succinate XL (TOPROL XL) 50 mg 24 hr tablet Take 1 tablet (50 mg total) by mouth in the morning. 90 tablet 12/06/2023 Active Active Problems Problem Noted Date Diagnosed Date RLS (restless legs syndrome) 06/05/2022 Anxiety 06/05/2022 CHF (congestive heart failure) 06/05/2022 BMI 34.0-34.9,adult 02/18/2022 Essential hypertension 02/18/2022 Class 1 obesity in adult 10/11/2020 Presence of Watchman left atrial appendage closu re device 11/03/2018 Chronic systolic CHF (congestive heart failure) 08/25/2018 Obstructive sleep apnea syndrome in adult 2016 Persistent atrial fibrillation 10/23/2015 Left bundle branch block (LBBB) 07/13/2014 Sinoatrial node dysfunction 07/13/2014 Cardiomyopathy, nonischemic Resolved Problems Problem Noted Date Diagnosed Date Resolved Date Other fatigue 11/03/2018 10/11/2020 AF (atrial fibrillation) 10/28/2018 SOB (shortness of breath) 07/02/2016 Cardiomyopathy 06/06/2014 08/25/2018 Paroxysmal atrial fibrillation 06/06/2014 02/24/2018 Left bundle branch block Bradycardia 08/25/2018 Shortness of breath 02/25/20 18 Family History Medical History Relation Name Comments Heart disease Father No Known Problems Mother Breast cancer Neg Hx Relation Name Status Comments Father Mother Social History Tobacco Use Types Packs/Day Years Used Date Smoking Tobacco: Never Smokeless Tobacco: Never Tobacco Cessation:Counseling Given: Not Answered Alcohol Use Standard Drinks/Week Comments No 0 [...] on file Sexual Orientation Not on file Last Filed Vital Signs Vital Sign Reading Time Taken Comments Blood Pressure 124/70 08/24/2022 1:31 PM EDT Pulse 58 08/24/2022 1:31 PM EDT Temperature 36.9 C (98.4 F) 06/30/2022 10:30 AM EST Respiratory Rate 13 06/30/2022 11:10 AM EST Oxygen Saturation 95% 06/30/2022 11:10 AM EST Inhaled Oxygen Concentration - - Weight 94.9 kg (209 lb 3.2 oz) 08/24/2022 1:31 P M EDT Height 165.1 cm (5' 5 ) 08/24/2022 1:31 PM EDT Body Mass Index 34.81 08/24/2022 1:31 PM EDT Plan of Treatment Health Maintenance Due Date Last Done Comments Depression Screening 1957 Tobacco Screening 1957 DTaP,Tdap and Td Vaccines (1 - Tdap) 1964 Zoster (Shingles) Vaccine (1 of 2) 1995 Fall Risk Screening 2010 COVID-19 Vaccine (2023-2 5 season) 2024 08/29/2020, 08/01/2020 Influenza Vaccine 01/29/2025 05/08/2021, , 04/10/2019, Additional history exists Medical Devices Implanted Type Area Sandblast Or Shotblast Equipment Tender Device Identifier Shelf Expiration Date Model / Serial / Lot Mesh [id number] 3d Rect Plstr Clgn Symbotex 2 Sd Comp Mfl Babsr Rpl [id number] - Sna - [id number] Implanted:Qty : 1 on 06/30/2022 by Jona Foley DO at [facility] Mesh N/A: Abdomen [employer] 04/29/2023 [id number] / NA / [id number] Dev Clsr 30fr Watchman 30mm - [id number] Implanted:Qty : 1 on 10/28/2018 by Kaushal Hines MD at [facility] Other Implant N/A: Heart [employer] 06/23/2021 [id number] / / [id number] Insurance [employer] MEDICARE Care Teams Engine Generator Assembler Relationship Specialty Start Date End Date Heaven Calderon, SPINDLE PLUMBER-FACILITIES ENGINEERING MANAGER [address] [facility] [place] [address] PCP - General Family Medicine 10/30/21
--- OUTSIDE RECORDS SUMMARY | 2024-11-30 08:22 | XMS_ITS | Encounter Summary ---
Author Organization [facility] Address [facility]-[id number] [address] [place] [address] Care Team Providers Care Recreational Therapy Technician Name Role Phone Heaven Calderon Jessenia ADDICTION THERAPIST-ELECTRICAL/INSTRUMENT TECHNICIAN Primary Care Provider Reason for Visit * Reason Comments Med Refill Encounter Details Date Type Department Care Team (Late st Contact Info) Description 03/16/2023 Refill [facility] [address] [place] [phone] Carlos Nielson, ADDICTION THERAPIST-ELECTRICAL/INSTRUMENT TECHNICIAN [address] [place] [address] Med Refill Social History Tobacco Use Types [...] encounter Miscellaneous Notes * Telephone Encounter - Kaykay Varma LPN - 03/16/2023 5:30 PM EDT For further refills, patient needs to complete labs as ordered. Letter sent to [employer]. documented in this encounter Plan of Treatment Not on file documented as of this encounter Visit Diagnoses Diagnosis Persistent atrial fibrillation (CMS-HCC)- Primary Atrial fibrillation documented in this encounter Care Teams Recreational Therapy Technician Relationship Specialty Start Date End Date Heaven Calderon, TAO-ELECTRICAL/INSTRUMENT TECHNICIAN [address] [place] [phone] PCP - General Family Medicine 10/30/21 documented as of this encounter
--- OUTSIDE RECORDS SUMMARY | 2024-11-30 08:22 | XMS_ITS | Clinical Summary ---
Author Organization [facility] Address [address] [place] [address] Care Team Providers Care Certified Pathology Assistant Name Role Phone Heaven Calderon VICKIE Primary Care Provider [phone] Allergies Active Allergy Reactions Criticality Noted Date Comments Codeine 06/06/2014 Other reaction(s): Intolerance-unknown Lisinopril 10/19/2014 Other reaction(s): Dry cough Pregabalin Other 12/01/2023 Medications pantoprazole (ProtoNix) 40 mg packet Take 40 mg by mouth in the morning. Active pramipexole (Mirapex) 1 mg tablet Take 1.5 mg by mouth in the morning. 09/05/19 23 Active oxyCODONE-acetam inophen (Percocet) 5-325 mg tablet Take 1 tablet by mouth if needed in the morning, at noon, and at bedtime for moderate pain (4-7 pain score). 11/05/19 23 Active sucralfate (Carafate) 1 gram tablet Take 1 g by mouth if needed. 04/22/20 22 Active traZODone (Desyrel) 50 mg tablet Take 50 mg by mouth at bedtime. 09/15/19 23 Active diclofenac (Voltaren) 50 mg EC tablet Take 50 mg by mouth if needed. Active coenzyme Q-10 100 mg capsule Take 100 mg by mouth in the morning. Active VITAMIN B COMPLEX ORAL Take 1 capsule by mouth in the morning. Active aspirin 81 mg EC tablet Take 81 mg by mouth 3 (three) times a week. Active baclofen (Lioresal) 10 mg tablet Take 10 mg by mouth in the morning, at noon, and at bedtime. Active pregabalin (Lyrica) 50 mg capsule Take 50 mg by mouth at bedtime. 10/27/19 24 Active metoprolol succinate XL (Toprol-XL) 50 mg 24 hr tabletIndication s:Palpitations Take 1 tablet (50 mg) by mouth in the morning. 90 tablet 3 05/29/20 24 025 Active furosemide (Lasix) 40 mg tabletIndication s:Benign hypertensive heart disease with heart failure (CMS/HCC) TAKE 1 TABLET (40 MG) BY MOUTH ONCE DAILY DIRECTED. 90 tablet 3 08/15/19 25 Active spironolactone (Aldactone) 25 mg tabletIndication s:Benign hypertensive heart disease with heart failure (CMS/HCC) TAKE 1 TABLET (25 MG) BY MOUTH ONCE DAILY DIRECTED. 90 tablet 3 10/03/19 25 Active losartan (Cozaar) 25 mg tabletIndication s:Congestive heart failure, unspecified HF chronicity, unspecified heart failure type (CMS/HCC) Take 1 tablet (25 mg) by mouth once daily as directed. 90 tablet 3 11/15/19 25 Active losartan (Cozaar) 25 mg tabletIndication s:Congestive heart failure, unspecified HF chronicity, unspecified heart failure type (CMS/HCC) TAKE 1 TABLET BY MOUTH EVERY DAY IN THE MORNING 90 tablet 3 11/24/19 24 025 Discontinued Active Problems Problem Noted Date Diagnosed Date Abnormal findings on diagnos tic imaging of heart and coronary circulation 08/18/2024 Acquired spondylolisthesis 08/18/2024 Allergic rhinitis 08/18/2024 Arthritis 08/18/2024 Arthrodesis status 08/18/2024 Cataract of both eyes 08/18/2024 Chronic back pain 08/18/2024 Encounter for other orthopedic aftercare 025 Folliculitis 08/18/2024 Gastroesophageal reflux disease 08/18/2024 Heartburn 08/18/2024 Hemorrhoids 08/18/2024 History of gastric ulcer 08/18/2024 Hypertension 08/18/2024 Insomnia 08/18/2024 Lumbar radiculopathy 08/18/2024 Osteoporosis 08/18/2024 Overweight 08/18/2024 Presence of other cardiac implants and grafts Sleep apnea 08/18/2024 Spinal stenosis of lumbar region 08/18/2024 Stage 3 chronic kidney disease 08/18/2024 Ventral hernia 08/18/2024 Pre-operative cardiovascular examination 024 DDD (degenerative disc disease), lumbar 02/11/20 24 Paresthesia 12/01/2023 Sciatica 12/01/2023 Hx of atrioventricular node ablation 12/01/2023 Assessment & Plan (12/01/2023 11:31 AM EDT): Currently pt is doing quite well s/p recent AV node ablation Remains V paced with BI-V AICd Paroxysmal atrial fibrillation 08/27/2023 Presence of biventricular AICD 07/14/2023 Assessment & Plan (07/14/2023 10:58 AM EST): Site well approximated and healing well No s/s of infection or hematoma, + ecchymosis noted Dilated cardiomyopathy 05/18/2023 Abnormal cardiovascular stress test 12/18/2022 Cardiomyopathy, nonischemic 11/23/2022 Assessment & Plan (02/04/2023 2:57 PM EDT): -NYHA II, NICM, HFrEF EF 35%, pending MUGA scan in 2-3 months to reassess EF for ICD -nonobstruc cors 12/2022 -ct gdmt -she appears euvolemic and compensated Anxiety 06/05/2022 CHF (congestive heart failure) 06/05/2022 RLS (restless legs syndrome) 06/05/2022 BMI 34.0-34.9,adult 02/18/2022 Benign hypertensive cardiomyopathy with heart fa ilure 02/18/2022 Assessment & Plan (02/04/2023 2:58 PM EDT): -stable, ct medications Class 1 obesity in adult 10/11/2020 Presence of Watchman left atrial appendage closu re device 11/03/2018 Assessment & Plan (12/01/2023 11:30 AM EDT): No anticoagulation currently Assessment & Plan (07/14/2023 10:58 AM EST): stable Assessment & Plan (02/04/2023 3:00 PM EDT): -s/p watchmen 2019, on aspirin Chronic systolic CHF (congestive heart failure) 08/25/2018 Obstructive sleep apnea syndrome in adult 2016 Assessment & Plan (02/04/2023 2:56 PM EDT): -adv compliance with cpap Persistent atrial fibrillation 10/23/2015 Overview (12/01/2023): -[id number] at least 5 for age x2, gender, hypertension, CHF, on aspirin s/p watchmen S/P AV node ablation- currently is V paced No concerning symptoms today Assessment & Plan (07/14/2023 10:58 AM EST): -[id number] at least 5 for age x2, gender, hypertension, CHF, on aspirin s/p watchmen Continue meds as prescribed Assessment & Plan (02/04/2023 3:00 PM EDT): -[id number] at least 5 for age x2, gender, hypertension, CHF, [...] Watchman due to unclear risk of stroke Left bundle branch block (LBBB) 07/13/2014 Assessment & Plan (02/04/2023 2:58 PM EDT): -will need BiV ICD if ICD indicated Sinoatrial node dysfunction 07/13/2014 Encounters Date Type Department Care Team Description 11/11/2024 Refill [facility] [address] [place] [phone] Matt Jefferson MD Congestive heart failure, unspecified HF chronicity, unspecified heart failure type (CMS/HCC) 10/11/2024 8:00 PM EDT Ancillary Procedure [facility] [address] [facility] [address] [address] Pre-operative cardiovascular examination, ICD in place 10/10/2024 Orders Only [facility] [address] [place] [address] Erlin Lyn MD 09/30/2024 Refill [facility] [address] [place] [address] Robert Madden MD Benign hypertensive heart disease with heart failure (CMS/HCC) 09/11/2024 5:00 PM EDT Ancillary Procedure [facility] [address] [place] [address] Pre-operative cardiovascular examination, ICD in place from Last 3 Months Family History Medical History Relation Name Comments Heart failure Father Relation Name Status Comments Father Social History Tobacco Use Types Packs/Day Years Used Date Smoking Tobacco: Never Smokeless Tobacco: Never Tobacco Cessation:Counseling Given: Not Answered Alcohol Use Standard Drinks/Week Comments Never 0 [...] Heterosexual or Straight 07/2023 6:52 AM EDT Last Filed Vital Signs Vital Sign Reading Time Taken Comments Blood Pressure 116/70 08/18/2024 10:53 AM EDT Pulse 70 08/18/2024 10:53 AM EDT Temperature - - Respiratory Rate 15 11/01/2023 11:15 AM EDT Oxygen Saturation 96% 08/18/2024 10:53 AM EDT Inhaled Oxygen Concentration - - Weight 86.2 kg (190 lb) 08/18/2024 10:53 AM EDT Height 165.1 cm (5' 5 ) 08/18/2024 10:53 AM EDT Body Mass Index 31.62 08/18/2024 10:53 AM EDT Plan of Treatment Health Maintenance Due Date Last Done Comments Medicare Annual Wellness (AWV) 1945 Depression Screening 1957 Adult Tetanus 1967 Zoster Vaccines (1 of 2) 1995 Fall Risk Screening 2010 Pneumococcal Vaccine: 50+ Years (2 of 2 - PPSV23, PCV20, or PCV21) 07/04/2015 05/09/2015 COVID-19 Vaccine (3 - season) 2024 08/29/2020, 08/01/2020 Influenza Vaccine (#1) 2025 , 06/10/2020, 04/10/2019, Additional history exists HIB Vaccines Aged Out No longer eligi ble based on patient's age to complete this topic HPV Vaccines Aged Out No longer eligi ble based on patient's age to complete this topic IPV Vaccines Aged Out No longer eligi ble based on patient's age to complete this topic Meningococcal B Vaccine Aged Out No l onger eligible based on patient's age to complete this topic Meningococcal Vaccine Aged Out No agueda jr eligible based on patient's age to complete this topic Rotavirus Vaccines Aged Out No longer eligible based on patient's age to complete this topic Medical Devices Implanted Type Area Crossing Watchman Device Identifier Shelf Expiration Date Model / Serial / Lot Vigilant X4 Sensor Technician-D Is-1/Df4/Is4 Implanted:Qty: 1 on 07/05/2023 by Robert Madden MD at [facility] MESSAGE CLERK-D ICD [employer] [id number] 05/09/2025 [id number] / [id number] / [place] 4-Front S Active Fix Single Coil 59cm Implanted:Qty: 1 on 07/05/2023 by Robert Madden MD at [facility] Lead [employer] [id number] 01/20/2025 [id number] / [id number] / Lead,Acuity X4,Straight - [id number] - [id number] Implanted:Qty: 1 on 07/05/2023 by Robert Madden MD at [facility] [employer] [id number] 11/19/2024 [id number] / [id number] / Procedures Procedure Name Priority Date/Time Associated Diagnosis Comments CARDIAC DEVICE CHECK CHECK - REMOTE Routine 10/20/2024 10:22 AM EDT Pre-operative cardiovascular examination, ICD in place CARDIAC DEVICE CHECK - REMOTE - ICD Routine 10/10/2024 12:00 AM EDT CARDIAC DEVICE CHECK - REMOTE - ICD Routine 09/11/2024 10:54 AM EDT Pre-operative cardiovascular examination, ICD in place CARDIAC DEVICE CHECK - IN CLINIC - ICD BIVENTRICULAR CHAMBER W/ PROG Routine 09/05/2024 4:56 PM EDT Encounter for implantable defibrillator reprogramming or check from Last 3 Months Results * CARDIAC DEVICE CHECK - REMOTE - ICD (10/20/2024 10:22 AM EDT) Only the most recent of2 resultswithin the time period is included. Robert Madden MD CV IMPLANTABLE CARDIAC DEVICE MD OCEDURES Final Result CPACS * Cardiac device check - Remote ICD (10/10/2024 12:00 AM EDT) Anatomical Region Laterality Modality Other 10/10/2024 Eriln Lyn MD CV IMPLANTABLE CARDIAC DEVICE PROCEDURES Final Result * CARDIAC DEVICE CHECK - IN CLINIC - ICD BIVENTRICULAR CHAMBER W/ PROG (09/05/2024 4:56 PM EDT) BSA 1.99 m2 GE PACS CARDIO Anatomical Region Laterality Modality Other Narrative 09/06/2024 12:25 PM EDT Normal device function Robert Madden MD CV IMPLANTABLE CARDIAC DEVICE MD OCEDURES Final Result from Last 3 Months Insurance [facility] MEDICARE ADVANTAGE Care Teams Certified Pathology Assistant Relationship Specialty Start Date End Date Heaven Calderon CNP [facility], [facility] [place] [place] [address] PCP - General Family Medicine 05/18/23
--- OUTSIDE RECORDS SUMMARY | 2024-11-30 08:22 | XMS_ITS | Encounter Summary ---
Author Organization [employer] tem Address [id number] [address] [place] [address] Care Team Providers Care Mash Filter Cloth Changer Name Role Phone YumikoHeaven Jessenia BURGER-DENTAL EQUIPMENT INSTALLER AND SERVICER Primary Care Provider Reason for Visit * Reason Comments Med Refill Encounter Details Date Type Department Care Team (Late st Contact Info) Description 05/31/2023 Refill [facility] [address] [place] [phone] Mike Kowalski MD [address] [place] [address] Med Refill Social History Tobacco Use Types [...] as of this encounter Visit Diagnoses Diagnosis Chronic systolic CHF (congestive heart failure) (CMS-HCC) documented in this encounter Care Teams Mash Filter Cloth Changer Relationship Specialty Start Date End Date Heaven Calderon, LINUX ADMINISTRATOR-DENTAL EQUIPMENT INSTALLER AND SERVICER [address] [facility] [place] [phone] PCP - General Family Medicine 10/30/21 documented as of this encounter
--- OUTSIDE RECORDS SUMMARY | 2024-11-30 08:22 | XMS_ITS | Encounter Summary ---
Author Organization [employer] tem Address [facility]-[id number] [address] [place] [address] Care Team Providers Care Igniter Assembler Name Role Phone Heaven Calderon Primary Care Provider Reason for Visit * Reason Comments Med Refill Encounter Details Date Type Department Care Team ([facility] st Contact Info) Description 10/09/2018 Refill [facility] [address] [facility] [address] [place] [phone] Jacky Stoddard, DO [address] [facility] [place] [address] Med Refill Social History Tobacco Use Types Packs/Day Years Used Date Smoking Tobacco: Never Smokeless Tobacco: Never Alcohol Use Standard Drinks/Week Comments No 0 (1 standard drink = 0.6 oz pur e alcohol) Childcare Answer Date Recorded Childcare Unknown 08/24/2018 Employment Answer Date Recorded Employment Unknown 08/24/2018 Comments No Sex and Gender Information Value Date Recorded Sex Assigned at Not on file Legal Sex Female 12:14 PM EDT Gender Identity Not on file Sexual Orientation Not on file documented as of this encounter Plan of Treatment Not on file documented as of this encounter Visit Diagnoses Not on filedocumented in this encounter Care Teams Igniter Assembler Relationship Specialty Start Date End Date Heaven Calderon APRN-CNP [address] [facility] [place] [address] PCP - General Family Medicine 10/30/21 documented as of this encounter
--- OUTSIDE RECORDS SUMMARY | 2024-11-30 08:22 | XMS_ITS | Clinical Summary ---
Author Organization [facility] Healthcare Address [address] [place] [address] Care Team Providers Care Cyber Security Engineer Name Role Phone Heaven Calderon MD Unavailable [phone] Allergies Active Allergy Reactions Criticality Noted Date Comments Codeine Unknown 06/06/2014 Other reaction(s): Intolerance-unknown Lisinopril 10/19/2014 Other reaction(s): Dry cough Pregabalin Other 12/01/2023 Medications pantoprazole (ProtoNix) 40 MG packet Take 40 mg by mouth in the morning. Active losartan (Cozaar) 25 MG tablet Take 25 mg by mouth in the morning. 11/24/2023 Active metoprolol succinate XL (Toprol-XL) 50 MG 24 hr tablet Take 50 mg by mouth in the morning. 12/06/2023 Active oxyCODONE-aceta minophen (Percocet) 5-325 MG tablet TAKE 1 TABLET BY MOUTH THREE TIMES A DAY NEEDED FOR PAIN Active spironolactone (Aldactone) 25 MG tablet Take 25 mg by mouth Daily 06/15/2023 Active pramipexole (Mirapex) 1 MG tablet Take 1.5 mg by mouth at bedtime Active Social History Tobacco Use Types Packs/Day Years Used Date Smoking Tobacco: Never Smokeless Tobacco: Never Tobacco Cessation:Counseling Given: Not Answered Alcohol Use Standard Drinks/Week Comments Not Currently 0 (1 standard drink = 0.6 oz pur e alcohol) Comments Unknown Sex and Gender Information Value Date Recorded Sex Assigned at Not on file Legal Sex Female 8:28 PM EDT Gender Identity Not on file Sexual Orientation Not on file Last Filed Vital Signs Vital Sign Reading Time Taken Comments Blood Pressure 119/78 01/17/2024 8:17 AM EDT Pulse 80 01/17/2024 8:17 AM EDT Temperature - - Respiratory Rate 16 12/20/2023 8:30 AM EDT Oxygen Saturation 98% 01/17/2024 8:17 AM EDT Inhaled Oxygen Concentration - - Weight 84.1 kg (185 lb 6.4 oz) 01/17/2024 8:17 A M EDT Height 165.1 cm (5' 5 ) 01/17/2024 8:17 AM EDT Body Mass Index 30.85 01/17/2024 8:17 AM EDT Plan of Treatment Health Maintenance Due Date Last Done Comments Pneumococcal Vaccine: 65+ Ye ars (2 of 2 - PPSV23) 05/09/2016 05/09/2015 Influenza Vaccine (Season Ended) 2025 05/08/2021, 06/10/2020, 04/10/2019, Additional history exists Insurance [facility] MEDICARE ADVANTAGE Care Teams Cyber Security Engineer Relationship Specialty Start Date End Date Heaven Calderon MD [address] [place] [id number] Referring Physician Family Medicine 11/11/23
--- OUTSIDE RECORDS SUMMARY | 2024-11-30 08:22 | XMS_ITS | Patient Health Record ---
Author Organization [facility] Address [address] [place] [address] Care Team Providers Care Information Systems Security Developer Name Role Phone Heaven Calderon Primary Care Provider UnavailAvani Pringle Unavailable [phone] KURTIS ESPOSITO CNP Unavailable Unavailable xxRadha Ramirez Unavailable Allergies Allergen (clinical drug ingredient) Drug/Non Drug Allergy documented on EMR Reaction Allergy Type Onset Date Status codeine codeine Unknown Drug Allergy Active Results Component Value Reference Range Notes TYPE AND SCREEN CAPTURE Reviewed date:04/10/2024 02:24:59 PM Interpretation: Performing Lab: Notes/Report: [facility] Original Ordering Provider: MD AVANI VALLADARES PHD, Interested Provider Role: Ordering ABO CAPTURE O RH CAPTURE (2 D CLONES) NEG INDIRECT SHAKA CAPTURE NEG Performing Lab: see note NV[facility] - [facility] [address] [facility] [address] [facility] Surgery Scheduling (Not yet reviewed by provider) Interpretation: Performing Lab: Notes/Report: Primary Insurance Company: MEDICARE HUMANA Surgeon/Assist: ST WADE/OSWALDO OR LEODAN Surgery Location: [facility] Surgery Date & Time: 02/28/24 @ 11AM Hosp arrival time day of: 8:30AM Surgery End Time: 2:00 PM Procedure: HWR L3-4, L4-S1 DECOMPRESSION WITH FUSION EXTENSION TO L3 Special Equipment: SSEP,CELL SAVER, PRONE,MONALISA TABLE, HERIBERTO Diagnosis: M51.36 DDD LUMBAR Admission Type: INPATIENT Anesthesia Type/CPNB: GENERAL Bed 72 HOUR Post-op Appointment Date: 04/14/24 @ 10:30 [place] Lab Location: [facility] Scrap Separator: YOLANDA Clearance Physician: NADER SCHWARTZ Clearance Appt Date/T [facility] History & Physical Appointment Date/: 02/18/24 @ 11:30AM [facility] Hemoglobin & HCT Reviewed date:04/10/2024 02:24:59 PM Interpretation: Performing Lab: Notes/Report: [facility] Original Ordering Provider: MD AVANI VALLADARES PHD, Interested Provider Role: Ordering HEMOGLOBIN 10.1 12.0-16.0 gm/dl HEMATOCRIT 33.1 37.0-47.0 % Performing Lab: see note [facility] - [facility] [address] [facility] [address] [address] Hemoglobin & HCT Reviewed date:04/10/2024 02:24:59 PM Interpretation: Performing Lab: Notes/Report: [facility] Original Ordering Provider: MD AVANI VALLADARES PHD, Interested Provider Role: Ordering HEMOGLOBIN 9.6 12.0-16.0 gm/dl HEMATOCRIT 31.5 37.0-47.0 % Performing Lab: see note NVML - [facility] [address] [facility] [address] [address] Reason For Referral Reason APPROVED............................02/28/24...........................[employer] MCR HARDWARE REMOVAL L3-4, L4-S1 DECOMPRESSION WITH FUSION EXTENSION TO L3 26537, 91089, 25996, 08874 x2, 78460, 51536 Diagnosi s 1 DDD (degenerative disc disease), lumbar (M51.36) Diagnosi s 2 Lumbar stenosis with neurogenic claudica tion (M48.062) Diagnosi s 3 Lumbar radiculopathy (M54.16) Referral Organiza tion [facility] Refertammie rios Provider First Name Avani rios Provider Last Name St Anuradha rios Provider Speciali ty Orthopedic Surgery Referred Organiza tion [facility] - Inpatient Referred Provider [facility] Referred Address [address] [place] [address],[address],[place], [place],[address] 030,US Procedur e 1 Arthrodesis, posterior lumbar, 1 lumbar level (86566) Procedur e 2 Arthrodesis single, each addn'l level, p osteriolateral technique (34440) Procedur e 3 Laminectomy, facetectomy and foraminotom y single lumbar (45734) Procedur e 4 Laminectomy, facetectomy and foraminotom y additional vertebral segment (62799) Procedur e 5 Posterior segmental instrumentation, 3 t o 6 segments (01334) Procedur e 6 Autograft for spine surgery only; local obtained from same incision (91205) General Notes Yolanda Plaza 02/10/2024 09:04:13 PM >, Ximena Bauer 02/11/2024 07:03:31 AM > REQUESTED CODES, Ximena Bauer 02/11/2024 07:40:36 AM > PLEASE HAVE CLINICALS COMPLETED ANABEL., Yolanda Plaza 02/15/2024 08:26:30 AM >NOTE COMPLETE, Ximena Bauer 02/15/2024 11:01:21 AM > NOTE IS DONE NOW SUSANA, CAN YOU DOUBLE CHECK CODES AND SEND BACK?, Susana Valero 02/15/2024 11:11:08 AM >new codes listes, Ximena Bauer 02/15/2024 11:12:10 AM > THANK YOU, AUTHORIZATION REQUEST SUBMITTED WITH CLINICALS VIA [employer] PROVIDER PORTAL, TRACKING # [id number]., Ximena Bauer 02/16/2024 07:40:28 AM > PENDING, Ximena Bauer 02/21/2024 08:35:06 AM > CASE PENDING ADDITIONAL CLINICALS PER [employer], THEY'RE NEEDING Documentation of smoking status or smoking cessation (as evidenced by negative lab test report for nicotine and cotinine performed within 30 days of planned surgical procedure) , Yolanda Plaza 02/21/2024 08:51:34 AM >LAB PLACED IN SYSTEM AND PATIENT MADE AWARE THAT WILL BE SENT TO [facility] TO BE DONE, Ximena Bauer 02/21/2024 08:57:57 AM > PLEASE LET ME KNOW ANABEL ONCE LABS ARE IN CHART. I WILL SUBMIT TO INSURANCE., Yolanda Plaza 02/21/2024 01:52:14 PM >PATIENT IS A NON SMOKER AND THE CHART HAS BEEN UPDATED, Ximena Bauer 02/21/2024 02:14:35 PM > UPLOADED MEDICAL SUMMARY SHOWING PATIENT IS NONSMOKER VIA [employer] PROVIDER PORTAL., Ximena Bauer 02/23/2024 07:43:40 AM > AUTHORIZATION # [id number] APPROVED AND VALID 02/28/24-03/01/24 PER [employer] PROVIDER PORTAL. SCANNED INTO CHART. Referral Priority Stat Medications Medication SIG (Take, Route, Fr equency, Duration) Notes Start Date End Date Status spironolactone Unkno wn Water Pill Unknown losartan Unknown Protonix Unknown Carafate Unknown Percocet Unknown Mirapex ER Unknown metoprolol Unknown Trazodone Unknown Social History Tobacco Use: Social History Observation Description Date Details (start date - stop date) Never Smoker NA - NA AUDIT-C (Standard) Question Answer Notes Did you have a drink containing alcohol in the p ast year? No Points 0 Interpretation Negative Tobacco Control (Standard) Question Answer Notes Tobacco use: Nonsmoker Problems Problem Type SNOMED Code ICD Code Onset Dates Problem Status W/U Status Risk Notes Problem Lumbar radiculopathy (277755786) Lumbar radiculopathy (M54.16) Active confirmed Problem 774759016 Arthrodesis stat us (Z98.1) Active confirmed Problem Degeneration of lumbosacral intervertebral disc (33656320) Other intervertebral disc degeneration, lumbosacral region (M51.37) Active confirmed Problem Acquired spondylolisthesis (013691896) Spondylolisthesis of lumbar region (M43.16) Active confirmed Problem 45911775 DDD (degenerativ e disc disease), lumbar (M51.36) Active confirmed Problem Spinal stenosis of lumbar region (31536689) Lumbosacral spinal stenosis (M48.07) Active confirmed Problem Neurogenic claudication (967644809) Lumbar stenosis with neurogenic claudication (M48.062) Active confirmed Problem 634252333 Encounter for ot her orthopedic aftercare (Z47.89) Active confirmed Encounters Encounter Location Date Provider Diagnosis [facility] [address] [place] [address] 02/18/2024 Selvon Anh Lumbosacral spinal stenosis M48.07 ; Other intervertebral disc degeneration, lumbosacral region M51.37 and Lumbar radiculopathy M54.16 [facility] [address] [place] [address] [facility] Lumbosacral [facility] stenosis M48.07 ; Other intervertebral disc degeneration, lumbosacral region M51.37 and Spondylolisthesis of lumbar region M43.16 [facility] - Inpatient [address] [place], [place] [id number] 02/28/2024 Avani Rascon Clair Spinal stenosis, lumbosacral region M48.07 and Other intervertebral disc degeneration, lumbosacral region M51.37 [facility] [address] [facility] [place] [address] [place] [address] 04/14/2024 Radha [facility] Encounter for other orthopedic aftercare Z47.89 [facility] [address] [facility] [place] [address] [place] [address] [facility]/02[facility] for other [facility]opedic aftercare Z47.89 and Arthrodesis status Z98.1 [facility] [address] [facility] [place] [address] [place] [address] 09/01/2024 Radha [facility] Encounter for other orthopedic aftercare Z47.89 and Arthrodesis status Z98.1 [place] [address] [place] [address] 03/01/2024 [place] [address] [place] [address] 03/23/20[facility] [place] [address] [place] [address] 04/03/2024 [facility] Aftercare following surgery of the musculoskeletal system Z47.89 Assessments Encounter Date Diagnosis (ICD Code) Assessment Notes Treatment Notes Treatment Clinical Notes Section Notes 02/18/2024 Other intervertebral disc degeneration, lumbosacral region (ICD-10 - M51.37) 02/18/2024 Lumbosacral spinal stenosis (ICD-10 - M48.07) 02/28/2024 Spinal stenosis, lumbosacral region (ICD-10 - M48.07) 02/28/2024 Other intervertebral disc degeneration, lumbosacral region (ICD-10 - M51.37) 04/03/2024 Aftercare following surgery of the musculoskeletal system (ICD-10 - Z47.89) 04/14/2024 Encounter for other orthopedic aftercare (ICD-10 - Z47.89) 1. 6 weeks s/p hardware removal L3-4, L4-S1 decompression/f usion extension to L3 06/02/2024 Arthrodesis status (ICD-10 - Z98.1) 1. 3 months s/p HWR L3-4, L3-5 decompression/f usion 06/02/2024 Encounter for other orthopedic aftercare (ICD-10 - Z47.89) 1. 3 months s/p HWR L3-4, L3-5 decompression/f usion 09/01/2024 Arthrodesis status (ICD-10 - Z98.1) 1. 3 months s/p L3-4 hardware removal, L3-S1 decompression with extension fusion to S1 09/01/2024 Encounter for other orthopedic aftercare (ICD-10 - Z47.89) 1. 3 months s/p L3-4 hardware removal, L3-S1 decompression with extension fusion to S1 02/10/2024 Other intervertebral disc degeneration, lumbosacral region (ICD-10 - M51.37) 1. L5-S1 DDD/neuroforami nal stenosis/neuro claudication 2. L4-5 anterolisthesis /neuroforaminal stenosis 3. L2-3 DDD/neuroforami nal stenosis 02/10/2024 Lumbosacral spinal stenosis (ICD-10 - M48.07) 1. L5-S1 DDD/neuroforami nal stenosis/neuro claudication 2. L4-5 anterolisthesis /neuroforaminal stenosis 3. L2-3 DDD/neuroforami nal stenosis 02/18/2024 Lumbar radiculopathy (ICD-10 - M54.16) *Patient on oxycodone and Baclofen through PM 02/10/2024 Spondylolisthesis of lumbar region (ICD-10 - M43.16) 1. L5-S1 DDD/neuroforami nal stenosis/neuro claudication 2. L4-5 anterolisthesis /neuroforaminal stenosis 3. L2-3 DDD/neuroforami nal stenosis 02/10/2024 Other Patient evaluated by myself and Dr. Gibbs today. Plan established by Dr. Gibbs. CT scan was reviewed with patient by Dr. Gibbs. At this time he is recommending hardware removal of L3-4 and L4-S1 decompression and fusion extension to L3. It was discussed with patient that fusion is necessary due to the fact that total facetecetomy's would need to be performed In order to free up the foraminal stenosis. This would lead to instability requiring a fusion. Surgical risks and benefits were discussed. Risks include, but are not limited to paralysis, infection, dural tear, nerve root injury, nonunion, etc. Patient would like to proceed with surgical intervention. The patient is very much in agreement with the treatment and/or diagnostic plan set forth and all questions were answered to the patient's satisfaction. Thanks once again. If we can be of further service to your patients with disorders of the spine, cervical, thoracic, or lumbar, please do not hesitate to contact Dr. Gibbs. Best regards, 1. L5-S1 DDD/neuroforami nal stenosis/neuro claudication 2. L4-5 anterolisthesis /neuroforaminal stenosis 3. L2-3 DDD/neuroforami nal stenosis 04/14/2024 Other Patient is doing well postoperatively and is working with physical therapy. 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 She can discontinue the LSO brace and gradually return to full activity. We will see her back in 6 weeks for her next postop recheck. The patient is very much in agreement with the treatment and/or diagnostic plan set forth and all questions were answered to the patient's satisfaction. Thanks once again. If we can be of further service to your patients with disorders of the spine, cervical, thoracic, or lumbar, please do not hesitate to contact Dr. Gibbs. Best regards, 1. 6 weeks s/p hardware removal L3-4, L4-S1 decompression/f usion extension to L3 06/02/2024 Other Plan established by Dr. Gibbs. Patient evaluated by myself and Dr. Gibbs today. Patient is doing good from a postoperative standpoint and her hip flexion strength bilaterally has improved with physical therapy. We will see her back in 3 months for her next postop recheck. The patient is very much in agreement with the treatment and/or diagnostic plan set forth and all questions were answered to the patient's satisfaction. Thanks once again. If we can be of further service to your patients with disorders of the spine, cervical, thoracic, or lumbar, please do not hesitate to contact Dr. Gibbs. Best regards, 1. 3 months s/p HWR L3-4, L3-5 decompression/f usion 09/01/2024 Other Plan established by Dr. Gibbs. Patient evaluated by myself and Dr. Gibbs today. Patient is doing well and working on increasing activity. We will see her back in 3 months for her next postop recheck. The patient is very much in agreement with the treatment and/or diagnostic plan set forth and all questions were answered to the patient's satisfaction. Thanks once again. If we can be of further service to your patients with disorders of the spine, cervical, thoracic, or lumbar, please do not hesitate to contact Dr. Gibbs. Best regards, 1. 3 months s/p L3-4 hardware removal, L3-S1 decompression with extension fusion to S1 Plan Of Treatment Pending Test Test Name Order Date Lumbar spine, 4v flex ext - 95187 2023 Lumbar spine, 4v flex ext - 79085 2024 Lumbar spine 2v ap and lat - 40237 04/14 Lumbar spine 2v ap and lat - 67079 06/02 Surgery Scheduling 02/10/2024 DME - Lumbar Support, Surgical OTS 02/17 SFS - Lumbar Spine PT Order, Isometrics & Strenghening w/Modalities as needed, 2-3 times per week for 6 weeks 04/03/2024 Type and Cross Blood 2 units 02/18/2024 Future Test Test Name Order Date Chest 2 views - 36600 02/10/2024 CBC 02/10/2024 PT/PTT 02/10/2024 BMP 02/10/2024 MRSA (Bilateral Nares) PCR 02/10/2024 EKG 02/10/2024 Next Appt Details Provider Name:Avani Corazon Arevalo, 12/22/2024 11:30:00 AM, [address] [place], [address], Insurance Providers Payer Name Payer Address Payer Phone Subscriber Number Group Number Insured Name Patient Relationship to Insured Coverage Start Date Coverage End Date Medicare [employer] [address] [address] [place] [address] [id number] SAUL GUTIÉRREZ Self - patient is the insured Medical (General) History Medical History History ICD Code High Blood Pressure Abnormal Heart Rhythm Stomach ulcers Gastric Reflux Irritable bowel syndrome Kidney stones Pacemaker or AICD Surgical History Surgery Date(Month/Year) L3-S1 laminectomy, PSF 01/2024 Pacemaker Lumbar surgery Hand surgery 2019
--- OUTSIDE RECORDS SUMMARY | 2024-11-30 08:22 | XMS_ITS | Encounter Summary ---
Author Organization [employer] s tem Address [id number] [address] [place] [address] Care Team Providers Care Assistant Guest Services Manager Name Role Phone Heaven Calderon Jessenia INVESTMENT ADVISOR-POLISHER HAND Primary Care Provider Reason for Visit * Reason Comments Med Refill Encounter Details Date Type Department Care Team (Late st Contact Info) Description 04/27/2023 Refill [facility] [address] [place] [place] [id number] Mac Erwin APRN-POLISHER HAND [address] [place] [address] Med Refill Social History Tobacco Use Types [...] encounter Miscellaneous Notes * Telephone Encounter - Deisy Kraft RN - 04/27/2023 9:06 AM EST Filled for 90 days on 03/18/23, Pt needs appt. documented in this encounter Plan of Treatment Not on file documented as of this encounter Visit Diagnoses Not on filedocumented in this encounter Care Teams Assistant Guest Services Manager Relationship Specialty Start Date End Date Heaven Calderon, INVESTMENT ADVISOR-POLISHER HAND [address] [place] [phone] PCP - General Family Medicine 10/30/21 documented as of this encounter
--- OUTSIDE RECORDS SUMMARY | 2024-11-30 08:22 | XMS_ITS | Encounter Summary ---
Author Organization [facility] Address [id number] [address] [place] [address] Care Team Providers Care Anodic Treater Name Role Phone Heaven Calderon Jessenia CONTOUR GRINDER-LAB TECHNOLOGIST Primary Care Provider Reason for Visit * Reason Comments Med Refill Encounter Details Date Type Department Care Team (Late st Contact Info) Description 03/10/2024 Refill [facility] [address] [place] [phone] Mac Erwin APRN-LAB TECHNOLOGIST [address] [place] [address] Med Refill Social History Tobacco Use Types [...] encounter Miscellaneous Notes * Telephone Encounter - Shilpi Brian RN - 03/10/2024 12:42 AM EDT Images from the original note were not included. documented in this encounter Plan of Treatment Not on file documented as of this encounter Visit Diagnoses Not on filedocumented in this encounter Care Teams Anodic Treater Relationship Specialty Start Date End Date Heaven Calderon, CONTOUR GRINDER-LAB TECHNOLOGIST [address] [place] [phone] PCP - General Family Medicine 10/30/21 documented as of this encounter
--- OUTSIDE RECORDS SUMMARY | 2024-11-30 08:22 | XMS_ITS | Patient Health Record ---
Author Organization [facility] [place] Address [address] [place] [address] Care Team Providers Care Dietitian Teaching Name Role Phone Heaven Staley Primary Care Provider All Alvarez [phone] Allergies Allergen (clinical drug ingredient) Drug/Non Drug Allergy documented on EMR Reaction Allergy Type Onset Date Status pregabalin Lyrica Unknown Drug Allergy Active codeine Codeine Unknown Drug Allergy Active lisinopril Lisinopril Unknown Drug Allergy Activ e Results Component Value Reference Range Notes CT lumbar spine wo con Reviewed date:12/28/2023 10:37:40 AM Interpretation: Performing Lab: Notes/Report: Source Facility: [place] [address] CT Scan Report Signed Patient: SAUL GUTIÉRREZ MR#: [id number] : 1945 Acct:[id number] Age/Sex: 78 / F ADM Date: 12/27/23 Loc: CT Attending Dr: Kurtis Ramey NP Ordering Physician: Kurtis Ramey NP Date of Service: 12/27/23 Procedure(s): CT lumbar spine wo con Accession Number(s): [id number] cc: HEAVEN STALEY [place] [address] Patient Name: SAUL GUTIÉRREZ MRN: [id number]:[id number] date: 1945 Sex: F Assigned Patient Location: CT Current Patient Location: Accession/Order Number: [id number] Exam Date: 12/27/2023 13:30 Report Date: 12/28/2023 08:53 At the request of: KURTIS RAMEY Procedure: CT lumbar spine wo con EXAMINATION: CT lumbar spine wo con HISTORY: lumbar stenosis with neuroclaudication COMPARISON: No relevant comparison available. TECHNIQUE: Axial, Coronal, and Sagittal CT images were created without I.V. contrast material. Dose reduction techniques were achieved by using automated exposure control and/or adjustment of mA and/or kV according to patient size and/or use of iterative reconstruction technique. FINDINGS: PARASPINAL AREA: Normal with no visible mass. Mild vascular calcifications BONES: 5 mm anterolisthesis of L4 in relation L5. Posterior decompression bilateral transpedicular fusion L3-L4 with no mechanical failure. Moderate diffuse degenerative spondylosis and facet osteoarthropathy DISC LEVELS: 12-L1: No significant disc/facet abnormality, spinal stenosis, or foraminal stenosis. L1-L2: No significant disc/facet abnormality, spinal stenosis, or foraminal stenosis. L2-L3: Moderate to severe disc space narrowing with endplate sclerosis and vacuum disc. Mild diffuse disc/osteophyte complex and facet osteoarthropathy. Moderate right foraminal stenosis. No central canal or left foraminal stenosis L3-L4: Bilateral transpedicular fusion. Anterior body spacer. No central or foraminal stenosis L4-L5: Bilateral transpedicular fusion. 5 mm anterolisthesis of L4 on L5. Severe disc space narrowing with endplate sclerosis and vacuum disc. Moderate diffuse disc/osteophyte complex. No central canal stenosis. Moderate bilateral foraminal stenosis L5-S1: Disc collapse with endplate sclerosis and vacuum disc. Bilateral facet osteoarthropathy. No central canal stenosis or right foraminal stenosis. Moderate narrowing of the left neural foramen CT/CT lumbar spine wo con IMPRESSION: Degenerative changes with posterior L3-L4 fusion Multilevel foraminal stenosis detailed above Electronically authenticated by: YVES JOHNSON Date: 12/28/2023 08:53 Dictated By: Yves Johnson M.D. Signed By: 12/28/23 0856 DD/ 0853 TD/TT: Child Neurologist: [place] [address] CT Scan Report Signed Patient: GEORGINA GUTIÉRREZ MR#: [id number] : 1945 Acct:[id number] Age/Sex: 78 / F ADM Date: 12/27/23 Loc: CT Attending Dr: Kurtis land NP Ordering Physician: Kurtis Ramey NP Date of Service: 12/27/23 Procedure(s): CT lum bar spine wo con Accession Number(s): [id number] cc: HEAVEN STALEY [place] [address] Patient Name: SAUL GUTIÉRREZ MRN: [facility]:[id number] date: 1945 Sex: F Assigned Patient Location: CT Current Patient Location: Accession/Order Numb er: [id number] Exam Date: 12/27/2023 13:30 Report Date: 12/28/2023 08:53 At the request of: KURTIS RAMEY Procedure: CT lumbar spine wo con EXAMINATION: CT lumb ar spine wo con HISTORY: lumbar sten osis with neuroclaudication COMPARISON: No relev ant comparison available. TECHNIQUE: Axial, Coronal, and Sagittal CT images were created without I.V. contrast material. D ose reduction techniques were achieved by using automated exposure control and /or adjustment of mA and/or kV according to patient size and/or use of iterat arlyn reconstruction technique. FINDINGS: PARASPINAL AREA: Nor mal with no visible mass. Mild vascular calcifications BONES: 5 mm anterolisthesis of L4 in relation L5. Posterior decompression bilateral transpedic ular fusion L3-L4 with no mechanical failure. Moderate diffuse degenerative spondylosis and facet osteoarthropathy DISC LEVELS: 12-L1: No significan t disc/facet abnormality, spinal stenosis, or foraminal stenosis. L1-L2: No significan t disc/facet abnormality, spinal stenosis, or foraminal stenosis. L2-L3: Moderate to s evere disc space narrowing with endplate sclerosis and vacuum disc. Mild di ffuse disc/osteophyte complex and facet osteoarthropathy. Moderate right eliseo inal stenosis. No central canal or left foraminal stenosis L3-L4: Bilateral transpedicular fusion. Anterior body spacer. No central or foraminal stenosis L4-L5: Bilateral transpedicular fusion. 5 mm anterolisthesis of L4 on L5. Severe disc space narrowing with endplate sclerosis and vacuum disc. Moderate diffuse disc/osteoph yte complex. No central canal stenosis. Moderate bilateral foraminal stenosis L5-S1: Disc collapse with endplate sclerosis and vacuum disc. Bilateral facet osteoarthropathy. No central canal stenosis or right foraminal stenosis. Moderate narrowing o f the left neural foramen C T/CT lumbar spine wo con IMPRESSION: Degenerative changes with posterior L3-L4 fusion Multilevel foraminal stenosis detailed above Electronically authenticated by: YVES JOHNSON Date: 12/28/2023 08:53 Dictated By: Luis Johnson M.D. Signed By: 12/28/23 0856 DD/ 0853 TD/TT: Child Neurologist: XR lumbar spine min 4V Reviewed date:02/14/2024 10:30:19 AM Interpretation: Performing Lab: Notes/Report: Source Facility: [place] [address] XRay Report Signed Patient: SAUL GUTIÉRREZ MR#: [id number] : 1945 Acct:[id number] Age/Sex: 78 / F ADM Date: 02/10/24 Loc: RAD Attending Dr: Avani Gibbs M.D. Ordering Physician: Avani Gibbs M.D. Date of Service: 02/10/24 Procedure(s): XR lumbar spine min 4V Accession Number(s): [id number] cc: HEAVEN STALEY ; Avani Gibbs M.D. [place] [address] Patient Name: SAUL GUTIÉRREZ MRN: [id number]:[id number] date: 1945 Sex: F Assigned Patient Location: [facility] Current Patient Location: Accession/Order Number: [id number] Exam Date: 02/10/2024 13:30 Report Date: 02/12/2024 07:55 At the request of: AVANI GIBBS Procedure: XR lumbar spine min 4V EXAMINATION: XR lumbar spine min 4V HISTORY: LUMBAR SPINE PAIN COMPARISON: XR lumbar spine 11/03/2022 FINDINGS: BONES: Mechanical fusion L3-L4 via bilateral pedicle screws and rods; no appreciable hardware fracture loosening. Grade 1 anterior listhesis of L4 on 5; no change in alignment during flexion and extension. Mild left convex curvature lumbar spine. Multilevel moderate degenerative facet arthropathy. DISC SPACES: Intervertebral disc spacer L3-L4. Moderate narrowing L2-L3, L4-L5. Marked narrowing L5-S1. PARASPINOUS: Negative. No paraspinous abnormality is seen. OTHER: Negative. XR/XR lumbar spine min 4V IMPRESSION: 1. Stable surgical changes without evidence of hardware failure or change in alignment. 2. Grade 1 anterior listhesis of L4 on 5; slightly progressed compared to prior study. 3. Multilevel degenerative disc disease and facet arthropathy detailed above. Electronically authenticated by: SHAR VALENZUELA Date: 02/12/2024 07:55 Dictated By: Shar Valenzuela M.D. Signed By: 02/12/24 0758 DD/ 0755 TD/TT: Child Neurologist: [place] [address] XRay Report Signed Patient: GEORGINA GUTIÉRREZ MR#: [id number] : 1945 Acct:[id number] Age/Sex: 78 / F ADM Date: 02/10/24 Loc: [facility] Attending Dr: Avani Gibbs M.D. Ordering Physician: Avani Gibbs M.D. Date of Service: 02/10/24 Procedure(s): XR lum bar spine min 4V Accession Number(s): [id number] cc: HEAVEN STALEY ; Avani Gibbs M.D. [address] [address] Patient Name: SAUL GUTIÉRREZ MRN: [facility]:[id number] date: 1945 Sex: F Assigned Patient Location: [facility] Current Patient Location: Accession/Order Numb er: [id number] Exam Date: 02/10/2024 13:30 Report Date: 02/12/2024 07:55 At the request of: AVANI GIBBS Procedure: XR lumbar spine min 4V EXAMINATION: XR lumb ar spine min 4V HISTORY: LUMBAR SPIN E PAIN COMPARISON: XR lumba r spine 11/03/2022 FINDINGS: BONES: Mechanical fu juan L3-L4 via bilateral pedicle screws and rods; no appreciable hardware fracture loosening. Grade 1 anterior listhesis of L4 on 5; no change in alignme nt during flexion and extension. Mild left convex curvature lumbar spine. Multil evel moderate degenerative facet arthropathy. DISC SPACES: Intervertebral disc spacer L3-L4. Moderate narrowing L2-L3, L4-L5. Marked narrowing L5-S1. PARASPINOUS: Negativ e. No paraspinous abnormality is seen. OTHER: Negative. X R/XR lumbar spine min 4V IMPRESSION: 1. Stable surgical changes without evidence of hardware failure or change in alignment. 2. Grade 1 anterior listhesis of L4 on 5; slightly progressed compared to prior study. 3. Multilevel degenerative disc disease and facet arthropathy detailed above. Electronically authenticated by: SHAR VALENZUELA Date: 02/12/2024 07:55 Dictated By: Shar Valenzuela M.D. Signed By: 02/12/24 0758 DD/ 0755 TD/TT: Child Neurologist: PROF Cannon(COMP METB) Reviewed date:02/23/2024 11:42:40 AM Interpretation: Performing Lab: Notes/Report: [facility] , Sodium 141 136-145 mmol/L Potassium 4.6 3.5-5.1 mmol/L Chloride 108 98-107 mmol/L Carbon Dioxide 27.0 21.0-32.0 mmol/L Anion Gap 10.6 Glucose 84 74-106 mg/dL Blood Urea Nitrogen 56.0 7.0-18.0 mg/dL Creatinine 1.62 0.55-1.02 mg/dL Estimated GFR ( Ivana 37 >=60 Estimated GFR (Non- Aisha 31 >=60 BUN Creatinine Ratio 34.6 Calcium 8.9 8.5-10.1 mg/dL Bilirubin Total 0.6 0.2-1.0 mg/dL Aspartate Amino Transferase 20 15-37 U/L Alanine Aminotransferase 26 14-59 U/L Alkaline Phosphatase 117 46-116 U/L Total Protein 6.8 6.4-8.2 g/dL Albumin Level 3.2 3.4-5.0 g/dL Globulin 3.6 Albumin Globulin Ratio 0.9 Performing Lab: see note ML - [facility] CA echo doppler complete Reviewed date:04/05/2024 12:19:04 PM Interpretation: Performing Lab: Notes/Report: Source Facility: [facility]-[address] [place] [address] [place] [address] Cardiology Report Signed Patient: SAUL GUTIÉRREZ MR#: [id number] : 1945 Acct:[id number] Age/Sex: 78 / F ADM Date: 04/03/24 Loc: CARD Attending Dr: Robert Madden M.D. Ordering Physician: Robert Madden M.D. Date of Service: 04/03/24 Procedure(s): CA echo doppler complete Accession Number(s): [id number] cc: HEAVEN STALEY ; Robert Madden M.D. Patient Name: SAUL GUTIÉRREZ MR#: [id number] : 1945 Exam Date: 04/03/2024 Ordering Doctor: ROBERT MADDEN ECHOCARDIOGRAM REPORT PROCEDURE: CA ECHO DOPPLER COMPLETE INDICATIONS: Atrial fibrillation/flutter I48.19 COMPARISON: None. DESCRIPTION: COMPLETE ECHOCARDIOGRAM Real-time transthoracic echocardiography with 2D, M-mode, spectral and color flow Doppler performed. QUALITY: Technical quality was good. LEFT VENTRICLE: Normal chamber size. Mild concentric left ventricular hypertrophy. Left ventricular ejection fraction is lower limits of normal. LV EF: Ejection fraction is estimated at 50 to 55%. DIASTOLIC: Not adequately assessed due to heart rhythm. ATRIAL SEPTUM: LEFT ATRIUM: Severe dilatation. RIGHT ATRIUM: Moderate dilatation. RIGHT VENTRICLE: Normal chamber size. Normal right ventricular systolic function. Pacer wire present. TRICUSPID VALVE: Normal mobility and thickness. No stenosis with trivial regurgitation. No evidence of pulmonary hypertension. RVSP 33 mmHg MITRAL VALVE: Normal mobility and thickness. No evidence of mitral valve stenosis. Mild mitral annular calcification. Mild mitral regurgitation. AORTIC VALVE: Normal trileaflet appearance. Mildly calcified aortic valve. Normal leaflet mobility. No evidence of aortic valve stenosis. Trivial aortic regurgitation. AORTIC ROOT: Normal diameter and appearance. Mild dilatation of the ascending aorta measuring 3.8 cm. PULMONIC VALVE: Normal thickness and mobility. No stenosis. No regurgitation. PERICARDIUM: No evidence of pericardial effusion. IVC: Collapses with inspirations. Normal size. PLEURA: CONCLUSION: 1. Mild concentric left regular hypertrophy with low normal systolic function. LVEF is estimated at 50 to 55%. 2. The right ventricle is normal in size and systolic function. 3. Moderate severe biatrial dilatation. 4. Mild mitral regurgitation. 5. Normal right-sided pressures. 6. Mildly dilated ascending aorta. Adult Echocardiography Procedure Report Left Ventricle LVEDD (3.7 - 5.6 cm): 4.79 cm LVESD (2.2 - 4.0 cm): 4.06 cm LVIVS thickness (0.6 - 1.2 cm): 1.17 cm LVPW thickness (0.5 - 1.0 cm): 1.21 cm e': 0.09 m/s E - e': 11.98 LVOT Max Gradient: 1.93 mm[Hg], 2.18 mm[Hg] LVOT Area (cm2): 0.72 m/s Peak Velocity (LVOT): 0.70 m/s, 0.74 m/s Mean Velocity (LVOT): 0.57 m/s LVOT Diameter 2.13 cm Left Ventricular Ejection Fraction: 50-55 % Left Atrium LA Volume Index (2D A2C): 83.81 ml/m2 Left Atrium Systolic Dimension: 4.95 cm Mitral Valve Mitral Valve E-Wave Peak Velocity: 1.10 m/s Right Ventricle RV Internal Diastolic Dimension: 4.10 cm Aorta AO Root Diam: 3.62 cm Ascending Ao Diam: 3.77 cm Aortic Valve AoV Area (Peak Rob): 1.99 cm2, 1.93 cm2 AoV Area (VTI): 1.89 cm2, 2.01 cm2 Peak Velocity(Antegrade Flow): 1.29 m/s Peak Gradient(Antegrade Flow): 6.64 mm[Hg] Mean Velocity(Antegrade Flow): 0.86 m/s Mean Gradient(Antegrade Flow): 3.39 mm[Hg] Velocity Time Integral: 30.85 cm Tricuspid Valve Peak Velocity (Regurgitant Flow): 2.18 m/s, 2.67 m/s, 2.74 m/s Pulmonic Valve Mean Gradient: 1.99 mm[Hg] Mean Velocity: 0.65 m/s Peak Velocity: 1.09 m/s Peak Gradient: 4.74 mm[Hg] Right Atrium Right Atrium Systolic Pressure: 79.46 ml, 79.46 ml Dictated by: Lauro Lou M.D. on 04/04/2024 at 18:35 Approved by: Lauro Lou M.D. on 04/04/2024 at 18:39 Dictated By: LAURO LOU Signed By: 04/04/241839 DD/ 38 TD/TT: Child Neurologist: [place] [address] Cardiology Report Signed Patient: GEORGINA GUTIÉRREZ MR#: [id number] : 1945 Acct:[id number] Age/Sex: 78 / F ADM Date: 04/03/24 Loc: CARD Attending Dr: Robert veliz M.D. Ordering Physician: Robert Madden M.D. Date of Service: 04/03/24 Procedure(s): ND ech o doppler complete Accession Number(s): [id number] cc: HEAVEN STALEY ; Robert Madden M.D. Patient Name: SAUL GUTIÉRREZ MR#: [id number] : 1945 Exam Date: 04/03/2024 Ordering Doctor: JONNY MADDEN ECHOCARDIOGRAM REPORT PROCEDURE: CA ECHO DOPPLER COMPLETE INDICATIONS: Atrial fibrillation/flutter I48.19 COMPARISON: None. DESCRIPTION: COMPLET E ECHOCARDIOGRAM Real-time transthoracic echocardiography wit h 2D, M-mode, spectral and color flow Doppler performed. QUALITY: Technical quality was good. LEFT VENTRICLE: Norm al chamber size. Mild concentric left ventricular hypertrophy. Left ventricular ejection fraction is lower limits of normal. LV EF: Ejection frac tion is estimated at 50 to 55%. DIASTOLIC: Not adequ ately assessed due to heart rhythm. ATRIAL SEPTUM: LEFT ATRIUM: Severe dilatation. RIGHT ATRIUM: Modera te dilatation. RIGHT VENTRICLE: Nor mal chamber size. Normal right ventricular systolic function. Pacer wire present. TRICUSPID VALVE: Nor mal mobility and thickness. No stenosis with trivial regurgitation. No evidence of pulmonary hypertension. RVSP 33 mmHg MITRAL VALVE: Normal mobility and thickness. No evidence of mitral valve stenosis. Mild fariha l annular calcification. Mild mitral regurgitation. AORTIC VALVE: Normal trileaflet appearance. Mildly calcified aortic valve. Normal leaflet mobil ity. No evidence of aortic valve stenosis. Trivial aortic regurgitation. AORTIC ROOT: Normal diameter and appearance. Mild dilatation of the ascending aorta brad uring 3.8 cm. PULMONIC VALVE: Norm al thickness and mobility. No stenosis. No regurgitation. PERICARDIUM: No sharron dence of pericardial effusion. IVC: Collapses with inspirations. Normal size. PLEURA: CONCLUSION: 1. Mild concentric l eft regular hypertrophy with low normal systolic function. LVEF is estimated at 50 to 55%. 2. The right ventric le is normal in size and systolic function. 3. Moderate severe biatrial dilatation. 4. Mild mitral regurgitation. 5. Normal right-side d pressures. 6. Mildly dilated ascending aorta. Adult Echocardiograp hy Procedure Report Left Ventricle LVEDD (3.7 - 5.6 cm) : 4.79 cm LVESD (2.2 - 4.0 cm) : 4.06 cm LVIVS thickness (0.6 - 1.2 cm): 1.17 cm LVPW thickness (0.5 - 1.0 cm): 1.21 cm e': 0.09 m/s E - e': 11.98 LVOT Max Gradient: 1 .93 mm[Hg], 2.18 mm[Hg] LVOT Area (cm2): 0.72 m/s Peak Velocity (LVOT) : 0.70 m/s, 0.74 m/s Mean Velocity (LVOT) : 0.57 m/s LVOT Diameter 2.13 cm Left Ventricular Eje ction Fraction: 50-55 % Left Atrium LA Volume Index (2D A2C): 83.81 ml/m2 Left Atrium Systolic Dimension: 4.95 cm Mitral Valve Mitral Valve E-Wave Peak Velocity: 1.10 m/s Right Ventricle RV Internal Diastoli c Dimension: 4.10 cm Aorta AO Root Diam: 3.62 cm Ascending Ao Diam: 3 .77 cm Aortic Valve AoV Area (Peak Rob): 1.99 cm2, 1.93 cm2 AoV Area (VTI): 1.89 cm2, 2.01 cm2 Peak Velocity(Antegr latonya Flow): 1.29 m/s Peak Gradient(Antegr latonya Flow): 6.64 mm[Hg] Mean Velocity(Antegr latonya Flow): 0.86 m/s Mean Gradient(Antegr latonya Flow): 3.39 mm[Hg] Velocity Time Integr al: 30.85 cm Tricuspid Valve Peak Velocity (Regurgitant Flow): 2.18 m/s, 2.67 m/s, 2.74 m/s Pulmonic Valve Mean Gradient: 1.99 mm[Hg] Mean Velocity: 0.65 m/s Peak Velocity: 1.09 m/s Peak Gradient: 4.74 mm[Hg] Right Atrium Right Atrium Systoli c Pressure: 79.46 ml, 79.46 ml Dictated by: Lauro Lou M.D. on 04/04/2024 at 18:35 Approved by: Lauro Lou M.D. on 04/04/2024 at 18:39 Dictated By: LAURO LOU Signed By: 04/04/241839 DD/ 38 TD/TT: Child Neurologist: US renal BI Reviewed date:09/11/2024 01:05:31 PM Interpretation: Performing Lab: Notes/Report: Source Facility: [place] [address] Ultrasound Report Signed Patient: SAUL GUTIÉRREZ MR#: [id number] : 1945 Acct:[id number] Age/Sex: 79 / F ADM Date: 09/11/24 Loc: US Attending Dr: JULIANA TIMMONS Ordering Physician: JULIANA TIMMONS Date of Service: 09/11/24 Procedure(s): US renal BI Accession Number(s): [id number] cc: HEAVEN STALEY ; JULIANA TIMMONS [place] [address] Patient Name: SAUL GUTIÉRREZ MRN: [id number] date: 1945 Sex: F Assigned Patient Location: US Current Patient Location: US Accession/Order Number: [id number] Exam Date: 09/11/2024 11:20 Report Date: 09/11/2024 11:30 At the request of: JULIANA TIMMONS Procedure: US renal BI BILATERAL RENAL AND BLADDER ULTRASOUND CLINICAL HISTORY: Stage 3 Chronic Kidney Disease, Hypertensive Renal Disease COMPARISON: CT 06/16/2022 Estimation of renal size is approximately 10.7 cm on the right and 10.2 cm on the left. No shadowing calculi or hydronephrosis are identified. There are cysts bilaterally, largest at the upper pole on the right measuring 18 x 16 x 16 mm. There is no perinephric fluid. The urinary bladder is partially distended with a volume of 98 mL. No contour or intraluminal abnormalities are seen. US/US renal BI IMPRESSION: SMALL RENAL CYSTS. NO OBSTRUCTIVE UROPATHY. Impression dictated by: Adelaida Davis M.D.09/11/2024 11:30 AM Dictation Location: [place] [address] Electronically authenticated by: [id number] Y Date: 09/11/2024 11:30 Dictated By: Adelaida Davis M.D. Signed By: 09/11/24 1132 DD/ 1130 TD/TT: Child Neurologist: [place] [address] Ultrasound Report Signed Patient: GEORGINA GUTIÉRREZ MR#: [id number] : 1945 Acct:[id number] Age/Sex: 79 / F ADM Date: 09/11/24 Loc: US Attending Dr: JULIANA TIMMONS Ordering Physician: JULIANA TIMMONS Date of Service: 09/11/24 Procedure(s): US renal BI Accession Number(s): [id number] cc: HEAVEN STALEY ; JULIANA TIMMONS [place] [address] Patient Name: SAUL GUTIÉRREZ MRN: [id number] date: 1945 Sex: F Assigned Patient Location: US Current Patient Loca tion: US Accession/Order Numb er: [id number] Exam Date: 09/11/2024 11:20 Report Date: 09/11/2024 11:30 At the request of: JULIANA TIMMONS Procedure: US renal BI BILATERAL RENAL AND BLADDER ULTRASOUND CLINICAL HISTORY: St age 3 Chronic Kidney Disease, Hypertensive Renal Disease COMPARISON: CT 06/16/2022 Estimation of renal size is approximately 10.7 cm on the right and 10.2 cm on the left. No shadowi ng calculi or hydronephrosis are identified. There are cysts bilaterally, largest at the upper pole on the right measuring 18 x 16 x 16 mm. There is no perinephric fluid. The urinary bladder is partially distended with a volume of 98 mL. No contour or intralumi nal abnormalities are seen. U S/US renal BI IMPRESSION: SMALL RENAL CYSTS. NO OBSTRUCTIVE UROPATHY. Impression dictated by: Adelaida Davis M.D.09/11/2024 11:30 AM Dictation Location: [place] [address] Electronically authenticated by: [id number] Y Date: 09/11/2024 11:30 Dictated By: Adelaida Davis M.D. Signed By: 09/11/24 1132 DD/ 1130 TD/TT: Child Neurologist: RENAL FUNCTION PANEL Reviewed date:10/09/2024 11:40:30 AM Interpretation: Performing Lab: Notes/Report: [facility] , Sodium 139 136-145 mmol/L Potassium 4.6 3.5-5.1 mmol/L Chloride 105 98-107 mmol/L Carbon Dioxide 28.4 21.0-32.0 mmol/L Anion Gap 10.2 Glucose 85 74-106 mg/dL Blood Urea Nitrogen 30.0 7.0-18.0 mg/dL Creatinine 1.33 0.55-1.02 mg/dL Estimated GFR ( Ivana 47 >=60 mL/min/1.73m 2 Estimated GFR (Non- Aisha 38 >=60 mL/min/1.73m 2 BUN Creatinine Ratio 22.6 Calcium 8.9 8.5-10.1 mg/dL Phosphorus 3.9 2.6-4.7 mg/dL Albumin Level 3.2 3.4-5.0 g/dL Performing Lab: see note ML - [facility] UA RANDOM W or MICROSCOPIC Reviewed date:10/09/2024 11:40:30 AM Interpretation: Performing Lab: Notes/Report: [facility] , Color Urine YELLOW YELLOW Clarity Urine CLEAR CLEAR Specific [place] Urine 1.015 1.005-1.025 pH Urine 6.0 5.0-9.0 Protein Urine NEGATIVE NEG/TRACE mg/dL Glucose Urine UA 500 NEGATIVE mg/dL Bilirubin Urine NEGATIVE NEGATIVE Ketones Urine NEGATIVE NEGATIVE mg/dL Blood Urine NEGATIVE NEGATIVE Nitrite Urine NEGATIVE NEGATIVE Urobilinogen Urine 0.2 0.2-1.0 EU/dL Leukocyte Esterase Urine NEGATIVE NEGATIVE WBC Urine 0-2 NONE SEEN #/HPF RBC Urine 0-2 0-2 #/HPF Bacteria Urine NONE SEEN NONE SEEN #/HPF Mucus Urine NONE SEEN NONE SEEN Squamous Epithelial Cell Urine RARE NONE/RARE #/LPF Crystals Seen? None Seen None Seen #/HPF Cast Seen? NONE SEEN NONE SEEN #/LPF Performing Lab: see note - [facility] URIC ACID SERUM Reviewed date:10/09/2024 11:40:30 AM Interpretation: Performing Lab: Notes/Report: [facility] , Uric Acid 6.1 2.6-6.0 mg/dL Performing Lab: see note [facility] VITAMIN D 25 [place] Reviewed date:10/09/2024 11:40:30 AM Interpretation: Performing Lab: Notes/Report: [facility] , Vitamin D 46.5 20-<30 ng/mL Vit D insufficient <20 ng/mL Vit D deficient 30-100 ng/mL Vit D sufficient >100 ng/mL Potential Toxicity Performing Lab: see note - [facility] XR cervical spine 5V Reviewed date:11/16/2024 10:39:45 AM Interpretation: Performing Lab: Notes/Report: Source Facility: [place] [address] [place] [id number] XRay Report Signed Patient: SAUL GUTIÉRREZ MR#: [id number] : 1945 Acct:[id number] Age/Sex: 79 / F ADM Date: 11/13/24 Loc: RAD Attending Dr: Kurtis Ramey NP Ordering Physician: Kurtis Ramey NP Date of Service: 11/13/24 Procedure(s): XR cervical spine 5V Accession Number(s): [id number] cc: HEAVEN STALEY ; Kurtis Ramey NP [place] [address] Patient Name: SAUL GUTIÉRREZ MRN: [id number] date: 1945 Sex: F Assigned Patient Location: [facility] Current Patient Location: [facility] Accession/Order Number: [id number] Exam Date: 11/13/2024 10:22 Report Date: 11/13/2024 10:27 At the request of: KURTIS RAMEY NP Procedure: XR cervical spine 5V CERVICAL SPINE - 5 views: CLINICAL HISTORY: Right neck pain and arm numbness AP, lateral, both oblique and odontoid views were obtained. There is osteopenia. There is straightening of the normal cervical curvature. No acute compression fractures are seen. There is slight anterolisthesis of C2 on C3 and 3 mm of anterolisthesis of C3 on C4. Mild disc space narrowing is present at C3-4, moderate at C4-5 and severe at C5-6 and C6-7. There is endplate sclerosis at C5-6. Endplate spurring is present throughout and there is also facet disease. There is potential moderate bony foraminal encroachment at C3-4 and mild to moderate at C4-5 and C5-6 on the left. On the right, there is moderate bony foraminal encroachment at C5-6. The atlantoaxial relationship is maintained. There is no prevertebral soft tissue swelling. XR/XR cervical spine 5V IMPRESSION: OSTEOPENIA. LOSS OF NORMAL CERVICAL CURVATURE AND MULTILEVEL DEGENERATIVE CHANGES. Impression dictated by: Adelaida Davis M.D. 11/13/2024 10:27 AM Dictation Location: [place] [address] Electronically authenticated by: [id number] Y Date: 11/13/2024 10:27 Dictated By: Adelaida Davis M.D. Signed By: 11/13/24 1029 DD/ 1027 TD/TT: Child Neurologist: [address] [address] XRay Report Signed Patient: GEORGINA GUTIÉRREZ MR#: [id number] : 1945 Acct:[id number] Age/Sex: 79 / F ADM Date: 11/13/24 Loc: [facility] Attending Dr: Kurtis G antz [employer] Ordering Physician: Kurtis Ramey NP Date of Service: 11/13/24 Procedure(s): XR cer vical spine 5V Accession Number(s): [id number] cc: HEAVEN STALEY ; Kurtis Ramey NP [place] [id number] Patient Name: SAUL GUTIÉRREZ MRN: [id number] date: 1945 Sex: F Assigned Patient Location: [facility] Current Patient Loca tion: RAD Accession/Order Numb er: [id number] Exam Date: 11/13/2024 10:22 Report Date: 11/13/2024 10:27 At the request of: KURTIS RAMEY NP Procedure: XR cervic al spine 5V CERVICAL SPINE - 5 views: CLINICAL HISTORY: Ri ght neck pain and arm numbness AP, lateral, both ob lique and odontoid views were obtained. There is osteopenia. There is straightening of the normal cervical curvature. No acute compression fractures are seen. There is slight anterolisthesis of C2 on C3 and 3 mm of anterolisthesis of C3 on C4. Mild disc space narrowing is present at C3-4, mod erate at C4-5 and severe at C5-6 and C6-7. There is endplate sclerosis a t C5-6. Endplate spurring is present throughout and there is also facet diseas e. There is potential moderate bony foraminal encroachment at C3-4 and mild to moderate at C4-5 and C5-6 on the left. On the right, there is moderate bony foraminal encroachment at C5-6. The atlantoaxial relatio nship is maintained. There is no prevertebral soft tissue swelling. X R/XR cervical spine 5V IMPRESSION: OSTEOPENIA. LOSS OF NORMAL CERVI KRISTIN CURVATURE AND MULTILEVEL DEGENERATIVE CHANGES. Impression dictated by: Adelaida Davis M.D. 11/13/2024 10:27 AM Dictation Location: [place] [address] Electronically authenticated by: [id number] Y Date: 11/13/2024 10:27 Dictated By: Adelaida Davis M.D. Signed By: 11/13/24 1029 DD/ 1027 TD/TT: Child Neurologist: PROF MORSE 8 ([facility]) Reviewed date:02/23/2024 11:42:40 AM Interpretation: Performing Lab: Notes/Report: [facility] , Sodium 142 136-145 mmol/L Potassium 5.8 3.5-5.1 mmol/L Chloride 110 98-107 mmol/L Carbon Dioxide 25.3 21.0-32.0 mmol/L Anion Gap 12.5 Glucose 98 74-106 mg/dL Blood Urea Nitrogen 58.0 7.0-18.0 mg/dL Creatinine 1.62 0.55-1.02 mg/dL Estimated GFR ( Ivana 37 >=60 Estimated GFR (Non- Aisha 31 >=60 BUN Creatinine Ratio 35.8 Calcium 9.3 8.5-10.1 mg/dL Performing Lab: see note ML - [facility] LB XR lumbar spine 2-3V Reviewed date:04/18/2024 04:21:59 PM Interpretation: Performing Lab: Notes/Report: Source Facility: [facility]-[address] [place] [address] [place] [address] XRay Report Signed Patient: SAUL GUTIÉRREZ MR#: [id number] : 1945 Acct:[id number] Age/Sex: 78 / F ADM Date: 04/14/24 Loc: EC Attending Dr: Avani Gibbs M.D. Ordering Physician: Avani Gibbs M.D. Date of Service: 04/14/24 Procedure(s): XR lumbar spine 2-3V Accession Number(s): [id number] cc: HEAVEN STALEY ; Avani Gibbs M.D. [place] [address] Patient Name: SAUL GUTIÉRREZ MRN: [id number] date: 1945 Sex: F Assigned Patient Location: Current Patient Location: Accession/Order Number: [id number] Exam Date: 04/14/2024 10:17 Report Date: 04/18/2024 09:12 At the request of: AVANI GIBBS Procedure: XR lumbar spine 2-3V EXAMINATION: XR lumbar spine 2-3V HISTORY: LUMBAR SPINE PAIN COMPARISON: XR lumbar spine 02/10/2024 FINDINGS: BONES: Mechanical fusion of L3-S1 via bilateral pedicle screws and rods; no appreciable hardware fracture loosening. Posterior decompression L3, L4, and L5. Minimal left convex curvature. No significant anterior-posterior listhesis. DISC SPACES: Moderate narrowing and intervertebral disc spacer L3-4. Moderate narrowing L4-5. Marked narrowing L5-S1. PARASPINOUS: Negative. No paraspinous abnormality is seen. OTHER: Negative. XR/XR lumbar spine 2-3V IMPRESSION: 1. Surgical revision since prior study with posterior mechanical fusion L3-S1. No appreciable hardware failure. 2. Multilevel degenerative changes; grossly stable. Electronically authenticated by: SHAR VALENZUELA Date: 04/18/2024 09:12 Dictated By: Shar Valenzuela M.D. Signed By: 04/18/24913 DD/ 1 TD/TT: Child Neurologist: [place] [address] XRay Report Signed Patient: GEORGINA GUTIÉRREZ MR#: [id number] : 1945 Acct:[id number] Age/Sex: 78 / F ADM Date: 04/14/24 Loc: EC Attending Dr: Avani Gibbs M.D. Ordering Physician: Avani Gibbs M.D. Date of Service: 04/14/24 Procedure(s): XR lum bar spine 2-3V Accession Number(s): [id number] cc: HEAVEN STAELY ; Avani Gibbs M.D. [address] [address] Patient Name: SAUL GUTIÉRREZ MRN: [id number] date: 1945 Sex: F Assigned Patient Location: Current Patient Location: Accession/Order Numb er: [id number] Exam Date: 10:17 Report Date: 04/18/2024 09:12 At the request of: AVANI GIBBS Procedure: XR lumbar spine 2-3V EXAMINATION: XR lumb ar spine 2-3V HISTORY: LUMBAR SPIN E PAIN COMPARISON: XR lumba r spine 02/10/2024 FINDINGS: BONES: Mechanical fu juan of L3-S1 via bilateral pedicle screws and rods; no appreciable hardware fracture loosening. Posterior decompression L3, L4, and L5. Minimal left con vex curvature. No significant anterior-posterior listhesis. DISC SPACES: Moderat e narrowing and intervertebral disc spacer L3-4. Moderate narrowing L4-5. Jacky ed narrowing L5-S1. PARASPINOUS: Negativ e. No paraspinous abnormality is seen. OTHER: Negative. X R/XR lumbar spine 2-3V IMPRESSION: 1. Surgical revision since prior study with posterior mechanical fusion L3-S1. No appreciable hardw are failure. 2. Multilevel degenerative changes; grossly stable. Electronically authenticated by: SHAR VALENZUELA Date: 04/18/2024 09:12 Dictated By: Shar Valenzuela M.D. Signed By: 04/18/24913 DD/ 1 TD/TT: Child Neurologist: IRON AND TIBC Reviewed date:08/21/2024 01:51:08 PM Interpretation: Performing Lab: Notes/Report: [facility] , Iron 71.0 50.0-170.0 ug/dL Total Iron Binding Capacity 361.0 250.0-450.0 ug/dL Percent Iron Saturation 19.7 Performing Lab: see note - [facility] LB MAGNESIUM Reviewed date:08/21/2024 01:51:08 PM Interpretation: Performing Lab: Notes/Report: [facility] , Magnesium 2.4 1.8-2.4 mg/dL Performing Lab: see note ML - [facility] LB URIC ACID SERUM Reviewed date:08/21/2024 01:51:08 PM Interpretation: Performing Lab: Notes/Report: [facility] , Uric Acid 6.5 2.6-6.0 mg/dL Performing Lab: see note - [facility] LB CBC no Diff (Hemogram) Reviewed date:10/09/2024 11:40:30 AM Interpretation: Performing Lab: Notes/Report: [facility] , White Blood Count 10.1 4.0-11.0 10 3/uL Red Blood Count 4.00 4.20-5.40 10 6/uL Hemoglobin 11.1 12.0-16.0 g/dL Hematocrit 35.4 36.0-48.0 % Mean Corpuscular Volume 88.5 81.0-99.0 fL Mean Corpuscular Hemoglobin 27.8 26.7-34.0 pg Mean Corpuscular HGB Conc 31.4 29.9-35.2 g/dL Red Cell Distribution Width 15.2 11.0-15.0 % Platelet Count 272 150-450 10 3/uL Mean Platelet Volume 10.0 9.5-13.5 fL Performing Lab: see note ML - [facility] URINE T PROTEIN CREAT RATIO Reviewed date:10/09/2024 11:40:30 AM Interpretation: Performing Lab: Notes/Report: [facility] , Total Protein Urine Random 15.7 <=11.9 mg/dL Creatinine Urine Random 82.53 20.00-30 0.00 mg/dL Protein Creatinine Ratio Urine 0.19 Performing Lab: see note ML - [facility] LB MAGNESIUM Reviewed date:10/09/2024 11:40:30 AM Interpretation: Performing Lab: Notes/Report: [facility] , Magnesium 2.1 1.8-2.4 mg/dL Performing Lab: see note - [facility] LB IRON AND TIBC Reviewed date:10/09/2024 11:40:30 AM Interpretation: Performing Lab: Notes/Report: [facility] , Iron 33.0 50.0-170.0 ug/dL Total Iron Binding Capacity 377.0 250.0-450.0 ug/dL Percent Iron Saturation 8.8 Performing Lab: see note ML - [facility] LB FERRITIN Reviewed date:10/09/2024 11:40:30 AM Interpretation: Performing Lab: Notes/Report: [facility] , Ferritin 13.0 8.0-252.0 ng/mL Performing Lab: see note - [facility] MM tomosynthesis screening B I Reviewed date:09/26/2024 08:49:29 AM Interpretation: Performing Lab: Notes/Report: Source Facility: [facility]-[address], [place] [address] Mammography Report Signed Patient: SAUL GUTIÉRREZ MR#: [id number] : 1945 Acct:[id number] Age/Sex: 79 / F ADM Date: 09/25/24 Loc: RAD Attending Dr: HEAVEN STALEY Ordering Physician: HEAVEN STALEY Results: Date of Service: 09/25/24 Follow Up: Procedure(s): MM tomosynthesis screening BI Accession Number(s): [id number] cc: HEAVEN STALEY Patient Name: SAUL GUTIÉRREZ MR#: [id number] : 1945 Exam Date: 09/25/2024 Ordering Doctor: HEAVEN STALEY [facility] RADIOLOGY REPORT PROCEDURE: MM TOMOSYNTHESIS SCREENING BI COMPARISON: MG MAMM SCREEN 3D NIKOS CAD, 09/22/2022. MG MAMM SCREEN 3D NIKOS CAD, 08/28/2021. MG MAMM SCREEN NIKOS W CAD, 07/29/2020. MG MAMM SCREEN NIKOS W CAD, 06/08/2018. INDICATIONS: Screening Calculator Name NCI Breast Cancer Risk Assessment Tool 5 Year Breast Cancer Risk 1.20% Lifetime Breast Cancer Risk 2.00% Personal Breast Cancer No Personal Ovarian Cancer No Treatments None Family Cancers None LOCATION: [facility] BREAST COMPOSITION: The breasts are almost entirely fatty. FINDINGS: DIAGNOSTIC CATEGORY 1--NEGATIVE. RIGHT BREAST: No significant suspicious finding. LEFT BREAST: No significant suspicious finding. RECOMMENDATIONS: ROUTINE MAMMOGRAM AND CLINICAL EVALUATION IN 12 MONTHS. PLEASE NOTE: A NORMAL MAMMOGRAM DOES NOT EXCLUDE THE POSSIBILITY OF BREAST CANCER. A CLINICALLY SUSPICIOUS PALPABLE LUMP SHOULD BE BIOPSIED. Dictated by: Clifton Barber DO on 09/25/2024 at 16:49 Approved by: Clifton Barber DO on 09/25/2024 at 16:52 Dictated By: Clifton Barber M.D. Signed By: 09/25/241652 DD/ 51 TD/TT: Child Neurologist: [place] [address] Mammography Report Signed Patient: GEORGINA GUTIÉRREZ MR#: [id number] : 1945 Acct:[id number] Age/Sex: 79 / F ADM Date: 09/25/24 Loc: RAD Attending Dr: HEAVEN STALEY Ordering Physician: HEAVEN STALEY Results: Date of Service: Follow Up: Procedure(s): MM tomosynthesis screening BI Accession Number(s): [id number] cc: HEAVEN STALEY Patient Name: SAUL GUTIÉRREZ MR#: [id number] : 1945 Exam Date: 09/25/2024 Ordering Doctor: IVANNA STALEY [facility] RADIOLOGY REPORT PROCEDURE: MM TOMOSYNTHESIS SCREENING BI COMPARISON: MG MAMM SCREEN 3D NIKOS CAD, 09/22/2022. MG MAMM SCREEN 3D NIKOS CAD, 08/28/2021. MG M AMM SCREEN NIKOS W CAD, 07/29/2020. MG MAMM SCREEN NIKOS W CAD, 06/08/2018. INDICATIONS: Screening Calculator Name NCI Breast Cancer Risk Assessment Tool 5 Year Breast Cancer Risk 1.20% Lifetime Breast Canc er Risk 2.00% Personal Breast Cancer No Personal Ovarian Can cer No Treatments None Family Cancers None LOCATION: [facility] BREAST COMPOSITION: The breasts are almost entirely fatty. FINDINGS: DIAGNOSTIC CATEGORY 1--NEGATIVE. RIGHT BREAST: No significant suspicious finding. LEFT BREAST: No significant suspicious finding. RECOMMENDATIONS: ROUTINE MAMMOGRAM AN D CLINICAL EVALUATION IN 12 MONTHS. PLEASE NOTE: A LEIF L MAMMOGRAM DOES NOT EXCLUDE THE POSSIBILITY OF BREAST CANCER. A CLINICALLY SUSPICIOUS PALPABLE LUMP SHOULD BE BIOPSIED. Dictated by: Clifton Barber DO on 09/25/2024 at 16:49 Approved by: Clifton Barber DO on 09/25/2024 at 16:52 Dictated By: Clifton Barber M.D. Signed By: 09/25/241652 DD/ 51 TD/TT: Child Neurologist: LIPID PROFILE Reviewed date:09/11/2024 01:05:42 PM Interpretation: Performing Lab: Notes/Report: [facility] , Triglycerides 66 <=150 mg/dL Cholesterol 125 <=200 mg/dL HDL Cholesterol 54 40-60 mg/dL <40 mg/dl - HIGH CARDIOVASCULAR RISK > or =60 mg/dl - LOW CARDIOVASCULAR RISK LDL Cholesterol Calculated 57.8 160-189 mg/dl HIGH 130-159 mg/dl BORDERLINE HIGH <100 mg/dl OPTIMAL >190 mg/dl VERY HIGH 100-129 mg/dl NEAR OR ABOVE OPTIMAL VLDL CHOLESTEROL 13.2 Chol HDL Ratio 2.3 4.4 - 7.1 AVERAGE RISK >11.0 HIGH RISK 3.3 - 4.4 LOW RISK 7.1 - 11.0 MODERATE RISK Performing Lab: see note ML - [facility] [place] LB XR lumbar spine min 4V Reviewed date:09/03/2024 09:41:22 PM Interpretation: Performing Lab: Notes/Report: Source Facility: [place] [address] [place] [address] XRay Report Signed Patient: SAUL GUTIÉRREZ MR#: [id number] : 1945 Acct:[id number] Age/Sex: 79 / F ADM Date: 09/01/24 Loc: EC Attending Dr: Avani Gibbs M.D. Ordering Physician: Avani Gibbs M.D. Date of Service: 09/01/24 Procedure(s): XR lumbar spine min 4V Accession Number(s): [id number] cc: HEAVEN STALEY ; Avani Gibbs M.D. [place] [address] Patient Name: SAUL GUTIÉRREZ MRN: [facility]:[id number] date: 1945 Sex: F Assigned Patient Location: Current Patient Location: [place] Accession/Order Number: [id number] Exam Date: 09/01/2024 12:21 Report Date: 09/01/2024 12:24 At the request of: AVANI GIBBS MD Procedure: XR lumbar spine min 4V LUMBAR SPINE WITH FLEXION AND EXTENSION VIEWS - 4 views: CLINICAL HISTORY: BACK PAIN M54.50 Follow-up after lumbar surgery. COMPARISON: 06/02/2024 Standing AP as well as lateral views in neutral, flexion and extension were obtained. There is osteopenia. 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 There is prior laminectomy and fusion with posterior rods and pedicle screws extending from L3 through S1. An interbody fusion device is again seen at L3-4. The hardware appears intact and unchanged from the prior. There is still approximately 4 mm of anterolisthesis of L4 and L5. There is also minor anterolisthesis of L3 on L4. Alignment does not change significantly with flexion or extension. Multilevel disc space narrowing is again seen. There is endplate spurring and some facet hypertrophy. The SI joints are intact. No paraspinal soft tissue abnormalities are noted. XR/XR lumbar spine min 4V IMPRESSION: OSTEOPENIA, SCOLIOSIS, POSTOPERATIVE AND DEGENERATIVE CHANGES, SIMILAR TO THE PRIOR. Impression dictated by: Adelaida Davis M.D.09/01/2024 12:24 PM Dictation Location: [place] [address] Electronically authenticated by: [id number] Y Date: 09/01/2024 12:24 Dictated By: Adelaida Davis M.D. Signed By: 09/01/24 1226 DD/ 1224 TD/TT: Child Neurologist: [place] [address] XRay Report Signed Patient: GEORGINA GUTIÉRREZ MR#: [id number] : 1945 Acct:[id number] Age/Sex: 79 / F ADM Date: 09/01/24 Loc: EC Attending Dr: Avani Gibbs M.D. Ordering Physician: Avani Gibbs M.D. Date of Service: 09/01/24 Procedure(s): XR lum bar spine min 4V Accession Number(s): [id number] cc: HEAVEN STALEY ; Avani Gibbs M.D. [address] [address] Patient Name: SAUL GUTIÉRREZ MRN: [id number] date: 1945 Sex: F Assigned Patient Location: Current Patient Loca tion: [place] Accession/Order Numb er: [id number] Exam Date: 09/01/2024 12:21 Report Date: 09/01/2024 12:24 At the request of: AVANI GIBBS MD Procedure: XR lumbar spine min 4V LUMBAR SPINE WITH FL EXION AND EXTENSION VIEWS - 4 views: CLINICAL HISTORY: BA CK PAIN M54.50 Follow-up after lumbar surgery. COMPARISON: 06/02/2024 Standing AP as well as lateral views in neutral, flexion and extension were obtained. There is osteopenia. 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 There is prior laminectomy and fusion with posterior rods and pedicle screws exten ding from L3 through S1. An interbody fusion device is again seen at L3-4. The hardware appears intact and unchanged from the prior. There is still approximately 4 mm of anterolisthesis of L4 and L5. There is also minor anterolisthesis of L3 on L4. Alignment does not change significantly with flexion or extension. Multilevel disc space narrowing is again seen. There is endplate spurring and some facet hypertrophy. The SI joints are intact. N o paraspinal soft tissue abnormalities are noted. X R/XR lumbar spine min 4V IMPRESSION: OSTEOPENIA, SCOLIOSI S, POSTOPERATIVE AND DEGENERATIVE CHANGES, SIMILAR TO THE PRIOR. Impression dictated by: Adelaida Davis M.D.09/01/2024 12:24 PM Dictation Location: [place] [address] Electronically authenticated by: [id number] Y Date: 09/01/2024 12:24 Dictated By: Adelaida Davis M.D. Signed By: 09/01/24 1226 DD/ 1224 TD/TT: Child Neurologist: PTH, Intact Reviewed date:08/21/2024 01:51:08 PM Interpretation: Performing Lab: Notes/Report: [facility] , PTH, Intact 106 15-65 pg/mL [employer] Supervisor: Ra Gonzalez PhD, Phone: [phone] [address] [place], [place] [phone] Performed at: - [facility] [place] Performing Lab: see note LC - [facility] LB VITAMIN D 25 [place] Reviewed date:08/21/2024 01:51:08 PM Interpretation: Performing Lab: Notes/Report: [facility] , Vitamin D 45.3 <20 ng/mL Vit D deficient >100 ng/mL Potential Toxicity 30-100 ng/mL Vit D sufficient 20-<30 ng/mL Vit D insufficient Performing Lab: see note ML - [facility] [place] LB FERRITIN Reviewed date:08/21/2024 01:51:08 PM Interpretation: Performing Lab: Notes/Report: [facility] , Ferritin 17.0 8.0-252.0 ng/mL Performing Lab: see note ML - [facility] [place] LB XR lumbar spine 2-3V Reviewed date:06/05/2024 08:55:00 AM Interpretation: Performing Lab: Notes/Report: Source Facility: [place] [address] [place] [address] XRay Report Signed Patient: SAUL GUTIÉRREZ MR#: [id number] : 1945 Acct:[id number] Age/Sex: 78 / F ADM Date: 06/02/24 Loc: EC Attending Dr: Avani Gibbs M.D. Ordering Physician: Avani Gibbs M.D. Date of Service: 06/02/24 Procedure(s): XR lumbar spine 2-3V Accession Number(s): [id number] cc: HEAVEN STALEY ; Avani Gibbs M.D. [place] [address] Patient Name: SAUL GUTIÉRREZ MRN: [id number] date: 1945 Sex: F Assigned Patient Location: Current Patient Location: Accession/Order Number: [id number] Exam Date: 06/02/2024 10:14 Report Date: 06/05/2024 07:18 At the request of: AVANI GIBBS Procedure: XR lumbar spine 2-3V EXAMINATION: XR lumbar spine 2-3V HISTORY: LUMBAR SPINE PAIN COMPARISON: 04/14/2024 FINDINGS: BONES: Normal alignment with no acute fracture or spondylolisthesis. Posterior decompression bilateral transpedicular fusion L3-S1. Mild to moderate spondylosis and facet osteoarthropathy DISC SPACES: Multilevel disc space narrowing PARASPINOUS: Negative. No paraspinous abnormality is seen. OTHER: Negative. XR/XR lumbar spine 2-3V IMPRESSION: Degenerative and postsurgical changes. Electronically authenticated by: YVES JOHNSON Date: 06/05/2024 07:18 Dictated By: Yves Johnson M.D. Signed By: 06/05/24720 DD/ 7 TD/TT: Child Neurologist: [place] [address] XRay Report Signed Patient: GEORGINA GUTIÉRREZ MR#: [id number] : 1945 Acct:[id number] Age/Sex: 78 / F ADM Date: 06/02/24 Loc: EC Attending Dr: Avani Gibbs M.D. Ordering Physician: Avani Gibbs M.D. Date of Service: 06/02/24 Procedure(s): XR lum bar spine 2-3V Accession Number(s): [id number] cc: EHAVEN STALEY ; Avani Gibbs M.D. [place] [address] Patient Name: SAUL GUTIÉRREZ MRN: [id number] date: 1945 Sex: F Assigned Patient Location: Current Patient Location: Accession/Order Numb er: [id number] Exam Date: 06/02/2024 10:14 Report Date: 06/05/2024 07:18 At the request of: AVANI GIBBS Procedure: XR lumbar spine 2-3V EXAMINATION: XR lumb ar spine 2-3V HISTORY: LUMBAR SPIN E PAIN COMPARISON: 04/14/2024 FINDINGS: BONES: Normal alignm ent with no acute fracture or spondylolisthesis. Posterior decompression bilate ral transpedicular fusion L3-S1. Mild to moderate spondylosis and face t osteoarthropathy DISC SPACES: Multile rob disc space narrowing PARASPINOUS: Negativ e. No paraspinous abnormality is seen. OTHER: Negative. X R/XR lumbar spine 2-3V IMPRESSION: Degenerative and postsurgical changes. Electronically authenticated by: YVES JOHNSON Date: 06/05/2024 07:18 Dictated By: Luis Johnson M.D. Signed By: 06/05/24720 DD/ 7 TD/TT: Child Neurologist: LAB TESTING Reviewed date:02/28/2024 09:57:06 AM Interpretation: Performing Lab: Notes/Report: [id number] Nicotine and Metabolite, Quantitative, Plasma, Whole Blood, [facility] , Miscellaneous Test COMMENT . Nicotine <1.0 ng/mL BN Performed at: [facility] use of tobacco or tobacco cessation products. [address] [place], [place] [id number] Reference Range: . This test was developed and its performance characteristics Reference Range: . [employer] Supervisor: Keke Botello MD, Phone: [phone] Performed at: [facility] approved by the Food and Drug Administration. determined by [facility]. It has not been cleared or This test was developed and its performance characteristics [employer] Supervisor: Ra Gonzalez PhD, Phone: [phone] use of tobacco or tobacco cessation products. determined by [facility]. It has not been cleared or Nicotine levels greater than 2.0 are consistent with the approved by the Food and Drug Administration. [address] [place] [phone] Cotinine levels greater than 20.0 are consistent with the Test Ordered: [id number] Nicotine and Metabolite, Quant Cotinine <1.0 ng/mL BN Performing Lab: see note - [facility] LB XR chest 2V Reviewed date:02/22/2024 03:57:27 PM Interpretation: Performing Lab: Notes/Report: Source Facility: [place] [address] [place] [address] XRay Report Signed Patient: SAUL GUTIÉRREZ MR#: [id number] : 1945 Acct:[id number] Age/Sex: 78 / F ADM Date: 02/18/24 Loc: LAB Attending Dr: Raudel KAMINSKI Ordering Physician: Raudel Sanchez Date of Service: 02/18/24 Procedure(s): XR chest 2V Accession Number(s): [id number] cc: HEAVEN STALEY ; Raudel Sanchez [place] [address] Patient Name: SAUL GUTIÉRREZ MRN: [id number] date: 1945 Sex: F Assigned Patient Location: LAB Current Patient Location: LAB Accession/Order Number: [id number] Exam Date: 02/18/2024 10:23 Report Date: 02/21/2024 08:30 At the request of: RAUDEL SANCHEZ Procedure: XR chest 2V EXAM: XR chest 2V HISTORY: Lumbar pain. M54.50. COMPARISON: 07/06/2023. TECHNIQUE: 2 views. FINDINGS: Redemonstration of cardiac pacemaker. Lungs are clear. No focal infiltrates are seen. Continued mild cardiomegaly. XR/XR chest 2V IMPRESSION: Stable examination. No acute findings. Electronically authenticated by: Jean-Pierre WEINER Date: 02/21/2024 08:30 Dictated By: Jean-Pierre Weiner M.D. Signed By: 02/21/24831 DD/ 9 TD/TT: Child Neurologist: [place] [address] XRay Report Signed Patient: GEORGINA GUTIÉRREZ MR#: [id number] : 1945 Acct:[id number] Age/Sex: 78 / F ADM Date: 02/18/24 Loc: LAB Attending Dr: Reggie Freeman Ordering Physician: Raudel Sanchez Date of Service: 02/18/24 Procedure(s): XR chest 2V Accession Number(s): [id number] cc: HEAVEN STALEY ; Raudel Sanchez [address] [address] Patient Name: SAUL GUTIÉRREZ MRN: TBH:[id number] date: 1945 Sex: F Assigned Patient Location: LAB Current Patient Loca tion: LAB Accession/Order Numb er: [id number] Exam Date: 02/18/2024 10:23 Report Date: 02/21/2024 08:30 At the request of: RAUDEL SANCHEZ Procedure: XR chest 2V EXAM: XR chest 2V HISTORY: Lumbar pain . M54.50. COMPARISON: 07/06/2023. TECHNIQUE: 2 views. FINDINGS: Redemonstr ation of cardiac pacemaker. Lungs are clear. No focal infiltrates are seen . Continued mild cardiomegaly. X R/XR chest 2V IMPRESSION: Stable examination. No acute findings. Electronically authenticated by: Jean-Pierre WEINER Date: 02/21/2024 08:30 Dictated By: Jean-Pierre Weiner M.D. Signed By: 02/21/24831 DD/ 9 TD/TT: Child Neurologist: Prothrombin Time INR Reviewed date:02/18/2024 01:11:43 PM Interpretation: Performing Lab: Notes/Report: [facility] , Prothrombin Time 10.6 9.0-11.6 sec INR 1.00 2.0-3.0 CONDITIONS NOT LISTED BELOW DESIRED INR: 2.5-3.5 RECURRENT THROMBOSIS 2.5-3.5 FOR PROSTHETIC HEART VALVE REPLACEMENT Performing Lab: see note ML - [facility] LB PTT Reviewed date:02/18/2024 01:11:43 PM Interpretation: Performing Lab: Notes/Report: [facility] , Partial Thromboplastin Time 25.6 22.3-36.2 sec Performing Lab: see note ML - [facility] LB CBC AUTO DIFF Reviewed date:02/18/2024 01:11:43 PM Interpretation: Performing Lab: Notes/Report: [facility] , White Blood Count 9.1 4.0-11.0 10 3/uL Red Blood Count 3.51 4.20-5.40 10 6/uL Hemoglobin 11.0 12.0-16.0 g/dL Hematocrit 36.1 36.0-48.0 % Mean Corpuscular Volume 102.8 81.0-99.0 fL Mean Corpuscular Hemoglobin 31.3 26.7-34.0 pg Mean Corpuscular HGB Conc 30.5 29.9-35.2 g/dL Red Cell Distribution Width 13.9 11.0-15.0 % Platelet Count 213 150-450 10 3/uL Mean Platelet Volume 10.5 9.5-13.5 fL Neutrophils Percent Auto 64.5 43.0-75.0 % Lymphocytes Percent Auto 25.6 20.5-60.0 % Monocytes Percent Auto 5.7 1.7-12.0 % Eosinophils Percent Auto 3.5 0.9-7.0 % Basophils Percent Auto 0.4 0.2-2.0 % Immature Granulocytes Pct Auto 0.3 0.0-0.5 % Neutrophils Absolute Auto 5.8 1.4-6.5 10 3/uL Lymphocytes Absolute Auto 2.3 1.2-3.8 10 3/uL Monocytes Absolute Auto 0.5 0.3-0.8 10 3/uL Eosinophils Absolute Auto 0.3 0.0-0.7 10 3/uL Basophils Absolute Auto 0.0 0.0-0.1 10 3/uL Immature Granulocytes Abs Auto 0.03 0.00-0.03 10 3/uL Performing Lab: see note ML - [facility] LB FERRITIN Reviewed date:12/20/2023 03:30:50 PM Interpretation: Performing Lab: Notes/Report: [facility] , Ferritin 72.0 8.0-252.0 ng/mL Performing Lab: see note - [facility] LB URINE T PROTEIN CREAT RATIO Reviewed date:08/21/2024 01:51:08 PM Interpretation: Performing Lab: Notes/Report: [facility] , Total Protein Urine Random <6.0 <=11.9 mg/dL Creatinine Urine Random 36.44 20.00-30 0.00 mg/dL Performing Lab: see note - [facility] LB PTH, Intact Reviewed date:10/10/2024 01:32:05 PM Interpretation: Performing Lab: Notes/Report: [facility] , PTH, Intact 76 15-65 pg/mL [employer] Supervisor: Ra Gonzalez PhD, Phone: [phone] Performed at: - [facility] [address] [id number] Performing Lab: see note - [facility] LB ECG 12 lead Reviewed date:02/23/2024 11:42:40 AM Interpretation: Performing Lab: Notes/Report: Source Facility: [facility]-[address] [place] [address] [place] [address] Electrocardiograph Report Signed Patient: SAUL GUTIÉRREZ MR#: [id number] : 1945 Acct:[id number] Age/Sex: 78 / F ADM Date: 02/18/24 Loc: LAB Attending Dr: Raudel KAMINSKI Ordering Physician: Raudel Sanchez Date of Service: 02/18/24 Procedure(s): ECG 12 lead Accession Number(s): [id number] cc: [facility] Test Date: 2024-02-18 Pat Name: SAUL GUTIÉRREZ Department: Room: - Gender: Female Director Critical Care: : 1945 Requested By: Order Number: [id number] Reading MD: MIAH REINA Measurements Intervals [place] Rate: 80 P: WI: QRS: 91 QRSD: 124 T: 91 QT: 424 QTc: 489 Interpretive Statements ELECTRONIC VENTRICULAR PACEMAKER ABNORMAL RHYTHM ECG Compared to ECG 04/20/2018 16:36:54 Atrial fibrillation no longer present Myocardial infarct finding no longer present Electronically Signed On 02-18-2024 18:35:22 EDT by MIAH REINA Dictated By: Miah Reina D.O. Signed By: 02/18/24183402/18/241834 DD/ 1014 TD/TT: Child Neurologist: [place] [address] Electrocardiograph Report Signed Patient: GEORGINA GUTIÉRREZ MR#: [id number] : 1945 Acct:[id number] Age/Sex: 78 / F ADM Date: 02/18/24 Loc: LAB Attending Dr: Reggie Freeman Ordering Physician: Raudel Sanchez Date of Service: 02/18/24 Procedure(s): ECG 12 lead Accession Number(s): [id number] cc: [facility] Test Date: 2024-02-18 Pat Name: SAUL CORRIGAN [facility] Department: 12 Room: - Gender: Female Director Critical Care: : 1945 Requ ested By: Order Number: [id number] Reading MD: MIAH REINA Measurements Intervals [place] Rate: 80 P: WI: QRS: 91 QRSD: 124 T: 91 QT: 424 QTc: 489 Interpretive Statements ELECTRONIC VENTRICUL AR PACEMAKER ABNORMAL RHYTHM ECG Compared to ECG 04/20/2018 16:36:54 Atrial fibrillation no longer present Myocardial infarct finding no longer present Electronically [place] d On 02-18-2024 18:35:22 EDT by MIAH REINA Dictated By: iMah Reina D.O. Signed By: 02/18/24183402/18/241834 DD/ 1014 TD/TT: Child Neurologist: MRSA Screening Culture Reviewed date:02/23/2024 11:42:40 AM Interpretation: Performing Lab: Notes/Report: [facility] , MRSA Screening Culture See Below For Report MRSA Screening Culture MRSA Screening Culture Negative MRSA Screening Culture MRSA Screening Culture [facility]formed at[facility] MRSA Screening Culture [address] [place], [place] [id number] MRSA Screening Culture MRSA Screening Culture [employer] Supervisor: Marvin Gonzalez PhD, Phone: [phone] MRSA Screening Culture Performing Lab: see note LC - [facility] LB SEE REPORT - Records And Information Manager Id information not found for OBX-specific digital content producer legend RENAL FUNCTION PANEL Reviewed date:08/21/2024 01:51:08 PM Interpretation: Performing Lab: Notes/Report: [facility] , Sodium 140 136-145 mmol/L Potassium 4.7 3.5-5.1 mmol/L Chloride 108 98-107 mmol/L Carbon Dioxide 26.5 21.0-32.0 mmol/L Anion Gap 10.2 Glucose 96 74-106 mg/dL Blood Urea Nitrogen 36.0 7.0-18.0 mg/dL Creatinine 1.36 0.55-1.02 mg/dL Estimated GFR ( Ivana 45 >=60 mL/min/1.73m 2 Estimated GFR (Non- Aisha 38 >=60 mL/min/1.73m 2 BUN Creatinine Ratio 26.5 Calcium 9.0 8.5-10.1 mg/dL Phosphorus 3.7 2.6-4.7 mg/dL Albumin Level 3.4 3.4-5.0 g/dL Performing Lab: see note ML - [facility] LB UA RANDOM W or MICROSCOPIC Reviewed date:08/21/2024 01:51:08 PM Interpretation: Performing Lab: Notes/Report: [facility] , Color Urine LT. YELLOW YELLOW Clarity Urine CLEAR CLEAR Specific [place] Urine 1.010 1.005-1.025 pH Urine 5.5 5.0-9.0 Protein Urine NEGATIVE NEG/TRACE mg/dL Glucose Urine UA 250 NEGATIVE mg/dL Bilirubin Urine NEGATIVE NEGATIVE Ketones Urine NEGATIVE NEGATIVE mg/dL Blood Urine NEGATIVE NEGATIVE Nitrite Urine NEGATIVE NEGATIVE Urobilinogen Urine 0.2 0.2-1.0 EU/dL Leukocyte Esterase Urine NEGATIVE NEGATIVE WBC Urine NONE SEEN NONE SEEN #/HPF RBC Urine 0-2 0-2 #/HPF Bacteria Urine TRACE NONE SEEN #/HPF Mucus Urine NONE SEEN NONE SEEN Squamous Epithelial Cell Urine FEW NONE/RARE #/LPF Crystals Seen? None Seen None Seen #/HPF Cast Seen? NONE SEEN NONE SEEN #/LPF Performing Lab: see note ML - [facility] LB CBC no Diff (Hemogram) Reviewed date:08/21/2024 01:51:08 PM Interpretation: Performing Lab: Notes/Report: [facility] , White Blood Count 9.1 4.0-11.0 10 3/uL Red Blood Count 3.98 4.20-5.40 10 6/uL Hemoglobin 10.9 12.0-16.0 g/dL Hematocrit 35.1 36.0-48.0 % Mean Corpuscular Volume 88.2 81.0-99.0 fL Mean Corpuscular Hemoglobin 27.4 26.7-34.0 pg Mean Corpuscular HGB Conc 31.1 29.9-35.2 g/dL Red Cell Distribution Width 16.1 11.0-15.0 % Platelet Count 254 150-450 10 3/uL Mean Platelet Volume 10.4 9.5-13.5 fL Performing Lab: see note ML - [facility] LB Reason For Referral Reason stage 3 CKD Diagnosis 1 Stage 3 chronic kidn ey disease, unspecified whether stage 3a or 3b CKD (N18.30) Referral Organization [facility] Referring Provider First Name Heaven Referring Provider Last Name Yumiko Referring Provider Speciality [facility] anne Referred Provider Juliana Timmons Referred Provider Specialty Nephrology Referral Priority Routine Medications Medication SIG (Take, Route, Frequency, Duration) Notes Start Date End Date Status Spironolactone 25 MG 1 tablet Orally for 30 day(s) Active B-Complex - as directed Orally Active Ondansetron HCl 4 MG 1 tablet Orally Onc e a day for 10 days 03/22/2023 Active Metoprolol Succinate 50 MG 1 capsule Ora lly Once a day for 30 day(s) Active Voltaren 1 % as directed Externally Active Biotin 17196 MCG 1 tablet Orally Once a day Active Pantoprazole Sodium 40 MG TAKE 1 TABLET BY MOUTH EVERY DAY FOR 90 DAYS for 90 Active Baclofen 10 MG 1 tablet Orally at bedtime Active oxyCODONE-Acetaminophen 5-32 5 MG 1 tablet as needed Orally every 6 hrs Active Furosemide 40 MG 1 tablet Orally Once a day for 30 day(s) Active traZODone HCl 50 MG 1 tablet at bedtime as needed Orally Once a day for 30 days Active Pramipexole Dihydrochloride 1 MG TAKE 1 & 1/2 TABLETS BY MOUTH EVERY DAY for 90 Active Ferrous Sulfate 325 (65 Fe) MG 1 tablet Orally Once a day for 30 day(s) Active Sucralfate 1 GM TAKE 1 TABLET BY RAHEEM FOUR TIMES A DAY for 90 days Active Magnesium 400 MG as directed Orally Active Vitamin D3 25 MCG/SPRAY as directed Orally Active Losartan Potassium 25 MG 1 tablet Orally Once a day for 30 day(s) Active Turmeric - as directed Active CoQ-10 30 MG as directed Orally Active Prasterone (DHEA) 50 MG as directed Orally Active Calcium Carbonate - as directed Active Diclofenac Sodium 75 MG TAKE 1 TABLET BY MOUTH TWICE A DAY for 90 Active Immunizations Vaccine Route Administration Date Status Comme nts Flu, Fluad (65935) 65 yrs and older, single-dose syringe IM Intramuscular 04/10/2024 Administered Pneumococcal (Prevnar 13) Unknown 05/09/2015 Administer ed Social History Tobacco Use: Social History Observation Description Date Details (start date - stop date) Never Smoker NA - NA Tobacco Use/Smoking Question Answer Notes Patient is a nonsmoker Alcohol Screen (Audit-C) Question Answer Notes Did you have a drink containing alcohol in the p ast year? No Points 0 Interpretation Negative AUDIT-C (Standard) Question Answer Notes Did you have a drink containing alcohol in the p ast year? No Points 0 Interpretation Negative Problems Problem Type SNOMED Code ICD Code Onset Dates Problem Status W/U Status Risk Notes Problem Overweight (028631737) Overweight (E66.3) Active confirmed Problem Backache (011647334) Other dorsalgia (M54.89) Active confirmed Problem 431241269921532 Abnormal findings on diagnostic imaging of heart and coronary circulation (R93.1) Active confirmed Problem 3195746598 Presence of other cardiac implants and grafts (Z95.818) Active confirmed Problem Atrial fibrillation (95299620) Atrial fibrillation (I48.91) Active confirmed Problem Gastroesophageal reflux disease (660037473) GERD (gastroesophagea l reflux disease) (K21.9) Active confirmed Problem Hypertension (76658276) HTN (hypertension) (I10) Active confirmed Problem Arthritis (5045148) Arthritis (M19.90) Active confirmed Problem Sleep apnea (53837179) Sleep apnea (G47.30) Active confirmed Problem Insomnia (394209574) Insomnia (G47.00) Active confirmed Problem Ventral hernia (506077428) Ventral hernia (K43.9) Active confirmed Problem Osteoporosis (82579670) Osteoporosis (M81.0) Active confirmed Problem Paresthesia (47644418) Paresthesia (R20.2) Active confirmed Problem Folliculitis (76197750) Folliculitis (L73.9) Active confirmed Problem Sciatica (47481159) Sciatica (M54.30) Active confirmed Problem Left bundle branch block (07827459) Left bundle branch block (I44.7) Active confirmed Problem Radiculopathy (51036386) Radiculopathy (M54.10) Active confirmed Problem Pain in limb (08020243) Leg pain, right (M79.604) Active confirmed Problem Systolic heart failure (341724076) Systolic heart failure (I50.20) Active confirmed Problem Restless legs (68370274) Restless legs syndrome (RLS) (G25.81) Active confirmed Problem 92540795 Allergic rhinitis, unspecified seasonality, unspecified trigger (J30.9) Active confirmed Problem 313677447 Persistent atrial fibrillation (I48.19) Active confirmed Problem Chronic kidney disease stage 3 (disorder) (973511384) Stage 3 chronic kidney disease, unspecified whether stage 3a or 3b CKD (N18.30) Active confirmed Vital Signs Blood pressure diastolic 78 mm Hg 09/05/2024 Height 65 in 09/05/2024 Blood pressure systolic 130 mm Hg 09/05/2024 Weight 192.8 lbs 09/05/2024 BMI 32.08 kg/m2 09/05/2024 Encounters Encounter Location Date Provider Diagnosis [facility] [address] [place] [address] 02/15/2024 Heaven Staley [facility] [address] [place] [place] [place] [address] 02/18/2024 Heaven Staley Decreased renal function N28.9 [facility] [address] [place] [address] 02/24/2024 Heaven Staley [facility] [address] [place] [address] 02/24/2024 Heaven Staley [facility] [address] [place] [address] 03/20/2024 Heaven Staley [facility] [address] [place] [address] 09/05/2024 Heaven Staley HTN (hypertension) I 10 ; Senile osteoporosis M81.0 and Screening for breast cancer Z12.31 [facility] [address] [place] [address] 09/06/2024 Heaven Staley [facility] [address] [place] [address] 09/26/2024 Heaven Staley [facility] [address] [place] [address] 10/02/2024 Heaven Staley [facility] [address] [place] [address] 02/15/2024 Heaven Staley Pre-operative clearance Z01.[address] [place] [address] 03/21/2024 Heaven Staley Stage 3 chronic kidn ey disease, unspecified whether stage 3a or 3b CKD N18.30 and Insomnia G47.00 [facility] [address] [facility] [place] [address] 04/10/2024 Heaven Staley Encounter for immunization Z23 [facility] [address] [facility] [place] [address] 09/05/2024 All Alvarez Encounter for Medica re annual wellness exam Z00.00 Assessments Encounter Date Diagnosis (ICD Code) Assessment Notes Treatment Notes Treatment Clinical Notes Section Notes 02/15/2024 Pre-operative clearance (ICD-10 - Z01.818) states cleared by cardiology need review PST results 03/21/2024 Stage 3 chronic kidney disease, unspecified whether stage 3a or 3b CKD (ICD-10 - N18.30) referral Leti 03/21/2024 Insomnia (ICD-10 - G47.00) 04/10/2024 Encounter for immunization (ICD-10 - Z23) 09/05/2024 Encounter for Medicare annual wellness exam (ICD-10 - Z00.00) 02/18/2024 Decreased renal function (ICD-10 - N28.9) 09/05/2024 HTN (hypertension) (ICD-10 - I10) 09/05/2024 Senile osteoporosis (ICD-10 - M81.0) 09/05/2024 Screening for breast cancer (ICD-10 - Z12.31) 02/15/2024 Other discussed neuro eval for daytime somnolence vs syncope eval cardiology said wasnt heart defers for now Plan Of Treatment Pending Test Test Name Order Date CMP (COMPLETE METABOLIC PANEL) 4 CMP (COMPLETE METABOLIC PANEL) 3 HEMOGLOBIN A1C (GLYCO) 09/14/2022 HEMOGLOBIN A1C (GLYCO) 09/05/2024 IRON, TOTAL 09/05/2024 IRON, TOTAL 09/14/2022 LIPID PANEL (CHOL/TRIG/HDL/LDL) 09/06/19 25 LIPID PANEL (CHOL/TRIG/HDL/LDL) 09/15/19 23 CBC WITH DIFF 09/14/2022 VITAMIN D, 25 LEVEL (TOTAL) 09/05/2024 Insulin Level 09/05/2024 Insulin Level 09/14/2022 STOOL OCCULT BLOOD 09/14/2022 XR DEXA BONE DENSITY 09/05/2024 THYROID PANEL (T4/TSH/FREE T3) 5 THYROID PANEL (T4/TSH/FREE T3) 3 BI MAMMOGRAM SCREENING TOMOSYNTHESIS NIKOS ATERAL 09/05/2024 CMP (COMP MET HANSON) w/eGFR CKD-EPI 2024 CBC WITH DIFF 09/05/2024 Insurance Providers Payer Name Payer Address Payer Phone Subscriber Number Group Number Insured Name Patient Relationship to Insured Coverage Start Date Coverage End Date [employer] ADV PLAN [address] [address] [place] [address] [phone] [id number] Saul Gutiérrez Self - patient is the insured Medical (General) History Medical History History ICD Code Persistent atrial fibrillation I48.19 Overweight E66.3 Folliculitis L73.9 Leg pain, right M79.604 Other dorsalgia M54.89 HTN (hypertension) I10 GERD (gastroesophageal reflux disease) K 21.9 Osteoporosis M81.0 Atrial fibrillation I48.91 Arthritis M19.90 Sleep apnea G47.30 Ventral hernia K43.9 Left bundle branch block I44.7 Systolic heart failure I50.20 Persistent atrial fibrillation I48.19 Surgical History Surgery Date(Month/Year) Hernia Repair 2022 Tonsils/ADnoids Hysterectomy Back Surgery Bladder Sx Gastric Bypass Heart Cath 01/20 Watchman Left Atrial appendage device Hospitalization History Reason Date(Month/Year) see above
--- OUTSIDE RECORDS SUMMARY | 2024-11-30 08:23 | XMS_ITS | CCD ---
Author Organization [facility] Team Providers Care Respiratory Care Instructor Name Role Phone JOHNSON ., DR JAYLON Ruelas Admitting Unavailable ORNELAS ., DR JAYLON Ruelas Attending Unavailable LUÍS, HEAVEN Primary Care Unavailable ORNELAS ., DR JAYLON Ruelas Consulting Unavailable MICHELINE MOLINA Consulting Unavailable ORNELAS ., DR JAYLON Ruelas Admitting Unavailable ORNELAS ., DR JAYLON Ruelas Attending Unavailable [facility] Primary Care Unavailable RODRIGUEZ ., SABRINA Consulting Unavailable ORNELAS ., DR JAYLON Ruelas Admitting Unavailable ORNELAS ., DR JAYLON Ruelas Attending Unavailable [facility] Primary Care Unavailable RODRIGUEZ ., SABRINA Consulting Unavailable [facility] Primary Care Unavailable LAKSHMIPATHY ., NARENDRANATH Admitting Charity vailable LAKSHMIPATHY ., NARENDRANATH Attending Charity vailable LAKSHMIPATHY ., NARENDRANATH Consulting Charity vailable LAKSHMIPATHY ., NARENDRANATH Admitting Charity vailable LAKSHMIPATHY ., NARENDRANATH Attending Charity vailable [facility] Primary Care Unavailable LUÍS, HEAVEN Admitting Unavailable HEAVEN STALEY Attending Unavailable [facility] Primary Care Unavailable DR OSWALDO VALENZUELA Consulting [...] ROBERT Referring Unavailable NAVID, ROEBRT Referring Unavailable DANIEL, DANII Attending Unavailable DARRIUS, [...] Translations: [CODEINE] Drug Allergy 06-06-2014 [facility] Repository (5 sources) Codeine Drug All[facility] Lisinopril; Translations: [LISINOPRIL] Drug Allergy 10-19-2014 [facility] ([facility] sources) pregabalin; Translations: [PREGABALIN] Drug Allergy 12-01-2023 [facility] Medications Current Medications Medication Drug Class(es) [...] 30 tablet 1 06/08/2023 Active lactobacillus acidophilus [id number] unt oral capsule (5 sources) take 1 [...] Indications: Chronic systolic CHF (congestive heart failure) ([facility]) Take 1 tablet (25 mg total) [...] disease (2 sources) 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; Translations: [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] Onset: 08-18-2024 [...] Episodic Other aftercare (1 source) Other terminal supervisor (current) drug therapy; Translations: [OTH HALFWAY CURRENT DRUG THERAPY] Onset: 05-19-2022 Episodic Other [...] width [Ratio] by Automated count High 11.0-15.0 [facility] Estimated glomerular filtrat ion rate (GFR) non- Americanon 10-09-2024 GFR/1.73 sq M.predicted among non-blacks MDRD (S/P/Bld) [Vol rate/Area] Estimated glomerular filtration rate (GFR) non- Low >=60 mL/min/1.73m 2 [facility] Hematocrit Auto (Bld) [Volum e fraction]on 10-09-2024 Hematocrit (Bld) [Volume fraction] Hematocrit [Volume Fraction] of Blood by Automated count Low 36.0-48.0 [facility] Hemoglobin [Mass/volume] in Bloodon 10-09-2024 Hemoglobin (Bld) [Mass/Vol] Hemoglobin [Mass/volume] in Blood Low 12.0-16.0 [facility] Iron binding capacity [Mass/ volume] in Serum or Plasmaon 10-09-2024 Iron binding capacity [Mass/Vol] Iron binding capacity [Mass/volume] in Serum or Plasma 250.0-450.0 [facility] Iron saturation [Mass Fracti on] in Serum or Plasmaon 10-09-2024 Iron saturation [Mass fraction] Iron saturation [Mass Fraction] in Serum or Plasma [facility] Laboratory - Chemistry and C hemistry - challengeon 10-09-2024 Albumin [Mass/Vol] 3.2 g/dL Low 3.4-5.0 [facility] Calcium [Mass/Vol] 8.9 mg/dL 8.5-10.1 [facility] Chloride [Moles/Vol] 105 mmol/L 98-107 [facility] CO2 [Moles/Vol] 28.4 mmol/L 21.0-32.0 [facility] Creatinine [Mass/Vol] 1.33 mg/dL High 0.55-1.02 [facility] Ferritin [Mass/Vol] 13.0 ng/mL 8.0-252.0 [facility] GFR/1.73 sq M.predicted MDRD (S/P/Bld) [Vol rate/Area] 47 mL/min/{1.73_m2} Low >=60 mL/min/1.73m 2 [facility] Glucose [Mass/Vol] 85 mg/dL 74-106 [facility] Iron [Mass/Vol] 33.0 ug/dL Low 50.0-170.0 [facility] Magnesium [Mass/Vol] 2.1 mg/dL 1.8-2.4 [facility] Potassium [Moles/Vol] 4.6 mmol/L 3.5-5.1 [facility] Sodium [Moles/Vol] 139 mmol/L 136-145 [facility] Urate [Mass/Vol] 6.1 mg/dL High 2.6-6.0 [facility] Urea nitrogen [Mass/Vol] 30.0 mg/dL High 7.0-18.0 [facility] Urea nitrogen/Creatinine [Mass ratio] 22.6 mg/mg [facility] Laboratory - Urinalysison Protein (U) [Mass/Vol] 15.7 mg/dL High <=11.9 [facility] Leukocytes [#/volume] correc halie for nucleated erythrocytes in Blood by Automated counon 10-09-2024 WBC corrected for nucl RBC Auto (Bld) [#/Vol] Leukocytes [#/volume] corrected for nucleated erythrocytes in Blood by Automated coun 4.0-11.0 [facility] MCH Auto (RBC) [Entitic mass ]on 10-09-2024 MCH (RBC) [Entitic mass] MCH [Entitic mass] by Automated count 26.7-34.0 [facility] MCHC Auto (RBC) [Mass/Vol]on 10-09-2024 MCHC (RBC) [Mass/Vol] MCHC [Mass/volume] by Automated count 29.9-35.2 [facility] MCV Auto (RBC) [Entitic vol] on 10-09-2024 MCV (RBC) [Entitic vol] MCV [Entitic volume] by Automated count 81.0-99.0 [facility] No Panel Informationon 10-09 25-Hydroxy Vitamin D Total 46.5 ng/mL [facility] Comment on above: <20 ng/mL Vit D defi cient20-<30 ng/mL Vit D kymtuecmnleu50-411 ng/mL Vit D sufficient>100 ng/mL Potential Toxicity Parathyroid Hormone (Intact) 76 pg/mL Abnormal 15-65 [facility] Comment on above: Performed at: [address] [id number] Director: Ra Gonzalez PhD, Phone: [phone] Phosphorus Level 3.9 mg/dL 2.6-4.7 [facility] Urine Random Creatinine 82.53 mg/dL 20.00-300.00 [facility] Platelet mean volume Auto (B ld) [Entitic vol]on 10-09-2024 Platelet mean volume (Bld) [Entitic vol] Platelet mean volume [Entitic volume] in Blood by Automated count 9.5-13.5 [facility] Platelets Auto (Bld) [#/Vol] on 10-09-2024 Platelets (Bld) [#/Vol] Platelets [#/volume] in Blood by Automated count 150-450 [facility] RBC Auto (Bld) [#/Vol]on RBC (Bld) [#/Vol] Erythrocytes [#/volume] in Blood by Automated count Low 4.20-5.40 [facility] Serum or plasma anion gap de terminationon 10-09-2024 Anion gap [Moles/Vol] Serum or plasma an ion gap determination [facility] Urine protein/creatinine rat ioon 10-09-2024 Protein/Creatinine (U) [Ratio] Urine protein/creatinine ratio [facility] Erythrocyte distribution wid th Auto (RBC) [Ratio]on 08-18-2024 Erythrocyte distribution width (RBC) [Ratio] Erythrocyte distribution width [Ratio] by Automated count High 11.0-15.0 [facility] Estimated glomerular filtrat ion rate (GFR) non- Americanon 08-18-2024 GFR/1.73 sq M.predicted among non-blacks MDRD (S/P/Bld) [Vol rate/Area] Estimated glomerular filtration rate (GFR) non- Low >=60 mL/min/1.73m 2 [facility] Hematocrit Auto (Bld) [Volum e fraction]on 08-18-2024 Hematocrit (Bld) [Volume fraction] Hematocrit [Volume Fraction] of Blood by Automated count Low 36.0-48.0 [facility] Hemoglobin [Mass/volume] in Bloodon 08-18-2024 Hemoglobin (Bld) [Mass/Vol] Hemoglobin [Mass/volume] in Blood Low 12.0-16.0 [facility] Iron binding capacity [Mass/ volume] in Serum or Plasmaon 08-18-2024 Iron binding capacity [Mass/Vol] Iron binding capacity [Mass/volume] in Serum or Plasma 250.0-450.0 [facility] Iron saturation [Mass Fracti on] in Serum or Plasmaon 08-18-2024 Iron saturation [Mass fraction] Iron saturation [Mass Fraction] in Serum or Plasma [facility] Laboratory - Chemistry and C hemistry - challengeon 08-18-2024 Albumin [Mass/Vol] 3.4 g/dL 3.4-5.0 [facility] Calcium [Mass/Vol] 9.0 mg/dL 8.5-10.1 [facility] Chloride [Moles/Vol] 108 mmol/L High 98-107 [facility] CO2 [Moles/Vol] 26.5 mmol/L 21.0-32.0 [facility] Creatinine [Mass/Vol] 1.36 mg/dL High 0.55-1.02 [facility] Ferritin [Mass/Vol] 17.0 ng/mL 8.0-252.0 [facility] GFR/1.73 sq M.predicted MDRD (S/P/Bld) [Vol rate/Area] 45 mL/min/{1.73_m2} Low >=60 mL/min/1.73m 2 [facility] Glucose [Mass/Vol] 96 mg/dL 74-106 [facility] Iron [Mass/Vol] 71.0 ug/dL 50.0-170.0 [facility] Magnesium [Mass/Vol] 2.4 mg/dL 1.8-2.4 [facility] Potassium [Moles/Vol] 4.7 mmol/L 3.5-5.1 [facility] Sodium [Moles/Vol] 140 mmol/L 136-145 [facility] Urate [Mass/Vol] 6.5 mg/dL High 2.6-6.0 [facility] Urea nitrogen [Mass/Vol] 36.0 mg/dL High 7.0-18.0 [facility] Urea nitrogen/Creatinine [Mass ratio] 26.5 mg/mg [facility] Leukocytes [#/volume] correc halie for nucleated erythrocytes in Blood by Automated counon 08-18-2024 WBC corrected for nucl RBC Auto (Bld) [#/Vol] Leukocytes [#/volume] corrected for nucleated erythrocytes in Blood by Automated coun 4.0-11.0 [facility] MCH Auto (RBC) [Entitic mass ]on 08-18-2024 MCH (RBC) [Entitic mass] MCH [Entitic mass] by Automated count 26.7-34.0 [facility] MCHC Auto (RBC) [Mass/Vol]on 08-18-2024 MCHC (RBC) [Mass/Vol] MCHC [Mass/volume] by Automated count 29.9-35.2 [facility] MCV Auto (RBC) [Entitic vol] on 08-18-2024 MCV (RBC) [Entitic vol] MCV [Entitic volume] by Automated count 81.0-99.0 [facility] No Panel Informationon 08-18 25-Hydroxy Vitamin D Total 45.3 ng/mL [facility] Comment on above: <20 ng/mL Vit D defi cient20-<30 ng/mL Vit D bwoclgmsnwor84-900 ng/mL Vit D sufficient>100 ng/mL Potential Toxicity Parathyroid Hormone (Intact) 106 pg/mL Abnormal 15-65 [facility] Comment on above: Performed at: [email or web address] [address] [id number] Director: Ra Gonzalez PhD, Phone: [phone] Phosphorus Level 3.7 mg/dL 2.6-4.7 [facility] Urine Random Creatinine 36.44 mg/dL 20.00-300.00 [facility] Urine Random Total Protein <6.0 mg/dL <=11.9 [facility] Office Visiton 08-18-2024 Follow-up visit [id number] Radha Gutiérrez 1945 F Date Provider Department Center 08/18/2024 [id number] FREEDMAN MAGNUS [place] Family History Problem Relation Age of Onset Heart failure Father Family Status - Relation Status Age at Father Level of Service:78688 HI OFFICE/OUTPATIENT ESTABLISHED LOW MDM 20 MIN Normal [facility] Platelet mean volume Auto (B ld) [Entitic vol]on 08-18-2024 Platelet mean volume (Bld) [Entitic vol] Platelet mean volume [Entitic volume] in Blood by Automated count 9.5-13.5 [facility] Platelets Auto (Bld) [#/Vol] on 08-18-2024 Platelets (Bld) [#/Vol] Platelets [#/volume] in Blood by Automated count 150-450 [facility] RBC Auto (Bld) [#/Vol]on RBC (Bld) [#/Vol] Erythrocytes [#/volume] in Blood by Automated count Low 4.20-5.40 [facility] Serum or plasma anion gap de terminationon 08-18-2024 Anion gap [Moles/Vol] Serum or plasma an ion gap determination [facility] Office Visiton 03-21-2024 Follow-up visit [id number] Radha Gutiérrez 1945 F Date Provider Department [place] 03/21/2024 ROBERT GEE Family History Problem Relation Age of Onset Heart failure Father Family Status - Relation Status Age at Father Level of Service:78142 HI OFFICE/OUTPATIENT ESTABLISHED LOW MDM 20 MIN [facility] [place] 36on 02-11-2024 36 Tried to contact patient and she has no VM set up. Will try again on Wednesday morning. [facility] [place] Documentationon 02-11-2024 Documentation [id number] Radha Gutiérrez 1945 Provider Department [place] 02/11/2024 TOYA VALENCIA Viky Family History Problem Relation Age of Onset Heart failure Father Family Status - Relation Status Age at Father [facility] [place] 36on 02-08-2024 36 Patient had her device [...] Dr. Madden until 03/21. Please advise. Thanks. [facility] [place] Telephoneon 02-08-2024 Telephone [id number] Radha Gutiérrez 1945 F Date Provider Department Center 02/08/2024 [id number], CARIDAD BH CARD [facility] Family History Problem Relation Age of Onset Heart failure Father Family Status - Relation Status Age at Father [facility] [place] Office Visiton 12-01-2023 Follow-up visit [id number] Radha Gutiérrez 1945 F Date Provider Department Center 12/01/2023 JonnaTOYA HUBBARD [facility] Family History Problem Relation Age of Onset Heart failure Father Family Status - Relation Status Age at Father Level of Service:38493 HI POSTOP FOLLOW UP VISIT RELATED TO ORIGINAL PX [facility] [place] HPon 11-01-2023 [facility] Electrophysiology Consult Note Reason for [...] mg tab (more content not included)... Normal [facility] NURSNOTEon 11-01-2023 NURSNOTE RN educated pt on d/ c instructions. RN encouraged pt to voice any questions or concerns. Pt verbalizes no questions or concerns at this time. Normal [facility] INSULINon 09-23-2022 Insulin 7.9 uIU/mL Normal 2.6-24.9 [facility] [place] Comment on above: Performed By: #### I NSULIN ####[facility] [address] [place], [place] [address]Dr. Ravin Dior CBC AUTO DIFFon 09-22-2022 BASO # 0.0 103/ul Normal 0.0-0.1 [facility] [place] Comment on above: Performed By: #### C BC ####[facility] [address] [place] [address]DrViky Dior Basophils/100 WBC (Bld) 0.4 % Normal 0.2-2.0 [facility] Comment on above: Performed By: #### C BC ####[facility] [address] [place] [address]Dr. Ravin Dior EO # 0.6 103/ul Normal 0.0-0.7 [facility] Comment on above: Performed By: #### C BC ####[facility] D[address] [place], [place] [address]Dr. Ravin Dior Eosinophils/100 WBC (Bld) 6.6 % Normal 0.9-7.0 [facility] Comment on above: Performed By: #### C BC ####[facility] V[address] [place], [place] [address]Dr. Ravin Dior Erythrocyte distribution width (RBC) [Ratio] 16.2 % Critically high 11.0-15.0 [facility] [place] Comment on above: Performed By: #### C BC ####[facility] C[address] [place], [place] [address]Dr. Ravin Dior Hematocrit (Bld) [Volume fraction] 43.3 % Normal 36.0-48.0 [facility] Comment on above: Performed By: #### C BC ####[facility] [address] [place], [place] [address]Dr. Ravin Dior Hemoglobin (Bld) [Mass/Vol] 13.4 g/dL Normal 12.0-16.0 [facility] Comment on above: Performed By: #### C BC ####[facility] [address] [place], [place] [address]Dr. Ravin Dior IG # 0.05 10e3/ul Critically high 0.00-0.03 [facility] Comment on above: Performed By: #### C BC ####[facility] Zvrvp[address] [place], [place] [address]Dr. Ravin Dior IG % 0.5 % Normal 0.0-0.5 [facility] Comment on above: Performed By: #### C BC ####[facility] [address] [place], [place] [address]Dr. Ravin Dior LYMPH # 2.1 103/ul Normal 1.2-3.8 [facility] Comment on above: Performed By: #### C BC ####[facility] [address] [place] [address]Dr. Ravin Dior Lymphocytes/100 WBC (Bld) 23.1 % Normal 20.5-60.0 [facility] Comment on above: Performed By: #### C BC ####[facility] [address] [place] [address]Dr. Ravin Dior MANUAL DIFF REQ NO Normal [facility] Comment on above: Performed By: #### C BC ####[facility] [address] [place] [address]Dr. Ravin Dior MCH (RBC) [Entitic mass] 29.5 pg Normal 26.7-34.0 [facility] Comment on above: Performed By: #### C BC ####[facility] [address] [place], [place] [address]Dr. Novalilliana Dior MCHC (RBC) [Mass/Vol] 30.9 g/dL Normal 29.9-35.2 [facility] Comment on above: Performed By: #### C BC ####[facility] [address]true[address] [place], [place] [address]Dr. Ravin Dior MCV (RBC) [Entitic vol] 95.4 fL Normal 81.0-99.0 [facility] Comment on above: Performed By: #### C BC ####[facility] [address] [place] [address]Dr. Ravin Dior MONO # 0.5 103/ul Normal 0.3-0.8 [facility] Comment on above: Performed By: #### C BC ####[facility] Md[address] [place], [place] [address]Dr. Ravin Dior Monocytes/100 WBC (Bld) 5.8 % Normal 1.7-12.0 [facility] Comment on above: Performed By: #### C BC ####[facility] [address] [place], [place] [address]Dr. Novalilliana Ovi NEUT # 5.8 103/ul Normal 1.4-6.5 [facility] Comment on above: Performed By: #### C BC ####[facility] [address] [place] [address]Dr. Ravin Ovi Neutrophils/100 WBC (Bld) 63.6 % Normal 43.0-75.0 [facility] Comment on above: Performed By: #### C BC ####[facility] [address] [place] [address]Dr. Novalilliana Ovi Platelet mean volume (Bld) [Entitic vol] 10.7 fL Normal 9.5-13.5 [facility] Comment on above: Performed By: #### C BC ####[facility] [address] [place] [address]DrViky Dior PLT 223 103/ul Normal 150-450 [facility] Comment on above: Performed By: #### C BC ####[facility] [address] [place] [address]Dr. Ravin Dior RBC 4.54 106/ul Normal 4.20-5.40 [facility] Comment on above: Performed By: #### C BC ####[facility] [address] [place] [address]DrViky Dior WBC 9.2 103/ul Normal 4.0-11.0 [facility] Comment on above: Performed By: #### C BC ####[facility] [address] [place] [address]DrViky Dior FREE THYROXINE INDEX T7on FTI 2.44 Normal 1.30-4.50 [facility] Comment on above: Performed By: #### C MP, T7, TSH, LIPID #### [facility] [address] [place] [address] [address] Ravin Dior T3U 33.0 % Normal 30.0-39.0 [facility] Comment on above: Performed By: #### C MP, T7, TSH, LIPID #### [facility] [address] [place] [address] [address] Ravin Dior T4 [Mass/Vol] 7.40 ug/dL Normal 4.80-13.90 [facility] Comment on above: Performed By: #### C MP, T7, TSH, LIPID #### [facility] [address] [place], [place] [address] Dr. Ravin Dior GLYCOHEMOGLOBIN A1Con 2022 ADA RECOMMENDATION SEE BELOW Normal [facility] Comment on above: Result Comment: ADA RECOMMENDED LIMIT 4.0 - 6.0 ADA THERAPEUTIC TARGET < 7.0 ACTION SUGGESTED > 7.0 Performed By: #### A 1C ####[facility] [address] [place] [address]DrViky Dior Glucose [Mass/Vol] 105 mg/dL Normal [facility] Comment on above: Performed By: #### A 1C ####[facility] [address] [place] [address]DrViky Dior HbA1c (Bld) [Mass fraction] 5.3 % Normal 4.5-6.2 [facility] [place] Comment on above: Performed By: #### A 1C ####[facility] [address] [place] [id number] Dior IRONon 09-22-2022 Iron [Mass/Vol] 81.0 ug/dL Normal 50.0-170.0 [facility] Comment on above: Performed By: #### I SEAMUS ####[facility] [address] [place] [address]DrViky Dior LIPID PROFILEon 09-22-2022 CHOL-HDL RATIO NORM SEE BELOW Normal [facility] Comment on above: Result Comment: 3.3 - 4.4 LOW RISK 4.4 - 7.1 AVERAGE RISK 7.1 - 11.0 MODERATE RISK >11.0 HIGH RISK Performed By: #### C MP, T7, TSH, LIPID ####[facility] [address] [place] [id number] Dior Cholesterol [Mass/Vol] 159 mg/dL Normal <=200 [facility] [place] Comment on above: Performed By: #### C MP, T7, TSH, LIPID ####[facility] [address] [place], [place] [address]Dr. Ravin Dior Cholesterol in HDL [Mass/Vol] 47 mg/dL Normal 40-60 [facility] Comment on above: Performed By: #### C MP, T7, TSH, LIPID ####[facility] [address] [place] [id number]. Ravin Dior Cholesterol in LDL [Mass/Vol] 96.4 mg/dL Normal [facility] Comment on above: Performed By: #### C MP, T7, TSH, LIPID ####[facility] [address] [place] [id number]. Ravin Dior Cholesterol.total/Cho lesterol in HDL [Mass ratio] 3.4 {ratio} Normal [facility] [place] Comment on above: Performed By: #### C MP, T7, TSH, LIPID ####[facility] [address] [place] [address]Dr. Ravin Dior HDL NORMAL > or = 60 mg/dl - LO W CARDIOVASCULAR RISK <40 mg/dl - HIGH CARDIOVASCULAR RISK Normal [facility] [place] Comment on above: Performed By: #### C MP, T7, TSH, LIPID ####[facility] [address] [place] [address]Dr. Ravin iDor LDL CALC NORMAL SEE BELOW Normal [facility] Comment on above: Result Comment: <100 mg/dl OPTIMAL 100 - 129 mg/dl NEAR OR ABOVE OPTIMAL 130 - 159 mg/dl BORDERLINE HIGH 160 - 189 mg/dl HIGH >190 mg/dl VERY HIGH Performed By: #### C MP, T7, TSH, LIPID ####[facility] [address] [place] [id number]. Ravin Dior Triglyceride [Mass/Vol] 78 mg/dL Normal <=150 [facility] Comment on above: Performed By: #### C MP, T7, TSH, LIPID ####[facility] [address] [place] [id number]. Ravin Dior VLDL CALC 15.6 mg/dL Normal [facility] Comment on above: Performed By: #### C MP, T7, TSH, LIPID ####[facility] [address] [place], [place] [address]GdDr. Ravin Dior MG MAMM SCREEN 3D NIKOS CADon 09-22-2022 MG MAMM SCREEN 3D NIKOS CAD Patient: RADHA GUTIÉRREZ Exam Date: 09/22/2022 : 1945 Gender:F Ordering : [facility] Admission #: [id number] Family : Order #: [id number] CLICK HERE TO VIEW EXAM RADIOLOGY REPORT [...] Treatments None Family Cancers None LOCATION: [facility] BREAST COMPOSITION: Almost entirely fatty. [...] Valenzuela M.D. on 09/22/2022 at 17:02 Normal [facility] [place] PROF 14(COMP METB)on 023 Albumin [Mass/Vol] 3.3 g/dL Critically low 3.4-5.0 [facility] Comment on above: Performed By: #### C MP, T7, TSH, LIPID #### [facility] [address] [place] [address] [address] Ravin Dior Albumin/Globulin [Mass ratio] 0.7 {ratio} Normal [facility] [place] Comment on above: Performed By: #### C MP, T7, TSH, LIPID #### [facility] [address] [place] [address] [address] Ravin Dior ALP [Catalytic activity/Vol] 207 U/L Critically high 46-116 [facility] [place] Comment on above: Performed By: #### C MP, T7, TSH, LIPID #### [facility] [address] [place] [address] [address] Ravin Dior ALT [Catalytic activity/Vol] 47 U/L Normal 14-59 [facility] [place] Comment on above: Performed By: #### C MP, T7, TSH, LIPID #### [facility] [address] [place] [address] Dr. Ravin Dior Anion gap [Moles/Vol] 11.5 mmol/L Normal [facility] Comment on above: Performed By: #### C MP, T7, TSH, LIPID #### [facility] [address] [place] [address] Dr. Ravin Dior AST [Catalytic activity/Vol] 35 U/L Normal 15-37 [facility] [place] Comment on above: Performed By: #### C MP, T7, TSH, LIPID #### [facility] [address] [place] [address] Dr. Ravin Dior Bilirubin [Mass/Vol] 0.6 mg/dL Normal 0.2-1.0 [facility] [place] Comment on above: Performed By: #### C MP, T7, TSH, LIPID #### [facility] [address] [place] [address] Dr. Ravin Dior Calcium [Mass/Vol] 9.2 mg/dL Normal 8.5-10.1 [facility] Comment on above: Performed By: #### C MP, T7, TSH, LIPID #### [facility] [address] [place] [address] Dr. Ravin Dior Chloride [Moles/Vol] 109 mmol/L Critically high 98-107 [facility] [place] Comment on above: Performed By: #### C MP, T7, TSH, LIPID #### [facility] [address] [address] [address] Ravin Dior CO2 [Moles/Vol] 27.7 mmol/L Normal 21.0-32.0 [facility] Comment on above: Performed By: #### C MP, T7, TSH, LIPID #### [facility] [address] [address] [address] Ravin Dior Creatinine [Mass/Vol] 0.94 mg/dL Normal 0.55-1.02 [facility] [place] Comment on above: Performed By: #### C MP, T7, TSH, LIPID #### [facility] [address] [place] [address] Dr. Ravin Dior EGFR-AF BURKINAN >60 Normal >=60 [facility] Comment on above: Performed By: #### C MP, T7, TSH, LIPID #### [facility] [address] [place] [address] Dr. Ravin Dior EGFR-NON AF BURKINAN 58 mL/min/1.73m2 Critically low >=60 [facility] [place] Comment on above: Performed By: #### C MP, T7, TSH, LIPID #### [facility] [address] [place] [address] Dr. Ravin Dior Globulin (S) [Mass/Vol] 4.7 g/dL Normal [facility] [place] Comment on above: Performed By: #### C MP, T7, TSH, LIPID #### [facility] [address] [place] [address] Dr. Ravin Dior Glucose [Mass/Vol] 95 mg/dL Normal 74-106 [facility] Comment on above: Performed By: #### C MP, T7, TSH, LIPID #### [facility] [address] [place] [address] Dr. Ravin Dior Potassium [Moles/Vol] 4.2 mmol/L Normal 3.5-5.1 [facility] [place] Comment on above: Performed By: #### C MP, T7, TSH, LIPID #### [facility] [address] [place] [address] Dr. Ravin Dior Protein [Mass/Vol] 8.0 g/dL Normal 6.4-8.2 [facility] Comment on above: Performed By: #### C MP, T7, TSH, LIPID #### [facility] [address] [place] [address] Dr. Ravin Dior Sodium [Moles/Vol] 144 mmol/L Normal 136-145 [facility] Comment on above: Performed By: #### C MP, T7, TSH, LIPID #### [facility] [address] [address] [address] Ravin Dior Urea nitrogen [Mass/Vol] 21.0 mg/dL Critically high 7.0-18.0 [facility] [place] Comment on above: Performed By: #### C MP, T7, TSH, LIPID #### [facility] [address] [address] [address] Ravin Dior Urea nitrogen/Creatinine [Mass ratio] 22.3 mg/mg Normal [facility] [place] Comment on above: Performed By: #### C MP, T7, TSH, LIPID #### [facility] [address] [address] [address] Ravin Dior TSHon 09-22-2022 TSH 2.085 uIU/mL Normal 0.358-3.740 [facility] Comment on above: Performed By: #### C MP, T7, TSH, LIPID #### [facility] [address] ABD/PELVIS WO CONon [...] was used, including Automated Exposure Control. 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 Normal [facility] CBC AUTO DIFFon 05-17-2022 BASO # 0.0 103/ul Normal 0.0-0.1 [facility] Comment on above: Performed By: #### C BC ####[facility] [address] [place], [place] [address]SiViky Dior Basophils/100 WBC (Bld) 0.2 % Normal 0.2-2.0 [facility] Comment on above: Performed By: #### C BC ####[facility] [address] [place], [place] [address]YnViky Dior EO # 0.1 103/ul Normal 0.0-0.7 [facility] Comment on above: Performed By: #### C BC ####[facility] [address] [id number]. Ravin Dior Eosinophils/100 WBC (Bld) 1.4 % Normal 0.9-7.0 [facility] Comment on above: Performed By: #### C BC ####[facility] [address] [address]Dr. Ravin Dior Erythrocyte distribution width (RBC) [Ratio] 13.7 % Normal 11.0-15.0 [facility] [place] Comment on above: Performed By: #### C BC ####[facility] [address] [place], [place] [address]Dr. Ravin Dior Hematocrit (Bld) [Volume fraction] 44.4 % Normal 36.0-48.0 [facility] [place] Comment on above: Performed By: #### C BC ####[facility] [address] [place], [place] [address]Dr. Ravin Dior Hemoglobin (Bld) [Mass/Vol] 14.7 g/dL Normal 12.0-16.0 [facility] [place] Comment on above: Performed By: #### C BC ####[facility] [address] [place], [place] [address]Dr. Ravin Dior IG # 0.05 10e3/ul Critically high 0.00-0.03 [facility] Comment on above: Performed By: #### C BC ####[facility] [address] [place], [place] [address]Dr. Ravin Dior IG % 0.5 % Normal 0.0-0.5 [facility] Comment on above: Performed By: #### C BC ####[facility] [address] [place], [place] [address]Dr. Ravin Dior LYMPH # 1.7 103/ul Normal 1.2-3.8 [facility] Comment on above: Performed By: #### C BC ####[facility] [address] [place], [place] [address]Dr. Ravin Dior Lymphocytes/100 WBC (Bld) 17.1 % Critically low 20.5-60.0 [facility] Comment on above: Performed By: #### C BC ####[facility] [address] [address]Dr. Ravin Dior MANUAL DIFF REQ NO Normal [facility] Comment on above: Performed By: #### C BC ####[facility] [address] [id number]. Ravin Dior MCH (RBC) [Entitic mass] 30.7 pg Normal 26.7-34.0 [facility] [place] Comment on above: Performed By: #### C BC ####[facility] [address] [address]Dr. Ravin Dior MCHC (RBC) [Mass/Vol] 33.1 g/dL Normal 29.9-35.2 [facility] Comment on above: Performed By: #### C BC ####[facility] [address] [place], [place] [address]Dr. Ravin Dior MCV (RBC) [Entitic vol] 92.7 fL Normal 81.0-99.0 [facility] [place] Comment on above: Performed By: #### C BC ####[facility] [address] [place], [place] [address]Dr. Ravin Dior MONO # 0.6 103/ul Normal 0.3-0.8 [facility] Comment on above: Performed By: #### C BC ####[facility] [address] [address]Dr. Ravin Dior Monocytes/100 WBC (Bld) 5.7 % Normal 1.7-12.0 [facility] Comment on above: Performed By: #### C BC ####[facility] [address] [place], [place] [address]DrViky Dior NEUT # 7.7 103/ul Critically high 1.4-6.5 [facility] Comment on above: Performed By: #### C BC ####[facility] [address] [address]Dr. Ravin Dior Neutrophils/100 WBC (Bld) 75.1 % Critically high 43.0-75.0 [facility] Comment on above: Performed By: #### C BC ####[facility] [address] [address]Dr. Ravin Dior Platelet mean volume (Bld) [Entitic vol] 10.4 fL Normal 9.5-13.5 [facility] [place] Comment on above: Performed By: #### C BC ####[facility] [address] [address]Dr. Ravin Dior PLT 294 103/ul Normal 150-450 [facility] [place] Comment on above: Performed By: #### C BC ####[facility] [address] [address]Dr. Ravin Dior RBC 4.79 106/ul Normal 4.20-5.40 [facility] [place] Comment on above: Performed By: #### C BC ####[facility] [address] [address]Dr. Ravin Dior WBC 10.2 103/ul Normal 4.0-11.0 [facility] [place] Comment on above: Performed By: #### C BC ####[facility] [address] [place], [place] [address]DrViky Dior ER URINE PROFILEon 2 Bilirubin Ql (U) Negative Normal NEGATIVE [facility] Comment on above: Performed By: #### DENY KAUFFMANRO #### [facility] [address] [place] [address] Dr. Ravin Dior Clarity (U) CLEAR Normal CLEAR [facility] Comment on above: Performed By: #### DENY KAUFFMANRO #### [facility] [address] [place] [address] Dr. Ravin Dior Color (U) LT. YELLOW Normal YELLOW [facility] Comment on above: Performed By: #### DENY KAUFFMANRO #### [facility] [address] [place] [address] Dr. Ravin PARKER A micrscopic examination will be performed if indicated. Normal [facility] Comment on above: Performed By: #### DENY KAUFFMANRO #### [facility] [address] [place] [address] Dr. Ravin Dior Glucose Ql (U) Negative Normal NEGATIVE [facility] Comment on above: Performed By: #### DENY KAUFFMANRO #### [facility] [address] [place] [address] Dr. Ravin Dior Hemoglobin Ql (U) Negative Normal NEGATIVE [facility] Comment on above: Performed By: #### DENY KAUFFMANRO #### [facility] [address] [place] [address] Dr. Raivn Dior Ketones Ql (U) TRACE Abnormal NEGATIVE [facility] Comment on above: Performed By: #### DENY KAUFFMANRO #### [facility] [address] [place] [address] Dr. Ravin Dior LEUKOCYTES SMALL Abnormal NEGATIVE [facility] [place] Comment on above: Performed By: #### DENY KAUFFMANRO #### [facility] [address] [place] [address] Dr. Ravin Dior Nitrite Ql (U) Negative Normal NEGATIVE [facility] Comment on above: Performed By: #### DENY KAUFFMANRO #### [facility] [address] [place] [address] Dr. Ravin Dior pH (U) 6.0 [pH] Normal 5-9 [facility] [place] Comment on above: Performed By: #### DENY KAUFFMANRO #### [facility] [address] [place] [address] Dr. Ravin Dior SPEC GRAVITY 1.010 Normal 1.005-<=1.025 [facility] Comment on above: Performed By: #### DENY KAUFFMANRO #### [facility] [address] [place] [address] Dr. Ravin Dior UA PROTEIN Negative Normal NEGATIVE/ TRACE [facility] Comment on above: Performed By: #### DENY KAUFFMANRO #### [facility] [address] [place] [address] Dr. Ravin Dior UR MICRO IND INDICATED Normal [facility] [place] Comment on above: Performed By: #### E DENY SOUTHRO #### [facility] [address] [address] [address] Ravin Dior Urobilinogen Qn (U) 0.2 {Chandler'U}/dL Normal 0.2 - 1. 0 [facility] [place] Comment on above: Performed By: #### DENY KAUFFMANRO #### [facility] [address] [address] [address] Ravin Dior LACTATE/LACTIC ACIDon 2021 Lactate [Moles/Vol] 1.3 mmol/L Normal 0.4-1.9 [facility] Comment on above: Performed By: #### L ACT ####[facility] [address] [address]Dr. Ravin Dior LIPASEon 05-17-2022 Lipase [Catalytic activity/Vol] 63.0 U/L Critically low 73.0-393.0 [facility] [place] Comment on above: Performed By: #### C MP, LIPA #### [facility] [address] [address] [address] Ravin Dior PROF 14(COMP METB)on 022 Albumin [Mass/Vol] 3.4 g/dL Normal 3.4-5.0 [facility] Comment on above: Performed By: #### C MP, LIPA #### [facility] [address] [address] [address] Ravin Dior Albumin/Globulin [Mass ratio] 0.8 {ratio} Normal [facility] [place] Comment on above: Performed By: #### C MP, LIPA #### [facility] [address] [address] [address] Ravin Dior ALP [Catalytic activity/Vol] 143 U/L Critically high 46-116 [facility] Comment on above: Performed By: #### C MP, LIPA #### [facility] [address] [address] [address] Ravin Dior ALT [Catalytic activity/Vol] 29 U/L Normal 14-59 [facility] Comment on above: Performed By: #### C MP, LIPA #### [facility] [address] [address] [address] Ravin Dior Anion gap [Moles/Vol] 7.6 mmol/L Normal [facility] [place] Comment on above: Performed By: #### C MP, LIPA #### [facility] [address] [address] [address] Ravin Dior AST [Catalytic activity/Vol] 39 U/L Critically high 15-37 [facility] [place] Comment on above: Performed By: #### C MP, LIPA #### [facility] [address] [address] [address] Ravin Dior Bilirubin [Mass/Vol] 0.7 mg/dL Normal 0.2-1.0 [facility] [place] Comment on above: Performed By: #### C MP, LIPA #### [facility] [address] [place] [address] Dr. Ravin Dior Calcium [Mass/Vol] 9.1 mg/dL Normal 8.5-10.1 [facility] Comment on above: Performed By: #### C MP, LIPA #### [facility] [address] [address] [address] Ravin Dior Chloride [Moles/Vol] 102 mmol/L Normal 98-107 [facility] [place] Comment on above: Performed By: #### C MP, LIPA #### [facility] [address] [address] [address] Ravin Dior CO2 [Moles/Vol] 31.1 mmol/L Normal 21.0-32.0 [facility] Comment on above: Performed By: #### C MP, LIPA #### [facility] [address] [address] [address] Ravin Dior Creatinine [Mass/Vol] 0.88 mg/dL Normal 0.55-1.02 [facility] [place] Comment on above: Performed By: #### C MP, LIPA #### [facility] [address] [address] [address] Ravin Dior EGFR-AF BURKINAN >60 Normal >=60 [facility] Comment on above: Performed By: #### C MP, LIPA #### [facility] [address] [address] [address] Ravin Dior EGFR-NON AF BURKINAN >60 Normal >=60 [facility] Comment on above: Performed By: #### C MP, LIPA #### [facility] [address] [address] [address] Ravin Dior Globulin (S) [Mass/Vol] 4.5 g/dL Normal [facility] [place] Comment on above: Performed By: #### C MP, LIPA #### [facility] [address] [address] [address] Ravin Dior Glucose [Mass/Vol] 100 mg/dL Normal 74-106 [facility] Comment on above: Performed By: #### C MP, LIPA #### [facility] [address] [address] [address] Ravin Dior Potassium [Moles/Vol] 3.7 mmol/L Normal 3.5-5.1 [facility] [place] Comment on above: Performed By: #### C MP, LIPA #### [facility] [address] [address] [address] Ravin Dior Protein [Mass/Vol] 7.9 g/dL Normal 6.4-8.2 [facility] Comment on above: Performed By: #### C MP, LIPA #### [facility] [address] [address] [address] Ravin Dior Sodium [Moles/Vol] 137 mmol/L Normal 136-145 [facility] Comment on above: Performed By: #### C MP, LIPA #### [facility] [address] [address] [address] Ravin Dior Urea nitrogen [Mass/Vol] 12.0 mg/dL Normal 7.0-18.0 [facility] [place] Comment on above: Performed By: #### C MP, LIPA #### [facility] [address] [address] [address] Ravin Dior Urea nitrogen/Creatinine [Mass ratio] 13.6 mg/mg Normal [facility] [place] Comment on above: Performed By: #### C MP, LIPA #### [facility] [address] [address] [address] Ravin Dior URINE MICROSCOPIC ONLYon BACTERIA NONE SEEN Normal NONE SEEN [facility] Comment on above: Performed By: #### E RUR, UMICRO #### [facility] [address] [place] [address] Dr. Ravin Dior Bacteria identified Cx Nom (U) NOT INDICATED Normal [facility] Comment on above: Performed By: #### E RUR, UMICRO #### [facility] [address] [place] [address] Dr. Ravin Dior CAST NONE SEEN Normal NONE SEEN [facility] [place] Comment on above: Performed By: #### E RUR, UMICRO #### [facility] [address] [place] [address] Dr. Ravin Dior Crystals LM Nom (Urine sed) NONE SEEN Normal NONE SEEN [facility] Comment on above: Performed By: #### E RUR, UMICRO #### [facility] [address] [place] [address] Dr. Ravin Dior Epithelial cells LM Ql (Urine sed) FEW Abnormal NONE SEEN /RARE [facility] Comment on above: Performed By: #### E RUR, UMICRO #### [facility] [address] [place] [address] Dr. Ravin Dior MUCOUS NONE SEEN Normal NONE SEEN [facility] Comment on above: Performed By: #### E RUR, UMICRO #### [facility] [address] [place] [address] Dr. Ravin Dior RBC NONE SEEN Abnormal 0-2 [facility] Comment on above: Performed By: #### E RUR, UMICRO #### [facility] [address] [place] [address] Dr. Ravin Dior WBC 0-2 Abnormal NONE SEEN [facility] Comment on above: Performed By: #### E RUR, UMICRO #### [facility] [address] [place] [address] Dr. Ravin Dior Ambulatory Clinical Summaryo n 07-24-2020 Ambulatory Clinical Summary {[id number] Normal Travis [facility] G[facility]enterology Office/Clin ic Noteon 07-24-2020 [...] course, # 28 cap(s), Refills(s) 0, [id number] 165, cm, 07/24/20 12:03:00 EST, Height/Length Dosing, 95.9, kg, 07/24/20 12:03:00 EST, Weight Dosing metronidazole, 250 mg = 1 tab(s), Oral, TID, X 7 day(s), # 21 tab(s), Refills(s) 0, Pharmacy: [facility]/pharmacy #[id number], 165, cm, 07/24/20 12:03:00 EST, [...] water, # 160 cap(s), Refills(s) 1, Pharmacy: [facility]/pharmacy #[id number], 165, cm, 07/24/20 12:03:00 EST, Height/Length Dosing, 95.9, kg, 07/24/20 12:03:... Orders: pantoprazole, 40 mg = 2 tab(s), Oral, Daily, X 90 day(s), # 180 tab(s), Refills(s) 3, Pharmacy: [facility]/pharmacy #[id number], 165, cm, 07/24/20 12:03:00 EST, Height/Length Dosing, 95.9, kg, 07/24/20 12:03:00 EST, Weight Dosing Follow-up With When Contact Information Isabelle Ramirez MD In 12 months [address] [address]- Additional Instructions: Problem List/Past Medical [...] 12/16/2018 Exercise - Occasional exercise, 12/16/2018 Other Kmeaqnrn-6-2 cups blair;y, 12/16/2018 Substance Abuse - Denies Substance Abuse, 12/16/2018 Tobacco Never (less than 100 in lifetime) Tobacco Use:., 07/24/2020 Never (less than 100 in lifetime) Tobacco Use:. Never Smokeless Tobacco Use:., 02/01/2019 [facility] Comment on above: Result Comment: Elec tronically Signed By: Taylor Mccauley MD, Isabelle\.br\Date and Time Signed: 07/24/20 13:13 EST Auth for Release of Medical Recordson 02-09-2020 Auth for Release of Medical Records [id number] [facility] Patient Letter FTon 2019 Patient Letter [facility] [place] [place] January 24, 2020 RADHA GUTIÉRREZ [address] [place] [address] BROCKRADHA 1945 Dear Radha, This is a reminder that you are due for an appointment with Dr. Garland or Dr. Mccauley. Please call [facility] at [phone] to schedule an appointment at your earliest convenience. Thank you, [facility] Normal [facility] Vital Signs Date Time Vital Sign Value Performing Clinician Chuckie osborne 10-19-2024 13:15-0400 Body height 165.1 cm [facility] 10-19-2024 13:15-0400 Body mass index (BMI) [Ratio] 32.3 kg/m2 [facility] 10-19-2024 13:15-0400 Body temperature 97.5 [degF] [facility] 10-19-2024 13:15-0400 Body weight 88.11 kg [facility] 10-19-2024 13:15-0400 Diastolic blood pressure 64 mm[Hg] [facility] 10-19-2024 13:15-0400 Heart rate 75 /min [facility] 10-19-2024 13:15-0400 Respiratory rate 18 /min [facility] 10-19-2024 13:15-0400 SaO2% (BldA) [Mass fraction] 97 % [facility] 10-19-2024 13:15-0400 Systolic blood pressure 99 mm[Hg] [facility] 07-27-2024 10:30-0500 Diastolic blood pressure 68 mm[Hg] [facility] 07-27-2024 10:30-0500 Systolic blood pressure 96 mm[Hg] [facility] 07-27-2024 10:13-0500 Body height 165.1 cm [facility] 07-27-2024 10:13-0500 Body mass index (BMI) [Ratio] 31.3 kg/m2 [facility] 07-27-2024 10:13-0500 Body weight 85.33 kg [facility] 07-27-2024 10:13-0500 Heart rate 85 /min [facility] 07-27-2024 10:13-0500 Respiratory rate 16 /min [facility] 07-27-2024 10:13-0500 SaO2% (BldA) [Mass fraction] 98 % [facility] Encounters Encounter Date Encounter Type Care Provider Facility Start: 10-20-2024 ambulatory [facility] Start: 10-19-2024 End: 10-19-2024 ambulatory [facility] Work Phone: Start: 10-19-2024 End: 10-19-2024 Patient encounter procedure [facility] Work Phone: Start: 10-09-2024 Non-patient / Non-visit [facility] Work Phone: Start: 09-11-2024 ambulatory [facility] Start: 08-18-2024 End: 08-18-2024 [facility] Start: 08-18-2024 Non-patient / Non-visit [facility] Work Phone: Start: 08-15-2024 ambulatory [facility] Start: 08-14-2024 End: 08-14-2024 ambulatory [facility] Start: 08-09-2024 ambulatory [facility] Start: 07-27-2024 End: 07-27-2024 ambulatory [facility] Work Phone: Start: 07-27-2024 End: 07-27-2024 Patient encounter procedure [facility] Nephrology Kevin Work Phone: Start: 07-11-2024 ambulatory [facility] Start: 06-15-2024 ambulatory [facility] Start: 05-22-2024 ambulatory [facility] Start: 05-18-2024 ambulatory [facility] Start: 05-16-2024 ambulatory [facility] Start: 05-15-2024 ambulatory [facility] Start: 05-04-2024 ambulatory [facility] Start: 04-20-2024 ambulatory [facility] Start: 03-27-2024 ambulatory [facility] Start: 03-21-2024 End: 03-21-2024 ambulatory [facility] Start: 03-17-2024 ambulatory [facility] Start: 02-08-2024 End: 02-08-2024 ambulatory [facility] Start: 01-18-2024 ambulatory [facility] Start: 01-17-2024 End: 01-17-2024 ambulatory CARIDAD GARNER Not Available Start: 01-11-2024 End: 01-11-2024 ambulatory SANDIE PAGE Not Available Start: 01-05-2024 ambulatory [facility] Start: 12-28-2023 End: 12-28-2023 Telephone encounter [facility] Start: 12-20-2023 End: 12-20-2023 ambulatory SANDIE PAGE Not Available Start: 12-16-2023 ambulatory [facility] Start: 12-06-2023 End: 12-06-2023 Refill Sonia Tenorio RN [facility] Comment on above: Med Refill Start: 12-01-2023 End: 12-01-2023 ambulatory TOYA RIZO [facility] Start: 11-25-2023 ambulatory [facility] Start: 11-25-2023 Encounter for preprocedural cardiovascular examination [facility] Start: 11-24-2023 ambulatory [facility] Start: 11-23-2023 ambulatory [facility] Start: 11-11-2023 End: 11-11-2023 ambulatory OSWALDO GARCÍA Not Available Start: 11-01-2023 ambulatory [facility] Start: 11-01-2023 End: 11-01-2023 ambulatory [facility] Start: 09-10-2023 End: 09-10-2023 Refill Katelynnnisa Erwin 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 Start: 08-25-2023 Adult BMI Screening Adult BMI Screen ing [facility] Start: 08-25-2023 Tobacco Screening Tobacco Screening [facility] Start: 01-29-2023 COVID-19 Vaccine ( season) COVID-19 Vaccine ( season) [facility] Start: 01-29-2023 Influenza vaccination Influenza Vacc ine [facility] Start: 11-03-2022 ambulatory Ambulatory Facility:H 1 Start: 2010 Fall Risk Screening Fall Risk Screen ing [facility] Start: 1995 Administration of varicella zoster vaccine [facility]Shingles[facility] Start: 1964 DTaP,Tdap and Td Vac cines (1 - Tdap) DTaP,Tdap and Td Vaccines (1 - Tdap) [facility] Start: 1963 Adult BMI Follow Up Plan Adult BMI Follow Up Plan [facility] Start: 1957 Depression Screening [facility] Scre [facility]ing [facility] Start: 1945 Medicare Annual Well ness Visit Medicare Annual Wellness Visit [facility] End: 06-08-2024 Basic metabolic 2000 panel - Serum or Plasma Basic Metabolic Panel Lab Routine Essential hypertension 1 Occurrences starting 06/08/2023 until 06/08/2024 [facility] Work Phone: Comment on above: 1 Occurrences starti ng 06/08/2023 until 06/08/2024 Renal function 1999 panel - Serum or Plasma [facility] Renal function 1999 panel - Serum or Plasma [facility] US Kidney - bilateral Firela n[facility] Immunizations Immunization Date Immunization Notes Care Provider Fa sherie 05-08-2021 influenza virus vaccine, unspecified formulation Mac Erwin APRN-VICKIE Work Phone: [facility] [employer] Payers Date Payer Category Payer Medicare HU[employer]NA MEDICARE HU[employer]NA MEDICARE - [place] RESIDENT [id number] 2013-Present [phone] [address] [address] [place] [address] [id number] 1959 Medicare [id number] 1945 Unknown [id number] 1945 Unknown [id number] 1945 Unknown [id number] 1945 Unknown [id number] 1945 Unknown [id number] 1945 Unknown [id number] 1945 Unknown [id number] 1945 Unknown [id number] 1945 Unknown [id number] 1945 Unknown [id number] 1945 Unknown [id number] Medicare Medicare [id number] Social History Date Type Detail Facility Start: 05-26-2022 End: 10-19-2024 Tobacco smoking status NHIS Never smoked tobacco [facility] Start: 05-26-2022 Tobacco use and exposure Smoke less tobacco non-user 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 Start: 07-04-2020 End: 08-24-2022 History of [address] [facility] Start: 07-04-2020 End: 08-24-[address] [facility] Housing Instability Unknown [facility] Start: 1945 Sex Assigned At Not on file P [facility] Start: 07-27-2024 End: 10-19-2024 Sex Female (finding) [facility] Start: 1945 Sex Assigned At Female F [facility] Medical Equipment Procedure Code Equipment Code Equipment Origin al Text Equipment Identifier Dates Mesh [id number] 3d Rect Plstr Clgn Symbotex 2 Sd Comp Mfl Babsr Rpl [id number] - [facility] - [id number] Start: 06-30-2022 Dev Clsr 30fr Watchman 30mm - [id number] Start: 10-28-2018 Clinical Notes 12-24-2021 to [...] Dr. Hines 2018, implantation of Biventricular ICD ([employer]) 07/05/2023, status post AV node ablation 11/01/[address] Madden. 08/18/2024 office visit: The patient was seen and evaluated in the office today. Overall, she reports feeling well. Abnormal kidney function was incidentally noted on presurgical labs for a planned back surgery, including a potassium of 5.8 and creatinine of 1.62. She has since established care with a locomotive operator helper, whom she saw for the first time [...] oral, Nightly sp (more content not included)... [facility] 03-21-2024 Note MA Electrophysiology Consult Note Reason for [...] GI bleed. She was previously seen by [facility] cardiology. She was initially seen by [...] mg tablet Ta (more content not included)... [facility] 02-14-2024 Note This report has been cancelled. [facility] 02-11-2024 Note RCRI= 2 points Class III Risk 10.1 % 30-day risk of , CO, or cardiac arrest From a cardiac perspective pt may proceed with planned surgery, she is a moderate risk for a moderate risk orthopedic surgery. She may hold Aspirin 5-7 days prior and resume post op. Please monitor hemodynamics carefully and prevent any major fluid shifts. Toya Rizo [facility] Card[facility] Available 7a-5pm via [employer] Code Chat Pager [phone] [facility] 12-28-2023 Miscellaneous Notes Rec'd letter from patient stating that she no longer sees [facility], uses a doctor in [place]. documented in this encounter [facility] 12-28-2023 Telephone encounter Note Rec'd letter from patient stating that she no longer sees [facility], uses a doctor in [place]. [facility] 12-06-2023 Miscellaneous Notes Last OV 06/15/22.slm T/C to pt to sched [facility] f/u appt. No answer and mailbox is full. documented in this encounter [facility] 12-06-2023 Telephone encounter Note Last OV 06/15/22.slm [facility] 12-06-2023 Telephone encounter Note T/C to pt to sched [facility] f/u appt. No answer and mailbox is full. [facility] 12-01-2023 Note Currently pt is doin g quite well s/p recent AV node ablation Remains V paced with BI-V AICd [facility] 12-01-2023 Note No anticoagulation currently [facility] 12-01-2023 Note Patient here for fol low up AV node ablation performed on 11/01/[address] Madden. She denies chest pain, SOB, palpitations, and lightheadedness/syncope. Review of Systems Musculoskeletal: Positive for arthritis and back pain. All other systems reviewed and are negative. [facility] 12-01-2023 Note UTP CARDIOLOGY PROGR ESS NOTE [...] [facility]. She was initially seen by [...] Conjunctiva/sclera: Conjunctivae normal. (more content not included)... [facility] 11-01-2023 Note AV NODE ABLATION PRO CEDURE REPORT DATE OF PROCEDURE: 11/01/2023 PERFORMING PHYSICIAN: Dr. Robert Madden CALENDER INSPECTOR: NA CONSENT: Patient NAME OF THE PROCEDURE: [...] GI bleed. She was previously seen by [facility] cardiology. She was initially seen by [...] Continue anticoagulation. Robert Madden MD Cardiac Electrophysiology. [facility] 11-01-2023 Note Patient: Radha mcghee Procedure Information Date/Time: 11/01/23829 Procedure: AV node ablation Location: [facility] EP / [facility] (Cath) Providers: Robert Madden MD Clinical information reviewed: Tobacco Allergies Meds Med Hx Surg Hx OB Status Fam Hx Physical Exam Airway Mallampati: II TM distance: >3 FB Neck ROM: full Cardiovascular Dental Pulmonary Abdominal Anesthesia Plan ASA 2 CSE Anesthetic plan and risks discussed with patient. Use of blood products discussed with patient who. Additional Equipment Requests [facility] 11-01-2023 Note MA Electrophysiology Consult Note Reason [...] tab (more content not included)... [facility] 09-10-2023 Miscellaneous Notes Please sign and route if you agree. Thank you HODAN 06/22/22 Pt needs annual appt schedule please, thank you. Letter mailed. LMOM for the patient to call and schedule their next appointment with [facility]. documented in this encounter [facility] 09-10-2023 Telephone encounter Note Please sign and route if you agree. Thank you HODAN 06/22/22 Pt needs annual appt schedule please, thank you. Letter mailed. [facility] 09-10-2023 Telephone encounter Note LMOM for the patient to call and schedule their next appointment with [facility]. [facility] 06-11-2023 Miscellaneous Notes Last OV 06/15/22, sent to [facility] front counter attendant for yearly visit to be scheduled. CMP 06/22/22. BMP ordered from refill encounter 06/08/23. Letter has been mailed, but will attempt to send letter via [facility] as last login was 05/07/23. documented in this encounter [facility] 06-11-2023 Telephone encounter Note Last OV 06/15/22, sent to [facility] front counter attendant for yearly visit to be scheduled. CMP 06/22/22. BMP ordered from refill encounter 06/08/23. Letter has been mailed, but will attempt to send letter via [facility] as last login was 05/07/23. [facility] 07-23-2022 Note PAIN MANAGEMENT CONS ULTATION [...] months' time or sooner if needed. [facility] 03-26-2022 Note CONSULTATION CONSULTATION DATE: [...] agrees with the plan of care. [facility] 12-24-2021 Note CONSULTATION PROCEDURE DATE: [...] the procedure well with no complications. [facility] 12-24-2021 Note CONSULTATION CONSULTATION DATE: [...] three months' time, unless otherwise indicated. [facility] Evaluation note Diagnosis Essential hypertension- Primary Unspecified essential hypertension documented in this encounter [facility]* Diagnosis Chronic systolic CHF (congestive heart failure) ([facility]) documented in this encounter [facility]* Diagnosis Onset Date Resolution Status [...] Iron deficiency acute July 27, 2024 10:10am [facility] Work Phone: Evaluation note* Diagnosis Onset [...] Iron deficiency acute October 19, 2024 12:46pm [facility] Work Phone: InstructionsNot on filedocumented in this encounter [facility] filedocumented in this encounter [facility] on filedocumented in this encounter [facility]Not on filedocumented in this encounter [facility] Summary Purpose Family History No [...] DATE CREATED AUTHOR 07/25/2020 [facility] DATE CREATED AUTHOR AUTHOR'S ORGANIZ ATION 10/12/2022 [facility] DATE CREATED AUTHOR AUTHOR'S ORGANIZ ATION 01/17/2024 [facility] EPIC DATE CREATED AUTHOR AUTHOR'S ORGANIZ ATION 10/26/2024 [facility] Reason for Visit (unrecogniz ed section and [...] October 19, 2024 End: October 19, 2024 Respiratory Care Instructor Relationship Specialty Start Date End Date Heaven Staley APRN-CNP [facility] [place] [address] PCP - General Family Medicine 10/30/21 Respiratory Care Instructor Relationship Specialty Start Date End Date Heaven Staley APRN-CNP [address] [place] [address] PCP - General Family Medicine 10/30/21 Respiratory Care Instructor Relationship Specialty Start Date End Date Heaven Staley APRN-CNP [address] [place] [address] PCP - General Family Medicine 10/30/21 Respiratory Care Instructor Relationship Specialty Start Date End Date Heaven Staley APRN-CNP [address] [place] [address] PCP - General Family Medicine 10/30/21 Team [...] BE BASED ON THE PRIMARY CLINICAL RECORDS. [employer] [facility]. provides no warranty or guarantee of the accuracy or completeness of information in this document.
--- NOTE | 2024-11-30 08:29 | PM.CN ---
Consult Note: HPI Data of Consult Patient: known to practice within the last 3 years Requesting Physician: Carmen Ramey NP Primary Care Provider: FIDELINA STALEY Consult Narrative Reason for consult: f/u Narrative: Radha Cornell a pleasant 79 year old female presents for evaluation and management of chronic low back pain and neck pain. Pain today 6/10 ache increased with all activity and decreased with lying down and heat. recently underwent cervical xray with results below. Patient has found moderate benefit to current medication regimen. January 2024 underwent L3-S1 fusion and decompression at L3,4,[address] Ramírez with significant improvement ongoing. Patient continues to have moderate to severe low back and right low pain impacting sleep, social life, ADLS, and ability to stand and walk. RENATO 44%. denies falls or injury since last visit. continues to utilize cane.recently underwent right L4/5 L5/S1 TFESI with mild relief per pt cc:: CC: Carmen Ramey NP [facility] Medical History Rectocele �N81.6 - Rectocele (ICD-10) Bruising �T14.8XXA - Other injury of unspecified body region, initial encounter (ICD-10) Anemia �D64.9 - Anemia, unspecified (ICD-10) Upper back pain �M54.9 - Dorsalgia, unspecified (ICD-10) Neck pain �M54.2 - Cervicalgia (ICD-10) Low back pain �M54.50 - Low back pain, unspecified (ICD-10) Fibromyalgia �M79.7 - Fibromyalgia (ICD-10) Heartburn �R12 - Heartburn (ICD-10) Acid reflux �K21.9 - Gastro-esophageal reflux disease without esophagitis (ICD-10) Sleep apnea �G47.30 - Sleep apnea, unspecified (ICD-10) Atrial fibrillation �I48.91 - Unspecified atrial fibrillation (ICD-10) Surgical History S/P lumbar spine operation �Z98.890 - Other specified postprocedural states (ICD-10) S/P shoulder surgery �Z98.890 - Other specified postprocedural states (ICD-10) History of bariatric surgery �Z98.84 - Bariatric surgery status (ICD-10) H/O heart surgery �Z98.890 - Other specified postprocedural states (ICD-10) H/O: hysterectomy �Z90.710 - Acquired absence of both cervix and uterus (ICD-10) Hx of cholecystectomy �Z90.49 - Acquired absence of other specified parts of digestive tract (ICD-10) Meds Home Medications and Allergies Home Medications �Medication �Instructions �Recorded �Confirmed �Type cholecalciferol (vitamin D3) 125 5,000 unit PO DAILY 11/03/22 11/20/24 History mcg (5,000 unit) capsule furosemide 40 mg tablet (Lasix) 40 mg PO BID 11/03/22 11/20/24 History krill 2 cap PO DAILY 11/03/22 11/20/24 History biw-vw8-zrm-iph-bn6-xxc-astax 1,500 mg-165 mg-67.5 mg capsule losartan 25 mg tablet 25 mg PO DAILY 11/03/22 11/20/24 History metoprolol succinate 25 mg 12.5 mg PO BID 11/03/22 11/20/24 History tablet,extended release 24 hr multivitamin 1 tab PO DAILY 11/03/22 11/20/24 History pantoprazole 40 mg tablet,delayed 40 mg PO BID 11/03/22 12/14/23 History release (Protonix) pramipexole 1 mg tablet (Mirapex) 1 mg PO DAILY 11/03/22 11/20/24 History trazodone 50 mg tablet 50 mg PO DAILY 11/03/22 11/20/24 History vitamin B complex 1 cap PO DAILY 11/03/22 11/20/24 History naloxone 4 mg/actuation nasal 4 mg intranasal Q3M PRN opioid 02/11/23 11/20/24 Rx spray (Narcan) overdose #2 ea baclofen 10 mg tablet 10 mg PO BID PRN muscle spasm #60 07/28/23 11/20/24 Rx tabs oxycodone-acetaminophen 5 mg-325 See Rx Instructions .Route 09/07/24 11/20/24 Rx mg tablet (Percocet) .COMPLEX PRN pain #75 tabs oxycodone-acetaminophen 5 mg-325 1 tab PO .BID-TID PRN pain #75 tabs 10/11/24 11/20/24 Rx mg tablet (Percocet) baclofen 10 mg tablet 10 mg PO BID PRN muscle spasm #60 11/09/24 11/20/24 Rx tabs oxycodone-acetaminophen 5 mg-325 1 tab PO TID PRN pain #75 tabs 11/09/24 11/20/24 Rx mg tablet (Percocet) diphenhydramine HCl 25 mg capsule 25 mg PO Q8H PRN allergy symptoms 11/20/24 11/20/24 History (Benadryl) Allergies Allergy/AdvReac Type Severity Reaction Status Date / Time codeine Allergy Mild Hives Verified 11/20/24 06:47 pregabalin (From Lyrica) Allergy Shakiness Verified 11/20/24 06:47 Exam Constitutional Documenting provider has reviewed patient's vital signs: yes Common normals: no apparent distress, oriented x3, healthy appearing, alert and well nourished General appearance: cooperative HENMT Common normals: normocephalic, hearing grossly normal bilaterally and moist oral mucous membranes Head and scalp: normocephalic Eye Common normals: PERRL Pupil: PERRL Neck & C-Spine Common normals: full ROM General: normal visual inspection Cervical spine: cervical ROM abnormal, pain with cervical ROM and cervical spine tenderness Other: positive spurlings, decreased sensation right C5,6,7 strength 4/5 in RUE and 5/5 in LUE Chest Common normals: inspection of chest normal Respiratory Common normals: normal respiratory effort, no retractions and no use of accessory muscles Back & Pelvis Lumbar spine/lower back: ROM limited, pain with ROM and straight leg raise negative bilaterally; no lumbar spinal tenderness Sacroiliac joints: SI joint(s) abnormal Other: right sij positive angelo(patricks), gaenslens, thigh thrust, compression test strength 5/5 in BLE Neuro Common normals: oriented x3 Sensorium/orientation: alert Psych Common normals: mental status grossly normal, thought process normal, cooperative, affect normal, speech normal and activity/motor behavior normal Speech: normal speech Thought process: normal thought process Results Imaging cervical xray: Attestation: I have reviewed the pertinent imaging results. Radiologist's impression: AP, lateral, both oblique and odontoid views were obtained. There is osteopenia. There is straightening of the normal cervical curvature. No acute compression fractures are seen. There is slight anterolisthesis of C2 on C3 and 3 mm of anterolisthesis of C3 on C4. Mild disc space narrowing is present at C3-4, moderate at C4-5 and severe at C5-6 and C6-7. There is endplate sclerosis at C5-6. Endplate spurring is present throughout and there is also facet disease. There is potential moderate bony foraminal encroachment at C3-4 and mild to moderate at C4-5 and C5-6 on the left. On the right, there is moderate bony foraminal encroachment at C5-6. The atlantoaxial relationship is maintained. There is no prevertebral soft tissue swelling. Assessment and Plan Assessment and Plan (1) Lumbar stenosis with neurogenic claudication: Assessment and Plan: 11/20/24 right L4-5 L5-S1 TFESI (2) Sacroiliitis: Assessment and Plan: The patient has had over 3 months of moderate to severe low back pain with functional impairment and inadequate response to conservative care including NSAIDS (unless there are contraindication such as concurrent blood thinners), multiple oral or topical pain medications, and home exercise program/physical therapy.� Patient has completed >6 weeks of guided home exercise program and/or formal physical therapy program without relief of their symptoms.� We discussed the risks and benefits of the procedure with the patient, and we are NOT planning on using sedation as outlined in the guidelines from Medicare unless there is a documented reason that sedation would be strongly recommended.���The procedure will be completed with fluoroscopic guidance.� (3) Cervical radiculopathy: (4) Failed back syndrome: (5) Status post lumbar spinal fusion: (6) Lumbar radiculopathy: (7) Chronic prescription opiate use: (8) Muscle spasm: (9) Lumbar spondylosis: Plan cervical xray reviewed, proceed with cervical CT without contrast in consideration of interventional therapy vs NS consultation proceed with right SIJ injection under fluoroscopic continues to consider scs trial, declining at this time continue HEP as tolerated continue current medications, risks vs benefits reviewed f/u 2 weeks after injection
== END 2024-11-30 08:20 | disposition home or self-care (01) ==
LOC: PM 08:19
PROVIDERS: PCP Nurse Practitioner Family; Visit Provider Nurse Practitioner
DX: M48.062 Spinal stenosis, lumbar region with neurogenic claudication (principal); M46.1 Sacroiliitis, not elsewhere classified; M54.12 Radiculopathy, cervical region; M96.1 Postlaminectomy syndrome, not elsewhere classified; M43.26 Fusion of spine, lumbar region; M54.16 Radiculopathy, lumbar region; Z79.891 Long term (current) use of opiate analgesic; M62.838 Other muscle spasm; M47.816 Spondylosis without myelopathy or radiculopathy, lumbar region
CPT/HCPCS: G0463

== ENCOUNTER 2024-12-07 07:54 | Outpatient (OUT) | payer MEDICARE, SELFPAY ==
--- NOTE | 2024-12-07 07:56 | CT_ITS ---
The [address] [address] Patient Name: SAUL GUTIÉRREZ MRN: [id number] date: 1945 Sex: F Assigned Patient Location: CT Current Patient Location: CT Accession/Order Number: [id number] Exam Date: 12/07/2024 11:04 Report Date: 12/07/2024 11:12 At the request of: KURTIS ESPOSITO NP Procedure: CT cervical spine wo con CT CERVICAL SPINE WITHOUT CONTRAST WITH 3D RECONSTRUCTIONS: CLINICAL HISTORY: Neck pain radiating to both arms, greater on the right. No injury. COMPARISON: Plain films 11/13/2024 TECHNIQUE: Spiral axial unenhanced images were obtained through the cervical spine. Sagittal, coronal and 3D volume-rendered reconstructions were also reviewed. This CT exam was performed using one or more following dose reduction techniques: Automated exposure control, adjustment of the mA and/or kV according to patient size, or use of iterative reconstruction technique. FINDINGS: There is straightening of the normal cervical lordosis. No acute compression fractures are identified. There is slight anterolisthesis of C3 on C4 and approximately 3 to 4 mm of retrolisthesis of C5 on C6. There is mild disc space narrowing at C3-4 and moderate narrowing from C4-5 through C6-7. There is endplate sclerosis at C5-6. Endplate spurring and mild facet disease are noted. At C3-4, there is broad-based central/right parasagittal disc bulging in addition to the endplate spurring that extends through the left neural foramen. There is mild thecal sac effacement. Mild to moderate right and moderate to severe left foraminal encroachment is noted. At C4-5, mild disco-osteophytic bulging slightly effaces the thecal sac. There is moderate narrowing of both neural foramen. At C5-6, the disco-osteophytic bulging results in mild to moderate thecal sac effacement. There is moderate to severe foraminal encroachment, right side greater than left. At C6-7 mild thecal sac effacement is seen secondary to disco-osteophytic bulging. There is also mild to moderate left and mild right foraminal impingement. The atlantoaxial relationship is maintained. No prevertebral soft tissue swelling is seen. The upper imaged lungs show no contributory findings. CT/CT cervical spine wo con IMPRESSION: LOSS OF NORMAL CERVICAL LORDOSIS. MULTILEVEL DISCOVERTEBRAL DEGENERATIVE CHANGES WITH ASSOCIATED STENOSIS, DESCRIBED. Impression dictated by: Adelaida Davis M.D. 12/07/2024 11:12 AM Dictation Location: [place] [address] Electronically authenticated by: [id number] Y Date: 12/07/2024 11:12
--- OUTSIDE RECORDS SUMMARY | 2024-12-07 08:04 | XMS_ITS | CCD ---
Author Organization 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 Name Role Phone JOHNSON ., DR JAYLON Ruelas Admitting Unavailable ORNELAS ., DR JAYLON Ruelas Attending Unavailable LUÍS, HEAVEN Primary Care Unavailable ORNELAS ., DR JAYLON Ruelas Consulting Unavailable MICHELINE MOLINA Consulting Unavailable ORNELAS ., DR JAYLON Ruelas Admitting Unavailable ORNELAS ., DR JAYLON Ruelas Attending Unavailable [facility] Primary Care Unavailable RODRIGUEZ ., SABRINA Consulting Unavailable ORNELAS ., DR JAYLON Ruelas Admitting Unavailable ORNELAS ., DR JAYLON Ruelas Attending Unavailable [facility] Primary Care Unavailable RODRIGUEZ ., SABRINA Consulting Unavailable [facility] Primary Care Unavailable LAKSHMIPATHY ., NARENDRANATH Admitting Charity vailable LAKSHMIPATHY ., NARENDRANATH Attending Charity vailable LAKSHMIPATHY ., NARENDRANATH Consulting Charity vailable LAKSHMIPATHY ., NARENDRANATH Admitting Charity vailable LAKSHMIPATHY ., NARENDRANATH Attending Charity vailable [facility] Primary Care Unavailable LUÍS, HEAVEN Admitting Unavailable HEAVEN STALEY Attending Unavailable [facility] Primary Care Unavailable DR OSWALDO [...] ROBERT Referring Unavailable NAVID, ROBERT Referring Unavailable NVAID, ROBERT Referring Unavailable NAVID, ROBERT Referring Unavailable DANIEL, DANII Attending Unavailable DARRIUS, TOYA Attending Unavailable NAVID, ROEBRT Referring Unavailable NAVID, ROBERT Attending Unavailable NAVID, [...] sources) Codeine; Translations: [CODEINE] Drug Allergy 06-06-[address] [facility] Repository (5 sources) Codeine [facility] Lisinopril; Translations: [LISINOPRIL] Drug All[facility] 10-19-2014 [facility] pregabalin; Translations: [PREGABALIN] Drug Allergy 12-01-2023 [facility] Medications Current Medications Medication Drug Class(es) [...] 30 tablet 1 06/08/2023 Active lactobacillus acidophilus [id number] unt oral capsule (5 sources) take 1 [...] Indications: Chronic systolic CHF (congestive heart failure) ([facility]) Take 1 tablet (25 mg total) [...] disease (2 sources) Atherosclerotic heart disease of [place] coronary artery without angina pectoris; Translations: [Atherosclerotic heart disease of [place] coronary artery without angina pectoris] Onset: 08-18-2024 [...] 10-11-2020 Episodic Other aftercare (1 source) Other penitentiary (current) drug therapy; Translations: [OTH FDC CURRENT DRUG THERAPY] Onset: 05-19-2022 Episodic Other [...] width [Ratio] by Automated count High 11.0-15.0 [facility] Estimated glomerular filtrat ion rate (GFR) non- Americanon 10-09-2024 GFR/1.73 sq M.predicted among non-blacks MDRD (S/P/Bld) [Vol rate/Area] Estimated glomerular filtration rate (GFR) non- Low >=60 mL/min/1.73m 2 [facility] Hematocrit Auto (Bld) [Volum e fraction]on 10-09-2024 Hematocrit (Bld) [Volume fraction] Hematocrit [Volume Fraction] of Blood by Automated count Low 36.0-48.0 [facility] Hemoglobin [Mass/volume] in Bloodon 10-09-2024 Hemoglobin (Bld) [Mass/Vol] Hemoglobin [Mass/volume] in Blood Low 12.0-16.0 [facility] Iron binding capacity [Mass/ volume] in Serum or Plasmaon 10-09-2024 Iron binding capacity [Mass/Vol] Iron binding capacity [Mass/volume] in Serum or Plasma 250.0-450.0 [facility] Iron saturation [Mass Fracti on] in Serum or Plasmaon 10-09-2024 Iron saturation [Mass fraction] Iron saturation [Mass Fraction] in Serum or Plasma [facility] - Chemistry and C hemistry - challengeon 10-09-2024 Albumin [Mass/Vol] 3.2 g/dL Low 3.4-5.0 [facility] Calcium [Mass/Vol] 8.9 mg/dL 8.5-10.1 [facility] Chloride [Moles/Vol] 105 mmol/L 98-107 [facility] CO2 [Moles/Vol] 28.4 mmol/L 21.0-32.0 [facility] Creatinine [Mass/Vol] 1.33 mg/dL High 0.55-1.02 [facility] Ferritin [Mass/Vol] 13.0 ng/mL 8.0-252.0 [facility] GFR/1.73 sq M.predicted MDRD (S/P/Bld) [Vol rate/Area] 47 mL/min/{1.73_m2} Low >=60 mL/min/1.73m 2 [facility] Glucose [Mass/Vol] 85 mg/dL 74-106 [facility] Iron [Mass/Vol] 33.0 ug/dL Low 50.0-170.0 [facility] Magnesium [Mass/Vol] 2.1 mg/dL 1.8-2.4 [facility] Potassium [Moles/Vol] 4.6 mmol/L 3.5-5.1 [facility] Sodium [Moles/Vol] 139 mmol/L 136-145 [facility] Urate [Mass/Vol] 6.1 mg/dL High 2.6-6.0 [facility] Urea nitrogen [Mass/Vol] 30.0 mg/dL High 7.0-18.0 [facility] Urea nitrogen/Creatinine [Mass ratio] 22.6 mg/mg [facility] - Urinalysison Protein (U) [Mass/Vol] 15.7 mg/dL High <=11.9 [facility] Leukocytes [#/volume] correc halie for nucleated erythrocytes in Blood by Automated counon 10-09-2024 WBC corrected for nucl RBC Auto (Bld) [#/Vol] Leukocytes [#/volume] corrected for nucleated erythrocytes in Blood by Automated coun 4.0-11.0 [facility] MCH Auto (RBC) [Entitic mass ]on 10-09-2024 MCH (RBC) [Entitic mass] MCH [Entitic mass] by Automated count 26.7-34.0 [facility] MCHC Auto (RBC) [Mass/Vol]on 10-09-2024 MCHC (RBC) [Mass/Vol] MCHC [Mass/volume] by Automated count 29.9-35.2 [facility] MCV Auto (RBC) [Entitic vol] on 10-09-2024 MCV (RBC) [Entitic vol] MCV [Entitic volume] by Automated count 81.0-99.0 [facility] No Panel Informationon 10-09 25-Hydroxy Vitamin D Total 46.5 ng/mL [facility] Comment on above: <20 ng/mL Vit D defi cient20-<30 ng/mL Vit D [id number] ng/mL Vit D sufficient>100 ng/mL Potential Toxicity Parathyroid Hormone (Intact) 76 pg/mL Abnormal 15-65 [facility] Comment on above: Performed at: [address] [id number] Director: Ra Gonzalez PhD, Phone: [phone] Phosphorus Level 3.9 mg/dL 2.6-4.7 [facility] Urine Random Creatinine 82.53 mg/dL 20.00-300.00 [facility] Platelet mean volume Auto (B ld) [Entitic vol]on 10-09-2024 Platelet mean volume (Bld) [Entitic vol] Platelet mean volume [Entitic volume] in Blood by Automated count 9.5-13.5 [facility] Platelets Auto (Bld) [#/Vol] on 10-09-2024 Platelets (Bld) [#/Vol] Platelets [#/volume] in Blood by Automated count 150-450 [facility] RBC Auto (Bld) [#/Vol]on RBC (Bld) [#/Vol] Erythrocytes [#/volume] in Blood by Automated count Low 4.20-5.40 [facility] Serum or plasma anion gap de terminationon 10-09-2024 Anion gap [Moles/Vol] Serum or plasma an ion gap determination [facility] Urine protein/creatinine rat ioon 10-09-2024 Protein/Creatinine (U) [Ratio] Urine protein/creatinine ratio [facility] Erythrocyte distribution wid th Auto (RBC) [Ratio]on 08-18-2024 Erythrocyte distribution width (RBC) [Ratio] Erythrocyte distribution width [Ratio] by Automated count High 11.0-15.0 [facility] Estimated glomerular filtrat ion rate (GFR) non- Americanon 08-18-2024 GFR/1.73 sq M.predicted among non-blacks MDRD (S/P/Bld) [Vol rate/Area] Estimated glomerular filtration rate (GFR) non- Low >=60 mL/min/1.73m 2 [facility] Hematocrit Auto (Bld) [Volum e fraction]on 08-18-2024 Hematocrit (Bld) [Volume fraction] Hematocrit [Volume Fraction] of Blood by Automated count Low 36.0-48.0 [facility] Hemoglobin [Mass/volume] in Bloodon 08-18-2024 Hemoglobin (Bld) [Mass/Vol] Hemoglobin [Mass/volume] in Blood Low 12.0-16.0 [facility] Iron binding capacity [Mass/ volume] in Serum or Plasmaon 08-18-2024 Iron binding capacity [Mass/Vol] Iron binding capacity [Mass/volume] in Serum or Plasma 250.0-450.0 [facility] Iron saturation [Mass Fracti on] in Serum or Plasmaon 08-18-2024 Iron saturation [Mass fraction] Iron saturation [Mass Fraction] in Serum or Plasma [facility] - Chemistry and C hemistry - challengeon 08-18-2024 Albumin [Mass/Vol] 3.4 g/dL 3.4-5.0 [facility] Calcium [Mass/Vol] 9.0 mg/dL 8.5-10.1 [facility] Chloride [Moles/Vol] 108 mmol/L High 98-107 [facility] CO2 [Moles/Vol] 26.5 mmol/L 21.0-32.0 [facility] Creatinine [Mass/Vol] 1.36 mg/dL High 0.55-1.02 [facility] Ferritin [Mass/Vol] 17.0 ng/mL 8.0-252.0 [facility] GFR/1.73 sq M.predicted MDRD (S/P/Bld) [Vol rate/Area] 45 mL/min/{1.73_m2} Low >=60 mL/min/1.73m 2 [facility] Glucose [Mass/Vol] 96 mg/dL 74-106 [facility] Iron [Mass/Vol] 71.0 ug/dL 50.0-170.0 [facility] Magnesium [Mass/Vol] 2.4 mg/dL 1.8-2.4 [facility] Potassium [Moles/Vol] 4.7 mmol/L 3.5-5.1 [facility] Sodium [Moles/Vol] 140 mmol/L 136-145 [facility] Urate [Mass/Vol] 6.5 mg/dL High 2.6-6.0 [facility] Urea nitrogen [Mass/Vol] 36.0 mg/dL High 7.0-18.0 [facility] Urea nitrogen/Creatinine [Mass ratio] 26.5 mg/mg [facility] Leukocytes [#/volume] correc halie for nucleated erythrocytes in Blood by Automated counon 08-18-2024 WBC corrected for nucl RBC Auto (Bld) [#/Vol] Leukocytes [#/volume] corrected for nucleated erythrocytes in Blood by Automated coun 4.0-11.0 [facility] MCH Auto (RBC) [Entitic mass ]on 08-18-2024 MCH (RBC) [Entitic mass] MCH [Entitic mass] by Automated count 26.7-34.0 [facility] MCHC Auto (RBC) [Mass/Vol]on 08-18-2024 MCHC (RBC) [Mass/Vol] MCHC [Mass/volume] by Automated count 29.9-35.2 [facility] MCV Auto (RBC) [Entitic vol] on 08-18-2024 MCV (RBC) [Entitic vol] MCV [Entitic volume] by Automated count 81.0-99.0 [facility] No Panel Informationon 08-18 25-Hydroxy Vitamin D Total 45.3 ng/mL [facility] Comment on above: <20 ng/mL Vit D defi cient20-<30 ng/mL Vit D -964 ng/mL Vit D sufficient>100 ng/mL Potential Toxicity Parathyroid Hormone (Intact) 106 pg/mL Abnormal 15-65 [facility] Comment on above: Performed at: [facility] [address] [id number] Director: Ra Gonzalez PhD, Phone: [phone] Phosphorus Level 3.7 mg/dL 2.6-4.7 [facility] Urine Random Creatinine 36.44 mg/dL 20.00-300.00 [facility] Urine Random Total Protein <6.0 mg/dL <=11.9 [facility] Office Visiton 08-18-2024 Follow-up visit [id number] Radha Gutiérrez 1945 F Date Provider Department Center 08/18/2024 [id number] FREEDMAN MAGNUS [place] Family History Problem Relation Age of Onset Heart failure Father Family Status - Relation Status Age at Father Level of Service:37629 [place] OFFICE/OUTPATIENT ESTABLISHED LOW MDM [address] [facility] Platelet mean volume Auto (B ld) [Entitic vol]on 08-18-2024 Platelet mean volume (Bld) [Entitic vol] Platelet mean volume [Entitic volume] in Blood by Automated count 9.5-13.5 [facility] Platelets Auto (Bld) [#/Vol] on 08-18-2024 Platelets (Bld) [#/Vol] Platelets [#/volume] in Blood by Automated count 150-450 [facility] RBC Auto (Bld) [#/Vol]on RBC (Bld) [#/Vol] Erythrocytes [#/volume] in Blood by Automated count Low 4.20-5.40 [facility] Serum or plasma anion gap de terminationon 08-18-2024 Anion gap [Moles/Vol] Serum or plasma an ion gap determination [facility] Office [place] 03-21-2024 Follow-up visit [id number] Radha Gutiérrez 1945 F Date Provider Department [place] 03/21/2024 ROBERT GEE Family History Problem Relation Age of Onset Heart failure Father Family Status - Relation Status Age at Father Level of Service:33146 [place] OFFICE/OUTPATIENT ESTABLISHED LOW MDM 20 MIN [facility] 36on 02-11-2024 36 Tried to contact patient and she has no VM set up. Will try again on Wednesday morning. [facility] Documentationon 02-11-2024 Documentation [id number] Radha Gutiérrez 1945 Provider Department [place] 02/11/2024 TOYA VALENCIA Viky Family History Problem Relation Age of Onset Heart failure Father Family Status - Relation Status Age at Father [facility] 36on 02-08-2024 36 Patient had her device [...] Dr. Madden until 03/21. Please advise. Thanks. [facility] Telephoneon 02-08-2024 Telephone [id number] Radha Gutiérrez 1945 F Date Provider Department Center 02/08/2024 [id number], CARIDAD BH CARD [facility] Family History Problem Relation Age of Onset Heart failure Father Family Status - Relation Status Age at Father [facility] Office [place] 12-01-2023 Follow-up visit [id number] Radha Gutiérrez 1945 F Date Provider Department Center 12/01/2023 JonnaTOYA [facility] Family History Problem Relation Age of Onset Heart failure Father Family Status - Relation Status Age at Father Level of Service:95680 [place] POSTOP FOLLOW UP VISIT RELATED TO ORIGINAL PX [facility] HPon 11-01-2023 [facility] Electrophysiology Consult Note Reason for [...] GI bleed. [facility] [...] on file Intimate Partner Violence: Unknown (07/23/2023) [place] Safety & Environment Fear of Current or [...] mg tab (more content not included)... Normal [facility] NURSNOTEon 11-01-2023 NURSNOTE RN educated pt on d/ c instructions. RN encouraged pt to voice any questions or concerns. Pt verbalizes no questions or concerns at this time. Normal [facility] INSULINon 09-23-2022 Insulin 7.9 uIU/mL Normal 2.6-24.9 [facility] Comment on above: Performed By: #### I NSULIN ####[facility] [address] [place], [place] [address]Dr. Ravin Diro CBC AUTO DIFFon 09-22-2022 BASO # 0.0 103/ul Normal 0.0-0.1 [facility] Comment on above: Performed By: #### C BC ####[facility] [address] [place] [address]DrViky Dior Basophils/100 WBC (Bld) 0.4 % Normal 0.2-2.0 [facility] Comment on above: Performed By: #### C BC ####[facility] [address] [place] [address]Dr. Ravin Dior EO # 0.6 103/ul Normal 0.0-0.7 [facility] Comment on above: Performed By: #### C BC ####[facility] [address] [place], [place] [address]Dr. Ravin Dior Eosinophils/100 WBC (Bld) 6.6 % Normal 0.9-7.0 [facility] Comment on above: Performed By: #### C BC ####[facility] [address] [place], [place] [address]Dr. Ravin Dior Erythrocyte distribution width (RBC) [Ratio] 16.2 % Critically high 11.0-15.0 [facility] Comment on above: Performed By: #### C BC ####[facility] [address] [place], [place] [address]Dr. Ravin Dior Hematocrit (Bld) [Volume fraction] 43.3 % Normal 36.0-48.0 [facility] Comment on above: Performed By: #### C BC ####[facility] [address] [place], [place] [address]Dr. Ravin Dior Hemoglobin (Bld) [Mass/Vol] 13.4 g/dL Normal 12.0-16.0 [facility] Comment on above: Performed By: #### C BC ####[facility] [address] [place], [place] [address]Dr. Ravin Dior IG # 0.05 10e3/ul Critically high 0.00-0.03 [facility] Comment on above: Performed By: #### C BC ####[facility] [address] [place], [place] [address]Dr. Ravin Dior IG % 0.5 % Normal 0.0-0.5 [facility] Comment on above: Performed By: #### C BC ####[facility] [address] [place], [place] [id number]. Ravin Dior LYMPH # 2.1 103/ul Normal 1.2-3.8 [facility] Comment on above: Performed By: #### C BC ####[facility] [address] [place] [address]Dr. Ravin Dior Lymphocytes/100 WBC (Bld) 23.1 % Normal 20.5-60.0 [facility] Comment on above: Performed By: #### C BC ####[facility] [address] [place] [address]Dr. Ravin Dior MANUAL DIFF REQ NO Normal [facility] Comment on above: Performed By: #### C BC ####[facility] [address] [place] [address]Dr. Ravin Dior MCH (RBC) [Entitic mass] 29.5 pg Normal 26.7-34.0 [facility] Comment on above: Performed By: #### C BC ####[facility] [address] [place], [place] [address]Dr. Novalilliana Dior MCHC (RBC) [Mass/Vol] 30.9 g/dL Normal 29.9-35.2 [facility] Comment on above: Performed By: #### C BC ####[facility] [address] [place], [place] [address]Dr. Ravin Dior MCV (RBC) [Entitic vol] 95.4 fL Normal 81.0-99.0 [facility] Comment on above: Performed By: #### C BC ####[facility] [address] [place] [address]Dr. Ravin Dior MONO # 0.5 103/ul Normal 0.3-0.8 [facility] Comment on above: Performed By: #### C BC ####[facility] [address] [place], [place] [address]Dr. Ravin Dior Monocytes/100 WBC (Bld) 5.8 % Normal 1.7-12.0 [facility] Comment on above: Performed By: #### C BC ####[facility] [address] [place], [place] [address]Dr. Novalilliana Ovi NEUT # 5.8 103/ul Normal 1.4-6.5 [facility] Comment on above: Performed By: #### C BC ####[facility] [address] [place] [address]Dr. Ravin Ovi Neutrophils/100 WBC (Bld) 63.6 % Normal 43.0-75.0 [facility] Comment on above: Performed By: #### C BC ####[facility] [address] [place] [address]Dr. Novalilliana Ovi Platelet mean volume (Bld) [Entitic vol] 10.7 fL Normal 9.5-13.5 [facility] Comment on above: Performed By: #### C BC ####[facility] [address] [place] [address]DrViky Dior PLT 223 103/ul Normal 150-450 [facility] Comment on above: Performed By: #### C BC ####[facility] [address] [place] [address]Dr. Ravin Dior RBC 4.54 106/ul Normal 4.20-5.40 [facility] Comment on above: Performed By: #### C BC ####[facility] [address] [place] [address]DrViky Dior WBC 9.2 103/ul Normal 4.0-11.0 [facility] Comment on above: Performed By: #### C BC ####[facility] [address] [place] [address]DrViky Dior FREE THYROXINE INDEX T7on FTI 2.44 Normal 1.30-4.50 [facility] Comment on above: Performed By: #### C MP, T7, TSH, LIPID #### [facility] [address] [place] [address] [address] Ravin Dior T3U 33.0 % Normal 30.0-39.0 [facility] Comment on above: Performed By: #### C MP, T7, TSH, LIPID #### [facility] [address] [place] [address] [address] Ravin Dior T4 [Mass/Vol] 7.40 ug/dL Normal 4.80-13.90 [facility] Comment on above: Performed By: #### C MP, T7, TSH, LIPID #### [facility] [address] [place], [place] [address] Dr. Ravin Dior GLYCOHEMOGLOBIN A1Con 2022 ADA RECOMMENDATION SEE BELOW Normal [facility] Comment on above: Result Comment: ADA RECOMMENDED LIMIT 4.0 - 6.0 ADA THERAPEUTIC TARGET < 7.0 ACTION SUGGESTED > 7.0 Performed By: #### A 1C ####[facility] [address] [place] [address]DrViky Dior Glucose [Mass/Vol] 105 mg/dL Normal [facility] Comment on above: Performed By: #### A 1C ####[facility] [address] [place] [address]DrViky Dior HbA1c (Bld) [Mass fraction] 5.3 % Normal 4.5-6.2 [facility] Comment on above: Performed By: #### A 1C ####[facility] [address] [place] [id number] Dior IRONon 09-22-2022 Iron [Mass/Vol] 81.0 ug/dL Normal 50.0-170.0 [facility] Comment on above: Performed By: #### I SEAMUS ####[facility] [address] [place] [address]DrViky Dior LIPID PROFILEon 09-22-2022 CHOL-HDL RATIO NORM SEE BELOW Normal [facility] Comment on above: Result Comment: 3.3 - 4.4 LOW RISK 4.4 - 7.1 AVERAGE RISK 7.1 - 11.0 MODERATE RISK >11.0 HIGH RISK Performed By: #### C MP, T7, TSH, LIPID ####[facility] [address] [place] [id number] Dior Cholesterol [Mass/Vol] 159 mg/dL Normal <=200 [facility] Comment on above: Performed By: #### C MP, T7, TSH, LIPID ####[facility] [address] [place], [place] [address]Kl. Ravin Dior Cholesterol in HDL [Mass/Vol] 47 mg/dL Normal 40-60 [facility] Comment on above: Performed By: #### C MP, T7, TSH, LIPID ####[facility] [address] [place] [address]Dr. Ravin Dior Cholesterol in LDL [Mass/Vol] 96.4 mg/dL Normal [facility] Comment on above: Performed By: #### C MP, T7, TSH, LIPID ####[facility] [address] [place] [address]Dr. Ravin Dior Cholesterol.total/Cho lesterol in HDL [Mass ratio] 3.4 {ratio} Normal [facility] Comment on above: Performed By: #### C MP, T7, TSH, LIPID ####[facility] [address] [place] [address]Dr. Ravin Dior HDL NORMAL > or = 60 mg/dl - LO W CARDIOVASCULAR RISK <40 mg/dl - HIGH CARDIOVASCULAR RISK Normal [facility] Comment on above: Performed By: #### C MP, T7, TSH, LIPID ####[facility] [address] [place] [address]Dr. Ravin Dior LDL CALC NORMAL SEE BELOW Normal [facility] Comment on above: Result Comment: <100 mg/dl OPTIMAL 100 - 129 mg/dl NEAR OR ABOVE OPTIMAL 130 - 159 mg/dl BORDERLINE HIGH 160 - 189 mg/dl HIGH >190 mg/dl VERY HIGH Performed By: #### C MP, T7, TSH, LIPID ####[facility] [address] [place] [address]Dr. Ravin Dior Triglyceride [Mass/Vol] 78 mg/dL Normal <=150 [facility] Comment on above: Performed By: #### C MP, T7, TSH, LIPID ####[facility] [address] [place] [address]Dr. Ravin Dior VLDL CALC 15.6 mg/dL Normal [facility] Comment on above: Performed By: #### C MP, T7, TSH, LIPID ####[facility] [address] [place], [place] [address]Dr. Ravin Dior MG MAMM SCREEN 3D NIKOS CADon 09-22-2022 MG MAMM SCREEN 3D NIKOS CAD Patient: RADHA GUTIÉRREZ Exam Date: 09/22/2022 : 1945 Gender:F Ordering : HEAVEN STALEY [facility] Admission #: [id number] Family : Order #: [id number] CLICK HERE TO VIEW EXAM RADIOLOGY REPORT [...] Treatments None Family Cancers None LOCATION: [facility] BREAST COMPOSITION: Almost entirely fatty. FINDINGS: [...] Valenzuela M.D. on 09/22/2022 at 17:02 Normal [facility] PROF 14(COMP METB)on 023 Albumin [Mass/Vol] 3.3 g/dL Critically low 3.4-5.0 [facility] Comment on above: Performed By: #### C MP, T7, TSH, LIPID #### [facility] [address] [place] [address] [address] Ravin Dior Albumin/Globulin [Mass ratio] 0.7 {ratio} Normal [facility] Comment on above: Performed By: #### C MP, T7, TSH, LIPID #### [facility] [address] [place] [address] [address] Ravin Dior ALP [Catalytic activity/Vol] 207 U/L Critically high 46-116 [facility] Comment on above: Performed By: #### C MP, T7, TSH, LIPID #### [facility] [address] [place] [address] [address] Ravin Dior ALT [Catalytic activity/Vol] 47 U/L Normal 14-59 [facility] Comment on above: Performed By: #### C MP, T7, TSH, LIPID #### [facility] [address] [place] [address] Dr. Ravin Dior Anion gap [Moles/Vol] 11.5 mmol/L Normal [facility] Comment on above: Performed By: #### C MP, T7, TSH, LIPID #### [facility] [address] [place] [address] Dr. Ravin Dior AST [Catalytic activity/Vol] 35 U/L Normal 15-37 [facility] Comment on above: Performed By: #### C MP, T7, TSH, LIPID #### [facility] [address] [place] [address] Dr. Ravin Dior Bilirubin [Mass/Vol] 0.6 mg/dL Normal 0.2-1.0 [facility] Comment on above: Performed By: #### C MP, T7, TSH, LIPID #### [facility] [address] [place] [address] Dr. Ravin Dior Calcium [Mass/Vol] 9.2 mg/dL Normal 8.5-10.1 [facility] Comment on above: Performed By: #### C MP, T7, TSH, LIPID #### [facility] [address] [place] [address] Dr. Ravin Dior Chloride [Moles/Vol] 109 mmol/L Critically high 98-107 [facility] Comment on above: Performed By: #### C MP, T7, TSH, LIPID #### [facility] [address] [address] [address] Ravin Dior CO2 [Moles/Vol] 27.7 mmol/L Normal 21.0-32.0 [facility] Comment on above: Performed By: #### C MP, T7, TSH, LIPID #### [facility] [address] [address] [address] Ravin Dior Creatinine [Mass/Vol] 0.94 mg/dL Normal 0.55-1.02 [facility] Comment on above: Performed By: #### C MP, T7, TSH, LIPID #### [facility] [address] [place] [address] Dr. Ravin Dior EGFR-AF EGYPTIAN >60 Normal >=60 [facility] Comment on above: Performed By: #### C MP, T7, TSH, LIPID #### [facility] [address] [place] [address] Dr. Ravin Dior EGFR-NON AF EGYPTIAN 58 mL/min/1.73m2 Critically low >=60 [facility] Comment on above: Performed By: #### C MP, T7, TSH, LIPID #### [facility] [address] [place] [address] Dr. Ravin Dior Globulin (S) [Mass/Vol] 4.7 g/dL Normal [facility] Comment on above: Performed By: #### C MP, T7, TSH, LIPID #### [facility] [address] [place] [address] Dr. Ravin Dior Glucose [Mass/Vol] 95 mg/dL Normal 74-106 [facility] Comment on above: Performed By: #### C MP, T7, TSH, LIPID #### [facility] [address] [place] [address] Dr. Ravin Dior Potassium [Moles/Vol] 4.2 mmol/L Normal 3.5-5.1 [facility] Comment on above: Performed By: #### C MP, T7, TSH, LIPID #### [facility] [address] [place] [address] Dr. Ravin Dior Protein [Mass/Vol] 8.0 g/dL Normal 6.4-8.2 [facility] Comment on above: Performed By: #### C MP, T7, TSH, LIPID #### [facility] [address] [place] [address] Dr. Ravin Dior Sodium [Moles/Vol] 144 mmol/L Normal 136-145 [facility] Comment on above: Performed By: #### C MP, T7, TSH, LIPID #### [facility] [address] [address] [address] Ravin Dior Urea nitrogen [Mass/Vol] 21.0 mg/dL Critically high 7.0-18.0 [facility] Comment on above: Performed By: #### C MP, T7, TSH, LIPID #### [facility] [address] [address] [address] Ravin Dior Urea nitrogen/Creatinine [Mass ratio] 22.3 mg/mg Normal [facility] Comment on above: Performed By: #### C MP, T7, TSH, LIPID #### [facility] [address] [address] [address] Ravin Dior TSHon 09-22-2022 TSH 2.085 uIU/mL Normal 0.358-3.740 [facility] Comment on above: Performed By: #### C MP, T7, TSH, LIPID #### [facility] [address] [address] ABD/PELVIS WO CONon [...] was used, including Automated Exposure Control. 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 Normal [facility] CBC AUTO DIFFon 05-17-2022 BASO # 0.0 103/ul Normal 0.0-0.1 [facility] Comment on above: Performed By: #### C BC ####[facility] [address] [place], [place] [address]JlViky Dior Basophils/100 WBC (Bld) 0.2 % Normal 0.2-2.0 [facility] Comment on above: Performed By: #### C BC ####[facility] [address] [place], [place] [address]MuViky Dior EO # 0.1 103/ul Normal 0.0-0.7 [facility] Comment on above: Performed By: #### C BC ####[facility] [address] [id number]. Ravin Dior Eosinophils/100 WBC (Bld) 1.4 % Normal 0.9-7.0 [facility] Comment on above: Performed By: #### C BC ####[facility] [address] [address]Dr. Ravin Dior Erythrocyte distribution width (RBC) [Ratio] 13.7 % Normal 11.0-15.0 [facility] Comment on above: Performed By: #### C BC ####[facility] [address] [place], [place] [address]Dr. Ravin Dior Hematocrit (Bld) [Volume fraction] 44.4 % Normal 36.0-48.0 [facility] Comment on above: Performed By: #### C BC ####[facility] [address] [place], [place] [address]Dr. Ravin Dior Hemoglobin (Bld) [Mass/Vol] 14.7 g/dL Normal 12.0-16.0 [facility] Comment on above: Performed By: #### C BC ####[facility] [address] [place], [place] [address]Dr. Ravin Dior IG # 0.05 10e3/ul Critically high 0.00-0.03 [facility] Comment on above: Performed By: #### C BC ####[facility] [address] [place], [place] [address]Dr. Ravin Dior IG % 0.5 % Normal 0.0-0.5 [facility] Comment on above: Performed By: #### C BC ####[facility] [address] [place], [place] [address]Dr. Ravin Dior LYMPH # 1.7 103/ul Normal 1.2-3.8 [facility] Comment on above: Performed By: #### C BC ####[facility] [address] [place], [place] [address]Dr. Ravin Dior Lymphocytes/100 WBC (Bld) 17.1 % Critically low 20.5-60.0 [facility] Comment on above: Performed By: #### C BC ####[facility] [address] [address]Dr. Ravin Dior MANUAL DIFF REQ NO Normal [facility] Comment on above: Performed By: #### C BC ####[facility] [address] [id number]. Ravin Dior MCH (RBC) [Entitic mass] 30.7 pg Normal 26.7-34.0 [facility] Comment on above: Performed By: #### C BC ####[facility] [address] [address]Dr. Ravin Dior MCHC (RBC) [Mass/Vol] 33.1 g/dL Normal 29.9-35.2 [facility] Comment on above: Performed By: #### C BC ####[facility] [address] [place], [place] [address]Dr. Ravin Dior MCV (RBC) [Entitic vol] 92.7 fL Normal 81.0-99.0 [facility] Comment on above: Performed By: #### C BC ####[facility] [address] [place], [place] [address]Dr. Ravin Dior MONO # 0.6 103/ul Normal 0.3-0.8 [facility] Comment on above: Performed By: #### C BC ####[facility] [address] [address]Dr. Ravin Dior Monocytes/100 WBC (Bld) 5.7 % Normal 1.7-12.0 [facility] Comment on above: Performed By: #### C BC ####[facility] [address] [place], [place] [address]DrViky Dior NEUT # 7.7 103/ul Critically high 1.4-6.5 [facility] Comment on above: Performed By: #### C BC ####[facility] [address] [address]Dr. Ravin Dior Neutrophils/100 WBC (Bld) 75.1 % Critically high 43.0-75.0 [facility] Comment on above: Performed By: #### C BC ####[facility] [address] [address]Dr. Ravin Dior Platelet mean volume (Bld) [Entitic vol] 10.4 fL Normal 9.5-13.5 [facility] Comment on above: Performed By: #### C BC ####[facility] [address] [address]Dr. Ravin Dior PLT 294 103/ul Normal 150-450 [facility] Comment on above: Performed By: #### C BC ####[facility] [address] [address]Dr. Ravin Dior RBC 4.79 106/ul Normal 4.20-5.40 [facility] Comment on above: Performed By: #### C BC ####[facility] [address] [address]Dr. Ravin Dior WBC 10.2 103/ul Normal 4.0-11.0 [facility] Comment on above: Performed By: #### C BC ####[facility] [address] [place], [place] [address]DrViky Dior ER URINE PROFILEon 2 Bilirubin Ql (U) Negative Normal NEGATIVE [facility] Comment on above: Performed By: #### DENY KAUFFMANRO #### [facility] [address] [place] [address] Dr. Ravin Dior Clarity (U) CLEAR Normal CLEAR [facility] Comment on above: Performed By: #### DENY KAUFFMANRO #### [facility] [address] [place] [address] Dr. Ravin Dior Color (U) LT. YELLOW Normal YELLOW [facility] Comment on above: Performed By: #### DENY KAUFFMANRO #### [facility] [address] [place] [address] Dr. Ravin PARKER A micrscopic examination will be performed if indicated. Normal [facility] Comment on above: Performed By: #### DENY KAUFFMANRO #### [facility] [address] [place] [address] Dr. Ravin Dior Glucose Ql (U) Negative Normal NEGATIVE [facility] Comment on above: Performed By: #### DENY KAUFFMANRO #### [facility] [address] [place] [address] Dr. Ravin Dior Hemoglobin Ql (U) Negative Normal NEGATIVE [facility] Comment on above: Performed By: #### DENY KAUFFMANRO #### [facility] [address] [place] [address] Dr. Ravin Dior Ketones Ql (U) TRACE Abnormal NEGATIVE [facility] Comment on above: Performed By: #### DENY KAUFFMANRO #### [facility] [address] [place] [address] Dr. Ravin Dior LEUKOCYTES SMALL Abnormal NEGATIVE [facility] Comment on above: Performed By: #### DENY KAUFFMANRO #### [facility] [address] [place] [address] Dr. Ravin Dior Nitrite Ql (U) Negative Normal NEGATIVE [facility] Comment on above: Performed By: #### DENY KAUFFMANRO #### [facility] [address] [place] [address] Dr. Ravin Dior pH (U) 6.0 [pH] Normal 5-9 [facility] Comment on above: Performed By: #### DENY KAUFFMANRO #### [facility] [address] [place] [address] Dr. Ravin Dior SPEC GRAVITY 1.010 Normal 1.005-<=1.025 [facility] Comment on above: Performed By: #### DENY KAUFFMANRO #### [facility] [address] [place] [address] Dr. Ravin Dior UA PROTEIN Negative Normal NEGATIVE/ TRACE [facility] Comment on above: Performed By: #### DENY KAUFFMANRO #### [facility] [address] [place] [address] Dr. Ravin Dior UR MICRO IND INDICATED Normal [facility] Comment on above: Performed By: #### E DENY SOUTHRO #### [facility] [address] [address] [address] Ravin Dior Urobilinogen Qn (U) 0.2 {Chandler'U}/dL Normal 0.2 - 1. 0 [facility] Comment on above: Performed By: #### DENY KAUFFMANRO #### [facility] [address] [address] [address] Ravin Dior LACTATE/LACTIC ACIDon 2021 Lactate [Moles/Vol] 1.3 mmol/L Normal 0.4-1.9 [facility] Comment on above: Performed By: #### L ACT ####[facility] [address] [address]Dr. Ravin Dior LIPASEon 05-17-2022 Lipase [Catalytic activity/Vol] 63.0 U/L Critically low 73.0-393.0 [facility] Comment on above: Performed By: #### C MP, LIPA #### [facility] [address] [address] [address] Ravin Dior PROF 14(COMP METB)on 022 Albumin [Mass/Vol] 3.4 g/dL Normal 3.4-5.0 [facility] Comment on above: Performed By: #### C MP, LIPA #### [facility] [address] [address] [address] Ravin Dior Albumin/Globulin [Mass ratio] 0.8 {ratio} Normal [facility] Comment on above: Performed By: #### C MP, LIPA #### [facility] [address] [address] [address] Ravin Dior ALP [Catalytic activity/Vol] 143 U/L Critically high 46-116 [facility] Comment on above: Performed By: #### C MP, LIPA #### [facility] [address] [address] [address] Ravin Dior ALT [Catalytic activity/Vol] 29 U/L Normal 14-59 [facility] Comment on above: Performed By: #### C MP, LIPA #### [facility] [address] [address] [address] Ravin Dior Anion gap [Moles/Vol] 7.6 mmol/L Normal [facility] Comment on above: Performed By: #### C MP, LIPA #### [facility] [address] [address] [address] Ravin Dior AST [Catalytic activity/Vol] 39 U/L Critically high 15-37 [facility] Comment on above: Performed By: #### C MP, LIPA #### [facility] [address] [address] [address] Ravin Dior Bilirubin [Mass/Vol] 0.7 mg/dL Normal 0.2-1.0 [facility] Comment on above: Performed By: #### C MP, LIPA #### [facility] [address] [place] [address] Dr. Ravin Dior Calcium [Mass/Vol] 9.1 mg/dL Normal 8.5-10.1 [facility] Comment on above: Performed By: #### C MP, LIPA #### [facility] [address] [address] [address] Ravin Dior Chloride [Moles/Vol] 102 mmol/L Normal 98-107 [facility] Comment on above: Performed By: #### C MP, LIPA #### [facility] [address] [address] [address] Ravin Dior CO2 [Moles/Vol] 31.1 mmol/L Normal 21.0-32.0 [facility] Comment on above: Performed By: #### C MP, LIPA #### [facility] [address] [address] [address] Ravin Dior Creatinine [Mass/Vol] 0.88 mg/dL Normal 0.55-1.02 [facility] Comment on above: Performed By: #### C MP, LIPA #### [facility] [address] [address] [address] Ravin Dior EGFR-AF EGYPTIAN >60 Normal >=60 [facility] Comment on above: Performed By: #### C MP, LIPA #### [facility] [address] [address] [address] Ravin Dior EGFR-NON AF EGYPTIAN >60 Normal >=60 [facility] Comment on above: Performed By: #### C MP, LIPA #### [facility] [address] [address] [address] Ravin Dior Globulin (S) [Mass/Vol] 4.5 g/dL Normal [facility] Comment on above: Performed By: #### C MP, LIPA #### [facility] [address] [address] [address] Ravin Dior Glucose [Mass/Vol] 100 mg/dL Normal 74-106 [facility] Comment on above: Performed By: #### C MP, LIPA #### [facility] [address] [address] [address] Ravin Dior Potassium [Moles/Vol] 3.7 mmol/L Normal 3.5-5.1 [facility] Comment on above: Performed By: #### C MP, LIPA #### [facility] [address] [address] [address] Ravin Dior Protein [Mass/Vol] 7.9 g/dL Normal 6.4-8.2 [facility] Comment on above: Performed By: #### C MP, LIPA #### [facility] [address] [address] [address] Ravin Dior Sodium [Moles/Vol] 137 mmol/L Normal 136-145 [facility] Comment on above: Performed By: #### C MP, LIPA #### [facility] [address] [address] [address] Ravin Dior Urea nitrogen [Mass/Vol] 12.0 mg/dL Normal 7.0-18.0 [facility] Comment on above: Performed By: #### C MP, LIPA #### [facility] [address] [address] [address] Ravin Dior Urea nitrogen/Creatinine [Mass ratio] 13.6 mg/mg Normal [facility] Comment on above: Performed By: #### C MP, LIPA #### [facility] [address] [address] [address] Ravin Dior URINE MICROSCOPIC ONLYon BACTERIA NONE SEEN Normal NONE SEEN [facility] Comment on above: Performed By: #### E RUR, UMICRO #### [facility] [address] [place] [address] Dr. Ravin Dior Bacteria identified Cx Nom (U) NOT INDICATED Normal [facility] Comment on above: Performed By: #### E RUR, UMICRO #### [facility] [address] [place] [address] Dr. Ravin Dior CAST NONE SEEN Normal NONE SEEN [facility] Comment on above: Performed By: #### E RUR, UMICRO #### [facility] [address] [place] [address] Dr. Ravin Dior Crystals LM Nom (Urine sed) NONE SEEN Normal NONE SEEN [facility] Comment on above: Performed By: #### E RUR, UMICRO #### [facility] [address] [place] [address] Dr. Ravin Dior Epithelial cells LM Ql (Urine sed) FEW Abnormal NONE SEEN /RARE [facility] Comment on above: Performed By: #### E RUR, UMICRO #### [facility] [address] [place] [address] Dr. Ravin Dior MUCOUS NONE SEEN Normal NONE SEEN [facility] Comment on above: Performed By: #### E RUR, UMICRO #### [facility] [address] [place] [address] Dr. Ravin Dior RBC NONE SEEN Abnormal 0-2 [facility] Comment on above: Performed By: #### E RUR, UMICRO #### [facility] [address] [place] [address] Dr. Ravin Dior WBC 0-2 Abnormal NONE SEEN [facility] Comment on above: Performed By: #### E RUR, UMICRO #### [facility] [address] [place] [address] Dr. Ravin Dior Ambulatory Clinical Summaryo n 07-24-2020 Ambulatory Clinical Summary {[id number] Normal [facility]Clin [...] course, # 28 cap(s), Refills(s) 0, [id number], cm, 07/24/20 12:03:00 EST, Height/Length Dosing, 95.9, kg, 07/24/20 12:03:00 EST, Weight Dosing metronidazole, 250 mg = 1 tab(s), Oral, TID, X 7 day(s), # 21 tab(s), Refills(s) 0, Pharmacy: [facility]/pharmacy #[id number], [...] water, # 160 cap(s), Refills(s) 1, Pharmacy: [facility]/pharmacy #[id number], 165, cm, 07/24/20 12:03:00 EST, Height/Length Dosing, 95.9, kg, 07/24/20 12:03:... Orders: pantoprazole, 40 mg = 2 tab(s), Oral, Daily, X 90 day(s), # 180 tab(s), Refills(s) 3, Pharmacy: [facility]/pharmacy #[id number], 165, cm, 07/24/20 12:03:00 EST, Height/Length Dosing, 95.9, kg, 07/24/20 12:03:00 EST, Weight Dosing Follow-up With When Contact Information Isabelle Ramirez MD In 12 months [address] [place] [address]- Additional Instructions: Problem List/Past Medical [...] 12/16/2018 Exercise - Occasional exercise, 12/16/2018 Other Zqheclgz-7-7 cups blair;y, 12/16/2018 Substance Abuse - Denies Substance Abuse, 12/16/2018 Tobacco Never (less than 100 in lifetime) Tobacco Use:., 07/24/2020 Never (less than 100 in lifetime) Tobacco Use:. Never Smokeless Tobacco Use:., 02/01/2019 [facility] Comment on above: Result Comment: Elec tronically Signed By: Taylor Mccauley MD, Isabelle\.br\Date and Time Signed: 07/24/20 13:13 EST Auth for Release of Medical Recordson 02-09-2020 Auth for Release of Medical Records [id number]:127 [facility] Patient Letter FTon 2019 Patient Letter [facility] January 24, 2020 RADHA GUTIÉRREZ [address] [place] [address] BROCKRADHA 1945 Dear Radha, This is a reminder that you are due for an appointment with Dr. Garland or Dr. Mccauley. Please call [facility] at [phone] to schedule an appointment at your earliest convenience. Thank you, [facility] Normal [facility] Vital Signs Date Time Vital Sign Value Performing Clinician Chuckie osborne 10-19-2024 13:15-0400 Body height 165.[address] [facility] 10-19-2024 13:15-0400 Body mass index (BMI) [Ratio] 32.3 kg/m2 [facility] 10-19-2024 13:15-0400 Body temperature 97.5 [degF] [facility] 10-19-2024 13:15-0400 Body weight 88.[address] [facility] 10-19-2024 13:15-0400 Diastolic blood pressure 64 mm[Hg] [facility] 10-19-2024 13:15-0400 Heart rate 75 /min [facility] 10-19-2024 13:15-0400 Respiratory rate 18 /min [facility] 10-19-2024 13:15-0400 SaO2% (BldA) [Mass fraction] 97 % [facility] 10-19-2024 13:15-0400 Systolic blood pressure 99 mm[Hg] [facility] 07-27-2024 10:30-0500 Diastolic blood pressure 68 mm[Hg] [facility] 07-27-2024 10:30-0500 Systolic blood pressure 96 mm[Hg] [facility] 07-27-2024 10:13-0500 Body height 165.[address] [facility] 07-27-2024 10:13-0500 Body mass index (BMI) [Ratio] 31.3 kg/m2 [facility] 07-27-2024 10:13-0500 Body weight 85.[address] [facility] 07-27-2024 10:13-0500 Heart rate 85 /min [facility] 07-27-2024 10:13-0500 Respiratory rate 16 /min [facility] 07-27-2024 10:13-0500 SaO2% (BldA) [Mass fraction] 98 % [facility] Encounters Encounter Date Encounter Type Care Provider Facility Start: 10-20-2024 ambulatory [facility] Start: 10-19-2024 End: 10-19-2024 ambulatory [facility] Work Phone: Start: 10-19-2024 End: 10-19-2024 Patient encounter procedure [facility] Work Phone: Start: 10-09-2024 Non-patient / Non-visit [facility] Work Phone: Start: 09-11-2024 ambulatory [facility] Start: 08-18-2024 End: 08-18-20[facility] Start: 08-18-2024 Non-patient / Non-visit [facility] Work Phone: Start: 08-15-2024 ambulatory [facility] Start: 08-14-2024 End: 08-14-2024 ambulatory [facility] Start: 08-09-2024 ambulatory [facility] Start: 07-27-2024 End: 07-27-2024 ambulatory [facility] Work Phone: Start: 07-27-2024 End: 07-27-2024 Patient encounter procedure [facility] Kevin Work Phone: Start: 07-11-2024 ambulatory [facility] Start: 06-15-2024 ambulatory [facility] Start: 05-22-2024 ambulatory [facility] Start: 05-18-2024 ambulatory [facility] Start: 05-16-2024 ambulatory [facility] Start: 05-15-2024 ambulatory [facility] Start: 05-04-2024 ambulatory [facility] Start: 04-20-2024 ambulatory [facility] Start: 03-27-2024 ambulatory [facility] Start: 03-21-2024 End: 03-21-2024 ambulatory [facility] Start: 03-17-2024 ambulatory [facility] Start: 02-08-2024 End: 02-08-2024 ambulatory [facility] Start: 01-18-2024 ambulatory [facility] Start: 01-17-2024 End: 01-17-2024 ambulatory CARIDAD GARNER Not Available Start: 01-11-2024 End: 01-11-2024 ambulatory SANDIE PAGE Not Available Start: 01-05-2024 ambulatory [facility] Start: 12-28-2023 End: 12-28-2023 Telephone encounter [facility] Start: 12-20-2023 End: 12-20-2023 ambulatory SANDIE PAGE Not Available Start: 12-16-2023 ambulatory [facility] Start: 12-06-2023 End: 12-06-2023 Refill Sonia Tenorio RN [facility] Comment on above: Med Refill Start: 12-01-2023 End: 12-01-[address] [facility] Start: 11-25-2023 ambulatory [facility] Start: 11-25-2023 Encounter for preprocedural cardiovascular examination [facility] Start: 11-24-2023 ambulatory [facility] Start: 11-23-2023 ambulatory [facility] Start: 11-11-2023 End: 11-11-2023 ambulatory OSWALDO GARCÍA Not Available Start: 11-01-2023 ambulatory [facility] Start: 11-01-2023 End: 11-01-2023 ambulatory [facility] Start: 09-10-2023 End: 09-10-2023 Refill Katelynnnisa Erwin [employer] P[employer]ER[employer] PATCHER Work Phone: [facility] Comment on above: Med Refill Start: 06-11-2023 Refill Mike means MD Work Phone: [facility] Comment on above: Med Refill Start: 06-05-2023 Refill Vickitej horne [employer] P[employer]ER[employer] PATCHER Work Phone: [facility] Comment on above: Med Refill Start: 09-22-2022 End: 09-23-2022 ambulatory HEAVNE STALEY Facility:[facility] Start: 07-23-2022 End: 07-24-2022 ambulatory HEAVEN STALEY Facility:[facility] Start: 05-17-2022 End: 05-17-2022 ambulatory HEAVEN STALEY Facility:[facility] Start: 03-26-2022 End: 03-27-[address] JAYLON ORNELAS . Facility:[facility] Start: 12-24-2021 End: 12-25-[address] JAYLON ORNELAS . Facility:[facility] Start: 11-04-2021 End: 11-04-[address] JAYLON ORNELAS . Facility:[facility] Plan of Treatment Date Care Activity Detail Author Start: 01-30-2024 Influenza vaccination Influenza Vacc ine [facility] Start: 08-25-2023 Adult BMI Screening Adult BMI Screen ing [facility] Start: 08-25-2023 Tobacco Screening Tobacco Screening [facility] Start: 01-29-2023 COVID-19 Vaccine ( season) COVID-19 Vaccine ( season) [facility] Start: 01-29-2023 Influenza vaccination Influenza Vacc ine [facility] Start: 11-03-2022 ambulatory Ambulatory Facility:[facility] 1 Start: 2010 Fall Risk Screening Fall Risk Screen ing [facility] Start: 1995 Administration of varicella zoster vaccine Zoster (Shingles) Vaccine (1 of 2) [facility] Start: 1964 DTaP,Tdap and Td Vac cines (1 - Tdap) DTaP,Tdap and Td Vaccines (1 - Tdap) [facility] Start: 1963 Adult BMI Follow Up Plan Adult BMI Follow Up Plan [facility] Start: 1957 Depression Screening [facility] Start: 1945 Medicare Annual Well ness Visit Medicare Annual Wellness Visit [facility] End: 06-08-2024 Basic metabolic 2000 panel - Serum or Plasma Basic Metabolic Panel Lab Routine Essential hypertension 1 Occurrences starting 06/08/2023 until 06/08/2024 [facility] Work Phone: Comment on above: 1 Occurrences starti ng 06/08/2023 until 06/08/2024 Renal function 1999 panel - Serum or Plasma [facility] Renal function 1999 panel - Serum or Plasma [facility] US Kidney - bilateral Firela nds [facility] Immunizations Immunization Date Immunization Notes Care Provider Fa sherie 05-08-2021 influenza virus vaccine, unspecified formulation Mac Erwin APRN-VICKIE Work Phone: [facility] Payers Date Payer Category Payer Medicare HUMANA MEDICARE HU[employer]NA MEDICARE - MD RESIDENT [id number] 2013-Present [phone] [address] [address] [place] [address] [id number] 1959 Medicare [id number] 1945 Unknown [id number] 1945 Unknown [id number] 1945 Unknown [id number] 1945 Unknown [id number] 1945 Unknown [id number] 1945 Unknown [id number] 1945 Unknown [id number] 1945 Unknown [id number] 1945 Unknown [id number] 1945 Unknown [id number] 1945 Unknown [id number] Medicare Medicare [id number] Social History Date Type Detail Facility Start: 05-26-2022 End: 10-19-2024 Tobacco smoking status NHIS Never smoked tobacco [facility] Start: 05-26-2022 Tobacco use and exposure Smoke less tobacco non-user [facility] Start: 08-24-2022 Alcohol intake 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 (finding) [facility] Start: 07-04-2020 End: 08-24-2022 History of Social function [facility] Start: 07-04-2020 End: 08-24-2022 Tobacco use panel [facility] Housing Instability Unknown [facility] Start: 1945 Sex Assigned At Not on file P [facility] Start: 07-27-2024 End: 10-19-2024 Sex Female (finding) [facility] Start: 1945 Sex Assigned At Female F [facility] Medical Equipment Procedure Code Equipment Code Equipment Origin al Text Equipment Identifier Dates Mesh [id number] 3d Rect Plstr Clgn Symbotex 2 Sd Comp Mfl Babsr Rpl [id number] - [facility]ly [facility] - [id number] Start: 06-30-2022 Dev Clsr 30fr Watchman 30mm - [id number] Start: 10-28-2018 Clinical Notes 12-24-2021 to [...] Dr. Hines 2018, implantation of Biventricular ICD ([employer]) 07/05/2023, status post AV node ablation 11/01/[address] Madden. 08/18/2024 office visit: The patient was seen and evaluated in the office today. Overall, she reports feeling well. Abnormal kidney function was incidentally noted on presurgical labs for a planned back surgery, including a potassium of 5.8 and creatinine of 1.62. She has since established care with a automatic folder seamer, whom she saw for the first time [...] oral, Nightly sp (more content not included)... [facility] 03-21-2024 Note [place] Electrophysiology Consult Note Reason for visit: Afib [...] previously seen by [facility]ology. She was initially seen by Dr. [...] on file Intimate Partner Violence: Unknown (07/23/2023) [place] Safety & Environment Fear of Current or [...] mg tablet Ta (more content not included)... [facility] 02-14-2024 Note This report has been cancelled. [facility] 02-11-2024 Note RCRI= 2 points Class III Risk 10.1 % 30-day risk of , MA, or cardiac arrest From a cardiac perspective pt may proceed with planned surgery, she is a moderate risk for a moderate risk orthopedic surgery. She may hold Aspirin 5-7 days prior and resume post op. Please monitor hemodynamics carefully and prevent any major fluid shifts. Toya Rizo [facility] Cardiology Available 7a-5pm via [employer] Chat Pager [phone] [facility] 12-28-2023 Miscellaneous Notes Rec'd letter from patient stating that she no longer sees [facility], uses a doctor in [place]. documented in this encounter [facility] 12-28-2023 Telephone encounter Note Rec'd letter from patient stating that she no longer sees [facility], uses a doctor in [place]. [facility] 12-06-2023 Miscellaneous Notes Last OV 06/15/22.slm T/C to pt to sched [facility] f/u appt. No answer and mailbox is full. documented in this encounter [facility] 12-06-2023 Telephone encounter Note Last OV 06/15/22.slm [facility] 12-06-2023 Telephone encounter Note T/C to pt to sched [facility] f/u appt. No answer and mailbox is full. [facility] 12-01-2023 Note Currently pt is doin g quite well s/p recent AV node ablation Remains V paced with BI-V AICd [facility] 12-01-2023 Note No anticoagulation currently [facility] 12-01-2023 Note Patient here for fol low up AV node ablation performed on 11/01/[address] Madden. She denies chest pain, SOB, palpitations, and lightheadedness/syncope. Review of Systems Musculoskeletal: Positive for arthritis and back pain. All other systems reviewed and are negative. [facility] 12-01-2023 Note [facility]TP CARDIOLOGY PROGR ESS [...] GI bleed. [facility] She was initially seen by [...] Conjunctivae normal. (more content not included)... [facility] 11-01-2023 Note AV NODE ABLATION PRO CEDURE REPORT DATE OF PROCEDURE: 11/01/2023 PERFORMING PHYSICIAN: Dr. Robert Madden AERODYNAMICS ENGINEER: NA CONSENT: Patient NAME OF THE PROCEDURE: [...] previously seen by [facility] cardiology. She was initially seen by Dr. [...] anticoagulation. Robert Madden MD Cardiac Electrophysiology. [facility] 11-01-2023 Note Patient: Radha mcghee Procedure Information Date/Time: 11/01/23829 Procedure: AV node ablation Location: [facility] BANKING OFFICER 1 EP / [facility] HV VASCULAR LAB (Cath) Providers: [...] with patient who. Additional Equipment Requests [facility] 11-01-2023 Note [place] Electrophysiology Consult Note Reason for visit: Afib [...] GI bleed. [facility] She was initially seen by [...] on file Intimate Partner Violence: Unknown (07/23/2023) [place] Safety & Environment Fear of Current or [...] mg tab (more content not included)... [facility] 09-10-2023 Miscellaneous Notes Please sign and route if you agree. Thank you HODAN 06/22/22 Pt needs annual appt schedule please, thank you. Letter mailed. LMOM for the patient to call and schedule their next appointment with [facility]. documented in this encounter [facility] 09-10-2023 Telephone encounter Note Please sign and route if you agree. Thank you HODAN 06/22/22 Pt needs annual appt schedule please, thank you. Letter mailed. [facility] 09-10-2023 Telephone encounter Note LMOM for the patient to call and schedule their next appointment with [facility]. [facility] 06-11-2023 Miscellaneous Notes Last OV 06/15/22, sent to [facility] frontend engineer for yearly visit to be scheduled. CMP 06/22/22. BMP ordered from refill encounter 06/08/23. Letter has been mailed, but will attempt to send letter via [facility] as last login was 05/07/23. documented in this encounter [facility] 06-11-2023 Telephone encounter Note Last OV 06/15/22, sent to [facility] frontend engineer for yearly visit to be scheduled. CMP 06/22/22. BMP ordered from refill encounter 06/08/23. Letter has been mailed, but will attempt to send letter via [facility] as last login was 05/07/23. [facility] 07-23-2022 Note PAIN MANAGEMENT CONS [...] months' time or sooner if needed. [facility] 03-26-2022 Note CONSULTATION CONSULTATION DATE: 03/26/2022 [...] agrees with the plan of care. [facility] 12-24-2021 Note CONSULTATION PROCEDURE DATE: 12/24/2021 [...] the procedure well with no complications. [facility] 12-24-2021 Note CONSULTATION CONSULTATION DATE: 12/24/2021 [...] three months' time, unless otherwise indicated. [facility] Evaluation note Diagnosis Essential hypertension- Primary Unspecified essential hypertension documented [facility] this encounter [facility] Diagnosis Chronic systolic CHF (congestive heart failure) ([facility]) documented [facility] this encounter [facility]* Diagnosis Onset Date Resolution [...] Iron deficiency acute July 27, 2024 10:10am [facility] Work Phone: Evaluation note* Diagnosis Onset Date [...] Iron deficiency acute October 19, 2024 12:46pm [facility] Work Phone: InstructionsNot on filedocumented in this encounter [facility] filedocumented in this encounter [facility] on filedocumented in this encounter [facility] on filedocumented in this encounter [facility] Summary Purpose Family History [...] and content) DATE CREATED AUTHOR 07/25/2020 [facility] DATE CREATED AUTHOR AUTHOR'S ORGANIZ ATION 10/12/2022 [facility] DATE CREATED AUTHOR AUTHOR'S ORGANIZ ATION 01/17/2024 [facility] EPIC DATE CREATED AUTHOR AUTHOR'S ORGANIZ ATION 10/26/2024 [facility] Reason for Visit (unrecogniz ed [...] October 19, 2024 End: October 19, 2024 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 Relationship Specialty Start Date End Date Heaven Staley APRN-CNP [facility] [place] [address] PCP - General Family Medicine 10/30/21 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 Relationship Specialty Start Date End Date Heaven Staley APRN-CNP [address] [facility] [place] [address] PCP - General Family Medicine 10/30/21 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 [employer] [facility]. provides no warranty or guarantee of the accuracy or completeness of information in this document.
== END 2024-12-07 07:55 | disposition home or self-care (01) ==
LOC: CT 07:54
PROVIDERS: PCP Nurse Practitioner Family; Visit Provider Nurse Practitioner
DX: M54.12 Radiculopathy, cervical region (principal); M50.30 Other cervical disc degeneration, unspecified cervical region; M48.02 Spinal stenosis, cervical region
CPT/HCPCS: 72125

== ENCOUNTER 2024-12-11 10:02 | Day surgery (SDC) | payer MEDICARE, SELFPAY ==
--- OUTSIDE RECORDS SUMMARY | 2024-12-11 10:17 | XMS_ITS | CCD ---
Author Organization [facility] Care Team Providers Care Director Music Name Role Phone JOHNSON ., DR JAYOLN Ruelas Admitting Unavailable ORNELAS ., DR JAYLON Ruelas Attending Unavailable [facility] Unavailable ORNELAS ., DR JAYLON Ruelas Consulting Unavailable MICHELINE MOLINA Consulting Unavailable JOHNSON ., DR JAYLON Ruelas Admitting Unavailable ORNELAS ., DR JAYLON Ruelas Attending Unavailable [facility] Primary Care Unavailable RODRIGUEZ ., SABRINA Consulting Unavailable ORNELAS ., DR JAYLON Ruelas Admitting Unavailable ORNELAS ., DR JAYLON Ruelas Attending Unavailable [facility] Primary Care Unavailable RODRIGUEZ ., SABRINA Consulting Unavailable [facility] Primary Care Unavailable LAKSHMIPATHY ., NARENDRANATH Admitting Charity vailable LAKSHMIPATHY ., NARENDRANATH Attending Charity vailable LAKSHMIPATHY ., NARENDRANATH Consulting Charity vailable LAKSHMIPATHY ., NARENDRANATH Admitting Charity vailable LAKSHMIPATHY ., NARENDRANATH Attending Charity vailable [facility] Primary Care Unavailable LUÍS, HEAVEN Admitting Unavailable HEAVEN STALEY Attending Unavailable [facility] Primary Care Unavailable DR OSWALDO VALENZUELA Consulting Unavailable HEAVEN STALEY Consulting Unavailable [facility] Primary Care Unavailable DAREK .KEILY Admitting Unavailable DAREK ., KEILY Attending Unavailable DAREK ., KEILY Consulting Unavailable KELSIE DEL ANGEL Consulting Unavailable OSWALDO GARCÍA Attending Unavailable SANDIE PAGE Attending Unavailable HEAVEN STALEY Referring Unavailable SANDIE PAGE Attending Unavailable CARIDAD GARNER Attending Unavailable Heaven Steven Primary Care Provider BIRD MADDEN Referring Unavailable BIRD MADDEN Referring Unavailable BIRD MADDEN Referring Unavailable BIRD MADDEN Referring Unavailable BIRD MADDEN Referring Unavailable NAVID, BIRD Referring Unavailable NAVID, BIRD Referring Unavailable NAVID, BIRD Referring Unavailable NAVID, BIRD Referring Unavailable NAVID, BIRD Referring Unavailable NAVID, BIRD Referring Unavailable NAVID, BIRD Referring Unavailable NAVID, BIRD Referring Unavailable NAVID, BIRD Attending Unavailable DANIEL, DANII Attending Unavailable NAVID, BIRD Referring Unavailable NAVID, BIRD Referring Unavailable NAVID, BIRD Referring Unavailable NAVID, BIRD Referring Unavailable NAVID, BIRD Referring Unavailable NAVID, BIRD Referring Unavailable NAVID, BIRD Referring Unavailable NAVID, BIRD Referring Unavailable Allergies Allergy Classification Reported Allergen(s) Allergy Type Date of Onset Reaction(s) Facility (4 sources) Codeine; Translations: [CODEINE] Drug Allergy 06-06-2014 [facility] (5 sources) Codeine Drug Allergy 06-06-2014 [facility] (6 sources) Lisinopril; Translations: [LISINOPRIL] Drug Allergy 10-19-2014 [facility] (3 sources) pregabalin; Translations: [PREGABALIN] Drug Allergy 12-01-2023 [facility] Medications Current Medications Medication Drug Class(es) Dates Sig (Normalized) Sig (Original) acetaminophen 325 mg / oxyCODONE hydrochloride 5 mg oral tablet (7 sources) Opioid Agonist Start: 07-27-2024 take 1 tablet by mouth every eight hours as needed Oxycodone-Acetami nophen (Percocet) 5-325 mg tablet Active 1 TAB PO Every 8 hours as needed July 27, 2024 1:00am take 1 tablet by amanda every four hours as needed for pain [...] Start: 10-19-2024 take 1 tablet by amanda every other day Ferrous Sulfate 325 mg [...] 2024 12:00am take 1 tablet by amanda once daily at breakfast ferrous sulfate 325 [...] 30 tablet 1 06/08/2023 Active lactobacillus acidophilus [id number] unt oral capsule (5 sources) take 1 tablet by mouth once daily Lactobacillus acidophilus 10 billion cell capsule Take 1 tablet by mouth daily. Active losartan potassium 25 mg oral tablet (2 sources) Angiotensin 2 Receptor Minnie Start: 07-27-19 take 1 tablet by mouth once daily Losartan 25 mg tablet Active 25 MG PO Daily July 27, 2024 1:00am 24 hr metoprolol succinate 50 mg extended release oral tablet (9 sources) beta-Adrenergic Minnie Start: 07-27-19 take 1 [...] Indications: Chronic systolic CHF (congestive heart failure) ([facility]) Take 1 tablet (25 mg total) [...] disease (2 sources) Atherosclerotic heart disease of [place] coronary artery without angina pectoris; Translations: [Atherosclerotic heart disease of [place] coronary artery without angina pectoris] Onset: 08-18-2024 [...] 10-11-2020 Episodic Other aftercare (1 source) Other longterm (current) drug therapy; Translations: [[facility] CURRENT [facility]ERAPY] Onset: 05-19-2022 Episodic Other [...] width [Ratio] by Automated count High 11.0-15.0 [facility] Estimated glomerular filtrat ion rate (GFR) non- Americanon 10-09-2024 GFR/1.73 sq M.predicted among non-blacks MDRD (S/P/Bld) [Vol rate/Area] Estimated glomerular filtration rate (GFR) non- Low >=60 mL/min/1.73m 2 [facility] Hematocrit Auto (Bld) [Volum e fraction]on 10-09-2024 Hematocrit (Bld) [Volume fraction] Hematocrit [Volume Fraction] of Blood by Automated count Low 36.0-48.0 [facility] Hemoglobin [Mass/volume] in Bloodon 10-09-2024 Hemoglobin (Bld) [Mass/Vol] Hemoglobin [Mass/volume] in Blood Low 12.0-16.0 [facility] Iron binding capacity [Mass/ volume] in Serum or Plasmaon 10-09-2024 Iron binding capacity [Mass/Vol] Iron binding capacity [Mass/volume] in Serum or Plasma 250.0-450.0 [facility] Iron saturation [Mass Fracti on] in Serum or Plasmaon 10-09-2024 Iron saturation [Mass fraction] Iron saturation [Mass Fraction] in Serum or Plasma [facility] Laboratory - Chemistry and C hemistry - challengeon 10-09-2024 Albumin [Mass/Vol] 3.2 g/dL Low 3.4-5.0 [facility] Calcium [Mass/Vol] 8.9 mg/dL 8.5-10.1 [facility] Chloride [Moles/Vol] 105 mmol/L 98-107 [facility] CO2 [Moles/Vol] 28.4 mmol/L 21.0-32.0 [facility] Creatinine [Mass/Vol] 1.33 mg/dL High 0.55-1.02 [facility] Ferritin [Mass/Vol] 13.0 ng/mL 8.0-252.0 [facility] GFR/1.73 sq M.predicted MDRD (S/P/Bld) [Vol rate/Area] 47 mL/min/{1.73_m2} Low >=60 mL/min/1.73m 2 [facility] Glucose [Mass/Vol] 85 mg/dL 74-106 [facility] Iron [Mass/Vol] 33.0 ug/dL Low 50.0-170.0 [facility] Magnesium [Mass/Vol] 2.1 mg/dL 1.8-2.4 [facility] Potassium [Moles/Vol] 4.6 mmol/L 3.5-5.1 [facility] Sodium [Moles/Vol] 139 mmol/L 136-145 [facility] Urate [Mass/Vol] 6.1 mg/dL High 2.6-6.0 [facility] Urea nitrogen [Mass/Vol] 30.0 mg/dL High 7.0-18.0 [facility] Urea nitrogen/Creatinine [Mass ratio] 22.6 mg/mg [facility] Laboratory - Urinalysison Protein (U) [Mass/Vol] 15.7 mg/dL High <=11.9 [facility] Leukocytes [#/volume] correc halie for nucleated erythrocytes in Blood by Automated counon 10-09-2024 WBC corrected for nucl RBC Auto (Bld) [#/Vol] Leukocytes [#/volume] corrected for nucleated erythrocytes in Blood by Automated coun 4.0-11.0 [facility] MCH Auto (RBC) [Entitic mass ]on 10-09-2024 MCH (RBC) [Entitic mass] MCH [Entitic mass] by Automated count 26.7-34.0 [facility] MCHC Auto (RBC) [Mass/Vol]on 10-09-2024 MCHC (RBC) [Mass/Vol] MCHC [Mass/volume] by Automated count 29.9-35.2 [facility] MCV Auto (RBC) [Entitic vol] on 10-09-2024 MCV (RBC) [Entitic vol] MCV [Entitic volume] by Automated count 81.0-99.0 [facility] No Panel Informationon 10-09 25-Hydroxy Vitamin D Total 46.5 ng/mL [facility] Comment on above: <20 ng/mL Vit D defi cient20-<30 ng/mL Vit D tepffcghfixl92-050 ng/mL Vit D sufficient>100 ng/mL Potential Toxicity Parathyroid Hormone (Intact) 76 pg/mL Abnormal 15-65 [facility] Comment on above: Performed at: [address] [id number] Director: Ra Gonzalez PhD, Phone: [phone] Phosphorus Level 3.9 mg/dL 2.6-4.7 [facility] Urine Random Creatinine 82.53 mg/dL 20.00-300.00 [facility] Platelet mean volume Auto (B ld) [Entitic vol]on 10-09-2024 Platelet mean volume (Bld) [Entitic vol] Platelet mean volume [Entitic volume] in Blood by Automated count 9.5-13.5 [facility] Platelets Auto (Bld) [#/Vol] on 10-09-2024 Platelets (Bld) [#/Vol] Platelets [#/volume] in Blood by Automated count 150-450 [facility] RBC Auto (Bld) [#/Vol]on RBC (Bld) [#/Vol] Erythrocytes [#/volume] in Blood by Automated count Low 4.20-5.40 [facility] Serum or plasma anion gap de terminationon 10-09-2024 Anion gap [Moles/Vol] Serum or plasma anion gap determination [facility] Urine protein/creatinine rat ioon 10-09-2024 Protein/Creatinine (U) [Ratio] Urine protein/creatinine ratio [facility] Erythrocyte distribution wid th Auto (RBC) [Ratio]on 08-18-2024 Erythrocyte distribution width (RBC) [Ratio] Erythrocyte distribution width [Ratio] by Automated count High 11.0-15.0 [facility] Estimated glomerular filtrat ion rate (GFR) non- Americanon 08-18-2024 GFR/1.73 sq M.predicted among non-blacks MDRD (S/P/Bld) [Vol rate/Area] Estimated glomerular filtration rate (GFR) non- Low >=60 mL/min/1.73m 2 [facility] Hematocrit Auto (Bld) [Volum e fraction]on 08-18-2024 Hematocrit (Bld) [Volume fraction] Hematocrit [Volume Fraction] of Blood by Automated count Low 36.0-48.0 [facility] Hemoglobin [Mass/volume] in Bloodon 08-18-2024 Hemoglobin (Bld) [Mass/Vol] Hemoglobin [Mass/volume] in Blood Low 12.0-16.0 [facility] Iron binding capacity [Mass/ volume] in Serum or Plasmaon 08-18-2024 Iron binding capacity [Mass/Vol] Iron binding capacity [Mass/volume] in Serum or Plasma 250.0-450.0 [facility] Iron saturation [Mass Fracti on] in Serum or Plasmaon 08-18-2024 Iron saturation [Mass fraction] Iron saturation [Mass Fraction] in Serum or Plasma [facility] Laboratory - Chemistry and C hemistry - challengeon 08-18-2024 Albumin [Mass/Vol] 3.4 g/dL 3.4-5.0 [facility] Calcium [Mass/Vol] 9.0 mg/dL 8.5-10.1 [facility] Chloride [Moles/Vol] 108 mmol/L High 98-107 [facility] CO2 [Moles/Vol] 26.5 mmol/L 21.0-32.0 [facility] Creatinine [Mass/Vol] 1.36 mg/dL High 0.55-1.02 [facility] Ferritin [Mass/Vol] 17.0 ng/mL 8.0-252.0 [facility] GFR/1.73 sq M.predicted MDRD (S/P/Bld) [Vol rate/Area] 45 mL/min/{1.73_m2} Low >=60 mL/min/1.73m 2 [facility] Glucose [Mass/Vol] 96 mg/dL 74-106 [facility] Iron [Mass/Vol] 71.0 ug/dL 50.0-170.0 [facility] Magnesium [Mass/Vol] 2.4 mg/dL 1.8-2.4 [facility] Potassium [Moles/Vol] 4.7 mmol/L 3.5-5.1 [facility] Sodium [Moles/Vol] 140 mmol/L 136-145 [facility] Urate [Mass/Vol] 6.5 mg/dL High 2.6-6.0 [facility] Urea nitrogen [Mass/Vol] 36.0 mg/dL High 7.0-18.0 [facility] Urea nitrogen/Creatinine [Mass ratio] 26.5 mg/mg [facility] Leukocytes [#/volume] correc halie for nucleated erythrocytes in Blood by Automated counon 08-18-2024 WBC corrected for nucl RBC Auto (Bld) [#/Vol] Leukocytes [#/volume] corrected for nucleated erythrocytes in Blood by Automated coun 4.0-11.0 [facility] MCH Auto (RBC) [Entitic mass ]on 08-18-2024 MCH (RBC) [Entitic mass] MCH [Entitic mass] by Automated count 26.7-34.0 [facility] MCHC Auto (RBC) [Mass/Vol]on 08-18-2024 MCHC (RBC) [Mass/Vol] MCHC [Mass/volume] by Automated count 29.9-35.2 [facility] MCV Auto (RBC) [Entitic vol] on 08-18-2024 MCV (RBC) [Entitic vol] MCV [Entitic volume] by Automated count 81.0-99.0 [facility] No Panel Informationon 08-18 25-Hydroxy Vitamin D Total 45.3 ng/mL [facility] Comment on above: <20 ng/mL Vit D defi cient20-<30 ng/mL Vit D qqottpokvfjo93-374 ng/mL Vit D sufficient>100 ng/mL Potential Toxicity Parathyroid Hormone (Intact) 106 pg/mL Abnormal 15-65 [facility] Comment on above: Performed at: [facility] [employer] [address] [id number] Director: Ra Gonzalez PhD, Phone: [phone] Phosphorus Level 3.7 mg/dL 2.6-4.7 [facility] Urine Random Creatinine 36.44 mg/dL 20.00-300.00 [facility] Urine Random Total Protein <6.0 mg/dL <=11.9 [facility] Office Visiton 08-18-2024 Follow-up visit [id number] Radha Gutiérrez 1945 F Date Provider Department Center 08/18/2024 [id number] FREEDMAN MAGNUS Herrera [facility] Family History Problem Relation Age of Onset Heart failure Father Family Status - Relation Status Age at Father Level of Service:32727 IN OFFICE/OUTPATIENT ESTABLISHED LOW MDM 20 MIN Normal [facility] Platelet mean volume Auto (B ld) [Entitic vol]on 08-18-2024 Platelet mean volume (Bld) [Entitic vol] Platelet mean volume [Entitic volume] in Blood by Automated count 9.5-13.5 [facility] Platelets Auto (Bld) [#/Vol] on 08-18-2024 Platelets (Bld) [#/Vol] Platelets [#/volume] in Blood by Automated count 150-450 [facility] RBC Auto (Bld) [#/Vol]on RBC (Bld) [#/Vol] Erythrocytes [#/volume] in Blood by Automated count Low 4.20-5.40 [facility] Serum or plasma anion gap de terminationon 08-18-2024 Anion gap [Moles/Vol] Serum or plasma anion gap determination [facility] Office Visiton 03-21-2024 Follow-up visit [id number] Radha Gutiérrez 1945 Date Provider Department [place] 03/21/2024 BIRD GEE MAGNUS [place] Family History Problem Relation Age of Onset Heart failure Father Family Status - Relation Status Age at Father Level of Service:64466 IN OFFICE/OUTPATIENT ESTABLISHED LOW MDM 20 MIN [facility] 36on 02-11-2024 36 Tried to contact patient and she has no VM set up. Will try again on Wednesday. [facility] Documentationon 02-11-2024 Documentation [id number] Radha Gutiérrez 1945 Provider Department [place] 02/11/2024 TOYA VALENCIA [facility] Family History Problem Relation Age of Onset Heart failure Father Family Status - Relation Status Age at Father [facility] 36on 02-08-2024 36 Patient had her [...] Dr. Madden until 03/21. Please advise. Thanks. [facility] Telephoneon 02-08-2024 Telephone [id number] Radha Gutiérrez 1945 Date Provider Department Center 02/08/2024 CARIDAD HENAO Family History Problem Relation Age of Onset Heart failure Father Family Status - Relation Status Age at Father [facility] INSULINon 09-23-2022 Insulin 7.9 uIU/mL Normal 2.6-24.9 [facility] Comment on above: Performed By: #### I NSULIN ####[facility] [address] [place] [id number]. Ravin Dior CBC AUTO DIFFon 09-22-2022 BASO # 0.0 103/ul Normal 0.0-0.1 [facility] Comment on above: Performed By: #### C BC ####[facility] [address] [place] [id number]. Ravin Ovi Basophils/100 WBC (Bld) 0.4 % Normal 0.2-2.0 [facility] Comment on above: Performed By: #### C BC ####[facility] [address] [place], [place] [address]Dr. Ravin Dior EO # 0.6 103/ul Normal 0.0-0.7 [facility] Comment on above: Performed By: #### C BC ####[facility] [address] [place], [place] [address]Dr. Novalilliana Dior Eosinophils/100 WBC (Bld) 6.6 % Normal 0.9-7.0 [facility] Comment on above: Performed By: #### C BC ####[facility] [address] [place], [place] [address]Dr. Ravin Dior Erythrocyte distribution width (RBC) [Ratio] 16.2 % Critically high 11.0-15.0 [facility] Comment on above: Performed By: #### C BC ####[facility] [address] [place], [place] [address]Dr. Ravin Dior Hematocrit (Bld) [Volume fraction] 43.3 % Normal 36.0-48.0 [facility] Comment on above: Performed By: #### C BC ####[facility] [address] [place], [place] [address]Dr. Ravin Dior Hemoglobin (Bld) [Mass/Vol] 13.4 g/dL Normal 12.0-16.0 [facility] Comment on above: Performed By: #### C BC ####[facility] [address] [place], [place] [address]Dr. Ravin Dior IG # 0.05 10e3/ul Critically high 0.00-0.03 [facility] Comment on above: Performed By: #### C BC ####[facility] [address] [place] [id number] Dior IG % 0.5 % Normal 0.0-0.5 [facility] Comment on above: Performed By: #### C BC ####[facility] [address] [place] [id number] Dior LYMPH # 2.1 103/ul Normal 1.2-3.8 [facility] Comment on above: Performed By: #### C BC ####[facility] [address] [place] [address]DrViky Dior Lymphocytes/100 WBC (Bld) 23.1 % Normal 20.5-60.0 [facility] Comment on above: Performed By: #### C BC ####[facility] [address] [place] [address]DrViky Dior MANUAL DIFF REQ NO Normal [facility] Comment on above: Performed By: #### C BC ####[facility] [address] [place] [id number] Novalilliana Dior MCH (RBC) [Entitic mass] 29.5 pg Normal 26.7-34.0 [facility] Comment on above: Performed By: #### C BC ####[facility] [address] [place] [id number] Dior MCHC (RBC) [Mass/Vol] 30.9 g/dL Normal 29.9-35.2 [facility] Comment on above: Performed By: #### C BC ####[facility] [address] [place] [id number] Dior MCV (RBC) [Entitic vol] 95.4 fL Normal 81.0-99.0 [facility] Comment on above: Performed By: #### C BC ####[facility] [address] [place] [id number] Dior MONO # 0.5 103/ul Normal 0.3-0.8 [facility] Comment on above: Performed By: #### C BC ####[facility] [address] [place] [id number]. Ravin Dior Monocytes/100 WBC (Bld) 5.8 % Normal 1.7-12.0 [facility] Comment on above: Performed By: #### C BC ####[facility] [address] [place] [id number]. Ravin Dior NEUT # 5.8 103/ul Normal 1.4-6.5 [facility] Comment on above: Performed By: #### C BC ####[facility] [address] [place] [id number]. Ravin Dior Neutrophils/100 WBC (Bld) 63.6 % Normal 43.0-75.0 [facility] Comment on above: Performed By: #### C BC ####[facility] [address] [place] [address]Dr. Ravin Dior Platelet mean volume (Bld) [Entitic vol] 10.7 fL Normal 9.5-13.5 [facility] Comment on above: Performed By: #### C BC ####[facility] [address] [place] [id number]. Ravin Dior PLT 223 103/ul Normal 150-450 [facility] Comment on above: Performed By: #### C BC ####[facility] [address] [place] [id number]. Ravin Dior RBC 4.54 106/ul Normal 4.20-5.40 [facility] Comment on above: Performed By: #### C BC ####[facility] [address] [place] [id number]. Ravin Dior WBC 9.2 103/ul Normal 4.0-11.0 [facility] Comment on above: Performed By: #### C BC ####[facility] [address] [place] [id number]. Ravin Dior FREE THYROXINE INDEX T7on FTI 2.44 Normal 1.30-4.50 [facility] Comment on above: Performed By: #### C MP, T7, TSH, LIPID #### [facility] Laboratory [address] [address] [address] Ravin Dior T3U 33.0 % Normal 30.0-39.0 [facility] Comment on above: Performed By: #### C MP, T7, TSH, LIPID #### [facility] Laboratory [address] [address] [address] Ravin Dior T4 [Mass/Vol] 7.40 ug/dL Normal 4.80-13.90 [facility] Comment on above: Performed By: #### C MP, T7, TSH, LIPID #### [facility] Laboratory [address] [address] [address] Ravin Dior GLYCOHEMOGLOBIN A1Con 2022 ADA RECOMMENDATION SEE BELOW Normal [facility] Comment on above: Result Comment: ADA RECOMMENDED LIMIT 4.0 - 6.0 ADA THERAPEUTIC TARGET < 7.0 ACTION SUGGESTED > 7.0 Performed By: #### A 1C ####[facility] [address] [place] [address]DrViky Dior Glucose [Mass/Vol] 105 mg/dL Normal [facility] Comment on above: Performed By: #### A 1C ####[facility] [address] [place] [phone] Dior HbA1c (Bld) [Mass fraction] 5.3 % Normal 4.5-6.2 [facility] Comment on above: Performed By: #### A 1C ####[facility] [address] [place] [address]DrViky Dior IRONon 09-22-2022 Iron [Mass/Vol] 81.0 ug/dL Normal 50.0-170.0 [facility] Comment on above: Performed By: #### I SEAMUS ####[facility] [address] [place] [address]DrViky Dior LIPID PROFILEon 09-22-2022 CHOL-HDL RATIO NORM SEE BELOW Normal [facility] Comment on above: Result Comment: 3.3 - 4.4 LOW RISK 4.4 - 7.1 AVERAGE RISK 7.1 - 11.0 MODERATE RISK >11.0 HIGH RISK Performed By: #### C MP, T7, TSH, LIPID ####[facility] [address] [place] [phone]. Ravin Dior Cholesterol [Mass/Vol] 159 mg/dL Normal <=200 [facility] Comment on above: Performed By: #### C MP, T7, TSH, LIPID ####[facility] [address] [place] [phone]. Novalan Dior Cholesterol in HDL [Mass/Vol] 47 mg/dL Normal 40-60 [facility] Comment on above: Performed By: #### C MP, T7, TSH, LIPID ####[facility] [address] [place] [address]Dr. Ravin Dior Cholesterol in LDL [Mass/Vol] 96.4 mg/dL Normal [facility] Comment on above: Performed By: #### C MP, T7, TSH, LIPID ####[facility] [address] [place] [address]Dr. Novalan Dior Cholesterol.total/Cho lesterol in HDL [Mass ratio] 3.4 {ratio} Normal [facility] Comment on above: Performed By: #### C MP, T7, TSH, LIPID ####[facility] [address] [place] [id number]. Novalan Dior HDL NORMAL > or = 60 mg/dl - LOW CARDIOVASCULAR RISK <40 mg/dl - HIGH CARDIOVASCULAR RISK Normal The [facility] Comment on above: Performed By: #### C MP, T7, TSH, LIPID ####[facility] [address] [place] [address]Dr. Novalan Dior LDL CALC NORMAL SEE BELOW Normal [facility] Comment on above: Result Comment: <100 mg/dl OPTIMAL 100 - 129 mg/dl NEAR OR ABOVE OPTIMAL 130 - 159 mg/dl BORDERLINE HIGH 160 - 189 mg/dl HIGH >190 mg/dl VERY HIGH Performed By: #### C MP, T7, TSH, LIPID ####[facility] [address] [place] [address]Dr. Yilan Dior Triglyceride [Mass/Vol] 78 mg/dL Normal <=150 [facility] Comment on above: Performed By: #### C MP, T7, TSH, LIPID ####[facility] [address] [place], [place] [address]Ip. Rvain Dior VLDL CALC 15.6 mg/dL Normal [facility] Comment on above: Performed By: #### C MP, T7, TSH, LIPID ####[facility] [address] [place], [place] [address]La. Ravin Dior MG MAMM SCREEN 3D NIKOS CADon 09-22-2022 MG MAMM SCREEN 3D NIKOS CAD Patient: RADHA GUTIÉRREZ Exam Date: 09/22/2022 : 1945 Gender:F Ordering : [facility] Admission #: [id number] Family : Order #: [id number] CLICK HERE TO VIEW EXAM RADIOLOGY REPORT [...] Family Cancers None LOCATION: The [facility] BREAST COMPOSITION: Almost entirely fatty. FINDINGS: DIAGNOSTIC [...] Valenzuela M.D. on 09/22/2022 at 17:02 Normal The [facility] PROF 14(COMP METB)on 023 Albumin [Mass/Vol] 3.3 g/dL Critically low 3.4-5.0 Th e [facility] Comment on above: Performed By: #### C MP, T7, TSH, LIPID #### [facility] Laboratory [address] [address] [address] Ravin Dior Albumin/Globulin [Mass ratio] 0.7 {ratio} Normal [facility] Comment on above: Performed By: #### C MP, T7, TSH, LIPID #### [facility] Laboratory [address] [address] [address] Ravin Dior ALP [Catalytic activity/Vol] 207 U/L Critically high 46-116 [facility] Comment on above: Performed By: #### C MP, T7, TSH, LIPID #### [facility] Laboratory [address] [place] [address] Dr. Ravin Dior ALT [Catalytic activity/Vol] 47 U/L Normal 14-59 [facility] Comment on above: Performed By: #### C MP, T7, TSH, LIPID #### [facility] Laboratory [address] [place] [address] Dr. Ravin Dior Anion gap [Moles/Vol] 11.5 mmol/L Normal [facility] Comment on above: Performed By: #### C MP, T7, TSH, LIPID #### [facility] Laboratory [address] [place] [address] Dr. Ravin Dior AST [Catalytic activity/Vol] 35 U/L Normal 15-37 [facility] Comment on above: Performed By: #### C MP, T7, TSH, LIPID #### [facility] Laboratory [address] [place] [address] Dr. Ravin Dior Bilirubin [Mass/Vol] 0.6 mg/dL Normal 0.2-1.0 [facility] Comment on above: Performed By: #### C MP, T7, TSH, LIPID #### [facility] Laboratory [address] [place] [address] Dr. Ravin Dior Calcium [Mass/Vol] 9.2 mg/dL Normal 8.5-10.1 [facility] Comment on above: Performed By: #### C MP, T7, TSH, LIPID #### [facility] Laboratory [address] [place] [address] Dr. Ravin Dior Chloride [Moles/Vol] 109 mmol/L Critically high 98-107 The [facility] Comment on above: Performed By: #### C MP, T7, TSH, LIPID #### [facility] Laboratory [address] [address] [address] Ravin Dior CO2 [Moles/Vol] 27.7 mmol/L Normal 21.0-32.0 [facility] Comment on above: Performed By: #### C MP, T7, TSH, LIPID #### [facility] Laboratory [address] [place] [address] Dr. Ravin Dior Creatinine [Mass/Vol] 0.94 mg/dL Normal 0.55-1.02 [facility] Comment on above: Performed By: #### C MP, T7, TSH, LIPID #### [facility] Laboratory [address] [place] [address] Dr. Ravin Dior EGFR-AF MALIAN >60 Normal >=60 The [facility] Comment on above: Performed By: #### C MP, T7, TSH, LIPID #### [facility] Laboratory [address] [address] [address] Ravin Dior EGFR-NON AF MALIAN 58 mL/min/1.73m2 Critically low >=60 [facility] Comment on above: Performed By: #### C MP, T7, TSH, LIPID #### [facility] Laboratory [address] [place] [address] Dr. Ravin Dior Globulin (S) [Mass/Vol] 4.7 g/dL Normal [facility] Comment on above: Performed By: #### C MP, T7, TSH, LIPID #### [facility] Laboratory [address] [address] [address] Ravin Dior Glucose [Mass/Vol] 95 mg/dL Normal 74-106 The [facility] Comment on above: Performed By: #### C MP, T7, TSH, LIPID #### [facility] Laboratory [address] [address] [address] Ravin Dior Potassium [Moles/Vol] 4.2 mmol/L Normal 3.5-5.1 The [facility] Comment on above: Performed By: #### C MP, T7, TSH, LIPID #### [facility] Laboratory [address] [address] [address] Ravin Dior Protein [Mass/Vol] 8.0 g/dL Normal 6.4-8.2 [facility] Comment on above: Performed By: #### C MP, T7, TSH, LIPID #### [facility] Laboratory [address] [address] [address] Ravin Dior Sodium [Moles/Vol] 144 mmol/L Normal 136-145 [facility] Comment on above: Performed By: #### C MP, T7, TSH, LIPID #### [facility] Laboratory [address] [place] [address] Dr. Ravin Dior Urea nitrogen [Mass/Vol] 21.0 mg/dL Critically high 7.0-18.0 [facility] Comment on above: Performed By: #### C MP, T7, TSH, LIPID #### [facility] Laboratory [address] [place] [address] Dr. Ravin Dior Urea nitrogen/Creatinine [Mass ratio] 22.3 mg/mg Normal [facility] Comment on above: Performed By: #### C MP, T7, TSH, LIPID #### [facility] Laboratory [address] [place] [address] Dr. Ravin Dior TSHon 09-22-2022 TSH 2.085 uIU/mL Normal 0.358-3.740 [facility] Comment on above: Performed By: #### C MP, T7, TSH, LIPID #### [facility] Laboratory [address] [place] [address] ABD/PELVIS WO CONon [...] was used, including Automated Exposure Control. FINDINGS: Drop Pit Worker: No pertinent findings, which are not already [...] most superior hernia. Normal The [facility] CBC AUTO DIFFon 05-17-2022 BASO # 0.0 103/ul Normal 0.0-0.1 The [facility] Comment on above: Performed By: #### C BC ####[facility] [address] [place] [address]Dr. Ravin Dior Basophils/100 WBC (Bld) 0.2 % Normal 0.2-2.0 The [facility] Comment on above: Performed By: #### C BC ####[facility] [address] [place] [address]Dr. Ravin Dior EO # 0.1 103/ul Normal 0.0-0.7 The [facility] Comment on above: Performed By: #### C BC ####[facility] [address] [place] [address]Dr. Ravin Dior Eosinophils/100 WBC (Bld) 1.4 % Normal 0.9-7.0 The [facility] Comment on above: Performed By: #### C BC ####[facility] [address] [place] [address]Dr. Ravin Dior Erythrocyte distribution width (RBC) [Ratio] 13.7 % Normal 11.0-15.0 The [facility] Comment on above: Performed By: #### C BC ####[facility] [address] [place], [place] [address]Dr. Ravin Dior Hematocrit (Bld) [Volume fraction] 44.4 % Normal 36.0-48.0 The [facility] Comment on above: Performed By: #### C BC ####[facility] [address] [place] [address]Dr. Ravin Dior Hemoglobin (Bld) [Mass/Vol] 14.7 g/dL Normal 12.0-16.0 The [facility] Comment on above: Performed By: #### C BC ####[facility] [address] [place] [address]Dr. Ravin Dior IG # 0.05 10e3/ul Critically high 0.00-0.03 [facility] Comment on above: Performed By: #### C BC ####[facility] [address] [place] [address]Dr. Ravin Dior IG % 0.5 % Normal 0.0-0.5 The [facility] Comment on above: Performed By: #### C BC ####[facility] [address] [place] [id number]. Ravin Dior LYMPH # 1.7 103/ul Normal 1.2-3.8 The [facility] Comment on above: Performed By: #### C BC ####[facility] [address] [place] [id number]. Ravin Dior Lymphocytes/100 WBC (Bld) 17.1 % Critically low 20.5-60.0 The [facility] Comment on above: Performed By: #### C BC ####[facility] [address] [place] [id number]. Ravin Ovi MANUAL DIFF REQ NO Normal [facility] Comment on above: Performed By: #### C BC ####[facility] [address] [place] [id number]. Ravin Dior MCH (RBC) [Entitic mass] 30.7 pg Normal 26.7-34.0 The [facility] Comment on above: Performed By: #### C BC ####[facility] [address] [place] [id number]. Ravin Dior MCHC (RBC) [Mass/Vol] 33.1 g/dL Normal 29.9-35.2 The [facility] Comment on above: Performed By: #### C BC ####[facility] [address] [place] [id number]. Ravin Dior MCV (RBC) [Entitic vol] 92.7 fL Normal 81.0-99.0 The [facility] Comment on above: Performed By: #### C BC ####[facility] [address] [place] [id number]. Ravin Dior MONO # 0.6 103/ul Normal 0.3-0.8 The [facility] Comment on above: Performed By: #### C BC ####[facility] [address] [place] [id number]. Ravin Ovi Monocytes/100 WBC (Bld) 5.7 % Normal 1.7-12.0 The [facility] Comment on above: Performed By: #### C BC ####[facility] [address] [place] [id number]. Ravin Dior NEUT # 7.7 103/ul Critically high 1.4-6.5 [facility] Comment on above: Performed By: #### C BC ####[facility] [address] [place] [id number]. Ravin Dior Neutrophils/100 WBC (Bld) 75.1 % Critically high 43.0-75.0 The [facility] Comment on above: Performed By: #### C BC ####[facility] [address] [place] [id number]. Ravin Dior Platelet mean volume (Bld) [Entitic vol] 10.4 fL Normal 9.5-13.5 The [facility] Comment on above: Performed By: #### C BC ####[facility] [address] [place] [id number]. Ravin Dior PLT 294 103/ul Normal 150-450 The [facility] Comment on above: Performed By: #### C BC ####[facility] [address] [place] [id number]. Ravin Dior RBC 4.79 106/ul Normal 4.20-5.40 The [facility] Comment on above: Performed By: #### C BC ####[facility] [address] [place] [id number]. Ravin Dior WBC 10.2 103/ul Normal 4.0-11.0 The [facility] Comment on above: Performed By: #### C BC ####[facility] [address] [place] [id number] Dior ER URINE PROFILEon 2 Bilirubin Ql (U) Negative Normal NEGATIVE The [facility] Comment on above: Performed By: #### ALDA KAUFFMAN #### [facility] Laboratory [address] [address] [address] Ravin Dior Clarity (U) CLEAR Normal CLEAR The [facility] Comment on above: Performed By: #### ALDA KAUFFMAN #### [facility] Laboratory [address] [address] [address] Ravin Dior Color (U) LT. YELLOW Normal YELLOW The [facility] Comment on above: Performed By: #### Tammy SOUTH UMICRO #### [facility] Laboratory [address] [place] [address] Dr. Ravin PARKER A micrscopic examination will be performed if indicated. Normal The [facility] Comment on above: Performed By: #### E RUR UMICRO #### [facility] Laboratory [address] [place] [address] Dr. Ravin Dior Glucose Ql (U) Negative Normal NEGATIVE The [facility] Comment on above: Performed By: #### E NIKKIR UMICRO #### [facility] Laboratory [address] [place] [address] Dr. Ravin Dior Hemoglobin Ql (U) Negative Normal NEGATIVE [facility] Comment on above: Performed By: #### E RUNavin UMICRO #### [facility] Laboratory [address] [place] [address] Dr. Ravin Dior Ketones Ql (U) TRACE Abnormal NEGATIVE The [facility] Comment on above: Performed By: #### Tammy SOUTH UMICRO #### [facility] Laboratory [address] [place] [address] Dr. Ravin Dior LEUKOCYTES SMALL Abnormal NEGATIVE [facility] Comment on above: Performed By: #### Tammy SOUTH UMICRO #### [facility] Laboratory [address] [place] [address] Dr. Ravin Dior Nitrite Ql (U) Negative Normal NEGATIVE [facility] Comment on above: Performed By: #### Tammy SOUTH, UMICRO #### [facility] Laboratory [address] [place] [address] Dr. Ravin Dior pH (U) 6.0 [pH] Normal 5-9 The [facility] Comment on above: Performed By: #### E BRANNON, UMICRO #### [facility] Laboratory [address] [place] [address] Dr. Ravin Dior SPEC GRAVITY 1.010 Normal 1.005-<=1.025 [facility] Comment on above: Performed By: #### E BRANNON UMICRO #### [facility] Laboratory [address] [place] [address] Dr. Ravin Dior UA PROTEIN Negative Normal NEGATIVE/ TRACE The [facility] Comment on above: Performed By: #### E DENY SOUTHRO #### [facility] Laboratory [address] [address] [address] Ravin Dior UR MICRO IND INDICATED Normal [facility] Comment on above: Performed By: #### DENY KAUFFMANRO #### [facility] Laboratory [address] [place] [address] Dr. Ravin Dior Urobilinogen Qn (U) 0.2 {Chandler'U}/dL Normal 0.2 - 1. 0 [facility] Comment on above: Performed By: #### DENY KAUFFMANRO #### [facility] Laboratory [address] [place] [address] Dr. Ravin Dior LACTATE/LACTIC ACIDon 2021 Lactate [Moles/Vol] 1.3 mmol/L Normal 0.4-1.9 [facility] Comment on above: Performed By: #### L ACT ####[facility] [address] [place] [address]Dr. Ravin Dior LIPASEon 05-17-2022 Lipase [Catalytic activity/Vol] 63.0 U/L Critically low 73.0-393.0 [facility] Comment on above: Performed By: #### C ROGELIO LIPA #### [facility] Laboratory [address] [place] [address] Dr. Ravin Dior PROF 14(COMP METB)on 022 Albumin [Mass/Vol] 3.4 g/dL Normal 3.4-5.0 [facility] Comment on above: Performed By: #### C ROGELIO LIPA #### [facility] Laboratory [address] [place] [address] Dr. Ravin Dior Albumin/Globulin [Mass ratio] 0.8 {ratio} Normal [facility] Comment on above: Performed By: #### C ROGELIO LIPA #### [facility] Laboratory [address] [place] [address] Dr. Ravin Dior ALP [Catalytic activity/Vol] 143 U/L Critically high 46-116 [facility] Comment on above: Performed By: #### C MP, LIPA #### [facility] Laboratory [address] [place] [address] Dr. Ravin Dior ALT [Catalytic activity/Vol] 29 U/L Normal 14-59 [facility] Comment on above: Performed By: #### C MP, LIPA #### [facility] Laboratory [address] [place] [address] Dr. Ravin Dior Anion gap [Moles/Vol] 7.6 mmol/L Normal [facility] Comment on above: Performed By: #### C MP, LIPA #### [facility] Laboratory [address] [place] [address] Dr. Ravin Dior AST [Catalytic activity/Vol] 39 U/L Critically high 15-37 [facility] Comment on above: Performed By: #### C ROGELIO, LIPA #### [facility] Laboratory [address] [place] [address] Dr. Ravin Dior Bilirubin [Mass/Vol] 0.7 mg/dL Normal 0.2-1.0 [facility] Comment on above: Performed By: #### C ROGELIO, LIPA #### [facility] Laboratory [address] [place] [address] Dr. Ravin Dior Calcium [Mass/Vol] 9.1 mg/dL Normal 8.5-10.1 [facility] Comment on above: Performed By: #### C MP, LIPA #### [facility] Laboratory [address] [place] [address] Dr. Ravin Dior Chloride [Moles/Vol] 102 mmol/L Normal 98-107 [facility] Comment on above: Performed By: #### C MP, LIPA #### [facility] Laboratory [address] [place] [address] Dr. Ravin Dior CO2 [Moles/Vol] 31.1 mmol/L Normal 21.0-32.0 [facility] Comment on above: Performed By: #### C MP, LIPA #### [facility] Laboratory [address] [address] [address] Ravin Dior Creatinine [Mass/Vol] 0.88 mg/dL Normal 0.55-1.02 The [facility] Comment on above: Performed By: #### C MP, LIPA #### [facility] [address] [address] [address] Ravin Dior EGFR-AF MALIAN >60 Normal >=60 [facility] Comment on above: Performed By: #### C MP, LIPA #### [facility] Laboratory [address] [address] [address] Ravin Dior EGFR-NON AF MALIAN >60 Normal >=60 [facility] Comment on above: Performed By: #### C MP, LIPA #### [facility] Laboratory [address] [address] [address] Ravin Dior Globulin (S) [Mass/Vol] 4.5 g/dL Normal [facility] Comment on above: Performed By: #### C MP, LIPA #### [facility] Laboratory [address] [place] [address] Dr. Ravin Dior Glucose [Mass/Vol] 100 mg/dL Normal 74-106 [facility] Comment on above: Performed By: #### C MP, LIPA #### [facility] Laboratory [address] [place] [address] Dr. Ravin Dior Potassium [Moles/Vol] 3.7 mmol/L Normal 3.5-5.1 The [facility] Comment on above: Performed By: #### C MP, LIPA #### [facility] Laboratory [address] [place] [address] Dr. Ravin Dior Protein [Mass/Vol] 7.9 g/dL Normal 6.4-8.2 [facility] Comment on above: Performed By: #### C MP, LIPA #### [facility] [address] [address] [address] Ravin Dior Sodium [Moles/Vol] 137 mmol/L Normal 136-145 [facility] Comment on above: Performed By: #### C MP, LIPA #### [facility] Laboratory [address] [place] [address] Dr. Ravin Dior Urea nitrogen [Mass/Vol] 12.0 mg/dL Normal 7.0-18.0 The [facility] Comment on above: Performed By: #### C ROGELIO, LIPA #### [facility] Laboratory [address] [place] [address] Dr. Ravin Dior Urea nitrogen/Creatinine [Mass ratio] 13.6 mg/mg Normal The [facility] Comment on above: Performed By: #### C ROGELIO, LIPA #### [facility] Laboratory [address] [place] [address] Dr. Ravin Dior URINE MICROSCOPIC ONLYon BACTERIA NONE SEEN Normal NONE SEEN The [facility] Comment on above: Performed By: #### Tammy SOUTH UMICRO #### [facility] Laboratory [address] [place] [address] Dr. Ravin Dior Bacteria identified Cx Nom (U) NOT INDICATED Normal The [facility] Comment on above: Performed By: #### Tammy SOUTH UMICRO #### [facility] Laboratory [address] [place] [address] Dr. Ravin Dior CAST NONE SEEN Normal NONE SEEN The [facility] Comment on above: Performed By: #### Tammy SOUTH UMICRO #### [facility] Laboratory [address] [place] [address] Dr. Ravin Dior Crystals LM Nom (Urine sed) NONE SEEN Normal NONE SEEN The [facility] Comment on above: Performed By: #### Tammy SOUTH UMICRO #### [facility] Laboratory [address] [place] [address] Dr. Ravin Dior Epithelial cells LM Ql (Urine sed) FEW Abnormal NONE SEEN /RARE The [facility] Comment on above: Performed By: #### Tammy SOUTH UMICRO #### [facility] Laboratory [address] [place] [address] Dr. Ravin Dior MUCOUS NONE SEEN Normal NONE SEEN The [facility] Comment on above: Performed By: #### Tammy SOUTH UMICRO #### [facility] Laboratory [address] [place] [address] Dr. Ravin Dior RBC NONE SEEN Abnormal 0-2 [facility] Comment on above: Performed By: #### Tammy ALDA SOUTH #### [facility] Laboratory [address] [place], [place] [address] Dr. Ravin Dior WBC 0-2 Abnormal NONE SEEN [facility] Comment on above: Performed By: #### E ALDA SOUTH #### [facility] Laboratory [address] [place], [place] [address] Dr. Ravin Dior Ambulatory Clinical Summaryo n 07-24-2020 Ambulatory Clinical Summary {[id number]}CD:[id number] Normal [facility] Gastroenterology Office/Clin ic Noteon 07-24-2020 Gastroenterology [...] MD In 12 months [address] [place] [address]- Additional Instructions: Problem List/Past Medical History Ongoing [...] 12/16/2018 Exercise - Occasional exercise, 12/16/2018 Other Msbbtgav-3-8 cups blair;y, 12/16/2018 Substance Abuse - Denies Substance Abuse, 12/16/2018 Tobacco Never (less than 100 in lifetime) Tobacco Use:., 07/24/2020 Never (less than 100 in lifetime) Tobacco Use:. Never Smokeless Tobacco Use:., 02/01/2019 [facility] Comment on above: Result Comment: Elec tronically Signed By: Taylor Mccauley MD, Isabelle\.bernie\Date and Time Signed: 07/24/20 13:13 EST Auth for Release of Medical Recordson 02-09-2020 Auth for Release of Medical Records [id number] #[id number]:127 [facility] Patient Letter FTon 2019 Patient Letter [facility] January 24, 2020 RADHA GUTIÉRREZ [address] [place] [address] RADHA GUTIÉRREZ 1945 Dear Radha, This is a reminder that you are due for an appointment with Dr. Garland or Dr. Mccauley. Please call [facility] at [phone] to schedule an appointment at your earliest convenience. Thank you, [facility] Vital Signs Date Time Vital Sign Value Performing Clinician Faci lity 10-19-2024 13:15-0400 Body height 165.1 cm [facility] 10-19-2024 13:15-0400 Body mass index (BMI) [Ratio] 32.3 kg/m2 [facility] 10-19-2024 13:15-0400 Body temperature 97.5 [degF] [facility] 10-19-2024 13:15-0400 Body weight 88.11 kg [facility] 10-19-2024 13:15-0400 Diastolic blood pressure 64 mm[Hg] [facility] 10-19-2024 13:15-0400 Heart rate 75 /min [facility] 10-19-2024 13:15-0400 Respiratory rate 18 /min [facility] 10-19-2024 13:15-0400 SaO2% (BldA) [Mass fraction] 97 % [facility] 10-19-2024 13:15-0400 Systolic blood pressure 99 mm[Hg] [facility] 07-27-2024 10:30-0500 Diastolic blood pressure 68 mm[Hg] [facility] 07-27-2024 10:30-0500 Systolic blood pressure 96 mm[Hg] [facility] 07-27-2024 10:130500 Body height 165.1 cm [facility] 07-27-2024 10:130500 Body mass index (BMI) [Ratio] 31.3 kg/m2 [facility] 07-27-2024 10:130500 Body weight 85.33 kg [facility] 07-27-2024 10:130500 Heart rate 85 /min [facility] 07-27-2024 10:130500 Respiratory rate 16 /min [facility] 07-27-2024 10:130500 SaO2% (BldA) [Mass fraction] 98 % [facility] Encounters Encounter Date Encounter Type Care Provider Facility Start: 12-06-2024 ambulatory [facility] Start: 12-06-2024 ambulatory [facility] Start: 10-20-2024 ambulatory [facility] Start: 10-19-2024 End: 10-19-2024 ambulatory [facility] Work Phone: Start: 10-19-2024 End: 10-19-2024 Patient encounter procedure [facility] Kevin Work Phone: Start: 10-09-2024 Non-patient / Non-visit [facility] Work Phone: Start: 09-11-2024 ambulatory [facility] Start: 08-18-2024 End: 08-18-2024 ambulatory DANII SANCHEZ [facility] Start: 08-18-2024 Non-patient / Non-visit [facility] Work Phone: Start: 08-15-2024 ambulatory [facility] Start: 08-14-2024 End: 08-14-2024 ambulatory [facility] Start: 08-09-2024 ambulatory [facility] Start: 08-09-2024 Encounter for preprocedural cardiovascular examination [facility] Start: 07-27-2024 End: 07-27-2024 ambulatory [facility] Work Phone: Start: 07-27-2024 End: 07-27-2024 Patient encounter procedure [facility] Kevin Work Phone: Start: 07-11-2024 ambulatory [facility] Start: 06-15-2024 ambulatory [facility] Start: 05-22-2024 ambulatory [facility] Start: 05-18-2024 ambulatory [facility] Start: 05-16-2024 ambulatory [facility] Start: 05-15-2024 ambulatory [facility] Start: 05-04-2024 ambulatory [facility] Start: 04-20-2024 ambulatory [facility] Start: 03-27-2024 ambulatory [facility] Start: 03-21-2024 End: 03-21-2024 ambulatory [facility] Start: 03-17-2024 ambulatory [facility] Start: 02-08-2024 End: 02-08-2024 ambulatory [facility] Start: 01-18-2024 ambulatory [facility] Start: 01-17-2024 End: 01-17-2024 ambulatory CARIDAD GARNER Not Available Start: 01-11-2024 End: 01-11-2024 ambulatory SANDIE PAGE Not Available Start: 01-05-2024 ambulatory [facility] Start: 12-28-2023 End: 12-28-2023 Telephone encounter [facility] Start: 12-20-2023 End: 12-20-2023 ambulatory SANDIE PAGE Not Available Start: 12-16-2023 ambulatory [facility] Start: 12-06-2023 End: 12-06-2023 Refill [facility] Ten[facility] Comment on above: Med Refill Start: 11-11-2023 End: 11-11-2023 ambulatory OSWALDO GARCÍA Not Available Start: 09-10-2023 End: 09-10-2023 Refill Vickitej Erwin HANDLE TURNER-REGIONAL OPERATIONS MANAGER Work Phone: [facility] Comment on above: Med Refill Start: 06-11-2023 Refill Mike means MD Work Phone: [facility] Comment on above: Med Refill Start: 06-05-2023 Refill Vickitej horne HANDLE TURNER-REGIONAL OPERATIONS MANAGER Work Phone: [facility] Comment on [...] Author Start: 01-30-2024 Influenza vaccination Influenza Vacc [facility] Start: 08-25-2023 Adult BMI Screening Adult BMI Screen ing [facility] Start: 08-25-2023 Tobacco Screening Tobacco Screening [facility] Start: 01-29-2023 COVID-19 Vaccine ( season) COVID-19 Vaccine ( season) [facility] Start: 01-29-2023 Influenza vaccination Influenza Vacc ine [facility] Start: 11-03-2022 ambulatory Ambulatory Facility:H 1 Start: 2010 Fall Risk Screening Fall Risk Screen ing [facility] Start: 1995 Administration of varicella zoster vaccine Zoster (Shingles) Vacc[facility] ([facility] 2) [facility] Start: 1964 DTaP,Tdap and Td Vac cines (1 - Tdap) DTaP,Tdap and Td Vaccines (1 - Tdap) [facility] Start: 1963 Adult BMI Follow Up Plan Adult BMI Follow Up Plan [facility] Start: 1957 Depression Screening Depression Scre ening [facility] Start: 1945 Medicare Annual Well ness Visit [facility] End: 06-08-2024 Basic metabolic 2000 panel - Serum or Plasma Basic Metabolic Panel Lab Routine Essential hypertension 1 Occurrences starting 06/08/2023 until 06/08/2024 [facility] Work Phone: Comment on above: 1 Occurrences starti ng 06/08/2023 until 06/08/2024 Renal function 1999 panel - Serum or Plasma [facility] Renal function 1999 panel - Serum or Plasma [facility] US Kidney - bilateral Firela nds [facility] Immunizations Immunization Date Immunization Notes Care Provider Tutu rehman 05-08-2021 influenza virus vaccine, unspecified formulation Mac Erwin APRN-REGIONAL OPERATIONS MANAGER Work Phone: [facility] [employer] Payers Date Payer Category Payer Medicare HU[employer]NA MEDICARE [place] [id number] 2013-Present [phone] [address] [address] [place] [address] [id number] 1959 Medicare [id number] 1945 Unknown [id number] 1945 Unknown [id number] 1945 Unknown [id number] 1945 Unknown [id number] 1945 Unknown [id number] 1945 Unknown [id number] 1945 Unknown [id number] 1945 Unknown [id number] 1945 Unknown [id number] [id number] 1945 Unknown [id number] [id number] 1945 Unknown [id number] Medicare Medicare [id number] Social History Date Type Detail Facility Start: 05-26-2022 End: 10-19-2024 Tobacco smoking status NHIS Never smoked tobacco [facility] Start: 05-26-2022 Tobacco use and exposure Smoke less tobacco non-user [facility] Start: 08-24-2022 Alcohol intake Current non-dr 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 of alcohol (finding) [facility] Start: 07-04-2020 End: 08-24-2022 History of Social function [facility] Start: 07-04-2020 End: 08-24-2022 Tobacco use panel [facility] Housing Instability Unknown [facility] Start: 1945 Sex Assigned At Not on file P [facility] Start: 07-27-2024 End: 10-19-2024 Sex Female (finding) [facility] Start: 1945 Sex Assigned At Female F [facility] Medical Equipment Procedure Code Equipment Code Equipment Origin al Text Equipment Identifier Dates Mesh [id number] 3d Rect Plstr Clgn Symbotex 2 Sd Comp Mfl Babsr Rpl [id number] - [facility] - [id number] Start: 06-30-2022 Dev Clsr 30fr Watchman 30mm - [id number] Start: 10-28-2018 Clinical Notes 12-24-2021 to [...] Dr. Hines 2018, implantation of Biventricular ICD ([employer]) 07/05/2023, status post AV node ablation 11/01/[address] Madden. 08/18/2024 office visit: The patient was seen and evaluated in the office today. Overall, she reports feeling well. Abnormal kidney function was incidentally noted on presurgical labs for a planned back surgery, including a potassium of 5.8 and creatinine of 1.62. She has since established care with a fur cutting machine operator, whom she saw for the first [...] oral, Nightly sp (more content not included)... [facility] 03-21-2024 Note CO Electrophysiology Consult Note Reason for visit: Afib [...] GI bleed. She was previously seen by [facility] cardiology. She was initially seen [...] on file Intimate Partner Violence: Unknown (07/23/2023) [place] Safety & Environment Fear of Current or [...] mg tablet Ta (more content not included)... [facility] 02-14-2024 Note This report has been cancelled. [facility] 02-11-2024 Note RCRI= 2 points Class III Risk 10.1 % 30-day risk of , [place], or cardiac arrest From a cardiac perspective pt may proceed with planned surgery, she is a moderate risk for a moderate risk orthopedic surgery. She may hold Aspirin 5-7 days prior and resume post op. Please monitor hemodynamics carefully and prevent any major fluid shifts. Toya Sami [facility] Cardiology Available 7a-5pm via Head Held High Chat Pager [phone] [facility] 12-28-2023 Miscellaneous Notes Rec'd letter from patient stating that she no longer sees [facility], uses a doctor in [place]. documented in this encounter [facility] 12-28-2023 Telephone encounter Note Rec'd letter from patient stating that she no longer sees [facility], uses a doctor in [place]. [facility] 12-06-2023 Miscellaneous Notes Last OV 06/15/22.slm T/C to pt to sched [facility] f/u appt. No answer and mailbox is full. documented in this encounter [facility] 12-06-2023 Telephone encounter Note Last OV 06/15/22.slm [facility] 12-06-2023 Telephone encounter Note T/C to pt to sched [facility] f/u appt. No answer and mailbox is full. [facility] 09-10-2023 Miscellaneous Notes Please sign and route if you agree. Thank you HODAN 06/22/22 Pt needs annual appt schedule please, thank you. Letter mailed. LMOM for the patient to call and schedule their next appointment with [facility]. documented in this encounter [facility] 09-10-2023 Telephone encounter Note Please sign and route if you agree. Thank you HODAN 06/22/22 Pt needs annual appt schedule please, thank you. Letter mailed. [facility] 09-10-2023 Telephone encounter Note LMOM for the patient to call and schedule their next appointment with [facility]. [facility] 06-11-2023 Miscellaneous Notes Last OV 06/15/22, sent to [facility] front end ui developer for yearly visit to be scheduled. CMP 06/22/22. BMP ordered from refill encounter 06/08/23. Letter has been mailed, but will attempt to send letter via MC as last login was 05/07/23. documented in this encounter [facility] 06-11-2023 Telephone encounter Note Last OV 06/15/22, sent to [facility] front end ui developer for yearly visit to be scheduled. CMP 06/22/22. BMP ordered from refill encounter 06/08/23. Letter has been mailed, but will attempt to send letter via MC as last login was 05/07/23. [facility] 07-23-2022 Note PAIN MANAGEMENT CONS ULTATION [...] or sooner if needed. [facility] 03-26-2022 Note CONSULTATION CONSULTATION DATE: 03/26/2022 This [...] the plan of care. [facility] 12-24-2021 Note CONSULTATION PROCEDURE DATE: 12/24/2021 PREOPERATIVE [...] well with no complications. [facility] 12-24-2021 Note CONSULTATION CONSULTATION DATE: 12/24/2021 HISTORY [...] time, unless otherwise indicated. [facility] Evaluation note Diagnosis Essential hypertension- Primary Unspecified essential hypertension documented in this encounter [facility]* Diagnosis Chronic systolic CHF (congestive heart failure) ([facility]) documented in this encounter [facility]* Diagnosis Onset Date Resolution Status Admit Date Atrial fibrillation acute Febru sahil 2024 10:10am Chronic systolic (congestive ) heart failure acute July 27, 2 10:10am CKD (chronic kidney disease) stage 3, GFR 30-59 ml/min acute Februa ry 2024 10:10am Hyperlipidemia acute July 022024 10:10am Hypertensive chronic kidney disease with stage 1 through stage 4 chronic ki acute July 10:10am Iron deficiency acute July 27, 2024 10:10am [facility] Work Phone: Evaluation note* Diagnosis Onset [...] Iron deficiency acute October 19, 2024 12:46pm [facility] Work Phone: InstructionsNot on filedocumented in this encounter [facility] filedocument[facility]Not on filedocumented in this encounter [facility]ructionsNot on filedocumented in this encounter [facility] Summary Purpose Family History No [...] content) DATE CREATED AUTHOR 07/25/2020 [facility] DATE CREATED AUTHOR AUTHOR'S ORGANIZ ATION 10/12/2022 [facility] [place] [facility] DATE CREATED AUTHOR AUTHOR'S ORGANIZ ATION 01/17/2024 [facility] DATE CREATED AUTHOR AUTHOR'S ORGANIZ ATION 12/10/2024 [facility] Reason for Visit (unrecogniz ed section [...] Team Status: Inactive Member Role Status Dates AWNDA Rich Primary Care Provider Active Start: October 19, 2024 End: October 19, 2024 Juliana Landeros MD Attending Provider Active Start : October 19, 2024 End: October 19, 2024 Director Music Relationship Specialty Start Date End Date Heaven Staley APRN-CNP [address], [place] [address] PCP - General Family Medicine 10/30/21 Director Music Relationship Specialty Start Date End Date Heaven Staley APRN-CNP [address], [place] [address] PCP - General Family Medicine 10/30/21 Director Music Relationship Specialty Start Date End Date Heaven Staley APRN-CNP [address], [place] [address] PCP - General Family Medicine 10/30/21 Director Music Relationship Specialty Start Date End Date Heaven Staley APRN-REGIONAL OPERATIONS MANAGER [address] [place] [phone]98 PCP - General Family Medicine 10/30/21 Team Status: Inactive Member Role Status Dates Juliana Landeros MD Attending Provider Active Start : July 27, 2024 End: July 27, 2024 Heaven Staley NP-C Primary Care Pr ovider, Referring Provider Active [...] BE BASED ON THE PRIMARY CLINICAL RECORDS. [facility] Click With Me Now [facility]. provides no warranty or guarantee of the accuracy or completeness of information in this document.
[2024-12-11 10:37] VITALS: BP 108/67; PULSE 70; TEMP 36.3; O2SAT 98
[2024-12-11 11:16] VITALS: BP 119/74; PULSE 75; O2SAT 97
[2024-12-11] MEDS: LIDOCAINE HCL 2% 400 MG/20 ML MDV INJ (11:18)
[2024-12-11] MEDS: IOHEXOL 240 MG/ML - 10 ML VIAL INJ (11:18)
[2024-12-11] MEDS: METHYLPREDNISOLONE ACETATE 40 MG/ML VIAL INJ (11:18)
[2024-12-11] MEDS: BUPIVACAINE HCL 0.25% PF 25 MG/10 ML VIAL 2 ML INJ (11:18)
[2024-12-11 11:19] VITALS: BP 117/77; PULSE 77; O2SAT 98
--- NOTE | 2024-12-11 11:21 | W.PM.PROCNOT ---
Date of procedure: 12/11/24 Pre-op diagnosis: Pain due to right sacroiliitis Post-op diagnosis: same as pre-op Procedure: Procedure: Right sacroiliac joint injection Medications: Bupivacaine 0.25% 4cc, depomedrol 40mg After informed consent was obtained, the patient was brought to the medical procedure unit and placed in the prone position, when a timeout was completed verifying correct patient, procedure, site, positioning, implant, and/or special equipment.? The skin overlying the area was prepped and draped in standard sterile fashion using alcohol.? A 25-gauge needle was inserted towards the left sacroiliac joint under direct fluoroscopic imaging.? Needle tip was advanced until the joint was encountered.? We instilled a total of 2 mL of solution.? Postoperatively needles were removed.? The patient tolerated the procedure well without complication.? The patient reported reduction in pain symptoms postoperatively. Anesthesia: Local Surgeon: Florina Devlin Pathology: none sent Condition: stable Disposition: no change
== END 2024-12-11 11:22 | disposition home or self-care (01) ==
LOC: SURGOUT 10:03
PROVIDERS: PCP Nurse Practitioner Family; Visit Provider Anesthesiology
DX: M46.1 Sacroiliitis, not elsewhere classified (principal); M54.50 Low back pain, unspecified
CPT/HCPCS: 27096; J0665; J1010; Q9966

== ENCOUNTER 2024-12-28 09:29 | Outpatient (OUT) | payer MEDICARE, SELFPAY ==
--- OUTSIDE RECORDS SUMMARY | 2024-12-28 09:38 | XMS_ITS | CCD ---
Author Organization [facility] Care Team Providers Care Credit Union Examiner Name Role Phone JOHNSON ., DR JAYLON Ruelas Admitting Unavailable ORNELAS ., DR JAYLON Ruelas Attending Unavailable LUÍS, HEAVEN Primary Care Unavailable ORNELAS ., DR JAYLON Ruelas Consulting Unavailable MICHELINE MOLINA Consulting Unavailable JOHNSON ., DR JAYLON Ruelas Admitting Unavailable ORNELAS ., DR JAYLON Ruelas Attending Unavailable [facility] Primary Care Unavailable RODRIGUEZ ., SABRINA Consulting Unavailable ORNELAS ., DR JAYLON Ruelas Admitting Unavailable ORNELAS ., DR JAYLON Ruelas Attending Unavailable [facility] Primary Care Unavailable RODRIGUEZ ., SABRINA Consulting Unavailable [facility] Primary Care Unavailable LAKSHMIPATHY ., NARENDRANATH Admitting Charity vailable LAKSHMIPATHY ., NARENDRANATH Attending Charity vailable LAKSHMIPATHY ., NARENDRANATH Consulting Charity vailable LAKSHMIPATHY ., NARENDRANATH Admitting Charity vailable LAKSHMIPATHY ., NARENDRANATH Attending Charity vailable [facility] Primary Care Unavailable LUÍS, HEAVEN Admitting Unavailable HEAVEN STALEY Attending [facility]available [facility] Primary Care Unavailable DR OSWALDO VALENZUELA Consulting Unavailable HEAVEN STALEY Consulting Unavailable [facility], [facility] Primary Care Unavailable DAREK .KEILY Admitting [...] BIRD Referring Unavailable NAVID, BIRD Referring Unavailable Vaishaliitis Florina ROMO Attending Unavailable Allergies Allergy Classification Reported Allergen(s) Allergy Type Date of Onset Reaction(s) Facility (4 sources) Codeine; Translations: [CODEINE] Drug Allergy 06-06-2014 [facility] (5 sources) Codeine Drug Allergy 06-06-2014 [facility] (6 sources) Lisinopril; Translations: [LISINOPRIL] Drug Allergy 10-19-2014 [facility] (3 sources) pregabalin; Translations: [PREGABALIN] Drug Allergy 12-01-2023 [facility] Medications Current Medications Medication [...] Start: 07-27-2024 take 1 tablet by amanda once daily Calcium Carbonate 260 mg calcium [...] 30 tablet 1 06/08/2023 Active lactobacillus acidophilus [id number] unt oral capsule (5 sources) take 1 [...] disease (2 sources) Atherosclerotic heart disease of [place] coronary artery without angina pectoris; Translations: [Atherosclerotic heart disease of [place] coronary artery without angina pectoris] Onset: 08-18-2024 [...] Episodic Other aftercare (1 source) 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; Translations: [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 DRUG THERAPY] Onset: 05-19-2022 Episodic Other [...] width [Ratio] by Automated count High 11.0-15.0 [facility] Estimated glomerular filtrat ion rate (GFR) non- Americanon 10-09-2024 GFR/1.73 sq M.predicted among non-blacks MDRD (S/P/Bld) [Vol rate/Area] Estimated glomerular filtration rate (GFR) non- Low >=60 mL/min/1.73m 2 [facility] Hematocrit Auto (Bld) [Volum e fraction]on 10-09-2024 Hematocrit (Bld) [Volume fraction] Hematocrit [Volume Fraction] of Blood by Automated count Low 36.0-48.0 [facility] Hemoglobin [Mass/volume] in Bloodon 10-09-2024 Hemoglobin (Bld) [Mass/Vol] Hemoglobin [Mass/volume] in Blood Low 12.0-16.0 [facility] Iron binding capacity [Mass/ volume] in Serum or Plasmaon 10-09-2024 Iron binding capacity [Mass/Vol] Iron binding capacity [Mass/volume] in Serum or Plasma 250.0-450.0 [facility] Iron saturation [Mass Fracti on] in Serum or Plasmaon 10-09-2024 Iron saturation [Mass fraction] Iron saturation [Mass Fraction] in Serum or Plasma [facility] Laboratory - Chemistry and C hemistry - challengeon 10-09-2024 Albumin [Mass/Vol] 3.2 g/dL Low 3.4-5.0 [facility] Calcium [Mass/Vol] 8.9 mg/dL 8.5-10.1 [facility] Chloride [Moles/Vol] 105 mmol/L 98-107 [facility] CO2 [Moles/Vol] 28.4 mmol/L 21.0-32.0 [facility] [place] [facility] Creatinine [Mass/Vol] 1.33 mg/dL High 0.55-1.02 [facility] Ferritin [Mass/Vol] 13.0 ng/mL 8.0-252.0 [facility] GFR/1.73 sq M.predicted MDRD (S/P/Bld) [Vol rate/Area] 47 mL/min/{1.73_m2} Low >=60 mL/min/1.73m 2 [facility] Glucose [Mass/Vol] 85 mg/dL 74-106 [facility] Iron [Mass/Vol] 33.0 ug/dL Low 50.0-170.0 [facility] Magnesium [Mass/Vol] 2.1 mg/dL 1.8-2.4 [facility] Potassium [Moles/Vol] 4.6 mmol/L 3.5-5.1 [facility] Sodium [Moles/Vol] 139 mmol/L 136-145 [facility] Urate [Mass/Vol] 6.1 mg/dL High 2.6-6.0 [facility] [place] [facility] Urea nitrogen [Mass/Vol] 30.0 mg/dL High 7.0-18.0 [facility] Urea nitrogen/Creatinine [Mass ratio] 22.6 mg/mg [facility] Laboratory - Urinalysison Protein (U) [Mass/Vol] 15.7 mg/dL High <=11.9 [facility] Leukocytes [#/volume] correc halie for nucleated erythrocytes in Blood by Automated counon 10-09-2024 WBC corrected for nucl RBC Auto (Bld) [#/Vol] Leukocytes [#/volume] corrected for nucleated erythrocytes in Blood by Automated coun 4.0-11.0 [facility] MCH Auto (RBC) [Entitic mass ]on 10-09-2024 MCH (RBC) [Entitic mass] MCH [Entitic mass] by Automated count 26.7-34.0 [facility] MCHC Auto (RBC) [Mass/Vol]on 10-09-2024 MCHC (RBC) [Mass/Vol] MCHC [Mass/volume] by Automated count 29.9-35.2 [facility] MCV Auto (RBC) [Entitic vol] on 10-09-2024 MCV (RBC) [Entitic vol] MCV [Entitic volume] by Automated count 81.0-99.0 [facility] No Panel Informationon 10-09 25-Hydroxy Vitamin D Total 46.5 ng/mL [facility] Comment on above: <20 ng/mL Vit D defi cient20-<30 ng/mL Vit D [id number] ng/mL Vit D sufficient>100 ng/mL Potential Toxicity Parathyroid Hormone (Intact) 76 pg/mL Abnormal 15-65 [facility] Comment on above: Performed at: [employer] [facility] [employer] [address] [id number] Director: Ra Gonzalez PhD, Phone: [phone] Phosphorus Level 3.9 mg/dL 2.6-4.7 [facility] [place] [facility] Urine Random Creatinine 82.53 mg/dL 20.00-300.00 [facility] Platelet mean volume Auto (B ld) [Entitic vol]on 10-09-2024 Platelet mean volume (Bld) [Entitic vol] Platelet mean volume [Entitic volume] in Blood by Automated count 9.5-13.5 [facility] Platelets Auto (Bld) [#/Vol] on 10-09-2024 Platelets (Bld) [#/Vol] Platelets [#/volume] in Blood by Automated count 150-450 [facility] RBC Auto (Bld) [#/Vol]on RBC (Bld) [#/Vol] Erythrocytes [#/volume] in Blood by Automated count Low 4.20-5.40 [facility] Serum or plasma anion gap de terminationon 10-09-2024 Anion gap [Moles/Vol] Serum or plasma anion gap determination [facility] Urine protein/creatinine rat ioon 10-09-2024 Protein/Creatinine (U) [Ratio] Urine protein/creatinine ratio [facility] Erythrocyte distribution wid th Auto (RBC) [Ratio]on 08-18-2024 Erythrocyte distribution width (RBC) [Ratio] Erythrocyte distribution width [Ratio] by Automated count High 11.0-15.0 [facility] Estimated glomerular filtrat ion rate (GFR) non- Americanon 08-18-2024 GFR/1.73 sq M.predicted among non-blacks MDRD (S/P/Bld) [Vol rate/Area] Estimated glomerular filtration rate (GFR) non- Low >=60 mL/min/1.73m 2 [facility] Hematocrit Auto (Bld) [Volum e fraction]on 08-18-2024 Hematocrit (Bld) [Volume fraction] Hematocrit [Volume Fraction] of Blood by Automated count Low 36.0-48.0 [facility] Hemoglobin [Mass/volume] in Bloodon 08-18-2024 Hemoglobin (Bld) [Mass/Vol] Hemoglobin [Mass/volume] in Blood Low 12.0-16.0 [facility] Iron binding capacity [Mass/ volume] in Serum or Plasmaon 08-18-2024 Iron binding capacity [Mass/Vol] Iron binding capacity [Mass/volume] in Serum or Plasma 250.0-450.0 [facility] Iron saturation [Mass Fracti on] in Serum or Plasmaon 08-18-2024 Iron saturation [Mass fraction] Iron saturation [Mass Fraction] in Serum or Plasma [facility] Laboratory - Chemistry and C hemistry - challengeon 08-18-2024 Albumin [Mass/Vol] 3.4 g/dL 3.4-5.0 [facility] Calcium [Mass/Vol] 9.0 mg/dL 8.5-10.1 [facility] Chloride [Moles/Vol] 108 mmol/L High 98-107 [facility] CO2 [Moles/Vol] 26.5 mmol/L 21.0-32.0 [facility] [place] [facility] Creatinine [Mass/Vol] 1.36 mg/dL High 0.55-1.02 [facility] Ferritin [Mass/Vol] 17.0 ng/mL 8.0-252.0 [facility] GFR/1.73 sq M.predicted MDRD (S/P/Bld) [Vol rate/Area] 45 mL/min/{1.73_m2} Low >=60 mL/min/1.73m 2 [facility] Glucose [Mass/Vol] 96 mg/dL 74-106 [facility] Iron [Mass/Vol] 71.0 ug/dL 50.0-170.0 [facility] Magnesium [Mass/Vol] 2.4 mg/dL 1.8-2.4 [facility] Potassium [Moles/Vol] 4.7 mmol/L 3.5-5.1 [facility] Sodium [Moles/Vol] 140 mmol/L 136-145 [facility] Urate [Mass/Vol] 6.5 mg/dL High 2.6-6.0 [facility] [place] [facility] Urea nitrogen [Mass/Vol] 36.0 mg/dL High 7.0-18.0 [facility] Urea nitrogen/Creatinine [Mass ratio] 26.5 mg/mg [facility] Leukocytes [#/volume] correc halie for nucleated erythrocytes in Blood by Automated counon 08-18-2024 WBC corrected for nucl RBC Auto (Bld) [#/Vol] Leukocytes [#/volume] corrected for nucleated erythrocytes in Blood by Automated coun 4.0-11.0 [facility] MCH Auto (RBC) [Entitic mass ]on 08-18-2024 MCH (RBC) [Entitic mass] MCH [Entitic mass] by Automated count 26.7-34.0 [facility] MCHC Auto (RBC) [Mass/Vol]on 08-18-2024 MCHC (RBC) [Mass/Vol] MCHC [Mass/volume] by Automated count 29.9-35.2 [facility] MCV Auto (RBC) [Entitic vol] on 08-18-2024 MCV (RBC) [Entitic vol] MCV [Entitic volume] by Automated count 81.0-99.0 [facility] No Panel Informationon 08-18 25-Hydroxy Vitamin D Total 45.3 ng/mL [facility] Comment on above: <20 ng/mL Vit D defi cient20-<30 ng/mL Vit D axrgfzkxkwbt82-056 ng/mL Vit D sufficient>100 ng/mL Potential Toxicity Parathyroid Hormone (Intact) 106 pg/mL Abnormal 15-65 [facility] Comment on above: Performed at: [employer] [place] [id number] Director: Ra Gonzalez PhD, Phone: [phone] Phosphorus Level 3.7 mg/dL 2.6-4.7 [facility] [place] [facility] Urine Random Creatinine 36.44 mg/dL 20.00-300.00 [facility] Urine Random Total Protein <6.0 mg/dL <=11.9 [facility] Office Visiton 08-18-2024 Follow-up visit [id number] Radha Gutiérrez 1945 F Date Provider Department Center 08/18/2024 [id number] FREEDMAN MAGNUS Herrera [facility] Family History Problem Relation Age of Onset Heart failure Father Family Status - Relation Status Age at Father Level of Service:99124 [place] OFFICE/OUTPATIENT ESTABLISHED LOW MDM 20 MIN Normal [facility] Platelet mean volume Auto (B ld) [Entitic vol]on 08-18-2024 Platelet mean volume (Bld) [Entitic vol] Platelet mean volume [Entitic volume] in Blood by Automated count 9.5-13.5 [facility] Platelets Auto (Bld) [#/Vol] on 08-18-2024 Platelets (Bld) [#/Vol] Platelets [#/volume] in Blood by Automated count 150-450 [facility] RBC Auto (Bld) [#/Vol]on RBC (Bld) [#/Vol] Erythrocytes [#/volume] in Blood by Automated count Low 4.20-5.40 [facility] Serum or plasma anion gap de terminationon 08-18-2024 Anion gap [Moles/Vol] Serum or plasma anion gap determination [facility] Office Visiton 03-21-2024 Follow-up visit [id number] Radha Gutiérrez 1945 Provider Department [place] 03/21/2024 BIRD GEE MAGNUS [place] Family History Problem Relation Age of Onset Heart failure Father Family Status - Relation Status Age at Father Level of Service:05751 [place] OFFICE/OUTPATIENT ESTABLISHED LOW MDM 20 MIN [facility] 36on 02-11-2024 36 Tried to contact patient and she has no VM set up. Will try again on Wednesday. [facility] Documentationon 02-11-2024 Documentation [id number] Radha Gutiérrez 1945 Provider Department [place] 02/11/2024 TOYA VALENICA [facility] Family History Problem Relation Age of Onset Heart failure Father Family Status - Relation Status Age at Father [facility] 36on 02-08-2024 36 Patient had her [...] Dr. Madden until 03/21. Please advise. Thanks. [facility] Telephoneon 02-08-2024 Telephone [id number] Radha Gutiérrez 1945 Provider Department Center 02/08/2024 CARIDAD HENAO Family History Problem Relation Age of Onset Heart failure Father Family Status - Relation Status Age at Father [facility] INSULINon 09-23-2022 Insulin 7.9 uIU/mL Normal 2.6-24.9 [facility] Comment on above: Performed By: #### I NSULIN ####[facility] Db[address] [place], [place] [address]DrViky Dior CBC AUTO DIFFon 09-22-2022 BASO # 0.0 103/ul Normal 0.0-0.1 [facility] Comment on above: Performed By: #### C BC ####[facility] [address] [place], [place] [address]DrViky Dior Basophils/100 WBC (Bld) 0.4 % Normal 0.2-2.0 [facility] Comment on above: Performed By: #### C BC ####[facility] [address] [place], [place] [address]DrViky Dior EO # 0.6 103/ul Normal 0.0-0.7 [facility] Comment on above: Performed By: #### C BC ####[facility] [address]rey[address] [place], [place] [address]DrViky Dior Eosinophils/100 WBC (Bld) 6.6 % Normal 0.9-7.0 [facility] Comment on above: Performed By: #### C BC ####[facility] [address] [place], [place] [address]DrViky Dior Erythrocyte distribution width (RBC) [Ratio] 16.2 % Critically high 11.0-15.0 [facility] Comment on above: Performed By: #### C BC ####[facility] [address] [place], [place] [address]DrViky Dior Hematocrit (Bld) [Volume fraction] 43.3 % Normal 36.0-48.0 [facility] Comment on above: Performed By: #### C BC ####[facility] [address] [place], [place] [address]DrViky Dior Hemoglobin (Bld) [Mass/Vol] 13.4 g/dL Normal 12.0-16.0 [facility] Comment on above: Performed By: #### C BC ####[facility] [address] [place], [place] [address]DrViky Dior IG # 0.05 10e3/ul Critically high 0.00-0.03 [facility] Comment on above: Performed By: #### C BC ####[facility] [address] [place] [address]DrViky Dior IG % 0.5 % Normal 0.0-0.5 [facility] Comment on above: Performed By: #### C BC ####[facility] [address] [place] [address]DrViky Dior LYMPH # 2.1 103/ul Normal 1.2-3.8 [facility] Comment on above: Performed By: #### C BC ####[facility] [address] [place] [address]DrViky Dior Lymphocytes/100 WBC (Bld) 23.1 % Normal 20.5-60.0 [facility] Comment on above: Performed By: #### C BC ####[facility] [address] [place] [address]DrViky Dior MANUAL DIFF REQ NO Normal [facility] Comment on above: Performed By: #### C BC ####[facility] [address] [place] [address]DrViky Dior MCH (RBC) [Entitic mass] 29.5 pg Normal 26.7-34.0 [facility] Comment on above: Performed By: #### C BC ####[facility] [address]cs[address] [place] [address]DrViky Dior MCHC (RBC) [Mass/Vol] 30.9 g/dL Normal 29.9-35.2 [facility] Comment on above: Performed By: #### C BC ####[facility] [address] [place] [address]DrViky Dior MCV (RBC) [Entitic vol] 95.4 fL Normal 81.0-99.0 [facility] Comment on above: Performed By: #### C BC ####[facility] [address] [place], [place] [address]DrViky Dior MONO # 0.5 103/ul Normal 0.3-0.8 [facility] Comment on above: Performed By: #### C BC ####[facility] [address] [place] [address]Dr. Ravni Dior Monocytes/100 WBC (Bld) 5.8 % Normal 1.7-12.0 [facility] Comment on above: Performed By: #### C BC ####[facility] [address] [place] [address]Dr. Ravin Dior NEUT # 5.8 103/ul Normal 1.4-6.5 [facility] Comment on above: Performed By: #### C BC ####[facility] [address] [place] [address]Dr. Ravin Dior Neutrophils/100 WBC (Bld) 63.6 % Normal 43.0-75.0 [facility] Comment on above: Performed By: #### C BC ####[facility] [address] [place], [place] [address]Dr. Ravin Dior Platelet mean volume (Bld) [Entitic vol] 10.7 fL Normal 9.5-13.5 [facility] Comment on above: Performed By: #### C BC ####[facility] [address] [place], [place] [address]Dr. Ravin Dior PLT 223 103/ul Normal 150-450 [facility] Comment on above: Performed By: #### C BC ####[facility] [address] [place], [place] [address]Dr. Ravin Dior RBC 4.54 106/ul Normal 4.20-5.40 [facility] Comment on above: Performed By: #### C BC ####[facility] [address] [place] [id number]. Ravin Dior WBC 9.2 103/ul Normal 4.0-11.0 [facility] Comment on above: Performed By: #### C BC ####[facility] [address] [place] [id number]. Ravin Dior FREE THYROXINE INDEX T7on FTI 2.44 Normal 1.30-4.50 [facility] Comment on above: Performed By: #### C MP, T7, TSH, LIPID #### [facility] [address] [place] [address] [address] Ravin Dior T3U 33.0 % Normal 30.0-39.0 [facility] Comment on above: Performed By: #### C MP, T7, TSH, LIPID #### [facility] [address] [place] [address] [address] Ravin Dior T4 [Mass/Vol] 7.40 ug/dL Normal 4.80-13.90 [facility] Comment on above: Performed By: #### C MP, T7, TSH, LIPID #### [facility] [address] [place] [address] [address] Ravin Dior GLYCOHEMOGLOBIN A1Con 2022 ADA RECOMMENDATION SEE BELOW Normal [facility] Comment on above: Result Comment: ADA RECOMMENDED LIMIT 4.0 - 6.0 ADA THERAPEUTIC TARGET < 7.0 ACTION SUGGESTED > 7.0 Performed By: #### A 1C ####[facility] [address] [place] [address]DrViky Dior Glucose [Mass/Vol] 105 mg/dL Normal [facility] Comment on above: Performed By: #### A 1C ####[facility] [address] [place], [place] [address]IpViky Dior HbA1c (Bld) [Mass fraction] 5.3 % Normal 4.5-6.2 [facility] Comment on above: Performed By: #### A 1C ####[facility] [address] [place] [id number] Dior IRONon 09-22-2022 Iron [Mass/Vol] 81.0 ug/dL Normal 50.0-170.0 [facility] Comment on above: Performed By: #### I SEAMUS ####[facility] [address] [place] [phone] Diro LIPID PROFILEon 09-22-2022 CHOL-HDL RATIO NORM SEE BELOW Normal [facility] Comment on above: Result Comment: 3.3 - 4.4 LOW RISK 4.4 - 7.1 AVERAGE RISK 7.1 - 11.0 MODERATE RISK >11.0 HIGH RISK Performed By: #### C MP, T7, TSH, LIPID ####[facility] [address] [place] [id number]. Ravin Dior Cholesterol [Mass/Vol] 159 mg/dL Normal <=200 [facility] Comment on above: Performed By: #### C MP, T7, TSH, LIPID ####[facility] [address] [place] [id number]. Novalan Dior Cholesterol in HDL [Mass/Vol] 47 mg/dL Normal 40-60 [facility] Comment on above: Performed By: #### C MP, T7, TSH, LIPID ####[facility] [address] [place] [id number]. Novalan Dior Cholesterol in LDL [Mass/Vol] 96.4 mg/dL Normal [facility] Comment on above: Performed By: #### C MP, T7, TSH, LIPID ####[facility] [address] [place] [id number]. Ravin Dior Cholesterol.total/Cho lesterol in HDL [Mass ratio] 3.4 {ratio} Normal [facility] Comment on above: Performed By: #### C MP, T7, TSH, LIPID ####[facility] [address] [place] [id number]. Novalan Dior HDL NORMAL > or = 60 mg/dl - LOW CARDIOVASCULAR RISK <40 mg/dl - HIGH CARDIOVASCULAR RISK Normal [facility] Comment on above: Performed By: #### C MP, T7, TSH, LIPID ####[facility] Rs[address] [place] [phone]. Novalan Dior LDL CALC NORMAL SEE BELOW Normal [facility] Comment on above: Result Comment: <100 mg/dl OPTIMAL 100 - 129 mg/dl NEAR OR ABOVE OPTIMAL 130 - 159 mg/dl BORDERLINE HIGH 160 - 189 mg/dl HIGH >190 mg/dl VERY HIGH Performed By: #### C MP, T7, TSH, LIPID ####[facility] [address] [place], [place] [address]Is. Ravin Dior Triglyceride [Mass/Vol] 78 mg/dL Normal <=150 [facility] Comment on above: Performed By: #### C MP, T7, TSH, LIPID ####[facility] [address] [place], [place] [address]Vr. Ravin Dior VLDL CALC 15.6 mg/dL Normal [facility] Comment on above: Performed By: #### C MP, T7, TSH, LIPID ####[facility] [address] [place], [place] [address]Hw. Ravin Dior MG MAMM SCREEN 3D NIKOS CADon 09-22-2022 MG MAMM SCREEN 3D NIKOS CAD Patient: RADHA GUTIÉRREZ Exam Date: 09/22/2022 : 1945 Gender:F Ordering : [facility] Admission #: [id number] Family : Order #: [id number] CLICK HERE TO VIEW EXAM RADIOLOGY REPORT [...] Treatments None Family Cancers None LOCATION: [facility] BREAST COMPOSITION: Almost entirely fatty. [...] M.D. on 09/22/2022 at 17:02 Normal [facility] PROF 14(COMP METB)on 023 Albumin [Mass/Vol] 3.3 g/dL Critically low 3.4-5.0 [facility] Comment on above: Performed By: #### C MP, T7, TSH, LIPID #### [facility] [address] [place] [address] Dr. Ravin Dior Albumin/Globulin [Mass ratio] 0.7 {ratio} Normal [facility] Comment on above: Performed By: #### C MP, T7, TSH, LIPID #### [facility] [address] [place] [address] Dr. Ravin Dior ALP [Catalytic activity/Vol] 207 U/L Critically high 46-116 [facility] Comment on above: Performed By: #### C MP, T7, TSH, LIPID #### [facility] [address] [place] [address] Dr. Ravin Dior ALT [Catalytic activity/Vol] 47 U/L Normal 14-59 [facility] Comment on above: Performed By: #### C MP, T7, TSH, LIPID #### [facility] [address] [place] [address] Dr. Ravin Dior Anion gap [Moles/Vol] 11.5 mmol/L Normal [facility] Comment on above: Performed By: #### C MP, T7, TSH, LIPID #### [facility] [address] [place] [address] Dr. Ravin Dior AST [Catalytic activity/Vol] 35 U/L Normal 15-37 [facility] Comment on above: Performed By: #### C MP, T7, TSH, LIPID #### [facility] [address] [place] [address] Dr. Ravin Dior Bilirubin [Mass/Vol] 0.6 mg/dL Normal 0.2-1.0 [facility] Comment on above: Performed By: #### C MP, T7, TSH, LIPID #### [facility] [address] [place] [address] Dr. Ravin Dior Calcium [Mass/Vol] 9.2 mg/dL Normal 8.5-10.1 [facility] Comment on above: Performed By: #### C MP, T7, TSH, LIPID #### [facility] [address] [address] [address] Ravin Dior Chloride [Moles/Vol] 109 mmol/L Critically high 98-107 [facility] Comment on above: Performed By: #### C MP, T7, TSH, LIPID #### [facility] [address] [address] [address] Ravin Dior CO2 [Moles/Vol] 27.7 mmol/L Normal 21.0-32.0 [facility] Comment on above: Performed By: #### C MP, T7, TSH, LIPID #### [facility] [address] [address] [address] Ravin Dior Creatinine [Mass/Vol] 0.94 mg/dL Normal 0.55-1.02 [facility] Comment on above: Performed By: #### C MP, T7, TSH, LIPID #### [facility] [address] [address] [address] Ravin Dior EGFR-AF AUSTRALIAN >60 Normal >=60 [facility] Comment on above: Performed By: #### C MP, T7, TSH, LIPID #### [facility] [address] [address] [address] Ravin Dior EGFR-NON AF AUSTRALIAN 58 mL/min/1.73m2 Critically low >=60 [facility] Comment on above: Performed By: #### C MP, T7, TSH, LIPID #### [facility] [address] [address] [address] Ravin Dior Globulin (S) [Mass/Vol] 4.7 g/dL Normal [facility] Comment on above: Performed By: #### C MP, T7, TSH, LIPID #### [facility] [address] [address] [address] Ravin Dior Glucose [Mass/Vol] 95 mg/dL Normal 74-106 [facility] Comment on above: Performed By: #### C MP, T7, TSH, LIPID #### [facility] [address] [address] [address] Ravin Dior Potassium [Moles/Vol] 4.2 mmol/L Normal 3.5-5.1 [facility] Comment on above: Performed By: #### C MP, T7, TSH, LIPID #### [facility] [address] [address] [address] Ravin Dior Protein [Mass/Vol] 8.0 g/dL Normal 6.4-8.[address] [facility] Comment on above: Performed By: #### C MP, T7, TSH, LIPID #### [facility] [address] [place] [address] Dr. Ravin Dior Sodium [Moles/Vol] 144 mmol/L Normal 136-[address] [facility] Comment on above: Performed By: #### C MP, T7, TSH, LIPID #### [facility] [address] [place] [address] Dr. Ravin Dior Urea nitrogen [Mass/Vol] 21.0 mg/dL Critically high 7.0-18.0 [facility] Comment on above: Performed By: #### C MP, T7, TSH, LIPID #### [facility] [address] [place] [address] Dr. Ravin Dior Urea nitrogen/Creatinine [Mass ratio] 22.3 mg/mg Normal [facility] Comment on above: Performed By: #### C MP, T7, TSH, LIPID #### [facility] [address] [place] [address] Dr. Ravin Dior TSHon 09-22-2022 TSH 2.085 uIU/mL Normal 0.358-3.740 [facility] Comment on above: Performed By: #### C MP, T7, TSH, LIPID #### [facility] [address] [place] [address] ABD/PELVIS WO CONon [...] was used, including Automated Exposure Control. 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 Normal The [facility] CBC AUTO DIFFon 05-17-2022 BASO # 0.0 103/ul Normal 0.0-0.1 [facility] Comment on above: Performed By: #### C BC ####[facility] [address] [id number]. Ravin Dior Basophils/100 WBC (Bld) 0.2 % Normal 0.2-2.0 [facility] Comment on above: Performed By: #### C BC ####[facility] [address] [place], [place] [id number]. Ravin Dior EO # 0.1 103/ul Normal 0.0-0.7 [facility] Comment on above: Performed By: #### C BC ####[facility] [address] [place], [place] [address]Dr. Ravin Dior Eosinophils/100 WBC (Bld) 1.4 % Normal 0.9-7.0 [facility] Comment on above: Performed By: #### C BC ####[facility] [address] [place], [place] [address]Dr. Ravin Dior Erythrocyte distribution width (RBC) [Ratio] 13.7 % Normal 11.0-15.0 [facility] Comment on above: Performed By: #### C BC ####[facility] [address] [place], [place] [address]Dr. Ravin Dior Hematocrit (Bld) [Volume fraction] 44.4 % Normal 36.0-48.0 [facility] Comment on above: Performed By: #### C BC ####[facility] [address] [place], [place] [address]Dr. Ravin Dior Hemoglobin (Bld) [Mass/Vol] 14.7 g/dL Normal 12.0-16.0 [facility] Comment on above: Performed By: #### C BC ####[facility] [address] [place], [place] [address]Dr. Ravin Dior IG # 0.05 10e3/ul Critically high 0.00-0.03 [facility] Comment on above: Performed By: #### C BC ####[facility] [address] [place], [place] [address]Dr. Ravin Dior IG % 0.5 % Normal 0.0-0.5 [facility] Comment on above: Performed By: #### C BC ####[facility] [address] [id number]. Ravin Dior LYMPH # 1.7 103/ul Normal 1.2-3.8 [facility] Comment on above: Performed By: #### C BC ####[facility] [address] [id number]. Ravin Dior Lymphocytes/100 WBC (Bld) 17.1 % Critically low 20.5-60.0 [facility] Comment on above: Performed By: #### C BC ####[facility] [address] [id number]. Ravin Dior MANUAL DIFF REQ NO Normal [facility] Comment on above: Performed By: #### C BC ####[facility] [address] [id number]. Ravin Ovi MCH (RBC) [Entitic mass] 30.7 pg Normal 26.7-34.0 [facility] Comment on above: Performed By: #### C BC ####[facility] [address] [id number]. Ravin Dior MCHC (RBC) [Mass/Vol] 33.1 g/dL Normal 29.9-35.2 [facility] Comment on above: Performed By: #### C BC ####[facility] [address] [id number]. Ravin Ovi MCV (RBC) [Entitic vol] 92.7 fL Normal 81.0-99.0 [facility] Comment on above: Performed By: #### C BC ####[facility] [address] [id number]. Ravin Dior MONO # 0.6 103/ul Normal 0.3-0.8 [facility] Comment on above: Performed By: #### C BC ####[facility] [address] [id number]. Ravin Ovi Monocytes/100 WBC (Bld) 5.7 % Normal 1.7-12.0 [facility] Comment on above: Performed By: #### C BC ####[facility] [address] [id number]. Ravin Dior NEUT # 7.7 103/ul Critically high 1.4-6.5 [facility] Comment on above: Performed By: #### C BC ####[facility] [address] [id number]. Ravin Dior Neutrophils/100 WBC (Bld) 75.1 % Critically high 43.0-75.0 [facility] Comment on above: Performed By: #### C BC ####[facility] [address] [id number]. Ravin Dior Platelet mean volume (Bld) [Entitic vol] 10.4 fL Normal 9.5-13.5 [facility] Comment on above: Performed By: #### C BC ####[facility] [address] [address]Dr. Ravin Dior PLT 294 103/ul Normal 150-450 [facility] Comment on above: Performed By: #### C BC ####[facility] [address] [id number]. Ravin Dior RBC 4.79 106/ul Normal 4.20-5.40 [facility] Comment on above: Performed By: #### C BC ####[facility] [address] [id number]. Ravin Dior WBC 10.2 103/ul Normal 4.0-11.0 [facility] Comment on above: Performed By: #### C BC ####[facility] [address] [id number]. Novalilliana Ovi ER URINE PROFILEon 2 Bilirubin Ql (U) Negative Normal NEGATIVE [facility] Comment on above: Performed By: #### ALDA KAUFFMAN #### [facility] [address] [place], [place] [address] Dr. Ravin Dior Clarity (U) CLEAR Normal CLEAR [facility] Comment on above: Performed By: #### ALDA KAUFFMAN #### [facility] [address] [place] [address] Dr. Ravin Dior Color (U) LT. YELLOW Normal YELLOW [facility] Comment on above: Performed By: #### DENY KAUFFMANRO #### [facility] [address] [place] [address] Dr. Ravin PARKER A micrscopic examination will be performed if indicated. Normal [facility] Comment on above: Performed By: #### DENY KAUFFMANRO #### [facility] [address] [place] [address] Dr. Ravin Dior Glucose Ql (U) Negative Normal NEGATIVE [facility] Comment on above: Performed By: #### DENY KAUFFMANRO #### [facility] [address] [place] [address] Dr. Ravin Dior Hemoglobin Ql (U) Negative Normal NEGATIVE [facility] Comment on above: Performed By: #### DENY KAUFFMANRO #### [facility] [address] [place] [address] Dr. Ravin Dior Ketones Ql (U) TRACE Abnormal NEGATIVE The [facility] Comment on above: Performed By: #### DENY KAUFFMANRO #### [facility] [address] [place] [address] Dr. Ravin Dior LEUKOCYTES SMALL Abnormal NEGATIVE [facility] Comment on above: Performed By: #### DENY KAUFFMANRO #### [facility] [address] [place] [address] Dr. Ravin Dior Nitrite Ql (U) Negative Normal NEGATIVE [facility] Comment on above: Performed By: #### DENY KAUFFMANRO #### [facility] [address] [place] [address] Dr. Ravin Dior pH (U) 6.0 [pH] Normal 5-9 [facility] Comment on above: Performed By: #### DENY KAUFFMANRO #### [facility] [address] [place] [address] Dr. Ravin Dior SPEC GRAVITY 1.010 Normal 1.005-<=1.025 [facility] Comment on above: Performed By: #### E BRANNON, UMICRO #### [facility] [address] [address] [address] Ravin Dior UA PROTEIN Negative Normal NEGATIVE/ TRACE [facility] Comment on above: Performed By: #### E BRANNON, UMICRO #### [facility] [address] [address] [address] Ravin Dior UR MICRO IND INDICATED Normal [facility] Comment on above: Performed By: #### E BRANNON, UMICRO #### [facility] [address] [address] [address] Ravin Dior Urobilinogen Qn (U) 0.2 {Chandler'U}/dL Normal 0.2 - 1. 0 [facility] Comment on above: Performed By: #### E BRANNON, DENYRO #### [facility] [address] [place] [address] Dr. Ravin Dior LACTATE/LACTIC ACIDon 2021 Lactate [Moles/Vol] 1.3 mmol/L Normal 0.4-1.[address] [facility] Comment on above: Performed By: #### L ACT ####[facility] [address] [address]Dr. Ravin Dior LIPASEon 05-17-2022 Lipase [Catalytic activity/Vol] 63.0 U/L Critically low 73.0-393.0 [facility] Comment on above: Performed By: #### C MP, LIPA #### [facility] [address] [place] [address] Dr. Ravin Dior PROF 14(COMP METB)on 022 Albumin [Mass/Vol] 3.4 g/dL Normal 3.4-5.0 [facility] Comment on above: Performed By: #### C MP, LIPA #### [facility] [address] [place] [address] Dr. Ravin Dior Albumin/Globulin [Mass ratio] 0.8 {ratio} Normal [facility] Comment on above: Performed By: #### C MP, LIPA #### [facility] [address] [address] [address] Ravin Dior ALP [Catalytic activity/Vol] 143 U/L Critically high 46-116 [facility] Comment on above: Performed By: #### C MP, LIPA #### [facility] [address] [address] [address] Ravin Dior ALT [Catalytic activity/Vol] 29 U/L Normal 14-59 [facility] Comment on above: Performed By: #### C MP, LIPA #### [facility] [address] [address] [address] Ravin Dior Anion gap [Moles/Vol] 7.6 mmol/L Normal [facility] Comment on above: Performed By: #### C MP, LIPA #### [facility] [address] [address] [address] Ravin Dior AST [Catalytic activity/Vol] 39 U/L Critically high 15-37 [facility] Comment on above: Performed By: #### C MP, LIPA #### [facility] [address] [address] [address] Ravin Dior Bilirubin [Mass/Vol] 0.7 mg/dL Normal 0.2-1.0 [facility] Comment on above: Performed By: #### C MP, LIPA #### [facility] [address] [address] [address] Ravin Dior Calcium [Mass/Vol] 9.1 mg/dL Normal 8.5-10.1 [facility] Comment on above: Performed By: #### C MP, LIPA #### [facility] [address] [address] [address] Ravin Dior Chloride [Moles/Vol] 102 mmol/L Normal 98-107 [facility] Comment on above: Performed By: #### C MP, LIPA #### [facility] [address] [address] [address] Ravin Dior CO2 [Moles/Vol] 31.1 mmol/L Normal 21.0-32.0 [facility] Comment on above: Performed By: #### C MP, LIPA #### [facility] [address] [address] [address] Ravin Dior Creatinine [Mass/Vol] 0.88 mg/dL Normal 0.55-1.02 [facility] Comment on above: Performed By: #### C MP, LIPA #### [facility] [address] [address] [address] Ravin Dior EGFR-AF AUSTRALIAN >60 Normal >=60 [facility] Comment on above: Performed By: #### C MP, LIPA #### [facility] [address] [address] [address] Ravin Dior EGFR-NON AF AUSTRALIAN >60 Normal >=60 [facility] Comment on above: Performed By: #### C MP, LIPA #### [facility] [address] [address] [address] Ravin Dior Globulin (S) [Mass/Vol] 4.5 g/dL Normal [facility] Comment on above: Performed By: #### C MP, LIPA #### [facility] [address] [address] [address] Ravin Dior Glucose [Mass/Vol] 100 mg/dL Normal 74-[address] [facility] Comment on above: Performed By: #### C MP, LIPA #### [facility] [address] [address] [address] Ravin Dior Potassium [Moles/Vol] 3.7 mmol/L Normal 3.5-5.1 [facility] Comment on above: Performed By: #### C MP, LIPA #### [facility] [address] [address] [address] Ravin Dior Protein [Mass/Vol] 7.9 g/dL Normal 6.4-8.[address] [facility] Comment on above: Performed By: #### C MP, LIPA #### [facility] [address] [address] [address] Ravin Dior Sodium [Moles/Vol] 137 mmol/L Normal 136-[address] [facility] Comment on above: Performed By: #### C MP, LIPA #### [facility] [address] [place] [address] Dr. Ravin Dior Urea nitrogen [Mass/Vol] 12.0 mg/dL Normal 7.0-18.0 [facility] Comment on above: Performed By: #### C MP, LIPA #### [facility] [address] [place] [address] Dr. Ravin Dior Urea nitrogen/Creatinine [Mass ratio] 13.6 mg/mg Normal [facility] Comment on above: Performed By: #### C MP, LIPA #### [facility] [address] [place] [address] Dr. Ravin Dior URINE MICROSCOPIC ONLYon BACTERIA NONE SEEN Normal NONE SEEN [facility] Comment on above: Performed By: #### Tammy SOUTH, UMICRO #### [facility] [address] [place] [address] Dr. Ravin Dior Bacteria identified Cx Nom (U) NOT INDICATED Normal [facility] Comment on above: Performed By: #### Tammy RUNavin, UMICRO #### [facility] [address] [place] [address] Dr. Ravin Dior CAST NONE SEEN Normal NONE SEEN [facility] Comment on above: Performed By: #### E BRANNON, UMICRO #### [facility] [address] [place] [address] Dr. Ravin Dior Crystals LM Nom (Urine sed) NONE SEEN Normal NONE SEEN [facility] Comment on above: Performed By: #### E RUR, UMICRO #### [facility] [address] [place] [address] Dr. Ravin Dior Epithelial cells LM Ql (Urine sed) FEW Abnormal NONE SEEN /RARE [facility] Comment on above: Performed By: #### E RUR, UMICRO #### [facility] [address] [place] [address] Dr. Ravin Dior MUCOUS NONE SEEN Normal NONE SEEN [facility] Comment on above: Performed By: #### E BRANNON, UMICRO #### [facility] [address] [place] [address] Dr. Ravin Dior RBC NONE SEEN Abnormal 0-2 [facility] Comment on above: Performed By: #### ALDA KAUFFMAN #### [facility] [address] [address] [address] Ravin Dior WBC 0-2 Abnormal NONE SEEN [facility] Comment on above: Performed By: #### ALDA KAUFFMAN #### [facility] [address] [address] [address] Ravin Dior Ambulatory Clinical Summaryo n 07-24-2020 Ambulatory Clinical Summary {[id number] Normal [facility] G[facility]enterology Office/Clin ic Noteon 07-24-2020 [...] course, # 28 cap(s), Refills(s) 0, Pharmacy: [facility]/pharmacy #[id number], 165, cm, 07/24/20 12:03:00 EST, Height/Length Dosing, 95.9, kg, 07/24/20 12:03:00 EST, Weight Dosing metronidazole, 250 mg = 1 tab(s), Oral, TID, X 7 day(s), # 21 tab(s), Refills(s) 0, Pharmacy: [facility]/pharmacy #[id number], 165, cm, 07/24/20 12:03:00 EST, [...] water, # 160 cap(s), Refills(s) 1, Pharmacy: [facility]/pharmacy #[id number], 165, cm, 07/24/20 12:03:00 EST, Height/Length Dosing, 95.9, kg, 07/24/20 12:03:... Orders: pantoprazole, 40 mg = 2 tab(s), Oral, Daily, X 90 day(s), # 180 tab(s), Refills(s) 3, Pharmacy: [facility]/pharmacy #[id number], 165, cm, 07/24/20 12:03:00 EST, Height/Length Dosing, 95.9, kg, 07/24/20 12:03:00 EST, Weight Dosing Follow-up With When Contact Information Isabelle Ramirez MD In 12 months [address], [place] [address]- Additional Instructions: Problem List/Past Medical History Ongoing [...] 12/16/2018 Exercise - Occasional exercise, 12/16/2018 Other Yzvbqqtb-3-6 cups blair;y, 12/16/2018 Substance Abuse - Denies Substance Abuse, 12/16/2018 Tobacco Never (less than 100 in lifetime) Tobacco Use:., 07/24/2020 Never (less than 100 in lifetime) Tobacco Use:. Never Smokeless Tobacco Use:., 02/01/2019 [facility] Comment on above: Result Comment: Elec tronically Signed By: Taylor Mccauley MD, Isabelle\.bernie\Date and Time Signed: 07/24/20 13:13 EST Auth for Release of Medical Recordson 02-09-2020 Auth for Release of Medical Records [id number] #1.00CD:127 [facility] Patient Letter FTon 2019 Patient Letter [facility] [place] January 24, 2020 RADHA GUTIÉRREZ [address] [place] [address] RADHA GUTIÉRREZ 1945 Dear Radha, This is a reminder that you are due for an appointment with Dr. Garland or Dr. Mccauley. Please call [facility] at [phone] to schedule an appointment at your earliest convenience. Thank you, [facility] Vital Signs Date Time Vital Sign Value Performing Clinician Chuckie osborne 10-19-2024 13:15-0400 Body height 165.1 cm [facility] 10-19-2024 13:15-0400 Body mass index (BMI) [Ratio] 32.3 kg/m2 [facility] 10-19-2024 13:15-0400 Body temperature 97.5 [degF] [facility] 10-19-2024 13:15-0400 Body weight 88.11 kg [facility] 10-19-2024 13:15-0400 Diastolic blood pressure 64 mm[Hg] [facility] 10-19-2024 13:15-0400 Heart rate 75 /min [facility] 10-19-2024 13:15-0400 Respiratory rate 18 /min [facility] 10-19-2024 13:15-0400 SaO2% (BldA) [Mass fraction] 97 % [facility] 10-19-2024 13:15-0400 Systolic blood pressure 99 mm[Hg] [facility] 07-27-2024 10:30-0500 Diastolic blood pressure 68 mm[Hg] [facility] 07-27-2024 10:30-0500 Systolic blood pressure 96 mm[Hg] [facility] 07-27-2024 10:050 Body height 165.1 cm [facility] 07-27-2024 10:13050 Body mass index (BMI) [Ratio] 31.3 kg/m2 [facility] 07-27-2024 10:13050 Body weight 85.33 kg [facility] 07-27-2024 10:13050 Heart rate 85 /min [facility] 07-27-2024 10:13050 Respiratory rate 16 /min [facility] 07-27-2024 10:13050 SaO2% (BldA) [Mass fraction] 98 % [facility] Encounters Encounter Date Encounter Type Care Provider Facility Start: 12-11-2024 End: 12-11-2024 ambulatory Florina Devlin MD Facility:[facility] Start: 12-06-2024 ambulatory [facility] Start: 12-06-2024 ambulatory [facility] Start: 10-20-2024 ambulatory [facility] Start: 10-19-2024 End: 10-19-2024 ambulatory [facility] Work Phone: Start: 10-19-2024 End: 10-19-2024 Patient encounter procedure [facility]ly [facility], [facility]1983 Physician [facility] Kevin Work Phone: Start: 10-09-2024 Non-patient / Non-visit [facility], [facility] Physician [facility] Work Phone: Start: 09-11-2024 ambulatory [facility] Start: 08-18-2024 End: 08-18-2024 [facility] Start: 08-18-2024 Non-patient / Non-visit [facility], [facility] Physician [facility] Work Phone: Start: 08-15-2024 ambulatory [facility] Start: 08-14-2024 End: 08-14-2024 ambulatory [facility] Start: 08-09-2024 ambulatory [facility] Start: 08-09-2024 Encounter for preprocedural cardiovascular examination [facility] Start: 07-27-2024 End: 07-27-2024 ambulatory [facility] Work Phone: Start: 07-27-2024 End: 07-27-2024 Patient encounter procedure [facility], [facility] Physician [facility] Kevin Work Phone: Start: 07-11-2024 ambulatory [facility] Start: 06-15-2024 ambulatory [facility] Start: 05-22-2024 ambulatory [facility] Start: 05-18-2024 ambulatory [facility] Start: 05-16-2024 ambulatory [facility] Start: 05-15-2024 ambulatory [facility] Start: 05-04-2024 ambulatory [facility] Start: 04-20-2024 ambulatory [facility] Start: 03-27-2024 ambulatory [facility] Start: 03-21-2024 End: 03-21-2024 ambulatory [facility] Start: 03-17-2024 ambulatory [facility] Start: 02-08-2024 End: 02-08-2024 ambulatory [facility] Start: 01-18-2024 ambulatory [facility] Start: 01-17-2024 End: 01-17-2024 ambulatory CARIDAD GARNER Not Available Start: 01-11-2024 End: 01-11-2024 ambulatory SANDIE PAGE Not Available Start: 01-05-2024 ambulatory [facility] Start: 12-28-2023 End: 12-28-2023 Telephone encounter [facility] Start: 12-20-2023 End: 12-20-2023 ambulatory SANDIE PAGE Not Available Start: 12-16-[address] [facility] Start: 12-06-2023 End: 12-06-2023 Refill Sonia Tenorio RN [facility] Comment on above: Med Refill Start: 11-11-2023 End: 11-11-2023 ambulatory OSWALDO CHRISTIANO Not Available Start: 09-10-2023 End: 09-10-2023 Refill Mischell Yaima PROFESSOR OF THEOLOGY-MILLINERY DEPARTMENT MANAGER Work Phone: [facility] Comment on above: Med Refill Start: 06-11-2023 Refill Mike means MD Work Phone: [facility] Comment on above: Med Refill Start: 06-05-2023 Refill Mischenisa horne PROFESSOR OF THEOLOGY-MILLINERY DEPARTMENT MANAGER Work Phone: [facility] Comment [...] Start: 01-30-2024 Influenza vaccination Influenza Vacc ine [facility] Start: 08-25-2023 Adult BMI Screening Adult BMI Screen ing [facility] Start: 08-25-2023 Tobacco Screening Tobacco Screening [facility] Start: 01-29-2023 COVID-19 Vaccine () COVID-19 Vaccine () [facility] Start: 01-29-2023 Influenza vaccination [facility] Start: 11-03-2022 ambulatory Ambulatory Facility:H 1 Start: 2010 Fall Risk Screening Fall Risk Screen ing [employer] Start: 1995 Administration of varicella zoster vaccine Zoster (Shingles) Vaccine (1 of 2) [facility] Start: 1964 DTaP,Tdap and Td Vac cines (1 - Tdap) DTaP,Tdap and Td Vaccines (1 - Tdap) [facility] Start: 1963 Adult BMI Follow Up Plan Adult BMI Follow Up Plan [employer] Start: 1957 Depression Screening Depression Scre ening [employer] Start: 1945 Medicare Annual Well ness Visit Medicare [facility] End: 06-08-2024 Basic metabolic 2000 panel - Serum or Plasma Basic Metabolic Panel Lab Routine Essential hypertension 1 Occurrences starting 06/08/2023 until 06/08/2024 [facility] Work Phone: Comment on above: 1 Occurrences starti ng 06/08/2023 until 06/08/2024 Renal function 2000 panel - Serum or Plasma [facility] Renal function 1999 panel - Serum or Plasma [facility] US Kidney - bilateral [facility] Immunizations Immunization Date Immunization Notes Care Provider Fa sherie 05-08-2021 influenza virus vaccine, unspecified formulation Mac Erwin PROFESSOR OF THEOLOGY-MILLINERY DEPARTMENT MANAGER Work Phone: [facility] Payers Date Payer Category Payer Private Health Insurance 2013 Medicare HUMANA MEDICARE HU[place]NA MEDICARE - [place] RESIDENT [id number] 2013-Present [phone] [address] [address] [place] [address] [id number] 1959 Medicare [id number] 1945 Unknown [id number] .593 1945 Unknown [id number] [id number] .593 1945 Unknown [id number] 2.16.840.1.816211.3.579.2 .593 1945 Unknown [id number] 2.16.840.1.805070.3.579.2 .593 1945 Unknown [id number] 2.16.840.1.253495.3.579.2 .593 1945 Unknown [id number] 2.16.840.1.190825.3.579.2 .593 1945 Unknown [id number] 2.16.840.1.115887.3.579.2 .593 1945 Unknown [id number] 2.16.840.1.302452.3.579.2 .1259 1945 Unknown [id number] 2.16.840.1.333584.3.579.2 .1259 1945 Unknown [id number] 2.16.840.1.437413.3.579.2 .1259 1945 Unknown [id number] 2.16.840.1.654625.3.579.2 .1259 1945 Unknown [id number] [id number] .196 Medicare Medicare [id number] Social History Date Type Detail Facility Start: 05-26-2022 End: 10-19-2024 Tobacco smoking status NHIS Never smoked tobacco [facility] Start: 05-26-2022 Tobacco use and exposure Smoke less tobacco non-user [facility] Start: 08-24-2022 Alcohol intake Current 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 (finding) [facility] Start: 07-04-2020 End: 08-24-2022 History of Social function [facility] Start: 07-04-2020 End: 08-24-2022 Tobacco use panel [facility] Housing Instability Unknown [employer] Start: 1945 Sex Assigned At Not on file [facility] [employer] Start: 07-27-2024 End: 10-19-2024 Sex Female (finding) [facility] Start: 1945 Sex Assigned At Female [facility] Medical Equipment Procedure Code Equipment Code Equipment Origin al Text Equipment Identifier Dates Mesh [id number] 3d Rect Plstr Clgn Symbotex 2 Sd Comp Mfl Babsr Rpl [id number] - Sna - [id number] Start: 06-30-2022 Dev Clsr 30fr Watchman 30mm - [id number] Start: 10-28-2018 Clinical Notes 12-24-2021 to [...] Dr. Hines 2019, implantation of Biventricular ICD ([employer]) 07/05/2023, status post AV node ablation 11/01/[address] Madden. 08/18/2024 office visit: The patient was seen and evaluated in the office today. Overall, she reports feeling well. Abnormal kidney function was incidentally noted on presurgical labs for a planned back surgery, including a potassium of 5.8 and creatinine of 1.62. She has since established care with a process safety specialist, whom she saw for the first time [...] not included)... [facility] 03-21-2024 Note [place] Electrophysiology Consult Note Reason for visit: Afib [...] bleed. She was previously seen by [facility] cardiology. She was initially seen by [...] on file Intimate Partner Violence: Unknown (07/23/2023) [place] Safety & Environment Fear of Current or [...] not included)... [facility] 02-14-2024 Note This report has been cancelled. [facility] 02-11-2024 Note RCRI= 2 points Class III Risk 10.1 % 30-day risk of , MS, or cardiac arrest From a cardiac perspective pt may proceed with planned surgery, she is a moderate risk for a moderate risk orthopedic surgery. She may hold Aspirin 5-7 days prior and resume post op. Please monitor hemodynamics carefully and prevent any major fluid shifts. Toya Gallardo [facility] Cardiology Available 7a-5pm via [employer] Pager [phone] [facility] 12-28-2023 Miscellaneous Notes Rec'd letter from patient stating that she no longer sees [facility], uses a doctor in [place]. documented in this encounter [facility] 12-28-2023 Telephone encounter Note Rec'd letter from patient stating that she no longer sees [facility], uses a doctor in [place]. [facility] 12-06-2023 Miscellaneous Notes Last OV 06/15/22.slm T/C to pt to sched [facility] f/u appt. No answer and mailbox is full. documented in this encounter [facility] 12-06-2023 Telephone encounter Note Last OV 06/15/22.slm [facility] 12-06-2023 Telephone encounter Note T/C to pt to sched [facility] f/u appt. No answer and mailbox is full. [facility] 09-10-2023 Miscellaneous Notes Please sign and route if you agree. Thank you HODAN 06/22/22 Pt needs annual appt schedule please, thank you. Letter mailed. LMOM for the patient to call and schedule their next appointment with [facility]. documented in this encounter [facility] 09-10-2023 Telephone encounter Note Please sign and route if you agree. Thank you HODAN 06/22/22 Pt needs annual appt schedule please, thank you. Letter mailed. [facility] 09-10-2023 Telephone encounter Note LMOM for the patient to call and schedule their next appointment with [facility]. [facility] 06-11-2023 Miscellaneous Notes Last OV 06/15/22, sent to [facility] front end alignment specialist for yearly visit to be scheduled. CMP 06/22/22. BMP ordered from refill encounter 06/08/23. Letter has been mailed, but will attempt to send letter via as last login was 05/07/23. documented in this encounter [facility] 06-11-2023 Telephone encounter Note Last OV 06/15/22, sent to [facility] front end alignment specialist for yearly visit to be scheduled. CMP 06/22/22. BMP ordered from refill encounter 06/08/23. Letter has been mailed, but will attempt to send letter via as last login was 05/07/23. [facility] 07-23-2022 Note PAIN MANAGEMENT CONS ULTATION [...] months' time or sooner if needed. [facility] 03-26-2022 Note CONSULTATION CONSULTATION DATE: [...] agrees with the plan of care. [facility] 12-24-2021 Note CONSULTATION PROCEDURE DATE: [...] the procedure well with no complications. [facility] 12-24-2021 Note CONSULTATION CONSULTATION DATE: [...] three months' time, unless otherwise indicated. [facility] Evaluation note Diagnosis Essential hypertension- Primary Unspecified essential hypertension documented in this encounter [facility] Diagnosis Chronic systolic CHF (congestive heart failure) ([facility]) [facility] Diagnosis Onset Date Resolution Status Admit Date Atrial fibrillation acute sahil2024 10:10am Chronic systolic (congestive ) heart failure acute July 27, 10:10am CKD (chronic kidney disease) stage 3, GFR 30-59 ml/min acute 2024 10:10am Hyperlipidemia acute July 022024 10:10am Hypertensive chronic kidney disease with stage 1 through stage 4 chronic ki acute July 10:10am Iron deficiency acute July 27, 2024 10:10am [facility] Work Phone: Evaluation note* Diagnosis Onset [...] Iron deficiency acute October 19, 2024 12:46pm [facility] Work Phone: InstructionsNot on filedocumented in this encounter [facility] filedocumented in this encounter [facility] on filedocumented in this encounter [facility] on filedocumented in this encounter [facility] Summary Purpose Family History No [...] section and content) DATE CREATED AUTHOR 07/25/2020 [facility] DATE CREATED AUTHOR AUTHOR'S ORGANIZ ATION 10/12/2022 [facility] DATE CREATED AUTHOR AUTHOR'S ORGANIZ ATION 01/17/2024 [facility] dical Specialists [facility] DATE CREATED AUTHOR AUTHOR'S ORGANIZ ATION 12/10/2024 [facility] DATE CREATED AUTHOR AUTHOR'S ORGANIZ ATION 12/18/2024 [facility] Reason for Visit (unrecogniz ed section and content) Reason Comments Med Refill Reason Onset Date Comments Med Refill 12/06/2023 Care Teams (unrecognized sec tion and content) Team Status: Active Member Role Status Dates Heaven Eliza Luís , FEEDER WORKER POWER UNIT OPERATOR-C Primary Care Provider Active Team Status: Active [...] October 19, 2024 End: October 19, 2024 Credit Union Examiner Relationship Specialty Start Date End Date Heaven Staley APRN-MILLINERY DEPARTMENT MANAGER [address] [facility] [place] [phone] PCP - General Family Medicine 10/30/21 Credit Union Examiner Relationship Specialty Start Date End Date Heaven Staley APRN-MILLINERY DEPARTMENT MANAGER [address] [facility] [place] [address] PCP - General Family Medicine 10/30/21 Credit Union Examiner Relationship Specialty Start Date End Date Heaven Staley APRN-MILLINERY DEPARTMENT MANAGER [address] [facility] [place] [address] PCP - General Family Medicine 10/30/21 Credit Union Examiner Relationship Specialty Start Date End Date Heaven Staley PROFESSOR OF THEOLOGY-MILLINERY DEPARTMENT MANAGER [address] [facility] [place] [phone] 191 PCP - General Family Medicine 10/30/21 Team [...] BE BASED ON THE PRIMARY CLINICAL RECORDS. [email or web address]. provides no warranty or guarantee of the accuracy or completeness of information in this document.
--- NOTE | 2024-12-28 09:41 | PM.CN ---
Consult Note: HPI Data of Consult Patient: known to practice within the last 3 years Requesting Physician: Carmen Ramey NP Primary Care Provider: FIDELINA STALEY Consult Narrative Reason for consult: f/u Narrative: Radha Cornell a pleasant 79 year old female presents for evaluation and management of chronic low back pain and neck pain. Pain today 6-7/10 ache increased with all activity and decreased with lying down and heat. recently underwent cervical CT with results below. Patient has found moderate benefit to current medication regimen. January 2024 underwent L3-S1 fusion and decompression at L3,4,[address] Ramírez with significant improvement ongoing. Patient continues to have moderate to severe low back and right low pain impacting sleep, social life, ADLS, and ability to stand and walk. RENATO 44%. denies falls or injury since last visit. continues to utilize cane. pt previously declining scs trial. recent right SIJ injection providing mild relief per pt. cc:: CC: Carmen Ramey NP [facility] Medical History Rectocele ?N81.6 - Rectocele (ICD-10) Bruising ?T14.8XXA - Other injury of unspecified body region, initial encounter (ICD-10) Anemia ?D64.9 - Anemia, unspecified (ICD-10) Upper back pain ?M54.9 - Dorsalgia, unspecified (ICD-10) Neck pain ?M54.2 - Cervicalgia (ICD-10) Low back pain ?M54.50 - Low back pain, unspecified (ICD-10) Fibromyalgia ?M79.7 - Fibromyalgia (ICD-10) Heartburn ?R12 - Heartburn (ICD-10) Acid reflux ?K21.9 - Gastro-esophageal reflux disease without esophagitis (ICD-10) Sleep apnea ?G47.30 - Sleep apnea, unspecified (ICD-10) Atrial fibrillation ?I48.91 - Unspecified atrial fibrillation (ICD-10) Surgical History S/P lumbar spine operation ?Z98.890 - Other specified postprocedural states (ICD-10) S/P shoulder surgery ?Z98.890 - Other specified postprocedural states (ICD-10) History of bariatric surgery ?Z98.84 - Bariatric surgery status (ICD-10) H/O heart surgery ?Z98.890 - Other specified postprocedural states (ICD-10) H/O: hysterectomy ?Z90.710 - Acquired absence of both cervix and uterus (ICD-10) Hx of cholecystectomy ?Z90.49 - Acquired absence of other specified parts of digestive tract (ICD-10) Meds Home Medications and Allergies Home Medications ?Medication ?Instructions ?Recorded ?Confirmed ?Type cholecalciferol (vitamin D3) 125 5,000 unit PO DAILY 11/03/22 12/11/24 History mcg (5,000 unit) capsule furosemide 40 mg tablet (Lasix) 40 mg PO BID 11/03/22 12/11/24 History krill 2 cap PO DAILY 11/03/22 12/11/24 History igo-ue9-zlv-vsh-ee2-cym-astax 1,500 mg-165 mg-67.5 mg capsule losartan 25 mg tablet 25 mg PO DAILY 11/03/22 12/11/24 History metoprolol succinate 25 mg 12.5 mg PO BID 11/03/22 12/11/24 History tablet,extended release 24 hr multivitamin 1 tab PO DAILY 11/03/22 12/11/24 History pantoprazole 40 mg tablet,delayed 40 mg PO BID 11/03/22 12/11/24 History release (Protonix) pramipexole 1 mg tablet (Mirapex) 1 mg PO DAILY 11/03/22 12/11/24 History trazodone 50 mg tablet 50 mg PO DAILY 11/03/22 12/11/24 History vitamin B complex 1 cap PO DAILY 11/03/22 12/11/24 History naloxone 4 mg/actuation nasal 4 mg intranasal Q3M PRN opioid 02/11/23 12/11/24 Rx spray (Narcan) overdose #2 ea oxycodone-acetaminophen 5 mg-325 1 tab PO .BID-TID PRN pain #75 tabs 10/11/24 12/11/24 Rx mg tablet (Percocet) baclofen 10 mg tablet 10 mg PO BID PRN muscle spasm #60 11/09/24 12/11/24 Rx tabs diphenhydramine HCl 25 mg capsule 25 mg PO Q8H PRN allergy symptoms 11/20/24 12/11/24 History (Benadryl) oxycodone-acetaminophen 5 mg-325 1 tab PO TID PRN pain #75 tabs 12/25/24 Rx mg tablet (Percocet) Allergies Allergy/AdvReac Type Severity Reaction Status Date / Time codeine Allergy Mild Hives Verified 12/11/24 10:38 pregabalin (From Lyrica) Allergy Shakiness Verified 12/11/24 10:38 Exam Constitutional Documenting provider has reviewed patient's vital signs: yes Common normals: no apparent distress, oriented x3, healthy appearing, alert and well nourished General appearance: cooperative [facility] Common normals: normocephalic, hearing grossly normal bilaterally and moist oral mucous membranes Head and scalp: normocephalic Eye Common normals: PERRL Pupil: PERRL Neck & C-Spine Common normals: full ROM General: normal visual inspection Cervical spine: cervical ROM abnormal, pain with cervical ROM and cervical spine tenderness Other: positive spurlings, decreased sensation right C5,6,7 strength 4/5 in RUE and 5/5 in LUE Chest Common normals: inspection of chest normal Respiratory Common normals: normal respiratory effort, no retractions and no use of accessory muscles Back & Pelvis Lumbar spine/lower back: ROM limited, pain with ROM, straight leg raise positive right and straight leg raise positive left; no lumbar spinal tenderness Sacroiliac joints: SI joint(s) abnormal Other: right sij positive angelo(patricks), gaenslens, thigh thrust, compression test strength 5/5 in BLE decreased sensation bilateral L5/S1 Neuro Common normals: oriented x3 Sensorium/orientation: alert Psych Common normals: mental status grossly normal, thought process normal, cooperative, affect normal, speech normal and activity/motor behavior normal Speech: normal speech Thought process: normal thought process Results Imaging cervical xray: Attestation: I have reviewed the pertinent imaging results. Radiologist's impression: AP, lateral, both oblique and odontoid views were obtained. There is osteopenia. There is straightening of the normal cervical curvature. No acute compression fractures are seen. There is slight anterolisthesis of C2 on C3 and 3 mm of anterolisthesis of C3 on C4. Mild disc space narrowing is present at C3-4, moderate at C4-5 and severe at C5-6 and C6-7. There is endplate sclerosis at C5-6. Endplate spurring is present throughout and there is also facet disease. There is potential moderate bony foraminal encroachment at C3-4 and mild to moderate at C4-5 and C5-6 on the left. On the right, there is moderate bony foraminal encroachment at C5-6. The atlantoaxial relationship is maintained. There is no prevertebral soft tissue swelling. Assessment and Plan Assessment and Plan (1) Sacroiliitis: Assessment and Plan: 12/11/24 right SIJ injection providing mild ongoing relief (2) Cervical radiculopathy: Assessment and Plan: The patient has had over 3 months of moderate to severe neck and BUE pain with functional impairment and inadequate response to conservative care including NSAIDS (unless there are contraindication such as concurrent blood thinners), multiple oral or topical pain medications, and home exercise program/physical therapy.? Patient has completed >6 weeks of guided home exercise program and/or formal physical therapy program without relief of their symptoms.? The Oswestry Disability Index was completed, and the patient scored a 47%.? The patient noted the following:?? moderate to severe pain impacting ADLs, sitting, standing, sleeping, social life, travel We discussed the risks and benefits of the procedure with the patient, and we are NOT planning on using sedation as outlined in the guidelines from Medicare unless there is a documented reason that sedation would be strongly recommended.?? ?The procedure will be completed with fluoroscopic guidance.? (3) Failed back syndrome: (4) Status post lumbar spinal fusion: (5) Lumbar radiculopathy: (6) Lumbar stenosis with neurogenic claudication: Assessment and Plan: 11/20/24 right L4-5 L5-S1 TFESI mild relief (7) Chronic prescription opiate use: (8) Muscle spasm: (9) Lumbar spondylosis: Plan cervical CT reviewed with pt, proceed with right C5-6 C6-7 TFESI under fluoroscopy continues to consider scs trial for failed back syndrome, declining at this time continue HEP as tolerated continue current medications, risks vs benefits reviewed f/u 2 weeks after injection
== END 2024-12-28 09:30 | disposition home or self-care (01) ==
LOC: PM 09:30
PROVIDERS: PCP Nurse Practitioner Family; Visit Provider Nurse Practitioner
DX: M46.1 Sacroiliitis, not elsewhere classified (principal); M54.12 Radiculopathy, cervical region; M96.1 Postlaminectomy syndrome, not elsewhere classified; M43.26 Fusion of spine, lumbar region; M54.16 Radiculopathy, lumbar region; M48.062 Spinal stenosis, lumbar region with neurogenic claudication; Z79.891 Long term (current) use of opiate analgesic; M62.838 Other muscle spasm; M47.816 Spondylosis without myelopathy or radiculopathy, lumbar region
CPT/HCPCS: G0463

== ENCOUNTER 2025-01-15 08:59 | Day surgery (SDC) | payer MEDICARE, SELFPAY ==
--- OUTSIDE RECORDS SUMMARY | 2024-12-15 06:50 | XMS_ITS ---
Author Organization [facility] Address [address] [place] [address] Care Team Providers Care Peoplesoft Consultant Name Role Phone Heaven Calderon Primary Care Provider James Guillory Unavailable [phone] KURTIS ESPOSITO CNP Unavailable Unavailable REASON FOR VISIT LUMBAR RECHECK Encounters Encounter Location Date Provider Diagnosis [facility] [address] [place] [address] [place] [address] 12/15/2024 James Kamara Plan Of Treatment Next Appt Details Provider Name:James Rascon Chava , 06/21/2025 10:20:00 AM, [address] [place] [address], [phone], Progress Notes * SAUL GUTIÉRREZ GDOB:[birth year] (79 yo F)Acc No.[id number]:12/15/2024 Patient: Matthias BUCIO SAUL Barry Provider: Jessenia Gibbs MD, PhD :1945 A ge:79 Y S ex:Female Date:12/15/2024 [address] [place] Pcp:Heaven Calderon Subjective: * Chief Complaints: * 1 . LUMBAR RECHECK. * Medical History: Objective: * Vitals: Assessment: Plan: * Treatment: Forms: * Images: * Electronic signature of Cornel Kamara MD, PHD on 01/15/2025 at 09:02 AM EDT Sign off status: Pending * Provider: Jessenia Gibbs MD, PhD Date: 0 12/15/2024 Generated for Breana robles/Bogdan/Yolanda on: 0 01/15/2025 09:02 AM EDT
--- OUTSIDE RECORDS SUMMARY | 2025-01-15 09:03 | XMS_ITS | Clinical Summary ---
Author Organization [facility] Address [id number] [address] [place] [address] Care Team Providers Care Tool Maintenance Worker Name Role Phone Heaven Calderon APRN-CHIEF SERVICE OBSERVER Primary Care Provider Allergies Active Allergy Reactions [...] tabletIndication s:Chronic systolic CHF (congestive heart failure) ([facility]) Take 1 tablet (25 mg total) [...] history exists Medical Devices Implanted Type Area Manager Mall Device Identifier Shelf Expiration Date Model / Serial / Lot Mesh [id number] 3d Rect Plstr Clgn Symbotex 2 Sd Comp Mfl Babsr Rpl [id number] - Sna - [id number] Implanted:Qty : 1 on 06/30/2022 by Jona Foley DO at [facility] Mesh N/A: Abdomen [employer] 04/29/2023 [id number] / NA / [id number] Dev Clsr 30fr Watchman 30mm - [id number] Implanted:Qty : 1 on 10/28/2018 by Kaushal Hines MD at [facility] Other Implant N/A: Heart [employer] 06/23/2021 [id number] / / [id number] Insurance HUMANA MEDICARE Care Teams Tool Maintenance Worker Relationship Specialty Start Date End Date Heaven Calderon, COMPUTER PROGRAMMING SUPERVISOR-CHIEF SERVICE OBSERVER [address] [address] PCP - General Family Medicine 10/30/21
--- OUTSIDE RECORDS SUMMARY | 2025-01-15 09:03 | XMS_ITS | Encounter Summary ---
Author Organization [employer] Address [facility] [place]-[id number] [address] [place] [address] Care Team Providers Care Space Studies Faculty Member Name Role Phone Heaven Calderon Jessenia VELVET STEAMER-MATCHER Primary Care Provider Reason for Visit * Reason Comments Med Refill Encounter Details Date Type Department Care Team (Late st Contact Info) Description 03/16/2023 Refill [facility] [address] [place] [phone] Carlos Nielson, VELVET STEAMER-MATCHER [address] [place] [address] Med Refill Social History Tobacco Use Types [...] complete labs as ordered. Letter sent to [employer]. documented in this encounter Plan of Treatment Not on file documented as of this encounter Visit Diagnoses Diagnosis Persistent atrial fibrillation (CMS-HCC)- Primary Atrial fibrillation documented in this encounter Care Teams Space Studies Faculty Member Relationship Specialty Start Date End Date Heaven Calderon, TAO-MATCHER [address] [place] [address] PCP - General Family Medicine 10/30/21 documented as of this encounter
--- OUTSIDE RECORDS SUMMARY | 2025-01-15 09:03 | XMS_ITS | Encounter Summary ---
Author Organization [employer] s tem Address [facility] [place]-[id number] [address] [place] [address] Care Team Providers Care Nurse Orthopaedic Name Role Phone YumikoHeaven Jessenia BURGER-MANUFACTURING SHIFT SUPERVISOR Primary Care Provider Reason for Visit * Reason Comments Med Refill Encounter Details Date Type Department Care Team (Late st Contact Info) Description 05/31/2023 Refill [facility] [address] [place] [phone] Mike Kowalski MD [address] [place] [address] Med Refill Social History Tobacco Use Types [...] (CMS-HCC) documented in this encounter Care Teams Nurse Orthopaedic Relationship Specialty Start Date End Date Heaven Calderon, HIMS CODER-MANUFACTURING SHIFT SUPERVISOR [address] [facility] [place] [phone] PCP - General Family Medicine 10/30/21 documented as of this encounter
--- OUTSIDE RECORDS SUMMARY | 2025-01-15 09:03 | XMS_ITS | Encounter Summary ---
Author Organization [facility] Address [facility] [place]-[id number] [address] [place] [address] Care Team Providers Care Quality Control Assistant Name Role Phone Heaven Calderon Jessenia THERAPIST RADIATION-RAIL SWITCH OPERATOR Primary Care Provider Reason for Visit * Reason Comments Med Refill Encounter Details Date Type Department Care Team (Late st Contact Info) Description 03/10/2024 Refill [facility] [address] [place] [phone] Mac Erwin APRN-RAIL SWITCH OPERATOR [address] [place] [address] Med Refill Social History Tobacco Use Types [...] on filedocumented in this encounter Care Teams Quality Control Assistant Relationship Specialty Start Date End Date Heaven Calderon, THERAPIST RADIATION-RAIL SWITCH OPERATOR [address] [place] [phone] PCP - General Family Medicine 10/30/21 documented as of this encounter
--- OUTSIDE RECORDS SUMMARY | 2025-01-15 09:03 | XMS_ITS | Encounter Summary ---
Author Organization [facility] Address [facility]-[id number] [address] [place] [address] Care Team Providers Care Nuclear Radiation Engineer Name Role Phone Heaven Calderon APRN-MEDICAL RECORDS AUDITOR Primary Care Provider Reason for Visit * Reason Comments Med Refill Encounter Details Date Type Department Care Team (Late st Contact Info) Description 07/29/2023 Refill [facility] [address] [place] [phone] Demarcus De La Paz PA-C [address] [place] [phone] Med Refill Social History Tobacco Use Types [...] on filedocumented in this encounter Care Teams Nuclear Radiation Engineer Relationship Specialty Start Date End Date Heaven Calderon, BOXING TRAINER-MEDICAL RECORDS AUDITOR [address] [place] [phone] PCP - General Family Medicine 10/30/21 documented as of this encounter
--- OUTSIDE RECORDS SUMMARY | 2025-01-15 09:03 | XMS_ITS | Encounter Summary ---
Author Organization [employer] s tem Address [facility] [place]-[id number] [address] [place] [address] Care Team Providers Care Control Clerk Head Name Role Phone Heaven Calderon Primary Care Provider Reason for Visit * Reason Comments Med Refill Encounter Details Date Type Department Care Team ([facility] st Contact Info) Description 10/09/2018 Refill [facility] [address] [facility] [address] [place] [phone] Jacky Stoddard, DO [address] [facility] [place] [address] Med Refill Social History Tobacco [...] on filedocumented in this encounter Care Teams Control Clerk Head Relationship Specialty Start Date End Date Heaven Calderon APRN-CNP [address] [facility] [address] PCP - General Family Medicine 10/30/21 documented as of this encounter
--- OUTSIDE RECORDS SUMMARY | 2025-01-15 09:03 | XMS_ITS | Patient Health Record ---
Author Organization [facility] Address [address] [place] [address] Care Team Providers Care Director Of Cardiopulmonary Services Name Role Phone Heaven Calderon Primary Care Provider UnavailAvani Pringle Unavailable [phone] KURTIS ESPOSITO CNP Unavailable Unavailable xxRadha Ramirez Unavailable Allergies Allergen (clinical drug ingredient) Drug/Non Drug Allergy documented on EMR Reaction Allergy Type Onset Date Status codeine codeine Unknown Drug Allergy Active Results Component Value Reference Range Notes TYPE AND SCREEN CAPTURE Reviewed date:04/10/2024 02:24:59 PM Interpretation: Performing Lab: Notes/Report: [facility] Original Ordering Provider: MD AVANI KAMARA PHD, Interested Provider Role: Ordering ABO CAPTURE O RH CAPTURE (2 D CLONES) NEG INDIRECT SHAKA CAPTURE NEG Performing Lab: see note [facility] [address] [facility] [address] [facility] Surgery Scheduling (Not yet reviewed by provider) [...] HOUR Post-op Appointment Date: 04/14/24 @ 10:30 KOTLIK Lab Location: [facility] Academic Affairs Assistant: YOLANDA Clearance Physician: NADER SCHWARTZ Clearance Appt Date/T [facility] History & Physical Appointment Date/: 02/18/24 @ 11:30AM [facility] Hemoglobin & HCT Reviewed date:04/10/2024 02:24:59 PM Interpretation: Performing Lab: Notes/Report: [facility] Original Ordering Provider: MD AVANI KAMARA PHD, Interested Provider Role: Ordering HEMOGLOBIN 10.1 12.0-16.0 gm/dl HEMATOCRIT 33.1 37.0-47.0 % Performing Lab: see note [facility] - [email or web address] [address] [facility] [address] Donn Maynard Hemoglobin & HCT Reviewed date:04/10/2024 02:24:59 PM Interpretation: Performing Lab: Notes/Report: [facility] Original Ordering Provider: MD AVANI KAMARA PHD, Interested Provider Role: Ordering HEMOGLOBIN 9.6 12.0-16.0 gm/dl HEMATOCRIT 31.5 37.0-47.0 % Performing Lab: see note [facility] - [employer] [address] [facility] [address] Donn Maynard Reason For Referral Reason APPROVED............................02/28/24...........................[employer] MCR HARDWARE REMOVAL L3-4, L4-S1 DECOMPRESSION WITH FUSION EXTENSION TO L3 78950, 46717, 20655, 00894 x2, 54674, [address]2703 Diagnosi s 1 DDD (degenerative disc disease), lumbar (M51.36) Diagnosi s 2 Lumbar stenosis with neurogenic claudica tion (M48.062) Diagnosi s 3 Lumbar radiculopathy (M54.16) Referral Organiza tion [facility] Refertammie rios Provider First Name Avani rios Provider Last Name St Anuradha rios Provider Speciali ty Orthopedic Surgery Referred Organiza tion [facility] - Inpatient Referred [facility]erred Address [address] [place] [address],[address],[place], [place],[address] 030,[place] Procedur e 1 Arthrodesis, posterior lumbar, 1 lumbar level (26240) Procedur e 2 Arthrodesis single, each addn'l level, p osteriolateral technique (26429) Procedur e 3 Laminectomy, facetectomy and foraminotom y single lumbar (63348) Procedur e 4 Laminectomy, facetectomy and foraminotom y additional vertebral segment (57857) Procedur e 5 Posterior segmental instrumentation, 3 t o 6 segments (46005) Procedur e 6 Autograft for spine surgery only; local obtained from same incision (42866) General Notes Yolanda Plaza 02/10/2024 09:04:13 PM [...] YOU, AUTHORIZATION REQUEST SUBMITTED WITH CLINICALS VIA [facility] PROVIDER PORTAL, TRACKING # [id number]., Ximena Bauer 02/16/2024 07:40:28 AM > PENDING, Ximena Bauer 02/21/2024 08:35:06 AM > CASE PENDING ADDITIONAL CLINICALS PER [employer], THEY'RE NEEDING Documentation of smoking status or smoking cessation (as evidenced by negative lab test report for nicotine and cotinine performed within 30 days of planned surgical procedure) , Yolanda Plaza 02/21/2024 08:51:34 AM >LAB PLACED IN SYSTEM AND PATIENT MADE AWARE THAT WILL BE SENT TO [facility] TO BE DONE, Ximena Bauer 02/21/2024 08:57:57 AM > PLEASE LET ME KNOW ANABEL ONCE LABS ARE IN CHART. I WILL SUBMIT TO INSURANCE., Yolanda Plaza 02/21/2024 01:52:14 PM >PATIENT IS A NON SMOKER AND THE CHART HAS BEEN UPDATED, Ximena Bauer 02/21/2024 02:14:35 PM > UPLOADED MEDICAL SUMMARY SHOWING PATIENT IS NONSMOKER VIA [employer] PROVIDER PORTAL., Ximena Bauer 02/23/2024 07:43:40 AM > AUTHORIZATION # [id number] APPROVED AND VALID 02/28/24-03/01/24 PER [employer] PROVIDER PORTAL. SCANNED INTO CHART. Referral Priority Stat Medications Medication SIG (Take, Route, Fr equency, Duration) Notes Start Date End Date Status spironolactone Unkno wn Trazodone Unknown Water Pill Unknown Carafate Unknown Mirapex ER Unknown Percocet Unknown losartan Unknown metoprolol Unknown Protonix Unknown Social History Tobacco Use: Social History [...] W/U Status Risk Notes Problem Lumbar radiculopathy (019261658) Lumbar radiculopathy (M54.16) Active confirmed Problem 187549785 Arthrodesis stat us (Z98.1) Active confirmed Problem Degeneration of lumbosacral intervertebral disc (21625893) Other intervertebral disc degeneration, lumbosacral region (M51.37) Active confirmed Problem Acquired spondylolisthesis (815486628) Spondylolisthesis of lumbar region (M43.16) Active confirmed Problem 80836929 DDD (degenerativ e disc disease), lumbar (M51.36) Active confirmed Problem Spinal stenosis of lumbar region (75820356) Lumbosacral spinal stenosis (M48.07) Active confirmed Problem Neurogenic claudication (462449995) Lumbar stenosis with neurogenic claudication (M48.062) Active confirmed Problem 584867570 Encounter for ot her orthopedic aftercare (Z47.89) Active confirmed Encounters Encounter Location Date Provider Diagnosis [facility] [address] [place] [address] 02/18/2024 Selvon Anh Lumbosacral spinal stenosis M48.07 ; Other intervertebral disc degeneration, lumbosacral region M51.37 and Lumbar radiculopathy M54.16 [facility] [address] [place] [address] 02/10/2024 [place]ha [facility] Lumbosacral spinal stenosis M48.07 ; Other intervertebral disc degeneration, lumbosacral region M51.37 and Spondylolisthesis of lumbar region M43.16 [facility] - Inpatient [address] [place], [place] [id number] 02/28/2024 Selvon Anh Spinal stenosis, lumbosacral region M48.07 and Other intervertebral disc degeneration, lumbosacral region M51.37 [facility] [address] [facility] [place] [address] 04/14/2024 Radha [facility] Encounter for other orthopedic aftercare Z47.89 [facility] [address] [place] [address] [place] [address] 06/02/2024 Radha [facility] Encounter for other orthopedic aftercare Z47.89 and Arthrodesis status Z98.1 [facility] [address] [facility] [place] [address] 09/01/2024 Radha [facility] Encounter for other orthopedic aftercare Z47.89 and Arthrodesis status Z98.1 [facility] Office [address] [place] [address] 12/22/2024 Selvon Anh Aftercare following surgery of the musculoskeletal system Z47.89 [place] [address] [place] [address] 03/01/2024 Avani Kamara [place] [address] [place] [address] 03/23/2024 Selcharlene Anh [place] [address] [place] [address] 04/03/2024 Selvon Anh Aftercare following surgery of the musculoskeletal system [...] L3-S1 decompression with extension fusion to S1 12/22/2024 Aftercare following surgery of the musculoskeletal system (ICD-10 - Z47.89) 02/10/2024 Other intervertebral disc degeneration, lumbosacral region [...] 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 She can discontinue the LSO brace [...] L3-S1 decompression with extension fusion to S1 12/22/2024 Trey Garcia, a female patient, presents for a 6-month follow-up after lumbar spine surgery involving L4 to S1 decompression and fusion. Status post lumbar spine surgery Assessment: Patient is 6 months post-operative from L4 to S1 decompression and fusion. X-rays taken today show good overall alignment and hardware composition without complications. There is evidence of hyperextension at the level above at L2-3. The patient retains some scoliosis and deformity, as well as arthritis above the fusion site. However, the surgical site appears to be healing well, and the patient reports improved mobility compared to pre-operative status. Plan - Follow-up appointment scheduled in 6 months for repeat x-ray to assess fusion status - Continue current management plan (no specific changes mentioned) - Maintain vigilance for any new or worsening symptoms Residual scoliosis and arthritis Assessment: Patient has residual scoliosis and arthritis above the fusion site, which is expected given the pre-existing spinal deformity. These conditions are not currently causing significant issues but may require ongoing monitoring. Plan - Continue to monitor for any progression or new symptoms related to residual scoliosis and arthritis - Reassess at next follow-up appointment in 6 months Thanks once again. If we can be of further service to your patients with disorders of the spine, cervical, thoracic, or lumbar, please do not hesitate to contact me. Best regards, Plan Of Treatment Pending Test Test Name Order Date Lumbar spine, 4v flex ext - 06544 2023 Lumbar spine, 4v flex ext - 74626 2024 Lumbar spine, 4v flex ext - 42166 2024 Lumbar spine 2v ap and lat - 30581 04/14 Lumbar spine 2v ap and lat - 72492 06/02 Surgery Scheduling 02/10/2024 DME - Lumbar Support, Surgical OTS 02/17 SFS - Lumbar Spine PT Order, Isometrics & Strenghening w/Modalities as needed, 2-3 times per week for 6 weeks 04/03/2024 Type and Cross Blood 2 units 02/18/2024 Future Test Test Name Order Date Chest 2 views - 12409 02/10/2024 CBC 02/10/2024 PT/PTT 02/10/2024 BMP 02/10/2024 MRSA (Bilateral Nares) PCR 02/10/2024 EKG 02/10/2024 Next Appt Details Provider Name:Avani Arevalo, 06/21/2025 10:20:00 AM, [address] [place] [address], [phone], Insurance Providers Payer Name Payer Address Payer Phone Subscriber Number Group Number Insured Name Patient Relationship to Insured Coverage Start Date Coverage End Date Medicare [employer] [place] [address] [place] [address] [phone] [id number] SAUL GUTIÉRREZ Self - patient is the insured Medical (General) History Medical History History ICD Code High Blood Pressure Abnormal Heart Rhythm Stomach ulcers Gastric Reflux Irritable bowel syndrome Kidney stones Pacemaker or AICD Surgical History Surgery Date(Month/Year) L3-S1 laminectomy, PSF 01/2024 Pacemaker Lumbar surgery Hand surgery 2019
--- OUTSIDE RECORDS SUMMARY | 2025-01-15 09:03 | XMS_ITS | Encounter Summary ---
Author Organization [facility] Address [facility]-[id number] [address] [place] [address] Care Team Providers Care Cementing Machine Operator Name Role Phone Heaven Calderon Jessenia FLAME ANNEALING MACHINE SETTER-BREAST BUFFER Primary Care Provider Reason for Visit * Reason Comments Med Refill Encounter Details Date Type Department Care Team (Late st Contact Info) Description 04/27/2023 Refill [facility] [address] [place] [phone] Mac Erwin APRN-BREAST BUFFER [address] [place] [address] Med Refill Social History Tobacco Use Types [...] on filedocumented in this encounter Care Teams Cementing Machine Operator Relationship Specialty Start Date End Date Heaven Calderon, FLAME ANNEALING MACHINE SETTER-BREAST BUFFER [address] [place] [address] PCP - General Family Medicine 10/30/21 documented as of this encounter
--- OUTSIDE RECORDS SUMMARY | 2025-01-15 09:03 | XMS_ITS | Clinical Summary ---
Author Organization [facility] Address [address] [place] [address] Care Team Providers Care Sports Team Manager Name Role Phone Heaven Calderon MD Unavailable Allergies Active Allergy Reactions Criticality Noted Date [...] 2 - PPSV23) 05/09/2016 05/09/2015 Influenza Vaccine (#1) 2025 , 06/10/2020, 04/10/2019, Additional history exists Insurance [facility] Care Teams Sports Team Manager Relationship Specialty Start Date End Date Heaven Calderon MD [address] [place] [address] Referring Physician Family Medicine 11/11/23
--- OUTSIDE RECORDS SUMMARY | 2025-01-15 09:03 | XMS_ITS | Encounter Summary ---
Author Organization [employer] Address [facility] [place][id number] [address] [place] [address] Care Team Providers Care Finisher Screwdown Name Role Phone Heaven Calderon OFFICE BOOKKEEPER-MUD MILL TENDER Primary Care Provider Encounter Details Date Type Department Care Team (Late st Contact Info) Description 08/21/2021 Orders Only [facility] [address] [place] [phone] Valerie Chavez MA Chronic systolic CHF (congestive heart failure) ([facility]); Cardiomyopathy, nonischemic ([facility]) Social History Tobacco Use Types Packs/Day Years [...] Exposure Response Date Recorded In the last 10 days, have yo u been in contact with someone who was confirmed or suspected to have Coronavirus/COVID-19? No / Unsure 08/18/2021 8:13 AM EDT documented as of this encounter Plan of Treatment Not on file documented as of this encounter Procedures Procedure Name Priority Date/Time Associated Diagnosis Comments MAGNESIUM Routine 08/21/2021 Chronic systolic CHF (congestive heart failure) ([facility]) LIPID PROFILE Routine 08/21/2021 BASIC METABOLIC PANEL Routine 08/21/2021 Cardiomyopathy, nonischemic ([facility]) Chronic systolic CHF (congestive heart failure) ([facility]) documented in this encounter Results * Lipid profile (08/21/2021) External Cholesterol 140 MANUALLY TRANSCRIBED RESULTS External Cholesterol:Hdl 3.0 MANUALLY TRANSCRIBED RESULTS External Hdl Cholesterol 47 MANUALLY TRANSCRIBED RESULTS External Ldl (Calc) 79 MANUALLY TRANSCRIBED RESULTS External Triglycerides 69 MANUALLY TRANSCRIBED RESULTS External Very Low Lipoprotein 13 MANUALLY TRANSCRIBED RESULTS us Scanning Provider External LAB BLOOD ORDERABLES Edited Result - Final MANUALLY TRANSCRIBED RESULTS * Basic Metabolic Panel (08/21/2021) 08/21/2021 Mac Erwin APRN-MUD MILL TENDER LAB BLOOD ORDERABLES Final Result [facility] * Magnesium (08/21/2021) 08/21/2021 Mac Erwin APRN-MUD MILL TENDER LAB BLOOD ORDERABLES Final Result Performing Organization Address City/[facility]/ZIP Co de Phone Number [facility] documented in this encounter Visit Diagnoses Diagnosis Chronic systolic CHF (congestive heart failure) ([facility]) Cardiomyopathy, nonischemic ([facility]) Other primary cardiomyopathies documented in this encounter Care Teams Finisher Screwdown Relationship Specialty Start Date End Date Heaven Calderon APRN-CNP [address] [facility] [place] [address] PCP - General Family Medicine 10/30/21 documented as of this encounter
--- OUTSIDE RECORDS SUMMARY | 2025-01-15 09:03 | XMS_ITS | Encounter Summary ---
Author Organization [employer] Address [facility]-[id number] [address] [place] [address] Care Team Providers Care Inspector Fuel Hose Name Role Phone Heaven Calderon APRN-ACCOUNTS PAYABLE LEAD Primary Care Provider Encounter Details Date Type Department Care Team (Late st Contact Info) Description 06/17/2022 Telephone [facility] Surgery [address] [place] [phone] Kathy Joyce RMA Social History Tobacco Use [...] on filedocumented in this encounter Care Teams Inspector Fuel Hose Relationship Specialty Start Date End Date Heaven Calderon APRN-VICKIE [address] [place] [address] PCP - General Family Medicine 10/30/21 documented as of this encounter
--- OUTSIDE RECORDS SUMMARY | 2025-01-15 09:03 | XMS_ITS | Encounter Summary ---
Author Organization [employer] Address [facility]-[id number] [address] [place] [address] Care Team Providers Care Detention Officer Name Role Phone Heaven Calderon Jessenia BURGER-REHAB AID Primary Care Provider Reason for Visit * Reason Onset Date Comments Med Refill Med Refill 06/26/2019 Encounter Details Date Type Department Care Team (Late st Contact Info) Description 06/17/2019 Refill [facility] [address] [place] [phone] Phi Limon MD [address] [place] [address] Med Refill; Med Refill Social History Tobacco [...] further furosemide refills. Kristin Billingsley RN 06/22/19 7167 documented in this encounter Plan of Treatment Not on file documented as of this encounter Results * (ABNORMAL) Magnesium (06/26/2019 11:00 AM EST) Magnesium 1.7(L) 1.8 - 2.6 mg/dL 06/26/2019 4:48 PM EST [facility] Serum / Unknown 06/26/2019 1 1:00 AM EST 06/26/2019 11:01 AM EST us Apple Packer RN LAB BLOOD ORDERABLES Final Res ult [facility] [address] [facility] [place] [address] documented in this encounter Visit Diagnoses Diagnosis half-way current use of diuretic- Primary documented in this encounter Care Teams Detention Officer Relationship Specialty Start Date End Date Heaven Calderon, [employer] SORTER-REHAB AID [address] [place] [address] PCP - General Family Medicine 10/30/21 documented as of this encounter
--- OUTSIDE RECORDS SUMMARY | 2025-01-15 09:16 | XMS_ITS | CCD ---
Author Organization [facility] Care Team Providers Care Police Dispatcher Name Role Phone JOHNSON ., DR JAYLON Ruelas Admitting Unavailable ORNELAS ., DR JAYLON Ruelas Attending Unavailable [facility] Care Unavailable ORNELAS ., DR JAYLON Ruelas Consulting Unavailable MICHELINE MOLINA Consulting Unavailable JOHNSON ., DR JAYLON Ruelas Admitting Unavailable ORNELAS ., DR JAYLON Ruelas Attending Unavailable [facility] Primary Care Unavailable RODRIGUEZ ., SABRINA Consulting Unavailable ORNELAS ., DR JAYLON Ruelas Admitting Unavailable ORNELAS ., DR JAYLON Ruelas Attending Unavailable [facility] Primary Care Unavailable RODRIGUEZ ., SABRINA Consulting Unavailable [facility] Primary Care Unavailable LAKSHMIPATHY ., NARENDRANATH Admitting Charity vailable LAKSHMIPATHY ., NARENDRANATH Attending Charity vailable LAKSHMIPATHY ., NARENDRANATH Consulting Charity vailable LAKSHMIPATHY ., NARENDRANATH Admitting Charity vailable LAKSHMIPATHY ., NARENDRANATH Attending Charity vailable [facility] Primary Care Unavailable LUÍS, HEAVEN Admitting Unavailable HEAVEN STALEY Attending Unavailable [facility] Care Unavailable DR OSWALDO VALENZUELA Consulting Unavailable HEAVEN STALEY Consulting Unavailable [facility], [facility] Primary Care Unavailable DAREK .KEILY Admitting Unavailable DAREK ., KEILY Attending Unavailable DAREK ., KELIY Consulting Unavailable KELSIE DEL ANGEL Consulting Unavailable [...] DANII Attending Unavailable NAVID, BIRD Referring Unavailable DIANA, SHAYY Referring Unavailable NAVID, BIRD Referring Unavailable NAVID, BIRD Referring Unavailable NAVID, BIRD Referring Unavailable NAVID, BIRD Referring Unavailable NAVID, BIRD Referring Unavailable NAVID, BIRD Referring Unavailable NAVID, BIRD Referring Unavailable Giedraitis , Florina Bragg Attending Unavailable Giedraitis , Florina Bragg Attending Unavailable Allergies Allergy Classification Reported Allergen(s) Allergy Type Date of Onset Reaction(s) Facility (4 sources) Codeine; Translations: [CODEINE] Drug Allergy 06-06-2014 [facility] Repository (5 sources) Codeine Drug Allergy 06-06-2014 [facility] (6 sources) Lisinopril; Translations: [LISINOPRIL] Drug Allergy 10-19-2014 [facility] (3 sources) pregabalin; Translations: [PREGABALIN] Drug Allergy 12-01-2023 [facility] Medications Current Medications Medication Drug Class(es) [...] 30 tablet 1 06/08/2023 Active lactobacillus acidophilus [id number] unt oral capsule (5 sources) take 1 [...] disease (2 sources) Atherosclerotic heart disease of [place] coronary artery without angina pectoris; Translations: [Atherosclerotic heart disease of [place] coronary artery without angina pectoris] Onset: 08-18-2024 [...] 10-11-2020 Episodic Other aftercare (1 source) Other usp (current) drug therapy; 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] Onset: 05-19-2022 Episodic Other [...] width [Ratio] by Automated count High 11.0-15.0 [facility] Estimated glomerular filtrat ion rate (GFR) non- Americanon 10-09-2024 GFR/1.73 sq M.predicted among non-blacks MDRD (S/P/Bld) [Vol rate/Area] Estimated glomerular filtration rate (GFR) non- Low >=60 mL/min/1.73m 2 [facility] Hematocrit Auto (Bld) [Volum e fraction]on 10-09-2024 Hematocrit (Bld) [Volume fraction] Hematocrit [Volume Fraction] of Blood by Automated count Low 36.0-48.0 [facility] Hemoglobin [Mass/volume] in Bloodon 10-09-2024 Hemoglobin (Bld) [Mass/Vol] Hemoglobin [Mass/volume] in Blood Low 12.0-16.0 [facility] Iron binding capacity [Mass/ volume] in Serum or Plasmaon 10-09-2024 Iron binding capacity [Mass/Vol] Iron binding capacity [Mass/volume] in Serum or Plasma 250.0-450.0 [facility] Iron saturation [Mass Fracti on] in Serum or Plasmaon 10-09-2024 Iron saturation [Mass fraction] Iron saturation [Mass Fraction] in Serum or Plasma [facility] Laboratory - Chemistry and C hemistry - challengeon 10-09-2024 Albumin [Mass/Vol] 3.2 g/dL Low 3.4-5.0 [facility] Calcium [Mass/Vol] 8.9 mg/dL 8.5-10.1 [facility] Chloride [Moles/Vol] 105 mmol/L 98-107 [facility] CO2 [Moles/Vol] 28.4 mmol/L 21.0-32.0 [facility] Creatinine [Mass/Vol] 1.33 mg/dL High 0.55-1.02 [facility] Ferritin [Mass/Vol] 13.0 ng/mL 8.0-252.0 [facility] GFR/1.73 sq M.predicted MDRD (S/P/Bld) [Vol rate/Area] 47 mL/min/{1.73_m2} Low >=60 mL/min/1.73m 2 [facility] Glucose [Mass/Vol] 85 mg/dL 74-106 [facility] Iron [Mass/Vol] 33.0 ug/dL Low 50.0-170.0 [facility] Magnesium [Mass/Vol] 2.1 mg/dL 1.8-2.4 [facility] Potassium [Moles/Vol] 4.6 mmol/L 3.5-5.1 [facility] Sodium [Moles/Vol] 139 mmol/L 136-145 [facility] Urate [Mass/Vol] 6.1 mg/dL High 2.6-6.0 [facility] Urea nitrogen [Mass/Vol] 30.0 mg/dL High 7.0-18.0 [facility] Urea nitrogen/Creatinine [Mass ratio] 22.6 mg/mg [facility] Laboratory - Urinalysison Protein (U) [Mass/Vol] 15.7 mg/dL High <=11.9 [facility] Leukocytes [#/volume] correc halie for nucleated erythrocytes in Blood by Automated counon 10-09-2024 WBC corrected for nucl RBC Auto (Bld) [#/Vol] Leukocytes [#/volume] corrected for nucleated erythrocytes in Blood by Automated coun 4.0-11.0 [facility] MCH Auto (RBC) [Entitic mass ]on 10-09-2024 MCH (RBC) [Entitic mass] MCH [Entitic mass] by Automated count 26.7-34.0 [facility] MCHC Auto (RBC) [Mass/Vol]on 10-09-2024 MCHC (RBC) [Mass/Vol] MCHC [Mass/volume] by Automated count 29.9-35.2 [facility] MCV Auto (RBC) [Entitic vol] on 10-09-2024 MCV (RBC) [Entitic vol] MCV [Entitic volume] by Automated count 81.0-99.0 [facility] No Panel Informationon 10-09 25-Hydroxy Vitamin D Total 46.5 ng/mL [facility] Comment on above: <20 ng/mL Vit D defi cient20-<30 ng/mL Vit D xvgfnqumhrti16-050 ng/mL Vit D sufficient>100 ng/mL Potential Toxicity Parathyroid Hormone (Intact) 76 pg/mL Abnormal 15-65 [facility] Comment on above: Performed at: - [employer] [id number] Director: Ra Gonzalez PhD, Phone: [phone] Phosphorus Level 3.9 mg/dL 2.6-4.7 [facility] Urine Random Creatinine 82.53 mg/dL 20.00-300.00 [facility] Platelet mean volume Auto (B ld) [Entitic vol]on 10-09-2024 Platelet mean volume (Bld) [Entitic vol] Platelet mean volume [Entitic volume] in Blood by Automated count 9.5-13.5 [facility] Platelets Auto (Bld) [#/Vol] on 10-09-2024 Platelets (Bld) [#/Vol] Platelets [#/volume] in Blood by Automated count 150-450 [facility] RBC Auto (Bld) [#/Vol]on RBC (Bld) [#/Vol] Erythrocytes [#/volume] in Blood by Automated count Low 4.20-5.40 [facility] Serum or plasma anion gap de terminationon 10-09-2024 Anion gap [Moles/Vol] Serum or plasma anion gap determination [facility] Urine protein/creatinine rat ioon 10-09-2024 Protein/Creatinine (U) [Ratio] Urine protein/creatinine ratio [facility] Erythrocyte distribution wid th Auto (RBC) [Ratio]on 08-18-2024 Erythrocyte distribution width (RBC) [Ratio] Erythrocyte distribution width [Ratio] by Automated count High 11.0-15.0 [facility] Estimated glomerular filtrat ion rate (GFR) non- Americanon 08-18-2024 GFR/1.73 sq M.predicted among non-blacks MDRD (S/P/Bld) [Vol rate/Area] Estimated glomerular filtration rate (GFR) non- Low >=60 mL/min/1.73m 2 [facility] Hematocrit Auto (Bld) [Volum e fraction]on 08-18-2024 Hematocrit (Bld) [Volume fraction] Hematocrit [Volume Fraction] of Blood by Automated count Low 36.0-48.0 [facility] Hemoglobin [Mass/volume] in Bloodon 08-18-2024 Hemoglobin (Bld) [Mass/Vol] Hemoglobin [Mass/volume] in Blood Low 12.0-16.0 [facility] Iron binding capacity [Mass/ volume] in Serum or Plasmaon 08-18-2024 Iron binding capacity [Mass/Vol] Iron binding capacity [Mass/volume] in Serum or Plasma 250.0-450.0 [facility] Iron saturation [Mass Fracti on] in Serum or Plasmaon 08-18-2024 Iron saturation [Mass fraction] Iron saturation [Mass Fraction] in Serum or Plasma [facility] Laboratory - Chemistry and C hemistry - challengeon 08-18-2024 Albumin [Mass/Vol] 3.4 g/dL 3.4-5.0 [facility] Calcium [Mass/Vol] 9.0 mg/dL 8.5-10.1 [facility] Chloride [Moles/Vol] 108 mmol/L High 98-107 [facility] CO2 [Moles/Vol] 26.5 mmol/L 21.0-32.0 [facility] Creatinine [Mass/Vol] 1.36 mg/dL High 0.55-1.02 [facility] Ferritin [Mass/Vol] 17.0 ng/mL 8.0-252.0 [facility] GFR/1.73 sq M.predicted MDRD (S/P/Bld) [Vol rate/Area] 45 mL/min/{1.73_m2} Low >=60 mL/min/1.73m 2 [facility] Glucose [Mass/Vol] 96 mg/dL 74-106 [facility] Iron [Mass/Vol] 71.0 ug/dL 50.0-170.0 [facility] Magnesium [Mass/Vol] 2.4 mg/dL 1.8-2.4 [facility] Potassium [Moles/Vol] 4.7 mmol/L 3.5-5.1 [facility] Sodium [Moles/Vol] 140 mmol/L 136-145 [facility] Urate [Mass/Vol] 6.5 mg/dL High 2.6-6.0 [facility] Urea nitrogen [Mass/Vol] 36.0 mg/dL High 7.0-18.0 [facility] Urea nitrogen/Creatinine [Mass ratio] 26.5 mg/mg [facility] Leukocytes [#/volume] correc halie for nucleated erythrocytes in Blood by Automated counon 08-18-2024 WBC corrected for nucl RBC Auto (Bld) [#/Vol] Leukocytes [#/volume] corrected for nucleated erythrocytes in Blood by Automated coun 4.0-11.0 [facility] MCH Auto (RBC) [Entitic mass ]on 08-18-2024 MCH (RBC) [Entitic mass] MCH [Entitic mass] by Automated count 26.7-34.0 [facility] MCHC Auto (RBC) [Mass/Vol]on 08-18-2024 MCHC (RBC) [Mass/Vol] MCHC [Mass/volume] by Automated count 29.9-35.2 [facility] MCV Auto (RBC) [Entitic vol] on 08-18-2024 MCV (RBC) [Entitic vol] MCV [Entitic volume] by Automated count 81.0-99.0 [facility] No Panel Informationon 08-18 25-Hydroxy Vitamin D Total 45.3 ng/mL [facility] Comment on above: <20 ng/mL Vit D defi cient20-<30 ng/mL Vit D aodtqjgrevxj66-049 ng/mL Vit D sufficient>100 ng/mL Potential Toxicity Parathyroid Hormone (Intact) 106 pg/mL Abnormal 15-65 [facility] Comment on above: Performed at: [facility] [employer] [address] [id number] Director: Ra Gonzalez PhD, Phone: [phone] Phosphorus Level 3.7 mg/dL 2.6-4.7 [facility] Urine Random Creatinine 36.44 mg/dL 20.00-300.00 [facility] Urine Random Total Protein <6.0 mg/dL <=11.9 [facility] Office Visiton 08-18-2024 Follow-up visit [id number] Radha Gutiérrez 1945 F Date Provider Department Center 08/18/2024 [id number], ADAM MAGNUS Herrera [facility] Family History Problem Relation Age of Onset Heart failure Father Family Status - Relation Status Age at Father Level of Service:39086 [place] OFFICE/OUTPATIENT ESTABLISHED LOW MDM 20 MIN Normal [facility] Platelet mean volume Auto (B ld) [Entitic vol]on 08-18-2024 Platelet mean volume (Bld) [Entitic vol] Platelet mean volume [Entitic volume] in Blood by Automated count 9.5-13.5 [facility] Platelets Auto (Bld) [#/Vol] on 08-18-2024 Platelets (Bld) [#/Vol] Platelets [#/volume] in Blood by Automated count 150-450 [facility] RBC Auto (Bld) [#/Vol]on RBC (Bld) [#/Vol] Erythrocytes [#/volume] in Blood by Automated count Low 4.20-5.40 [facility] Serum or plasma anion gap de terminationon 08-18-2024 Anion gap [Moles/Vol] Serum or plasma anion gap determination [facility] Office Visiton 03-21-2024 Follow-up visit [id number] Radha Gutiérrez 1945 Provider Department Center 03/21/2024 BIRD GEE MAGNUS [place] Family History Problem Relation Age of Onset Heart failure Father Family Status - Relation Status Age at Father Level of Service:36697 [place] OFFICE/OUTPATIENT ESTABLISHED LOW MDM 20 MIN [facility] 36on 02-11-2024 36 Tried to contact patient and she has no VM set up. Will try again on Wednesday. [facility] Documentationon 02-11-2024 Documentation [id number] Radha Gutiérrez 1945 Provider Department Center 02/11/2024 TOYA VALENCIA Family History Problem Relation Age of Onset Heart failure Father Family Status - Relation Status Age at Father [facility] 36on 02-08-2024 36 Patient had her [...] Dr. Madden until 03/21. Please advise. Thanks. [facility] Telephoneon 02-08-2024 Telephone [id number] Radha Gutiérrez 1945 Provider Department Center 02/08/2024 CARIDAD HENAO Family History Problem Relation Age of Onset Heart failure Father Family Status - Relation Status Age at Father [facility] INSULINon 09-23-2022 Insulin 7.9 uIU/mL Normal 2.6-24.9 [facility] Comment on above: Performed By: #### I NSULIN ####[facility] [address] [place], [place] [address]Dr. Ravin Dior CBC AUTO DIFFon 09-22-2022 BASO # 0.0 103/ul Normal 0.0-0.1 [facility] Comment on above: Performed By: #### C BC ####[facility] [address] [place], [place] [address]Dr. Novalilliana Dior Basophils/100 WBC (Bld) 0.4 % Normal 0.2-2.0 [facility] Comment on above: Performed By: #### C BC ####[facility] [address] [place], [place] [address]Dr. Ravin Dior EO # 0.6 103/ul Normal 0.0-0.7 [facility] Comment on above: Performed By: #### C BC ####[facility] [address] [place], [place] [address]Dr. Ravin Dior Eosinophils/100 WBC (Bld) 6.6 % Normal 0.9-7.0 [facility] Comment on above: Performed By: #### C BC ####[facility] [address] [place], [place] [address]Dr. Ravin Dior Erythrocyte distribution width (RBC) [Ratio] 16.2 % Critically high 11.0-15.0 [facility] Comment on above: Performed By: #### C BC ####[facility] [address] [place], [place] [address]Dr. Ravin Dior Hematocrit (Bld) [Volume fraction] 43.3 % Normal 36.0-48.0 [facility] Comment on above: Performed By: #### C BC ####[facility] [address] [place], [place] [address]Dr. Ravin Dior Hemoglobin (Bld) [Mass/Vol] 13.4 g/dL Normal 12.0-16.0 [facility] Comment on above: Performed By: #### C BC ####[facility] [address] [place] [id number]. Novalilliana Dior IG # 0.05 10e3/ul Critically high 0.00-0.03 [facility] Comment on above: Performed By: #### C BC ####[facility] [address] [place] [id number]. Ravin Dior IG % 0.5 % Normal 0.0-0.5 [facility] Comment on above: Performed By: #### C BC ####[facility] [address] [place] [address]Dr. Ravin Dior LYMPH # 2.1 103/ul Normal 1.2-3.8 [facility] Comment on above: Performed By: #### C BC ####[facility] [address] [place] [address]Dr. Ravin Dior Lymphocytes/100 WBC (Bld) 23.1 % Normal 20.5-60.0 [facility] Comment on above: Performed By: #### C BC ####[facility] [address] [place] [address]Dr. Novalilliana Dior MANUAL DIFF REQ NO Normal [facility] Comment on above: Performed By: #### C BC ####[facility] [address] [place] [address]Dr. Ravin Ovi MCH (RBC) [Entitic mass] 29.5 pg Normal 26.7-34.0 [facility] Comment on above: Performed By: #### C BC ####[facility] [address] [place] [address]Dr. Ravin Ovi MCHC (RBC) [Mass/Vol] 30.9 g/dL Normal 29.9-35.2 [facility] Comment on above: Performed By: #### C BC ####[facility] [address] [place] [address]Dr. Ravin Ovi MCV (RBC) [Entitic vol] 95.4 fL Normal 81.0-99.0 [facility] Comment on above: Performed By: #### C BC ####[facility] [address] [place] [id number]. Ravin Dior MONO # 0.5 103/ul Normal 0.3-0.8 [facility] Comment on above: Performed By: #### C BC ####[facility] [address] [place] [id number]. Ravin Dior Monocytes/100 WBC (Bld) 5.8 % Normal 1.7-12.0 [facility] Comment on above: Performed By: #### C BC ####[facility] [address] [place] [id number]. Ravin Dior NEUT # 5.8 103/ul Normal 1.4-6.5 [facility] Comment on above: Performed By: #### C BC ####[facility] [address] [place] [address]Dr. Ravin Dior Neutrophils/100 WBC (Bld) 63.6 % Normal 43.0-75.0 [facility] Comment on above: Performed By: #### C BC ####[facility] [address] [place] [address]Dr. Ravin Dior Platelet mean volume (Bld) [Entitic vol] 10.7 fL Normal 9.5-13.5 [facility] Comment on above: Performed By: #### C BC ####[facility] [address] [place] [id number]. Ravin Dior PLT 223 103/ul Normal 150-450 [facility] Comment on above: Performed By: #### C BC ####[facility] [address] [place] [id number]. Ravin Dior RBC 4.54 106/ul Normal 4.20-5.40 [facility] Comment on above: Performed By: #### C BC ####[facility] [address] [place], [place] [id number]. Ravin Dior WBC 9.2 103/ul Normal 4.0-11.0 [facility] Comment on above: Performed By: #### C BC ####[facility] [address] [place], [place] [address]DrViky Dior FREE THYROXINE INDEX T7on FTI 2.44 Normal 1.30-4.50 [facility] Comment on above: Performed By: #### C MP, T7, TSH, LIPID #### [facility] [address] [place] [address] [address] Ravin Dior T3U 33.0 % Normal 30.0-39.0 [facility] Comment on above: Performed By: #### C MP, T7, TSH, LIPID #### [facility] [address] [address] [address] Ravin Dior T4 [Mass/Vol] 7.40 ug/dL Normal 4.80-13.90 [facility] Comment on above: Performed By: #### C MP, T7, TSH, LIPID #### [facility] [address] [address] [address] Ravin Dior GLYCOHEMOGLOBIN A1Con 2022 ADA RECOMMENDATION SEE BELOW Normal [facility] [place] Comment on above: Result Comment: ADA RECOMMENDED LIMIT 4.0 - 6.0 ADA THERAPEUTIC TARGET < 7.0 ACTION SUGGESTED > 7.0 Performed By: #### A 1C ####[facility] [address] [place] [address]Dr. Ravin Dior Glucose [Mass/Vol] 105 mg/dL Normal [facility] [place] Comment on above: Performed By: #### A 1C ####[facility] [address] [place] [id number] Dior HbA1c (Bld) [Mass fraction] 5.3 % Normal 4.5-6.2 [facility] Comment on above: Performed By: #### A 1C ####[facility] [address] [place], [place] [address]RrDr. Raivn Dior IRONon 09-22-2022 Iron [Mass/Vol] 81.0 ug/dL Normal 50.0-170.0 [facility] Comment on above: Performed By: #### I SEAMUS ####[facility] [address] [place] [id number] Dior LIPID PROFILEon 09-22-2022 CHOL-HDL RATIO NORM SEE BELOW Normal [facility] Comment on above: Result Comment: 3.3 - 4.4 LOW RISK 4.4 - 7.1 AVERAGE RISK 7.1 - 11.0 MODERATE RISK >11.0 HIGH RISK Performed By: #### C MP, T7, TSH, LIPID ####[facility] [address] [place], [place] [address]Wa. Ravin Dior Cholesterol [Mass/Vol] 159 mg/dL Normal <=200 [facility] Comment on above: Performed By: #### C MP, T7, TSH, LIPID ####[facility] [address] [place] [id number]. Ravin Dior Cholesterol in HDL [Mass/Vol] 47 mg/dL Normal 40-60 [facility] Comment on above: Performed By: #### C MP, T7, TSH, LIPID ####[facility] [address] [place] [id number]. Rvain Dior Cholesterol in LDL [Mass/Vol] 96.4 mg/dL Normal [facility] Comment on above: Performed By: #### C MP, T7, TSH, LIPID ####[facility] [address] [place] [id number]. Ravin Dior Cholesterol.total/Cho lesterol in HDL [Mass ratio] 3.4 {ratio} Normal [facility] Comment on above: Performed By: #### C MP, T7, TSH, LIPID ####[facility] [address] [place] [id number]. Ravin Dior HDL NORMAL > or = 60 mg/dl - LOW CARDIOVASCULAR RISK <40 mg/dl - HIGH CARDIOVASCULAR RISK Normal [facility] Comment on above: Performed By: #### C MP, T7, TSH, LIPID ####[facility] [address] [place] [id number]. Ravin Dior LDL CALC NORMAL SEE BELOW Normal [facility] Comment on above: Result Comment: <100 mg/dl OPTIMAL 100 - 129 mg/dl NEAR OR ABOVE OPTIMAL 130 - 159 mg/dl BORDERLINE HIGH 160 - 189 mg/dl HIGH >190 mg/dl VERY HIGH Performed By: #### C MP, T7, TSH, LIPID ####[facility] [address] [place], [place] [address]Um. Ravin Dior Triglyceride [Mass/Vol] 78 mg/dL Normal <=150 [facility] Comment on above: Performed By: #### C MP, T7, TSH, LIPID ####[facility] [address] [place], [place] [address]Tr. Ravin Dior VLDL CALC 15.6 mg/dL Normal [facility] Comment on above: Performed By: #### C MP, T7, TSH, LIPID ####[facility] [address] [place], [place] [address]Xt. Ravin Dior MG MAMM SCREEN 3D NIKOS CADon 09-22-2022 MG MAMM SCREEN 3D NIKOS CAD Patient: RADHA GUTIÉRREZ Exam Date: 09/22/2022 : 1945 Gender:F Ordering : [facility] Admission #: [id number] Family : Order #: [id number] CLICK HERE TO VIEW EXAM RADIOLOGY REPORT [...] Treatments None Family Cancers None LOCATION: [facility] BREAST COMPOSITION: Almost entirely fatty. FINDINGS: DIAGNOSTIC [...] M.D. on 09/22/2022 at 17:02 Normal [facility] PROF 14(COMP METB)on 023 Albumin [Mass/Vol] 3.3 g/dL Critically low 3.4-5.0 [facility] Comment on above: Performed By: #### C MP, T7, TSH, LIPID #### [facility] [address] [place] [address] Dr. Ravin Dior Albumin/Globulin [Mass ratio] 0.7 {ratio} Normal [facility] Comment on above: Performed By: #### C MP, T7, TSH, LIPID #### [facility] [address] [place] [address] Dr. Ravin Dior ALP [Catalytic activity/Vol] 207 U/L Critically high 46-116 [facility] Comment on above: Performed By: #### C MP, T7, TSH, LIPID #### [facility] [address] [place] [address] Dr. Ravin Dior ALT [Catalytic activity/Vol] 47 U/L Normal 14-59 [facility] Comment on above: Performed By: #### C MP, T7, TSH, LIPID #### [facility] [address] [place] [address] Dr. Ravin Dior Anion gap [Moles/Vol] 11.5 mmol/L Normal [facility] Comment on above: Performed By: #### C MP, T7, TSH, LIPID #### [facility] [address] [place] [address] Dr. Ravin Dior AST [Catalytic activity/Vol] 35 U/L Normal 15-37 [facility] Comment on above: Performed By: #### C MP, T7, TSH, LIPID #### [facility] [address] [place] [address] Dr. Ravin Dior Bilirubin [Mass/Vol] 0.6 mg/dL Normal 0.2-1.0 [facility] Comment on above: Performed By: #### C MP, T7, TSH, LIPID #### [facility] [address] [address] [address] Ravin Dior Calcium [Mass/Vol] 9.2 mg/dL Normal 8.5-10.1 [facility] Comment on above: Performed By: #### C MP, T7, TSH, LIPID #### [facility] [address] [place] [address] Dr. Ravin Dior Chloride [Moles/Vol] 109 mmol/L Critically high 98-107 [facility] Comment on above: Performed By: #### C MP, T7, TSH, LIPID #### [facility] [address] [place] [address] Dr. Ravin Dior CO2 [Moles/Vol] 27.7 mmol/L Normal 21.0-32.0 [facility] Comment on above: Performed By: #### C MP, T7, TSH, LIPID #### [facility] [address] [place] [address] Dr. Raivn Dior Creatinine [Mass/Vol] 0.94 mg/dL Normal 0.55-1.02 [facility] Comment on above: Performed By: #### C MP, T7, TSH, LIPID #### [facility] [address] [place] [address] Dr. Ravin Dior EGFR-AF NICARAGUAN >60 Normal >=60 [facility] Comment on above: Performed By: #### C MP, T7, TSH, LIPID #### [facility] [address] [place] [address] Dr. Ravin Dior EGFR-NON AF NICARAGUAN 58 mL/min/1.73m2 Critically low >=60 [facility] Comment on above: Performed By: #### C MP, T7, TSH, LIPID #### [facility] [address] [place] [address] Dr. Ravin Dior Globulin (S) [Mass/Vol] 4.7 g/dL Normal [facility] Comment on above: Performed By: #### C MP, T7, TSH, LIPID #### [facility] [address] [place] [address] Dr. Ravin Dior Glucose [Mass/Vol] 95 mg/dL Normal 74-106 [facility] Comment on above: Performed By: #### C MP, T7, TSH, LIPID #### [facility] [address] [place] [address] Dr. Ravin Dior Potassium [Moles/Vol] 4.2 mmol/L Normal 3.5-5.1 [facility] Comment on above: Performed By: #### C MP, T7, TSH, LIPID #### [facility] [address] [address] [address] Ravin Dior Protein [Mass/Vol] 8.0 g/dL Normal 6.4-8.2 [facility] [place] Comment on above: Performed By: #### C MP, T7, TSH, LIPID #### [facility] [address] [address] [address] Ravin Dior Sodium [Moles/Vol] 144 mmol/L Normal 136-145 [facility] [place] Comment on above: Performed By: #### C MP, T7, TSH, LIPID #### [facility] [address] [place] [address] Dr. Ravin Dior Urea nitrogen [Mass/Vol] 21.0 mg/dL Critically high 7.0-18.0 [facility] Comment on above: Performed By: #### C MP, T7, TSH, LIPID #### [facility] [address] [place] [address] Dr. Ravin Dior Urea nitrogen/Creatinine [Mass ratio] 22.3 mg/mg Normal [facility] Comment on above: Performed By: #### C MP, T7, TSH, LIPID #### [facility] [address] [place] [address] Dr. Ravin Dior TSHon 09-22-2022 TSH 2.085 uIU/mL Normal 0.358-3.740 [facility] Comment on above: Performed By: #### C MP, T7, TSH, LIPID #### [facility] [address] [place] [address] ABD/PELVIS WO CONon [...] was used, including Automated Exposure Control. FINDINGS: Choreography Director: No pertinent findings, which are not already [...] the largest most superior hernia. Normal [facility] CBC AUTO DIFFon 05-17-2022 BASO # 0.0 103/ul Normal 0.0-0.1 [facility] Comment on above: Performed By: #### C BC ####[facility] [address] [address]Dr. Ravin Dior Basophils/100 WBC (Bld) 0.2 % Normal 0.2-2.0 [facility] Comment on above: Performed By: #### C BC ####[facility] [address] [place], [place] [address]Dr. Ravin Dior EO # 0.1 103/ul Normal 0.0-0.7 [facility] Comment on above: Performed By: #### C BC ####[facility] [address] [place], [place] [address]Dr. Ravin Dior Eosinophils/100 WBC (Bld) 1.4 % Normal 0.9-7.0 [facility] Comment on above: Performed By: #### C BC ####[facility] [address] [place], [place] [address]Dr. Ravin Dior Erythrocyte distribution width (RBC) [Ratio] 13.7 % Normal 11.0-15.0 [facility] Comment on above: Performed By: #### C BC ####[facility] [address] [place], [place] [address]Dr. Ravin Dior Hematocrit (Bld) [Volume fraction] 44.4 % Normal 36.0-48.0 [facility] Comment on above: Performed By: #### C BC ####[facility] [address] [place], [place] [address]Dr. Ravin Dior Hemoglobin (Bld) [Mass/Vol] 14.7 g/dL Normal 12.0-16.0 [facility] Comment on above: Performed By: #### C BC ####[facility] [address] [place], [place] [address]Dr. Ravin iDor IG # 0.05 10e3/ul Critically high 0.00-0.03 [facility] Comment on above: Performed By: #### C BC ####[facility] [address] [place], [place] [address]Dr. Ravin Dior IG % 0.5 % Normal 0.0-0.5 [facility] Comment on above: Performed By: #### C BC ####[facility] [address] [address]Dr. Ravin Ovi LYMPH # 1.7 103/ul Normal 1.2-3.8 [facility] Comment on above: Performed By: #### C BC ####[facility] [address] [id number]. Novalilliana Dior Lymphocytes/100 WBC (Bld) 17.1 % Critically low 20.5-60.0 [facility] Comment on above: Performed By: #### C BC ####[facility] [address] [address]DrViky Dior MANUAL DIFF REQ NO Normal [facility] Comment on above: Performed By: #### C BC ####[facility] [address] [id number]. Ravin Dior MCH (RBC) [Entitic mass] 30.7 pg Normal 26.7-34.0 [facility] Comment on above: Performed By: #### C BC ####[facility] [address] [id number]. Ravin Ovi MCHC (RBC) [Mass/Vol] 33.1 g/dL Normal 29.9-35.2 [facility] Comment on above: Performed By: #### C BC ####[facility] [address] [id number] Diro MCV (RBC) [Entitic vol] 92.7 fL Normal 81.0-99.0 [facility] Comment on above: Performed By: #### C BC ####[facility] [address] [id number] Dior MONO # 0.6 103/ul Normal 0.3-0.8 [facility] Comment on above: Performed By: #### C BC ####[facility] [address] [id number]. Ravin Dior Monocytes/100 WBC (Bld) 5.7 % Normal 1.7-12.0 [facility] Comment on above: Performed By: #### C BC ####[facility] [address] [id number]. Novalilliaan Dior NEUT # 7.7 103/ul Critically high 1.4-6.5 [facility] Comment on above: Performed By: #### C BC ####[facility] [address] [id number]. Ravin Dior Neutrophils/100 WBC (Bld) 75.1 % Critically high 43.0-75.0 [facility] Comment on above: Performed By: #### C BC ####[facility] [address] [id number] Dior Platelet mean volume (Bld) [Entitic vol] 10.4 fL Normal 9.5-13.5 [facility] Comment on above: Performed By: #### C BC ####[facility] [address] [id number]. Ravin Dior PLT 294 103/ul Normal 150-450 [facility] Comment on above: Performed By: #### C BC ####[facility] [address] [id number]. Ravin Dior RBC 4.79 106/ul Normal 4.20-5.40 [facility] Comment on above: Performed By: #### C BC ####[facility] [address] [id number] Dior WBC 10.2 103/ul Normal 4.0-11.0 [facility] Comment on above: Performed By: #### C BC ####[facility] [address] [id number] Dior ER URINE PROFILEon 2 Bilirubin Ql (U) Negative Normal NEGATIVE [facility] Comment on above: Performed By: #### E ALDA SOUTH #### [facility] [address] [place], [place] [address] Dr. Ravin Dior Clarity (U) CLEAR Normal CLEAR [facility] Comment on above: Performed By: #### E RUR, UMICRO #### [facility] [address] [place] [address] Dr. Ravin Dior Color (U) LT. YELLOW Normal YELLOW [facility] Comment on above: Performed By: #### Tammy SOUTH UMICRO #### [facility] [address] [place] [address] Dr. Ravin NEGRETEAHAyan A micrscopic examination will be performed if indicated. Normal [facility] Comment on above: Performed By: #### Tammy SOUTH UMICRO #### [facility] [address] [place] [address] Dr. Ravin Dior Glucose Ql (U) Negative Normal NEGATIVE [facility] Comment on above: Performed By: #### Tammy SOUTH UMICRO #### [facility] [address] [place] [address] Dr. Ravin Dior Hemoglobin Ql (U) Negative Normal NEGATIVE [facility] Comment on above: Performed By: #### Tammy SOUTH UMICRO #### [facility] [address] [place] [address] Dr. Ravin Dior Ketones Ql (U) TRACE Abnormal NEGATIVE [facility] Comment on above: Performed By: #### Tammy SOUTH UMICRO #### [facility] [address] [place] [address] Dr. Ravin Dior LEUKOCYTES SMALL Abnormal NEGATIVE [facility] Comment on above: Performed By: #### Tammy SOUTH UMICRO #### [facility] [address] [place] [address] Dr. Ravin Dior Nitrite Ql (U) Negative Normal NEGATIVE [facility] Comment on above: Performed By: #### Tammy SOUTH UMICRO #### [facility] [address] [place] [address] Dr. Ravin Dior pH (U) 6.0 [pH] Normal 5-9 [facility] Comment on above: Performed By: #### Tammy SOUTH UMICRO #### [facility] [address] [place] [address] Dr. Ravin Dior SPEC GRAVITY 1.010 Normal 1.005-<=1.025 [facility] Comment on above: Performed By: #### DENY KAUFFMANRO #### [facility] [address] [place] [address] Dr. Ravin Dior UA PROTEIN Negative Normal NEGATIVE/ TRACE [facility] Comment on above: Performed By: #### JAZ KAUFFMANICRO #### [facility] [address] [place] [address] Dr. Ravin Dior UR MICRO IND INDICATED Normal [facility] Comment on above: Performed By: #### JAZ KAUFFMANICRO #### [facility] [address] [place] [address] Dr. Ravin Dior Urobilinogen Qn (U) 0.2 {Chandler'U}/dL Normal 0.2 - 1. 0 [facility] Comment on above: Performed By: #### DENY KAUFFMANRO #### [facility] [address] [place] [address] Dr. Ravin Dior LACTATE/LACTIC ACIDon 2021 Lactate [Moles/Vol] 1.3 mmol/L Normal 0.4-1.9 [facility] Comment on above: Performed By: #### L ACT ####[facility] [address] [address]Dr. Ravin Dior LIPASEon 05-17-2022 Lipase [Catalytic activity/Vol] 63.0 U/L Critically low 73.0-393.0 [facility] Comment on above: Performed By: #### C MP, LIPA #### [facility] [address] [place] [address] Dr. Ravin Dior PROF 14(COMP METB)on 022 Albumin [Mass/Vol] 3.4 g/dL Normal 3.4-5.0 [facility] Comment on above: Performed By: #### C ROGELIO, LIPA #### [facility] [address] [place] [address] Dr. Ravin Dior Albumin/Globulin [Mass ratio] 0.8 {ratio} Normal [facility] Comment on above: Performed By: #### C MP, LIPA #### [facility] [address] [address] [address] Ravin Dior ALP [Catalytic activity/Vol] 143 U/L Critically high 46-116 [facility] Comment on above: Performed By: #### C MP, LIPA #### [facility] [address] [address] [address] Ravin Dior ALT [Catalytic activity/Vol] 29 U/L Normal 14-59 [facility] Comment on above: Performed By: #### C MP, LIPA #### [facility] [address] [address] [address] Ravin Dior Anion gap [Moles/Vol] 7.6 mmol/L Normal [facility] Comment on above: Performed By: #### C MP, LIPA #### [facility] [address] [address] [address] Ravin Dior AST [Catalytic activity/Vol] 39 U/L Critically high 15-37 [facility] Comment on above: Performed By: #### C MP, LIPA #### [facility] [address] [address] [address] Ravin Dior Bilirubin [Mass/Vol] 0.7 mg/dL Normal 0.2-1.0 [facility] Comment on above: Performed By: #### C MP, LIPA #### [facility] [address] [address] [address] Ravin Dior Calcium [Mass/Vol] 9.1 mg/dL Normal 8.5-10.1 [facility] Comment on above: Performed By: #### C MP, LIPA #### [facility] [address] [address] [address] Ravin Dior Chloride [Moles/Vol] 102 mmol/L Normal 98-107 [facility] Comment on above: Performed By: #### C MP, LIPA #### [facility] [address] [address] [address] Ravin Dior CO2 [Moles/Vol] 31.1 mmol/L Normal 21.0-32.0 [facility] Comment on above: Performed By: #### C MP, LIPA #### [facility] [address] [address] [address] Ravin Dior Creatinine [Mass/Vol] 0.88 mg/dL Normal 0.55-1.02 [facility] Comment on above: Performed By: #### C MP, LIPA #### [facility] [address] [address] [address] Ravin Dior EGFR-AF NICARAGUAN >60 Normal >=60 [facility] Comment on above: Performed By: #### C MP, LIPA #### [facility] [address] [address] [address] Ravin Dior EGFR-NON AF NICARAGUAN >60 Normal >=60 [facility] Comment on above: Performed By: #### C MP, LIPA #### [facility] [address] [address] [address] Ravin Dior Globulin (S) [Mass/Vol] 4.5 g/dL Normal [facility] Comment on above: Performed By: #### C MP, LIPA #### [facility] [address] [address] [address] Ravin Dior Glucose [Mass/Vol] 100 mg/dL Normal 74-106 [facility] Comment on above: Performed By: #### C MP, LIPA #### [facility] [address] [address] [address] Ravin Dior Potassium [Moles/Vol] 3.7 mmol/L Normal 3.5-5.1 [facility] Comment on above: Performed By: #### C MP, LIPA #### [facility] [address] [address] [address] Ravin Dior Protein [Mass/Vol] 7.9 g/dL Normal 6.4-8.2 [facility] [place] Comment on above: Performed By: #### C MP, LIPA #### [facility] [address] [address] [address] Ravin Dior Sodium [Moles/Vol] 137 mmol/L Normal 136-145 [facility] [place] Comment on above: Performed By: #### C MP, LIPA #### [facility] [address] [address] [address] Ravin Dior Urea nitrogen [Mass/Vol] 12.0 mg/dL Normal 7.0-18.0 [facility] Comment on above: Performed By: #### C MP, LIPA #### [facility] [address] [address] [address] Ravin Dior Urea nitrogen/Creatinine [Mass ratio] 13.6 mg/mg Normal [facility] Comment on above: Performed By: #### C MP, LIPA #### [facility] [address] [place] [address] Dr. Ravin Dior URINE MICROSCOPIC ONLYon BACTERIA NONE SEEN Normal NONE SEEN [facility] Comment on above: Performed By: #### E RUR, UMICRO #### [facility] [address] [place] [address] Dr. Ravin Dior Bacteria identified Cx Nom (U) NOT INDICATED Normal [facility] Comment on above: Performed By: #### E RUR, UMICRO #### [facility] [address] [place] [address] Dr. Ravin Dior CAST NONE SEEN Normal NONE SEEN [facility] Comment on above: Performed By: #### E RUR, UMICRO #### [facility] [address] [place] [address] Dr. Ravin Dior Crystals LM Nom (Urine sed) NONE SEEN Normal NONE SEEN [facility] Comment on above: Performed By: #### E RUR, UMICRO #### [facility] [address] [place] [address] Dr. Ravin Dior Epithelial cells LM Ql (Urine sed) FEW Abnormal NONE SEEN /RARE [facility] Comment on above: Performed By: #### E RUR, UMICRO #### [facility] [address] [place] [address] Dr. Ravin Dior MUCOUS NONE SEEN Normal NONE SEEN [facility] Comment on above: Performed By: #### E RUR, UMICRO #### [facility] [address] [place], [place] [address] Dr. Ravin Dior RBC NONE SEEN Abnormal 0-2 [facility] Comment on above: Performed By: #### ALDA KAUFFMAN #### [facility] [address] [place], [place] [address] Dr. Ravin Dior WBC 0-2 Abnormal NONE SEEN [facility] Comment on above: Performed By: #### ALDA KAUFFMAN #### [facility] [address] [place], [place] [address] Dr. Ravin Dior Ambulatory Clinical Summaryo n 07-24-2020 Ambulatory Clinical Summary {[id number] Normal [facility] Gastroenterology Office/Clin ic Noteon 07-24-2020 Gastroenterology Office/Clinic [...] # 28 cap(s), Refills(s) 0, Pharmacy: [facility]/pharmacy #[id number], 165, cm, 07/24/20 12:03:00 EST, Height/Length Dosing, 95.9, kg, 07/24/20 12:03:00 EST, Weight Dosing metronidazole, 250 mg = 1 tab(s), Oral, TID, X 7 day(s), # 21 tab(s), Refills(s) 0, Pharmacy: [facility]/pharmacy #[id number], 165, cm, 07/24/20 12:03:00 EST, [...] # 160 cap(s), Refills(s) 1, Pharmacy: [facility]/pharmacy #[id number], 165, cm, 07/24/20 12:03:00 EST, Height/Length Dosing, 95.9, kg, 07/24/20 12:03:... Orders: pantoprazole, 40 mg = 2 tab(s), Oral, Daily, X 90 day(s), # 180 tab(s), Refills(s) 3, Pharmacy: [facility]/pharmacy #[id number], 165, cm, 07/24/20 12:03:00 EST, Height/Length Dosing, 95.9, kg, 07/24/20 12:03:00 EST, Weight Dosing Follow-up With When Contact Information Isabelle Ramirez MD In 12 months [address] [place] [address]- Additional Instructions: Problem List/Past Medical History Ongoing [...] 12/16/2018 Exercise - Occasional exercise, 12/16/2018 Other Xgrcjoxf-7-9 cups blair;y, 12/16/2018 Substance Abuse - Denies Substance Abuse, 12/16/2018 Tobacco Never (less than 100 in lifetime) Tobacco Use:., 07/24/2020 Never (less than 100 in lifetime) Tobacco Use:. Never Smokeless Tobacco Use:., 02/01/2019 [facility] Comment on above: Result Comment: Elec tronically Signed By: Taylor Mccauley MD, Isabelle\.bernie\Date and Time Signed: 07/24/20 13:13 EST Auth for Release of Medical Recordson 02-09-2020 Auth for Release of Medical Records [id number] #1.00CD:127 [facility] Patient Letter FTon 2019 Patient Letter [facility] January 24, 2020 RADHA GUTIÉRREZ [address] [place] [address] RADHA GUTIÉRREZ 1945 Dear Radha, This is a reminder that you are due for an appointment with Dr. Garland or Dr. Mccauley. Please call [facility] at [phone] to schedule an appointment at your earliest convenience. Thank you, [facility] Vital Signs Date Time Vital Sign Value Performing Clinician Chuckie osborne 10-19-2024 13:15-0400 Body height 165.[address] [facility] 10-19-2024 13:15-0400 Body mass index (BMI) [Ratio] 32.3 kg/m2 [facility] 10-19-2024 13:15-0400 Body temperature 97.5 [degF] [facility] 10-19-2024 13:15-0400 Body weight 88.[address] [facility] 10-19-2024 13:15-0400 Diastolic blood pressure 64 mm[Hg] [facility] 10-19-2024 13:15-0400 Heart rate 75 /min [facility] 10-19-2024 13:15-0400 Respiratory rate 18 /min [facility] 10-19-2024 13:15-0400 SaO2% (BldA) [Mass fraction] 97 % [facility] 10-19-2024 13:15-0400 Systolic blood pressure 99 mm[Hg] [facility] 07-27-2024 10:30-0500 Diastolic blood pressure 68 mm[Hg] [facility] 07-27-2024 10:300500 Systolic blood pressure 96 mm[Hg] [facility] 07-27-2024 10:130500 Body height 165.[address] [facility] 07-27-2024 10:130500 Body mass index (BMI) [Ratio] 31.3 kg/m2 [facility] 07-27-2024 10:130500 Body weight 85.[address] [facility] 07-27-2024 10:130500 Heart rate 85 /min [facility] 07-27-2024 10:130500 Respiratory rate 16 /min [facility] 07-27-2024 10:130500 SaO2% (BldA) [Mass fraction] 98 % [facility] Encounters Encounter Date Encounter Type Care Provider Facility Start: 12-27-2024 ambulatory SHAYY ORTIZ [facility] Start: 12-11-2024 End: 12-11-2024 ambulatory Florina Devlin MD Facility: [facility] Start: 12-06-2024 ambulatory [facility] Start: 12-06-2024 ambulatory [facility] Start: 11-20-2024 End: 11-20-2024 ambulatory Florina Devlin MD Facility: [facility] Start: 10-20-2024 ambulatory [facility] Start: 10-19-2024 End: 10-19-2024 ambulatory [facility] Work Phone: Start: 10-19-2024 End: 10-19-2024 Patient encounter procedure [facility] Kevin Work Phone: Start: 10-09-2024 Non-patient / Non-visit [facility] Work Phone: Start: 09-11-2024 ambulatory [facility] Start: 08-18-2024 End: 08-18-2024 [facility] Start: 08-18-2024 Non-patient / [facility]visit [facility] Work Phone: Start: 08-15-2024 ambulatory [facility] Start: 08-14-2024 End: 08-14-2024 ambulatory [facility] Start: 08-09-2024 ambulatory [facility] Start: 07-27-2024 End: 07-27-2024 ambulatory [facility] Work Phone: Start: 07-27-2024 End: 07-27-2024 Patient encounter procedure [facility] Nephrology Kevin Work Phone: Start: 07-11-2024 ambulatory [facility] Start: 06-15-2024 ambulatory [facility] Start: 05-22-2024 ambulatory [facility] Start: 05-18-2024 ambulatory [facility] Start: 05-18-2024 Encounter for preprocedural cardiovascular examination [facility] Start: 05-16-2024 ambulatory [facility] Start: 05-15-2024 ambulatory [facility] Start: 05-04-2024 ambulatory [facility] Start: 04-20-2024 ambulatory [facility] Start: 03-27-2024 ambulatory [facility] Start: 03-21-2024 End: 03-21-2024 ambulatory [facility] Start: 03-17-2024 ambulatory [facility] Start: 02-08-2024 End: 02-08-2024 ambulatory [facility] Start: 01-18-2024 ambulatory [facility] Start: 01-17-2024 End: 01-17-2024 ambulatory CARIDAD GARNER Not Available Start: 01-11-2024 End: 01-11-2024 ambulatory SANDIE PAGE Not Available Start: 01-05-2024 ambulatory [facility] Start: 12-28-2023 End: 12-28-2023 Telephone encounter Vera Spears [facility] Start: 12-20-2023 End: 12-20-2023 ambulatory AMPAROJONAS PAGE Not Available Start: 12-06-2023 End: 12-06-2023 Refill [facility] Comment on above: Med Refill Start: 11-11-2023 End: 11-11-2023 ambulatory OSWALDO RAQUEL Not Available Start: 09-10-2023 End: 09-10-2023 Refill Mischell Yaima 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 Work Phone: [facility] Comment on above: Med Refill Start: 06-11-2023 Refill Mike means MD Work Phone: [facility] Comment on above: Med Refill Start: 06-05-2023 Refill Mischell Schlo sser 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 [facility] Comment on above: Med [...] Start: 01-30-2024 Influenza vaccination Influenza Vacc ine [facility] Start: 08-25-2023 Adult BMI Screening Adult BMI Screen ing [facility] Start: 08-25-2023 Tobacco Screening [facility] [employer] [facility] Start: 01-29-2023 COVID-19 Vaccine ( season) COVID-19 Vaccine ( season) [facility] [employer] [facility] Start: 01-29-2023 Influenza vaccination Influenza Vacc ine [facility] [employer] [facility] Start: 11-03-2022 ambulatory Ambulatory Facility:H 1 Start: 2010 Fall Risk Screening Fall Risk Screen ing [facility] Start: 1995 Administration of varicella zoster vaccine Zoster (Shingles) Vaccine (1 of 2) [facility] [employer] Start: 1964 DTaP,Tdap and Td Vac cines (1 - Tdap) DTaP,Tdap and Td Vaccines (1 - Tdap) [facility] Start: 1963 Adult BMI Follow Up Plan Adult BMI Follow Up Plan [facility] Start: 1957 Depression Screening Depression Scre ening [facility] Start: 1945 Medicare Annual Well ness Visit Medicare Annual Wellness Visit [facility] [employer] End: 06-08-2024 Basic metabolic 2000 panel - Serum or Plasma Basic Metabolic Panel Lab Routine Essential hypertension 1 Occurrences starting 06/08/2023 until 06/08/2024 [facility] Work Phone: Comment on above: 1 Occurrences starti ng 06/08/2023 until 06/08/2024 Renal function 1999 panel - Serum or Plasma [facility] Renal function 1999 panel - Serum or Plasma [facility] US Kidney - bilateral Firela nds [facility] Immunizations Immunization Date Immunization Notes Care Provider Fa cility 05-08-2021 influenza virus vaccine, unspecified formulation Mac Erwin 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 Work Phone: [facility] Payers Date Payer Category Payer Private Health Insurance 2013 Medicare HUMANA MEDICARE [place] [id number] 2013-Present [phone] [address] [address] [place] [address] [id number] 1959 Medicare [id number] 1945 Unknown [id number] .593 1945 Unknown [id number] [id number] .593 1945 Unknown [id number] 2.16.840.1.163137.3.579.2 .593 1945 Unknown [id number] 2.16.840.1.893619.3.579.2 .593 1945 Unknown [id number] 2.16.840.1.072652.3.579.2 .593 1945 Unknown [id number] 2.16.840.1.926544.3.579.2 .593 1945 Unknown [id number] 2.16.840.1.211685.3.579.2 .593 1945 Unknown [id number] 2.16.840.1.630291.3.579.2 .1259 1945 Unknown [id number] 2.16.840.1.844788.3.579.2 .1259 1945 Unknown [id number] 2.16.840.1.787506.3.579.2 .1259 1945 Unknown [id number] 2.16.840.1.055820.3.579.2 .1259 1945 Unknown [id number] 2.16.840.1.823097.3.579.2 .196 1945 Unknown [id number] [id number] .196 Medicare Medicare [id number] Social History Date Type Detail Facility Start: 05-26-2022 End: 10-19-2024 Tobacco smoking status NHIS Never smoked tobacco [facility] Start: 05-26-2022 Tobacco use and exposure Smoke less tobacco non-user [facility] Start: 08-24-2022 Alcohol intake Current non-dr master [place] (finding) [facility] Start: 07-04-2020 End: 08-24-2022 History of Social function [facility] Start: 07-04-2020 End: 08-24-2022 Tobacco use panel [facility] Housing Instability Unknown [facility] Start: 1945 Sex Assigned At Not on file P [facility] Start: 07-27-2024 End: 10-19-2024 Sex Female (finding) [facility] Start: 1945 Sex Assigned At Female F [facility] Medical Equipment Procedure Code Equipment Code Equipment Origin al Text Equipment Identifier Dates Mesh [id number] 3d Rect Plstr Clgn Symbotex 2 Sd Comp Mfl Babsr Rpl [id number] - Sna - [id number] Start: 06-30-2022 Dev Clsr 30fr Watchman 30mm - [id number] Start: 10-28-2018 Clinical Notes 12-24-2021 to [...] Dr. Hines 2018, implantation of Biventricular ICD ([employer]) 07/05/2023, status post AV node ablation 11/01/[address] Madden. 08/18/2024 office visit: The patient was seen and evaluated in the office today. Overall, she reports feeling well. Abnormal kidney function was incidentally noted on presurgical labs for a planned back surgery, including a potassium of 5.8 and creatinine of 1.62. She has since established care with a art specialist, whom she saw for the first [...] not included)... [facility] 03-21-2024 Note [facility] Consult Note Reason [...] She was previously seen by [facility] cardiology. She was initially seen by [...] not included)... [facility] 02-14-2024 Note This report has been cancelled. [facility] 02-11-2024 Note RCRI= 2 points Class III Risk 10.1 % 30-day risk of , [place], or cardiac arrest From a cardiac perspective pt may proceed with planned surgery, she is a moderate risk for a moderate risk orthopedic surgery. She may hold Aspirin 5-7 days prior and resume post op. Please monitor hemodynamics carefully and prevent any major fluid shifts. [facility] [place] [facility] Available 7a-5pm via [employer] Pager [phone] [facility] 12-28-2023 Miscellaneous Notes Rec'd letter from patient stating that she no longer sees [facility], uses a doctor in [place]. documented in this encounter [facility] 12-28-2023 Telephone encounter Note Rec'd letter from patient stating that she no longer sees [facility], uses a doctor in [place]. [facility] 12-06-2023 Miscellaneous Notes Last OV 06/15/22.slm T/C to pt to sched [facility] f/u appt. No answer and mailbox is full. documented in this encounter [facility] 12-06-2023 Telephone encounter Note Last OV 06/15/22.slm [facility] 12-06-2023 Telephone encounter Note T/C to pt to sched [facility] f/u appt. No answer and mailbox is full. [facility] 09-10-2023 Miscellaneous Notes Please sign and route if you agree. Thank you HODAN 06/22/22 Pt needs annual appt schedule please, thank you. Letter mailed. LMOM for the patient to call and schedule their next appointment with [facility]. documented in this encounter [facility] 09-10-2023 Telephone encounter Note Please sign and route if you agree. Thank you HODAN 06/22/22 Pt needs annual appt schedule please, thank you. Letter mailed. [facility] 09-10-2023 Telephone encounter Note LMOM for the patient to call and schedule their next appointment with [facility]. [facility] 06-11-2023 Miscellaneous Notes Last OV 06/15/22, sent to [facility] it help desk technician for yearly visit to be scheduled. CMP 06/22/22. BMP ordered from refill encounter 06/08/23. Letter has been mailed, but will attempt to send letter via as last login was 05/07/23. [email or web address] Telephone encounter Note Last OV 06/15/22, sent to [facility] it help desk technician for yearly visit to be scheduled. CMP 06/22/22. BMP ordered from refill encounter 06/08/23. Letter has been mailed, but will attempt to send letter via as last login was 05/07/23. [email or web address] 07-23-2022 Note PAIN MANAGEMENT CONS ULTATION CONSULTATION [...] months' time or sooner if needed. [facility] 03-26-2022 Note CONSULTATION CONSULTATION DATE: 03/26/2022 This [...] agrees with the plan of care. [facility] 12-24-2021 Note CONSULTATION PROCEDURE DATE: 12/24/2021 PREOPERATIVE [...] the procedure well with no complications. [facility] 12-24-2021 Note CONSULTATION CONSULTATION DATE: 12/24/2021 HISTORY [...] three months' time, unless otherwise indicated. [facility] Evaluation note Diagnosis Essential hypertension- Primary Unspecified essential hypertension [facility] Diagnosis Chronic systolic CHF (congestive heart failure) ([facility]) [facility] Diagnosis Onset Date Resolution Status Admit Date Atrial fibrillation acute Febr2024 10:10am Chronic systolic (congestive ) heart failure acute July 27, 025 10:10am CKD (chronic kidney disease) stage 3, GFR 30-59 ml/min acute 2024 10:10am Hyperlipidemia acute July 022024 10:10am Hypertensive chronic kidney disease with stage 1 through stage 4 chronic ki acute July 10:10am Iron deficiency acute July 27, 2024 10:10am [facility] Work Phone: Evaluation note* Diagnosis Onset [...] Iron deficiency acute October 19, 2024 12:46pm [facility] Work Phone: InstructionsNot on filedocumented in [...] section and content) DATE CREATED AUTHOR 07/25/2020 [facility] DATE CREATED AUTHOR AUTHOR'S ORGANIZ ATION 10/12/2022 [facility] DATE CREATED AUTHOR AUTHOR'S ORGANIZ ATION 01/17/2024 [facility] DATE CREATED AUTHOR AUTHOR'S ORGANIZ ATION 12/29/2024 [facility] DATE CREATED AUTHOR AUTHOR'S ORGANIZ ATION 12/31/2024 [facility] Reason for Visit (unrecogniz ed section and content) Reason Comments Med Refill Reason Onset Date Comments Med Refill 12/06/2023 Care Teams (unrecognized sec tion and content) Team Status: Active Member Role Status Dates Heaven Staley NP-Jonny Primary Care Provider Active Team Status: Active Member Role Status Dates WANDA Rich Primary Care Provider Active Start: August 18, 2024 Juliana Landeros MD Attending Provider Active Start : August 18, 2024 Team Status: Active Member Role Status Dates WNADA Rich Primary Care Provider Active Start: October 09, 2024 Juliana Landeros MD Attending Provider Active Start : October 09, 2024 Team Status: Inactive Member Role Status Dates WANDA Rich Primary Care Provider Active Start: October 19, 2024 End: October 19, 2024 Juliana Landeros MD Attending Provider Active Start : October 19, 2024 End: October 19, 2024 Police Dispatcher Relationship Specialty Start Date End Date Heaven Staley APRN-GREASE MACHINE WORKER [address] [facility] [place] [address] PCP - General Family Medicine 10/30/21 Police Dispatcher Relationship Specialty Start Date End Date Heaven Staley 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 [address] [facility] [place] [address] PCP - General Family Medicine 10/30/21 Police Dispatcher Relationship Specialty Start Date End Date Heaven Staley 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 [address] [facility] [place] [address] PCP - General Family Medicine 10/30/21 Police Dispatcher Relationship Specialty Start Date End Date Heaven Staley 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 [address] [facility] [place] [address] PCP - General Family Medicine 10/30/21 Team [...] BASED ON THE PRIMARY CLINICAL RECORDS. [facility] [employer] provides no warranty or guarantee of the accuracy or completeness of information in this document.
[2025-01-15 09:19] VITALS: BP 121/64; PULSE 70; TEMP 36.2; O2SAT 99
[2025-01-15] MEDS: BUPIVACAINE HCL 0.25% PF 25 MG/10 ML VIAL INJ (10:24)
[2025-01-15] MEDS: LIDOCAINE HCL 2% 400 MG/20 ML MDV INJ (10:24)
[2025-01-15] MEDS: IOHEXOL 240 MG/ML - 10 ML VIAL 24 MG INJ (10:24)
[2025-01-15] MEDS: DEXAMETHASONE SOD PHOS 10 MG/ML VIAL INJ (10:24)
--- NOTE | 2025-01-15 10:24 | P.ON_ITS ---
Date of procedure: 01/15/25 Pre-op diagnosis: M54.12 Post-op diagnosis: same as pre-op Procedure: Procedure: Right C5-6, 6-7 transforaminal epidural steroid injection Medications: Bupivacaine 0.25% 1cc, lidocaine 2% 1cc, dexamethasone 10mg The patient was seen and examined in the preoperative holding area.? Informed consent was obtained and placed on the chart.? Patient was brought to the medical procedure unit and placed in the prone position where a timeout was completed verifying the correct patient, procedure site, position, and planned special equipment using sterile aseptic technique.? Under direct fluoroscopic visualization a 25-gauge Quincke tipped spinal needle was advanced to the designated neural foramen where contrast dye was injected to show adequate spread.? The needle was inserted at level right C5-6. There was no evidence of vascular or adverse uptake.? Epidural spread was appreciated.? The above- mentioned injectate was then placed in a 1.5 mL aliquot preceded by negative aspiration.? The needle was removed. The needle was inserted and the procedure repeated at level right C6-7.? The surgery site was covered.? Patient was taken to the postprocedural recovery area and monitored for an appropriate length of time before found suitable for discharge in the accompaniment of a responsible adult. Anesthesia: Local Surgeon: Florina Devlin Pathology: none sent Condition: stable Disposition: no change
[2025-01-15 14:23] VITALS: BP 114/66; BP 126/66; PULSE 70; O2SAT 94; O2SAT 97
== END 2025-01-15 10:28 | disposition home or self-care (01) ==
PROVIDERS: PCP Nurse Practitioner Family; Visit Provider Anesthesiology
DX: M54.12 Radiculopathy, cervical region (principal)
CPT/HCPCS: 64479; 64480; J0665; J1100; Q9966

== ENCOUNTER 2025-01-25 08:50 | Outpatient (OUT) | payer MEDICARE, SELFPAY ==
--- OUTSIDE RECORDS SUMMARY | 2025-01-11 10:30 | XMS_ITS | Encounter Summary ---
Author Organization [facility] Address [address] [place] [address] Care Team Providers Care Floor Coverings Salesperson Name Role Phone Heaven Calderon VICKIE Primary Care Provider [phone] Encounter Details Date Type Department Care Team (Latest Contact Info) Description 01/11/2025 10:30 AM EDT Ancillary Procedure [facility] [address] [place] [phone] Pre-operative cardiovascular examination, ICD in place Social History Tobacco Use Types Packs/Day Years [...] as of this encounter Plan of Treatment Upcoming Encounters Date Type Department Care Team (Late st Contact Info) Description 04/03/2025 1:00 PM EST Ancillary Procedure [facility] [address] [place] [phone] 04/03/2025 1:15 PM EST Office Visit [facility] [address] [place] [address] Robert Madden MD [address] [place], [place] [address] [phone] documented as of this encounter Procedures Procedure Name Priority Date/Time Associated Diagnosis Comments CARDIAC DEVICE CHECK CHECK - REMOTE Routine 01/15/2025 3:52 PM EDT Pre-operative cardiovascular examination, ICD in place documented in this encounter Results * CARDIAC DEVICE CHECK - REMOTE - ICD (01/15/2025 3:52 PM EDT) us Robert Madden MD CV IMPLANTABLE CARDIAC DEVICE MD OCEDURES Final Result CPACS documented in this encounter Visit Diagnoses Diagnosis Pre-operative cardiovascular examination, ICD in place Pre-operative cardiovascular examination documented in this encounter Care Teams Floor Coverings Salesperson Relationship Specialty Start Date End Date Heaven Calderon CNP [facility] [facility], [place] [address] PCP - General Family Medicine 05/18/23 documented as of this encounter
--- OUTSIDE RECORDS SUMMARY | 2025-01-25 08:52 | XMS_ITS | Encounter Summary ---
Author Organization [facility] s tem Address [id number] [place] [address] Care Team Providers Care Dye Mixer Name Role Phone Heaven Calderon Jessenia PRECISION LENS POLISHER-COTTON STOMPER Primary Care Provider Reason for Visit * Reason Comments Med Refill Encounter Details Date Type Department Care Team (Late st Contact Info) Description 03/10/2024 Refill [facility] [address] [place] [phone] Mac Erwin APRN-COTTON STOMPER [address] [place] [address] Med Refill Social History Tobacco Use Types [...] on filedocumented in this encounter Care Teams Dye Mixer Relationship Specialty Start Date End Date Heaven Calderon, PRECISION LENS POLISHER-COTTON STOMPER [address] [place] [phone] PCP - General Family Medicine 10/30/21 documented as of this encounter
--- OUTSIDE RECORDS SUMMARY | 2025-01-25 08:52 | XMS_ITS | Encounter Summary ---
Author Organization [facility] s [facility] Address [id number] [place] [address] Care Team Providers Care Health Services Coordinator Name Role Phone Heaven Calderon Jessenia SCORING MACHINE OPERATOR-FURNACE REPAIR MECHANIC Primary Care Provider Reason for Visit * Reason Comments Med Refill Encounter Details Date Type Department Care Team (Late st Contact Info) Description 03/16/2023 Refill [facility] [address] [place] [phone] Carlos Nielson, SCORING MACHINE OPERATOR-FURNACE REPAIR MECHANIC [address] [place] [address] Med Refill Social History Tobacco Use Types [...] complete labs as ordered. Letter sent to [employer]. documented in this encounter Plan of Treatment Not on file documented as of this encounter Visit Diagnoses Diagnosis Persistent atrial fibrillation (CMS-HCC)- Primary Atrial fibrillation documented in this encounter Care Teams Health Services Coordinator Relationship Specialty Start Date End Date Heaven Calderon, TAO-FURNACE REPAIR MECHANIC [address] [place] [address] PCP - General Family Medicine 10/30/21 documented as of this encounter
--- OUTSIDE RECORDS SUMMARY | 2025-01-25 08:52 | XMS_ITS | Clinical Summary ---
Author Organization [facility] Address [address] [place] [address] Care Team Providers Care Rewinder Name Role Phone Heaven Calderon VICKIE Primary Care Provider [phone] Allergies Active Allergy Reactions Criticality Noted Date Comments Codeine 06/06/2014 Other reaction(s): Intolerance-unknown Lisinopril 10/19/2014 Other reaction(s): Dry cough Pregabalin Other 12/01/2023 Medications pantoprazole (ProtoNix) 40 mg packet Take 40 mg by mouth in the morning. Active pramipexole (Mirapex) 1 mg tablet Take 1.5 mg by mouth in the morning. 3 Active oxyCODONE-acetami nophen (Percocet) 5-325 mg tablet Take 1 tablet by mouth if needed in the morning, at noon, and at bedtime for moderate pain (4-7 pain score). 3 Active sucralfate (Carafate) 1 gram tablet Take 1 g by mouth if needed. 2 Active traZODone (Desyrel) 50 mg tablet Take 50 mg by mouth at bedtime. 3 Active diclofenac (Voltaren) 50 mg EC tablet [...] Take 50 mg by mouth at bedtime. 4 Active metoprolol succinate XL (Toprol-XL) 50 mg 24 hr tabletIndications :Palpitations Take 1 tablet (50 mg) by mouth in the morning. 90 tablet 3 4 05/29/20 25 Active furosemide (Lasix) 40 mg tabletIndications :Benign hypertensive heart disease with heart failure (CMS/HCC) TAKE 1 TABLET (40 MG) BY MOUTH ONCE DAILY DIRECTED. 90 tablet 3 5 Active spironolactone (Aldactone) 25 mg tabletIndications :Benign hypertensive heart disease with heart failure (CMS/HCC) TAKE 1 TABLET (25 MG) BY MOUTH ONCE DAILY DIRECTED. 90 tablet 3 5 Active losartan (Cozaar) 25 mg tabletIndications :Congestive heart failure, unspecified HF chronicity, unspecified heart failure type (CMS/HCC) Take 1 tablet (25 mg) by mouth once daily as directed. 90 tablet 3 5 Active Active Problems Problem Noted Date Diagnosed [...] Plan (02/04/2023 3:00 PM EDT): -s/p watchmen 2018, on aspirin Chronic systolic CHF (congestive heart failure) 08/25/2018 Obstructive sleep apnea syndrome in adult 2016 Assessment & Plan (02/04/2023 2:56 PM EDT): -adv compliance with cpap Persistent atrial fibrillation 10/23/2015 Overview (12/01/2023): -[id number] at least 5 for age x2, gender, hypertension, CHF, on aspirin s/p watchmen S/P AV node ablation- currently is V paced No concerning symptoms today Assessment & Plan (07/14/2023 10:58 AM EST): -[id number] at least 5 for age x2, gender, hypertension, CHF, on aspirin s/p watchmen Continue meds as prescribed Assessment & Plan (02/04/2023 3:00 PM EDT): -[id number] at least 5 for age x2, gender, [...] Encounters Date Type Department Care Team Description 01/11/2025 10:30 AM EDT Ancillary Procedure [facility] [address] [place] [phone] Pre-operative cardiovascular examination, ICD in place 01/11/2025 Orders Only [facility] [address] [place], [place] [address] [address] Robert Madden MD 12/11/2024 4:05 AM EDT Ancillary Procedure [facility] [address] [place], [place] [address] [address] Pre-operative cardiovascular examination, ICD in place 12/09/2024 Orders Only [facility] [address] [facility] [address] Erlin Lyn MD 11/11/2024 Refill [facility] at [facility] [address] [place] [facility] [place] [address] Matt Jefferson MD Congestive heart failure, unspecified HF chronicity, unspecified heart failure type (CMS/HCC) 11/10/2024 8:50 PM EDT Ancillary Procedure [facility] [address] [place] [address] Pre-operative cardiovascular examination, ICD in place 11/10/2024 4:25 PM EDT Ancillary Procedure [facility] [address] [place] [address] Pre-operative cardiovascular examination, ICD in place 11/10/2024 Orders Only [facility] [address] [place] [address] Erlin Lyn MD 10/31/2024 Orders Only [facility] [address] [place] [address] Robert Madden MD from Last 3 Months Family History Medical [...] 08/18/2024 10:53 AM EDT Plan of Treatment Upcoming Encounters Date Type Department Care Team (Late st Contact Info) Description 04/03/2025 1:00 PM EST Ancillary Procedure [address] [address] 04/03/2025 1:15 PM EST Office Visit [address] [address] Robert Madden MD [address] [place] [address] Health Maintenance Due Date Last Done Comments [...] this topic Medical Devices Implanted Type Area Investigative Agent Device Identifier Shelf Expiration Date Model / Serial / Lot Vigilant X4 Repossession Agent-D Is-1/Df4/Is4 Implanted:Qty: 1 on 07/05/2023 by Robert Madden MD at [facility] MAIN LINE ASSEMBLER-D ICD [employer] [id number] 05/09/2025 [id number] / [id number] / [place] 4-Front S Active Fix Single Coil 59cm Implanted:Qty: 1 on 07/05/2023 by Robert Madden MD at [facility] Lead [employer] [id number] 01/20/2025 [id number] / [id number] / Lead,Acuity X4,Straight - [id number] - [id number] Implanted:Qty: 1 on 07/05/2023 by Robert Madden MD at [facility] Lead [employer] [id number] 11/19/2024 [id number] / [id number] / Procedures Procedure Name Priority Date/Time Associated Diagnosis Comments CARDIAC DEVICE CHECK CHECK - REMOTE Routine 01/15/2025 3:52 PM EDT Pre-operative cardiovascular examination, ICD in place CARDIAC DEVICE CHECK - REMOTE - ICD Routine 01/11/2025 12:00 AM EDT CARDIAC DEVICE CHECK CHECK - REMOTE Routine 12/27/2024 12:23 PM EDT Pre-operative cardiovascular examination, ICD in place CARDIAC DEVICE CHECK - REMOTE - ICD Routine 12/09/2024 12:00 AM EDT CARDIAC DEVICE CHECK CHECK - REMOTE Routine 12/06/2024 4:37 PM EDT Pre-operative cardiovascular examination, ICD in place CARDIAC DEVICE CHECK CHECK - REMOTE Routine 12/06/2024 2:07 PM EDT Pre-operative cardiovascular examination, ICD in place CARDIAC DEVICE CHECK - REMOTE - ICD Routine 11/10/2024 12:00 AM EDT CARDIAC DEVICE CHECK - REMOTE - ICD Routine 10/31/2024 12:00 AM EDT from Last 3 Months Results * CARDIAC DEVICE CHECK - REMOTE - ICD (01/15/2025 3:52 PM EDT) Only the most recent of4 resultswithin the time period is included. Robert Madden MD CV IMPLANTABLE CARDIAC DEVICE [place] OCEDURES Final Result CPACS * Cardiac device check - Remote ICD (01/11/2025 12:00 AM EDT) Only the most recent of4 resultswithin the time period is included. Anatomical Region Laterality Modality Other 01/11/2025 Robert Madden MD CV IMPLANTABLE CARDIAC DEVICE [place] OCEDURES Final Result from Last 3 Months Insurance [employer] MEDICARE ADVANTAGE Care Teams Rewinder Relationship Specialty Start Date End Date Heaven Calderon CNP [facility], [address] [place], [place] [id number] PCP - General Family Medicine 05/18/23
--- OUTSIDE RECORDS SUMMARY | 2025-01-25 08:52 | XMS_ITS | Encounter Summary ---
Author Organization [employer] tem Address [facility][id number] [address] [place] [address] Care Team Providers Care Security Intelligence Analyst Name Role Phone Heaven Calderon EMERGENCY COMMUNICATIONS OPERATOR-PORTFOLIO STRATEGIST Primary Care Provider Encounter Details Date Type Department Care Team (Late st Contact Info) Description 08/21/2021 Orders Only [facility] [address] [place] [phone] Valerie Chavez MA Chronic systolic CHF (congestive heart failure) ([facility]); Cardiomyopathy, nonischemic ([facility]) Social History Tobacco Use Types Packs/Day Years [...] 08/21/2021 Chronic systolic CHF (congestive heart failure) ([facility]) LIPID PROFILE Routine 08/21/2021 BASIC METABOLIC PANEL Routine 08/21/2021 Cardiomyopathy, nonischemic ([facility]) Chronic systolic CHF (congestive heart failure) ([facility]) documented in this encounter Results * Lipid [...] Basic Metabolic Panel (08/21/2021) 08/21/2021 Mac Erwin APRN-PORTFOLIO STRATEGIST LAB BLOOD ORDERABLES Final Result [facility] * Magnesium (08/21/2021) 08/21/2021 Mac Erwin APRN-PORTFOLIO STRATEGIST LAB BLOOD ORDERABLES Final Result Performing Organization Address City/[facility]/ZIP Co de Phone Number [facility] documented in this encounter Visit Diagnoses Diagnosis Chronic systolic CHF (congestive heart failure) ([facility]) Cardiomyopathy, nonischemic ([facility]) Other primary cardiomyopathies documented in this encounter Care Teams Security Intelligence Analyst Relationship Specialty Start Date End Date Heaven Calderon APRN-CNP [address] [facility] [place] [address] PCP - General Family Medicine 10/30/21 documented as of this encounter
--- OUTSIDE RECORDS SUMMARY | 2025-01-25 08:52 | XMS_ITS | Encounter Summary ---
Author Organization [facility] Address [address] [place] [address] Care Team Providers Care Slot Technician Name Role Phone Heaven Calderon VICKIE Primary Care Provider [phone] Encounter Details Date Type Department Care Team (Late st Contact Info) Description 11/10/2024 Orders Only [facility] [address] [place] [address] Erlin Lyn MD [address] [place] [address] Social History Tobacco Use Types [...] Description 04/03/2025 1:00 PM EST Ancillary Procedure [facility] [address] [place] [address] 04/03/2025 1:15 PM EST Office Visit [facility] Heart at [facility] [address] [place] [address] Robert Madden MD [address] [place] [address] documented as of this encounter Procedures Procedure Name Priority Date/Time Associated Diagnosis Comments CARDIAC DEVICE CHECK - REMOTE - ICD Routine 11/10/2024 12:00 AM EDT documented in this encounter Results * Cardiac device check - Remote ICD (11/10/2024 12:00 AM EDT) Anatomical Region Laterality Modality Other 11/10/2024 Erlin Lyn MD CV IMPLANTABLE CARDIAC DEVICE PROCEDURES Final Result documented in this encounter Visit Diagnoses Not on filedocumented in this encounter Care Teams Slot Technician Relationship Specialty Start Date End Date Heaven Calderon CNP [facility] [facility], [place] [address] PCP - General Family Medicine 05/18/23 documented as of this encounter
--- OUTSIDE RECORDS SUMMARY | 2025-01-25 08:52 | XMS_ITS | Encounter Summary ---
Author Organization [facility] Address [id number] [address] [place] [address] Care Team Providers Care Plaster Machine Operator Name Role Phone Heaven Calderon Jessenia FINE WIRE DRAWER-LAY UPS ASSEMBLER Primary Care Provider Reason for Visit * Reason Comments Med Refill Encounter Details Date Type Department Care Team (Late st Contact Info) Description 04/27/2023 Refill [facility] [address] [place] [phone] Mac Erwin APRN-LAY UPS ASSEMBLER [address] [place] [address] Med Refill Social History Tobacco Use Types [...] on filedocumented in this encounter Care Teams Plaster Machine Operator Relationship Specialty Start Date End Date Heaven Calderon, FINE WIRE DRAWER-LAY UPS ASSEMBLER [address] [place] [address] PCP - General Family Medicine 10/30/21 documented as of this encounter
--- OUTSIDE RECORDS SUMMARY | 2025-01-25 08:52 | XMS_ITS | Encounter Summary ---
Author Organization [facility] Address [address] [place] [address] Care Team Providers Care Design Printer Balloon Name Role Phone Heaven Calderon VICKIE Primary Care Provider [phone] Encounter Details Date Type Department Care Team (Late st Contact Info) Description 10/10/2024 Orders Only [facility] [address] [place] [address] Erlin Lyn MD [address] [place] [address] Social History Tobacco Use Types [...] Description 04/03/2025 1:00 PM EST Ancillary Procedure [facility] [address] [place] [address] 04/03/2025 1:15 PM EST Office Visit [facility] at [facility] [address] [place] [address] Robert Madden MD [address] [place] [address] documented as of this encounter Procedures Procedure [...] on filedocumented in this encounter Care Teams Design Printer Balloon Relationship Specialty Start Date End Date Heaven Calderon CNP [facility] [facility], [place] [address] PCP - General Family Medicine 05/18/23 documented as of this encounter
--- OUTSIDE RECORDS SUMMARY | 2025-01-25 08:52 | XMS_ITS | Clinical Summary ---
Author Organization [employer] tem Address [id number] [address] [place] [address] Care Team Providers Care Biomedical Engineering Supervisor Name Role Phone Heaven Calderon APRN-FISHER GILL NET Primary Care Provider Allergies Active Allergy Reactions [...] tabletIndication s:Chronic systolic CHF (congestive heart failure) ([facility]) Take 1 tablet (25 mg total) [...] history exists Medical Devices Implanted Type Area Director Physical Therapy Device Identifier Shelf Expiration Date Model / Serial / Lot Mesh [id number] 3d Rect Plstr Clgn Symbotex 2 Sd Comp Mfl Babsr Rpl [id number] - Sna - [id number] Implanted:Qty : 1 on 06/30/2022 by Jona Foley DO at [facility] Mesh N/A: Abdomen [employer] 04/29/2023 [id number] / NA / [id number] Dev Clsr 30fr Watchman 30mm - [id number] Implanted:Qty : 1 on 10/28/2018 by Kaushal Hines MD at [facility] Other Implant N/A: Heart [employer] 06/23/2021 [id number] / / [id number] Insurance [employer] MEDICARE Care Teams Biomedical Engineering Supervisor Relationship Specialty Start Date End Date Heaven Calderon, LINE UP EXAMINER-FISHER GILL NET [address] [facility] [address] PCP - General Family Medicine 10/30/21
--- OUTSIDE RECORDS SUMMARY | 2025-01-25 08:52 | XMS_ITS | Encounter Summary ---
Author Organization [facility] Address [address] [place] [address] Care Team Providers Care Top Icer Name Role Phone Heaven Calderon VICKIE Primary Care Provider [phone] Encounter Details Date Type Department Care Team (Late st Contact Info) Description 10/31/2024 Orders Only [facility] [address] [place] [address] Robert Madden MD [address] [place] [address] Social History Tobacco Use Types [...] Description 04/03/2025 1:00 PM EST Ancillary Procedure [facility] [address] [place] [address] 04/03/2025 1:15 PM EST Office Visit [facility] at [facility] [address] [place] [address] Robert Madden MD [address] [place] [address] documented as of this encounter Procedures Procedure Name Priority Date/Time Associated Diagnosis Comments CARDIAC DEVICE CHECK - REMOTE - ICD Routine 10/31/2024 12:00 AM EDT documented in this encounter Results * Cardiac device check - Remote ICD (10/31/2024 12:00 AM EDT) Anatomical Region Laterality Modality Other 10/31/2024 us Robert Madden MD CV IMPLANTABLE CARDIAC DEVICE [place] OCEDURES Final Result documented in this encounter Visit Diagnoses Not on filedocumented in this encounter Care Teams Top Icer Relationship Specialty Start Date End Date Heaven Calderon CNP [address] [facility], [place] [address] PCP - General Family Medicine 05/18/23 documented as of this encounter
--- OUTSIDE RECORDS SUMMARY | 2025-01-25 08:52 | XMS_ITS | Encounter Summary ---
Author Organization [employer] tem Address [facility][id number] [address] [place] [address] Care Team Providers Care Employment Legal Assistant Name Role Phone Heaven Calderon Jessenia BURGER-SLIDE MACHINE TENDER Primary Care Provider Reason for Visit * Reason Onset Date Comments Med Refill Med Refill 06/26/2019 Encounter Details Date Type Department Care Team (Late st Contact Info) Description 06/17/2019 Refill [facility] [address] [place] [address] Phi Limon MD [address] [place] [address] Med Refill; Med Refill Social History Tobacco [...] further furosemide refills. Kristin Billingsley RN 06/22/19 7127 documented in this encounter Plan of Treatment Not on file documented as of this encounter Results * (ABNORMAL) Magnesium (06/26/2019 11:00 AM EST) Magnesium 1.7(L) 1.8 - 2.6 mg/dL 06/26/2019 4:48 PM EST [facility] Serum / Unknown 06/26/2019 1 1:00 AM EST 06/26/2019 11:01 AM EST us Apple Packer RN LAB BLOOD ORDERABLES Final Res ult [facility] [address] [facility], [address] [place] [address] documented in this encounter Visit Diagnoses Diagnosis half-way current use of diuretic- Primary documented in this encounter Care Teams Employment Legal Assistant Relationship Specialty Start Date End Date Heaven Calderon, ANIMAL CARE ASSISTANT-SLIDE MACHINE TENDER [address] [place] [address] PCP - General Family Medicine 10/30/21 documented as of this encounter
--- OUTSIDE RECORDS SUMMARY | 2025-01-25 08:52 | XMS_ITS | Encounter Summary ---
Author Organization [employer] tem Address [id number] [address] [place] [address] Care Team Providers Care Software Engineer Web Applications Name Role Phone YumikoHeaven Jessenia BURGER-BRAZING MACHINE OPERATOR Primary Care Provider Reason for Visit * Reason Comments Med Refill Encounter Details Date Type Department Care Team (Late st Contact Info) Description 05/31/2023 Refill [facility] [address] [place] [phone] Mike Kowalski MD [address] [place] [address] Med Refill Social History Tobacco Use Types [...] (CMS-HCC) documented in this encounter Care Teams Software Engineer Web Applications Relationship Specialty Start Date End Date Heaven Calderon, LOAN REVIEW MANAGER-BRAZING MACHINE OPERATOR [address] [facility] [place] [address] PCP - General Family Medicine 10/30/21 documented as of this encounter
--- OUTSIDE RECORDS SUMMARY | 2025-01-25 08:52 | XMS_ITS | Encounter Summary ---
Author Organization [facility] Address [address] [place] [address] Care Team Providers Care Truck Driver'S Offsider Name Role Phone Heaven Calderon VICKIE Primary Care Provider [phone] Encounter Details Date Type Department Care Team (Late st Contact Info) Description 12/09/2024 Orders Only [facility] [address] [place] [address] Erlin Lyn MD [address] [place] [address] Social History Tobacco Use Types [...] Description 04/03/2025 1:00 PM EST Ancillary Procedure [facility] [address] [place] [address] 04/03/2025 1:15 PM EST Office Visit [facility] Heart at [facility] [address] [place] [address] Robert Madden MD [address] [place] [address] documented as of this encounter Procedures Procedure Name Priority Date/Time Associated Diagnosis Comments CARDIAC DEVICE CHECK - REMOTE - ICD Routine 12/09/2024 12:00 AM EDT documented in this encounter Results * Cardiac device check - Remote ICD (12/09/2024 12:00 AM EDT) Anatomical Region Laterality Modality Other 12/09/2024 Erlin Lyn MD CV IMPLANTABLE CARDIAC DEVICE PROCEDURES Final Result documented in this encounter Visit Diagnoses Not on filedocumented in this encounter Care Teams Truck Driver'S Offsider Relationship Specialty Start Date End Date Heaven Calderon CNP [facility] [facility], [place] [address] PCP - General Family Medicine 05/18/23 documented as of this encounter
--- OUTSIDE RECORDS SUMMARY | 2025-01-25 08:52 | XMS_ITS | Encounter Summary ---
Author Organization [facility] Address [address] [place] [address] Care Team Providers Care Airport Planner Name Role Phone Heaven Calderon VICKIE Primary Care Provider [phone] Encounter Details Date Type Department Care Team (Late st Contact Info) Description 01/11/2025 Orders Only [facility] [address] [place] [address] Robert Madden MD [address] [place] [address] Social History Tobacco Use Types [...] Description 04/03/2025 1:00 PM EST Ancillary Procedure [facility] [address] [place] [address] 04/03/2025 1:15 PM EST Office Visit [facility] Heart at [facility] [address] [place] [address] Robert Madden MD [address] [place] [address] documented as of this encounter Procedures Procedure Name Priority Date/Time Associated Diagnosis Comments CARDIAC DEVICE CHECK - REMOTE - ICD Routine 01/11/2025 12:00 AM EDT documented in this encounter Results * Cardiac device check - Remote ICD (01/11/2025 12:00 AM EDT) Anatomical Region Laterality Modality Other 01/11/2025 us Robert Madden MD CV IMPLANTABLE CARDIAC DEVICE [place] OCEDURES Final Result documented in this encounter Visit Diagnoses Not on filedocumented in this encounter Care Teams Airport Planner Relationship Specialty Start Date End Date Heaven Calderon CNP [address], [place] [address] PCP - General Family Medicine 05/18/23 documented as of this encounter
--- OUTSIDE RECORDS SUMMARY | 2025-01-25 08:52 | XMS_ITS | Encounter Summary ---
Author Organization [employer] tem Address [id number] [address] [place] [address] Care Team Providers Care Field Checker Name Role Phone Heaven Calderon APRN-DINING ROOM HELPER Primary Care Provider Encounter Details Date Type Department Care Team (Late st Contact Info) Description 06/17/2022 Telephone [facility] [address] [place] [phone] Kathy Joyce RMA Social History Tobacco Use [...] on filedocumented in this encounter Care Teams Field Checker Relationship Specialty Start Date End Date Heaven Calderon APRN-VICKIE [address] [place] [address] PCP - General Family Medicine 10/30/21 documented as of this encounter
--- OUTSIDE RECORDS SUMMARY | 2025-01-25 08:52 | XMS_ITS | Encounter Summary ---
Author Organization [employer] tem Address [id number] [address] [place] [address] Care Team Providers Care Chief Medical Physicist Name Role Phone Heaven Calderon Primary Care Provider Reason for Visit * Reason Comments Med Refill Encounter Details Date Type Department Care Team ([facility] st Contact Info) Description 10/09/2018 Refill [facility] [address] [facility] [address] [place] [address] Jacky Stoddard, DO [address] [facility] [place] [address] Med Refill Social History Tobacco [...] on filedocumented in this encounter Care Teams Chief Medical Physicist Relationship Specialty Start Date End Date Heaven Calderon APRN-CNP [address] [facility] [address] PCP - General Family Medicine 10/30/21 documented as of this encounter
--- OUTSIDE RECORDS SUMMARY | 2025-01-25 08:52 | XMS_ITS | Clinical Summary ---
Author Organization [facility] Healthcare Address [address] [place] [address] Care Team Providers Care Senior Air Director Name Role Phone Heaven Calderon MD Unavailable [phone] Allergies Active Allergy Reactions Criticality Noted [...] , 06/10/2020, 04/10/2019, Additional history exists Insurance [facility] [employer] [employer] Care Teams Senior Air Director Relationship Specialty Start Date End Date Heaven Calderon MD [address] [place] [id number] Referring Physician Family Medicine 11/11/23
--- OUTSIDE RECORDS SUMMARY | 2025-01-25 08:52 | XMS_ITS | Encounter Summary ---
[id number] [address] [place] [address] Care Team Providers Care Director Regulatory Compliance Name Role Phone Heaven Calderon APRN-ATHLETIC TRAINER Primary Care Provider Reason for Visit * Reason Comments Med Refill Encounter Details Date Type Department Care Team (Late st Contact Info) Description 07/29/2023 Refill [facility] [address] [place] [address] [place] [phone] Demarcus De La Paz PA-C [address] [id number] Med Refill Social History Tobacco Use Types [...] on filedocumented in this encounter Care Teams Director Regulatory Compliance Relationship Specialty Start Date End Date Heaven Calderon, AQUA AMMONIA OPERATOR-ATHLETIC TRAINER [address] [place] [phone] PCP - General Family Medicine 10/30/21 documented as of this encounter
--- OUTSIDE RECORDS SUMMARY | 2025-01-25 08:56 | XMS_ITS | CCD ---
Author Organization [facility] Care Team Providers Care Agricultural Inspector Name Role Phone JOHNSON ., DR JAYLON Ruelas Admitting Unavailable ORNELAS ., DR JAYLON Ruelas Attending Unavailable LUÍS, HEAVEN Primary Care Unavailable ORNELAS ., DR JAYLON Ruelas Consulting Unavailable MICHELINE MOLINA Consulting Unavailable JOHNSON ., DR JAYLON Ruelas Admitting Unavailable ORNELAS ., DR JAYLON Ruelas Attending Unavailable [facility] Primary Care Unavailable RODRIGUEZ ., SABRINA Consulting Unavailable ORNELAS ., DR JAYLON Ruelas Admitting Unavailable ORNELAS ., DR JAYLON Ruelas Attending Unavailable [facility] Primary Care Unavailable RODRIGUEZ ., SABRINA Consulting Unavailable [facility] Primary Care Unavailable LAKSHMIPATHY ., NARENDRANATH Admitting Charity vailable LAKSHMIPATHY ., NARENDRANATH Attending Charity vailable LAKSHMIPATHY ., NARENDRANATH Consulting Charity vailable LAKSHMIPATHY ., NARENDRANATH Admitting Charity vailable LAKSHMIPATHY ., NARENDRANATH Attending Charity vailable [facility] Primary Care Unavailable LUÍS, HEAVEN Admitting Unavailable HEAVEN STALEY Attending Unavailable [facility] Care Unavailable DR OSWALDO VALENZUELA Consulting Unavailable HEAVEN STALEY Consulting Unavailable LUÍS, [facility] Primary Care Unavailable DAREK .KEILY [...] BIRD Referring Unavailable NAVID, BIRD Referring Unavailable DIANA, SHAYY [...] , Florina Bragg Attending Unavailable Giedraitis , Andrius Bragg Attending Unavailable Giedraitis , Andri Vanita Attending Unavailable Allergies Allergy Classification Reported Allergen(s) Allergy Type Date of Onset Reaction(s) Facility (4 sources) Codeine; Translations: [CODEINE] Drug Allergy 06-06-2014 [facility] (5 sources) Codeine [facility] Lisinopril; Translations: [LISINOPRIL] Drug Allergy 10-19-2014 [facility] (3 sources) pregabalin; Translations: [PREGABALIN] Drug Allergy 12-01-2023 [facility] Medications Current Medications Medication Drug Class(es) [...] 30 tablet 1 06/08/2023 Active lactobacillus acidophilus [id number] unt oral capsule (5 sources) take 1 [...] disease (2 sources) Atherosclerotic heart disease of [place] coronary artery without angina pectoris; Translations: [Atherosclerotic heart disease of [place] coronary artery without angina pectoris] Onset: 08-18-2024 [...] Episodic Other aftercare (1 source) 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; Translations: [OTH RECOVERY ADVOCATE CURRENT DRUG THERAPY] Onset: 05-19-2022 Episodic Other [...] Value Interpretation Reference Range Facility Orders Onlyon 01-11-2025 Orders Only [id number] Radha Gutiérrez 1945 F Date Provider Department Center 01/11/2025 [facility] Family History Problem Relation Age of Onset Heart failure Father Family Status - Relation Status Age at Father Normal [facility] Erythrocyte distribution wid th Auto (RBC) [Ratio]on 10-09-2024 Erythrocyte distribution width (RBC) [Ratio] Erythrocyte distribution width [Ratio] by Automated count High 11.0-15.0 [facility] Estimated glomerular filtrat ion rate (GFR) non- Americanon 10-09-2024 GFR/1.73 sq M.predicted among non-blacks MDRD (S/P/Bld) [Vol rate/Area] Estimated glomerular filtration rate (GFR) non- Low >=60 mL/min/1.73m 2 [facility] Hematocrit Auto (Bld) [Volum e fraction]on 10-09-2024 Hematocrit (Bld) [Volume fraction] Hematocrit [Volume Fraction] of Blood by Automated count Low 36.0-48.0 [facility] Hemoglobin [Mass/volume] in Bloodon 10-09-2024 Hemoglobin (Bld) [Mass/Vol] Hemoglobin [Mass/volume] in Blood Low 12.0-16.0 [facility] Iron binding capacity [Mass/ volume] in Serum or Plasmaon 10-09-2024 Iron binding capacity [Mass/Vol] Iron binding capacity [Mass/volume] in Serum or Plasma 250.0-450.0 [facility] Iron saturation [Mass Fracti on] in Serum or Plasmaon 10-09-2024 Iron saturation [Mass fraction] Iron saturation [Mass Fraction] in Serum or Plasma [facility] Laboratory - Chemistry and C hemistry - challengeon 10-09-2024 Albumin [Mass/Vol] 3.2 g/dL Low 3.4-5.0 [facility] Calcium [Mass/Vol] 8.9 mg/dL 8.5-10.1 [facility] Chloride [Moles/Vol] 105 mmol/L 98-107 [facility] CO2 [Moles/Vol] 28.4 mmol/L 21.0-32.0 [facility] Creatinine [Mass/Vol] 1.33 mg/dL High 0.55-1.02 [facility] Ferritin [Mass/Vol] 13.0 ng/mL 8.0-252.0 [facility] GFR/1.73 sq M.predicted MDRD (S/P/Bld) [Vol rate/Area] 47 mL/min/{1.73_m2} Low >=60 mL/min/1.73m 2 [facility] Glucose [Mass/Vol] 85 mg/dL 74-106 [facility] Iron [Mass/Vol] 33.0 ug/dL Low 50.0-170.0 [facility] Magnesium [Mass/Vol] 2.1 mg/dL 1.8-2.4 [facility] Potassium [Moles/Vol] 4.6 mmol/L 3.5-5.1 [facility] Sodium [Moles/Vol] 139 mmol/L 136-145 [facility] Urate [Mass/Vol] 6.1 mg/dL High 2.6-6.0 [facility] Urea nitrogen [Mass/Vol] 30.0 mg/dL High 7.0-18.0 [facility] Urea nitrogen/Creatinine [Mass ratio] 22.6 mg/mg [facility] Laboratory - Urinalysison Protein (U) [Mass/Vol] 15.7 mg/dL High <=11.9 [facility] Leukocytes [#/volume] correc halie for nucleated erythrocytes in Blood by Automated counon 10-09-2024 WBC corrected for nucl RBC Auto (Bld) [#/Vol] Leukocytes [#/volume] corrected for nucleated erythrocytes in Blood by Automated coun 4.0-11.0 [facility] MCH Auto (RBC) [Entitic mass ]on 10-09-2024 MCH (RBC) [Entitic mass] MCH [Entitic mass] by Automated count 26.7-34.0 [facility] MCHC Auto (RBC) [Mass/Vol]on 10-09-2024 MCHC (RBC) [Mass/Vol] MCHC [Mass/volume] by Automated count 29.9-35.2 [facility] MCV Auto (RBC) [Entitic vol] on 10-09-2024 MCV (RBC) [Entitic vol] MCV [Entitic volume] by Automated count 81.0-99.0 [facility] No Panel Informationon 10-09 25-Hydroxy Vitamin D Total 46.5 ng/mL [facility] Comment on above: <20 ng/mL Vit D defi cient20-<30 ng/mL Vit D ubbztuadlqwf64-418 ng/mL Vit D sufficient>100 ng/mL Potential Toxicity Parathyroid Hormone (Intact) 76 pg/mL Abnormal 15-65 [facility] Comment on above: Performed at: [address] [id number] Director: aR Gonzalez PhD, Phone: [phone] Phosphorus Level 3.9 mg/dL 2.6-4.7 [facility] Urine Random Creatinine 82.53 mg/dL 20.00-300.00 [facility] Platelet mean volume Auto (B ld) [Entitic vol]on 10-09-2024 Platelet mean volume (Bld) [Entitic vol] Platelet mean volume [Entitic volume] in Blood by Automated count 9.5-13.5 [facility] Platelets Auto (Bld) [#/Vol] on 10-09-2024 Platelets (Bld) [#/Vol] Platelets [#/volume] in Blood by Automated count 150-450 [facility] RBC Auto (Bld) [#/Vol]on RBC (Bld) [#/Vol] Erythrocytes [#/volume] in Blood by Automated count Low 4.20-5.40 [facility] Serum or plasma anion gap de terminationon 10-09-2024 Anion gap [Moles/Vol] Serum or plasma anion gap determination [facility] Urine protein/creatinine rat ioon 10-09-2024 Protein/Creatinine (U) [Ratio] Urine protein/creatinine ratio [facility] Erythrocyte distribution wid th Auto (RBC) [Ratio]on 08-18-2024 Erythrocyte distribution width (RBC) [Ratio] Erythrocyte distribution width [Ratio] by Automated count High 11.0-15.0 [facility] Estimated glomerular filtrat ion rate (GFR) non- Americanon 08-18-2024 GFR/1.73 sq M.predicted among non-blacks MDRD (S/P/Bld) [Vol rate/Area] Estimated glomerular filtration rate (GFR) non- Low >=60 mL/min/1.73m 2 [facility] Hematocrit Auto (Bld) [Volum e fraction]on 08-18-2024 Hematocrit (Bld) [Volume fraction] Hematocrit [Volume Fraction] of Blood by Automated count Low 36.0-48.0 [facility] Hemoglobin [Mass/volume] in Bloodon 08-18-2024 Hemoglobin (Bld) [Mass/Vol] Hemoglobin [Mass/volume] in Blood Low 12.0-16.0 [facility] Iron binding capacity [Mass/ volume] in Serum or Plasmaon 08-18-2024 Iron binding capacity [Mass/Vol] Iron binding capacity [Mass/volume] in Serum or Plasma 250.0-450.0 [facility] Iron saturation [Mass Fracti on] in Serum or Plasmaon 08-18-2024 Iron saturation [Mass fraction] Iron saturation [Mass Fraction] in Serum or Plasma [facility] Laboratory - Chemistry and C hemistry - challengeon 08-18-2024 Albumin [Mass/Vol] 3.4 g/dL 3.4-5.0 [facility] Calcium [Mass/Vol] 9.0 mg/dL 8.5-10.1 [facility] Chloride [Moles/Vol] 108 mmol/L High 98-107 [facility] CO2 [Moles/Vol] 26.5 mmol/L 21.0-32.0 [facility] Creatinine [Mass/Vol] 1.36 mg/dL High 0.55-1.02 [facility] Ferritin [Mass/Vol] 17.0 ng/mL 8.0-252.0 [facility] GFR/1.73 sq M.predicted MDRD (S/P/Bld) [Vol rate/Area] 45 mL/min/{1.73_m2} Low >=60 mL/min/1.73m 2 [facility] Glucose [Mass/Vol] 96 mg/dL 74-106 [facility] Iron [Mass/Vol] 71.0 ug/dL 50.0-170.0 [facility] Magnesium [Mass/Vol] 2.4 mg/dL 1.8-2.4 [facility] Potassium [Moles/Vol] 4.7 mmol/L 3.5-5.1 [facility] Sodium [Moles/Vol] 140 mmol/L 136-145 [facility] Urate [Mass/Vol] 6.5 mg/dL High 2.6-6.0 [facility] Urea nitrogen [Mass/Vol] 36.0 mg/dL High 7.0-18.0 [facility] Urea nitrogen/Creatinine [Mass ratio] 26.5 mg/mg [facility] Leukocytes [#/volume] correc halie for nucleated erythrocytes in Blood by Automated counon 08-18-2024 WBC corrected for nucl RBC Auto (Bld) [#/Vol] Leukocytes [#/volume] corrected for nucleated erythrocytes in Blood by Automated coun 4.0-11.0 [facility] MCH Auto (RBC) [Entitic mass ]on 08-18-2024 MCH (RBC) [Entitic mass] MCH [Entitic mass] by Automated count 26.7-34.0 [facility] MCHC Auto (RBC) [Mass/Vol]on 08-18-2024 MCHC (RBC) [Mass/Vol] MCHC [Mass/volume] by Automated count 29.9-35.2 [facility] MCV Auto (RBC) [Entitic vol] on 08-18-2024 MCV (RBC) [Entitic vol] MCV [Entitic volume] by Automated count 81.0-99.0 [facility] No Panel Informationon 08-18 25-Hydroxy Vitamin D Total 45.3 ng/mL [facility] Comment on above: <20 ng/mL Vit D defi cient20-<30 ng/mL Vit D ajuzyhrnayss73-301 ng/mL Vit D sufficient>100 ng/mL Potential Toxicity Parathyroid Hormone (Intact) 106 pg/mL Abnormal 15-65 [facility] Comment on above: Performed at: - [facility] [address] [id number] Director: Ra Gonzalez PhD, Phone: [phone] Phosphorus Level 3.7 mg/dL 2.6-4.7 [facility] Urine Random Creatinine 36.44 mg/dL 20.00-300.00 [facility] Urine Random Total Protein <6.0 mg/dL <=11.9 [facility] Office Visiton 08-18-2024 Follow-up visit [id number] Radha Gutiérrez 1945 F Date Provider Department Center 08/18/2024 [id number] SANCHEZ Family History Problem Relation Age of Onset Heart failure Father Family Status - Relation Status Age at Father Level of Service:82379 [place] OFFICE/OUTPATIENT ESTABLISHED LOW MDM 20 MIN Normal [facility] Platelet mean volume Auto (B ld) [Entitic vol]on 08-18-2024 Platelet mean volume (Bld) [Entitic vol] Platelet mean volume [Entitic volume] in Blood by Automated count 9.5-13.5 [facility] Platelets Auto (Bld) [#/Vol] on 08-18-2024 Platelets (Bld) [#/Vol] Platelets [#/volume] in Blood by Automated count 150-450 [facility] RBC Auto (Bld) [#/Vol]on RBC (Bld) [#/Vol] Erythrocytes [#/volume] in Blood by Automated count Low 4.20-5.40 [facility] Serum or plasma anion gap de terminationon 08-18-2024 Anion gap [Moles/Vol] Serum or plasma anion gap determination [facility] Office Visiton 03-21-2024 Follow-up visit [id number] Radha Gutiérrez 1945 F Date Provider Department Center 03/21/2024 BIRD GEE MAGNUS [place] Family History Problem Relation Age of Onset Heart failure Father Family Status - Relation Status Age at Father Level of Service:34537 [place] OFFICE/OUTPATIENT ESTABLISHED LOW MDM 20 MIN [facility] 36on 02-11-2024 36 Tried to contact patient and she has no VM set up. Will try again on Wednesday. [facility] Documentationon 02-11-2024 Documentation [id number] Radha Gutiérrez 1945 Date Provider Department Center 02/11/2024 TOYA VALENCIA Family History Problem Relation Age of Onset Heart failure Father Family Status - Relation Status Age at Father [facility] 36on 02-08-2024 36 Patient had her [...] have an apt with Dr. Madden until 10/22. Please advise. Thanks. Normal [facility] Telephoneon 02-08-2024 Telephone [id number] Radha Gutiérrez 1945 F Date Provider Department Center 02/08/2024 Aletha-CARIDAD LOVE MAGNUS [facility] Family History Problem Relation Age of Onset Heart failure Father Family Status - Relation Status Age at Father Normal [facility] INSULINon 09-23-2022 Insulin 7.9 uIU/mL Normal 2.6-24.9 [facility] Comment on above: Performed By: #### I NSULIN ####[facility] [address] [place], [place] [address]Dr. Ravin Dior CBC AUTO DIFFon 09-22-2022 BASO # 0.0 103/ul Normal 0.0-0.1 [facility] Comment on above: Performed By: #### C BC ####[facility] [address] [place], [place] [address]Dr. Ravin Dior Basophils/100 WBC (Bld) 0.4 % Normal 0.2-2.0 [facility] Comment on above: Performed By: #### C BC ####[facility] [address] [place], [place] [address]Dr. Ravin Dior EO # 0.6 103/ul Normal 0.0-0.7 [facility] Comment on above: Performed By: #### C BC ####[facility] [address] [place], [place] [address]Dr. Ravin Dior Eosinophils/100 WBC (Bld) 6.6 % Normal 0.9-7.0 [facility] Comment on above: Performed By: #### C BC ####[facility] [address] [place], [place] [address]Dr. Ravin Dior Erythrocyte distribution width (RBC) [Ratio] 16.2 % Critically high 11.0-15.0 [facility] Comment on above: Performed By: #### C BC ####[facility] [address] [place], [place] [address]Dr. Ravin Dior Hematocrit (Bld) [Volume fraction] 43.3 % Normal 36.0-48.0 [facility] Comment on above: Performed By: #### C BC ####[facility] [address] [place] [address]Dr. Ravin Dior Hemoglobin (Bld) [Mass/Vol] 13.4 g/dL Normal 12.0-16.0 [facility] Comment on above: Performed By: #### C BC ####[facility] [address] [place] [address]Dr. Ravin Dior IG # 0.05 10e3/ul Critically high 0.00-0.03 [place] Comment on above: Performed By: #### C BC ####[facility] [address] [place] [address]Dr. Ravin Dior IG % 0.5 % Normal 0.0-0.5 [facility] Comment on above: Performed By: #### C BC ####[facility] [address] [place], [place] [address]Dr. Ravin Dior LYMPH # 2.1 103/ul Normal 1.2-3.8 [facility] Comment on above: Performed By: #### C BC ####[facility] [address] [place], [place] [address]Dr. Ravin Dior Lymphocytes/100 WBC (Bld) 23.1 % Normal 20.5-60.0 [facility] Comment on above: Performed By: #### C BC ####[facility] [address] [place] [address]Dr. Ravin Dior MANUAL DIFF REQ NO Normal [facility] Comment on above: Performed By: #### C BC ####[facility] [address] [place] [address]Dr. Ravin Dior MCH (RBC) [Entitic mass] 29.5 pg Normal 26.7-34.[address] [facility] Comment on above: Performed By: #### C BC ####[facility] [address] [place] [address]Dr. Ravin Dior MCHC (RBC) [Mass/Vol] 30.9 g/dL Normal 29.9-35.[address] [facility] Comment on above: Performed By: #### C BC ####[facility] [address] [place] [id number]. Ravin Dior MCV (RBC) [Entitic vol] 95.4 fL Normal 81.0-99.0 [facility] Comment on above: Performed By: #### C BC ####[facility] [address] [place] [id number]. Ravin Dior MONO # 0.5 103/ul Normal 0.3-0.8 [facility] Comment on above: Performed By: #### C BC ####[facility] [address] [place] [id number]. Ravin Ovi Monocytes/100 WBC (Bld) 5.8 % Normal 1.7-12.0 [facility] Comment on above: Performed By: #### C BC ####[facility] [address] [place], [place] [address]Dr. Ravin Dior NEUT # 5.8 103/ul Normal 1.4-6.5 [facility] Comment on above: Performed By: #### C BC ####[facility] [address] [place], [place] [id number]. Ravin Ovi Neutrophils/100 WBC (Bld) 63.6 % Normal 43.0-75.0 [facility] Comment on above: Performed By: #### C BC ####[facility] [address] [place], [place] [id number]. Ravin Ovi Platelet mean volume (Bld) [Entitic vol] 10.7 fL Normal 9.5-13.[address] [facility] Comment on above: Performed By: #### C BC ####[facility] [address] [place], [place] [address]Dr. Ravin Ovi PLT 223 103/ul Normal 150-[address] [facility] Comment on above: Performed By: #### C BC ####[facility] [address] [place] [id number]. Ravin Dior RBC 4.54 106/ul Normal 4.20-5.[address] [facility] Comment on above: Performed By: #### C BC ####[facility] [address] [place] [address]DrViky Dior WBC 9.2 103/ul Normal 4.0-11.0 [facility] Comment on above: Performed By: #### C BC ####[facility] [address] [place] [id number] Dior FREE THYROXINE INDEX T7on FTI 2.44 Normal 1.30-4.50 [facility] Comment on above: Performed By: #### C MP, T7, TSH, LIPID #### [facility] [address] [place] [address] [address] Ravin Dior T3U 33.0 % Normal 30.0-39.0 [facility] Comment on above: Performed By: #### C MP, T7, TSH, LIPID #### [facility] [address] [place] [address] [address] Ravin Dior T4 [Mass/Vol] 7.40 ug/dL Normal 4.80-13.90 [facility] Comment on above: Performed By: #### C MP, T7, TSH, LIPID #### [facility] [address] [place] [address] [address] Ravin Dior GLYCOHEMOGLOBIN A1Con 2022 ADA RECOMMENDATION SEE BELOW Normal [facility] Comment on above: Result Comment: ADA RECOMMENDED LIMIT 4.0 - 6.0 ADA THERAPEUTIC TARGET < 7.0 ACTION SUGGESTED > 7.0 Performed By: #### A 1C ####[facility] [address] [place] [address]DrViky Dior Glucose [Mass/Vol] 105 mg/dL Normal [facility] Comment on above: Performed By: #### A 1C ####[facility] [address] [place] [address]DrViky Dior HbA1c (Bld) [Mass fraction] 5.3 % Normal 4.5-6.2 [facility] Comment on above: Performed By: #### A 1C ####[facility] [address] [place] [address]Dr. Ravin Dior IRONon 09-22-2022 Iron [Mass/Vol] 81.0 ug/dL Normal 50.0-170.0 [facility] Comment on above: Performed By: #### I SEAMUS ####[facility] [address] [place] [address]Dr. Ravin Dior LIPID PROFILEon 09-22-2022 CHOL-HDL RATIO NORM SEE BELOW Normal [facility] Comment on above: Result Comment: 3.3 - 4.4 LOW RISK 4.4 - 7.1 AVERAGE RISK 7.1 - 11.0 MODERATE RISK >11.0 HIGH RISK Performed By: #### C MP, T7, TSH, LIPID ####[facility] [address] [place] [address]Dr. Ravin Dior Cholesterol [Mass/Vol] 159 mg/dL Normal <=200 [facility] Comment on above: Performed By: #### C MP, T7, TSH, LIPID ####[facility] [address] [place] [address]Dr. Ravin Dior Cholesterol in HDL [Mass/Vol] 47 mg/dL Normal 40-60 [facility] Comment on above: Performed By: #### C MP, T7, TSH, LIPID ####[facility] [address] [place] [address]Dr. Ravin Dior Cholesterol in LDL [Mass/Vol] 96.4 mg/dL Normal [facility] Comment on above: Performed By: #### C MP, T7, TSH, LIPID ####[facility] [address] [place] [address]Dr. Ravin Dior Cholesterol.total/Cho lesterol in HDL [Mass ratio] 3.4 {ratio} Normal [facility] Comment on above: Performed By: #### C MP, T7, TSH, LIPID ####[facility] [address] [place] [address]Dr. Ravin Dior HDL NORMAL > or = 60 mg/dl - LOW CARDIOVASCULAR RISK <40 mg/dl - HIGH CARDIOVASCULAR RISK Normal [facility] Comment on above: Performed By: #### C MP, T7, TSH, LIPID ####[facility] [address] [place], [place] [address]No. Ravin Dior LDL CALC NORMAL SEE BELOW Normal [facility] Comment on above: Result Comment: <100 mg/dl OPTIMAL 100 - 129 mg/dl NEAR OR ABOVE OPTIMAL 130 - 159 mg/dl BORDERLINE HIGH 160 - 189 mg/dl HIGH >190 mg/dl VERY HIGH Performed By: #### C MP, T7, TSH, LIPID ####[facility] [address] [place], [place] [address]Ax. Ravin Dior Triglyceride [Mass/Vol] 78 mg/dL Normal <=[address] [facility] Comment on above: Performed By: #### C MP, T7, TSH, LIPID ####[facility] [address] [place], [place] [address]Ya. Ravin Dior VLDL CALC 15.6 mg/dL Normal [facility] Comment on above: Performed By: #### C MP, T7, TSH, LIPID ####[facility] [address] [place], [place] [address]Jc. Ravin Dior MG MAMM SCREEN 3D NIKOS CADon 09-22-2022 MG MAMM SCREEN 3D NIKOS CAD Patient: RADHA GUTIÉRREZ Exam Date: 09/22/2022 : 1945 Gender:F Ordering : [facility] Admission #: [id number] Family : Order #: [id number] CLICK HERE TO VIEW EXAM RADIOLOGY REPORT [...] None Family Cancers None LOCATION: [facility] BREAST COMPOSITION: Almost entirely fatty. FINDINGS: [...] Valenzuela M.D. on 09/22/2022 at 17:02 Normal [facility] PROF 14(COMP METB)on 023 Albumin [Mass/Vol] 3.3 g/dL Critically low 3.4-5.0 [facility] Comment on above: Performed By: #### C MP, T7, TSH, LIPID #### [facility] [address] [place] [address] [address] Ravin Dior Albumin/Globulin [Mass ratio] 0.7 {ratio} Normal [facility] Comment on above: Performed By: #### C MP, T7, TSH, LIPID #### [facility] [address] [place] [address] [address] Ravin Dior ALP [Catalytic activity/Vol] 207 U/L Critically high 46-116 [facility] Comment on above: Performed By: #### C MP, T7, TSH, LIPID #### [facility] [address] [address] [address] Ravin Dior ALT [Catalytic activity/Vol] 47 U/L Normal 14-59 [facility] Comment on above: Performed By: #### C MP, T7, TSH, LIPID #### [facility] [address] [address] [address] Ravin Dior Anion gap [Moles/Vol] 11.5 mmol/L Normal [facility] [place] Comment on above: Performed By: #### C MP, T7, TSH, LIPID #### [facility] [address] [address] [address] Ravin Dior AST [Catalytic activity/Vol] 35 U/L Normal 15-37 [facility] Comment on above: Performed By: #### C MP, T7, TSH, LIPID #### [facility] [address] [address] [address] Ravin Dior Bilirubin [Mass/Vol] 0.6 mg/dL Normal 0.2-1.0 [facility] Comment on above: Performed By: #### C MP, T7, TSH, LIPID #### [facility] [address] [place] [address] Dr. Ravin Dior Calcium [Mass/Vol] 9.2 mg/dL Normal 8.5-10.1 [facility] Comment on above: Performed By: #### C MP, T7, TSH, LIPID #### [facility] [address] [place] [address] Dr. Ravin Dior Chloride [Moles/Vol] 109 mmol/L Critically high 98-[address] [facility] Comment on above: Performed By: #### C MP, T7, TSH, LIPID #### [facility] [address] [place] [address] Dr. Ravin Dior CO2 [Moles/Vol] 27.7 mmol/L Normal 21.0-32.0 The [facility] Comment on above: Performed By: #### C MP, T7, TSH, LIPID #### [facility] [address] [place] [address] Dr. Ravin Dior Creatinine [Mass/Vol] 0.94 mg/dL Normal 0.55-1.02 [facility] Comment on above: Performed By: #### C MP, T7, TSH, LIPID #### [facility] [address] [place] [address] Dr. Ravin Dior EGFR-AF EMIRATI >60 Normal >=60 The [facility] Comment on above: Performed By: #### C MP, T7, TSH, LIPID #### [facility] [address] [place] [address] Dr. Ravin Dior EGFR-NON AF EMIRATI 58 mL/min/1.73m2 Critically low >=[address] [facility] Comment on above: Performed By: #### C MP, T7, TSH, LIPID #### [facility] [address] [place] [address] Dr. Ravin Dior Globulin (S) [Mass/Vol] 4.7 g/dL Normal [facility] Comment on above: Performed By: #### C MP, T7, TSH, LIPID #### [facility] [address] [address] [address] Ravin Dior Glucose [Mass/Vol] 95 mg/dL Normal 74-106 The [facility] Comment on above: Performed By: #### C MP, T7, TSH, LIPID #### [facility] [address] [address] [address] Ravin Dior Potassium [Moles/Vol] 4.2 mmol/L Normal 3.5-5.1 [facility] Comment on above: Performed By: #### C MP, T7, TSH, LIPID #### [facility] [address] [place] [address] Dr. Ravin Dior Protein [Mass/Vol] 8.0 g/dL Normal 6.4-8.2 The [facility] Comment on above: Performed By: #### C MP, T7, TSH, LIPID #### [facility] [address] [place] [address] Dr. Ravin Dior Sodium [Moles/Vol] 144 mmol/L Normal 136-145 The [facility] Comment on above: Performed By: #### C MP, T7, TSH, LIPID #### [facility] [address] [address] [address] Ravin Dior Urea nitrogen [Mass/Vol] 21.0 mg/dL Critically high 7.0-18.0 [facility] Comment on above: Performed By: #### C MP, T7, TSH, LIPID #### [facility] [address] [place] [address] Dr. Ravin Dior Urea nitrogen/Creatinine [Mass ratio] 22.3 mg/mg Normal [facility] Comment on above: Performed By: #### C MP, T7, TSH, LIPID #### [facility] [address] [place] [address] Dr. Ravin Dior TSHon 09-22-2022 TSH 2.085 uIU/mL Normal 0.358-3.740 [facility] Comment on above: Performed By: #### C MP, T7, TSH, LIPID #### [facility] [address] [place] [address] ABD/PELVIS WO CONon [...] was used, including Automated Exposure Control. 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 Normal [facility] CBC AUTO DIFFon 05-17-2022 BASO # 0.0 103/ul Normal 0.0-0.[address] [facility] Comment on above: Performed By: #### C BC ####[facility] [address] [address]Dr. Ravin Dior Basophils/100 WBC (Bld) 0.2 % Normal 0.2-2.[address] [facility] Comment on above: Performed By: #### C BC ####[facility] [address] [place], [place] [address]Dr. Ravin Dior EO # 0.1 103/ul Normal 0.0-0.[address] [facility] Comment on above: Performed By: #### C BC ####[facility] [address] [place], [place] [address]Dr. Ravin Dior Eosinophils/100 WBC (Bld) 1.4 % Normal 0.9-7.[address] [facility] Comment on above: Performed By: #### C BC ####[facility] [address] [place], [place] [address]Dr. Ravin Dior Erythrocyte distribution width (RBC) [Ratio] 13.7 % Normal 11.0-15.[address] [facility] Comment on above: Performed By: #### C BC ####[facility] [address] [place], [place] [address]Dr. Ravin Dior Hematocrit (Bld) [Volume fraction] 44.4 % Normal 36.0-48.[address] [facility] Comment on above: Performed By: #### C BC ####[facility] [address] [place], [place] [address]Dr. Ravin Dior Hemoglobin (Bld) [Mass/Vol] 14.7 g/dL Normal 12.0-16.[address] [facility] Comment on above: Performed By: #### C BC ####[facility] [address] [id number]. Ravin Dior IG # 0.05 10e3/ul Critically high 0.00-0.03 [place] Comment on above: Performed By: #### C BC ####[facility] [address] [id number]. Ravin Ovi IG % 0.5 % Normal 0.0-0.[address] [facility] Comment on above: Performed By: #### C BC ####[facility] [address] [address]Dr. Ravin Ovi LYMPH # 1.7 103/ul Normal 1.2-3.[address] [facility] Comment on above: Performed By: #### C BC ####[facility] [address] [address]Dr. Ravin Dior Lymphocytes/100 WBC (Bld) 17.1 % Critically low 20.5-60.[address] [facility] Comment on above: Performed By: #### C BC ####[facility] [address] [address]Dr. Novalilliana Dior MANUAL DIFF REQ NO Normal The [facility] Comment on above: Performed By: #### C BC ####[facility] [address] [address]Dr. Ravin Ovi MCH (RBC) [Entitic mass] 30.7 pg Normal 26.7-34.[address] [facility] Comment on above: Performed By: #### C BC ####[facility] [address] [address]Dr. Ravin Ovi MCHC (RBC) [Mass/Vol] 33.1 g/dL Normal 29.9-35.[address] [facility] Comment on above: Performed By: #### C BC ####[facility] [address] [address]Dr. Ravin Ovi MCV (RBC) [Entitic vol] 92.7 fL Normal 81.0-99.[address] [facility] Comment on above: Performed By: #### C BC ####[facility] [address] [id number]. Ravin Dior MONO # 0.6 103/ul Normal 0.3-0.[address] [facility] Comment on above: Performed By: #### C BC ####[facility] [address] [id number]. Ravin Dior Monocytes/100 WBC (Bld) 5.7 % Normal 1.7-12.[address] [facility] Comment on above: Performed By: #### C BC ####[facility] [address] [id number]. Ravin Dior NEUT # 7.7 103/ul Critically high 1.4-6.5 The [facility] Comment on above: Performed By: #### C BC ####[facility] [address] [id number]. Ravin Dior Neutrophils/100 WBC (Bld) 75.1 % Critically high 43.0-75.[address] [facility] Comment on above: Performed By: #### C BC ####[facility] [address] [phone]. Ravin Dior Platelet mean volume (Bld) [Entitic vol] 10.4 fL Normal 9.5-13.[address] [facility] Comment on above: Performed By: #### C BC ####[facility] [address] [id number]. Ravin Dior PLT 294 103/ul Normal 150-[address] [facility] Comment on above: Performed By: #### C BC ####[facility] [address] [phone]. Ravin Dior RBC 4.79 106/ul Normal 4.20-5.[address] [facility] Comment on above: Performed By: #### C BC ####[facility] [address] [place], [place] [id number]. Ravin Dior WBC 10.2 103/ul Normal 4.0-11.[address] [facility] Comment on above: Performed By: #### C BC ####[facility] [address] [place], [place] [id number]. Ravin Dior ER URINE PROFILEon 2 Bilirubin Ql (U) Negative Normal NEGATIVE The [facility] Comment on above: Performed By: #### JAZ KAUFFMANICRO #### [facility] [address] [place] [address] Dr. Ravin Dior Clarity (U) CLEAR Normal CLEAR [facility] Comment on above: Performed By: #### Tammy SOUTH UMICRO #### [facility] [address] [place] [address] Dr. Ravin Dior Color (U) LT. YELLOW Normal YELLOW [facility] Comment on above: Performed By: #### Tammy SOUTH UMICRO #### [facility] [address] [place] [address] Dr. Ravin PARKER A micrscopic examination will be performed if indicated. Normal [facility] Comment on above: Performed By: #### Tammy SOUTH UMICRO #### [facility] [address] [place] [address] Dr. Ravin Dior Glucose Ql (U) Negative Normal NEGATIVE The [facility] Comment on above: Performed By: #### Tammy SOUTH UMICRO #### [facility] [address] [place] [address] Dr. Ravin Dior Hemoglobin Ql (U) Negative Normal NEGATIVE The [facility] Comment on above: Performed By: #### Tammy SOUTH UMICRO #### [facility] [address] [place] [address] Dr. Ravin Dior Ketones Ql (U) TRACE Abnormal NEGATIVE The [facility] Comment on above: Performed By: #### Tammy SOUTH UMICRO #### [facility] [address] [place] [address] Dr. Ravin Dior LEUKOCYTES SMALL Abnormal NEGATIVE [facility] Comment on above: Performed By: #### Tammy SOUTH UMICRO #### [facility] [address] [place] [address] Dr. Ravin Dior Nitrite Ql (U) Negative Normal NEGATIVE The [facility] Comment on above: Performed By: #### E RUR, UMICRO #### [facility] [address] [address] [address] Ravin Dior pH (U) 6.0 [pH] Normal 5-9 [facility] Comment on above: Performed By: #### Tammy SOUTH UMICRO #### [facility] [address] [address] [address] Ravin Dior SPEC GRAVITY 1.010 Normal 1.005-<=1.025 [facility] Comment on above: Performed By: #### Tammy SOUTH, UMICRO #### [facility] [address] [address] [address] Ravin Dior UA PROTEIN Negative Normal NEGATIVE/ TRACE [facility] Comment on above: Performed By: #### Tammy SOUTH UMICRO #### [facility] [address] [address] [address] Ravin Dior UR MICRO IND INDICATED Normal [facility] Comment on above: Performed By: #### DENY KAUFFMANRO #### [facility] [address] [address] [address] Ravin Dior Urobilinogen Qn (U) 0.2 {Chandler'U}/dL Normal 0.2 - 1. 0 [facility] Comment on above: Performed By: #### Tammy SOUTH, ICRO #### [facility] [address] [place] [address] Dr. Ravin Dior LACTATE/LACTIC ACIDon 2021 Lactate [Moles/Vol] 1.3 mmol/L Normal 0.4-1.9 [facility] Comment on above: Performed By: #### L ACT ####[facility] [address] [address]Dr. Ravin Dior LIPASEon 05-17-2022 Lipase [Catalytic activity/Vol] 63.0 U/L Critically low 73.0-393.0 [facility] Comment on above: Performed By: #### C MP, LIPA #### [facility] [address] [address] [address] Ravin Dior PROF 14(COMP METB)on 022 Albumin [Mass/Vol] 3.4 g/dL Normal 3.4-5.0 [facility] Comment on above: Performed By: #### C MP, LIPA #### [facility] [address] [place] [address] Dr. Ravin Dior Albumin/Globulin [Mass ratio] 0.8 {ratio} Normal [facility] Comment on above: Performed By: #### C MP, LIPA #### [facility] [address] [address] [address] Ravin Dior ALP [Catalytic activity/Vol] 143 U/L Critically high 46-116 [facility] Comment on above: Performed By: #### C ROGELIO, LIPA #### [facility] [address] [place] [address] Dr. Ravin Dior ALT [Catalytic activity/Vol] 29 U/L Normal 14-59 [facility] Comment on above: Performed By: #### C ROGELIO, LIPA #### [facility] [address] [address] [address] Ravin Dior Anion gap [Moles/Vol] 7.6 mmol/L Normal [facility] Comment on above: Performed By: #### C ROGELIO, LIPA #### [facility] [address] [address] [address] Ravin Dior AST [Catalytic activity/Vol] 39 U/L Critically high 15-37 [facility] Comment on above: Performed By: #### C ROGELIO, LIPA #### [facility] [address] [address] [address] Ravin Dior Bilirubin [Mass/Vol] 0.7 mg/dL Normal 0.2-1.0 [facility] Comment on above: Performed By: #### C MP, LIPA #### [facility] [address] [address] [address] Ravin Dior Calcium [Mass/Vol] 9.1 mg/dL Normal 8.5-10.1 [facility] Comment on above: Performed By: #### C MP, LIPA #### [facility] [address] [place], [place] [id number] Dr. Ravin Dior Chloride [Moles/Vol] 102 mmol/L Normal 98-[address] [facility] Comment on above: Performed By: #### C MP, LIPA #### [facility] [address] [place] [address] Dr. Ravin Dior CO2 [Moles/Vol] 31.1 mmol/L Normal 21.0-32.0 [facility] Comment on above: Performed By: #### C MP, LIPA #### [facility] [address] [place] [address] Dr. Ravin Dior Creatinine [Mass/Vol] 0.88 mg/dL Normal 0.55-1.[address] [facility] Comment on above: Performed By: #### C MP, LIPA #### [facility] [address] [place] [address] Dr. Ravin Dior EGFR-AF EMIRATI >60 Normal >=60 [facility] Comment on above: Performed By: #### C MP, LIPA #### [facility] [address] [place] [address] Dr. Ravin Dior EGFR-NON AF EMIRATI >60 Normal >=60 [facility] Comment on above: Performed By: #### C MP, LIPA #### [facility] [address] [place] [address] Dr. Ravin Dior Globulin (S) [Mass/Vol] 4.5 g/dL Normal [facility] Comment on above: Performed By: #### C MP, LIPA #### [facility] [address] [place] [address] Dr. Ravin Dior Glucose [Mass/Vol] 100 mg/dL Normal 74-106 The [facility] Comment on above: Performed By: #### C MP, LIPA #### [facility] [address] [place] [address] Dr. Ravin Dior Potassium [Moles/Vol] 3.7 mmol/L Normal 3.5-5.[address] [facility] Comment on above: Performed By: #### C MP, LIPA #### [facility] [address] [place] [address] Dr. Ravin Dior Protein [Mass/Vol] 7.9 g/dL Normal 6.4-8.2 [facility] Comment on above: Performed By: #### C ROGELIO, LIPA #### [facility] [address] [place] [address] Dr. Ravin Dior Sodium [Moles/Vol] 137 mmol/L Normal 136-145 [facility] Comment on above: Performed By: #### C ROGELIO, LIPA #### [facility] [address] [place] [address] Dr. Ravin Dior Urea nitrogen [Mass/Vol] 12.0 mg/dL Normal 7.0-18.0 [facility] Comment on above: Performed By: #### C ROGELIO, LIPA #### [facility] [address] [place] [address] Dr. Ravin Dior Urea nitrogen/Creatinine [Mass ratio] 13.6 mg/mg Normal [facility] Comment on above: Performed By: #### C ROGELIO, LIPA #### [facility] [address] [place] [address] Dr. Ravin Dior URINE MICROSCOPIC ONLYon BACTERIA NONE SEEN Normal NONE SEEN [facility] Comment on above: Performed By: #### Tammy SOUTH UMICRO #### [facility] [address] [place] [address] Dr. Ravin Dior Bacteria identified Cx Nom (U) NOT INDICATED Normal [facility] Comment on above: Performed By: #### Tammy SOUTH UMICRO #### [facility] [address] [place] [address] Dr. Ravin Dior CAST NONE SEEN Normal NONE SEEN [facility] Comment on above: Performed By: #### Tammy SOUTH UMICRO #### [facility] [address] [place] [address] Dr. Ravin Dior Crystals LM Nom (Urine sed) NONE SEEN Normal NONE SEEN [facility] Comment on above: Performed By: #### Tammy SOUTH UMICRO #### [facility] [address] [place] [address] Dr. Ravin Dior Epithelial cells LM Ql (Urine sed) FEW Abnormal NONE SEEN /RARE [facility] Comment on above: Performed By: #### E RUR, UMICRO #### [facility] [address] [address] [address] Ravin Dior MUCOUS NONE SEEN Normal NONE SEEN [facility] Comment on above: Performed By: #### E RUR, UMICRO #### [facility] [address] [address] [address] Ravin Dior RBC NONE SEEN Abnormal 0-[address] [facility] Comment on above: Performed By: #### E RUR, UMICRO #### [facility] [address] [address] [address] Ravin iDor WBC 0-2 Abnormal NONE SEEN [facility] Comment on above: Performed By: #### E RUR, UMICRO #### [facility] [address] [address] [address] Ravin Dior Ambulatory Clinical Summaryo n 07-24-2020 Ambulatory Clinical Summary {[id number] Normal [facility] G[facility]enterology Office/Clin ic Noteon 07-24-2020 Gastroenterology [...] course, # 28 cap(s), Refills(s) 0, Pharmacy: [facility]/pharmacy #[id number], 165, cm, 07/24/20 12:03:00 EST, Height/Length Dosing, 95.9, kg, 07/24/20 12:03:00 EST, Weight Dosing metronidazole, 250 mg = 1 tab(s), Oral, TID, X 7 day(s), # 21 tab(s), Refills(s) 0, Pharmacy: [facility]/pharmacy #[id number], 165, cm, 07/24/20 12:03:00 EST, Height/Length [...] water, # 160 cap(s), Refills(s) 1, Pharmacy: [facility]/pharmacy #[id number], 165, cm, 07/24/20 12:03:00 EST, Height/Length Dosing, 95.9, kg, 07/24/20 12:03:... Orders: pantoprazole, 40 mg = 2 tab(s), Oral, Daily, X 90 day(s), # 180 tab(s), Refills(s) 3, Pharmacy: [facility]/pharmacy #[id number], 165, cm, 07/24/20 12:03:00 EST, Height/Length Dosing, 95.9, kg, 07/24/20 12:03:00 EST, Weight Dosing Follow-up With When Contact Information Isabelle Ramirez MD In 12 months [address] [place] [address]- Additional Instructions: Problem List/Past Medical [...] 12/16/2018 Exercise - Occasional exercise, 12/16/2018 Other Uacmxbay-0-5 cups blair;y, 12/16/2018 Substance Abuse - Denies Substance Abuse, 12/16/2018 Tobacco Never (less than 100 in lifetime) Tobacco Use:., 07/24/2020 Never (less than 100 in lifetime) Tobacco Use:. Never Smokeless Tobacco Use:., 02/01/2019 [facility] Comment on above: Result Comment: Elec tronically Signed By: Taylor Mccauley MD, Isabelle\.br\Date and Time Signed: 07/24/20 13:13 EST Auth for Release of Medical Recordson 02-09-2020 Auth for Release of Medical Records [id number] #1.00CD:127 [facility] Patient Letter FTon 2019 Patient Letter [facility] January 24, 2020 RADHA GUTIÉRREZ [address] [place] [address] RADHA GUTIÉRREZ 1945 Dear Radha, This is a reminder that you are due for an appointment with Dr. Garland or Dr. Mccauley. Please call [facility] at [phone] to schedule an appointment at your earliest convenience. Thank you, [facility] Vital Signs Date Time Vital Sign Value Performing Clinician Chuckie osborne 10-19-2024 13:15-0400 Body height 165.1 cm [facility] 10-19-2024 13:15-0400 Body mass index (BMI) [Ratio] 32.3 kg/m2 [facility] 10-19-2024 13:15-0400 Body temperature 97.5 [degF] [facility] 10-19-2024 13:15-0400 Body weight 88.11 kg [facility] 10-19-2024 13:15-0400 Diastolic blood pressure 64 mm[Hg] [facility] 10-19-2024 13:15-0400 Heart rate 75 /min [facility] 10-19-2024 13:15-0400 Respiratory rate 18 /min [facility] 10-19-2024 13:15-0400 SaO2% (BldA) [Mass fraction] 97 % [facility] 10-19-2024 13:15-0400 Systolic blood pressure 99 mm[Hg] [facility] 07-27-2024 10:30-0500 Diastolic blood pressure 68 mm[Hg] [facility] 07-27-2024 10:30-0500 Systolic blood pressure 96 mm[Hg] [facility] 07-27-2024 10:13-0500 Body height 165.1 cm [facility] 07-27-2024 10:13-0500 Body mass index (BMI) [Ratio] 31.3 kg/m2 [facility] 07-27-2024 10:13-0500 Body weight 85.33 kg [facility] 07-27-2024 10:13-0500 Heart rate 85 /min [facility] 07-27-2024 10:13-0500 Respiratory rate 16 /min [facility] 07-27-2024 10:13-0500 SaO2% (BldA) [Mass fraction] 98 % [facility] Encounters Encounter Date Encounter Type Care Provider Facility Start: 01-15-2025 ambulatory [facility] Start: 01-15-2025 End: 01-15-2025 ambulatory Florina Devlin MD Facility: [facility] Start: 12-27-2024 ambulatory SHAYY ORTIZ [facility] Start: 12-11-2024 End: 12-11-2024 ambulatory Florina Devlin MD Facility:[facility] Start: 12-06-2024 ambulatory [facility] Start: 12-06-2024 ambulatory [facility] Start: 11-20-2024 End: 11-20-2024 ambulatory Florina Devlin MD Facility:[facility] Start: 10-20-2024 ambulatory [facility] Start: 10-19-2024 End: 10-19-2024 ambulatory [facility] [place] Work Phone: Start: 10-19-2024 End: 10-19-2024 Patient encounter procedure [facility] Kevin Work Phone: Start: 10-09-2024 Non-patient / Non-visit [facility] Physician [facility] Work Phone: Start: 09-11-2024 ambulatory [facility] Start: 08-18-2024 End: 08-18-2024 ambulatory DANII [facility] Start: 08-18-2024 Non-patient / Non-visit [facility] Physician [facility] Work Phone: Start: 08-15-2024 ambulatory [facility] Start: 08-14-2024 End: 08-14-2024 ambulatory [facility] Start: 08-09-2024 ambulatory [facility] Start: 07-27-2024 End: 07-27-2024 ambulatory [facility] Work Phone: Start: 07-27-2024 End: 07-27-2024 Patient encounter procedure [facility] Physician [facility] Kevin Work Phone: Start: 07-11-2024 ambulatory [facility] Start: 06-15-2024 ambulatory [facility] Start: 06-15-2024 Encounter for preprocedural cardiovascular examination [facility] Start: 05-22-2024 ambulatory [facility] Start: 05-18-2024 ambulatory [facility] Start: 05-16-2024 ambulatory [facility] Start: 05-15-2024 ambulatory [facility] Start: 05-04-2024 ambulatory [facility] Start: 04-20-2024 ambulatory [facility] Start: 03-27-2024 ambulatory [facility] Start: 03-21-2024 End: 03-21-2024 ambulatory [facility] Start: 03-17-2024 ambulatory [facility] Start: 02-08-2024 End: 02-08-2024 ambulatory [facility] Start: 01-18-2024 ambulatory [facility] Start: 01-17-2024 End: 01-17-2024 ambulatory CARIDAD GARNER Not Available Start: 01-11-2024 End: 01-11-2024 ambulatory SANDIE PAGE Not Available Start: 12-28-2023 End: 12-28-2023 Telephone encounter Vera Spears [facility] Start: 12-20-2023 End: 12-20-2023 ambulatory SANDIE PAGE Not Available Start: 12-06-2023 End: 12-06-2023 Refill Sonia Tenorio RN [facility] Comment on above: Med Refill Start: 11-11-2023 End: 11-11-2023 ambulatory OSWALDO GARCÍA Not Available Start: 09-10-2023 End: 09-10-2023 Refill Mac Erwin TELEVISION [employer]ER[employer] Work Phone: [facility] Comment on above: Med Refill Start: 06-11-2023 Refill Mike means MD Work Phone: [facility] Comment on above: Med Refill Start: 06-05-2023 Refill Mac horne TELEVISION [employer] LEAD Work Phone: [facility] Comment on [...] Start: 01-30-2024 Influenza vaccination Influenza Vacc ine [facility] Start: 08-25-2023 Adult BMI Screening Adult BMI Screen ing [facility] Start: 08-25-2023 Tobacco Screening Tobacco Screening [facility] Start: 01-29-2023 COVID-19 Vaccine ( season) COVID-19 Vaccine () [facility] Start: 01-29-2023 Influenza vaccination Influenza Vacc ine [facility] Start: 11-03-2022 ambulatory Ambulatory Facility:H 1 Start: 2010 Fall Risk Screening Fall Risk Screen ing [facility] Start: 1995 Administration of varicella zoster vaccine Zoster (Shingles) Vaccine (1 of 2) [facility] Start: 1964 DTaP,Tdap and Td Vac cines (1 - Tdap) DTaP,Tdap and Td Vaccines (1 - Tdap) [facility] Start: 1963 Adult BMI Follow Up Plan Adult BMI Follow Up Plan [facility] Start: 1957 Depression Screening Depression Scre ening [facility] Start: 1945 Medicare Annual Well ness Visit Medicare Annual Wellness Visit [facility] End: 06-08-2024 Basic metabolic 1999 panel - Serum or Plasma Basic Metabolic Panel Lab Routine Essential hypertension 1 Occurrences starting 06/08/2023 until 06/08/2024 [facility] Work Phone: Comment on above: 1 Occurrences starti ng 06/08/2023 until 06/08/2024 Renal function 2000 panel - Serum or Plasma [facility] Renal function 1999 panel - Serum or Plasma [facility] US Kidney - bilateral Firela [facility] Immunizations Immunization Date Immunization Notes Care Provider Fa cility 05-08-2021 influenza virus vaccine, unspecified formulation Mac Erwin TELEVISION [employer] LEAD Work Phone: [facility] Payers Date Payer Category Payer Private Health Insurance 2013 Medicare HU[employer] MEDICARE [place] [id number] 2013-Present [phone] [address] [address] [place] [address] [id number] 1959 Medicare [id number] 1945 Unknown [id number] .593 1945 Unknown [id number] 2.16.840.1.582191.3.579.2 .593 1945 Unknown [id number] 2.16.840.1.804099.3.579.2 .593 1945 Unknown [id number] 2.16.840.1.074126.3.579.2 .593 1945 Unknown [id number] 2.16.840.1.685362.3.579.2 .593 1945 Unknown [id number] 2.16.840.1.564100.3.579.2 .593 1945 Unknown [id number] 2.16.840.1.650958.3.579.2 .593 1945 Unknown [id number] 2.16.840.1.930120.3.579.2 .1259 1945 Unknown [id number] 2.16.840.1.333833.3.579.2 .1259 1945 Unknown [id number] 2.16.840.1.564303.3.579.2 .1259 1945 Unknown [id number] 2.16.840.1.416669.3.579.2 .1259 1945 Unknown [id number] 2.16.840.1.655150.3.579.2 .196 1945 Unknown [id number] 2.16.840.1.315404.3.579.2 .196 1945 Unknown [id number] 2.16.840.1.357272.3.579.2 .196 Medicare Medicare [id number] Social History Date Type Detail Facility Start: 05-26-2022 End: 10-19-2024 Tobacco smoking status NHIS Never smoked tobacco [facility] Start: 05-26-2022 Tobacco use and exposure Smoke less tobacco non-user [facility] Start: 08-24-2022 Alcohol intake 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 (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) [facility] Start: 07-04-2020 End: 08-24-2022 History of Social function [facility] Start: 07-04-2020 End: 08-24-2022 Tobacco use panel [facility] Housing Instability Unknown [facility] Start: 1945 Sex Assigned At Not on file P [facility] Start: 07-27-2024 End: 10-19-2024 Sex Female (finding) [facility] Start: 1945 Sex Assigned At Female F [facility] Medical Equipment Procedure Code Equipment Code Equipment Origin al Text Equipment Identifier Dates Mesh [id number] 3d Rect Plstr Clgn Symbotex 2 Sd Comp Mfl Babsr Rpl [id number] - Sna - [id number] Start: 06-30-2022 Dev Clsr 30fr Watchman 30mm - [id number] Start: 10-28-2018 Clinical Notes 12-24-2021 to [...] Dr. Hines 2018, implantation of Biventricular ICD ([employer]) 07/05/2023, status post AV node ablation 11/01/[address] Madden. 08/18/2024 office visit: The patient was seen and evaluated in the office today. Overall, she reports feeling well. Abnormal kidney function was incidentally noted on presurgical labs for a planned back surgery, including a potassium of 5.8 and creatinine of 1.62. She has since established care with a appeals assistant, whom she saw for the first time [...] oral, Nightly sp (more content not included)... [facility] 03-21-2024 Note [place] Electrophysiology Consult Note Reason for visit: Afib [...] bleed. [facility]. She [facility] [...] on file Intimate Partner Violence: Unknown (07/23/2023) [place] Safety & Environment Fear of Current or [...] mg tablet Ta (more content not included)... [facility] 02-14-2024 Note This report has been cancelled. [facility] 02-11-2024 Note RCRI= 2 points Class III Risk 10.1 % 30-day risk of , SC, or cardiac arrest From a cardiac perspective pt may proceed with planned surgery, she is a moderate risk for a moderate risk orthopedic surgery. She may hold Aspirin 5-7 days prior and resume post op. Please monitor hemodynamics carefully and prevent any major fluid shifts. Toya Gallardo [facility] Available 7a-5pm via [employer] Chat Pager [phone] [facility] 12-28-2023 Miscellaneous Notes Rec'd letter from patient stating that she no longer sees [facility], uses a doctor in [place]. documented in this encounter [employer] 12-28-2023 Telephone encounter Note Rec'd letter from patient stating that she no longer sees [facility], uses a doctor in [place]. [facility] 12-06-2023 Miscellaneous Notes Last OV 06/15/22.slm T/C to pt to sched [facility] f/u appt. No answer and mailbox is full. documented in this encounter [facility] 12-06-2023 Telephone encounter Note Last OV 06/15/22.slm [facility] 12-06-2023 Telephone encounter Note T/C to pt to sched [facility] f/u appt. No answer and mailbox is full. [facility] 09-10-2023 Miscellaneous Notes Please sign and route if you agree. Thank you HODAN 06/22/22 Pt needs annual appt schedule please, thank you. Letter mailed. LMOM for the patient to call and schedule their next appointment with [facility]. documented in this encounter [facility] 09-10-2023 Telephone encounter Note Please sign and route if you agree. Thank you HODAN 06/22/22 Pt needs annual appt schedule please, thank you. Letter mailed. [facility] 09-10-2023 Telephone encounter Note LMOM for the patient to call and schedule their next appointment with [facility]. [facility] 06-11-2023 Miscellaneous Notes Last OV 06/15/22, sent to [facility] front maker lockstitch for yearly visit to be scheduled. CMP 06/22/22. BMP ordered from refill encounter 06/08/23. Letter has been mailed, but will attempt to send letter via [facility] as last login was 05/07/23. documented in this encounter [facility] 06-11-2023 Telephone encounter Note Last OV 06/15/22, sent to [facility] front maker lockstitch for yearly visit to be scheduled. CMP 06/22/22. BMP ordered from refill encounter 06/08/23. Letter has been mailed, but will attempt to send letter via as last login was 05/07/23. [facility] 07-23-2022 Note PAIN MANAGEMENT CONS [...] time or sooner if needed. [facility] 03-26-2022 Note CONSULTATION CONSULTATION DATE: 03/26/2022 [...] with the plan of care. [facility] 12-24-2021 Note CONSULTATION PROCEDURE DATE: 12/24/2021 [...] procedure well with no complications. [facility] 12-24-2021 Note CONSULTATION CONSULTATION DATE: 12/24/2021 [...] months' time, unless otherwise indicated. [facility] Evaluation note Diagnosis Essential hypertension- Primary Unspecified essential hypertension [facility] Diagnosis Chronic systolic CHF (congestive heart failure) ([facility]) documented [facility] encounter [facility]* Diagnosis Onset Date [...] Iron deficiency acute July 27, 2024 10:10am [facility] Work Phone: Evaluation note* Diagnosis [...] Iron deficiency acute October 19, 2024 12:46pm [facility] Work Phone: InstructionsNot on filedocumented [...] and content) DATE CREATED AUTHOR 07/25/2020 [facility] DATE CREATED AUTHOR AUTHOR'S ORGANIZ ATION 10/12/2022 [facility] DATE CREATED AUTHOR AUTHOR'S ORGANIZ ATION 01/17/2024 [facility] EPIC DATE CREATED AUTHOR AUTHOR'S ORGANIZ ATION 01/16/2025 [facility] DATE CREATED AUTHOR AUTHOR'S ORGANIZ ATION 01/20/2025 [facility] Reason for Visit (unrecogniz ed section [...] October 19, 2024 End: October 19, 2024 Agricultural 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 Relationship Specialty Start Date End Date Heaven Staley APRN-CNP [address] [place] [address] PCP - General Family Medicine 10/30/21 Agricultural Inspector Relationship Specialty Start Date End Date Heaven Staley APRN-CNP [address] [facility] [place] [phone] PCP - General Family Medicine 10/30/21 Agricultural Inspector Relationship Specialty Start Date End Date Luís Heaven JesseniaKALEN [address] [facility] [place] [phone] PCP - General Family Medicine 10/30/21 Agricultural Inspector Relationship Specialty Start Date End Date Heaven Staley JesseniaTAO-VICKIE [address] [facility] [place] [address] PCP - General Family Medicine 10/30/21 Team [...] BE BASED ON THE PRIMARY CLINICAL RECORDS. [facility] [employer] [facility]. provides no warranty or guarantee of the accuracy or completeness of information in this document.
--- NOTE | 2025-01-25 09:19 | PM.CN ---
Consult Note: HPI Data of Consult Patient: known to practice within the last 3 years Consult date: 01/25/25 Requesting Physician: Carmen Ramey NP Primary Care Provider: FIDELINA STALEY Consult Narrative Reason for consult: neck and low back/BLE pain Narrative: Radha Cornell a pleasant 79 year old female presents for evaluation and management of chronic low back pain and neck pain. Pain today 6-7/10 throbbing burning increased with all activity and decreased with lying down and heat. recently underwent cervical CT with results below. Patient has found moderate benefit to current medication regimen. January 2024 underwent L3-S1 fusion and decompression at L3,4,[address] Ramírez but continues to note moderate to severe low back and BLE pain. Patient continues to have moderate to severe low back and right low pain impacting sleep, social life, ADLS, and ability to stand and walk. RENATO 58%. denies falls or injury since last visit. continues to utilize cane. cc:: CC: Carmen Ramey NP Review of Systems ROS Musculoskeletal Reports: back pain, neck pain, extremity pain and joint pain [facility] Medical History Rectocele ?N81.6 - Rectocele (ICD-10) Bruising ?T14.8XXA - Other injury of unspecified body region, initial encounter (ICD-10) Anemia ?D64.9 - Anemia, unspecified (ICD-10) Upper back pain ?M54.9 - Dorsalgia, unspecified (ICD-10) Neck pain ?M54.2 - Cervicalgia (ICD-10) Low back pain ?M54.50 - Low back pain, unspecified (ICD-10) Fibromyalgia ?M79.7 - Fibromyalgia (ICD-10) Heartburn ?R12 - Heartburn (ICD-10) Acid reflux ?K21.9 - Gastro-esophageal reflux disease without esophagitis (ICD-10) Sleep apnea ?G47.30 - Sleep apnea, unspecified (ICD-10) Atrial fibrillation ?I48.91 - Unspecified atrial fibrillation (ICD-10) Surgical History S/P lumbar spine operation ?Z98.890 - Other specified postprocedural states (ICD-10) S/P shoulder surgery ?Z98.890 - Other specified postprocedural states (ICD-10) History of bariatric surgery ?Z98.84 - Bariatric surgery status (ICD-10) H/O heart surgery ?Z98.890 - Other specified postprocedural states (ICD-10) H/O: hysterectomy ?Z90.710 - Acquired absence of both cervix and uterus (ICD-10) Hx of cholecystectomy ?Z90.49 - Acquired absence of other specified parts of digestive tract (ICD-10) Meds Home Medications and Allergies Home Medications ?Medication ?Instructions ?Recorded ?Confirmed ?Type cholecalciferol (vitamin D3) 125 5,000 unit PO DAILY 11/03/22 01/15/25 History mcg (5,000 unit) capsule furosemide 40 mg tablet (Lasix) 40 mg PO BID 11/03/22 01/15/25 History krill 2 cap PO DAILY 11/03/22 01/15/25 History waq-de3-shf-uod-id6-vbv-astax 1,500 mg-165 mg-67.5 mg capsule losartan 25 mg tablet 25 mg PO DAILY 11/03/22 01/15/25 History metoprolol succinate 25 mg 12.5 mg PO BID 11/03/22 01/15/25 History tablet,extended release 24 hr multivitamin 1 tab PO DAILY 11/03/22 01/15/25 History pantoprazole 40 mg tablet,delayed 40 mg PO BID 11/03/22 01/15/25 History release (Protonix) pramipexole 1 mg tablet (Mirapex) 1 mg PO DAILY 11/03/22 01/15/25 History trazodone 50 mg tablet 50 mg PO DAILY 11/03/22 01/15/25 History vitamin B complex 1 cap PO DAILY 11/03/22 01/15/25 History naloxone 4 mg/actuation nasal 4 mg intranasal Q3M PRN opioid 02/11/23 01/15/25 Rx spray (Narcan) overdose #2 ea oxycodone-acetaminophen 5 mg-325 1 tab PO .BID-TID PRN pain #75 tabs 10/11/24 01/15/25 Rx mg tablet (Percocet) baclofen 10 mg tablet 10 mg PO BID PRN muscle spasm #60 11/09/24 01/15/25 Rx tabs diphenhydramine HCl 25 mg capsule 25 mg PO Q8H PRN allergy symptoms 11/20/24 01/15/25 History (Benadryl) oxycodone-acetaminophen 5 mg-325 1 tab PO TID PRN pain #75 tabs 01/25/25 Rx mg tablet (Percocet) Allergies Allergy/AdvReac Type Severity Reaction Status Date / Time codeine Allergy Mild Hives Verified 01/15/25 09:22 pregabalin (From Lyrica) Allergy Shakiness Verified 01/15/25 09:22 Exam Constitutional Documenting provider has reviewed patient's vital signs: yes Common normals: no apparent distress, oriented x3, healthy appearing, alert and well nourished General appearance: cooperative HENMT Common normals: normocephalic, hearing grossly normal bilaterally and moist oral mucous membranes Head and scalp: normocephalic Eye Common normals: PERRL Pupil: PERRL Neck & C-Spine Common normals: full ROM General: normal visual inspection Cervical spine: cervical ROM abnormal; no pain with cervical ROM and no cervical spine tenderness Other: strength 5/5 in BUE sensation intact BUE Chest Common normals: inspection of chest normal Respiratory Common normals: normal respiratory effort, no retractions and no use of accessory muscles Back & Pelvis Lumbar spine/lower back: ROM limited, pain with ROM, straight leg raise positive right and straight leg raise positive left; no lumbar spinal tenderness Other: strength 5/5 in BLE decreased sensation bilateral L5/S1 Neuro Common normals: oriented x3 Sensorium/orientation: alert Psych Common normals: mental status grossly normal, thought process normal, cooperative, affect normal, speech normal and activity/motor behavior normal Speech: normal speech Thought process: normal thought process Results Additional Findings Additional findings: If on a controlled substance or opioids, I have checked an OARRS report on this patient and there are no aberrancies noted in the prescribing history.??If on a controlled substance or opioid a drug screen was completed and reviewed within the last year, and if there has not been a drug screen completed we ordered one today to monitor higher risk, state monitored pain medication use. As part of providing excellent, safe, comprehensive care, the following was completed at our patient's visit: 1. A medication reconciliation and review to ensure accurate knowledge of current/active medications, including asking our patients to inform us about any ghkt-drc-kxrfeyf medications or herbal remedies/nutritional supplements/alternative remedies. 2. A review to specifically ensure our patients have had annual screening for screening for depression, screening for tobacco use, and screening for unhealthy alcohol use. For concerning screenings had a discussion with the patient, provided patient education, and recommended follow-up with primary care provider when appropriate. If patient noted with a risk of falling, they received education on strength, gait, and balance training to prevent future risk of falling. Portions of this note may have been carried over from the previous visit and updated as appropriate. Please note this office utilizes paper charting in addition to the electronic medical record. A list of current medications, vitals, and PMH is available there as the clinical staff outside of myself do not have access to [facility] charting during the clinic day operations. As part of providing quality comprehensive care the current medications, vitals, and PMH were reviewed in the paper chart. Assessment and Plan Assessment and Plan (1) Failed back syndrome: Assessment and Plan: The patient has had over 3 months of moderate to severe low back and BLE pain with functional impairment and inadequate response to conservative care including NSAIDS (unless there are contraindication such as concurrent blood thinners), multiple oral or topical pain medications, and home exercise program/physical therapy.? Patient has completed >6 weeks of guided home exercise program and/or formal physical therapy program without relief of their symptoms.? The Oswestry Disability Index was completed, and the patient scored a 58%.? The patient noted the following:?? moderate to severe pain impacting ADLs, sitting, standing, sleeping, social life, travel (2) Cervical radiculopathy: Assessment and Plan: 01/15/25 right C5/6 C6/7 TFESI >50% improvement ongoing (3) Chronic prescription opiate use: Assessment and Plan: I feel these medications are improving the patient's quality of life and allow them to tolerate activities of daily living as well as participate in recreational activity.? The patient does not report intolerable side effects. The patient is NOT opioid naive and non-pharmacologic and non-opioid treatment has failed to significantly relieve the patient's pain and improve functionality. The patient has a diagnosis that is related to a somatic or visceral pain etiology. ? ?? I reviewed with the patient the potential risks and side effects with the use of? opioid medications including but not limited to respiratory depression,? sedation, and even . Within the last 12 months I have verified the patient has access to naloxone should? these effects occur. The patient was advised to let? their family know they had Naloxone in case they would need to administer? the medication. I advised the patient to avoid the use of any other? sedation substances including alcohol, THC, and benzodiazepines while? taking opioid medications due to the risk of compounding side effects and? detrimental outcomes. 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 ?? A drug screen was completed within the last year, and no aberrancies were noted regarding their use of controlled substances. The patient understands they are subject to the terms and conditions of the pain contract that they have signed. ? ?? I have checked an OARRS report on this patient today and there are no aberrancies noted in the prescribing history.? (4) Right shoulder pain: Assessment and Plan: recent injury at work, notes improvement in pain. declining PT. defer additional imaging Plan 79 year old female with chronic moderate to severe low back and BLE pain that has not responded to >6 weeks of PT/HEP, heat, ice, tylenol, cannot take NSAIDs. utilizing percocet and baclofen with benefit without side effects. pt would like to proceed with 2 lead [employer] spinal cord stimulator trial for persistent pain post lumbar decompression and fusion 02/[address] Ramírez. risks vs benefits reviewed. once pacemaker clearance, pre anesthesia testing, and psychiatric evaluation completed we will proceed with the trial under fluoroscopy and MAC sedation. pt to f/u one week after for lead removal.
== END 2025-01-25 08:51 | disposition home or self-care (01) ==
LOC: PM 08:50
PROVIDERS: PCP Nurse Practitioner Family; Visit Provider Nurse Practitioner
DX: M96.1 Postlaminectomy syndrome, not elsewhere classified (principal); M54.12 Radiculopathy, cervical region; Z79.891 Long term (current) use of opiate analgesic; M25.511 Pain in right shoulder
CPT/HCPCS: G0463

== ENCOUNTER 2025-03-30 07:33 | Outpatient (OUT) | payer MEDICARE, SELFPAY ==
--- OUTSIDE RECORDS SUMMARY | 2024-02-18 06:30 | XMS_ITS ---
Author Organization [facility] Address [address] [place] [address] Care Team Providers Care Switch Adjuster Name Role Phone Heaven Calderon Primary Care Provider James Guillory Unavailable [phone] KURTIS ESPOSITO CNP Unavailable Unavailable REASON FOR [...] alcohol in the p ast year? No Mnzrhd0DlumoufjpkzzpdBdktbxgxDhulkhr Control (Standard) Question Answer Notes Tobacco use: Nonsmoker Problems Problem Type SNOMED Code ICD Code Onset Dates Problem Status W/U Status Risk Notes Problem Lumbar radiculopathy (840984441) Lumbar r adiculopathy (M54.16) ActiveconfirmedProblemNeurogenic claudication (083189698)Lumbar stenosis with neurogenic claudication (M48.062)Activeconfirmed Encounters Encounter Location Date Provider Diagnosis [facility] [facility] [address] [place] [address] [place] [address] 02/18/2024 Selvon Anh Lumbosacral spinal stenosis M48.07 [...] Up: post op, Reason: Provider Name:James Rascon [facility], 06/21/2025 10:20:00 AM, [address] [place] [address], [phone], Progress Notes * SAUL GUTIÉRREZ GDOB:[birth year] (79 yo F)Acc No.[id number]:02/18/2024 Patient:?BROCK SAUL Reddy :?James Gibbs MD, PhDDOB:1945 ???Age:78 Y???Sex:FemaleDate:02/18/2024hone:[phone]:Yosi YOUSIF RDKINDRED HOSPITALRU-[id number]:Heaven Calderon Subjective: * Chief Complaints: * 1 [...] instability, ischemic optic neuropathy, speech/swallowing difficulties, DVT/PE, [place], stroke, , and etc. If the patient [...] signature of James Kamara MD, PHD on 03/30/2025 at 07:42 AM EDT Sign off status: Pending * Provider: Jessenia Gibbs MD, PhD Date: 0 02/18/2024 Generated for Printing/Faxing/eTransmitting on:?03/30/2025 07:42 AM EDT History and Physical Notes * HPI (History [...] instability, ischemic optic neuropathy, speech/swallowing difficulties, DVT/PE, [place], stroke, , and etc. If the patie nt is having a fusion, risks also include non-union, adjacent segment disease, hardware failure, and etc. The patient elects to undergo the above-noted procedure. Absolutely no guarantees are made. No guarantees are made as far as the outcome. History and physical was dictated today; see that for details.
--- OUTSIDE RECORDS SUMMARY | 2024-02-18 06:50 | XMS_ITS ---
Author Organization [facility] Address [address] [place] [address] Care Team Providers Care Project Engineering Manager Name Role Phone Heaven Calderon Primary Care Provider James Guillory Unavailable [phone] KURTIS ESPOSITO CNP Unavailable Unavailable REASON FOR VISIT LUMBAR PAIN Encounters Encounter Location Date Provider Diagnosis [facility] Office [address] [place] [address] [place] [address] 02/18/2024 James Kamara Plan Of Treatment Next Appt Details Provider Name:James Rascon Chava , 06/21/2025 10:20:00 AM, [address] [place] [address], [phone], Progress Notes * SAUL GUTIÉRREZ GDOB:[birth year] (79 yo F)Acc No.[id number]:02/18/2024 Patient:?SAUL GUTIÉRREZ Barry :?James Gibbs MD, PhDDOB:1945 ???Age:78 Y???Sex:FemaleDate:4Phone:[phone]:KELSY W[address]TER[address] RD JS-[id number]:Heaven Calderon Subjective: * Chief Complaints: * 1 . LUMBAR PAIN. * Medical History: Objective: * Vitals: Assessment: Plan: * Treatment: Forms: * Images: * Electronic signature of James Kamara MD, PHD on 03/30/2025 at 07:43 AM EDT Sign off status: Pending * Provider: Jessenia Gibbs MD, PhD Date: 0 02/18/2024 Generated for Printing/Faxing/eTransmitting on:?03/30/2025 07:43 AM EDT
--- OUTSIDE RECORDS SUMMARY | 2024-12-15 06:50 | XMS_ITS ---
Author Organization [facility] Address [address] [place] [address] Care Team Providers Care Note Teller Name Role Phone Heaven Calderon Primary Care Provider James Guillory Unavailable [phone] KURTIS ESPOSITO CNP Unavailable Unavailable REASON FOR VISIT LUMBAR RECHECK Encounters Encounter Location Date Provider Diagnosis [facility] [address] [place] [address] [place] [address] 12/15/2024 James Kamara Plan Of Treatment Next Appt Details Provider Name:James Rascon Chava , 06/21/2025 10:20:00 AM, [address] [place] [address], [phone], Progress Notes * SAUL GUTIÉRREZ GDOB:[birth year] (79 yo F)Acc No.[id number]:12/15/2024 Patient:?SAUL GUTIÉRREZ Barry :?James Gibbs MD, PhDDOB:1945 ???Age:79 Y???Sex:FemaleDate:12/15/2024Phone:[phone]:[address] [place]-[id number]:Heaven Calderon Subjective: * Chief Complaints: * 1 . LUMBAR RECHECK. * Medical History: Objective: * Vitals: Assessment: Plan: * Treatment: Forms: * Images: * Electronic signature of James Kamara MD, PHD on 03/30/2025 at 07:42 AM EDT Sign off status: Pending * Provider: S elvon F Throckmorton, MD, PhD Date: 0 12/15/2024 Generated for Printing/Faxing/eTransmitting on:?03/30/2025 07:42 AM EDT
--- OUTSIDE RECORDS SUMMARY | 2025-03-19 05:30 | XMS_ITS ---
Author Organization [facility] in [place] Address [address] [place] [address] Care Team Providers Care Research Support Specialist Name Role Phone Heaven Calderon Primary Care Provider Allergies Allergen (clinical drug ingredient) Drug/Non Drug Allergy documented on EMR Reaction Allergy Type Onset Date Status pregabalin Lyrica Unknown Drug Allergy ActivecodeineCodeineUnknownDrug AllergyActivelisinoprilLisinoprilUnknownDrug AllergyActive REASON FOR VISIT yearly, Neuropathy in feet- left great toe is swollen and hurts to walk- think possibly gout, Patient said she has been off her Jardiance 25mg for 5-6 weeks- said she has gained 15 pounds back Medications Medication SIG (Take, Route, Frequency, Duration) Notes Start Date End Date Status Sucralfate 1 GM TAKE 1 TABLET BY MOUTH FOUR TIME S A DAY; Duration: 90 days ActivetraZODone HCl 50 MG1 tablet at bedtime as needed Orally Once a day; Duration: 30 daysActiveVitamin D3 25 MCG/SPRAYas directed OrallyActiveVoltaren 1 %as directed ExternallyActiveTurmeric -as directedActivePrasterone (DHEA) 50 MG as directed OrallyActiveSpironolactone 25 MG1 tablet Orally; Duration: 30 day(s) ActivePantoprazole Sodium 40 MGTAKE 1 TABLET BY MOUTH EVERY DAY; Duration: 90 ActivePramipexole Dihydrochloride 1 MGTAKE 1 & 1/2 TABLETS BY MOUTH EVERY DAY; Duration: 90ActiveoxyCODONE-Acetaminophen 5-325 MG1 tablet as needed Orally every 6 hrsActiveJardiance 10 MG1 tablet Oral Once a day; Duration: 30 days ActiveOndansetron HCl 4 MG1 tablet Orally Once a day; Duration: 10 days 3ActiveMagnesium 400 MGas directed OrallyActiveMetoprolol Succinate 50 MG1 capsule Orally Once a day; Duration: 30 day(s)ActiveLosartan Potassium 25 MG 1 tablet Orally Once a day; Duration: 30 day(s)ActiveFurosemide 40 MG1 tablet Orally Once a day; Duration: 30 day(s)ActiveDiclofenac Sodium 75 MGTAKE 1 TABLET BY MOUTH TWICE A DAY; Duration: 90ActiveFerrous Sulfate 325 (65 Fe) MG1 tablet Orally Once a day; Duration: 30 day(s)ActiveCalcium Carbonate -as directedActive CoQ-10 30 MGas directed OrallyActivepredniSONE 20 MG2 tablet Orally Once a day; Duration: 5 days5ActiveBaclofen 10 MG1 tablet Orally at bedtimeActive Biotin 36828 MCG1 tablet Orally Once a dayActiveB-Complex -as directed Orally Active Social History Tobacco Use: Social History Observation Description Date Details (start date - stop date) Never Smoker NA - NA Tobacco Use/Smoking Question Answer Notes Patient is a nonsmoker Problems Problem Type SNOMED Code ICD Code Onset Dates Problem Status W/U Status Risk Notes Problem Chronic diastolic he art failure (692354040) Chronic diastolic (congestive) heart failure (I50.32) Activeconfirmed Vital Signs Weight 198.6 lbs 03/19/2025 Height 65 in 03/19/2025 Blood pressure systolic 108 mm Hg 03/19/20 25 Blood pressure diastolic 76 mm Hg 025 BMI 33.05 kg/m2 03/19/2025 Encounters Encounter Location Date Provider Diagnosis [facility] [address] [place] [address] 03/19/2025 Heaven Calderon Persistent atrial fibrillation I48.19 ; Stage 3 chronic kidney disease, unspecified whether stage 3a or 3b CKD N18.30 ; Chronic diastolic (congestive) heart failure I50.32 and Arthritis M19.90 Assessments Encounter Date Diagnosis (ICD Code) Assessment Notes Treatment Notes Treatment Clinical Notes Section Notes 03/19/2025 Persistent atrial fibrillation ( ICD-10 - I48.19) fu ouqnhospdw75/20/2025Stage 3 chronic kidney disease, unspecified whether stage 3a or 3b CKD (ICD-10 - N18.30)seeing kidney 5Chronic diastolic (congestive) heart failure (ICD-10 - I50.32)fu hjrhlworjd08/20/2025Arthritis (ICD-10 - M19.90) Plan Of Treatment Medication Medication Name Sig Start Date Stop Date Notes Jardiance 10 MG 1 tablet Oral Once a day; Durati on: 30 days predniSONE 20 MG2 tablet Orally Once a day; Duration: 5 days03/19/2025Treatment Notes Assessment Notes Persistent atrial fibrillation fu cardio logy Stage 3 chronic kidney disea se, unspecified whether stage 3a or 3b CKD seeing kidney dr Chronic diastolic (congestive) heart carisa lure fu cardiology Pending Test Test Name Order Date HEMOGLOBIN A1C (GLYCO) 03/19/2025 IRON, TOTAL 03/19/2025 LIPID PANEL (CHOL/TRIG/HDL/LDL) 03/19/20 25 VITAMIN D, 25 LEVEL (TOTAL) 03/19/2025 Insulin Level 03/19/2025 THYROID PANEL (T4/TSH/FREE T3) 5 CMP (COMP MET HANSON) w/eGFR CKD-EPI 2024 CBC WITH DIFF 03/19/2025 Next Appt Details Follow Up: 6 Months,prn, Alexia son: Progress Notes * BROCK Radha GDOB:[birth year] (79 yo F)Acc No.[id number]:03/19/2025 Progress Note Patient: Radha WINTERS :?Heaven Ruelas Yumiko ([facility]), CNPDOB:1945 ???Age:79 Y???Sex:FemaleDate:03/19/2025Phone:[phone]:[address], [place], [id number] In:09:05 AM ESTCheck Out:09:25 AM EST Subjective: * Chief Complaints: * 1 . Yearly. 2. Neuropathy in feet- left great toe is swollen and hurts to walk- think possibly gout. 3. Patient said she has been off her Jardiance 25mg for 5-6 weeks- said she has gained 15 pounds back. * HPI: ???General:? left great toe week ago started week [facility] and kidney dr pain management back pain and neuropathy both feet pacemaker needs refill jardiance. * ROS: ???General/Constitutional:?Fever?denies.?Headache?denies.?Weight loss denies.?Ophthalmologic:?Discharge?denies.?Eye Pain?denies.?Itching and redness?denies.?ENT:?Nasal discharge?denies.?Nasal congestion?denies. Sore throat?denies.?Cardiovascular:?Chest tightness/ heavy pressure?denies.?Rapid heart rate?denies.?Swelling of extremities?denies.?Chest pain?denies.?Respiratory:?Productive cough?denies.?Chest pain?denies.?Cough?denies.?Shortness of breath?denies.?Wheezing?denies.?Gastrointestinal:?Abdominal pain?denies.?Constipation?denies.?Decreased appetite?denies.?Diarrhea?denies.?Nausea?denies.?Vomiting denies.?Genitourinary:?Urinary incontinence?denies.?Painful urination?denies.?Musculoskeletal:?Patient complaining of?left great toe pain.?Back pain admits with bilateral neuropathy.?Neck pain?denies.?Muscle aches?denies.?Skin:?Rash?denies.?Skin lesion(s)?denies.? * Active Problem List E66.3 Overweight Modified On:08/25/2022/U Status:knxjicgtsG48.89Other dorsalgia Modified On:08/25/2022/U Status:woedtcgirY90.9Ventral hernia Modified On:08/25/2022/U Status:nyppfedvfV77.9Folliculitis Modified On:08/25/2022/U Status:kisvolpodN22.604Leg pain, right Modified On:08/25/2022 Status:ovbpcklraL60.19Persistent atrial fibrillation Modified On:08/25/2022 Status:hinjwnrmkK35USE (hypertension) Modified On:09/14/2022 Status:vayhomdkhI29.9GERD (gastroesophageal reflux disease) Modified On:09/14/2022 Status:nedzjcmmhE19.0Osteoporosis Modified On:08/25/2022 Status:acmdnlpdcB99.91Atrial fibrillation Modified On:09/14/2022 Status:pfnvwtkojO63.90Arthritis Modified On:08/25/2022 Status:uaghkopzaH67.30Sleep apnea Modified On:08/25/2022 Status:smbljsvpkF89.7Left bundle branch block Modified On:08/25/2022 Status:ygpqlrwzzA09.20Systolic heart failure Modified On:08/25/2022 Status:qtfmcbgweV18.9Allergic rhinitis, unspecified seasonality, unspecified trigger Modified On:09/14/2022 Status:rrdrouajlC61.1Abnormal findings on diagnostic imaging of heart and coronary circulation Modified On:04/15/2023 Status:ucjvmhnkrU43.818Presence of other cardiac implants and grafts Modified On:07/15/2023 Status:sygtjjkciH88.2Paresthesia Modified On:10/22/2023 Status:fmcghtczdG98.10Radiculopathy Modified On:11/11/2023 Status:rpirdmpndA34.81Restless legs syndrome (RLS) Modified On:11/22/2023 Status:uuyiehpbuF07.30Sciatica Modified On:11/22/2023 Status:gocbnxqkpZ21.30Stage 3 chronic kidney disease, unspecified whether stage 3a or 3b CKD Modified On:02/24/2024 Status:nutvjzljcN04.00Insomnia Modified On:03/21/2024 Status:kueyfgysyI56.32Chronic diastolic (congestive) heart failure Modified On:10/20/2025W/U Status:confirmed * Medical History: P ersistent atrial fibrillation, Overweight, Folliculitis, Leg pain, right, Other dorsalgia, HTN (hypertension), GERD (gastroesophageal reflux disease), Osteoporosis, Atrial fibrillation, Arthritis, Sleep apnea, Ventral hernia, Left bundle branch block, Systolic heart failure, Persistent atrial fibrillation. * Surgical History: H ernia Repair 2022, Tonsils/ADnoids , Hysterectomy , Back Surgery , Bladder Sx , Gastric Bypass , Heart Cath 01/20, Watchman Left Atrial appendage device , L4-S1 decompression and fusion . * Hospitalization/Major Diagno stic Procedure: s ee above . * Family History: F ather: . M other: . B darlene(s): alive, diagnosed with Hypertension, Heart Disease. 3 brother(s) . 2 daughter(s) . . * Social History: ???Tobacco Use:?Tobacco Use/Smoking?Patient is a?nonsmoker * Medications: T aking B-Complex - Capsule as directed Orally , Taking Baclofen 10 MG Tablet 1 tablet Orally at bedtime , Taking Biotin 41860 MCG Tablet 1 tablet Orally Once a day , Taking Calcium Carbonate - Powder as directed , Taking CoQ-10 30 MG Capsule as directed Orally , Taking Diclofenac Sodium 75 MG Tablet Delayed Release TAKE 1 TABLET BY MOUTH TWICE A DAY , Taking Ferrous Sulfate 325 (65 Fe) MG Tablet 1 tablet Orally Once a day , Taking Furosemide 40 MG Tablet 1 tablet Orally Once a day , Taking Jardiance(Empagliflozin) 25 MG Tablet Oral , Taking Losartan Potassium 25 MG Tablet 1 tablet Orally Once a day , Taking Magnesium 400 MG Tablet as directed Orally , Taking Metoprolol Succinate 50 MG Capsule ER 24 Hour Sprinkle 1 capsule Orally Once a day , Taking Ondansetron HCl 4 MG Tablet 1 tablet Orally Once a day , Taking oxyCODONE-Acetaminophen 5-325 MG Tablet 1 tablet as needed Orally every 6 hrs , Taking Pantoprazole Sodium 40 MG Tablet Delayed Release TAKE 1 TABLET BY MOUTH EVERY DAY , Taking Pramipexole Dihydrochloride 1 MG Tablet TAKE 1 & 1/2 TABLETS BY MOUTH EVERY DAY , Taking Prasterone (DHEA) 50 MG Capsule as directed Orally , Taking Spironolactone 25 MG Tablet 1 tablet Orally , Taking Sucralfate 1 GM Tablet TAKE 1 TABLET BY MOUTH FOUR TIMES A DAY , Taking traZODone HCl 50 MG Tablet 1 tablet at bedtime as needed Orally Once a day , Taking Turmeric - Powder as directed , Taking Vitamin D3 25 MCG/SPRAY Liquid as directed Orally , Taking Voltaren(Diclofenac Sodium) 1 % Gel as directed Externally , Medication List reviewed and reconciled with the patient * Allergies: C odeine, Lyrica, Lisinopril. Objective: * Vitals: W t:198.6lbs, Ht: 65 in, BP:108/76mm Hg, BMI:33.05Index, Ht-cm: 165.1 cm, Wt-k.08 kg. * Examination: ???General Examinations: ?GENERAL APPEARANCE:?alert and oriented,?in no acute distress.?EYES:?conjunctiva normal, sclera non-icteric.?LUNGS:?clear anteriorly and posteriorly.?CARDIO:?irregular rhythm.?ABDOMEN:?soft, nontender.?BACK:?decreased ROM due to back pain.?MUSCULOSKELETAL:?little redness noted to base of left great toe, no edema noted.?SKIN:?warm and dry, see msk.? Assessment: * Assessment: 1.?Persistent atrial fibrillation - I48.19 (Primary)???2.?Stage 3 chronic kidney disease, unspecified whether stage 3a or 3b CKD - N18.30???3.?Chronic diastolic (congestive) heart failure - I50.32???4.?Arthritis - M19.90?? Plan: * Treatment: Notes: fu cardiology??2.?Stage 3 chronic kidney disease, unspecified whether stage 3a or 3b CKD?LAB: HEMOGLOBIN A1C (GLYCO) ?LAB: IRON, TOTAL ?LAB: LIPID PANEL (CHOL/TRIG/HDL/LDL) ?LAB: VITAMIN D, 25 LEVEL (TOTAL) ?LAB: Insulin Level ?LAB: THYROID PANEL (T4/TSH/FREE T3) ?LAB: CMP (COMP MET HANSON) w/eGFR CKD-EPI ?LAB: CBC WITH DIFF Notes: seeing kidney dr??3.?Chronic diastolic (congestive) heart failure? Refill Jardiance Tablet, 10 MG, 1 tablet, Oral, Once a day, 30 days, 30 Tablet, Refills 11.? Notes: fu cardiology??4.?Arthritis? Start predniSONE Tablet, 20 MG, 2 tablet, Orally, Once a day, 5 days, 10 Tablet, Refills 0.? * Preventive Medicine: ??Screenings/Counseling:?BMI ACTION PLAN?Above Normal BMI Follow-up?Dietary management education, guidance, and counseling * Follow Up: 6 Months,prn * * Electronically signed by Heaven Calderon NP, [employer] STOCK CLERK.[employer].[id number] on 03/20/2025 at 03:08 PM EDTSign off status: CompletedVisit Status:?CHK (Check Out) true * Provider: Sidra Calderon ([facility]), [employer] Date: Generated for Printing/Faxing/eTransmitting on:?03/30/2025 07:42 AM EDT History and Physical Notes * HPI (History of Present Illness) CategorySub-CategoryDetailNotesCategory NotesGeneral left great toe week ago started week ago [facility] and kidney dr pain management back pain and neuropathy both feet pacemaker needs refill jardiance Examination CategorySub-CategoryDetailNotesCategory NotesGeneral ExaminationsGENERAL APPEARANCE:alert and oriented, in no acute distressEYES:conjunctiva normal, sclera non-ictericEARS:NOSE:THROAT:CARDIO:irregular rhythmLUNGS:clear anteriorly and posteriorlyABDOMEN:soft, nontenderSKIN:warm and dry, see mskBACK:decreased ROM due to back painMUSCULOSKELETAL:little redness noted to base of left great toe, no edema notedLYMPH NODES:
--- OUTSIDE RECORDS SUMMARY | 2025-03-30 07:42 | XMS_ITS | CCD ---
Author Organization [facility] Care Team Providers Care Breastfeeding Peer Counselor Name Role Phone JOHNSON ., DR JAYLON Ruelas Admitting Unavailable ORNELAS ., DR JAYLON Ruelas Attending Unavailable LUÍS, HEAVEN Primary Care Unavailable ORNELAS ., DR JAYLON Ruelas Consulting Unavailable MICHELINE MOLINA Consulting Unavailable JOHNSON ., DR JAYLON Ruelas Admitting Unavailable ORNELAS ., DR JAYLON Ruelas Attending Unavailable [facility] Primary Care Unavailable RODRIGUEZ ., SABRINA Consulting Unavailable ORNELAS ., DR JAYLON Ruelas Admitting Unavailable ORNELAS ., DR JAYLON Ruelas Attending Unavailable [facility] Primary Care Unavailable RODRIGUEZ ., SABRINA Consulting Unavailable [facility] Primary Care Unavailable LAKSHMIPATHY ., NARENDRANATH Admitting Charity vailable LAKSHMIPATHY ., NARENDRANATH Attending Charity vailable LAKSHMIPATHY ., NARENDRANATH Consulting Charity vailable LAKSHMIPATHY ., NARENDRANATH Admitting Charity vailable LAKSHMIPATHY ., NARENDRANATH Attending Charity vailable [facility] Primary Care Unavailable LUÍS, HEAVEN Admitting Unavailable LUÍS, HEAVEN Attending [facility]available [facility] Unavailable DR OSWALDO VALENZUELA Consulting Unavailable LUÍS, HEAVEN Consulting Unavailable LUÍS, HEAVEN Primary Care Unavailable DAREK ., KEILY Admitting Unavailable DAREK ., KEILY Attending Unavailable DAREK ., KEILY Consulting Unavailable KELSIE DEL ANGEL Consulting Unavailable OSWALDO GARCÍA Attending Unavailable SANDIE PAGE Attending Unavailable HEAVEN STALEY Referring Unavailable SANDIE PAGE Attending Unavailable CARIDAD GARNER Attending Unavailable Luís [facility]ST[facility] Primary Care Provider Quita ROMO, Florina Bragg Attending Unavailable Quita ROMO, Florina Bragg Attending Unavailable Quita ROMO, Florina Bragg Attending Unavailable NAVID, BIRD Referring Unavailable NAVID, BIRD Referring Unavailable DIANA, SHAYY Referring Unavailable NAVID, BIRD Referring Unavailable NAVID, BIRD Referring Unavailable NAVID, BIRD Referring Unavailable NAVID, BIRD Referring Unavailable NAVID, BIRD Referring Unavailable NAVID, BIRD Referring Unavailable NAVID, BIRD Referring Unavailable NAVID, BIRD Referring Unavailable NAVID, BIRD Referring Unavailable DANIEL, DANII Attending Unavailable NAVID, BIRD Referring Unavailable NAVID, BIRD Referring Unavailable NAVID, BIRD Attending Unavailable NAVID, BIRD Referring Unavailable NAVID, BIRD Referring Unavailable NAVID, BIRD Referring Unavailable NAVID, BIRD Referring Unavailable NAVID, BIRD Referring Unavailable NAVID, BIRD Referring Unavailable Allergies Allergy ClassificationReported Allergen(s)Allergy TypeDate of OnsetReaction(s) Facility (4 sources)Codeine; Translations: [CODEINE]Drug Drmhdfp74-54-8650NhmvfMarParma [facility] (5 sources)CodeineDrug Oxqacym99-20-3222MmkKitzdj [facility] (6 sources)Lisinopril; Translations: [LISINOPRIL]Drug Hkishbs14-37-0373ByrDjhrou Health System (3 sources)pregabalin; Translations: [PREGABALIN]Drug Obehyuu35-13-8749fwyvfqxBluffton Hospital Medications Current Medications MedicationDrug Class(es)DatesSig (Normalized)Sig (Original)acetaminophen 325 mg / oxyCODONE hydrochloride 5 mg oral tablet (7 sources)Opioid AgonistStart: 35-83-5325prdk 1 tablet by mouth every eight hours as neededOxycodone-Acetaminophen (Percocet) 5-325 mg tablet Active 1 TAB PO Every 8 hours as needed 2024 1:00amtake 1 tablet by mouth every four hours as needed for painoxyCODONE-acetaminophen (PERCOCET) 5-325 mg per tablet Take 1 tablet by mouth every 4 (four) hours as needed for pain. Activeb complex vitamins capsule (5 sources)take 1 capsule by mouth in the morningb complex vitamins capsule Take 1 capsule by mouth in the morning. Activetake 1 capsule by mouth in the morning b complex vitamins capsule Take 1 capsule by mouth in the morning. 0 Active baclofen 10 mg oral tablet (2 sources)gamma-Aminobutyric Acid-ergic AgonistStart: 70-02-0890yplb 1 tablet by mouth once daily at bedtimeBaclofen 10 mg tablet Active 10 MG PO Daily at bedtime July 27, 2024 1:00amCalcium Carbonate (5 sources)calcium carbonate (CALCIUM 500 ORAL) Take by mouth daily. Active calcium carbonate (CALCIUM 500 ORAL) Take by mouth daily. 0 ActiveCalcium Carbonate 260 mg calcium (648 mg) tablet (2 sources)Start: 11-20-8744omue 1 tablet by mouth once dailyCalcium Carbonate 260 mg calcium (648 mg) tablet Active 500 MG PO Daily July 27, 2024 1:00am Start: 26-60-6758oqcm 1 tablet by mouth once dailyCalcium Carbonate 260 mg calcium (648 mg) tablet Active 500 MG PO Daily July 27, 2024 12:00am cholecalciferol 0.025 mg oral capsule (7 sources)Vitamin DStart: 35-45-5770rnga 1 capsule by mouth once daily Cholecalciferol (Vitamin D3) 25 mcg (1,000 unit) capsule Active 25 MCG PO Daily July 2751:00amcholecalciferol, vitamin D3, 5,000 units tablet 1 tablet (5,000 Units total) in the morning. Activediclofenac sodium 50 mg delayed release oral tablet (5 sources)Nonsteroidal Anti-inflammatory Drugtake 1 tablet by mouth in the morningdiclofenac (VOLTAREN) 50 mg EC tablet Take 1 tablet (50 mg total) by mouth in the morning. Activeferrous sulfate 325 mg delayed release oral tablet (9 sources)Start: 06-88-6317gdwn 1 tablet by mouth once dailyFerrous Sulfate 325 mg (65 mg iron) tablet,delayed release (DR/EC) Active 325 MG PO Daily October 19, 2024 12:00amStart: 97-96-2718ikux 1 tablet by mouth every other dayFerrous Sulfate 325 mg (65 mg iron) tablet Active 325 MG PO .QOD 45 October 19, 2024 12:00amStart: 07-27-2024 End: 42-61-0515Pwhtrfq Sulfate 325 mg (65 mg iron)/5 mL solution Discontinued MG PO July 27, 2024 1:00am 2024 1:18pmStart: 17-69-4911Rylqodn Sulfate 325 mg (65 mg iron)/5 mL solution Active MG PO July 27, 2024 12:00amtake 1 tablet by mouth once daily at breakfastferrous sulfate 325 (65 FE) mg tablet Take 1 tablet (325 mg total) by mouth daily with breakfast. Active folic acid/multivit-min/lutein (CENTRUM SILVER ORAL) (5 sources)take 1 tablet by mouth once dailyfolic acid/multivit-min/lutein (CENTRUM SILVER ORAL) Take 1 tablet by mouth daily. Activetake 1 tablet by mouth once dailyfolic acid/multivit-min/lutein (CENTRUM SILVER ORAL) Take 1 tablet by mouth daily. 0 Activefurosemide 40 mg oral tablet (8 sources)Loop DiureticStart: 38-39-6565wgkc 1 tablet by mouth once daily Furosemide 40 mg tablet Active 40 MG PO Daily July 27, 2024 1:00amStart: 03-18-2023 End: 87-00-1018ayva 1 tablet by mouth once dailyfurosemide (LASIX) 40 mg tablet Take 1 tablet (40 mg total) by mouth daily. PT NEEDS APPT AND LABS FOR FURTHER REFILLS 30 tablet 1 06/08/2023 Activelactobacillus acidophilus [id number] unt oral capsule (5 sources)take 1 tablet by mouth once dailyLactobacillus acidophilus 10 billion cell capsule Take 1 tablet by mouth daily. Activelosartan potassium 25 mg oral tablet (2 sources)Angiotensin 2 Receptor BlockerStart: 53-89-6379btwu 1 tablet by mouth once dailyLosartan 25 mg tablet Active 25 MG PO Daily July 27, 2024 1:00am24 hr metoprolol succinate 50 mg extended release oral tablet (9 sources)beta-Adrenergic BlockerStart: 73-20-3508qyda 1 tablet by mouth once dailyMetoprolol Succinate 50 mg tablet extended release 24 hr Active 50 MG PO Daily July 27, 2024 1:00amStart: 14-00-0894aqap 1 tablet by mouth every twenty-four hours in the morningmetoprolol succinate XL (TOPROL XL) 50 mg 24 hr tablet TAKE 1 TABLET (50 MG TOTAL) BY MOUTH IN THE MORNING 90 tablet 09/10/2023 ActiveStart: 04-28-2023 End: 89-65-9370xwnk 1 tablet by mouth every twenty-four hours in the morning metoprolol succinate XL (TOPROL XL) 50 mg 24 hr tablet Take 1 tablet (50 mg total) by mouth in the morning. 90 tablet 12/06/2023 ActiveMultivitamin (Daily Multi-Vitamin) tablet (2 sources)Start: 63-36-8830bwio 1 tablet by mouth once dailyMultivitamin (Daily Multi-Vitamin) tablet Active 1 TAB PO Daily July 27, 2024 1:00amStart: 65-70-2624qvmf 1 tablet by mouth once dailyMultivitamin (Daily Multi-Vitamin) tablet Active 1 TAB PO Daily July 27, 2024 12:00ampantoprazole 40 mg delayed release oral tablet (7 sources)Proton Pump InhibitorStart: 13-17-8936gzxb 1 tablet by mouth once dailyPantoprazole (Protonix) 40 mg tablet,delayed release (DR/EC) Active 40 MG PO Daily July 27, 2024 1:00amtake 1 dose by mouth in the morning pantoprazole (PROTONIX) [address] for susp in packet Take 1 packet (40 mg total) by mouth in the morning. Mrelzh11 hr pramipexole dihydrochloride 1.5 mg extended release oral tablet (7 sources)Nonergot Dopamine AgonistStart: 50-73-6405cnmr 1 tablet by mouth once daily at bedtimePramipexole (Mirapex Er) 1.5 mg tablet extended release 24 hr Active 1.5 MG PO Daily at bedtime July 27, 2024 1:00amtake 1.5 tablets by mouth in the morningpramipexole (MIRAPEX) 1 mg tablet Take 1.5 tablets (1.5 mg total) by mouth in the morning. Activepregabalin 50 mg oral capsule (5 sources)Start: 09-46-3289aknzwwrfod (LYRICA) 50 mg capsule 1 capsule (50 mg total) once daily at bedtime. 04/27/2022 Activespironolactone 25 mg oral tablet (8 sources)Aldosterone AntagonistStart: 36-67-1893xnqv 1 tablet by mouth once dailySpironolactone 25 mg tablet Active 25 MG PO Daily July 27, 2024 1:00amStart: 06-15-2022 End: 55-40-0633qtnh 1 tablet by mouth in the morningspironolactone (ALDACTONE) 25 mg tablet Indications: Chronic systolic CHF (congestive heart failure) ([facility]) Take 1 tablet (25 mg total) by mouth in the morning. Need labs and appt for more refills. 90 tablet 06/15/2023 Activesucralfate 1000 mg oral tablet (7 sources)Aluminum ComplexStart: 14-53-0023bjhm 1 tablet by mouth four times daily as neededSucralfate (Carafate) 1 gram tablet Active 1 GM PO Four times daily as needed July 27, 2024 1:00amtake 1 tablet by mouth at bedtime sucralfate (CARAFATE) 1 gram tablet Take 1 tablet (1 g total) by mouth in the morning and 1 tablet (1 g total) before bedtime. ActivetraZODone hydrochloride 150 mg oral tablet (7 sources)Serotonin Reuptake InhibitorStart: 32-51-7055gfte 1 tablet by mouth once daily at bedtime as neededTrazodone 150 mg tablet Active 150 MG PO Daily at bedtime as needed July 27, 2024 1:00amtake 3 tablets by mouth once daily as neededtraZODone (DESYREL) 50 mg tablet Take 3 tablets (150 mg total) by mouth nightly as needed. Activeubidecarenone 100 mg oral capsule (7 sources)Start: 55-13-9274aqla 10 capsules by mouth once dailyCoenzyme Q10 100 mg capsule Active 100 MG PO Daily July 27, 2024 1:00amtake 1 capsule by mouth once in the morningcoenzyme Q10 100 mg capsule Take 1 capsule (100 mg total) by mouth in the morning. Activevalsartan 40 mg oral tablet (5 sources)Angiotensin 2 Receptor BlockerStart: 22-52-5075kfwu 0.5 tablet by mouth in the morningvalsartan (DIOVAN) 40 mg tablet Take 0.5 tablets (20 mg total) by mouth in the morning. 45 tablet Activevitamin k1 5 mg oral tablet (2 sources)Warfarin Reversal Agent, Vitamin KStart: 27-50-0666igvo 1 tablet by mouth once dailyPhytonadione (Vitamin K1) 5 mg tablet Active 5 MG PO Daily July 27, 2024 1:00am Problems Active Problems Problem ClassificationProblemDateDocumented DateEpisodic/ChronicAnxiety disorders (5 sources)Anxiety; Translations: [Anxiety disorder, unspecified]Onset: 257801-29-4140BhbopkaYyspsjk dysrhythmias (20 sources)Unspecified atrial fibrillation; Translations: [Persistent atrial fibrillation]Onset: 06-06-2014 Resolved: 825330-09-0587HkifyqxZlmllyt kidney disease (4 sources)Chronic kidney disease stage 3; Translations: [Stage 3 chronic kidney disease]31-00-1524CzxxpxbUknbyahkko disorders (14 sources)Left bundle branch block; Translations: [Left bundle-branch block, unspecified]Onset: 07-13-2014 Resolved: 864061-92-2384MpnxjiaLwqmrdegwd heart failure; nonhypertensive (17 sources)Chronic systolic heart failure; Translations: [Chronic systolic (congestive) heart failure]Onset: 108547-82-4354XggdqxzVlvamesf atherosclerosis and other heart disease (2 sources)Atherosclerotic heart disease of lumbee coronary artery without angina pectoris; Translations: [Atherosclerotic heart disease of lumbee coronary artery without angina pectoris]Onset: 67-77-7121KbwbkgxQqpzmrxjlq and other anemia (1 source)Anemia, unspecified; Translations: [ANEMIA UNSPECIFIED]Onset: 59-37-2140LigdnlnmTexodeis mellitus without complication (1 source)Other abnormal glucose; Translations: [OTHER ABNORMAL GLUCOSE]Onset: 61-66-4408XwrxzlmaGkdldmabe of lipid metabolism (6 sources)Hyperlipidemia; Translations: [Hyperlipidemia, unspecified]Onset: 924562-66-1294ItmwmdvTkstezzxc hypertension (12 sources)Essential (primary) hypertension; Translations: [Essential hypertension]Onset: 31-22-8593QunurgeSdzmritlafpu with complications and secondary hypertension (4 sources)Chronic kidney disease due to hypertension; Translations: [Hypertensive chronic kidney disease withstage 1 through stage 4 chronic kidney disease, or unspecified chronic kidney disease]70-57-3227UtxatzbOlvgvbqivcm deficiencies (4 sources)Iron deficiency; Translations: [Iron deficiency]45-65-9805Qqmtteoh Other circulatory disease (7 sources)Presence of other cardiac implants and grafts; Translations: [Other specified cardiac device in situ]Onset: 329242-25-0174ThsycwoZppqv hereditary and degenerative nervous system conditions (5 sources)Restless legs; Translations: [Restless legs syndrome]Onset: 351393-55-0377AlssoinFtwwu nervous system disorders (5 sources)Other chronic pain; Translations: [OTHER CHRONIC PAIN]Onset: 67-50-4828EjhgehwNxhvm nutritional; endocrine; and metabolic disorders (5 sources)Obesity; Translations: [Obesity, unspecified]Onset: 10-11-2020 57-99-7503OrbmmhbAqttg nutritional; endocrine; and metabolic disorders (5 sources)Body mass index 30+ - obesity; Translations: [Body mass index (BMI) 34.0-34.9, adult]Onset: 874635-61-0774NjddqoxGqghg screening for suspected conditions (not mental disorders or infectious disease) (1 source)Encounter for screening mammogram for malignant neoplasm of breast; Translations: [ENC SCR MAMMO MALIG NEOPLASM BREAST]Onset: 17-61-7849Rxwdrxwb Darleen-; endo-; and myocarditis; cardiomyopathy (except that caused by tuberculosis or sexually transmitted disease) (12 sources)Cardiomyopathy; Translations: [Other cardiomyopathies]Onset: 06-06-2014 Resolved: 666123-34-0837RiacnkiOhaeosdc codes; unclassified (1 source)Sleep apnea, unspecified; Translations: [SLEEP APNEA UNSPECIFIED] Onset: 58-93-4557MmcoaxrHhmasfda codes; unclassified (5 sources)Obstructive sleep apnea of adult; Translations: [Obstructive sleep apnea (adult) (pediatric)]Onset: 891194-94-8032BbzbfoqRvbvpdstyxe; intervertebral disc disorders; other back problems (7 sources)Other spondylosis with radiculopathy, lumbar region; Translations: [Other intervertebral disc degeneration, lumbar region]Onset: 20-06-0756Bqjxazj Unclassified (1 source)LOW BACK PAIN, UNSPECIFIED; Translations: [LOW BACK PAIN, UNSPECIFIED] Onset: 32-78-3480Gmfhgjcxqrzs (2 sources)Longstanding persistent atrial fibrillation; Translations: [Longstanding persistent atrial fibrillation]Onset: 68-28-1969Sbbboljkmtkz (2 sources)Other persistent atrial fibrillation; Translations: [Other persistent atrial fibrillation]Onset: 12-01-2023 Past or Other Problems Problem ClassificationProblemDateDocumented DateEpisodic/ChronicAbdominal hernia (2 sources)Ventral hernia without obstruction or gangrene; Translations: [Diaphragmatic hernia without obstruction or gangrene]Onset: 56-89-0406Mtjtqckn Abdominal pain (4 sources)Unspecified abdominal pain; Translations: [UNSPECIFIED ABDOMINAL PAIN]Onset: 68-89-0674QkdyivarGkakbjl dysrhythmias (5 sources)Bradycardia; Translations: [Bradycardia, unspecified] Resolved: 590515-72-1583KzaalywcKxducom and fatigue (5 sources)Fatigue; Translations: [Other fatigue]Onset: 11-03-2018 Resolved: 102121-52-8475QgivbktqIrbeh aftercare (1 source)Other nursing home (current) drug therapy; Translations: [OTH ASSISTED CURRENT DRUG THERAPY]Onset: 85-19-5733KcsvawlpQofbw connective tissue disease (1 source)Fibromyalgia; Translations: [FIBROMYALGIA]Onset: 99-29-1955Nodbspgq Other connective tissue disease (4 sources)Other muscle spasm; Translations: [OTHER MUSCLE SPASM]Onset: 68-41-6675OnzvrldxTqsoz gastrointestinal disorders (1 source)Bariatric surgery status; Translations: [BARIATRIC SURGERY STATUS] Onset: 20-21-3794YegseioxRwppj lower respiratory disease (10 sources)Dyspnea; Translations: [Shortness of breath]Onset: 07-02-2016 Resolved: 828863-51-1026QmjmfimpGbyxuail codes; unclassified (1 source)Acquired absence of other specified parts of digestive tract; Translations: [ACQ ABSENCE OTH PART DIGESTV TRACT]Onset: 02-66-3127Infjofba Spondylosis; intervertebral disc disorders; other back problems (5 sources)Intervertebral disc disorders with radiculopathy, lumbar region; Translations: [Spinal stenosis, lumbar region without neurogenic claudication] Onset: 83-74-0364Nyvowygv Results Test NameValueInterpretationReference RangeFacilityOrders Onlyon 03-14-2025 Orders [id number] Radha Gutiérrez 1945 F Date Provider Department Center 03/14/2025 21649-ONZRSAMREEN FISHMAN [facility] Family History Problem Relation Age of Onset Heart failure Father Family Status - Relation Status Age at FatherNormalUniversity of [facility]phur SpringsOrders Onlyon 04-92-0269Wcbmld [id number] Radha Gutiérrez 1945 F Date Provider Department Center 02/11/2025 RAULBIRD LAFLEUR [facility] Family History Problem Relation Age of Onset Heart failure Father Family Status - Relation Status Age at FatherNormalUniversity of [facility] SpringsOrders Onlyon 14-55-1845Rlfzxo [id number] Radha Gutiérrez 1945 Date Provider Department Center 01/11/2025 241WHITNEYNAVIDBIRD LAFLEUR [facility] CARD [facility] Family History Problem Relation Age of Onset Heart failure Father Family Status - Relation Status [facility]No[facility]Unim[facility] SpringsErythrocyte distribution width Auto (RBC) [Ratio]on 03-20-8588Lghsqltpbgb distribution width (RBC) [Ratio] Erythrocyte distribution width [Ratio] by Automated tbwbuPumv51.0-15.0[facility] HospitalEstimated glomerular filtration rate (GFR) non- Americanon 30-09-9834KWB/1.73 sq M.predicted among non-blacks MDRD (S/P/Bld) [Vol rate/Area]Estimated glomerular filtration rate (GFR) non- Low>=60 mL/min/1.73m [address] [place], [place] [address]Hematocrit Auto (Bld) [Volume fraction]on 20-15-7586Jalzenzqqp (Bld) [Volume fraction]Hematocrit [Volume Fraction] of Blood by Automated xsktlQcm99.0-48.0[facility] HospitalHemoglobin [Mass/volume] in Bloodon 27-57-6083Dohyvwctvo (Bld) [Mass/Vol]Hemoglobin [Mass/volume] in CgqnwYkp21.0-16.0[facility] HospitalIron binding capacity [Mass/volume] in Serum or Plasmaon 73-30-9564Lgia binding capacity [Mass/Vol]Iron binding capacity [Mass/volume] in Serum or Benrua474.0-450.0[facility] HospitalIron saturation [Mass Fraction] in Serum or Plasmaon 32-53-0667Mphw saturation [Mass fraction] Iron saturation [Mass Fraction] in Serum or PlasmaMercy Health St. Charles HospitalLaboratory - Chemistry and Chemistry - challengeon 70-55-0082Wlznjhl [Mass/Vol]3.2 g/dLLow3.4-5.0[facility] HospitalCalcium [Mass/Vol] 8.9 mg/dL8.5-10.1FOhio State East HospitalChloride [Moles/Vol]105 mmol/L 98-107[facility] HospitalCO2 [Moles/Vol]28.4 mmol/L21.0-32.[address] [facility] HospitalCreatinine [Mass/Vol]1.33 mg/dLHigh0.55-1.[address] [facility] HospitalFerritin [Mass/Vol]13.0 ng/mL8.0-252.0[facility] HospitalGFR/1.73 sq M.predicted MDRD (S/P/Bld) [Vol rate/Area]47 mL/min/{1.73_m2}Low>=60 mL/min/1.73m 2FOhio State East HospitalGlucose [Mass/Vol]85 mg/gI71-146WowzvsyppMercy Health St. Charles HospitalIron [Mass/Vol]33.0 ug/dLLow50.0-170.0[facility] HospitalMagnesium [Mass/Vol]2.1 mg/dL 1.8-2.4FOhio State East HospitalPotassium [Moles/Vol]4.6 mmol/L3.5-5.1 [facility] Beachwoododium [Moles/Vol]139 mmol/K965-392WssurwuitMercy Health St. Charles HospitalUrate [Mass/Vol]6.1 mg/dLHigh2.6-6.0[facility] HospitalUrea nitrogen [Mass/Vol]30.0 mg/dLHigh7.0-18.0[facility] HospitalUrea nitrogen/Creatinine [Mass ratio]22.6 mg/mgMercy Health St. Charles HospitalLaboratory - Urinalysison 58-70-4018Ogvywkn (U) [Mass/Vol]15.7 mg/dLHigh<=11.9[facility] HospitalLeukocytes [#/volume] corrected for nucleated erythrocytes in Blood by Automated counon 74-46-9626LSI corrected for nucl RBC Auto (Bld) [#/Vol]Leukocytes [#/volume] corrected for nucleated erythrocytes in Blood by Automated coun4.0-11.0[facility] MCH Auto (RBC) [Entitic mass]on 71-46-5716SPV (RBC) [Entitic mass]MCH [Entitic mass] by Automated count26.7-34.0[facility] HospitalMCHC Auto (RBC) [Mass/Vol]on 16-88-3777KGKY (RBC) [Mass/Vol]MCHC [Mass/volume] by Automated count29.9-35.2FOhio State East HospitalMCV Auto (RBC) [Entitic vol]on 49-98-5100IDG (RBC) [Entitic vol]MCV [Entitic volume] by Automated count 81.0-99.0[facility] HospitalNo Panel Informationon - Hydroxy Vitamin D Total46.5 ng/mLMercy Health St. Charles HospitalComment on above:<20 ng/mL Vit D ddljnagvu86-<30 ng/mL Vit D wwufxnbytuvn52-163 ng/mL Vit D sufficient>100 ng/mL Potential ToxicityParathyroid Hormone (Intact)76 pg/mL Itcnbacm48-24MzyovgjnoMercy Health St. Charles HospitalComment on above:Performed at: - [facility] [id number] Director: Ra Gonzalez PhD, Phone: [phone] Level3.9 mg/dL2.6-4.7FOhio State East HospitalUrine Random Zihjwugnug45.53 mg/dL20.00-300.00[facility] HospitalPlatelet mean volume Auto (Bld) [Entitic vol]on 61-11-8025Davmyvia mean volume (Bld) [Entitic vol]Platelet mean volume [Entitic volume] in Blood by Automated count9.5-13.5FOhio State East Hospital Platelets Auto (Bld) [#/Vol]on 74-73-8076Ceirmkxbk (Bld) [#/Vol]Platelets [#/volume] in Blood by Automated jndun340-159HpbrzdgjqMercy Health St. Charles Hospital RBC Auto (Bld) [#/Vol]on 77-93-1671NIJ (Bld) [#/Vol]Erythrocytes [#/volume] in Blood by Automated countLow4.20-5.40[facility], Beachwooderum or plasma anion gap determinationon 48-01-0478Eovei gap [Moles/Vol]Serum or plasma anion gap determinationMercy Health St. Charles HospitalUrine protein/creatinine ratioon 11-97-5055Ucrffeq/Creatinine (U) [Ratio]Urine protein/creatinine ratio [facility] HospitalErythrocyte distribution width Auto (RBC) [Ratio]on 98-59-9523Eefntopbeng distribution width (RBC) [Ratio]Erythrocyte distribution width [Ratio] by Automated gzzndHdyg99.0-15.0[facility] HospitalEstimated glomerular filtration rate (GFR) non- Americanon 63-74-9060TAK/1.73 sq M.predicted among non-blacks MDRD (S/P/Bld) [Vol rate/Area]Estimated glomerular filtration rate (GFR) non- AmericanLow>=60 mL/min/1.73m 2FOhio State East HospitalHematocrit Auto (Bld) [Volume fraction]on 53-02-5311Izphbunmqb (Bld) [Volume fraction]Hematocrit [Volume Fraction] of Blood by Automated hrwclPxp86.0-48.0[facility] HospitalHemoglobin [Mass/volume] in Bloodon 91-56-2220Sjrofyljrt (Bld) [Mass/Vol] Hemoglobin [Mass/volume] in SefjeDhp25.0-16.0[facility] Iron binding capacity [Mass/volume] in Serum or Plasmaon 35-54-3984Vlhm binding capacity [Mass/Vol]Iron binding capacity [Mass/volume] in Serum or Plasma 250.0-450.0[facility] HospitalIron saturation [Mass Fraction] in Serum or Plasmaon 42-40-0919Fboj saturation [Mass fraction]Iron saturation [Mass Fraction] in Serum or PlasmaMercy Health St. Charles HospitalLaboratory - Chemistry and Chemistry - challengeon 71-90-6690Szodfcb [Mass/Vol]3.4 g/dL 3.4-5.0[facility] HospitalCalcium [Mass/Vol]9.0 mg/dL8.5-10.[address] [facility] HospitalChloride [Moles/Vol]108 mmol/OQmhn27-[address] [facility] HospitalCO2 [Moles/Vol]26.5 mmol/L21.0-32.0[facility] HospitalCreatinine [Mass/Vol]1.36 mg/dLHigh0.55-1.02[facility] HospitalFerritin [Mass/Vol]17.0 ng/mL8.0-252.0[facility] HospitalGFR/1.73 sq M.predicted MDRD (S/P/Bld) [Vol rate/Area]45 mL/min/{1.73_m2}Low>=60 mL/min/1.73m 2FOhio State East HospitalGlucose [Mass/Vol]96 mg/tT96-339NotqdgkolMercy Health St. Charles HospitalIron [Mass/Vol]71.0 ug/dL50.0-170.0[facility] HospitalMagnesium [Mass/Vol]2.4 mg/dL 1.8-2.4FOhio State East HospitalPotassium [Moles/Vol]4.7 mmol/L3.5-5.1 [facility] Beachwoododium [Moles/Vol]140 mmol/S228-117VecwejrpoMercy Health St. Charles HospitalUrate [Mass/Vol]6.5 mg/dLHigh2.6-6.0[facility] HospitalUrea nitrogen [Mass/Vol]36.0 mg/dLHigh7.0-18.0[facility] HospitalUrea nitrogen/Creatinine [Mass ratio]26.5 mg/mgMercy Health St. Charles HospitalLeukocytes [#/volume] corrected for nucleated erythrocytes in Blood by Automated counon 81-61-8793XEY corrected for nucl RBC Auto (Bld) [#/Vol]Leukocytes [#/volume] corrected for nucleated erythrocytes in Blood by Automated coun4.0-11.0[facility] HospitalMCH Auto (RBC) [Entitic mass]on 89-06-6669SLN (RBC) [Entitic mass]MCH [Entitic mass] by Automated count 26.7-34.0[facility] HospitalMCHC Auto (RBC) [Mass/Vol]on 59-58-6818NCHD (RBC) [Mass/Vol]MCHC [Mass/volume] by Automated count29.9-35.[address] [facility] HospitalMCV Auto (RBC) [Entitic vol]on 27-42-3921AZZ (RBC) [Entitic vol]MCV [Entitic volume] by Automated count81.0-99.0[facility] HospitalNo Panel Informationon [id number] Vitamin D Total45.3 ng/mLMercy Health St. Charles HospitalComment on above:<20 ng/mL Vit D qeicwvzra42-<30 ng/mL Vit D bvgjwctzspxu42-575 ng/mL Vit D sufficient>100 ng/mL Potential ToxicityParathyroid Hormone (Intact)106 pg/pEFllkaiwn13-55FhkhcxmpfMercy Health St. Charles HospitalComment on above:Performed at: [facility] [address] [id number] Director: Ra Gonzalez PhD, Phone: [phone] Level3.7 mg/dL2.6-4.7FOhio State East HospitalUrine Random Xhywzfcrcv55.44 mg/dL20.00-300.00[facility] HospitalUrine Random Total Protein<6.0 mg/dL<=11.9[facility] HospitalOffice Visiton 93-52-2815Rbiedq-up [id number] Radha Gutiérrez 1945 F Date Provider Department Center 08/18/2024 [id number], ADAM MAGNUS Herrera [facility] Family History Problem Relation Age of Onset Heart failure Father Family Status - Relation Status Age at Father Level of Service:83198 [place] OFFICE/OUTPATIENT ESTABLISHED LOW MDM 20 [facility] HospitalPlatelet mean volume Auto (Bld) [Entitic vol] on 38-46-0001Gstfwvrc mean volume (Bld) [Entitic vol]Platelet mean volume [Entitic volume] in Blood by Automated count9.5-13.5FOhio State East HospitalPlatelets Auto (Bld) [#/Vol]on 18-79-7461Ecncjxgse (Bld) [#/Vol]Platelets [#/volume] in Blood by Automated evasb645-848IgkinjjieMercy Health St. Charles Hospital RBC Auto (Bld) [#/Vol]on 39-43-7344EGB (Bld) [#/Vol]Erythrocytes [#/volume] in Blood by Automated countLow4.20-5.40[facility], Beachwooderum or plasma anion gap determinationon 21-30-1944Ocfuw gap [Moles/Vol]Serum or plasma anion gap determinationMercy Health St. Charles HospitalOffice Visiton 71-54-3261Mbqhlb-up [id number] Radha Gutiérrez 1945 F Date Provider Department Center 03/21/2024 BIRD GEE [facility] Family History Problem Relation Age of Onset Heart failure Father Family Status - Relation Status Age at Father Level of Service:99345 [place] OFFICE/OUTPATIENT ESTABLISHED LOW MDM 20 [facility] HospitalINSULINon 13-27-5104Rkwecac7.9 uIU/mLNormal 2.6-24.9The [facility] SystemComment on above:Performed By: #### INSULIN ####[facility] Tnyskzklig[address] [place], [place] [address]Dr. Yilan ChangCBC AUTO DIFFon 34-58-8915PEXJ #0.0 103/ulNormal0.0-0.1The [facility] SystemComment on above:Performed By: #### CBC ####[facility] [address]awbih[address] [place] [address]Dr.Yilan ChangBasophils/100 WBC (Bld)0.4 %Normal0.2-2.0The [facility] SystemComment on above:Performed By: #### CBC ####[facility] Ffwrfgtuxn[address] [place] [address]Dr.Yilan ChangEO #0.6 103/ulNormal0.0-0.7The [facility] SystemComment on above:Performed By: #### CBC ####[facility] Wgvedkzrbj[address] [place], [place] [address]Dr.Yilan ChangEosinophils/100 WBC (Bld)6.6 %Normal 0.9-7.0The [facility] SystemComment on above:Performed By: #### CBC ####[facility] Aeebfnhsvc[address] [place] [address]Dr.Ravin Dior Erythrocyte distribution width (RBC) [Ratio]16.2 %Critically high11.0-15.0The [facility] SystemComment on above:Performed By: #### CBC ####[facility] Ehwsmscrsv[address] [place], [place] [address]Dr.Novalilliana OviHematocrit (Bld) [Volume fraction]43.3 %Nhcdsy93.0-48.0The [facility] SystemComment on above:Performed By: #### CBC ####[facility] Hfesogxauw[address] [place], [place] [address]Dr.Ravin DiorHemoglobin (Bld) [Mass/Vol]13.4 g/dL Jxiowf48.0-16.0The [facility] SystemComment on above:Performed By: #### CBC ####[facility] Resqyhsbev[address] [place], [place] [address]Dr. Ravin DiorIG #0.05 10e3/ulCritically high0.00-0.03The [facility] SystemComment on above:Performed By: #### CBC ####[facility] Ynznfqwvdo98[address] [place], [place] [address]Dr.Ravin DiorIG %0.5 %Normal0.0-0.5The [facility] SystemComment on above:Performed By: #### CBC ####[facility] Drrrxcdxtn34[address] [place], [place] [address]Dr.Ravin DiorLYMPH #2.1 103/ulNormal1.2-3.8The [facility] SystemComment on above:Performed By: #### CBC ####[facility] Szqikulpva65[address] [place], [place] [address]Dr. Ravin DiorLymphocytes/100 WBC (Bld)23.1 %Uzxjta90.5-60.0The [facility] Comment on above:Performed By: #### CBC ####[facility] Jmguxnsnqa[address] [place], [place] [address]Dr.Ravin DiorMANUAL DIFF REQNONormalThe [facility] SystemComment on above:Performed By: #### CBC ####[facility] Sumlfbmekm[address] [place] [address]Dr.Ravin DiorH (RBC) [Entitic mass]29.5 qgNprsnb65.7-34.0The [facility] SystemComment on above: Performed By: #### CBC ####[facility] Dvyrqydcxv[address] [place] [address]Dr.Ravin OviHC (RBC) [Mass/Vol]30.9 g/dLNormal 29.9-35.2The Houston HospitalComment on above:Performed By: #### CBC ####[facility] Rureclaavv[address] [place] [address]Dr. Ravin OviV (RBC) [Entitic vol]95.4 tPZvnylv30.0-99.0The [facility] Comment on above:Performed By: #### CBC ####[facility] Xdqzvlupxa78[address] [place], [place] [address]Dr.Ravin DiorMONO #0.5 103/ulNormal0.3-0.8 The [facility] SystemComment on above:Performed By: #### CBC ####[facility] Hwhkwduqxl[address] [place], [place] [address]Dr.Ravin Ovi Monocytes/100 WBC (Bld)5.8 %Normal1.7-12.0The [facility] SystemComment on above: Performed By: #### CBC ####[facility] Zgytlscahg[address] [place], [place] [address]Dr.Ravin OviNEUT #5.8 103/ulNormal1.4-6.5The [facility] SystemComment on above:Performed By: #### CBC ####[facility] Lkxmilazsf[address] [place], [place] [address]Dr.Novalilliana DiorNeutrophils/100 WBC (Bld)63.6 %Csldtx19.0-75.0The [facility] SystemComment on above:Performed By: #### CBC ####[facility] Pcieylidqs[address] [place], [place] [address]Dr.Ravin OviPlatelet mean volume (Bld) [Entitic vol]10.7 fLNormal9.5-13.5 The [facility] SystemComment on above:Performed By: #### CBC ####[facility] [address]jxizhpe[address] [place] [address]Dr.Yilan DiorPLT223 103/irGhjisn783-753Xdt [facility] SystemComment on above:Performed By: #### CBC ####[facility] Jmhrbxdrcd16[address] [place] [address]Dr. Ravin DiorRBC4.54 106/ulNormal4.20-5.40The [facility] SystemComment on above: Performed By: #### CBC ####[facility] Rtqxdoojga[address] [place] [address]Dr.Yilan DiorWBC9.2 103/ulNormal4.0-11.0The [facility] SystemComment on above:Performed By: #### CBC ####[facility] Itbqupscsj[address] [place] [address]Dr.Yilan Black THYROXINE INDEX T7on 34-48-6411AAY4.91Hylzab3.30-4.50[facility] HospitalComment on above:Performed By: #### CMP, T7, TSH, LIPID #### [facility] [address] [place] [address] [address] Ravin DiorT3U33.0 %Secnah60.0-39.0[facility] HospitalComment on above: Performed By: #### CMP, T7, TSH, LIPID #### [facility] [address] [address] [address] Ravin DiorT4 [Mass/Vol]7.40 ug/dLNormal4.80-13.90The [facility] Comment on above:Performed By: #### CMP, T7, TSH, LIPID #### [facility] [address] [address] [address] Ravin DiorGLYCOHEMOGLOBIN A1Con 41-61-1916QHU RECOMMENDATIONSEE BELOWNormal [facility] HospitalComment on above:Result Comment: ADA RECOMMENDED LIMIT 4.0 - 6.0 ADA THERAPEUTIC TARGET < 7.0 ACTION SUGGESTED > 7.0Performed By: #### A1C ####[facility] [address]ralyxz[address] [place] [address]Dr. Ravin DiorGlucose [Mass/Vol]105 mg/dLAdams County Regional Medical CenterComkalkaska memorial health center on above:Performed By: #### A1C ####[facility] Ontantbhai[address] [place] [address]Dr.Ravin DiorHbA1c (Bld) [Mass fraction]5.3 %Normal 4.5-6.2The [facility] SystemComkalkaska memorial health center on above:Performed By: #### A1C ####[facility] Aqqbewhxan[address] [place], [place] [address]Dr.Ravin DiorIRONon 87-27-8209Embv [Mass/Vol]81.0 ug/jSWhslyu85.0-170.0The [facility] SystemComment on above:Performed By: #### IRON ####[facility] Wwywxpjsur[address] [place], [place] [address]Dr. Ravin DiorLIPID PROFILEon 59-05-9339EPMO-HDL RATIO NORMSSumma HealthComment on above:Result Comment: 3.3 - 4.4 LOW RISK 4.4 - 7.1 AVERAGE RISK 7.1 - 11.0 MODERATE RISK >11.0 HIGH RISKPerformed By: #### CMP, T7, TSH, LIPID ####[facility] Ykjghxxtkt[address] [place], [place] [address]Dr. Ravin DiorCholesterol [Mass/Vol]159 mg/dLNormal<=200The [facility] on above:Performed By: #### CMP, T7, TSH, LIPID ####[facility] Rlywmujrjm[address] [place], [place] [address]Dr. Ravin DiorCholesterol in HDL [Mass/Vol]47 mg/oJFnfanu57-64Blv [facility] on above:Performed By: #### CMP, T7, TSH, LIPID ####[facility] Vbfoaqfvqn[address] [place], [place] [address]Dr. Ravin DiorCholesterol in LDL [Mass/Vol]96.4 mg/dLAdams County Regional Medical Center Comment on above:Performed By: #### CMP, T7, TSH, LIPID ####[facility] [address] [place] [id number]. Ravin Ovi Cholesterol.total/Cholesterol in HDL [Mass ratio]3.4 {ratio}NormalMercy Health Perrysburg HospitalComment on above:Performed By: #### CMP, T7, TSH, LIPID ####[facility] [address]zpf[address]lb[address] [place] [id number]. Ravin ChangHDL NORMAL> or = 60 mg/dl - LOW CARDIOVASCULAR RISK <40 mg/dl - HIGH CARDIOVASCULAR RISKAdams County Regional Medical CenterComment on above:Performed By: #### CMP, T7, TSH, LIPID ####[facility] Z[address]ftdz[address] [place] [address]Dr. Ravin ChangLDL CALC NORMALSEE BELOWAdams County Regional Medical CenterComment on above:Result Comment: <100 mg/dl OPTIMAL 100 - 129 mg/dl NEAR OR ABOVE OPTIMAL 130 - 159 mg/dl BORDERLINE HIGH 160 - 189 mg/dl HIGH >190 mg/dl VERY HIGHPerformed By: #### CMP, T7, TSH, LIPID ####[facility] [address]mttc[address] [place] [id number]. Ravin OviTriglyceride [Mass/Vol]78 mg/dLNormal<=150[facility] HospitalComment on above:Performed By: #### CMP, T7, TSH, LIPID ####[facility] Gonzlotmgx[address] [place] [id number]. Ravin DiorVLDL CALC15.6 mg/dLNoMemorial Health System Selby General HospitalComment on above:Performed By: #### CMP, T7, TSH, LIPID ####[facility] R[address]yclt[address] [place] [id number]. Novalilliana DiorMG MAMM SCREEN 3D NIKOS CADon 77-49-6263EO MAMM SCREEN 3D NIKOS CADPatient: RADHA GUTIÉRREZ Exam Date: 09/22/2022 : 1945 Gender:F [facility]ing : [facility] Admission #: [id number] Family : Order #: [id number] CLICK HERE TO VIEW EXAM RADIOLOGY REPORT [...] None Family Cancers None LOCATION: [facility] BREAST COMPOSITION: Almost entirely fatty. [...] by: Oswaldo Valenzuela M.D. on 09/22/2022 at 17:02[facility] Medical CenterPROF 14(COMP METB)on 30-94-4385Tcfnctx [Mass/Vol]3.3 g/dLCritically low 3.4-5.0The White Hospitalment on above:Performed By: #### CMP, T7, TSH, LIPID #### [facility] [address] [address] [address] Ravin DiorAlbumin/Globulin [Mass ratio]0.7 {ratio}NormalThe [facility] on above:Performed By: #### CMP, T7, TSH, LIPID #### [facility] [address] [place], [place] [address] Dr. Ravin [place] [Catalytic activity/Vol]207 U/LCritically jayj89-561Xld [facility] on above:Performed By: #### CMP, T7, TSH, LIPID #### [facility] [address] [place], [place] [address] Dr. Ravin Anton [Catalytic activity/Vol]47 U/MQlbgkg28-27Uxl [facility] HospitalComment on above:Performed By: #### CMP, T7, TSH, LIPID #### [facility] [address] [address] [address] Ravin Salason gap [Moles/Vol]11.5 mmol/LNormalThe [facility] Comment on above:Performed By: #### CMP, T7, TSH, LIPID #### [facility] [address] [address] [address] Ravin DiorAST [Catalytic activity/Vol]35 U/UVttscp44-66Ypx [facility] SystemComment on above:Performed By: #### CMP, T7, TSH, LIPID #### [facility] [address] [address] [address] Ravin DiorBilirubin [Mass/Vol]0.6 mg/dLNormal0.2-1.0[facility] Comment on above:Performed By: #### CMP, T7, TSH, LIPID #### [facility] [address] [place] [address] Dr. Ravin DiorCalcium [Mass/Vol]9.2 mg/dLNormal8.5-10.1[facility] Comment on above:Performed By: #### CMP, T7, TSH, LIPID #### [facility] [address] [address] [address] Ravin DiorChloride [Moles/Vol]109 mmol/LCritically ftfb21-375CmwBucyrus Community Hospital on above:Performed By: #### CMP, T7, TSH, LIPID #### [facility] [address] [place] [address] Dr. Ravin DiorCO2 [Moles/Vol]27.7 mmol/BNaeara11.0-32.0[facility] Comment on above:Performed By: #### CMP, T7, TSH, LIPID #### [facility] [address] [place] [address] Dr. Ravin DiorCreatinine [Mass/Vol]0.94 mg/dLNormal0.55-1.02The [facility] SystemComment on above:Performed By: #### CMP, T7, TSH, LIPID #### [facility] [address] [place] [address] [address] Ravin StoneGFR-AF TURKMEN>60Normal>=60The White Hospitalment on above:Performed By: #### CMP, T7, TSH, LIPID #### [facility] [address] [place] [address] [address] Ravin StoneGFR-NON AF NUDHNCER84 mL/min/1.17t2Uxlaltuhwc low>=60The [facility] SystemComment on above:Performed By: #### CMP, T7, TSH, LIPID #### [facility] [address] [address] [address] Ravin DiorGlobulin (S) [Mass/Vol]4.7 g/dLNormalThe [facility] SystemComment on above:Performed By: #### CMP, T7, TSH, LIPID #### [facility] [address] [place] [address] Dr. Ravin DiorGlucose [Mass/Vol]95 mg/aIJqbyep31-548LehMercy Health Perrysburg Hospital Comment on above:Performed By: #### CMP, T7, TSH, LIPID #### [facility] [address] [address] [address] Ravin DiorPotassium [Moles/Vol]4.2 mmol/LNormal3.5-5.1[facility] Comment on above:Performed By: #### CMP, T7, TSH, LIPID #### [facility] [address] [address] [address] Ravin DiorProtein [Mass/Vol]8.0 g/dLNormal6.4-8.2[facility] Comment on above:Performed By: #### CMP, T7, TSH, LIPID #### [facility] [address] [place] [address] [address] Ravin DiorSodium [Moles/Vol]144 mmol/YMicvcm945-521PnyMercy Health Perrysburg Hospital Comment on above:Performed By: #### CMP, T7, TSH, LIPID #### [facility] [address] [address] [address] Ravin DiorUrea nitrogen [Mass/Vol]21.0 mg/dLCritically high7.0-18.0The [facility] SystemComment on above:Performed By: #### CMP, T7, TSH, LIPID #### [facility] [address] [address] [address] Ravin Lopez nitrogen/Creatinine [Mass ratio]22.3 mg/mgNormalThe [facility] SystemComment on above:Performed By: #### CMP, T7, TSH, LIPID #### [facility] [address] [place], [place] [address] Dr. Ravin Prather 31-08-1228GYY1.085 uIU/mLNormal0.358-3.740The [facility] SystemComment on above:Performed By: #### CMP, T7, TSH, LIPID #### [facility] [address] [address] [address] Ravin DiorCT ABD/PELVIS WO CONon 74-74-5060AG ABD/PELVIS WO CON Begin Addendum #1 Addendum [...] was used, including Automated Exposure Control. FINDINGS: Public Relations Player: No pertinent findings, which are not already [...] contains mild stranding. IMPRESSION: 1. No acute intra-abdominal/pelvic findings. 2. Three fat-containing ventral hernias with mild stranding within the sac of the largest most superior hernia.NormalThe [facility] AUTO DIFFon 31-86-1635LAEO #0.0 103/ulNormal0.0-0.1[facility] HospitalComment on above: Performed By: #### CBC ####[facility] [address] [place] [id number].Yilan ChangBasophils/100 WBC (Bld)0.2 %Normal 0.2-2.0The [facility] SystemComment on above:Performed By: #### CBC ####[facility] [address] [place] [id number].Yilan ChangEO # 0.1 103/ulNormal0.0-0.7The [facility] SystemComment on above:Performed By: #### CBC ####[facility] [address]fawijvk[address] [place] [id number]. Yilan ChangEosinophils/100 WBC (Bld)1.4 %Normal0.9-7.0[facility] Comment on above:Performed By: #### CBC ####[facility] Xksktkblik[address] [place], [place] [address]Dr.Novalilliana ChangErythrocyte distribution width (RBC) [Ratio]13.7 %Vxrpeq54.0-15.0The [facility] SystemComment on above: Performed By: #### CBC ####[facility] [address]qbtvsyn[address] [place], [place] [address]Dr.Novalilliana ChangHematocrit (Bld) [Volume fraction]44.4 % Zjdouk99.0-48.0The [facility] HospitalComment on above:Performed By: #### CBC ####[facility] Durekwtawr[address] [place], [place] [address]Dr. Ravin ChangHemoglobin (Bld) [Mass/Vol]14.7 g/aMFuvfqo96.0-16.0The [facility] SystemComment on above:Performed By: #### CBC ####[facility] [address]scxqvxs[address] [place], [place] [address]Dr.Ravin ChangIG #0.05 10e3/ulCritically high0.00-0.03The [facility] SystemComment on above:Performed By: #### CBC ####[facility] Czdqqzvkhr[address] [place], [place] [address]Dr.Ravin ChangIG %0.5 %Normal0.0-0.5The [facility] SystemComment on above: Performed By: #### CBC ####[facility] Mtzfopekfn[address] [place], [place] [address]Dr.Ravin ChangLYMPH #1.7 103/ulNormal1.2-3.8The [facility] SystemComment on above:Performed By: #### CBC ####[facility] Ruiwhxygog[address] [place], [place] [address]Dr.Ravin ChangLymphocytes/100 WBC (Bld)17.1 %Critically low20.5-60.0The [facility] SystemComment on above: Performed By: #### CBC ####[facility] [address]izwdsgrm[address] [place], [place] [address]Dr.Ravin ChangMANUAL DIFF REQNONormalThe [facility] SystemComment on above:Performed By: #### CBC ####[facility] [address]sdfljm[address] [place] [address]Dr.Novalilliana DiorMONTEFIORE [facility] (RBC) [Entitic mass]30.7 ijNtgkdo47.7-34.0The [facility] SystemComment on above: Performed By: #### CBC ####[facility] Outyhttben[address] [place], [place] [address]Dr.Ravin DiorELMIRA PSYCHIATRIC [facility] (RBC) [Mass/Vol]33.1 g/dLNormal 29.9-35.2The [facility] SystemComment on above:Performed By: #### CBC ####[facility] Alqkngihwx[address] [place], [place] [address]Dr. Ravin DiorV (RBC) [Entitic vol]92.7 aLPsagzb80.0-99.0The [facility] Comment on above:Performed By: #### CBC ####[facility] Wfdfuzrmps[address] [place], [place] [address]DrJon DiorMONO #0.6 103/ulNormal0.3-0.8 The [facility] SystemComment on above:Performed By: #### CBC ####[facility] Nnmkqlmnfc[address] [place], [place] [address]DrJon Dior Monocytes/100 WBC (Bld)5.7 %Normal1.7-12.0The [facility] SystemComment on above: Performed By: #### CBC ####[facility] Ikdnoyxwqb[address] [place], [place] [address]DrJon DiorNEUT #7.7 103/ulCritically high1.4-6.5 The [facility] SystemComment on above:Performed By: #### CBC ####[facility] Rzxmadqavj[address] [place], [place] [address]DrJon Dior Neutrophils/100 WBC (Bld)75.1 %Critically high43.0-75.0[facility] Comment on above:Performed By: #### CBC ####[facility] Avdvgncxox8[address] [place], [place] [address]Dr.Yilan ChangPlatelet mean volume (Bld) [Entitic vol]10.4 fLNormal9.5-13.5The [facility] SystemComment on above: Performed By: #### CBC ####[facility] [address]muadl[address] [place] [address]Dr.Ravin DiorPLT294 103/uhByusao410-434Dmz [facility] SystemComment on above:Performed By: #### CBC ####[facility] [address]fwctycyzw[address] [place] [address]Dr.Ravin DiorRBC4.79 106/ul Normal4.20-5.40The [facility] SystemComment on above:Performed By: #### CBC ####[facility] Qzgwkfpfbt[address] [place] [address]DrViky DiorWBC10.2 103/ulNormal4.0-11.0The [facility] SystemComment on above: Performed By: #### CBC ####[facility] [address]un[address] [place] [address]Dr.Yilan Vasquez URINE PROFILEon 00-98-9967Fgrtnsoqu Ql (U)NegativeNormalNEGATIVEThe [facility] SystemComment on above:Performed By: #### DENY LACYRO #### [facility] [address] [place] [address] Dr. Ravin Pate (U)CLEARNormalCLEARThe [facility] SystemComment on above: Performed By: #### DENY LACYRO #### [facility] [address] [place] [address] Dr. Ravin Johansen (U)LT. YELLOWNormalYELLOWThe [facility] SystemComment on above:Performed By: #### DENY LACYRO #### [facility] [address] [place] [address] Dr. Ravin Espinoza micrscopic examination will be performed if indicated. NormalThe [facility] SystemComment on above:Performed By: #### BAMBI UMICRO #### [facility] [address] [place] [address] Dr. Yilan ChangGlucose Ql (U)NegativeNormalNEGATIVEMercy Health Perrysburg HospitalComment on above:Performed By: #### ERUR, UMICRO #### [facility] [address] [place] [address] Dr. Ravin DiorHemoglobin Ql (U)NegativeNormalNEGATIVEMercy Health Perrysburg Hospital Comment on above:Performed By: #### ERUR, UMICRO #### [facility] [address] [place] [address] Dr. Ravin DiorKetones Ql (U)TRACEAbnormalNEGATIVEMercy Health Perrysburg HospitalComment on above:Performed By: #### ERUR, UMICRO #### [facility] [address] [place] [address] Dr. Ravin DiorLEUKOCYTESSMALLAbnormalNEGATIVEMercy Health Perrysburg HospitalComment on above:Performed By: #### ERUR, UMICRO #### [facility] [address] [place] [address] Dr. Ravin DiorNitrite Ql (U)NegativeNormalNEGATIVEMercy Health Perrysburg HospitalComment on above:Performed By: #### ERUR, UMICRO #### [facility] [address] [place] [address] Dr. Ravin DiorpH (U)6.0 [pH]Normal5-9Mer[facility] HospitalComment on above: Performed By: #### ERUNavin, UMICRO #### [facility] [address] [place] [address] Dr. Ravin DiorSPEC GRAVITY1.130Wwcron3.005-<=1.025The [facility] SystemComment on above:Performed By: #### ERUR, UMICRO #### [facility] [address] [place] [address] Dr. Ravin DiorUA PROTEINNegativeNormalNEGATIVE/ TRACEMercy Health Perrysburg Hospital Comment on above:Performed By: #### ERUR, UMICRO #### [facility] [address] [place] [address] Dr. Ravin Waggoner MICRO INDINDICATEDNoalThe Houston HospitalComment on above: Performed By: #### ERUR UMICRO #### [facility] [facility] [address] [address] [address] Ravin Corralbilinogen Qn (U)0.2 {Chandler'U}/dLNormal0.2 - 1.0The White Hospitalment on above:Performed By: #### JAZ LACYICRO #### [facility] [address] [address] [address] Ravin DiorLACTATE/LACTIC ACIDon 02-46-4060Mkxmpxl [Moles/Vol]1.3 mmol/L Normal0.4-1.9The [facility] SystemComment on above:Performed By: #### LACT ####[facility] [address] [address]. Ravin DiorLIPASEon 88-83-4660Txfjyg [Catalytic activity/Vol]63.0 U/LCritically low73.0-393.0The [facility] SystemComment on above:Performed By: #### CMP, LIPA #### [facility] [address] [place] [address] Dr. Ravin DiorPROF 14(COMP METB)on 56-71-0319Pohismt [Mass/Vol]3.4 g/dLNormal 3.4-5.0The [facility] Hospitalment on above:Performed By: #### CMP, LIPA #### [facility] [address] [address] [address] Ravin DiorAlbumin/Globulin [Mass ratio]0.8 {ratio}NormalThe [facility] on above:Performed By: #### CMP, LIPA #### [facility] [address] [address] [address] Ravin DoveP [Catalytic activity/Vol]143 U/LCritically yotw06-776Ons White Hospitalment on above:Performed By: #### CMP, LIPA #### [facility] [address] [address] [address] Ravin Anton [Catalytic activity/Vol]29 U/GBvjevn16-37Ynh [facility] SystemComment on above:Performed By: #### CMP, LIPA #### [facility] [address] [address] [address] Ravin Salason gap [Moles/Vol]7.6 mmol/LNormalThe [facility] SystemComment on above:Performed By: #### CMP, LIPA #### [facility] [address] [place] [address] Dr. Ravin DiorAST [Catalytic activity/Vol]39 U/LCritically qdfu46-91Rtn [facility] SystemComment on above:Performed By: #### CMP, LIPA #### [facility] [address] [place] [address] Dr. Ravin DiorBilirubin [Mass/Vol]0.7 mg/dLNormal0.2-1.0[facility] Comment on above:Performed By: #### CMP, LIPA #### [facility] [address] [place] [address] Dr. Ravin DiorCalcium [Mass/Vol]9.1 mg/dLNormal8.5-10.1The [facility] Comment on above:Performed By: #### CMP, LIPA #### [facility] [address] [place] [address] Dr. Ravin DiorChloride [Moles/Vol]102 mmol/YTempce05-042Jxr [facility] Comment on above:Performed By: #### CMP, LIPA #### [facility] [address] [place] [address] Dr. Ravin DiorCO2 [Moles/Vol]31.1 mmol/HCjmkbp22.0-32.0The [facility] Comment on above:Performed By: #### CMP, LIPA #### [facility] [address] [place] [address] Dr. Ravin DiorCreatinine [Mass/Vol]0.88 mg/dLNormal0.55-1.02The [facility] SystemComment on above:Performed By: #### CMP, LIPA #### [facility] [address] [place] [address] Dr. Yilan ChangEGFR-AF TURKMEN>60Normal>=60The [facility] SystemComment on above:Performed By: #### CMP, LIPA #### [facility] [address] [place] [address] Dr. Ravin StoneGFR-NON AF TURKMEN>60Normal>=60The [facility] SystemComment on above:Performed By: #### CMP, LIPA #### [facility] [address] [place] [address] Dr. Ravin DiorGlobulin (S) [Mass/Vol]4.5 g/dLNormalThe [facility] SystemComment on above:Performed By: #### CMP, LIPA #### [facility] [address] [place] [address] Dr. Ravin DiorGlucose [Mass/Vol]100 mg/tCObugtx55-974VtiMercy Health [facility]sburg Hospital Comment on above:Performed By: #### CMP, LIPA #### [facility] [address] [place] [address] Dr. Ravin DiorPotassium [Moles/Vol]3.7 mmol/LNormal3.5-5.1[facility] Comment on above:Performed By: #### CMP, LIPA #### [facility] [address] [place] [address] Dr. Ravin DiorProtein [Mass/Vol]7.9 g/dLNormal6.4-8.2[facility] Comment on above:Performed By: #### CMP, LIPA #### [facility] [address] [place] [address] Dr. Ravin DiorSodium [Moles/Vol]137 mmol/PMsbikz753-110PnpMercy Health Perrysburg Hospital Comment on above:Performed By: #### CMP, LIPA #### [facility] [address] [place] [address] Dr. Ravin DiorUrea nitrogen [Mass/Vol]12.0 mg/dLNormal7.0-18.0The [facility] SystemComment on above:Performed By: #### CMP, LIPA #### [facility] [address] [address] [address] Ravin Lopez nitrogen/Creatinine [Mass ratio]13.6 mg/mgNoMemorial Health System Selby General HospitalComment on above:Performed By: #### CMP LIPA #### [facility] [address] [place] [address] Dr. Ravin Ortega MICROSCOPIC ONLYon 54-54-9338IWRXCOIIYUWR SEENNormalNONE SEENMercy Health Perrysburg HospitalComment on above:Performed By: #### BAMBI UMICRO #### [facility] [address] [place] [address] Dr. Ravin Kotharictmary identified Cx Nom (U)NOT INDICATEDNoMemorial Health System Selby General HospitalComkalkaska memorial health center on above:Performed By: #### BAMBI UMICRO #### [facility] [address] [place] [address] Dr. Ravin DiorCASTNONTammy SEENNormalNONE SEENMercy Health Perrysburg HospitalComkalkaska memorial health center on above:Performed By: #### BAMBI UMICRO #### [facility] [address] [place] [address] Dr. Ravin Reynoldsystals LM Nom (Urine sed)NONE SEENNormalNONE SEENThe [facility] Health SystemComkalkaska memorial health center on above:Performed By: #### BAMBI UMICRO #### [facility] [address] [place] [address] Dr. Alicia ChangEpithelial cells LM Ql (Urine sed)FEWAbnormalNONE SEEN /RAREThe [facility] Health SystemComkalkaska memorial health center on above:Performed By: #### BAMBI UMICRO #### [facility] [address] [place] [address] Dr. Ravin RagsdaleCOUSNONE SEENNormalNONE SEENMercy Health Perrysburg HospitalComkalkaska memorial health center on above:Performed By: #### BAMBI UMICRO #### [facility] [address] [place] [address] Dr. Ravin Francis SEENAbnormal0-2The [facility] Health SystemComkalkaska memorial health center on above: Performed By: #### BAMBI UMICRO #### [facility] [address] [address] [address] Ravin DiorWBC0-2AbnormalNONE SEENThe [facility] SystemComment on above: Performed By: #### ALDA LACY #### [facility] [id number] Ravin DiorAmbulatory Clinical Summaryon 23-49-3290Taslqdhgbv Clinical Summary{5y-x5-72-k2-h6-6s-3m-2l-2n-19-14-09-53-c8-80-50}CD:[id number] Defiance Regional HospitalGastroenterology Office/Clinic Noteon 07-24-2020 Gastroenterology Office/Clinic NoteChief Complaint 1 year follow up History of [...] acute distress Eyes: extraocular movements intact. Non-Icteric Pulmonary/Respiratory: No cough noted during interview. Normal Respiratory [...] MD In 12 months [address] [place] [address]- Additional Instructions: Problem List/Past Medical History Ongoing [...] 12/16/2018 Exercise - Occasional exercise, 12/16/2018 Other Emzjwdwk-4-4 cups blair;y, 12/16/2018 Substance Abuse - Denies Substance Abuse, 12/16/2018 Tobacco Never (less than 100 in lifetime) Tobacco Use:., 07/24/2020 Never (less than 100 in lifetime) Tobacco Use:. Never Smokeless Tobacco Use:., 02/01/2019[facility] HospitalComment on above:Result Comment: Electronically Signed By: Isabelle Ramirez MD\.br\Date and Time Signed: 07/24/20 13:13 ESTAuth for Release of Medical Recordson 16-72-3743Dffc for Release of Medical [id number]#1.00CD:[address] [facility] HospitalPatient Letter FTon 82-50-7222Bomlqvq Letter [facility] [place] 24, 2020 RADHA G[place] [address] RADHA GUTIÉRREZ 1945 Dear Radha, This is a reminder that you are due for an appointment with Dr. Garland or Dr. Mccauley. Please call [facility] at [phone] to schedule an appointment at your earliest convenience. Thank you, [facility] Vital Signs Date TimeVital SignValuePerforming XnvjziapgQwpwbsyw97-45-7762 13:15-0400Body xlssau218.[address] [facility]05-22-2025 13:15-0400Body mass index (BMI) [Ratio]32.3 kg/d5LjuihstysMercy Health St. Charles Hospital05-22-2025 13:15-0400Body dndvbasqgcy28.5 [degF][facility]05-22-2025 13:15-0400Body fpbohz35.[address] [facility] Hospital05-22-2025 13:15-0400Diastolic blood gvwwykuo75 mm[Hg][facility] 10-19-2024 13:15-0400Heart rate75 /[facility] 10-19-2024 13:15-0400Respiratory rate18 /[facility] 10-19-2024 13:15-3296WqZ7% (BldA) [Mass fraction]97 %[facility]05-22-2025 13:15-0400Systolic blood mnxjxyaq71 mm[Hg][facility]02-27-2025 10:30-0500Diastolic blood pcgfdujh63 mm[Hg][facility]02-27-2025 10:30-0500Systolic blood pvmpilsj11 mm[Hg] [facility]02-27-2025 10:13-0500Body qzmynj609.[address] [facility]02-27-2025 10:Body mass index (BMI) [Ratio]31.3 kg/m2AuenrekcdMercy Health St. Charles Hospital02-27-2025 10:Body reljsx15.[address] [facility] Hospital02-27-2025 10:Heart rate85 /[facility]02-27-2025 10:Respiratory rate16 /[facility]02-27-2025 10:6289XtY1% (BldA) [Mass fraction]98 %[facility] Encounters Encounter DateEncounter TypeCare ProviderFacilityStart: 51-15-4048mxmxxmjbroOLKKMercy Health Perrysburg Hospitaltart: 87-63-8219dmbqhkbmraUJXWFulton County Health Centertart: 47-34-1439whrbmsealzSTNAFulton County Health Centertart: 01-15-2025 End: 73-74-3052qktsxfxxthKdmecjq Vytautas Giedraitis MDFacility:PM Sourav Start: 57-83-3958rxwvhkmtecVNSCA GRUBOhioHealth Nelsonville Health Centertart: 12-11-2024 End: 70-76-2226rfczzwumgdRryyvzc Vytautas Giedraitis MDFacility:PM [place] Start: 26-74-0637whdnnrsvkrGLWPMercy Health Perrysburg Hospitaltart: 67-69-7486kvxxdmrpjtYPJPMercy Health Perrysburg Hospitaltart: 11-20-2024 End: 75-66-1697bleezyunamAwwwaws Vytautas Giedraitis MDFacility:PM [place] Start: 81-13-0724yplmnbhnjqJBOIMercy Health Perrysburg Hospitaltart: 10-19-2024 End: 83-84-8715ytqtowuggsBwbyhrzimBucyrus Community Hospital Work Phone: Start: 10-19-2024 End: 80-28-7383Husbnwx encounter procedureAtrium Health [facility] Nephrology Kevin Work Phone: Start: 55-67-3120Yky-patient / Non-visitAt[facility] Health [facility] Work Phone: Start: 77-62-3487bzxdncpmymYVMNKindred Hospital Limatart: 08-18-2024 End: 71-89-0705mldgkvkqdwRICL SNIDERUniversity Hospitals Lake West Medical Centertart: 34-84-2421Gvh-patient / Non-visitAtrium Health [facility] Work Phone: Start: 54-91-0105fbfzoxiivcSNWTKindred Hospital Limatart: 08-14-2024 End: 04-53-7769rnpyhtnkjpJIUJMercy Memorial Hospitaltart: 60-35-5834txayndyxoiRULGKindred Hospital Limatart: 07-27-2024 End: 42-25-5308aodpopxxdeHvwdmdufyWhite Hospital Work Phone: Start: 07-27-2024 End: 81-54-7555Urbhlbm encounter procedureAtrium Health [facility] Nephrology Kevin Work Phone: Start: 60-13-8359aroxrmzvarZULK [facility] Hospitaltart: 04-47-2325clorlmdujjNIONMercy Memorial Hospitaltart: 33-07-7995Bdeefmjeb for preprocedural cardiovascular examinationKindred Hospital Limatart: 05-22-2024 ambulatoryPAUL [facility] Hospitaltart: 05-18-2024 ambulatoryALUL [facility] Hospitaltart: 05-16-2024 ambulatoryALUL [facility] Hospitaltart: 05-15-2024 ambulatoryPAUL [facility] Hospitaltart: 05-04-2024 ambulatoryPAUL [facility] Hospitaltart: 04-20-2024 ambulatoryKindred Hospital Limatart: 03-27-2024 ambulatoryKindred Hospital Limatart: 03-21-2024 End: 19-41-8476riqizpfhvjRLKRKindred Hospital Limatart: 01-17-2024 End: 59-85-6374pbzkrkjxkrPWERN CARROLLNot AvailableStart: 01-11-2024 End: 91-67-2586calokpjorwLTIZGCVXFOW HASSETTNot AvailableStart: 12-28-2023 End: 01-15-8238Mqonzlnyo encounterSusabryce SpearsAdams County Hospitalca Physicians Cardiology Start: 12-20-2023 End: 70-43-5110bvuoaazyunYRIBJPSHNHY HASSETTNot AvailableStart: 12-06-2023 End: 91-38-3023LdfcjwUqqv [facility] Physicians CardiologyComment on above:Med RefillStart: 11-11-2023 End: 51-27-2388imjogniuvvDCBNXD BENEDICTRoxane AvailableStart: 09-10-2023 End: 47-34-7038KpwrkbSzwiqzxsAna Erwin APRN-EMERGENCY RESPONSE OFFICER Work Phone: [facility] CardiologyComment on above:Med RefillStart: 10-93-6462AqgvtiRklgucSolis Kowalski MD Work Phone: [facility] CardiologyComment on above:Med RefillStart: 08-60-9393BqhytmVnnhprnpAnamika Erwin APRN-EMERGENCY RESPONSE OFFICER Work Phone: Pro[facility]ca Physicians CardiologyComment on above:Med RefillStart: 09-22-2022 End: 84-31-7570sxhmkfdsjoNKZQHG ROBINMERFacility:L9Tzdhq: 07-23-2022 End: 21-48-2212yztekhofotSJOUBI CRAMERFacility:V4Frqyl: 05-17-2022 End: 77-30-5745zitgwenmulBUEBBE CRAMERFacility:G4Xpcsk: 03-26-2022 End: 16-06-3515hsuowpjhomJA JAYLON ORNELAS .Facility:S0Zbfqi: 12-24-2021 End: 89-24-3614soabmazjjvZP JAYLON ORNELAS .Facility:B5Hsbgo: 11-04-2021 End: 16-39-3797ibaifbxeamXJ JAYLON ORNELAS .Facility:H1 Plan of Treatment DateCare ActivityDetailAuthorStart: 62-66-3108Lzpvilfdk vaccinationInfluenza VaccineMiami Valley Hospital SystemStart: 48-47-3780Iutjt BMI ScreeningAdult BMI ScreeningMiami Valley Hospital SystemStart: 40-24-4240Bvfuajr ScreeningTobacco ScreeningMiami Valley Hospital SystemStart: 40-46-0954ATZJE-19 Vaccine ()COVID-19 Vaccine ()[facility] SystemStart: 00-87-6248Wajxwkoou vaccinationInfluenza VaccineMiami Valley Hospital SystemStart: 98-69-6259pfmelsvuynOuromsrucqDplxzijn:P3Vtzoi: 25-59-6727Rymg Risk Screening Fall Risk ScreeningMiami Valley Hospital SystemStart: 41-51-9857Sxjqqwcdpdyaxu of varicella zoster vaccineZoster (Shingles) Vaccine (1 of 2)[facility] SystemStart: 90-73-4452IGsH,Tdap and Td Vaccines (1 - Tdap)DTaP,Tdap and Td Vaccines (1 - Tdap)[facility] SystemStart: 57-84-5059Yuvfo BMI Follow Up PlanAdult BMI Follow Up PlanMiami Valley Hospital SystemStart: 46-47-1720Hlsndvxuic ScreeningDepression ScreeningMiami Valley Hospital SystemStart: 02-22-1946Medicare Annual Wellness VisitMedicare Annual Wellness VisitMiami Valley Hospital System End: 37-52-7274Cymds metabolic 2000 panel - Serum or PlasmaBasic Metabolic Panel Lab Routine Essential hypertension 1 Occurrences starting 06/08/2023 until 01/2025[facility] Work Phone: Comment on above:1 Occurrences starting 06/08/2023 until 06/08/2024Renal function 2000 panel - Serum or PlasmaMercy Health St. Charles HospitalRenal function 2000 panel - Serum or PlasmaMercy Health St. Charles HospitalUS Kidney - bilateralVeterans Affairs [facility] Immunizations Immunization DateImmunizationNotesCare LjqfpuksEgirxyqo67-59-6473vgxucpwms virus vaccine, unspecified formulationMac HIGUERA Work Phone: [facility] HospitalCOADE [facility] Payers DatePayer CategoryPayerPolicy [id number] Health [id number] MedicareHUMANA MEDICARE HUMANA MEDICARE - [place] [id number] 2013-Present [phone] [address] [address] [place] [address] [id number] [id number] 1946 [id number] 2.16.840.1.322766.3.57[id number] 2.16.840.1.544962.3.57[id number] 2.16.840.1.428168.3.579.[id number] 2.16.840.1.151617.3.57[id number] 2.16.840.1.660707.3.579.2.27659-33-7012Dzpqjhn6064231 2.16.840.1.705061.3.579.2.75291-49-5297Rwitikf1461773 2.16.840.1.998515.3.579.2.65514-66-9953Wvyfjtb1528311 2.16.840.1.815755.3.579.2.411349-25-2561Nyscmgl2330146 2.16.840.1.189421.3.579.[id number] 2.16.840.1.990336.3.579.2.[id number] 2..840.1.098553.3.57[id number] 2.16.840.1.183110.3.579.2.[id number] 2..0.1.735781.3.579.[id number] 2.16.840.1.709980.3.5[id number] Social History DateTypeDetailFacilityStart: 05-26-2022 End: 91-42-4950Svbbxfe smoking status NHISNever smoked tobaccoMiami Valley Hospital SystemStart: 14-41-8308Oxgtfrm use and exposureSmokeless tobacco non-user [facility] SystemStart: 70-02-8360Dmvcyhj intakeCurrent non-drinker of alcohol (finding)[facility] SystemStart: 07-04-2020 End: 24-63-7133Kgmgcgx of Social functionMiami Valley Hospital SystemStart: 07-04-2020 End: 52-67-4094Txmappf use panelProDayton Va Medical Center SystemHousing Instability UnknownProDayton Va Medical Center SystemStart: 69-97-2372Hdl Assigned At BirthNot on file [facility] SystemStart: 07-27-2024 End: 25-86-8795HslKtkbqp (finding)[facility], Beachwoodtart: 15-01-8006Koa Assigned At BirthFeSelect Medical Specialty [facility] Medical Equipment Procedure CodeEquipment CodeEquipment Original TextEquipment IdentifierDatesMesh [id number] 3d Rect Plstr Clgn Symbotex 2 Sd Comp Mfl Babsr Rpl [id number] - Sna - [id number]: 85-61-4717Mdy Clsr 30fr Watchman 30mm - [id number]: 10-28-2018 Clinical Notes 12-24-2021 to 08-18-2024 Note Date & DzusKvveHbwdanih65-12-7370 NoteSUBJECTIVE Reason for Visit: Radha Gutiérrez is a 79 y.o. year old female patient being seen for follow-up visit. HPI: Radha Gutiérrez is a 79 y.o. year old female with past medical history of persistent A-fib, CHF, hypertension, Watchman device successfully placed by Dr. Hines 2018, implantation of Biventricular ICD (Thor MerchMe) 07/05/2023, status post AV node ablation 11/01/[address] Madden. 08/18/2024 office visit: The patient was seen and evaluated in the office today. Overall, she reports feeling well. Abnormal kidney function was incidentally noted on presurgical labs for a planned back surgery, including a potassium of 5.8 and creatinine of 1.62. She has since established care with a air defense specialist, whom she saw for the first [...] mg, oral, Nightly sp (more content not included)...[facility]10-22-2024 NoteUT Electrophysiology Consult Note Reason for visit: Afib [...] GI bleed. [facility]. She was initially seen by [...] on file Intimate Partner Violence: Unknown (07/23/2023) [place] Safety & Environment Fear of Current or [...] mg tablet Ta (more content not included)... [facility]07-30-2024 Miscellaneous Notes* Telephone Encounter - Vera Spears - 12/28/2023 9:01 AM EDT Rec'd letter from patient stating that she no longer sees [facility], uses a doctor in [place]. documented in this encounterA[facility]07-30-2024 Telephone encounter Note* Telephone Encounter - Vera Spears - 12/28/2023 9:01 AM EDT Rec'd letter from patient stating that she no longer sees [facility], uses a doctor in [place]. [facility]07-08-2024 Miscellaneous Notes* Telephone Encounter - Sonia Tenorio RN - 12/06/2023 10:37 AM EDT Last OV 06/15/22.slm * Telephone Encounter - Vera Spears - 12/06/2023 10:37 AM EDT T/C to pt to sched [facility] f/u appt. No answer and mailbox is full. documented in this encounterAdena Health System07-08-2024 Telephone encounter Note* Telephone Encounter - Sonia Tenorio RN - 12/06/2023 10:37 AM EDT Last OV 06/15/22.slm [facility]07-08-2024 Telephone encounter Note* Telephone Encounter - Vera Spears - 12/06/2023 10:37 AM EDT T/C to pt to sched [facility] f/u appt. No answer and mailbox is full. [facility]04-12-2024 Miscellaneous Notes* Telephone Encounter - Yvette Oneill RN - 09/10/2023 12:49 AM EDT Please sign and route if you agree. Thank you HODAN 06/22/22 Pt needs annual appt schedule please, thank you. Letter mailed. * Telephone Encounter - Vera Spears - 09/10/2023 12:49 AM EDT LMOM for the patient to call and schedule their next appointment with [facility]. documented in this encounterProMedica Health Qclpgs27-00-7760 Telephone encounter Note* Telephone Encounter - Yvette Oneill RN - 09/10/2023 12:49 AM EDT Please sign and route if you agree. Thank you HODAN 06/22/22 Pt needs annual appt schedule please, thank you. Letter mailed. [facility]04-12-2024 Telephone encounter Note* Telephone Encounter - Vera Spears - 09/10/2023 12:49 AM EDT LMOM for the patient to call and schedule their next appointment with [facility]. [facility]01-12-2024 Miscellaneous Notes* Telephone Encounter - Lisa Meraz RN - 06/11/2023 9:24 AM EST Last OV 06/15/22, sent to [facility] bowling or skating front desk clerk for yearly visit to be scheduled. CMP 06/22/22. BMP ordered from refill encounter 06/08/23. Letter has been mailed, but will attempt to send letter via MC as last login was 05/07/23. documented in this encounterAdena Health System01-12-2024 Telephone encounter Note* Telephone Encounter - Lisa Meraz RN - 06/11/2023 9:24 AM EST Last OV 06/15/22, sent to [facility] bowling or skating front desk clerk for yearly visit to be scheduled. CMP 06/22/22. BMP ordered from refill encounter 06/08/23. Letter has been mailed, but will attempt to send letter via [facility] as last login was 05/07/23. [facility]02-23-2023 NotePAIN MANAGEMENT CONSULTATION CONSULTATION DATE: 07/23/2022 TO: Larisa Staley CHIEF [...] in three months' time or sooner if needed.The [facility] SystemVohvffjy59-02-9449 NoteCONSULTATION CONSULTATION DATE: 03/26/2022 This is a pleasant [...] The patient agrees with the plan of care.The [facility] SystemOptazyfe06-34-0673 NoteCONSULTATION PROCEDURE DATE: 12/24/2021 PREOPERATIVE DIAGNOSIS: Right gluteal [...] patient tolerated the procedure well with no complications.The [facility] SystemTzuhiysq93-15-3189 NoteCONSULTATION CONSULTATION DATE: 12/24/2021 HISTORY OF PRESENT ILLNESS: [...] clinic in three months' time, unless otherwise indicated.[facility] SystemEvaluation note* Diagnosis Essential hypertension- Primary Unspecified essential hypertension documented in this encounter [facility] SystemEvaluation note* Diagnosis Chronic systolic CHF (congestive heart failure) ([facility]) documented in this encounter [facility] SystemEvaluation note* Diagnosis Onset Date Resolution Status Admit Date Atrial fibrillation acuteFebruary 2024 10:10amChronic systolic (congestive) heart failureacute February 2024 10:10amCKD (chronic kidney disease) stage 3, GFR 30-59 ml/minacuteFebruary 2024 10:10amHyperlipidemiaacuteFebruary 2024 10:10amHypertensive chronic kidney disease with stage 1 through stage 4 chronic kiacuteFebruary 2024 10:10amIron deficiencyacuteFebruary 2024 10:10am [facility] Work Phone: Evaluation note* Diagnosis Onset Date Resolution Status Admit Date Atrial fibrillation acuteMay 2024 12:46pmChronic systolic (congestive) heart failureacuteMay 2024 12:46pmCKD (chronic kidney disease) stage 3, GFR 30-59 ml/minacuteMay 2024 12:46pmHyperlipidemiaacuteMay 2024 12:46pmHypertensive chronic kidney disease with stage 1 through stage 4 chronic kiacuteMay 2024 12:46pmIron deficiencyacuteMay 2024 12:46pm [facility] Work Phone: InstructionsNot on filedocumented in [...] section and content) DATE CREATED AUTHOR 07/25/2020 [facility] DATE CREATED AUTHOR AUTHOR'S ORGANIZ ATION 10/12/2022 [facility] DATE CREATED AUTHOR AUTHOR'S ORGANIZ ATION 01/17/2024 [facility] DATE CREATED AUTHOR AUTHOR'S ORGANIZ ATION 01/20/2025 [facility] DATE CREATED AUTHOR AUTHOR'S ORGANIZ ATION 03/20/2025 [facility] Reason for Visit (unrecogniz ed section and content) ReasonCommentsMed RefillReasonOnset DateCommentsMed Kozwhj8712/06/2023 Care Teams (unrecognized sec tion and content) Team Status: Active Member Role Status Dates WANDA Rich Primary Care Provider Active Team Status: Active Member Role Status Dates WANDA Rich Primary Care Provider Active Start: August 18, 2024 Juliana Landeros MDAttyolande ProviderActiveStart: August 18, 2024 Team Status: Active Member Role Status Dates Heaven Staley NP-C Primary Care Provider Active Start: October 09, 2024 Mayito Lubin ProviderActiveStart: October 09, 2024 Team Status: Inactive Member Role Status Dates Heaven Staley NP-C Primary Care Provider Active Start: October 19, 2024 End: October 19Mayito Cullen ProviderActiveStart: October 19, 2024 End: October 19, 2024Team MemberRelationshipSpecialtyStart DateEnd Date Heaven Staley APRN-EMERGENCY RESPONSE OFFICER [address] [facility], [place] [address] PCP - [facility] Medicine10/30/21Team MemberRelationshipSpecialtyStart DateEnd Date Heaven Staley REPAIR MECHANIC-EMERGENCY RESPONSE OFFICER [address] [facility], [facility] [address] PCP - [facility] Medicine10/30/21Team MemberRelationshipSpecialtyStart DateEnd Date Heaven Staley REPAIR MECHANIC-EMERGENCY RESPONSE OFFICER [address] [facility], [facility] [address] PCP - [facility] Medicine10/30/21Team MemberRelationshipSpecialtyStart DateEnd Date Heaven Staley REPAIR MECHANIC-EMERGENCY RESPONSE OFFICER [address] [facility], [place] [address] PCP - [facility] Medicine10/30/21 Team Status: Inactive Member Role Status Dates Juliana Landeros MD Attending Provider Active Start : July 27, 2024 End: July 27, 2024Heaven Staley NP-CPrimary Care Provider, Referring ProviderActiveStart: July 27, 2024 End: July 27, 2024 [...] BE BASED ON THE PRIMARY CLINICAL RECORDS. [facility]. provides no warranty or guarantee of the accuracy or completeness of information in this document.
--- OUTSIDE RECORDS SUMMARY | 2025-03-30 07:42 | XMS_ITS | Encounter Summary ---
Author Organization [facility] Address [address] [place] [address] Care Team Providers Care Floor Trader Name Role Phone Heaven Calderon VICKIE Primary Care Provider [phone] Encounter Details DateTypeDepartmentCare Team (Latest Contact Info)Kuzmyqjgoea93/15/2025Orders Only [facility] [address] [place] [address] Pablo Padilla MD [address] [place] [address] Social History Tobacco UseTypesPacks/DayYears UsedDateSmoking Tobacco: NeverSmokeless Tobacco: NeverAlcohol UseStandard Drinks/WeekCommentsNever0 (1 standard drink = 0.6 oz pure alcohol)MI Safety & EnvironmentAnswerDate RecordedFear of Current or Ex-PartnerNot on file07/23/2023Emotionally AbusedNot on file07/23/2023hysically AbusedNot on file07/23/2023Sexually AbusedNot on file07/23/2023hysically or Sexually AbusedNot on file07/23/2023CommentsNoSex and Gender Information ValueDate RecordedSex Assigned at EhqfcHciqta65/03/2024 6:52 AM EDTLegal Sex Zsaowu0210/07/2022 11:59 AM EDTGender OnbgplnzUqfcua51/03/2024 6:52 AM EDTSexual OrientationHeterosexual or Rlnhgjfz20/03/2024 6:52 AM EDTdocumented as of this encounter Plan of Treatment DateTypeDepartmentCare Team (Latest Contact Info)Ocjgwbcposd99/04/2025 1:00 PM ESTAncillary Procedure [facility] [address] [place] [address] 04/03/2025 1:15 PM ESTOffice Visit [facility] [address] [place] [facility] [address] Robert Madden MD [address] [place] [address] documented as of this encounter Procedures Procedure NamePriorityDate/TimeAssociated DiagnosisCommentsCARDIAC DEVICE CHECK - REMOTE - DNYOvpwwkh93/15/2025 12:00 AM EDTdocumented in this encounter Results * Cardiac device check - Remote ICD (03/14/2025 12:00 AM EDT)Anatomical Region LateralityModalityOtherSpecimen (Source)Anatomical Location / Laterality Collection Method / VolumeCollection TimeReceived Time03/14/2025 Narrative Authorizing ProviderResult TypeResult StatusAbhishek Randy MDC IMPLANTABLE CARDIAC DEVICE PROCEDURESFinal Result documented in this encounter Visit Diagnoses Not on filedocumented in this encounter Care Teams Team MemberRelationshipSpecialtyStart DateEnd Date Heaven Calderon CNP [facility] [facility], [place] [address] PCP - GeneralFamily Vvevqnrl27/19/23documented as of this encounter
--- OUTSIDE RECORDS SUMMARY | 2025-03-30 07:42 | XMS_ITS | Patient Health Record ---
Author Organization [facility] Address [address] [place] [address] Care Team Providers Care Sql Report Analyst Name Role Phone Heaven Calderon Primary Care Provider Unavailemre Rascon ClairRaqueljarrodbryce Unavailable [phone] KURTIS ESPOSITO CNP Unavailable Unavailable xxRadha Ramirez Unavailable Allergies Allergen (clinical drug ingredient) Drug/Non Drug Allergy documented on EMR Reaction Allergy Type Onset Date Status codeine codeine Unknown Drug Allergy Active Reason For Referral No Information Medications Medication SIG (Take, Route, Frequency, Duration) Notes Start Date End Date Status spironolactone UnknownTrazodoneUnknownWater PillUnknownCarafateUnknownMirapex ERUnknownPercocet UnknownlosartanUnknownmetoprololUnknownProtonixUnknown Social History Tobacco Use: Social History Observation Description Date Details (start date - stop date) Never Smoker NA - NA AUDIT-C (Standard) Question Answer Notes Did you have a drink containing alcohol in the p ast year? No Egfdfg9UjbrsofmlrwjyuWomoifccXpvfxhb Control (Standard) Question Answer Notes Tobacco use: Nonsmoker Problems Problem Type SNOMED Code ICD Code Onset Dates Problem Status W/U Status Risk Notes Problem Lumbar radiculopathy (891581908) Lumbar r adiculopathy (M54.16) [id number] status (Z98.1)ActiveconfirmedProblem Degeneration of lumbosacral intervertebral disc (86311175)Other intervertebral disc degeneration, lumbosacral region (M51.37)ActiveconfirmedProblemAcquired spondylolisthesis (474765665)Spondylolisthesis of lumbar region (M43.16)Active [id number] (degenerative disc disease), lumbar (M51.36)Active confirmedProblemSpinal stenosis of lumbar region (67217901)Lumbosacral spinal stenosis (M48.07)ActiveconfirmedProblemNeurogenic claudication (773611525)Lumbar stenosis with neurogenic claudication (M48.062)[id number] Encounter for other orthopedic aftercare (Z47.89)Activeconfirmed Encounters Encounter Location Date Provider Diagnosis [facility] [address] [facility] [place] [address] 04/14/2024 [facility] Encounter for other orthopedic aftercare Z47.89 [facility] [address] [facility] [place] [address] 06/02/2024 [facility] Encounter for other orthopedic aftercare Z47.89 and Arthrodesis status Z98.1 [facility] [address] [facility] [place] [address] 09/01/2024 [facility] Encounter for other orthopedic aftercare Z47.89 and Arthrodesis status Z98.1 [facility] [address] [place] [address] 12/22/2024 [facility] Aftercare following surgery of the musculoskeletal system Z47.89 [facility] [place] [address] [place] [address] 04/03/2024 [facility] An[facility] Aftercare following surgery of the musculoskeletal system Z47.89 Assessments Encounter Date Diagnosis (ICD Code) Assessment Notes Treatment Notes Treatment Clinical Notes Section Notes 04/03/2024 Aftercare following surgery of the musculoskeletal system (ICD-10 - Z47.89) 04/14/2024Encounter for other orthopedic aftercare (ICD-10 - Z47.89)1. 6 weeks s/p hardware removal L3-4, L4-S1 decompression/fusion extension to L301/07/2024 Arthrodesis status (ICD-10 - Z98.1)1. 3 months s/p HWR L3-4, L3-5 decompression/aotwnd89/03/2025Encounter for other orthopedic aftercare (ICD-10 - Z47.89)1. 3 months s/p HWR L3-4, L3-5 decompression/afhggy0109/01/2024rthrodesis status (ICD-10 - Z98.1)1. 3 months s/p L3-4 hardware removal, L3-S1 decompression with extension fusion to S1009/01/2024Encounter for other orthopedic aftercare (ICD-10 - Z47.89)1. 3 months s/p L3-4 hardware removal, L3- S1 decompression with extension fusion to S1012/22/2024ftercare following surgery of the musculoskeletal system (ICD-10 - Z47.89)04/14/2024Other Patient is doing well postoperatively and is working with physical therapy. She is continuing to work in her [employer]. She can discontinue the LSO brace and gradually return to full activity. Wewill see her back in 6 weeks for [...] 6 weeks s/p hardware removal L3-4, L4-S1 decompression/fusion extension to L3 06/02/2024Other Plan established by Dr. Gibbs. Patient evaluated [...] 1. 3 months s/p HWR L3-4, L3-5 decompression/gqqpwk6209/01/2024Other Plan established by Dr. Gibbs. Patient evaluated [...] removal, L3-S1 decompression with extension fusion to S1012/22/2024Trey Garcia, a female patient, presents for a 6-month follow-up after lumbar spine surgery involving L4 to S1 decompression and fusion. Status post lumbar spine surgery Assessment: Patient is 6 months post-operative from L4 to S1 decompression and fusion. X-rays takentoday show good overall alignment and hardware composition without complications. There is evidenceof hyperextension at the level above at L2-3. [...] Date Lumbar spine, 4v flex ext - 06351 2023 Lumbar spine, 4v flex ext - 12413 2024 Lumbar spine, 4v flex ext - 85763 2024 Lumbar spine 2v ap and lat - 13635 04/14 Lumbar spine 2v ap and lat - 74061 06/02 Surgery Scheduling 02/10/2024 DME - Lumbar Support, Surgical OTS 02/17 SFS - Lumbar Spine PT Order, Isometrics & Strenghening w/Modalities as needed, 2-3 times per week for 6 weeks 04/03/2024 Type and Cross Blood 2 units 02/18/2024 Future Test Test Name Order Date Chest 2 views - 80750 02/10/2024 CBC 02/10/2024 PT/PTT 02/10/2024 BMP 02/10/2024 MRSA (Bilateral Nares) PCR 02/10/2024 EKG 02/10/2024 Next Appt Details Provider Name:James Landeros air, 06/21/2025 10:20:00 AM, [address] [facility], [place], [address], Insurance Providers Payer Name Payer Address Payer Phone Subscriber Number Group Number Insured Name Patient Relationship to Insured Coverage Start Date Coverage End Date Medicare [employer] [address] [address] [place] [address] [id number] Mauricio GUTIÉRREZ - patient is the [id number] 2024 Medical (General) History Medical History History ICD Code High Blood Pressure Abnormal Heart RhythmStomach ulcersGastric RefluxIrritable bowel syndromeKidney stonesPajuan carlos or AICDSurgical History Surgery Date(Month/Year) L3-S1 laminectomy, PSF 01/2024 Pacemaker Lumbar surgeryHand [id number]
--- OUTSIDE RECORDS SUMMARY | 2025-03-30 07:43 | XMS_ITS | Patient Health Record ---
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 Name Role Phone Heaven Staley Primary Care Provider AmanzenonAll [phone] Allergies Allergen (clinical drug ingredient) Drug/Non Drug Allergy documented on EMR Reaction Allergy Type Onset Date Status pregabalin Lyrica Unknown Drug Allergy ActivecodeineCodeineUnknownDrug AllergyActivelisinoprilLisinoprilUnknownDrug AllergyActive Results Component Value Reference Range Notes IRON AND TIBC Reviewed date:08/21/2024 01:51:08 PM Interpretation: Performing Lab: Notes/Report: [facility] , Iron 71.0 50.0-170.0 ug/dL Total Iron Binding Nojkmues308.0250.0-450.0 ug/dLPercent Iron Krorzjhjrt85.7 Performing Lab:see note - [facility] LBMAGNESIUM Reviewed date:10/09/2024 11:40:30 AM Interpretation: Performing Lab: Notes/Report: [facility] ,Magnesium2.11.8-2.4 mg/dLPerforming Lab:see note - [facility] LB RENAL FUNCTION PANEL Reviewed date:10/09/2024 11:40:30 AM Interpretation: Performing Lab: Notes/Report: [facility] ,Kcioyv887334-824 mmol/LPotassium4.63.5-5.1 mmol/SPgtkjsmt41014-076 mmol/LCarbon Qmqkmmp90.421.0-32.0 mmol/LAnion Gap10.8Lhzgocs3791-122 mg/dLBlood Urea Nitrogen 30.07.0-18.0 mg/dLCreatinine1.330.55-1.02 mg/dLEstimated GFR ( Tmjthhi07 >=60 mL/min/1.73m 2Estimated GFR (Non- Ame38>=60 mL/min/1.73m 2BUN Creatinine Ratio22.6Facjqng7.98.5-10.1 mg/dLPhosphorus3.92.6-4.7 mg/dLAlbumin Level3.23.4-5.0 g/dLPerforming Lab:see note - [facility] LBURIC ACID SERUM Reviewed date:10/09/2024 11:40:30 AM Interpretation: Performing Lab: Notes/Report: [facility] ,Uric Acid6.12.6-6.0 mg/dLPerforming Lab:see [facility] LB URINE T PROTEIN CREAT RATIO Reviewed date:10/09/2024 11:40:30 AM Interpretation: Performing Lab: Notes/Report: [facility] ,Total Protein Urine Ukyumf29.7<=11.9 mg/dLCreatinine Urine Gypxgk82.5320.00- 300.00 mg/dLProtein Creatinine Ratio Urine0.19Performing Lab:[facility] LBPTH, Intact Reviewed date:10/10/2024 01:32:05 PM Interpretation: Performing Lab: Notes/Report: [facility] ,PTH, Mnbcef1389-30 pg/mL Complaint Evaluation Officer: Ra Gonzalez PhD, Phone: [phone] Performed at: CB - [facility] [address] [id number] Performing Lab:see note - [facility] LBXR cervical spine 5V Reviewed date:11/16/2024 10:39:45 AM Interpretation: Performing Lab: Notes/Report: Source Facility: [facility]-[address] [place] [address] [place] [address] XRay Report Signed Patient: SAUL GUTIÉRREZ MR#: [id number] : 1945 Acct:[id number] Age/Sex: 79 / F ADM Date: 11/13/24 Loc: RAD Attending Dr: Kurtis Ramey NP Ordering Physician: Kurtis Ramey NP Date of Service: 11/13/24 Procedure(s): XR cervical spine 5V Accession Number(s): [id number] cc: HEAVEN STALEY ; Kurtis Ramey NP [place] [address] Patient Name: SAUL GUTIÉRREZ MRN: [id number] date: 1945 Sex: F Assigned Patient Location: [facility] Current Patient Location: [facility] Accession/Order Number: [id number] Exam Date: 11/13/2024 10:22 Report Date: 11/13/2024 [...] Davis M.D. 11/13/2024 10:27 AM Dictation Location: [place] [address] Electronically authenticated by: [id number] Y Date: 11/13/2024 10:27 Dictated By: Adelaida Davis M.D. Signed By: 11/13/24 1029 DD/ 1027 TD/TT: Relief Captain:CBC no Diff (Hemogram) Reviewed date:10/09/2024 11:40:30 AM Interpretation: Performing Lab: Notes/Report: [facility] ,White Blood Count10.14.0-11.0 10 3/uLRed Blood Count4.004.20-5.40 10 6/uL Kkwkocgdlm26.112.0-16.0 g/xYYtyvnufnop90.436.0-48.0 %Mean Corpuscular Zclbna78.5 81.0-99.0 fLMean Corpuscular Mauxvizjmb15.826.7-34.0 pgMean Corpuscular HGB Conc 31.429.9-35.2 g/dLRed Cell Distribution Width15.211.0-15.0 %Platelet Nhfnw382 150-450 10 3/uLMean Platelet Mnsqpt81.09.5-13.5 fLPerforming Lab:see noteML - [facility] LBIRON AND TIBC Reviewed date:10/09/2024 11:40:30 AM Interpretation: Performing Lab: Notes/Report: [facility] ,Iron33.050.0-170.0 ug/dLTotal Iron Binding Iveqehwx457.0250.0-450.0 ug/dL Percent Iron Saturation8.8Performing Lab:see noteML - [facility] LBMM tomosynthesis screening BI Reviewed date:09/26/2024 08:49:29 AM Interpretation: Performing Lab: Notes/Report: Source Facility: [facility]-[address] [place] [address] [place] [address] Mammography Report Signed Patient: SAUL GUTIÉRREZ MR#: [id number] : 1945 Acct:[id number] Age/Sex: 79 / F ADM Date: 09/25/24 Loc: RAD Attending Dr: HEAVEN STALEY Ordering Physician: HEAVEN STALEY Results: Date of Service: 09/25/24 Follow Up: Procedure(s): MM tomosynthesis screening BI Accession Number(s): [id number] cc: HEAVEN STALEY Patient Name: SAUL GUTIÉRREZ MR#: [id number] : 1945 Exam Date: 09/25/2024 Ordering Doctor: HEAVEN STALEY LEATHER COVERER RADIOLOGY REPORT PROCEDURE: MM TOMOSYNTHESIS SCREENING BI [...] No Treatments None Family Cancers None LOCATION: [facility] BREAST COMPOSITION: The breasts are almost entirely [...] M.D. Signed By: 09/25/241652 DD/ 51 TD/TT: Relief Captain:LIPID PROFILE Reviewed date:09/11/2024 01:05:42 PM Interpretation: Performing Lab: Notes/Report: [facility] ,Nrltqopdplqdc64<=150 mg/lQMbrpeduncdr432<=200 mg/dLHDL Vzquvvgkftz5455-82 mg/dL <40 mg/dl - HIGH CARDIOVASCULAR RISK > or =60 mg/dl - LOW CARDIOVASCULAR RISK LDL Cholesterol Ulawgvpryl80.8 160-189 mg/dl HIGH 130-159 mg/dl BORDERLINE HIGH <100 mg/dl OPTIMAL >190 mg/dl VERY HIGH 100-129 mg/dl NEAR OR ABOVE OPTIMAL VLDL ULDQMYEIOAE89.2Chol HDL Ratio2.3 4.4 - 7.1 AVERAGE RISK >11.0 HIGH RISK 3.3 - 4.4 LOW RISK 7.1 - 11.0 MODERATE RISK Performing Lab:see noteML - [facility] LBXR lumbar spine min 4V Reviewed date:09/03/2024 09:41:22 PM Interpretation: Performing Lab: Notes/Report: Source Facility: [facility]-[address] [place] [address] The [place] [id number] XRay Report Signed Patient: SAUL GUTIÉRREZ MR#: [id number] : 1945 Acct:[id number] Age/Sex: 79 / F ADM Date: 09/01/24 Loc: EC Attending Dr: Avani Gibbs M.D. Ordering Physician: Avani Gibbs M.D. Date of Service: 09/01/24 Procedure(s): XR lumbar spine min 4V Accession Number(s): [id number] cc: HEAVEN STALEY ; Avani Gibbs M.D. [place] [address] Patient Name: SAUL GUTIÉRREZ MRN: [id number] date: 1945 Sex: F Assigned Patient Location: Current Patient Location: Accession/Order Number: [id number] Exam Date: 09/01/2024 12:21 Report Date: 09/01/2024 [...] Adelaida Davis M.D.09/01/2024 12:24 PM Dictation Location: [place] [address] Electronically authenticated by: [id number] Y Date: 09/01/2024 12:24 Dictated By: Adelaida Davis M.D. Signed By: 09/01/24 1226 DD/ 1224 TD/TT: Relief Captain:PTH, Intact Reviewed date:08/21/2024 01:51:08 PM Interpretation: Performing Lab: Notes/Report: [facility] ,PTH, Eahady82464-69 pg/mL Complaint Evaluation Officer: Ra Gonzalez PhD, Phone: [phone] [address] [place], [place] [id number] Performed at: - [facility] [place] Performing Lab:see noteLC - [facility] LBCBC no Diff (Hemogram) Reviewed date:08/21/2024 01:51:08 PM Interpretation: Performing Lab: Notes/Report: [facility] ,White Blood Count9.14.0-11.0 10 3/uLRed Blood Count3.984.20-5.40 10 6/uL Legseeijrl26.912.0-16.0 g/vOUfuhxcmupf09.136.0-48.0 %Mean Corpuscular Kqglya85.2 81.0-99.0 fLMean Corpuscular Kwogucrqyf91.426.7-34.0 pgMean Corpuscular HGB Conc 31.129.9-35.2 g/dLRed Cell Distribution Width16.111.0-15.0 %Platelet Lesos591 150-450 10 3/uLMean Platelet Mqnnlq19.49.5-13.5 fLPerforming Lab:see noteML - [facility] LBURINE T PROTEIN CREAT RATIO Reviewed date:08/21/2024 01:51:08 PM Interpretation: Performing Lab: Notes/Report: [facility] ,Total Protein Urine Random<6.0<=11.9 mg/dLCreatinine Urine Aolrwb81.4420.00- 300.00 mg/dLPerforming Lab:see noteML - [facility] LBURIC ACID SERUM Reviewed date:08/21/2024 01:51:08 PM Interpretation: Performing Lab: Notes/Report: [facility] ,Uric Acid6.52.6-6.0 mg/dLPerforming Lab:see noteML - [facility] LBUA RANDOM W or MICROSCOPIC Reviewed date:08/21/2024 01:51:08 PM Interpretation: Performing Lab: Notes/Report: [facility] ,Color UrineLT. YELLOWYELLOWClarity UrineCLEARCLEARSpecific Nickerson Urine1.010 1.005-1.025pH Urine5.55.0-9.0Protein UrineNEGATIVENEG/TRACE mg/dLGlucose Urine VT319QXWCVVGG mg/dLBilirubin UrineNEGATIVENEGATIVEKetones UrineNEGATIVENEGATIVE mg/dLBlood UrineNEGATIVENEGATIVENitrite UrineNEGATIVENEGATIVEUrobilinogen Urine 0.20.2-1.0 EU/dLLeukocyte Esterase UrineNEGATIVENEGATIVEWBC UrineNONE SEENNONE SEEN #/HPFRBC Urine0-20-2 #/HPFBacteria UrineTRACENONE SEEN #/HPFMucus UrineNONE SEENNONE SEENSquamous Epithelial Cell UrineFEWNONE/RARE #/LPFCrystals Seen?None SeenNone Seen #/HPFCast Seen?NONE SEENNONE SEEN #/LPFPerforming Lab:see noteML - [facility] LBRENAL FUNCTION PANEL Reviewed date:08/21/2024 01:51:08 PM Interpretation: Performing Lab: Notes/Report: [facility] ,Yhgaji243950-645 mmol/LPotassium4.73.5-5.1 mmol/PXxtbuwag51796-710 mmol/LCarbon Ncrtguq63.521.0-32.0 mmol/LAnion Gap10.8Hjcyezx8851-639 mg/dLBlood Urea Nitrogen 36.07.0-18.0 mg/dLCreatinine1.360.55-1.02 mg/dLEstimated GFR ( Zaxgwaz00 >=60 mL/min/1.73m 2Estimated GFR (Non- Ame38>=60 mL/min/1.73m 2BUN Creatinine Ratio26.6Vehincf0.08.5-10.1 mg/dLPhosphorus3.72.6-4.7 mg/dLAlbumin Level3.43.4-5.0 g/dLPerforming Lab:see noteML - [facility] LB MAGNESIUM Reviewed date:08/21/2024 01:51:08 PM Interpretation: Performing Lab: Notes/Report: [facility] ,Magnesium2.41.8-2.4 mg/dLPerforming Lab:see noteML - [facility] LBXR lumbar spine 2-3V Reviewed date:04/18/2024 04:21:59 PM Interpretation: Performing Lab: Notes/Report: Source Facility: [facility]-[address] [place] [address] [place] [address] XRay Report Signed Patient: SAUL GUTIÉRREZ MR#: [id number] : 1945 Acct:[id number] Age/Sex: 78 / F ADM Date: 04/14/24 Loc: EC Attending Dr: Avani Gibbs M.D. Ordering Physician: Avani Gibbs M.D. Date of Service: 04/14/24 Procedure(s): XR lumbar spine 2-3V Accession Number(s): [id number] cc: HEAVEN STALEY ; Avani Gibbs M.D. [place] [address] Patient Name: SAUL GUTIÉRREZ MRN: [facility]:[id number] date: 1945 Sex: F Assigned Patient Location: Current Patient Location: Accession/Order Number: [id number] Exam Date: 04/14/2024 10:17 Report Date: 04/18/2024 [...] M.D. Signed By: 04/18/24913 DD/ 1 TD/TT: Relief Captain:TOM echo doppler complete Reviewed date:04/05/2024 12:19:04 PM Interpretation: Performing Lab: Notes/Report: Source Facility: [place] [address] Cardiology Report Signed Patient: SAUL GUTIÉRREZ MR#: [id number] : 1945 Acct:[id number] Age/Sex: 78 / F ADM Date: 04/03/24 Loc: CARD Attending Dr: Robert Madden M.D. Ordering Physician: Robert Madden M.D. Date of Service: 04/03/24 Procedure(s): CA echo doppler complete Accession Number(s): [id number] cc: HEAVEN STALEY ; Robert Madden M.D. Patient Name: SAUL GUTIÉRREZ MR#: [id number] : 1945 Exam Date: 04/03/2024 Ordering Doctor: [...] LOU Signed By: 04/04/241839 DD/ 38 TD/TT: Relief Captain:CT cervical spine wo con Reviewed date:12/07/2024 03:54:06 PM Interpretation: Performing Lab: Notes/Report: Source Facility: [place] [address] CT Scan Report Signed Patient: SAUL GUTIÉRREZ MR#: [id number] : 1945 Acct:[id number] Age/Sex: 79 / F ADM Date: 12/07/24 Loc: CT Attending Dr: Kurtis Ramey NP Ordering Physician: Kurtis Ramey NP Date of Service: 12/07/24 Procedure(s): CT cervical spine wo con Accession Number(s): [id number] cc: HEAVEN STALEY [place] [address] Patient Name: SAUL GUTIÉRREZ MRN: [id number] date: 1945 Sex: F Assigned Patient Location: CT Current Patient Location: CT Accession/Order Number: [id number] Exam Date: 12/07/2024 11:04 Report Date: 12/07/2024 11:12 At the request of: KURTIS RAMEY NP Procedure: CT cervical spine wo con CT CERVICAL SPINE WITHOUT CONTRAST WITH 3D RECONSTRUCTIONS: CLINICAL HISTORY: Neck pain radiating to both arms, greater on the right. No injury. COMPARISON: Plain films 11/13/2024 TECHNIQUE: Spiral axial unenhanced images were obtained through the cervical spine. Sagittal, coronal and 3D volume-rendered reconstructions were also reviewed. This CT exam was performed using one or more following dose reduction techniques: Automated exposure control, adjustment of the mA and/or kV according to patient size, or use of iterative reconstruction technique. FINDINGS: There is straightening of the normal cervical lordosis. No acute compression fractures are identified. There is slight anterolisthesis of C3 on C4 and approximately 3 to 4 mm of retrolisthesis of C5 on C6. There is mild disc space narrowing at C3-4 and moderate narrowing from C4-5 through C6-7. There is endplate sclerosis at C5-6. Endplate spurring and mild facet disease are noted. At C3-4, there is broad-based central/right parasagittal disc bulging in addition to the endplate spurring that extends through the left neural foramen. There is mild thecal sac effacement. Mild to moderate right and moderate to severe left foraminal encroachment is noted. At C4-5, mild disco-osteophytic bulging slightly effaces the thecal sac. There is moderate narrowing of both neural foramen. At C5-6, the disco-osteophytic bulging results in mild to moderate thecal sac effacement. There is moderate to severe foraminal encroachment, right side greater than left. At C6-7 mild thecal sac effacement is seen secondary to disco-osteophytic bulging. There is also mild to moderate left and mild right foraminal impingement. The atlantoaxial relationship is maintained. No prevertebral soft tissue swelling is seen. The upper imaged lungs show no contributory findings. CT/CT cervical spine wo con IMPRESSION: LOSS OF NORMAL CERVICAL LORDOSIS. MULTILEVEL DISCOVERTEBRAL DEGENERATIVE CHANGES WITH ASSOCIATED STENOSIS, DESCRIBED. Impression dictated by: Adelaida Davis M.D. 12/07/2024 11:12 AM Dictation Location: [place] [address] Electronically authenticated by: [id number] Y Date: 12/07/2024 11:12 Dictated By: Adelaida Davis M.D. Signed By: 12/07/24 1114 DD/ 1112 TD/TT: Relief Captain:VITAMIN D 25 [place] Reviewed date:10/09/2024 11:40:30 AM Interpretation: Performing Lab: Notes/Report: [facility] ,Vitamin D46.5 20-<30 ng/mL Vit D insufficient <20 ng/mL Vit D deficient 30-100 ng/mL Vit D sufficient >100 ng/mL Potential Toxicity Performing Lab:see noteML - [facility] LBUA RANDOM W or MICROSCOPIC Reviewed date:10/09/2024 11:40:30 AM Interpretation: Performing Lab: Notes/Report: [facility] ,Color UrineYELLOWYELLOWClarity UrineCLEARCLEARSpecific Nickerson Urine1.015 1.005-1.025pH Urine6.05.0-9.0Protein UrineNEGATIVENEG/TRACE mg/dLGlucose Urine LE543ZCLWMJEE mg/dLBilirubin UrineNEGATIVENEGATIVEKetones UrineNEGATIVENEGATIVE mg/dLBlood UrineNEGATIVENEGATIVENitrite UrineNEGATIVENEGATIVEUrobilinogen Urine 0.20.2-1.0 EU/dLLeukocyte Esterase UrineNEGATIVENEGATIVEWBC Urine0-2NONE SEEN #/HPFRBC Urine0-20-2 #/HPFBacteria UrineNONE SEENNONE SEEN #/HPFMucus UrineNONE SEENNONE SEENSquamous Epithelial Cell UrineRARENONE/RARE #/LPFCrystals Seen?None SeenNone Seen #/HPFCast Seen?NONE SEENNONE SEEN #/LPFPerforming Lab:see noteML - [facility] LBFERRITIN Reviewed date:10/09/2024 11:40:30 AM Interpretation: Performing Lab: Notes/Report: [facility] ,Esbsakmy32.08.0-252.0 ng/mLPerforming Lab:see noteML - [facility] LB US renal BI Reviewed date:09/11/2024 01:05:31 PM Interpretation: Performing Lab: Notes/Report: Source Facility: [facility]-[address] [place] [address] [address] Ultrasound Report Signed Patient: SAUL GUTIÉRREZ MR#: [id number] : 1945 Acct:[id number] Age/Sex: 79 / F ADM Date: 09/11/24 Loc: US Attending Dr: TREVOR TIMMONS Ordering Physician: TREVOR TIMMONS Date of Service: 09/11/24 Procedure(s): US renal BI Accession Number(s): [id number] cc: HEAVEN STALEY ; TREVOR TIMMONS [place] [address] Patient Name: SAUL GUTIÉRREZ MRN: [id number] date: 1945 Sex: F Assigned Patient Location: US Current Patient Location: US Accession/Order Number: [id number] Exam Date: 09/11/2024 11:20 Report Date: 09/11/2024 11:30 At the request of: TREVOR TIMMONS Procedure: US renal BI BILATERAL RENAL [...] Adelaida Davis M.D.09/11/2024 11:30 AM Dictation Location: [place] [address] Electronically authenticated by: [id number] Y Date: 09/11/2024 11:30 Dictated By: Adelaida Davis M.D. Signed By: 09/11/24 1132 DD/ 1130 TD/TT: Relief Captain:EDEN [place] Reviewed date:08/21/2024 01:51:08 PM Interpretation: Performing Lab: Notes/Report: [facility] ,Vitamin D45.3 <20 ng/mL Vit D deficient >100 ng/mL Potential Toxicity 30-100 ng/mL Vit D sufficient 20-<30 ng/mL Vit D insufficient Performing Lab:see noteML - [facility] LBFERRITIN Reviewed date:08/21/2024 01:51:08 PM Interpretation: Performing Lab: Notes/Report: [facility] ,Mxmiztdd61.08.0-252.0 ng/mLPerforming Lab:see noteML - [facility] LB XR lumbar spine 2-3V Reviewed date:06/05/2024 08:55:00 AM Interpretation: Performing Lab: Notes/Report: Source Facility: [facility]-[address] [place] [address] XRay Report Signed Patient: SAUL GUTIÉRREZ MR#: [id number] : 1945 Acct:[id number] Age/Sex: 78 / F ADM Date: 06/02/24 Loc: EC Attending Dr: Avani Gibbs M.D. Ordering Physician: Avani Gibbs M.D. Date of Service: 06/02/24 Procedure(s): XR lumbar spine 2-3V Accession Number(s): [id number] cc: HEAVEN STALEY ; Avani Gibbs M.D. [place] [address] Patient Name: SAUL GUTIÉRREZ MRN: [id number] date: 1945 Sex: F Assigned Patient Location: Current Patient Location: Accession/Order Number: [id number] Exam Date: 06/02/2024 10:14 Report Date: 06/05/2024 [...] M.D. Signed By: 06/05/24720 DD/ 7 TD/TT: Relief Captain: Reason For Referral No Information Medications Medication SIG (Take, Route, Frequency, Duration) Notes Start Date End Date Status predniSONE 20 MG 2 tablet Orally Once a day; Dur ation: 5 days 5ActiveMagnesium 400 MGas directed OrallyActiveVitamin D3 25 MCG/SPRAY as directed OrallyActiveB-Complex -as directed OrallyActiveMetoprolol Succinate 50 MG1 capsule Orally Once a day; Duration: 30 day(s)ActiveVoltaren 1 %as directed ExternallyActiveTurmeric -as directedActiveFurosemide 40 MG1 tablet Orally Once a day; Duration: 30 day(s)ActiveSucralfate 1 GMTAKE 1 TABLET BY MOUTH FOUR TIMES A DAY; Duration: 90 daysActivetraZODone HCl 50 MG1 tablet at bedtime as needed Orally Once a day; Duration: 30 daysActiveDiclofenac Sodium 75 MGTAKE 1 TABLET BY MOUTH TWICE A DAY; Duration: 90ActivePrasterone (DHEA) 50 MG as directed OrallyActiveJardiance 10 MG1 tablet Oral Once a day; Duration: 30 daysActiveFerrous Sulfate 325 (65 Fe) MG1 tablet Orally Once a day; Duration: 30 day(s)ActiveSpironolactone 25 MG1 tablet Orally; Duration: 30 day(s)Active Calcium Carbonate -as directedActivePantoprazole Sodium 40 MGTAKE 1 TABLET BY MOUTH EVERY DAY; Duration: 90ActiveCoQ-10 30 MGas directed OrallyActive Pramipexole Dihydrochloride 1 MGTAKE 1 & 1/2 TABLETS BY MOUTH EVERY DAY; Duration: 90ActiveBaclofen 10 MG1 tablet Orally at bedtimeActiveOndansetron HCl 4 MG1 tablet Orally Once a day; Duration: 10 days3ActiveBiotin 18712 MCG1 tablet Orally Once a dayActiveoxyCODONE-Acetaminophen 5-325 MG1 tablet as needed Orally every 6 hrsActiveLosartan Potassium 25 MG1 tablet Orally Once a day; Duration: 30 day(s)Active Immunizations Vaccine Route Administration Date Status Comme nts Flu, Fluad (56239) 65 yrs and older, single-dose syringe (1976-3422) IM Intramuscular 04/10/2024 Administered Pneumococcal (Prevnar 13)Qsdhbzl7605/09/2015dministered Social History Tobacco Use: Social History Observation Description Date Details (start date - stop date) Never Smoker NA - NA Tobacco Use/Smoking Question Answer Notes Patient is a nonsmoker Problems Problem Type SNOMED Code ICD Code Onset Dates Problem Status W/U Status Risk Notes Problem Overweight (681155351) Overweight (E66.3) ActiveconfirmedProblemChronic diastolic heart failure (146255028)Chronic diastolic (congestive) heart failure (I50.32)ActiveconfirmedProblemBackache (021849911)Other dorsalgia (M54.89)ActiveconfirmedProblemAbnormal findings on diagnostic imaging of heart and coronary circulation (183032393)Abnormal findings on diagnostic imaging of heart and coronary circulation (R93.1)Active confirmedProblemCardiac implant (308925279)Presence of other cardiac implants and grafts (Z95.818)ActiveconfirmedProblemAtrial fibrillation (57216733)Atrial fibrillation (I48.91)ActiveconfirmedProblemGastroesophageal reflux disease (769580590)GERD (gastroesophageal reflux disease) (K21.9)ActiveconfirmedProblem Hypertension (87953998)HTN (hypertension) (I10)ActiveconfirmedProblemArthritis (5578758)Arthritis (M19.90)ActiveconfirmedProblemSleep apnea (75688614)Sleep apnea (G47.30)ActiveconfirmedProblemInsomnia (702238050)Insomnia (G47.00)Active confirmedProblemVentral hernia (019686883)Ventral hernia (K43.9)Activeconfirmed ProblemOsteoporosis (60544589)Osteoporosis (M81.0)ActiveconfirmedProblem Paresthesia (49850910)Paresthesia (R20.2)ActiveconfirmedProblemFolliculitis (57701601)Folliculitis (L73.9)ActiveconfirmedProblemSciatica (70519980)Sciatica (M54.30)ActiveconfirmedProblemLeft bundle branch block (92973119)Left bundle branch block (I44.7)ActiveconfirmedProblemRadiculopathy (33617042)Radiculopathy (M54.10)ActiveconfirmedProblemPain in limb (15607421)Leg pain, right (M79.604) ActiveconfirmedProblemSystolic heart failure (009736853)Systolic heart failure (I50.20)ActiveconfirmedProblemRestless legs (22790099)Restless legs syndrome (RLS) (G25.81)ActiveconfirmedProblemAllergic rhinitis (08419714)Allergic rhinitis, unspecified seasonality, unspecified trigger (J30.9)Activeconfirmed ProblemPersistent atrial fibrillation (754414911)Persistent atrial fibrillation (I48.19)ActiveconfirmedProblemChronic kidney disease stage 3 (disorder) (101945503)Stage 3 chronic kidney disease, unspecified whether stage 3a or 3b CKD (N18.30)Activeconfirmed Vital Signs Blood pressure diastolic 76 mm Hg 03/19/2025 Unvvez61 in03/19/2025lood pressure jvywgpqx641 mm Hg03/19/20251754Krijyn870.6 lbs 03/19/2025BMI33.05 kg/m203/19/2025 Encounters Encounter Location Date Provider Diagnosis [facility] [address] [place] [address] 09/06/2024 Heaven Staley [facility] [place] [address] 09/26/2024Heaven [facility] [place] [address]/09/2024[facility] [address] [place] [address]/10/[facility] [place] [address]/12/2024 Heaven Lala (hypertension) I10 ; Senile osteoporosis M81.0 and Screening for breast cancer Z12.[address] [address]/Pamela [facility]awestwood [facility] hospitalPersistent atrial fibrillation I48.19 ; Stage 3 chronic kidney disease, unspecified whether stage 3a or 3b CKD N18.30 ; Chronic diastolic (congestive) heart failure I50.32 and Arthritis M19.[address] [address]/amela Veronicawestwood lodge hospitalEncounter for immunization S23Opizsdi[address] [address]/12/2024Doug Hoy Encounter for Medicare annual wellness exam Z00.00 Assessments Encounter Date Diagnosis (ICD Code) Assessment Notes Treatment Notes Treatment Clinical Notes Section Notes 04/10/2024 Encounter for immunization (ICD- 10 - Z23) 09/05/2024Encounter for Medicare annual wellness exam (ICD-10 - Z00.00) 03/19/2025Persistent atrial fibrillation (ICD-10 - I48.19)fu cardiology 03/19/2025Stage 3 chronic kidney disease, unspecified whether stage 3a or 3b CKD (ICD-10 - N18.30)seeing kidney dr09/05/2024HTN (hypertension) (ICD-10 - I10) 09/05/2024Senile osteoporosis (ICD-10 - M81.0)09/05/2024Screening for breast cancer (ICD-10 - Z12.31)03/19/2025hronic diastolic (congestive) heart failure (ICD-10 - I50.32)fu /20/2025rthritis (ICD-10 - M19.90) Plan Of Treatment Pending Test Test Name Order Date CMP (COMPLETE METABOLIC PANEL) 3 CMP (COMPLETE METABOLIC PANEL) 4 HEMOGLOBIN A1C (GLYCO) 03/19/2025 HEMOGLOBIN A1C (GLYCO) 09/14/2022 HEMOGLOBIN A1C (GLYCO) 09/05/2024 IRON, TOTAL 09/05/2024 IRON, TOTAL 09/14/2022 IRON, TOTAL 03/19/2025 LIPID PANEL (CHOL/TRIG/HDL/LDL) 09/06/19 25 LIPID PANEL (CHOL/TRIG/HDL/LDL) 03/19/20 25 LIPID PANEL (CHOL/TRIG/HDL/LDL) 09/15/19 23 CBC WITH DIFF 09/14/2022 VITAMIN D, 25 LEVEL (TOTAL) 03/19/2025 VITAMIN D, 25 LEVEL (TOTAL) 09/05/2024 Insulin Level 09/05/2024 Insulin Level 03/19/2025 Insulin Level 09/14/2022 STOOL OCCULT BLOOD 09/14/2022 XR DEXA BONE DENSITY 09/05/2024 THYROID PANEL (T4/TSH/FREE T3) THYROID PANEL (T4/TSH/FREE T3) 3 THYROID PANEL (T4/TSH/FREE T3) BI MAMMOGRAM SCREENING TOMOSYNTHESIS NIKOS ATERAL 09/05/2024 CMP (COMP MET HANSON) w/eGFR CKD-EPI 2024 CMP (COMP MET HANSON) w/eGFR CKD-EPI 2024 CBC WITH DIFF 03/19/2025 CBC WITH DIFF 09/05/2024 Insurance Providers Payer Name Payer Address Payer Phone Subscriber Number Group Number Insured Name Patient Relationship to Insured Coverage Start Date Coverage End Date [employer] MEDICARE ADV PLAN [address] [address] [place] [address] [id number] Rasheed Gutiérrez - patient is the insured Medical (General) [...] atrial fibrillation I48.19 Surgical History Surgery Date(Month/Year) L4-S1 decompression and fusion Tonsils/ADnoidsHernia Hjuvxf6611DlgzgptfnjpoHfcg SurgeryBladder SxGastric Bypass Heart Cath01/20Watchman Left Atrial appendage deviceHospitalization History Reason Date(Month/Year) see above
--- OUTSIDE RECORDS SUMMARY | 2025-03-30 07:43 | XMS_ITS | Clinical Summary ---
Author Organization [facility] Healthcare Address [address] [place] [address] Care Team Providers Care Newspaper Peddler Name Role Phone Heaven Calderon MD Unavailable [phone] Allergies Active AllergyReactionsCriticalityNoted OwspPerzgeoyEqqsvjeVfrzhbf30/07/2015 Other reaction(s): Intolerance-unknown Rrxxlenbuu52/22/2015 Other reaction(s): Dry cough QiaacpbnbxEmygg41/03/2024 Medications MedicationSigDispense QuantityRefillsLast FilledStart DateEnd DateStatus pantoprazole (ProtoNix) 40 MG packet Take 40 mg by mouth in the morning.Active losartan (Cozaar) 25 MG tablet Take 25 mg by mouth in the morning.11/24/2023ctive metoprolol succinate XL (Toprol-XL) 50 MG 24 hr tablet Take 50 mg by mouth in the morning.12/06/2023ctive oxyCODONE-acetaminophen (Percocet) 5-325 MG tablet TAKE 1 TABLET BY MOUTH THREE TIMES A DAY NEEDED FOR PAINActive spironolactone (Aldactone) 25 MG tablet Take 25 mg by mouth Daily06/15/2023ctive pramipexole (Mirapex) 1 MG tablet Take 1.5 mg by mouth at bedtimeActive Social History Tobacco UseTypesPacks/DayYears UsedDateSmoking Tobacco: NeverSmokeless Tobacco: Never Tobacco Cessation:Counseling Given: Not Answered Alcohol UseStandard Drinks/WeekCommentsNot Currently0 (1 standard drink = 0.6 oz pure alcohol)CommentsUnknownSex and Gender InformationValueDate Recorded Sex Assigned at BirthNot on fileLegal NbuQlgrnl09/15/2023 8:28 PM EDTGender IdentityNot on fileSexual OrientationNot on file Last Filed Vital Signs Vital SignReadingTime TakenCommentsBlood Szrnbhky245/7808 8:17 AM EDT Sxsmq8052/19/2024 8:17 AM EDTTemperature--Respiratory Byng7460 8:30 AM EDTOxygen Vynwoabzci30%01/17/2024 8:17 AM EDTInhaled Oxygen Concentration-- Cyomdg80.1 kg (185 lb 6.4 oz)01/17/2024 8:17 AM CMFEszcgn816.1 cm (5' 5 ) 01/17/2024 8:17 AM EDTBody Mass Index30.85001/17/2024 8:17 AM EDT Plan of Treatment Not on file Insurance Care Teams Team MemberRelationshipSpecialtyStart DateEnd Heaven Calderon MD [address] [place] [address] [id number] [facility]11/11/23
--- OUTSIDE RECORDS SUMMARY | 2025-03-30 07:43 | XMS_ITS | Clinical Summary ---
Author Organization [facility] Address [address] [place] [address] Care Team Providers Care Slot Manager Name Role Phone Heaven Calderon VICKIE Primary Care Provider [phone] Allergies Active AllergyReactionsCriticalityNoted QhauVlscbhkoKtqarct43/07/2015 Other reaction(s): Intolerance-unknown Hbnjtapvyl12/22/2015 Other reaction(s): Dry cough CexhmfbhgfEpgdz95/03/2024 Medications MedicationSigDispense QuantityRefillsLast FilledStart DateEnd DateStatus pantoprazole (ProtoNix) 40 mg packet Take 40 mg by mouth in the morning.Active pramipexole (Mirapex) 1 mg tablet Take 1.5 mg by mouth in the morning.09/04/2022ctive oxyCODONE-acetaminophen (Percocet) 5-325 mg tablet Take 1 tablet by mouth if needed in the morning, at noon, and at bedtime for moderate pain (4-7 pain score).11/04/2022ctive sucralfate (Carafate) 1 gram tablet Take 1 g by mouth if needed.04/22/2022ctive traZODone (Desyrel) 50 mg tablet Take 50 mg by mouth at bedtime.09/14/2022ctive diclofenac (Voltaren) 50 mg EC tablet Take 50 mg by mouth if needed.Active coenzyme Q-10 100 mg capsule Take 100 mg by mouth in the morning.Active VITAMIN B COMPLEX ORAL Take 1 capsule by mouth in the morning.Active aspirin 81 mg EC tablet Take 81 mg by mouth 3 (three) times a week.Active baclofen (Lioresal) 10 mg tablet Take 10 mg by mouth in the morning, at noon, and at bedtime.Active pregabalin (Lyrica) 50 mg capsule Take 50 mg by mouth at bedtime.4Active metoprolol succinate XL (Toprol-XL) 50 mg 24 hr tablet Indications:PalpitationsTake 1 tablet (50 mg) by mouth in the morning. 90 tablet 5Active furosemide (Lasix) 40 mg tablet Indications:Benign hypertensive heart disease with heart failure (CMS/HCC)TAKE 1 TABLET (40 MG) BY MOUTH ONCE DAILY DIRECTED. 90 tablet 5Active spironolactone (Aldactone) 25 mg tablet Indications:Benign hypertensive heart disease with heart failure (CMS/HCC)TAKE 1 TABLET (25 MG) BY MOUTH ONCE DAILY DIRECTED. 90 tablet 5Active losartan (Cozaar) 25 mg tablet Indications:Congestive heart failure, unspecified HF chronicity, unspecified heart failure type (CMS/HCC)Take 1 tablet (25 mg) by mouth once daily as directed. 90 tablet 5Active Active Problems ProblemNoted DateDiagnosed DateAbnormal findings on diagnostic imaging of heart and coronary iaxqqzjtuzb71/21/2025quired sdcqwifpenozhiqgc30/21/2025llergic ubtqabbj78/21/1285Qscxmrwdp21/21/2025rthrodesis vxwogz5208/18/2024ataract of both eyes08/18/2024hronic back pain08/18/2024Encounter for other orthopedic tndhoesxc75/21/2394Yoelyiyvpema62/21/2025Gastroesophageal reflux disease 08/18/20241088Lkgrvklfq50/21/8993Zqjqmrlqsxr87/21/2025History of gastric ulcer 08/18/20248487Lahwfmydlsaa58/21/4652Prwhqrdz63/21/2025Lumbar bmfncjwtaigfc89/21/2025 Ksjazgdvzsjn44/21/3107Bsxttyjkwd35/21/2025Presence of other cardiac implants and fpohzk5408/18/2024Sleep apnea08/18/2024Spinal stenosis of lumbar wwcqui9408/18/2024 Stage 3 chronic kidney wbgntdn6608/18/2024Ventral babbft1008/18/2024Pre-operative cardiovascular aavogbbbkot27/16/2024DD (degenerative disc disease), lumbar 02/11/20243568Bouxktbofyu99/03/6474Sobbtgia85/03/2024Hx of atrioventricular node eqhhbkjr14/03/2024 Assessment & Plan (12/01/2023 11:31 AM EDT): Currently pt is doing quite well s/p recent AV node ablation Remains V paced with BI-V AICd Paroxysmal atrial ndkfxlacjwfz14/29/2024resence of biventricular AICD07/14/2023 Assessment & Plan (07/14/2023 10:58 AM EST): Site well approximated and healing well No s/s of infection or hematoma, + ecchymosis noted Dilated skbewfkgbkrgrx71/19/2023bnormal cardiovascular stress test12/18/2022 Cardiomyopathy, ipuuerszisl07/26/2023 Assessment & Plan (02/04/2023 2:57 PM EDT): -NYHA II, NICM, HFrEF EF 35%, pending MUGA scan in 2-3 months to reassess EF for ICD -nonobstruc cors 12/2022 -ct gdmt -she appears euvolemic and compensated Yynvqvg4206/05/2022HF (congestive heart failure)06/05/2022RLS (restless legs syndrome)06/05/2022MI 34.0-34.9,adult02/18/2022enign hypertensive cardiomyopathy with heart rheuiih7202/18/2022 Assessment & Plan (02/04/2023 2:58 PM EDT): -stable, ct medications Class 1 obesity in adult1Presence of Watchman left atrial appendage closure eyzsqw1011/03/2018 Assessment & Plan (12/01/2023 11:30 AM EDT): No anticoagulation currently Assessment & Plan (07/14/2023 10:58 AM EST): stable Assessment & Plan (02/04/2023 3:00 PM EDT): -s/p watchmen 2018, on aspirin Chronic systolic CHF (congestive heart failure)08/25/2018Obstructive sleep apnea syndrome in adult07/02/2016 Assessment & Plan (02/04/2023 2:56 PM EDT): -adv compliance with cpap Persistent atrial jsrdntuoemmu03/25/2016 Overview (12/01/2023): -ZWL0EF1-BZKo at least 5 for age x2, gender, hypertension, CHF, on aspirin s/p watchmen S/P AV node ablation- currently is V paced No concerning symptoms today Assessment & Plan (07/14/2023 10:58 AM EST): -WUA5EO0-HNHd at least 5 for age x2, gender, hypertension, CHF, on aspirin s/p watchmen Continue meds as prescribed Assessment & Plan (02/04/2023 3:00 PM EDT): -DNP7ED7-HSUo at least 5 for age x2, gender, [...] risk of stroke Left bundle branch block (LBBB)07/13/2014 Assessment & Plan (02/04/2023 2:58 PM EDT): -will need BiV ICD if ICD indicated Sinoatrial node jnooifoatsc32/13/2015 Encounters DateTypeDepartmentCare YnbnEguikvgxpow20/15/2025 10:35 AM EDTAncillary Procedure [facility] [address] [place] [phone] Pre-operative cardiovascular examination, ICD in place03/14/2025Orders Only [facility] [address] [place] [phone] Pablo Padilla MD 02/12/2025 12:30 PM EDTAncillary Procedure [facility] [address] [place] [address] Pre-operative cardiovascular examination, ICD in place02/11/2025Orders Only [facility] [address] [place] [address] Robert Madden MD 01/11/2025 10:30 AM EDTAncillary Procedure [facility] [address] [place] [address] Pre-operative cardiovascular examination, ICD in place01/11/2025Orders Only [facility] [address] [place] [address] Robert Madden MD from Last 3 Months Family History Medical HistoryRelationNameCommentsHeart failureFatherRelationNameStatusComments Father Social History Tobacco UseTypesPacks/DayYears UsedDateSmoking Tobacco: NeverSmokeless Tobacco: Never Tobacco Cessation:Counseling Given: Not Answered Alcohol UseStandard Drinks/WeekCommentsNever0 (1 standard drink = 0.6 oz pure alcohol)[place] Safety & EnvironmentAnswerDate RecordedFear of Current or Ex-Partner Not on file07/23/2023Emotionally AbusedNot on file07/23/2023hysically AbusedNot on file07/23/2023Sexually AbusedNot on 07/23/2023hysically or Sexually AbusedNot on file07/23/2023CommentsNoSex and Gender InformationValueDate RecordedSex Assigned at RrgogRdqwup76/03/2024 6:52 AM EDTLegal SexFemale 10/07/2022 11:59 AM EDTGender YdaginsvQygfhk59/03/2024 6:52 AM EDTSexual OrientationHeterosexual or Fuvughyq70/03/2024 6:52 AM EDT Last Filed Vital Signs Vital SignReadingTime TakenCommentsBlood Gswszkvz134/7003 10:53 AM EDT Mncnp136008/18/2024 10:53 AM EDTTemperature--Respiratory Nsrf3754 11:15 AM EDTOxygen Hqjiokgpqt99%08/18/2024 10:53 AM EDTInhaled Oxygen Concentration-- Bkonut33.2 kg (190 lb)08/18/2024 10:53 AM QHRFrgrmm762.1 cm (5' 5 )08/18/2024 10:53 AM EDTBody Mass Index31.62008/18/2024 10:53 AM EDT Plan of Treatment DateTypeDepartmentCare Team (Latest Contact Info)Padcxnekoxc64/04/2025 1:00 PM ESTAncillary Procedure [facility] [address] [facility] [place] [phone] 04/03/2025 1:15 PM ESTOffice Visit [facility] [address] [place] [phone] Robert Madden MD [address] [place] [phone] Health MaintenanceDue DateLast DoneCommentsMedicare Annual Wellness (AWV) 1945Depression Lzsvxsypg94/22/1958Adult Qkymant5607/22/1967Zoster Vaccines (1 of 2)1995Fall Risk Qnjtgfdrl11/22/2011Pneumococcal Vaccine: 50+ Years (2 of 2 - PPSV23, PCV20, or PCV21)COVID-19 Vaccine (3 - season)504/05/2020, 08/01/2020Influenza Vaccine (#1)2025 05/08/2021, 06/10/2020, 04/10/2019, Additional history existsHIB VaccinesAged OutNo longer eligible based on patient's age to complete this topicHPV Vaccines Aged OutNo longer eligible based on patient's age to complete this topicIPV VaccinesAged OutNo longer eligible based on patient's age to complete this topic Meningococcal B VaccineAged OutNo longer eligible based on patient's age to complete this topicMeningococcal VaccineAged OutNo longer eligible based on patient's age to complete this topicRotavirus VaccinesAged OutNo longer eligible based on patient's age to complete this topic Medical Devices ImplantedTypeAreaManufacturerDevice IdentifierShelf Expiration DateModel / Serial / LotVigilant X4 Vice President Of Advertising-D Is-1/Df4/Is4 Implanted:Qty: 1 on 07/05/2023 [facility] ICDSparks [id number] / [id number] / [place] 4-Front S Active Fix Single Coil 59cm Implanted:Qty: 1 on 07/05/2023 by Robert Madden MD at [facility] [id number] / [id number] / Lead,Acuity X4,Straight - [id number] - [id number] Implanted:Qty: 1 on 07/05/2023 by Robert Madden MD at [facility] [id number] / [id number] / Procedures Procedure NamePriorityDate/TimeAssociated DiagnosisCommentsCARDIAC DEVICE CHECK CHECK - JWGQKVDrmkzfa47/20/2025 11:01 AM EDT Pre-operative cardiovascular examination, ICD in place CARDIAC DEVICE CHECK - REMOTE - MUZYtbzvpp95/15/2025 12:00 AM EDTCARDIAC DEVICE CHECK CHECK - ZCUXLURmcuqgy38/15/2025 1:52 PM EDT Pre-operative cardiovascular examination, ICD in place CARDIAC DEVICE CHECK - REMOTE - OWNJwhbsol98/14/2025 12:00 AM EDTCARDIAC DEVICE CHECK CHECK - VNIDHJEtyunwr19/18/2025 3:52 PM EDT Pre-operative cardiovascular examination, ICD in place CARDIAC DEVICE CHECK - REMOTE - XPAOywtrmv67/14/2025 12:00 AM EDTfrom Last 3 Months Results * CARDIAC DEVICE CHECK - REMOTE - ICD (03/19/2025 11:01 AM EDT) Only the most recent of3 resultswithin the time period is included. Specimen (Source)Anatomical Location / LateralityCollection Method / Volume Collection TimeReceived Time Narrative Authorizing ProviderResult TypeResult StatusPacleo Madden MDCV IMPLANTABLE CARDIAC DEVICE PROCEDURESFinal ResultPerforming OrganizationAddressCity/State/ZIP Code Phone Number CPACS * Cardiac device check - Remote ICD (03/14/2025 12:00 AM EDT) Only the most recent of3 resultswithin the time period is included. Anatomical RegionLateralityModalityOtherSpecimen (Source)Anatomical Location / LateralityCollection Method / VolumeCollection TimeReceived Time03/14/2025 Narrative Authorizing ProviderResult TypeResult StatusAbhishechelle Padilla MDCV IMPLANTABLE CARDIAC DEVICE PROCEDURESFinal Result from Last 3 Months Insurance Care Teams Team MemberRelationshipSpecialtyStart DateEnd Heaven Calderon CNP [address] [place] [address], [address] [place], [place] [id number] PCP - GeneralFamily Aqphjfta95/19/23
--- OUTSIDE RECORDS SUMMARY | 2025-03-30 07:43 | XMS_ITS | Clinical Summary ---
Author Organization [employer] tem Address [id number] [address] [place] [address] Care Team Providers Care Senior Clinical Data Manager Name Role Phone Heaven Calderon APRN-COMPUTING CONSULTANT Primary Care Provider Allergies Active AllergyReactionsCriticalityNoted NsxhZwyakslhQerafsu80/07/2015 Other reaction(s): Intolerance-unknown Wkorfftvit01/22/2015 Other reaction(s): Dry cough Medications MedicationSigDispense QuantityRefillsLast FilledStart DateEnd DateStatus ferrous sulfate 325 (65 FE) mg tablet Take 1 tablet (325 mg total) by mouth daily with breakfast.Active pantoprazole (PROTONIX) [address] for susp in packet Take 1 packet (40 mg total) by mouth in the morning.Active pramipexole (MIRAPEX) 1 mg tablet Take 1.5 tablets (1.5 mg total) by mouth in the morning.Active cholecalciferol, vitamin D3, 5,000 units tablet 1 tablet (5,000 Units total) in the morning.Active oxyCODONE-acetaminophen (PERCOCET) 5-325 mg per tablet Take 1 tablet by mouth every 4 (four) hours as needed for pain.Active sucralfate (CARAFATE) 1 gram tablet Take 1 tablet (1 g total) by mouth in the morning and 1 tablet (1 g total) before bedtime.Active traZODone (DESYREL) 50 mg tablet Take 3 tablets (150 mg total) by mouth nightly as needed.Active Lactobacillus acidophilus 10 billion cell capsule Take 1 tablet by mouth daily. Active folic acid/multivit-min/lutein (CENTRUM SILVER ORAL) Take 1 tablet by mouth daily. Active coenzyme Q10 100 mg capsule Take 1 capsule (100 mg total) by mouth in the morning.Active calcium carbonate (CALCIUM 500 ORAL) Take by mouth daily.Active b complex vitamins capsule Take 1 capsule by mouth in the morning.Active diclofenac (VOLTAREN) 50 mg EC tablet Take 1 tablet (50 mg total) by mouth in the morning.Active pregabalin (LYRICA) 50 mg capsule 1 capsule (50 mg total) once daily at bedtime.04/27/2022ctive valsartan (DIOVAN) 40 mg tablet Take 0.5 tablets (20 mg total) by mouth in the morning. 45 tablet ctive furosemide (LASIX) 40 mg tablet Take 1 tablet (40 mg total) by mouth daily. PT NEEDS APPT AND LABS FOR FURTHER REFILLS 30 tablet ctive spironolactone (ALDACTONE) 25 mg tablet Indications:Chronic systolic CHF (congestive heart failure) ([facility])Take 1 tablet (25 mg total) by mouth in the morning. Need labs and appt for more refills. 90 tablet 06/15/2023ctive metoprolol succinate XL (TOPROL XL) 50 mg 24 hr tablet Take 1 tablet (50 mg total) by mouth in the morning. 90 tablet 12/06/2023ctive Active Problems ProblemNoted DateDiagnosed DateRLS (restless legs syndrome)06/05/2022nxiety 06/05/2022HF (congestive heart failure)06/05/2022MI 34.0-34.9,adult02/18/2022 Essential oymnoeksjimf97/21/2022Class 1 obesity in adult10/11/2020resence of Watchman left atrial appendage closure xbzkvd2911/03/2018Chronic systolic CHF (congestive heart failure)08/25/2018Obstructive sleep apnea syndrome in adult 07/02/2016Persistent atrial gihkhyhfqtti13/25/2016Left bundle branch block (LBBB)07/13/2014Sinoatrial node civldaofcnz34/13/2015Cardiomyopathy, nonischemic Resolved Problems ProblemNoted DateDiagnosed DateResolved DateOther hhhwhxc34F (atrial fibrillation)OB (shortness of breath)07/02/2016 08/25/20187457Focauczxzldpru25/07/Paroxysmal atrial fibrillation Left bundle branch block02/24/20185469Sbxnafomeqs84/28/2019 Shortness of kkluqf3802/24/2018 Family History Medical HistoryRelationNameCommentsHeart diseaseFatherNo Known ProblemsMother Breast cancerNeg HxRelationNameStatusCommentsFatherDeceasedMotherDeceased Social History Tobacco UseTypesPacks/DayYears UsedDateSmoking Tobacco: NeverSmokeless Tobacco: Never Tobacco Cessation:Counseling Given: Not Answered Alcohol UseStandard Drinks/WeekCommentsNo0 (1 standard drink = 0.6 oz pure alcohol)ChildcareAnswerDate MdcapoztGidzpwesyAylegpb91/31/2019EmploymentAnswer Date AwdtxlpsScckujffjhMgflzal20/31/2019Hunger ScreeningAnswerDate Recorded Within the past 12 months we worried whether our food would run out before we got money to buy more.Never True08/24/2022Food Insecurity - InabilityNot on file 3Purpose - LifeAnswerDate RecordedPurpose and direction in lifeUnknown 1CommentsNoSex and Gender InformationValueDate RecordedSex Assigned at BirthNot on fileLegal MqcJwyurw10/06/2015 12:14 PM EDTGender IdentityNot on fileSexual OrientationNot on file Last Filed Vital Signs Vital SignReadingTime TakenCommentsBlood Lfcsdpjn910/7003 1:31 PM EDT Yjbgh806408/24/2022 1:31 PM UARVuceecbqngz49.9 ??C (98.4 ??F)06/30/2022 10:30 AM ESTRespiratory Pucp882306/30/2022 11:10 AM ESTOxygen Tvwxynspbg73%06/30/2022 11:10 AM ESTInhaled Oxygen Concentration--Axyvag03.9 kg (209 lb 3.2 oz)08/24/2022 1:31 PM RJDNxwxpm365.1 cm (5' 5 )08/24/2022 1:31 PM EDTBody Mass Index34.8108/24/2022 1:31 PM EDT Plan of Treatment Health MaintenanceDue DateLast DoneCommentsDepression Ikpmubhrk58/22/1958Tobacco Bltvpidsx74/22/1958DTaP,Tdap and Td Vaccines (1 - Tdap)1964Zoster (Shingles) Vaccine (1 of 2)1995Fall Risk Wcuiotuau12/22/2011COVID-19 Vaccine (3 - season)/05/2020, 08/01/2020Influenza Vaccine /01/2021, 06/10/2020, 04/10/2019, Additional history exists Medical Devices ImplantedTypeAreaManufacturerDevice IdentifierShelf Expiration DateModel / Serial / LotMesh [id number] 3d Rect Plstr Clgn Symbotex 2 Sd Comp Mfl Babsr Rpl [id number] - Sna - [id number] Implanted:Qty: 1 on 06/30/2022 [facility]: AbdomenMEDTRONIC USA04/[id number] / NA / [id number] Clsr 30fr Watchman 30mm - [id number] Implanted:Qty: 1 on 10/28/2018 [facility] ImplantN/A: [place] Ueevfujtch82/24/[id number] / / [id number] Insurance Care Teams Team MemberRelationshipSpecialtyStart DateEnd Date Heaven Calderon, CULINARY ARTS TEACHER-COMPUTING CONSULTANT [address] [facility] [place] [address] PCP - GeneralFapappas rehabilitation hospital for [facility] Medicine10/30/21
[2025-03-30 08:08] LABS: Hematocrit 40.8 % (36.0-48.0); Hemoglobin 12.7 g/dL (12.0-16.0); Immature Granulocytes Abs Auto 0.04 10^3/uL (0.00-0.03); Immature Granulocytes Pct Auto 0.4 % (0.0-0.5); Lymphocytes Absolute Auto 1.7 10^3/uL (1.2-3.8); Mean Corpuscular HGB Conc 31.1 g/dL (29.9-35.2); Mean Corpuscular Hemoglobin 30.0 pg (26.7-34.0); Mean Corpuscular Volume 96.2 fL (81.0-99.0); Platelet Count 243 10^3/uL (150-450); Red Blood Count 4.24 10^6/uL (4.20-5.40); White Blood Count 10.1 10^3/uL (4.0-11.0)
[2025-03-30 09:29] LABS: Iron 55.0 ug/dL (50.0-170.0)
[2025-03-30 09:49] LABS: Alanine Aminotransferase 37 U/L (14-59); Albumin Globulin Ratio 0.9; Albumin Level 3.4 g/dL (3.4-5.0); Alkaline Phosphatase 122 U/L (46-116); Anion Gap 13.8; Aspartate Amino Transferase 30 U/L (15-37); Blood Urea Nitrogen 45.0 mg/dL (7.0-18.0); Calcium 8.9 mg/dL (8.5-10.1); Carbon Dioxide 24.9 mmol/L (21.0-32.0); Chloride 109 mmol/L (98-107); Cholesterol 141 mg/dL (<=200); Estimated GFR (African America 46 (>=60 mL/min/1.73m^2); Estimated GFR (Non-African Ame 38 (>=60 mL/min/1.73m^2); Free T3 2.51 pg/mL (2.18-3.98); Globulin 3.8 g/dL; Glucose 99 mg/dL (74-106); HDL Cholesterol 50 mg/dL (40-60); Potassium 4.7 mmol/L (3.5-5.1); Sodium 143 mmol/L (136-145); Thyroid Stimulating Hormone 2.024 uIU/mL (0.358-3.740); Total Protein 7.2 g/dL (6.4-8.2); Triglycerides 107 mg/dL (<=150); VLDL CHOLESTEROL 21.4 mg/dL
== END 2025-03-30 07:34 | disposition home or self-care (01) ==
PROVIDERS: PCP Nurse Practitioner Family; Visit Provider Nurse Practitioner Family
DX: N18.30 Chronic kidney disease, stage 3 unspecified (principal); R73.09 Other abnormal glucose; R53.83 Other fatigue
CPT/HCPCS: 36415; 80053; 80061; 82306; 83036; 83525; 83540; 84436; 84443; 84481; 85025

== ENCOUNTER 2025-05-03 11:30 | Outpatient (OUT) | payer MEDICARE, SELFPAY ==
--- OUTSIDE RECORDS SUMMARY | 2024-02-18 05:30 | XMS_ITS ---
Author Organization [facility] Address [address] [place] [address] Care Team Providers Care Bore Mill Operator Name Role Phone Heaven Calderon Primary Care Provider James Guillory Unavailable [phone] KURTIS ESPOSITO CNP Unavailable Unavailable REASON FOR VISIT HWR L3-4, L4-S1 DECOMPRESSION WITH FUSION EXTENSION TO L3,02/28/24, IOS Medications Medication SIG (Take, Route, Frequency, Duration) Notes Start Date End Date Status Protonix UnknownPercocetUnknownMirapex ERUnknownmetoprololUnknownlosartanUnknown SpironolactoneUnknownCarafateUnknownWater PillUnknownTrazodoneUnknown Social History Tobacco Use: Social History Observation Description Date Details (start date - stop date) Never Smoker NA - NA AUDIT-C (Standard) Question Answer Notes Did you have a drink containing alcohol in the p ast year? No Nvhqll9BdlzikzmccizdzRykpbaiwDxxdall Control (Standard) Question Answer Notes Tobacco use: Nonsmoker Problems Problem Type SNOMED Code ICD Code Onset Dates Problem Status W/U Status Risk Notes Problem Lumbar radiculopathy (848331101) Lumbar r adiculopathy (M54.16) ActiveconfirmedProblemNeurogenic claudication (997171659)Lumbar stenosis with neurogenic claudication (M48.062)Activeconfirmed Encounters Encounter Location Date Provider Diagnosis [facility] [facility] [address] [place] [address] [address] [place] [address] 02/18/2024 Selvon Anh Lumbosacral spinal stenosis M48.07 ; Other intervertebral disc degeneration, lumbosacral region M51.37 and Lumbar radiculopathy M54.16 Assessments Encounter Date Diagnosis (ICD Code) Assessment Notes Treatment Notes Treatment Clinical Notes Section Notes 02/18/2024 Lumbosacral spinal stenosis (ICD -10 - M48.07) 02/18/2024Other intervertebral disc degeneration, lumbosacral region (ICD-10 - M51.37)02/18/2024Lumbar radiculopathy (ICD-10 - M54.16)*Patient on oxycodone and Baclofen through PM Plan Of Treatment Treatment Notes Assessment Notes Lumbar radiculopathy *Patient on oxycodo ne and Baclofen through PM Pending Test Test Name Order Date DME - Lumbar Support, Surgical OTS 02/17 Type and Cross Blood 2 units 02/18/2024 Next Appt Details Follow Up: post op, Reason: Provider Name:James Rascon [facility], 06/21/2025 10:20:00 AM, [address] [place] [address], [phone], Progress Notes * SAUL GUTIÉRREZ GDOB:[birth year] (79 yo F)Acc No.[id number]:02/18/2024 Patient:?BROCK SAUL Reddy :?James Gibbs MD, PhDDOB:1945 ???Age:78 Y???Sex:FemaleDate:02/18/2024hone:[phone]:Yosi YOUSIF RDOLIVE VIEW-UCLA MEDICAL CENTERUM-[id number]:Heaven Calderon Subjective: * Chief Complaints: * 1 . HWR L3-4, L4-S1 DECOMPRESSION WITH FUSION EXTENSION TO L3,02/28/24, IOS. * HPI: ???HPI:?The patient returns today, where the history and physical was performed for upcoming surgery. We had a long talk regarding the options, risks, benefits, and issues. Risks include, but are not limitedto, infection, hematoma, bleeding, dural tear, nerve root injury, neuropathic pain syndrome, paralysis, failure for improvement, incomplete benefit, new neurologic deficit, spinal instability, ischemic optic neuropathy, speech/swallowing difficulties, DVT/PE, [place], stroke, , and etc. If the patient is having a fusion, risks also include non-union, adjacent segment disease, hardware failure, and etc. The patient elects to undergo the above-noted procedure. Absolutely no guarantees are made. No guarantees are made as far as the outcome. History and physical was dictated today; see that for details. * Medical History: * Social History: A LUIS-C (Standard) D id you have a drink containing alcohol in the past year? N o,?Points 0 , I nterpretation N egative. T obacco Control (Standard) T obacco use: N onsmoker. * Medications: U nknown Spironolactone , Unknown Water Pill , Unknown Trazodone , Unknown Carafate , Unknown Percocet , Unknown Mirapex ER , Unknown metoprolol , Unknown losartan , Unknown Protonix , Medication List reviewed and reconciled with the patient Objective: * Vitals: Assessment: * Assessment: 1.?Lumbosacral spinal stenosis - M48.07 (Primary)???2.?Other intervertebral disc degeneration, lumbosacral region - M51.37???3.?Lumbar radiculopathy - M54.16??? Plan: * Treatment: ?LAB: DME - Lumbar Support, Surgical OTS ?LAB: Type and Cross Blood 2 units Notes: *Patient on oxycodone and Baclofen through PM?? * Preventive Medicine: ??DME:?Lumbar Brace?A lumbosacral corset brace has been ordered today for postop erative use. The patient will use this brace daily for support and immobilization of the lumbar spine. The brace is necessary to limit motion of the spine to help facilitate healing in the initial post-op period..? * Follow Up: p ost op Forms: * Images: * Electronic signature of James Kamara MD, PHD on 05/03/2025 at 11:33 AM EST Sign off status: Pending * Provider: Jessenia Gibbs MD, PhD Date: 0 02/18/2024 Generated for Printing/Faxing/eTransmitting on:?05/03/2025 11:33 AM EST History and Physical Notes * HPI (History of Present Illness) CategorySub-CategoryDetailNotesCategory NotesHPIThe patient returns today, where the history and physical was performed for upcoming surgery. We had a long talk regarding the options, risks, benefits, and issues. Risks include, but are not limitedto, infection, hematoma, bleeding, dural tear, nerve root injury, neuropathic pain syndrome, paralysis, failure for improvement, incomplete benefit, new neurologic deficit, spinal instability, ischemic optic neuropathy, speech/swallowing difficulties, DVT/PE, [place], stroke, , and etc. If the patie nt is having a fusion, risks also include non-union, adjacent segment disease, hardware failure, and etc. The patient elects to undergo the above-noted procedure. Absolutely no guarantees are made. No guarantees are made as far as the outcome. History and physical was dictated today; see that for details.
--- OUTSIDE RECORDS SUMMARY | 2024-02-18 05:50 | XMS_ITS ---
Author Organization [facility] Address [address] [place] [address] Care Team Providers Care Manager Semiconductor Name Role Phone Heaven Calderon Primary Care Provider James Guillory Unavailable [phone] KURTIS ESPOSITO CNP Unavailable Unavailable REASON FOR VISIT LUMBAR PAIN Encounters Encounter Location Date Provider Diagnosis [facility] Office [address] [place] [address] [place] [address] 02/18/2024 James Kamara Plan Of Treatment Next Appt Details Provider Name:James Rascon Chava , 06/21/2025 10:20:00 AM, [address] [place] [address], [phone], Progress Notes * SAUL GUTIÉRREZ GDOB:[birth year] (79 yo F)Acc No.[id number]:02/18/2024 Patient:?SAUL GUTIÉRREZ Barry :?James Gibbs MD, PhDDOB:1945 ???Age:78 Y???Sex:FemaleDate:4Phone:[phone]:KELSY [address] RD VF-[id number]:Heaven Calderon Subjective: * Chief Complaints: * 1 . LUMBAR PAIN. * Medical History: Objective: * Vitals: Assessment: Plan: * Treatment: Forms: * Images: * Electronic signature of James Kamara MD, PHD on 05/03/2025 at 11:35 AM EST Sign off status: Pending * Provider: Jessenia Gibbs MD, PhD Date: 0 02/18/2024 Generated for Printing/Faxing/eTransmitting on:?05/03/2025 11:35 AM EST
--- OUTSIDE RECORDS SUMMARY | 2024-12-15 05:50 | XMS_ITS ---
Author Organization [facility] Address [address] [place] [address] Care Team Providers Care Rental Boats Caretaker Name Role Phone Heaven Calderon Primary Care Provider James Guillory Unavailable [phone] KURTIS ESPOSITO CNP Unavailable Unavailable REASON FOR VISIT LUMBAR RECHECK Encounters Encounter Location Date Provider Diagnosis [facility] [address] [place] [address] [place] [address] 12/15/2024 James Kamara Plan Of Treatment Next Appt Details Provider Name:James Rascon Chava , 06/21/2025 10:20:00 AM, [address] [place] [address], [phone], Progress Notes * SAUL GUTIÉRREZ GDOB:[birth year] (79 yo F)Acc No.[id number]:12/15/2024 Patient:?SAUL GUTIÉRREZ Barry :?James Gibbs MD, PhDDOB:1945 ???Age:79 Y???Sex:FemaleDate:12/15/2024Phone:[phone]:[address] [place]-[id number]:Heaven Calderon Subjective: * Chief Complaints: * 1 . LUMBAR RECHECK. * Medical History: Objective: * Vitals: Assessment: Plan: * Treatment: Forms: * Images: * Electronic signature of James Kamara MD, PHD on 05/03/2025 at 11:34 AM EST Sign off status: Pending * Provider: Jessenia Gibbs MD, PhD Date: 0 12/15/2024 Generated for Printing/Faxing/eTransmitting on:?05/03/2025 11:34 AM EST
--- OUTSIDE RECORDS SUMMARY | 2025-04-19 07:30 | XMS_ITS ---
Author Organization [facility] Address [address] [place] [address] Care Team Providers Care Special Population Paraprofessional Name Role Phone Heaven Calderon Primary Care Provider UnavailJames Pringle Unavailable [phone] KURTIS ESPOSITO CNP Unavailable Unavailable Shar Mckinnon Unavailable [phone] Allergies Allergen (clinical drug ingredient) Drug/Non Drug Allergy documented on EMR Reaction Allergy Type Onset Date Status codeine codeine Unknown Drug Allergy Active Reason For Referral Reason APPROVED............ ........................NOT SCHEDULED.................................[facility] CT myel[facility] at [facility] in [place] - not scheduled Diagnosis 1 Arthrodesis status ( Z98.1) Referral Organization [facility] Referring Provider First Name James Referring Provider Last Name St Ling Referring Provider Speciality Orthopedic Surgery Referred Organization [facility] Central Scheduling Referred Address [address] [place], [place],[address], Procedure 1 CT Cervical Spine; w ith contrast material (90434) General Notes Sonia Freire 04/01 01:01:12 PM >, Ximena Bauer 04/19/2025 01:26:15 PM > WAITING ON TODAY'S OFFICE NOTEJuancarlos Kayla 04/24/2025 07:59:49 AM > WAITING ON 04/19 OFFICE NOTE, Ximena Bauer 05/01/2025 09:30:44 AM > AUTHORIZATION REQUEST SUBMITTED WITH CLINICALS VIA [employer], TRACKING # [id number], Ximena Bauer 05/03/2025 10:15:06 AM > AUTHORIZATION # [id number] APPROVED AND VALID 05/02/25-07/01/25 PER [employer]. SCANNED INTO CHART AND FAXED TO [facility]. Referral Priority Routine REASON FOR VISIT Lumbar recheck Medications Medication SIG (Take, Route, Frequency, Duration) Notes Start Date End Date Status losartan UnknownPercocetUnknownMirapex ERUnknownmetoprololUnknownProtonixUnknownCarafate UnknownspironolactoneUnknownWater PillUnknownTrazodoneUnknown Social History Tobacco Use: Social History Observation Description Date Details (start date - stop date) Never Smoker NA - NA AUDIT-C (Standard) Question Answer Notes Did you have a drink containing alcohol in the p ast year? 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) ActiveconfirmedProblemDegenerative scoliosis (2844076171)Degenerative scoliosis (M41.50)Activeconfirmed Vital Signs Height 5'5 in 04/19/2025 Weight 180 lbs 04/19/2025 BMI 29.95 04/19/2025 Encounters Encounter Location Date Provider Diagnosis [facility] [address] [place] [phone] 04/19/2025 Shar Pratibha Arthrodesis status Z 98.1 ; Other intervertebral disc degeneration, lumbar region with discogenic back pain and lower extremity pain M51.362 ; Hyperlordosis deformity of lumbar spine M40.56 and Degenerative scoliosis M41.50 Assessments Encounter Date Diagnosis (ICD Code) Assessment Notes Treatment Notes Treatment Clinical Notes Section Notes 04/19/2025 Arthrodesis status (ICD-10 - Z98 .1) 1. 14 months status post L3-S1 decompression and fusion 2. L2-L3 degenerative disc disease and hypolordosis 3. Thoracolumbar scoliosis 04/19/2025Other intervertebral disc degeneration, lumbar region with discogenic back pain and lower extremitypain (ICD-10 - M51.362) 1. 14 months status post L3-S1 decompression and fusion 2. L2-L3 degenerative disc disease and hypolordosis 3. Thoracolumbar scoliosis 04/19/2025Hyperlordosis deformity of lumbar spine (ICD-10 - M40.56) 1. 14 months status post L3-S1 decompression and fusion 2. L2-L3 degenerative disc disease and hypolordosis 3. Thoracolumbar scoliosis 04/19/2025Degenerative scoliosis (ICD-10 - M41.50) 1. 14 months status post L3-S1 decompression and fusion 2. L2-L3 degenerative disc disease and hypolordosis 3. Thoracolumbar scoliosis 04/19/2025Other Plan established by Dr. Gibbs. At this time, we will set patient up for a CT myelogram of the lumbar spine to rule any possible stenosis causing radicular symptoms. Will see the patient back in the office after the testing. The patient is very much in agreement with the treatment and/or diagnostic plan set forth and all questions were answered to the patient's satisfaction. Thanks once again. If we can be of further service to your patients with disorders of the spine, cervical, thoracic, or lumbar, please do not hesitate to contact Dr. Gibbs. Jhon regards, 1. 14 months status post L3-S1 decompression and fusion 2. L2-L3 degenerative disc disease and hypolordosis 3. Thoracolumbar scoliosis Plan Of Treatment Treatment Notes Assessment Notes Other Plan established by Dr. Gibbs. At this time, we will set patient up for a CT myelogram of the lumbar spine to rule any possible stenosis causing radicular symptoms. Will see the patient back in the office after the testing. The patient is very much in agreement with the treatment and/or diagnostic plan set forth and all questions were answered to the patient's satisfaction. Thanks once again. If we can be of further service to your patients with disorders of the spine, cervical, thoracic, or lumbar, please do not hesitate to contact Dr. Gibbs. Best regards, Pending Test Test Name Order Date CT Myelogram - Lumbar Spine 04/19/2025 Referrals Referral Date Details 04/19/2025 04/19/2025, APPROVED ....................................NOT SCHEDULED.................................[facility] cervical CT myelogram at [facility] in [place] - not scheduled, [address] [place], [address], Next Appt Details Follow Up: after myelogram, Reason: Provider Name:James Rascon Chava stephen, 06/21/2025 10:20:00 AM, [address] [facility], [place], [address], Progress Notes * SAUL GUTIÉRREZ GDOB:[birth year] (79 yo F)Acc No.[id number]:04/19/2025 Patient:?SAUL GUTIÉRREZ Barry :?YAMILEX Clements-CDOB:1945???Age:79 Y ???Sex:FemaleDate:04/19/2025Phone:[phone]:[facility] [place], [id number]:Heaven Calderon Subjective: * Chief Complaints: * 1 . Lumbar recheck. * HPI: ???General Info per Patient Report:? Dictated by Shar Mckinnon PA-C Patient returns to the office today 14 months status post L3-S1 decompression and fusion. Patient is reporting thoracolumbar pain with aching and numbness into the bilateral legs and feet. Denies anybladder or bowel dysfunction. Denies any mica weakness in the extremities. * Medical History: H igh Blood Pressure, Abnormal Heart Rhythm, Stomach ulcers, Gastric Reflux, Irritable bowel syndrome, Kidney stones, Pacemaker or AICD. * Surgical History: H and surgery 2019, Lumbar surgery , Pacemaker , L3-S1 laminectomy, PSF 01/2024. * Family History: M other: diagnosed with Arthritis. * Social History: A LUIS-C (Standard) D id you have a drink containing alcohol in the past year? N o,?Points 0 , I nterpretation N egative. T obacco Control (Standard) T obacco use: N onsmoker. * Medications: U nknown spironolactone , Unknown Water Pill , Unknown Trazodone , Unknown Carafate , Unknown Percocet , Unknown Mirapex ER , Unknown metoprolol , Unknown losartan , Unknown Protonix , Medication List reviewed and reconciled with the patient * Allergies: C odeine. Objective: * Vitals: H t: 5'5 , Wt: 180 lbs, BMI:29.95. * Examination: ???General examination: ???On examination, the patient is well-developed, well-nourished, well-groomed, alert and oriented x3, normal mood.. Limited lumbar ROM. Tender over the lumbar spine. 5/5 muscle strength bilateral lower extremities. Sensory intact lower extremities. ??? Assessment: * Assessment: 1.?Arthrodesis status - Z98.1 (Primary)???2.?Other intervertebral disc dege neration, lumbar region with discogenic back pain and lower extremity pain - M51.362?? 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 14 months status post L3-S1 decompression and fusion 2. L2-L3 degenerative disc disease and hypolordosis 3. Thoracolumbar scoliosis. Plan: * Treatment: ?Imaging: CT Myelogram - Lumbar Spine? Referral To: ?Reason:APPROVED....................................NOT SCHEDULED.................................[facility] cervical CT myelogram at [facility] in [place] - not scheduled 2.?Other intervertebral disc degeneration, lumbar region with discogenic back pain and lower extremity pain?Imaging: CT Myelogram - Lumbar Spine3.?Hyperlordosis deformity of lumbar spine?Imaging: CT Myelogram - Lumbar Spine4.?Degenerative scoliosis?Imaging: CT Myelogram - Lumbar Spine5.?Others? Notes: Plan established by Dr. Gibbs. At this time, we will set patient up for a CT myelogram of the lumbar spine to rule any possible stenosis causing radicular symptoms. Will see the patient back in the office after the testing. The patient is very much in agreement with the treatment and/or diagnostic plan set forth and all questions were answered to the patient's satisfaction. Thanks once again. If we can be of further service to your patients with disorders of the spine, cervical, thoracic, or lumbar, please do not hesitate to contact Dr. Gibbs. Best regards, ?? * Preventive Medicine: ??MIPS Measures:?[id number] Fall Risk?Screening:?No falls in the past year. * Follow Up: a er myelogram Forms: * Images: * Electronic signature of Shar Mckinnon PA-C on 05/03/2025 at 11:33 AM ESTSign off status: Pending * Provider: Jessenia Mckinnon PA-C Date: 06/19/2024 Generated for Printing/Faxing/eTransmitting on:?05/03/2025 11:33 AM EST History and Physical Notes * HPI (History of Present Illness) CategorySub-CategoryDetailNotesCategory NotesGeneral Info per Patient Report Dictated by Shar Mckinnon PA-C Patient returns to the office today 14 months status post L3-S1 decompression and fusion. Patient is reporting thoracolumbar pain with aching and numbness into the bilateral legs and feet. Denies anybladder or bowel dysfunction. Denies any mica weakness in the extremities. Examination CategorySub-CategoryDetailNotesCategory NotesGeneral examinationOn examination, the patient is well-developed, well-nourished, well-groomed, alert and oriented x3,normal mood.. Limited lumbar ROM. Tender over the lumbar spine. 5/5 muscle strength bilateral lowerextremities. Sensory intact lower extremities. Consultation Request Notes Referral Date Referring Provider Referred Provider Not es 04/19/2025 James Kamara , APPROVED... ....................... ..........NOT SCHEDULED......................... ........[facility] cervical CT myelogram at [facility] - not scheduled
--- OUTSIDE RECORDS SUMMARY | 2025-05-03 11:34 | XMS_ITS | Clinical Summary ---
Author Organization [facility] Address [address] [place] [address] Care Team Providers Care Pedal Assembler Name Role Phone Heaven Calderon VICKIE Primary Care Provider [phone] Allergies Active AllergyReactionsCriticalityNoted VprvErzubkecRscwknz26/07/2015 Other reaction(s): Intolerance-unknown Mtydzckfrg99/22/2015 Other reaction(s): Dry cough HmvlxxzqpxGrdkp32/03/2024 Medications MedicationSigDispense QuantityRefillsLast FilledStart DateEnd DateStatus pantoprazole [...] once daily as directed. 90 tablet 5Active Jardiance 10 mg Take 10 mg by mouth in the morning.Active ferrous sulfate 325 (65 Fe) MG tablet Take 325 mg by mouth with breakfast.Active Active Problems ProblemNoted DateDiagnosed DuplJbmnhaoczzolvh17/04/2025Iron hwlfokxiiv15/04/2025 Abnormal findings on diagnostic imaging of heart and coronary circulation 08/18/2024quired pppcxadciekptefdr51/21/2025llergic abthklwr24/21/2025 Iffhtqzea46/21/2025rthrodesis hibccd5608/18/2024ataract of both eyes08/18/2024 Chronic back pain08/18/2024Encounter for other orthopedic xdacmexxg30/21/2025 Fnrjczyshcav04/21/2025Gastroesophageal reflux jrbqnum7508/18/2024Heartburn 08/18/20240029Qchiwxrmjpg47/21/2025History of gastric ulcer08/18/2024Hypertension 08/18/20248385Boldlmpl55/21/2025Lumbar ymarbifohlydv66/21/7701Mhpppxekwrkz57/21/2025 Dkknssmjnn99/21/2025Presence of other cardiac implants and ckqbpa7208/18/2024Sleep apnea08/18/2024Spinal stenosis of lumbar urdfkt8208/18/2024Stage 3 chronic kidney xdkvilx9408/18/2024Ventral hbccaf2008/18/2024Pre-operative cardiovascular nllzdnohvso53/16/2024DD (degenerative disc disease), anfbhy9402/11/2024 Fwughnamitj40/03/9789Nruukudt53/03/2024Hx of atrioventricular node ablation 12/01/2023 Assessment & Plan (12/01/2023 11:31 AM EDT): Currently pt is doing quite well s/p recent AV node ablation Remains V paced with BI-V AICd Paroxysmal atrial aypjeczjnmwc03/29/2024resence of biventricular AICD07/14/2023 Assessment & Plan (07/14/2023 10:58 AM EST): Site well approximated and healing well No s/s of infection or hematoma, + ecchymosis noted Dilated soinghmvyhbjjf97/19/2023bnormal cardiovascular stress test12/18/2022 Cardiomyopathy, eywwypgqzyk03/26/2023 Assessment & Plan (02/04/2023 2:57 PM EDT): -NYHA II, NICM, HFrEF EF 35%, pending MUGA scan in 2-3 months to reassess EF for ICD -nonobstruc cors 12/2022 -ct gdmt -she appears euvolemic and compensated Auqarmk9606/05/2022HF (congestive heart failure)06/05/2022RLS (restless legs syndrome)06/05/2022MI 34.0-34.9,adult02/18/2022enign hypertensive cardiomyopathy with heart hwhevgv9102/18/2022 Assessment & Plan (02/04/2023 2:58 PM EDT): -stable, ct medications Class 1 obesity in adult10/11/2020resence of Watchman left atrial appendage closure odddtx8911/03/2018 Assessment & Plan (12/01/2023 11:30 AM EDT): No anticoagulation currently Assessment & Plan (07/14/2023 10:58 AM EST): stable Assessment & Plan (02/04/2023 3:00 PM EDT): -s/p watchmen 2019, on aspirin Chronic systolic CHF (congestive heart failure)08/25/2018Obstructive sleep apnea syndrome in adult07/02/2016 Assessment & Plan (02/04/2023 2:56 PM EDT): -adv compliance with cpap Persistent atrial xxkcnnsqtajc13/25/2016 Overview (12/01/2023): -GUN4ZS4-CTWz at least 5 for age x2, gender, hypertension, CHF, on aspirin s/p watchmen S/P AV node ablation- currently is V paced No concerning symptoms today Assessment & Plan (07/14/2023 10:58 AM EST): -SUN4UC7-GLOi at least 5 for age x2, gender, hypertension, CHF, on aspirin s/p watchmen Continue meds as prescribed Assessment & Plan (02/04/2023 3:00 PM EDT): -XTA0OW9-GEFy at least 5 for age x2, gender, [...] BiV ICD if ICD indicated Sinoatrial node fwsbffvbxet40/13/2015 Encounters DateTypeDepartmentCare HvovJcnrkvbpoap31/17/2025 1:30 PM ESTAncillary Procedure [facility] [address] [place] [address] Pre-operative cardiovascular examination, ICD in place04/14/2025Orders Only [facility] [address] [facility] [address] [address] Robert Madden MD 04/03/2025 1:15 PM ESTOffice Visit [facility] [address] [facility] [place] [phone] Robert Madden MD Presence of biventricular AICD (Primary Dx)04/03/2025 1:00 PM ESTAncillary Procedure [facility] [address] [facility] [place] [phone] Encounter for implantable defibrillator reprogramming or check03/14/2025 10:35 AM EDTAncillary Procedure [facility] [address] [facility] [address] [address] Pre-operative cardiovascular examination, ICD in place03/14/2025Orders Only [facility] [address] [place] [address] Pablo Padilla MD 02/12/2025 12:30 PM EDTAncillary Procedure [facility] [address] [place], [place] [address] [address] Pre-operative cardiovascular examination, ICD in place02/11/2025Orders Only [facility] [address] [place] [phone] Robert Madden MD from Last 3 Months Family History Medical HistoryRelationNameCommentsHeart failureFatherRelationNameStatusComments FatherDeceasedMotherDeceased Social History Tobacco UseTypesPacks/DayYears UsedDateSmoking Tobacco: NeverSmokeless Tobacco: Never Tobacco Cessation:Counseling Given: Not Answered Alcohol UseStandard Drinks/WeekCommentsNever0 (1 standard drink = 0.6 oz pure alcohol)UT Safety & EnvironmentAnswerDate RecordedFear of Current or Ex-Partner Not on file07/23/2023Emotionally AbusedNot on file07/23/2023hysically AbusedNot on file07/23/2023Sexually AbusedNot on file07/23/2023hysically or Sexually AbusedNot on file07/23/2023CommentsNoSex and Gender InformationValueDate RecordedSex Assigned at UmwksYlqynm55/03/2024 6:52 AM EDTLegal SexFemale 10/07/2022 11:59 AM EDTGender IvqpnqebKhxvgd12/03/2024 6:52 AM EDTSexual OrientationHeterosexual or Kbtluefg19/03/2024 6:52 AM EDT Last Filed Vital Signs Vital SignReadingTime TakenCommentsBlood Ygdlgdfc960/6804/03/2025 12:59 PM EST Amngq684504/03/2025 12:59 PM ESTTemperature--Respiratory Wsmf549411/01/2023 11:15 AM EDTOxygen Qbqyovhxvq22%04/03/2025 12:59 PM ESTInhaled Oxygen Concentration-- Ulwsdm70.9 kg (196 lb)04/03/2025 12:59 PM ULHYidlbv594.1 cm (5' 5 )04/03/2025 12:59 PM ESTBody Mass Index32.6204/03/2025 12:59 PM EST Plan of Treatment Health MaintenanceDue DateLast DoneCommentsMedicare Annual Wellness (AWV) 1945Depression Luevqsjxx11/22/1958Adult Mzjukri3407/22/1967Zoster Vaccines (1 of 2)1995Fall Risk Wsninvkxp21/22/2011Pneumococcal Vaccine: 50+ Years (2 of 2 - PPSV23, PCV20, or PCV21)COVID-19 Vaccine (3 - season)504/05/2020, 08/01/2020Influenza Vaccine (#1)2025 04/10/2024, 05/08/2021, 06/10/2020, Additional history existsHIB VaccinesAged OutNo longer eligible [...] Expiration DateModel / Serial / LotVigilant X4 Senior It Assistant-D Is-1/Df4/Is4 Implanted:Qty: 1 on 07/05/2023 [facility] ICDCranberry [id number] / [id number] / [place] 4-Front S Active Fix Single Coil 59cm Implanted:Qty: 1 on 07/05/2023 by Robert Madden MD at [facility] [id number] / [id number] / Lead,Acuity X4,Straight - [id number] - [id number] Implanted:Qty: 1 on 07/05/2023 by Robert Madden MD at [facility] [id number] / [id number] / Procedures Procedure NamePriorityDate/TimeAssociated DiagnosisCommentsCARDIAC DEVICE CHECK CHECK - SADHZFIutzohi52/17/2025 6:39 PM EST Pre-operative cardiovascular examination, ICD in place CARDIAC DEVICE CHECK - REMOTE - MKPVisveli33/15/2025 12:00 AM ESTCARDIAC DEVICE CHECK - IN CLINIC - ICD BIVENTRICULAR CHAMBER W/ INWDZjkiatn48/07/2025 11:28 AM EST Encounter for implantable defibrillator reprogramming or check CARDIAC DEVICE CHECK CHECK - NQCVLDFeawbpm78/20/2025 11:01 AM EDT Pre-operative cardiovascular examination, ICD in place CARDIAC DEVICE CHECK - REMOTE - EDZWmbtkfy32/15/2025 12:00 AM EDTCARDIAC DEVICE CHECK CHECK - PGUNFKThkshnx27/15/2025 1:52 PM EDT Pre-operative cardiovascular examination, ICD in place CARDIAC DEVICE CHECK - REMOTE - YILPgecrjd67/14/2025 12:00 AM EDTfrom Last 3 Months Results * CARDIAC DEVICE CHECK - REMOTE - ICD (04/16/2025 6:39 PM EST) Only the most recent of3 resultswithin the time period is included. Specimen (Source)Anatomical Location / LateralityCollection Method / Volume Collection TimeReceived Time Narrative Authorizing ProviderResult TypeResult StatusBlair Kay MDCV IMPLANTABLE CARDIAC DEVICE PROCEDURESFinal ResultPerforming OrganizationAddressCity/State/ZIP Code Phone Number CPACS * Cardiac device check - Remote ICD (04/14/2025 12:00 AM EST) Only the most recent of3 resultswithin the time period is included. Anatomical RegionLateralityModalityOtherSpecimen (Source)Anatomical Location / LateralityCollection Method / VolumeCollection TimeReceived Time04/14/2025 Narrative Authorizing ProviderResult TypeResult StatusPaul Chano [facility] [place] IMPLANTABLE CARDIAC DEVICE PROCEDURESFinal Result * CARDIAC DEVICE CHECK - IN CLINIC - ICD BIVENTRICULAR CHAMBER W/ PROG (04/06/2025 11:28 AM EST)ComponentValueRef RangeTest MethodAnalysis Time Performed AtPathologist SignatureBSA2.02m2GE PACS CARDIOAnatomical Region LateralityModalityOtherSpecimen (Source)Anatomical Location / Laterality Collection Method / VolumeCollection TimeReceived Time Narrative 04/11/2025 12:20 PM EST Normal device function Authorizing ProviderResult TypeResult StatusBronaugh ChanoVaughan Regional Medical Center IMPLANTABLE CARDIAC DEVICE PROCEDURESFinal Result from Last 3 Months Insurance Care Teams Team MemberRelationshipSpecialtyStart DateEnd Date Heaven Calderon CNP [facility], [facility] [place] [phone] PCP - GeneralFagaly Ymgjytja12/19/23
--- OUTSIDE RECORDS SUMMARY | 2025-05-03 11:34 | XMS_ITS | Patient Health Record ---
Author Organization [facility] Address [address] [place] [address] Care Team Providers Care Infectious Waste Technician Name Role Phone Heaven Calderon Primary Care Provider UnavailJames Pringle Unavailable [phone] KURTIS ESPOSITO CNP Unavailable Unavailable Shar Mckinnon Unavailable [phone] Radha Thao Unavailable Allergies Allergen (clinical drug ingredient) Drug/Non Drug Allergy documented on EMR Reaction Allergy Type Onset Date Status codeine codeine Unknown Drug Allergy Active Reason For Referral Reason APPROVED............ ........................NOT SCHEDULED.................................HUMANA MCR cervical CT myelogram at [facility] - not scheduled Diagnosis 1 Arthrodesis status ( Z98.1) Referral Organization [facility] Referring Provider First Name James Referring Provider Last Name St Ling Referring Provider Speciality Orthopedic Surgery Referred Organization [facility] Scheduling Referred Address [address], [place],[address], Procedure 1 CT Cervical Spine; w ith contrast material (21206) General Notes Snoia Freire 04/01 01:01:12 PM >, Ximena Bauer 04/19/2025 01:26:15 PM > WAITING ON TODAY'S OFFICE NOTE, Ximena Bauer 04/24/2025 07:59:49 AM > WAITING ON 04/19 OFFICE NOTE, Ximena Bauer 05/01/2025 09:30:44 AM > AUTHORIZATION REQUEST SUBMITTED WITH CLINICALS VIA [employer], TRACKING # [id number], Ximena Bauer 05/03/2025 10:15:06 AM > AUTHORIZATION # [id number] APPROVED AND VALID 05/02/25-07/01/25 PER [employer]. SCANNED INTO CHART AND FAXED TO [facility]. Referral Priority Routine Medications Medication SIG (Take, Route, Frequency, Duration) Notes Start Date End Date Status losartan UnknownCarafateUnknownPercocetUnknownMirapex ERUnknownmetoprololUnknown spironolactoneUnknownWater PillUnknownTrazodoneUnknownProtonixUnknown Social History Tobacco Use: Social History Observation Description Date Details (start date - stop date) Never Smoker NA - NA AUDIT-C (Standard) Question Answer Notes Did you have a drink containing alcohol in the p ast year? No Erqqww3LkddggnbsxxhqhSrioskgoSrqmyte Control (Standard) Question Answer Notes Tobacco use: Nonsmoker Problems Problem Type SNOMED Code ICD Code Onset Dates Problem Status W/U Status Risk Notes Problem Lumbar radiculopathy (630321566) Lumbar r adiculopathy (M54.16) ActiveconfirmedProblemHistory of arthrodesis (316912526)Arthrodesis status (Z98.1)ActiveconfirmedProblemDegeneration of lumbosacral intervertebral disc (47834003)Other intervertebral disc degeneration, lumbosacral region (M51.37) ActiveconfirmedProblemAcquired spondylolisthesis (842949084)Spondylolisthesis of lumbar region (M43.16)ActiveconfirmedProblemDegenerative disc disease (51734920) DDD (degenerative disc disease), lumbar (M51.36)ActiveconfirmedProblemSpinal stenosis of lumbar region (99383048)Lumbosacral spinal stenosis (M48.07)Active confirmedProblemNeurogenic claudication (383628388)Lumbar stenosis with neurogenic claudication (M48.062)ActiveconfirmedProblemDegenerative scoliosis (8581946077)Degenerative scoliosis (M41.50)ActiveconfirmedProblemEncounter for other orthopedic aftercare (Z47.89)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 (5655667297)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50 [facility] [place] [address] 06/02/2024 [facility] Encounter for other orthopedic aftercare Z47.89 and Arthrodesis status Z98.1 [facility] [address] [place] [address] 09/01/2024 [facility] Encounter for other orthopedic aftercare Z47.89 and Arthrodesis status Z98.1 [facility] [address] [place] [phone] 12/22/2024 [facility] Aftercare following surgery of the musculoskeletal system Z47.89 Assessments Encounter Date Diagnosis (ICD Code) Assessment Notes Treatment Notes Treatment Clinical Notes Section Notes 06/02/2024 Arthrodesis status (ICD-10 - Z98 .1) 1. 3 months s/p HWR L3-4, L3-5 decompression/bwkarg9906/02/2024Encounter for other orthopedic aftercare (ICD-10 - Z47.89)1. 3 months s/p HWR L3-4, L3-5 decompression/jvjhyl0509/01/2024rthrodesis status (ICD-10 - Z98.1)1. 3 months s/p L3-4 hardware removal, L3-S1 decompression with extension fusion to S1009/01/2024 Encounter for other orthopedic aftercare (ICD-10 - Z47.89)1. 3 months s/p L3-4 hardware removal, L3-S1 decompression with extension fusion to Aftercare following surgery of the musculoskeletal system (ICD-10 - Z47.89) 04/19/2025rthrodesis status (ICD-10 - Z98.1) 1. 14 months status post L3-S1 decompression [...] to contact Dr. Gibbs. Best regards, 1. 14 months status post L3-S1 decompression and fusion 2. L2-L3 degenerative disc disease and hypolordosis 3. Thoracolumbar scoliosis 06/02/2024Other Plan established by Dr. Gibbs. Patient [...] 1. 3 months s/p HWR L3-4, L3-5 decompression/ixaiga3909/01/2024Other Plan established by Dr. Gibbs. Patient evaluated [...] removal, L3-S1 decompression with extension fusion to S1012/22/2024Other Radha, a female patient, presents for a 6-month [...] Date Lumbar spine, 4v flex ext - 57989 2023 Lumbar spine, 4v flex ext - 65783 2024 Lumbar spine, 4v flex ext - 17743 2024 Lumbar spine 2v ap and lat - 86749 04/14 Lumbar spine 2v ap and lat - 73279 06/02 Surgery Scheduling 02/10/2024 DME - Lumbar Support, Surgical OTS 02/17 SFS - Lumbar Spine PT Order, Isometrics & Strenghening w/Modalities as needed, 2-3 times per week for 6 weeks 04/03/2024 Type and Cross Blood 2 units 02/18/2024 CT Myelogram - Lumbar Spine 04/19/2025 Future Test Test Name Order Date Chest 2 views - [id number] 02/10/2024 CBC 02/10/2024 PT/PTT 02/10/2024 BMP 02/10/2024 MRSA (Bilateral Nares) PCR 02/10/2024 EKG 02/10/2024 Next Appt Details Provider Name:James Arevalo, 06/21/2025 10:20:00 AM, [address] [place] [address], [place], [address], Insurance Providers Payer Name Payer Address Payer Phone Subscriber Number Group Number Insured Name Patient Relationship to Insured Coverage Start Date Coverage End Date Medicare [employer] [address] [address] [place] [address] [phone] [id number] Mauricio GUTIÉRREZ - patient is the [id number] 2024 Medical (General) History Medical History History ICD Code High Blood Pressure Abnormal Heart RhythmStomach ulcersGastric RefluxIrritable bowel syndromeKidney stonesPacemaker or AICDSurgical History Surgery Date(Month/Year) L3-S1 laminectomy, PSF 01/2024 Pacemaker Lumbar surgeryHand [id number]
--- OUTSIDE RECORDS SUMMARY | 2025-05-03 11:35 | XMS_ITS | Clinical Summary ---
Author Organization [facility] Address [id number] [address] [place] [address] Care Team Providers Care Administrative Coordinator Name Role Phone Heaven Calderon APRN-PROPERTY FIELD INSPECTOR Primary Care Provider Allergies Active AllergyReactionsCriticalityNoted HgyhBnyryjnyKfipmse25/07/2015 Other reaction(s): Intolerance-unknown Dnaosidyhk13/22/2015 Other reaction(s): Dry cough Medications MedicationSigDispense QuantityRefillsLast [...] tablet Indications:Chronic systolic CHF (congestive heart failure) ([facility])Take 1 tablet (25 mg total) by mouth in the morning. Need labs and appt for more refills. 90 tablet 06/15/2023ctive metoprolol succinate XL (TOPROL XL) 50 mg 24 hr tablet Take 1 tablet (50 mg total) by mouth in the morning. 90 tablet 12/06/2023ctive Active Problems ProblemNoted DateDiagnosed DateRLS (restless legs syndrome)06/05/2022nxiety 06/05/2022HF (congestive heart failure)06/05/2022MI 34.0-34.9,adult02/18/2022 Essential sivmhsxcozbn32/21/2022Class 1 obesity in adult10/11/2020resence of Watchman left atrial appendage closure hrmmxt5311/03/2018Chronic systolic CHF (congestive heart failure)08/25/2018Obstructive sleep apnea syndrome in adult 07/02/2016Persistent atrial mqpzjlycczdc46/25/2016Left bundle branch block (LBBB)07/13/2014Sinoatrial node xncoqrcbtgc92/13/2015Cardiomyopathy, nonischemic Resolved Problems ProblemNoted DateDiagnosed DateResolved DateOther cdjzpva69F (atrial fibrillation)OB (shortness of breath)07/02/2016 08/25/20183016Fvqsibnsayxmxc91/07/Paroxysmal atrial fibrillation Left bundle branch block02/24/20188115Wjomjbxzopa33/28/2019 Shortness of bvxvlw2902/24/2018 Family History Medical HistoryRelationNameCommentsHeart diseaseFatherNo Known ProblemsMother Breast cancerNeg HxRelationNameStatusCommentsFatherDeceasedMotherDeceased Social History Tobacco UseTypesPacks/DayYears UsedDateSmoking Tobacco: NeverSmokeless Tobacco: Never Tobacco Cessation:Counseling Given: Not Answered Alcohol UseStandard Drinks/WeekCommentsNo0 (1 standard drink = 0.6 oz pure alcohol)ChildcareAnswerDate EniqntzkAgzmjcdstSjcxmot68/31/2019EmploymentAnswer Date StndsannJxzonbnpsmUbgappm70/31/2019Hunger ScreeningAnswerDate Recorded Within the past 12 months we worried whether our food would run out before we got money to buy more.Never True08/24/2022Food Insecurity - InabilityNot on file 3Purpose - LifeAnswerDate RecordedPurpose and direction in lifeUnknown 1CommentsNoSex and Gender InformationValueDate RecordedSex Assigned at BirthNot on fileLegal QiwUwnkko39/06/2015 12:14 PM EDTGender IdentityNot on fileSexual OrientationNot on file Last Filed Vital Signs Vital SignReadingTime TakenCommentsBlood Bddpxxst364/7003 1:31 PM EDT Hwtbg264008/24/2022 1:31 PM RNGGutsyshdizi79.9 ??C (98.4 ??F)06/30/2022 10:30 AM ESTRespiratory Dsec613506/30/2022 11:10 AM ESTOxygen Ehhanjqvxs53%06/30/2022 11:10 AM ESTInhaled Oxygen Concentration--Brmuxw43.9 kg (209 lb 3.2 oz)08/24/2022 1:31 PM GYODglcyf743.1 cm (5' 5 )08/24/2022 1:31 PM EDTBody Mass Index34.8108/24/2022 1:31 PM EDT Plan of Treatment Health MaintenanceDue DateLast DoneCommentsDepression Sqbmtfmpr76/22/1958Tobacco Uxzrijgad69/22/1958DTaP,Tdap and Td Vaccines (1 - Tdap)1964Zoster (Shingles) Vaccine (1 of 2)1995Fall Risk Aioyyqgfo28/22/2011RSV ( or age 60+ yrs) (1 - 1-dose 75+ series)2020OVID-19 Vaccine (3 - season)504/05/2020, 08/01/2020Influenza Urbgrlu93/01/2021, 06/10/2020, 04/10/2019, Additional history exists Medical Devices ImplantedTypeAreaManufacturerDevice IdentifierShelf Expiration DateModel / Serial / LotMesh [id number] 3d Rect Plstr Clgn Symbotex 2 Sd Comp Mfl Babsr Rpl [id number] - Sna - [id number] Implanted:Qty: 1 on 06/30/2022 [facility]/A: AbdomenMEDTRONIC [facility]04/29/[id number] / NA / [id number] Clsr 30fr Watchman 30mm - [id number] Implanted:Qty: 1 on 10/28/2018 [facility]Other ImplantN/A: [employer] Cbetvthdvf68/24/[id number] / / [id number] Insurance Care Teams Team MemberRelationshipSpecialtyStart DateEnd Date Heaven Calderon APRN-PROPERTY FIELD INSPECTOR [address] [facility] [place] [id number] PCP - [facility]Ed[facility]10/30/21
--- OUTSIDE RECORDS SUMMARY | 2025-05-03 11:35 | XMS_ITS | Patient Health Record ---
Author Organization The [facility] in [place] Address [address] [place] [address] Care Team Providers Care [place] Commissioner Name Role Phone Heaven Staley Primary Care Provider All Alvarez [phone] Allergies Allergen (clinical drug ingredient) Drug/Non Drug Allergy documented on EMR Reaction Allergy Type Onset Date Status pregabalin Lyrica Unknown Drug Allergy ActivecodeineCodeineUnknownDrug AllergyActivelisinoprilLisinoprilUnknownDrug AllergyActive Results Component Value Reference Range Notes XR lumbar spine 2-3V Reviewed date:06/05/2024 08:55:00 AM Interpretation: Performing Lab: Notes/Report: Source Facility: [place] [address] XRay Report Signed Patient: SAUL GUTIÉRREZ MR#: [id number] : 1945 Acct:[id number] Age/Sex: 78 / F ADM Date: 06/02/24 Loc: EC Attending Dr: Avani Gibbs M.D. Ordering Physician: Avani Gibbs M.D. Date of Service: 06/02/24 Procedure(s): XR lumbar spine 2-3V Accession Number(s): [id number] cc: HEAVEN STALEY ; Avani Gibbs M.D. [place] [address] Patient Name: SAUL GUTIÉRREZ MRN: [facility]:[id number] date: 1945 Sex: F Assigned Patient Location: Current Patient Location: Accession/Order Number: [id number] Exam Date: 06/02/2024 10:14 Report Date: 06/05/2024 [...] M.D. Signed By: 06/05/24720 DD/ 7 TD/TT: Front Desk Attendant: FERRITIN Reviewed date:08/21/2024 01:51:08 PM Interpretation: Performing Lab: Notes/Report: [facility] , Ferritin 17.0 8.0-252.0 ng/mL Performing Lab:see noteML - [facility] LBMAGNESIUM Reviewed date:08/21/2024 01:51:08 PM Interpretation: Performing Lab: Notes/Report: [facility] ,Magnesium2.41.8-2.4 mg/dLPerforming Lab:see noteML - [facility] LB RENAL FUNCTION PANEL Reviewed date:08/21/2024 01:51:08 PM Interpretation: Performing Lab: Notes/Report: [facility] ,Gaqgvw960901-041 mmol/LPotassium4.73.5-5.1 mmol/IGrkmgcow42478-046 mmol/LCarbon Selezla11.521.0-32.0 mmol/LAnion Gap10.6Jdnkixy9595-434 mg/dLBlood Urea Nitrogen 36.07.0-18.0 mg/dLCreatinine1.360.55-1.02 mg/dLEstimated GFR ( Hajtznu41 >=60 mL/min/1.73m 2Estimated GFR (Non- Ame38>=60 mL/min/1.73m 2BUN Creatinine Ratio26.8Nfvhvpq7.08.5-10.1 mg/dLPhosphorus3.72.6-4.7 mg/dLAlbumin Level3.43.4-5.0 g/dLPerforming Lab:see noteML - [facility] LBUA RANDOM W or MICROSCOPIC Reviewed date:08/21/2024 01:51:08 PM Interpretation: Performing Lab: Notes/Report: [facility] ,Color UrineLT. YELLOWYELLOWClarity UrineCLEARCLEARSpecific [place] Urine1.010 1.005-1.025pH Urine5.55.0-9.0Protein UrineNEGATIVENEG/TRACE mg/dLGlucose Urine JU857EXTGVZEB mg/dLBilirubin UrineNEGATIVENEGATIVEKetones UrineNEGATIVENEGATIVE mg/dLBlood UrineNEGATIVENEGATIVENitrite UrineNEGATIVENEGATIVEUrobilinogen Urine 0.20.2-1.0 EU/dLLeukocyte Esterase UrineNEGATIVENEGATIVEWBC UrineNONE SEENNONE SEEN #/HPFRBC Urine0-20-2 #/HPFBacteria UrineTRACENONE SEEN #/HPFMucus UrineNONE SEENNONE SEENSquamous Epithelial Cell UrineFEWNONE/RARE #/LPFCrystals Seen?None SeenNone Seen #/HPFCast Seen?NONE SEENNONE SEEN #/LPFPerforming Lab:see noteML - [facility] LBURIC ACID SERUM Reviewed date:08/21/2024 01:51:08 PM Interpretation: Performing Lab: Notes/Report: [facility] ,Uric Acid6.52.6-6.0 mg/dLPerforming Lab:see noteML - [facility] LB URINE T PROTEIN CREAT RATIO Reviewed date:08/21/2024 01:51:08 PM Interpretation: Performing Lab: Notes/Report: [facility] ,Total Protein Urine Random<6.0<=11.9 mg/dLCreatinine Urine Inxeig51.4420.00- 300.00 mg/dLPerforming Lab:see noteML - [facility] LBVITAMIN D 25 [place] Reviewed date:08/21/2024 01:51:08 PM Interpretation: Performing Lab: Notes/Report: [facility] ,Vitamin D45.3 <20 ng/mL Vit D deficient 20-<30 ng/mL Vit D insufficient 30-100 ng/mL Vit D sufficient >100 ng/mL Potential Toxicity Performing Lab:see noteML - [facility] LBCBC no Diff (Hemogram) Reviewed date:08/21/2024 01:51:08 PM Interpretation: Performing Lab: Notes/Report: [facility] ,White Blood Count9.14.0-11.0 10 3/uLRed Blood Count3.984.20-5.40 10 6/uL Jtmwybwcxi63.912.0-16.0 g/iQRujvbtkkgb41.136.0-48.0 %Mean Corpuscular Xtpyiz55.2 81.0-99.0 fLMean Corpuscular Qjcqbdkhba92.426.7-34.0 pgMean Corpuscular HGB Conc 31.129.9-35.2 g/dLRed Cell Distribution Width16.111.0-15.0 %Platelet Xachg231 150-450 10 3/uLMean Platelet Cplwjg73.49.5-13.5 fLPerforming Lab:see noteML - [facility] LBXR lumbar spine min 4V Reviewed date:09/03/2024 09:41:22 PM Interpretation: Performing Lab: Notes/Report: Source Facility: [facility]-[address] [place] [address] [place] [address] XRay Report Signed Patient: SAUL GUTIÉRREZ MR#: [id number] : 1945 Acct:[id number] Age/Sex: 79 / F ADM Date: 09/01/24 Loc: EC Attending Dr: Avani Gibbs M.D. Ordering Physician: Avani Gibbs M.D. Date of Service: 09/01/24 Procedure(s): XR lumbar spine min 4V Accession Number(s): [id number] cc: HEAVEN STALEY ; Avani Gibbs M.D. [place] [address] Patient Name: SAUL GUTIÉRREZ MRN: [facility]:[id number] date: 1945 Sex: F Assigned Patient Location: Current Patient Location: [place] Accession/Order Number: [id number] Exam Date: 09/01/2024 12:21 Report Date: 09/01/2024 [...] Adelaida Davis M.D.09/01/2024 12:24 PM Dictation Location: [place] [address] Electronically authenticated by: [id number] Y Date: 09/01/2024 12:24 Dictated By: Adelaida Davis M.D. Signed By: 09/01/24 1226 DD/ 1224 TD/TT: Front Desk Attendant:LIPID PROFILE Reviewed date:09/11/2024 01:05:42 PM Interpretation: Performing Lab: Notes/Report: [facility] ,Bumlprcfnbkdr31<=150 mg/bAXecrpwyxtnl939<=200 mg/dLHDL Lndqfnpskuu0807-67 mg/dL > or =60 mg/dl - LOW CARDIOVASCULAR RISK <40 mg/dl - HIGH CARDIOVASCULAR RISK LDL Cholesterol Mutabnzzzv19.8 <100 mg/dl OPTIMAL 100-129 mg/dl NEAR OR ABOVE OPTIMAL 130-159 mg/dl BORDERLINE HIGH 160-189 mg/dl HIGH >190 mg/dl VERY HIGH VLDL SHHSMUJZWOO59.2Chol HDL Ratio2.3 3.3 - 4.4 LOW RISK 4.4 - 7.1 AVERAGE RISK 7.1 - 11.0 MODERATE RISK >11.0 HIGH RISK Performing Lab:see noteML - [facility] LBMM tomosynthesis screening BI Reviewed date:09/26/2024 08:49:29 AM Interpretation: Performing Lab: Notes/Report: Source Facility: [facility]-[address] [place] [address] [place] [address] Mammography Report Signed Patient: SAUL GUTIÉRREZ MR#: [id number] : 1945 Acct:[id number] Age/Sex: 79 / F ADM Date: 09/25/24 Loc: RAD Attending Dr: HEAVEN STALEY Ordering Physician: HEAVEN STALEY Results: Date of Service: 09/25/24 Follow Up: Procedure(s): MM tomosynthesis screening BI Accession Number(s): [id number] cc: HEAVEN STALEY Patient Name: SAUL GUTIÉRREZ MR#: [id number] : 1945 Exam Date: 09/25/2024 Ordering Doctor: HEAVEN STALEY [facility] RADIOLOGY REPORT PROCEDURE: MM TOMOSYNTHESIS SCREENING [...] Treatments None Family Cancers None LOCATION: [facility] BREAST COMPOSITION: The breasts are [...] M.D. Signed By: 09/25/241652 DD/ 51 TD/TT: Front Desk Attendant:FERRITIN Reviewed date:10/09/2024 11:40:30 AM Interpretation: Performing Lab: Notes/Report: [facility] ,Dztpfsnu67.08.0-252.0 ng/mLPerforming Lab:see note - [facility] LB IRON AND TIBC Reviewed date:10/09/2024 11:40:30 AM Interpretation: Performing Lab: Notes/Report: [facility] ,Iron33.050.0-170.0 ug/dLTotal Iron Binding Zuaeedab619.0250.0-450.0 ug/dL Percent Iron Saturation8.8Performing Lab:see note - [facility] LBUA RANDOM W or MICROSCOPIC Reviewed date:10/09/2024 11:40:30 AM Interpretation: Performing Lab: Notes/Report: [facility] ,Color UrineYELLOWYELLOWClarity UrineCLEARCLEARSpecific [place] Urine1.015 1.005-1.025pH Urine6.05.0-9.0Protein UrineNEGATIVENEG/TRACE mg/dLGlucose Urine LJ999JGPGYUSC mg/dLBilirubin UrineNEGATIVENEGATIVEKetones UrineNEGATIVENEGATIVE mg/dLBlood UrineNEGATIVENEGATIVENitrite UrineNEGATIVENEGATIVEUrobilinogen Urine 0.20.2-1.0 EU/dLLeukocyte Esterase UrineNEGATIVENEGATIVEWBC Urine0-2NONE SEEN #/HPFRBC Urine0-20-2 #/HPFBacteria UrineNONE SEENNONE SEEN #/HPFMucus UrineNONE SEENNONE SEENSquamous Epithelial Cell UrineRARENONE/RARE #/LPFCrystals Seen?None SeenNone Seen #/HPFCast Seen?NONE SEENNONE SEEN #/LPFPerforming Lab:see noteML - [facility] LBVITAMIN D 25 [place] Reviewed date:10/09/2024 11:40:30 AM Interpretation: Performing Lab: Notes/Report: [facility] ,Vitamin D46.5 <20 ng/mL Vit D deficient 20-<30 ng/mL Vit D insufficient 30-100 ng/mL Vit D sufficient >100 ng/mL Potential Toxicity Performing Lab:see noteML - [facility] LBCBC no Diff (Hemogram) Reviewed date:10/09/2024 11:40:30 AM Interpretation: Performing Lab: Notes/Report: [facility] ,White Blood Count10.14.0-11.0 10 3/uLRed Blood Count4.004.20-5.40 10 6/uL Zqfzgqojrr63.112.0-16.0 g/xLRwpbuichco55.436.0-48.0 %Mean Corpuscular Vyzajl67.5 81.0-99.0 fLMean Corpuscular Vqniggnyuc59.826.7-34.0 pgMean Corpuscular HGB Conc 31.429.9-35.2 g/dLRed Cell Distribution Width15.211.0-15.0 %Platelet Lsdfc451 150-450 10 3/uLMean Platelet Fenbpn07.09.5-13.5 fLPerforming Lab:see noteML - [facility] LBPTH, Intact Reviewed date:10/10/2024 01:32:05 PM Interpretation: Performing Lab: Notes/Report: [facility] ,PTH, Xeoooq7093-42 pg/mL Performed at: - [facility] [address] [id number] Hand Paster: Ra Gonzalez PhD, Phone: [phone] Performing Lab:see note - [facility] LBCBC AUTO DIFF Reviewed date:03/30/2025 11:33:02 AM Interpretation: Performing Lab: Notes/Report: [facility] ,White Blood Count10.14.0-11.0 10 3/uLRed Blood Count4.244.20-5.40 10 6/uL Odqbznwsht96.712.0-16.0 g/eAMchvocemqj82.836.0-48.0 %Mean Corpuscular Puqpwg60.2 81.0-99.0 fLMean Corpuscular Tmioowkyge56.026.7-34.0 pgMean Corpuscular HGB Conc 31.129.9-35.2 g/dLRed Cell Distribution Width15.411.0-15.0 %Platelet Holib768 150-450 10 3/uLMean Platelet Volume9.99.5-13.5 fLNeutrophils Percent Auto69.2 43.0-75.0 %Lymphocytes Percent Auto16.820.5-60.0 %Monocytes Percent Auto6.51.7- 12.0 %Eosinophils Percent Auto6.70.9-7.0 %Basophils Percent Auto0.40.2-2.0 % Immature Granulocytes Pct Auto0.40.0-0.5 %Neutrophils Absolute Auto7.01.4-6.5 10 3/uLLymphocytes Absolute Auto1.71.2-3.8 10 3/uLMonocytes Absolute Auto0.70.3-0.8 10 3/uLEosinophils Absolute Auto0.70.0-0.7 10 3/uLBasophils Absolute Auto0.00.0- 0.1 10 3/uLImmature Granulocytes Abs Auto0.040.00-0.03 10 3/uLPerforming Lab:see noteML - [facility] LBIRON Reviewed date:03/30/2025 11:33:02 AM Interpretation: Performing Lab: Notes/Report: [facility] ,Iron55.050.0-170.0 ug/dLPerforming Lab:see noteML - [facility] LB VITAMIN D 25 [place] Reviewed date:04/02/2025 02:16:16 PM Interpretation: Performing Lab: Notes/Report: [facility] ,Vitamin D46.9 <20 ng/mL Vit D deficient 20-<30 ng/mL Vit D insufficient 30-100 ng/mL Vit D sufficient >100 ng/mL Potential Toxicity Performing Lab:see noteML - [facility] LBCT cervical spine wo con Reviewed date:12/07/2024 03:54:06 PM Interpretation: Performing Lab: Notes/Report: Source Facility: [facility]-[address] [place] [address] [place] [address] CT Scan Report Signed Patient: SAUL GUTIÉRREZ MR#: [id number] : 1945 Acct:[id number] Age/Sex: 79 / F ADM Date: 12/07/24 Loc: CT Attending Dr: Kurtis Ramey NP Ordering Physician: Kurtis Ramey NP Date of Service: 12/07/24 Procedure(s): CT cervical spine wo con Accession Number(s): [id number] cc: HEAVEN STALEY [place] [address] Patient Name: SAUL GUTIÉRREZ MRN: [id number] date: 1945 Sex: F Assigned Patient Location: CT Current Patient Location: CT Accession/Order Number: [id number] Exam Date: 12/07/2024 11:04 Report Date: 12/07/2024 [...] Davis M.D. 12/07/2024 11:12 AM Dictation Location: [place] [address] Electronically authenticated by: [id number] Y Date: 12/07/2024 11:12 Dictated By: Adelaida Davis M.D. Signed By: 12/07/24 1114 DD/ 1112 TD/TT: Front Desk Attendant:XR cervical spine 5V Reviewed date:11/16/2024 10:39:45 AM Interpretation: Performing Lab: Notes/Report: Source Facility: [place] [address] XRay Report Signed Patient: SAUL GUTIÉRREZ MR#: [id number] : 1945 Acct:[id number] Age/Sex: 79 / F ADM Date: 11/13/24 Loc: RAD Attending Dr: Kurtis Ramey [employer] Ordering Physician: Kurtis Ramey NP Date of Service: 11/13/24 Procedure(s): XR cervical spine 5V Accession Number(s): [id number] cc: HEAVEN STALEY Anna NP [place] [address] Patient Name: SAUL GUTIÉRREZ MRN: [id number] date: 1945 Sex: F Assigned Patient Location: RAD Current Patient Location: RAD Accession/Order Number: [id number] Exam Date: 11/13/2024 10:22 Report Date: 11/13/2024 [...] Davis M.D. 11/13/2024 10:27 AM Dictation Location: [place] [address] Electronically authenticated by: [id number] Y Date: 11/13/2024 10:27 Dictated By: Adelaida Davis M.D. Signed By: 11/13/24 1029 DD/ 1027 TD/TT: Front Desk Attendant:URINE T PROTEIN CREAT RATIO Reviewed date:10/09/2024 11:40:30 AM Interpretation: Performing Lab: Notes/Report: [facility] ,Total Protein Urine Vphjto71.7<=11.9 mg/dLCreatinine Urine Fdpwpp85.5320.00- 300.00 mg/dLProtein Creatinine Ratio Urine0.19Performing Lab:see noteML - [facility] LBURIC ACID SERUM Reviewed date:10/09/2024 11:40:30 AM Interpretation: Performing Lab: Notes/Report: [facility] ,Uric Acid6.12.6-6.0 mg/dLPerforming Lab:see noteML - [facility] LB RENAL FUNCTION PANEL Reviewed date:10/09/2024 11:40:30 AM Interpretation: Performing Lab: Notes/Report: [facility] ,Fdwbmj554081-625 mmol/LPotassium4.63.5-5.1 mmol/BOxppiqbd80215-104 mmol/LCarbon Lnmfrgk17.421.0-32.0 mmol/LAnion Gap10.5Vmcamfp1643-486 mg/dLBlood Urea Nitrogen 30.07.0-18.0 mg/dLCreatinine1.330.55-1.02 mg/dLEstimated GFR ( Ucewbzl13 >=60 mL/min/1.73m 2Estimated GFR (Non- Ame38>=60 mL/min/1.73m 2BUN Creatinine Ratio22.9Fblkyic1.98.5-10.1 mg/dLPhosphorus3.92.6-4.7 mg/dLAlbumin Level3.23.4-5.0 g/dLPerforming Lab:see noteML - [facility] LB MAGNESIUM Reviewed date:10/09/2024 11:40:30 AM Interpretation: Performing Lab: Notes/Report: [facility] ,Magnesium2.11.8-2.4 mg/dLPerforming Lab:see note - [facility] LBUS renal BI Reviewed date:09/11/2024 01:05:31 PM Interpretation: Performing Lab: Notes/Report: Source Facility: [facility]-[address] [place] [address] [place] [address] Ultrasound Report Signed Patient: SAUL GUTIÉRREZ MR#: [id number] : 1945 Acct:[id number] Age/Sex: 79 / F ADM Date: 09/11/24 Loc: US Attending Dr: TREVOR TIMMONS Ordering Physician: TREVOR TIMMONS Date of Service: 09/11/24 Procedure(s): US renal BI Accession Number(s): [id number] cc: HEAVEN STALEY ; TREVOR TIMMONS [place] [address] Patient Name: SAUL GUTIÉRREZ MRN: [id number] date: 1945 Sex: F Assigned Patient Location: US Current Patient Location: [place] Accession/Order Number: [id number] Exam Date: 09/11/2024 11:20 Report Date: 09/11/2024 [...] Adelaida Davis M.D.09/11/2024 11:30 AM Dictation Location: [place] [address] Electronically authenticated by: [id number] Y Date: 09/11/2024 11:30 Dictated By: Adelaida Davis M.D. Signed By: 09/11/24 1132 DD/ 1130 TD/TT: Front Desk Attendant:PTH, Intact Reviewed date:08/21/2024 01:51:08 PM Interpretation: Performing Lab: Notes/Report: [facility] ,PTH, Adjjlz58249-28 pg/mL Performed at: - [facility] [address] [id number] Hand Paster: Ra Gonzalez PhD, Phone: [phone] Performing Lab:see note - [facility] LBIRON AND TIBC Reviewed date:08/21/2024 01:51:08 PM Interpretation: Performing Lab: Notes/Report: [facility] ,Iron71.050.0-170.0 ug/dLTotal Iron Binding Floeoxfk433.0250.0-450.0 ug/dL Percent Iron Brfizxsbnp93.7Performing Lab:see noteML - [facility] LB TSH Reviewed date:03/30/2025 11:33:02 AM Interpretation: Performing Lab: Notes/Report: [facility] ,Thyroid Stimulating Hormone2.0240.358-3.740 uIU/mLPerforming Lab:see noteML - [facility] LBT4 Reviewed date:03/30/2025 11:33:02 AM Interpretation: Performing Lab: Notes/Report: [facility] ,T4 Thyroxine6.604.80-13.90 ug/dLPerforming Lab:see noteML - [facility] LBPROF 14(COMP METB) Reviewed date:03/30/2025 11:33:02 AM Interpretation: Performing Lab: Notes/Report: [facility] ,Rkbhef539867-420 mmol/LPotassium4.73.5-5.1 mmol/RYncerbgo64330-584 mmol/LCarbon Etwsdqk83.921.0-32.0 mmol/LAnion Gap13.5Pggbpsg6072-937 mg/dLBlood Urea Nitrogen 45.07.0-18.0 mg/dLCreatinine1.340.55-1.02 mg/dLEstimated GFR ( Mhnftox01 >=60 mL/min/1.73m 2Estimated GFR (Non- Ame38>=60 mL/min/1.73m 2BUN Creatinine Ratio33.1Dbnomsy1.98.5-10.1 mg/dLBilirubin Total0.50.2-1.0 mg/dL Aspartate Amino Tnkauadzwyw3495-35 U/LAlanine Zjdnxwnwvrumklri6202-18 U/L Alkaline Dewbgsmquhm65360-123 U/LTotal Protein7.26.4-8.2 g/dLAlbumin Level3.4 3.4-5.0 g/dLGlobulin3.8Albumin Globulin Ratio0.9Performing Lab:see noteML - [facility] LBLIPID PROFILE Reviewed date:03/30/2025 11:33:02 AM Interpretation: Performing Lab: Notes/Report: [facility] ,Bjierncnclbjs421<=150 mg/lHNpvmsxczzvd593<=200 mg/dLHDL Wqlyhakbapd5652-34 mg/dL > or =60 mg/dl - LOW CARDIOVASCULAR RISK <40 mg/dl - HIGH CARDIOVASCULAR RISK LDL Cholesterol Yocpjzcxhn03.6 <100 mg/dl OPTIMAL 100-129 mg/dl NEAR OR ABOVE OPTIMAL 130-159 mg/dl BORDERLINE HIGH 160-189 mg/dl HIGH >190 mg/dl VERY HIGH VLDL VCXRDPPKVBO98.4Chol HDL Ratio2.8 3.3 - 4.4 LOW RISK 4.4 - 7.1 AVERAGE RISK 7.1 - 11.0 MODERATE RISK >11.0 HIGH RISK Performing Lab:[facility] LBINSULIN Reviewed date:04/02/2025 02:16:16 PM Interpretation: Performing Lab: Notes/Report: [facility] ,Xkkrske01.22.6-24.9 uIU/mL Performed at: [address] [id number] Hand Paster: Ra Gonzalez PhD, Phone: [phone] Performing Lab:see note[facility] LBGLYCOHEMOGLOBIN A1C Reviewed date:03/30/2025 11:33:02 AM Interpretation: Performing Lab: Notes/Report: [facility] ,Glycohemoglobin A1C5.54.5-6.2 % ADA RECOMMENDED LIMIT 4.0 - 6.0 ADA THERAPEUTIC TARGET < 7.0 ACTION SUGGESTED > 7.0 Estimated Average Axmtdkc082Rhnvvxacek Lab:see sukumar - [facility] FREE T3 Reviewed date:03/30/2025 11:33:02 AM Interpretation: Performing Lab: Notes/Report: [facility] ,Free T32.512.18-3.98 pg/mLPerforming Lab:see [facility] Reason For Referral No Information Medications Medication [...] MOUTH FOUR TIMES A DAY; Duration: 90 daysActiveDiclofenac Sodium 75 MGTAKE 1 TABLET BY MOUTH TWICE A DAY; Duration: 90ActivePrasterone (DHEA) 50 MGas directed OrallyActiveJardiance 10 MG1 tablet Oral Once a day; Duration: 30 days ActiveFerrous Sulfate 325 (65 Fe) MG1 tablet Orally [...] tablet Orally Once a day; Duration: 10 days03/22/2023ctiveBiotin 85501 MCG1 tablet Orally Once a dayActiveoxyCODONE-Acetaminophen 5-325 MG1 tablet as needed Orally every 6 hrsActivetraZODone HCl 50 MG1 tablet at bedtime as needed Orally Once a day; Duration: 30 daysActiveLosartan Potassium 25 MG1 tablet Orally Once a day; Duration: 30 day(s)Active Immunizations Vaccine Route Administration Date Status Comme nts Flu, Fluad (29706) 65 yrs and older, single-dose syringe (0367-6951) IM Intramuscular 04/10/2024 Administered Pneumococcal (Prevnar 13)Qhmidaq4705/09/2015dministered Social History Tobacco Use: Social History Observation Description Date Details (start date - stop date) Never Smoker NA - NA Tobacco Use/Smoking Question Answer Notes Patient is a nonsmoker Alcohol Screen (Audit-C) Question Answer Notes Did you have a drink containing alcohol in the p ast year? No Retetz3AkjlelwgqhmvuxJcbkquuzNWIDF-T (Standard) Question Answer Notes Did you have a drink containing alcohol in the p ast year? No Svlifc0MmbflxriojygvqOdjhzdcz Problems Problem Type SNOMED Code ICD Code Onset Dates Problem Status W/U Status Risk Notes Problem Overweight (550112665) Overweight (E66.3) ActiveconfirmedProblemChronic diastolic heart failure (520829242)Chronic diastolic (congestive) heart failure (I50.32)ActiveconfirmedProblemBackache (951599609)Other dorsalgia (M54.89)ActiveconfirmedProblemAbnormal findings on diagnostic imaging of heart and coronary circulation (593579247)Abnormal findings on diagnostic imaging of heart and coronary circulation (R93.1)Active confirmedProblemCardiac implant (008895916)Presence of other cardiac implants and grafts (Z95.818)ActiveconfirmedProblemAtrial fibrillation (51015704)Atrial fibrillation (I48.91)ActiveconfirmedProblemGastroesophageal reflux disease (026689797)GERD (gastroesophageal reflux disease) (K21.9)ActiveconfirmedProblem Hypertension (54959438)HTN (hypertension) (I10)ActiveconfirmedProblemArthritis (8681949)Arthritis (M19.90)ActiveconfirmedProblemSleep apnea (53917366)Sleep apnea (G47.30)ActiveconfirmedProblemInsomnia (939555762)Insomnia (G47.00)Active confirmedProblemVentral hernia (179350717)Ventral hernia (K43.9)Activeconfirmed ProblemOsteoporosis (24306126)Osteoporosis (M81.0)ActiveconfirmedProblem Paresthesia (64422000)Paresthesia (R20.2)ActiveconfirmedProblemFolliculitis (41109773)Folliculitis (L73.9)ActiveconfirmedProblemSciatica (56899509)Sciatica (M54.30)ActiveconfirmedProblemLeft bundle branch block (71319255)Left bundle branch block (I44.7)ActiveconfirmedProblemRadiculopathy (61029398)Radiculopathy (M54.10)ActiveconfirmedProblemPain in limb (80983973)Leg pain, right (M79.604) ActiveconfirmedProblemSystolic heart failure (210809636)Systolic heart failure (I50.20)ActiveconfirmedProblemRestless legs (35094242)Restless legs syndrome (RLS) (G25.81)ActiveconfirmedProblemAllergic rhinitis (42523432)Allergic rhinitis, unspecified seasonality, unspecified trigger (J30.9)Activeconfirmed ProblemPersistent atrial fibrillation (353943619)Persistent atrial fibrillation (I48.19)ActiveconfirmedProblemChronic kidney disease stage 3 (disorder) (720691038)Stage 3 chronic kidney disease, unspecified whether stage 3a or 3b CKD (N18.30)Activeconfirmed Vital Signs Blood pressure diastolic 76 mm Hg 03/19/2025 Jjdajv16 in03/19/2025lood pressure wkqpicxe805 mm Hg03/19/20255769Ylxkhx373.6 lbs 03/19/2025BMI33.05 kg/m203/19/2025 Encounters Encounter Location Date Provider Diagnosis [facility] [address] [place] [address] 09/06/[address] [facility] [place] [address] [facility] [place] [address]/09/2024He[facility] [address] [place] [address]/10/2024[facility] [facility] [place] [address]/ [facility] [place] [facility] [place] [address]/05/2024Heaven Merrittomnia G47.00[facility] [address] [place] [address]/12/2024Heaven Lala (hypertension) I10 ; Senile osteoporosis M81.0 and Screening for breast cancer Z12.31[facility] [place] [address]/Heaven StaleyPersistent atrial fibrillation I48.19 ; Stage 3 chronic kidney disease, unspecified whether stage 3a or 3b CKD N18.30 ; Chronic diastolic (congestive) heart failure I50.32 and Arthritis M19.90[facility] [place] [address]Doaaron Alvarez Encounter for Medicare annual wellness exam Z00.00 Assessments Encounter Date Diagnosis (ICD Code) Assessment Notes Treatment Notes Treatment Clinical Notes Section Notes 09/05/2024 Encounter for Medicare annual we llness exam (ICD-10 - Z00.00) 03/19/2025Persistent atrial fibrillation (ICD-10 - I48.19)fu cardiology 03/19/2025Stage 3 chronic kidney disease, unspecified whether stage 3a or 3b CKD (ICD-10 - N18.30)seeing kidney dr09/05/2024HTN (hypertension) (ICD-10 - I10) 09/05/2024Senile osteoporosis (ICD-10 - M81.0)04/30/2025Insomnia (ICD-10 - G47.00)09/05/2024Screening for breast cancer (ICD-10 - Z12.31)03/19/2025hronic diastolic (congestive) heart failure (ICD-10 - I50.32)fu ffmybnhpfc43/20/2025 Arthritis (ICD-10 - M19.90) Plan Of Treatment Pending Test Test Name Order Date CMP (COMPLETE METABOLIC PANEL) 3 CMP (COMPLETE METABOLIC PANEL) 4 HEMOGLOBIN A1C (GLYCO) 03/19/2025 HEMOGLOBIN A1C (GLYCO) 09/14/2022 HEMOGLOBIN A1C (GLYCO) 09/05/2024 IRON, TOTAL 09/05/2024 IRON, TOTAL 09/14/2022 IRON, TOTAL 03/19/2025 LIPID PANEL (CHOL/TRIG/HDL/LDL) 09/06/19 25 LIPID PANEL (CHOL/TRIG/HDL/LDL) 03/19/20 25 LIPID PANEL (CHOL/TRIG/HDL/LDL) 09/15/19 23 CBC WITH DIFF (EXP 03/2025) 09/14/2022 VITAMIN D, 25 LEVEL (TOTAL) 03/19/2025 VITAMIN D, 25 LEVEL (TOTAL) 09/05/2024 Insulin Level 09/05/2024 Insulin Level 03/19/2025 Insulin Level 09/14/2022 STOOL OCCULT BLOOD 09/14/2022 XR DEXA BONE DENSITY 09/05/2024 THYROID PANEL (T4/TSH/FREE T3) 5 THYROID PANEL (T4/TSH/FREE T3) 3 THYROID PANEL (T4/TSH/FREE T3) 5 BI MAMMOGRAM SCREENING TOMOSYNTHESIS NIKOS ATERAL 09/05/2024 CMP (COMP MET HANSON) w/eGFR CKD-EPI 2024 CMP (COMP MET HANSON) w/eGFR CKD-EPI 2024 CBC WITH DIFF 03/19/2025 CBC WITH DIFF 09/05/2024 Insurance Providers Payer Name Payer Address Payer Phone Subscriber Number Group Number Insured Name Patient Relationship to Insured Coverage Start Date Coverage End Date [facility] MEDICARE ADV PLAN [address] [address] [place] [phone] [id number] Rasheed Gutiérrez - patient is the insured [...] atrial fibrillation I48.19 Surgical History Surgery Date(Month/Year) Bladder Sx Heart Cath08/23Gastric BypassBack SurgeryTonsils/ADnoidsHernia [id number] Watchman Left Atrial appendage deviceL4-S1 decompression and fusionHysterectomy Hospitalization History Reason Date(Month/Year) see above
--- OUTSIDE RECORDS SUMMARY | 2025-05-03 11:35 | XMS_ITS | Clinical Summary ---
Author Organization [facility] Healthcare Address [address] [place] [address] Care Team Providers Care Mailroom Coordinator Name Role Phone Heaven Calderon MD Unavailable [phone] Allergies Active AllergyReactionsCriticalityNoted ZpptYrgefpceAcbjmvsZsjndkb28/07/2015 Other reaction(s): Intolerance-unknown Jtcigkvknv50/22/2015 Other reaction(s): Dry cough XnsxhkctpqKhbgn42/03/2024 Medications MedicationSigDispense QuantityRefillsLast FilledStart DateEnd DateStatus pantoprazole [...] Recorded Sex Assigned at BirthNot on fileLegal CucJmfgma36/15/2023 8:28 PM EDTGender IdentityNot on fileSexual OrientationNot on file Last Filed Vital Signs Vital SignReadingTime TakenCommentsBlood Neckcrmp863/7808 8:17 AM EDT Auymg0977/19/2024 8:17 AM EDTTemperature--Respiratory Pcxn9184 8:30 AM EDTOxygen Poalfnszeh99%01/17/2024 8:17 AM EDTInhaled Oxygen Concentration-- Jobogu56.1 kg (185 lb 6.4 oz)01/17/2024 8:17 AM LYBBfgcki500.1 cm (5' 5 ) 01/17/2024 8:17 AM EDTBody Mass Index30.85001/17/2024 8:17 AM EDT Plan of Treatment Not on file Insurance Care Teams Team MemberRelationshipSpecialtyStart DateEnd Heaven Calderon MD [address] [place] [id number] Referring PhysicianFamily [facility]11/11/23
--- OUTSIDE RECORDS SUMMARY | 2025-05-03 11:46 | XMS_ITS | CCD ---
Author Organization [facility] CliniSywy Care Team Providers Care Fitting Supervisor Name Role Phone JOHNSON ., DR JAYLON Ruelas Admitting Unavailable ORNELAS ., DR JAYLON Ruelas Attending Unavailable [facility] Primary Care Unavailable ORNELAS ., DR JAYLON Ruelas Consulting Unavailable MICHELINE MOLINA Consulting Unavailable ORNELAS ., DR JAYLON Ruelas Admitting Unavailable ORNELAS ., DR JAYLON Ruelas Attending Unavailable [facility] Primary Care Unavailable RODRIGUEZ ., SABRINA Consulting Unavailable ORNELAS ., DR JAYLON Ruelas Admitting Unavailable ORNELAS ., DR JAYLON Ruelas Attending Unavailable [facility] Primary Care Unavailable RODRIGUEZ ., SABRINA Consulting Unavailable [facility] Primary Care Unavailable LAKSHMIPATHY ., NARENDRANATH Admitting Charity vailable LAKSHMIPATHY ., NARENDRANATH Attending Charity vailable LAKSHMIPATHY ., NARENDRANATH Consulting Charity vailable LAKSHMIPATHY ., NARENDRANATH Admitting Charity vailable LAKSHMIPATHY ., NARENDRANATH Attending Charity vailable [facility] Primary Care Unavailable LUÍS, HEAVEN Admitting Unavailable LUÍS, HEAVEN Attending Unavailable [facility] Primary Care Unavailable DR OSWALDO VALENZUELA Consulting Unavailable LUÍS HEAVEN Consulting Unavailable [facility] Primary Care Unavailable DAREK ., KEILY Admitting Unavailable DAREK ., KEILY Attending Unavailable DAREK ., KEILY Consulting Unavailable KELSIE DEL ANGEL Consulting Unavailable OSWALDO GARCÍA Attending Unavailable SANDIE PAGE Attending Unavailable HEAVEN STALEY Referring Unavailable SANDIE PAGE Attending Unavailable CARIDAD GARNER Attending Unavailable Heaven Steven Primary Care Provider Quita ROMO, Florina Bragg Attending Unavailable Quita ROMO, Florina Bragg Attending Unavailable Quita ROMO, Florina Bragg Attending Unavailable BIRD MADDEN Referring Unavailable NAVID, BIRD [...] BIRD Referring Unavailable NAVID, BIRD Referring Unavailable Luís ADAMS-C, Heaven Kay Primary Care Provider 1( [phone] Juliana Landeros MD Attending Provider Allergies Allergy ClassificationReported Allergen(s)Allergy TypeDate of OnsetReaction(s) Facility (5 sources)Codeine; Translations: [CODEINE]Drug Awwfmog49-60-8023QwbazYbkGood Samaritan Hospital (5 sources)CodeineDrug Vytisbj48-69-7820NtmTerisn Health System (6 sources)Lisinopril; Translations: [LISINOPRIL]Drug Hqqctvh92-19-7645JyqCxatkc Health System (4 sources)pregabalin; Translations: [PREGABALIN]Drug Dtpgkdi87-44-6669gxfchdaTriHealth McCull[facility] Medications Current Medications MedicationDrug Class(es)DatesSig (Normalized)Sig (Original)acetaminophen 325 mg / oxyCODONE hydrochloride 5 mg oral tablet (8 sources)Opioid AgonistStart: 80-09-7552gxof 1 tablet by mouth every eight hours as neededOxycodone-Acetaminophen (Percocet) 5-325 mg tablet Active 1 TAB PO Every 8 hours as needed 0 July 27, 2024 12:00am Complies with drug therapytake 1 tablet by mouth every four hours as needed for painoxyCODONE- acetaminophen (PERCOCET) 5-325 mg per tablet Take 1 tablet by mouth every 4 (four) hours as needed for pain. Activeallopurinol 100 mg oral tablet (1 source)Xanthine Oxidase InhibitorStart: 56-07-7895tbso 1 tablet by mouth once dailyAllopurinol 100 mg tablet Active 100 MG PO Daily 90 April 05, 2025 12:00am Complies with drugtherapyb complex vitamins capsule (5 sources)take 1 capsule by mouth in the morningb complex vitamins capsule Take 1 capsule by mouth in the morning. Activetake 1 capsule by mouth in the morning b complex vitamins capsule Take 1 capsule by mouth in the morning. 0 Active baclofen 10 mg oral tablet (3 sources)gamma-Aminobutyric Acid-ergic AgonistStart: 79-26-9097zzva 1 tablet by mouth once daily at bedtimeBaclofen 10 mg tablet Active 10 MG PO Daily at bedtime July 27, 2024 12:00am Complies with drug therapycalcium carbonate 648 mg oral tablet (6 sources)Start: 69-60-2875poof 1 tablet by mouth once dailyCalcium Carbonate 260 mg calcium (648 mg) tablet Active 500 MG PO Daily July 27, 2024 12:00amComplies with drug therapycalcium carbonate (CALCIUM 500 ORAL) Take by mouth daily. Activecalcium carbonate (CALCIUM 500 ORAL) Take by mouth daily. 0 ActiveCalcium Carbonate 260 mg calcium (648 mg) tablet (2 sources)Start: 85-67-5059efqi 1 tablet by mouth once dailyCalcium Carbonate 260 mg calcium (648 mg) tablet Active 500 MG PO Daily July 27, 2024 1:00am Start: 47-48-4044tgjl 1 tablet by mouth once dailyCalcium Carbonate 260 mg calcium (648 mg) tablet Active 500 MG PO Daily July 27, 2024 12:00am cholecalciferol 0.025 mg oral capsule (8 sources)Vitamin DStart: 81-10-8480rxpw 1 capsule by mouth once daily Cholecalciferol (Vitamin D3) 25 mcg (1,000 unit) capsule Active 25 MCG PO Daily July 272:00am Complies with drug therapycholecalciferol, vitamin D3, 5,000 units tablet 1 tablet (5,000 Units total) in the morning. Active diclofenac sodium 50 mg delayed release oral tablet (5 sources)Nonsteroidal Anti-inflammatory Drugtake 1 tablet by mouth in the morningdiclofenac (VOLTAREN) 50 mg EC tablet Take 1 tablet (50 mg total) by mouth in the morning. Activeempagliflozin 10 mg oral tablet (1 source)Sodium-Glucose Cotransporter 2 InhibitorStart: 48-65-2811pstr 1 tablet by mouth once dailyEmpagliflozin (Jardiance) 10 mg tablet Active 10 MG PO Daily April 05, 2025 12:00am Complies with drug therapyferrous sulfate 325 mg delayed release oral tablet (12 sources)Start: 86-45-8758gzzr 1 tablet by mouth once dailyFerrous Sulfate 325 mg (65 mg iron) tablet,delayed release (DR/EC) Active 325 MG PO Daily September 11:00pm Complies with drug therapyStart: 08-37-2506vhwo 1 tablet by mouth every other dayFerrous Sulfate 325 mg (65 mg iron) tablet Active 325 MG PO .QOD 45 1 October 18, 2024 11:00pm Complies with drug therapyStart: 07-27-2024 End: 19-75-1954Zqysjhp Sulfate 325 mg (65 mg iron)/5 mL solution Discontinued MG PO July 27, 2024 12:00am October 19, 2024 12:18pmStart: 45-75-5021Valshgq Sulfate 325 mg (65 mg iron)/5 mL [...] daily. 0 Activefurosemide 40 mg oral tablet (9 sources)Loop DiureticStart: 80-53-5065jxmh 1 tablet by mouth once daily Furosemide 40 mg tablet Active 40 MG PO Daily July 27, 2024 12:00am Complies with drug therapyStart: 03-18-2023 End: 56-04-7971lnsv 1 tablet by mouth once dailyfurosemide (LASIX) 40 mg tablet Take 1 tablet (40 mg total) by mouth daily. PT NEEDS APPT AND LABS FOR FURTHER REFILLS 30 tablet 1 06/08/2023 Activelactobacillus acidophilus [id number] unt oral capsule (5 sources)take 1 tablet by mouth once dailyLactobacillus acidophilus 10 billion cell capsule Take 1 tablet by mouth daily. Activelosartan potassium 25 mg oral tablet (3 sources)Angiotensin 2 Receptor BlockerStart: 30-39-0649vghx 1 tablet by mouth once dailyLosartan 25 mg tablet Active 25 MG PO Daily July 27, 2024 12:00am Complies with drug oeymsbh16 hr metoprolol succinate 50 mg extended release oral tablet (10 sources)beta-Adrenergic BlockerStart: 94-05-1743neta 1 tablet by mouth once dailyMetoprolol Succinate 50 mg tablet extended release 24 hr Active 50 MG PO Daily July 27, 2024 12:00am Complies with drug therapyStart: 09-10-2023 take 1 tablet by mouth every twenty-four hours in the morningmetoprolol succinate XL (TOPROL XL) 50 mg 24 hr tablet TAKE 1 TABLET (50 MG TOTAL) BY MOUTH IN THE MORNING 90 tablet 09/10/2023 ActiveStart: 04-28-2023 End: 03-05-9722daja 1 tablet by mouth every twenty-four hours in the morning metoprolol succinate XL (TOPROL XL) 50 mg 24 hr tablet Take 1 tablet (50 mg total) by mouth in the morning. 90 tablet 12/06/2023 ActiveMultivitamin (Daily Multi-Vitamin) tablet (3 sources)Start: 21-86-8318oufr 1 tablet by mouth once dailyMultivitamin (Daily Multi-Vitamin) tablet Active 1 TAB PO Daily July 27, 2024 12:00am Complies with drug therapyStart: 11-45-4755qkmd 1 tablet by mouth once daily Multivitamin (Daily Multi-Vitamin) tablet Active 1 TAB PO Daily July 27, 2024 1:00amStart: 72-16-5541aqpa 1 tablet by mouth once dailyMultivitamin (Daily Multi-Vitamin) tablet Active 1 TAB PO Daily July 27, 2024 12:00am pantoprazole 40 mg delayed release oral tablet (8 sources)Proton Pump InhibitorStart: 23-29-7773imac 1 tablet by mouth once dailyPantoprazole (Protonix) 40 mg tablet,delayed release (DR/EC) Active 40 MG PO Daily July 27, 2024 12:00am Complies with drug therapytake 1 dose by mouth in the morningpantoprazole (PROTONIX) [address] for susp in packet Take 1 packet (40 mg total) by mouth in the morning. Rasrny81 hr pramipexole dihydrochloride 1.5 mg extended release oral tablet (8 sources)Nonergot Dopamine AgonistStart: 97-26-8246uzna 1 tablet by mouth once daily at bedtimePramipexole (Mirapex Er) 1.5 mg tablet extended release 24 hr Active 1.5 MG PO Daily at bedtime July 27, 2024 12:00am Complies with drug therapytake 1.5 tablets by mouth in the morningpramipexole (MIRAPEX) 1 mg tablet Take 1.5 tablets (1.5 mg total) by mouth in the morning. Activepregabalin 50 mg oral capsule (5 sources)Start: 17-45-0685xsqysuuvhr (LYRICA) 50 mg capsule 1 capsule (50 mg total) once daily at bedtime. 04/27/2022 Activespironolactone 25 mg oral tablet (9 sources)Aldosterone AntagonistStart: 15-87-3335hpgw 1 tablet by mouth once dailySpironolactone 25 mg tablet Active 25 MG PO Daily July 27, 2024 12:00am Complies with drug therapyStart: 06-15-2022 End: 01-52-6606vsbu 1 tablet by mouth in the morningspironolactone (ALDACTONE) 25 mg tablet Indications: Chronic systolic CHF (congestive heart failure) ([facility]) Take 1 tablet (25 mg total) by mouth in the morning. Need labs and appt for more refills. 90 tablet 06/15/2023 Activesucralfate 1000 mg oral tablet (8 sources)Aluminum ComplexStart: 02-93-4119pfre 1 tablet by mouth four times daily as neededSucralfate (Carafate) 1 gram tablet Active 1 GM PO Four times daily as needed July 27, 2024 12:00am Complies with drug therapytake 1 tablet by mouth at bedtimesucralfate (CARAFATE) 1 gram tablet Take 1 tablet (1 g total) by mouth in the morning and 1 tablet (1 g total) before bedtime. Active traZODone hydrochloride 150 mg oral tablet (8 sources)Serotonin Reuptake InhibitorStart: 47-58-2597epaj 1 tablet by mouth once daily at bedtime as neededTrazodone 150 mg tablet Active 150 MG PO Daily at bedtime as needed July 27, 2024 12:00am Complies with drug therapytake 3 tablets by mouth once daily as neededtraZODone (DESYREL) 50 mg tablet Take 3 tablets (150 mg total) by mouth nightly as needed. Activeubidecarenone 100 mg oral capsule (8 sources)Start: 23-47-6813qzlo 10 capsules by mouth once dailyCoenzyme Q10 100 mg capsule Active 100 MG PO Daily July 27, 2024 12:00am Complies with drug therapytake 1 capsule by mouth once in the morningcoenzyme Q10 100 mg capsule Take 1 capsule (100 mg total) by mouth in the morning. Activevalsartan 40 mg oral tablet (5 sources)Angiotensin 2 Receptor BlockerStart: 16-56-8220ecoh 0.5 tablet by mouth in the morningvalsartan (DIOVAN) 40 mg tablet Take 0.5 tablets (20 mg total) by mouth in the morning. 45 tablet Active Completed/Discontinued Medications MedicationDrug Class(es)DatesSig (Normalized)Sig (Original)vitamin k1 5 mg oral tablet (3 sources)Warfarin Reversal Agent, Vitamin KStart: 07-27-2024 End: 10-57-0451uwnn 1 tablet by mouth once dailyPhytonadione (Vitamin K1) 5 mg tablet Discontinued 5 MG PO Daily July 27, 2024 12:00am April 05, 2025 9:01am Problems Active Problems Problem ClassificationProblemDateDocumented DateEpisodic/ChronicAnxiety disorders (5 sources)Anxiety; Translations: [Anxiety disorder, unspecified]Onset: 878088-02-9725BnrgdmzIispqvp dysrhythmias (20 sources)Unspecified atrial fibrillation; Translations: [Persistent atrial fibrillation]Onset: 06-06-2014 Resolved: 058092-39-4195YlbmpqwYrftzay kidney disease (6 sources)Chronic kidney disease stage 3; Translations: [Stage 3 chronic kidney disease]38-06-6447GgwvbipZxouibhkzx disorders (14 sources)Left bundle branch block; Translations: [Left bundle-branch block, unspecified]Onset: 07-13-2014 Resolved: 355482-17-3129NcadocaIermhotxli heart failure; nonhypertensive (19 sources)Chronic systolic heart failure; Translations: [Chronic systolic (congestive) heart failure]Onset: 281465-05-4087BivkoyuXlxnffvl atherosclerosis and other heart disease (2 sources)Atherosclerotic heart disease of [place] coronary artery without angina pectoris; Translations: [Atherosclerotic heart disease of [place] coronary artery without angina pectoris]Onset: 07-38-6661CxacuwgCbruidriut and other anemia (1 source)Anemia, unspecified; Translations: [ANEMIA UNSPECIFIED]Onset: 02-80-5999UdikitwxPbgxgjfo mellitus without complication (1 source)Other abnormal glucose; Translations: [OTHER ABNORMAL GLUCOSE]Onset: 44-80-1087ItmfzktrGwcedemdo of lipid metabolism (8 sources)Hyperlipidemia; Translations: [Hyperlipidemia, unspecified]Onset: 204339-54-0097FyobvxxPopxpmxyj hypertension (12 sources)Essential (primary) hypertension; Translations: [Essential hypertension]Onset: 86-50-4455UtqqrcwCtnvqvksyvpv with complications and secondary hypertension (6 sources)Chronic kidney disease due to hypertension; Translations: [Hypertensive chronic kidney disease withstage 1 through stage 4 chronic kidney disease, or unspecified chronic kidney disease]03-02-7257WgaxvkhAfadayyxwib deficiencies (6 sources)Iron deficiency; Translations: [Iron deficiency]75-96-3930Ytcaybbf Other circulatory disease (7 sources)Presence of other cardiac implants and grafts; Translations: [Other specified cardiac device in situ]Onset: 909838-96-7114VpkqgasYgvbv diseases of kidney and ureters (2 sources)Secondary hyperparathyroidism; Translations: [Secondary hyperparathyroidism of renal origin]80-51-3290GcgalplGpxra hereditary and degenerative nervous system conditions (5 sources)Restless legs; Translations: [Restless legs syndrome]Onset: 171287-09-6265BojdzlhYqaoz nervous system disorders (5 sources)Other chronic pain; Translations: [OTHER CHRONIC PAIN]Onset: 69-50-4148IszzpqfTywuw nutritional; endocrine; and metabolic disorders (5 sources)Obesity; Translations: [Obesity, unspecified]Onset: 10-11-2020 18-48-7221YxujmzkHtzrk nutritional; endocrine; and metabolic disorders (5 sources)Body mass index 30+ - obesity; Translations: [Body mass index (BMI) 34.0-34.9, adult]Onset: 398711-72-2051WyanflzKdbiv nutritional; endocrine; and metabolic disorders (2 sources)Hyperuricemia; Translations: [Hyperuricemia without signs of inflammatory arthritis and tophaceous disease]66-94-4240VhujrwcvRpimm screening for suspected conditions (not mental disorders or infectious disease) (1 source)Encounter for screening mammogram for malignant neoplasm of breast; Translations: [ENC SCR MAMMO MALIG NEOPLASM BREAST]Onset: 33-55-6306Yawxtzqt Darleen-; endo-; and myocarditis; cardiomyopathy (except that caused by tuberculosis or sexually transmitted disease) (12 sources)Cardiomyopathy; Translations: [Other cardiomyopathies]Onset: 06-06-2014 Resolved: 199404-51-6422MsbmsyrUfnfhwgg codes; unclassified (1 source)Sleep apnea, unspecified; Translations: [SLEEP APNEA UNSPECIFIED] Onset: 85-19-6948HdhbfjoLyiftjhu codes; unclassified (5 sources)Obstructive sleep apnea of adult; Translations: [Obstructive sleep apnea (adult) (pediatric)]Onset: 950701-84-1142QekjtptSvijllmzvvu; intervertebral disc disorders; other back problems (7 sources)Other spondylosis with radiculopathy, lumbar region; Translations: [Other intervertebral disc degeneration, lumbar region]Onset: 19-66-9290Wzkttqj Unclassified (1 source)LOW BACK PAIN, UNSPECIFIED; Translations: [LOW BACK PAIN, UNSPECIFIED] Onset: 27-10-2026Glilliyazmcm (2 sources)Longstanding persistent atrial fibrillation; Translations: [Longstanding persistent atrial fibrillation]Onset: 08-18-2024 Past or Other Problems Problem ClassificationProblemDateDocumented DateEpisodic/ChronicAbdominal hernia (2 sources)Ventral hernia without obstruction or gangrene; Translations: [Diaphragmatic hernia without obstruction or gangrene]Onset: 12-40-2088Wiwlzywl Abdominal pain (4 sources)Unspecified abdominal pain; Translations: [UNSPECIFIED ABDOMINAL PAIN]Onset: 81-68-1602MpncteeoLmzupai dysrhythmias (5 sources)Bradycardia; Translations: [Bradycardia, unspecified] Resolved: 176616-36-1060RbzsllyhWkqjmoe and fatigue (5 sources)Fatigue; Translations: [Other fatigue]Onset: 11-03-2018 Resolved: 716042-65-9395PoetbjzjDtzjv aftercare (1 source)Other joint terminal attack controller (current) drug therapy; Translations: [OTH C.O.D. AUDIT CLERK CURRENT DRUG THERAPY]Onset: 76-00-8195GhjxxfaaUtbfw connective tissue disease (1 source)Fibromyalgia; Translations: [FIBROMYALGIA]Onset: 48-45-7724Pzozuzep Other connective tissue disease (4 sources)Other muscle spasm; Translations: [OTHER MUSCLE SPASM]Onset: 54-86-2389UpqxxuonNeuyo gastrointestinal disorders (1 source)Bariatric surgery status; Translations: [BARIATRIC SURGERY STATUS] Onset: 31-79-7776QeymeuinNhjkf lower respiratory disease (10 sources)Dyspnea; Translations: [Shortness of breath]Onset: 07-02-2016 Resolved: 434071-44-6207MdxdjrwfBrarkpqp codes; unclassified (1 source)Acquired absence of other specified parts of digestive tract; Translations: [ACQ ABSENCE OTH PART DIGESTV TRACT]Onset: 02-98-5095Yumxvzgr Spondylosis; intervertebral disc disorders; other back problems (5 sources)Intervertebral disc disorders with radiculopathy, lumbar region; Translations: [Spinal stenosis, lumbar region without neurogenic claudication] Onset: 31-20-6614Gradaitg Results Test NameValueInterpretationReference RangeFacilityOffice Visiton 04-03-2025 Follow-up [id number] Radha Gutiérrez 1945 F Date Provider Department Center 04/03/2025 BIRD GEE Family History Problem Relation Age of Onset Heart failure Father Family Status - Relation Status Age at Mother Father Level of Service:92994 NC OFFICE/OUTPATIENT ESTABLISHED LOW MDM 20 MIN Reason for Visit and Comments: Follow-up [922454] - Patient is here today for 6 month follow up appointment with device check. Patient denies chest pain, SOB/MORIN, dizziness/lightheaded, fatigue, Cardiomyopathy [104] Congestive Heart Failure [127] Pacemaker [Other] LBBB [Other] Hypertension [494436] SA node dysfunction [Other] Hyperlipidemia [182]NormalUnUniversity Hospitals Geauga Medical CenterOrders Onlyon 85-68-0709Dwgpha [id number] Radha Gutiérrez 1945 Date Provider Department Center 03/14/2025 34594-WJGUSAMREEN FISHMAN HVC CARD [facility] Family History Problem Relation Age of Onset Heart failure Father Family Status - Relation Status Age at FatherNormalUniversWooster Community HospitalOrders Onlyon 33-67-3581Yrwuwi [id number] Radha Gutiérrez 1945 Provider Department Center 02/11/2025 241-BIRD MADDEN HVC CARD [facility] Family History Problem Relation Age of Onset Heart failure Father Family Status - Relation Status Age at FatherNormalUniWVUMedicine Barnesville HospitalOrders Onlyon 93-94-7941Lawbpg [id number] Radha Gutiérrez 1945 Provider Department Center 01/11/2025 241-NAVID BIRD HVC CARD [facility] Family History Problem Relation Age of Onset Heart failure Father Family Status - Relation Status [facility]rmalUniWVUMedicine [facility] HospitalErythrocyte distribution width Auto (RBC) [Ratio]on 00-22-3694Ogzapwlyjly distribution width (RBC) [Ratio] Erythrocyte distribution width [Ratio] by Automated jtiaxExqs66.0-15.0Wayne HospitalEstimated glomerular filtration rate (GFR) non- Americanon 54-62-0271CWU/1.73 sq M.predicted among non-blacks MDRD (S/P/Bld) [Vol rate/Area]Estimated glomerular filtration rate (GFR) non- Low>=60 mL/min/1.73m [address] [place], [place] [address]Hematocrit Auto (Bld) [Volume fraction]on 20-48-5493Durbchmtjn (Bld) [Volume fraction]Hematocrit [Volume Fraction] of Blood by Automated suhnkTjo11.0-48.0Wayne HospitalHemoglobin [Mass/volume] in Bloodon 28-96-6356Bayyspewnz (Bld) [Mass/Vol]Hemoglobin [Mass/volume] in TywvnPfo14.0-16.0Wayne HospitalIron binding capacity [Mass/volume] in Serum or Plasmaon 64-10-4441Dass binding capacity [Mass/Vol]Iron binding capacity [Mass/volume] in Serum or Kuqxry439.0-450.0Wayne HospitalIron saturation [Mass Fraction] in Serum or Plasmaon 75-26-9765Iems saturation [Mass fraction] Iron saturation [Mass Fraction] in Serum or PlasmaWayne HospitalLaboratory - Chemistry and Chemistry - challengeon 37-21-5812Fkopmot [Mass/Vol]3.2 g/dLLow3.4-5.0Wayne HospitalCalcium [Mass/Vol] 8.9 mg/dL8.5-10.1FParkview Health Montpelier HospitalChloride [Moles/Vol]105 mmol/L 98-107Wayne HospitalCO2 [Moles/Vol]28.4 mmol/L21.0-32.0 [facility] HospitalCreatinine [Mass/Vol]1.33 mg/dLHigh0.55-1.02 [facility] HospitalFerritin [Mass/Vol]13.0 ng/mL8.0-252.0Wayne HospitalGFR/1.73 sq M.predicted MDRD (S/P/Bld) [Vol rate/Area]47 mL/min/{1.73_m2}Low>=60 mL/min/1.73m 2FParkview Health Montpelier HospitalGlucose [Mass/Vol]85 mg/oK76-531HefydcoyuWayne HospitalIron [Mass/Vol]33.0 ug/dLLow50.0-170.0Wayne HospitalMagnesium [Mass/Vol]2.1 mg/dL 1.8-2.4FParkview Health Montpelier HospitalPotassium [Moles/Vol]4.6 mmol/L3.5-5.1 [facility] Systemodium [Moles/Vol]139 mmol/U189-447StqujfvqsWayne HospitalUrate [Mass/Vol]6.1 mg/dLHigh2.6-6.0Wayne HospitalUrea nitrogen [Mass/Vol]30.0 mg/dLHigh7.0-18.0Wayne HospitalUrea nitrogen/Creatinine [Mass ratio]22.6 mg/mgWayne HospitalLaboratory - Urinalysison 60-46-7892Qmjjfmh (U) [Mass/Vol]15.7 mg/dLHigh<=11.9Wayne HospitalLeukocytes [#/volume] corrected for nucleated erythrocytes in Blood by Automated counon 50-51-3263IXJ corrected for nucl RBC Auto (Bld) [#/Vol]Leukocytes [#/volume] corrected for nucleated erythrocytes in Blood by Automated coun4.0-11.0[facility] MCH Auto (RBC) [Entitic mass]on 63-53-9549PTZ (RBC) [Entitic mass]MCH [Entitic mass] by Automated count26.7-34.0Wayne HospitalMCHC Auto (RBC) [Mass/Vol]on 55-83-5117TYIS (RBC) [Mass/Vol]MCHC [Mass/volume] by Automated count29.9-35.2FParkview Health Montpelier HospitalMCV Auto (RBC) [Entitic vol]on 30-11-7213PXQ (RBC) [Entitic vol]MCV [Entitic volume] by Automated count 81.0-99.0Wayne HospitalNo Panel Informationon - Hydroxy Vitamin D Total46.5 ng/mLWayne HospitalComment on above:<20 ng/mL Vit D cfazshlnd28-<30 ng/mL Vit D wmzlkokymzvr57-465 ng/mL Vit D sufficient>100 ng/mL Potential ToxicityParathyroid Hormone (Intact)76 pg/mL Whagqmul52-58NhqxlxbajWayne HospitalComment on above:Performed at: - Lab[address] [id number] Director: Ra Gonzalez PhD, Phone: [phone] Level3.9 mg/dL2.6-4.7FParkview Health Montpelier HospitalUrine Random Ljegkutcyx06.53 mg/dL20.00-300.00Wayne HospitalPlatelet mean volume Auto (Bld) [Entitic vol]on 09-89-8463Jderoich mean volume (Bld) [Entitic vol]Platelet mean volume [Entitic volume] in Blood by Automated count9.5-13.5FParkview Health Montpelier Hospital Platelets Auto (Bld) [#/Vol]on 09-16-2281Lhfczogds (Bld) [#/Vol]Platelets [#/volume] in Blood by Automated qnfev953-461YbfsadagnWayne Hospital RBC Auto (Bld) [#/Vol]on 89-84-9781KIK (Bld) [#/Vol]Erythrocytes [#/volume] in Blood by Automated countLow4.20-5.40[facility] Systemerum or plasma anion gap determinationon 45-76-1553Efnrd gap [Moles/Vol]Serum or plasma anion gap determinationWayne HospitalUrine protein/creatinine ratioon 87-75-7624Vrmhdmb/Creatinine (U) [Ratio]Urine protein/creatinine ratio Wayne HospitalErythrocyte distribution width Auto (RBC) [Ratio]on 83-60-1156Jnqksbxtcmu distribution width (RBC) [Ratio]Erythrocyte distribution width [Ratio] by Automated auicrAsld59.0-15.0Wayne HospitalEstimated glomerular filtration rate (GFR) non- Americanon 25-96-5909FKJ/1.73 sq M.predicted among non-blacks MDRD (S/P/Bld) [Vol rate/Area]Estimated glomerular filtration rate (GFR) non- AmericanLow>=60 mL/min/1.73m 2FParkview Health Montpelier HospitalHematocrit Auto (Bld) [Volume fraction]on 37-97-2218Piczwqqhai (Bld) [Volume fraction]Hematocrit [Volume Fraction] of Blood by Automated bkvzgPgn66.0-48.0Wayne HospitalHemoglobin [Mass/volume] in Bloodon 84-39-0016Fqlasmunjc (Bld) [Mass/Vol] Hemoglobin [Mass/volume] in HhwaiHdv67.0-16.0[facility] Iron binding capacity [Mass/volume] in Serum or Plasmaon 62-11-0172Ubbz binding capacity [Mass/Vol]Iron binding capacity [Mass/volume] in Serum or Plasma 250.0-450.0Wayne HospitalIron saturation [Mass Fraction] in Serum or Plasmaon 82-61-4704Ypdi saturation [Mass fraction]Iron saturation [Mass Fraction] in Serum or PlasmaWayne HospitalLaboratory - Chemistry and Chemistry - challengeon 20-06-0822Vcxvptn [Mass/Vol]3.4 g/dL 3.4-5.0Way[facility] HospitalCalcium [Mass/Vol]9.0 mg/dL8.5-10.1 [facility] HospitalChloride [Moles/Vol]108 mmol/QCssz20-480 [facility] HospitalCO2 [Moles/Vol]26.5 mmol/L21.0-32.0Way[facility] HospitalCreatinine [Mass/Vol]1.36 mg/dLHigh0.55-1.02Wayne HospitalFerritin [Mass/Vol]17.0 ng/mL8.0-252.0Wayne HospitalGFR/1.73 sq M.predicted MDRD (S/P/Bld) [Vol rate/Area]45 mL/min/{1.73_m2}Low>=60 mL/min/1.73m 2FParkview Health Montpelier HospitalGlucose [Mass/Vol]96 mg/aL02-203HbmvlplhdWayne HospitalIron [Mass/Vol]71.0 ug/dL50.0-170.0Wayne HospitalMagnesium [Mass/Vol]2.4 mg/dL 1.8-2.4FParkview Health Montpelier HospitalPotassium [Moles/Vol]4.7 mmol/L3.5-5.1 [facility] Systemodium [Moles/Vol]140 mmol/O791-365MiezwvferWayne HospitalUrate [Mass/Vol]6.5 mg/dLHigh2.6-6.0Wayne HospitalUrea nitrogen [Mass/Vol]36.0 mg/dLHigh7.0-18.0Wayne HospitalUrea nitrogen/Creatinine [Mass ratio]26.5 mg/mgWayne HospitalLeukocytes [#/volume] corrected for nucleated erythrocytes in Blood by Automated counon 72-71-2608XIW corrected for nucl RBC Auto (Bld) [#/Vol]Leukocytes [#/volume] corrected for nucleated erythrocytes in Blood by Automated coun4.0-11.0[facility] HospitalH Auto (RBC) [Entitic mass]on 97-89-0251QMA (RBC) [Entitic mass]MCH [Entitic mass] by Automated count 26.7-34.0[facility] HospitalHC Auto (RBC) [Mass/Vol]on 22-70-2183HXBK (RBC) [Mass/Vol]MCHC [Mass/volume] by Automated count29.9-35.2 [facility] HospitalV Auto (RBC) [Entitic vol]on 83-85-1073IEK (RBC) [Entitic vol]MCV [Entitic volume] by Automated count81.0-99.0Wayne HospitalNo Panel Informationon 469716-Qsnzurc Vitamin D Total45.3 ng/mLWayne HospitalComment on above:<20 ng/mL Vit D rlozteexm75-<30 ng/mL Vit D tckcgiiuuojo73-100 ng/mL Vit D sufficient>100 ng/mL Potential ToxicityParathyroid Hormone (Intact)106 pg/nLRwukalye85-97CdfdyccusWayne HospitalComment on above:Performed at: [facility] [id number] Director: Ra Gonzalez PhD, Phone: [phone] Level3.7 mg/dL2.6-4.7FParkview Health Montpelier HospitalUrine Random Xalfthcsow91.44 mg/dL20.00-300.00Wayne HospitalUrine Random Total Protein<6.0 mg/dL<=11.9Wayne HospitalOffice Visiton 33-28-6068Czxkos-up [id number] Radha Gutiérrez 1945 F Date Provider Department Center 08/18/2024 [id number]-UEZGZVDANII SANCHEZ Family History Problem Relation Age of Onset Heart failure Father Family Status - Relation Status Age at Father Level of Service:08587 NC OFFICE/OUTPATIENT ESTABLISHED LOW MDM 20 [facility] CenterPlatelet mean volume Auto (Bld) [Entitic vol] on 07-65-1347Arjhxkfi mean volume (Bld) [Entitic vol]Platelet mean volume [Entitic volume] in Blood by Automated count9.5-13.5FParkview Health Montpelier HospitalPlatelets Auto (Bld) [#/Vol]on 44-35-7785Zlovarihs (Bld) [#/Vol]Platelets [#/volume] in Blood by Automated -175YloxugrkqWayne Hospital RBC Auto (Bld) [#/Vol]on 64-81-7620XAU (Bld) [#/Vol]Erythrocytes [#/volume] in Blood by Automated countLow4.20-5.40[facility] Systemerum or plasma anion gap determinationon 55-08-1001Cuuqq gap [Moles/Vol]Serum or plasma anion gap determinationWayne HospitalINSULINon 09-23-2022 Insulin7.9 uIU/mLNormal2.6-24.9The [facility] HospitalComment on above:Performed By: #### INSULIN ####[facility] Egrmldonog[address] [place], [place] [address]Dr. Ravin ChangCBC AUTO DIFFon 04-38-0776YMLX #0.0 103/ulNormal0.0-0.1 The [facility] HospitalComment on above:Performed By: #### CBC ####[facility] Lqlyxyfvul[address] [place], [place] [address]DrJon Dior Basophils/100 WBC (Bld)0.4 %Normal0.2-2.0The [facility] HospitalComment on above: Performed By: #### CBC ####[facility] Gnpfyomuqd259[address] [place], [place] [address]DrJon ChangEO #0.6 103/ulNormal0.0-0.7The [facility] HospitalComment on above:Performed By: #### CBC ####[facility] Arfqkenfou9[address] [place], [place] [address]Dr.Ravin ChangEosinophils/100 WBC (Bld)6.6 %Normal0.9-7.0The [facility] HospitalComment on above:Performed By: #### CBC ####[facility] Cnjgydmmgu253[address] [place], [place] [address]DrJon ChangErythrocyte distribution width (RBC) [Ratio]16.2 %Critically high11.0-15.0The [facility] HospitalComment on above:Performed By: #### CBC ####[facility] Sydrnujtyf076[address] [place], [place] [address]Dr. Ravin ChangHematocrit (Bld) [Volume fraction]43.3 %Qgpbzc84.0-48.0The [facility] HospitalComment on above:Performed By: #### CBC ####[facility] Mwnfyvpkrk529[address] [place], [place] [address]Dr.Ravin ChangHemoglobin (Bld) [Mass/Vol]13.4 g/hCOptupb10.0-16.0The [facility] HospitalComment on above: Performed By: #### CBC ####[facility] Rmznadefsr98[address] [place], [place] [address]Dr.Yilan ChangIG #0.05 10e3/ulCritically high0.00-0.03 The [facility] HospitalComment on above:Performed By: #### CBC ####[facility] Weuusbspxx07[address] [place], [place] [address]Dr.Ravin ChangIG % 0.5 %Normal0.0-0.5The [facility] HospitalComment on above:Performed By: #### CBC ####[facility] Zmjentlote365[address] [place], [place] [address]Dr. Ravin ChangLYMPH #2.1 103/ulNormal1.2-3.8The [facility] HospitalComment on above: Performed By: #### CBC ####[facility] Rivnevrfrc158[address] [place], [place] [address]Dr.Ravin ChangLymphocytes/100 WBC (Bld)23.1 %Normal 20.5-60.0The [facility] HospitalComment on above:Performed By: #### CBC ####[facility] Mqmghpwsdi8824[address] [place], [place] [address]Dr. Ravin ChangMANUAL DIFF REQNONormalThe [facility] HospitalComment on above: Performed By: #### CBC ####[facility] Mvlxkvnjmw[address] [place], [place] [address]Dr.Ravin DiorH (RBC) [Entitic mass]29.5 pgNormal 26.7-34.0The [facility] HospitalComment on above:Performed By: #### CBC ####[facility] [address] [address]Dr. Ravin DiorHC (RBC) [Mass/Vol]30.9 g/yJFnrinx81.9-35.2The [facility] Comment on above:Performed By: #### CBC ####[facility] Bhyertbhsj335[address] [place], [place] [address]Dr.Ravin DiorMCV (RBC) [Entitic vol]95.4 fL Gagqso14.0-99.0The [facility] HospitalComment on above:Performed By: #### CBC ####[facility] Ptccsptrmx98[address] [place], [place] [address]Dr. Ravin DiorMONO #0.5 103/ulNormal0.3-0.8The [facility] HospitalComment on above: Performed By: #### CBC ####[facility] Nciwiuqfcq[address] [place], [place] [address]Dr.Ravin DiorMonocytes/100 WBC (Bld)5.8 %Normal 1.7-12.0The [facility] HospitalComment on above:Performed By: #### CBC ####[facility] Skwtmopqot[address] [place], [place] [address]Dr. Ravin DiorNEUT #5.8 103/ulNormal1.4-6.5The [facility] HospitalComment on above: Performed By: #### CBC ####[facility] Xurpayiled210[address] [place], [place] [address]Dr.Ravin ChangNeutrophils/100 WBC (Bld)63.6 %Normal 43.0-75.0The [facility] HospitalComment on above:Performed By: #### CBC ####[facility] Ppksfqmwif508[address] [place], [place] [address]Dr. Ravin DiorPlatelet mean volume (Bld) [Entitic vol]10.7 fLNormal9.5-13.5The [facility] HospitalComment on above:Performed By: #### CBC ####[facility] [address]lu[address] [place] [address]Dr.Ravin DiorPLT223 103/ul Qkrrdj894-725Foo [facility] HospitalComment on above:Performed By: #### CBC ####[facility] Z[address]kung[address] [place] [address]DrViky DiorRBC4.54 106/ulNormal4.20-5.40The [facility] HospitalComment on above: Performed By: #### CBC ####[facility] [address]fs[address] [place] [address]Dr.Ravin ChangWBC9.2 103/ulNormal4.0-11.0The [facility] HospitalComment on above:Performed By: #### CBC ####[facility] [address] [place] [address]DrJon Black THYROXINE INDEX T7on 64-24-8214OYD9.29Eoszyy4.30-4.50The [facility] HospitalCombronson south haven hospital on above:Performed By: #### CMP, T7, TSH, LIPID #### [facility] [address] [address] [address] Ravin DiorT3U33.0 %Gdfcaq61.0-39.0The [facility] on above: Performed By: #### CMP, T7, TSH, LIPID #### [facility] [address] [address] [address] Ravin DiorT4 [Mass/Vol]7.40 ug/dLNormal4.80-13.90The [facility] Comment on above:Performed By: #### CMP, T7, TSH, LIPID #### [facility] [address] [address] [address] Ravin DiorGLYCOHEMOGLOBIN A1Con 17-32-0589SUH RECOMMENDATIONSEE BELOWNormal The [facility] HospitalCombronson [facility] on above:Result Comment: ADA RECOMMENDED LIMIT 4.0 - 6.0 ADA THERAPEUTIC TARGET < 7.0 ACTION SUGGESTED > 7.0Performed By: #### A1C ####[facility] [address] [place] [address]Dr. Ravin ChangGlucose [Mass/Vol]105 mg/dLSamaritan North Health CenterComment on above:Performed By: #### A1C ####[facility] Rddasqctaq[address] [place], [place] [address]Dr.Ravin DiorHbA1c (Bld) [Mass fraction]5.3 %Normal 4.5-6.2The [facility] HospitalComment on above:Performed By: #### A1C ####[facility] [address]lncwqamxh[address] [place], [place] [address]Dr.Novalan ChangIRONon 37-79-0018Owvr [Mass/Vol]81.0 ug/yTUcjcpk60.0-170.0The [facility] HospitalComment on above:Performed By: #### IRON ####[facility] Suoxfxksip[address] [place], [place] [address]Dr. Ravin ChangLIPID PROFILEon 45-42-8308HQMT-HDL RATIO NORMSEE [facility] HospitalComment on above:Result Comment: 3.3 - 4.4 LOW RISK 4.4 - 7.1 AVERAGE RISK 7.1 - 11.0 MODERATE RISK >11.0 HIGH RISKPerformed By: #### CMP, T7, TSH, LIPID ####[facility] [address]ep[address] [place] [address]Dr. Ravin ChangCholesterol [Mass/Vol]159 mg/dLNormal<=200The [facility] HospitalCombronson south haven hospital on above:Performed By: #### CMP, T7, TSH, LIPID ####[facility] Nrcmzvivyi[address] [place], [place] [address]Dr. Yilan ChangCholesterol in HDL [Mass/Vol]47 mg/rKIjrggl60-86Jys [facility] on above:Performed By: #### CMP, T7, TSH, LIPID ####[facility] Obkhbpssru[address] [place], [place] [address]Dr. Novalan ChangCholesterol in LDL [Mass/Vol]96.4 mg/dLSamaritan North Health Center Comment on above:Performed By: #### CMP, T7, TSH, LIPID ####[facility] [address] [place], [place] [address]Sd. Ravin Dior Cholesterol.total/Cholesterol in HDL [Mass ratio]3.4 {ratio}NormalVeterans Health Administration on above:Performed By: #### CMP, T7, TSH, LIPID ####[facility] [address]zy[address] [place] [address]Dr. Ravin ChangHDL NORMAL> or = 60 mg/dl - LOW CARDIOVASCULAR RISK <40 mg/dl - HIGH CARDIOVASCULAR RISKSamaritan North Health CenterComment on above:Performed By: #### CMP, T7, TSH, LIPID ####[facility] [address]kaypu[address] [place] [address]Dr. Ravin DiorLDL CALC NORMALSEE BELOWSamaritan North Health CenterComment on above:Result Comment: <100 mg/dl OPTIMAL 100 - 129 mg/dl NEAR OR ABOVE OPTIMAL 130 - 159 mg/dl BORDERLINE HIGH 160 - 189 mg/dl HIGH >190 mg/dl VERY HIGHPerformed By: #### CMP, T7, TSH, LIPID ####[facility] [address]krj[address] [place] [address]Dr. Ravin DiorTriglyceride [Mass/Vol]78 mg/dLNormal<=150[facility] on above:Performed By: #### CMP, T7, TSH, LIPID ####[facility] [address]ppyb[address] [place] [address]Dr. Ravin DiorVLDL CALC15.6 mg/dLNoCleveland Clinic Children's Hospital for RehabilitationComment on above:Performed By: #### CMP, T7, TSH, LIPID ####[facility] [address]chusov[address] [place] [address]Dr. Ravin DiorMG MAMM SCREEN 3D NIKOS CADon 48-64-1347BH MAMM SCREEN 3D NIKOS CADPatient: BROCK RADHA ReddyViky Exam Date: 09/22/2022 : 1945 Gender:F [facility] : [facility] Admission #: [id number] Family : Order #: [id number] CLICK HERE TO VIEW EXAM RADIOLOGY REPORT [...] Treatments None Family Cancers None LOCATION: [facility] BREAST COMPOSITION: Almost entirely fatty. FINDINGS: [...] by: Oswaldo Valenzuela M.D. on 09/22/2022 at 17:02Samaritan North Health CenterPROF 14(COMP METB)on 76-68-3155Qrbqmmc [Mass/Vol]3.3 g/dLCritically low 3.4-5.0[facility] on above:Performed By: #### CMP, T7, TSH, LIPID #### [facility] [address] [place] [address] Dr. Ravin DiorAlbumin/Globulin [Mass ratio]0.7 {ratio}NormalThe [facility] on above:Performed By: #### CMP, T7, TSH, LIPID #### [facility] [address] [address] [address] Ravin [place] [Catalytic activity/Vol]207 U/LCritically yrmq21-630Swm [facility] on above:Performed By: #### CMP, T7, TSH, LIPID #### [facility] [address] [address] [address] Ravin Anton [Catalytic activity/Vol]47 U/OSmochn71-16Cdm [facility] on above:Performed By: #### CMP, T7, TSH, LIPID #### [facility] [address] [address] [address] Ravin Salason gap [Moles/Vol]11.5 mmol/LNormalThe [facility] Comment on above:Performed By: #### CMP, T7, TSH, LIPID #### [facility] [address] [address] [address] Ravin DiorAST [Catalytic activity/Vol]35 U/CIsfohj51-27Xxl [facility] HospitalComment on above:Performed By: #### CMP, T7, TSH, LIPID #### [facility] [address] [place] [address] Dr. Ravin DiorBilirubin [Mass/Vol]0.6 mg/dLNormal0.2-1.0[facility] Comment on above:Performed By: #### CMP, T7, TSH, LIPID #### [facility] [address] [place] [address] Dr. Ravin DiorCalcium [Mass/Vol]9.2 mg/dLNormal8.5-10.1[facility] Comment on above:Performed By: #### CMP, T7, TSH, LIPID #### [facility] [address] [place] [address] Dr. Ravin DiorChloride [Moles/Vol]109 mmol/LCritically wopf02-099Ple [facility] HospitalComment on above:Performed By: #### CMP, T7, TSH, LIPID #### [facility] [address] [place] [address] Dr. Ravin DiorCO2 [Moles/Vol]27.7 mmol/GZeikpq05.0-32.0The [facility] Comment on above:Performed By: #### CMP, T7, TSH, LIPID #### [facility] [address] [place] [address] Dr. Ravin DiorCreatinine [Mass/Vol]0.94 mg/dLNormal0.55-1.02The [facility] HospitalComment on above:Performed By: #### CMP, T7, TSH, LIPID #### [facility] [address] [place] [address] Dr. Ravin StoneGFR-AF TOGOLESE>60Normal>=60The Protestant Hospitalment on above:Performed By: #### CMP, T7, TSH, LIPID #### [facility] [address] [address] [address] Ravin StoneGFR-NON AF DZRMEJXW26 mL/min/1.32m9Tbbkqspjcq low>=60The [facility] HospitalComment on above:Performed By: #### CMP, T7, TSH, LIPID #### [facility] [address] [place] [address] Dr. Ravin DiorGlobulin (S) [Mass/Vol]4.7 g/dLNormalThe [facility] HospitalComment on above:Performed By: #### CMP, T7, TSH, LIPID #### [facility] [address] [place] [address] Dr. Ravin DiorGlucose [Mass/Vol]95 mg/yOJiedfe19-083OtwZanesville City Hospital Comment on above:Performed By: #### CMP, T7, TSH, LIPID #### [facility] [address] [place] [address] Dr. Ravin DiorPotassium [Moles/Vol]4.2 mmol/LNormal3.5-5.1The [facility] Comment on above:Performed By: #### CMP, T7, TSH, LIPID #### [facility] [address] [place] [address] Dr. Ravin DiorProtein [Mass/Vol]8.0 g/dLNormal6.4-8.2The [facility] Comment on above:Performed By: #### CMP, T7, TSH, LIPID #### [facility] [address] [place] [address] Dr. Ravin DiorSodium [Moles/Vol]144 mmol/CJyygcz530-441PadZanesville City Hospital Comment on above:Performed By: #### CMP, T7, TSH, LIPID #### [facility] [address] [place] [address] Dr. Ravin DiorUrea nitrogen [Mass/Vol]21.0 mg/dLCritically high7.0-18.0The [facility] HospitalComment on above:Performed By: #### CMP, T7, TSH, LIPID #### [facility] [address] [place], [place] [address] Dr. Ravin DiorUrea nitrogen/Creatinine [Mass ratio]22.3 mg/mgNormalThe [facility] HospitalComment on above:Performed By: #### CMP, T7, TSH, LIPID #### [facility] [address] [address] [address] Ravin Prather 69-38-2917BAX5.085 uIU/mLNormal0.358-3.740The [facility] HospitalComment on above:Performed By: #### CMP, T7, TSH, LIPID #### [facility] [address] [address] [address] Ravin DiorCT ABD/PELVIS WO CONon 12-25-9429LW ABD/PELVIS WO CON Begin Addendum #1 Addendum [...] was used, including Automated Exposure Control. FINDINGS: Petrophysicist: No pertinent findings, which are not already [...] sac of the largest most superior hernia.NormalThe [facility] AUTO DIFFon 16-67-4831UPRC #0.0 103/ulNormal0.0-0.1The [facility] HospitalComment on above: Performed By: #### CBC ####[facility] [address] [address]Dr.Yilan ChangBasophils/100 WBC (Bld)0.2 %Normal 0.2-2.0The [facility] HospitalComment on above:Performed By: #### CBC ####[facility] [address]mw[address] [place] [address]Dr.Yilan ChangEO # 0.1 103/ulNormal0.0-0.7The [facility] HospitalComment on above:Performed By: #### CBC ####[facility] B[address]ospkhky[address] [place] [address]Dr. Yilan ChangEosinophils/100 WBC (Bld)1.4 %Normal0.9-7.0The [facility] Comment on above:Performed By: #### CBC ####[facility] Iyeylbisfy[address] [place], [place] [address]Dr.Novalilliana ChangErythrocyte distribution width (RBC) [Ratio]13.7 %Vjfnxn18.0-15.0The [facility] HospitalComment on above: Performed By: #### CBC ####[facility] Gfqtxxakde[address] [place], [place] [address]Dr.Novalilliana ChangHematocrit (Bld) [Volume fraction]44.4 % Ndlvea18.0-48.0The [facility] HospitalComment on above:Performed By: #### CBC ####[facility] [address]luejsy[address] [place], [place] [address]Dr. Novalilliana ChangHemoglobin (Bld) [Mass/Vol]14.7 g/bWMwljpz81.0-16.0The [facility] HospitalComment on above:Performed By: #### CBC ####[facility] Jrztlvsycv178[address] [place], [place] [address]Dr.Ravin ChangIG #0.05 10e3/ulCritically high0.00-0.03The [facility] HospitalComment on above:Performed By: #### CBC ####[facility] Vjpjpixvyh[address] [place], [place] [address]Dr.Ravin ChangIG %0.5 %Normal0.0-0.5The [facility] HospitalComment on above: Performed By: #### CBC ####[facility] Vhxmrqxyfb[address] [place], [place] [address]Dr.Ravin ChangLYMPH #1.7 103/ulNormal1.2-3.8The [facility] HospitalComment on above:Performed By: #### CBC ####[facility] Racgjkwtuw[address] [place], [place] [address]Dr.Ravin DiorLymphocytes/100 WBC (Bld)17.1 %Critically low20.5-60.0The [facility] HospitalComment on above: Performed By: #### CBC ####[facility] Krlausjtaa[address] [place], [place] [address]Dr.Ravin ChangMANUAL DIFF REQNONormalThe [facility] HospitalComment on above:Performed By: #### CBC ####[facility] [address]thftted[address] [address]Dr.Ravin DiorH (RBC) [Entitic mass]30.7 rqWicjly84.7-34.0The [facility] HospitalComment on above: Performed By: #### CBC ####[facility] [address]qh[address] [address]Dr.Ravin OviHC (RBC) [Mass/Vol]33.1 g/dLNormal 29.9-35.2The [facility] HospitalComment on above:Performed By: #### CBC ####[facility] [address]ecw[address] [address]Dr. Ravin OviV (RBC) [Entitic vol]92.7 iQZkrigc49.0-99.0The [facility] Comment on above:Performed By: #### CBC ####[facility] Rnbcbssnlk[address] [place], [place] [address]Dr.Ravin OviMONO #0.6 103/ulNormal0.3-0.8 [facility] HospitalComment on above:Performed By: #### CBC ####[facility] Mqhyuhwcjy[address] [place], [place] [address]Dr.Ravin Dior Monocytes/100 WBC (Bld)5.7 %Normal1.7-12.0The [facility] HospitalComment on above: Performed By: #### CBC ####[facility] Wccudcykkq[address] [place], [place] [address]Dr.Ravin OviNEUT #7.7 103/ulCritically high1.4-6.5 The [facility] HospitalComment on above:Performed By: #### CBC ####[facility] Jzcbmzigay[address] [place], [place] [address]DrVikyRavin Ovi Neutrophils/100 WBC (Bld)75.1 %Critically high43.0-75.0The [facility] Comment on above:Performed By: #### CBC ####[facility] Eznjzvodsg[address] [place], [place] [address]DrVikyRavin OviPlatelet mean volume (Bld) [Entitic vol]10.4 fLNormal9.5-13.5The [facility] HospitalComment on above: Performed By: #### CBC ####[facility] [address] [address]Dr.Ravin DiorPLT294 103/ukJjsapc223-817Wer [facility] HospitalComment on above:Performed By: #### CBC ####[facility] [address]ldqnv[address] [address]Dr.Ravin DiorRBC4.79 106/ul Normal4.20-5.40The [facility] HospitalComment on above:Performed By: #### CBC ####[facility] [address]xsu[address] [place] [address]Dr. Ravin DiorWBC10.2 103/ulNormal4.0-11.0The [facility] HospitalComment on above: Performed By: #### CBC ####[facility] Kcwmibdaoj[address] [place], [place] [address]Dr.Yilan Vasquez URINE PROFILEon 90-43-2925Saxagsvzu Ql (U)NegativeNormalNEGATIVEZanesville City HospitalComment on above:Performed By: #### DENY LACYRO #### [facility] [address] [place] [address] Dr. Ravin Pate (U)CLEARNormalCLEARZanesville City HospitalComment on above: Performed By: #### JAZ LACYICRO #### [facility] [address] [address] [address] Ravin Johansen (U)LT. YELLOWNormalYELLOWZanesville City HospitalComment on above:Performed By: #### JAZ LACYICRO #### [facility] [address] [place] [address] Dr. Ravin Espinoza micrscopic examination will be performed if indicated. NormalThe [facility] HospitalComment on above:Performed By: #### BAMBI UMICRO #### [facility] [address] [place] [address] Dr. Ravin Leviose Ql (U)NegativeNormalNEGATIVEThe [facility] HospitalComment on above:Performed By: #### EPNELOPER, UMICRO #### [facility] [address] [address] [address] Ravin DiorHemoglobin Ql (U)NegativeNormalNEGToledo Hospital Comment on above:Performed By: #### BAMBI, UMICRO #### [facility] [address] [address] [address] Ravin DiorKetones Ql (U)TRACEAbnormalNEGATIVEThe [facility] HospitalComment on above:Performed By: #### BAMBI, UMICRO #### [facility] [address] [address] [address] Ravin DiorLEUKOCYTESSMALLAbnormalNEGATIVEZanesville City HospitalComment on above:Performed By: #### BAMBI, UMICRO #### [facility] [address] [place] [address] Dr. Ravin DiorNitrite Ql (U)NegativeNormalNEGATIVEZanesville City HospitalComment on above:Performed By: #### BAMBI, UMICRO #### [facility] [address] [address] [address] Ravin DiorpH (U)6.0 [pH]Normal5-9The [facility] HospitalComment on above: Performed By: #### BAMBI, UMICRO #### [facility] [address] [place] [address] Dr. Ravin DiorSPEC GRAVITY1.822Uvhmfi1.005-<=1.025The [facility] HospitalComment on above:Performed By: #### BAMBI, UMICRO #### [facility] [address] [address] [address] Ravin DiorUA PROTEINNegativeNormalNEGATIVE/ TRACEZanesville City Hospital Comment on above:Performed By: #### BAMBI, UMICRO #### [facility] [address] [address] [address] Ravin DiorUR MICRO INDINDICATEDNormalThe [facility] County HospitalComment on above: Performed By: #### BAMBI, UMICRO #### [facility] [address] [address] [address] Ravin DiorUrobilinogen Qn (U)0.2 {Chandler'U}/dLNormal0.2 - 1.0The [facility] HospitalComment on above:Performed By: #### ERURALDA #### [facility] [address] [address] [address] Ravin DiorLACTATE/LACTIC ACIDon 68-75-6166Bjpkdbu [Moles/Vol]1.3 mmol/L Normal0.4-1.9The [facility] HospitalComment on above:Performed By: #### LACT ####[facility] [address] [address]Dr. Ravin DiorLIPASEon 50-89-8629Acpstx [Catalytic activity/Vol]63.0 U/LCritically low73.0-393.0The [facility] HospitalComment on above:Performed By: #### CMP, LIPA #### [facility] [address] [place] [address] Dr. Ravin DiorPROF 14(COMP METB)on 08-52-2691Nknefhl [Mass/Vol]3.4 g/dLNormal 3.4-5.0The [facility] HospitalComment on above:Performed By: #### CMP, LIPA #### [facility] [address] [place] [address] Dr. Ravin DiorAlbumin/Globulin [Mass ratio]0.8 {ratio}NormalThe [facility] HospitalComment on above:Performed By: #### CMP, LIPA #### [facility] [address] [place] [address] Dr. Ravin DiorALP [Catalytic activity/Vol]143 U/LCritically hihd05-085Qwr Protestant Hospitalment on above:Performed By: #### CMP, LIPA #### [facility] [address] [place] [address] Dr. Ravin DoveT [Catalytic activity/Vol]29 U/DOnpdyo43-23Tzv [facility] HospitalComment on above:Performed By: #### CMP, LIPA #### [facility] [address] [address] [address] Ravin DiorAnion gap [Moles/Vol]7.6 mmol/LNormalThe [facility] HospitalComment on above:Performed By: #### CMP, LIPA #### [facility] [address] [address] [address] Ravin DiorAST [Catalytic activity/Vol]39 U/LCritically phni63-53Unv [facility] HospitalComment on above:Performed By: #### CMP, LIPA #### [facility] [address] [address] [address] Ravin DiorBilirubin [Mass/Vol]0.7 mg/dLNormal0.2-1.0The [facility] Comment on above:Performed By: #### CMP, LIPA #### [facility] [address] [address] [address] Ravin DiorCalcium [Mass/Vol]9.1 mg/dLNormal8.5-10.1[facility] Comment on above:Performed By: #### CMP, LIPA #### [facility] [address] [address] [address] Ravin DiorChloride [Moles/Vol]102 mmol/MGueofp68-135Yxo [facility] Comment on above:Performed By: #### CMP, LIPA #### [facility] [address] [address] [address] Ravin DiorCO2 [Moles/Vol]31.1 mmol/FLinswq79.0-32.0The [facility] Comment on above:Performed By: #### CMP, LIPA #### [facility] [address] [address] [address] Ravin DiorCreatinine [Mass/Vol]0.88 mg/dLNormal0.55-1.02The [facility] HospitalComment on above:Performed By: #### CMP, LIPA #### [facility] [address] [address] [address] Ravin StoneGFR-AF TOGOLESE>60Normal>=60The [facility] HospitalComment on above:Performed By: #### CMP, LIPA #### [facility] [address] [address] [address] Ravin Christian-NON AF TOGOLESE>60Normal>=60The [facility] HospitalComment on above:Performed By: #### CMP, LIPA #### [facility] [address] [address] [address] Ravin DiorGlobulin (S) [Mass/Vol]4.5 g/dLNormalThe [facility] HospitalComment on above:Performed By: #### CMP, LIPA #### [facility] [address] [place] [address] Dr. Ravin DiorGlucose [Mass/Vol]100 mg/eFCepnwg87-266DqbZanesville City Hospital Comment on above:Performed By: #### CMP, LIPA #### [facility] [address] [place] [address] Dr. Ravin DiorPotassium [Moles/Vol]3.7 mmol/LNormal3.5-5.1[facility] Comment on above:Performed By: #### CMP, LIPA #### [facility] [address] [place] [address] Dr. Ravin DiorProtein [Mass/Vol]7.9 g/dLNormal6.4-8.2[facility] Comment on above:Performed By: #### CMP, LIPA #### [facility] [address] [place] [address] Dr. Ravin DiorSodium [Moles/Vol]137 mmol/RSnsumd534-706EuzZanesville City Hospital Comment on above:Performed By: #### CMP, LIPA #### [facility] [address] [place] [address] Dr. Ravin DiorUrea nitrogen [Mass/Vol]12.0 mg/dLNormal7.0-18.0The [facility] HospitalComment on above:Performed By: #### CMP, LIPA #### [facility] [address] [place] [address] Dr. Yilan ChangUrea nitrogen/Creatinine [Mass ratio]13.6 mg/mgNoCleveland Clinic Children's Hospital for RehabilitationComment on above:Performed By: #### CMP, LIPA #### [facility] [address] [place] [address] Dr. Ravin Ortega MICROSCOPIC ONLYon 58-88-9421JPLWDLTDEAEP SEENNormalNONE SEENZanesville City HospitalComment on above:Performed By: #### BAMBI UMICRO #### [facility] [address] [address] [address] Ravin Ghosh identified Cx Nom (U)NOT INDICATEDNoCleveland Clinic Children's Hospital for RehabilitationComment on above:Performed By: #### BAMBI UMICRO #### [facility] [address] [place] [address] Dr. Ravin Nelson SEENNormalNONE SEENZanesville City HospitalCombronson south haven hospital on above:Performed By: #### JAZ LACYICRO #### [facility] [address] [place] [address] Dr. Ravin Reynoldsystals LM Nom (Urine sed)NONE SEENNormalNONE SEENZanesville City HospitalComment on above:Performed By: #### BAMBI UMICRO #### [facility] [address] [place] [address] Dr. Ravin Cervantesthelial cells LM Ql (Urine sed)FEWAbnormalNONE SEEN /RAREZanesville City HospitalCombronson south haven hospital on above:Performed By: #### BAMBI UMICRO #### [facility] [address] [place] [address] Dr. Ravin RamírezUSNONE SEENNormalNONE SEENZanesville City HospitalCombronson south haven hospital on above:Performed By: #### BAMBI UMICRO #### [facility] [address] [place] [address] Dr. Ravin Francis SEENAbrmal0-2Zanesville City HospitalComment on above: Performed By: #### BAMBI UMICRO #### [facility] [address] [place] [address] Dr. Ravin Caldwell0-2AbnormalNONE SEENThe [facility] HospitalComment on above: Performed By: #### ALDA LACY #### [facility] [address] [address] [address] Ravin DiorAmbulatory Clinical Summaryon 32-46-9476Bhznmqpjru Clinical Summary{0b-z4-40-w3-f1-7z-6p-8n-8l-42-50-72-53-c8-80-50}CD:[id number] Cleveland Heights Medical CenterGastroenterology Office/Clinic Noteon 07-24-2020 Gastroenterology Office/Clinic NoteChief Complaint [...] course, # 28 cap(s), Refills(s) 0, [id number], cm, 07/24/20 12:03:00 EST, Height/Length Dosing, 95.9, kg, 07/24/20 12:03:00 EST, Weight Dosing metronidazole, 250 mg = 1 tab(s), Oral, TID, X 7 day(s), # 21 tab(s), Refills(s) 0, Pharmacy: [facility]/pharmacy #[id number], 165, cm, 07/24/20 12:03:00 [...] water, # 160 cap(s), Refills(s) 1, Pharmacy: [facility]/pharmacy #[id number], 165, cm, 07/24/20 12:03:00 EST, Height/Length Dosing, 95.9, kg, 07/24/20 12:03:... Orders: pantoprazole, 40 mg = 2 tab(s), Oral, Daily, X 90 day(s), # 180 tab(s), Refills(s) 3, Pharmacy: [facility]/pharmacy #[id number], 165, cm, 07/24/20 12:03:00 EST, Height/Length Dosing, 95.9, kg, 07/24/20 12:03:00 EST, Weight Dosing Follow-up With When Contact Information Isabelle Ramirez MD In 12 months [address] [place] [address]- Additional Instructions: Problem List/Past Medical History Ongoing [...] 12/16/2018 Exercise - Occasional exercise, 12/16/2018 Other Kbousioc-0-2 cups blair;y, 12/16/2018 Substance Abuse - Denies Substance Abuse, 12/16/2018 Tobacco Never (less than 100 in lifetime) Tobacco Use:., 07/24/2020 Never (less than 100 in lifetime) Tobacco Use:. Never Smokeless Tobacco Use:., 02/01/2019[facility] HospitalComment on above:Result Comment: Electronically Signed By: Taylor Mccauley MD, Isabelle\.br\Date and Time Signed: 07/24/20 13:13 ESTAuth for Release of Medical Recordson 13-29-9261Vurw for Release of Medical [id number]#1.00CD:127 [facility] HospitalPatient Letter FTon [id number] Letter [facility] January 24, 2020 RADHA G[place] [address] RADHA GUTIÉRREZ 1945 Dear Radha, This is a reminder that you are due for an appointment with Dr. Garland or Dr. Mccauley. Please call [facility] at [phone] to schedule an appointment at your earliest convenience. Thank you, [facility] CenterNoMetroHealth [facility] Center Vital Signs Date TimeVital SignValuePerforming MflnqqiwpIzwrclua39-00-9623 08:55-0500Body ltvhol242.1 cmPamela Luís DRIVER MANAGER-C Work Phone: [phone]11-06-2025 08:55-0500 Body mass index (BMI) [Ratio]33 kg/j3Cgcmpw Luís DRIVER MANAGER-C Work Phone: [phone]11-06-2025 08:55-0500 Body rmbbposkhxn18 [degF]Heaven Staley DRIVER MANAGER-C Work Phone: [phone]11-06-2025 08:55-0500 Body pugzlx65.03 kgPajima Luís DRIVER MANAGER-C Work Phone: [phone]11-06-2025 08:55-0500 Diastolic blood maxpjgke99 mm[Hg]Heaven Staley DRIVER MANAGER-C Work Phone: [phone]11-06-2025 08:55-0500 Heart rate70 /minPajima Luís DRIVER MANAGER-C Work Phone: [phone]11-06-2025 08:55-0500 Respiratory rate18 /minPajima Luís DRIVER MANAGER-C Work Phone: [phone]11-06-2025 08:55-0500 SaO2% (BldA) [Mass fraction]97 %Heaven Staley DRIVER MANAGERHenriettaC Work Phone: [facility]11-06-2025 08:55-0500 Systolic blood uzxqvbob360 mm[Hg]Heaven Staley DRIVER MANAGER-C Work Phone: [facility]05-22-2025 13:15-0400 Body nmtcke666.1 cmWay[facility] Hospital05-22-2025 13:15-0400Body mass index (BMI) [Ratio]32.3 kg/m5UhqoyrynjWayne Hospital05-22-2025 13:15-0400Body gyhayrxczfa42.5 [degF][facility]05-22-2025 13:15-0400Body yuqxgd60.11 kgWay[facility] Hospital05-22-2025 13:15-0400Diastolic blood cpuxrodk69 mm[Hg][facility] 10-19-2024 13:15-0400Heart rate75 /[facility] 10-19-2024 13:15-0400Respiratory rate18 /[facility] 10-19-2024 13:15-3775GeC2% (BldA) [Mass fraction]97 %[facility]05-22-2025 13:15-0400Systolic blood husikcrr23 mm[Hg][facility]02-27-2025 10:30-0500Diastolic blood ljyfgyga19 mm[Hg][facility]02-27-2025 10:30-0500Systolic blood nqqclynh19 mm[Hg] [facility]02-27-2025 10:13-0500Body .1 cm [facility]02-27-2025 10:13-0500Body mass index (BMI) [Ratio]31.3 kg/i7XwnkiarfuWayne Hospital02-27-2025 10:13-0500Body exsvoy65.33 kgWay[facility] Hospital02-27-2025 10:13-0500Heart rate85 /[facility]02-27-2025 10:13-0500Respiratory rate16 /[facility]02-27-2025 10:13-2168CbX5% (BldA) [Mass fraction]98 %[facility] Encounters Encounter DateEncounter TypeCare ProviderFacilityStart: 04-05-2025 End: 23-14-3167ibngllosexVwijgg Sue Cramer DRIVER MANAGER-C Work Phone: -[facility]ph[facility] ClydeStart: 04-05-2025 End: 33-75-5185Eyyzafu encounter procedureJuliana Landeros MDST. [facility] [place] Work Phone: Start: 04-03-2025 End: 48-46-9401iiboacpzsuXMHYSamaritan North Health Centertart: 62-70-9644nyzzzjqbwxPOKYSamaritan North Health Centertart: 24-72-6458loeencdrapEXIPSamaritan North Health Centertart: 60-38-5745mwgcerjfweRSEXSamaritan North Health Centertart: 01-15-2025 End: 56-33-8185huoddqkcrvIjceqpu Vytautas Giedraitis MDFacility:PM [place] Start: 33-95-4951cvpvftbkveZYRHI [facility] Medical Centertart: 12-11-2024 End: 17-30-0486scyjqclbwuAebfkdw Vytautas Giedraitis MDFacility:[facility] [place] Start: 90-44-4596hkzmzevpgjZSZWSamaritan North Health Centertart: 84-60-5205eemrmwhktdQDOQSamaritan North Health Centertart: 11-20-2024 End: 80-80-3877gzbkiidcheDwkdwto Vytautas Giedraitis MDFacility:PM [place] Start: 34-91-2992wkilydmsnlIXWGSamaritan North Health Centertart: 10-19-2024 End: 01-97-9683bsnacxqjtkBwpkctwppKettering Health Work Phone: Start: 10-19-2024 End: 10-88-7332Dnhiado encounter procedureBlue Ridge Regional Hospitaldulce Physician [facility] Nephrology Kevin Work Phone: Start: 91-81-3866Jvg-patient / Non-visitAtrium Health Southpark Physician GroupWhitman Hospital And Medical Center Professional Co Work Phone: Start: 10-28-5870xkbrkjtzswAAYASamaritan North Health Centertart: 08-18-2024 End: 14-88-1675burajqgbtmRWEN SNIDERUnCincinnati VA Medical Centertart: 01-71-9456Vbq-patient / Non-visitAtrium Health Southpark Physician GroupWhitman Hospital And Medical Center Professional Co Work Phone: Start: 24-48-4829rwptuhjxonOZIYSamaritan North Health Centertart: 08-14-2024 End: 84-15-7680vblkjpymixZNEBSamaritan North Health Centertart: 06-26-2842kzqandqoijOMKMKettering Health Washington Townshiptart: 07-27-2024 End: 19-26-7101agckmyrayiMztmibkpjMercy Health [facility] Work Phone: Start: 07-27-2024 End: 39-56-2287Tdvibwv encounter procedureAtrium Health Southpark Physician Group-[facility] Nephrology Kevin Work Phone: Start: 33-91-4372uloctwnntxEPPVSamaritan North Health Centertart: 25-05-5936teuczfveplZKEWSamaritan North Health Centertart: 88-44-4633jwkbskstibRFYOSamaritan North Health Centertart: 95-00-7664qpsxbrtmgySPITUniversity Hospitals [facility] Start: 56-32-7592ktjujrycprPOOBSamaritan North Health Centertart: 60-37-8441nmhphsoralNSRCSamaritan North Health Centertart: 12-14-9842ouvzybfdfyKKXFSamaritan North Health Centertart: 50-19-5488Rsjwanmgb for preprocedural cardiovascular examinationBlanchard Valley Health System Blanchard Valley Hospitaltart: 67-10-6414linkgtpycaFSWC [facility] CenterStart: 01-17-2024 End: 02-82-4376irzstuoqcrVMUCB CARROLLNot AvailableStart: 01-11-2024 End: 67-04-8457nkxhigssuvOWAQQGKZSGM HASSETTNot AvailableStart: 12-28-2023 End: 57-68-2520Rjvnhpsqb Eriusan ReganBrattleboro Memorial HospitalMedica Physicians Cardiology Start: 12-20-2023 End: 72-14-2019skzxdmzkpvPESSRJJGWVB HASSETTNot AvailableStart: 12-06-2023 End: 26-11-7268MouqptIydi [facility]ona [facility] Physicians CardiologyComment on above:Med RefillStart: 11-11-2023 End: 41-83-4918epdghanytjDRAZEQ BENEDICTRoxane AvailableStart: 09-10-2023 End: 89-30-4825SsirvsGttxkxhbAnamika Erwin APRN-SENIOR MANAGING DIRECTOR Work Phone: [facility]icians CardiologyComment on above:Med RefillStart: 42-66-6026XydrpmUhlyiuSolis Kowalski MD Work Phone: [facility]icians CardiologyComment on above:Med RefillStart: 31-88-8667NcgbcfLmggmvmtAnamika Erwin APRN-SENIOR MANAGING DIRECTOR Work Phone: [facility]ca Physicians CardiologyComment on above:Med RefillStart: 09-22-2022 End: 98-58-3144klxkhxtwyfGDLRZB ROBINMERFacility:D2Getxe: 07-23-2022 End: 87-95-9911atspthazpkBCFYQD CRAMERFacility:B3Zsbfo: 05-17-2022 End: 85-03-8247qbdipaqskyJNUAXR CRAMERFacility:Y2Iawdz: 03-26-2022 End: 15-78-4194cbztmutvitRW JAYLON S JOHNSON .Facility:A6Bmzgp: 12-24-2021 End: 05-95-4758soexmstducIY JAYLON S JOHNSON .Facility:Q6Ycofs: 11-04-2021 End: 07-21-9876avsdiocqqrIO JAYLON S JOHNSON .Facility:H1 Plan of Treatment DateCare ActivityDetailUnm Carrie Tingley HospitalhorStart: 73-68-6380Xqvkvpdck vaccinationInfluenza VaccineFostoria City Hospital SystemStart: 17-19-2873Unzyv BMI ScreeningAdult BMI ScreeningProTwin City Hospital SystemStart: 77-09-3744Hvkmotc ScreeningTobacco ScreeningProTwin City Hospital SystemStart: 63-37-0829TXEXL-19 Vaccine ( season)COVID-19 Vaccine ()[facility] SystemStart: 16-62-1910Xdkckbbks vaccinationInfluenza VaccineProTwin City Hospital SystemStart: 90-32-9300pbdwozmlflMpjljuxiugAnkkzzzc:L7Dsyat: 69-46-6644Uoho Risk Screening Fall Risk ScreeningFostoria City Hospital SystemStart: 93-56-8578Jzzoihbotjgptn of varicella zoster vaccineZoster (Shingles) Vaccine (1 of 2)[facility] SystemStart: 85-86-7155ZCpY,Tdap and Td Vaccines (1 - Tdap)DTaP,Tdap and Td Vaccines (1 - Tdap)[facility] SystemStart: 47-16-2000Kfyci BMI Follow Up PlanAdult BMI Follow Up PlanFostoria City Hospital SystemStart: 61-96-5504Mzvhodqwbc ScreeningDepression ScreeningFostoria City Hospital SystemStart: 02-22-1946Medicare Annual Wellness VisitMedicare Annual Wellness VisitWilson Street Hospital End: 06-41-9700Bcqep metabolic 2000 panel - Serum or PlasmaBasic Metabolic Panel Lab Routine Essential hypertension 1 Occurrences starting 06/08/2023 until 01/2025[facility] Work Phone: Comment on above:1 Occurrences starting 06/08/2023 until 06/08/2024Renal function 1999 panel - Serum or PlasmaWayne HospitalRenal function 1999 panel - Serum or PlasmaWayne HospitalRenal function 1999 panel - Serum or PlasmaWayne HospitalUS Kidney - bilateralKindred Hospital - [facility] Immunizations Immunization DateImmunizationNotesCare UewthjwtIuwwbyvy57-09-0036kdedpitpf virus vaccine, unspecified formulationMischell Yaima SERVICE OR WORK DISPATCHER CHIEF-SENIOR MANAGING DIRECTOR Work Phone: [facility] Payers DatePayer CategoryPayerPolicy [id number] Health [id number] MedicareHUMANA MEDICARE HUMANA MEDICARE - [place] RESIDENT [id number] 2013-Present [phone] [address] [address] [place] [address] [id number] [id number] 1946 [id number] 2.16.840.1.933696.3.57[id number] 2.16.840.1.031045.3.57[id number] 2.16.840.1.939228.3.57[id number] 2.16.840.1.198000.3.57[id number] 2.16.840.1.387305.3.57[id number] 2.16.840.1.820531.3.57[id number] 2.16.840.1.864244.3.57[id number] 2.16.840.1.165982.3.57[id number] 2.16.840.1.453604.3.579.[id number] 2.16.840.1.278919.3.57[id number] 2.16.840.1.342805.3.57[id number] 2..0.1.004479.3.57[id number] 2..840.1.341301.3.57[id number] 2.840.1.11[id number] Social History DateTypeDetailFacilityStart: 05-26-2022 End: 30-84-2252Xbqfsjn smoking status NHISNever smoked tobaccoFostoria City Hospital SystemStart: 59-40-2580Vpnsypm use and exposureSmokeless tobacco non-user [facility] SystemStart: 19-74-5181Ffrlcdq intakeCurrent non-drinker of alcohol (finding)[facility] SystemStart: 07-04-2020 End: 40-29-4115Qjawpmc of Social functionFostoria City Hospital SystemStart: 07-04-2020 End: 79-49-4925Hazuiol use panelFostoria City Hospital SystemHousing Instability UnknownProTwin City Hospital SystemStart: 36-70-0546Gdp Assigned At BirthNot on file [facility] SystemStart: 07-27-2024 End: 33-47-4491NlrFdxfsf (finding)[facility] Systemtart: 95-99-0770Dzm Assigned At BirthFeLima Memorial Hospital Medical Equipment Procedure CodeEquipment CodeEquipment Original TextEquipment IdentifierDatesMesh [id number] 3d Rect Plstr Clgn Symbotex 2 Sd Comp Mfl Babsr Rpl [id number] - Sna - [id number]: 58-49-8831Rkv Clsr 30fr Watchman 30mm - [id number]: 10-28-2018 Clinical Notes 12-24-2021 to 04-03-2025 Note Date & HviwFqnvPxhoalao39-53-8244 NoteUT Electrophysiology Consult Note Reason for visit: Afib 04/03/2025 Patient is doing well and last echocardiogram done on 04/03/2024 shows normal EF of 50 to 55%. She is optimally BiV paced and in permanent AF. She is doing well for her age. Review of Systems Constitutional: Negative. 03/21/24 Patient here for 3 mo follow up persistent afib, CHF, and hypertension. She is now 4 mo s/p AV node ablation on 11/01/2023. She is 3 weeks s/p back surgery. [...] side. 03/23/23 HPI: Radha Gutiérrez is a 79 y.o. year old with past medical history of HFrEF with EF of 35% as per an echocardiogram in May 2022, nonobstructive coronary artery disease as per cath on 01/05/2023 who previously had undergone a Watchman procedure in 2019 due to GI bleed. [facility] She was initially seen [...] (CMS/HCC) Chronic kidney disease Hypertension Sleep apnea PSH: Past Surgical History: Procedure Laterality Date HERNIA REPAIR 05/2022 SH: Social Drivers of Health Tobacco Use: Low Risk (04/03/2025) Patient History Smoking Tobacco Use: Never Smokeless Tobacco Use: Never Passive Exposure: Not on file Alcohol Use: Not on file Financial Resource Strain: Not on file Food Insecurity: Unknown (08/24/2022) Received from [employer] Hunger Screening Within the past 12 months we worried whether our food would run out before we got money to buy more.: Never True Food Insecurity - Inability: Not on file Transportation Needs: Not on [...] Not on file Utilities: Not on file Health Literacy: Not on file Allergies: Allergies Allergen Reactions Codeine Other reaction(s): Intolerance-unknown Lisinopril Other reaction(s): Dry cough Lyrica [Pregabalin] Other Weight: 90.7kg Visit Vitals Pulse 63 Ht 1.651 m (5' 5 ) Wt 88.9 kg (196 lb) SpO2 96% BMI 32.62 kg/m??? OB Status Postmenopausal Smoking Status Never BSA 2.02 m??? Meds: Current Outpatient Medications on File [...] if needed. furosemide (Lasix) 40 mg tablet TAKE 1 TABLET (40 MG) BY MOUTH ONCE DAILY DIRECTED. 90 tablet 3 losartan (more content not included)...[facility] 08-18-2024 NoteSUBJECTIVE Reason for Visit: Radha Gutiérrez is a 79 y.o. year old female patient being seen for follow-up visit. HPI: Radha Gutiérrez is a 79 y.o. year old female with past medical history of persistent A-fib, CHF, hypertension, Watchman device successfully placed by Dr. Hines 2018, implantation of Biventricular ICD ([employer]) 07/05/2023, status post AV node ablation 11/01/[address] Madden. 08/18/2024 office visit: The patient was seen and evaluated in the office today. Overall, she reports feeling well. Abnormal kidney function was incidentally noted on presurgical labs for a planned back surgery, including a potassium of 5.8 and creatinine of 1.62. She has since established care with a commercial portfolio manager, whom she saw for the first time [...] heart failure (CMS/HCC) CHF (congestive heart failure) ([facility]/HCC) Left bundle branch block (LBBB) Obstructive sleep [...] mg, oral, Nightly sp (more content not included)...[facility]07-30-2024 Miscellaneous Notes* Telephone Encounter - Vera Spears - 12/28/2023 9:01 AM EDT Rec'd letter from patient stating that she no longer sees [facility], uses a doctor in [place]. [facility] encounter Note* Telephone Encounter - Vera Spears - 12/28/2023 9:01 AM EDT Rec'd letter from patient stating that she no longer sees [facility], uses a doctor in [place]. [facility]07-08-2024 Miscellaneous Notes* Telephone Encounter - Sonia Tenorio RN - 12/06/2023 10:37 AM EDT Last OV 06/15/22.slm * Telephone Encounter - Vera Spears - 12/06/2023 10:37 AM EDT T/C to pt to sched [facility] f/u appt. No answer and mailbox is full. [facility]07-[facility] Telephone encounter Note* Telephone Encounter - Sonia Tenorio RN - 12/06/2023 10:37 AM EDT Last OV 06/15/22.slm [facility]07-08-2024 Telephone encounter Note* Telephone Encounter - Vera Spears - 12/06/2023 10:37 AM EDT T/C to pt to sched [facility] f/u appt. No answer and mailbox is full. [facility]04-12-2024 Miscellaneous Notes* Telephone Encounter - Yvette Oneill RN - 09/10/2023 12:49 AM EDT Please sign and route if you agree. Thank you HODAN 06/22/22 Pt needs annual appt schedule please, thank you. Letter mailed. * Telephone Encounter - Vera Spears - 09/10/2023 12:49 AM EDT LMOM for the patient to call and schedule their next appointment with [facility]* Telephone Encounter - Yvette Oneill RN - 09/10/2023 12:49 AM EDT Please sign and route if you agree. Thank you HODAN 06/22/22 Pt needs annual appt schedule please, thank you. Letter mailed. [facility]04-12-2024 Telephone encounter Note* Telephone Encounter - Vera Regan - 09/10/2023 12:49 AM EDT LMOM for the patient to call and schedule their next appointment with [facility]. [facility]01-12-2024 Miscellaneous Notes* Telephone Encounter - Lisa Meraz RN - 06/11/2023 9:24 AM EST Last OV 06/15/22, sent to [facility] front counter attendant for yearly visit to be scheduled. CMP 06/22/22. BMP ordered from refill encounter 06/08/23. Letter has been mailed, but will attempt to send letter via [facility] as last login was 05/07/23. [facility] Tele[facility] encounter Note* Telephone Encounter - Lisa Meraz RN - 06/11/2023 9:24 AM EST Last OV 06/15/22, sent to [facility] front counter attendant for yearly visit to be scheduled. CMP 06/22/22. BMP ordered from refill encounter 06/08/23. Letter has been mailed, but will attempt to send letter via [facility] as last login was 05/07/23. [facility] CenterRefurrl [id number] NotePAIN MANAGEMENT CONSULTATION CONSULTATION DATE: 07/23/2022 TO: [...] three months' time or sooner if needed.[id number] NoteCONSULTATION CONSULTATION DATE: 03/26/2022 This is a [...] patient agrees with the plan of care.[facility] [id number] NoteCONSULTATION PROCEDURE DATE: 12/24/2021 PREOPERATIVE DIAGNOSIS: Right [...] tolerated the procedure well with no complications.[facility] [id number] NoteCONSULTATION CONSULTATION DATE: 12/24/2021 HISTORY OF PRESENT [...] in three months' time, unless otherwise indicated.[facility]* Diagnosis Essential hypertension- Primary Unspecified essential hypertension [facility] Diagnosis Chronic systolic CHF (congestive heart failure) ([facility]) [facility]* Diagnosis Onset Date Resolution Status Admit Date Atrial fibrillation acuteFebruary 2024 10:10amChronic systolic (congestive) heart failureacute July 27, 2024 10:10amCKD (chronic kidney disease) stage 3, GFR 30-59 ml/minacuteFebruary 2024 10:10amHyperlipidemiaacuteFebruary 2024 10:10amHypertensive chronic kidney disease with stage 1 through stage 4 chronic kiacuteFebruary 2024 10:10amIron deficiencyacuteFebruary 2024 10:10am [facility] Work Phone: Evaluation note* Diagnosis Onset Date Resolution Status Admit Date Atrial fibrillation acuteMay 2024 12:46pmChronic systolic (congestive) heart failureacuteMay 2024 12:46pmCKD (chronic kidney disease) stage 3, GFR 30-59 ml/minacuteMay 2024 12:46pmHyperlipidemiaacuteMay 2024 12:46pmHypertensive chronic kidney disease with stage 1 through stage 4 chronic kiacuteMay 2024 12:46pmIron deficiencyacuteMay 2024 12:46pm [facility] Work Phone: Evaluation note* Diagnosis Onset Date Resolution Status Admit Date Atrial fibrillation acuteNov2024 8:50amChronic systolic (congestive) heart failureacute April 05, 2025 8:50amCKD (chronic kidney disease) stage 3, GFR 30-59 ml/min acuteNov2024 8:50amHyperlipidemiaacuteNovember 2024 8:50am Hypertensive chronic kidney disease with stage 1 through stage 4 chronic kiacute April 05, 2025 8:50amHyperuricemiaacuteNov2024 8:50amIron deficiencyacuteNov2024 8:50amSecondary hyperparathyroidismacute April 05, 2025 8:50am [facility] Work Phone: InstructionsNot on filedocumented in this encounter [facility] SystemInstructionsNot on filedocumented in this encounter [facility]InstructionsNot on filedocumented in this encounter [facility] SystemInstructionsNot on filedocumented in this encounter [facility] SystemReason for referral (narrative)No reason for referral information availableMedina Hospital Work Phone: Summary Purpose Family History No Family History [...] Iron deficiency October 19, 2024 12:46 pm Chief Complaint Admit Date renal 6 month f/u April 05, 2025 8 :50am Reason for Visit Admit Date Atrial fibrillation April 05, 2025 8 :50am Chronic systolic (congestive) heart fail ure April 05, 2025 8:50am CKD (chronic kidney disease) stage 3, GF R 30-59 ml/min April 05, 2025 8:50am Hyperlipidemia April 05, 2025 8 :50am Hypertensive chronic kidney disease with stage 1 through stage 4 chronic ki April 05, 2025 8:50am Hyperuricemia April 05, 2025 8 :50am Iron deficiency April 05, 2025 8 :50am Secondary hyperparathyroidism April 052024 8:50am Additional Source Comments INFORMATION SOURCE (unrecogn ized section and content) DATE CREATED AUTHOR 07/25/[address] [facility] DATE CREATED AUTHOR AUTHOR'S ORGANIZ ATION 10/12/2022 [facility] DATE CREATED AUTHOR AUTHOR'S ORGANIZ ATION 01/17/2024 [facility] EPIC DATE CREATED AUTHOR AUTHOR'S ORGANIZ ATION 01/20/2025 [facility] DATE CREATED AUTHOR AUTHOR'S ORGANIZ ATION 04/05/2025 [facility] Reason for Visit (unrecogniz ed section and content) ReasonCommentsMed RefillReasonOnset DateCommentsMed Fvsfid0912/06/2023 Care Teams (unrecognized sec tion and content) Team Status: Active Member Role Status Dates Heaven Staley DRIVER MANAGER-C Primary Care Provider Active Team Status: Active Member Role Status Dates Heaven Staley DRIVER MANAGER-C Primary Care Provider Active Start: August 18, 2024 Julianacleo Valerior , BUNNYttending ProviderActiveStart: August 18, 2024 Team Status: Active Member Role Status Dates Heaven Staley DRIVER MANAGER-C Primary Care Provider Active Start: October 09, 2024 Juliana Leti , MDAttending ProviderActiveStart: October 09, 2024 Team Status: Inactive Member Role Status Dates Heaven Staley DRIVER MANAGER-C Primary Care Provider Active Start: October 19, 2024 End: October 19bdul Leti , MDAttending ProviderActiveStart: October 19, 2024 End: October 19, 2024Team MemberRelationshipSpecialtyStart DateEnd Date Heaven Staley APRN-CNP [facility] [facility] [place] [address] PCP - GeneralFamily Medicine10/30/21Team MemberRelationshipSpecialtyStart DateEnd Date Heaven Staley APRN-CNP [address] [facility], [place] [address] [facility]/30/21Team MemberRelationshipSpecialtyStart DateEnd Date Heaven Staley SERVICE OR WORK DISPATCHER CHIEF-SENIOR MANAGING DIRECTOR [address] [facility], [place] [address] PCP - [facility]10/30/21Team MemberRelationshipSpecialtyStart DateEnd Date Heaven Staley, SERVICE OR WORK DISPATCHER CHIEF-SENIOR MANAGING DIRECTOR [address] [facility], [place] [address] PCP - [facility]10/30/21 Team Status: Inactive Member Role Status Dates Juliana Landeros MD Attending Provider Active Start : July 27, 2024 End: July 27, 2024Heaven Staley NP-CPrimary Care Provider, Referring ProviderActiveStart: July 27, 2024 End: July 27, 2024 Team Status: Active Member Role/Relationship Status Dates JAZLYN RichC Primary Care Provider Active Team Status: Inactive Member Role/Relationship Status Dates WANDA Rich Primary Care Provider Active Start: April 05, 2025 End: April 05Philip Cullenending ProviderActiveStart: April 05, 2025 End: April 05, 2025 Goals (unrecognized section and content) Goals may [...] BE BASED ON THE PRIMARY CLINICAL RECORDS. [facility]. provides no warranty or guarantee of the accuracy or completeness of information in this document.
--- NOTE | 2025-05-03 12:12 | PM.CN ---
Consult Note: HPI Data of Consult Patient: known to practice within the last 3 years Consult date: 01/25/25 Requesting Physician: Carmen Ramey NP Primary Care Provider: FIDELINA STALEY Consult Narrative Reason for consult: neck and low back/BLE pain Narrative: aRdha Cornell a pleasant 79 year old female presents for evaluation and management of chronic low back pain and neck pain. Pain today 6/10 throbbing burning increased with all activity and decreased with lying down and heat. recently underwent cervical CT with results below. Patient has found moderate benefit to current medication regimen. January 2024 underwent L3-S1 fusion and decompression at L3,4,[address] Ramírez but continues to note moderate to severe low back and BLE pain. Patient continues to have moderate to severe low back and right low pain impacting sleep, social life, ADLS, and ability to stand and walk. RENATO 60%. denies falls or injury since last visit. continues to utilize cane. pt pending additional imaging of lumbar spine with Dr Ramírez prior approval of scs trial. cc:: CC: Carmen Ramey NP Review of Systems ROS Musculoskeletal Reports: back pain, neck pain and extremity pain PFSH PFS Medical History Rectocele ?N81.6 - Rectocele (ICD-10) Bruising ?T14.8XXA - Other injury of unspecified body region, initial encounter (ICD-10) Anemia ?D64.9 - Anemia, unspecified (ICD-10) Upper back pain ?M54.9 - Dorsalgia, unspecified (ICD-10) Neck pain ?M54.2 - Cervicalgia (ICD-10) Low back pain ?M54.50 - Low back pain, unspecified (ICD-10) Fibromyalgia ?M79.7 - Fibromyalgia (ICD-10) Heartburn ?R12 - Heartburn (ICD-10) Acid reflux ?K21.9 - Gastro-esophageal reflux disease without esophagitis (ICD-10) Sleep apnea ?G47.30 - Sleep apnea, unspecified (ICD-10) Atrial fibrillation ?I48.91 - Unspecified atrial fibrillation (ICD-10) Surgical History S/P lumbar spine operation ?Z98.890 - Other specified postprocedural states (ICD-10) S/P shoulder surgery ?Z98.890 - Other specified postprocedural states (ICD-10) History of bariatric surgery ?Z98.84 - Bariatric surgery status (ICD-10) H/O heart surgery ?Z98.890 - Other specified postprocedural states (ICD-10) H/O: hysterectomy ?Z90.710 - Acquired absence of both cervix and uterus (ICD-10) Hx of cholecystectomy ?Z90.49 - Acquired absence of other specified parts of digestive tract (ICD-10) Meds Home Medications and Allergies Home Medications ?Medication ?Instructions ?Recorded ?Confirmed ?Type cholecalciferol (vitamin D3) 125 5,000 unit PO DAILY 11/03/22 01/15/25 History mcg (5,000 unit) capsule furosemide 40 mg tablet (Lasix) 40 mg PO BID 11/03/22 01/15/25 History krill 2 cap PO DAILY 11/03/22 01/15/25 History bvd-nf9-pks-bme-fg1-lmx-astax 1,500 mg-165 mg-67.5 mg capsule losartan 25 mg tablet 25 mg PO DAILY 11/03/22 01/15/25 History metoprolol succinate 25 mg 12.5 mg PO BID 11/03/22 01/15/25 History tablet,extended release 24 hr multivitamin 1 tab PO DAILY 11/03/22 01/15/25 History pantoprazole 40 mg tablet,delayed 40 mg PO BID 11/03/22 01/15/25 History release (Protonix) pramipexole 1 mg tablet (Mirapex) 1 mg PO DAILY 11/03/22 01/15/25 History trazodone 50 mg tablet 50 mg PO DAILY 11/03/22 01/15/25 History vitamin B complex 1 cap PO DAILY 11/03/22 01/15/25 History naloxone 4 mg/actuation nasal 4 mg intranasal Q3M PRN opioid 02/11/23 01/15/25 Rx spray (Narcan) overdose #2 ea oxycodone-acetaminophen 5 mg-325 1 tab PO .BID-TID PRN pain #75 tabs 10/11/24 01/15/25 Rx mg tablet (Percocet) baclofen 10 mg tablet 10 mg PO BID PRN muscle spasm #60 11/09/24 01/15/25 Rx tabs diphenhydramine HCl 25 mg capsule 25 mg PO Q8H PRN allergy symptoms 11/20/24 01/15/25 History (Benadryl) oxycodone-acetaminophen 5 mg-325 1 tab PO TID PRN pain #75 tabs 01/25/25 Rx mg tablet (Percocet) oxycodone-acetaminophen 5 mg-325 See Rx Instructions .Route 03/15/25 Rx mg tablet (Percocet) .COMPLEX PRN pain #75 tabs oxycodone-acetaminophen 5 mg-325 1 tab PO TID PRN pain #75 tabs 04/18/25 Rx mg tablet (Percocet) baclofen 10 mg tablet See Rx Instructions .Route 04/30/25 Rx .COMPLEX #60 tabs Allergies Allergy/AdvReac Type Severity Reaction Status Date / Time codeine Allergy Mild Hives Verified 01/15/25 09:22 pregabalin (From Lyrica) Allergy Shakiness Verified 01/15/25 09:22 Exam Constitutional Documenting provider has reviewed patient's vital signs: yes Common normals: no apparent distress, oriented x3 and alert General appearance: cooperative HENMA Common normals: normocephalic, hearing grossly normal bilaterally and moist oral mucous membranes Head and scalp: normocephalic Eye Common normals: PERRL Pupil: PERRL Neck & C-Spine Common normals: full ROM General: normal visual inspection Cervical spine: cervical ROM abnormal; no pain with cervical ROM and no cervical spine tenderness Other: strength 5/5 in BUE sensation intact BUE Chest Common normals: inspection of chest normal Respiratory Common normals: normal respiratory effort, no retractions and no use of accessory muscles Back & Pelvis Lumbar spine/lower back: pain with ROM, lumbar spinal tenderness and straight leg raise negative bilaterally Other: strength 5/5 in BLE decreased sensation bilateral L5/S1 Neuro Common normals: oriented x3 Sensorium/orientation: alert Psych Common normals: mental status grossly normal, thought process normal, cooperative, affect normal, speech normal and activity/motor behavior normal Speech: normal speech Thought process: normal thought process Results Additional Findings Additional findings: If on a controlled substance or opioids, I have checked an [place]AR[place] report on this patient and there are no aberrancies noted in the prescribing history.??If on a controlled substance or opioid a drug screen was completed and reviewed within the last year, and if there has not been a drug screen completed we ordered one today to monitor higher risk, state monitored pain medication use. As part of providing excellent, safe, comprehensive care, the following was completed at our patient's visit: 1. A medication reconciliation and review to ensure accurate knowledge of current/active medications, including asking our patients to inform us about any bldy-arx-logwlgm medications or herbal remedies/nutritional supplements/alternative remedies. 2. A review to specifically ensure our patients have had annual screening for screening for depression, screening for tobacco use, and screening for unhealthy alcohol use. For concerning screenings had a discussion with the patient, provided patient education, and recommended follow-up with primary care provider when appropriate. If patient noted with a risk of falling, they received education on strength, gait, and balance training to prevent future risk of falling. Portions of this note may have been carried over from the previous visit and updated as appropriate. Please note this office utilizes paper charting in addition to the electronic medical record. A list of current medications, vitals, and PMH is available there as the clinical staff outside of myself do not have access to [employer] charting during the clinic day operations. As part of providing quality comprehensive care the current medications, vitals, and PMH were reviewed in the paper chart. Assessment and Plan Assessment and Plan (1) Failed back syndrome: Assessment and Plan: The patient has had over 3 months of moderate to severe low back and BLE pain with functional impairment and inadequate response to conservative care including NSAIDS (unless there are contraindication such as concurrent blood thinners), multiple oral or topical pain medications, and home exercise program/physical therapy.? Patient has completed >6 weeks of guided home exercise program and/or formal physical therapy program without relief of their symptoms.? The Oswestry Disability Index was completed, and the patient scored a 60%.? The patient noted the following:?? moderate to severe pain impacting ADLs, sitting, standing, sleeping, social life, travel (2) Cervical radiculopathy: Assessment and Plan: 01/15/25 right C5/6 C6/7 TFESI >50% improvement ongoing (3) Chronic prescription opiate use: Assessment and Plan: I feel these medications are improving the patient's quality of life and allow them to tolerate activities of daily living as well as participate in recreational activity.? The patient does not report intolerable side effects. The patient is NOT opioid naive and non-pharmacologic and non-opioid treatment has failed to significantly relieve the patient's pain and improve functionality. The patient has a diagnosis that is related to a somatic or visceral pain etiology. ? ?? I reviewed with the patient the potential risks and side effects with the use of? opioid medications including but not limited to respiratory depression,? sedation, and even . Within the last 12 months I have verified the patient has access to naloxone should? these effects occur. The patient was advised to let? their family know they had Naloxone in case they would need to administer? the medication. I advised the patient to avoid the use of any other? sedation substances including alcohol, THC, and benzodiazepines while? taking opioid medications due to the risk of compounding side effects and? detrimental outcomes. within the last 12 months I have reviewed the FIBER PRODUCT CUTTING MACHINE OPERATOR, pain treatment agreement and urine drug screen.? ?? A drug screen was completed within the last year, and no aberrancies were noted regarding their use of controlled substances. The patient understands they are subject to the terms and conditions of the pain contract that they have signed. ? ?? I have checked an [place]AR[place] report on this patient today and there are no aberrancies noted in the prescribing history.? (4) Right shoulder pain: Assessment and Plan: recent injury at work, notes improvement in pain. declining PT. defer additional imaging Plan increase Percocet 5-325mg tid prn moderate to severe pain 90 tabs/month, risks vs benefits reviewed. pt noting moderate relief for 4 hours with each dose but having significant daytime pain with activity, working, and housework continue baclofen 5-10mg bid prn pain/spasms continue f/u with NS as planned f/u 1-2 months to evaluate plan of care
== END 2025-05-03 11:31 | disposition home or self-care (01) ==
LOC: PM 11:30
PROVIDERS: PCP Nurse Practitioner Family; Visit Provider Nurse Practitioner
DX: M96.1 Postlaminectomy syndrome, not elsewhere classified (principal); M54.12 Radiculopathy, cervical region; Z79.891 Long term (current) use of opiate analgesic; M25.511 Pain in right shoulder
CPT/HCPCS: G0463